=== PATIENT | female | born 1935 | race Caucasian/White ===

== ENCOUNTER → 2017-09-15 16:01 | Outpatient (CLI) | payer MEDICARE, OTHER, SELFPAY | PROVIDERS: Family Provider Family Medicine; PCP Family Medicine; Visit Provider Family Medicine | DX: J02.9 Acute pharyngitis, unspecified (principal) | CPT/HCPCS: 87070; 87077; 87186 ==

== ENCOUNTER 2018-01-16 21:08 | Inpatient (IN) | payer MEDICARE, OTHER, SELFPAY ==
[2018-01-16 21:09] VITALS: BP 222/70; PULSE 69; RESP 18; TEMP 36.8; O2SAT 96; BMI 33.0
--- NOTE | 2018-01-16 21:14 | EKG12_ITS ---
Test Reason : CP Blood Pressure : / mmHG Vent. Rate : 070 BPM Atrial Rate : 070 BPM P-R Int : 150 ms QRS Dur : 082 ms QT Int : 394 ms P-R-T Axes : 073 016 049 degrees QTc Int : 425 ms Normal sinus rhythm Consider Left ventricular hypertrophy Abnormal ECG Confirmed by LEO WYNN, PORTIA ([id number]), acquisitions editor RIVERA EASTON ([id number]) on 01/19/2018 1:26:39 PM Referred By: DR DENNISON Confirmed By:PORTIA BAILEY MD
--- NOTE | 2018-01-16 21:18 | RAD_ITS ---
STUDY: X-RAY CHEST REASON FOR EXAM: Female, 82 years old. Chest pain TECHNIQUE: Single frontal view COMPARISON: None. FINDINGS: The lungs are clear and expanded. There is no demonstrated pleural abnormality. Normal size heart. Normal mediastinum and to. Normal visualized pulmonary arteries. Calcified aortic arch and descending thoracic aorta. Degenerative changes of the thoracic spine. Mild degenerative changes of the shoulders. There is no demonstrated abnormality of the visualized soft tissue structures of the upper abdomen. RAD/Chest 1 View (Portable) IMPRESSION: Normal x-ray examination of the chest. Electronically Signed: Alex Parks DO at 21:54 EDT Tel [phone], Service support ,
[2018-01-16 21:36] LABS: Absolute Lymphocyte Count 2.24 X10^3/ul (0.83-4.51); Absolute Neutrophil Count 5.2 X10^3/uL (2.0-7.7); Basophil# 0.05 X10^3/uL; Basophil% 0.6 % (0-1); Eosinophils% 2.3 % (0-5); Hematocrit 39.6 % (37-47); Hemoglobin 13.2 g/dl (12.0-15.0); Lymphocyte # 2.24 X10^3/ul (4.0); Lymphocyte % 25.7 % (19-41); Mean Corp Hgb Conc 33.3 g/gl (32-36); Mean Corpuscular Hgb 31.3 pg (27.0-32.0); Mean Corpuscular Volume 93.8 fL (81-99); Mean Platelet Vol. 9.8 fl (6.2-12.0); Monocyte# 1.05 X10^3/uL; Monocyte% 12.1 % (0-10); Neutrophil # 5.16 X10^3/uL (2.7-7.7); Neutrophil % 59.2 % (47-70); POSITIVE COUNT NO; POSITIVE DIFFERENTIAL NO; POSITIVE MORPHOLOGY NO; Platelet Count 225 K/mm3 (150-450); RBC Distribution Width CV 14.1 % (11.6-14.6); RBC Distribution Width SD 48.1 fl (35.1-43.9); Red Blood Count 4.22 M/mm3 (4.2-5.4); White Blood Count 8.7 K/mm3 (4.4-11.0)
[2018-01-16 21:50] LABS: Anion Gap 7 (5-15); BUN 23 mg/dL (7-18); Calcium,Total 9.1 mg/dL (8.5-10.1); Chloride 101 mmol/L (98-107); Creatinine, Serum 1.28 mg/dL (0.55-1.02); EST Glomerular Filtration Rate 43 mL/min (>60); Est Glom Filt Rate - Afr Amer 52 mL/min (>60); Estimated Creatinine Clearance 25.18 ml/min; Glucose 132 mg/dL (74-106); Potassium 3.8 mmol/L (3.5-5.1); Sodium Level 137 mmol/L (136-145)
--- NOTE | 2018-01-16 22:14 | ED.VISSUMM ---
- ER Visit Summary Date of Service: 01/16/18 Chief Complaint: Chest pain History of Present Illness: The patient is a [address] Cassy Casiano. She reports that she has had intermittent chest pain for the past 2 weeks. She reports that this evening she was walking around the store and had a severe left-sided chest discomfort that she describes as indigestion. States pain is 6 out of 10 at worst and she is pain-free currently. States that was much worse when she walked around. It resolved with rest. There is no associated nausea, vomiting, diaphoresis, shortness of breath. Physical Examination: Vitals: Stable. Afebrile. General: Well-nourished and well-developed. Head: Normocephalic atraumatic. Neck: Supple, no lymphadenopathy. No JVD. Nontender. Cardiovascular: Regular rate and rhythm. No murmurs. Respiratory: No respiratory distress. Clear to auscultation bilaterally. Abdominal: Soft, nontender, nondistended, normal bowel sounds. No guarding, rebound, or peritoneal signs. Back: Nontender. Extremities: Nontender, no edema. Skin: Normal color, no rash. Neurologic: Alert and oriented ?3. Cranial nerves II through XII are intact. Normal strength and sensation. Psych: Normal affect. Test Results: EKG is sinus at [address] changes. There is no significant change from 2005. Troponin is negative. INR is 1.0. Chem-7 is more for BUN of 23, creatinine 1.28, glucose 132. CBC is more for monocytes 12. Chest x-ray is normal. Emergency Department Course and Treatment: Patient was treated the dose of aspirin. She is resting comfortably. Treatment Plan: Patient's pain is certainly concerning for a cardiac etiology. She will be admitted to the hospital for further relation and treatment. Disposition: Admitted in stable condition. Impression: 1. Chest pain. 2. LUIS score 4. This note was generated with [employer] dictation software. It may contain incorrect words, spelling, and punctuation that were not noted in review of the chart prior to signing ED Disposition - Plan for ED Patient: Chief Complaint: Chest Pain Referrals: Remy Turner DO [Primary Care Provider] -
--- NOTE | 2018-01-16 22:21 | EKG12_ITS ---
Test Reason : CP Blood Pressure : / mmHG Vent. Rate : 060 BPM Atrial Rate : 060 BPM P-R Int : 160 ms QRS Dur : 086 ms QT Int : 440 ms P-R-T Axes : 069 011 033 degrees QTc Int : 440 ms Normal sinus rhythm Nonspecific ST abnormality Abnormal ECG Confirmed by LEO WYNN, PORTIA ([id number]), publications editor RIVERA EASTON ([id number]) on 01/21/2018 11:34:46 AM Referred By: Confirmed By:PORTIA BAILEY MD
--- NOTE | 2018-01-16 22:36 | PCM.HP.STD ---
Problem List (1) Hypothyroidism Status: Chronic (2) Hyperlipidemia Status: Chronic Qualifiers: (3) HTN (hypertension), benign Status: Chronic (4) S/P coronary artery stent placement Status: Chronic Comment: RCA/LAD (5) CAD (coronary artery disease) Status: Chronic Qualifiers: History of Present Illness Date of Admission: 01/16/18 Chief Complaint: Chest pain. The patient is a 82 year old F with past medical history as mentioned above presented to the medicine because of chest pain. Her symptoms has been intermittent 2 weeks, intermittent chest pain, starts in the epigastric region, then goes to the chest, brought on when she eats or with walking, mild dull aching pain, 3-4 out of 10 in severity, radiates to her neck as well as left upper arm, sometimes improved with rest and without she denied associated nausea vomiting. She denied lightheadedness, diaphoresis, syncope or presyncope. She mentioned that she has been using Prilosec because she thinks is because of reflux disease but it is not helping. In the emergency department, initial blood pressure was high 222/70 and when I saw the patient, it was 187/61. She was afebrile, heart rate stable, pulse ox is normal on room air. Her routine blood work was remarkable for creatinine 1.28, otherwise normal. Her EKG revealed normal sinus rhythm without evidence of acute ischemic changes or cardiac arrhythmias. Troponin is negative. Chest x-ray showed no acute findings. She is being admitted for chest pain for evaluation. Past Medical History Past Medical History (Chronic Problems): Chronic Problems (Last Updated 01/16/18 @ 22:23 by Abebe Sullivan MD) Hypothyroidism (Chronic) Aortic insufficiency (Chronic) Hyperlipidemia (Chronic) HTN (hypertension), benign (Chronic) S/P coronary artery stent placement (Chronic ~2004) RCA/LAD CAD (coronary artery disease) (Chronic) Medical History: Medical History (Last Updated 01/16/18 @ 22:23 by Abebe Sullivan MD) Aortic insufficiency (Chronic) I35.1 Hyperlipidemia (Chronic) E78.5 HTN (hypertension), benign (Chronic) I10 CAD (coronary artery disease) (Chronic) I25.10 Allergies Iodinated Contrast- Oral and IV Dye Allergy (Intermediate, Verified 06/10/17 09:41) Rash ramipril [From Altace] Adverse Reaction (Severe, Verified 06/10/17 09:41) cough Home Medications: Ambulatory Orders Medication Instructions Recorded aspirin 325 mg tablet,delayed 325 mg PO QDAY 06/10/17 release atorvastatin 10 mg tablet PO 90 Days 06/10/17 levothyroxine 88 mcg tablet PO 90 Days 06/10/17 nitroglycerin 0.4 mg sublingual 0.4 mg SUBLINGUAL Q5-15M PRN 10 06/10/17 tablet Days #2880 tab metoprolol succinate ER 50 mg 50 mg PO QDAY 90 Days #90 tab 06/11/17 tablet,extended release 24 hr triamterene 37.5 1 cap PO QDAY 90 Days #90 cap 06/11/17 mg-hydrochlorothiazide 25 mg capsule potassium chloride ER 10 mEq 10 meq PO QDAY 06/17/17 tablet,extended release losartan 25 mg tablet 25 mg PO BID #180 tab 08/14/17 Surgical History: Surgical History (Last Updated 06/10/17 @ 09:45 by ERYN White) S/P coronary artery stent placement (Chronic) Onset Date: ~2003 Z95.5 RCA/LAD Surgical History: cholecystectomy, - - Cardiac stents. 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 Denies: Chest Tightness, Edema, Heaviness, Light Headedness, Palpitations, Paroxysmal Noc. Dyspnea, Syncope Respiratory: Denies: Cough, Hemoptysis, Pleuritic Pain, Shortness of Breath, Sputum production Gastrointestinal: Denies: Abdominal Pain, Constipation, Diarrhea, Nausea, Vomiting Genitourinary: Denies: Dysuria, Frequency, Hematuria Musculoskeletal: Denies: Arm Pain, Back Pain, Foot Pain Skin: Denies: Dryness, Rash Neurological: Denies: Balance problems, Change in Speech, Slurred speech, Confusion, Headaches, Incoordination, Numbness, Tingling Psychiatric: Denies: Anxiety, Depression Endocrine: Denies: Change in Body Habitus, Polydipsia VTE Information - Inpt Only VTE Present on Admission: No VTE Mechan Device Prophylaxis: None VTE Pharm Prophylaxis ordered?: Yes - Physical Exam General: Alert, Oriented x3, Cooperative, No apparent distress HEENT: Atraumatic, PERRLA, EOMI, Normocephalic Oral: Moist Mucosa, No Gingival or Mucosal Lesions/ Ulcerations Neck: Supple, No JVD, Negative Carotid Bruits, Trachea Midline, Thyroid Normal Size and Texture Lungs: Clear to auscultation, No rhonchi, No wheeze, No rales, Diminished Cardiovascular: Regular rate, Regular Rhythm, Normal S1, Normal S2, PMI Normal Abdomen: Bowel Sounds Present, Soft, Non Tender, Non-Distended, No Hepato-splenomegaly Extremities: No clubbing, No cyanosis, No edema Skin: No rashes, No breakdown Lymphatic: No Cervical, Supraclavicular, or Inguinal Adenopathy Neurological: Cranial nerves II-XII grossly intact, Motor Exam 5/5 strength throughout Psych/Mental Status: Normal Affect, Appropriate, Alert and oriented to time, place, person, mood and affect Vital Signs Temp Pulse Resp BP Pulse Ox 98.2 F 69 18 222/70 H 96 01/16/18 21:09 01/16/18 21:09 01/16/18 21:09 01/16/18 21:09 01/16/18 21:09 Oxygen Flow Rate (L/min) 2 Oxygen Delivery Method Nasal Cannula Weight: 169 lb Body Mass Index (BMI) 33.0 Laboratory Tests Past 24 Hrs 01/16/18 01/16/18 01/16/18 21:15 21:15 21:15 WBC 8.7 RBC 4.22 Hgb 13.2 Hct 39.6 MCV 93.8 MCH 31.3 MCHC 33.3 RDW 14.1 RDW Differential 48.1 H Plt Count 225 MPV 9.8 Immature Gran % (Auto) 0.100 Neut % (Auto) 59.2 Lymph % (Auto) 25.7 [place] % (Auto) 12.1 H Eos % (Auto) 2.3 Baso % (Auto) 0.6 Absolute Neuts (auto) 5.2 Absolute Lymphs (auto) 2.24 Total Counted Not Reportable PT 13.0 INR 1.0 Sodium 137 Potassium 3.8 Chloride 101 Carbon Dioxide 29.0 Anion Gap 7 BUN 23 H Creatinine 1.28 H Estim Creat Clear Calc 25.18 Est GFR (MDRD) Af Amer 52 L Est GFR (MDRD) Non-Af 43 L BUN/Creatinine Ratio 18.0 Glucose 132 H Calcium 9.1 Troponin I < 0.015 Clinical Impression(s) from Imaging Studies Chest X-Ray 01/16/18 21:18 IMPRESSION: Normal x-ray examination of the chest. Electronically Signed: Alex Parks DO at 21:54 EDT Tel [phone], Service support , Assessment/Plan This is an 82 years old female patient presented to the emergency room because of chest pain and she is being admitted for evaluation #1 chest pain: Risk factors of history of CAD hypertension and hyperlipidemia. Her LUIS score is 4. EKG revealed no acute ischemic changes. Troponin is negative. Chest x-ray showed no acute findings. Plan: Admit to PCU for observation, cardiac monitoring, serial cardiac enzymes, repeat EKG tomorrow morning, nitroglycerin as needed, IV Zofran as needed, nuclear stress test tomorrow morning if cardiac enzymes are negative. #2 CAD status post stents: Plan as above, continue aspirin, statins, beta blockers and losartan. #3 hypertension: Blood pressure is elevated at this time. Plan to continue home medications when home medication list updated, start IV hydralazine as needed. #4 hypothyroidism: Continue levothyroxine. #5 hyperlipidemia: Continue statins. #6 DVT prophylaxis: Subcu heparin. This note was generated with [employer] dictation software. It may contain incorrect words, spelling, and punctuation that were not noted in checking the note before signing. Code Visit OBSV E&M: 65361 Initial observation care L3
--- NOTE | 2018-01-16 22:40 | HP.PCM_ITS ---
Problem List (1) Hypothyroidism Status: Chronic (2) Hyperlipidemia Status: Chronic Qualifiers: (3) HTN (hypertension), benign Status: Chronic (4) S/P coronary artery stent placement Status: Chronic Comment: RCA/LAD (5) CAD (coronary artery disease) Status: Chronic Qualifiers: History of Present Illness Date of Admission: 01/16/18 Chief Complaint: Chest pain. The patient is a 82 year old F with past medical history as mentioned above presented to the medicine because of chest pain. Her symptoms has been intermittent 2 weeks, intermittent chest pain, starts in the epigastric region, then goes to the chest, brought on when she eats or with walking, mild dull aching pain, 3-4 out of 10 in severity, radiates to her neck as well as left upper arm, sometimes improved with rest and without she denied associated nausea vomiting. She denied lightheadedness, diaphoresis, syncope or presyncope. She mentioned that she has been using Prilosec because she thinks is because of reflux disease but it is not helping. In the emergency department , initial blood pressure was high 222/70 and when I saw the patient, it was 187/ 61. She was afebrile, heart rate stable, pulse ox is normal on room air. Her routine blood work was remarkable for creatinine 1.28, otherwise normal. Her EKG revealed normal sinus rhythm without evidence of acute ischemic changes or cardiac arrhythmias. Troponin is negative. Chest x-ray showed no acute findings. She is being admitted for chest pain for evaluation. Past Medical History Past Medical History (Chronic Problems): Chronic Problems (Last Updated 01/16/18 @ 22:23 by Abebe Sullivan MD) Hypothyroidism (Chronic) Aortic insufficiency (Chronic) Hyperlipidemia (Chronic) HTN (hypertension), benign (Chronic) S/P coronary artery stent placement (Chronic ~2004) RCA/LAD CAD (coronary artery disease) (Chronic) Medical History: Medical History (Last Updated 01/16/18 @ 22:23 by Abebe Sullivan MD) Aortic insufficiency (Chronic) I35.1 Hyperlipidemia (Chronic) E78.5 HTN (hypertension), benign (Chronic) I10 CAD (coronary artery disease) (Chronic) I25.10 Allergies Iodinated Contrast- Oral and IV Dye Allergy (Intermediate, Verified 06/10/17 09: 41) Rash ramipril [From Altace] Adverse Reaction (Severe, Verified 06/10/17 09:41) cough Home Medications: Ambulatory Orders Medication Instructions Recorded aspirin 325 mg tablet,delayed 325 mg PO QDAY 06/10/17 release atorvastatin 10 mg tablet PO 90 Days 06/10/17 levothyroxine 88 mcg tablet PO 90 Days 06/10/17 nitroglycerin 0.4 mg sublingual 0.4 mg SUBLINGUAL Q5-15M PRN 10 06/10/17 tablet Days #2880 tab metoprolol succinate ER 50 mg 50 mg PO QDAY 90 Days #90 tab 06/11/17 tablet,extended release 24 hr triamterene 37.5 1 cap PO QDAY 90 Days #90 cap 06/11/17 mg-hydrochlorothiazide 25 mg capsule potassium chloride ER 10 mEq 10 meq PO QDAY 06/17/17 tablet,extended release losartan 25 mg tablet 25 mg PO BID #180 tab 08/14/17 Surgical History: Surgical History (Last Updated 06/10/17 @ 09:45 by ERYN White) S/P coronary artery stent placement (Chronic) Onset Date: ~2003 Z95.5 RCA/LAD Surgical History: cholecystectomy, - - Cardiac stents. 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 Denies: Chest Tightness, Edema, Heaviness , Light Headedness, Palpitations, Paroxysmal Noc. Dyspnea, Syncope Respiratory: Denies: Cough, Hemoptysis, Pleuritic Pain, Shortness of Breath, Sputum production Gastrointestinal: Denies: Abdominal Pain, Constipation, Diarrhea, Nausea, Vomiting Genitourinary: Denies: Dysuria, Frequency, Hematuria Musculoskeletal: Denies: Arm Pain, Back Pain, Foot Pain Skin: Denies: Dryness, Rash Neurological: Denies: Balance problems, Change in Speech, Slurred speech, Confusion, Headaches, Incoordination, Numbness, Tingling Psychiatric: Denies: Anxiety, Depression Endocrine: Denies: Change in Body Habitus, Polydipsia VTE Information - Inpt Only VTE Present on Admission: No VTE Mechan Device Prophylaxis: None VTE Pharm Prophylaxis ordered?: Yes - Physical Exam General: Alert, Oriented x3, Cooperative, No apparent distress HEENT: Atraumatic, PERRLA, EOMI, Normocephalic Oral: Moist Mucosa, No Gingival or Mucosal Lesions/ Ulcerations Neck: Supple, No JVD, Negative Carotid Bruits, Trachea Midline, Thyroid Normal Size and Texture Lungs: Clear to auscultation, No rhonchi, No wheeze, No rales, Diminished Cardiovascular: Regular rate, Regular Rhythm, Normal S1, Normal S2, PMI Normal Abdomen: Bowel Sounds Present, Soft, Non Tender, Non-Distended, No Hepato- splenomegaly Extremities: No clubbing, No cyanosis, No edema Skin: No rashes, No breakdown Lymphatic: No Cervical, Supraclavicular, or Inguinal Adenopathy Neurological: Cranial nerves II-XII grossly intact, Motor Exam 5/5 strength throughout Psych/Mental Status: Normal Affect, Appropriate, Alert and oriented to time, place, person, mood and affect Vital Signs Temp Pulse Resp BP Pulse Ox 98.2 F 69 18 222/70 H 96 01/16/18 21:09 01/16/18 21:09 01/16/18 21:09 01/16/18 21:09 01/16/18 21:09 Oxygen Flow Rate (L/min) 2 Oxygen Delivery Method Nasal Cannula Weight: 169 lb Body Mass Index (BMI) 33.0 Laboratory Tests Past 24 Hrs 01/16/18 01/16/18 01/16/18 21:15 21:15 21:15 WBC 8.7 RBC 4.22 Hgb 13.2 Hct 39.6 MCV 93.8 MCH 31.3 MCHC 33.3 RDW 14.1 RDW Differential 48.1 H Plt Count 225 MPV 9.8 Immature Gran % (Auto) 0.100 Neut % (Auto) 59.2 Lymph % (Auto) 25.7 [place] % (Auto) 12.1 H Eos % (Auto) 2.3 Baso % (Auto) 0.6 Absolute Neuts (auto) 5.2 Absolute Lymphs (auto) 2.24 Total Counted Not Reportable PT 13.0 INR 1.0 Sodium 137 Potassium 3.8 Chloride 101 Carbon Dioxide 29.0 Anion Gap 7 BUN 23 H Creatinine 1.28 H Estim Creat Clear Calc 25.18 Est GFR (MDRD) Af Amer 52 L Est GFR (MDRD) Non-Af 43 L BUN/Creatinine Ratio 18.0 Glucose 132 H Calcium 9.1 Troponin I < 0.015 Clinical Impression(s) from Imaging Studies Chest X-Ray 01/16/18 21:18 IMPRESSION: Normal x-ray examination of the chest. Electronically Signed: Alex Parks DO at 21:54 EDT Tel [phone], Service support , Assessment/Plan This is an 82 years old female patient presented to the emergency room because of chest pain and she is being admitted for evaluation #1 chest pain: Risk factors of history of CAD hypertension and hyperlipidemia. Her LUIS score is 4. EKG revealed no acute ischemic changes. Troponin is negative. Chest x-ray showed no acute findings. Plan: Admit to PCU for observation, cardiac monitoring, serial cardiac enzymes, repeat EKG tomorrow morning, nitroglycerin as needed, IV Zofran as needed, nuclear stress test tomorrow morning if cardiac enzymes are negative. #2 CAD status post stents: Plan as above, continue aspirin, statins, beta blockers and losartan. #3 hypertension: Blood pressure is elevated at this time. Plan to continue home medications when home medication list updated, start IV hydralazine as needed. #4 hypothyroidism: Continue levothyroxine. #5 hyperlipidemia: Continue statins. #6 DVT prophylaxis: Subcu heparin. This note was generated with [employer] dictation software. It may contain incorrect words, spelling, and punctuation that were not noted in checking the note before signing. Code Visit OBSV E&M: 24129 Initial observation care L3
--- NOTE | 2018-01-16 22:50 | NURSING ---
Called [facility] ED charge, okay to bring patient to floor.
[2018-01-16 22:56] VITALS: BP 163/73; BP 193/72; PULSE 74; RESP 16; TEMP 36.8; O2SAT 94
[2018-01-16 23:02] VITALS: BMI 33.4
[2018-01-16 23:17] VITALS: BMI 33.5
[2018-01-16] MEDS: 0.9% Normal Saline 1,000 ML 75 ML IV (23:21)
[2018-01-16 23:37] VITALS: BP 166/67
[2018-01-16 23:46] VITALS: PULSE 59
[2018-01-17] VITALS (14 sets, daily range): BP systolic 139–186; BP diastolic 38–80; PULSE 52–65; RESP 14–16; TEMP 36.4–37.1; O2SAT 93–97
[2018-01-17 03:49] LABS: Absolute Lymphocyte Count 2.38 X10^3/ul (0.83-4.51); Absolute Neutrophil Count 3.7 X10^3/uL (2.0-7.7); Basophil# 0.04 X10^3/uL; Basophil% 0.6 % (0-1); Eosinophil# 0.18 X10^3/uL; Eosinophils% 2.6 % (0-5); Hematocrit 36.2 % (37-47); Hemoglobin 12.2 g/dl (12.0-15.0); Lymphocyte # 2.38 X10^3/ul (4.0); Lymphocyte % 34.2 % (19-41); Mean Corp Hgb Conc 33.7 g/gl (32-36); Mean Corpuscular Hgb 31.7 pg (27.0-32.0); Mean Platelet Vol. 9.8 fl (6.2-12.0); Monocyte# 0.59 X10^3/uL; Monocyte% 8.5 % (0-10); Neutrophil # 3.74 X10^3/uL (2.7-7.7); Neutrophil % 53.8 % (47-70); POSITIVE COUNT NO; POSITIVE DIFFERENTIAL NO; POSITIVE MORPHOLOGY NO; Platelet Count 205 K/mm3 (150-450); RBC Distribution Width CV 13.8 % (11.6-14.6); RBC Distribution Width SD 46.1 fl (35.1-43.9); Red Blood Count 3.85 M/mm3 (4.2-5.4)
[2018-01-17 03:50] LABS: International Normalized Ratio 1.1
[2018-01-17 03:51] LABS: Partial Thromboplast Time 25.9 Seconds (24.1-36.2)
[2018-01-17 04:09] LABS: Anion Gap 9 (5-15); BUN 21 mg/dL (7-18); BUN/Creat Ratio 18.6 RATIO (10-20); Calcium,Total 8.6 mg/dL (8.5-10.1); Chloride 104 mmol/L (98-107); Creatinine, Serum 1.13 mg/dL (0.55-1.02); EST Glomerular Filtration Rate 49 mL/min (>60); Est Glom Filt Rate - Afr Amer 60 mL/min (>60); Estimated Creatinine Clearance 28.52 ml/min; Glucose 127 mg/dL (74-106); Potassium 3.8 mmol/L (3.5-5.1); Sodium Level 142 mmol/L (136-145)
[2018-01-17] MEDS: Losartan Potassium 25 MG Tablet PO ×2 (05:06→21:15)
[2018-01-17] MEDS: Levothyroxine 88 MCG Tablet PO (05:06)
[2018-01-17] MEDS: Aspirin E.C. 325 MG Tablet PO (05:06)
--- NOTE | 2018-01-17 05:55 | EKG12_ITS ---
Test Reason : AM EKG Blood Pressure : / mmHG Vent. Rate : 061 BPM Atrial Rate : 061 BPM P-R Int : 158 ms QRS Dur : 086 ms QT Int : 438 ms P-R-T Axes : 070 010 039 degrees QTc Int : 440 ms Normal sinus rhythm Left ventricular hypertrophy Abnormal ECG Confirmed by LEO WYNN, PORTIA ([id number]), editor managing director RIVERA EASTON ([id number]) on 01/21/2018 11:37:00 AM Referred By: DR RUBY Confirmed By:PORTIA BAILEY MD
--- NOTE | 2018-01-17 07:40 | PCM.PN.HOSP ---
Subjective: No significant issues overnight Objective: No acute distress Vitals/I&O's: Vital Signs Temp Pulse Resp BP Pulse Ox 98.4 F 59 L 14 154/80 H 94 01/17/18 04:56 01/17/18 04:56 01/17/18 04:56 01/17/18 04:56 01/17/18 04:56 Oxygen Delivery Method Room Air Weight: 171 lb 4.787 oz Body Mass Index (BMI) 33.4 Intake and Output for Last 24 Hours 01/15/18 01/16/18 01/17/18 23:59 23:59 23:59 Intake Total 223 / 223 439 / 439 Balance 223 / 223 439 / 439 General: Alert, Oriented x3, Cooperative Neck: No JVD Lungs: Clear to auscultation Cardiovascular: Regular rate, Regular Rhythm, Normal S1, Normal S2, Murmur - Soft over outflow tract Abdomen: Bowel Sounds Present, Soft, - - Mild epigastric tenderness no rebound or guarding Extremities: No edema, No Calf Tenderness, Peripheral Pulses Normal Skin: No rashes Musculoskeletal: No Muscle Wasting Neurological: - - Nonfocal Psych/Mental Status: Normal Affect, Appropriate Laboratory Results 01/17/18 00:30: Troponin I < 0.015 01/17/18 03:23: Sodium 142, Potassium 3.8, Chloride 104, Carbon Dioxide 29.0, Anion Gap 9, BUN 21 H, Creatinine 1.13 H, Estim Creat Clear Calc 28.52, Est GFR (MDRD) Af Amer 60, Est GFR (MDRD) Non-Af 49 L, BUN/Creatinine Ratio 18.6, Glucose 127 H, Calcium 8.6 01/17/18 03:23: Troponin I < 0.015 01/17/18 03:23: WBC 7.0, RBC 3.85 L, Hgb 12.2, Hct 36.2 L, MCV 94.0, MCH 31.7, MCHC 33.7, RDW 13.8, RDW Differential 46.1 H, Plt Count 205, MPV 9.8, Immature Gran % (Auto) 0.300, Neut % (Auto) 53.8, Lymph % (Auto) 34.2, [place] % (Auto) 8.5, Eos % (Auto) 2.6, Baso % (Auto) 0.6, Absolute Neuts (auto) 3.7, Absolute Lymphs (auto) 2.38, Total Counted Not Reportable 01/17/18 03:23: PT 14.0, INR 1.1, APTT 25.9 Current Medications Acetaminophen (Tylenol) 650 mg PO Q6H PRN PRN PRN Reason: Fever, headache, pain Al Hydroxide/Mg Hydroxide (Mylanta Ii) 15 ml PO Q6H PRN PRN PRN Reason: HEARTBURN OR INDIGESTION [facility] Last Admin: 01/17/18 05:06 Dose: 325 mg Atorvastatin Calcium (Lipitor) 10 mg PO QHS [facility] Heparin Sodium (Porcine) (Heparin Na) 5,000 unit SC Q8 [facility] Last Admin: 01/16/18 23:54 Dose: Not Given Hydralazine HCl (Apresoline) 25 mg PO Q6H PRN PRN PRN Reason: SBP > 160 Sodium Chloride () 1,000 mls @ 75 mls/hr IV .[id number] [facility] Stop: 01/17/18 12:01 Last Admin: 01/16/18 23:21 Dose: 75 mls/hr Sodium Chloride () 250 mls @ 15 mls/hr IV .[id number] PRN PRN Reason: SALINE FLUSH Levothyroxine Sodium (Synthroid) 88 mcg PO DAILY@0600 [facility] Last Admin: 01/17/18 05:06 Dose: 88 mcg Losartan Potassium (Cozaar) 25 mg PO BID [facility] Last Admin: 01/17/18 05:06 Dose: 25 mg Magnesium Hydroxide (Milk Of Magnesia) 30 ml PO DAILY PRN PRN Reason: Constipation Metoprolol Succinate (Toprol Xl (Beta Tg)) 50 mg PO DAILY [facility] Nitroglycerin (Nitrostat) 0.4 mg SUBLINGUAL Q5M PRN PRN Reason: CHEST PAIN Ondansetron HCl (Zofran) 4 mg IV Q8H PRN PRN PRN Reason: NAUSEA/VOMITING Pantoprazole Sodium (Protonix) 40 mg PO DAILY [facility] Potassium Chloride (K-Dur) 10 meq PO DAILY [facility] Sodium Chloride () 5 - 30 ml IV UD PRN PRN Reason: SALINE FLUSH Triamterene/HCTZ (Dyazide (G)) 1 cap PO DAILY [facility] Medical Necessity - Tobacco Use Smoking Status: Never smoker Assessment/Plan This is an 82-year-old patient who presented to the emergency department with substernal chest pain radiating to her left arm. She also noted epigastric pain. This has been occurring after eating meals. Yesterday she was at a festival and had chicken, vegetables, and dessert, pain started afterwards. She denies diaphoresis, nausea vomiting, change in bowel or bladder habits, syncope presyncope. She has ruled out for acute coronary syndrome. She will undergo stress testing today. The patient reports an EGD in the past which was unrevealing. She had trialed an omeprazole at home which seemed to provide some benefit. 1. Chest pain --apical and atypical features Heart score = 4 Risk factors to include CAD, hypertension, hyperlipidemia, EKG no acute ischemic changes, no evidence of ACS, chest x-ray negative, nothing clinically to suggest thromboembolic. Plan: Nuclear stress test today, continue PPI 2. CAD status post PCI/stent --aspirin, statin, beta-tg, losartan 3. Hypertension Improved control Continue losartan, metoprolol, as needed hydralazine 4. Hypothyroidism Continue levothyroxine 5. Hyperlipidemia On statin 6. DVT prophylaxis Subcu heparin If stress test is favorable, suggest home with scheduled PPI Code Visit OBSV E&M: [id number] Subsequent observation care L2
--- NOTE | 2018-01-17 07:47 | PN_ITS ---
Subjective: No significant issues overnight Objective: No acute distress Vitals/I&O's: Vital Signs Temp Pulse Resp BP Pulse Ox 98.4 F 59 L 14 154/80 H 94 01/17/18 04:56 01/17/18 04:56 01/17/18 04:56 01/17/18 04:56 01/17/18 04:56 Oxygen Delivery Method Room Air Weight: 171 lb 4.787 oz Body Mass Index (BMI) 33.4 Intake and Output for Last 24 Hours 01/15/18 01/16/18 01/17/18 23:59 23:59 23:59 Intake Total 223 / 223 439 / 439 Balance 223 / 223 439 / 439 General: Alert, Oriented x3, Cooperative Neck: No JVD Lungs: Clear to auscultation Cardiovascular: Regular rate, Regular Rhythm, Normal S1, Normal S2, Murmur - Soft over outflow tract Abdomen: Bowel Sounds Present, Soft, - - Mild epigastric tenderness no rebound or guarding Extremities: No edema, No Calf Tenderness, Peripheral Pulses Normal Skin: No rashes Musculoskeletal: No Muscle Wasting Neurological: - - Nonfocal Psych/Mental Status: Normal Affect, Appropriate Laboratory Results 01/17/18 00:30: Troponin I < 0.015 01/17/18 03:23: Sodium 142, Potassium 3.8, Chloride 104, Carbon Dioxide 29.0, Anion Gap 9, BUN 21 H, Creatinine 1.13 H, Estim Creat Clear Calc 28.52, Est GFR (MDRD) Af Amer 60, Est GFR (MDRD) Non-Af 49 L, BUN/Creatinine Ratio 18.6, Glucose 127 H, Calcium 8.6 01/17/18 03:23: Troponin I < 0.015 01/17/18 03:23: WBC 7.0, RBC 3.85 L, Hgb 12.2, Hct 36.2 L, MCV 94.0, MCH 31.7, MCHC 33.7, RDW 13.8, RDW Differential 46.1 H, Plt Count 205, MPV 9.8, Immature Gran % (Auto) 0.300, Neut % (Auto) 53.8, Lymph % (Auto) 34.2, [place] % (Auto) 8.5 , Eos % (Auto) 2.6, Baso % (Auto) 0.6, Absolute Neuts (auto) 3.7, Absolute Lymphs (auto) 2.38, Total Counted Not Reportable 01/17/18 03:23: PT 14.0, INR 1.1, APTT 25.9 Current Medications Acetaminophen (Tylenol) 650 mg PO Q6H PRN PRN PRN Reason: Fever, headache, pain Al Hydroxide/Mg Hydroxide (Mylanta Ii) 15 ml PO Q6H PRN PRN PRN Reason: HEARTBURN OR INDIGESTION [facility] Last Admin: 01/17/18 05:06 Dose: 325 mg Atorvastatin Calcium (Lipitor) 10 mg PO QHS [facility] Heparin Sodium (Porcine) (Heparin Na) 5,000 unit SC Q8 [facility] Last Admin: 01/16/18 23:54 Dose: Not Given Hydralazine HCl (Apresoline) 25 mg PO Q6H PRN PRN PRN Reason: SBP > 160 Sodium Chloride () 1,000 mls @ 75 mls/hr IV .[id number] [facility] Stop: 01/17/18 12:01 Last Admin: 01/16/18 23:21 Dose: 75 mls/hr Sodium Chloride () 250 mls @ 15 mls/hr IV .[id number] PRN PRN Reason: SALINE FLUSH Levothyroxine Sodium (Synthroid) 88 mcg PO DAILY@0600 [facility] Last Admin: 01/17/18 05:06 Dose: 88 mcg Losartan Potassium (Cozaar) 25 mg PO BID [facility] Last Admin: 01/17/18 05:06 Dose: 25 mg Magnesium Hydroxide (Milk Of Magnesia) 30 ml PO DAILY PRN PRN Reason: Constipation Metoprolol Succinate (Toprol Xl (Beta Tg)) 50 mg PO DAILY [facility] Nitroglycerin (Nitrostat) 0.4 mg SUBLINGUAL Q5M PRN PRN Reason: CHEST PAIN Ondansetron HCl (Zofran) 4 mg IV Q8H PRN PRN PRN Reason: NAUSEA/VOMITING Pantoprazole Sodium (Protonix) 40 mg PO DAILY [facility] Potassium Chloride (K-Dur) 10 meq PO DAILY [facility] Sodium Chloride () 5 - 30 ml IV UD PRN PRN Reason: SALINE FLUSH Triamterene/HCTZ (Dyazide (G)) 1 cap PO DAILY [facility] Medical Necessity - Tobacco Use Smoking Status: Never smoker Assessment/Plan This is an 82-year-old patient who presented to the emergency department with substernal chest pain radiating to her left arm. She also noted epigastric pain. This has been occurring after eating meals. Yesterday she was at a festival and had chicken, vegetables, and dessert, pain started afterwards. She denies diaphoresis, nausea vomiting, change in bowel or bladder habits, syncope presyncope. She has ruled out for acute coronary syndrome. She will undergo stress testing today. The patient reports an EGD in the past which was unrevealing. She had trialed an omeprazole at home which seemed to provide some benefit. 1. Chest pain --apical and atypical features Heart score = 4 Risk factors to include CAD, hypertension, hyperlipidemia, EKG no acute ischemic changes, no evidence of ACS, chest x-ray negative, nothing clinically to suggest thromboembolic. Plan: Nuclear stress test today, continue PPI 2. CAD status post PCI/stent --aspirin, statin, beta-tg, losartan 3. Hypertension Improved control Continue losartan, metoprolol, as needed hydralazine 4. Hypothyroidism Continue levothyroxine 5. Hyperlipidemia On statin 6. DVT prophylaxis Subcu heparin If stress test is favorable, suggest home with scheduled PPI Code Visit OBSV E&M: [id number] Subsequent observation care L2
[2018-01-17] MEDS: hydrALAZINE 25 MG Tablet PO (08:19)
[2018-01-17] MEDS: Triamterene 37.5MG/Hctz 25MG Capsule 1 CAP PO (10:29)
[2018-01-17] MEDS: Pantoprazole Sodium 40 MG Tablet PO (10:30)
[2018-01-17] MEDS: Metoprolol(XL)Succ 50 MG Tablet PO (10:30)
[2018-01-17] MEDS: 0.9% NaCl Peripheral Flush Adult/Peds IV (10:31)
--- NOTE | 2018-01-17 11:54 | STRESSREP ---
Stress Test Report Date: 01/17/2018 Procedure: Pharmacologic stress nuclear imaging study Indications: Chest pain; CAD; status post PCI Consent: Per the patient Procedure: The patient underwent pharmacologic (Regadenoson) evaluation with a peak heart rate of 84 beats per minute (60 predicted maximal heart rate) and a peak blood pressure of 190/66 mmHg. The baseline ECG demonstrated normal sinus rhythm. The peak pharmacologic ECG demonstrated no obvious ECG changes. The postinfusion ECG demonstrated the appearance of 0.5-1 mm of horizontal/upsloping ST segment depression in leads II, III, aVF, with gradual improvement towards baseline in recovery. There were no cardiac dysrhythmias pretest, during pharmacologic infusion, or recovery. The patient noted chest/jaw discomfort during pharmacologic infusion with gradual resolution towards baseline in recovery. The examination was discontinued secondary to completion of protocol. Impression: 1. Pharmacologic (Regadenoson) evaluation 2. Peak pharmacologic ECG with with no obvious ECG changes. The postinfusion ECG demonstrated the appearance of 0.5-1 mm horizontal/upsloping ST segment depression in leads II, III, and aVF with gradual improvement towards baseline in recovery. 3. There were no cardiac dysrhythmias during pharmacologic infusion or recovery 4. Nuclear images pending Myocardial perfusion imaging study: Technique: The patient was injected with 12.0 millicuries of technetium 99m Cardiolite and subsequently rest SPECT Cardiolite nuclear imaging was obtained in the horizontal long, vertical long, and short axis views. The patient underwent pharmacologic (Regadenoson) evaluation with a peak heart rate of 84 beats per minute (60 % percent predicted maximal heart rate) and a peak blood pressure of 190/66 mmHg. The patient was injected with 35.8 millicuries of technetium 99m Cardiolite and subsequently stress SPECT Cardiolite nuclear imaging was obtained in the horizontal long, vertical long, and short axis views. A gated Cardiolite study at peak stress was obtained. Interpretation: Rest and stress SPECT Cardiolite nuclear imaging status post realignment, normalization, pre-attenuation correction, and post attenuation correction demonstrate on the pre-attenuation correction images an area of diminished tracer uptake in the mid inferior segments status post stress. These findings are less noticeable on the post attenuation correction images and otherwise there appears to be relative uniform tracer uptake. There is end systolic thickening and brightening. The gated Cardiolite study demonstrates myocardial thickening and inward wall motion. The reported LVEF is 79 %. Impression: 1. Rest and stress SPECT Cardiolite nuclear imaging pre-attenuation correction demonstrates an area of diminished tracer uptake in the mid inferior segments status post stress which appears to be less prominent on the post attenuation correction images and otherwise appears to demonstrate relative uniform tracer uptake. The aforementioned findings appear concerning for an area of stress-induced myocardial ischemia although a component of soft tissue attenuation/artifact cannot necessarily be excluded. 2. The gated Cardiolite study reports an LVEF of 79 %. This note was generated with [employer] software. It may contain incorrect words, spelling, and punctuation that were not noted in checking the note before signing.
--- NOTE | 2018-01-17 12:08 | STRESSREP_ITS ---
Stress Test Report Date: 01/17/2018 Procedure: Pharmacologic stress nuclear imaging study Indications: Chest pain; CAD; status post PCI Consent: Per the patient Procedure: The patient underwent pharmacologic (Regadenoson) evaluation with a peak heart rate of 84 beats per minute (60 predicted maximal heart rate) and a peak blood pressure of 190/66 mmHg. The baseline ECG demonstrated normal sinus rhythm. The peak pharmacologic ECG demonstrated no obvious ECG changes. The postinfusion ECG demonstrated the appearance of 0.5-1 mm of horizontal/upsloping ST segment depression in leads II , III, aVF, with gradual improvement towards baseline in recovery. There were no cardiac dysrhythmias pretest, during pharmacologic infusion, or recovery. The patient noted chest/jaw discomfort during pharmacologic infusion with gradual resolution towards baseline in recovery. The examination was discontinued secondary to completion of protocol. Impression: 1. Pharmacologic (Regadenoson) evaluation 2. Peak pharmacologic ECG with with no obvious ECG changes. The postinfusion ECG demonstrated the appearance of 0.5-1 mm horizontal/upsloping ST segment depression in leads II, III, and aVF with gradual improvement towards baseline in recovery. 3. There were no cardiac dysrhythmias during pharmacologic infusion or recovery 4. Nuclear images pending Myocardial perfusion imaging study: Technique: The patient was injected with 12.0 millicuries of technetium 99m Cardiolite and subsequently rest SPECT Cardiolite nuclear imaging was obtained in the horizontal long, vertical long, and short axis views. The patient underwent pharmacologic (Regadenoson) evaluation with a peak heart rate of 84 beats per minute (60 % percent predicted maximal heart rate) and a peak blood pressure of 190/66 mmHg. The patient was injected with 35.8 millicuries of technetium 99m Cardiolite and subsequently stress SPECT Cardiolite nuclear imaging was obtained in the horizontal long, vertical long, and short axis views. A gated Cardiolite study at peak stress was obtained. Interpretation: Rest and stress SPECT Cardiolite nuclear imaging status post realignment, normalization, pre-attenuation correction, and post attenuation correction demonstrate on the pre-attenuation correction images an area of diminished tracer uptake in the mid inferior segments status post stress. These findings are less noticeable on the post attenuation correction images and otherwise there appears to be relative uniform tracer uptake. There is end systolic thickening and brightening. The gated Cardiolite study demonstrates myocardial thickening and inward wall motion. The reported LVEF is 79 %. Impression: 1. Rest and stress SPECT Cardiolite nuclear imaging pre-attenuation correction demonstrates an area of diminished tracer uptake in the mid inferior segments status post stress which appears to be less prominent on the post attenuation correction images and otherwise appears to demonstrate relative uniform tracer uptake. The aforementioned findings appear concerning for an area of stress- induced myocardial ischemia although a component of soft tissue attenuation/ artifact cannot necessarily be excluded. 2. The gated Cardiolite study reports an LVEF of 79 %. This note was generated with [employer] software. It may contain incorrect words, spelling, and punctuation that were not noted in checking the note before signing.
[2018-01-17] MEDS: Heparin Injection (Vial) 5,000 UNIT/ML VIAL 5000 UNIT SC ×2 (14:20→21:15)
--- NOTE | 2018-01-17 14:30 | CASEMGMT ---
RN NAVEEN Face to Face with patient for initial transition planning/care coordination assessment. RN CM introduced self and role at [facility]. Patient lying in bed, alert and oriented. Patient willing to participate in assessment and is able to answer all questions appropriately. Care providers, pharmacy, and demographics verified. See link attached. Patient wishes to discharge home, denies need for home health at this time. Patient states she has no further needs or concerns at this time. CM to follow for discharge planning needs that may arise. Disposition Plan: Patient to discharge home with family support and follow-up plans in place.
--- NOTE | 2018-01-17 15:11 | PCM.CONS.C ---
Problem List (1) Angina pectoris Status: Acute (2) CAD (coronary artery disease) Status: Chronic Qualifiers: Coronary Disease-Associated Artery/Lesion type: craig artery [place] vs. transplanted heart: craig heart (3) S/P coronary artery stent placement Status: Chronic Comment: RCA/LAD (4) Valvular heart disease Status: Chronic (5) Hyperlipidemia Status: Chronic Qualifiers: (6) HTN (hypertension), benign Status: Chronic (7) Hypothyroidism Status: Chronic Reason for Consult Date of Consultation: 01/17/18 History of Present Illness: The patient is a 82 year old white female with a past cardiovascular history which is included underlying hyperlipidemia, hypertension, CAD, status post PCI, valvular heart disease, superimposed upon hypothyroidism, who is referred for evaluation of concerns of angina pectoris and a subsequent abnormal pharmacologic stress nuclear imaging study. Patient did contact the [facility] on 01/17/2028 13 based upon having symptoms, over the last week, which were progressing, of epigastric discomfort, chest discomfort, left upper extremity discomfort, and jaw discomfort associated with some shortness of breath and dyspnea not relieved with gastrointestinal related therapy. She notes her symptoms were worsening. She presented to the [facility] emergency department on 01/16/2018 for further evaluation. At that time she appear to be without acute symptoms. Her cardiac enzymes were negative and her ECG demonstrated no acute ECG changes. She was placed in the hospital for further evaluation and care. She subsequently underwent a pharmacologic stress nuclear imaging study. During the study she had recurrent symptoms including jaw discomfort, postinfusion ECG changes, and post infusion myocardial perfusion changes (please see official report)-all of which raise concerns of angina pectoris and concerns of her underlying CAD process. She has denied orthopnea, PND, or peripheral pitting edema. There has been no near syncope or syncope. She states she did not use her nitroglycerin sublingual tablets for her symptoms. [] Past Medical History Allergies/Adverse Reactions: Allergies Iodinated Contrast- Oral and IV Dye Allergy (Intermediate, Verified 06/10/17 09:41) Rash ramipril [From Altace] Adverse Reaction (Severe, Verified 06/10/17 09:41) cough Home Medications: Ambulatory Orders Medication Instructions Recorded aspirin 325 mg tablet,delayed 325 mg PO QDAY 06/10/17 release atorvastatin 10 mg tablet 10 mg PO DAILY 90 Days 06/10/17 levothyroxine 88 mcg tablet 88 mcg PO DAILY 90 Days 06/10/17 nitroglycerin 0.4 mg sublingual 0.4 mg SUBLINGUAL Q5-15M PRN 10 06/10/17 tablet Days #2880 tab potassium chloride ER 10 mEq 10 meq PO QDAY 06/17/17 tablet,extended release Ascorbic Acid [Vitamin C] 500 mg PO DAILY 01/16/18 Calcium Citrate 600 mg PO DAILY 01/16/18 Co Q-10 100 mg PO DAILY 01/16/18 Fish Oil 01/16/18 Folic Acid 400 mcg PO DAILY@0800 01/16/18 Losartan Potassium [Cozaar] 25 mg PO BID 01/16/18 Metoprolol Succinate [Toprol Xl] 50 mg PO QDAY 01/16/18 Multivitamin [Daily Multiple 1 each PO DAILY 01/16/18 Vitamin] Niacin [Endur-Acin] 500 mg PO DAILY 01/16/18 Triamterene/Hydrochlorothiazid 1 cap PO QDAY 01/16/18 [Dyazide 37.5-25 Capsule] Past Medical History (Chronic Problems): Chronic Problems (Last Updated 01/16/18 @ 22:23 by Abebe Sullivan MD) Valvular heart disease (Chronic) Hypothyroidism (Chronic) Aortic insufficiency (Chronic) Hyperlipidemia (Chronic) HTN (hypertension), benign (Chronic) S/P coronary artery stent placement (Chronic ~2003) RCA/LAD CAD (coronary artery disease) (Chronic) Surgical History: angioplasty, cholecystectomy, - - Cardiac stents. 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 Denies: Orthopnea, PND, Peripheral Edema, Palpitations, Lightheadedness, Dizziness, Near Syncope, Syncope Respiratory: Reports: Shortness of Breath. Denies: Cough, Sputum Production, Hemoptysis Gastrointestinal: Denies: Hematemesis, Hematochezia, Melena Genitourinary: Denies: Dysuria, Hematuria Skin: Denies: Rash Subjectve: This is an 82-year-old white female who appears to be resting comfortably at the moment in no acute distress. Objective: Vital Signs Temp Pulse Resp BP Pulse Ox 98.6 F 64 16 144/43 H 95 01/17/18 14:10 01/17/18 14:10 01/17/18 14:10 01/17/18 14:10 01/17/18 14:10 Oxygen Delivery Method Room Air General: Awake, Alert, Oriented x 3, Cooperative, No Acute Distress HEENT: Atraumatic, Normocephalic, PERRL, EOMI, Sclera Non Icteric Oral: Moist Mucosa Neck: Supple, Good ROM, No JVD Lungs: Clear to auscultation Cardiovascular: Regular Rhythm, Normal S1, Normal S2 Murmur Murmur: Grade 3/6, Mid Systolic, LLSB, LVOT, Sternal Notch - 2/6 diastolic murmur at lower left sternal border Vascular: L Carotid Artery Bruits Abdomen: Bowel Sounds Present, Soft, Non Tender Extremities: No Cyanosis, No Clubbing, No edema Neurological: No Focal Motor or Sensory Deficit Psych/Mental Status: Appropriate, Normal Affect Rhythm: Sinus rhythm EKG: Sinus rhythm ECHO: 11/18/2014: Left ventricle normal with an LVEF of 65%; moderate left atrial enlargement; mild mitral annular calcification; mild to moderate MR; mild TR; mild aortic valve stenosis; mild AI; calcified aortic root; estimated RV systolic pressure of 32 mmHg Stress Test: 02/13/2016: Stress nuclear imaging study: Myocardial perfusion findings compatible with the effects of physiologic apical thinning with no myocardial perfusion changes consider diagnostic for associated stress-induced myocardial ischemia or previous myocardial injury/infarction 01/17/2018: Pharmacologic stress nuclear imaging study: The patient underwent pharmacologic (Regadenoson) evaluation with a peak heart rate of 84 beats per minute (60 predicted maximal heart rate) and a peak blood pressure of 190/66 mmHg. The baseline ECG demonstrated normal sinus rhythm. The peak pharmacologic ECG demonstrated no obvious ECG changes. The postinfusion ECG demonstrated the appearance of 0.5-1 mm of horizontal/upsloping ST segment depression in leads II, III, aVF, with gradual improvement towards baseline in recovery. There were no cardiac dysrhythmias pretest, during pharmacologic infusion, or recovery. The patient noted chest/jaw discomfort during pharmacologic infusion with gradual resolution towards baseline in recovery. The examination was discontinued secondary to completion of protocol. Impression: 1. Pharmacologic (Regadenoson) evaluation 2. Peak pharmacologic ECG with with no obvious ECG changes. The postinfusion ECG demonstrated the appearance of 0.5-1 mm horizontal/upsloping ST segment depression in leads II, III, and aVF with gradual improvement towards baseline in recovery. 3. There were no cardiac dysrhythmias during pharmacologic infusion or recovery 4. Nuclear images pending Myocardial perfusion imaging study: Technique: The patient was injected with 12.0 millicuries of technetium 99m Cardiolite and subsequently rest SPECT Cardiolite nuclear imaging was obtained in the horizontal long, vertical long, and short axis views. The patient underwent pharmacologic (Regadenoson) evaluation with a peak heart rate of 84 beats per minute (60 % percent predicted maximal heart rate) and a peak blood pressure of 190/66 mmHg. The patient was injected with 35.8 millicuries of technetium 99m Cardiolite and subsequently stress SPECT Cardiolite nuclear imaging was obtained in the horizontal long, vertical long, and short axis views. A gated Cardiolite study at peak stress was obtained. Interpretation: Rest and stress SPECT Cardiolite nuclear imaging status post realignment, normalization, pre-attenuation correction, and post attenuation correction demonstrate on the pre-attenuation correction images an area of diminished tracer uptake in the mid inferior segments status post stress. These findings are less noticeable on the post attenuation correction images and otherwise there appears to be relative uniform tracer uptake. There is end systolic thickening and brightening. The gated Cardiolite study demonstrates myocardial thickening and inward wall motion. The reported LVEF is 79 %. Impression: 1. Rest and stress SPECT Cardiolite nuclear imaging pre-attenuation correction demonstrates an area of diminished tracer uptake in the mid inferior segments status post stress which appears to be less prominent on the post attenuation correction images and otherwise appears to demonstrate relative uniform tracer uptake. The aforementioned findings appear concerning for an area of stress-induced myocardial ischemia although a component of soft tissue attenuation/artifact cannot necessarily be excluded. 2. The gated Cardiolite study reports an LVEF of 79 %. Cardiac Cath: 08/06/2005: [facility]: Left ventricle normal with an LVEF of 68%; LAD with 10-20% proximal in-stent stenosis, 10-20% mid stenosis; small first diagonal branch with stent fdc with 50% ostial stenosis; LCx with 10-20% proximal stenosis, 40-50% mid stenosis, and 20-30% distal stenosis; second OM branch with 10-20% ostial stenosis; RCA with 10-20% proximal to mid in-stent stenosis in 10-20% mid stenosis PCI: 02/23/2004: [facility]: LAD PTCA/stent CXR: Preliminary evaluation: No acute cardiopulmonary disease process appreciated: Please see official report Carotid artery duplex study: [facility]: 08/19/2014: Right internal carotid: 20-39% stenosis; left internal carotid: 40-59% stenosis Assessment/Plan 1. Angina pectoris The patient presents with symptoms which she has complained of epigastric discomfort, chest discomfort, left upper extremity discomfort, and jaw discomfort concerning for angina pectoris. She underwent evaluation with cardiac enzymes which was negative. Her ECG demonstrated no acute ECG changes. She subsequently underwent further evaluation with a pharmacologic stress nuclear imaging study. She had recurrent symptoms including jaw discomfort during the study. She did have postinfusion electrocardiographic changes. Her nuclear images demonstrated on pre-attenuation correction concerns of an area of diminished myocardial perfusion/tracer uptake in the mid inferior segment which appeared less prominent on the post attenuation images. The overall scenario does raise concerns about the patient's underlying CAD status and progression of CAD bringing out her symptoms, more so over the last week, and an accelerated mode. Thus at the present time she should continue medical management. She should be considered for further evaluation with diagnostic cardiac catheterization. The procedure and risks were discussed with her. 2. CAD status post PCI The patient does have a history of previous CAD and PCI. This is to the LAD and RCA distributions. Again her symptoms are concerning. Her pharmacologic stress nuclear imaging study is not unremarkable. It does raise concerns. Thus she should continue medical management and further evaluation as described above. 3. Valvular heart disease The patient does have an element of underlying valvular heart disease. In the past is not felt to be hemodynamically significant to proceed with either percutaneous or surgical based intervention. She will need to be followed and reassessed as deemed appropriate. 4. Hyperlipidemia She will need to continue risk factor evaluation and care as deemed appropriate. 5. Hypertension Blood pressures have been noted to be markedly elevated. It is unclear whether this is secondary to her other related symptoms, etc. or whether this may be a change in her blood pressure and potentially bringing out her other symptoms and findings. He should continue antihypertensive therapy to bring her blood pressures under better control. 6. Hypothyroidism The patient will need to continue thyroid therapy as deemed appropriate by her primary care physicians. Comment: The patient's case has been discussed and reviewed with the patient. This note was generated with [employer] dictation software. It may contain incorrect words, spelling, and punctuation that were not noted in checking the note before signing.
--- NOTE | 2018-01-17 15:18 | CON.PCM_ITS ---
Problem List (1) Angina pectoris Status: Acute (2) CAD (coronary artery disease) Status: Chronic Qualifiers: Coronary Disease-Associated Artery/Lesion type: [place] artery [place] vs. transplanted heart: [place] heart (3) S/P coronary artery stent placement Status: Chronic Comment: RCA/LAD (4) Valvular heart disease Status: Chronic (5) Hyperlipidemia Status: Chronic Qualifiers: (6) HTN (hypertension), benign Status: Chronic (7) Hypothyroidism Status: Chronic Reason for Consult Date of Consultation: 01/17/18 History of Present Illness: The patient is a 82 year old white female with a past cardiovascular history which is included underlying hyperlipidemia, hypertension, CAD, status post PCI , valvular heart disease, superimposed upon hypothyroidism, who is referred for evaluation of concerns of angina pectoris and a subsequent abnormal pharmacologic stress nuclear imaging study. Patient did contact the [facility] on 01/17/2028 13 based upon having symptoms, over the last week, which were progressing, of epigastric discomfort, chest discomfort, left upper extremity discomfort, and jaw discomfort associated with some shortness of breath and dyspnea not relieved with gastrointestinal related therapy. She notes her symptoms were worsening. She presented to the [facility] emergency department on 01/16/2018 for further evaluation. At that time she appear to be without acute symptoms. Her cardiac enzymes were negative and her ECG demonstrated no acute ECG changes. She was placed in the hospital for further evaluation and care. She subsequently underwent a pharmacologic stress nuclear imaging study. During the study she had recurrent symptoms including jaw discomfort, postinfusion ECG changes, and post infusion myocardial perfusion changes (please see official report)-all of which raise concerns of angina pectoris and concerns of her underlying CAD process. She has denied orthopnea, PND, or peripheral pitting edema. There has been no near syncope or syncope. She states she did not use her nitroglycerin sublingual tablets for her symptoms. [] Past Medical History Allergies/Adverse Reactions: Allergies Iodinated Contrast- Oral and IV Dye Allergy (Intermediate, Verified 06/10/17 09: 41) Rash ramipril [From Altace] Adverse Reaction (Severe, Verified 06/10/17 09:41) cough Home Medications: Ambulatory Orders Medication Instructions Recorded aspirin 325 mg tablet,delayed 325 mg PO QDAY 06/10/17 release atorvastatin 10 mg tablet 10 mg PO DAILY 90 Days 06/10/17 levothyroxine 88 mcg tablet 88 mcg PO DAILY 90 Days 06/10/17 nitroglycerin 0.4 mg sublingual 0.4 mg SUBLINGUAL Q5-15M PRN 10 06/10/17 tablet Days #2880 tab potassium chloride ER 10 mEq 10 meq PO QDAY 06/17/17 tablet,extended release Ascorbic Acid [Vitamin C] 500 mg PO DAILY 01/16/18 Calcium Citrate 600 mg PO DAILY 01/16/18 Co Q-10 100 mg PO DAILY 01/16/18 Fish Oil 01/16/18 Folic Acid 400 mcg PO DAILY@0800 01/16/18 Losartan Potassium [Cozaar] 25 mg PO BID 01/16/18 Metoprolol Succinate [Toprol Xl] 50 mg PO QDAY 01/16/18 Multivitamin [Daily Multiple 1 each PO DAILY 01/16/18 Vitamin] Niacin [Endur-Acin] 500 mg PO DAILY 01/16/18 Triamterene/Hydrochlorothiazid 1 cap PO QDAY 01/16/18 [Dyazide 37.5-25 Capsule] Past Medical History (Chronic Problems): Chronic Problems (Last Updated 01/16/18 @ 22:23 by Abebe Sullivan MD) Valvular heart disease (Chronic) Hypothyroidism (Chronic) Aortic insufficiency (Chronic) Hyperlipidemia (Chronic) HTN (hypertension), benign (Chronic) S/P coronary artery stent placement (Chronic ~2003) RCA/LAD CAD (coronary artery disease) (Chronic) Surgical History: angioplasty, cholecystectomy, - - Cardiac stents. 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 Denies: Orthopnea, PND, Peripheral Edema, Palpitations, Lightheadedness, Dizziness, Near Syncope, Syncope Respiratory: Reports: Shortness of Breath. Denies: Cough, Sputum Production, Hemoptysis Gastrointestinal: Denies: Hematemesis, Hematochezia, Melena Genitourinary: Denies: Dysuria, Hematuria Skin: Denies: Rash Subjectve: This is an 82-year-old white female who appears to be resting comfortably at the moment in no acute distress. Objective: Vital Signs Temp Pulse Resp BP Pulse Ox 98.6 F 64 16 144/43 H 95 01/17/18 14:10 01/17/18 14:10 01/17/18 14:10 01/17/18 14:10 01/17/18 14:10 Oxygen Delivery Method Room Air General: Awake, Alert, Oriented x 3, Cooperative, No Acute Distress HEENT: Atraumatic, Normocephalic, PERRL, EOMI, Sclera Non Icteric Oral: Moist Mucosa Neck: Supple, Good ROM, No JVD Lungs: Clear to auscultation Cardiovascular: Regular Rhythm, Normal S1, Normal S2 Murmur Murmur: Grade 3/6, Mid Systolic, LLSB, LVOT, Sternal Notch - 2/6 diastolic murmur at lower left sternal border Vascular: L Carotid Artery Bruits Abdomen: Bowel Sounds Present, Soft, Non Tender Extremities: No Cyanosis, No Clubbing, No edema Neurological: No Focal Motor or Sensory Deficit Psych/Mental Status: Appropriate, Normal Affect Rhythm: Sinus rhythm EKG: Sinus rhythm ECHO: 11/18/2014: Left ventricle normal with an LVEF of 65%; moderate left atrial enlargement; mild mitral annular calcification; mild to moderate MR; mild TR; mild aortic valve stenosis; mild AI; calcified aortic root; estimated RV systolic pressure of 32 mmHg Stress Test: 02/13/2016: Stress nuclear imaging study: Myocardial perfusion findings compatible with the effects of physiologic apical thinning with no myocardial perfusion changes consider diagnostic for associated stress-induced myocardial ischemia or previous myocardial injury/infarction 01/17/2018: Pharmacologic stress nuclear imaging study: The patient underwent pharmacologic (Regadenoson) evaluation with a peak heart rate of 84 beats per minute (60 predicted maximal heart rate) and a peak blood pressure of 190/66 mmHg. The baseline ECG demonstrated normal sinus rhythm. The peak pharmacologic ECG demonstrated no obvious ECG changes. The postinfusion ECG demonstrated the appearance of 0.5-1 mm of horizontal/upsloping ST segment depression in leads II , III, aVF, with gradual improvement towards baseline in recovery. There were no cardiac dysrhythmias pretest, during pharmacologic infusion, or recovery. The patient noted chest/jaw discomfort during pharmacologic infusion with gradual resolution towards baseline in recovery. The examination was discontinued secondary to completion of protocol. Impression: 1. Pharmacologic (Regadenoson) evaluation 2. Peak pharmacologic ECG with with no obvious ECG changes. The postinfusion ECG demonstrated the appearance of 0.5-1 mm horizontal/upsloping ST segment depression in leads II, III, and aVF with gradual improvement towards baseline in recovery. 3. There were no cardiac dysrhythmias during pharmacologic infusion or recovery 4. Nuclear images pending Myocardial perfusion imaging study: Technique: The patient was injected with 12.0 millicuries of technetium 99m Cardiolite and subsequently rest SPECT Cardiolite nuclear imaging was obtained in the horizontal long, vertical long, and short axis views. The patient underwent pharmacologic (Regadenoson) evaluation with a peak heart rate of 84 beats per minute (60 % percent predicted maximal heart rate) and a peak blood pressure of 190/66 mmHg. The patient was injected with 35.8 millicuries of technetium 99m Cardiolite and subsequently stress SPECT Cardiolite nuclear imaging was obtained in the horizontal long, vertical long, and short axis views. A gated Cardiolite study at peak stress was obtained. Interpretation: Rest and stress SPECT Cardiolite nuclear imaging status post realignment, normalization, pre-attenuation correction, and post attenuation correction demonstrate on the pre-attenuation correction images an area of diminished tracer uptake in the mid inferior segments status post stress. These findings are less noticeable on the post attenuation correction images and otherwise there appears to be relative uniform tracer uptake. There is end systolic thickening and brightening. The gated Cardiolite study demonstrates myocardial thickening and inward wall motion. The reported LVEF is 79 %. Impression: 1. Rest and stress SPECT Cardiolite nuclear imaging pre-attenuation correction demonstrates an area of diminished tracer uptake in the mid inferior segments status post stress which appears to be less prominent on the post attenuation correction images and otherwise appears to demonstrate relative uniform tracer uptake. The aforementioned findings appear concerning for an area of stress- induced myocardial ischemia although a component of soft tissue attenuation/ artifact cannot necessarily be excluded. 2. The gated Cardiolite study reports an LVEF of 79 %. Cardiac Cath: 08/06/2005: [facility]: Left ventricle normal with an LVEF of 68%; LAD with 10-20% proximal in-stent stenosis, 10-20% mid stenosis; small first diagonal branch with stent halfway with 50% ostial stenosis; LCx with 10-20% proximal stenosis, 40-50% mid stenosis, and 20-30% distal stenosis; second OM branch with 10-20% ostial stenosis; RCA with 10-20% proximal to mid in-stent stenosis in 10-20% mid stenosis PCI: 02/23/2004: [facility]: LAD PTCA/stent CXR: Preliminary evaluation: No acute cardiopulmonary disease process appreciated: Please see official report Carotid artery duplex study: [facility]: 08/19/2014: Right internal carotid: 20-39% stenosis; left internal carotid: 40-59% stenosis Assessment/Plan 1. Angina pectoris The patient presents with symptoms which she has complained of epigastric discomfort, chest discomfort, left upper extremity discomfort, and jaw discomfort concerning for angina pectoris. She underwent evaluation with cardiac enzymes which was negative. Her ECG demonstrated no acute ECG changes. She subsequently underwent further evaluation with a pharmacologic stress nuclear imaging study. She had recurrent symptoms including jaw discomfort during the study. She did have postinfusion electrocardiographic changes. Her nuclear images demonstrated on pre-attenuation correction concerns of an area of diminished myocardial perfusion/tracer uptake in the mid inferior segment which appeared less prominent on the post attenuation images. The overall scenario does raise concerns about the patient's underlying CAD status and progression of CAD bringing out her symptoms, more so over the last week, and an accelerated mode. Thus at the present time she should continue medical management. She should be considered for further evaluation with diagnostic cardiac catheterization. The procedure and risks were discussed with her. 2. CAD status post PCI The patient does have a history of previous CAD and PCI. This is to the LAD and RCA distributions. Again her symptoms are concerning. Her pharmacologic stress nuclear imaging study is not unremarkable. It does raise concerns. Thus she should continue medical management and further evaluation as described above. 3. Valvular heart disease The patient does have an element of underlying valvular heart disease. In the past is not felt to be hemodynamically significant to proceed with either percutaneous or surgical based intervention. She will need to be followed and reassessed as deemed appropriate. 4. Hyperlipidemia She will need to continue risk factor evaluation and care as deemed appropriate. 5. Hypertension Blood pressures have been noted to be markedly elevated. It is unclear whether this is secondary to her other related symptoms, etc. or whether this may be a change in her blood pressure and potentially bringing out her other symptoms and findings. He should continue antihypertensive therapy to bring her blood pressures under better control. 6. Hypothyroidism The patient will need to continue thyroid therapy as deemed appropriate by her primary care physicians. Comment: The patient's case has been discussed and reviewed with the patient. This note was generated with [employer]ulu dictation software. It may contain incorrect words, spelling, and punctuation that were not noted in checking the note before signing.
--- NOTE | 2018-01-17 15:24 | PCM.HOSP.N ---
Hospitalist Note The patient's nuclear stress study was consistent with stress-induced ischemic changes in the inferior distribution, versus artifactual. She had recurrent symptoms during stress test. Patient has been kindly seen in cardiology consultation with cardiac catheterization recommended on Friday. Will continue medical supportive care. I updated patient on plan of care
[2018-01-17] MEDS: Atorvastatin Calcium 10 MG Tablet PO (21:15)
[2018-01-18] VITALS (14 sets, daily range): BP systolic 134–194; BP diastolic 41–118; PULSE 54–70; RESP 15–16; TEMP 36.6–37.1; O2SAT 94–96
[2018-01-18] MEDS: Heparin Injection (Vial) 5,000 UNIT/ML VIAL 5000 UNIT SC ×3 (05:25→21:29)
[2018-01-18] MEDS: Levothyroxine 88 MCG Tablet PO (05:25)
--- NOTE | 2018-01-18 08:35 | PCM.PN.HOSP ---
Patient Problems: Active and Suspected Problems (Last Updated 01/16/18 @ 22:23 by Abebe Sullivan MD) Angina pectoris (Acute) Subjective: Feels well No chest pain Objective: well appearing Vitals/I&O's: Vital Signs Temp Pulse Resp BP Pulse Ox 97.9 F 55 L 16 135/41 H 95 01/18/18 05:22 01/18/18 07:06 01/18/18 05:22 01/18/18 05:22 01/18/18 07:26 Oxygen Delivery Method Room Air Intake and Output for Last 24 Hours 01/16/18 01/17/18 01/18/18 23:59 23:59 23:59 Intake Total 778 / 1825 120 / 120 Balance 778 / 1825 120 / 120 General: Alert, Oriented x3, Cooperative, No apparent distress Oral: Moist Mucosa Neck: No JVD Lungs: Clear to auscultation Cardiovascular: Regular rate, Regular Rhythm, Normal S1, Normal S2, - - monitor sinus 63 Abdomen: Bowel Sounds Present, Soft, Non Tender Extremities: No edema Musculoskeletal: No Muscle Wasting Psych/Mental Status: Normal Affect, Appropriate Current Medications Acetaminophen (Tylenol) 650 mg PO Q6H PRN PRN PRN Reason: Fever, headache, pain Al Hydroxide/Mg Hydroxide (Mylanta Ii) 15 ml PO Q6H PRN PRN PRN Reason: HEARTBURN OR INDIGESTION Aspirin (Ecotrin) 325 mg PO DAILYCM [facility] Last Admin: 01/17/18 05:06 Dose: 325 mg Atorvastatin Calcium (Lipitor) 10 mg PO QHS [facility] Last Admin: 01/17/18 21:15 Dose: 10 mg Heparin Sodium (Porcine) (Heparin Na) 5,000 unit SC Q8 [facility] Last Admin: 01/18/18 05:25 Dose: 5,000 units Hydralazine HCl (Apresoline) 25 mg PO Q6H PRN PRN PRN Reason: SBP > 160 Last Admin: 01/17/18 08:19 Dose: 25 mg Sodium Chloride () 250 mls @ 15 mls/hr IV .[id number] PRN PRN Reason: SALINE FLUSH Levothyroxine Sodium (Synthroid) 88 mcg PO DAILY@0600 [facility] Last Admin: 01/18/18 05:25 Dose: 88 mcg Losartan Potassium (Cozaar) 25 mg PO BID [facility] Last Admin: 01/17/18 21:15 Dose: 25 mg Magnesium Hydroxide (Milk Of Magnesia) 30 ml PO DAILY PRN PRN Reason: Constipation Metoprolol Succinate (Toprol Xl (Beta Tg)) 50 mg PO DAILY [facility] Last Admin: 01/17/18 10:30 Dose: 50 mg Nitroglycerin (Nitrostat) 0.4 mg SUBLINGUAL Q5M PRN PRN Reason: CHEST PAIN Ondansetron HCl (Zofran) 4 mg IV Q8H PRN PRN PRN Reason: NAUSEA/VOMITING Pantoprazole Sodium (Protonix) 40 mg PO DAILY [facility] Last Admin: 01/17/18 10:30 Dose: 40 mg Potassium Chloride (K-Dur) 10 meq PO DAILY [facility] Last Admin: 01/17/18 10:29 Dose: 10 meq Sodium Chloride () 5 - 30 ml IV UD PRN PRN Reason: SALINE FLUSH Last Admin: 01/17/18 10:31 Dose: 10 ml Triamterene/HCTZ (Dyazide (G)) 1 cap PO DAILY [facility] Last Admin: 01/17/18 10:29 Dose: 1 cap Medical Necessity - Tobacco Use Smoking Status: Never smoker Assessment/Plan All Active Problems (Last Updated 01/16/18 @ 22:23 by Abebe Sullivan MD) Angina pectoris (Acute) This is an 82-year-old patient who presented to the emergency department with substernal chest pain radiating to her left arm. She also noted epigastric pain. This had been occurring after eating meals which she thought may be reflux type. She ruled out for acute coronary syndrome. Stress testing 01/17/18 revealed concern for ischemia in inferior distribution. The patient reported an EGD in the past which was unrevealing. She had trialed an omeprazole at home which seemed to provide some benefit. 1. Chest pain --apical and atypical features Heart score = 4 Risk factors to include CAD, hypertension, hyperlipidemia, EKG no acute ischemic changes, no evidence of ACS, chest x-ray negative, nothing clinically to suggest thromboembolic. Nuclear stress test concerning for ischemia in inferior distribution Cardiac cath on Friday01/19/18 Benadryl 25 mg IV method consultant to cath (had hives after cath in past; Benadryl premed with cath #2 good effect; did not require steroids) 2. CAD status post PCI/stent --aspirin, statin, beta-tg, losartan 3. Hypertension stable Continue losartan, metoprolol, as needed hydralazine 4. Hypothyroidism Continue levothyroxine 5. Hyperlipidemia On statin 6. GERD -- started PPI 7. DVT prophylaxis Subcu heparin Code Visit Inpatient E&M: [id number] [facility] Hosp L2
--- NOTE | 2018-01-18 08:39 | PN_ITS ---
Patient Problems: Active and Suspected Problems (Last Updated 01/16/18 @ 22:23 by Abebe Sullivan MD) Angina pectoris (Acute) Subjective: Feels well No chest pain Objective: well appearing Vitals/I&O's: Vital Signs Temp Pulse Resp BP Pulse Ox 97.9 F 55 L 16 135/41 H 95 01/18/18 05:22 01/18/18 07:06 01/18/18 05:22 01/18/18 05:22 01/18/18 07:26 Oxygen Delivery Method Room Air Intake and Output for Last 24 Hours 01/16/18 01/17/18 01/18/18 23:59 23:59 23:59 Intake Total 778 / 1825 120 / 120 Balance 778 / 1825 120 / 120 General: Alert, Oriented x3, Cooperative, No apparent distress Oral: Moist Mucosa Neck: No JVD Lungs: Clear to auscultation Cardiovascular: Regular rate, Regular Rhythm, Normal S1, Normal S2, - - monitor sinus 63 Abdomen: Bowel Sounds Present, Soft, Non Tender Extremities: No edema Musculoskeletal: No Muscle Wasting Psych/Mental Status: Normal Affect, Appropriate Current Medications Acetaminophen (Tylenol) 650 mg PO Q6H PRN PRN PRN Reason: Fever, headache, pain Al Hydroxide/Mg Hydroxide (Mylanta Ii) 15 ml PO Q6H PRN PRN PRN Reason: HEARTBURN OR INDIGESTION Aspirin (Ecotrin) 325 mg PO DAILYCM [facility] Last Admin: 01/17/18 05:06 Dose: 325 mg Atorvastatin Calcium (Lipitor) 10 mg PO QHS [facility] Last Admin: 01/17/18 21:15 Dose: 10 mg Heparin Sodium (Porcine) (Heparin Na) 5,000 unit SC Q8 [facility] Last Admin: 01/18/18 05:25 Dose: 5,000 units Hydralazine HCl (Apresoline) 25 mg PO Q6H PRN PRN PRN Reason: SBP > 160 Last Admin: 01/17/18 08:19 Dose: 25 mg Sodium Chloride () 250 mls @ 15 mls/hr IV .[id number] PRN PRN Reason: SALINE FLUSH Levothyroxine Sodium (Synthroid) 88 mcg PO DAILY@0600 [facility] Last Admin: 01/18/18 05:25 Dose: 88 mcg Losartan Potassium (Cozaar) 25 mg PO BID [facility] Last Admin: 01/17/18 21:15 Dose: 25 mg Magnesium Hydroxide (Milk Of Magnesia) 30 ml PO DAILY PRN PRN Reason: Constipation Metoprolol Succinate (Toprol Xl (Beta Tg)) 50 mg PO DAILY [facility] Last Admin: 01/17/18 10:30 Dose: 50 mg Nitroglycerin (Nitrostat) 0.4 mg SUBLINGUAL Q5M PRN PRN Reason: CHEST PAIN Ondansetron HCl (Zofran) 4 mg IV Q8H PRN PRN PRN Reason: NAUSEA/VOMITING Pantoprazole Sodium (Protonix) 40 mg PO DAILY [facility] Last Admin: 01/17/18 10:30 Dose: 40 mg Potassium Chloride (K-Dur) 10 meq PO DAILY [facility] Last Admin: 01/17/18 10:29 Dose: 10 meq Sodium Chloride () 5 - 30 ml IV UD PRN PRN Reason: SALINE FLUSH Last Admin: 01/17/18 10:31 Dose: 10 ml Triamterene/HCTZ (Dyazide (G)) 1 cap PO DAILY [facility] Last Admin: 01/17/18 10:29 Dose: 1 cap Medical Necessity - Tobacco Use Smoking Status: Never smoker Assessment/Plan All Active Problems (Last Updated 01/16/18 @ 22:23 by Abebe Sullivan MD) Angina pectoris (Acute) This is an 82-year-old patient who presented to the emergency department with substernal chest pain radiating to her left arm. She also noted epigastric pain. This had been occurring after eating meals which she thought may be reflux type. She ruled out for acute coronary syndrome. Stress testing 01/17 revealed concern for ischemia in inferior distribution. The patient reported an EGD in the past which was unrevealing. She had trialed an omeprazole at home which seemed to provide some benefit. 1. Chest pain --apical and atypical features Heart score = 4 Risk factors to include CAD, hypertension, hyperlipidemia, EKG no acute ischemic changes, no evidence of ACS, chest x-ray negative, nothing clinically to suggest thromboembolic. 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 CAD status post PCI/stent --aspirin, statin, beta-tg, losartan 3. Hypertension stable Continue losartan, metoprolol, as needed hydralazine 4. Hypothyroidism Continue levothyroxine 5. Hyperlipidemia On statin 6. GERD -- started PPI 7. DVT prophylaxis Subcu heparin Code Visit Inpatient E&M: [id number] [facility] Hosp L2
[2018-01-18] MEDS: Triamterene 37.5MG/Hctz 25MG Capsule 1 CAP PO (09:30)
[2018-01-18] MEDS: Losartan Potassium 25 MG Tablet PO ×2 (09:30→21:28)
[2018-01-18] MEDS: Pantoprazole Sodium 40 MG Tablet PO (09:30)
[2018-01-18] MEDS: Aspirin E.C. 325 MG Tablet PO (09:30)
--- NOTE | 2018-01-18 12:08 | PCM.PN.CARD ---
Subjectve: The patient is awake and alert. She denies any ongoing chest, shoulder, or jaw discomfort. Objective: Vital Signs Temp Pulse Resp BP Pulse Ox 98.3 F 56 L 16 134/61 H 94 01/18/18 09:20 01/18/18 11:39 01/18/18 09:20 01/18/18 09:32 01/18/18 09:20 Oxygen Delivery Method Room Air Intake and Output for Last 24 Hours 01/16/18 01/17/18 01/18/18 23:59 23:59 23:59 Intake Total 778 / 1825 120 / 120 Balance 778 / 1825 120 / 120 General: Awake, Alert, Oriented x 3, Cooperative, No Acute Distress HEENT: Atraumatic, Normocephalic, PERRL, EOMI, Sclera Non Icteric Oral: Moist Mucosa Neck: Supple, Good ROM, No JVD Lungs: Clear to auscultation Cardiovascular: Regular Rhythm, Normal S1, Normal S2 Vascular: No Carotid Bruits Abdomen: Bowel Sounds Present, Soft, Non Tender Extremities: No Cyanosis, No Clubbing, No edema Rhythm: EKG: ECHO: Stress Test: Cardiac Cath: PCI: CT Surgery: Holter monitor: EPS: PPM: CXR: Chest CT Scan: Medical Necessity - Tobacco Use Smoking Status: Never smoker Assessment/Plan 1. Angina pectoris The patient presents with symptoms which she has complained of epigastric discomfort, chest discomfort, left upper extremity discomfort, and jaw discomfort concerning for angina pectoris. She underwent evaluation with cardiac enzymes which was negative. Her ECG demonstrated no acute ECG changes. She subsequently underwent further evaluation with a pharmacologic stress nuclear imaging study. She had recurrent symptoms including jaw discomfort during the study. She did have postinfusion electrocardiographic changes. Her nuclear images demonstrated on pre-attenuation correction concerns of an area of diminished myocardial perfusion/tracer uptake in the mid inferior segment which appeared less prominent on the post attenuation images. The overall scenario does raise concerns about the patient's underlying CAD status and progression of CAD bringing out her symptoms, more so over the last week, and an accelerated mode. Thus at the present time she should continue medical management. She should be considered for further evaluation with diagnostic cardiac catheterization. The procedure and risks were discussed with her. She was agreeable to this approach. Based upon concerns of a possible IV contrast related allergy she will receive premedications with a combination of corticosteroid, H2 antagonist, and antihistamine. 2. CAD status post PCI The patient does have a history of previous CAD and PCI. This is to the LAD and RCA distributions. Again her symptoms are concerning. Her pharmacologic stress nuclear imaging study is not unremarkable. It does raise concerns. Thus she should continue medical management and further evaluation as described above. 3. Valvular heart disease The patient does have an element of underlying valvular heart disease. In the past is not felt to be hemodynamically significant to proceed with either percutaneous or surgical based intervention. She will need to be followed and reassessed as deemed appropriate. 4. Hyperlipidemia She will need to continue risk factor evaluation and care as deemed appropriate. 5. Hypertension Blood pressures have been noted to be markedly elevated. It is unclear whether this is secondary to her other related symptoms, etc. or whether this may be a change in her blood pressure and potentially bringing out her other symptoms and findings. He should continue antihypertensive therapy to bring her blood pressures under better control. 6. Hypothyroidism The patient will need to continue thyroid therapy as deemed appropriate by her primary care physicians. Comment: The patient's case has been discussed and reviewed with the patient. This note was generated with [employer] dictation software. It may contain incorrect words, spelling, and punctuation that were not noted in checking the note before signing.
[2018-01-18] MEDS: TICAGRELOR 90 MG TABLET 180 MG PO (13:43)
[2018-01-18] MEDS: 0.9% NaCl Peripheral Flush Adult/Peds IV (18:56)
--- NOTE | 2018-01-18 19:20 | EKG12_ITS ---
Test Reason : CP Blood Pressure : / mmHG Vent. Rate : 065 BPM Atrial Rate : 065 BPM P-R Int : 150 ms QRS Dur : 078 ms QT Int : 414 ms P-R-T Axes : 067 -18 011 degrees QTc Int : 430 ms Normal sinus rhythm Voltage criteria for left ventricular hypertrophy Nonspecific ST abnormality Abnormal ECG Confirmed by LEO WYNN, PORTIA ([id number]), content editor RIVERA EASTON ([id number]) on 01/21/2018 11:30:43 AM Referred By: DR ALONZO Confirmed By:PORTIA BAILEY MD
[2018-01-18] MEDS: DiphenhydrAMINE 25 MG Capsule 50 MG PO (21:28)
[2018-01-18] MEDS: Atorvastatin Calcium 10 MG Tablet PO (21:28)
[2018-01-18] MEDS: predniSONE 20 MG Tablet 60 MG PO (21:29)
[2018-01-18] MEDS: Famotidine 20 MG Tablet PO (21:29)
[2018-01-18] MEDS: TICAGRELOR 90 MG TABLET PO (21:30)
[2018-01-19] VITALS (26 sets, daily range): BP systolic 122–182; BP diastolic 40–96; PULSE 53–75; RESP 11–20; TEMP 36.2–36.7; O2SAT 94–98
[2018-01-19 01:55] LABS: Bacteria 0 SEEN /hpf (None Seen); Mucous, Urine 0 SEEN /hpf (<or=2+); Red Blood Cells-Urine 0 SEEN /hpf (0-5); White Blood Cells 0 SEEN /hpf (0-5)
[2018-01-19 01:56] LABS: Color, Urine Yellow (Yellow); Glucose, Dipstick Normal (Normal); Ketone-Dipstick Negative (Negative); Leukocyte Esterase-Dipstick 25 /ul (Negative); Nitrite-Dipstick Negative (Negative); Occult Blood-Urine Negative /ul (Negative); Protein-Dipstick Negative (Negative); Specific Gravity, Urine 1.005 (1.002-1.030); Urine Bilirubin Dipstick Negative (Negative); Urine Clarity Clear (Clear); Urine Urobilinogen Normal (Normal)
[2018-01-19 02:08] LABS: Squamous Epithelial Cells - UA 0-5 SEEN /hpf (5-10)
--- NOTE | 2018-01-19 04:00 | EKG12_ITS ---
Test Reason : CP ADMIT Blood Pressure : / mmHG Vent. Rate : 055 BPM Atrial Rate : 055 BPM P-R Int : 160 ms QRS Dur : 084 ms QT Int : 446 ms P-R-T Axes : 023 -08 019 degrees QTc Int : 426 ms Sinus bradycardia Nonspecific ST abnormality Abnormal ECG Confirmed by LEO WYNN, PORTIA ([id number]), script editor RIVERA EASTON ([id number]) on 01/21/2018 11:37:50 AM Referred By: DR ALONZO Confirmed By:PORTIA BAILEY MD
[2018-01-19 04:44] LABS: Prothrombin Time (Protime)PT. 13.2 SECONDS (11.7-14.9)
[2018-01-19 04:45] LABS: Partial Thromboplast Time 27.7 Seconds (24.1-36.2)
[2018-01-19 04:48] LABS: Anion Gap 13 (5-15); BUN 24 mg/dL (7-18); BUN/Creat Ratio 18.6 RATIO (10-20); Calcium,Total 9.3 mg/dL (8.5-10.1); Chloride 101 mmol/L (98-107); Creatinine, Serum 1.29 mg/dL (0.55-1.02); EST Glomerular Filtration Rate 42 mL/min (>60); Est Glom Filt Rate - Afr Amer 51 mL/min (>60); Estimated Creatinine Clearance 24.98 ml/min; Glucose 154 mg/dL (74-106); Potassium 4.9 mmol/L (3.5-5.1); Sodium Level 139 mmol/L (136-145)
[2018-01-19 04:54] LABS: Absolute Lymphocyte Count 0.99 X10^3/ul (0.83-4.51); Basophil# 0.04 X10^3/uL; Basophil% 0.4 % (0-1); Eosinophil# 0.05 X10^3/uL; Eosinophils% 0.5 % (0-5); Hematocrit 40.6 % (37-47); Hemoglobin 13.3 g/dl (12.0-15.0); Lymphocyte # 0.99 X10^3/ul (4.0); Lymphocyte % 10.7 % (19-41); Mean Corp Hgb Conc 32.8 g/gl (32-36); Mean Corpuscular Hgb 30.6 pg (27.0-32.0); Mean Corpuscular Volume 93.3 fL (81-99); Mean Platelet Vol. 10.1 fl (6.2-12.0); Monocyte# 0.12 X10^3/uL; Monocyte% 1.3 % (0-10); Neutrophil # 8.03 X10^3/uL (2.7-7.7); Platelet Count 226 K/mm3 (150-450); RBC Distribution Width CV 13.9 % (11.6-14.6); RBC Distribution Width SD 47.4 fl (35.1-43.9); Red Blood Count 4.35 M/mm3 (4.2-5.4); White Blood Count 9.2 K/mm3 (4.4-11.0)
[2018-01-19] MEDS: Levothyroxine 88 MCG Tablet PO (05:30)
[2018-01-19] MEDS: 0.9% Normal Saline 1,000 ML 15 ML IV (05:30)
[2018-01-19] MEDS: Losartan Potassium 25 MG Tablet PO ×2 (05:31→21:11)
[2018-01-19] MEDS: Aspirin E.C. 81 MG Tablet PO (05:31)
[2018-01-19] MEDS: Metoprolol(XL)Succ 50 MG Tablet PO (05:31)
[2018-01-19] MEDS: Famotidine 20 MG Tablet PO (05:32)
[2018-01-19] MEDS: DiphenhydrAMINE 25 MG Capsule 50 MG PO (05:32)
[2018-01-19] MEDS: predniSONE 20 MG Tablet 60 MG PO (05:32)
[2018-01-19] MEDS: TICAGRELOR 90 MG TABLET PO ×2 (05:32→21:17)
[2018-01-19 05:37] LABS: POSITIVE COUNT NO; POSITIVE DIFFERENTIAL NO; POSITIVE MORPHOLOGY NO
--- NOTE | 2018-01-19 08:41 | CL.I_ITS ---
Patient Name: PRECIOUS LEIGH Study Date: 01/19/2018 Performing: Olvin Patel MD Ht: 59.84 inches 152 cm : 1935 Wt: 171.96 lbs 78 kg Age: 82 Gender: female BSA: 1.75 PROCEDURE(S) PERFORMED [id number] W OR WO PTCA, SINGLE CORONARY ARTERY CLINICAL PROFILE AND CO-MORBIDITIES Indications: ACS <= 24 hrs, Worsening Angina, Stable Known CAD, Suspected CAD Heart Failure: None Stress/Imaging Stress Test w/SPECT MPI: Yes Result: Positive Intermediate Risk Stress Test with S PECT MPI: Positive Intermediate Risk Angina Classification Anginal Classification w/in 2 Weeks: CCS III CAD Presentations: Unstable angina. Comorbidities/Risk Factors: Hypertension Dyslipidemia Prior PCI CONCLUSIONS Successful PTCA/LEANDER of the of mid RCA with a 2.5 x 24 Promus Synergy stent, post dilated distally wit h a 3.0 x 8 NC Balloon at 14 radha, and post dilated throughout with same NC balloon to 10 radha. 85%--> 0%, no dissection. RECOMMENDATIONS Highly recommend quitting all tobacco products Follow up with primary model engine mechanic Risk factor modification ASA Indefinitley Plavix for at least 12 months Routine post interventional care Refer for Outpatient Cardiac Rehab Manual sheath removal per protocol Successful Mynx closure device in RFA using double sterile technique. DESCRIPTION OF PROCEDURE The patient arrived to the procedure lab. The risks and benefits of the procedure as well as a full d escription of our services here and current unavailability of surgical backup were fully explained to the patient and/or their significant other prior to the catheterization. The Timeout was completed, verifying the correct patient and procedure. The patient's procedural site was prepped and draped in the usual fashion. Local anesthetic was given subcutaneously to right groin region with Lidocaine 2% Using a modified Seldinger technique,arterial access was obtained via the right femoral artery, a 4Fr sheath was inserted Left Coronary Artery selective angiography was performed in multiple views using a 4 Fr. JL5 catheter. Right Coronary Artery selective angiography was then performed in multiple vie ws using a 4 Fr. 3DRC catheter. Left Ventriculography was performed in BECERRA projection using a 4 Fr. P igtail catheter. LV to AO pullback pressures were then recorded.The images were reviewed and options discussed. A decision was then made to proceed with an Intervention, IVUS or other adjunct procedure. Arterial sheath was exchanged for a 6fr 55cm sheath sheath HSII Guide catheter was inserted and engag ed into the RCA. BMW Guide wire was advanced to the Right PDA. emerge 2.00x12 Balloon catheter was in serted. PTCA balloon inflated at 6 atms for 10 secs. PTCA balloon inflated at 8 atms for 12 secs. PTC A balloon inflated at 9 atms for 19 secs. PTCA balloon inflated at 8 atms for 14 secs. Angiogram perf ormed post balloon dilatation. synergy 2.50x24 Drug Eluting stent was inserted. Angiogram performed p ost stent deployment. nc emerge 3.00x8 Balloon catheter was inserted. PTCA balloon inflated at 12 radha s for 10 secs. PTCA balloon inflated at 11 atms for 11 secs. PTCA balloon inflated at 8 atms for 10 s ecs. PTCA balloon inflated at 8 atms for 7 secs. PTCA balloon inflated at 10 atms for 10 secs. PTCA b alloon inflated at 10 atms for 9 secs. Contrast was injected through the sheath and the Right Iliac a nd Femoral artery were assessed for possible closure device. The arterial sheath was pulled and a My nx closure device was deployed for hemostasis INTERVENTION INFORMATION LESION SITE: RCA (Mid) Lesion Complexity: High/C, lesion at bifurcation: No, thrombus present: No, lesion length: 24 mm, cul prit lesion: Yes Pre Stenosis: 85 % Pre intervention LUIS flow: 3 PROCEDURE: Drug Eluting Stent with pre and post dilatation Post Stenosis: 0 % Post intervention LUIS flow: 3 Lesion Devices: [place] .014 BMW [place] Straight 190cm Willie Sci EMERGE MR 2.00x12 BALLOON Medtronic 6 Fr HSII 100cm Guide Catheter Willie Sci Synergy MR LEANDER 2.50x24 Willie Sci NC EMERGE MR 3.00x08 BALLOON COMPLICATIONS No Complications PROCEDURE MEDICATIONS Versed 1 mg IV Oxygen: 2 L/min via nasal cannula Heparin 6000 unit(s) IV 01/19/2018 08:02:02 Nitro 200 mcg IC 01/19/2018 08:03:21 Nitro glycerin 25mg / 250ml D5W @ 5 mcg/min IV started 01/19/2018 08:15:24 Nitro 200 mcg IC 01/19/2018 08:15:24 Nitro 200 mcg IC 01/19/2018 08:19:12 Solu-medrol 125 mg IV 01/19/2018 07:22:00 SUMMARY OF HEMODYNAMIC DATA Time AIR REST ECG 07:22:08 AO 151/55 (91) SA 07:38:48 LV 169/7, 20 07:46:15 LV 170/6, 19 07:46:21 LV 178/12, 25 07:47:47 LVp 181/27, 60 07:47:54 AOp 171/59 (102) 07:47:59 Signed By Olvin Patel MD On 01/19/2018 08:40:39 Olvin Patel MD
[2018-01-19 09:46] LABS: ACT Activated Clotting Time 186 sec (74-137)
--- NOTE | 2018-01-19 12:02 | NURSING ---
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 PCI done & pt to be transferred to ICU, pt has been in dairy and food laboratory assistant in the mean time.
--- NOTE | 2018-01-19 14:46 | CRPHASE1_ITS ---
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 Risk Factors/Lifestyle Smoking Status: Never smoker Hx Hypertension: Yes Hx Diabetes Mellitus Type 1: No Hx Diabetes Mellitus Type 2: No Hx Metabolic Disorders: Yes Hx Dyslipidemia: Yes Hx Obesity: Yes Height: 5 ft - BMI 33.5 Stress: Home/Family Risk Factor for Sedentary Lifestyle: Highest Risk Past Cardiac Illness: Coronary Artery Disease, Previous PCI w/Stent, Other - AORTIC INSUFFICIENCY Phase I Education Given On:: [place], Nutrition, Antiplatelet medication Issues Affecting Care:: None Hospital Course Presenting Symptoms:: C/P Medical/Surgical History TN:: No Angina:: Yes CAD:: Yes Diabetes:: No Hypertension:: Yes Dyslipidemia:: Yes PTCA:: Yes Discharge/Home/Social Eval Discharge Disposition: Home
--- NOTE | 2018-01-19 14:48 | CRPH1.INST_ITS ---
General Education CAD and cardiac anatomy and function:: Patient communicates acknowledgment Explanation of diagnoses and procedures:: Patient communicates acknowledgment Sign/Symptoms of NM:: Patient communicates acknowledgment Antiplatelet therapy: Patient communicates acknowledgment Proper use of NTG-SL: Patient communicates acknowledgment Emergency procedures and activation of EMS: Patient communicates acknowledgment Compliance of all prescribed medications: Patient communicates acknowledgment Smoking Patient Nicotine/Smoking Risk Factors Are:: Never smoked Dyslipidemia Patient Dyslipidemia Risk Factors Are:: Total Cholesterol, Triglycerides, HDL, LDL Recommendations Include:: Lipid profile not available, Reviewed NCEP/ATP guidelines, Therapeutic Lifestyle Change dietary guidelines Dyslipidemia Response Code:: Patient communicates acknowledgment Overweight/Obesity Patient Overweight/Obesity Risk Factors Are:: Obesity - > or = 30 Recommendations Include:: Weight loss of 5-10%, Reduced calorie diet, Exercise 5 -7 times/week Overweight/Obesity:: Patient communicates acknowledgment Hypertension Recommendations Include:: Maintain BP <130/85, DASH dietary guidelines, Decrease /maintain normal body weight, Moderation of ETOH Hypertension:: Patient communicates acknowledgment Heart Disease Patient Heart Disease Risk Factors Are:: Previous cardiac event Diabetes Patient Diabetes Risk Factors Are:: No documented hx of diabetes Metabolic Syndrome Patient Metabolic Syndrome Risk Factors Are [3 of 5]:: Waist circumference > 35 [female] or 40 [male], High triglyceride >150, Hypertension, Low HDL <40 [ male] or < 50 [female] Recommendations Include:: Reinforce compliance to risk factor modifications, Encouraged follow-up with Primary Care Physician Metabolic Syndrome Response Code:: Patient communicates acknowledgment Sedentary Patient Sedentary Risk Factors Are:: Lack of regular exercise Recommendations Include:: Aerobic exercise 5-7 times/week for 20-30 minutes continuously, Benefits of regular exercise, Discussed home walking program, Monitored Outpatient Cardiac Rehab Sedentary Response Code:: Patient communicates acknowledgment Stress Recommendations Include:: Identification of stressors, and assessment of coping skills, Stress management techniques Stress Response Code:: Patient communicates acknowledgment
--- NOTE | 2018-01-19 14:49 | EKG12_ITS ---
Test Reason : AM EKG Blood Pressure : / mmHG Vent. Rate : 058 BPM Atrial Rate : 058 BPM P-R Int : 152 ms QRS Dur : 078 ms QT Int : 432 ms P-R-T Axes : 071 -03 020 degrees QTc Int : 424 ms Sinus bradycardia Confirmed by LEO WYNN, PORTIA ([id number]), fan mail editor RIVERA EASTON ([id number]) on 01/21/2018 11:27:11 AM Referred By: DR MILLER Confirmed By:PORTIA BAILEY MD
[2018-01-19] MEDS: 0.9% Normal Saline 1,000 ML 150 ML IV (16:14)
[2018-01-19] MEDS: Heparin Injection (Vial) 5,000 UNIT/ML VIAL 5000 UNIT SC ×2 (16:14→21:11)
--- NOTE | 2018-01-19 17:46 | PN.CARD_ITS ---
Subjectve: The patient is status post further cardiovascular evaluation. This included diagnostic cardiac catheterization. There was notation of progression of RCA disease. Thus she has undergone evaluation with RCA PTCA/stent. At the present time she appears to be resting comfortably. She has had no new acute symptoms. Objective: Vital Signs Temp Pulse Resp BP Pulse Ox 98.1 F 59 L 16 122/52 H 97 01/19/18 05:26 01/19/18 06:50 01/19/18 05:26 01/19/18 16:30 01/19/18 14:45 Oxygen Flow Rate (L/min) 2 Oxygen Delivery Method Room Air Intake and Output for Last 24 Hours 01/17/18 01/18/18 01/19/18 23:59 23:59 23:59 Intake Total 778 / 1825 1150 / 1150 Balance 778 / 1825 1150 / 1150 General: Awake, Alert, Oriented x 3, Cooperative, No Acute Distress Neck: No JVD Lungs: Clear to auscultation Cardiovascular: Regular Rhythm, Normal S1, Normal S2 Murmur Murmur: Grade 3/6, Mid Systolic, LLSB, LVOT, Sternal Notch - 2/6 diastolic murmur at lower left sternal border Vascular: Normal Femoral Pulses Abdomen: Bowel Sounds Present, Soft, Non Tender Extremities: No edema 01/19/18 01:16: Urine Color Yellow, Urine Clarity Clear, Urine pH 7.0, Ur Specific [place] 1.005, Urine Protein Negative, Urine Glucose (UA) Normal, Urine Ketones Negative, Urine Occult Blood Negative, Urine Nitrite Negative, Urine Bilirubin Negative, Urine Urobilinogen Normal, Ur Leukocyte Esterase 25 H , Urine RBC 0 SEEN, Urine WBC 0 SEEN 01/19/18 04:02: WBC 9.2, RBC 4.35, Hgb 13.3, Hct 40.6, MCV 93.3, MCH 30.6, MCHC 32.8, RDW 13.9, RDW Differential 47.4 H, Plt Count 226, MPV 10.1, Immature Gran % (Auto) 0.100, Neut % (Auto) 87.0 H, Lymph % (Auto) 10.7 L, [place] % (Auto) 1.3, Eos % (Auto) 0.5, Baso % (Auto) 0.4, Absolute Neuts (auto) 8.0 H, Total Counted Not Reportable 01/19/18 04:02: PT 13.2, INR 1.0, APTT 27.7 01/19/18 04:02: Sodium 139, Potassium 4.9, Chloride 101, Carbon Dioxide 25.0, Anion Gap 13, BUN 24 H, Creatinine 1.29 H, Est GFR (MDRD) Af Amer 51 L, Est GFR (MDRD) Non-Af 42 L, BUN/Creatinine Ratio 18.6, Glucose 154 H, Calcium 9.3 Rhythm: Sinus rhythm Medical Necessity - Tobacco Use Smoking Status: Never smoker Assessment/Plan 1. CAD status post PCI The patient does have a history of previous CAD and PCI. This is to the LAD and RCA distributions. She has undergone reevaluation. She was found to have progression of her RCA disease. She has subsequently undergone RCA PTCA/stent. She does have an element of progression of disease in her LCx distribution. If despite her current medical management she continues with symptoms and she may need to be considered for a staged procedure to the LCx distribution. 2. Valvular heart disease The patient does have an element of underlying valvular heart disease. In the past is not felt to be hemodynamically significant to proceed with either percutaneous or surgical based intervention. She will need to be followed and reassessed as deemed appropriate. 3. Hyperlipidemia She will need to continue risk factor evaluation and care as deemed appropriate. 4. Hypertension Her blood pressures have waxed and waned. She will need to continue her medical management with adjustment to try and keep her blood pressures under good control. 5. Hypothyroidism The patient will need to continue thyroid therapy as deemed appropriate by her primary care physicians. Comment: The patient's case has been discussed and reviewed with the patient. This note was generated with [employer] software. It may contain incorrect words, spelling, and punctuation that were not noted in checking the note before signing.
--- NOTE | 2018-01-19 19:58 | CL.D_ITS ---
Patient Name: PRECIOUS LEIGH Study Date: 01/19/2018 Performing: Luis Alberto Madera MD Ht: 60 inches 152 cm : 1935 Wt: 172.2 lbs 78 kg Age: 82 Gender: female BSA: 1.75 PROCEDURE(S) PERFORMED DM34-FTF/COR/LV [id number] W OR WO PTCA, SINGLE CORONARY ARTERY CLINICAL PROFILE AND INDICATIONS Indications: ACS <= 24 hrs, Worsening Angina, Stable Known CAD, Suspected CAD, Worsening Angina, Suspected CAD Heart Failure: None Stress/Imaging Stress Test w/SPECT MPI: Yes Result: Positive Intermediate RiskStress Test with SP ECT MPI: Positive Intermediate Risk Angina Classification Anginal Classification w/in 2 Weeks: CCS III CAD Presentations: Unstable angina. Unstable angina. Comorbidities/Risk Factors: Hypertension Dyslipidemia Prior PCI CONCLUSIONS Elevated Left Ventricular End Diastolic Pressure Normal LV size, wall motion,and systolic function LVEF: by LV gram 60 % [place] Multivessel CAD RECOMMENDATIONS Risk factor modification Medical therapy Referred for immediate PCI DESCRIPTION OF PROCEDURE The patient arrived to the procedure lab. The risks and benefits of the procedure as well as a full d escription of our services here and current unavailability of surgical backup were fully explained to the patient and/or their significant other prior to the catheterization. The Timeout was completed, verifying the correct patient and procedure. The patient's procedural site was prepped and draped in the usual fashion. Local anesthetic was given subcutaneously to right groin region with Lidocaine 2%. Using a modified Seldinger technique, arterial access was obtained via the right femoral artery, a 4 Fr sheath was inserted Left Coronary Artery selective angiography was performed in multiple views us ing a 4 Fr. JL5 catheter. Right Coronary Artery selective angiography was then performed in multiple views using a 4 Fr. 3DRC catheter. Left Ventriculography was performed in BECERRA projection using a 4 Fr . Pigtail catheter. LV to AO pullback pressures were then recorded.Contrast was injected through the sheath and the Right Iliac and Femoral artery were assessed for possible closure device.The arterial sheath was pulled and a Mynx closure device was deployed for hemostasis CORONARY ANGIOGRAPHY DOMINANCE: Co- Dominant LEFT HEART ASSESSMENT Left Ventricular Ejection Fraction: by LV Gram 60 % Normal LV wall motion Elevated Left Ventricular End Diastolic Pressure LVEDP: 19 mmHg LEFT MAIN: Angiographically normal LEFT ANTERIOR DECENDING ARTERY: PROX LAD: Previously placed stent is patent CIRCUMFLEX ARTERY: PROX CIRC: Mild calcification, Eccentric: Hazy: 25 % Stenosis MID CIRC: Mild calcification, Eccentric: 50 % Stenosis RIGHT CORONARY ARTERY: PROX RCA: Previously placed stent is patent MID RCA: Eccentric: 90 % Stenosis DISTAL RCA: Diffuse: Eccentric: 25 % Stenosis COMPLICATIONS No Complications PROCEDURE MEDICATIONS Versed 1 mg IV Oxygen: 2 L/min via nasal cannula Heparin 6000 unit(s) IV 01/19/2018 08:02:02 Nitro 200 mcg IC 01/19/2018 08:03:21 Nitro glycerin 25mg / 250ml D5W @ 5 mcg/min IV started 01/19/2018 08:15:24 Nitro 200 mcg IC 01/19/2018 08:15:24 Nitro 200 mcg IC 01/19/2018 08:19:12 Nitro glycerin 25mg / 250ml D5W @ 15 mcg/min (increased rate) 01/19/2018 10:22:43 Solu-medrol 125 mg IV 01/19/2018 07:22:00 SUMMARY OF HEMODYNAMIC DATA Time AIR REST ECG 07:22:08 AO 151/55 (91) SA 07:38:48 LV 169/7, 20 07:46:15 LV 170/6, 19 07:46:21 LV 178/12, 25 07:47:47 LVp 181/27, 60 07:47:54 AOp 171/59 (102) 07:47:59 RM AIR REST 08:41:27 Signed By Luis Alberto Madera MD On 01/19/2018 19:58:21 Luis Alberto Madera MD
--- NOTE | 2018-01-19 20:16 | PN_ITS ---
Subjective: She was seen and examined tonight, her and friends were in the room at the time of my examination, patient denies any chest pain or shortness of breath. Patient had a drug-eluting stent placed today. According to the patient and her , patient may be discharged tomorrow at the discretion of the cardiology service. - Physical Exam General: Alert, Oriented x3, Cooperative, No apparent distress, Well developed, Well nourished HEENT: Atraumatic, PERRLA, EOMI, Normocephalic Oral: Moist Mucosa Neck: Supple, No JVD, No Nuchal Rigidity, Trachea Midline, Thyroid Normal Size and Texture Lungs: Clear to auscultation, Normal air movement, No rhonchi, No wheeze, No rales Cardiovascular: Regular rate, Regular Rhythm, Normal S1, Normal S2, No murmurs, No Ectopic Activity, PMI Normal, No rub noted, No Gallop Abdomen: Bowel Sounds Present, Soft, Non Tender, Non-Distended, No hernias noted Extremities: No clubbing, No cyanosis, No edema, Capillary Refill Less than 3 Seconds Skin: No rashes, No breakdown Musculoskeletal: No Tenderness to Palpation of Joints or Extremities Neurological: Cranial nerves II-XII grossly intact, Neuro grossly intact, Sensory exam intact to light touch and pain, Coordination normal Psych/Mental Status: Normal Affect, Appropriate, Alert and oriented to time, place, person, mood and affect Vital Signs Temp Pulse Resp BP Pulse Ox 97.4 F L 68 15 162/56 H 94 01/19/18 18:00 01/19/18 19:00 01/19/18 19:00 01/19/18 19:00 01/19/18 19:00 Oxygen Flow Rate (L/min) 2 Oxygen Delivery Method Room Air Intake and Output for Last 24 Hours 01/17/18 01/18/18 01/19/18 23:59 23:59 23:59 Intake Total 778 / 1825 1150 / 1150 709 / 709 Output Total 300 / 300 Balance 778 / 1825 1150 / 1150 409 / 409 Laboratory Tests Past 24 Hrs 01/19/18 01/19/18 01/19/18 01:16 04:02 04:02 WBC 9.2 RBC 4.35 Hgb 13.3 Hct 40.6 MCV 93.3 MCH 30.6 MCHC 32.8 RDW 13.9 RDW Differential 47.4 H Plt Count 226 MPV 10.1 Immature Gran % (Auto) 0.100 Neut % (Auto) 87.0 H Lymph % (Auto) 10.7 L [place] % (Auto) 1.3 Eos % (Auto) 0.5 Baso % (Auto) 0.4 Absolute Neuts (auto) 8.0 H Absolute Lymphs (auto) 0.99 Total Counted Not Reportable PT 13.2 INR 1.0 APTT 27.7 Activated Clotting Time Sodium Potassium Chloride Carbon Dioxide Anion Gap BUN Creatinine Estim Creat Clear Calc Est GFR (MDRD) Af Amer Est GFR (MDRD) Non-Af BUN/Creatinine Ratio Glucose Calcium Urine Color Yellow Urine Clarity Clear Urine pH 7.0 Ur Specific [place] 1.005 Urine Protein Negative Urine Glucose (UA) Normal Urine Ketones Negative Urine Occult Blood Negative Urine Nitrite Negative Urine Bilirubin Negative Urine Urobilinogen Normal Ur Leukocyte Esterase 25 H Urine RBC 0 SEEN Urine WBC 0 SEEN Ur Squamous Epith Cells 0-5 SEEN Urine Bacteria 0 SEEN Urine Mucus 0 SEEN 01/19/18 01/19/18 04:02 08:23 WBC RBC Hgb Hct MCV MCH MCHC RDW RDW Differential Plt Count MPV Immature Gran % (Auto) Neut % (Auto) Lymph % (Auto) [place] % (Auto) Eos % (Auto) Baso % (Auto) Absolute Neuts (auto) Absolute Lymphs (auto) Total Counted PT INR APTT Activated Clotting Time 186 H Sodium 139 Potassium 4.9 Chloride 101 Carbon Dioxide 25.0 Anion Gap 13 BUN 24 H Creatinine 1.29 H Estim Creat Clear Calc 24.98 Est GFR (MDRD) Af Amer 51 L Est GFR (MDRD) Non-Af 42 L BUN/Creatinine Ratio 18.6 Glucose 154 H Calcium 9.3 Urine Color Urine Clarity Urine pH Ur Specific [place] Urine Protein Urine Glucose (UA) Urine Ketones Urine Occult Blood Urine Nitrite Urine Bilirubin Urine Urobilinogen Ur Leukocyte Esterase Urine RBC Urine WBC Ur Squamous Epith Cells Urine Bacteria Urine Mucus Medical Necessity - Tobacco Use Smoking Status: Never smoker Assessment/Plan All Active Problems (Last Updated 01/19/18 @ 10:07 by Julia Hagan) Angina pectoris (Acute) #1 Unstable angina secondary to occlusive coronary artery disease-patient had a drug-eluting stent placed today, cardiology is following #2 Occlusive coronary artery disease-status post drug-eluting stent placement #3 hypertension #4 hyperlipidemia Code Visit Inpatient E&M: 84549 Subs Hosp L2
[2018-01-19] MEDS: Atorvastatin Calcium 10 MG Tablet PO (21:13)
[2018-01-20] VITALS (17 sets, daily range): BP systolic 119–181; BP diastolic 37–64; PULSE 13–78; RESP 12–64; TEMP 36.6; O2SAT 95–99
[2018-01-20] MEDS: Heparin Injection (Vial) 5,000 UNIT/ML VIAL 5000 UNIT SC (05:12)
[2018-01-20] MEDS: Levothyroxine 88 MCG Tablet PO (05:12)
[2018-01-20 05:31] LABS: Hematocrit 34.6 % (37-47); Mean Corp Hgb Conc 34.7 g/gl (32-36); Mean Corpuscular Hgb 31.9 pg (27.0-32.0); Mean Platelet Vol. 9.8 fl (6.2-12.0); Platelet Count 230 K/mm3 (150-450); RBC Distribution Width CV 13.7 % (11.6-14.6); RBC Distribution Width SD 45.1 fl (35.1-43.9); Red Blood Count 3.76 M/mm3 (4.2-5.4); White Blood Count 19.3 K/mm3 (4.4-11.0)
[2018-01-20 05:32] LABS: Scan Indicated on CBC? Y/N NO
[2018-01-20 05:44] LABS: Anion Gap 12 (5-15); BUN 25 mg/dL (7-18); BUN/Creat Ratio 21.6 RATIO (10-20); Calcium,Total 8.9 mg/dL (8.5-10.1); Chloride 106 mmol/L (98-107); Creatinine, Serum 1.16 mg/dL (0.55-1.02); EST Glomerular Filtration Rate 48 mL/min (>60); Est Glom Filt Rate - Afr Amer 58 mL/min (>60); Estimated Creatinine Clearance 27.78 ml/min; Glucose 130 mg/dL (74-106); Potassium 4.1 mmol/L (3.5-5.1); Sodium Level 142 mmol/L (136-145)
[2018-01-20] MEDS: hydrALAZINE 25 MG Tablet PO (07:18)
[2018-01-20] MEDS: Aspirin E.C. 81 MG Tablet PO (09:12)
[2018-01-20] MEDS: Pantoprazole Sodium 40 MG Tablet PO (09:13)
[2018-01-20] MEDS: Triamterene 37.5MG/Hctz 25MG Capsule 1 CAP PO (09:13)
[2018-01-20] MEDS: TICAGRELOR 90 MG TABLET PO (09:13)
[2018-01-20] MEDS: Losartan Potassium 50 MG Tablet PO (09:15)
[2018-01-20] MEDS: Metoprolol(XL)Succ 50 MG Tablet PO (09:15)
--- NOTE | 2018-01-20 09:53 | PN.CARD_ITS ---
Subjectve: Patient doing very well this morning from a cardiac standpoint. Denies any chest pain or angina. Telemetry is negative overnight. EKG shows normal sinus rhythm, no acute changes. Right groin is clean/dry/intact with mild ecchymosis. It is nontender. There is no hematoma or bruit noted. 2+ DP and PT pulses bilaterally. Hemoglobin and creatinine are within nominal limits. Objective: Vital Signs Temp Pulse Resp BP Pulse Ox 97.8 F 67 16 147/55 H 98 01/20/18 04:00 01/20/18 09:15 01/20/18 09:00 01/20/18 09:00 01/20/18 09:00 Oxygen Flow Rate (L/min) 2 Oxygen Delivery Method Nasal Cannula Weight: 171 lb 8.314 oz Intake and Output for Last 24 Hours 01/18/18 01/19/18 01/20/18 23:59 23:59 23:59 Intake Total 1150 / 1150 709 / 709 1411 / 1411 Output Total 300 / 300 525 / 525 Balance 1150 / 1150 409 / 409 886 / 886 General: Awake, Alert, Oriented x 3 HEENT: PERRL, EOMI, Sclera Non Icteric Neck: Supple, Good ROM, No Lymph Node Enlargement Lungs: Clear to auscultation Cardiovascular: Regular Rhythm, Normal S1, Normal S2, No Murmurs, No Rubs, No Gallops Vascular: No Carotid Bruits, Normal Femoral Pulses, Normal Radial Pulses, Normal Dorsalis Pedal Pulse, Normal Posterior Tibial Pulses Abdomen: Bowel Sounds Present, Soft, Non Tender, No HSM, No Organomegaly Extremities: No Cyanosis, No Clubbing, No edema Neurological: No Focal Motor or Sensory Deficit 01/20/18 05:22: Sodium 142, Potassium 4.1, Chloride 106, Carbon Dioxide 24.0, Anion Gap 12, BUN 25 H, Creatinine 1.16 H, Est GFR (MDRD) Af Amer 58 L, Est GFR (MDRD) Non-Af 48 L, BUN/Creatinine Ratio 21.6 H, Glucose 130 H, Calcium 8.9 01/20/18 05:22: WBC 19.3 H, RBC 3.76 L, Hgb 12.0, Hct 34.6 L, MCV 92.0, MCH 31.9 , MCHC 34.7, RDW 13.7, RDW Differential 45.1 H, Plt Count 230, MPV 9.8 Rhythm: EKG: ECHO: Stress Test: Cardiac Cath: PCI: CT Surgery: Holter monitor: EPS: PPM: CXR: Chest CT Scan: Medical Necessity - Tobacco Use Smoking Status: Never smoker Assessment/Plan 1. Coronary artery disease: Patient is status post angioplasty and stenting of her mid distal RCA, and no additional lesions require intervention at this time. Her right groin is clean/dry/intact without evidence of thrills, bruits or hematoma. Her hemoglobin and creatinine are within nominal limits. She has had no chest pain. Telemetry is been negative. Her EKG is unchanged. At this point I recommend the patient be discharged home from a cardiac standpoint and follow-up with Dr. Madera going forward. She does not require any additional elective angioplasty or stenting at this time. Recommend to continue her aspirin, Brilinta, metoprolol, losartan and statin based medicines. She will be enrolled for cardiac rehab and participated once her groin is healed. 2. Hyperlipidemia: Continue statin based medicines. Repeat lipid profile in 6 weeks time. Her LDL should be less than 70. 3. Patient may be discharged home from a cardiac standpoint. Thank you very much for the opportunity to participate in the cardiac care of your patient. Code Visit Inpatient E&M: 32263 Subs Hosp L2
--- NOTE | 2018-01-20 10:00 | EKG12_ITS ---
Test Reason : AM EKG Blood Pressure : / mmHG Vent. Rate : 061 BPM Atrial Rate : 061 BPM P-R Int : 164 ms QRS Dur : 094 ms QT Int : 434 ms P-R-T Axes : 064 005 035 degrees QTc Int : 436 ms Normal sinus rhythm Voltage criteria for left ventricular hypertrophy Abnormal ECG Confirmed by LEO WYNN, PORTIA ([id number]), purchasing expeditor RIVERA EASTON ([id number]) on 01/23/2018 2:25:45 PM Referred By: DR STEINER Confirmed By:PORTIA BAILEY MD
--- NOTE | 2018-01-20 10:15 | DCINST_ITS ---
- Discharge Diagnoses Current Active Problems: Current Active and Chronic Problems (Last Updated 01/19/18 @ 10:07 by Julia Hagan ) Angina pectoris (Acute) Valvular heart disease (Chronic) You will use the following diet at home:: No restrictions Your food should be the consistency of: Regular Your liquids should be the consistency of: Regular/Thin Discharge Activity: Return to Normal Activity Weight Bearing Status: Full weight bearing Allergies/Adverse Reactions: Allergies Iodinated Contrast- Oral and IV Dye Allergy (Intermediate, Verified 06/10/17 09: 41) Rash ramipril [From Altace] Adverse Reaction (Severe, Verified 06/10/17 09:41) cough Medications to take at Discharge atorvastatin 10 mg tablet 10 mg PO DAILY 90 Days 06/10/17 levothyroxine 88 mcg tablet 88 mcg PO DAILY 90 Days 06/10/17 nitroglycerin 0.4 mg sublingual tablet 0.4 mg SUBLINGUAL Q5-15M PRN 10 Days # 2880 tab 06/10/17 potassium chloride ER 10 mEq tablet,extended release 10 meq PO QDAY 06/17/17 Ascorbic Acid [Vitamin C] 500 mg PO DAILY 01/16/18 Calcium Citrate 600 mg PO DAILY 01/16/18 Co Q-10 100 mg PO DAILY 01/16/18 Fish Oil 01/16/18 Folic Acid 400 mcg PO DAILY@0800 01/16/18 Metoprolol Succinate [Toprol Xl] 50 mg PO QDAY 01/16/18 Multivitamin [Daily Multiple Vitamin] 1 each PO DAILY 01/16/18 Triamterene/Hydrochlorothiazid [Dyazide 37.5-25 Capsule] 1 cap PO QDAY 01/16/18 Aspirin E.C. [Ecotrin] 81 mg PO DAILY@0800 tablet 01/20/18 Losartan Potassium [Cozaar] 50 mg PO BID #60 tab 01/20/18 Nitroglycerin [Nitrostat] 0.4 mg SUBLINGUAL Q5M PRN tablet 01/20/18 Ticagrelor [Brilinta] 90 mg PO BID #60 tab 01/20/18 The following prescriptions were given: Losartan Potassium [Cozaar] 50 mg PO BID #60 tab Ticagrelor [Brilinta] 90 mg PO BID #60 tab Primary Care Physician: Remy Turner DO [Primary Care Provider] - Please follow up with your Primary Care Physician in: in 2 weeks Test Results: Test results from this visit will be discussed in further detail at your follow- up appointment, if applicable. Please Follow Up With: Luis Alberto Madera MD When: as directed
--- NOTE | 2018-01-20 10:46 | CASEMGMT ---
RN CM Note: intro role of CM to patient and her who had questions re: f/u and Brillinta. Brillinta coupon given and explained. Discussed recommendation to ask pharmacist what cost would be after 30 day coupon. If difficulties arise with this, to contact cardiology office and let them know. Pt does have prescription coverage through her MCR supplement. Ria HUSTON RN ACM
--- NOTE | 2018-01-20 12:49 | PN.CARD_ITS ---
Subjectve: The patient is without any obvious recurrent symptoms. She has been up and about without any obvious difficulty. Objective: Vital Signs Temp Pulse Resp BP Pulse Ox 97.8 F 63 16 155/51 H 98 01/20/18 04:00 01/20/18 10:00 01/20/18 10:00 01/20/18 10:00 01/20/18 10:00 Oxygen Flow Rate (L/min) 2 Oxygen Delivery Method Room Air Weight: 171 lb 8.314 oz Intake and Output for Last 24 Hours 01/18/18 01/19/18 01/20/18 23:59 23:59 23:59 Intake Total 1150 / 1150 709 / 709 1411 / 1411 Output Total 300 / 300 525 / 525 Balance 1150 / 1150 409 / 409 886 / 886 General: Awake, Alert, Oriented x 3, No Acute Distress Neck: No JVD Lungs: Clear to auscultation Cardiovascular: Regular Rhythm, Normal S1, Normal S2 Vascular: Normal Femoral Pulses Abdomen: Bowel Sounds Present, Soft, Non Tender Extremities: No edema 01/20/18 05:22: Sodium 142, Potassium 4.1, Chloride 106, Carbon Dioxide 24.0, Anion Gap 12, BUN 25 H, Creatinine 1.16 H, Est GFR (MDRD) Af Amer 58 L, Est GFR (MDRD) Non-Af 48 L, BUN/Creatinine Ratio 21.6 H, Glucose 130 H, Calcium 8.9 01/20/18 05:22: WBC 19.3 H, RBC 3.76 L, Hgb 12.0, Hct 34.6 L, MCV 92.0, MCH 31.9 , MCHC 34.7, RDW 13.7, RDW Differential 45.1 H, Plt Count 230, MPV 9.8 Rhythm: Sinus rhythm EKG: Sinus rhythm; no acute ECG changes Medical Necessity - Tobacco Use Smoking Status: Never smoker Assessment/Plan 1. CAD status post PCI The patient does have a history of previous CAD and PCI. This is to the LAD and RCA distributions. She has undergone reevaluation. She was found to have progression of her RCA disease. She has subsequently undergone RCA PTCA/stent. She does have an element of progression of disease in her LCx distribution. If despite her current medical management she continues with symptoms and she may need to be considered for a staged procedure to the LCx distribution. In the interim she will continue medical therapy, outpatient follow-up, and cardiac rehabilitation therapy. 2. Valvular heart disease The patient does have an element of underlying valvular heart disease. In the past is not felt to be hemodynamically significant to proceed with either percutaneous or surgical based intervention. She will need to be followed and reassessed as deemed appropriate. 3. Hyperlipidemia She will need to continue risk factor evaluation and care as deemed appropriate. 4. Hypertension Her blood pressures have waxed and waned. She will need to continue her medical management with adjustment to try and keep her blood pressures under good control. 5. Hypothyroidism The patient will need to continue thyroid therapy as deemed appropriate by her primary care physicians. Comment: The patient's case has been discussed and reviewed with the patient and her spouse. This note was generated with [employer] dictation software. It may contain incorrect words, spelling, and punctuation that were not noted in checking the note before signing.
--- NOTE | 2018-01-21 20:32 | PCM.DC.SUM ---
Discharge Date and Diagnosis Date of Admission: 01/16/18 Date of Discharge: 01/20/18 - Primary Discharge Diagnosis #1 Unstable angina secondary to occlusive coronary artery disease right coronary artery #2 Occlusive coronary artery disease right coronary artery #3 hypertension #4 hyperlipidemia #5 chronic kidney disease stage III - Secondary Discharge Diagnosis Chronic Problems (Last Updated 01/19/18 @ 10:07 by Julia Hagan) Atherosclerotic heart disease of [place] coronary artery without angina pectoris (Chronic) Previous LEANDER to proxiimal to mid LAD 3.0 X 32 mm Taxus 02/23/[address] Daquan Meyer, [facility]: LEANDER to mid RCA 2.5 X 24 mm Synergy 01/19/[address] Patel,[facility] Valvular heart disease (Chronic) Hypothyroidism (Chronic) Aortic insufficiency (Chronic) Hyperlipidemia (Chronic) HTN (hypertension), benign (Chronic) S/P coronary artery stent placement (Chronic ~2003) Previous LEANDER to proxiimal to mid LAD 3.0 X 32 mm Taxus 02/23/[address] Daquan Meyer, [facility]: LEANDER to mid RCA 2.5 X 24 mm Synergy 01/19/[address] Patel,[facility] Hospital Course and Treatment Procedures: Cardiac catheterization - With drug-eluting stent placement, Nuclear stress test Summary of Care Provided: The patient is a 82 year old F who was seen in the emergency room at [facility] with a chief complaint of intermittent chest pain for 2 weeks. Workup in the emergency room included an EKG which showed a normal sinus rhythm at [address] changes, this was not significantly changed from an EKG in 2005. Troponin was negative, chest x-ray was normal. Patient was given aspirin in the emergency room, she was admitted to PCU and serial enzymes were obtained and they were negative. Patient underwent a nuclear stress test which could not exclude reversible myocardial ischemia. Patient then underwent a coronary angiogram which showed occlusive coronary disease in the mid right coronary artery. Patient then underwent insertion of the LEANDER stent in this artery without complications. Patient was admitted to the ICU and observed overnight, the following day on 01/20/18, patient was seen and examined felt to be in stable condition for discharge home. Discharge Activity: Return to Normal Activity Weight Bearing Status: Full weight bearing Home Medications: Medications to take at Discharge atorvastatin 10 mg tablet 10 mg PO DAILY 90 Days 06/10/17 levothyroxine 88 mcg tablet 88 mcg PO DAILY 90 Days 06/10/17 nitroglycerin 0.4 mg sublingual tablet 0.4 mg SUBLINGUAL Q5-15M PRN 10 Days #2880 tab 06/10/17 potassium chloride ER 10 mEq tablet,extended release 10 meq PO QDAY 06/17/17 Ascorbic Acid [Vitamin C] 500 mg PO DAILY 01/16/18 Calcium Citrate 600 mg PO DAILY 01/16/18 Co Q-10 100 mg PO DAILY 01/16/18 Fish Oil 01/16/18 Folic Acid 400 mcg PO DAILY@0800 01/16/18 Metoprolol Succinate [Toprol Xl] 50 mg PO QDAY 01/16/18 Multivitamin [Daily Multiple Vitamin] 1 each PO DAILY 01/16/18 Triamterene/Hydrochlorothiazid [Dyazide 37.5-25 Capsule] 1 cap PO QDAY 01/16/18 Aspirin E.C. [Ecotrin] 81 mg PO DAILY@0800 tablet 01/20/18 Losartan Potassium [Cozaar] 50 mg PO BID #60 tab 01/20/18 Nitroglycerin [Nitrostat] 0.4 mg SUBLINGUAL Q5M PRN tablet 01/20/18 Ticagrelor [Brilinta] 90 mg PO BID #60 tab 01/20/18 Following Prescrptions Were Given to Patient: Losartan Potassium [Cozaar] 50 mg PO BID #60 tab Ticagrelor [Brilinta] 90 mg PO BID #60 tab Primary Care Physician: Remy Turner DO [Primary Care Provider] - Please follow up with your Primary Care Physician in: in 2 weeks Please Follow Up With: Luis Alberto Madera MD When: as directed Disposition: Home Minutes spent on discharge:: 32 Patient Condition:: Stable Medical Necessity - Tobacco Use Smoking Status: Never smoker Meaningful Use Info Meaningful Use Diagnoses (Choose all that apply): None applicable Code Visit Inpatient E&M: 18773 Disch Hosp
--- NOTE | 2018-01-21 20:37 | DS.PCM_ITS ---
Discharge Date and Diagnosis Date of Admission: 01/16/18 Date of Discharge: 01/20/18 - Primary Discharge Diagnosis #1 Unstable angina secondary to occlusive coronary artery disease right coronary artery #2 Occlusive coronary artery disease right coronary artery #3 hypertension #4 hyperlipidemia #5 chronic kidney disease stage III - Secondary Discharge Diagnosis Chronic Problems (Last Updated 01/19/18 @ 10:07 by Julia Hagan) Atherosclerotic heart disease of [place] coronary artery without angina pectoris (Chronic) Previous LEANDER to proxiimal to mid LAD 3.0 X 32 mm Taxus 02/23/[address] Daquan Meyer, [facility]: LEANDER to mid RCA 2.5 X 24 mm Synergy 01/19/[address] Patel,[facility] Valvular heart disease (Chronic) Hypothyroidism (Chronic) Aortic insufficiency (Chronic) Hyperlipidemia (Chronic) HTN (hypertension), benign (Chronic) S/P coronary artery stent placement (Chronic ~2003) Previous LEANDER to proxiimal to mid LAD 3.0 X 32 mm Taxus 02/23/[address] Daquan Meyer, [facility]: LEANDER to mid RCA 2.5 X 24 mm Synergy 01/19/[address] Patel,[facility] Hospital Course and Treatment Procedures: Cardiac catheterization - With drug-eluting stent placement, Nuclear stress test Summary of Care Provided: The patient is a 82 year old F who was seen in the emergency room at [facility] with a chief complaint of intermittent chest pain for 2 weeks. Workup in the emergency room included an EKG which showed a normal sinus rhythm at [address] changes, this was not significantly changed from an EKG in 2005. Troponin was negative, chest x-ray was normal. Patient was given aspirin in the emergency room, she was admitted to PCU and serial enzymes were obtained and they were negative. Patient underwent a nuclear stress test which could not exclude reversible myocardial ischemia. Patient then underwent a coronary angiogram which showed occlusive coronary disease in the mid right coronary artery. Patient then underwent insertion of the LEANDER stent in this artery without complications. Patient was admitted to the ICU and observed overnight, the following day on 01/20/18, patient was seen and examined felt to be in stable condition for discharge home. Discharge Activity: Return to Normal Activity Weight Bearing Status: Full weight bearing Home Medications: Medications to take at Discharge atorvastatin 10 mg tablet 10 mg PO DAILY 90 Days 06/10/17 levothyroxine 88 mcg tablet 88 mcg PO DAILY 90 Days 06/10/17 nitroglycerin 0.4 mg sublingual tablet 0.4 mg SUBLINGUAL Q5-15M PRN 10 Days # 2880 tab 06/10/17 potassium chloride ER 10 mEq tablet,extended release 10 meq PO QDAY 06/17/17 Ascorbic Acid [Vitamin C] 500 mg PO DAILY 01/16/18 Calcium Citrate 600 mg PO DAILY 01/16/18 Co Q-10 100 mg PO DAILY 01/16/18 Fish Oil 01/16/18 Folic Acid 400 mcg PO DAILY@0800 01/16/18 Metoprolol Succinate [Toprol Xl] 50 mg PO QDAY 01/16/18 Multivitamin [Daily Multiple Vitamin] 1 each PO DAILY 01/16/18 Triamterene/Hydrochlorothiazid [Dyazide 37.5-25 Capsule] 1 cap PO QDAY 01/16/18 Aspirin E.C. [Ecotrin] 81 mg PO DAILY@0800 tablet 01/20/18 Losartan Potassium [Cozaar] 50 mg PO BID #60 tab 01/20/18 Nitroglycerin [Nitrostat] 0.4 mg SUBLINGUAL Q5M PRN tablet 01/20/18 Ticagrelor [Brilinta] 90 mg PO BID #60 tab 01/20/18 Following Prescrptions Were Given to Patient: Losartan Potassium [Cozaar] 50 mg PO BID #60 tab Ticagrelor [Brilinta] 90 mg PO BID #60 tab Primary Care Physician: Remy Turner DO [Primary Care Provider] - Please follow up with your Primary Care Physician in: in 2 weeks Please Follow Up With: Luis Alberto Madera MD When: as directed Disposition: Home Minutes spent on discharge:: 32 Patient Condition:: Stable Medical Necessity - Tobacco Use Smoking Status: Never smoker Meaningful Use Info Meaningful Use Diagnoses (Choose all that apply): None applicable Code Visit Inpatient E&M: 20546 Disch Hosp
== END 2018-01-20 11:12 | disposition home or self-care (01) | DRG 247 ==
LOC: ED 21:27 → PCU 22:39 → ICU 01-19 11:45
PROVIDERS: Family Medicine; Internal Medicine Cardiovascular Disease; Admitting Provider Hospitalist; Emergency Provider Emergency Medicine; Family Provider Family Medicine; PCP Family Medicine; Visit Provider Internal Medicine
DX: I25.110 Atherosclerotic heart disease of native coronary artery with unstable angina pectoris (principal); I38 Endocarditis, valve unspecified; I12.9 Hypertensive chronic kidney disease with stage 1 through stage 4 chronic kidney disease, or unspecified chronic kidney disease; N18.3 Chronic kidney disease, stage 3 (moderate); E78.5 Hyperlipidemia, unspecified; E03.9 Hypothyroidism, unspecified; K21.9 Gastro-esophageal reflux disease without esophagitis; Z95.5 Presence of coronary angioplasty implant and graft; Z79.82 Long term (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 aspirin; Z79.899 Other long term (current) drug therapy
CPT/HCPCS: 36415; 71045; 78452; 80048; 81001; 84484; 85025; 85027; 85347; 85610; 85730; 87086; 92928; 93005; 93017; 93458; 99152; 99153; 99283; A9500; C1760; J7030; Q9967; A4216; C1725; C1769; C1874; C1887; C1894; C9600; J2785

== ENCOUNTER → 2018-02-06 11:17 | Outpatient (CLI) | payer MEDICARE, OTHER, SELFPAY ==
[2018-02-06 12:26] LABS: Absolute Lymphocyte Count 1.54 X10^3/ul (0.83-4.51); Absolute Neutrophil Count 4.4 X10^3/uL (2.0-7.7); Basophil# 0.04 X10^3/uL; Basophil% 0.6 % (0-1); Eosinophil# 0.18 X10^3/uL; Eosinophils% 2.6 % (0-5); Hematocrit 36.9 % (37-47); Hemoglobin 12.2 g/dl (12.0-15.0); Lymphocyte # 1.54 X10^3/ul (4.0); Lymphocyte % 22.6 % (19-41); Mean Corp Hgb Conc 33.1 g/gl (32-36); Mean Corpuscular Volume 93.9 fL (81-99); Mean Platelet Vol. 10.1 fl (6.2-12.0); Monocyte# 0.67 X10^3/uL; Monocyte% 9.8 % (0-10); Neutrophil # 4.38 X10^3/uL (2.7-7.7); Neutrophil % 64.3 % (47-70); POSITIVE COUNT NO; POSITIVE DIFFERENTIAL NO; POSITIVE MORPHOLOGY NO; Platelet Count 271 K/mm3 (150-450); RBC Distribution Width CV 13.7 % (11.6-14.6); RBC Distribution Width SD 45.7 fl (35.1-43.9); Red Blood Count 3.93 M/mm3 (4.2-5.4); White Blood Count 6.8 K/mm3 (4.4-11.0)
[2018-02-06 12:42] LABS: Hemoglobin A1c 6.3 % (4.2-6.3)
[2018-02-06 12:50] LABS: Anion Gap 10 (5-15); BUN 19 mg/dL (7-18); BUN/Creat Ratio 16.7 RATIO (10-20); Calcium,Total 9.7 mg/dL (8.5-10.1); Chloride 101 mmol/L (98-107); Creatinine, Serum 1.14 mg/dL (0.55-1.02); EST Glomerular Filtration Rate 49 mL/min (>60); Est Glom Filt Rate - Afr Amer 59 mL/min (>60); Glucose 110 mg/dL (74-106); Potassium 4.1 mmol/L (3.5-5.1); Sodium Level 140 mmol/L (136-145); Thyroid Stim Hormone (TSH) 0.73 uIU/mL (0.358-3.74)
[2018-02-07 08:57] LABS: T4 Free Direct 1.05 ng/dL (0.76-1.46)
== END ==
PROVIDERS: Family Provider Family Medicine; PCP Family Medicine; Visit Provider Family Medicine
DX: I10 Essential (primary) hypertension (principal); E03.9 Hypothyroidism, unspecified; R73.01 Impaired fasting glucose
CPT/HCPCS: 36415; 80048; 83036; 84439; 84443; 85025

== ENCOUNTER → 2018-02-10 07:50 | Outpatient (CLI) | payer MEDICARE, OTHER, SELFPAY ==
--- NOTE | 2018-02-10 07:54 | PCM.CR.ITP ---
General Information - General Information Admitting Diagnosis: PTCA w/ coronary stent placement - Education/Goals Barriers to Learning: None Individual Counseling: Initial Assessment: Abnormal Cholesterol Levels, Overweight/Obesity, Hypertension, Sedentary Lifestyle Cardiac Rehabilitation Goals: 1. Maintain the individual as the primary focus of care. 2. To improve the patient's quality of life. 3. Identification of cardiac risk factors and provide cardiac risk factor management. 4. Enhance the psychosocial status of the patient. 5. Reconditioning enough to allow the patient to resume customary activities. 6. Control symptoms of cardiac disease Scale for measuring improvement of personal goals: Enter appropriate number in Comments. 2 = Unchanged. 3 = Slightly Better. 4 = Moderate Improvement. 5 = Met my Goal Personal Goals: Initial Assessment: Improve energy level, Participate in home exercise program, Improve knowledge of cardiac disease, Improve muscle strength and endurance, Control risk factors (learn risk factor modification) Exercise - Initial Assessment - Visit Date of Eval: 02/10/18 - established ITP; start CR on - Stages of Change Stages of Change:: Action - Exercise Prescription Mode:: Treadmill, Biodyne, Airdyne, NuStep Angina with exercise?: No Target Heart Rate:: 105-114 - Hypertension Do any of the following apply?: Yes, Medication Resting Blood Pressure:: 122/68 - Intervention Home Exercise/Activity Goal:: Moderate Exercise 30 min/day x 5 days/wk - Education Goals:: Warm-up, RPE CARINE Scale, S/S, Safe Exercise, Self-Monitoring - Exercise Program Goals Exercise Program Goals: Aerobic Activity >30 min Nutrition - Initial Assessment - Program Goals Nutrition Program Goals: LDL <70. Total Cholesterol <200. HDL >45. Triglycerides <150. HgbA1C <7%. BMI <25 - Visit Date of Assessment:: 02/10/18 - Stages of Change Stages of Change:: Action - Diabetes Diabetes:: No Do you monitor your blood sugar at home?: No - Weight Management Height: 4 ft 11.8 in Weight:: 171 lb Body Fat %:: 31.6 - Intervention Referral to dietitian:: Yes Referral to Diabetic Clinic:: No Will attend diet classes:: Yes - Education Gave educational materials for:: Healthy eating Tobacco - Initial Assessment - Program Goals Tobacco Program Goals: Complete smoking cessation. Attend education classes. Improve Knowledge Test score - Stage of Change Stages of Change:: Action - Learning Barriers Learning Barriers: Ready to Learn - Family Support Do you have family support?: Yes - Tobacco Use Tobacco Use: Non-smoker - Intervention Smoking Cessation Referral:: No Education Schedule Given:: Yes - Education Gave educational material for:: Coronary artery disease, Risk factors, Sexuality, Medical compliance, Cardiac A&P, Angina signs & symptoms Psychosocial - Initial Assess - Target Goals Target Goals: Assess presence or absence of depression. Using a valid screening tool, maximizes coping skills. Positive support system - Stages of Change Stages of Change:: Action - Psychosocial Test Tool Used:: HANDS Depression Questionnaire - Intervention PS - Interventions: Yes Attend Stress Management Classes, No Referral to Mental Health, No Referral to [facility] Case Management, No Referral to Physician, No Uses Stress Management Skills - Education Gave educational materials for:: Coping techniques, Signs & symptoms of depression, Stress management, Relaxation techniques - Patient/Program Goal Preventative Medication(s):: Aspirin, Clopidogrel, Statin/lipid - Assistive Devices Assistive Devices:: None Fall Risk Assessed:: Yes Patient Health Questionnaire Initial Assessment 1. Little interest or pleasure in doing things: Not at all 2. Feeling down, depressed, or hopeless: Not at all 3. Trouble falling or staying asleep, or sleeping too much: Not at all 4. Feeling tired or having little energy: More than half the days 5. Poor appetite or overeating: Not at all 6. Feeling bad about yourself -- or that you are a failure or have let yourself or your family down: Not at all 7. Trouble concentrating on things, such as reading the newspaper or watching television: Not at all 8. Moving or speaking so slowly that other people could have noticed. Or the opposite - being so fidgety or restless that you have been moving around a lot more than usual: Not at all 9. Thoughts that you would be better off , or of hurting yourself in some way: Not at all How difficult have these problems made it for you to do your work, take care of things at home, or get along with other people?: Not difficult at all Total Score: 2 SARAH-Q SV Test - Statements CAD is a disease of the arteries in the heart: False Examples of risk factors for heart disease: True Angina is chest pain or discomfort: True The benefits of resistance training include: True Eating more meat and dairy products: False Anti-platelet medications such as aspirin are important: True The only effective way to manage stress: False An exercise warm-up slowly increases heart rate: I Don't Know Prepared, processed foods usually have high sodium: True Depression is common after a heart attack: I Don't Know The statin medications lower cholesterol: True To control blood pressure, lower the amount of sodium: True If someone gets chest discomfort during walking: False Transfats are partially hydrogenated vegetable oils: True Sleep apnea that is not treated increases the risk: I Don't Know To control cholesterol, one should become a vegetarian: False Someone knows if he/she is exercising at the right level: True Diabetes cannot be prevented with exercise & health eating: False Stress is a large risk for heart attack: True A diet that can help lower blood pressure is rich in: True - Total Score Total Correct Responses: 17 Self-Efficacy Initial Assessment We would like to know how confident you are in doing certain activities. Please select your confidence level for:: Select your confidence level for the following using the scale 1-10 where 1 is not at all confident and 10 is totally confident. Your score is the average of all 6 responses. Fatigue: How confident are you that you can keep the fatigue caused by your disease from interfering with the things you want to do? Select Number: 6 Physical Discomfort or Pain: How confident are you that you can keep the physical discomfort or pain of your disease from interfering with the things you want to do? Select Number: 10 Emotional Distress: How confident are you that you can keep the emotional distress caused by your disease from interfering with the things you want to do? Select Number: 10 Other Symptoms or Health Problems: How confident are you that you can keep other symptoms or health problems from interfering with the things you want to do? Select Number: 10 Different Tasks and Activities: How confident are you that you can do the different tasks and activities needed to manage your health condition so as to reduce your need to see a doctor? Select Number: 8 Medication: How confident are you that you can do things other than just taking medication to reduce how much your illness affects your everyday life? Select Number: 8 Total Score:: 8 Nutrition Survey - Nutrition Survey Instructions Scoring Instructions: Scoring is as follows: Yes = 1 points. No = 0 point. Patient score that is >/=12 is considered to be at potential nutritional risk and could benefit from a referral to a registered dietitian. - Nutrition Survey Initial Have you lost >10 lbs over the past 2 months without trying?: No Are you following a special diet at home for diabetes, low fat, or low salt?: No Are you interested in meeting with a dietitian for help understanding your diet?: No Do you eat less than 3 meals a day?: No Do you eat fatty meats (cadet, sausage, ribs, etc), fried foods, desserts, large amounts of salad dressings, margarine, butter, or cheese most days?: No Do you have food allergies? [Enter types in comment field]: No Do you eat in restaurants more than 3 times a week?: No Do you season food with salt, seasoning salt, or garlic salt?: Yes Do you used canned, boxed, frozen meals, or soups, seasoning packets?: No Total Score:: 1
--- NOTE | 2018-02-10 07:54 | PCM.CR.HP2 ---
CR - History & Physical - General Arrival date:: 02/10/18 Arrival time:: 07:55 Date of Referral:: 01/19/18 Date of CR Evaluation:: 02/10/18 Referring Physician: Cassy Primary Diagnosis: PTCA - History of Present Cardiac Event Onset Date: Enter Onset Date of cardiac illnesses in Comment field below PTCA or coronary stenting:: Yes - 01/19/2018; previous stents in 2003. Type of Symptoms:: upper gastric discomfort routinely, then later started having intermittent jaw pain. While shopping at local [employer] felt at times was going to pass out. Interventions with present event:: Called Dr. stanley had stress test, then cath/ptca Were there any complications?: shortness of breath; going to finish brilinta change to plavix - Medications Home Medications: Ambulatory Orders Medication Instructions Recorded atorvastatin 10 mg tablet 10 mg PO DAILY 90 Days 06/10/17 levothyroxine 88 mcg tablet 88 mcg PO DAILY 90 Days 06/10/17 nitroglycerin 0.4 mg sublingual 0.4 mg SUBLINGUAL Q5-15M PRN 10 06/10/17 tablet Days #2880 tab potassium chloride ER 10 mEq 10 meq PO QDAY 06/17/17 tablet,extended release Ascorbic Acid [Vitamin C] 500 mg PO DAILY 01/16/18 Calcium Citrate 600 mg PO DAILY 01/16/18 Co Q-10 100 mg PO DAILY 01/16/18 Fish Oil 01/16/18 Folic Acid 400 mcg PO DAILY@0800 01/16/18 Metoprolol Succinate [Toprol Xl] 50 mg PO QDAY 01/16/18 Multivitamin [Daily Multiple 1 each PO DAILY 01/16/18 Vitamin] Triamterene/Hydrochlorothiazid 1 cap PO QDAY 01/16/18 [Dyazide 37.5-25 Capsule] Aspirin E.C. [Ecotrin] 81 mg PO DAILY@0800 tablet 01/20/18 Nitroglycerin [Nitrostat] 0.4 mg SUBLINGUAL Q5M PRN tablet 01/20/18 clopidogrel 75 mg tablet 75 mg PO QDAY #90 tab 02/03/18 losartan 25 mg tablet 25 mg PO BID tab 02/03/18 - Allergies Allergies/Adverse Reactions: Allergies Iodinated Contrast- Oral and IV Dye Allergy (Intermediate, Verified 02/03/18 10:36) Rash ramipril [From Altace] Adverse Reaction (Severe, Verified 02/03/18 10:36) cough - Sleep Disorder Evaluation Hx of Sleep Apnea: No Do you snore loudly (louder than talking or can be heard through closed doors)?: Yes - claims she does/ sleeps in recliner occasionally. Do you often feel tired/ fatigued/ sleepy during daytime?: Yes - routinely takes afternoon naps. Has anyone observed you stop breathing during sleep?: No History of Hypertension (for STOP score): Yes STOP Results: Positive Advanced Directives - Advanced Directives Power of Seed Buyer: Yes - Oldest son is legal POA Healthcare Living Will: Yes Advance Directives Information Provided: No Advance Directives on File: No - Recommended getting them filed. DNR Order?:: No - MOLST See MOLST form: No Past Medical History - Past Medical Illness Medical History: Past Medical History (Last Updated 01/19/18 @ 10:07 by Julia Hagan) Atherosclerotic heart disease of [place] coronary artery without angina pectoris (Chronic) I25.10 Previous LEANDER to proxiimal to mid LAD 3.0 X 32 mm Taxus 02/23/[address] Daquan Meyer, [facility]: LEANDER to mid RCA 2.5 X 24 mm Synergy 01/19/[address] Patel,[facility] Aortic insufficiency (Chronic) I35.1 Hyperlipidemia (Chronic) E78.5 HTN (hypertension), benign (Chronic) I10 - Past Surgical History Surgical History: Past Surgical History (Last Updated 02/03/18 @ 10:37 by Johanna Winter) S/P coronary artery stent placement (Chronic) Onset Date: ~2003 Z95.5 Previous LEANDER to proxiimal to mid LAD 3.0 X 32 mm Taxus 02/23/[address] Daquan Meyer, [facility]: LEANDER to mid RCA 2.5 X 24 mm Synergy 01/19/[address] Patel,[facility] History of cholecystectomy Z90.49 Surgical History: angioplasty, cholecystectomy, - - Cardiac stents in 2003. - Family History Summary Family History: Family History (Last Updated 02/03/18 @ 10:38 by Johanna Winter) Mother , Age 63 Myocardial infarction Father , Age 28 Colon cancer Social History - Smoking History Smoking Status: Never smoker Hx Tobacco Use: No Hx Smoking Exposure: No - Alcohol Use Alcohol Usage: No - Substance Abuse Hx Substance Use: No - Occupation Occupation (List type of work in comments):: Retired - Hobbies, Recreation, Social Activities Hobbies: Other - cards, bridge club, travel, auctions. Recreational Activities: I am able to engage in all my recreational activities, I am able to engage in most, but not all activities Social Environment - Status Marital Status: - Current Living Arrangements Living Environment:: Spouse - Children How many children do you have?: 4 - 4 grown children Do any of your children live nearby?: Yes - local, [place], [facility]. - Safety Do you feel safe in your surroundings?: Yes - Assistance Do you need any assistance at home?: none Review of Systems - Review of Systems Hints: Right click = Denies ([place]ash). Left click = Reports ([place]) Review of Present Symptoms: Reports: Shortness of Breath with Exertion - more since started Brilinta; Dr. Madera is changing her to plavix after she finishes her 30 day supply of Brilinta., Fatigue, Appetite - Normal, Appetite - Special Diet - 1800 caloris low fat, no added salt, watch red meats, Sleep - Normal - 6-8 hours sleep nightly. 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 She previously had similar symptoms in 2004 and had 3 stents placed then. - Vital Signs Temperature: 98.7 F Respiratory Rate: 16 Pulse Ox: 95 - room air Blood Pressure: 122/68 Nailbeds:: pink - Pulse Pulse Rate: 60 Pulse Rhythm: Regular - Hypertension How long have you been treated?: 2004 On medication(s)?: yes Blood Pressure Sitting - Left Arm: 122/68 - Obesity Height: 4 ft 11.8 in Weight:: 171 lb Weight in Pounds: 171.0 lbs Weight Source: Standing Scale Body Mass Index (BMI): 33.6 Nutritional Referral for Obesity: Yes - Patient could benefit from structured weight loss and cardiac diet assistan - Physical Inactivity Physical Inactivity: None - used to walk routinely, has home treadmill she can utilize. - Risk Stratification Risk Guidelines: Lowest Risk: Risk Factor for Smoking, Risk Factor for Dyslipidemia, Risk Factor for Diabetes, Risk Factor for Hypertension, Risk Factor for Depression, Moderate Risk: Risk Factor for Sedentary Lifestyle - is active but no regular exercise., Highest Risk: Risk Factor for Obesity - For Smoking Smoking Risk Guidelines: Smoking Low Risk: None or quit greater than 6 months ago. Smoking Moderate Risk: Smoker or quit 6 months or less ago. Smoking High Risk: Smoker - For Dyslipidemia Dyslipidemia Risk Guidelines: Low Risk: Moderate Risk: High Risk: 15-25% fat 25.1-29% fat >/= 30% fat. <7% sat fat 7-9% sat fat >9% sat fat. <150 mg chol 150-299 mg chol >/= 300 mg chol. LDL <100 LDL 100-129 LDL >/= 130. Chol/HDL ratio <5.0 Chol/HDL ratio 5.0-6.0 Chol/HDL ratio >6.0. Triglycerides <100 Triglycerides 100-149 Triglycerides >/= 150 - For Diabetes Mellitus Diabetes Risk Guidelines: Diabetes Low Risk: HgA1c <6.5% and/or FBG <120. Diabetes Moderate Risk: HgA1c 6.6-7.9% and/or FBG 120-180. Diabetes High Risk: HgA1c >/= 8% and/or FBG >180 - For Obesity/Overweight Obesity/Overweight Risk Guidelines: Obesity Low Risk: BMI <25.0. Obesity Moderate Risk: BMI 25-29.9. Obesity High Risk: BMI >/= 30.0 - For Hypertension Hypertension Risk Guidelines: Hypertension Low Risk: Systolic <120 and Diastolic <80. Hypertension Moderate Risk: Systolic 120-139 and Diastolic 80-89. Hypertension High Risk: Systolic >/= 140 and Diastolic >/= 90 - For Sedentary Lifestyle Sedentary Lifestyle Risk Guidelines: Sedentary Lifestyle Low Risk: >/= 1,500 kcal/week. Sedentary Lifestyle Moderate Risk: 700-1,499 kcal/week. Sedentary Lifestyle High Risk: < 700 kcal/week - For Depression Depression Risk Guidelines: Depression Low Risk: Not clinically depressed. Depression Moderate Risk: Mildly depressed. Depression High Risk: Clinically depressed - Family History Family History: Family History (Last Updated 02/03/18 @ 10:38 by Johanna Winter) Mother Myocardial infarction Father Colon cancer Motivation - Motivation to Participate On a scale of 1 to 10, how prepared are you to commit to attending program?: 10 What do you see as barriers to successfully being able to complete the program?: none What do you see as the benefits of succesfully completing the program? In other words, what do you hope to get out of participating in the program?: better stamina, be able to be more active. Are there issues you are dealing with that will interfere with completing the program?: none Do you have a spouse or signficant other, family or friends who will help support you to complete the program?: yes.
--- NOTE | 2018-02-10 07:59 | CR.HP_ITS ---
CR - History & Physical - General Arrival date:: 02/10/18 Arrival time:: 07:55 Date of Referral:: 01/19/18 Date of CR Evaluation:: 02/10/18 Referring Physician: Cassy Primary Diagnosis: PTCA - History of Present Cardiac Event Onset Date: Enter Onset Date of cardiac illnesses in Comment field below PTCA or coronary stenting:: Yes - 01/19/2018; previous stents in 2003. Type of Symptoms:: upper gastric discomfort routinely, then later started having intermittent jaw pain. While shopping at local [place] felt at times was going to pass out. Interventions with present event:: Called Dr. stanley had stress test, then cath/ptca Were there any complications?: shortness of breath; going to finish brilinta change to plavix - Medications Home Medications: Ambulatory Orders Medication Instructions Recorded atorvastatin 10 mg tablet 10 mg PO DAILY 90 Days 06/10/17 levothyroxine 88 mcg tablet 88 mcg PO DAILY 90 Days 06/10/17 nitroglycerin 0.4 mg sublingual 0.4 mg SUBLINGUAL Q5-15M PRN 10 06/10/17 tablet Days #2880 tab potassium chloride ER 10 mEq 10 meq PO QDAY 06/17/17 tablet,extended release Ascorbic Acid [Vitamin C] 500 mg PO DAILY 01/16/18 Calcium Citrate 600 mg PO DAILY 01/16/18 Co Q-10 100 mg PO DAILY 01/16/18 Fish Oil 01/16/18 Folic Acid 400 mcg PO DAILY@0800 01/16/18 Metoprolol Succinate [Toprol Xl] 50 mg PO QDAY 01/16/18 Multivitamin [Daily Multiple 1 each PO DAILY 01/16/18 Vitamin] Triamterene/Hydrochlorothiazid 1 cap PO QDAY 01/16/18 [Dyazide 37.5-25 Capsule] Aspirin E.C. [Ecotrin] 81 mg PO DAILY@0800 tablet 01/20/18 Nitroglycerin [Nitrostat] 0.4 mg SUBLINGUAL Q5M PRN tablet 01/20/18 clopidogrel 75 mg tablet 75 mg PO QDAY #90 tab 02/03/18 losartan 25 mg tablet 25 mg PO BID tab 02/03/18 - Allergies Allergies/Adverse Reactions: Allergies Iodinated Contrast- Oral and IV Dye Allergy (Intermediate, Verified 02/03/18 10: 36) Rash ramipril [From Altace] Adverse Reaction (Severe, Verified 02/03/18 10:36) cough - Sleep Disorder Evaluation Hx of Sleep Apnea: No Do you snore loudly (louder than talking or can be heard through closed doors)? : Yes - claims she does/ sleeps in recliner occasionally. Do you often feel tired/ fatigued/ sleepy during daytime?: Yes - routinely takes afternoon naps. Has anyone observed you stop breathing during sleep?: No History of Hypertension (for STOP score): Yes STOP Results: Positive Advanced Directives - Advanced Directives Power of Marble Worker: Yes - Oldest son is legal POA Healthcare Living Will: Yes Advance Directives Information Provided: No Advance Directives on File: No - Recommended getting them filed. DNR Order?:: No - MOLST See MOLST form: No Past Medical History - Past Medical Illness Medical History: Past Medical History (Last Updated 01/19/18 @ 10:07 by Julia Hagan) Atherosclerotic heart disease of [place] coronary artery without angina pectoris (Chronic) I25.10 Previous LEANDER to proxiimal to mid LAD 3.0 X 32 mm Taxus 02/23/[address] Daquan Meyer, [facility]: LEANDER to mid RCA 2.5 X 24 mm Synergy 01/19/[address] Patel,[facility] Aortic insufficiency (Chronic) I35.1 Hyperlipidemia (Chronic) E78.5 HTN (hypertension), benign (Chronic) I10 - Past Surgical History Surgical History: Past Surgical History (Last Updated 02/03/18 @ 10:37 by Johanna Winter) S/P coronary artery stent placement (Chronic) Onset Date: ~2003 Z95.5 Previous LEANDER to proxiimal to mid LAD 3.0 X 32 mm Taxus 02/23/[address] Daquan Meyer, [facility]: LEANDER to mid RCA 2.5 X 24 mm Synergy 01/19/[address] Patel,[facility] History of cholecystectomy Z90.49 Surgical History: angioplasty, cholecystectomy, - - Cardiac stents in 2003. - Family History Summary Family History: Family History (Last Updated 02/03/18 @ 10:38 by Johanna Winter) Mother , Age 63 Myocardial infarction Father , Age 28 Colon cancer Social History - Smoking History Smoking Status: Never smoker Hx Tobacco Use: No Hx Smoking Exposure: No - Alcohol Use Alcohol Usage: No - Substance Abuse Hx Substance Use: No - Occupation Occupation (List type of work in comments):: Retired - Hobbies, Recreation, Social Activities Hobbies: Other - cards, bridge club, travel, auctions. Recreational Activities: I am able to engage in all my recreational activities, I am able to engage in most, but not all activities Social Environment - Status Marital Status: - Current Living Arrangements Living Environment:: Spouse - Children How many children do you have?: 4 - 4 grown children Do any of your children live nearby?: Yes - [place], [place], [facility]. - Safety Do you feel safe in your surroundings?: Yes - Assistance Do you need any assistance at home?: none Review of Systems - Review of Systems Hints: Right click = Denies (Slash). Left click = Reports ([place]) Review of Present Symptoms: Reports: Shortness of Breath with Exertion - more since started Brilinta; Dr. Madera is changing her to plavix after she finishes her 30 day supply of Brilinta., Fatigue, Appetite - Normal, Appetite - Special Diet - 1800 caloris low fat, no added salt, watch red meats, Sleep - Normal - 6-8 hours sleep nightly. 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 She previously had similar symptoms in 2004 and had 3 stents placed then. - Vital Signs Temperature: 98.7 F Respiratory Rate: 16 Pulse Ox: 95 - room air Blood Pressure: 122/68 Nailbeds:: pink - Pulse Pulse Rate: 60 Pulse Rhythm: Regular - Hypertension How long have you been treated?: 2004 On medication(s)?: yes Blood Pressure Sitting - Left Arm: 122/68 - Obesity Height: 4 ft 11.8 in Weight:: 171 lb Weight in Pounds: 171.0 lbs Weight Source: Standing Scale Body Mass Index (BMI): 33.6 Nutritional Referral for Obesity: Yes - Patient could benefit from structured weight loss and cardiac diet assistan - Physical Inactivity Physical Inactivity: None - used to walk routinely, has home treadmill she can utilize. - Risk Stratification Risk Guidelines: Lowest Risk: Risk Factor for Smoking, Risk Factor for Dyslipidemia, Risk Factor for Diabetes, Risk Factor for Hypertension, Risk Factor for Depression, Moderate Risk: Risk Factor for Sedentary Lifestyle - is active but no regular exercise., Highest Risk: Risk Factor for Obesity - For Smoking Smoking Risk Guidelines: Smoking Low Risk: None or quit greater than 6 months ago. Smoking Moderate Risk: Smoker or quit 6 months or less ago. Smoking High Risk: Smoker - For Dyslipidemia Dyslipidemia Risk Guidelines: Low Risk: Moderate Risk: High Risk: 15-25% fat 25.1-29% fat >/= 30% fat. <7% sat fat 7-9% sat fat >9% sat fat. <150 mg chol 150-299 mg chol >/= 300 mg chol. LDL <100 LDL 100-129 LDL >/= 130. Chol/HDL ratio <5.0 Chol/HDL ratio 5.0-6.0 Chol/HDL ratio >6.0. Triglycerides <100 Triglycerides 100-149 Triglycerides >/= 150 - For Diabetes Mellitus Diabetes Risk Guidelines: Diabetes Low Risk: HgA1c <6.5% and/or FBG <120. Diabetes Moderate Risk: HgA1c 6.6-7.9% and/or FBG 120-180. Diabetes High Risk: HgA1c >/= 8% and/or FBG >180 - For Obesity/Overweight Obesity/Overweight Risk Guidelines: Obesity Low Risk: BMI <25.0. Obesity Moderate Risk: BMI 25-29.9. Obesity High Risk: BMI >/= 30.0 - For Hypertension Hypertension Risk Guidelines: Hypertension Low Risk: Systolic <120 and Diastolic <80. Hypertension Moderate Risk: Systolic 120-139 and Diastolic 80-89. Hypertension High Risk: Systolic >/= 140 and Diastolic >/= 90 - For Sedentary Lifestyle Sedentary Lifestyle Risk Guidelines: Sedentary Lifestyle Low Risk: >/= 1 ,500 kcal/week. Sedentary Lifestyle Moderate Risk: 700-1,499 kcal/week. Sedentary Lifestyle High Risk: < 700 kcal/week - For Depression Depression Risk Guidelines: Depression Low Risk: Not clinically depressed. Depression Moderate Risk: Mildly depressed. Depression High Risk: Clinically depressed - Family History Family History: Family History (Last Updated 02/03/18 @ 10:38 by Johanna Winter) Mother Myocardial infarction Father Colon cancer Motivation - Motivation to Participate On a scale of 1 to 10, how prepared are you to commit to attending program?: 10 What do you see as barriers to successfully being able to complete the program? : none What do you see as the benefits of succesfully completing the program? In other words, what do you hope to get out of participating in the program?: better stamina, be able to be more active. Are there issues you are dealing with that will interfere with completing the program?: none Do you have a spouse or signficant other, family or friends who will help support you to complete the program?: yes.
[2018-02-10 08:13] VITALS: BP 122/68; PULSE 60; RESP 16; TEMP 37.1; O2SAT 95; BMI 33.6
[2018-02-10 09:10] VITALS: BP 122/68
== END ==
PROVIDERS: Family Provider Family Medicine; PCP Family Medicine; Visit Provider Internal Medicine Cardiovascular Disease
DX: Z95.5 Presence of coronary angioplasty implant and graft (principal)

== ENCOUNTER 2018-02-13 14:15 | Outpatient (RCR) | payer MEDICARE, OTHER, SELFPAY | END 2018-02-13 23:59 | LOC: CR 14:15 | PROVIDERS: Family Provider Family Medicine; PCP Family Medicine; Visit Provider Internal Medicine Cardiovascular Disease | DX: I25.10 Atherosclerotic heart disease of native coronary artery without angina pectoris (principal); Z95.5 Presence of coronary angioplasty implant and graft | CPT/HCPCS: 93798 ==

== ENCOUNTER 2018-03-06 14:15 | Outpatient (RCR) | payer MEDICARE, OTHER, SELFPAY ==
--- NOTE | 2018-03-11 09:26 | PCM.CR.ITP ---
General Information - General Information Admitting Diagnosis: PTCA with coronary artery stenting - Education/Goals Cardiac Rehabilitation Goals: 1. Maintain the individual as the primary focus of care. 2. To improve the patient's quality of life. 3. Identification of cardiac risk factors and provide cardiac risk factor management. 4. Enhance the psychosocial status of the patient. 5. Reconditioning enough to allow the patient to resume customary activities. 6. Control symptoms of cardiac disease Scale for measuring improvement of personal goals: Enter appropriate number in Comments. 2 = Unchanged. 3 = Slightly Better. 4 = Moderate Improvement. 5 = Met my Goal Exercise - 30-day Assessment - Visit Date of Eval: 03/11/18 Session #:: 9 - Stages of Change Stages of Change:: Action - Exercise Prescription Mode:: Treadmill, Biodyne, NuStep Frequency (x/week): 3 Duration:: 30 METs - Progression: 0.5-1 MET as tolerated: 4 Target Heart Rate:: 105-114 max HR 94 - Hypertension Resting Blood Pressure:: 122/54 Peak Exercise Blood Pressure:: 170/50 - Intervention Home Exercise/Activity Goal:: Sitting Time <3 hrs/day - Education Goals:: Warm-up, RPE CARINE Scale, S/S, Safe Exercise, Self-Monitoring - Exercise Program Goals Exercise Program Goals: Aerobic Activity >30 min, B/P <130/80 Nutrition - Initial Assessment - Program Goals Nutrition Program Goals: LDL <70. Total Cholesterol <200. HDL >45. Triglycerides <150. HgbA1C <7%. BMI <25 - Diabetes Do you monitor your blood sugar at home?: No Nutrition - 30-Day Assessment - Program Goals Nutrition Program Goals: LDL <70. Total Cholesterol <200. HDL >45. Triglycerides <150. HgbA1C <7%. BMI <25 - Visit Date of Eval: 03/11/18 - Stages of Change Stages of Change:: Action - Weight Management Weight:: 77.337 kg - Intervention Referral to dietitian:: No Referral to Diabetic Clinic:: No Will attend diet classes:: Yes - Education Attended class for:: Signs & symptoms of hypoglycemia, Signs & symptoms of hyperglycemia, Relate diabetes to coronary artery disease, Healthy eating Tobacco - Initial Assessment - Program Goals Tobacco Program Goals: Complete smoking cessation. Attend education classes. Improve Knowledge Test score - Learning Barriers Learning Barriers: Ready to Learn Tobacco - 30-Day Assessment - Program Goals Tobacco Program Goals: Complete smoking cessation. Attend education classes. Improve Knowledge Test score - Stage of Change Stages of Change:: Action - Learning Barriers Learning Barriers: Participates in education - Family Support Do you have family support?: Yes - Tobacco Use Tobacco Use: Non-smoker Do you use smokeless tobacco?: No - Intervention Smoking Cessation Referral:: No Individual Education/Counseling:: No Education Schedule Given:: Yes - Education Attended class for:: Tobacco triggers, Coronary artery disease, Risk factors, Sexuality, Medical compliance, Cardiac A&P, Angina signs & symptoms Psychosocial - Initial Assess - Target Goals Target Goals: Assess presence or absence of depression. Using a valid screening tool, maximizes coping skills. Positive support system - Psychosocial Test Tool Used:: HANDS Depression Questionnaire - Assistive Devices Fall Risk Assessed:: Yes Psychosocial - 30-Day Assess - Target Goals Target Goals: Assess presence or absence of depression. Using a valid screening tool, maximizes coping skills. Positive support system - Stages of Change Stages of Change:: Action - Psychosocial Test Tool Used:: HANDS Depression Questionnaire - Intervention PS - Interventions: Yes Attend Stress Management Classes, Yes Uses Stress Management Skills, No Referral to Mental Health, No Referral to [facility] Case Management, No Referral to Physician - Education Attended classes for:: Coping techniques, Signs & symptoms of depression, Stress management, Relaxation techniques - Assistive Devices Fall Risk Assessed:: Yes Patient Health Questionnaire 30-Day Re-eval Assessment 1. Little interest or pleasure in doing things: Not at all 2. Feeling down, depressed, or hopeless: Not at all 3. Trouble falling or staying asleep, or sleeping too much: Not at all 4. Feeling tired or having little energy: More than half the days 5. Poor appetite or overeating: Not at all 6. Feeling bad about yourself -- or that you are a failure or have let yourself or your family down: Not at all 7. Trouble concentrating on things, such as reading the newspaper or watching television: Not at all 8. Moving or speaking so slowly that other people could have noticed. Or the opposite - being so fidgety or restless that you have been moving around a lot more than usual: Not at all 9. Thoughts that you would be better off , or of hurting yourself in some way: Not at all How difficult have these problems made it for you to do your work, take care of things at home, or get along with other people?: Not difficult at all Total Score: 2 Self-Efficacy 30-Day Re-eval Assessment We would like to know how confident you are in doing certain activities. Please select your confidence level for:: Select your confidence level for the following using the scale 1-10 where 1 is not at all confident and 10 is totally confident. Your score is the average of all 6 responses. Fatigue: How confident are you that you can keep the fatigue caused by your disease from interfering with the things you want to do? Select Number: 6 Physical Discomfort or Pain: How confident are you that you can keep the physical discomfort or pain of your disease from interfering with the things you want to do? Select Number: 10 Emotional Distress: How confident are you that you can keep the emotional distress caused by your disease from interfering with the things you want to do? Select Number: 10 Other Symptoms or Health Problems: How confident are you that you can keep other symptoms or health problems from interfering with the things you want to do? Select Number: 10 Different Tasks and Activities: How confident are you that you can do the different tasks and activities needed to manage your health condition so as to reduce your need to see a doctor? Select Number: 8 Medication: How confident are you that you can do things other than just taking medication to reduce how much your illness affects your everyday life? Select Number: 8 Total Score:: 8
[2018-03-11 09:32] VITALS: BP 122/54; BP 170/50
== END 2018-03-15 23:59 ==
LOC: CR 14:15
PROVIDERS: Family Provider Family Medicine; PCP Family Medicine; Visit Provider Internal Medicine Cardiovascular Disease
DX: I25.10 Atherosclerotic heart disease of native coronary artery without angina pectoris (principal); Z95.5 Presence of coronary angioplasty implant and graft
CPT/HCPCS: 93798

== ENCOUNTER 2018-03-09 10:57 | Outpatient (RCR) | payer MEDICARE, OTHER, SELFPAY | END 2018-03-15 23:59 | LOC: NS 10:57 | PROVIDERS: Family Provider Family Medicine; PCP Family Medicine; Visit Provider Internal Medicine Cardiovascular Disease | DX: E66.9 Obesity, unspecified (principal); E78.5 Hyperlipidemia, unspecified; I25.10 Atherosclerotic heart disease of native coronary artery without angina pectoris; I38 Endocarditis, valve unspecified; I12.9 Hypertensive chronic kidney disease with stage 1 through stage 4 chronic kidney disease, or unspecified chronic kidney disease; N18.3 Chronic kidney disease, stage 3 (moderate); Z71.3 Dietary counseling and surveillance ==

== ENCOUNTER 2018-03-09 13:33 | Inpatient (IN) | payer MEDICARE, OTHER, SELFPAY ==
[2018-03-09] VITALS (9 sets, daily range): BP systolic 152–191; BP diastolic 41–73; PULSE 53–60; RESP 14–18; TEMP 36.7–36.8; O2SAT 94–99; BMI 33.2; BMI 31.3
--- NOTE | 2018-03-09 13:44 | RAD_ITS ---
STUDY: X-RAY CHEST REASON FOR EXAM: Female, 82 years old. Chest pain. Recent cardiac stent placement. TECHNIQUE: Single AP portable view of the chest. COMPARISON: Comparison is made with prior examination January 16, 2018. FINDINGS: EKG electrodes are seen. The lungs are clear and expanded. Scattered calcified granulomas. There is no demonstrated pleural abnormality. Normal size heart. Normal mediastinum and to. Normal visualized pulmonary arteries. There is atherosclerotic calcification of the aortic arch with tortuosity. There are diffuse degenerative changes of the visualized thoracic spine. Normal visualized ribs, clavicles, and shoulders. There is no demonstrated abnormality of the visualized soft tissue structures of the upper abdomen. RAD/Chest 1 View (Portable) IMPRESSION: No acute abnormality is seen. Electronically Signed: Cristiano Stout MD at 14:26 EDT Tel [phone], Service support ,
--- NOTE | 2018-03-09 13:44 | EKG12_ITS ---
Test Reason : CP Blood Pressure : / mmHG Vent. Rate : 061 BPM Atrial Rate : 061 BPM P-R Int : 156 ms QRS Dur : 084 ms QT Int : 414 ms P-R-T Axes : 055 013 049 degrees QTc Int : 416 ms Normal sinus rhythm Minimal voltage criteria for LVH, may be normal variant Borderline ECG Confirmed by IVA WYNN, DANA ([id number]), editorial director RIVERA EASTON ([id number]) on 03/11/2018 9:24:56 AM Referred By: Confirmed By:DANA ENRIQUE MD
[2018-03-09] MEDS: Aspirin 81 MG TAB.CHEW 243 MG PO (13:52)
[2018-03-09] MEDS: 0.9% Normal Saline 1,000 ML 15 ML IV (13:52)
[2018-03-09 14:00] LABS: Absolute Lymphocyte Count 1.43 X10^3/ul (0.83-4.51); Absolute Neutrophil Count 5.7 X10^3/uL (2.0-7.7); Basophil# 0.03 X10^3/uL; Basophil% 0.4 % (0-1); Eosinophil# 0.15 X10^3/uL; Eosinophils% 1.9 % (0-5); Hematocrit 36.9 % (37-47); Hemoglobin 12.2 g/dl (12.0-15.0); Lymphocyte # 1.43 X10^3/ul (4.0); Lymphocyte % 17.9 % (19-41); Mean Corp Hgb Conc 33.1 g/gl (32-36); Mean Corpuscular Hgb 30.8 pg (27.0-32.0); Mean Corpuscular Volume 93.2 fL (81-99); Mean Platelet Vol. 9.6 fl (6.2-12.0); Monocyte# 0.73 X10^3/uL; Monocyte% 9.1 % (0-10); Neutrophil # 5.66 X10^3/uL (2.7-7.7); Neutrophil % 70.7 % (47-70); Platelet Count 237 K/mm3 (150-450); RBC Distribution Width CV 13.8 % (11.6-14.6); RBC Distribution Width SD 47.2 fl (35.1-43.9); Red Blood Count 3.96 M/mm3 (4.2-5.4)
[2018-03-09 14:01] LABS: POSITIVE COUNT NO; POSITIVE DIFFERENTIAL NO; POSITIVE MORPHOLOGY NO
[2018-03-09 14:26] LABS: Anion Gap 6 (5-15); BUN 19 mg/dL (7-18); BUN/Creat Ratio 16.8 RATIO (10-20); Calcium,Total 9.3 mg/dL (8.5-10.1); Chloride 102 mmol/L (98-107); Creatinine, Serum 1.13 mg/dL (0.55-1.02); EST Glomerular Filtration Rate 49 mL/min (>60); Est Glom Filt Rate - Afr Amer 60 mL/min (>60); Estimated Creatinine Clearance 28.52 ml/min; Glucose 130 mg/dL (74-106); Potassium 4.4 mmol/L (3.5-5.1); Sodium Level 138 mmol/L (136-145)
--- NOTE | 2018-03-09 15:31 | ED.VISSUMM ---
- ER Visit Summary Date of Service: 03/09/18 Chief Complaint: Chest pain History of Present Illness: The patient is a 82 F with history of coronary disease and prior cardiac stenting. Patient is currently on aspirin and Plavix. Patient reports some jaw tightness yesterday followed by pressure in her jaw and chest started around 1030 this morning. She denies shortness of breath or diaphoresis. She had a stent placed 4-6 weeks ago and states she had similar symptoms at that time. She believes that there was another lesion found on the heart cath that they were going to watch and this obviously concerns her. Physical Examination: Blood pressure arrival is 189/52, temperature 98.2, heart rate 60, respiratory rate 14, pulse ox 99% on room air. Patient sitting upright in bed no acute distress. She complains of mild pain to the jaw and left upper chest. Head neck examination is otherwise unremarkable. Heart is regular rate and rhythm. Lung sounds are clear. Chest wall is nontender. Abdomen is soft nontender. Lower external examination was no significant calf tenderness or edema. Test Results: Portable chest x-ray shows no acute abnormality. EKG is sinus at 61 with no sign of acute ischemia. CBC and chemistry studies reveal BUN of 19 and creatinine 1.13. Glucose is 130. Troponin is less than 0.015. Emergency Department Course and Treatment: Patient had taken 1 baby aspirin this morning to 3 additional baby aspirin were given. On repeat evaluation she reports very minimal pressure in her jaw. The pressure in her chest is resolved. I did review her heart cath from January 19. She had a 90% stenosis in the mid RCA that was stented. She also had a 50% stenosis noted in the mid circumflex. Patient was discussed with her owner, Dr. Madera. He asked that the patient be admitted and ruled out with serial cardiac enzymes tonight. We will plan to keep her n.p.o. after midnight and go back to the Blood Bank Credit Clerk tomorrow to ensure the new stent to the RCA is open and consider intervening on the lesion in the circumflex. This was discussed with the patient and she is in agreement. Treatment Plan: [] Disposition: Admit Impression: Chest pain This note was generated with [employer] dictation software. It may contain incorrect words, spelling, and punctuation that were not noted in review of the chart prior to signing ED Disposition - Plan for ED Patient: Chief Complaint: Chest Pain Referrals: Boyd Casiano MD [Primary Care Provider] -
--- NOTE | 2018-03-09 15:34 | ED.DCSUM_ITS ---
- ER Visit Summary Date of Service: 03/09/18 Chief Complaint: Chest pain History of Present Illness: The patient is a 82 F with history of coronary disease and prior cardiac stenting. Patient is currently on aspirin and Plavix. Patient reports some jaw tightness yesterday followed by pressure in her jaw and chest started around 1030 this morning. She denies shortness of breath or diaphoresis. She had a stent placed 4-6 weeks ago and states she had similar symptoms at that time. She believes that there was another lesion found on the heart cath that they were going to watch and this obviously concerns her. Physical Examination: Blood pressure arrival is 189/52, temperature 98.2, heart rate 60, respiratory rate 14, pulse ox 99% on room air. Patient sitting upright in bed no acute distress. She complains of mild pain to the jaw and left upper chest. Head neck examination is otherwise unremarkable. Heart is regular rate and rhythm. Lung sounds are clear. Chest wall is nontender. Abdomen is soft nontender. Lower external examination was no significant calf tenderness or edema. Test Results: Portable chest x-ray shows no acute abnormality. EKG is sinus at 61 with no sign of acute ischemia. CBC and chemistry studies reveal BUN of 19 and creatinine 1.13. Glucose is 130. Troponin is less than 0.015. Emergency Department Course and Treatment: Patient had taken 1 baby aspirin this morning to 3 additional baby aspirin were given. On repeat evaluation she reports very minimal pressure in her jaw. The pressure in her chest is resolved. I did review her heart cath from January 19. She had a 90% stenosis in the mid RCA that was stented. She also had a 50% stenosis noted in the mid circumflex. Patient was discussed with her student liaison officer, Dr. Madera. He asked that the patient be admitted and ruled out with serial cardiac enzymes tonight. We will plan to keep her n.p.o. after midnight and go back to the Incident Response Consultant tomorrow to ensure the new stent to the RCA is open and consider intervening on the lesion in the circumflex. This was discussed with the patient and she is in agreement. Treatment Plan: [] Disposition: Admit Impression: Chest pain This note was generated with [employer] dictation software. It may contain incorrect words, spelling, and punctuation that were not noted in review of the chart prior to signing ED Disposition - Plan for ED Patient: Chief Complaint: Chest Pain Referrals: Boyd Casiano MD [Primary Care Provider] -
--- NOTE | 2018-03-09 15:40 | PCM.HP.STD ---
Problem List (1) Chest pain Status: Acute Qualifiers: Chest pain type: unspecified Qualified Code(s): R07.9 - Chest pain, unspecified History of Present Illness Date of Admission: 03/09/18 Chief Complaint: Chest pain - 1 day The patient is a 82 year old F with PMHx of CAD s/p stent to LAD, cardiac cath in January 2018, status post stent to RCA, mid left circumflex stenosis of 50%, hypertension, upper lipidemia, hypothyroidism who comes in with a 2-day history of chest pain. Patient was in her usual state of health, has had some shortness of breath with use of Brilinta that went away with switch to Plavix. She has been in cardiac rehab. She had followed up post stent with cardiology team. She was in her usual state of health until yesterday in the afternoon when she had left-sided chest pressure which radiated to her jaw, persisted for 3-4 hours, no associated dizziness or diaphoresis or radiation to the left upper extremity. Chest pain was worse with ambulation, relieved with rest. She went to bed without complaints and woke up this morning and started doing her usual house chores, when she started complaining of left-sided chest discomfort that radiated to her jaw. She denied again dizziness or palpitations but feels slightly nauseous on the way to the hospital. Vitals in the ED showed temperature of 98.2F, heart rate 60, blood pressure 118/52, respiratory rate was 14, SPO2 is 99% on room air WBC of 8.0, Hb 12.2, platelet count of 237, sodium 138, 4.4, chloride 102, bicarbonate 30, BUN 19, creatinine 1.13, is at baseline, initial troponin 0.015. EKG has been unremarkable. Chest x-ray shows no acute abnormality. Past Medical History Past Medical History (Chronic Problems): Chronic Problems (Last Updated 02/03/18 @ 10:37 by Johanna Winter) Atherosclerotic heart disease of [place] coronary artery without angina pectoris (Chronic) Previous LEANDER to proxiimal to mid LAD 3.0 X 32 mm Taxus 02/23/[address] Daquan Meyer, [facility]: LEANDER to mid RCA 2.5 X 24 mm Synergy 01/19/[address] Patel,[facility] Valvular heart disease (Chronic) Hypothyroidism (Chronic) Aortic insufficiency (Chronic) Hyperlipidemia (Chronic) HTN (hypertension), benign (Chronic) S/P coronary artery stent placement (Chronic ~2003) Previous LEANDER to proxiimal to mid LAD 3.0 X 32 mm Taxus 02/23/[address] Daquan Meyer, [facility]: LEANDER to mid RCA 2.5 X 24 mm Synergy 01/19/[address] Patel,[facility] Medical History: Medical History (Last Updated 01/19/18 @ 10:07 by Julia Hagan) Atherosclerotic heart disease of [place] coronary artery without angina pectoris (Chronic) I25.10 Previous LEANDER to proxiimal to mid LAD 3.0 X 32 mm Taxus 02/23/[address] Daquan Meyer, [facility]: LEANDER to mid RCA 2.5 X 24 mm Synergy 01/19/[address] Patel,[facility] Aortic insufficiency (Chronic) I35.1 Hyperlipidemia (Chronic) E78.5 HTN (hypertension), benign (Chronic) I10 Allergies Iodinated Contrast- Oral and IV Dye Allergy (Intermediate, Verified 02/03/18 10:36) Rash ramipril [From Altace] Adverse Reaction (Severe, Verified 02/03/18 10:36) cough Home Medications: Ambulatory Orders Medication Instructions Recorded atorvastatin 10 mg tablet 10 mg PO DAILY 90 Days 06/10/17 levothyroxine 88 mcg tablet 88 mcg PO DAILY 90 Days 06/10/17 nitroglycerin 0.4 mg sublingual 0.4 mg SUBLINGUAL Q5-15M PRN 10 06/10/17 tablet Days #2880 tab potassium chloride ER 10 mEq 10 meq PO QDAY 06/17/17 tablet,extended release Ascorbic Acid [Vitamin C] 500 mg PO DAILY 01/16/18 Calcium Citrate 600 mg PO DAILY 01/16/18 Fish Oil 1 capsule PO DAILY 01/16/18 Folic Acid 400 mcg PO DAILY@0800 01/16/18 Metoprolol Succinate [Toprol Xl] 50 mg PO QDAY 01/16/18 Multivitamin [Daily Multiple 1 each PO DAILY 01/16/18 Vitamin] Triamterene/Hydrochlorothiazid 1 cap PO QDAY 01/16/18 [Dyazide 37.5-25 Capsule] Aspirin E.C. [Ecotrin] 81 mg PO DAILY@0800 tablet 01/20/18 clopidogrel 75 mg tablet 75 mg PO QDAY #90 tab 02/03/18 losartan 25 mg tablet 25 mg PO BID tab 02/03/18 Ubidecarenone [Co Q-10] 100 mg PO DAILY 03/09/18 Surgical History: Surgical History (Last Updated 02/03/18 @ 10:37 by Johanna Winter) S/P coronary artery stent placement (Chronic) Onset Date: ~2003 Z95.5 Previous LEANDER to proxiimal to mid LAD 3.0 X 32 mm Taxus 02/23/[address] Daquan Meyer, [facility]: LEANDER to mid RCA 2.5 X 24 mm Synergy 01/19/[address] Patel,[facility] History of cholecystectomy Z90.49 Surgical History: angioplasty, cholecystectomy, - - Cardiac stents in 2003. 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 Lives: Spouse/ Significant Other Smoking Status: Never smoker Tobacco Use: Non-smoker Alcohol: None Drugs: None - *Family History Maternal Family History: Family History (Last Updated 02/03/18 @ 10:38 by Johanna Winter) Mother Myocardial infarction Father Colon cancer History Items: Heart Disease - [place] Paternal Family History: Family History (Last Updated 02/03/18 @ 10:38 by Johanna Winter) Mother Myocardial infarction Father Colon cancer History Items: Cancer - colon Review of Systems Constitutional: Denies: Anorexia, Chills, Fever, Malaise, Weakness, Weight Change Eyes: Denies: Blurred vision, Cataracts, Conjunctivae Inflammation, Pain, Redness, Vision Change HEENT: Denies: Difficulty Hearing, Difficulty Swallowing, Head Aches, Hearing Changes, Sinus Congestion, Sinus Drainage, Sore Throat Cardiovascular: Reports: Chest Pain, Chest Pressure. Denies: Light Headedness, Orthopnea, Palpitations, Paroxysmal Noc. Dyspnea Respiratory: Reports: Shortness of breath upon exertion. Denies: Cough, Hemoptysis, Shortness of breath at rest, Sputum production Gastrointestinal: Reports: Nausea. Denies: Abdominal Pain, Constipation, Diarrhea, Hematemesis, Hematochezia, Melena, Vomiting Genitourinary: Denies: Dysuria, Frequency, Incontinence Musculoskeletal: Denies: Joint Pain, Joint stiffness, Joint swelling, Joint Tenderness Skin: Denies: Rash, Wounds Neurological: Denies: Numbness, Tingling, Focal weakness Psychiatric: Denies: Anxiety, Depression, Homicidal Ideations, Suicidal Ideations Hematologic/ Lymphatic: Denies: Easy Bruising, Easy Bleeding VTE Information - Inpt Only VTE Present on Admission: No VTE Pharm Prophylaxis ordered?: Yes Patient Problems: Active and Suspected Problems (Last Updated 01/19/18 @ 10:07 by Julia Hagan) Chest pain (Acute) - Physical Exam General: Alert, Oriented x3, Cooperative, No apparent distress HEENT: Atraumatic, PERRLA, EOMI, Normocephalic Neck: Supple, No JVD, Negative Carotid Bruits Lungs: Clear to auscultation, Normal air movement Cardiovascular: Regular rate, Regular Rhythm, Normal S1, Normal S2, No murmurs Abdomen: Bowel Sounds Present, Soft, Non Tender, Non-Distended, No Hepato-splenomegaly Extremities: No edema Skin: No rashes, No breakdown Musculoskeletal: No Tenderness to Palpation of Joints or Extremities Lymphatic: No Cervical, Supraclavicular, or Inguinal Adenopathy Neurological: Cranial nerves II-XII grossly intact, Neuro grossly intact Psych/Mental Status: Normal Affect, Appropriate Vital Signs Temp Pulse Resp BP Pulse Ox 98.2 F 53 L 18 174/53 H 94 03/09/18 13:33 03/09/18 14:38 03/09/18 14:38 03/09/18 14:38 03/09/18 14:38 Oxygen Delivery Method Room Air Weight: 77.111 kg Body Mass Index (BMI) 33.2 Laboratory Tests Past 24 Hrs 03/09/18 03/09/18 13:50 13:50 WBC 8.0 RBC 3.96 L Hgb 12.2 Hct 36.9 L MCV 93.2 MCH 30.8 MCHC 33.1 RDW 13.8 RDW Differential 47.2 H Plt Count 237 MPV 9.6 Immature Gran % (Auto) 0.000 Neut % (Auto) 70.7 H Lymph % (Auto) 17.9 L [place] % (Auto) 9.1 Eos % (Auto) 1.9 Baso % (Auto) 0.4 Absolute Neuts (auto) 5.7 Absolute Lymphs (auto) 1.43 Total Counted Not Reportable Sodium 138 Potassium 4.4 Chloride 102 Carbon Dioxide 30.0 Anion Gap 6 BUN 19 H Creatinine 1.13 H Estim Creat Clear Calc 28.52 Est GFR (MDRD) Af Amer 60 Est GFR (MDRD) Non-Af 49 L BUN/Creatinine Ratio 16.8 Glucose 130 H Calcium 9.3 Troponin I < 0.015 Assessment/Plan All Active Problems (Last Updated 01/19/18 @ 10:07 by Julia Hagan) Chest pain (Acute) Angina pectoris (Acute) 82 year old F with PMHx of CAD s/p stent to LAD(2003), s/p cardiac cath in January 2018, status post stent to RCA, residual mid left circumflex stenosis of 50%, hypertension, Hyperlipidemia, hypothyroidism who comes in with a 2-day history of chest pain. 1. Chest pain, concerning for unstable angina, in a patient with recent stent to RCA, residual left circumflex artery stenosis Plan: Will admit to PCU, monitor on telemetry, trend cardiac enzymes, continue on aspirin, Plavix, skylar, ARB, Cardiology consulted-Dr. Mad[place], Will start on Lovenox 1 mg/g/kg x1, repeat cardiac cath planned for the morning. 2. Hypertension, uncontrolled, likely related to anxiety, will continue on home medications, will add as needed labetalol 3. Hypothyroidism, continue on synthroid 4. Hyperlipidemia, on statin, repeat lipid profile in am 5. DVT PPx- Lovenox therapeutic dose 6. Code status: Patient in consultation with her wants full code. They have a living will but that was done years ago. They are each their own power of deputy prosecuting attorney for health care. I spent time explaining the differences between full code, DNR CCA, DNR CC to them. She initially preferred no intubation but later patient stated that in the event that her heart should stop, she want CPR and intubation done and for the to decide on if she should still be kept on machines for longer or not. Time spent discussing CODE STATUS was 18 minutes. Code Visit Inpatient E&M: 09084 Init Hosp L3 OBSV E&M: 88655 Initial observation care L3
--- NOTE | 2018-03-09 17:32 | PCM.CONS.C ---
Problem List (1) Angina pectoris Status: Acute (2) CAD (coronary artery disease) Status: Acute (3) S/P coronary artery stent placement Status: Chronic Comment: Previous LEANDER to proxiimal to mid LAD 3.0 X 32 mm Taxus 02/23/[address] Daquan Meyer, [facility]: LEANDER to mid RCA 2.5 X 24 mm Synergy 01/19/[address] Patel,[facility] (4) Valvular heart disease Status: Chronic (5) Hyperlipidemia Status: Chronic Qualifiers: Hyperlipidemia type: pure hypercholesterolemia Qualified Code(s): E78.00 - Pure hypercholesterolemia, unspecified; E78.0 - Pure hypercholesterolemia (6) HTN (hypertension), benign Status: Chronic Reason for Consult Date of Consultation: 03/09/18 History of Present Illness: The patient is a 82 year old white female with a past cardiovascular history which is included CAD, PCI, valvular heart disease with MR/TR and aortic valve stenosis, hyperlipidemia, hypertension who was referred for symptoms concerning for recurrent angina pectoris. She notes that recently she has noted at rest episodes of jaw discomfort. She also noted today resting chest discomfort/pressure. She has also had recurrent gastrointestinal discomfort which in the past has raised questions as being cardiovascular related. She denies any progressive shortness of breath or dyspnea, orthopnea, PND, or worsening peripheral pitting edema. There has been no near syncope or syncope. Based upon her ongoing issues she presented to the emergency department for further evaluation. Her troponin I level was negative. Her ECG demonstrated sinus rhythm with consideration for voltage criteria for LVH with no acute ECG changes. She was subsequently placed in the PCU for further evaluation care. She notes overall she feels better at this time. She does note at home her blood pressure has been under good control. However during her emergency department evaluation and admission to the PCU she is noted to be hypertensive. [] Past Medical History Allergies/Adverse Reactions: Allergies Iodinated Contrast- Oral and IV Dye Allergy (Intermediate, Verified 02/03/18 10:36) Rash ramipril [From Altace] Adverse Reaction (Severe, Verified 02/03/18 10:36) cough Home Medications: Ambulatory Orders Medication Instructions Recorded atorvastatin 10 mg tablet 10 mg PO DAILY 90 Days 06/10/17 levothyroxine 88 mcg tablet 88 mcg PO DAILY 90 Days 06/10/17 nitroglycerin 0.4 mg sublingual 0.4 mg SUBLINGUAL Q5-15M PRN 10 06/10/17 tablet Days #2880 tab potassium chloride ER 10 mEq 10 meq PO QDAY 06/17/17 tablet,extended release Ascorbic Acid [Vitamin C] 500 mg PO DAILY 01/16/18 Calcium Citrate 600 mg PO DAILY 01/16/18 Fish Oil 1 capsule PO DAILY 01/16/18 Folic Acid 400 mcg PO DAILY@0800 01/16/18 Metoprolol Succinate [Toprol Xl] 50 mg PO QDAY 01/16/18 Multivitamin [Daily Multiple 1 each PO DAILY 01/16/18 Vitamin] Triamterene/Hydrochlorothiazid 1 cap PO QDAY 01/16/18 [Dyazide 37.5-25 Capsule] Aspirin E.C. [Ecotrin] 81 mg PO DAILY@0800 tablet 01/20/18 clopidogrel 75 mg tablet 75 mg PO QDAY #90 tab 02/03/18 losartan 25 mg tablet 25 mg PO BID tab 02/03/18 Ubidecarenone [Co Q-10] 100 mg PO DAILY 03/09/18 Past Medical History (Chronic Problems): Chronic Problems (Last Updated 02/03/18 @ 10:37 by Johanna Winter) Valvular heart disease (Chronic) Hypothyroidism (Chronic) Aortic insufficiency (Chronic) Hyperlipidemia (Chronic) HTN (hypertension), benign (Chronic) S/P coronary artery stent placement (Chronic ~2003) Previous LEANDER to proxiimal to mid LAD 3.0 X 32 mm Taxus 02/23/[address] Daquan Meyer, [facility]: LEANDER to mid RCA 2.5 X 24 mm Synergy 01/19/[address] Patel,[facility] Surgical History: angioplasty, cholecystectomy, - - Cardiac stents in 2003. 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 - *Family History Maternal Family History: Family History (Last Updated 02/03/18 @ 10:38 by Johanna Winter) Mother Myocardial infarction Father Colon cancer History Items: Heart Disease - [place] Paternal Family History: Family History (Last Updated 02/03/18 @ 10:38 by Johanna Winter) Mother Myocardial infarction Father Colon cancer History Items: Cancer - colon Lives: Spouse/ Significant Other Smoking Status: Never smoker Tobacco Use: Non-smoker Alcohol: None Drugs: None Review of Systems - Review of Systems General: Denies: Fever, Night Sweats, Fatigue Cardiovascular: Reports: Chest Discomfort, Chest Discomfort at Rest. Denies: Shortness of Breath, Orthopnea, PND, Peripheral Edema, Palpitations, Lightheadedness, Dizziness, Near Syncope, Syncope Respiratory: Denies: Cough, Sputum Production, Hemoptysis Gastrointestinal: Reports: Abdominal Discomfort. Denies: Hematemesis, Hematochezia, Melena Genitourinary: Denies: Dysuria, Hematuria Skin: Denies: Rash Subjectve: This is an 82-year-old white female who appears to be resting comfortably at the moment in no acute distress. Objective: Vital Signs Temp Pulse Resp BP Pulse Ox 98.3 F 56 L 16 189/64 H 98 03/09/18 16:27 03/09/18 16:27 03/09/18 16:27 03/09/18 16:27 03/09/18 16:27 Oxygen Delivery Method Room Air Weight: 171 lb 3.2 oz Body Mass Index (BMI) 31.3 General: Awake, Alert, Oriented x 3, Cooperative, No Acute Distress, Ill Appearing HEENT: Atraumatic, Normocephalic, PERRL, EOMI, Sclera Non Icteric Oral: Moist Mucosa Neck: Supple, Good ROM, No JVD Lungs: Clear to auscultation Cardiovascular: Regular Rhythm, Normal S1, Normal S2 Vascular: No Carotid Bruits Abdomen: Bowel Sounds Present, Soft, Non Tender Extremities: No Cyanosis, No Clubbing, No edema Neurological: No Focal Motor or Sensory Deficit Psych/Mental Status: Appropriate, Normal Affect Rhythm: Sinus rhythm EKG: As noted above ECHO: 11/18/2014: Left ventricular systolic function normal; LVEF 65%; mild to moderate MR; mild TR; mild aortic valve stenosis with mild aortic valve insufficiency Stress Test: 01/17/2018: Pharmacologic stress nuclear imaging study: Compatible with findings concerning for an area of stress-induced myocardial ischemia-mid inferior segments-with a gated LVEF of 79% Cardiac Cath: 01/19/2018: Left ventricle normal with an LVEF of 60%; left main normal; LAD stented and patent; LCx with proximal to mid mild calcification with eccentric hazy 75% stenosis and eccentric 50% stenosis respectively; RCA with a proximal previous stent patent and a mid 90% stenosis in a distal diffuse eccentric 25% stenosis: Of note no hemodynamically significant gradient on LV pullback procedure appearing compatible with hemodynamically significant aortic valve stenosis PCI: 01/19/2018: PTCA/LEANDER of the mid RCA with a 2.5 x 24 Promus Synergy stent CXR: Cardiopulmonary disease process Assessment/Plan 1. Angina pectoris Patient presents with findings concerning for unstable angina pectoris. At the present time her cardiac enzymes are negative. Her ECG demonstrates no new acute changes. He was thought based upon her previous diagnosis, recent noninvasive and invasive evaluation and therapeutic intervention with RCA PCI, that she undergo repeat evaluation in the cardiac catheterization laboratory to evaluate for obvious in-stent restenosis or progression of her [place] vessel disease, including her LCx disease, requiring additional catheter based revascularization therapy. The procedure and risks were discussed with her and she was agreeable to this approach. In the interim she will continue medical management. 2. Valvular heart disease She does have a history of underlying valvular heart disease. In the past based upon her noninvasive and invasive studies it is not thought to be hemodynamically significant requiring further diagnostic studies or therapeutic intervention. This can be reassessed as deemed appropriate. 3. Hyperlipidemia She will continue risk factor evaluation and care. 4. Hypertension Her blood pressures appear to be elevated at this time. Her medications will be adjusted in attempt to bring her systolic blood pressure under better control. This note was generated with evocatal dictation software. It may contain incorrect words, spelling, and punctuation that were not noted in checking the note before signing.
--- NOTE | 2018-03-09 17:36 | CON.PCM_ITS ---
Problem List (1) Angina pectoris Status: Acute (2) CAD (coronary artery disease) Status: Acute (3) S/P coronary artery stent placement Status: Chronic Comment: Previous LEANDER to proxiimal to mid LAD 3.0 X 32 mm Taxus 02/23/[address] Daquan Meyer, [facility]: LEANDER to mid RCA 2.5 X 24 mm Synergy 12/[address] Patel,[facility] (4) Valvular heart disease Status: Chronic (5) Hyperlipidemia Status: Chronic Qualifiers: Hyperlipidemia type: pure hypercholesterolemia Qualified Code(s): E78.00 - Pure hypercholesterolemia, unspecified; E78.0 - Pure hypercholesterolemia (6) HTN (hypertension), benign Status: Chronic Reason for Consult Date of Consultation: 03/09/18 History of Present Illness: The patient is a 82 year old white female with a past cardiovascular history which is included CAD, PCI, valvular heart disease with MR/TR and aortic valve stenosis, hyperlipidemia, hypertension who was referred for symptoms concerning for recurrent angina pectoris. She notes that recently she has noted at rest episodes of jaw discomfort. She also noted today resting chest discomfort/ pressure. She has also had recurrent gastrointestinal discomfort which in the past has raised questions as being cardiovascular related. She denies any progressive shortness of breath or dyspnea, orthopnea, PND, or worsening peripheral pitting edema. There has been no near syncope or syncope. Based upon her ongoing issues she presented to the emergency department for further evaluation. Her troponin I level was negative. Her ECG demonstrated sinus rhythm with consideration for voltage criteria for LVH with no acute ECG changes. She was subsequently placed in the PCU for further evaluation care. She notes overall she feels better at this time. She does note at home her blood pressure has been under good control. However during her emergency department evaluation and admission to the PCU she is noted to be hypertensive. [] Past Medical History Allergies/Adverse Reactions: Allergies Iodinated Contrast- Oral and IV Dye Allergy (Intermediate, Verified 02/03/18 10: 36) Rash ramipril [From Altace] Adverse Reaction (Severe, Verified 02/03/18 10:36) cough Home Medications: Ambulatory Orders Medication Instructions Recorded atorvastatin 10 mg tablet 10 mg PO DAILY 90 Days 06/10/17 levothyroxine 88 mcg tablet 88 mcg PO DAILY 90 Days 06/10/17 nitroglycerin 0.4 mg sublingual 0.4 mg SUBLINGUAL Q5-15M PRN 10 06/10/17 tablet Days #2880 tab potassium chloride ER 10 mEq 10 meq PO QDAY 06/17/17 tablet,extended release Ascorbic Acid [Vitamin C] 500 mg PO DAILY 01/16/18 Calcium Citrate 600 mg PO DAILY 01/16/18 Fish Oil 1 capsule PO DAILY 01/16/18 Folic Acid 400 mcg PO DAILY@0800 01/16/18 Metoprolol Succinate [Toprol Xl] 50 mg PO QDAY 01/16/18 Multivitamin [Daily Multiple 1 each PO DAILY 01/16/18 Vitamin] Triamterene/Hydrochlorothiazid 1 cap PO QDAY 01/16/18 [Dyazide 37.5-25 Capsule] Aspirin E.C. [Ecotrin] 81 mg PO DAILY@0800 tablet 01/20/18 clopidogrel 75 mg tablet 75 mg PO QDAY #90 tab 02/03/18 losartan 25 mg tablet 25 mg PO BID tab 02/03/18 Ubidecarenone [Co Q-10] 100 mg PO DAILY 03/09/18 Past Medical History (Chronic Problems): Chronic Problems (Last Updated 02/03/18 @ 10:37 by Johanna Winter) Valvular heart disease (Chronic) Hypothyroidism (Chronic) Aortic insufficiency (Chronic) Hyperlipidemia (Chronic) HTN (hypertension), benign (Chronic) S/P coronary artery stent placement (Chronic ~2003) Previous LEANDER to proxiimal to mid LAD 3.0 X 32 mm Taxus 02/23/[address] Daquan Meyer, [facility]: LEANDER to mid RCA 2.5 X 24 mm Synergy 01/19/[address] Patel,[facility] Surgical History: angioplasty, cholecystectomy, - - Cardiac stents in 2003. Psychiatric History: No pertinent psych hx SENIOR BIOSTATISTICIAN History: No pertinent SENIOR BIOSTATISTICIAN history - *Family History Maternal Family History: Family History (Last Updated 02/03/18 @ 10:38 by Johanna Winter) Mother Myocardial infarction Father Colon cancer History Items: Heart Disease - [place] Paternal Family History: Family History (Last Updated 02/03/18 @ 10:38 by Johanna Winter) Mother Myocardial infarction Father Colon cancer History Items: Cancer - colon Lives: Spouse/ Significant Other Smoking Status: Never smoker Tobacco Use: Non-smoker Alcohol: None Drugs: None Review of Systems - Review of Systems General: Denies: Fever, Night Sweats, Fatigue Cardiovascular: Reports: Chest Discomfort, Chest Discomfort at Rest. Denies: Shortness of Breath, Orthopnea, PND, Peripheral Edema, Palpitations, Lightheadedness, Dizziness, Near Syncope, Syncope Respiratory: Denies: Cough, Sputum Production, Hemoptysis Gastrointestinal: Reports: Abdominal Discomfort. Denies: Hematemesis, Hematochezia, Melena Genitourinary: Denies: Dysuria, Hematuria Skin: Denies: Rash Subjectve: This is an 82-year-old white female who appears to be resting comfortably at the moment in no acute distress. Objective: Vital Signs Temp Pulse Resp BP Pulse Ox 98.3 F 56 L 16 189/64 H 98 03/09/18 16:27 03/09/18 16:27 03/09/18 16:27 03/09/18 16:27 03/09/18 16:27 Oxygen Delivery Method Room Air Weight: 171 lb 3.2 oz Body Mass Index (BMI) 31.3 General: Awake, Alert, Oriented x 3, Cooperative, No Acute Distress, Ill Appearing HEENT: Atraumatic, Normocephalic, PERRL, EOMI, Sclera Non Icteric Oral: Moist Mucosa Neck: Supple, Good ROM, No JVD Lungs: Clear to auscultation Cardiovascular: Regular Rhythm, Normal S1, Normal S2 Vascular: No Carotid Bruits Abdomen: Bowel Sounds Present, Soft, Non Tender Extremities: No Cyanosis, No Clubbing, No edema Neurological: No Focal Motor or Sensory Deficit Psych/Mental Status: Appropriate, Normal Affect Rhythm: Sinus rhythm EKG: As noted above ECHO: 11/18/2014: Left ventricular systolic function normal; LVEF 65%; mild to moderate MR; mild TR; mild aortic valve stenosis with mild aortic valve insufficiency Stress Test: 01/17/2018: Pharmacologic stress nuclear imaging study: Compatible with findings concerning for an area of stress-induced myocardial ischemia-mid inferior segments-with a gated LVEF of 79% Cardiac Cath: 01/19/2018: Left ventricle normal with an LVEF of 60%; left main normal; LAD stented and patent; LCx with proximal to mid mild calcification with eccentric hazy 75% stenosis and eccentric 50% stenosis respectively; RCA with a proximal previous stent patent and a mid 90% stenosis in a distal diffuse eccentric 25% stenosis: Of note no hemodynamically significant gradient on LV pullback procedure appearing compatible with hemodynamically significant aortic valve stenosis PCI: 01/19/2018: PTCA/LEANDER of the mid RCA with a 2.5 x 24 Promus Synergy stent CXR: Cardiopulmonary disease process Assessment/Plan 1. Angina pectoris Patient presents with findings concerning for unstable angina pectoris. At the present time her cardiac enzymes are negative. Her ECG demonstrates no new acute changes. He was thought based upon her previous diagnosis, recent noninvasive and invasive evaluation and therapeutic intervention with RCA PCI, that she undergo repeat evaluation in the cardiac catheterization laboratory to evaluate for obvious in-stent restenosis or progression of her [place] vessel disease, including her LCx disease, requiring additional catheter based revascularization therapy. The procedure and risks were discussed with her and she was agreeable to this approach. In the interim she will continue medical management. 2. Valvular heart disease She does have a history of underlying valvular heart disease. In the past based upon her noninvasive and invasive studies it is not thought to be hemodynamically significant requiring further diagnostic studies or therapeutic intervention. This can be reassessed as deemed appropriate. 3. Hyperlipidemia She will continue risk factor evaluation and care. 4. Hypertension Her blood pressures appear to be elevated at this time. Her medications will be adjusted in attempt to bring her systolic blood pressure under better control. This note was generated with Qio dictation software. It may contain incorrect words, spelling, and punctuation that were not noted in checking the note before signing.
[2018-03-09] MEDS: Enoxaparin 80 MG/0.8 ML Syringe 70 MG SC (18:06)
[2018-03-09] MEDS: DiphenhydrAMINE 25 MG Capsule 50 MG PO (21:01)
[2018-03-09] MEDS: Losartan Potassium 25 MG Tablet 50 MG PO (21:01)
[2018-03-09] MEDS: Famotidine 20 MG Tablet PO (21:02)
[2018-03-09] MEDS: Atorvastatin Calcium 10 MG Tablet PO (21:02)
[2018-03-09] MEDS: predniSONE 20 MG Tablet 60 MG PO (21:03)
[2018-03-10] VITALS (25 sets, daily range): BP systolic 116–169; BP diastolic 29–59; PULSE 55–65; RESP 11–18; TEMP 36.4–37.3; O2SAT 93–98
--- NOTE | 2018-03-10 04:00 | EKG12_ITS ---
Test Reason : AM EKG Blood Pressure : / mmHG Vent. Rate : 057 BPM Atrial Rate : 057 BPM P-R Int : 160 ms QRS Dur : 078 ms QT Int : 458 ms P-R-T Axes : 072 010 027 degrees QTc Int : 445 ms Sinus bradycardia Otherwise normal ECG When compared with ECG of 09-MAR-2018 13:34, MANUAL COMPARISON REQUIRED, DATA IS UNCONFIRMED Confirmed by LEO WYNN, PORTIA ([id number]), assistant editor RIVERA EASTON ([id number]) on 03/13/2018 2:33:03 PM Referred By: ADAM Confirmed By:PORTIA BAILEY MD
[2018-03-10 04:31] LABS: Absolute Lymphocyte Count 0.88 X10^3/ul (0.83-4.51); Absolute Neutrophil Count 6.6 X10^3/uL (2.0-7.7); Basophil# 0.02 X10^3/uL; Basophil% 0.3 % (0-1); Eosinophil# 0.02 X10^3/uL; Eosinophils% 0.3 % (0-5); Hematocrit 36.4 % (37-47); Hemoglobin 12.1 g/dl (12.0-15.0); Lymphocyte # 0.88 X10^3/ul (4.0); Lymphocyte % 11.6 % (19-41); Mean Corp Hgb Conc 33.2 g/gl (32-36); Mean Corpuscular Hgb 30.9 pg (27.0-32.0); Mean Corpuscular Volume 93.1 fL (81-99); Mean Platelet Vol. 9.9 fl (6.2-12.0); Monocyte# 0.08 X10^3/uL; Monocyte% 1.1 % (0-10); Neutrophil # 6.57 X10^3/uL (2.7-7.7); Neutrophil % 86.4 % (47-70); Platelet Count 242 K/mm3 (150-450); RBC Distribution Width CV 13.6 % (11.6-14.6); RBC Distribution Width SD 45.3 fl (35.1-43.9); Red Blood Count 3.91 M/mm3 (4.2-5.4); White Blood Count 7.6 K/mm3 (4.4-11.0)
[2018-03-10 04:38] LABS: POSITIVE COUNT NO; POSITIVE DIFFERENTIAL NO; POSITIVE MORPHOLOGY NO
[2018-03-10 04:45] LABS: Anion Gap 10 (5-15); BUN 23 mg/dL (7-18); BUN/Creat Ratio 18.3 RATIO (10-20); Chloride 104 mmol/L (98-107); Cholesterol 116 mg/dL (200); Creatinine, Serum 1.26 mg/dL (0.55-1.02); EST Glomerular Filtration Rate 43 mL/min (>60); Est Glom Filt Rate - Afr Amer 53 mL/min (>60); Estimated Creatinine Clearance 28.16 ml/min; Glucose 159 mg/dL (74-106); High Density Lipoprotein 36 mg/dL; Potassium 4.8 mmol/L (3.5-5.1); Sodium Level 140 mmol/L (136-145); Triglycerides 171 mg/dL
[2018-03-10 04:46] LABS: Very Low Density Lipoprotein 34 mg/dL (5-40)
[2018-03-10 05:10] LABS: International Normalized Ratio 1.1; Prothrombin Time (Protime)PT. 13.8 SECONDS (11.7-14.9)
[2018-03-10 05:11] LABS: Partial Thromboplast Time 31.2 Seconds (24.1-36.2)
[2018-03-10] MEDS: Clopidogrel Bisulfate 75 MG Tablet PO (06:15)
[2018-03-10] MEDS: predniSONE 20 MG Tablet 60 MG PO (06:15)
[2018-03-10] MEDS: Metoprolol(XL)Succ 50 MG Tablet PO (06:15)
[2018-03-10] MEDS: Famotidine 20 MG Tablet PO (06:16)
[2018-03-10] MEDS: Aspirin E.C. 81 MG Tablet PO (06:16)
[2018-03-10] MEDS: Levothyroxine 88 MCG Tablet PO (06:16)
[2018-03-10] MEDS: DiphenhydrAMINE 25 MG Capsule 50 MG PO (06:16)
[2018-03-10] MEDS: Losartan Potassium 25 MG Tablet 50 MG PO ×2 (06:16→21:29)
[2018-03-10] MEDS: 0.9% NaCl Peripheral Flush Adult/Peds IV ×2 (06:19→14:07)
[2018-03-10] MEDS: 0.9% Normal Saline 1,000 ML 15 ML IV (06:19)
--- NOTE | 2018-03-10 08:52 | CL.D_ITS ---
Patient Name: PRECIOUS LEIGH Study Date: 03/10/2018 Performing: Luis Alberto Madera MD Ht: 61.81 inches 157 cm : 1935 Wt: 171.96 lbs 78 kg Age: 82 Gender: female BSA: 1.79 PROCEDURE(S) PERFORMED [id number]/LV CLINICAL PROFILE AND INDICATIONS Indications: Worsening Angina, Suspected CAD Heart Failure: None Stress/Imaging Stress/Image Study Performed: No Angina Classification Anginal Classification w/in 2 Weeks: CCS IV CAD Presentations: Unstable angina. CONCLUSIONS Elevated Left Ventricular End Diastolic Pressure Normal LV size, wall motion,and systolic function LVEF: by LV gram 70 % [place] Multivessel CAD Aortic Valve - LV pull back procedure: hemodynamic data not consistent with hemodynamically significa nt aortic valve stenosis Mitral Valve Annular Calcification- Moderate RECOMMENDATIONS Risk factor modification Medical therapy Referred for immediate PCI DESCRIPTION OF PROCEDURE The patient arrived to the procedure lab. The risks and benefits of the procedure as well as a full d escription of our services here and current unavailability of surgical backup were fully explained to the patient and/or their significant other prior to the catheterization. The Timeout was completed, verifying the correct patient and procedure. The patient's procedural site was prepped and draped in the usual fashion. Local anesthetic was given subcutaneously to right radial region with Lidocaine 2% . Using a modified Seldinger technique, arterial access was obtained via the right radial artery, a 6 Fr sheath was inserted. Left Coronary Artery selective angiography was performed in multiple views u sing a 5 Fr. JL3.5 catheter. Right Coronary Artery selective angiography was then performed in multip le views using a 5 Fr. 3DRC (Ilan) catheter. Left Ventriculography was performed in BECERRA projectio n using a 5 Fr. Pigtail catheter. LV to AO pullback pressures were then recorded. CORONARY ANGIOGRAPHY DOMINANCE: Right Dominant LEFT HEART ASSESSMENT Left Ventricular Ejection Fraction: by LV Gram 70 % Normal LV wall motion Elevated Left Ventricular End Diastolic Pressure LVEDP: 14 mmHg LEFT MAIN: Angiographically normal LEFT ANTERIOR DECENDING ARTERY: PROX LAD: Previously placed stent is patent CIRCUMFLEX ARTERY: PROX CIRC: Mild calcification, Eccentric: Hazy: 25 % Stenosis MID CIRC: Mild calcification, Eccentric: Hazy: 75 % Stenosis RIGHT CORONARY ARTERY: OSTIAL RCA: Previously placed stent is patent MID RCA: Previously placed stent is patent DISTAL RCA: Diffuse: Eccentric: 25 % Stenosis VALVE FINDINGS: LV pull back procedure: hemodynamic data not consistent with hemodynamically significant aortic valve stenosis Mitral Valve Annular Calcification: Moderate AORTIC ROOT: Angiographically normal COMPLICATIONS PROCEDURE MEDICATIONS Versed 1 mg IV Fentanyl 50 mcg IV Oxygen: 2 L/min via nasal cannula Solu-medrol 125 mg IV 03/10/2018 07:50:50 SUMMARY OF HEMODYNAMIC DATA Time AIR REST ECG 07:49:35 AO 117/41 (67) SA 08:17:23 LV 149/2, 14 08:28:02 LV 141/0, 13 08:28:09 LV 146/-1, 18 08:29:05 LV 149/0, 17 08:29:12 LVp 154/0, 14 08:29:19 AOp 147/48 (86) 08:29:25 Signed By Luis Alberto Madera MD On 03/10/2018 08:51:40 Luis Alberto Madera MD
--- NOTE | 2018-03-10 09:01 | NURSING ---
Report called to Uzma in ICU
--- NOTE | 2018-03-10 09:22 | CL.I_ITS ---
Patient Name: PRECIOUS LEIGH Study Date: 03/10/2018 Performing: Adele Torrez MD Ht: 61.81 inches 157 cm : 1935 Wt: 171.96 lbs 78 kg Age: 82 Gender: female BSA: 1.79 PROCEDURE(S) PERFORMED [id number] W OR WO PTCA, SINGLE CORONARY ARTERY CLINICAL PROFILE AND CO-MORBIDITIES Indications: Worsening Angina, Suspected CAD Heart Failure: None Stress/Imaging Stress/Image Study Performed: No Angina Classification Anginal Classification w/in 2 Weeks: CCS IV CAD Presentations: Unstable angina. CONCLUSIONS Successful PTCA/LEANDER Mid LCX using Elunir 2.5x12 mm RECOMMENDATIONS ASA Indefinitley Plavix for at least 12 months Follow up with Dr. Madera INTERVENTION INFORMATION LESION SITE: Circumflex (Mid) Lesion Complexity: Non-High/Non-C, culprit lesion: Yes Pre Stenosis: 80 % Pre intervention LUIS flow: 3 PROCEDURE: Drug Eluting Stent with pre and post dilatation Post Stenosis: 0 % Post intervention LUIS flow: 3 Lesion Devices: Willie Sci NC EMERGE MR 2.50x08 BALLOON Cardinal Elunir LEANDER RX 2.5x12 COMPLICATIONS No Complications PROCEDURE MEDICATIONS Versed 1 mg IV Fentanyl 50 mcg IV Oxygen: 2 L/min via nasal cannula Heparin given IA 03/10/2018 08:17:15 Heparin 2000 unit(s) IV 03/10/2018 09:00:40 Nitro 200 mcg IC 03/10/2018 09:08:40 Plavix 300 mg PO 03/10/2018 09:20:00 Solu-medrol 125 mg IV 03/10/2018 07:50:50 Verapamil 2.5mg, Ntg 100mcgs, 2000 units of Heparin given IA 03/10/2018 08:17:15 SUMMARY OF HEMODYNAMIC DATA Time AIR REST ECG 07:49:35 AO 117/41 (67) SA 08:17:23 LV 149/2, 14 08:28:02 LV 141/0, 13 08:28:09 LV 146/-1, 18 08:29:05 LV 149/0, 17 08:29:12 LVp 154/0, 14 08:29:19 AOp 147/48 (86) 08:29:25 RM AIR REST 08:51:47 Signed By Adele Torerz MD On 03/10/2018 09:22:24 Adele Torrez MD
--- NOTE | 2018-03-10 09:30 | EKG12_ITS ---
Test Reason : PCI Blood Pressure : / mmHG Vent. Rate : 057 BPM Atrial Rate : 057 BPM P-R Int : 158 ms QRS Dur : 084 ms QT Int : 454 ms P-R-T Axes : 068 -02 016 degrees QTc Int : 441 ms Sinus bradycardia Otherwise normal ECG No previous ECGs available Confirmed by IVA WYNN, DANA ([id number]), film or videotape editor RIVERA EASTON ([id number]) on 03/13/2018 3:00:22 PM Referred By: YVONNE Confirmed By:DANA ENRIQUE MD
--- NOTE | 2018-03-10 09:42 | PCM.PN.CARD ---
Subjectve: The patient is now status post diagnostic cardiac catheterization and subsequent LCx PCI. He appears to be without acute complaint. Objective: Vital Signs Temp Pulse Resp BP Pulse Ox 97.7 F L 61 16 149/53 H 94 03/10/18 05:54 03/10/18 07:23 03/10/18 05:54 03/10/18 05:54 03/10/18 05:54 Oxygen Delivery Method Room Air Weight: 171 lb 3.2 oz Body Mass Index (BMI) 31.3 Intake and Output for Last 24 Hours 03/08/18 03/09/18 03/10/18 23:59 23:59 23:59 Intake Total 600 / 600 Balance 600 / 600 General: Awake, Alert, Oriented x 3, Cooperative, No Acute Distress HEENT: Atraumatic, Normocephalic, PERRL, EOMI, Sclera Non Icteric Oral: Moist Mucosa Neck: Supple, Good ROM, No JVD Lungs: Clear to auscultation Cardiovascular: Regular Rhythm, Normal S1, Normal S2 Murmur Murmur: Grade 3/6, Mid Systolic, LLSB, LVOT Vascular: No Carotid Bruits Abdomen: Bowel Sounds Present, Soft, Non Tender Extremities: No Cyanosis, No Clubbing, No edema Neurological: No Focal Motor or Sensory Deficit Psych/Mental Status: Appropriate, Normal Affect 03/09/18 13:50: WBC 8.0, RBC 3.96 L, Hgb 12.2, Hct 36.9 L, MCV 93.2, MCH 30.8, MCHC 33.1, RDW 13.8, RDW Differential 47.2 H, Plt Count 237, MPV 9.6, Immature Gran % (Auto) 0.000, Neut % (Auto) 70.7 H, Lymph % (Auto) 17.9 L, [place] % (Auto) 9.1, Eos % (Auto) 1.9, Baso % (Auto) 0.4, Absolute Neuts (auto) 5.7, Total Counted Not Reportable 03/09/18 13:50: Sodium 138, Potassium 4.4, Chloride 102, Carbon Dioxide 30.0, Anion Gap 6, BUN 19 H, Creatinine 1.13 H, Est GFR (MDRD) Af Amer 60, Est GFR (MDRD) Non-Af 49 L, BUN/Creatinine Ratio 16.8, Glucose 130 H, Calcium 9.3, Troponin I < 0.015 03/09/18 17:37: Troponin I < 0.015 03/09/18 19:56: Troponin I < 0.015 03/10/18 04:15: Sodium 140, Potassium 4.8, Chloride 104, Carbon Dioxide 26.0, Anion Gap 10, BUN 23 H, Creatinine 1.26 H, Est GFR (MDRD) Af Amer 53 L, Est GFR (MDRD) Non-Af 43 L, BUN/Creatinine Ratio 18.3, Glucose 159 H, Calcium 9.0, Triglycerides 171, Cholesterol 116, LDL Cholesterol 46, VLDL Cholesterol 34, HDL Cholesterol 36 L 03/10/18 04:15: WBC 7.6, RBC 3.91 L, Hgb 12.1, Hct 36.4 L, MCV 93.1, MCH 30.9, MCHC 33.2, RDW 13.6, RDW Differential 45.3 H, Plt Count 242, MPV 9.9, Immature Gran % (Auto) 0.300, Neut % (Auto) 86.4 H, Lymph % (Auto) 11.6 L, [place] % (Auto) 1.1, Eos % (Auto) 0.3, Baso % (Auto) 0.3, Absolute Neuts (auto) 6.6, Total Counted Not Reportable 03/10/18 04:15: PT 13.8, INR 1.1, APTT 31.2 Rhythm: Sinus rhythm EKG: Sinus rhythm; no acute ECG changes Cardiac Cath: Please see official report PCI: Please see official report Medical Necessity - Tobacco Use Smoking Status: Never smoker Tobacco Use: Non-smoker Assessment/Plan 1. Angina pectoris At the present time the patient presents with findings concerning for unstable angina pectoris. At the present time her cardiac enzymes are negative. Her ECG demonstrates no new acute changes. She has now undergone evaluation with diagnostic cardiac catheterization. Her previous LAD and RCA stents are patent. Her LCx system appears to demonstrate angiographically significant appearing stenosis. Thus she has undergone further evaluation and care with LCx PCI. 2. CAD The patient will need to continue risk factor modification and medical management. She will need to continue with outpatient cardiac rehabilitation once she recuperates from her current hospitalization and invasive procedure. 3. Valvular heart disease Based upon her cardiac catheterization she did not appear to have a hemodynamically significant gradient across the aortic valve to suggest hemodynamically significant aortic valve stenosis. He will be followed noninvasively with echocardiographic studies, etc. 4. Hyperlipidemia She will continue risk factor evaluation and care. 5. Hypertension Her blood pressures appear to be elevated at this time. Her medications will be adjusted in attempt to bring her systolic blood pressure under better control. Comment: The above was discussed and reviewed with the patient and her family members present. This note was generated with OpenTableation software. It may contain incorrect words, spelling, and punctuation that were not noted in checking the note before signing.
--- NOTE | 2018-03-10 10:40 | CRPHASE1 ---
Patient Data/Charges Phase II Referral:: [facility] - NOT SEEN SHE'S A CURRENT CR PATIENT Risk Factors/Lifestyle Family History: Family History (Last Updated 02/03/18 @ 10:38 by Johanna Winter) Mother Myocardial infarction Father Colon cancer Laboratory Values: Cardiac Rehab Phase I Labs Triglycerides 171 mg/dL (-199) 03/10/18 04:15 Cholesterol 116 mg/dL (200) 03/10/18 04:15 LDL Cholesterol 46 mg/dL (0-130) 03/10/18 04:15 HDL Cholesterol 36 mg/dL (40-) L 03/10/18 04:15
[2018-03-10] MEDS: Triamterene 37.5MG/Hctz 25MG Capsule 1 CAP PO (11:16)
[2018-03-10] MEDS: Isosorbide Mononitrate 60 MG Tablet PO (11:16)
--- NOTE | 2018-03-10 11:56 | CASEMGMT ---
RN CM Assessment completed. DC Plan: Home -no needs identified. Ria QUACHN RN ACM
[2018-03-10 13:20] LABS: ACT Activated Clotting Time 246 sec (74-137)
[2018-03-10 13:20] LABS: ACT Activated Clotting Time 246 sec (74-137)
--- NOTE | 2018-03-10 13:53 | PN_ITS ---
<Fernando John - Last Filed: 03/10/18 13:49> Patient Problems: Active and Suspected Problems (Last Updated 01/19/18 @ 10:07 by Julia Hagan) Chest pain (Acute) CAD (coronary artery disease) (Acute) Subjective: Pt underwent heart cath with PTCA/LEANDER mid lcx this am after presentation for chest pain/pressure which is now resolved. No nausea, vomiting, SOB, palpitations. Resting comfortably. No bleeding from right wrist. - Physical Exam General: Alert, Oriented x3, Cooperative HEENT: Atraumatic, PERRLA, EOMI, Normocephalic Neck: Supple, No JVD, Negative Carotid Bruits Lungs: Clear to auscultation, Normal air movement Cardiovascular: Regular rate, No murmurs Abdomen: Bowel Sounds Present, Soft, Non Tender Extremities: No edema, Capillary Refill Less than 3 Seconds Skin: No rashes, No breakdown Musculoskeletal: No Tenderness to Palpation of Joints or Extremities Neurological: Cranial nerves II-XII grossly intact Psych/Mental Status: Normal Affect, Appropriate, Alert and oriented to time, place, person, mood and affect Vital Signs Temp Pulse Resp BP Pulse Ox 97.5 F L 57 L 15 153/51 H 95 03/10/18 13:37 03/10/18 13:37 03/10/18 13:37 03/10/18 13:37 03/10/18 13:37 Oxygen Delivery Method Room Air Weight: 171 lb 3.2 oz Body Mass Index (BMI) 31.3 Intake and Output for Last 24 Hours 03/08/18 03/09/18 03/10/18 23:59 23:59 23:59 Intake Total 600 / 600 Balance 600 / 600 Laboratory Tests Past 24 Hrs 03/09/18 03/09/18 03/09/18 13:50 13:50 17:37 WBC 8.0 RBC 3.96 L Hgb 12.2 Hct 36.9 L MCV 93.2 MCH 30.8 MCHC 33.1 RDW 13.8 RDW Differential 47.2 H Plt Count 237 MPV 9.6 Immature Gran % (Auto) 0.000 Neut % (Auto) 70.7 H Lymph % (Auto) 17.9 L [place] % (Auto) 9.1 Eos % (Auto) 1.9 Baso % (Auto) 0.4 Absolute Neuts (auto) 5.7 Absolute Lymphs (auto) 1.43 Total Counted Not Reportable PT INR APTT Activated Clotting Time Sodium 138 Potassium 4.4 Chloride 102 Carbon Dioxide 30.0 Anion Gap 6 BUN 19 H Creatinine 1.13 H Estim Creat Clear Calc 28.52 Est GFR (MDRD) Af Amer 60 Est GFR (MDRD) Non-Af 49 L BUN/Creatinine Ratio 16.8 Glucose 130 H Calcium 9.3 Troponin I < 0.015 < 0.015 Triglycerides Cholesterol LDL Cholesterol VLDL Cholesterol HDL Cholesterol 03/09/18 03/10/18 03/10/18 19:56 04:15 04:15 WBC 7.6 RBC 3.91 L Hgb 12.1 Hct 36.4 L MCV 93.1 MCH 30.9 MCHC 33.2 RDW 13.6 RDW Differential 45.3 H Plt Count 242 MPV 9.9 Immature Gran % (Auto) 0.300 Neut % (Auto) 86.4 H Lymph % (Auto) 11.6 L [place] % (Auto) 1.1 Eos % (Auto) 0.3 Baso % (Auto) 0.3 Absolute Neuts (auto) 6.6 Absolute Lymphs (auto) 0.88 Total Counted Not Reportable PT INR APTT Activated Clotting Time Sodium 140 Potassium 4.8 Chloride 104 Carbon Dioxide 26.0 Anion Gap 10 BUN 23 H Creatinine 1.26 H Estim Creat Clear Calc 28.16 Est GFR (MDRD) Af Amer 53 L Est GFR (MDRD) Non-Af 43 L BUN/Creatinine Ratio 18.3 Glucose 159 H Calcium 9.0 Troponin I < 0.015 Triglycerides 171 Cholesterol 116 LDL Cholesterol 46 VLDL Cholesterol 34 HDL Cholesterol 36 L 03/10/18 03/10/18 03/10/18 04:15 08:56 09:18 WBC RBC Hgb Hct MCV MCH MCHC RDW RDW Differential Plt Count MPV Immature Gran % (Auto) Neut % (Auto) Lymph % (Auto) [place] % (Auto) Eos % (Auto) Baso % (Auto) Absolute Neuts (auto) Absolute Lymphs (auto) Total Counted PT 13.8 INR 1.1 APTT 31.2 Activated Clotting Time 246 H 246 H Sodium Potassium Chloride Carbon Dioxide Anion Gap BUN Creatinine Estim Creat Clear Calc Est GFR (MDRD) Af Amer Est GFR (MDRD) Non-Af BUN/Creatinine Ratio Glucose Calcium Troponin I Triglycerides Cholesterol LDL Cholesterol VLDL Cholesterol HDL Cholesterol Medical Necessity - Tobacco Use Smoking Status: Never smoker Tobacco Use: Non-smoker Assessment/Plan All Active Problems (Last Updated 01/19/18 @ 10:07 by Julia Hagan) Chest pain (Acute) CAD (coronary artery disease) (Acute) Angina pectoris (Acute) 1. Angina/ CAD - s/p 1 stent to mid lcx, per Dr. Madera / Shan - now asymptomatic. has 5 total stents. -on asa/plavix/statin/losartan/toprol/dyazide 2. HTN - elevated. monitor and adjust as needed 3. HLD - statin 4. Hypothyroid - synthroid DVT ppx: SCDs DC planning:maintain on monitor overnight This patient was seen by Fernando John PA-C under the supervision of Doctor Paulino. <Jcarlos Bob - Last Filed: 03/10/18 14:48> Subjective: Patient was admitted with unstable angina and underwent heart cath. Cardiac cath shows mid left circumflex stenosis for which LEANDER was inserted. - Physical Exam General: Alert, Oriented x3, Cooperative HEENT: Atraumatic, PERRLA, EOMI, Normocephalic Neck: Supple, No JVD, Negative Carotid Bruits Lungs: Clear to auscultation, Normal air movement Cardiovascular: Regular rate, Regular Rhythm, Normal S1, Normal S2, No murmurs Abdomen: Bowel Sounds Present, Soft, Non Tender, Non-Distended Extremities: No edema, Capillary Refill Less than 3 Seconds Skin: No rashes, No breakdown Musculoskeletal: No Tenderness to Palpation of Joints or Extremities, Arthritic Changes Neurological: Cranial nerves II-XII grossly intact, Neuro grossly intact Psych/Mental Status: Normal Affect, Appropriate Vital Signs Temp Pulse Resp BP Pulse Ox 97.5 F L 64 12 128/29 H 97 03/10/18 13:37 03/10/18 14:00 03/10/18 14:00 03/10/18 14:00 03/10/18 14:00 Oxygen Delivery Method Room Air Weight: 171 lb 3.2 oz Body Mass Index (BMI) 31.3 Intake and Output for Last 24 Hours 03/08/18 03/09/18 03/10/18 23:59 23:59 23:59 Intake Total 600 / 600 Balance 600 / 600 Laboratory Tests Past 24 Hrs 03/09/18 03/09/18 03/10/18 17:37 19:56 04:15 WBC RBC Hgb Hct MCV MCH MCHC RDW RDW Differential Plt Count MPV Immature Gran % (Auto) Neut % (Auto) Lymph % (Auto) [place] % (Auto) Eos % (Auto) Baso % (Auto) Absolute Neuts (auto) Absolute Lymphs (auto) Total Counted PT INR APTT Activated Clotting Time Sodium 140 Potassium 4.8 Chloride 104 Carbon Dioxide 26.0 Anion Gap 10 BUN 23 H Creatinine 1.26 H Estim Creat Clear Calc 28.16 Est GFR (MDRD) Af Amer 53 L Est GFR (MDRD) Non-Af 43 L BUN/Creatinine Ratio 18.3 Glucose 159 H Calcium 9.0 Troponin I < 0.015 < 0.015 Triglycerides 171 Cholesterol 116 LDL Cholesterol 46 VLDL Cholesterol 34 HDL Cholesterol 36 L 03/10/18 03/10/18 03/10/18 04:15 04:15 08:56 WBC 7.6 RBC 3.91 L Hgb 12.1 Hct 36.4 L MCV 93.1 MCH 30.9 MCHC 33.2 RDW 13.6 RDW Differential 45.3 H Plt Count 242 MPV 9.9 Immature Gran % (Auto) 0.300 Neut % (Auto) 86.4 H Lymph % (Auto) 11.6 L [place] % (Auto) 1.1 Eos % (Auto) 0.3 Baso % (Auto) 0.3 Absolute Neuts (auto) 6.6 Absolute Lymphs (auto) 0.88 Total Counted Not Reportable PT 13.8 INR 1.1 APTT 31.2 Activated Clotting Time 246 H Sodium Potassium Chloride Carbon Dioxide Anion Gap BUN Creatinine Estim Creat Clear Calc Est GFR (MDRD) Af Amer Est GFR (MDRD) Non-Af BUN/Creatinine Ratio Glucose Calcium Troponin I Triglycerides Cholesterol LDL Cholesterol VLDL Cholesterol HDL Cholesterol 03/10/18 09:18 WBC RBC Hgb Hct MCV MCH MCHC RDW RDW Differential Plt Count MPV Immature Gran % (Auto) Neut % (Auto) Lymph % (Auto) [place] % (Auto) Eos % (Auto) Baso % (Auto) Absolute Neuts (auto) Absolute Lymphs (auto) Total Counted PT INR APTT Activated Clotting Time 246 H Sodium Potassium Chloride Carbon Dioxide Anion Gap BUN Creatinine Estim Creat Clear Calc Est GFR (MDRD) Af Amer Est GFR (MDRD) Non-Af BUN/Creatinine Ratio Glucose Calcium Troponin I Triglycerides Cholesterol LDL Cholesterol VLDL Cholesterol HDL Cholesterol Assessment/Plan This patient was seen in conjunction with Fernando CERNA. I have independently interviewed and examined the patient and reviewed pertinent history, examination findings, laboratory and plan of management. I have reviewed the note and agree with the documented findings with the few additional points. In brief, patient is admitted for unstable angina with history of coronary artery disease status post. Patient had cardiac cath today and stent was put in in mid left circumflex. Currently she is admitted in ICU for heart monitoring. I have discussed my assessment with Fernando CERNA and orders have been reviewed. Code Visit Inpatient E&M: 56483 Subs Hosp L3
[2018-03-10] MEDS: Multivitamins,Therapeutic Tablet 1 TABLET PO (14:06)
[2018-03-10] MEDS: Calcium (Elemental) 500 MG Tablet PO (14:06)
[2018-03-10] MEDS: Folic Acid 1 MG Tablet 0.5 MG PO (14:06)
[2018-03-10] MEDS: Ascorbic Acid 500 MG Tablet PO (14:07)
[2018-03-10] MEDS: Omega-3 Acid Ethyl Esters 1 GM Capsule PO (14:07)
[2018-03-10] MEDS: Atorvastatin Calcium 10 MG Tablet PO (21:29)
[2018-03-11] VITALS (15 sets, daily range): BP systolic 108–150; BP diastolic 25–42; PULSE 52–92; RESP 11–19; TEMP 36.6–36.9; O2SAT 92–98
[2018-03-11 04:49] LABS: Hematocrit 33.4 % (37-47); Hemoglobin 11.2 g/dl (12.0-15.0); Mean Corp Hgb Conc 33.5 g/gl (32-36); Mean Corpuscular Hgb 30.9 pg (27.0-32.0); Platelet Count 247 K/mm3 (150-450); RBC Distribution Width CV 13.9 % (11.6-14.6); RBC Distribution Width SD 46.4 fl (35.1-43.9); Red Blood Count 3.63 M/mm3 (4.2-5.4); White Blood Count 15.2 K/mm3 (4.4-11.0)
[2018-03-11 04:59] LABS: Anion Gap 11 (5-15); BUN 31 mg/dL (7-18); Calcium,Total 8.8 mg/dL (8.5-10.1); Chloride 104 mmol/L (98-107); Creatinine, Serum 1.24 mg/dL (0.55-1.02); EST Glomerular Filtration Rate 44 mL/min (>60); Est Glom Filt Rate - Afr Amer 54 mL/min (>60); Estimated Creatinine Clearance 28.62 ml/min; Glucose 145 mg/dL (74-106); Potassium 4.4 mmol/L (3.5-5.1); Sodium Level 140 mmol/L (136-145)
[2018-03-11 05:05] LABS: Scan Indicated on CBC? Y/N NO
[2018-03-11] MEDS: Levothyroxine 88 MCG Tablet PO (05:11)
[2018-03-11] MEDS: Folic Acid 1 MG Tablet 0.5 MG PO (07:51)
[2018-03-11] MEDS: Aspirin E.C. 81 MG Tablet PO (07:52)
[2018-03-11] MEDS: Calcium (Elemental) 500 MG Tablet PO (07:53)
[2018-03-11] MEDS: Losartan Potassium 25 MG Tablet 50 MG PO (07:53)
[2018-03-11] MEDS: Multivitamins,Therapeutic Tablet 1 TABLET PO (07:53)
[2018-03-11] MEDS: Ascorbic Acid 500 MG Tablet PO (07:54)
[2018-03-11] MEDS: Triamterene 37.5MG/Hctz 25MG Capsule 1 CAP PO (07:54)
[2018-03-11] MEDS: Clopidogrel Bisulfate 75 MG Tablet PO (07:55)
[2018-03-11] MEDS: Omega-3 Acid Ethyl Esters 1 GM Capsule PO (07:55)
[2018-03-11] MEDS: Isosorbide Mononitrate 60 MG Tablet PO (08:21)
[2018-03-11] MEDS: Metoprolol(XL)Succ 50 MG Tablet PO (08:21)
--- NOTE | 2018-03-11 09:15 | DCINST_ITS ---
- Discharge Diagnoses Current Active Problems: Current Active and Chronic Problems (Last Updated 01/19/18 @ 10:07 by Julia Hagan) Chest pain (Acute) CAD (coronary artery disease) (Acute) You will use the following diet at home:: Cardiac Your food should be the consistency of: Regular Your liquids should be the consistency of: Regular/Thin Discharge Activity: Return to Normal Activity Allergies/Adverse Reactions: Allergies Iodinated Contrast- Oral and IV Dye Allergy (Intermediate, Verified 02/03/18 10:36) Rash ramipril [From Altace] Adverse Reaction (Severe, Verified 02/03/18 10:36) cough Medications to take at Discharge atorvastatin 10 mg tablet 10 mg PO DAILY 90 Days 06/10/17 levothyroxine 88 mcg tablet 88 mcg PO DAILY 90 Days 06/10/17 nitroglycerin 0.4 mg sublingual tablet 0.4 mg SUBLINGUAL Q5-15M PRN 10 Days #2880 tab 06/10/17 potassium chloride ER 10 mEq tablet,extended release 10 meq PO QDAY 06/17/17 Ascorbic Acid [Vitamin C] 500 mg PO DAILY 01/16/18 Calcium Citrate 600 mg PO DAILY 01/16/18 Fish Oil 1 capsule PO DAILY 01/16/18 Folic Acid 400 mcg PO DAILY@0800 01/16/18 Metoprolol Succinate [Toprol Xl] 50 mg PO QDAY 01/16/18 Multivitamin [Daily Multiple Vitamin] 1 each PO DAILY 01/16/18 Triamterene/Hydrochlorothiazid [Dyazide 37.5-25 Capsule] 1 cap PO QDAY 01/16/18 Aspirin E.C. [Ecotrin] 81 mg PO DAILY@0800 tablet 01/20/18 clopidogrel 75 mg tablet 75 mg PO QDAY #90 tab 02/03/18 Ubidecarenone [Co Q-10] 100 mg PO DAILY 03/09/18 Calcium (Elemental) [Os-Stevie 500] 500 mg PO DAILY@0800 tablet 03/11/18 Isosorbide Mononitrate [Imdur] 60 mg PO DAILY #30 tablet 03/11/18 Losartan Potassium 50 mg PO BID #60 tablet 03/11/18 The following prescriptions were given: Isosorbide Mononitrate [Imdur] 60 mg PO DAILY #30 tablet Losartan Potassium 50 mg PO BID #60 tablet Primary Care Physician: Boyd Casiano MD [Primary Care Provider] - Please follow up with your Primary Care Physician in: 2 weeks Test Results: Test results from this visit will be discussed in further detail at your follow- up appointment, if applicable. Please Follow Up With: Luis Alberto Madera MD When: 1-2 weeks Please Follow Up With: Cardiac Rehab When: As directed Proposed Discharge Date: 03/11/18
--- NOTE | 2018-03-11 09:15 | PCM.DC.SUM ---
<Fernando John - Last Filed: 03/11/18 09:15> Discharge Date and Diagnosis - Problem List Patient Problems: Active and Suspected Problems (Last Updated 01/19/18 @ 10:07 by Julia Hagan) Chest pain (Acute) CAD (coronary artery disease) (Acute) Date of Admission: 03/09/18 Date of Discharge: 03/11/18 - Primary Discharge Diagnosis Active and Suspected Problems (Last Updated 01/19/18 @ 10:07 by Julia Hagan) Chest pain 2/2 CAD - stent placed to mid lcx HTN HLD Hypothyroidism - Secondary Discharge Diagnosis Chronic Problems (Last Updated 03/10/18 @ 17:03 by Joi Ballard) Presence of stent in coronary artery (Chronic) Previous LEANDER to proxiimal to mid LAD 3.0 X 32 mm Taxus 02/23/[address] Daquan Meyer, [facility];LEANDER to mid RCA 2.5 X 24 [facility] [facility] [facility]LEANDER of the mid LCX 03/10/[address] Torrez [facility] Valvular heart disease (Chronic) Hypothyroidism (Chronic) Aortic insufficiency (Chronic) Hyperlipidemia (Chronic) HTN (hypertension), benign (Chronic) S/P coronary artery stent placement (Chronic ~2018) LEANDER to mid RCA 2.5 X 24 mm [facility] [facility]/LEANDER of the mid LCX 03/10/[address] Torrez [facility] Hospital Course and Treatment Imaging Results: Cath report: CONCLUSIONS Successful PTCA/LEANDER Mid LCX using Elunir 2.5x12 mm RECOMMENDATIONS ASA Indefinitley Plavix for at least 12 months Follow up with Dr. Madera RAD/Chest 1 View (Portable) IMPRESSION: No acute abnormality is seen. Consults: Cardiology - Shan/Cassy Operations: None Procedures: Cardiac catheterization Summary of Care Provided: Physical exam on day of discharge: General: Resting comfortably NAD Psych: A/Ox3 normal affect HEENT: PEARRLA AT NC Neck: Supple NT CV: RRR no m/t/r/g/h Resp: CTA Abd: [id number] Soft NT no guarding or rigidity Ext: DP2+= no edema right wrist heart cath site without bleeding, erythema, tenderness, tracking. Skin: W/D normal turgor Lymph/Heme: No active bleeding or adenopathy Neuro: CN2-12 intact Hospital course: The patient is a 82 year old F with CAD with 4 previous stents (one only two months prior), htn, hld, hypothyroidism, and obesity, who presented to the ER with c/o chest pain x2 days described as left sided radiating into her jaw worse with activity better with rest. EKG showed no acute process, troponin and CXR were negative. Cardiology was consulted and felt that the patient should undergo diagnostic cardiac cath. This was performed and found significant stenosis of the mid lcx and was successfully stented. Post stent she had no further chest pain. She was already on asa, plavix, losartan, and toprol. BP remained significantly elevated so losartan was increased and imdur was started. She remained stable and was discharged home. She will follow up with cardiac rehab, Dr. Madera, and her PCP. This patient was seen by Fernando John PA-C under the supervision of Doctor Paulino. [] Discharge Diet: Low fat/ Low Cholesterol, 2000 mg Sodium Diet Discharge Activity: Return to Normal Activity Home Medications: Medications to take at Discharge atorvastatin 10 mg tablet 10 mg PO DAILY 90 Days 06/10/17 levothyroxine 88 mcg tablet 88 mcg PO DAILY 90 Days 06/10/17 nitroglycerin 0.4 mg sublingual tablet 0.4 mg SUBLINGUAL Q5-15M PRN 10 Days #2880 tab 06/10/17 potassium chloride ER 10 mEq tablet,extended release 10 meq PO QDAY 06/17/17 Ascorbic Acid [Vitamin C] 500 mg PO DAILY 01/16/18 Calcium Citrate 600 mg PO DAILY 01/16/18 Fish Oil 1 capsule PO DAILY 01/16/18 Folic Acid 400 mcg PO DAILY@0800 01/16/18 Metoprolol Succinate [Toprol Xl] 50 mg PO QDAY 01/16/18 Multivitamin [Daily Multiple Vitamin] 1 each PO DAILY 01/16/18 Triamterene/Hydrochlorothiazid [Dyazide 37.5-25 Capsule] 1 cap PO QDAY 01/16/18 Aspirin E.C. [Ecotrin] 81 mg PO DAILY@0800 tablet 01/20/18 clopidogrel 75 mg tablet 75 mg PO QDAY #90 tab 02/03/18 Ubidecarenone [Co Q-10] 100 mg PO DAILY 03/09/18 Calcium (Elemental) [Os-Stevie 500] 500 mg PO DAILY@0800 tablet 03/11/18 Isosorbide Mononitrate [Imdur] 60 mg PO DAILY #30 tablet 03/11/18 Losartan Potassium 50 mg PO BID #60 tablet 03/11/18 Following Prescrptions Were Given to Patient: Isosorbide Mononitrate [Imdur] 60 mg PO DAILY #30 tablet Losartan Potassium 50 mg PO BID #60 tablet Primary Care Physician: Boyd Casiano MD [Primary Care Provider] - Please follow up with your Primary Care Physician in: 2 weeks Please Follow Up With: Luis Alberto Madera MD When: 1-2 weeks Please Follow Up With: Cardiac Rehab When: As directed Disposition: Home Minutes spent on discharge:: 35 Patient Condition:: Stable Medical Necessity - Tobacco Use Smoking Status: Never smoker Tobacco Use: Non-smoker Meaningful Use Info Meaningful Use Diagnoses (Choose all that apply): None applicable <Jcarlos Bob - Last Filed: 03/11/18 09:49> Discharge Date and Diagnosis - Primary Discharge Diagnosis Active and Suspected Problems (Last Updated 01/19/18 @ 10:07 by Julia Hagan) Chest pain (Acute) CAD (coronary artery disease) (Acute) - Secondary Discharge Diagnosis Chronic Problems (Last Updated 03/10/18 @ 17:03 by Joi Ballard) Presence of stent in coronary artery (Chronic) Previous LEANDER to proxiimal to mid LAD 3.0 X 32 mm Taxus 02/23/[address] Daquan Meyer, [facility];LEANDER to mid RCA 2.5 X 24 mm [facility] [facility]/LEANDER of the mid LCX 03/10/[address] Torrez [facility] Valvular heart disease (Chronic) Hypothyroidism (Chronic) Aortic insufficiency (Chronic) Hyperlipidemia (Chronic) HTN (hypertension), benign (Chronic) S/P coronary artery stent placement (Chronic ~2018) LEANDER to mid RCA 2.5 X 24 mm [facility] [facility]/LEANDER of the mid LCX 03/10/[address] Torrez [facility] Hospital Course and Treatment Summary of Care Provided: The patient was seen and examined today. Discussed with regarding the optimal control of blood pressure and compliance with medications. Discussed with Dr. Madera General: Alert, Oriented x3, Cooperative HEENT: Atraumatic, PERRLA, EOMI, Normocephalic Neck: Supple, No JVD, Negative Carotid Bruits Lungs: Clear to auscultation, Normal air movement Cardiovascular: Regular rate, Regular Rhythm, Normal S1, Normal S2, No murmurs Abdomen: Bowel Sounds Present, Soft, Non Tender, Non-Distended Extremities: No edema, Capillary Refill Less than 3 Seconds Skin: No rashes, No breakdown. Right radial artery access shows no hematoma or bruise. Musculoskeletal: No Tenderness to Palpation of Joints or Extremities, Arthritic Changes Neurological: Cranial nerves II-XII grossly intact, Neuro grossly intact Psych/Mental Status: Normal Affect, Appropriate This patient was seen in conjunction with Fernando CERNA. I have independently interviewed and examined the patient and reviewed pertinent history, examination findings, laboratory and plan of management. I have reviewed the note and agree with the documented findings with the few additional points. In brief, patient is admitted for unstable angina with history of coronary artery disease status post. Patient had cardiac cath 03/10/2018 and stent was put in in mid left circumflex. She was monitored in the ICU and did not had major untoward event Discharge meds reconciliation done. Discharge follow-up instructions given. Patient will follow up with Dr. Madera. Patient can attend cardiac rehab from next week. Total time spent, exact 35 minutes on discharge meds reconciliation, examination, review of imaging and blood test and discussion with the patient on follow-up instructions. I have discussed my assessment with Fernando CERNA and orders have been reviewed. Code Visit Inpatient E&M: 45497 Disch Hosp
--- NOTE | 2018-03-11 09:21 | DS.PCM_ITS ---
<Fernando John - Last Filed: 03/11/18 09:15> Discharge Date and Diagnosis - Problem List Patient Problems: Active and Suspected Problems (Last Updated 01/19/18 @ 10:07 by Julia Hagan) Chest pain (Acute) CAD (coronary artery disease) (Acute) Date of Admission: 03/09/18 Date of Discharge: 03/11/18 - Primary Discharge Diagnosis Active and Suspected Problems (Last Updated 01/19/18 @ 10:07 by Julia Hagan) Chest pain 2/2 CAD - stent placed to mid lcx HTN HLD Hypothyroidism - Secondary Discharge Diagnosis Chronic Problems (Last Updated 03/10/18 @ 17:03 by Joi Ballard) Presence of stent in coronary artery (Chronic) Previous LEANDER to proxiimal to mid LAD 3.0 X 32 mm Taxus 02/23/[address] Daquan Meyer, [facility];LEANDER to mid RCA 2.5 X 24 mm [facility] [facility]/LEANDER of the mid LCX 03/10/[address] Torrez [facility] Valvular heart disease (Chronic) Hypothyroidism (Chronic) Aortic insufficiency (Chronic) Hyperlipidemia (Chronic) HTN (hypertension), benign (Chronic) S/P coronary artery stent placement (Chronic ~2018) LEANDER to mid RCA 2.5 X 24 mm Synergy [facility] [facility]; PTCA/LEANDER of the mid LCX 03/10/[address] Torrez [facility] Hospital Course and Treatment Imaging Results: Cath report: CONCLUSIONS Successful PTCA/LEANDER Mid LCX using Elunir 2.5x12 mm RECOMMENDATIONS ASA Indefinitley Plavix for at least 12 months Follow up with Dr. Madera RAD/Chest 1 View (Portable) IMPRESSION: No acute abnormality is seen. Consults: Cardiology - Shan/Cassy Operations: None Procedures: Cardiac catheterization Summary of Care Provided: Physical exam on day of discharge: General: Resting comfortably NAD Psych: A/Ox3 normal affect HEENT: PEARRLA AT NC Neck: Supple NT CV: RRR no m/t/r/g/h Resp: CTA Abd: [id number] Soft NT no guarding or rigidity Ext: DP2+= no edema right wrist heart cath site without bleeding, erythema, tenderness, tracking. Skin: W/D normal turgor Lymph/Heme: No active bleeding or adenopathy Neuro: CN2-12 intact Hospital course: The patient is a 82 year old F with CAD with 4 previous stents (one only two months prior), htn, hld, hypothyroidism, and obesity, who presented to the ER with c/o chest pain x2 days described as left sided radiating into her jaw worse with activity better with rest. EKG showed no acute process, troponin and CXR were negative. Cardiology was consulted and felt that the patient should undergo diagnostic cardiac cath. This was performed and found significant stenosis of the mid lcx and was successfully stented. Post stent she had no further chest pain. She was already on asa, plavix, losartan, and toprol. BP remained significantly elevated so losartan was increased and imdur was started. She remained stable and was discharged home. She will follow up with cardiac rehab, Dr. Madera, and her PCP. This patient was seen by Fernando John PA-C under the supervision of Doctor Paulino. [] Discharge Diet: Low fat/ Low Cholesterol, 2000 mg Sodium Diet Discharge Activity: Return to Normal Activity Home Medications: Medications to take at Discharge atorvastatin 10 mg tablet 10 mg PO DAILY 90 Days 06/10/17 levothyroxine 88 mcg tablet 88 mcg PO DAILY 90 Days 06/10/17 nitroglycerin 0.4 mg sublingual tablet 0.4 mg SUBLINGUAL Q5-15M PRN 10 Days #2880 tab 06/10/17 potassium chloride ER 10 mEq tablet,extended release 10 meq PO QDAY 06/17/17 Ascorbic Acid [Vitamin C] 500 mg PO DAILY 01/16/18 Calcium Citrate 600 mg PO DAILY 01/16/18 Fish Oil 1 capsule PO DAILY 01/16/18 Folic Acid 400 mcg PO DAILY@0800 01/16/18 Metoprolol Succinate [Toprol Xl] 50 mg PO QDAY 01/16/18 Multivitamin [Daily Multiple Vitamin] 1 each PO DAILY 01/16/18 Triamterene/Hydrochlorothiazid [Dyazide 37.5-25 Capsule] 1 cap PO QDAY 01/16/18 Aspirin E.C. [Ecotrin] 81 mg PO DAILY@0800 tablet 01/20/18 clopidogrel 75 mg tablet 75 mg PO QDAY #90 tab 02/03/18 Ubidecarenone [Co Q-10] 100 mg PO DAILY 03/09/18 Calcium (Elemental) [Os-Stevie 500] 500 mg PO DAILY@0800 tablet 03/11/18 Isosorbide Mononitrate [Imdur] 60 mg PO DAILY #30 tablet 03/11/18 Losartan Potassium 50 mg PO BID #60 tablet 03/11/18 Following Prescrptions Were Given to Patient: Isosorbide Mononitrate [Imdur] 60 mg PO DAILY #30 tablet Losartan Potassium 50 mg PO BID #60 tablet Primary Care Physician: Boyd Casiano MD [Primary Care Provider] - Please follow up with your Primary Care Physician in: 2 weeks Please Follow Up With: Luis Alberto Madera MD When: 1-2 weeks Please Follow Up With: Cardiac Rehab When: As directed Disposition: Home Minutes spent on discharge:: 35 Patient Condition:: Stable Medical Necessity - Tobacco Use Smoking Status: Never smoker Tobacco Use: Non-smoker Meaningful Use Info Meaningful Use Diagnoses (Choose all that apply): None applicable <Jcarlos Bob - Last Filed: 03/11/18 09:49> Discharge Date and Diagnosis - Primary Discharge Diagnosis Active and Suspected Problems (Last Updated 01/19/18 @ 10:07 by Julia Hagan) Chest pain (Acute) CAD (coronary artery disease) (Acute) - Secondary Discharge Diagnosis Chronic Problems (Last Updated 03/10/18 @ 17:03 by Joi Ballard) Presence of stent in coronary artery (Chronic) Previous LEANDER to proxiimal to mid LAD 3.0 X 32 mm Taxus 02/23/[address] Daquan Meyer, [facility];LEANDER to mid RCA 2.5 X 24 mm Synergy [facility] [facility]; PTCA/LEANDER of the mid LCX 03/10/[address] Torrez [facility] Valvular heart disease (Chronic) Hypothyroidism (Chronic) Aortic insufficiency (Chronic) Hyperlipidemia (Chronic) HTN (hypertension), benign (Chronic) S/P coronary artery stent placement (Chronic ~2018) LEANDER to mid RCA 2.5 X 24 mm Synergy [facility] [facility]; PTCA/LEANDER of the mid LCX 03/10/[address] Torrez [facility] Hospital Course and Treatment Summary of Care Provided: The patient was seen and examined today. Discussed with regarding the optimal control of blood pressure and compliance with medications. Discussed with Dr. Madera General: Alert, Oriented x3, Cooperative HEENT: Atraumatic, PERRLA, EOMI, Normocephalic Neck: Supple, No JVD, Negative Carotid Bruits Lungs: Clear to auscultation, Normal air movement Cardiovascular: Regular rate, Regular Rhythm, Normal S1, Normal S2, No murmurs Abdomen: Bowel Sounds Present, Soft, Non Tender, Non-Distended Extremities: No edema, Capillary Refill Less than 3 Seconds Skin: No rashes, No breakdown. Right radial artery access shows no hematoma or bruise. Musculoskeletal: No Tenderness to Palpation of Joints or Extremities, Arthritic Changes Neurological: Cranial nerves II-XII grossly intact, Neuro grossly intact Psych/Mental Status: Normal Affect, Appropriate This patient was seen in conjunction with Fernando CERNA. I have independently interviewed and examined the patient and reviewed pertinent history, examination findings, laboratory and plan of management. I have reviewed the note and agree with the documented findings with the few additional points. In brief, patient is admitted for unstable angina with history of coronary artery disease status post. Patient had cardiac cath 03/10/2018 and stent was put in in mid left circumflex. She was monitored in the ICU and did not had major untoward event Discharge meds reconciliation done. Discharge follow-up instructions given. Patient will follow up with Dr. Madera. Patient can attend cardiac rehab f rom next week. Total time spent, exact 35 minutes on discharge meds reconciliation, examination, review of imaging and blood test and discussion with the patient on follow-up instructions. I have discussed my assessment with Fernando CERNA and orders have been reviewed. Code Visit Inpatient E&M: [id number] Disch Hosp
--- NOTE | 2018-03-11 09:30 | EKG12_ITS ---
Test Reason : AM EKG Blood Pressure : / mmHG Vent. Rate : 058 BPM Atrial Rate : 058 BPM P-R Int : 156 ms QRS Dur : 084 ms QT Int : 436 ms P-R-T Axes : 065 009 035 degrees QTc Int : 428 ms Sinus bradycardia Otherwise normal ECG When compared with ECG of 10-MAR-2018 05:03, MANUAL COMPARISON REQUIRED, DATA IS UNCONFIRMED Confirmed by LEO WYNN, PORTIA ([id number]), multimedia editor RIVERA EASTON ([id number]) on 03/13/2018 2:28:23 PM Referred By: EDDIE HOUSE Confirmed By:PORTIA BAILEY MD
--- NOTE | 2018-03-11 14:17 | PCM.PN.CARD ---
Subjectve: The patient was evaluated earlier this day. She had no complaints of ongoing chest or jaw discomfort. Her cardiac catheterization site appeared to be without obvious adverse findings. Objective: Vital Signs Temp Pulse Resp BP Pulse Ox 97.9 F 58 L 16 140/33 H 97 03/11/18 10:00 03/11/18 10:00 03/11/18 10:00 03/11/18 10:00 03/11/18 10:00 Oxygen Delivery Method Room Air Weight: 171 lb 3.199 oz Body Mass Index (BMI) 31.3 Intake and Output for Last 24 Hours 03/09/18 03/10/18 03/11/18 23:59 23:59 23:59 Intake Total 600 / 600 360 / 360 Balance 600 / 600 360 / 360 General: Awake, Alert, Oriented x 3, Cooperative, No Acute Distress HEENT: Atraumatic, Normocephalic, EOMI, Sclera Non Icteric Oral: Moist Mucosa Neck: Supple, Good ROM, No JVD Lungs: Clear to auscultation Cardiovascular: Regular Rhythm, Normal S1, Normal S2 Vascular: No Carotid Bruits, Normal Radial Pulses Abdomen: Bowel Sounds Present, Soft, Non Tender Extremities: No Cyanosis, No Clubbing, No edema Neurological: No Focal Motor or Sensory Deficit Psych/Mental Status: Appropriate, Normal Affect 03/11/18 04:35: WBC 15.2 H, RBC 3.63 L, Hgb 11.2 L, Hct 33.4 L, MCV 92.0, MCH 30.9, MCHC 33.5, RDW 13.9, RDW Differential 46.4 H, Plt Count 247, MPV 10.0 03/11/18 04:35: Sodium 140, Potassium 4.4, Chloride 104, Carbon Dioxide 25.0, Anion Gap 11, BUN 31 H, Creatinine 1.24 H, Est GFR (MDRD) Af Amer 54 L, Est GFR (MDRD) Non-Af 44 L, BUN/Creatinine Ratio 25.0 H, Glucose 145 H, Calcium 8.8 Rhythm: Sinus rhythm EKG: Sinus rhythm; no obvious acute ECG changes Medical Necessity - Tobacco Use Smoking Status: Never smoker Tobacco Use: Non-smoker Assessment/Plan 1. Angina pectoris At the present time the patient presents with findings concerning for unstable angina pectoris. She has now undergone evaluation with diagnostic cardiac catheterization. Her previous LAD and RCA stents are patent. Her LCx system appears to demonstrate angiographically significant appearing stenosis. Thus she has undergone further evaluation and care with LCx PCI. At the present time she appears to be doing well. She has no ongoing symptoms. She will continue medical management and outpatient follow-up as well as outpatient cardiac rehabilitation. 2. CAD The patient will need to continue risk factor modification and medical management. She will need to continue with outpatient cardiac rehabilitation once she recuperates from her current hospitalization and invasive procedure. 3. Valvular heart disease Based upon her cardiac catheterization she did not appear to have a hemodynamically significant gradient across the aortic valve to suggest hemodynamically significant aortic valve stenosis. He will be followed noninvasively with echocardiographic studies, etc. 4. Hyperlipidemia She will continue risk factor evaluation and care. 5. Hypertension Her blood pressures appear to be elevated at this time. Her medications will be adjusted in attempt to bring her systolic blood pressure under better control. Comment: The above was discussed and reviewed with the patient, her spouse, and Dr Bob. This note was generated with [employer] dictation software. It may contain incorrect words, spelling, and punctuation that were not noted in checking the note before signing.
== END 2018-03-11 10:25 | disposition home or self-care (01) | DRG 247 ==
LOC: ED 15:54 → PCU 15:57 → ICU 03-10 09:03
PROVIDERS: Internal Medicine; Internal Medicine Cardiovascular Disease; Admitting Provider Internal Medicine; Emergency Provider Emergency Medicine; Family Provider Family Medicine; PCP Family Medicine; Visit Provider Internal Medicine
DX: I25.110 Atherosclerotic heart disease of native coronary artery with unstable angina pectoris (principal); E03.9 Hypothyroidism, unspecified; E78.5 Hyperlipidemia, unspecified; I10 Essential (primary) hypertension; I35.2 Nonrheumatic aortic (valve) stenosis with insufficiency; Z95.5 Presence of coronary angioplasty implant and graft
CPT/HCPCS: 36415; 71045; 80048; 80061; 84484; 85025; 85027; 85347; 85610; 85730; 87077; 87086; 87088; 92928; 93005; 93458; 93798; 99152; 99153; 99285; J7030; Q9967; A4216; C1725; C1769; C1874; C1887; C1894; C9600

== ENCOUNTER → 2018-03-13 10:35 | Outpatient (CLI) | payer MEDICARE, OTHER, SELFPAY ==
[2018-03-13 10:46] LABS: Bacteria 0 SEEN /hpf (None Seen); Mucous, Urine 0 SEEN /hpf (<or=2+); Red Blood Cells-Urine 0 SEEN /hpf (0-5); White Blood Cells 0 SEEN /hpf (0-5)
[2018-03-13 11:03] LABS: Color, Urine Yellow (Yellow); Glucose, Dipstick Normal (Normal); Ketone-Dipstick Negative (Negative); Leukocyte Esterase-Dipstick Negative /ul (Negative); Nitrite-Dipstick Negative (Negative); Occult Blood-Urine Negative /ul (Negative); Protein-Dipstick Negative (Negative); Urine Bilirubin Dipstick Negative (Negative); Urine Clarity Sl. Cloudy (Clear); Urine Urobilinogen Normal (Normal)
[2018-03-13 11:09] LABS: Squamous Epithelial Cells - UA 0-5 SEEN /hpf (5-10)
== END ==
PROVIDERS: Family Provider Family Medicine; PCP Family Medicine; Referring Provider Internal Medicine Cardiovascular Disease; Visit Provider Internal Medicine Cardiovascular Disease
DX: I10 Essential (primary) hypertension (principal); I25.10 Atherosclerotic heart disease of native coronary artery without angina pectoris; E78.5 Hyperlipidemia, unspecified; Z95.5 Presence of coronary angioplasty implant and graft
CPT/HCPCS: 81001; 87086; 87088

== ENCOUNTER → 2018-03-24 13:28 | Outpatient (CLI) | payer MEDICARE, OTHER, SELFPAY ==
--- NOTE | 2018-03-24 13:30 | ECHOD_ITS ---
Reason For Study: MURMUR Procedure This was a 2D Doppler, Color Flow transthoracic echocardiogram. The exam was of adequate technical quality. Exam performed in department. Left Ventricle Normal LV size. Left ventricular systolic function is normal. The estimated ejection fraction is 65 %. There is evidence of diastolic dysfunction. No regional wall motion abnormalities noted. Right Ventricle Normal RV size. Normal systolic function. Atria The left atrium is mildly enlarged. Normal right atrium. No doppler evidence for ASD. Mitral Valve There is mild to moderate mitral annular calcification. Extension of the mitral annular calcification onto the posterior mitral valve leaflet. Mild diffuse mitral valve thickening. Mild focal mitral valve calcification of the anterior leaflet. Mitral valve doming/Hockey Sticking. Mild (1+) eccentric mitral valve insufficiency. Tricuspid Valve Normal tricuspid valve. Mild to moderate (1-2+) tricuspid valve insufficiency. Right ventricular systolic pressure estimated to be 28 mmHg. Aortic Valve Trisinus/trileaflet aortic valve. Mild diffuse aortic valve thickening. Mild focal aortic valve calcification. Aortic valve sclerosis / mild aortic valve stenosis. Mild (1+) aortic valve insufficiency. Pulmonic Valve The pulmonic valve is not well visualized. Great Vessels Normal sized aortic root. MMode/2D Measurements & Calculations LVIDd: 4.5 cm IVSd: 1.2 cm LVOT diam: 2.0 cm LVIDs: 2.9 cm LVPWd: 1.1 cm LVOT area: 3.1 cm2 RVDd: 3.2 cm FS: 35.9 % Ao root diam: 3.0 cm LAV(MOD-bp): 64.8 ml EDV(MOD-sp4): 96.5 ml LA dimension: 4.3 cm LAV(MOD-bp) Indexed: 37.1 ml/m2 ESV(MOD-sp4): 40.3 ml LAV(MOD-sp2): 53.9 ml EF(MOD-sp4): 58.3 % LAV(MOD-sp4): 67.5 ml EDV(MOD-sp2): 89.7 ml SV(MOD-sp4): 56.2 ml SV(MOD-sp2): 52.4 ml EF(MOD-sp2): 58.5 % LA A4 area: 22.3 cm2 RA A4 area: 16.3 cm2 Time Measurements MV dec time: 0.26 sec Doppler Measurements & Calculations MV E max phuc: 103.1 cm/sec Lat Peak E' Phuc: 6.6 cm/sec Med Peak E' Phuc: 4.9 cm/sec MV A max phuc: 110.6 cm/sec E/E' lat: 15.7 E/E' med: 21.0 MV E/A: 0.93 MV V2 max: 118.5 cm/sec Ao V2 max: 214.3 cm/sec AI max phuc: 414.5 cm/sec MV max P.6 mmHg Ao max P.4 mmHg AI max P.1 mmHg MV V2 mean: 62.3 cm/sec Ao V2 mean: 155.8 cm/sec AI dec slope: 247.7 cm/sec2 MV mean P.8 mmHg Ao mean P.5 mmHg AI P1/2t: 490.1 msec MV V2 VTI: 43.1 cm Ao V2 VTI: 52.6 cm MVA(VTI): 2.5 cm2 SHELTON(I,D): 2.0 cm2 SHELTON(V,D): 2.1 cm2 LV V1 max: 145.0 cm/sec SV(LVOT): 106.8 ml PA V2 max: 116.3 cm/sec LV V1 max P.4 mmHg LV V1 mean P.5 mmHg LV V1 mean: 100.3 cm/sec LV V1 VTI: 34.8 cm TR max phuc: 248.5 cm/sec TR max P.8 mmHg Interpretation Summary Left ventricular systolic function is normal. The estimated ejection fraction is 65 %. The left atrium is mildly enlarged. There is mild to moderate mitral annular calcification. Extension of the mitral annular calcification onto the posterior mitral valve leaflet. Mild diffuse mitral valve thickening. Mild focal mitral valve calcification of the anterior leaflet. Mitral valve doming/Hockey Sticking Mild (1+) eccentric mitral valve insufficiency. Mild to moderate (1-2+) tricuspid valve insufficiency. Aortic valve sclerosis / mild aortic valve stenosis. Mild (1+) aortic valve insufficiency. Right ventricular systolic pressure estimated to be 28 mmHg. There is evidence of diastolic dysfunction. Ordering Physician: Luis Alberto Madera Referring Physician: MARGA GAGE Performed By: Rosenda Ramos, CAMERON, RVT
== END ==
PROVIDERS: Family Provider Family Medicine; PCP Internal Medicine; Referring Provider Internal Medicine Cardiovascular Disease; Visit Provider Internal Medicine Cardiovascular Disease
DX: I25.10 Atherosclerotic heart disease of native coronary artery without angina pectoris (principal); I35.0 Nonrheumatic aortic (valve) stenosis
CPT/HCPCS: 93306

== ENCOUNTER 2018-03-26 08:53 | Outpatient (RCR) | payer MEDICARE, OTHER, SELFPAY | END 2018-04-15 23:59 | LOC: NS 08:53 | PROVIDERS: Family Provider Family Medicine; PCP Internal Medicine; Visit Provider Internal Medicine Cardiovascular Disease | DX: I12.9 Hypertensive chronic kidney disease with stage 1 through stage 4 chronic kidney disease, or unspecified chronic kidney disease (principal); N18.3 Chronic kidney disease, stage 3 (moderate); E78.5 Hyperlipidemia, unspecified; I25.10 Atherosclerotic heart disease of native coronary artery without angina pectoris; I38 Endocarditis, valve unspecified | CPT/HCPCS: 97802 ==

== ENCOUNTER 2018-04-15 14:15 | Outpatient (RCR) | payer MEDICARE, OTHER, SELFPAY ==
[2018-03-16 01:29] VITALS: BP 122/54; BP 170/50
[2018-04-10 10:59] VITALS: BP 130/50; BP 164/50
--- NOTE | 2018-04-10 11:01 | CR.ITP_ITS ---
Exercise - 60-Day Assessment - Visit Date of Eval: 04/10/18 Session #:: 24 - Stages of Change Stages of Change:: Action - Exercise Prescription Mode:: Treadmill, Airdyne, NuStep Frequency (x/week): 3 Duration:: 35 METs: 5 Target Heart Rate:: 105-114 - Hypertension Resting Blood Pressure:: 130/50 Peak Exercise Blood Pressure:: 164/50 Medication Changes:: No - Intervention Home Exercise/Activity Goal:: Moderate Exercise 30 min/day x 5 days/wk - Education Goals:: Warm-up, RPE CARINE Scale, S/S, Safe Exercise, Self-Monitoring - Exercise Program Goals Exercise Program Goals: Aerobic Activity >30 min Nutrition - Initial Assessment - Program Goals Nutrition Program Goals: LDL <70. Total Cholesterol <200. HDL >45. Triglycerides <150. HgbA1C <7%. BMI <25 - Diabetes Do you monitor your blood sugar at home?: No Nutrition - 60-Day Assessment - Program Goals Nutrition Program Goals: LDL <70. Total Cholesterol <200. HDL >45. Triglyceri yovana <150. HgbA1C <7%. BMI <25 - Visit Date of Eval: 04/10/18 - Stages of Change Stages of Change:: Action - Lipids Has the patient seen the dietitian?: No - Diabetes Diabetes:: No - Weight Management Weight:: 169 lb - Intervention Referral to dietitian:: No Referral to Diabetic Clinic:: No Will attend diet classes:: Yes - Education Attended class for:: Healthy eating Tobacco - Initial Assessment - Program Goals Tobacco Program Goals: Complete smoking cessation. Attend education classes. Improve Knowledge Test score - Learning Barriers Learning Barriers: Ready to Learn Tobacco - 60-Day Assessment - Program Goals Tobacco Program Goals: Complete smoking cessation. Attend education classes. Improve Knowledge Test score - Stage of Change Stages of Change:: Action - Learning Barriers Learning Barriers: Participates in education - Family Support Do you have family support?: Yes - Tobacco Use Tobacco Use: Non-smoker - Intervention Education Schedule Given:: Yes - Education Attended class for:: Coronary artery disease, Risk factors, Sexuality, Medical compliance, Cardiac A&P, Angina signs & symptoms Psychosocial - Initial Assess - Target Goals Target Goals: Assess presence or absence of depression. Using a valid screening tool, maximizes coping skills. Positive support system - Psychosocial Test Tool Used:: HANDS Depression Questionnaire - Assistive Devices Fall Risk Assessed:: Yes Psychosocial - 60-Day Assess - Target Goals Target Goals: Assess presence or absence of depression. Using a valid screening tool, maximizes coping skills. Positive support system - Stages of Change Stages of Change:: Action - Psychosocial Test Tool Used:: HANDS Depression Questionnaire - Intervention PS - Interventions: Yes Attend Stress Management Classes, Yes Uses Stress Management Skills, No Referral to Mental Health, No Referral to [facility] Case Management, No Referral to Physician - Education Attended classes for:: Coping techniques, Signs & symptoms of depression, Stress management, Relaxation techniques - Patient/Program Goal Preventative Medication(s):: Aspirin, Clopidogrel, Beta skylar, Statin/lipid - Assistive Devices Assistive Devices:: None Patient Health Questionnaire 60-Day Re-eval Assessment 1. Little interest or pleasure in doing things: Not at all 2. Feeling down, depressed, or hopeless: Not at all 3. Trouble falling or staying asleep, or sleeping too much: Not at all 4. Feeling tired or having little energy: Not at all 5. Poor appetite or overeating: Not at all 6. Feeling bad about yourself -- or that you are a failure or have let yourself or your family down: Not at all 7. Trouble concentrating on things, such as reading the newspaper or watching television: Not at all 8. Moving or speaking so slowly that other people could have noticed. Or the opposite - being so fidgety or restless that you have been moving around a lot more than usual: Not at all 9. Thoughts that you would be better off , or of hurting yourself in some way: Not at all Total Score: 0 Self-Efficacy 60-Day Re-eval Assessment We would like to know how confident you are in doing certain activities. Please select your confidence level for:: Select your confidence level for the following using the scale 1-10 where 1 is not at all confident and 10 is totally confident. Your score is the average of all 6 responses. Fatigue: How confident are you that you can keep the fatigue caused by your disease from interfering with the things you want to do? Select Number: 9 Physical Discomfort or Pain: How confident are you that you can keep the physical discomfort or pain of your disease from interfering with the things you want to do? Select Number: 10 Emotional Distress: How confident are you that you can keep the emotional distress caused by your disease from interfering with the things you want to do? Select Number: 10 Other Symptoms or Health Problems: How confident are you that you can keep other symptoms or health problems from interfering with the things you want to do? Select Number: 10 Different Tasks and Activities: How confident are you that you can do the different tasks and activities needed to manage your health condition so as to reduce your need to see a doctor? Select Number: 10 Medication: How confident are you that you can do things other than just taking medication to reduce how much your illness affects your everyday life? Select Number: 10 Total Score:: 9
== END 2018-04-15 23:59 ==
LOC: CR 14:15
PROVIDERS: Family Provider Family Medicine; PCP Family Medicine; Referring Provider Internal Medicine Cardiovascular Disease; Visit Provider Internal Medicine Cardiovascular Disease
DX: I25.10 Atherosclerotic heart disease of native coronary artery without angina pectoris (principal); Z95.5 Presence of coronary angioplasty implant and graft
CPT/HCPCS: 93798

== ENCOUNTER → 2018-04-18 08:29 | Outpatient (CLI) | payer MEDICARE, OTHER, SELFPAY ==
[2018-04-18 10:08] LABS: Anion Gap 7 (5-15); BUN 21 mg/dL (7-18); BUN/Creat Ratio 19.8 RATIO (10-20); Calcium,Total 9.1 mg/dL (8.5-10.1); Chloride 101 mmol/L (98-107); Creatinine, Serum 1.06 mg/dL (0.55-1.02); EST Glomerular Filtration Rate 53 mL/min (>60); Est Glom Filt Rate - Afr Amer 64 mL/min (>60); Glucose 98 mg/dL (74-106); Potassium 4.1 mmol/L (3.5-5.1); Sodium Level 137 mmol/L (136-145)
== END ==
PROVIDERS: Family Provider Family Medicine; PCP Family Medicine; Referring Provider Internal Medicine Cardiovascular Disease; Visit Provider Internal Medicine Cardiovascular Disease
DX: I25.10 Atherosclerotic heart disease of native coronary artery without angina pectoris (principal); I34.0 Nonrheumatic mitral (valve) insufficiency; I35.0 Nonrheumatic aortic (valve) stenosis; I35.1 Nonrheumatic aortic (valve) insufficiency
CPT/HCPCS: 36415; 80048

== ENCOUNTER 2018-04-20 16:58 | Outpatient (RCR) | payer MEDICARE, OTHER, SELFPAY | END 2018-04-20 23:59 | disposition home or self-care (01) | LOC: NS 16:58 | PROVIDERS: Family Provider Family Medicine; PCP Family Medicine; Visit Provider Internal Medicine Cardiovascular Disease | DX: I12.9 Hypertensive chronic kidney disease with stage 1 through stage 4 chronic kidney disease, or unspecified chronic kidney disease (principal); N18.3 Chronic kidney disease, stage 3 (moderate); E78.5 Hyperlipidemia, unspecified; I25.10 Atherosclerotic heart disease of native coronary artery without angina pectoris; I38 Endocarditis, valve unspecified; Z95.5 Presence of coronary angioplasty implant and graft; Z71.3 Dietary counseling and surveillance | CPT/HCPCS: 93798; 97803 ==

== ENCOUNTER 2018-05-06 14:15 | Outpatient (RCR) | payer MEDICARE, OTHER, SELFPAY ==
[2018-04-16 01:25] VITALS: BP 130/50; BP 164/50
--- NOTE | 2018-05-06 14:13 | CR.ITP_ITS ---
Exercise - Final/Discharge - Visit Date of Eval: 05/06/18 Session #:: 36 - Stages of Change Stages of Change:: Action - Exercise Prescription Mode:: Treadmill, Airdyne, NuStep Frequency (x/week): 3 Duration:: 35 METs: 5.5 Target Heart Rate:: 105-114 - Hypertension Do any of the following apply?: Yes Resting Blood Pressure:: 128/50 Peak Exercise Blood Pressure:: 150/66 - Intervention Home Exercise/Activity Goal:: Moderate Exercise 30 min/day x 5 days/wk - Education Goal Progress: Goal Met - Exercise Program Goals Exercise Program Goals: Aerobic Activity >30 min Nutrition - Initial Assessment - Program Goals Nutrition Program Goals: LDL <70. Total Cholesterol <200. HDL >45. Triglycerides <150. HgbA1C <7%. BMI <25 - Diabetes Do you monitor your blood sugar at home?: No Nutrition - Final Assessment - Program Goals Nutrition Program Goals: LDL <70. Total Cholesterol <200. HDL >45. Triglycerides <150. HgbA1C <7%. BMI <25 - Visit Date of Eval: 05/06/18 - Stages of Change Stages of Change:: Action - Diabetes Diabetes:: No - Weight Management Height: 4 ft 11.8 in Weight:: 167 lb Body Fat %:: 34 - Intervention Referral to dietitian:: No Referral to Diabetic Clinic:: No Will attend diet classes:: Yes - Education Education Goal Reached?: Yes Tobacco - Initial Assessment - Program Goals Tobacco Program Goals: Complete smoking cessation. Attend education classes. Improve Knowledge Test score - Learning Barriers Learning Barriers: Ready to Learn Tobacco - Final Assessment - Program Goals Tobacco Program Goals: Complete smoking cessation. Attend education classes. Improve Knowledge Test score - Stage of Change Stages of Change:: Action - Family Support Do you have family support?: Yes - Tobacco Use Tobacco Use: Non-smoker Do you use smokeless tobacco?: No - Intervention Smoking Cessation Referral:: No Education Schedule Given:: Yes - Education Education Goal Reached?: Yes Psychosocial - Initial Assess - Target Goals Target Goals: Assess presence or absence of depression. Using a valid screening tool, maximizes coping skills. Positive support system - Psychosocial Test Tool Used:: HANDS Depression Questionnaire - Assistive Devices Fall Risk Assessed:: Yes Psychosocial - Final Assessmen - Target Goals Target Goals: Assess presence or absence of depression. Using a valid screening tool, maximizes coping skills. Positive support system - Stages of Change Stages of Change:: Action - Psychosocial Test Tool Used:: HANDS Depression Questionnaire - Intervention PS - Interventions: Yes Attend Stress Management Classes, Yes Uses Stress Management Skills, No Referral to Mental Health, No Referral to [facility] Case Management, No Referral to Physician - Education Education Goal Reached?: Yes - Patient/Program Goal Preventative Medication(s):: Aspirin, Clopidogrel, Beta skylar, Statin/lipid - Assistive Devices Assistive Devices:: None Fall Risk Assessed:: Yes Patient Health Questionnaire Discharge Assessment 1. Little interest or pleasure in doing things: Not at all 2. Feeling down, depressed, or hopeless: Not at all 3. Trouble falling or staying asleep, or sleeping too much: Several days 4. Feeling tired or having little energy: Not at all 5. Poor appetite or overeating: Not at all 6. Feeling bad about yourself -- or that you are a failure or have let yourself or your family down: Not at all 7. Trouble concentrating on things, such as reading the newspaper or watching television: Not at all 8. Moving or speaking so slowly that other people could have noticed. Or the opposite - being so fidgety or restless that you have been moving around a lot more than usual: Not at all 9. Thoughts that you would be better off , or of hurting yourself in some way: Not at all How difficult have these problems made it for you to do your work, take care of things at home, or get along with other people?: Not difficult at all Total Score: 1 SARAH-Q SV Test - Statements CAD is a disease of the arteries in the heart: False Examples of risk factors for heart disease: True Angina is chest pain or discomfort: True The benefits of resistance training include: True Eating more meat and dairy products: False Anti-platelet medications such as aspirin are important: True The only effective way to manage stress: False An exercise warm-up slowly increases heart rate: True Prepared, processed foods usually have high sodium: False Depression is common after a heart attack: True The statin medications lower cholesterol: True To control blood pressure, lower the amount of sodium: True If someone gets chest discomfort during walking: False Transfats are partially hydrogenated vegetable oils: True Sleep apnea that is not treated increases the risk: False To control cholesterol, one should become a vegetarian: False Someone knows if he/she is exercising at the right level: True Diabetes cannot be prevented with exercise & health eating: False Stress is a large risk for heart attack: True A diet that can help lower blood pressure is rich in: True - Total Score Total Correct Responses: 19 Self-Efficacy Discharge Assessment We would like to know how confident you are in doing certain activities. Please select your confidence level for:: Select your confidence level for the following using the scale 1-10 where 1 is not at all confident and 10 is totally confident. Your score is the average of all 6 responses. Fatigue: How confident are you that you can keep the fatigue caused by your disease from interfering with the things you want to do? Select Number: 10 Physical Discomfort or Pain: How confident are you that you can keep the physical discomfort or pain of your disease from interfering with the things you want to do? Select Number: 10 Emotional Distress: How confident are you that you can keep the emotional distress caused by your disease from interfering with the things you want to do? Select Number: 10 Other Symptoms or Health Problems: How confident are you that you can keep other symptoms or health problems from interfering with the things you want to do? Select Number: 10 Different Tasks and Activities: How confident are you that you can do the different tasks and activities needed to manage your health condition so as to reduce your need to see a doctor? Select Number: 10 Medication: How confident are you that you can do things other than just taking medication to reduce how much your illness affects your everyday life? Select Number: 10 Total Score:: 10 Nutrition Survey - Nutrition Survey Instructions Scoring Instructions: Scoring is as follows: Yes = 1 points. No = 0 point. Patient score that is >/=12 is considered to be at potential nutritional risk and could benefit from a referral to a registered dietitian. - Nutrition Survey Discharge Have you lost >10 lbs over the past 2 months without trying?: No Are you following a special diet at home for diabetes, low fat, or low salt?: Yes Are you interested in meeting with a dietitian for help understanding your diet?: No Do you eat less than 3 meals a day?: No Do you eat fatty meats (cadet, sausage, ribs, etc), fried foods, desserts, large amounts of salad dressings, margarine, butter, or cheese most days?: Yes - decreased amount Do you have food allergies? [Enter types in comment field]: No Do you eat in restaurants more than 3 times a week?: No Do you season food with salt, seasoning salt, or garlic salt?: No Do you used canned, boxed, frozen meals, or soups, seasoning packets?: Yes Total Score:: 3
[2018-05-06 14:16] VITALS: BP 128/50; BP 150/66
== END 2018-05-15 23:59 ==
LOC: CR 14:15
PROVIDERS: Family Provider Family Medicine; PCP Internal Medicine; Referring Provider Internal Medicine Cardiovascular Disease; Visit Provider Internal Medicine Cardiovascular Disease
DX: I25.10 Atherosclerotic heart disease of native coronary artery without angina pectoris (principal); Z95.5 Presence of coronary angioplasty implant and graft
CPT/HCPCS: 93798

== ENCOUNTER → 2018-07-06 10:20 | Outpatient (CLI) | payer MEDICARE, OTHER, SELFPAY ==
[2018-07-06 12:29] LABS: Anion Gap 8 (5-15); BUN 26 mg/dL (7-18); BUN/Creat Ratio 21.8 RATIO (10-20); Calcium,Total 9.1 mg/dL (8.5-10.1); Chloride 102 mmol/L (98-107); Creatinine, Serum 1.19 mg/dL (0.55-1.02); EST Glomerular Filtration Rate 46 mL/min (>60); Est Glom Filt Rate - Afr Amer 56 mL/min (>60); Glucose 91 mg/dL (74-106); Potassium 4.2 mmol/L (3.5-5.1); Sodium Level 139 mmol/L (136-145); T4 Free Direct 1.08 ng/dL (0.76-1.46); Thyroid Stim Hormone (TSH) 0.95 uIU/mL (0.358-3.74)
--- OUTSIDE RECORDS SUMMARY | 2018-09-07 20:46 | XMS RPT_ITS ---
:1935 Author Organization [place] Support Name Relationship Address Phone PATRICK LEIGH Unavailable [address] + [place] [address] JORDY SINGH Unavailable Unavailable + [place] [address] R Unavailable Unavailable Unavailable PATRICK LEIGH Unavailable [address] + [place] [address] DALTON SINGHIE Unavailable Unavailable + [place] [address] R Unavailable Unavailable Unavailable PATRICK LEIGH Unavailable [address] + [place] [address] SAMANTHADALTON LEYIE Unavailable Unavailable + [place] [address] R Unavailable Unavailable Unavailable PATRICK LEIGH Unavailable [address] + [place] [address] DALTON SINGHIE Unavailable Unavailable + [place] [address] R Unavailable Unavailable Unavailable PATRICK LEIGH Unavailable [address] + [place] [address] JORDY SINGH Unavailable Unavailable + [place] [address] R Unavailable Unavailable Unavailable PATRICK LEIGH Unavailable [address] + [place] [address] DALTON SINGHIE Unavailable Unavailable + [place] [address] R Unavailable Unavailable Unavailable PATRICK LEIGH Unavailable [address] + [place] [address] DALTON SINGHIE Unavailable Unavailable + [place] [address] R Unavailable Unavailable Unavailable PATRICK LEIGH Unavailable [address] + [place] [address] SAMANTHA JORDY Unavailable Unavailable + [place] [address] R Unavailable Unavailable Unavailable ETTCAS GREENER Unavailable [address] + [place] [address] SAMANTHA JORDY Unavailable Unavailable + [place] [address] R Unavailable Unavailable Unavailable CAS LEIGHER Unavailable [address] + [place] [address] SAMANTHA, JORDY Unavailable 1 + [place] [address] R Unavailable Unavailable Unavailable PATRICK LEIGH Unavailable [address] + [place] [address] SAMANTHA, JORDY Unavailable Unavailable + [place] [address] R Unavailable Unavailable Unavailable PATRICK LEIGH Unavailable [address] + [place] [address] SAMANTHA, JORDY Unavailable Unavailable + [place] [address] R Unavailable Unavailable Unavailable PATRICK LEIGH Unavailable [address] + [place] [address] SAMANTHA, JORDY Unavailable Unavailable + [place] [address] R Unavailable Unavailable Unavailable PATRICK LEIGH Unavailable [address] + [place] [address] SAMANTHA, JORDY Unavailable 1 + [place] [address] R Unavailable Unavailable Unavailable ETTCAS GREENER Unavailable [address] + [place] [address] SAMANTHA, JORDY Unavailable 1 + [place] [address] R Unavailable Unavailable Unavailable PATRICK LEIGH Unavailable [address] + [place] [address] SAMANTHA, JORDY Unavailable Unavailable + [place] [address] R Unavailable Unavailable Unavailable PATRICK LEIGH Unavailable [address] + [place] [address] SAMANTHA, JORDY Unavailable Unavailable + [place] [address] R Unavailable Unavailable Unavailable PATRICK LEIGH Unavailable [address] + [place] [address] SAMANTHA, JORDY Unavailable Unavailable + [place] [address] R Unavailable Unavailable Unavailable PATRICK LEIGH Unavailable [address] + [place] [address] SAMANTHA, JORDY Unavailable Unavailable + [place] [address] R Unavailable Unavailable Unavailable PATRICK LEIGH Unavailable [address] + [place] [address] SAMANTHA, JORDY Unavailable Unavailable + [place] [address] R Unavailable Unavailable Unavailable PATRICK LEIGH Unavailable [address] + [place] [address] SAMANTHA, JORDY Unavailable Unavailable + [place] [address] R Unavailable Unavailable Unavailable PATRICK LEIGH Unavailable [address] + [place] [address] SAMANTHA, JORDY Unavailable Unavailable + [place] [address] R Unavailable Unavailable Unavailable PATRICK LEIGH Unavailable [address] + [place] [address] SAMANTHA, JORDY Unavailable 1 + [place] [address] R Unavailable Unavailable Unavailable PATRICK LEIGH Unavailable [address] + [place] [address] SAMANTHA, JORDY Unavailable 1 + [place] [address] R Unavailable Unavailable Unavailable PATRICK LEIGH Unavailable [address] + [place] [address] SAMANTHA, JORDY Unavailable Unavailable + [place] [address] R Unavailable Unavailable Unavailable HOSTETTPATRICK GREEN Unavailable [address] + [place] [address] SAMANTHAJORDY ALBRECHT Unavailable Unavailable + R Unavailable Unavailable Unavailable ETTPATRICK GREEN Unavailable [address] + [place] [address] JORDY SINGH Unavailable Unavailable + R Unavailable Unavailable Unavailable ETTCAS GREENER Unavailable [address] + [place] [address] JORDY SINGH Unavailable Unavailable + R Unavailable Unavailable Unavailable ETTCAS GREENER Unavailable [address] + [place] [address] SAMANTHAJORDY ALBRECHT Unavailable NA + [place], [place] R Unavailable Unavailable Unavailable ETTCAS GREENER Unavailable [address] + [place] [address] SAMANTHADALTONIE Unavailable NA + [place], [place] R Unavailable Unavailable Unavailable ETTPATRICK GREEN Unavailable [address] + [place] [address] SAMANTHADALTONIE Unavailable Unavailable + R Unavailable Unavailable Unavailable PATRICK LEIGH Unavailable [address] + [place] [address] SAMANTHADALTONIE Unavailable Unavailable + R Unavailable Unavailable Unavailable PATRICK LEIGH Unavailable [address] + [place] [address] SAMANTHADALTON ALBRECHTIE Unavailable Unavailable + R Unavailable Unavailable Unavailable ETTCAS GREENER Unavailable [address] + [place] [address] SAMANTHADALTONIE Unavailable Unavailable + R Unavailable Unavailable Unavailable ETTCAS GREENER Unavailable [address] + [place] [address] JORDY SINGH Unavailable NA + [place], [place] R Unavailable Unavailable Unavailable PATRICK LEIGH Unavailable [address] + [place] [address] JORDY SINGH Unavailable Unavailable + [place] [address] R Unavailable Unavailable Unavailable PATRICK LEIGH Unavailable [address] + [place] [address] JORDY SINGH Unavailable NA + [place], [place] R Unavailable Unavailable Unavailable Care Team Providers Name Role Phone Boyd Casiano Attending Unavailable Stephenie, Boyd Primary Care Unavailable Remy Turner Attending Unavailable Remy Turner Primary Care Unavailable Luis Alberto Bailey Attending Unavailable Luis Alberto Bailey Referring Unavailable Stephenie, Boyd Primary Care Unavailable Luis Alberto Bailey Attending Unavailable Luis Alberto Bailey Referring Unavailable Stephenie, Boyd Primary Care Unavailable Luis Alberto Bailey Attending Unavailable Luis Alberto Bailey Referring Unavailable Stephenie, Boyd Primary Care Unavailable Luis Alberto Bailey Attending Unavailable Alondra Kelley Referring Unavailable Joi [place] Attending Unavailable MoodisLuis Alberto monet Attending Unavailable Luis Alberto Bailey Referring Unavailable Stephenie, Boyd Primary Care Unavailable Paintsil, [place] Admitting Unavailable Luis Alberto Bailey Attending Unavailable Stephenie, Boyd Primary Care Unavailable Keya, [place] Consulting Unavailable Paulino, Jcarlos Consulting Unavailable Paint[place], [place] Ad[facility] [place], [place] Consulting Unavailable Paulino Jcarlos Attending Unavailable Paulino, Jcarlos Consulting Unavailable Paintsil, [place] Admitting Unavailable Stephenie, Boyd Primary Care Unavailable Keya, Ang Consulting Unavailable Paulino, Jcarlos Attending Unavailable Paulino, Jcarlos Consulting Unavailable Paintsil, [place] Admitting Unavailable MoodisLuis Alberto monet Attending Unavailable Stephenie, Boyd Primary Care Unavailable Keya, Ang Consulting Unavailable Paintsil, [place] Consulting Unavailable Paintsil, [place] Admitting Unavailable Paintsil, [place] Attending Unavailable Stephenie, Boyd Primary Care Unavailable Keya, Ang Consulting Unavailable Paintsil, [place] Consulting Unavailable Stephenie, Boyd Primary Care Unavailable Paintsil, [place] Admitting Unavailable Jcarlos Bob Attending Unavailable Luis Alberto Bailey Consulting Unavailable MoodLuis Alberto cali Attending Unavailable Stephenie, Boyd Primary Care Unavailable Luis Alberto Bailey Attending Unavailable Giorgi, Teodora Referring Unavailable Moodispamisael, Luis Alberto Attending Unavailable Ashelfah, Ghasem Referring Unavailable Moodkarely, Luis Alberto Attending Unavailable Luis Alberto Bailey Referring Unavailable Stephenie, Boyd Primary Care Unavailable Cassy, Luis Alberto Attending Unavailable Luis Alberto Bailey Referring Unavailable Stephenie, Boyd Primary Care Unavailable Cassy, Luis Alberto Attending Unavailable Luis Alberto Bailey Referring Unavailable [facility], Boyd Primary Care Unavailable [facility], Boyd Attending [facility] Unavailable Bryant Villalobos Attending Unavailable Remy Turner Referring Unavailable [facility] Unavailable Ashelfah, Ghasem Admitting Unavailable Remy Momin Attending Unavailable Remy Turner Primary Care Unavailable Remy Momin Consulting Unavailable Ashelfah, Ghasem Admitting Unavailable Remy Momin Attending Unavailable Remy Turner Primary Care Unavailable Remy Momin Consulting Unavailable Ashelfah, Ghasem Admitting Unavailable Olvin Steiner Attending Unavailable Johnny Remy Primary Care Unavailable Remy Momin Consulting Unavailable Ashelfah, Ghasem Admitting Unavailable Moodkarely, Luis Alberto Attending Unavailable Johnny Remy Primary Care Unavailable Mitch, Kristel Consulting Unavailable Ashelfah, Ghasem Admitting Unavailable Moodkarely, Luis Alberto Attending Unavailable Johnny Remy Primary Care Unavailable Kristel Miller Consulting Unavailable Ashelfah, Ghasem Admitting Unavailable JohnnyRemy au Primary Care Unavailable Darell Milleriet Consulting Unavailable Mellisa Levine Attending Unavailable Ashelfah, Ghasem Admitting Unavailable Johnny, Remy Primary Care Unavailable Darell Milleriet Consulting Unavailable Mellisa Levine Attending Unavailable Ashelfah, Ghasem Admitting Unavailable Ashelfah, Ghasem Attending Unavailable Johnny Remy Primary Care Unavailable Ashelfah, Ghasem Consulting Unavailable Johnny Remy Primary Care Unavailable Ashelfah, Ghasem Admitting Unavailable Remy Momin Attending Unavailable Luis Alberto Bailey Attending Unavailable Luis Alberto Bailey Referring Unavailable [facility], Boyd Primary Care Unavailable Luis Alberto Bailey Attending Unavailable Stephenie, Boyd Primary Care Unavailable Luis Alberto Bailey Attending Unavailable Luis Alberto Bailey Referring Unavailable Stephenie, Boyd Primary Care Unavailable Luis Alberto Bailey Consulting Unavailable Luis Alberto Bailey Attending Unavailable Stephenie, Boyd Primary Care Unavailable Luis Alberto Bailey Attending Unavailable Luis Alberto Bailey Referring Unavailable Boyd Casiano Primary Care Unavailable Abebe Sullivan Admitting Unavailable Luis Alberto Bailey Attending Unavailable Remy Turner Primary Care Unavailable Remy Momin Consulting Unavailable PROBLEMS PROBLEMS DATE TYPE CONDITION / CODE ATTENDING STATUS SOURCE 07/06/2018 Unknown E03.9 - Boyd Casiano Active [place] Hypothyroidism, Community unspecified / Hospital E03.9(ICD-10) Repository 07/06/2018 Unknown I10 - Essential Boyd Casiano Active [place] (primary) hypertension Community / I10(ICD-10) Hospital Repository 05/16/2018 Unknown I25.10 - [place], Active [place] 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 / I25.10(ICD-10) 05/06/2018 Unknown I12.9 - Hypertensive [place], Active [place] chronic kidney disease [facility] with stage 1 through Hospital stage 4 chronic kidney Repository disease, or unspecified chronic kidney disease / I12.9(ICD-10) 03/24/2018 Unknown I35.0 - Nonrheumatic [place], Active [place] aortic (valve) [facility] stenosis / Hospital I35.0(ICD-10) Repository 03/16/2018 Unknown Z95.5 - Presence of [place], Active [place] coronary angioplasty [facility] implant and graft / Hospital Z95.5(ICD-10) Repository 03/16/2018 Unknown E78.00 - Pure [place], Active [place] hypercholesterolemia, [facility] unspecified / Hospital E78.00(ICD-10) Repository 04/10/2018 Unknown I25.110 - Paulino, Jcarlos Active [place] 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 with Repository unstable angina pectoris / I25.110(ICD-10) 04/10/2018 Unknown E78.5 - Paulino, Jcarlos Active [place] Hyperlipidemia, [facility] unspecified / Hospital E78.5(ICD-10) Repository 02/06/2018 Unknown R73.01 - Impaired Boyd Casiano Active [place] fasting glucose / Community R73.01(ICD-10) Hospital Repository 02/25/2018 Unknown R07.9 - Chest pain, [place], Active [place] unspecified / [facility] R07.9(ICD-10) Hospital Repository 02/25/2018 Unknown R94.31 - Abnormal [place], Active [place] electrocardiogram [facility] [ECG] [EKG] / Hospital R94.31(ICD-10) Repository 02/25/2018 Unknown R00.1 - Bradycardia, [place], Active [place] unspecified / [facility] R00.1(ICD-10) Hospital Repository 09/15/2017 Unknown J02.9 - Acute Remy Turner Active [place] pharyngitis, [facility] unspecified / Hospital J02.9(ICD-10) Repository PROCEDURES PROCEDURES No Procedure Records FoundRESULTS RESULTS BASIC METABOLIC Collected: 07/06/2018 Status: F Source: [place] PROFILE (BMP) 10:26 AM [facility] REPOSITORY TYPE CODE TESTS RESULT OUT OF RANGE REFERENCE UNITS LAB L501.0100 74-106 mg/dL Normal GLU 91 Result Comment: Please note revised GLUCOSE reference range effective 2017. LAB L501.1000 7-18 mg/dL High BUN 26 LAB L501.1100 0.55-1.02 mg/dL High CREAT,SERUM 1.19 Result Comment: The validity of the calculated GFR AND GFRAA in patients over 70 years has not been determined. Clinical correlation is essential. LAB L501.1110 >60 mL/min Low EST GFR 46 Result Comment: Non- GFR Calc LAB L501.1115 >60 mL/min Low EST GFR - AA 56 Result Comment: GFR Calc LAB L501.1300 10-20 RATIO High BUN/CRE 21.8 LAB L501.2200 8.5-10.1 mg/dL CA Normal 9.1 LAB L501.5300 136-145 mmol/L NA Normal 139 LAB L501.5600 3.5-5.1 mmol/L K Normal 4.2 LAB L501.5900 98-107 mmol/L CL Normal 102 LAB L501.6100 21.0-32.0 mmol/L Normal CO2 29.0 LAB L501.6200 5-15 Normal GAP 8 Performed By: #### L500.2500, L501.9520, L506.0400 #### [facility] [address] [place], [address] THYROID STIM HORMONE Collected: 07/06/2018 Status: F Source: [place] (TSH) 10:26 AM [facility] REPOSITORY TYPE CODE TESTS RESULT OUT OF RANGE REFERENCE UNITS LAB L501.9520 0.358-3.74 uIU/mL Normal TSH 0.95 Performed By: #### L500.2500, L501.9520, L506.0400 #### [facility] [address] [place], [address] T4 FREE DIRECT Collected: 07/06/2018 Status: F Source: [place] 10:26 AM [facility] REPOSITORY TYPE CODE TESTS RESULT OUT OF RANGE REFERENCE UNITS LAB L506.0400 0.76-1.46 ng/dL Normal T4 FREE 1.08 DIRECT Performed By: #### L500.2500, L501.9520, L506.0400 #### [place] [facility] [address] [place], [address] BASIC METABOLIC Collected: 04/18/2018 Status: F Source: [place] PROFILE (BMP) 8:54 AM [facility] REPOSITORY TYPE CODE TESTS RESULT OUT OF RANGE REFERENCE UNITS LAB L501.0100 74-106 mg/dL Normal GLU 98 Result Comment: Please note revised GLUCOSE reference range effective 2017. LAB L501.1000 7-18 mg/dL High BUN 21 LAB L501.1100 0.55-1.02 mg/dL High CREAT,SERUM 1.06 Result Comment: The validity of the calculated GFR AND GFRAA in patients over 70 years has not been determined. Clinical correlation is essential. LAB L501.1110 >60 mL/min Low EST GFR 53 Result Comment: Non- GFR Calc LAB L501.1115 >60 mL/min Normal EST GFR - AA 64 Result Comment: GFR Calc LAB L501.1300 10-20 RATIO Normal BUN/CRE 19.8 LAB L501.2200 8.5-10.1 mg/dL CA Normal 9.1 LAB L501.5300 136-145 mmol/L NA Normal 137 LAB L501.5600 3.5-5.1 mmol/L K Normal 4.1 LAB L501.5900 98-107 mmol/L CL Normal 101 LAB L501.6100 21.0-32.0 mmol/L Normal CO2 29.0 LAB L501.6200 5-15 Normal GAP 7 Performed By: #### L500.2500 #### [facility] [address] [place], [address] ECHOCARDIOGRAM COMPLETE Observed: 03/24/2018 Status: F Source: [place] 4:59 PM [facility] REPOSITORY [facility] [address] [place] [address] Echo Complete 03/24/18 1358 MR#: [id number] Acct: [id number] Name: PRECIOUS LEIGH Rep #: [id number] : 1935 82 From: Luis Alberto Bailey MD Attending Dr: Luis Alberto Bailey MD Status: REG CLI Ordering Dr: Luis Alberto Bailey MD Date: 03/24/18 Location: [facility] Sex: F C Admitted: Reason For Study: MURMUR Procedure This was a 2D Doppler, Color Flow transthoracic echocardiogram. The exam was of adequate technical quality. Exam performed in department. Left Ventricle Normal LV size. Left ventricular systolic function is normal. The estimated ejection fraction is 65 %. There is evidence of diastolic dysfunction. No regional wall motion abnormalities noted. Right Ventricle Normal RV size. Normal systolic function. Atria The left atrium is mildly enlarged. Normal right atrium. No doppler evidence for ASD. Mitral Valve There is mild to moderate mitral annular calcification. Extension of the mitral annular calcification onto the posterior mitral valve leaflet. Mild diffuse mitral valve thickening. Mild focal mitral valve calcification of the anterior leaflet. Mitral valve doming/Hockey Sticking. Mild (1+) eccentric mitral valve insufficiency. Tricuspid Valve Normal tricuspid valve. Mild to moderate (1-2+) tricuspid valve insufficiency. Right ventricular systolic pressure estimated to be 28 mmHg. Aortic Valve Trisinus/trileaflet aortic valve. Mild diffuse aortic valve thickening. Mild focal aortic valve calcification. Aortic valve sclerosis / mild aortic valve stenosis. Mild (1+) aortic valve insufficiency. Pulmonic Valve The pulmonic valve is not well visualized. Great Vessels Normal sized aortic root. MMode/2D Measurements AND Calculations LVIDd: 4.5 cm IVSd: 1.2 cm LVOT diam: 2.0 cm LVIDs: 2.9 cm LVPWd: 1.1 cm LVOT area: 3.1 cm2 RVDd: 3.2 cm FS: 35.9 % Ao root diam: 3.0 cm LAV(MOD-bp): 64.8 ml EDV(MOD-sp4): 96.5 ml LA dimension: 4.3 cm LAV(MOD-bp) Indexed: 37.1 ml/m2 ESV(MOD-sp4): 40.3 ml LAV(MOD-sp2): 53.9 ml EF(MOD-sp4): 58.3 % LAV(MOD-sp4): 67.5 ml EDV(MOD-sp2): 89.7 ml SV(MOD-sp4): 56.2 ml SV(MOD-sp2): 52.4 ml EF(MOD-sp2): 58.5 % LA A4 area: 22.3 cm2 RA A4 area: 16.3 cm2 Time Measurements MV dec time: 0.26 sec Doppler Measurements AND Calculations MV E max ronit: 103.1 cm/sec Lat Peak E' Ronit: 6.6 cm/sec Med Peak E' Ronit: 4.9 cm/sec MV A max ronit: 110.6 cm/sec E/E' lat: 15.7 E/E' med: 21.0 MV E/A: 0.93 MV V2 max: 118.5 cm/sec Ao V2 max: 214.3 cm/sec AI max ronit: 414.5 cm/sec MV max P.6 mmHg Ao max P.4 mmHg AI max P.1 mmHg MV V2 mean: 62.3 cm/sec Ao V2 mean: 155.8 cm/sec AI dec slope: 247.7 cm/sec2 MV mean P.8 mmHg Ao mean P.5 mmHg AI P1/2t: 490.1 msec MV V2 VTI: 43.1 cm Ao V2 VTI: 52.6 cm MVA(VTI): 2.5 cm2 SHELTON(I,D): 2.0 cm2 SHELTON(V,D): 2.1 cm2 LV V1 max: 145.0 cm/sec SV(LVOT): 106.8 ml PA V2 max: 116.3 cm/sec LV V1 max P.4 mmHg LV V1 mean P.5 mmHg LV V1 mean: 100.3 cm/sec LV V1 VTI: 34.8 cm TR max ronit: 248.5 cm/sec TR max P.8 mmHg Interpretation Summary Left ventricular systolic function is normal. The estimated ejection fraction is 65 %. The left atrium is mildly enlarged. There is mild to moderate mitral annular calcification. Extension of the mitral annular calcification onto the posterior mitral valve leaflet. Mild diffuse mitral valve thickening. Mild focal mitral valve calcification of the anterior leaflet. Mitral valve doming/Hockey Sticking Mild (1+) eccentric mitral valve insufficiency. Mild to moderate (1-2+) tricuspid valve insufficiency. Aortic valve sclerosis / mild aortic valve stenosis. Mild (1+) aortic valve insufficiency. Right ventricular systolic pressure estimated to be 28 mmHg. There is evidence of diastolic dysfunction. Ordering Physician: Luis Alberto Bailey Referring Physician: BOYD CASIANO Performed By: Rosedna Ramos, RDCS, RVT 03/24/181657 Date Luis Alberto Bailey MD CC: Alondra Kelley MD; Luis Alberto Bailey MD; Boyd Casiano MD Date Dictated: 03/24/18 1358 Date Transcribed: 03/24/181657 Tawer: Signed CARDIOLOGY VISIT Observed: 03/16/2018 Status: F Source: [place] REPORT 2:47 PM [facility] REPOSITORY [place] [address] [place] [address] OFFICE VISIT Date of Service: 03/16/18 MR#: [id number] Acct: [id number] Name: PRECIOUS LEIGH Rep #: [id number] : 1935 Provider: Luis Alberto Bailey MD Age/Sex: 82/F Location: [facility] Status: Signed HPI HPI Details: PRECIOUS LEIGH, is a 82 F who presents to the office today for outpatient cardiovascular follow-up. As you know she has undergone a repeat [facility] cardiovascular evaluation leading to repeat cardiac catheterization and additional PCI of the LCx system. This is superimposed upon her more recent PCI procedure of her RCA system. This is superimposed upon her remote PCI of her LAD system. At the present time she is no longer having the same symptoms she had before with respect to her jaw discomfort. She states that there is been no other new acute symptoms, difficulty breathing, orthopnea, PND, or ongoing peripheral pitting edema. She is due to start cardiac rehabilitation this week. She states with the nitrate therapy she has noticed headaches. Intake Vital Signs03/16/18 Height 5 ft 2 in 03/16/18 Weight: 169 lb 03/16/18 Body Mass Index (BMI) 30.9 03/16/18 Blood Pressure 118/60 Intake Visit Reasons: 6 M FU Allergies Iodinated Contrast- Oral and IV Dye Allergy (Intermediate, Verified 03/16/18 14:04) Rash ramipril [From Altace] Adverse Reaction (Severe, Verified 03/16/18 14:04) cough Medications atorvastatin 10 mg tablet 10 mg PO DAILY 90 Days 06/10/17 [History Confirmed 03/16/18] levothyroxine 88 mcg tablet 88 mcg PO DAILY 90 Days 06/10/17 [History Confirmed 03/16/18] nitroglycerin 0.4 mg sublingual tablet 0.4 mg SUBLINGUAL Q5- 15M PRN 10 Days #2880 tab 06/10/17 [History Confirmed 03/16/18] potassium chloride ER 10 mEq tablet,extended release 10 meq PO QDAY 06/17/17 [History Confirmed 03/16/18] Ascorbic Acid [Vitamin C] 500 mg PO DAILY 01/16/18 [History Confirmed 03/16/18] Calcium Citrate 600 mg PO DAILY 01/16/18 [History Confirmed 03/16/18] Fish Oil 1 cap PO DAILY 01/16/18 [History Confirmed 03/16/18] Folic Acid 400 mcg PO DAILY@0800 01/16/18 [History Confirmed 03/16/18] Metoprolol Succinate [Toprol Xl] 50 mg PO QDAY 01/16/18 [History Confirmed 03/16/18] Multivitamin [Daily Multiple Vitamin] 1 ea PO DAILY 01/16/18 [History Confirmed 03/16/18] Triamterene/Hydrochlorothiazid [Dyazide 37.5-25 Capsule] 1 cap PO QDAY 01/16/18 [History Confirmed 03/16/18] Aspirin E.C. [Ecotrin] 81 mg PO DAILY@0800 tab 01/20/18 [Rx Confirmed 03/16/18] clopidogrel 75 mg tablet 75 mg PO QDAY #90 tab 02/03/18 [Rx Confirmed 03/16/18] Ubidecarenone [Co Q-10] 100 mg PO DAILY 03/09/18 [History Confirmed 03/16/18] Losartan Potassium 50 mg PO BID #60 tab 03/11/18 [Rx Confirmed 03/16/18] PFSH Medical History Nonrheumatic mitral (valve) insufficiency (Acute) Nonrheumatic aortic (valve) insufficiency (Acute) Nonrheumatic aortic (valve) stenosis (Chronic) Carotid artery disease (Chronic) Atherosclerotic heart disease of [place] coronary artery without angina pectoris (Chronic) Presence of stent in coronary artery (Chronic) Chest pain (Acute) CAD (coronary artery disease) (Acute) Angina pectoris (Acute) Valvular heart disease (Chronic) Hypothyroidism (Chronic) Hyperlipidemia (Chronic) HTN (hypertension), benign (Chronic) Aortic insufficiency (Inactive) Surgical History S/P coronary artery stent placement (Chronic 2018) History of cholecystectomy (Resolved) Family History Mother , Age 63 Myocardial infarction Father , Age 28 Colon cancer Social History Smoking Status: Never smoker alcohol intake: never caffeine: Yes Type: coffee Number of servings: 1 ROS Const Const: Positive for fatigue (dont have a whole lot of energy; fatigues easily) and weakness; negative for weight gain, weight loss, frequent falls or excessive sweating Eyes Eyes: Negative for change in vision, blurry vision or transient loss of vision ENT ENT: Negative for dizziness or balance problems Cardio Chest Pain: No Palpitations: No Edema: None Muscle aches with walking: None Additional Details: Patient denies pain but states that it feels like her chest is bruised inside; tender Resp Respiratory: Negative for SOB with activity or SOB at rest GI GI: Negative vomiting or vomiting blood/hematemesis : Negative for hematuria Musc Musc: Negative for balance problems, muscle aches/ myalgia, muscle weakness or joint pain Skin Skin: Negative non-healing lesions or rash Neuro Neuro: Positive for weakness; negative for blurry vision, dizziness, lightheadedness, frequent falls or orthostatic symptoms Kadeem Hematologic/Lymphatic: Negative for easy bleeding Endo Endo: Positive for fatigue (dont have a whole lot of energy; fatigues easily); negative for excessive sweating Psych Psych: Negative for anxiety or depression Allergy Allergy/Immunology: Negative for hives, Negative for rash Cardiology Exam Const Appearance: cooperative, no acute distress, well developed, healthy appearing and well groomed Nutritional Appearance: average body habitus Orientation: alert, awake and oriented x3 Head Head: normocephalic, atraumatic and normal to inspection Ears: hearing grossly normal bilaterally Nose: external nose normal Face and Sinus: face symmetric Mouth: moist mucous membranes Teeth and gingiva: fair dentition Eyes General: appearance normal, both eyes and all related structures Conjunctivae: conjunctivae normal Pupils: PERRL EOM: EOM intact bilaterally Neck Neck: normal visual inspection, no JVD and full ROM Carotids: bruit (faint left ) Neck Mass: Negative Neck mass Chest Chest inspection: normal inspection of the chest and symmetric chest movement Auscultation: Bilateral: Clear to Auscultation Cardio Palpation: normal PMI Rate: regular rate Rhythm: regular rhythm Heart sounds: S1 normal, S2 normal and murmur; negative rub or gallop Murmur: Grade 3/6, harsh, mid systolic, LLSB, LVOT and sternal notch GI GI: normal to inspection, soft and bowel sounds present; negative tender Neuro General: alert, awake, oriented x3 and moves all extremities Skin Skin: ecchymosis Extremities Pulses: Normal: Right Posterior Tibial Pulse, Left Posterior Tibial Pulse, Right Radial Pulse, Left Radial Pulse Lower Extremity Edema: None: Bilateral Psych Psychological: normal affect Supplemental Info A transthoracic echocardiogram was performed on 11/18/2014 Interpretation Summary Left ventricular systolic function is normal. The estimated ejection fraction is 65 %. The left atrium is moderately enlarged. There is mil.d mitral annular calcification. Extension of the mitral annular calcification onto the posterio mitral valve leaflet. Mild-Moderate (1-2+) mitral valve insufficiency. Mild tricuspid valve insufficiency. Mild. aortic stenosis. Mild (1+) aortic valve insufficiency. A stress test was performed on 02/13/2016 EXERCISE TOLERANCE TEST: The patient exercised on a Jenaro protocol for 6 minutes completing stage 2, achieving a peak heart rate of 133 beats per minute (93% predicted maximum heart rate) with a peak blood pressure 182/70 mmHg and a peak MET capacity of 7 METs. The baseline ECG demonstrated sinus bradycardia. The peak exercise ECG demonstrated approximately [address]-segment depression in leads II, III, aVF and V5 through V6 with resolution towards baseline beginning less than 1 minute in recovery. There was a rare PAC during recovery. There was occasional PVC during exercise and recovery. The functional capacity was considered average. The patient had no complaint of chest discomfort during exercise or recovery. The examination was discontinued secondary to dyspnea. IMPRESSION: 1. Technically adequate (percent predicted maximum heart rate greater than 85%), exercise tolerance test. 2. Peak exercise ECG with approximately [address]-segment depression in leads II, III, aVF, V5 through V6 with resolution towards baseline beginning less than 1 minute in recovery. 3. Rare PAC during recovery. 4. Occasional PVC during exercise or recovery. 5. Nuclear images pending. MYOCARDIAL PERFUSION IMAGING STUDY: TECHNIQUE: The patient was injected with 11.0 mCi of Tc99m Cardiolite and subsequently rest SPECT Cardiolite nuclear imaging was obtained in the horizontal long, vertical long and short axes views. The patient exercised on a Jenaro protocol for 6 minutes completing stage 2, achieving a peak heart rate of 133 beats per minute (93% predicted maximum heart rate) and a peak blood pressure of 182/70 mmHg and a peak MET capacity of approximately 7 METs. The patient was injected with 33.0 mCi of Tc99m Cardiolite and subsequently stress SPECT Cardiolite nuclear imaging was obtained in the horizontal long, vertical long and short axes views. A gated Cardiolite study at peak stress was obtained. INTERPRETATION: Rest and stress SPECT Cardiolite nuclear imaging, status post realignment, normalization, and attenuation correction appear to demonstrate an area of extracardiac/hepatic and gastrointestinal tracer uptake near the inferior segments. Otherwise, there appears to be relative uniform tracer uptake with the exception of a small area of subtle diminished tracer uptake near the apical segments without significant change between rest and stress. There is end systolic thickening and brightening. The gated Cardiolite study demonstrates myocardial thickening and inward wall motion. The reported LVEF was 76%. The aforementioned changes appear compatible with the effects of physiologic apical thinning with no myocardial perfusion changes considered diagnostic for associated stress-induced myocardial ischemia or previous myocardial injury/infarction. IMPRESSION: 1. Rest and stress SPECT Cardiolite nuclear imaging demonstrate myocardial perfusion changes appearing compatible with the effects of physiologic apical thinning with no myocardial perfusion changes considered diagnostic for associated stress-induced myocardial ischemia or previous myocardial injury/infarction. 2. The gated Cardiolite study reports an LVEF of 76%. A stress test was performed on 01/17/2018 Procedure: Pharmacologic stress nuclear imaging study Indications: Chest pain; CAD; status post PCI Consent: Per the patient Procedure: The patient underwent pharmacologic (Regadenoson) evaluation with a peak heart rate of 84 beats per minute (60 predicted maximal heart rate) and a peak blood pressure of 190/66 mmHg. The baseline ECG demonstrated normal sinus rhythm. The peak pharmacologic ECG demonstrated no obvious ECG changes. The postinfusion ECG demonstrated the appearance of 0.5-1 mm of horizontal/upsloping ST segment depression in leads II, III, aVF, with gradual improvement towards baseline in recovery. There were no cardiac dysrhythmias pretest, during pharmacologic infusion, or recovery. The patient noted chest/jaw discomfort during pharmacologic infusion with gradual resolution towards baseline in recovery. The examination was discontinued secondary to completion of protocol. Impression: 1. Pharmacologic (Regadenoson) evaluation 2. Peak pharmacologic ECG with with no obvious ECG changes. The postinfusion ECG demonstrated the appearance of 0.5-1 mm horizontal/upsloping ST segment depression in leads II, III, and aVF with gradual improvement towards baseline in recovery. 3. There were no cardiac dysrhythmias during pharmacologic infusion or recovery 4. Nuclear images pending Myocardial perfusion imaging study: Technique: The patient was injected with 12.0 millicuries of technetium 99m Cardiolite and subsequently rest SPECT Cardiolite nuclear imaging was obtained in the horizontal long, vertical long, and short axis views. The patient underwent pharmacologic (Regadenoson) evaluation with a peak heart rate of 84 beats per minute (60 % percent predicted maximal heart rate) and a peak blood pressure of 190/66 mmHg. The patient was injected with 35.8 millicuries of technetium 99m Cardiolite and subsequently stress SPECT Cardiolite nuclear imaging was obtained in the horizontal long, vertical long, and short axis views. A gated Cardiolite study at peak stress was obtained. Interpretation: Rest and stress SPECT Cardiolite nuclear imaging status post realignment, normalization, pre-attenuation correction, and post attenuation correction demonstrate on the pre-attenuation correction images an area of diminished tracer uptake in the mid inferior segments status post stress. These findings are less noticeable on the post attenuation correction images and otherwise there appears to be relative uniform tracer uptake. There is end systolic thickening and brightening. The gated Cardiolite study demonstrates myocardial thickening and inward wall motion. The reported LVEF is 79 %. Impression: 1. Rest and stress SPECT Cardiolite nuclear imaging pre-attenuation correction demonstrates an area of diminished tracer uptake in the mid inferior segments status post stress which appears to be less prominent on the post attenuation correction images and otherwise appears to demonstrate relative uniform tracer uptake. The aforementioned findings appear concerning for an area of stress-induced myocardial ischemia although a component of soft tissue attenuation/artifact cannot necessarily be excluded. 2. The gated Cardiolite study reports an LVEF of 79 %. Her most recent cardiac catheterization was performed on 03/10/2018 CORONARY ANGIOGRAPHY DOMINANCE: Right Dominant LEFT HEART ASSESSMENT Left Ventricular Ejection Fraction: by LV Gram 70 % Normal LV wall motion Elevated Left Ventricular End Diastolic Pressure LVEDP: 14 mmHg LEFT MAIN: Angiographically normal LEFT ANTERIOR DECENDING ARTERY: PROX LAD: Previously placed stent is patent CIRCUMFLEX ARTERY: PROX CIRC: Mild calcification, Eccentric: Hazy: 25 % Stenosis MID CIRC: Mild calcification, Eccentric: Hazy: 75 % Stenosis RIGHT CORONARY ARTERY: OSTIAL RCA: Previously placed stent is patent MID RCA: Previously placed stent is patent DISTAL RCA: Diffuse: Eccentric: 25 % Stenosis VALVE FINDINGS: LV pull back procedure: hemodynamic data not consistent with hemodynamically significant aortic valve stenosis Mitral Valve Annular Calcification: Moderate AORTIC ROOT: Angiographically normal Her most recent PCI was performed on 03/10/2018 CONCLUSIONS Successful PTCA/LEANDER Mid LCX using Elunir 2.5x12 mm Previous PCI was performed on 01/19/2018 CONCLUSIONS Successful PTCA/LEANDER of the of mid RCA with a 2.5 x 24 Promus Synergy stent, post dilated distally with a 3.0 x 8 NC Balloon at 14 radha, and post dilated throughout with same NC balloon to 10 radha. 85%-->0%, no dissection. A remote PCI was performed on 02/23/2004 at [facility] at which time she received PTCA/stent to the LAD using a LEANDER. She also had a Holter monitor on 11/16/2014 THIS IS A48 HOUR HOLTER MONITOR IN NORMAL SINUS RHYTHM WITH PERIODS OF SINUS ARRHYTHMIA. MINIMUM HEART RATE WAS 47 BPM AT 5:29:13AM Dl NO ACTIVITY OR SYMPTOM RECORDED. MAXIMUM HEART RATE WAS 90 BPM AT 10:34:17 AM D2, NO ACTIVITY OR SYMPTOM RECORDED. AVERAGE HEART RATE NOTED TO BE 59 BPM. RARE PREMATURE ATRIAL COMPLEXES. 4ATRIAL COUPLETS. 3 RUNS TOTALING 16 BEATS. THE LONGEST AND FASTEST RUN WAS 9 BEATS OF PROBABLE ECTOPIC ATRIAL RHYTHM RATE 145 BPM AT 2:01:52 PM Dl. RARE PREMATURE VENTRICULAR COMPLEXES. NO RUNS NOTED. THE PATIENT KEPT A 48 HOUR DIARY AND REPORTED DIZZINESS, WEAKNESS AND SOB WHICH DID NOT CORRELATE WITH THE SCAN. Assessment AND Plan 1. Atherosclerosis of [place] coronary artery of [place] heart without angina pectoris I25.10 Plan At the present time she appears to be doing reasonably well. She is going to continue her current medical therapy with the exception of being allowed, now that she is status post a recent 2 PCI procedures, to discontinue her nitrate therapy. She will need to monitor for any obvious recurrent concerning symptoms or adverse events. She will proceed with cardiac rehabilitation. Orders Orders: 2. S/P coronary artery stent placement Z95.5 LEANDER to mid RCA 2.5 X 24 mm Synergy 01/19/[address] Steiner,[facility]; PTCA/LEANDER of the mid LCX 03/10/[address] Torrez [facility] Plan Again she has now had all 3 major coronary artery systems undergo PCI at some point in time either remotely or recently. She will need to continue risk factor evaluation care as deemed appropriate. She will continue with cardiac rehabilitation. 3. 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 It has been 3 years since this was assessed noninvasively. She is going to have a follow-up transthoracic echocardiogram. In the cardiac catheterization laboratory, based on her LV pullback procedures, it not did not appear that she had hemodynamic evidence suggestive of hemodynamically significant aortic valve stenosis. Orders Orders: 4. Pure hypercholesterolemia E78.00 Plan She will continue risk factor modification, medical therapy, and laboratory follow-up as deemed appropriate. 5. HTN (hypertension), benign I10 Plan Her blood pressure appears to be reasonably well-controlled. She will continue her medication. Plan Detail Other Medications Discontinued: isosorbide mononitrate ER Discontinued Reason: Order Chang60 mg PO DAILY 30 tabs 0RF ed Additional Comments Thank you for allowing me to participate in the care of your patient. Please don't hesitate to call if any issues arise. This note was generated using a voice recognition system and there may be incorrect words, spelling or punctuation that were not noted when reviewing the office note prior to saving. Follow Up 6 Months (PFM) Coding Level of Care Code Off vis,est,level 4 Diagnoses Atherosclerosis of [place] coronary artery of [place] heart without angina pectoris I25.10 [place] vs. transplanted heart: [place] heart S/P coronary artery stent placement Z95.5 Nonrheumatic aortic (valve) stenosis I35.0 Pure hypercholesterolemia E78.00 Hyperlipidemia type: pure hypercholesterolemia HTN (hypertension), benign I10 Coding Level of Care Code Off vis,est,level 4 Diagnoses Atherosclerosis of [place] coronary artery of [place] heart without angina pectoris I25.10 [place] vs. transplanted heart: [place] heart S/P coronary artery stent placement Z95.5 Nonrheumatic aortic (valve) stenosis I35.0 Pure hypercholesterolemia E78.00 Hyperlipidemia type: pure hypercholesterolemia HTN (hypertension), benign I10 03/16/18 1447 <Electronically signed by Luis Alberto Bailey MD> Date Luis Alberto Bailey MD Cosigner Signature: Date (if applicable) CC: Boyd Casiano MD 12 LEAD ELECTROCARDIOGRAM Observed: 03/13/2018 Status: F Source: [place] 3:00 PM [facility] REPOSITORY [facility] Cardiovascular Services [address] [place] [address] 12 Lead EKG 03/10/18 0955 MR#: [id number] Acct: [id number] Name: PRECIOUS LEIGH Rep #: [id number] : 1935 82 From: Ang Laura MD Attending Dr: Jcarlos Bob MD Status: DIS IN Ordering Dr: Adele Torrez MD Date: 03/10/18 Location: ICU Sex: F C Admitted: 03/09/18 Test Reason : PCI Blood Pressure : / mmHG Vent. Rate : 057 BPM Atrial Rate : 057 BPM P-R Int : 158 ms QRS Dur : 084 ms QT Int : 454 ms P-R-T Axes : 068 -02 016 degrees QTc Int : 441 ms Sinus bradycardia Otherwise normal ECG No previous ECGs available Confirmed by ANG LAURA MD ([id number]), deputy editor in chief RIVERA EASTON ([id number]) on 03/13/2018 3:00:22 PM Referred By: YVONNE Confirmed By:ANG LAURA MD 03/13/18 1500 Date Ang Laura MD CC: Adele Torrez MD; Jcarlos Bob MD; Boyd Casiano MD Signed 12 LEAD ELECTROCARDIOGRAM Observed: 03/13/2018 Status: F Source: [place] 2:33 PM [facility] REPOSITORY [facility] Cardiovascular Services [address] [place] [address] 12 Lead EKG 03/10/18 0503 MR#: [id number] Acct: [id number] Name: PRECIOUS LEIGH Rep #: [id number] : 1935 82 From: Luis Alberto Bailey MD Attending Dr: Jcarlos Bob MD Status: DIS IN Ordering Dr: Luis Alberto Bailey MD Date: 03/10/18 Location: ICU Sex: F C Admitted: 03/09/18 Test Reason : AM EKG Blood Pressure : / mmHG Vent. Rate : 057 BPM Atrial Rate : 057 BPM P-R Int : 160 ms QRS Dur : 078 ms QT Int : 458 ms P-R-T Axes : 072 010 027 degrees QTc Int : 445 ms Sinus bradycardia Otherwise normal ECG When compared with ECG of 09-MAR-2018 13:34, MANUAL COMPARISON REQUIRED, DATA IS UNCONFIRMED Confirmed by LUIS ALBERTO BAILEY MD ([id number]), deputy editor in chief RIVERA EASTON ([id number]) on 03/13/2018 2:33:03 PM Referred By: ADAM Confirmed By:LUIS ALBERTO BAILEY MD 03/13/18 1433 Date Luis Alberto Bailey MD CC: Luis Alberto Bailey MD; Jcarlos Bob MD; Boyd Casiano MD Signed 12 LEAD ELECTROCARDIOGRAM Observed: 03/13/2018 Status: F Source: [place] 2:28 PM [facility] REPOSITORY [facility] [place] [address] 12 Lead EKG 03/11/18 0511 MR#: [id number] Acct: [id number] Name: PRECIOUS LEIGH Rep #: [id number] : 1935 82 From: Luis Alberto Bailey MD Attending Dr: Jcarlos Bob MD Status: DIS IN Ordering Dr: Adele Torrez MD Date: 03/11/18 Location: ICU Sex: F C Admitted: 03/09/18 Test Reason : AM EKG Blood Pressure : / mmHG Vent. Rate : 058 BPM Atrial Rate : 058 BPM P-R Int : 156 ms QRS Dur : 084 ms QT Int : 436 ms P-R-T Axes : 065 009 035 degrees QTc Int : 428 ms Sinus bradycardia Otherwise normal ECG When compared with ECG of 10-MAR-2018 05:03, MANUAL COMPARISON REQUIRED, DATA IS UNCONFIRMED Confirmed by LUIS ALBERTO BAILEY MD ([id number]), deputy editor in chief RIVERA EASTON ([id number]) on 03/13/2018 2:28:23 PM Referred By: PAULINO HOUSE Confirmed By:LUIS ALBERTO BAILEY MD 03/13/18 1428 Date Luis Alberto Bailey MD CC: Adele Torrez MD; Jcarlos Bob MD; Boyd Casiano MD Signed URINALYSIS, COMPLETE Collected: 03/13/2018 Status: F Source: [place] 10:45 AM [facility] REPOSITORY Order Comment: How was Urine Obtained? CLEAN CATCH TYPE CODE TESTS RESULT OUT OF RANGE REFERENCE UNITS LAB L400.3000 Yellow COLOR Normal Yellow LAB L400.3050 Clear Normal CLARITY Sl. Cloudy LAB L400.3200 Normal mg/dl Normal GLUCOSE, UR Normal LAB L400.3300 Negative mg/dL Normal BILIRUBIN URINE Negative LAB L400.3400 Negative mg/dl Normal KETONE UR Negative LAB L400.3465 1.002-1.030 Normal SP.GR. DIPSTX 1.010 LAB L400.3550 5.0 - 8.0 pH UR Normal 8.0 LAB L400.3600 Negative mg/dl PROT Normal DIPSTX Negative LAB L400.3700 Normal mg/dl Normal UROBILI Normal LAB L400.3750 Negative Normal NITRITE UR Negative LAB L400.3780 Negative /ul Normal OCCULT BLOOD-UR Negative LAB L400.3800 Negative /ul LEUK Normal ESTERASE Negative LAB L400.4050 0-5 /hpf WBC 0 Normal SEEN LAB L400.4100 0-5 /hpf 0 Normal RBC-UA SEEN LAB L400.4150 5-10 /hpf SQUAM Normal EPI 0-5 SEEN LAB L400.4300 None Seen /hpf 0 Normal BACTERIA SEEN LAB L400.4350 <or=2+ /hpf 0 Normal MUCUS, URINE SEEN Performed By: #### L400.0001, M100.0650 #### [facility] [place], [address] Observed: 03/13/2018 Status: F Source: [place] CULTURE, URINE 10:45 AM [facility] REPOSITORY Urine Culture Below infection level. ORGANISM 1: Beta hemolytic streptococcus Assaria Count <1000 Performed By: #### L400.0001, M100.0650 #### [facility] [address] [place] [address], [address] DISCHARGE SUMMARY Observed: 03/11/2018 Status: F Source: [place] 9:49 AM [facility] REPOSITORY [facility] Medical Records Department [address] [place] [address] Discharge Summary 03/11/18914 MR#: [id number] Acct: [id number] Name: PRECIOUS LEIGH Rep #: [id number] : 1935 82 From: Fernando CERNA PCP: Boyd Casiano MD Status: ADM IN Y Location: ICU [id number] <Fernando John - Last Filed: 03/11/18 09:15> Discharge Date and Diagnosis - Problem List Patient Problems: Active and Suspected Problems (Last Updated 01/19/18 @ 10:07 by Julia Hagan) Chest pain (Acute) CAD (coronary artery disease) (Acute) Date of Admission: 03/09/18 Date of Discharge: 03/11/18 - Primary Discharge Diagnosis Active and Suspected Problems (Last Updated 01/19/18 @ 10:07 by Julia Hagan) Chest pain 2/2 CAD - stent placed to mid lcx HTN HLD Hypothyroidism - Secondary Discharge Diagnosis Chronic Problems (Last Updated 03/10/18 @ 17:03 by Joi Ballard) Presence of stent in coronary artery (Chronic) Previous LEANDER to proxiimal to mid LAD 3.0 X 32 mm Taxus 02/23/[address] Daquan Meyer, [facility];LEANDER to mid RCA 2.5 X 24 mm Synergy 01/19/[address] Steiner,[facility]; PTCA/LEANDER of the mid LCX 03/10/[address] Torrez [facility] Valvular heart disease (Chronic) Hypothyroidism (Chronic) Aortic insufficiency (Chronic) Hyperlipidemia (Chronic) HTN (hypertension), benign (Chronic) S/P coronary artery stent placement (Chronic 2018) LEANDER to mid RCA 2.5 X 24 mm [facility] [facility] PTCA/LEANDER of the mid LCX 03/10/[address] Torrez [facility] Hospital Course and Treatment Imaging Results: Cath report: CONCLUSIONS Successful PTCA/LEANDER Mid LCX using Elunir 2.5x12 mm RECOMMENDATIONS ASA Indefinitley Plavix for at least 12 months Follow up with Dr. Bailey RAD/Chest 1 View (Portable) IMPRESSION: No acute abnormality is seen. Consults: Cardiology - Yvonne/Cassy Operations: None Procedures: Cardiac catheterization Summary of Care Provided: Physical exam on day of discharge: General: Resting comfortably NAD Psych: A/Ox3 normal affect HEENT: LAURARLA AT NC Neck: Supple NT CV: RRR no m/t/r/g/h Resp: CTA Abd: [id number] Soft NT no guarding or rigidity Ext: DP2+= no edema right wrist heart cath site without bleeding, erythema, tenderness, tracking. Skin: W/D normal turgor Lymph/Heme: No active bleeding or adenopathy Neuro: CN2-12 intact Hospital course: The patient is a 82 year old F with CAD with 4 previous stents (one only two months prior), htn, hld, hypothyroidism, and obesity, who presented to the ER with c/o chest pain x2 days described as left sided radiating into her jaw worse with activity better with rest. EKG showed no acute process, troponin and CXR were negative. Cardiology was consulted and felt that the patient should undergo diagnostic cardiac cath. This was performed and found significant stenosis of the mid lcx and was successfully stented. Post stent she had no further chest pain. She was already on asa, plavix, losartan, and toprol. BP remained significantly elevated so losartan was increased and imdur was started. She remained stable and was discharged home. She will follow up with cardiac rehab, Dr. Bailey, and her PCP. This patient was seen by Fernando John PA-C under the supervision of Doctor Bob. [] Discharge Diet: Low fat/ Low Cholesterol, 2000 mg Sodium Diet Discharge Activity: Return to Normal Activity Home Medications: Medications to take at Discharge atorvastatin 10 mg tablet 10 mg PO DAILY 90 Days 06/10/17 levothyroxine 88 mcg tablet 88 mcg PO DAILY 90 Days 06/10/17 nitroglycerin 0.4 mg sublingual tablet 0.4 mg SUBLINGUAL Q5- 15M PRN 10 Days #2880 tab 06/10/17 potassium chloride ER 10 mEq tablet,extended release 10 meq PO QDAY 06/17/17 Ascorbic Acid [Vitamin C] 500 mg PO DAILY 01/16/18 Calcium Citrate 600 mg PO DAILY 01/16/18 Fish Oil 1 capsule PO DAILY 01/16/18 Folic Acid 400 mcg PO DAILY@0800 01/16/18 Metoprolol Succinate [Toprol Xl] 50 mg PO QDAY 01/16/18 Multivitamin [Daily Multiple Vitamin] 1 each PO DAILY 01/16/18 Triamterene/Hydrochlorothiazid [Dyazide 37.5-25 Capsule] 1 cap PO QDAY 01/16/18 Aspirin E.C. [Ecotrin] 81 mg PO DAILY@0800 tablet 01/20/18 clopidogrel 75 mg tablet 75 mg PO QDAY #90 tab 02/03/18 Ubidecarenone [Co Q-10] 100 mg PO DAILY 03/09/18 Calcium (Elemental) [Os-Stevie 500] 500 mg PO DAILY@0800 tablet 03/11/18 Isosorbide Mononitrate [Imdur] 60 mg PO DAILY #30 tablet 03/11/18 Losartan Potassium 50 mg PO BID #60 tablet 03/11/18 Following Prescrptions Were Given to Patient: Isosorbide Mononitrate [Imdur] 60 mg PO DAILY #30 tablet Losartan Potassium 50 mg PO BID #60 tablet Primary Care Physician: Boyd Casiano MD [Primary Care Provider] - Please follow up with your Primary Care Physician in: 2 weeks Please Follow Up With: Luis Alberto Bailey MD When: 1-2 weeks Please Follow Up With: Cardiac Rehab When: As directed Disposition: Home Minutes spent on discharge:: 35 Patient Condition:: Stable Medical Necessity - Tobacco Use Smoking Status: Never smoker Tobacco Use: Non-smoker Meaningful Use Info Meaningful Use Diagnoses (Choose all that apply): None applicable <Jcarlos Bob - Last Filed: 03/11/18 09:49> Discharge Date and Diagnosis - Primary Discharge Diagnosis Active and Suspected Problems (Last Updated 01/19/18 @ 10:07 by Julia Hagan) Chest pain (Acute) CAD (coronary artery disease) (Acute) - Secondary Discharge Diagnosis Chronic Problems (Last Updated 03/10/18 @ 17:03 by Joi Ballard) Presence of stent in coronary artery (Chronic) Previous LEANDER to proxiimal to mid LAD 3.0 X 32 mm Taxus 02/23/[address] Daquan Meyer, [facility];LEANDER to mid RCA 2.5 X 24 mm Synergy 01/19/[address] Steiner,[facility]; PTCA/LEANDER of the mid LCX 03/10/[address] Torrez [facility] Valvular heart disease (Chronic) Hypothyroidism (Chronic) Aortic insufficiency (Chronic) Hyperlipidemia (Chronic) HTN (hypertension), benign (Chronic) S/P coronary artery stent placement (Chronic 2018) LEANDER to mid RCA 2.5 X 24 mm [facility] [facility]/LEANDER of the mid LCX 03/10/[address] Torrez [facility] Hospital Course and Treatment Summary of Care Provided: The patient was seen and examined today. Discussed with regarding the optimal control of blood pressure and compliance with medications. Discussed with Dr. Bailey General: Alert, Oriented x3, Cooperative HEENT: Atraumatic, PERRLA, EOMI, Normocephalic Neck: Supple, No JVD, Negative Carotid Bruits Lungs: Clear to auscultation, Normal air movement Cardiovascular: Regular rate, Regular Rhythm, Normal S1, Normal S2, No murmurs Abdomen: Bowel Sounds Present, Soft, Non Tender, Non-Distended Extremities: No edema, Capillary Refill Less than 3 Seconds Skin: No rashes, No breakdown. Right radial artery access shows no hematoma or bruise. Musculoskeletal: No Tenderness to Palpation of Joints or Extremities, Arthritic Changes Neurological: Cranial nerves II-XII grossly intact, Neuro grossly intact Psych/Mental Status: Normal Affect, Appropriate This patient was seen in conjunction with Fernando CERNA. I have independently interviewed and examined the patient and reviewed pertinent history, examination findings, laboratory and plan of management. I have reviewed the note and agree with the documented findings with the few additional points. In brief, patient is admitted for unstable angina with history of coronary artery disease status post. Patient had cardiac cath 03/10/2018 and stent was put in in mid left circumflex. She was monitored in the ICU and did not had major untoward event Discharge meds reconciliation done. Discharge follow-up instructions given. Patient will follow up with Dr. Bailey. Patient can attend cardiac rehab from next week. Total time spent, exact 35 minutes on discharge meds reconciliation, examination, review of imaging and blood test and discussion with the patient on follow-up instructions. I have discussed my assessment with Fernando CERNA and orders have been reviewed. Code Visit Inpatient E AND M: [id number] Disch Hosp 03/11/18 0922 <Electronically signed by Fernando CERNA> Date Fernando CERNA 03/11/18 0949<Electronically signed by Jcarlos Bob MD> Cosigner Signature (if applicable): Date Jcarlos Bob MD CC: ERYN John; Jcarlos Bob MD; Boyd Casiano MD Signed 12 LEAD ELECTROCARDIOGRAM Observed: 03/11/2018 Status: F Source: [place] 9:25 AM [facility] REPOSITORY [facility] Cardiovascular Services [address] [place], [place] [address] [address] 12 Lead EKG 03/09/18 1334 MR#: [id number] Acct: [id number] Name: PRECIOUS LEIGH Rep #: [id number] : 1935 82 From: Ang Laura MD Attending Dr: Jcarlos Bob MD Status: ADM IN Ordering Dr: Marian Deutsch MD Date: 03/09/18 Location: ICU Sex: F C Admitted: 03/09/18 Test Reason : CP Blood Pressure : / mmHG Vent. Rate : 061 BPM Atrial Rate : 061 BPM P-R Int : 156 ms QRS Dur : 084 ms QT Int : 414 ms P-R-T Axes : 055 013 049 degrees QTc Int : 416 ms Normal sinus rhythm Minimal voltage criteria for LVH, may be normal variant Borderline ECG Confirmed by KEYA WYNN, ANG ([id number]), deputy editor in chief RIVERA EASTON ([id number]) on 03/11/2018 9:24:56 AM Referred By: Confirmed By:ANG LAURA MD 03/11/18 0925 Date Ang Laura MD CC: Marian Deutsch MD; Jcarlos Bob MD; Boyd Casiano MD Signed DISCHARGE INSTRUCTION Observed: 03/11/2018 Status: F Source: [place] 9:15 AM [facility] REPOSITORY [facility] Medical Records Department [address] [place] [address] Instructions for Home/Discharge Instructions 03/11/18912 MR#: [id number] Acct: [id number] Name: PRECIOUS LEIGH Rep #: [id number] : 1935 82 From: Fernando CERNA PCP: Boyd Casiano MD Status: ADM IN - Discharge Diagnoses Current Active Problems: Current Active and Chronic Problems (Last Updated 01/19/18 @ 10:07 by Julia Hagan) Chest pain (Acute) CAD (coronary artery disease) (Acute) You will use the following diet at home:: Cardiac Your food should be the consistency of: Regular Your liquids should be the consistency of: Regular/Thin Discharge Activity: Return to Normal Activity Allergies/Adverse Reactions: Allergies Iodinated Contrast- Oral and IV Dye Allergy (Intermediate, Verified 02/03/18 10:36) Rash ramipril [From Altace] Adverse Reaction (Severe, Verified 02/03/18 10:36) cough Medications to take at Discharge atorvastatin 10 mg tablet 10 mg PO DAILY 90 Days 06/10/17 levothyroxine 88 mcg tablet 88 mcg PO DAILY 90 Days 06/10/17 nitroglycerin 0.4 mg sublingual tablet 0.4 mg SUBLINGUAL Q5- 15M PRN 10 Days #2880 tab 06/10/17 potassium chloride ER 10 mEq tablet,extended release 10 meq PO QDAY 06/17/17 Ascorbic Acid [Vitamin C] 500 mg PO DAILY 01/16/18 Calcium Citrate 600 mg PO DAILY 01/16/18 Fish Oil 1 capsule PO DAILY 01/16/18 Folic Acid 400 mcg PO DAILY@0800 01/16/18 Metoprolol Succinate [Toprol Xl] 50 mg PO QDAY 01/16/18 Multivitamin [Daily Multiple Vitamin] 1 each PO DAILY 01/16/18 Triamterene/Hydrochlorothiazid [Dyazide 37.5-25 Capsule] 1 cap PO QDAY 01/16/18 Aspirin E.C. [Ecotrin] 81 mg PO DAILY@0800 tablet 01/20/18 clopidogrel 75 mg tablet 75 mg PO QDAY #90 tab 02/03/18 Ubidecarenone [Co Q-10] 100 mg PO DAILY 03/09/18 Calcium (Elemental) [Os-Stevie 500] 500 mg PO DAILY@0800 tablet 03/11/18 Isosorbide Mononitrate [Imdur] 60 mg PO DAILY #30 tablet 03/11/18 Losartan Potassium 50 mg PO BID #60 tablet 03/11/18 The following prescriptions were given: Isosorbide Mononitrate [Imdur] 60 mg PO DAILY #30 tablet Losartan Potassium 50 mg PO BID #60 tablet Primary Care Physician: Boyd Casiano MD [Primary Care Provider] - Please follow up with your Primary Care Physician in: 2 weeks Test Results: Test results from this visit will be discussed in further detail at your follow-up appointment, if applicable. Please Follow Up With: Luis Alberto Bailey MD When: 1-2 weeks Please Follow Up With: Cardiac Rehab When: As directed Proposed Discharge Date: 03/11/18 03/11/18914 <Electronically signed by Fernando CERNA> Date Fernando CERNA CC: Ang Laura MD; Boyd Casiano MD BASIC METABOLIC Collected: 03/11/2018 Status: F Source: [place] PROFILE ([facility]) 4:35 AM [facility] REPOSITORY TYPE CODE TESTS RESULT OUT OF RANGE REFERENCE UNITS LAB L501.0100 74-106 mg/dL High GLU 145 Result Comment: Fasting Glucose result greater than or equal to 126 mg/dL suggests DIABETES MELLITUS per A.D.A. criteria. Please note revised GLUCOSE reference range effective 2017. LAB L501.1000 7-18 mg/dL High BUN 31 LAB L501.1100 0.55-1.02 mg/dL High CREAT,SERUM 1.24 Result Comment: The validity of the calculated GFR AND GFRAA in patients over 70 years has not been determined. Clinical correlation is essential. LAB L501.1110 >60 mL/min Low EST GFR 44 Result Comment: Non- GFR Calc LAB L501.1115 >60 mL/min Low EST GFR - AA 54 Result Comment: GFR Calc LAB L501.1255 ml/min Normal Estimated CRCL 28.62 LAB L501.1300 10-20 RATIO High BUN/CRE 25.0 LAB L501.2200 8.5-10 mg/dL Normal .1 CA 8.8 LAB L501.5300 136-14 mmol/L Normal 5 NA 140 LAB L501.5600 3.5-5. mmol/L Normal 1 K 4.4 LAB L501.5900 98-107 mmol/L Normal CL 104 LAB L501.6100 21.0-3 mmol/L Normal 2.0 CO2 25.0 LAB L501.6200 5-15 Normal GAP 11 Performed By: #### L500.2500 #### [facility] [address] [place], [place], [id number] CBC-COMPLETE BLOOD CNT Collected: 03/11/2018 Status: F Source: [place] NO DIFF 4:35 AM [facility] REPOSITORY TYPE CODE TESTS RESULT OUT OF RANGE REFERENCE UNITS LAB L100.1000 4.4-11.0 K/mm3 High WBC 15.2 LAB L100.1200 4.2-5.4 M/mm3 Low RBC 3.63 LAB L100.1300 12.0-15.0 g/dl Low HGB 11.2 LAB L100.1400 37-47 % Low HCT 33.4 LAB L100.1500 81-99 fL Normal MCV 92.0 LAB L100.1600 27.0-32.0 pg Normal MCH 30.9 LAB L100.1700 32-36 g/gl Normal MCHC 33.5 LAB L100.1810 11.6-14.6 % Normal RDW CV 13.9 LAB L100.1820 35.1-43.9 fl High RDW SD 46.4 LAB L100.1900 150-450 K/mm3 Normal PLT 247 LAB L100.2000 6.2-12.0 fl Normal MPV 10.0 Performed By: #### L100.0500 #### [facility] [address] [facility]. [place], [place], [id number] ACT ACTIVATED CLOTTING Collected: 03/10/2018 Status: F Source: [place] TIME 9:18 AM [facility] REPOSITORY TYPE CODE TESTS RESULT OUT OF RANGE REFERENCE UNITS LAB L9100.0100 74-137 sec High ACTk CLOT 246 TIME Performed By: #### L9100.0100 #### [facility] Point of Care [address] [place] [address] ACT ACTIVATED CLOTTING Collected: 03/10/2018 Status: F Source: [place] TIME 8:56 AM [facility] REPOSITORY TYPE CODE TESTS RESULT OUT OF RANGE REFERENCE UNITS LAB L9100.0100 74-137 sec High ACTk CLOT 246 TIME Performed By: #### L9100.0100 #### [facility] Point of Care [address] [place] [address] CBC W/DIFF, AUTOMATED Collected: 03/10/2018 Status: F Source: [place] 4:15 AM [facility] REPOSITORY TYPE CODE TESTS RESULT OUT OF RANGE REFERENCE UNITS LAB L100.1000 4.4-11.0 K/mm3 Normal WBC 7.6 LAB L100.1200 4.2-5.4 M/mm3 Low RBC 3.91 LAB L100.1300 12.0-15.0 g/dl Normal HGB 12.1 LAB L100.1400 37-47 % Low HCT 36.4 LAB L100.1500 81-99 fL Normal MCV 93.1 LAB L100.1600 27.0-32.0 pg Normal MCH 30.9 LAB L100.1700 32-36 g/gl Normal MCHC 33.2 LAB L100.1810 11.6-14.6 % Normal RDW CV 13.6 LAB L100.1820 35.1-43.9 fl High RDW SD 45.3 LAB L100.1900 150-450 K/mm3 Normal PLT 242 LAB L100.2000 6.2-12.0 fl Normal MPV 9.9 LAB L100.2100 47-70 % High NEUT% 86.4 LAB L100.2200 19-41 % Low LY% 11.6 LAB L100.2300 0-10 % Normal MONO% 1.1 LAB L100.2400 0-5 % Normal EO% 0.3 LAB L100.2500 0-1 % Normal BASO% 0.3 LAB L100.2550 0.0-0.9 % Normal IM GRAN % 0.300 Result Comment: IG% - Immature Granulocytes (promyelocytes, myelocytes and metamyelocytes) > 1% indicates that a LEFT SHIFT is Present. LAB L100.2620 2.0-7.7 X10 3/uL Normal Absolute Neut 6.6 LAB L100.2720 0.83-4.51 X10 3/ul Normal Absolute Lymph 0.88 Performed By: #### L100.0100 #### [facility] [address] [facility] [place], [address] BASIC METABOLIC Collected: 03/10/2018 Status: F Source: [place] PROFILE ([facility]) 4:15 AM [facility] REPOSITORY TYPE CODE TESTS RESULT OUT OF RANGE REFERENCE UNITS LAB L501.0100 74-106 mg/dL High GLU 159 Result Comment: Fasting Glucose result greater than or equal to 126 mg/dL suggests DIABETES MELLITUS per A.D.A. criteria. Please note revised GLUCOSE reference range effective 2017. LAB L501.1000 7-18 mg/dL High BUN 23 LAB L501.1100 0.55-1.02 mg/dL High CREAT,SERUM 1.26 Result Comment: The validity of the calculated GFR AND GFRAA in patients over 70 years has not been determined. Clinical correlation is essential. LAB L501.1110 >60 mL/min Low EST GFR 43 Result Comment: Non- GFR Calc LAB L501.1115 >60 mL/min Low EST GFR - AA 53 Result Comment: GFR Calc LAB L501.1255 ml/min Normal Estimated CRCL 28.16 LAB L501.1300 10-20 RATIO Normal BUN/CRE 18.3 LAB L501.2200 8.5-10 mg/dL Normal .1 CA 9.0 LAB L501.5300 136-14 mmol/L Normal 5 NA 140 LAB L501.5600 3.5-5. mmol/L Normal 1 K 4.8 LAB L501.5900 98-107 mmol/L Normal CL 104 LAB L501.6100 21.0-3 mmol/L Normal 2.0 CO2 26.0 LAB L501.6200 5-15 Normal GAP 10 Performed By: #### L500.2500, L500.4100 #### [facility] [address] [facility]. [place], [place], [address] LIPID PROFILE Collected: 03/10/2018 Status: F Source: [place] 4:15 AM [facility] REPOSITORY TYPE CODE TESTS RESULT OUT OF RANGE REFERENCE UNITS LAB L501.4900 200 mg/dL Normal CHOL 116 Result Comment: <200 mg/dL Desirable 200-240 mg/dL Borderline >240 mg/dL High Risk LAB L501.5000 mg/dL Normal TRIG 171 Result Comment: The drugs N-Acetylcysteine and Metamizole may falsely depress this assay. Serum Triglycerides Reference Interval Normal <150 mg/dL Borderline high 150 - 199 mg/dL High 200 - 499 mg/dL Very High > or = 500 mg/dL LAB L501.6400 mg/dL Low HDL 36 Result Comment: The drugs N-Acetylcysteine and Metamizole may falsely depress this assay. Reference Range HDL <40 mg/dL Low HDL Cholesterol HDL >or= 60 mg/dL High HDL Cholesterol LAB L501.6500 0-130 mg/dL Normal LDL 46 LAB L501.6600 5-40 mg/dL Normal VLDL 34 Performed By: #### L500.2500, L500.4100 #### [facility] [address] [place], [address] PROTHROMBIN TIME W/INR Collected: 03/10/2018 Status: F Source: [place] 4:15 AM [facility] REPOSITORY TYPE CODE TESTS RESULT OUT OF RANGE REFERENCE UNITS LAB L300.4150 11.7-14.9 SECONDS Normal PROTIME 13.8 LAB L300.4200 Normal INR 1.1 Performed By: #### L300.3900, L300.4310 #### [facility] [address] [place], [address] PARTIAL THROMBOPLAST Collected: 03/10/2018 Status: F Source: [place] TIME 4:15 AM [facility] REPOSITORY TYPE CODE TESTS RESULT OUT OF RANGE REFERENCE UNITS LAB L300.4310 24.1-36.2 Seconds Normal PTT 31.2 Performed By: #### L300.3900, L300.4310 #### [facility] [address] [place], [address] Observed: 03/09/2018 Status: F Source: [place] CULTURE, URINE 11:15 PM [facility] REPOSITORY Urine Culture ORGANISM 1: Streptococcus agalactiae (B) Assaria Count >100,000 ORGANISM 2: Presumptive E. coli Assaria Count 1000-10,000 ORGANISM 3: Staphylococcus aureus Assaria Count <1000 ORGANISM 4: Mixed Gram Pos AND Gram Neg Org Assaria Count >100,000 MIX CULTURE Mixed contaminants. Submit a new specimen if indicated. Performed By: #### M100.0650 #### [facility] [address] [place], [address] TROPONIN-I Collected: 03/09/2018 Status: F Source: [place] 7:56 PM [facility] REPOSITORY Order Comment: 'TROP' Serial specimen #1, #2 or #3: 3 TYPE CODE TESTS RESULT OUT OF RANGE REFERENCE UNITS LAB L501.4010 <0.045 ng/mL Normal < 0.015 TROPONIN-I Result Comment: TROPONIN-I EXPECTED VALUES <0.045 Negative 0.045 - 0.590 Consistent with Cardiac Damage > OR = 0.600 Critical Value Not every elevated troponin is indicative of IA. These values should be used with clinical judgement in examining the patient's clinical picture for diagnosis. To establish a diagnosis of IA versus myocardial injury, there must be a demonstrated rise and/or fall in the troponin values, in addition to ischemic symptoms, EKG changes, new regional wall motion abnormality, and/or angiographical evidence. PLEASE NOTE: REFERENCE RANGES EDITED 17 Performed By: #### L501.4010 #### [facility] [address] [place] [address], [address] CONSULTATION Observed: 03/09/2018 Status: F Source: [place] 5:43 PM [facility] REPOSITORY [facility] Medical Records Department [address] [place] [address] Consultation 03/09/18 1732 MR#: [id number] Acct: [id number] Name: PRECIOUS LEIGH Rep #: [id number] : 1935 82 From: Luis Alberto Bailey MD PCP: Boyd Casiano MD Status: ADM IN Y Location: [place] [address] Problem List (1) Angina pectoris Status: Acute (2) CAD (coronary artery disease) Status: Acute (3) S/P coronary artery stent placement Status: Chronic Comment: Previous LEANDER to proxiimal to mid LAD 3.0 X 32 mm Taxus 02/23/[address] Daquan Meyer [facility]: LEANDER to mid RCA 2.5 X 24 [facility] [facility] Valvular heart disease Status: Chronic (5) Hyperlipidemia Status: Chronic Qualifiers: Hyperlipidemia type: pure hypercholesterolemia Qualified Code(s): E78.00 - Pure hypercholesterolemia, unspecified; E78.0 - Pure hypercholesterolemia (6) HTN (hypertension), benign Status: Chronic Reason for Consult Date of Consultation: 03/09/18 History of Present Illness: The patient is a 82 year old white female with a past cardiovascular history which is included CAD, PCI, valvular heart disease with MR/TR and aortic valve stenosis, hyperlipidemia, hypertension who was referred for symptoms concerning for recurrent angina pectoris. She notes that recently she has noted at rest episodes of jaw discomfort. She also noted today resting chest discomfort/pressure. She has also had recurrent gastrointestinal discomfort which in the past has raised questions as being cardiovascular related. She denies any progressive shortness of breath or dyspnea, orthopnea, PND, or worsening peripheral pitting edema. There has been no near syncope or syncope. Based upon her ongoing issues she presented to the emergency department for further evaluation. Her troponin I level was negative. Her ECG demonstrated sinus rhythm with consideration for voltage criteria for LVH with no acute ECG changes. She was subsequently placed in the PCU for further evaluation care. She notes overall she feels better at this time. She does note at home her blood pressure has been under good control. However during her emergency department evaluation and admission to the PCU she is noted to be hypertensive. [] Past Medical History Allergies/Adverse Reactions: Allergies Iodinated Contrast- Oral and IV Dye Allergy (Intermediate, Verified 02/03/18 10:36) Rash ramipril [From Altace] Adverse Reaction (Severe, Verified 02/03/18 10:36) cough Home Medications: Ambulatory Orders Medication Instructions Recorded atorvastatin 10 mg tablet 10 mg PO DAILY 90 Days 06/10/17 levothyroxine 88 mcg tablet 88 mcg PO DAILY 90 Days 06/10/17 Past Medical History (Chronic Problems): Chronic Problems (Last Updated 02/03/18 @ 10:37 by Johanna Winter) Valvular heart disease (Chronic) Hypothyroidism (Chronic) Aortic insufficiency (Chronic) Hyperlipidemia (Chronic) HTN (hypertension), benign (Chronic) S/P coronary artery stent placement (Chronic 2003) Previous LEANDER to proxiimal to mid LAD 3.0 X 32 mm Taxus 02/23/[address] Daquan Meyer, [facility]: LEANDER to mid RCA 2.5 X 24 mm Synergy 01/19/[address] Steiner,[facility] Surgical History: angioplasty, cholecystectomy, - - Cardiac stents in 2003. 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 - *Family History Maternal Family History: Family History (Last Updated 02/03/18 @ 10:38 by Johanna Winter) Mother Myocardial infarction Father Colon cancer History Items: Heart Disease - [place] Paternal Family History: Family History (Last Updated 02/03/18 @ 10:38 by Johanna Winter) Mother Myocardial infarction Father Colon cancer History Items: Cancer - colon Lives: Spouse/ Significant Other Smoking Status: Never smoker Tobacco Use: Non-smoker Alcohol: None Drugs: None Review of Systems - Review of Systems General: Denies: Fever, Night Sweats, Fatigue Cardiovascular: Reports: Chest Discomfort, Chest Discomfort at Rest. Denies: Shortness of Breath, Orthopnea, PND, Peripheral Edema, Palpitations, Lightheadedness, Dizziness, Near Syncope, Syncope Respiratory: Denies: Cough, Sputum Production, Hemoptysis Gastrointestinal: Reports: Abdominal Discomfort. Denies: Hematemesis, Hematochezia, Melena Genitourinary: Denies: Dysuria, Hematuria Skin: Denies: Rash Subjectve: This is an 82-year-old white female who appears to be resting comfortably at the moment in no acute distress. Objective: Vital Signs Temp Pulse Resp BP Pulse Ox 98.3 F 56 L 16 189/64 H 98 03/09/18 16:27 03/09/18 16:27 03/09/18 16:27 03/09/18 16:27 03/09/18 16:27 Oxygen Delivery Method Room Air Weight: 171 lb 3.2 oz Body Mass Index (BMI) 31.3 General: Awake, Alert, Oriented x 3, Cooperative, No Acute Distress, Ill Appearing HEENT: Atraumatic, Normocephalic, PERRL, EOMI, Sclera Non Icteric Oral: Moist Mucosa Neck: Supple, Good ROM, No JVD Lungs: Clear to auscultation Cardiovascular: Regular Rhythm, Normal S1, Normal S2 Vascular: No Carotid Bruits Abdomen: Bowel Sounds Present, Soft, Non Tender Extremities: No Cyanosis, No Clubbing, No edema Neurological: No Focal Motor or Sensory Deficit Psych/Mental Status: Appropriate, Normal Affect Rhythm: Sinus rhythm EKG: As noted above ECHO: 11/18/2014: Left ventricular systolic function normal; LVEF 65%; mild to moderate MR; mild TR; mild aortic valve stenosis with mild aortic valve insufficiency Stress Test: 01/17/2018: Pharmacologic stress nuclear imaging study: Compatible with findings concerning for an area of stress-induced myocardial ischemia- mid inferior segments-with a gated LVEF of 79% Cardiac Cath: 01/19/2018: Left ventricle normal with an LVEF of 60%; left main normal; LAD stented and patent; LCx with proximal to mid mild calcification with eccentric hazy 75% stenosis and eccentric 50% stenosis respectively; RCA with a proximal previous stent patent and a mid 90% stenosis in a distal diffuse eccentric 25% stenosis: Of note no hemodynamically significant gradient on LV pullback procedure appearing compatible with hemodynamically significant aortic valve stenosis PCI: 01/19/2018: PTCA/LEANDER of the mid RCA with a 2.5 x 24 Promus Synergy stent CXR: Cardiopulmonary disease process Assessment/Plan 1. Angina pectoris Patient presents with findings concerning for unstable angina pectoris. At the present time her cardiac enzymes are negative. Her ECG demonstrates no new acute changes. He was thought based upon her previous diagnosis, recent noninvasive and invasive evaluation and therapeutic intervention with RCA PCI, that she undergo repeat evaluation in the cardiac catheterization laboratory to evaluate for obvious in-stent restenosis or progression of her [place] vessel disease, including her LCx disease, requiring additional catheter based revascularization therapy. The procedure and risks were discussed with her and she was agreeable to this approach. In the interim she will continue medical management. 2. Valvular heart disease She does have a history of underlying valvular heart disease. In the past based upon her noninvasive and invasive studies it is not thought to be hemodynamically significant requiring further diagnostic studies or therapeutic intervention. This can be reassessed as deemed appropriate. 3. Hyperlipidemia She will continue risk factor evaluation and care. 4. Hypertension Her blood pressures appear to be elevated at this time. Her medications will be adjusted in attempt to bring her systolic blood pressure under better control. This note was generated with Sensegonation software. It may contain incorrect words, spelling, and punctuation that were not noted in checking the note before signing. 03/09/18 1743 <Electronically signed by Luis Alberto Bailey MD> Date Luis Alberto Bailey MD Cosigner Signature (if applicable): Date CC: Ang Lauar MD; Remy Turner DO; Boyd Casiano MD Signed HISTORY AND PHYSICAL Observed: 03/09/2018 Status: F Source: [place] EXAM 5:04 PM [facility] REPOSITORY [facility] Medical Records Department [address] [place] [address] History and Physical 03/09/18 1540 MR#: [id number] Acct: [id number] Name: PRECIOUS LEIGH Rep #: [id number] : 1935 82 From: Shreya Mckoy MD PCP: Boyd Casiano MD Status: ADM IN Location: [place] [address] ADDENDUM by Shreya Mckoy MD on 03/09/18 at 1704 Code Visit Procedures: 09842 Advncd Care Plan 30 Min 03/09/18 1704 <Electronically signed by Shreya Mckoy MD> Date Shreya Mckoy MD cc: Shreya Mckoy MD; Boyd Casiano MD * Signed Problem List (1) Chest pain Status: Acute Qualifiers: Chest pain type: unspecified Qualified Code(s): R07.9 - Chest pain, unspecified History of Present Illness Date of Admission: 03/09/18 Chief Complaint: Chest pain - 1 day The patient is a 82 year old F with PMHx of CAD s/p stent to LAD, cardiac cath in January 2018, status post stent to RCA, mid left circumflex stenosis of 50%, hypertension, upper lipidemia, hypothyroidism who comes in with a 2-day history of chest pain. Patient was in her usual state of health, has had some shortness of breath with use of Brilinta that went away with switch to Plavix. She has been in cardiac rehab. She had followed up post stent with cardiology team. She was in her usual state of health until yesterday in the afternoon when she had left-sided chest pressure which radiated to her jaw, persisted for 3- 4 hours, no associated dizziness or diaphoresis or radiation to the left upper extremity. Chest pain was worse with ambulation, relieved with rest. She went to bed without complaints and woke up this morning and started doing her usual house chores, when she started complaining of left-sided chest discomfort that radiated to her jaw. She denied again dizziness or palpitations but feels slightly nauseous on the way to the hospital. Vitals in the ED showed temperature of 98.2F, heart rate 60, blood pressure 118/52, respiratory rate was 14, SPO2 is 99% on room air WBC of 8.0, Hb 12.2, platelet count of 237, sodium 138, 4.4, chloride 102, bicarbonate 30, BUN 19, creatinine 1.13, is at baseline, initial troponin 0.015. EKG has been unremarkable. Chest x-ray shows no acute abnormality. Past Medical History Past Medical History (Chronic Problems): Chronic Problems (Last Updated 02/03/18 @ 10:37 by Johanna Winter) Atherosclerotic heart disease of [place] coronary artery without angina pectoris (Chronic) Previous LEANDER to proxiimal to mid LAD 3.0 X 32 mm Taxus 02/23/[address] Daquan Meyer, [facility]: LEANDER to mid RCA 2.5 X 24 mm Synergy 01/19/[address] Steiner,[facility] Valvular heart disease (Chronic) Hypothyroidism (Chronic) Aortic insufficiency (Chronic) Hyperlipidemia (Chronic) HTN (hypertension), benign (Chronic) S/P coronary artery stent placement (Chronic 2003) Previous LEANDER to proxiimal to mid LAD 3.0 X 32 mm Taxus 02/23/[address] Daquan Meyer, [facility]: LEANDER to mid RCA 2.5 X 24 mm Synergy 01/19/[address] Steiner,[facility] Medical History: Medical History (Last Updated 01/19/18 @ 10:07 by Julia Hagan) Atherosclerotic heart disease of [place] coronary artery without angina pectoris (Chronic) I25.10 Previous LEANDER to proxiimal to mid LAD 3.0 X 32 mm Taxus 02/23/[address] Daquan Meyer, [facility]: LEANDER to mid RCA 2.5 X 24 mm Synergy 01/19/[address] Steiner,[facility] Aortic insufficiency (Chronic) I35.1 Hyperlipidemia (Chronic) E78.5 HTN (hypertension), benign (Chronic) I10 Allergies Iodinated Contrast- Oral and IV Dye Allergy (Intermediate, Verified 02/03/18 10:36) Rash ramipril [From Altace] Adverse Reaction (Severe, Verified 02/03/18 10:36) cough Home Medications: Ambulatory Orders Medication Instructions Recorded atorvastatin 10 mg tablet 10 mg PO DAILY 90 Days 06/10/17 levothyroxine 88 mcg tablet 88 mcg PO DAILY 90 Days 06/10/17 Surgical History: Surgical History (Last Updated 02/03/18 @ 10:37 by Johanna Winter) S/P coronary artery stent placement (Chronic) Onset Date: 2003 Z95.5 Previous LEANDER to proxiimal to mid LAD 3.0 X 32 mm Taxus 02/23/[address] Daquan Meyer, [facility]: LEANDER to mid RCA 2.5 X 24 mm Synergy 01/19/[address] Steiner,[facility] History of cholecystectomy Z90.49 Surgical History: angioplasty, cholecystectomy, - - Cardiac stents in 2003. 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 Lives: Spouse/ Significant Other Smoking Status: Never smoker Tobacco Use: Non-smoker Alcohol: None Drugs: None - *Family History Maternal Family History: Family History (Last Updated 02/03/18 @ 10:38 by Johanna Winter) Mother Myocardial infarction Father Colon cancer History Items: Heart Disease - IA Paternal Family History: Family History (Last Updated 02/03/18 @ 10:38 by Johanna Winter) Mother Myocardial infarction Father Colon cancer History Items: Cancer - colon Review of Systems Constitutional: Denies: Anorexia, Chills, Fever, Malaise, Weakness, Weight Change Eyes: Denies: Blurred vision, Cataracts, Conjunctivae Inflammation, Pain, Redness, Vision Change HEENT: Denies: Difficulty Hearing, Difficulty Swallowing, Head Aches, Hearing Changes, Sinus Congestion, Sinus Drainage, Sore Throat Cardiovascular: Reports: Chest Pain, Chest Pressure. Denies: Light Headedness, Orthopnea, Palpitations, Paroxysmal Noc. Dyspnea Respiratory: Reports: Shortness of breath upon exertion. Denies: Cough, Hemoptysis, Shortness of breath at rest, Sputum production Gastrointestinal: Reports: Nausea. Denies: Abdominal Pain, Constipation, Diarrhea, Hematemesis, Hematochezia, Melena, Vomiting Genitourinary: Denies: Dysuria, Frequency, Incontinence Musculoskeletal: Denies: Joint Pain, Joint stiffness, Joint swelling, Joint Tenderness Skin: Denies: Rash, Wounds Neurological: Denies: Numbness, Tingling, Focal weakness Psychiatric: Denies: Anxiety, Depression, Homicidal Ideations, Suicidal Ideations Hematologic/ Lymphatic: Denies: Easy Bruising, Easy Bleeding VTE Information - Inpt Only VTE Present on Admission: No VTE Pharm Prophylaxis ordered?: Yes Patient Problems: Active and Suspected Problems (Last Updated 01/19/18 @ 10:07 by Julia Hagan) Chest pain (Acute) - Physical Exam General: Alert, Oriented x3, Cooperative, No apparent distress HEENT: Atraumatic, PERRLA, EOMI, Normocephalic Neck: Supple, No JVD, Negative Carotid Bruits Lungs: Clear to auscultation, Normal air movement Cardiovascular: Regular rate, Regular Rhythm, Normal S1, Normal S2, No murmurs Abdomen: Bowel Sounds Present, Soft, Non Tender, Non-Distended, No Hepato-splenomegaly Extremities: No edema Skin: No rashes, No breakdown Musculoskeletal: No Tenderness to Palpation of Joints or Extremities Lymphatic: No Cervical, Supraclavicular, or Inguinal Adenopathy Neurological: Cranial nerves II-XII grossly intact, Neuro grossly intact Psych/Mental Status: Normal Affect, Appropriate Vital Signs Temp Pulse Resp BP Pulse Ox 98.2 F 53 L 18 174/53 H 94 03/09/18 13:33 03/09/18 14:38 03/09/18 14:38 03/09/18 14:38 03/09/18 14:38 Oxygen Delivery Method Room Air Weight: 77.111 kg Body Mass Index (BMI) 33.2 Laboratory Tests Past 24 Hrs WBC 8.0 RBC 3.96 L Hgb 12.2 Hct 36.9 L MCV 93.2 MCH 30.8 MCHC 33.1 RDW 13.8 RDW Differential 47.2 H Assessment/Plan All Active Problems (Last Updated 01/19/18 @ 10:07 by Julia Hagan) Chest pain (Acute) Angina pectoris (Acute) 82 year old F with PMHx of CAD s/p stent to LAD(2003), s/p cardiac cath in January 2018, status post stent to RCA, residual mid left circumflex stenosis of 50%, hypertension, Hyperlipidemia, hypothyroidism who comes in with a 2-day history of chest pain. 1. Chest pain, concerning for unstable angina, in a patient with recent stent to RCA, residual left circumflex artery stenosis Plan: Will admit to PCU, monitor on telemetry, trend cardiac enzymes, continue on aspirin, Plavix, skylar, ARB, Cardiology consulted-Dr. Bailey, Will start on Lovenox 1 mg/g/kg x1, repeat cardiac cath planned for the morning. 2. Hypertension, uncontrolled, likely related to anxiety, will continue on home medications, will add as needed labetalol 3. Hypothyroidism, continue on synthroid 4. Hyperlipidemia, on statin, repeat lipid profile in am 5. DVT PPx- Lovenox therapeutic dose 6. Code status: Patient in consultation with her wants full code. They have a living will but that was done years ago. They are each their own power of clay caster for health care. I spent time explaining the differences between full code, DNR CCA, DNR CC to them. She initially preferred no intubation but later patient stated that in the event that her heart should stop, she want CPR and intubation done and for the to decide on if she should still be kept on machines for longer or not. Time spent discussing CODE STATUS was 18 minutes. Code Visit Inpatient E AND M: 57436 Init Hosp L3 OBSV E AND M: 88528 Initial observation care L3 03/09/18 1645 <Electronically signed by Shreya Mckoy MD> Date Shreya Mckoy MD Cosigner Signature: Date (if applicable) CC: Shreya Mckoy MD; Boyd Casiano MD Signed EMERGENCY DEPARTMENT Observed: 03/09/2018 Status: F Source: [place] SUMMARY 4:20 PM [facility] REPOSITORY [facility] Medical Records Department [address] [place] [address] Emergency Department Summary 03/09/18 1531 MR#: [id number] Acct: [id number] Name: PRECIOUS LEIGH Rep #: [id number] : 1935 82 From: Marian Deutsch MD PCP: Boyd Casiano MD Status: ADM IN - ER Visit Summary Date of Service: 03/09/18 Chief Complaint: Chest pain History of Present Illness: The patient is a 82 F with history of coronary disease and prior cardiac stenting. Patient is currently on aspirin and Plavix. Patient reports some jaw tightness yesterday followed by pressure in her jaw and chest started around 1030 this morning. She denies shortness of breath or diaphoresis. She had a stent placed 4-6 weeks ago and states she had similar symptoms at that time. She believes that there was another lesion found on the heart cath that they were going to watch and this obviously concerns her. Physical Examination: Blood pressure arrival is 189/52, temperature 98.2, heart rate 60, respiratory rate 14, pulse ox 99% on room air. Patient sitting upright in bed no acute distress. She complains of mild pain to the jaw and left upper chest. Head neck examination is otherwise unremarkable. Heart is regular rate and rhythm. Lung sounds are clear. Chest wall is nontender. Abdomen is soft nontender. Lower external examination was no significant calf tenderness or edema. Test Results: Portable chest x-ray shows no acute abnormality. EKG is sinus at 61 with no sign of acute ischemia. CBC and chemistry studies reveal BUN of 19 and creatinine 1.13. Glucose is 130. Troponin is less than 0.015. Emergency Department Course and Treatment: Patient had taken 1 baby aspirin this morning to 3 additional baby aspirin were given. On repeat evaluation she reports very minimal pressure in her jaw. The pressure in her chest is resolved. I did review her heart cath from January 19. She had a 90% stenosis in the mid RCA that was stented. She also had a 50% stenosis noted in the mid circumflex. Patient was discussed with her sack sewer, Dr. Bailey. He asked that the patient be admitted and ruled out with serial cardiac enzymes tonight. We will plan to keep her n.p.o. after midnight and go back to the Electrical Foreman tomorrow to ensure the new stent to the RCA is open and consider intervening on the lesion in the circumflex. This was discussed with the patient and she is in agreement. Treatment Plan: [] Disposition: Admit Impression: Chest pain This note was generated with Fieldwire dictation software. It may contain incorrect words, spelling, and punctuation that were not noted in review of the chart prior to signing ED Disposition - Plan for ED Patient: Chief Complaint: Chest Pain Referrals: Boyd Casiano MD [Primary Care Provider] - What to do if you have Problems For any increased pain, shortness of breath, bleeding, nausea or vomiting, chest pain, or any unexpected problems, contact your Primary Care Provider. Call [facility] ([phone]) or report to the closest Emergency Room. Call 911 if necessary. 03/09/18 1620 <Electronically signed by Marian Deutsch MD> Date Marian Deutsch MD Cosigner Signature (If Indicated): Date CC: Boyd Casiano MD CBC W/DIFF, AUTOMATED Collected: 03/09/2018 Status: F Source: [place] 1:50 PM [facility] REPOSITORY TYPE CODE TESTS RESULT OUT OF RANGE REFERENCE UNITS LAB L100.1000 4.4-11.0 K/mm3 Normal WBC 8.0 LAB L100.1200 4.2-5.4 M/mm3 Low RBC 3.96 LAB L100.1300 12.0-15.0 g/dl Normal HGB 12.2 LAB L100.1400 37-47 % Low HCT 36.9 LAB L100.1500 81-99 fL Normal MCV 93.2 LAB L100.1600 27.0-32.0 pg Normal MCH 30.8 LAB L100.1700 32-36 g/gl Normal MCHC 33.1 LAB L100.1810 11.6-14.6 % Normal RDW CV 13.8 LAB L100.1820 35.1-43.9 fl High RDW SD 47.2 LAB L100.1900 150-450 K/mm3 Normal PLT 237 LAB L100.2000 6.2-12.0 fl Normal MPV 9.6 LAB L100.2100 47-70 % High NEUT% 70.7 LAB L100.2200 19-41 % Low LY% 17.9 LAB L100.2300 0-10 % Normal MONO% 9.1 LAB L100.2400 0-5 % Normal EO% 1.9 LAB L100.2500 0-1 % Normal BASO% 0.4 LAB L100.2550 0.0-0.9 % Normal IM GRAN % 0.000 Result Comment: IG% - Immature Granulocytes (promyelocytes, myelocytes and metamyelocytes) > 1% indicates that a LEFT SHIFT is Present. LAB L100.2620 2.0-7.7 X10 3/uL Normal Absolute Neut 5.7 LAB L100.2720 0.83-4.51 X10 3/ul Normal Absolute Lymph 1.43 Performed By: #### L100.0100 #### [facility] [address] [place] [address]. [place], [address] BASIC METABOLIC Collected: 03/09/2018 Status: F Source: [place] PROFILE (BMP) 1:50 PM [facility] REPOSITORY TYPE CODE TESTS RESULT OUT OF RANGE REFERENCE UNITS LAB L501.0100 74-106 mg/dL High GLU 130 Result Comment: Fasting Glucose result greater than or equal to 126 mg/dL suggests DIABETES MELLITUS per A.D.A. criteria. Please note revised GLUCOSE reference range effective 2017. LAB L501.1000 7-18 mg/dL High BUN 19 LAB L501.1100 0.55-1.02 mg/dL High CREAT,SERUM 1.13 Result Comment: The validity of the calculated GFR AND GFRAA in patients over 70 years has not been determined. Clinical correlation is essential. LAB L501.1110 >60 mL/min Low EST GFR 49 Result Comment: Non- GFR Calc LAB L501.1115 >60 mL/min Normal EST GFR - AA 60 Result Comment: GFR Calc LAB L501.1255 ml/min Normal Estimated CRCL 28.52 LAB L501.1300 10-20 RATIO Normal BUN/CRE 16.8 LAB L501.2200 8.5-10 mg/dL Normal .1 CA 9.3 LAB L501.5300 136-14 mmol/L Normal 5 NA 138 LAB L501.5600 3.5-5. mmol/L Normal 1 K 4.4 LAB L501.5900 98-107 mmol/L Normal CL 102 LAB L501.6100 21.0-3 mmol/L Normal 2.0 CO2 30.0 LAB L501.6200 5-15 Normal GAP 6 Performed By: #### L500.2500, L501.4010 #### [facility] [address] [facility]. [place], [place], [address] TROPONIN-I Collected: 03/09/2018 Status: F Source: [place] 1:50 PM [facility] REPOSITORY TYPE CODE TESTS RESULT OUT OF RANGE REFERENCE UNITS LAB L501.4010 <0.045 ng/mL Normal < 0.015 TROPONIN-I Result Comment: TROPONIN-I EXPECTED VALUES <0.045 Negative 0.045 - 0.590 Consistent with Cardiac Damage > OR = 0.600 Critical Value Not every elevated troponin is indicative of IA. These values should be used with clinical judgement in examining the patient's clinical picture for diagnosis. To establish a diagnosis of IA versus myocardial injury, there must be a demonstrated rise and/or fall in the troponin values, in addition to ischemic symptoms, EKG changes, new regional wall motion abnormality, and/or angiographical evidence. PLEASE NOTE: REFERENCE RANGES EDITED 17 Performed By: #### L500.2500, L501.4010 #### [facility] [address] [place], [place], [address] CHEST 1 VIEW Observed: 03/09/2018 Status: F Source: [place] (PORTABLE) 1:45 PM [facility] REPOSITORY [facility] Imaging Services [address] [place] [address] Chest 1 View (Portable) MR#: [id number] Acct: [id number] Name: PRECIOUS LEIGH Rep #: [id number] : 1935 F 82 From: Cristiano Stout MD PCP: Boyd Casiano MD Status: REG ER Study: Chest 1 View (Portable) Date of Exam: 03/09/18 Exam# [id number] Ordering Dr: Marian Deutsch MD STUDY: X-RAY CHEST REASON FOR EXAM: Female, 82 years old. Chest pain. Recent cardiac stent placement. TECHNIQUE: Single AP portable view of the chest. COMPARISON: Comparison is made with prior examination January 16, 2018. FINDINGS: EKG electrodes are seen. The lungs are clear and expanded. Scattered calcified granulomas. There is no demonstrated pleural abnormality. Normal size heart. Normal mediastinum and to. Normal visualized pulmonary arteries. There is atherosclerotic calcification of the aortic arch with tortuosity. There are diffuse degenerative changes of the visualized thoracic spine. Normal visualized ribs, clavicles, and shoulders. There is no demonstrated abnormality of the visualized soft tissue structures of the upper abdomen. RAD/Chest 1 View (Portable) IMPRESSION: No acute abnormality is seen. Electronically Signed: Cristiano Stout MD at 14:26 EDT Tel [phone], Service support , CC: Marian Deutsch MD; Boyd Casiano MD Tawer: Signed CR - HISTORY AND Observed: 02/10/2018 Status: F Source: [place] PHYSICAL 8:25 AM [facility] REPOSITORY [facility] Cardiac Rehab [address] [place] [address] CR - History AND Physical MR#: [id number] Acct: [id number] Name: PRECIOUS LEIGH Rep #: [id number] : 1935 82 From: Von Moore PLASTIC BLOCK BOILER RELINER, DENTAL SURGERY DOCTOR, BS PCP: Boyd Casiano MD DOS: 02/10/18 CR - History AND Physical - General Arrival date:: 02/10/18 Arrival time:: 07:55 Date of Referral:: 01/19/18 Date of CR Evaluation:: 02/10/18 Referring Physician: Cassy Primary Diagnosis: PTCA - History of Present Cardiac Event Onset Date: Enter Onset Date of cardiac illnesses in Comment field below PTCA or coronary stenting:: Yes - 01/19/2018; previous stents in 2003. Type of Symptoms:: upper gastric discomfort routinely, then later started having intermittent jaw pain. While shopping at local [employer] felt at times was going to pass out. Interventions with present event:: Called Dr. stanley had stress test, then cath/ptca Were there any complications?: shortness of breath; going to finish brilinta change to plavix - Medications Home Medications: Ambulatory Orders Medication Instructions Recorded atorvastatin 10 mg tablet 10 mg PO DAILY 90 Days 06/10/17 levothyroxine 88 mcg tablet 88 mcg PO DAILY 90 Days 06/10/17 nitroglycerin 0.4 mg sublingual 0.4 mg SUBLINGUAL Q5-15M PRN 10 06/10/17 - Allergies Allergies/Adverse Reactions: Allergies Iodinated Contrast- Oral and IV Dye Allergy (Intermediate, Verified 02/03/18 10:36) Rash ramipril [From Altace] Adverse Reaction (Severe, Verified 02/03/18 10:36) cough - Sleep Disorder Evaluation Hx of Sleep Apnea: No Do you snore loudly (louder than talking or can be heard through closed doors)?: Yes - claims she does/ sleeps in recliner occasionally. Do you often feel tired/ fatigued/ sleepy during daytime?: Yes - routinely takes afternoon naps. Has anyone observed you stop breathing during sleep?: No History of Hypertension (for STOP score): Yes STOP Results: Positive Advanced Directives - Advanced Directives Power of Sales Agent Food Vending Service: Yes - Oldest son is legal POA Healthcare Living Will: Yes Advance Directives Information Provided: No Advance Directives on File: No - Recommended getting them filed. DNR Order?:: No - MOLST See MOLST form: No Past Medical History - Past Medical Illness Medical History: Past Medical History (Last Updated 01/19/18 @ 10:07 by Julia Hagan) Atherosclerotic heart disease of [place] coronary artery without angina pectoris (Chronic) I25.10 Previous LEANDER to proxiimal to mid LAD 3.0 X 32 mm Taxus 02/23/[address] Daquan Meyer, [facility]: LEANDER to mid RCA 2.5 X 24 mm Synergy 01/19/[address] Steiner,[facility] Aortic insufficiency (Chronic) I35.1 Hyperlipidemia (Chronic) E78.5 HTN (hypertension), benign (Chronic) I10 - Past Surgical History Surgical History: Past Surgical History (Last Updated 02/03/18 @ 10:37 by Johanna Winter) S/P coronary artery stent placement (Chronic) Onset Date: 2003 Z95.5 Previous LEANDER to proxiimal to mid LAD 3.0 X 32 mm Taxus 02/23/[address] Daquan Meyer, [facility]: LEANDER to mid RCA 2.5 X 24 mm Synergy 01/19/[address] Steiner,[facility] History of cholecystectomy Z90.49 Surgical History: angioplasty, cholecystectomy, - - Cardiac stents in 2003. - Family History Summary Family History: Family History (Last Updated 02/03/18 @ 10:38 by Johanna Winter) Mother , Age 63 Myocardial infarction Father , Age 28 Colon cancer Social History - Smoking History Smoking Status: Never smoker Hx Tobacco Use: No Hx Smoking Exposure: No - Alcohol Use Alcohol Usage: No - Substance Abuse Hx Substance Use: No - Occupation Occupation (List type of work in comments):: Retired - Hobbies, Recreation, Social Activities Hobbies: Other - cards, bridge club, travel, auctions. Recreational Activities: I am able to engage in all my recreational activities, I am able to engage in most, but not all activities Social Environment - Status Marital Status: - Current Living Arrangements Living Environment:: Spouse - Children How many children do you have?: 4 - 4 grown children Do any of your children live nearby?: Yes - local, next door, [facility]. - Safety Do you feel safe in your surroundings?: Yes - Assistance Do you need any assistance at home?: none Review of Systems - Review of Systems Hints: Right click = Denies (Slash). Left click = Reports ([place]) Review of Present Symptoms: Reports: Shortness of Breath with Exertion - more since started Brilinta; Dr. Bailey is changing her to plavix after she finishes her 30 day supply of Brilinta., Fatigue, Appetite - Normal, Appetite - Special Diet - 1800 caloris low fat, no added salt, watch red meats, Sleep - Normal - 6-8 hours sleep nightly. 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 She previously had similar symptoms in 2004 and had 3 stents placed then. - Vital Signs Temperature: 98.7 F Respiratory Rate: 16 Pulse Ox: 95 - room air Blood Pressure: 122/68 Nailbeds:: pink - Pulse Pulse Rate: 60 Pulse Rhythm: Regular - Hypertension How long have you been treated?: 2004 On medication(s)?: yes Blood Pressure Sitting - Left Arm: 122/68 - Obesity Height: 4 ft 11.8 in Weight:: 171 lb Weight in Pounds: 171.0 lbs Weight Source: Standing Scale Body Mass Index (BMI): 33.6 Nutritional Referral for Obesity: Yes - Patient could benefit from structured weight loss and cardiac diet assistan - Physical Inactivity Physical Inactivity: None - used to walk routinely, has home treadmill she can utilize. - Risk Stratification Risk Guidelines: Lowest Risk: Risk Factor for Smoking, Risk Factor for Dyslipidemia, Risk Factor for Diabetes, Risk Factor for Hypertension, Risk Factor for Depression, Moderate Risk: Risk Factor for Sedentary Lifestyle - is active but no regular exercise., Highest Risk: Risk Factor for Obesity - For Smoking Smoking Risk Guidelines: Smoking Low Risk: None or quit greater than 6 months ago. Smoking Moderate Risk: Smoker or quit 6 months or less ago. Smoking High Risk: Smoker - For Dyslipidemia Dyslipidemia Risk Guidelines: Low Risk: Moderate Risk: High Risk: 15-25% fat 25.1-29% fat >/= 30% fat. <7% sat fat 7-9% sat fat >9% sat fat. <150 mg chol 150-299 mg chol >/= 300 mg chol. LDL <100 LDL 100-129 LDL >/= 130. Chol/HDL ratio <5.0 Chol/HDL ratio 5.0-6.0 Chol/HDL ratio >6.0. Triglycerides <100 Triglycerides 100-149 Triglycerides >/= 150 - For Diabetes Mellitus Diabetes Risk Guidelines: Diabetes Low Risk: HgA1c <6.5% and/or FBG <120. Diabetes Moderate Risk: HgA1c 6.6-7.9% and/or FBG 120- 180. Diabetes High Risk: HgA1c >/= 8% and/or FBG >180 - For Obesity/Overweight Obesity/Overweight Risk Guidelines: Obesity Low Risk: BMI <25.0. Obesity Moderate Risk: BMI 25-29.9. Obesity High Risk: BMI >/= 30.0 - For Hypertension Hypertension Risk Guidelines: Hypertension Low Risk: Systolic <120 and Diastolic <80. Hypertension Moderate Risk: Systolic 120-139 and Diastolic 80-89. Hypertension High Risk: Systolic >/= 140 and Diastolic >/= 90 - For Sedentary Lifestyle Sedentary Lifestyle Risk Guidelines: Sedentary Lifestyle Low Risk: >/= 1,500 kcal/week. Sedentary Lifestyle Moderate Risk: 700-1,499 kcal/week. Sedentary Lifestyle High Risk: < 700 kcal/week - For Depression Depression Risk Guidelines: Depression Low Risk: Not clinically depressed. Depression Moderate Risk: Mildly depressed. Depression High Risk: Clinically depressed - Family History Family History: Family History (Last Updated 02/03/18 @ 10:38 by Johanna Winter) Mother Myocardial infarction Father Colon cancer Motivation - Motivation to Participate On a scale of 1 to 10, how prepared are you to commit to attending program?: 10 What do you see as barriers to successfully being able to complete the program?: none What do you see as the benefits of succesfully completing the program? In other words, what do you hope to get out of participating in the program?: better stamina, be able to be more active. Are there issues you are dealing with that will interfere with completing the program?: none Do you have a spouse or signficant other, family or friends who will help support you to complete the program?: yes. 02/10/18 0813 <Electronically signed by Von Moore PLASTIC BLOCK BOILER RELINER, DENTAL SURGERY DOCTOR, BS> Date Von Moore PLASTIC BLOCK BOILER RELINER, DENTAL SURGERY DOCTOR, BS Outcome assessment reviewed. Exercise plan approved as documented. Treatment plan and goals support patient needs/abilities. Continue with current plan. I certify the patient demonstrates improvement and remains willing and capable of participation. the patient continues to benefit from cardiac rehab services/training. The patient may continue at current intensity, endurance and modality and progress per protocol. 02/10/18824 <Electronically signed by Luis Alberto Bailey MD> Cosigner Signature: Date Luis Alberto Bailey MD CC: Signed CBC W/DIFF, AUTOMATED Collected: 02/06/2018 Status: F Source: [place] 11:20 AM [facility] [place] REPOSITORY TYPE CODE TESTS RESULT OUT OF RANGE REFERENCE UNITS LAB L100.1000 4.4-11.0 K/mm3 Normal WBC 6.8 LAB L100.1200 4.2-5.4 M/mm3 Low RBC 3.93 LAB L100.1300 12.0-15.0 g/dl Normal HGB 12.2 LAB L100.1400 37-47 % Low HCT 36.9 LAB L100.1500 81-99 fL Normal MCV 93.9 LAB L100.1600 27.0-32.0 pg Normal MCH 31.0 LAB L100.1700 32-36 g/gl Normal MCHC 33.1 LAB L100.1810 11.6-14.6 % Normal RDW CV 13.7 LAB L100.1820 35.1-43.9 fl High RDW SD 45.7 LAB L100.1900 150-450 K/mm3 Normal PLT 271 LAB L100.2000 6.2-12.0 fl Normal MPV 10.1 LAB L100.2100 47-70 % Normal NEUT% 64.3 LAB L100.2200 19-41 % Normal LY% 22.6 LAB L100.2300 0-10 % Normal MONO% 9.8 LAB L100.2400 0-5 % Normal EO% 2.6 LAB L100.2500 0-1 % Normal BASO% 0.6 LAB L100.2550 0.0-0.9 % Normal IM GRAN % 0.100 Result Comment: IG% - Immature Granulocytes (promyelocytes, myelocytes and metamyelocytes) > 1% indicates that a LEFT SHIFT is Present. LAB L100.2620 2.0-7.7 X10 3/uL Normal Absolute Neut 4.4 LAB L100.2720 0.83-4.51 X10 3/ul Normal Absolute Lymph 1.54 Performed By: #### L100.0100 #### [facility] [address] [place], [address] HEMOGLOBIN A1C Collected: 02/06/2018 Status: F Source: [place] 11:20 AM [facility] [place] REPOSITORY TYPE CODE TESTS RESULT OUT OF RANGE REFERENCE UNITS LAB L501.9985 4.2-6.3 % Normal HGB A1C 6.3 Performed By: #### L501.9985 #### [facility] [address] [place], [address] BASIC METABOLIC Collected: 02/06/2018 Status: F Source: [place] PROFILE (BMP) 11:20 AM [facility] [place] REPOSITORY Order Comment: ADDED FREE T4 THAT WAS OVERLOOKED. Has Patient had X-rays with Contrast this admission? N Is Patient on Heparin? N TYPE CODE TESTS RESULT OUT OF RANGE REFERENCE UNITS LAB L501.0100 74-106 mg/dL High GLU 110 Result Comment: Fasting Glucose result from 100 to 125 mg/dL suggests IMPAIRED HOMEOSTASIS per A.D.A. criteria. Please note revised GLUCOSE reference range effective 2017. LAB L501.1000 7-18 mg/dL High BUN 19 LAB L501.1100 0.55-1.02 mg/dL High CREAT,SERUM 1.14 Result Comment: The validity of the calculated GFR AND GFRAA in patients over 70 years has not been determined. Clinical correlation is essential. LAB L501.1110 >60 mL/min Low EST GFR 49 Result Comment: Non- GFR Calc LAB L501.1115 >60 mL/min Low EST GFR - AA 59 Result Comment: GFR Calc LAB L501.1300 10-20 RATIO Normal BUN/CRE 16.7 LAB L501.2200 8.5-10.1 mg/dL CA Normal 9.7 LAB L501.5300 136-145 mmol/L NA Normal 140 LAB L501.5600 3.5-5.1 mmol/L K Normal 4.1 LAB L501.5900 98-107 mmol/L CL Normal 101 LAB L501.6100 21.0-32.0 mmol/L Normal CO2 29.0 LAB L501.6200 5-15 Normal GAP 10 Performed By: #### L500.2500, L501.9520, L506.0400 #### [facility] [address] [place], [address] THYROID STIM HORMONE Collected: 02/06/2018 Status: F Source: RENARD (TSH) 11:20 AM [facility] [place] REPOSITORY Order Comment: ADDED FREE T4 THAT WAS OVERLOOKED. Has Patient had X-rays with Contrast this admission? N Is Patient on Heparin? N TYPE CODE TESTS RESULT OUT OF RANGE REFERENCE UNITS LAB L501.9520 0.358-3.74 uIU/mL Normal TSH 0.73 Performed By: #### L500.2500, L501.9520, L506.0400 #### [facility] [address] [place], [address] T4 FREE DIRECT Collected: 02/06/2018 Status: F Source: RENARD 11:20 AM [facility] [place] REPOSITORY Order Comment: ADDED FREE T4 THAT WAS OVERLOOKED. Has Patient had X-rays with Contrast this admission? N Is Patient on Heparin? N TYPE CODE TESTS RESULT OUT OF RANGE REFERENCE UNITS LAB L506.0400 0.76-1.46 ng/dL Normal T4 FREE 1.05 DIRECT Performed By: #### L500.2500, L501.9520, L506.0400 #### [facility] [address] [place], [address] CARDIOLOGY VISIT Observed: 02/03/2018 Status: F Source: RENARD REPORT 4:23 PM [facility] [place] REPOSITORY [facility] [address] [place] [address] OFFICE VISIT Date of Service: 02/03/18 MR#: [id number] Acct: [id number] Name: PRECIOUS LEIGH Rep #: [id number] : 1935 Provider: GABRIELLA Villalobos Age/Sex: 82/F Location[place] [facility] [place] Status: Signed HPI HPI Details: PRECIOUS LEIGH, is a 82 F who presents to the office today for a cardiovascular follow-up. She has a history of coronary artery disease with stenting to her LAD and RCA and RCA in January 2018. She also has a history of aortic valve insufficiency, hypertension and hyperlipidemia. Pt denies chest, arm, jaw, or neck discomfort. Her exercise tolerance is stable. Pt denies symptoms of palpitations, lightheadedness, dizziness, near syncopal or syncopal episodes. Pt denies edema or claudication issues. Pt. denies orthopnea, PND, fever, chills, blood in urine, blood in stool, or myalgia. She states more SOB since intervention. Because of this, she walks slowly. She states her blood pressures have been low at home, mainly her diastolic values. She states a decrease in energy as well since intervention. Intake Vital Signs02/03/18 Height 5 ft 2 in 02/03/18 Weight: 170 lb 02/03/18 Body Mass Index (BMI) 31.1 02/03/18 Blood Pressure 148/50 02/03/18 Blood Pressure Location Lt brachial Intake Visit Reasons: S/P [facility] Department Head Required: No Accompanied by: None Is patient in pain?: No Allergies Iodinated Contrast- Oral and IV Dye Allergy (Intermediate, Verified 02/03/18 10:36) Rash ramipril [From Altace] Adverse Reaction (Severe, Verified 02/03/18 10:36) cough Medications atorvastatin 10 mg tablet 10 mg PO DAILY 90 Days 06/10/17 [History Confirmed 01/17/18] levothyroxine 88 mcg tablet 88 mcg PO DAILY 90 Days 06/10/17 [History Confirmed 01/17/18] nitroglycerin 0.4 mg sublingual tablet 0.4 mg SUBLINGUAL Q5- 15M PRN 10 Days #9750 tab 06/10/17 [History Confirmed 06/10/17] potassium chloride ER 10 mEq tablet,extended release 10 meq PO QDAY 06/17/17 [History Confirmed 01/17/18] Ascorbic Acid [Vitamin C] 500 mg PO DAILY 01/16/18 [History Confirmed 01/16/18] Calcium Citrate 600 mg PO DAILY 01/16/18 [History Confirmed 01/16/18] Co Q-10 100 mg PO DAILY 01/16/18 [History Confirmed 01/16/18] Fish Oil 01/16/18 [History] Folic Acid 400 mcg PO DAILY@0800 01/16/18 [History Confirmed 01/16/18] Metoprolol Succinate [Toprol Xl] 50 mg PO QDAY 01/16/18 [History Confirmed 01/16/18] Multivitamin [Daily Multiple Vitamin] 1 ea PO DAILY 01/16/18 [History Confirmed 01/16/18] Triamterene/Hydrochlorothiazid [Dyazide 37.5-25 Capsule] 1 cap PO QDAY 01/16/18 [History Confirmed 01/16/18] Aspirin E.C. [Ecotrin] 81 mg PO DAILY@0800 tab 01/20/18 [Rx] Nitroglycerin [Nitrostat] 0.4 mg SUBLINGUAL Q5M PRN tab 01/20/18 [Rx] clopidogrel 75 mg tablet 75 mg PO QDAY #90 tab 02/03/18 [Rx Confirmed 02/03/18] losartan 25 mg tablet 25 mg PO BID tab 02/03/18 [History Confirmed 02/03/18] Ejection fraction %: 65 to 70 PFSH Medical History Atherosclerotic heart disease of [place] coronary artery without angina pectoris (Chronic) Aortic insufficiency (Chronic) Hyperlipidemia (Chronic) HTN (hypertension), benign (Chronic) Surgical History S/P coronary artery stent placement (Chronic 2003) History of cholecystectomy (Resolved) Family History Mother , Age 63 Myocardial infarction Father , Age 28 Colon cancer Social History Smoking Status: Never smoker alcohol intake: never caffeine: Yes Type: coffee Number of servings: 1 ROS Const Const: Positive for fatigue; negative for weakness, body ache, fever(s) or chills ENT ENT: Negative for dizziness Cardio Chest Pain: No Palpitations: No Edema: None Muscle aches with walking: None Resp Respiratory: Positive for SOB with activity; negative for SOB at rest, SOB orthopnea\SOB lying down or paroxysmal nocturnal dyspnea GI GI: Negative nausea, black,tarry stools, bright, red blood in stools or vomiting blood/hematemesis : Negative for hematuria or frequent nighttime urination/ nocturia Musc Musc: Negative for muscle aches/ myalgia Skin Skin: Negative non-healing lesions or rash Neuro Neuro: Negative for weakness, dizziness, lightheadedness, near syncope, syncope or orthostatic symptoms Endo Endo: Positive for fatigue Allergy Allergy/Immunology: Negative for rash Cardiology Exam Const Appearance: cooperative, no acute distress and well developed Orientation: alert, awake and oriented x3 Head Head: normocephalic and atraumatic Mouth: moist mucous membranes Eyes General: appearance normal, both eyes and all related structures Conjunctivae: conjunctivae normal Pupils: PERRL EOM: EOM intact bilaterally Neck Neck: normal visual inspection, no lymphadenopathy and no JVD Carotids: bruit (faint left ) Neck Mass: Negative Neck mass Chest Chest inspection: normal inspection of the chest and symmetric chest movement Auscultation: Bilateral: Clear to Auscultation Cardio Palpation: normal PMI Rate: regular rate Rhythm: regular rhythm Heart sounds: S1 normal, S2 normal and murmur; negative rub or gallop Murmur: Grade 3/6 and harsh GI GI: normal to inspection, soft, no hepatosplenomegaly and bowel sounds present; negative tender Neuro General: alert, awake, oriented x3, CN's II-XI intact bilaterally and moves all extremities Extremities Pulses: Normal: Right Posterior Tibial Pulse, Left Posterior Tibial Pulse, Right Radial Pulse, Left Radial Pulse Lower Extremity Edema: None: Bilateral Psych Psychological: normal affect Supplemental Info Heart catheterization January 2018 showed ejection fraction of 60%, elevated LV E DP, normal LV wall motion, left main as angiographically normal, proximal LAD with previously placed stent as patent, proximal LCx with 25% stenosis, mid LCx with 50% stenosis, proximal RCA with previously placed stent as patent, mid RCA with 90% stenosis, and distal RCA with 25% stenosis. She underwent PTCA/LEANDER to mid RCA. Echocardiogram from November 2014 showed an ejection fraction 65%, moderate enlarged left atrium, mild mitral annular calcification, extension of mitral and a consultation onto the posterior mitral valve leaflet, mild to moderate mitral valve insufficiency, mild tricuspid valve insufficiency, mild aortic stenosis, and mild aortic valve insufficiency. Stress test from January 2018 showed peak E CG with no obvious ECG changes with post ECG demonstrating appearance of a 0.5 1 mm horizontal/upsloping ST segment depression in leads II, III, and aVF with gradual improvement towards baseline in recovery and nuclear images showed concerns for an area of stress-induced myocardial ischemia though a component of soft tissue attenuation/artifact could not nicely be excluded with an ejection fraction 79%. Assessment AND Plan 1. Dyspnea on exertion R06.09 Plan Patient will remain on Brilinta for a total of 1 month. After that time she will be switched to Plavix with loading dose on day 1 and maintenance dose on day 2 and going forward. Hopefully this and in conjunction with cardiac rehab will help her dyspnea on exertion. Her recent heart catheterization in January 2018 showed ejection fraction of 60%. We will continue to follow this patient was instructed to contact office if she notes any new or worsening shortness of breath. 2. Atherosclerosis of [place] coronary artery of [place] heart without angina pectoris I25.10 Previous LEANDER to proxiimal to mid LAD 3.0 X 32 mm Taxus 02/23/[address] Daquan Meyer, [facility]: LEANDER to mid RCA 2.5 X 24 mm [facility] [facility] Plan Patient denies any chest pain, arm pain, jaw pain, neck pain, or fatigue suggestive of angina at this time. We will continue to monitor this. We will not make any medication regimen changes and will continue risk factor modification. She will proceed with cardiac rehab. Hopefully this also improves her fatigue. 3. S/P coronary artery stent placement Z95.5 Previous LEANDER to proxiimal to mid LAD 3.0 X 32 mm Taxus 02/23/[address] Daquan Meyer, [facility]: LEANDER to mid RCA 2.5 X 24 mm Synergy 01/19/[address] Steiner,[facility] Plan She will continue current treatment plan as outlined above. 4. Nonrheumatic aortic valve insufficiency I35.1 Plan Echocardiogram from November 2014 showed mild aortic valve stenosis and mild aortic valve insufficiency. She will continue current medications and we will continue to monitor through history, exam, and repeat echocardiogram as needed. 5. HTN (hypertension), benign I10 Plan Patient's blood pressure is well-controlled today in the office. We will continue to monitor this. We will not make any medication regimen changes. 6. Pure hypercholesterolemia E78.00; E78.0 Plan She will discuss this further to see if primary care physician has monitored oe we will monitor this in the future. She is instructed to contact office if she desires routine laboratory work from our office. She will continue current statin medication in the interim. Plan Detail Other Medications New: clopidogrel (Plavix) Take 300mg on day one and 75 on day two and so fort75 mg PO QDAY h. Discontinued: Additional Comments She will keep March 2018 appointment for further evaluation. This would be a good time to evaluate overall cardiac rehab and shortness of breath. She does mention in the past she had to have stenting 2 months after her first stent was placed. Thank you for allowing us to participate in the patient's plan of care, if you have any questions please do not hesitate to call. This note was generated using a voice recognition system and there may be incorrect words, spelling, or punctuation that were not noted upon reviewing the office note prior to saving. Coding Level of Care Code Off vis,est,level 3 Diagnoses Dyspnea on exertion R06.09 Atherosclerosis of [place] coronary artery of [place] heart without angina pectoris I25.10 [place] vs. transplanted heart: [place] heart S/P coronary artery stent placement Z95.5 Nonrheumatic aortic valve insufficiency I35.1 Cardiac valve disease etiology: nonrheumatic HTN (hypertension), benign I10 Pure hypercholesterolemia E78.00; E78.0 Hyperlipidemia type: pure hypercholesterolemia Coding Level of Care Code Off vis,est,level 3 Diagnoses Dyspnea on exertion R06.09 Atherosclerosis of [place] coronary artery of [place] heart without angina pectoris I25.10 [place] vs. transplanted heart: [place] heart S/P coronary artery stent placement Z95.5 Nonrheumatic aortic valve insufficiency I35.1 Cardiac valve disease etiology: nonrheumatic HTN (hypertension), benign I10 Pure hypercholesterolemia E78.00; E78.0 Hyperlipidemia type: pure hypercholesterolemia 02/03/18 1623 <Electronically signed by Bryant GARCIA> Date Bryant GARCIA Cosigner Signature: Date (if applicable) CC: Boyd Casiano MD 12 LEAD ELECTROCARDIOGRAM Observed: 01/23/2018 Status: F Source: RENARD 2:26 PM [facility] [place] REPOSITORY [facility] Cardiovascular Services [address] [place] [address] 12 Lead EKG 01/20/18525 MR#: [id number] Acct: [id number] Name: PRECIOUS LEIGH Rep #: [id number] : 1935 82 From: Luis Alberto Bailey MD Attending Dr: Remy Momin DO Status: DIS IN Ordering Dr: Olvin Steiner MD Date: 01/20/18 Location: ICU Sex: F C Admitted: 01/17/18 Test Reason : AM EKG Blood Pressure : / mmHG Vent. Rate : 061 BPM Atrial Rate : 061 BPM P-R Int : 164 ms QRS Dur : 094 ms QT Int : 434 ms P-R-T Axes : 064 005 035 degrees QTc Int : 436 ms Normal sinus rhythm Voltage criteria for left ventricular hypertrophy Abnormal ECG Confirmed by CASSY WYNN, LUIS ALBERTO ([id number]), deputy editor in chief RIVERA EASTON ([id number]) on 01/23/2018 2:25:45 PM Referred By: DR STEINER Confirmed By:LUIS ALBERTO BAILEY MD 01/23/18 1425 Date Luis Alberto Bailey MD CC: Olvin Steiner MD; Remy Turner DO; Remy Momin DO Signed DISCHARGE SUMMARY Observed: 01/21/2018 Status: F Source: [place] 8:39 PM [facility] [place] REPOSITORY [facility] Medical Records Department [address] [place] [address] Discharge Summary 01/21/182031 MR#: [id number] Acct: [id number] Name: PRECIOUS LEIGH Rep #: [id number] : 1935 82 From: Remy Momin DO PCP: Remy Turner DO Status: DIS IN Y Location: ICU ICU07-1 Discharge Date and Diagnosis Date of Admission: 01/16/18 Date of Discharge: 01/20/18 - Primary Discharge Diagnosis #1 Unstable angina secondary to occlusive coronary artery disease right coronary artery #2 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 Daquan Meyer, [facility]: LEANDER to mid RCA 2.5 X 24 mm Synergy 01/19/[address] Steiner,[facility] Valvular heart disease (Chronic) Hypothyroidism (Chronic) Aortic insufficiency (Chronic) Hyperlipidemia (Chronic) HTN (hypertension), benign (Chronic) S/P coronary artery stent placement (Chronic 2003) Previous LEANDER to proxiimal to mid LAD 3.0 X 32 mm Taxus 02/23/[address] Daquan Meyer, [facility]: LEANDER to mid RCA 2.5 X 24 mm Synergy 01/19/[address] Steiner,[facility] Hospital Course and Treatment Procedures: Cardiac catheterization - With drug-eluting stent placement, Nuclear stress test Summary of Care Provided: The patient is a 82 year old F who was seen in the emergency room at [facility] with a chief complaint of intermittent chest pain for 2 weeks. Workup in the emergency room included an EKG which showed a normal sinus rhythm at [address] changes, this was not significantly changed from an EKG in 2005. Troponin was negative, chest x-ray was normal. Patient was given aspirin in the emergency room, she was admitted to PCU and serial enzymes were obtained and they were negative. Patient underwent a nuclear stress test which could not exclude reversible myocardial ischemia. Patient then underwent a coronary angiogram which showed occlusive coronary disease in the mid right coronary artery. Patient then underwent insertion of the LEANDER stent in this artery without complications. Patient was admitted to the ICU and observed overnight, the following day on 01/20/18, patient was seen and examined felt to be in stable condition for discharge home. Discharge Activity: Return to Normal Activity Weight Bearing Status: Full weight bearing Home Medications: Medications to take at Discharge atorvastatin 10 mg tablet 10 mg PO DAILY 90 Days 06/10/17 levothyroxine 88 mcg tablet 88 mcg PO DAILY 90 Days 06/10/17 nitroglycerin 0.4 mg sublingual tablet 0.4 mg SUBLINGUAL Q5- 15M PRN 10 Days #3390 tab 06/10/17 potassium chloride ER 10 mEq tablet,extended release 10 meq PO QDAY 06/17/17 Ascorbic Acid [Vitamin C] 500 mg PO DAILY 01/16/18 Calcium Citrate 600 mg PO DAILY 01/16/18 Co Q-10 100 mg PO DAILY 01/16/18 Fish Oil 01/16/18 Folic Acid 400 mcg PO DAILY@0800 01/16/18 Metoprolol Succinate [Toprol Xl] 50 mg PO QDAY 01/16/18 Multivitamin [Daily Multiple Vitamin] 1 each PO DAILY 01/16/18 Triamterene/Hydrochlorothiazid [Dyazide 37.5-25 Capsule] 1 cap PO QDAY 01/16/18 Aspirin E.C. [Ecotrin] 81 mg PO DAILY@0800 tablet 01/20/18 Losartan Potassium [Cozaar] 50 mg PO BID #60 tab 01/20/18 Nitroglycerin [Nitrostat] 0.4 mg SUBLINGUAL Q5M PRN tablet 01/20/18 Ticagrelor [Brilinta] 90 mg PO BID #60 tab 01/20/18 Following Prescrptions Were Given to Patient: Losartan Potassium [Cozaar] 50 mg PO BID #60 tab Ticagrelor [Brilinta] 90 mg PO BID #60 tab Primary Care Physician: Remy Turner DO [Primary Care Provider] - Please follow up with your Primary Care Physician in: in 2 weeks Please Follow Up With: Luis Alberto Bailey MD When: as directed Disposition: Home Minutes spent on discharge:: 32 Patient Condition:: Stable Medical Necessity - Tobacco Use Smoking Status: Never smoker Meaningful Use Info Meaningful Use Diagnoses (Choose all that apply): None applicable Code Visit Inpatient E AND M: 65454 Disch Hosp 01/21/182038 <Electronically signed by Remy Momin DO> Date Remy Momin DO Cosigner Signature (if applicable): Date CC: Remy Turner DO; Remy Momin DO Signed 12 LEAD ELECTROCARDIOGRAM Observed: 01/21/2018 Status: F Source: RENARD 11:38 AM [facility] [place] REPOSITORY [facility] Cardiovascular Services [address] [place] [address] 12 Lead EKG 01/16/18 2310 MR#: [id number] Acct: [id number] Name: CHANELPETERAPPLECAN Duong Rep #: [id number] : 1935 82 From: Luis Alberto Bailey MD Attending Dr: Remy Momin DO Status: DIS IN Ordering Dr: Abebe Sullivan MD Date: 01/19/18 Location: ICU Sex: F C Admitted: 01/17/18 Test Reason : CP ADMIT Blood Pressure : / mmHG Vent. Rate : 055 BPM Atrial Rate : 055 BPM P-R Int : 160 ms QRS Dur : 084 ms QT Int : 446 ms P-R-T Axes : 023 -08 019 degrees QTc Int : 426 ms Sinus bradycardia Nonspecific ST abnormality Abnormal ECG Confirmed by CASSY WYNN, LUIS ALBERTO ([id number]), deputy editor in chief RIVERA EASTON ([id number]) on 01/21/2018 11:37:50 AM Referred By: DR SULLIVAN Confirmed By:LUIS ALBERTO BAILEY MD 01/21/18 1137 Date Luis Alberto Bailey MD CC: Abebe Sullivan; Remy Turner DO; Remy Momin DO Signed 12 LEAD ELECTROCARDIOGRAM Observed: 01/21/2018 Status: F Source: [place] 11:37 AM [facility] REPOSITORY [facility] Cardiovascular Services [address] [place] [address] 12 Lead EKG 01/17/18 0605 MR#: [id number] Acct: [id number] Name: PRECIOUS LEIGH Rep #: [id number] : 1935 82 From: Luis Alberto Bailey MD Attending Dr: Remy Momin DO Status: DIS IN Ordering Dr: Abebe Sullivan MD Date: 01/17/18 Location: ICU Sex: F C Admitted: 01/17/18 Test Reason : AM EKG Blood Pressure : / mmHG Vent. Rate : 061 BPM Atrial Rate : 061 BPM P-R Int : 158 ms QRS Dur : 086 ms QT Int : 438 ms P-R-T Axes : 070 010 039 degrees QTc Int : 440 ms Normal sinus rhythm Left ventricular hypertrophy Abnormal ECG Confirmed by LUIS ALBERTO BAILEY MD ([id number]), deputy editor in chief RIVERA EASTON ([id number]) on 01/21/2018 11:37:00 AM Referred By: DR RAND Confirmed By:LUIS ALBERTO BAILEY MD 01/21/18 113 Date Luis Alberto Bailey MD CC: Abebe Sullivan; Remy Turner DO; Remy Momin DO Signed 12 LEAD ELECTROCARDIOGRAM Observed: 01/21/2018 Status: F Source: [place] 11:35 AM [facility] REPOSITORY [facility] Cardiovascular Services [address] [place] [address] 12 Lead EKG 01/17/18 0735 MR#: [id number] Acct: [id number] Name: PRECIOUS LEIGH Rep #: [id number] : 1935 82 From: Luis Alberto Bailey MD Attending Dr: Remy Momin DO Status: DIS IN Ordering Dr: Abebe Sullivan MD Date: 01/16/18 Location: ICU Sex: F C Admitted: 01/17/18 Test Reason : CP Blood Pressure : / mmHG Vent. Rate : 060 BPM Atrial Rate : 060 BPM P-R Int : 160 ms QRS Dur : 086 ms QT Int : 440 ms P-R-T Axes : 069 011 033 degrees QTc Int : 440 ms Normal sinus rhythm Nonspecific ST abnormality Abnormal ECG Confirmed by LUIS ALBERTO BAILEY MD ([id number]), deputy editor in chief RIVERA EASTON ([id number]) on 01/21/2018 11:34:46 AM Referred By: Confirmed By:LUIS ALBERTO BAILEY MD 01/21/18 1134 Date Luis Alberto Bailey MD CC: Abebe Sullivan; Remy Turner DO; Remy Momin DO Signed 12 LEAD ELECTROCARDIOGRAM Observed: 01/21/2018 Status: F Source: [place] 11:30 AM [facility] REPOSITORY [facility] Cardiovascular Services [address] [place] [address] 12 Lead EKG 01/18/181929 MR#: [id number] Acct: [id number] Name: PRECIOUS LEIGH Rep #: [id number] : 1935 82 From: Luis Alberto Bailey MD Attending Dr: Remy Momin DO Status: DIS IN Ordering Dr: Teodora Rand Date: 01/18/18 Location: ICU Sex: F C Admitted: 01/17/18 Test Reason : CP Blood Pressure : / mmHG Vent. Rate : 065 BPM Atrial Rate : 065 BPM P-R Int : 150 ms QRS Dur : 078 ms QT Int : 414 ms P-R-T Axes : 067 -18 011 degrees QTc Int : 430 ms Normal sinus rhythm Voltage criteria for left ventricular hypertrophy Nonspecific ST abnormality Abnormal ECG Confirmed by CASSY WNYN, LUIS ALBERTO ([id number]), deputy editor in chief RIVERA EASTON ([id number]) on 01/21/2018 11:30:43 AM Referred By: DR SULLIVAN Confirmed By:LUIS ALBERTO BAILEY MD 01/21/18 113 Date Luis Alberto Bailey MD CC: Teodora Turner DO; Remy Momin DO Signed 12 LEAD ELECTROCARDIOGRAM Observed: 01/21/2018 Status: F Source: [place] 11:27 AM [facility] REPOSITORY [facility] Cardiovascular Services [address] [place] [address] 12 Lead EKG 01/19/18 0557 MR#: [id number] Acct: [id number] Name: PRECIOUS LEIGH Rep #: [id number] : 1935 82 From: Luis Alberto Bailey MD Attending Dr: Remy Momin DO Status: DIS IN Ordering Dr: Olvin Steiner MD Date: 01/19/18 Location: ICU Sex: F C Admitted: 01/17/18 Test Reason : AM EKG Blood Pressure : / mmHG Vent. Rate : 058 BPM Atrial Rate : 058 BPM P-R Int : 152 ms QRS Dur : 078 ms QT Int : 432 ms P-R-T Axes : 071 -03 020 degrees QTc Int : 424 ms Sinus bradycardia Confirmed by CASSY WYNN, LUIS ALBERTO ([id number]), deputy editor in chief RIVERA EASTON ([id number]) on 01/21/2018 11:27:11 AM Referred By: DR MILLER Confirmed By:LUIS ALBERTO BAILEY MD 01/21/18 1127 Date Luis Alberto Bailey MD CC: Olvin Steiner MD; Remy Turner DO; Remy Momin DO Signed DISCHARGE INSTRUCTION Observed: 01/20/2018 Status: F Source: [place] 10:15 AM [facility] REPOSITORY [facility] Medical Records Department [address] [place] [address] Instructions for Home/Discharge Instructions 01/20/18 1013 MR#: [id number] Acct: [id number] Name: PRECIOUS LEIGH Rep #: [id number] : 1935 82 From: Remy Momin DO PCP: Remy Turner DO Status: ADM IN - Discharge Diagnoses Current Active Problems: Current Active and Chronic Problems (Last Updated 01/19/18 @ 10:07 by Julia Hagan) Angina pectoris (Acute) Valvular heart disease (Chronic) You will use the following diet at home:: No restrictions Your food should be the consistency of: Regular Your liquids should be the consistency of: Regular/Thin Discharge Activity: Return to Normal Activity Weight Bearing Status: Full weight bearing Allergies/Adverse Reactions: Allergies Iodinated Contrast- Oral and IV Dye Allergy (Intermediate, Verified 12/26/17 09:41) Rash ramipril [From Altace] Adverse Reaction (Severe, Verified 06/10/17 09:41) cough Medications to take at Discharge atorvastatin 10 mg tablet 10 mg PO DAILY 90 Days 06/10/17 levothyroxine 88 mcg tablet 88 mcg PO DAILY 90 Days 06/10/17 nitroglycerin 0.4 mg sublingual tablet 0.4 mg SUBLINGUAL Q5- 15M PRN 10 Days #2880 tab 06/10/17 potassium chloride ER 10 mEq tablet,extended release 10 meq PO QDAY 06/17/17 Ascorbic Acid [Vitamin C] 500 mg PO DAILY 01/16/18 Calcium Citrate 600 mg PO DAILY 01/16/18 Co Q-10 100 mg PO DAILY 01/16/18 Fish Oil 01/16/18 Folic Acid 400 mcg PO DAILY@0800 01/16/18 Metoprolol Succinate [Toprol Xl] 50 mg PO QDAY 01/16/18 Multivitamin [Daily Multiple Vitamin] 1 each PO DAILY 01/16/18 Triamterene/Hydrochlorothiazid [Dyazide 37.5-25 Capsule] 1 cap PO QDAY 01/16/18 Aspirin E.C. [Ecotrin] 81 mg PO DAILY@0800 tablet 01/20/18 Losartan Potassium [Cozaar] 50 mg PO BID #60 tab 01/20/18 Nitroglycerin [Nitrostat] 0.4 mg SUBLINGUAL Q5M PRN tablet 01/20/18 Ticagrelor [Brilinta] 90 mg PO BID #60 tab 01/20/18 The following prescriptions were given: Losartan Potassium [Cozaar] 50 mg PO BID #60 tab Ticagrelor [Brilinta] 90 mg PO BID #60 tab Primary Care Physician: Remy Turner DO [Primary Care Provider] - Please follow up with your Primary Care Physician in: in 2 weeks Test Results: Test results from this visit will be discussed in further detail at your follow-up appointment, if applicable. Please Follow Up With: Luis Alberto Bailey MD When: as directed 01/20/18 1015 <Electronically signed by Remy Momin DO> Date Remy Momin DO CC: Remy Turner DO CBC-COMPLETE BLOOD CNT Collected: 01/20/2018 Status: F Source: [place] NO DIFF 5:22 AM [facility] REPOSITORY TYPE CODE TESTS RESULT OUT OF RANGE REFERENCE UNITS LAB L100.1000 4.4-11.0 K/mm3 High WBC 19.3 LAB L100.1200 4.2-5.4 M/mm3 Low RBC 3.76 LAB L100.1300 12.0-15.0 g/dl Normal HGB 12.0 LAB L100.1400 37-47 % Low HCT 34.6 LAB L100.1500 81-99 fL Normal MCV 92.0 LAB L100.1600 27.0-32.0 pg Normal MCH 31.9 LAB L100.1700 32-36 g/gl Normal MCHC 34.7 LAB L100.1810 11.6-14.6 % Normal RDW CV 13.7 LAB L100.1820 35.1-43.9 fl High RDW SD 45.1 LAB L100.1900 150-450 K/mm3 Normal PLT 230 LAB L100.2000 6.2-12.0 fl Normal MPV 9.8 Performed By: #### L100.0500 #### [facility] [place], [address] BASIC METABOLIC Collected: 01/20/2018 Status: F Source: [place] PROFILE (BMP) 5:22 AM [facility] REPOSITORY TYPE CODE TESTS RESULT OUT OF RANGE REFERENCE UNITS LAB L501.0100 74-106 mg/dL High GLU 130 Result Comment: Fasting Glucose result greater than or equal to 126 mg/dL suggests DIABETES MELLITUS per A.D.A. criteria. Please note revised GLUCOSE reference range effective 2017. LAB L501.1000 7-18 mg/dL High BUN 25 LAB L501.1100 0.55-1.02 mg/dL High CREAT,SERUM 1.16 Result Comment: The validity of the calculated GFR AND GFRAA in patients over 70 years has not been determined. Clinical correlation is essential. LAB L501.1110 >60 mL/min Low EST GFR 48 Result Comment: Non- GFR Calc LAB L501.1115 >60 mL/min Low EST GFR - AA 58 Result Comment: GFR Calc LAB L501.1255 ml/min Normal Estimated CRCL 27.78 LAB L501.1300 10-20 RATIO High BUN/CRE 21.6 LAB L501.2200 8.5-10 mg/dL Normal .1 CA 8.9 LAB L501.5300 136-14 mmol/L Normal 5 NA 142 LAB L501.5600 3.5-5. mmol/L Normal 1 K 4.1 LAB L501.5900 98-107 mmol/L Normal CL 106 LAB L501.6100 21.0-3 mmol/L Normal 2.0 CO2 24.0 LAB L501.6200 5-15 Normal GAP 12 Performed By: #### L500.2500 #### [facility] [address] [facility] [place], [address] 12 LEAD ELECTROCARDIOGRAM Observed: 01/19/2018 Status: F Source: [place] 1:26 PM [facility] REPOSITORY [facility] Cardiovascular Services [address] [place] [address] 12 Lead EKG 01/16/181 MR#: [id number] Acct: [id number] Name: PRECIOUS LEIGH Rep #: [id number] : 1935 82 From: Luis Alberot Bailey MD Attending Dr: Remy Momin DO Status: ADM IN Ordering Dr: Artis Chapa Date: 01/16/18 Location: ICU Sex: F C Admitted: 01/17/18 Test Reason : CP Blood Pressure : / mmHG Vent. Rate : 070 BPM Atrial Rate : 070 BPM P-R Int : 150 ms QRS Dur : 082 ms QT Int : 394 ms P-R-T Axes : 073 016 049 degrees QTc Int : 425 ms Normal sinus rhythm Consider Left ventricular hypertrophy Abnormal ECG Confirmed by CASSY WYNN, LUIS ALBERTO ([id number]), deputy editor in chief RIVERA EASTON ([id number]) on 01/19/2018 1:26:39 PM Referred By: DR DENNISON Confirmed By:LUIS ALBERTO BAILEY MD 01/19/18 1326 Date Luis Alberto Bailey MD CC: ED PHYSICIAN PROVIDER; Remy Turner DO; Remy Momin DO Signed ACT ACTIVATED CLOTTING Collected: 01/19/2018 Status: F Source: [place] TIME 8:23 AM [facility] REPOSITORY TYPE CODE TESTS RESULT OUT OF RANGE REFERENCE UNITS LAB L9100.0100 74-137 sec High ACTk CLOT 186 TIME Performed By: #### L9100.0100 #### [facility] Point of Care [address] [place], [place] [address] BASIC METABOLIC Collected: 01/19/2018 Status: F Source: [place] PROFILE (BMP) 4:02 AM [facility] REPOSITORY TYPE CODE TESTS RESULT OUT OF RANGE REFERENCE UNITS LAB L501.0100 74-106 mg/dL High GLU 154 Result Comment: Fasting Glucose result greater than or equal to 126 mg/dL suggests DIABETES MELLITUS per A.D.A. criteria. Please note revised GLUCOSE reference range effective 2017. LAB L501.1000 7-18 mg/dL High BUN 24 LAB L501.1100 0.55-1.02 mg/dL High CREAT,SERUM 1.29 Result Comment: The validity of the calculated GFR AND GFRAA in patients over 70 years has not been determined. Clinical correlation is essential. LAB L501.1110 >60 mL/min Low EST GFR 42 Result Comment: Non- GFR Calc LAB L501.1115 >60 mL/min Low EST GFR - AA 51 Result Comment: GFR Calc LAB L501.1255 ml/min Normal Estimated CRCL 24.98 LAB L501.1300 10-20 RATIO Normal BUN/CRE 18.6 LAB L501.2200 8.5-10 mg/dL Normal .1 CA 9.3 LAB L501.5300 136-14 mmol/L Normal 5 NA 139 LAB L501.5600 3.5-5. mmol/L Normal 1 K 4.9 LAB L501.5900 98-107 mmol/L Normal CL 101 LAB L501.6100 21.0-3 mmol/L Normal 2.0 CO2 25.0 LAB L501.6200 5-15 Normal GAP 13 Performed By: #### L500.2500 #### [facility] [address] [place], [address] PROTHROMBIN TIME W/INR Collected: 01/19/2018 Status: F Source: [place] 4:02 AM [facility] REPOSITORY TYPE CODE TESTS RESULT OUT OF RANGE REFERENCE UNITS LAB L300.4150 11.7-14.9 SECONDS Normal PROTIME 13.2 LAB L300.4200 Normal INR 1.0 Performed By: #### L300.3900, L300.4310 #### [facility] [address] [place], [address] PARTIAL THROMBOPLAST Collected: 01/19/2018 Status: F Source: [place] TIME 4:02 AM [facility] REPOSITORY TYPE CODE TESTS RESULT OUT OF RANGE REFERENCE UNITS LAB L300.4310 24.1-36.2 Seconds Normal PTT 27.7 Performed By: #### L300.3900, L300.4310 #### [facility] [address] [place], [address] CBC W/DIFF, AUTOMATED Collected: 01/19/2018 Status: F Source: [place] 4:02 AM [facility] REPOSITORY TYPE CODE TESTS RESULT OUT OF RANGE REFERENCE UNITS LAB L100.1000 4.4-11.0 K/mm3 Normal WBC 9.2 LAB L100.1200 4.2-5.4 M/mm3 Normal RBC 4.35 LAB L100.1300 12.0-15.0 g/dl Normal HGB 13.3 LAB L100.1400 37-47 % Normal HCT 40.6 LAB L100.1500 81-99 fL Normal MCV 93.3 LAB L100.1600 27.0-32.0 pg Normal MCH 30.6 LAB L100.1700 32-36 g/gl Normal MCHC 32.8 LAB L100.1810 11.6-14.6 % Normal RDW CV 13.9 LAB L100.1820 35.1-43.9 fl High RDW SD 47.4 LAB L100.1900 150-450 K/mm3 Normal PLT 226 LAB L100.2000 6.2-12.0 fl Normal MPV 10.1 LAB L100.2100 47-70 % High NEUT% 87.0 LAB L100.2200 19-41 % Low LY% 10.7 LAB L100.2300 0-10 % Normal MONO% 1.3 LAB L100.2400 0-5 % Normal EO% 0.5 LAB L100.2500 0-1 % Normal BASO% 0.4 LAB L100.2550 0.0-0.9 % Normal IM GRAN % 0.100 Result Comment: IG% - Immature Granulocytes (promyelocytes, myelocytes and metamyelocytes) > 1% indicates that a LEFT SHIFT is Present. LAB L100.2620 2.0-7.7 X10 3/uL High Absolute Neut 8.0 LAB L100.2720 0.83-4.51 X10 3/ul Normal Absolute Lymph 0.99 Performed By: #### L100.0100 #### [facility] [address] [place], [address] URINALYSIS, COMPLETE Collected: 01/19/2018 Status: F Source: [place] 1:16 AM [facility] REPOSITORY Order Comment: How was Urine Obtained? CLEAN CATCH TYPE CODE TESTS RESULT OUT OF RANGE REFERENCE UNITS LAB L400.3000 Yellow COLOR Normal Yellow LAB L400.3050 Clear Normal CLARITY Clear LAB L400.3200 Normal mg/dl Normal GLUCOSE, UR Normal LAB L400.3300 Negative mg/dL Normal BILIRUBIN URINE Negative LAB L400.3400 Negative mg/dl Normal KETONE UR Negative LAB L400.3465 1.002-1.030 Normal SP.GR. DIPSTX 1.005 LAB L400.3550 5.0 - 8.0 pH UR Normal 7.0 LAB L400.3600 Negative mg/dl PROT Normal DIPSTX Negative LAB L400.3700 Normal mg/dl Normal UROBILI Normal LAB L400.3750 Negative Normal NITRITE UR Negative LAB L400.3780 Negative /ul Normal OCCULT BLOOD-UR Negative LAB L400.3800 Negative /ul High LEUK 25 ESTERASE LAB L400.4050 0-5 /hpf WBC 0 Normal SEEN LAB L400.4100 0-5 /hpf 0 Normal RBC-UA SEEN LAB L400.4150 5-10 /hpf SQUAM Normal EPI 0-5 SEEN LAB L400.4300 None Seen /hpf 0 Normal BACTERIA SEEN LAB L400.4350 <or=2+ /hpf 0 Normal MUCUS, URINE SEEN Performed By: #### L400.0001 #### [facility] [address] [place], [address] Observed: 01/19/2018 Status: F Source: [place] CULTURE, URINE 1:16 AM [facility] REPOSITORY Urine Culture Culture exhibits no growth. Performed By: #### M100.0650 #### [facility] [address] [place], [address] CONSULTATION Observed: 01/18/2018 Status: F Source: [place] 9:02 AM [facility] REPOSITORY [facility] Medical Records Department [address] [place] [address] Consultation 01/17/18 1511 MR#: [id number] Acct: [id number] Name: PRECIOUS LEIGH Rep #: [id number] : 1935 82 From: Luis Alberto Bailey MD PCP: Remy Turner DO Status: ADM IN Location: [place] [address] Problem List (1) Angina pectoris Status: Acute (2) CAD (coronary artery disease) Status: Chronic Qualifiers: Coronary Disease-Associated Artery/Lesion type: [place] artery [place] vs. transplanted heart: [place] heart (3) S/P coronary artery stent placement Status: Chronic Comment: RCA/LAD (4) Valvular heart disease Status: Chronic (5) Hyperlipidemia Status: Chronic Qualifiers: (6) HTN (hypertension), benign Status: Chronic (7) Hypothyroidism Status: Chronic Reason for Consult Date of Consultation: 01/17/18 History of Present Illness: The patient is a 82 year old white female with a past cardiovascular history which is included underlying hyperlipidemia, hypertension, CAD, status post PCI, valvular heart disease, superimposed upon hypothyroidism, who is referred for evaluation of concerns of angina pectoris and a subsequent abnormal pharmacologic stress nuclear imaging study. Patient did contact the [facility] on 01/17/2028 13 based upon having symptoms, over the last week, which were progressing, of epigastric discomfort, chest discomfort, left upper extremity discomfort, and jaw discomfort associated with some shortness of breath and dyspnea not relieved with gastrointestinal related therapy. She notes her symptoms were worsening. She presented to the [facility] emergency department on 01/16/2018 for further evaluation. At that time she appear to be without acute symptoms. Her cardiac enzymes were negative and her ECG demonstrated no acute ECG changes. She was placed in the hospital for further evaluation and care. She subsequently underwent a pharmacologic stress nuclear imaging study. During the study she had recurrent symptoms including jaw discomfort, postinfusion ECG changes, and post infusion myocardial perfusion changes (please see official report)-all of which raise concerns of angina pectoris and concerns of her underlying CAD process. She has denied orthopnea, PND, or peripheral pitting edema. There has been no near syncope or syncope. She states she did not use her nitroglycerin sublingual tablets for her symptoms. [] Past Medical History Allergies/Adverse Reactions: Allergies Iodinated Contrast- Oral and IV Dye Allergy (Intermediate, Verified 06/10/17 09:41) Rash ramipril [From Altace] Adverse Reaction (Severe, Verified 06/10/17 09:41) cough Home Medications: Ambulatory Orders Medication Instructions Recorded aspirin 325 mg tablet,delayed 325 mg PO QDAY 06/10/17 release atorvastatin 10 mg tablet 10 mg PO DAILY 90 Days 06/10/17 Past Medical History (Chronic Problems): Chronic Problems (Last Updated 01/16/18 @ 22:23 by Abebe Sullivan MD) Valvular heart disease (Chronic) Hypothyroidism (Chronic) Aortic insufficiency (Chronic) Hyperlipidemia (Chronic) HTN (hypertension), benign (Chronic) S/P coronary artery stent placement (Chronic 2003) RCA/LAD CAD (coronary artery disease) (Chronic) Surgical History: angioplasty, cholecystectomy, - - Cardiac stents. 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 Denies: Orthopnea, PND, Peripheral Edema, Palpitations, Lightheadedness, Dizziness, Near Syncope, Syncope Respiratory: Reports: Shortness of Breath. Denies: Cough, Sputum Production, Hemoptysis Gastrointestinal: Denies: Hematemesis, Hematochezia, Melena Genitourinary: Denies: Dysuria, Hematuria Skin: Denies: Rash Subjectve: This is an 82-year-old white female who appears to be resting comfortably at the moment in no acute distress. Objective: Vital Signs Temp Pulse Resp BP Pulse Ox 98.6 F 64 16 144/43 H 95 01/17/18 14:10 01/17/18 14:10 01/17/18 14:10 01/17/18 14:10 01/17/18 14:10 Oxygen Delivery Method Room Air General: Awake, Alert, Oriented x 3, Cooperative, No Acute Distress HEENT: Atraumatic, Normocephalic, PERRL, EOMI, Sclera Non Icteric Oral: Moist Mucosa Neck: Supple, Good ROM, No JVD Lungs: Clear to auscultation Cardiovascular: Regular Rhythm, Normal S1, Normal S2 Murmur Murmur: Grade 3/6, Mid Systolic, LLSB, LVOT, Sternal Notch - 2/6 diastolic murmur at lower left sternal border Vascular: L Carotid Artery Bruits Abdomen: Bowel Sounds Present, Soft, Non Tender Extremities: No Cyanosis, No Clubbing, No edema Neurological: No Focal Motor or Sensory Deficit Psych/Mental Status: Appropriate, Normal Affect Rhythm: Sinus rhythm EKG: Sinus rhythm ECHO: 11/18/2014: Left ventricle normal with an LVEF of 65%; moderate left atrial enlargement; mild mitral annular calcification; mild to moderate MR; mild TR; mild aortic valve stenosis; mild AI; calcified aortic root; estimated RV systolic pressure of 32 mmHg Stress Test: 02/13/2016: Stress nuclear imaging study: Myocardial perfusion findings compatible with the effects of physiologic apical thinning with no myocardial perfusion changes consider diagnostic for associated stress-induced myocardial ischemia or previous myocardial injury/infarction 01/17/2018: Pharmacologic stress nuclear imaging study: The patient underwent pharmacologic (Regadenoson) evaluation with a peak heart rate of 84 beats per minute (60 predicted maximal heart rate) and a peak blood pressure of 190/66 mmHg. The baseline ECG demonstrated normal sinus rhythm. The peak pharmacologic ECG demonstrated no obvious ECG changes. The postinfusion ECG demonstrated the appearance of 0.5-1 mm of horizontal/upsloping ST segment depression in leads II, III, aVF, with gradual improvement towards baseline in recovery. There were no cardiac dysrhythmias pretest, during pharmacologic infusion, or recovery. The patient noted chest/jaw discomfort during pharmacologic infusion with gradual resolution towards baseline in recovery. The examination was discontinued secondary to completion of protocol. Impression: 1. Pharmacologic (Regadenoson) evaluation 2. Peak pharmacologic ECG with with no obvious ECG changes. The postinfusion ECG demonstrated the appearance of 0.5-1 mm horizontal/upsloping ST segment depression in leads II, III, and aVF with gradual improvement towards baseline in recovery. 3. There were no cardiac dysrhythmias during pharmacologic infusion or recovery 4. Nuclear images pending Myocardial perfusion imaging study: Technique: The patient was injected with 12.0 millicuries of technetium 99m Cardiolite and subsequently rest SPECT Cardiolite nuclear imaging was obtained in the horizontal long, vertical long, and short axis views. The patient underwent pharmacologic (Regadenoson) evaluation with a peak heart rate of 84 beats per minute (60 % percent predicted maximal heart rate) and a peak blood pressure of 190/66 mmHg. The patient was injected with 35.8 millicuries of technetium 99m Cardiolite and subsequently stress SPECT Cardiolite nuclear imaging was obtained in the horizontal long, vertical long, and short axis views. A gated Cardiolite study at peak stress was obtained. Interpretation: Rest and stress SPECT Cardiolite nuclear imaging status post realignment, normalization, pre-attenuation correction, and post attenuation correction demonstrate on the pre-attenuation correction images an area of diminished tracer uptake in the mid inferior segments status post stress. These findings are less noticeable on the post attenuation correction images and otherwise there appears to be relative uniform tracer uptake. There is end systolic thickening and brightening. The gated Cardiolite study demonstrates myocardial thickening and inward wall motion. The reported LVEF is 79 %. Impression: 1. Rest and stress SPECT Cardiolite nuclear imaging pre-attenuation correction demonstrates an area of diminished tracer uptake in the mid inferior segments status post stress which appears to be less prominent on the post attenuation correction images and otherwise appears to demonstrate relative uniform tracer uptake. The aforementioned findings appear concerning for an area of stress-induced myocardial ischemia although a component of soft tissue attenuation/artifact cannot necessarily be excluded. 2. The gated Cardiolite study reports an LVEF of 79 %. Cardiac Cath: 08/06/2005: [facility]: Left ventricle normal with an LVEF of 68%; LAD with 10-20% proximal in-stent stenosis, 10-20% mid stenosis; small first diagonal branch with stent usp with 50% ostial stenosis; LCx with 10-20% proximal stenosis, 40-50% mid stenosis, and 20-30% distal stenosis; second OM branch with 10-20% ostial stenosis; RCA with 10-20% proximal to mid in-stent stenosis in 10-20% mid stenosis PCI: 02/23/2004: [facility]: LAD PTCA/stent CXR: Preliminary evaluation: No acute cardiopulmonary disease process appreciated: Please see official report Carotid artery duplex study: [facility]: 08/19/2014: Right internal carotid: 20-39% stenosis; left internal carotid: 40-59% stenosis Assessment/Plan 1. Angina pectoris The patient presents with symptoms which she has complained of epigastric discomfort, chest discomfort, left upper extremity discomfort, and jaw discomfort concerning for angina pectoris. She underwent evaluation with cardiac enzymes which was negative. Her ECG demonstrated no acute ECG changes. She subsequently underwent further evaluation with a pharmacologic stress nuclear imaging study. She had recurrent symptoms including jaw discomfort during the study. She did have postinfusion electrocardiographic changes. Her nuclear images demonstrated on pre-attenuation correction concerns of an area of diminished myocardial perfusion/tracer uptake in the mid inferior segment which appeared less prominent on the post attenuation images. The overall scenario does raise concerns about the patient's underlying CAD status and progression of CAD bringing out her symptoms, more so over the last week, and an accelerated mode. Thus at the present time she should continue medical management. She should be considered for further evaluation with diagnostic cardiac catheterization. The procedure and risks were discussed with her. 2. CAD status post PCI The patient does have a history of previous CAD and PCI. This is to the LAD and RCA distributions. Again her symptoms are concerning. Her pharmacologic stress nuclear imaging study is not unremarkable. It does raise concerns. Thus she should continue medical management and further evaluation as described above. 3. Valvular heart disease The patient does have an element of underlying valvular heart disease. In the past is not felt to be hemodynamically significant to proceed with either percutaneous or surgical based intervention. She will need to be followed and reassessed as deemed appropriate. 4. Hyperlipidemia She will need to continue risk factor evaluation and care as deemed appropriate. 5. Hypertension Blood pressures have been noted to be markedly elevated. It is unclear whether this is secondary to her other related symptoms, etc. or whether this may be a change in her blood pressure and potentially bringing out her other symptoms and findings. He should continue antihypertensive therapy to bring her blood pressures under better control. 6. Hypothyroidism The patient will need to continue thyroid therapy as deemed appropriate by her primary care physicians. Comment: The patient's case has been discussed and reviewed with the patient. This note was generated with Fieldwire dictation software. It may contain incorrect words, spelling, and punctuation that were not noted in checking the note before signing. 01/18/18 0902 <Electronically signed by Luis Alberto Bailey MD> Date Luis Alberto Bailey MD Cosigner Signature (if applicable): Date CC: Remy Turner DO Signed STRESS REPORT Observed: 01/17/2018 Status: F Source: [place] 12:09 PM [facility] REPOSITORY [facility] Cardiovascular Services [address] [place] [address] MR#: [id number] Acct: [id number] Name: PRECIOUS LEIGH Rep #: [id number] : 1935 82 From: Luis Alberto Bailey MD Primary Care: Remy Turner DO Status: ADM SERGIO Ordering Dr: Sex: F C Stress Test Report Date: 01/17/2018 Procedure: Pharmacologic stress nuclear imaging study Indications: Chest pain; CAD; status post PCI Consent: Per the patient Procedure: The patient underwent pharmacologic (Regadenoson) evaluation with a peak heart rate of 84 beats per minute (60 predicted maximal heart rate) and a peak blood pressure of 190/66 mmHg. The baseline ECG demonstrated normal sinus rhythm. The peak pharmacologic ECG demonstrated no obvious ECG changes. The postinfusion ECG demonstrated the appearance of 0.5-1 mm of horizontal/upsloping ST segment depression in leads II, III, aVF, with gradual improvement towards baseline in recovery. There were no cardiac dysrhythmias pretest, during pharmacologic infusion, or recovery. The patient noted chest/jaw discomfort during pharmacologic infusion with gradual resolution towards baseline in recovery. The examination was discontinued secondary to completion of protocol. Impression: 1. Pharmacologic (Regadenoson) evaluation 2. Peak pharmacologic ECG with with no obvious ECG changes. The postinfusion ECG demonstrated the appearance of 0.5-1 mm horizontal/upsloping ST segment depression in leads II, III, and aVF with gradual improvement towards baseline in recovery. 3. There were no cardiac dysrhythmias during pharmacologic infusion or recovery 4. Nuclear images pending Myocardial perfusion imaging study: Technique: The patient was injected with 12.0 millicuries of technetium 99m Cardiolite and subsequently rest SPECT Cardiolite nuclear imaging was obtained in the horizontal long, vertical long, and short axis views. The patient underwent pharmacologic (Regadenoson) evaluation with a peak heart rate of 84 beats per minute (60 % percent predicted maximal heart rate) and a peak blood pressure of 190/66 mmHg. The patient was injected with 35.8 millicuries of technetium 99m Cardiolite and subsequently stress SPECT Cardiolite nuclear imaging was obtained in the horizontal long, vertical long, and short axis views. A gated Cardiolite study at peak stress was obtained. Interpretation: Rest and stress SPECT Cardiolite nuclear imaging status post realignment, normalization, pre-attenuation correction, and post attenuation correction demonstrate on the pre-attenuation correction images an area of diminished tracer uptake in the mid inferior segments status post stress. These findings are less noticeable on the post attenuation correction images and otherwise there appears to be relative uniform tracer uptake. There is end systolic thickening and brightening. The gated Cardiolite study demonstrates myocardial thickening and inward wall motion. The reported LVEF is 79 %. Impression: 1. Rest and stress SPECT Cardiolite nuclear imaging pre-attenuation correction demonstrates an area of diminished tracer uptake in the mid inferior segments status post stress which appears to be less prominent on the post attenuation correction images and otherwise appears to demonstrate relative uniform tracer uptake. The aforementioned findings appear concerning for an area of stress-induced myocardial ischemia although a component of soft tissue attenuation/artifact cannot necessarily be excluded. 2. The gated Cardiolite study reports an LVEF of 79 %. This note was generated with Sensegonation software. It may contain incorrect words, spelling, and punctuation that were not noted in checking the note before signing. 01/17/18 1209 <Electronically signed by Luis Alberto Bailey MD> Date Luis Alberto Bailey MD CC: Kristel Miller MD; Remy Turner Date Dictated: 01/17/181153 Date Transcribed: 01/17/181153 Tawer: PM Signed CBC W/DIFF, AUTOMATED Collected: 01/17/2018 Status: F Source: [place] 3:23 AM [facility] REPOSITORY TYPE CODE TESTS RESULT OUT OF RANGE REFERENCE UNITS LAB L100.1000 4.4-11.0 K/mm3 Normal WBC 7.0 LAB L100.1200 4.2-5.4 M/mm3 Low RBC 3.85 LAB L100.1300 12.0-15.0 g/dl Normal HGB 12.2 LAB L100.1400 37-47 % Low HCT 36.2 LAB L100.1500 81-99 fL Normal MCV 94.0 LAB L100.1600 27.0-32.0 pg Normal MCH 31.7 LAB L100.1700 32-36 g/gl Normal MCHC 33.7 LAB L100.1810 11.6-14.6 % Normal RDW CV 13.8 LAB L100.1820 35.1-43.9 fl High RDW SD 46.1 LAB L100.1900 150-450 K/mm3 Normal PLT 205 LAB L100.2000 6.2-12.0 fl Normal MPV 9.8 LAB L100.2100 47-70 % Normal NEUT% 53.8 LAB L100.2200 19-41 % Normal LY% 34.2 LAB L100.2300 0-10 % Normal MONO% 8.5 LAB L100.2400 0-5 % Normal EO% 2.6 LAB L100.2500 0-1 % Normal BASO% 0.6 LAB L100.2550 0.0-0.9 % Normal IM GRAN % 0.300 Result Comment: IG% - Immature Granulocytes (promyelocytes, myelocytes and metamyelocytes) > 1% indicates that a LEFT SHIFT is Present. LAB L100.2620 2.0-7.7 X10 3/uL Normal Absolute Neut 3.7 LAB L100.2720 0.83-4.51 X10 3/ul Normal Absolute Lymph 2.38 Performed By: #### L100.0100 #### [facility] [address] [place], [address] PROTHROMBIN TIME W/INR Collected: 01/17/2018 Status: F Source: [place] 3:23 AM [facility] REPOSITORY TYPE CODE TESTS RESULT OUT OF RANGE REFERENCE UNITS LAB L300.4150 11.7-14.9 SECONDS Normal PROTIME 14.0 LAB L300.4200 Normal INR 1.1 Performed By: #### L300.3900, L300.4310 #### [facility] [address] [place], [address] PARTIAL THROMBOPLAST Collected: 01/17/2018 Status: F Source: [place] TIME 3:23 AM [facility] REPOSITORY TYPE CODE TESTS RESULT OUT OF RANGE REFERENCE UNITS LAB L300.4310 24.1-36.2 Seconds Normal PTT 25.9 Performed By: #### L300.3900, L300.4310 #### [facility] [address] [place], [address] TROPONIN-I Collected: 01/17/2018 Status: F Source: [place] 3:23 AM [facility] REPOSITORY Order Comment: 'TROP' Serial specimen #1, #2 or #3: 3 TYPE CODE TESTS RESULT OUT OF RANGE REFERENCE UNITS LAB L501.4010 <0.045 ng/mL Normal < 0.015 TROPONIN-I Result Comment: TROPONIN-I EXPECTED VALUES <0.045 Negative 0.045 - 0.590 Consistent with Cardiac Damage > OR = 0.600 Critical Value Not every elevated troponin is indicative of IA. These values should be used with clinical judgement in examining the patient's clinical picture for diagnosis. To establish a diagnosis of IA versus myocardial injury, there must be a demonstrated rise and/or fall in the troponin values, in addition to ischemic symptoms, EKG changes, new regional wall motion abnormality, and/or angiographical evidence. PLEASE NOTE: REFERENCE RANGES EDITED 17 Performed By: #### L501.4010 #### [facility] [address] [place], [address] BASIC METABOLIC Collected: 01/17/2018 Status: F Source: [place] PROFILE ([facility]) 3:23 AM [facility] REPOSITORY TYPE CODE TESTS RESULT OUT OF RANGE REFERENCE UNITS LAB L501.0100 74-106 mg/dL High GLU 127 Result Comment: Fasting Glucose result greater than or equal to 126 mg/dL suggests DIABETES MELLITUS per A.D.A. criteria. Please note revised GLUCOSE reference range effective 2017. LAB L501.1000 7-18 mg/dL High BUN 21 LAB L501.1100 0.55-1.02 mg/dL High CREAT,SERUM 1.13 Result Comment: The validity of the calculated GFR AND GFRAA in patients over 70 years has not been determined. Clinical correlation is essential. LAB L501.1110 >60 mL/min Low EST GFR 49 Result Comment: Non- GFR Calc LAB L501.1115 >60 mL/min Normal EST GFR - AA 60 Result Comment: GFR Calc LAB L501.1255 ml/min Normal Estimated CRCL 28.52 LAB L501.1300 10-20 RATIO Normal BUN/CRE 18.6 LAB L501.2200 8.5-10 mg/dL Normal .1 CA 8.6 LAB L501.5300 136-14 mmol/L Normal 5 NA 142 LAB L501.5600 3.5-5. mmol/L Normal 1 K 3.8 LAB L501.5900 98-107 mmol/L Normal CL 104 LAB L501.6100 21.0-3 mmol/L Normal 2.0 CO2 29.0 LAB L501.6200 5-15 Normal GAP 9 Performed By: #### L500.2500 #### [facility] [address] [place], [address] EMERGENCY DEPARTMENT Observed: 01/17/2018 Status: F Source: [place] SUMMARY 12:36 AM [facility] REPOSITORY [facility] Medical Records Department [address] [place] [address] Emergency Department Summary 01/16/18 2214 MR#: [id number] Acct: [id number] Name: PRECIOUS LEIGH Rep #: [id number] : 1935 82 From: Kofi Barclay MD PCP: Remy Turner DO Status: ADM SERGIO - ER Visit Summary Date of Service: 01/16/18 Chief Complaint: Chest pain History of Present Illness: The patient is a [address] Cassy Casiano. She reports that she has had intermittent chest pain for the past 2 weeks. She reports that this evening she was walking around the store and had a severe left-sided chest discomfort that she describes as indigestion. States pain is 6 out of 10 at worst and she is pain-free currently. States that was much worse when she walked around. It resolved with rest. There is no associated nausea, vomiting, diaphoresis, shortness of breath. Physical Examination: Vitals: Stable. Afebrile. General: Well-nourished and well-developed. Head: Normocephalic atraumatic. Neck: Supple, no lymphadenopathy. No JVD. Nontender. Cardiovascular: Regular rate and rhythm. No murmurs. Respiratory: No respiratory distress. Clear to auscultation bilaterally. Abdominal: Soft, nontender, nondistended, normal bowel sounds. No guarding, rebound, or peritoneal signs. Back: Nontender. Extremities: Nontender, no edema. Skin: Normal color, no rash. Neurologic: Alert and oriented 3. Cranial nerves II through XII are intact. Normal strength and sensation. Psych: Normal affect. Test Results: EKG is sinus at [address] changes. There is no significant change from 2006. Troponin is negative. INR is 1.0. Chem-7 is more for BUN of 23, creatinine 1.28, glucose 132. CBC is more for monocytes 12. Chest x-ray is normal. Emergency Department Course and Treatment: Patient was treated the dose of aspirin. She is resting comfortably. Treatment Plan: Patient's pain is certainly concerning for a cardiac etiology. She will be admitted to the hospital for further relation and treatment. Disposition: Admitted in stable condition. Impression: 1. Chest pain. 2. LUIS score 4. This note was generated with Sensegonation software. It may contain incorrect words, spelling, and punctuation that were not noted in review of the chart prior to signing ED Disposition - Plan for ED Patient: Chief Complaint: Chest Pain Referrals: Johnny,Remy, DO [Primary Care Provider] - What to do if you have Problems For any increased pain, shortness of breath, bleeding, nausea or vomiting, chest pain, or any unexpected problems, contact your Primary Care Provider. Call [facility] ([phone]) or report to the closest Emergency Room. Call 911 if necessary. 01/17/18 0036 <Electronically signed by Kofi Barclay MD> Date Kofi Barclay MD Cosigner Signature (If Indicated): Date CC: Remy Turner DO TROPONIN-I Collected: 01/17/2018 Status: F Source: [place] 12:30 AM [facility] REPOSITORY Order Comment: 'TROP' Serial specimen #1, #2 or #3: 2 TYPE CODE TESTS RESULT OUT OF RANGE REFERENCE UNITS LAB L501.4010 <0.045 ng/mL Normal < 0.015 TROPONIN-I Result Comment: TROPONIN-I EXPECTED VALUES <0.045 Negative 0.045 - 0.590 Consistent with Cardiac Damage > OR = 0.600 Critical Value Not every elevated troponin is indicative of IA. These values should be used with clinical judgement in examining the patient's clinical picture for diagnosis. To establish a diagnosis of IA versus myocardial injury, there must be a demonstrated rise and/or fall in the troponin values, in addition to ischemic symptoms, EKG changes, new regional wall motion abnormality, and/or angiographical evidence. PLEASE NOTE: REFERENCE RANGES EDITED 17 Performed By: #### L501.4010 #### [facility] [address] [place] [address]. [place], [place], [id number] HISTORY AND PHYSICAL Observed: 01/16/2018 Status: F Source: [place] EXAM 11:04 PM [facility] REPOSITORY [facility] Medical Records Department [address] [place] [address] History and Physical 01/16/18 2236 MR#: [id number] Acct: [id number] Name: PRECIOUS LEIGH Rep #: [id number] : 1935 82 From: Abebe Sullivan MD PCP: Remy Turner DO Status: ADM SERGIO Y Location: [place] [address] Problem List (1) Hypothyroidism Status: Chronic (2) Hyperlipidemia Status: Chronic Qualifiers: (3) HTN (hypertension), benign Status: Chronic (4) S/P coronary artery stent placement Status: Chronic Comment: RCA/LAD (5) CAD (coronary artery disease) Status: Chronic Qualifiers: History of Present Illness Date of Admission: 01/16/18 Chief Complaint: Chest pain. The patient is a 82 year old F with past medical history as mentioned above presented to the medicine because of chest pain. Her symptoms has been intermittent 2 weeks, intermittent chest pain, starts in the epigastric region, then goes to the chest, brought on when she eats or with walking, mild dull aching pain, 3-4 out of 10 in severity, radiates to her neck as well as left upper arm, sometimes improved with rest and without she denied associated nausea vomiting. She denied lightheadedness, diaphoresis, syncope or presyncope. She mentioned that she has been using Prilosec because she thinks is because of reflux disease but it is not helping. In the emergency department, initial blood pressure was high 222/70 and when I saw the patient, it was 187/61. She was afebrile, heart rate stable, pulse ox is normal on room air. Her routine blood work was remarkable for creatinine 1.28, otherwise normal. Her EKG revealed normal sinus rhythm without evidence of acute ischemic changes or cardiac arrhythmias. Troponin is negative. Chest x-ray showed no acute findings. She is being admitted for chest pain for evaluation. Past Medical History Past Medical History (Chronic Problems): Chronic Problems (Last Updated 01/16/18 @ 22:23 by Abebe Sullivan MD) Hypothyroidism (Chronic) Aortic insufficiency (Chronic) Hyperlipidemia (Chronic) HTN (hypertension), benign (Chronic) S/P coronary artery stent placement (Chronic 2003) RCA/LAD CAD (coronary artery disease) (Chronic) Medical History: Medical History (Last Updated 01/16/18 @ 22:23 by Abebe Sullivan MD) Aortic insufficiency (Chronic) I35.1 Hyperlipidemia (Chronic) E78.5 HTN (hypertension), benign (Chronic) I10 CAD (coronary artery disease) (Chronic) I25.10 Allergies Iodinated Contrast- Oral and IV Dye Allergy (Intermediate, Verified 06/10/17 09:41) Rash ramipril [From Altace] Adverse Reaction (Severe, Verified 06/10/17 09:41) cough Home Medications: Ambulatory Orders Medication Instructions Recorded aspirin 325 mg tablet,delayed 325 mg PO QDAY 06/10/17 Surgical History: Surgical History (Last Updated 06/10/17 @ 09:45 by ERYN White) S/P coronary artery stent placement (Chronic) Onset Date: 2003 Z95.5 RCA/LAD Surgical History: cholecystectomy, - - Cardiac stents. 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 Denies: Chest Tightness, Edema, Heaviness, Light Headedness, Palpitations, Paroxysmal Noc. Dyspnea, Syncope Respiratory: Denies: Cough, Hemoptysis, Pleuritic Pain, Shortness of Breath, Sputum production Gastrointestinal: Denies: Abdominal Pain, Constipation, Diarrhea, Nausea, Vomiting Genitourinary: Denies: Dysuria, Frequency, Hematuria Musculoskeletal: Denies: Arm Pain, Back Pain, Foot Pain Skin: Denies: Dryness, Rash Neurological: Denies: Balance problems, Change in Speech, Slurred speech, Confusion, Headaches, Incoordination, Numbness, Tingling Psychiatric: Denies: Anxiety, Depression Endocrine: Denies: Change in Body Habitus, Polydipsia VTE Information - Inpt Only VTE Present on Admission: No VTE Mechan Device Prophylaxis: None VTE Pharm Prophylaxis ordered?: Yes - Physical Exam General: Alert, Oriented x3, Cooperative, No apparent distress HEENT: Atraumatic, PERRLA, EOMI, Normocephalic Oral: Moist Mucosa, No Gingival or Mucosal Lesions/ Ulcerations Neck: Supple, No JVD, Negative Carotid Bruits, Trachea Midline, Thyroid Normal Size and Texture Lungs: Clear to auscultation, No rhonchi, No wheeze, No rales, Diminished Cardiovascular: Regular rate, Regular Rhythm, Normal S1, Normal S2, PMI Normal Abdomen: Bowel Sounds Present, Soft, Non Tender, Non-Distended, No Hepato-splenomegaly Extremities: No clubbing, No cyanosis, No edema Skin: No rashes, No breakdown Lymphatic: No Cervical, Supraclavicular, or Inguinal Adenopathy Neurological: Cranial nerves II-XII grossly intact, Motor Exam 5/5 strength throughout Psych/Mental Status: Normal Affect, Appropriate, Alert and oriented to time, place, person, mood and affect Vital Signs Temp Pulse Resp BP Pulse Ox 98.2 F 69 18 222/70 H 96 01/16/18 21:09 01/16/18 21:09 01/16/18 21:09 01/16/18 21:09 01/16/18 21:09 Oxygen Flow Rate (L/min) 2 Oxygen Delivery Method Nasal Cannula Weight: 169 lb Body Mass Index (BMI) 33.0 Laboratory Tests Past 24 Hrs Clinical Impression(s) from Imaging Studies Chest X-Ray 01/16/18 21:18 IMPRESSION: Normal x-ray examination of the chest. Electronically Signed: Alex Parks DO at 21:54 EDT Tel [phone], Service support , Assessment/Plan This is an 82 years old female patient presented to the emergency room because of chest pain and she is being admitted for evaluation #1 chest pain: Risk factors of history of CAD hypertension and hyperlipidemia. Her LUIS score is 4. EKG revealed no acute ischemic changes. Troponin is negative. Chest x-ray showed no acute findings. Plan: Admit to PCU for observation, cardiac monitoring, serial cardiac enzymes, repeat EKG tomorrow morning, nitroglycerin as needed, IV Zofran as needed, nuclear stress test tomorrow morning if cardiac enzymes are negative. #2 CAD status post stents: Plan as above, continue aspirin, statins, beta blockers and losartan. #3 hypertension: Blood pressure is elevated at this time. Plan to continue home medications when home medication list updated, start IV hydralazine as needed. #4 hypothyroidism: Continue levothyroxine. #5 hyperlipidemia: Continue statins. #6 DVT prophylaxis: Subcu heparin. This note was generated with Fieldwire dictation software. It may contain incorrect words, spelling, and punctuation that were not noted in checking the note before signing. Code Visit OBSV E AND M: [id number] Initial observation care L3 01/16/18 3774 <Electronically signed by Abebe Sullivan MD> Date Abebe Sullivan MD Cosigner Signature: Date (if applicable) CC: Abebe Sullivan; Remy Turner DO Signed CBC W/DIFF, AUTOMATED Collected: 01/16/2018 Status: F Source: [place] 9:15 PM [facility] REPOSITORY TYPE CODE TESTS RESULT OUT OF RANGE REFERENCE UNITS LAB L100.1000 4.4-11.0 K/mm3 Normal WBC 8.7 LAB L100.1200 4.2-5.4 M/mm3 Normal RBC 4.22 LAB L100.1300 12.0-15.0 g/dl Normal HGB 13.2 LAB L100.1400 37-47 % Normal HCT 39.6 LAB L100.1500 81-99 fL Normal MCV 93.8 LAB L100.1600 27.0-32.0 pg Normal MCH 31.3 LAB L100.1700 32-36 g/gl Normal MCHC 33.3 LAB L100.1810 11.6-14.6 % Normal RDW CV 14.1 LAB L100.1820 35.1-43.9 fl High RDW SD 48.1 LAB L100.1900 150-450 K/mm3 Normal PLT 225 LAB L100.2000 6.2-12.0 fl Normal MPV 9.8 LAB L100.2100 47-70 % Normal NEUT% 59.2 LAB L100.2200 19-41 % Normal LY% 25.7 LAB L100.2300 0-10 % High MONO% 12.1 LAB L100.2400 0-5 % Normal EO% 2.3 LAB L100.2500 0-1 % Normal BASO% 0.6 LAB L100.2550 0.0-0.9 % Normal IM GRAN % 0.100 Result Comment: IG% - Immature Granulocytes (promyelocytes, myelocytes and metamyelocytes) > 1% indicates that a LEFT SHIFT is Present. LAB L100.2620 2.0-7.7 X10 3/uL Normal Absolute Neut 5.2 LAB L100.2720 0.83-4.51 X10 3/ul Normal Absolute Lymph 2.24 Performed By: #### L100.0100 #### [facility] [address] [place], [address] PROTHROMBIN TIME W/INR Collected: 01/16/2018 Status: F Source: [place] 9:15 PM [facility] [place] REPOSITORY TYPE CODE TESTS RESULT OUT OF RANGE REFERENCE UNITS LAB L300.4150 11.7-14.9 SECONDS Normal PROTIME 13.0 LAB L300.4200 Normal INR 1.0 Performed By: #### L300.3900 #### [facility] [address] [place], [address] BASIC METABOLIC Collected: 01/16/2018 Status: F Source: [place] PROFILE (BMP) 9:15 PM [facility] REPOSITORY TYPE CODE TESTS RESULT OUT OF RANGE REFERENCE UNITS LAB L501.0100 74-106 mg/dL High GLU 132 Result Comment: Fasting Glucose result greater than or equal to 126 mg/dL suggests DIABETES MELLITUS per A.D.A. criteria. Please note revised GLUCOSE reference range effective 2017. LAB L501.1000 7-18 mg/dL High BUN 23 LAB L501.1100 0.55-1.02 mg/dL High CREAT,SERUM 1.28 Result Comment: The validity of the calculated GFR AND GFRAA in patients over 70 years has not been determined. Clinical correlation is essential. LAB L501.1110 >60 mL/min Low EST GFR 43 Result Comment: Non- GFR Calc LAB L501.1115 >60 mL/min Low EST GFR - AA 52 Result Comment: GFR Calc LAB L501.1255 ml/min Normal Estimated CRCL 25.18 LAB L501.1300 10-20 RATIO Normal BUN/CRE 18.0 LAB L501.2200 8.5-10 mg/dL Normal .1 CA 9.1 LAB L501.5300 136-14 mmol/L Normal 5 NA 137 LAB L501.5600 3.5-5. mmol/L Normal 1 K 3.8 LAB L501.5900 98-107 mmol/L Normal CL 101 LAB L501.6100 21.0-3 mmol/L Normal 2.0 CO2 29.0 LAB L501.6200 5-15 Normal GAP 7 Performed By: #### L500.2500, L501.4010 #### [facility] [address] [place], [place], [address] TROPONIN-I Collected: 01/16/2018 Status: F Source: [place] 9:15 PM [facility] REPOSITORY TYPE CODE TESTS RESULT OUT OF RANGE REFERENCE UNITS LAB L501.4010 <0.045 ng/mL Normal < 0.015 TROPONIN-I Result Comment: TROPONIN-I EXPECTED VALUES <0.045 Negative 0.045 - 0.590 Consistent with Cardiac Damage > OR = 0.600 Critical Value Not every elevated troponin is indicative of IA. These values should be used with clinical judgement in examining the patient's clinical picture for diagnosis. To establish a diagnosis of IA versus myocardial injury, there must be a demonstrated rise and/or fall in the troponin values, in addition to ischemic symptoms, EKG changes, new regional wall motion abnormality, and/or angiographical evidence. PLEASE NOTE: REFERENCE RANGES EDITED 17 Performed By: #### L500.2500, L501.4010 #### [facility] [address] [place], [place], [address] CHEST 1 VIEW Observed: 01/16/2018 Status: F Source: [place] (PORTABLE) 9:15 PM [facility] REPOSITORY [facility] Imaging Services [address] [place] [address] Chest 1 View (Portable) MR#: [id number] Acct: [id number] Name: PRECIOUS LEIGH Rep #: [id number] : 1935 F 82 From: Alex Parks DO PCP: Remy Turner DO Status: REG ER Study: Chest 1 View (Portable) Date of Exam: 01/16/18 Exam# [id number] Ordering Dr: Kofi Barclay MD STUDY: X-RAY CHEST REASON FOR EXAM: Female, 82 years old. Chest pain TECHNIQUE: Single frontal view COMPARISON: None. FINDINGS: The lungs are clear and expanded. There is no demonstrated pleural abnormality. Normal size heart. Normal mediastinum and to. Normal visualized pulmonary arteries. Calcified aortic arch and descending thoracic aorta. Degenerative changes of the thoracic spine. Mild degenerative changes of the shoulders. There is no demonstrated abnormality of the visualized soft tissue structures of the upper abdomen. RAD/Chest 1 View (Portable) IMPRESSION: Normal x-ray examination of the chest. Electronically Signed: Alex Parks DO at 21:54 EDT Tel [phone], Service support , CC: Remy Turner DO; Kofi Barclay MD Tawer: Signed Observed: 09/15/2017 Status: F Source: [place] CULTURE, THROAT 4:09 PM [facility] REPOSITORY Culture, Throat #1 Penicillin is the drug of choice for Beta Streptococcal infections. For Penicillin allergic patients, Erythromycin may be used. ORGANISM 1: Streptococcus group G Amount Growth 2+ ORGANISM 2: Stenotrophomonas maltophilia Amount Growth 1+ Stenotrophomonas maltophilia: REACTION Levofloxacin $ 0.5 S Trimethoprim/Sulfametho $ <=20 S (NF) indicates non-formulary drug at [facility]. Approval by Infectious Disease Specialist required before non-formulary drugs may be ordered and/or dispensed. Performed By: #### M100.1000 #### [facility] [address] [place], [place], [address] ALLERGIES ALLERGIES DATE TYPE / CODE NAME / CODE REACTION SEVERITY SOURCE 03/16/2018 Drug Iodinated Rash [place] [facility] Allergy/416 Contrast- [facility] 391058(SNOM and IV Repository ED CT) Dye/[id number](R XNORM) 03/16/2018 Drug ramipril/[id number] cough [place] [facility] Allergy/416 585(RXNORM) Hospital 925486(SNOM Repository ED CT) ENCOUNTERS ENCOUNTERS ADMIT/DISCHARGE ACCOUNT ADMITTING ENCOUNTER LOCATION SOURCE NUMBER CLASS 07/06/2018 [id number] Ambulatory [place] 9 [facility] ing:BFHLAB Repository 05/26/2018 [id number] Ambulatory [place] 9 [facility] ing:CR Repository 05/06/2018/ [id number] Ambulatory [place] [address] [facility] ing:CR Repository 04/20/2018/ [id number] Ambulatory [place] [address] [facility] ing:NS Repository 04/18/2018 [id number] Ambulatory [place] [address] [facility] ing:LAB Repository 04/15/2018/ [id number] Ambulatory [place] [address] [facility] ing:CR Repository 03/26/2018/ [id number] Ambulatory [place] [address] [facility] ing:NS Repository 03/24/2018 [id number] Ambulatory BMSBuilding:B [place] 1 [facility] Repository 03/24/2018 [id number] Ambulatory [place] [address] [facility] ing:CVS Repository 03/16/2018/ [id number] Ambulatory BMSBuilding:B [place] 8 1 [facility] Repository 03/16/2018 [id number] Ambulatory BMSBuilding:B [place] 6 [facility] Repository 03/13/2018 [id number] Ambulatory [place] [address] [facility] ing:LAB Repository 03/09/2018 [id number] [place] Ambulatory BMSBuilding:B [place] 0 [facility] Repository 03/09/2018 [id number] [place] Ambulatory BMSBuilding:B [place] 1 [facility] Repository 03/09/2018 [id number] [place] Ambulatory BMSBuilding:B [place] 5 [facility] Repository 03/09/2018 [id number] [place] Ambulatory BMSBuilding:B [place] 9 [facility] Repository 03/09/2018 [id number] [place] Ambulatory BMSBuilding:B [place] 7 [facility] Repository 03/09/2018/ [id number] [place] Inpatient [place] 8 4 [facility] ing:ICURoom: Repository [id number]: 1 03/09/2018/ [id number] [place] [address] [facility] ing:NS Repository 03/06/2018/ [id number] Ambulatory [place] [address] [facility] ing:CR Repository 02/13/2018/ [id number] Ambulatory [place] [address] [facility] ing:CR Repository 02/10/2018 [id number] Ambulatory [place] [facility] ing:CR Repository 02/06/2018 [id number] Ambulatory [place] [address] [facility] ing:BFHLAB Repository 02/03/2018/ [id number] Ambulatory BMSBuilding:B [place] 8 8 [facility] Repository 01/17/2018/ [id number] Ambulatory BMSBuilding:W [place] 8 4 [facility] Repository 01/17/2018 [id number] [place], Ambulatory BMSBuilding:B [place] 9 [place] MS.[facility] Repository 01/17/2018 [id number] [place], Ambulatory BMSBuilding:B [place] 2 [place] MS.[facility] Repository 01/17/2018 [id number] [place], Ambulatory BMSBuilding:B [place] 4 [place] MS.[facility] Repository 01/17/2018 [id number] [place], Ambulatory BMSBuilding:B [place] 6 [place] MS.[facility] Repository 01/17/2018 [id number] [place], Ambulatory BMSBuilding:B [place] 5 [place] MS.[facility] Repository 01/17/2018 [id number] [place], Ambulatory BMSBuilding:B [place] 8 [place] MS.[facility] Repository 01/17/2018/ [id number] [place], Inpatient [place] [address] [facility] ing:ICURoom: Repository QKQ63Ygy: 1 01/17/2018 [id number] [place], Ambulatory BMSBuilding:B [place] 5 [place] MS.[facility] Repository 01/16/2018 [id number] [place], Ambulatory BMSBuilding:B [place] 7 [place] MS.[facility] Repository 01/16/2018 [id number] [place], Ambulatory BMSBuilding:B [place] 1 [place] MS.[facility] Repository 01/16/2018/ [id number] Ambulatory BMSBuilding:W [place] 8 3 [facility] Repository 09/15/2017 [id number] Ambulatory [place] [address] [facility] ing:BFHLAB Repository PAYERS PAYERS ENCOUNTER GUARANTOR PAYER SUBSCRIBER SOURCE 07/06/2018 CHARO[place] E Primary CHAROLET E [place] [id number] N Insurance:MEDICARE HOSTETTLERDOB: [facility] PART [facility] [id number] Number: Repository [address]Kqx: (224) [id number] [phone] () Date:2018-07-06 07/06/2018 Secondary [place] Insurance:CIGNA BRANDEN HOSTETTLERDOB: Community SUPPLEMENT [id number] Rep[facility] Number: [id number] Date:8211-72-63LNDVIM [facility] [address]CL, [place] [address]SD: 07/06/2018 Tertiary NOT GIVENUNK [place] Insurance:SELF PAY [facility] Effective Repository Date:2018-07-06 05/26/2018 CHAROLET E Primary CHAROLET E [place] [id number] N Insurance:MEDICARE HOSTETTLERDOB: Community [place] [facility] [id number], [place] Number: Repository [address]Uuf: 330 [id number] [phone] () Date:2018-02-10 05/26/2018 Secondary [place] E [place] Insurance:CIGNA [facility] HOSTETTLERDOB: Community SUPPLEMENT [id number] [facility] Repository Number: [id number] Date:3274-02-12FZQKXQ [facility] [address]KE, [place] [address]RV: 05/26/2018 Tertiary NOT GIVENUNK [place] Insurance:SELF PAY [facility] Number: Effective Repository Date:2018-05-16 05/06/2018 CHAROLET E Primary CHAROLET E [place] [id number] N Insurance:MEDICARE HOSTETTLERDOB: Community [place] PART [facility] [id number], [place] Number: Repository [address]Vbg: 330 [id number] [phone] () Date:2018-02-10 05/06/2018 Secondary CHAROLET E [place] Insurance:[facility]NA [facility] HOSTETTLERDOB: Community SUPPLEMENT [id number] [facility] Repository Number: [id number] Date:8462-89-09TYNGRL [facility] [address] [address]SSXYJA, [place] [address]IH: 05/06/2018 Tertiary NOT GIVENUNK [place] Insurance:SELF PAY [facility] Number: Effective Repository Date:2018-04-16 04/20/2018 CHAROLET E Primary CHAROLET E [place] [id number] N Insurance:MEDICARE HOSTETTLERDOB: Community [place] [facility] [id number] [facility] [place] Number: Repository [address]Dbd: 330 [id number] [phone] () Date:2018-03-06 04/20/2018 Secondary [place]OLET E [place] Insurance:TONEY CURIELETTLERDOB: Community SUPPLEMENT [id number] [facility] Repository Number: [id number] Date:0541-30-83QUXMUI [facility] [address] [address]H, [place] [address]PR: 04/20/2018 Tertiary NOT GIVENUNK [place] Insurance:SELF PAY [facility] Number: Effective Repository Date:2018-04-16 04/18/2018 CHAROLET E Primary CHAROLET E [place] [id number] N Insurance:MEDICARE HOSTETTLERDOB: Community [place] [facility] [id number], [place] Number: Repository [address]Dkj: 330 [id number] [phone] () Date:2018-04-18 04/18/2018 Secondary [place] E [place] Insurance:TONEY CURIELETTLERDOB: Community SUPPLEMENT [id number] Durand Repository Number: [id number] Date:2879-03-24AYNTDT [facility] [address] [address]XZFXZM, [place] [address]ZI: 04/18/2018 Tertiary NOT GIVENUNK [place] Insurance:SELF PAY [facility] Number: Effective Repository Date:2018-04-18 04/15/2018 CHAROLET E Primary CHAROLET E [place] [id number] N Insurance:MEDICARE HOSTETTLERDOB: Community [place] [facility] [id number], [place] Number: Repository [address]Vug: 330 [id number] [phone] () Date:2018-02-10 04/15/2018 Secondary [place]LET E [place] Insurance:TONEY CRUIELETTLERDOB: Community SUPPLEMENT [id number] [facility] Repository Number: [id number] Date:5752-78-32JIYXLU [facility] [address] [address]UPYXH, [place] [address]CT: 04/15/2018 Tertiary NOT GIVENUNK [place] Insurance:SELF PAY [facility] Number: Effective Repository Date:2018-03-16 03/26/2018 CHAROLET E Primary CHAROLET E [place] [id number] N Insurance:MEDICARE HOSTETTLERDOB: Community [place] [facility] [id number], [place] Number: Repository [address]Bxi: 330 [id number] [phone] () Date:2018-03-06 03/26/2018 Secondary [place] E [place] Insurance:TONEY [facility] HOSTETTLERDOB: Community SUPPLEMENT [id number] [facility] Repository Number: [id number] Date:3671-60-60UGWGUB [facility] [address] [address]AMSUOB, [place] [address]ZK: 03/26/2018 Tertiary NOT GIVENUNK [place] Insurance:SELF PAY [facility] Number: Effective Repository Date:2018-03-16 03/24/2018 CHAROLET E Primary [place]LET E [place] [id number] N Insurance:MEDICARE HOSTETTLERDOB: [facility] [place] [facility] [id number], [place] Number: Repository [address]Dfb: 330 [id number] [phone] () Date:2018-03-16 03/24/2018 Secondary CHAROLET E [place] Insurance:TONEY [facility] HOSTETTLERDOB: Community SUPPLEMENT [id number] [facility] Repository Number: [id number] Date:9302-10-48OFXJJA [facility] [address] [address]QPBCRX, [place] [address]CM: 03/24/2018 Tertiary NOT GIVENUNK [place] Insurance:SELF PAY [facility] Number: Effective Repository Date:2018-03-24 03/24/2018 CHAROLET E Primary CHAROLET E [place] [id number] N Insurance:MEDICARE HOSTETTLERDOB: Community [place] [facility] [id number], [place] Number: Repository [address]Mmw: 330 [id number] [phone] () Date:2018-03-16 03/24/2018 Secondary CHAROLET E [place] Insurance:TONEY OTERO HOSTETTLERDOB: Community SUPPLEMENT [id number] Durand Repository Number: [id number] Date:4961-74-37BRFHHW [facility] [address] [address]WHKMJE, [place] [address]GV: 03/24/2018 Tertiary NOT GIVENUNK [place] Insurance:SELF PAY [facility] Number: Effective Repository Date:2018-03-16 03/16/2018 CHAROLET E Primary CHAROLET E [place] [id number] N Insurance:MEDICARE HOSTETTLERDOB: Community [place] [facility] BPolicy [id number], [place] Number: Repository [address]Kbw: 330 [id number] [phone] () Date:2017-06-11 03/16/2018 Secondary CHAROLET E [place] Insurance:TONEY CURIELETTLERDOB: Community SUPPLEMENT [id number] Durand Repository Number: [id number] Date:6760-22-63VXQZHC [facility] [address] [address]ED[place], [place] [address]ZH: 03/16/2018 Tertiary NOT GIVENUNK [place] Insurance:SELF PAY [facility] Number: Effective Repository Date:2018-03-11 03/16/2018 CHAROLET E Primary CHAROLET E [place] [id number] N Insurance:CIGNA BRANDEN HOSTETTLERDOB: Community [place] SUPPLEMENT [id number] [facility] Center Repository [address]Buo: 330) Number: [phone] () [id number] Date:1236-08-43EHKZFG [facility] [address] [address]MVWRUM, [place] [address]YT: 03/16/2018 Secondary CHAR[place]LET E [place] Insurance:MEDICARE HOSTETTLERDOB: Community PART A BPolicy [id number] Hospital Number: Repository [id number] Date:2018-03-16 03/16/2018 Tertiary NOT GIVENUNK [place] Insurance:SELF PAY [facility] Number: Effective Repository Date:2018-03-16 03/13/2018 CHAROLET E Primary CHAROLET E [place] [id number] N Insurance:MEDICARE HOSTETTLERDOB: Community [place] [facility] [id number], [place] Number: Repository [address]Cfu: 330 [id number] [phone] () Date:2018-03-13 03/13/2018 Secondary [place] E [place] Insurance:[facility]ONEY [facility]: Community SUPPLEMENT [id number] [facility] Repository Number: [id number] Date:9687-89-85MHJTJI [facility] [address] [address]BCNMCX, [place] [address]EA: 03/13/2018 Tertiary NOT GIVENUNK [place] Insurance:SELF PAY [facility] Number: Effective Repository Date:2018-03-13 03/09/2018 CHAROLET E Primary CHAROLET E [place] [id number] N Insurance:MEDICARE HOSTETTLERDOB: Community [place] [facility] [id number], [place] Number: Repository [address]Wgx: 330 [id number] [phone] () Date:2018-03-09 03/09/2018 Secondary CHAROLET E [place] Insurance:[facility]Y [facility]: Community SUPPLEMENT [id number] [facility] Repository Number: [id number] Date:1951-53-78YFRFEJ [facility] [address] [address]UQVLVU, [place] [address]EM: 03/09/2018 Tertiary NOT GIVENUNK [place] Insurance:SELF PAY [facility] Number: Effective Repository Date:2018-03-09 03/09/2018 CHAROLET E Primary CHAROLET E [place] [id number] N Insurance:MEDICARE HOSTETTLERDOB: Community [place] [facility] [id number] [facility] [place] Number: Repository [address]Nqp: 330 [id number] [phone] () Date:2018-03-09 03/09/2018 Secondary CHAROLET E [place] Insurance:[facility] HOSTETTLERDOB: Community SUPPLEMENT [id number] [facility] Repository Number: [id number] Date:4249-65-62EHJAZB [facility] [address] [address]CPSXBC, [place] [address]PC: 03/09/2018 Tertiary NOT GIVENUNK [place] Insurance:SELF PAY [facility] Number: Effective Repository Date:2018-03-09 03/09/2018 CHAROLET E Primary CHAROLET E [place] [id number] N Insurance:MEDICARE HOSTETTLERDOB: [facility] PART [facility] [id number] [facility]lands Ranch [facility] [place] Number: Repository [address]Fqt: 330 [id number] [phone] () Date:2018-03-09 03/09/2018 Secondary CHAROLET E [place] Insurance:[facility]ONEY [facility] ETTLERDOB: [facility] [id number] [facility] Repository Number: [id number] Date:7749-22-49HHDWQN [facility] [address] [address]TKAQNJ, [place] [address]BD: 03/09/2018 Tertiary NOT GIVENUNK [place] Insurance:SELF PAY [facility] Number: Effective Repository Date:2018-03-09 03/09/2018 CHAROLET E Primary CHAROLET E [place] [id number] N Insurance:MEDICARE HOSTETTLERDOB: [facility] PART [facility] [id number], [place] Number: Repository [address]Rhw: 330 [id number] [phone] () Date:2018-03-09 03/09/2018 Secondary CHAROLET E [place] Insurance:[facility] HOSTETTLERDOB: [facility] [id number] [facility] Repository Number: [id number] Date:4284-33-17CAZOLR [facility] [address] [address]SLEDPM, [place] [address]TE: 03/09/2018 Tertiary NOT GIVENUNK [place] Insurance:SELF PAY [facility] Number: Effective Repository Date:2018-03-09 03/09/2018 CHAROLET E Primary CHAROLET E [place] [id number] N Insurance:MEDICARE HOSTETTLERDOB: [facility] PART [facility] [id number] Number: Repository [address]Ldr: [phone]) [id number] [phone] () Date:2018-03-09 03/09/2018 Secondary CHAROLET E [place] Insurance:CIGNA [facility] HOSTETTLERDOB: Community SUPPLEMENT [id number] [facility] Repository Number: [id number] Date:2047-57-59HJHMLL [facility] [address] [address]YOGKBQ, [place] [address]CQ: 03/09/2018 Tertiary NOT GIVENUNK [place] Insurance:SELF PAY [facility] Number: Effective Repository Date:2018-03-09 03/09/2018 CHAROLET E Primary CHAROLET E [place] [id number] N Insurance:MEDICARE HOSTETTLERDOB: [facility] [id number], [place] Number: Repository [address]Als: 330 [id number] [phone] () Date:2018-03-09 03/09/2018 Secondary CHAROLET E [place] Insurance:[facility] HOSTETTLERDOB: Community SUPPLEMENT [id number] [facility] Repository Number: [id number] Date:7507-64-22YMRNNL [facility] [address] [address]UOQZRC, [place] [address]YX: 03/09/2018 Tertiary NOT GIVENUNK [place] Insurance:SELF PAY [facility] Number: Effective Repository Date:2018-03-09 03/09/2018 CHAROLET E Primary CHAROLET E [place] [id number] N Insurance:MEDICARE HOSTETTLERDOB: Community [place] [facility] [id number] [facility] [place] Number: Repository [address]Pnq: [phone]) [id number] [phone] () Date:2018-03-06 03/09/2018 Secondary CHAR[place]LET E [place] Insurance:TONEY OTERO HOSTETTLERDOB: Community SUPPLEMENT [id number] [facility] Repository Number: [id number] Date:6606-53-71QJQSWN [facility] [address] [address]GAJSZD, [place] [address]IB: 03/09/2018 Tertiary NOT GIVENUNK [place] Insurance:SELF PAY [facility] Number: Effective Repository Date:2018-03-06 03/06/2018 CHAROLET E Primary CHAROLET E [place] [id number] N Insurance:MEDICARE HOSTETTLERDOB: [facility] PART [facility] [id number] [facility] Med[facility] Number: Repository [address]Bqw: 330 [id number] [phone] () Date:2018-02-10 03/06/2018 Secondary CHAR[place] E [place] Insurance:[facility]ONEY [facility] ETTLERDOB: [facility] [id number] [facility]and Repository Number: [id number] Date:2838-54-18WWVUCXATRIUM [facility] LIFE [address] [address]LXWWCC, [place] [address]OG: 03/06/2018 Tertiary NOT GIVENUNK [place] Insurance:SELF PAY [facility] Number: Effective Repository Date:2018-02-14 02/13/2018 CHAROLET E Primary CHAROLET E [place] [id number] N Insurance:MEDICARE HOSTETTLERDOB: Community [place] [facility] [id number], [place] Number: Repository [address]Irv: (182) [id number] [phone] () Date:2018-02-10 02/13/2018 Secondary CHAR[place] E [place] Insurance:[facility]Y [facility] ETTLERDOB: Community SUPPLEMENT [id number] [facility] Repository Number: [id number] Date:1355-10-89VFKNUL [facility] [address], [place] [address]VD: 02/13/2018 Tertiary NOT GIVENUNK [place] Insurance:SELF PAY [facility] Number: Effective Repository Date:2018-02-10 02/10/2018 CHAROLET E Primary CHAROLET E [place] [id number] N Insurance:MEDICARE HOSTETTLERDOB: Community [place] PART [facility] [id number] [place] Number: Repository [id number]: (103) [id number] [phone] () Date:2018-01-23 02/10/2018 Secondary CHAROLET E [place] Insurance:[employer] [facility] HOSTETTLERDOB: Community SUPPLEMENT [id number] [facility]and Repository Number: [id number] Date:8987-98-67LXEKMH [facility] [address] [address], [place] [address]IZ: 02/10/2018 Tertiary NOT GIVENUNK [place] Insurance:SELF PAY [facility] Number: Effective Repository Date:2018-01-23 02/06/2018 CHAROLET E Primary CHAROLET E [place] [id number] N Insurance:MEDICARE HOSTETTLERDOB: Formerly [facility] PART A [facility] [id number] Number: Repository [id number]: 330 [id number] [phone] () Date:2018-02-06 02/06/2018 Secondary CHAROLET E [place] Insurance:[facility] HOSTETTLERDOB: Community SUPPLEMENT [id number] Durand Repository Number: [id number] Date:4879-59-91AMEEHN [facility] [address] [address], [place] [address]MC: 02/06/2018 Tertiary NOT GIVENUNK [place] Insurance:SELF PAY [facility] Number: Effective Repository Date:2018-02-06 02/03/2018 CHAROLET E Primary CHAROLET E [place] [id number] N Insurance:MEDICARE HOSTETTLERDOB: Community [place] PART [facility] [id number] Number: Repository [address]Usq: 330 [id number] [phone] () Date:2018-01-19 02/03/2018 Secondary CHAROLET E [place] Insurance:CIGNA [place]EN HOSTETTLERDOB: Community SUPPLEMENT [id number] Durand Repository Number: [id number] Date:7255-82-96DOUFTL [facility] [address] [place] [address]OX: 02/03/2018 Tertiary NOT GIVENUNK [place] Insurance:SELF PAY [facility] Effective Repository Date:2018-02-03 01/17/2018 CHAROLET E Primary CHAROLET E [place] [id number] [address] Insurance:MEDICARE HOSTETTLERDOB: Community [place] PART [facility] [id number] [facility] [place] Number: Repository [address]Bbh: 330 [id number] [phone] () Date:2018-01-16 01/17/2018 Secondary CHAROLET E [place] Insurance:CIGNA BRANDEN HOSTETTLERDOB: [facility] SUPPLEMENT [id number] [facility]and Repository Number: [id number] Date:8681-16-96TWYLLY [facility] [address] [place] [address]QH: 01/17/2018 Tertiary NOT GIVENUNK [place] Insurance:SELF PAY [facility]: Effective Repository Date:2018-01-17 01/17/2018 CHAROLET E Primary CHAROLET E [place] [id number] N Insurance:MEDICARE HOSTETTLERDOB: Community [place] PART [facility] [id number], [place] Number: Repository [address]Plp: [phone] [id number] [phone] () Date:2018-01-16 01/17/2018 Secondary CHAROLET E [place] Insurance:CIGNA MCR HOSTETTLERDOB: Community SUPPLEMENT [id number] [facility]and Repository Number: [id number] Date:0539-21-94PDCTTG [facility] [address] [address], [place] [address]YY: 01/17/2018 Tertiary NOT GIVENUNK [place] Insurance:SELF PAY [facility]: Effective Repository Date:2018-01-17 01/17/2018 CHAROLET E Primary CHAROLET E [place] [id number] N Insurance:MEDICARE HOSTETTLERDOB: Community [place] PART [facility] [id number] Highlands Ranch Hospital [place] Number: Repository [id number]: 330 [id number] [phone] () Date:2018-01-16 01/17/2018 Secondary CHAROLET E [place] Insurance:TONEY [facility] LUDOB: Community SUPPLEMENT [id number] Durand Repository Number: [id number] Date:5760-31-22XDUKXR [facility] [address] [address], [place] [address]YL: 01/17/2018 Tertiary NOT GIVENUNK [place] Insurance:SELF PAY [facility] Effective Repository Date:2018-01-17 01/17/2018 CHAROLET E Primary CHAROLET E [place] [id number] N Insurance:MEDICARE HOSTETTLERDOB: Community [place] PART A [facility] [id number] Highlands Ranch Hospital [place] Number: Repository [address]Rtn: 330 [id number] [phone] () Date:2018-01-16 01/17/2018 Secondary CHAROLET E [place] Insurance:TONEY [facility] LELELERDOB: Community SUPPLEMENT [id number] Durand Repository Number: [id number] Date:0145-54-56XFQRKT [facility] [address] [address], [place] [address]BD: 01/17/2018 Tertiary NOT GIVENUNK [place] Insurance:SELF PAY [facility]: Effective Repository Date:2018-01-17 01/17/2018 CHAROLET E Primary CHAROLET E [place] [id number] N Insurance:MEDICARE HOSTETTLERDOB: Community [place] PART [facility] [id number] [facility] MedCenter, [place] Number: Repository [address]Lod: 330 [id number] [phone] (HP) Date:2018-01-16 01/17/2018 Secondary CHAROLET E [place] Insurance:[facility] HOSTETTLERDOB: Community SUPPLEMENT [id number] [facility] Repository Number: [id number] Date:1228-64-53XSNHMK [facility] [address] [address], [place] [address]SD: 01/17/2018 Tertiary NOT GIVENUNK [place] Insurance:SELF PAY [facility] Number: Effective Repository Date:2018-01-17 01/17/2018 CHAROLET E Primary CHAROLET E [place] [id number] N Insurance:MEDICARE HOSTETTLERDOB: Community [place] PART [facility] [id number] Regional MedCenter, [place] Number: Repository [address]Xhb: 330 [id number] [phone] () Date:2018-01-16 01/17/2018 Secondary CHAROLET E [place] Insurance:TONEY OTERO HOSTETTLERDOB: Community SUPPLEMENT [id number] [facility] Repository Number: [id number] Date:1277-67-47LHVZCP [facility] [address] [address], [place] [address]FP: 01/17/2018 Tertiary NOT GIVENUNK [place] Insurance:SELF PAY [facility] Number: Effective Repository Date:2018-01-17 01/17/2018 CHAROLET E Primary CHAROLET E [place] [id number] N Insurance:MEDICARE HOSTETTLERDOB: Community [place] PART A [facility] [id number] Regional MedCenter, [place] Number: Repository [address]Mfw: 330 [id number] [phone] (HP) Date:2018-01-16 01/17/2018 Secondary CHAROLET E [place] Insurance:TONEY MICHAELSB: Community SUPPLEMENT [id number] Durand Repository Number: [id number] Date:7909-06-75JDVCLN [facility] [address] [address], [place] [address]XN: 01/17/2018 Tertiary NOT GIVENUNK [place] Insurance:SELF PAY [facility] Number: Effective Repository Date:2018-01-17 01/17/2018 CHAROLET E Primary CHAROLET E [place] [id number] N Insurance:MEDICARE HOSTETTLERDOB: Community [place] PART [facility] [id number], [place] Number: Repository [address]Bfq: 330 [id number] [phone] (HP) Date:2018-01-16 01/17/2018 Secondary CHAROLET E [place] Insurance:TONEY MICHAELSB: Community SUPPLEMENT [id number] Durand Repository Number: [id number] Date:9571-49-75EBJCNX [facility] [address] [address], [place] [address]XO: 01/17/2018 Tertiary NOT GIVENUNK [place] Insurance:SELF PAY [facility] Number: Effective Repository Date:2018-01-16 01/17/2018 CHAROLET E Primary CHAROLET E [place] [id number] N Insurance:MEDICARE HOSTETTLERDOB: Community [place] PART [facility] [id number], [place] Number: Repository [address]Ooy: 330 [id number] [phone] (HP) Date:2018-01-16 01/17/2018 Secondary CHAROLET E [place] Insurance:TONEY MICHAELSB: Community SUPPLEMENT [id number] [facility]and Repository Number: [id number] Date:9294-67-32VQRUQQ [facility] [address] [address], [place] [address]CO: 01/17/2018 Tertiary NOT GIVENUNK [place] Insurance:SELF PAY [facility] Number: Effective Repository Date:2018-01-17 01/16/2018 CHAROLET E Primary CHAROLET E [place] [id number] N Insurance:MEDICARE HOSTETTLERDOB: Community [place] PART [facility] [id number], [place] Number: Repository [address]Mqp: 330 [id number] [phone] () Date:2018-01-16 01/16/2018 Secondary CHAROLET E [place] Insurance:[facility] HOSTETTLERDOB: Community SUPPLEMENT [id number] [facility]and Repository Number: [id number] Date:9819-13-46JGVOMD [facility] [address] [address], [place] [address]HZ: 01/16/2018 Tertiary NOT GIVENUNK [place] Insurance:SELF PAY [facility] Number: Effective Repository Date:2018-01-16 01/16/2018 CHAROLET E Primary CHAROLET E [place] [id number] N Insurance:MEDICARE HOSTETTLERDOB: Community [place] PART A [facility] [id number] Highlands Ranch Hospital [place] Number: Repository [address]Txs: 330 [id number] [phone] () Date:2018-01-16 01/16/2018 Secondary CHAROLET E [place] Insurance:[facility] HOSTETTLERDOB: Community SUPPLEMENT [id number] [facility] Repository Number: [id number] Date:5615-79-15FUVQOA [facility] [address] [address], [place] [address]BL: 01/16/2018 Tertiary NOT GIVENUNK [place] Insurance:SELF PAY [facility] Number: Effective Repository Date:2018-01-16 01/16/2018 CHAROLET E Primary CHAROLET E [place] [id number] N Insurance:MEDICARE HOSTETTLERDOB: Community [place] PART [facility] [id number] Regional MedCenter, [place] Number: Repository [address]Uab: 330 [id number] [phone] () Date:2018-01-16 01/16/2018 Secondary CHAROLET E [place] Insurance:TONEY CURIELETTLERDOB: Community SUPPLEMENT [id number] [facility]and Repository Number: [id number] Date:0455-10-78KCLGZI [facility] [address] [address], [place] [address]OM: 01/16/2018 Tertiary NOT GIVENUNK [place] Insurance:SELF PAY [facility] Number: Effective Repository Date:2018-01-16 09/15/2017 CHAROLET E Primary CHAROLET E [place] [id number] N Insurance:MEDICARE HOSTETTLERDOB: Community [place] PART A [place]olic [id number], [place] Number: Repository [address]Hbx: 330 [id number] [phone] () Date:2017-09-15 09/15/2017 Secondary CHAROLET E [place] Insurance:TONEY CURIELADRIÁNB: Community SUPPLEMENT [id number] [facility] Repository Number: [id number] Date:2495-27-61VUZPND [facility] [address] [address], [place] [address]LW: 09/15/2017 Tertiary NOT GIVENUNK [place] Insurance:SELF PAY [facility] Number: Effective Repository Date:2017-09-15
== END ==
PROVIDERS: Family Provider Family Medicine; PCP Family Medicine; Visit Provider Family Medicine
DX: I10 Essential (primary) hypertension (principal); E03.9 Hypothyroidism, unspecified
CPT/HCPCS: 36415; 80048; 84439; 84443

== ENCOUNTER 2018-07-22 04:07 | Observation (INO) | payer MEDICARE, OTHER, SELFPAY ==
[2018-07-22] VITALS (50 sets, daily range): BP systolic 127–192; BP diastolic 30–66; PULSE 47–66; RESP 11–18; TEMP 36.4–36.8; O2SAT 92–100; BMI 31.1; BMI 30.4; BMI 30.5
--- NOTE | 2018-07-22 04:28 | EKG12_ITS ---
Test Reason : Blood Pressure : / mmHG Vent. Rate : 050 BPM Atrial Rate : 050 BPM P-R Int : 162 ms QRS Dur : 086 ms QT Int : 474 ms P-R-T Axes : 067 009 037 degrees QTc Int : 432 ms Sinus bradycardia Otherwise normal ECG Confirmed by IVA WYNN, DANA ([id number]), editor continuity and script RIVERA EASTON ([id number]) on 07/27/2018 11:24:13 AM Referred By: DEEDEE Confirmed By:DANA ENRIQUE MD
--- NOTE | 2018-07-22 04:28 | RAD_ITS ---
HISTORY: C/O LT SIDED JAW PAIN AND PAIN IN LT SHOULDER EXAM:XR Chest 1 View: Portable COMPARISON: 03/09/2018 FINDINGS: EKG leads in place. No significant change. Normal heart size. Upper lobe emphysema and bibasilar chronic interstitial thickening. No definite acute infiltrate. No vascular congestion or pleural effusion. No pneumothorax. Atherosclerotic thoracic aorta. RAD/Chest 1 View (Portable) IMPRESSION: 1. No definite acute disease or significant change. 2. Chronic lung disease with emphysema. at 0505 Reported and signed by: Margarito Quinn MD Electronically Signed: Margarito Quinn, at 5:04 EST Tel , Service support ,
[2018-07-22 04:42] LABS: Absolute Lymphocyte Count 1.76 X10^3/ul (0.83-4.51); Absolute Neutrophil Count 4.7 X10^3/uL (2.0-7.7); Basophil# 0.03 X10^3/uL; Basophil% 0.4 % (0-1); Eosinophil# 0.18 X10^3/uL; Eosinophils% 2.5 % (0-5); Hemoglobin 12.8 g/dl (12.0-15.0); Lymphocyte # 1.76 X10^3/ul (4.0); Lymphocyte % 24.6 % (19-41); Mean Corp Hgb Conc 32.8 g/gl (32-36); Mean Corpuscular Hgb 29.8 pg (27.0-32.0); Mean Corpuscular Volume 90.7 fL (81-99); Mean Platelet Vol. 10.1 fl (6.2-12.0); Monocyte# 0.43 X10^3/uL; Neutrophil # 4.73 X10^3/uL (2.7-7.7); Neutrophil % 66.4 % (47-70); Platelet Count 205 K/mm3 (150-450); RBC Distribution Width CV 14.4 % (11.6-14.6); RBC Distribution Width SD 47.1 fl (35.1-43.9); White Blood Count 7.1 K/mm3 (4.4-11.0)
[2018-07-22 04:43] LABS: POSITIVE COUNT NO; POSITIVE DIFFERENTIAL NO; POSITIVE MORPHOLOGY NO
[2018-07-22 05:02] LABS: Anion Gap 10 (5-15); BUN 21 mg/dL (7-18); BUN/Creat Ratio 18.6 RATIO (10-20); Calcium,Total 9.2 mg/dL (8.5-10.1); Chloride 104 mmol/L (98-107); Creatinine, Serum 1.13 mg/dL (0.55-1.02); EST Glomerular Filtration Rate 49 mL/min (>60); Est Glom Filt Rate - Afr Amer 60 mL/min (>60); Glucose 106 mg/dL (74-106); Potassium 4.6 mmol/L (3.5-5.1); Sodium Level 142 mmol/L (136-145)
--- NOTE | 2018-07-22 05:35 | ED.VISSUMM ---
- ER Visit Summary Date of Service: 07/22/18 Chief Complaint: Left jaw shoulder and upper arm pain History of Present Illness: The patient is a 82 F who presents with left jaw neck upper shoulder and arm pain. This is been occurring intermittently since last week. Last week she also had some lower chest and upper abdominal pain. However if her symptoms acutely worsened about 2 hours before presentation. Currently she complains of pain is 6 out of 10. She reports nausea but no vomiting diaphoresis or shortness of breath. She states this is similar to symptoms she was having last summer before she had 2 new stents. She does have a history of coronary disease with prior stents. Physical Examination: Afebrile blood pressure 192/49 heart rate 52 No distress Heart regular rhythm bradycardia Lungs are clear Abdomen soft nontender Extremities nontender Test Results: EKG shows sinus bradycardia at a rate of 50 with no acute ischemic changes. Labs unremarkable with a negative troponin. Chest x-ray shows no definite acute disease. Emergency Department Course and Treatment: Patient had taken a full dose aspirin about 1 hour before presentation. She was given sublingual nitroglycerin series here. She had improvement with the first 2 tablets and resolution of pain on the third. Given her known coronary disease similar symptoms to what she had before getting the stents and relief with nitroglycerin. Patient will need admitted for further evaluation. Treatment Plan: [] Disposition: Admit Impression: Chest pain This note was generated with [employer] dictation software. It may contain incorrect words, spelling, and punctuation that were not noted in review of the chart prior to signing ED Disposition - Plan for ED Patient: Referrals: Boyd Casiano MD [Primary Care Provider] -
--- NOTE | 2018-07-22 06:48 | HP.PCM_ITS ---
Problem List (1) Chest pain Status: Acute Qualifiers: History of Present Illness Date of Admission: 07/22/18 Chief Complaint: Jaw Pain The patient is a 82 year old F with a significant history of CAD status post 3 coronary stents in 2003, coronary stents in January 2018; and another coronary stent in February 2018 who presented with a 2-day history of episodic jaw pain that radiates to her left shoulder and her left arm. Patient reported that the last 2 days she has been taking aspirin that seem to be helping her pain. On the day of admission her pain woke her from her sleep and her drove her to the emergency department. Before presentation she took 4 doses of baby aspirin. At the emergency department patient was given 3 doses of nitroglycerin sublingual which took her pain away. She denies any aggravating factor to her pain. She rates her pain as 5-6 on a scale of 1-10. She describes her pain as dull and aching. She reports nausea on the way to the emergency department. She denies any diaphoresis or vomiting. She states that her pain is reminiscent of her previous coronary event She reported that her mother from a massive heart attack when she was 66 years old. Past Medical History Past Medical History (Chronic Problems): Chronic Problems (Last Reviewed 07/22/18 @ 07:02 by Jono Alex MD) Nonrheumatic aortic (valve) stenosis (Chronic) Carotid artery disease (Chronic) Atherosclerotic heart disease of [place] coronary artery without angina pectoris (Chronic) Presence of stent in coronary artery (Chronic) Previous LEANDER to proxiimal to mid LAD 3.0 X 32 mm Taxus 02/23/[address] Daquan Meyer, [facility];LEANDER to mid RCA 2.5 X 24 mm [facility] [facility] PTCA/LEANDER of the mid LCX 03/10/[address] Torrez [facility] Valvular heart disease (Chronic) Hypothyroidism (Chronic) Hyperlipidemia (Chronic) HTN (hypertension), benign (Chronic) S/P coronary artery stent placement (Chronic ~2017) LEANDER to mid RCA 2.5 X 24 mm Synergy [facility] [facility]; PTCA/LEANDER of the mid LCX 03/10/[address] Torrez [facility] Medical History: Medical History (Last Reviewed 07/22/18 @ 07:02 by Jono Alex MD) Nonrheumatic mitral (valve) insufficiency (Acute) I34.0 Nonrheumatic aortic (valve) insufficiency (Acute) I35.1 Nonrheumatic aortic (valve) stenosis (Chronic) I35.0 Carotid artery disease (Chronic) I77.9 Atherosclerotic heart disease of [place] coronary artery without angina pectoris (Chronic) I25.10 Chest pain (Acute) R07.9 CAD (coronary artery disease) (Acute) I25.10 Angina pectoris (Acute) I20.9 Valvular heart disease (Chronic) I38 Hypothyroidism (Chronic) E03.9 Hyperlipidemia (Chronic) E78.5 HTN (hypertension), benign (Chronic) I10 Aortic insufficiency (Inactive) I35.1 Allergies Iodinated Contrast- Oral and IV Dye Allergy (Intermediate, Verified 03/16/18 14:04) Rash ramipril [From Altace] Adverse Reaction (Severe, Verified 03/16/18 14:04) cough Home Medications: Ambulatory Orders Medication Instructions Recorded levothyroxine 88 mcg tablet 88 mcg PO DAILY 90 Days 06/10/17 nitroglycerin 0.4 mg sublingual 0.4 mg SUBLINGUAL Q5-15M PRN 10 06/10/17 tablet Days #2880 tab Ascorbic Acid [Vitamin C] 500 mg PO DAILY 01/16/18 Calcium Citrate 600 mg PO DAILY 01/16/18 Fish Oil 1 cap PO DAILY 01/16/18 Folic Acid 400 mcg PO DAILY@0800 01/16/18 Multivitamin [Daily Multiple 1 ea PO DAILY 01/16/18 Vitamin] Aspirin E.C. [Ecotrin] 81 mg PO DAILY@0800 tab 01/20/18 clopidogrel 75 mg tablet 75 mg PO QDAY #90 tab 02/03/18 Ubidecarenone [Co Q-10] 100 mg PO DAILY 03/09/18 Losartan Potassium 50 mg PO BID #60 tab 03/11/18 atorvastatin 10 mg tablet 10 mg PO DAILY 90 Days #90 tab 05/16/18 metoprolol succinate ER 100 mg 100 mg PO DAILY #90 tab 06/15/18 tablet,extended release 24 hr potassium chloride ER 10 mEq 10 meq PO QDAY #90 tab 06/15/18 tablet,extended release triamterene 37.5 1 cap PO QDAY #90 cap 06/15/18 mg-hydrochlorothiazide 25 mg capsule Surgical History: Surgical History (Last Reviewed 07/22/18 @ 07:02 by Jono Alex MD) Presence of stent in coronary artery (Chronic) Z95.5 Previous LEANDER to proxiimal to mid LAD 3.0 X 32 mm Taxus 02/23/[address] Daquan Meyer, [facility];LEANDER to mid RCA 2.5 X 24 mm Synergy [facility] [facility]; PTCA/LEANDER of the mid LCX 03/10/[address] Torrez [facility] S/P coronary artery stent placement (Chronic) Onset Date: ~2018 Z95.5 LEANDER to mid RCA 2.5 X 24 mm Synergy 01/[facility] [facility]; PTCA/LEANDER of the mid LCX 03/10/[address] Torrez [facility] History of cholecystectomy Z90.49 Surgical History: angioplasty, cholecystectomy, - - Cardiac stents in 2003. Psychiatric History: No pertinent psych hx HEEL CASER History: No pertinent HEEL CASER history Lives: Spouse/ Significant Other Smoking Status: Never smoker - *Family History Maternal Family History: Family History (Last Reviewed 07/22/18 @ 07:02 by Jono Alex MD) Mother Myocardial infarction Father Colon cancer History Items: Heart Disease - [place] Paternal Family History: Family History (Last Reviewed 07/22/18 @ 07:02 by Jono Alex MD) Mother Myocardial infarction Father Colon cancer History Items: Cancer - colon Review of Systems Constitutional: Denies: Chills, Fever, Weight Change HEENT: Denies: Head Aches, Sinus Congestion, Sinus Drainage Cardiovascular: Denies: Chest Pain, Palpitations Respiratory: Denies: Cough, Shortness of breath at rest, Sputum production Gastrointestinal: Reports: Nausea. Denies: Abdominal Pain, Vomiting Genitourinary: Denies: Dysuria Musculoskeletal: Reports: Shoulder Pain - Left. Denies: Joint Pain, Joint Tenderness Skin: Denies: Rash, Wounds Neurological: Denies: Numbness, Tingling, Focal weakness Psychiatric: Denies: Anxiety, Depression, Homicidal Ideations, Suicidal Ideations Hematologic/ Lymphatic: Denies: Easy Bruising, Easy Bleeding VTE Information - Inpt Only VTE Present on Admission: No VTE Mechan Device Prophylaxis: SCD's VTE Pharm Prophylaxis ordered?: No - Physical Exam General: Alert, Oriented x3, Cooperative HEENT: Atraumatic, EOMI, Normocephalic Neck: Supple, No JVD, Negative Carotid Bruits Lungs: Clear to auscultation, Normal air movement Cardiovascular: No murmurs, Bradycardic Abdomen: Bowel Sounds Present, Soft, Non Tender Extremities: No edema, Capillary Refill Less than 3 Seconds Skin: No rashes, No breakdown Musculoskeletal: No Tenderness to Palpation of Joints or Extremities Neurological: Neuro grossly intact Psych/Mental Status: Normal Affect, Appropriate Vital Signs Temp Pulse Resp BP Pulse Ox 98.1 F 50 L 11 L 138/52 H 96 07/22/18 04:08 07/22/18 05:44 07/22/18 05:44 07/22/18 05:44 07/22/18 05:44 Oxygen Delivery Method Room Air Weight: 77.111 kg Body Mass Index (BMI) 31.1 Laboratory Tests Past 24 Hrs 07/22/18 07/22/18 04:30 04:30 WBC 7.1 RBC 4.30 Hgb 12.8 Hct 39.0 MCV 90.7 MCH 29.8 MCHC 32.8 RDW 14.4 RDW Differential 47.1 H Plt Count 205 MPV 10.1 Immature Gran % (Auto) 0.100 Neut % (Auto) 66.4 Lymph % (Auto) 24.6 Hanson % (Auto) 6.0 Eos % (Auto) 2.5 Baso % (Auto) 0.4 Absolute Neuts (auto) 4.7 Absolute Lymphs (auto) 1.76 Total Counted Not Reportable Sodium 142 Potassium 4.6 Chloride 104 Carbon Dioxide 28.0 Anion Gap 10 BUN 21 H Creatinine 1.13 H Estim Creat Clear Calc 31.40 Est GFR (MDRD) Af Amer 60 Est GFR (MDRD) Non-Af 49 L BUN/Creatinine Ratio 18.6 Glucose 106 Calcium 9.2 Troponin I < 0.015 Assessment/Plan All Active Problems (Last Reviewed 07/22/18 @ 07:02 by Jono Alex MD) Nonrheumatic mitral (valve) insufficiency (Acute) Nonrheumatic aortic (valve) insufficiency (Acute) Chest pain (Acute) CAD (coronary artery disease) (Acute) Angina pectoris (Acute) The patient is a 82 year old F with a significant history of CAD status post 3 coronary stents in 2003, coronary stents in January 2018; and another coronary stent in February 2018 who presented with a 2-day history of episodic jaw pain that radiates to her left shoulder and her left arm. Chest pain Heart score of 5 points; moderate score (moderate suspicious, age more than 65, more than 3 risk factors or history of atherosclerotic disease) Admit to a monitored bed on PCU CXR independently reviewed confirms no acute cardiopulmonary process. EKG independently reviewed confirms sinus bradycardia with heart rate of 50. Old records reviewed depicted EKG with sinus bradycardia with heart rate of 58. ASA 81 mg p.o. daily Plavix continued We will check lipid panel. Patient is on Lipitor 10 mg daily and with co-Q10. Continue same dose of Lipitor at this time. Serial cardiac enzymes Stat EKG as needed for chest pain Discussed the case with [employer] to help stratify risk and diagnostic evaluation. We will hold off on nitroglycerin at this time pending cardiology evaluation.Morphine as needed for pain. Losartan continued. Metoprolol succinate continued. Hold if stress test ordered. Hypertension Blood pressure is fairly stable on admission Losartan ordered. Metoprolol succinate continued. Hold if stress test ordered. Triamterene/HCTZ continued Trend blood pressure and adjust blood pressure medications. Hypothyroidism Synthroid continued DVT prophylaxis SCD ordered at this time. Chemical prophylaxis was not started; consider after cardiology evaluation. Code Visit OBSV E&M: 72211 Initial observation care L3
--- NOTE | 2018-07-22 06:49 | EKG12_ITS ---
Test Reason : CP Blood Pressure : / mmHG Vent. Rate : 050 BPM Atrial Rate : 050 BPM P-R Int : 164 ms QRS Dur : 082 ms QT Int : 440 ms P-R-T Axes : 069 004 026 degrees QTc Int : 401 ms Sinus bradycardia Otherwise normal ECG Confirmed by IVA WYNN, DANA ([id number]), editor [place] ([id number]) on 07/27/2018 9:50:10 AM Referred By: ISSA Confirmed By:DANA ENRIQUE MD
--- NOTE | 2018-07-22 07:28 | PCM.CONS.C ---
Reason for Consult Date of Consultation: 07/22/18 Reason for Consultation: Jaw and shoulder pain History of Present Illness: The patient is a 82 year old F with a history of significant coronary artery disease status post multiple stenting procedures in the LAD, left circumflex artery, and right coronary artery. Her last intervention was in January 2018. She said that she had been doing well until this morning when she started experiencing jaw discomfort as well as arm discomfort. She says that this was reminiscent of her previous anginal spells. She presented to the emergency room was given sublingual nitroglycerin and aspirin with improvement in the discomfort. An EKG was done which demonstrated sinus bradycardia with no acute changes. [] She has had no neck arm or dizziness no diaphoresis no near syncope or syncope. She has been compliant with all her medications. Past Medical History Allergies/Adverse Reactions: Allergies Iodinated Contrast- Oral and IV Dye Allergy (Intermediate, Verified 03/16/18 14:04) Rash ramipril [From Altace] Adverse Reaction (Severe, Verified 03/16/18 14:04) cough Home Medications: Ambulatory Orders Medication Instructions Recorded levothyroxine 88 mcg tablet 88 mcg PO DAILY 90 Days 06/10/17 nitroglycerin 0.4 mg sublingual 0.4 mg SUBLINGUAL Q5-15M PRN 10 06/10/17 tablet Days #2880 tab Ascorbic Acid [Vitamin C] 500 mg PO DAILY 01/16/18 Calcium Citrate 600 mg PO DAILY 01/16/18 Fish Oil 1 cap PO 1200,1800 01/16/18 Folic Acid 400 mcg PO DAILY@0800 01/16/18 Multivitamin [Daily Multiple 1 ea PO DAILY 01/16/18 Vitamin] Aspirin E.C. [Ecotrin] 81 mg PO DAILY@0800 tab 01/20/18 clopidogrel 75 mg tablet 75 mg PO QDAY #90 tab 02/03/18 Ubidecarenone [Co Q-10] 100 mg PO DAILY 03/09/18 Losartan Potassium 50 mg PO BID #60 tab 03/11/18 atorvastatin 10 mg tablet 10 mg PO DAILY 90 Days #90 tab 05/16/18 metoprolol succinate ER 100 mg 100 mg PO DAILY #90 tab 06/15/18 tablet,extended release 24 hr potassium chloride ER 10 mEq 10 meq PO QDAY #90 tab 06/15/18 tablet,extended release triamterene 37.5 1 cap PO QDAY #90 cap 06/15/18 mg-hydrochlorothiazide 25 mg capsule Past Medical History (Chronic Problems): Chronic Problems (Last Reviewed 07/22/18 @ 07:02 by Jono Alex MD) Nonrheumatic aortic (valve) stenosis (Chronic) Carotid artery disease (Chronic) Atherosclerotic heart disease of [place] coronary artery without angina pectoris (Chronic) Presence of stent in coronary artery (Chronic) Previous LEANDER to proxiimal to mid LAD 3.0 X 32 mm Taxus 02/23/[address] Daquan Meyer, [facility];LEANDER to mid RCA 2.5 X 24 [facility] [facility] [facility]LE[facility] of the mid LCX 03/10/[address] Torrez [facility] Valvular heart disease (Chronic) Hypothyroidism (Chronic) Hyperlipidemia (Chronic) HTN (hypertension), benign (Chronic) S/P coronary artery stent placement (Chronic ~2018) LEANDER to mid RCA 2.5 X 24 mm [facility] [facility]/LEANDER of the mid LCX 03/10/[address] Torrez [facility] Surgical History: angioplasty, cholecystectomy, - - Cardiac stents in 2003. 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 LABORATORY TECHNICAL OFFICER history - *Family History Maternal Family History: Family History (Last Reviewed 07/22/18 @ 07:02 by Jono Alex MD) Mother Myocardial infarction Father Colon cancer History Items: Heart Disease - [place] Paternal Family History: Family History (Last Reviewed 07/22/18 @ 07:02 by Jono Alex MD) Mother Myocardial infarction Father Colon cancer History Items: Cancer - colon Lives: Spouse/ Significant Other Smoking Status: Never smoker Alcohol: None Drugs: None Review of Systems - Review of Systems General: Denies: Fever, Night Sweats, Fatigue HEENT: Denies: Vision Change Cardiovascular: Reports: Chest Tightness, - - Jaw discomfort. Denies: Chest Discomfort, Shortness of Breath, Orthopnea, PND, Peripheral Edema, Palpitations, Lightheadedness, Dizziness, Near Syncope, Syncope Respiratory: Denies: Cough, Sputum Production, Hemoptysis Gastrointestinal: Denies: Hematemesis, Hematochezia, Melena Genitourinary: Denies: Dysuria, Hematuria Muscoloskeletal: Denies: Myalgias Skin: Denies: Rash Neurological: Denies: Dizziness Psychiatric: Denies: Anxiety Endocrine: Denies: Heat Intolerance Hematologic/ Lymphatic: Denies: Anemia Subjectve: Pleasant lady in no apparent distress Objective: Vital Signs Temp Pulse Resp BP Pulse Ox 98.1 F 47 L 16 152/39 H 99 07/22/18 06:50 07/22/18 06:50 07/22/18 06:50 07/22/18 06:54 07/22/18 06:50 Oxygen Delivery Method Room Air Weight: 166 lb 10.711 oz Body Mass Index (BMI) 30.4 General: Awake, Alert, Oriented x 3 HEENT: PERRL, EOMI, Sclera Non Icteric Neck: Supple, Good ROM, No Lymph Node Enlargement Lungs: Clear to auscultation Cardiovascular: Regular Rhythm, Normal S1, Normal S2, No Murmurs, No Rubs, No Gallops Vascular: No Carotid Bruits, Normal Femoral Pulses, Normal Radial Pulses, Normal Dorsalis Pedal Pulse, Normal Posterior Tibial Pulses Abdomen: Bowel Sounds Present, Soft, Non Tender, No HSM, No Organomegaly Extremities: No Cyanosis, No Clubbing, No edema Neurological: No Focal Motor or Sensory Deficit 07/22/18 04:30: WBC 7.1, RBC 4.30, Hgb 12.8, Hct 39.0, MCV 90.7, MCH 29.8, MCHC 32.8, RDW 14.4, RDW Differential 47.1 H, Plt Count 205, MPV 10.1, Immature Gran % (Auto) 0.100, Neut % (Auto) 66.4, Lymph % (Auto) 24.6, [place] % (Auto) 6.0, Eos % (Auto) 2.5, Baso % (Auto) 0.4, Absolute Neuts (auto) 4.7, Total Counted Not Reportable 07/22/18 04:30: Sodium 142, Potassium 4.6, Chloride 104, Carbon Dioxide 28.0, Anion Gap 10, BUN 21 H, Creatinine 1.13 H, Est GFR (MDRD) Af Amer 60, Est GFR (MDRD) Non-Af 49 L, BUN/Creatinine Ratio 18.6, Glucose 106, Calcium 9.2, Troponin I < 0.015 Rhythm: EKG: Sinus rhythm with no acute changes A transthoracic echocardiogram was performed on 11/18/2014 Interpretation Summary Left ventricular systolic function is normal. The estimated ejection fraction is 65 %. The left atrium is moderately enlarged. There is mil.d mitral annular calcification. Extension of the mitral annular calcification onto the posterio mitral valve leaflet. Mild-Moderate (1-2+) mitral valve insufficiency. Mild tricuspid valve insufficiency. Mild. aortic stenosis. Mild (1+) aortic valve insufficiency. A stress test was performed on 02/13/2016 EXERCISE TOLERANCE TEST: The patient exercised on a Jenaro protocol for 6 minutes completing stage 2, achieving a peak heart rate of 133 beats per minute (93% predicted maximum heart rate) with a peak blood pressure 182/70 mmHg and a peak MET capacity of 7 METs. The baseline ECG demonstrated sinus bradycardia. The peak exercise ECG demonstrated approximately [address]-segment depression in leads II, III, aVF and V5 through V6 with resolution towards baseline beginning less than 1 minute in recovery. There was a rare PAC during recovery. There was occasional PVC during exercise and recovery. The functional capacity was considered average. The patient had no complaint of chest discomfort during exercise or recovery. The examination was discontinued secondary to dyspnea. IMPRESSION: 1. Technically adequate (percent predicted maximum heart rate greater than 85%), exercise tolerance test. 2. Peak exercise ECG with approximately [address]-segment depression in leads II, III, aVF, V5 through V6 with resolution towards baseline beginning less than 1 minute in recovery. 3. Rare PAC during recovery. 4. Occasional PVC during exercise or recovery. 5. Nuclear images pending. MYOCARDIAL PERFUSION IMAGING STUDY: TECHNIQUE: The patient was injected with 11.0 mCi of Tc99m Cardiolite and subsequently rest SPECT Cardiolite nuclear imaging was obtained in the horizontal long, vertical long and short axes views. The patient exercised on a Jenaro protocol for 6 minutes completing stage 2, achieving a peak heart rate of 133 beats per minute (93% predicted maximum heart rate) and a peak blood pressure of 182/70 mmHg and a peak MET capacity of approximately 7 METs. The patient was injected with 33.0 mCi of Tc99m Cardiolite and subsequently stress SPECT Cardiolite nuclear imaging was obtained in the horizontal long, vertical long and short axes views. A gated Cardiolite study at peak stress was obtained. INTERPRETATION: Rest and stress SPECT Cardiolite nuclear imaging, status post realignment, normalization, and attenuation correction appear to demonstrate an area of extracardiac/hepatic and gastrointestinal tracer uptake near the inferior segments. Otherwise, there appears to be relative uniform tracer uptake with the exception of a small area of subtle diminished tracer uptake near the apical segments without significant change between rest and stress. There is end systolic thickening and brightening. The gated Cardiolite study demonstrates myocardial thickening and inward wall motion. The reported LVEF was 76%. The aforementioned changes appear compatible with the effects of physiologic apical thinning with no myocardial perfusion changes considered diagnostic for associated stress-induced myocardial ischemia or previous myocardial injury/infarction. IMPRESSION: 1. Rest and stress SPECT Cardiolite nuclear imaging demonstrate myocardial perfusion changes appearing compatible with the effects of physiologic apical thinning with no myocardial perfusion changes considered diagnostic for associated stress-induced myocardial ischemia or previous myocardial injury/infarction. 2. The gated Cardiolite study reports an LVEF of 76%. A stress test was performed on 01/17/2018 Procedure: Pharmacologic stress nuclear imaging study Indications: Chest pain; CAD; status post PCI Consent: Per the patient Procedure: The patient underwent pharmacologic (Regadenoson) evaluation with a peak heart rate of 84 beats per minute (60 predicted maximal heart rate) and a peak blood pressure of 190/66 mmHg. The baseline ECG demonstrated normal sinus rhythm. The peak pharmacologic ECG demonstrated no obvious ECG changes. The postinfusion ECG demonstrated the appearance of 0.5-1 mm of horizontal/upsloping ST segment depression in leads II, III, aVF, with gradual improvement towards baseline in recovery. There were no cardiac dysrhythmias pretest, during pharmacologic infusion, or recovery. The patient noted chest/jaw discomfort during pharmacologic infusion with gradual resolution towards baseline in recovery. The examination was discontinued secondary to completion of protocol. Impression: 1. Pharmacologic (Regadenoson) evaluation 2. Peak pharmacologic ECG with with no obvious ECG changes. The postinfusion ECG demonstrated the appearance of 0.5-1 mm horizontal/upsloping ST segment depression in leads II, III, and aVF with gradual improvement towards baseline in recovery. 3. There were no cardiac dysrhythmias during pharmacologic infusion or recovery 4. Nuclear images pending Myocardial perfusion imaging study: Technique: The patient was injected with 12.0 millicuries of technetium 99m Cardiolite and subsequently rest SPECT Cardiolite nuclear imaging was obtained in the horizontal long, vertical long, and short axis views. The patient underwent pharmacologic (Regadenoson) evaluation with a peak heart rate of 84 beats per minute (60 % percent predicted maximal heart rate) and a peak blood pressure of 190/66 mmHg. The patient was injected with 35.8 millicuries of technetium 99m Cardiolite and subsequently stress SPECT Cardiolite nuclear imaging was obtained in the horizontal long, vertical long, and short axis views. A gated Cardiolite study at peak stress was obtained. Interpretation: Rest and stress SPECT Cardiolite nuclear imaging status post realignment, normalization, pre-attenuation correction, and post attenuation correction demonstrate on the pre-attenuation correction images an area of diminished tracer uptake in the mid inferior segments status post stress. These findings are less noticeable on the post attenuation correction images and otherwise there appears to be relative uniform tracer uptake. There is end systolic thickening and brightening. The gated Cardiolite study demonstrates myocardial thickening and inward wall motion. The reported LVEF is 79 %. Impression: 1. Rest and stress SPECT Cardiolite nuclear imaging pre-attenuation correction demonstrates an area of diminished tracer uptake in the mid inferior segments status post stress which appears to be less prominent on the post attenuation correction images and otherwise appears to demonstrate relative uniform tracer uptake. The aforementioned findings appear concerning for an area of stress-induced myocardial ischemia although a component of soft tissue attenuation/artifact cannot necessarily be excluded. 2. The gated Cardiolite study reports an LVEF of 79 %. Her most recent cardiac catheterization was performed on 03/10/2018 CORONARY ANGIOGRAPHY DOMINANCE: Right Dominant LEFT HEART ASSESSMENT Left Ventricular Ejection Fraction: by LV Gram 70 % Normal LV wall motion Elevated Left Ventricular End Diastolic Pressure LVEDP: 14 mmHg LEFT MAIN: Angiographically normal LEFT ANTERIOR DECENDING ARTERY: PROX LAD: Previously placed stent is patent CIRCUMFLEX ARTERY: PROX CIRC: Mild calcification, Eccentric: Hazy: 25 % Stenosis MID CIRC: Mild calcification, Eccentric: Hazy: 75 % Stenosis RIGHT CORONARY ARTERY: OSTIAL RCA: Previously placed stent is patent MID RCA: Previously placed stent is patent DISTAL RCA: Diffuse: Eccentric: 25 % Stenosis VALVE FINDINGS: LV pull back procedure: hemodynamic data not consistent with hemodynamically significant aortic valve stenosis Mitral Valve Annular Calcification: Moderate AORTIC ROOT: Angiographically normal Her most recent PCI was performed on 03/10/2018 CONCLUSIONS Successful PTCA/LEANDER Mid LCX using Elunir 2.5x12 mm Previous PCI was performed on 01/19/2018 CONCLUSIONS Successful PTCA/LEANDER of the of mid RCA with a 2.5 x 24 Promus Synergy stent, post dilated distally with a 3.0 x 8 NC Balloon at 14 radha, and post dilated throughout with same NC balloon to 10 radha. 85%-->0%, no dissection. A remote PCI was performed on 02/23/2004 at [facility] at which time she received PTCA/stent to the LAD using a LEANDER. She also had a Holter monitor on 11/16/2014 THIS IS A48 HOUR HOLTER MONITOR IN NORMAL SINUS RHYTHM WITH PERIODS OF SINUS ARRHYTHMIA. MINIMUM HEART RATE WAS 47 BPM AT 5:29:13AM Dl NO ACTIVITY OR SYMPTOM RECORDED. MAXIMUM HEART RATE WAS 90 BPM AT 10:34:17 AM D2, NO ACTIVITY OR SYMPTOM RECORDED. AVERAGE HEART RATE NOTED TO BE 59 BPM. RARE PREMATURE ATRIAL COMPLEXES. 4ATRIAL COUPLETS. 3 RUNS TOTALING 16 BEATS. THE LONGEST AND FASTEST RUN WAS 9 BEATS OF PROBABLE ECTOPIC ATRIAL RHYTHM RATE 145 BPM AT 2:01:52 PM Dl. RARE PREMATURE VENTRICULAR COMPLEXES. NO RUNS NOTED. THE PATIENT KEPT A 48 HOUR DIARY AND REPORTED DIZZINESS, WEAKNESS AND SOB WHICH DID NOT CORRELATE WITH THE SCAN. Assessment/Plan 1. Jaw discomfort The above appears to be reminiscent of her anginal equivalent. Given the fact that she has had multiple revascularization procedures after discussion with her it was felt that the best approach would be for a relook cardiac catheterization. The risks benefits alternatives have been explained to her she understands and agrees to proceed. She will be given prophylaxis against her allergies. 2. Hypertension Her blood pressure is under good control on the current medical therapy and we will continue her current medications. 3. Hyperlipidemia She does have a history of hyperlipidemia and will continue on high intensity statin. 4. Coronary artery disease As noted above she has had multiple stenting procedures. She will undergo the cardiac catheterization to reevaluate the above. Thank you for allowing me to participate in the care of your patient. Please don't hesitate to call if any issues arise Addendum: Cardiac catheterization demonstrated the following: Dominant right coronary artery with a high-grade 90% mid right coronary artery stenosis Normal left main coronary artery Left anterior descending artery with previously placed stents patent Left circumflex artery with previously placed stent with mild in-stent stenosis Preserved left ventricular systolic function Based on the above angiographic findings would recommend angioplasty and stenting of the mid right coronary artery.
--- NOTE | 2018-07-22 07:32 | CON.PCM_ITS ---
Reason for Consult Date of Consultation: 07/22/18 Reason for Consultation: Jaw and shoulder pain History of Present Illness: The patient is a 82 year old F with a history of significant coronary artery disease status post multiple stenting procedures in the LAD, left circumflex artery, and right coronary artery. Her last intervention was in January 2018. She said that she had been doing well until this morning when she started experiencing jaw discomfort as well as arm discomfort. She says that this was reminiscent of her previous anginal spells. She presented to the emergency room was given sublingual nitroglycerin and aspirin with improvement in the discomfort. An EKG was done which demonstrated sinus bradycardia with no acute changes. [] She has had no neck arm or dizziness no diaphoresis no near syncope or syncope. She has been compliant with all her medications. Past Medical History Allergies/Adverse Reactions: Allergies Iodinated Contrast- Oral and IV Dye Allergy (Intermediate, Verified 03/16/18 14:04) Rash ramipril [From Altace] Adverse Reaction (Severe, Verified 03/16/18 14:04) cough Home Medications: Ambulatory Orders Medication Instructions Recorded levothyroxine 88 mcg tablet 88 mcg PO DAILY 90 Days 06/10/17 nitroglycerin 0.4 mg sublingual 0.4 mg SUBLINGUAL Q5-15M PRN 10 06/10/17 tablet Days #2880 tab Ascorbic Acid [Vitamin C] 500 mg PO DAILY 01/16/18 Calcium Citrate 600 mg PO DAILY 01/16/18 Fish Oil 1 cap PO 1200,1800 01/16/18 Folic Acid 400 mcg PO DAILY@0800 01/16/18 Multivitamin [Daily Multiple 1 ea PO DAILY 01/16/18 Vitamin] Aspirin E.C. [Ecotrin] 81 mg PO DAILY@0800 tab 01/20/18 clopidogrel 75 mg tablet 75 mg PO QDAY #90 tab 02/03/18 Ubidecarenone [Co Q-10] 100 mg PO DAILY 03/09/18 Losartan Potassium 50 mg PO BID #60 tab 03/11/18 atorvastatin 10 mg tablet 10 mg PO DAILY 90 Days #90 tab 05/16/18 metoprolol succinate ER 100 mg 100 mg PO DAILY #90 tab 06/15/18 tablet,extended release 24 hr potassium chloride ER 10 mEq 10 meq PO QDAY #90 tab 06/15/18 tablet,extended release triamterene 37.5 1 cap PO QDAY #90 cap 06/15/18 mg-hydrochlorothiazide 25 mg capsule Past Medical History (Chronic Problems): Chronic Problems (Last Reviewed 07/22/18 @ 07:02 by Jono Alex MD) Nonrheumatic aortic (valve) stenosis (Chronic) Carotid artery disease (Chronic) Atherosclerotic heart disease of [place] coronary artery without angina pectoris (Chronic) Presence of stent in coronary artery (Chronic) Previous LEANDER to proxiimal to mid LAD 3.0 X 32 mm Taxus 02/23/[address] Daquan Meyer, [facility];LEANDER to mid RCA 2.5 X 24 [facility] [facility] of the mid LCX 03/10/[address] Torrez [facility] Valvular heart disease (Chronic) Hypothyroidism (Chronic) Hyperlipidemia (Chronic) HTN (hypertension), benign (Chronic) S/P coronary artery stent placement (Chronic ~2018) LEANDER to mid RCA 2.5 X 24 [facility] [facility]LEANDER of the mid LCX 03/10/[address] Torrez [facility] Surgical History: angioplasty, cholecystectomy, - - Cardiac stents in 2003. 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 - *Family History Maternal Family History: Family History (Last Reviewed 07/22/18 @ 07:02 by Jono Alex MD) Mother Myocardial infarction Father Colon cancer History Items: Heart Disease - [place] Paternal Family History: Family History (Last Reviewed 07/22/18 @ 07:02 by Jono Alex MD) Mother Myocardial infarction Father Colon cancer History Items: Cancer - colon Lives: Spouse/ Significant Other Smoking Status: Never smoker Alcohol: None Drugs: None Review of Systems - Review of Systems General: Denies: Fever, Night Sweats, Fatigue HEENT: Denies: Vision Change Cardiovascular: Reports: Chest Tightness, - - Jaw discomfort. Denies: Chest Discomfort, Shortness of Breath, Orthopnea, PND, Peripheral Edema, Palpitations, Lightheadedness, Dizziness, Near Syncope, Syncope Respiratory: Denies: Cough, Sputum Production, Hemoptysis Gastrointestinal: Denies: Hematemesis, Hematochezia, Melena Genitourinary: Denies: Dysuria, Hematuria Muscoloskeletal: Denies: Myalgias Skin: Denies: Rash Neurological: Denies: Dizziness Psychiatric: Denies: Anxiety Endocrine: Denies: Heat Intolerance Hematologic/ Lymphatic: Denies: Anemia Subjectve: Pleasant lady in no apparent distress Objective: Vital Signs Temp Pulse Resp BP Pulse Ox 98.1 F 47 L 16 152/39 H 99 07/22/18 06:50 07/22/18 06:50 07/22/18 06:50 07/22/18 06:54 07/22/18 06:50 Oxygen Delivery Method Room Air Weight: 166 lb 10.711 oz Body Mass Index (BMI) 30.4 General: Awake, Alert, Oriented x 3 HEENT: PERRL, EOMI, Sclera Non Icteric Neck: Supple, Good ROM, No Lymph Node Enlargement Lungs: Clear to auscultation Cardiovascular: Regular Rhythm, Normal S1, Normal S2, No Murmurs, No Rubs, No Gallops Vascular: No Carotid Bruits, Normal Femoral Pulses, Normal Radial Pulses, Normal Dorsalis Pedal Pulse, Normal Posterior Tibial Pulses Abdomen: Bowel Sounds Present, Soft, Non Tender, No HSM, No Organomegaly Extremities: No Cyanosis, No Clubbing, No edema Neurological: No Focal Motor or Sensory Deficit 07/22/18 04:30: WBC 7.1, RBC 4.30, Hgb 12.8, Hct 39.0, MCV 90.7, MCH 29.8, MCHC 32.8, RDW 14.4, RDW Differential 47.1 H, Plt Count 205, MPV 10.1, Immature Gran % (Auto) 0.100, Neut % (Auto) 66.4, Lymph % (Auto) 24.6, [place] % (Auto) 6.0, Eos % (Auto) 2.5, Baso % (Auto) 0.4, Absolute Neuts (auto) 4.7, Total Counted Not R eportable 07/22/18 04:30: Sodium 142, Potassium 4.6, Chloride 104, Carbon Dioxide 28.0, Anion Gap 10, BUN 21 H, Creatinine 1.13 H, Est GFR (MDRD) Af Amer 60, Est GFR (MDRD) Non-Af 49 L, BUN/Creatinine Ratio 18.6, Glucose 106, Calcium 9.2, Troponin I < 0.015 Rhythm: EKG: Sinus rhythm with no acute changes A transthoracic echocardiogram was performed on 11/18/2014 Interpretation Summary Left ventricular systolic function is normal. The estimated ejection fraction is 65 %. The left atrium is moderately enlarged. There is mil.d mitral annular calcification. Extension of the mitral annular calcification onto the posterio mitral valve leaflet. Mild-Moderate (1-2+) mitral valve insufficiency. Mild tricuspid valve insufficiency. Mild. aortic stenosis. Mild (1+) aortic valve insufficiency. A stress test was performed on 02/13/2016 EXERCISE TOLERANCE TEST: The patient exercised on a Jenaro protocol for 6 minutes completing stage 2, achieving a peak heart rate of 133 beats per minute (93% predicted maximum heart rate) with a peak blood pressure 182/70 mmHg and a peak MET capacity of 7 METs. The baseline ECG demonstrated sinus bradycardia. The peak exercise ECG demonstrated approximately [address]-segment depression in leads II, III, aVF and V5 through V6 with resolution towards baseline beginning less than 1 minute in recovery. There was a rare PAC during recovery. There was occasional PVC during exercise and recovery. The functional capacity was considered average. The patient had no complaint of chest discomfort during exercise or recovery. The examination was discontinued secondary to dyspnea. IMPRESSION: 1. Technically adequate (percent predicted maximum heart rate greater than 85%), exercise tolerance test. 2. Peak exercise ECG with approximately [address]-segment depression in leads II, III, aVF, V5 through V6 with resolution towards baseline beginning less than 1 minute in recovery. 3. Rare PAC during recovery. 4. Occasional PVC during exercise or recovery. 5. Nuclear images pending. MYOCARDIAL PERFUSION IMAGING STUDY: TECHNIQUE: The patient was injected with 11.0 mCi of Tc99m Cardiolite and subsequently rest SPECT Cardiolite nuclear imaging was obtained in the horizontal long, vertical long and short axes views. The patient exercised on a Jenaro protocol for 6 minutes completing stage 2, achieving a peak heart rate of 133 beats per minute (93% predicted maximum heart rate) and a peak blood pressure of 182/70 mmHg and a peak MET capacity of approximately 7 METs. The patient was injected with 33.0 mCi of Tc99m Cardiolite and subsequently stress SPECT Cardiolite nuclear imaging was obtained in the horizontal long, vertical long and short axes views. A gated Cardiolite study at peak stress was obtained. INTERPRETATION: Rest and stress SPECT Cardiolite nuclear imaging, status post realignment, normalization, and attenuation correction appear to demonstrate an area of extracardiac/hepatic and gastrointestinal tracer uptake near the inferior segments. Otherwise, there appears to be relative uniform tracer uptake with the exception of a small area of subtle diminished tracer uptake near the apical segments without significant change between rest and stress. There is end systolic thickening and brightening. The gated Cardiolite study demonstrates myocardial thickening and inward wall motion. The reported LVEF was 76%. The aforementioned changes appear compatible with the effects of physiologic apical thinning with no myocardial perfusion changes considered diagnostic for associated stress-induced myocardial ischemia or previous myocardial injury/infarction. IMPRESSION: 1. Rest and stress SPECT Cardiolite nuclear imaging demonstrate myocardial perfusion changes appearing compatible with the effects of physiologic apical thinning with no myocardial perfusion changes considered diagnostic for associated stress-induced myocardial ischemia or previous myocardial injury/infarction. 2. The gated Cardiolite study reports an LVEF of 76%. A stress test was performed on 01/17/2018 Procedure: Pharmacologic stress nuclear imaging study Indications: Chest pain; CAD; status post PCI Consent: Per the patient Procedure: The patient underwent pharmacologic (Regadenoson) evaluation with a peak heart rate of 84 beats per minute (60 predicted maximal heart rate) and a peak blood pressure of 190/66 mmHg. The baseline ECG demonstrated normal sinus rhythm. The peak pharmacologic ECG demonstrated no obvious ECG changes. The postinfusion ECG demonstrated the appearance of 0.5-1 mm of horizontal/upsloping ST segment depression in leads II, III, aVF, with gradual improvement towards baseline in recovery. There were no cardiac dysrhythmias pretest, during pharmacologic infusion, or recovery. The patient noted chest/jaw discomfort during pharmacologic infusion with gradu al resolution towards baseline in recovery. The examination was discontinued secondary to completion of protocol. Impression: 1. Pharmacologic (Regadenoson) evaluation 2. Peak pharmacologic ECG with with no obvious ECG changes. The postinfusion ECG demonstrated the appearance of 0.5-1 mm horizontal/upsloping ST segment depression in leads II, III, and aVF with gradual improvement towards baseline in recovery. 3. There were no cardiac dysrhythmias during pharmacologic infusion or recovery 4. Nuclear images pending Myocardial perfusion imaging study: Technique: The patient was injected with 12.0 millicuries of technetium 99m Cardiolite and subsequently rest SPECT Cardiolite nuclear imaging was obtained in the horizontal long, vertical long, and short axis views. The patient underwent pharmacologic (Regadenoson) evaluation with a peak heart rate of 84 beats per minute (60 % percent predicted maximal heart rate) and a peak blood pressure of 190/66 mmHg. The patient was injected with 35.8 millicuries of technetium 99m Cardiolite and subsequently stress SPECT Cardiolite nuclear imaging was obtained in the horizontal long, vertical long, and short axis views. A gated Cardiolite study at peak stress was obtained. Interpretation: Rest and stress SPECT Cardiolite nuclear imaging status post realignment, normalization, pre-attenuation correction, and post attenuation correction demonstrate on the pre-attenuation correction images an area of diminished tracer uptake in the mid inferior segments status post stress. These findings are less noticeable on the post attenuation correction images and otherwise there appears to be relative uniform tracer uptake. There is end systolic thickening and brightening. The gated Cardiolite study demonstrates myocardial thickening and inward wall motion. The reported LVEF is 79 %. Impression: 1. Rest and stress SPECT Cardiolite nuclear imaging pre-attenuation correction demonstrates an area of diminished tracer uptake in the mid inferior segments status post stress which appears to be less prominent on the post attenuation correction images and otherwise appears to demonstrate relative uniform tracer uptake. The aforementioned findings appear concerning for an area of stress- induced myocardial ischemia although a component of soft tissue attenuation/artifact cannot necessarily be excluded. 2. The gated Cardiolite study reports an LVEF of 79 %. Her most recent cardiac catheterization was performed on 03/10/2018 CORONARY ANGIOGRAPHY DOMINANCE: Right Dominant LEFT HEART ASSESSMENT Left Ventricular Ejection Fraction: by LV Gram 70 % Normal LV wall motion Elevated Left Ventricular End Diastolic Pressure LVEDP: 14 mmHg LEFT MAIN: Angiographically normal LEFT ANTERIOR DECENDING ARTERY: PROX LAD: Previously placed stent is patent CIRCUMFLEX ARTERY: PROX CIRC: Mild calcification, Eccentric: Hazy: 25 % Stenosis MID CIRC: Mild calcification, Eccentric: Hazy: 75 % Stenosis RIGHT CORONARY ARTERY: OSTIAL RCA: Previously placed stent is patent MID RCA: Previously placed stent is patent DISTAL RCA: Diffuse: Eccentric: 25 % Stenosis VALVE FINDINGS: LV pull back procedure: hemodynamic data not consistent with hemodynamically significant aortic valve stenosis Mitral Valve Annular Calcification: Moderate AORTIC ROOT: Angiographically normal Her most recent PCI was performed on 03/10/2018 CONCLUSIONS Successful PTCA/LEANDER Mid LCX using Elunir 2.5x12 mm Previous PCI was performed on 01/19/2018 CONCLUSIONS Successful PTCA/LEANDER of the of mid RCA with a 2.5 x 24 Promus Synergy stent, post dilated distally with a 3.0 x 8 NC Balloon at 14 radha, and post dilated throughout with same NC balloon to 10 radha. 85%-->0%, no dissection. A remote PCI was performed on 02/23/2004 at [facility] at which time she received PTCA/stent to the LAD using a LEANDER. She also had a Holter monitor on 11/16/2014 THIS IS A48 HOUR HOLTER MONITOR IN NORMAL SINUS RHYTHM WITH PERIODS OF SINUS ARRHYTHMIA. MINIMUM HEART RATE WAS 47 BPM AT 5:29:13AM Dl NO ACTIVITY OR SYMPTOM RECORDED. MAXIMUM HEART RATE WAS 90 BPM AT 10:34:17 AM D2, NO ACTIVITY OR SYMPTOM RECORDED. AVERAGE HEART RATE NOTED TO BE 59 BPM. RARE PREMATURE ATRIAL COMPLEXES. 4ATRIAL COUPLETS. 3 RUNS TOTALING 16 BEATS. THE LONGEST AND FASTEST RUN WAS 9 BEATS OF PROBABLE ECTOPIC ATRIAL RHYTHM RATE 145 BPM AT 2:01:52 PM Dl. RARE PREMATURE VENTRICULAR COMPLEXES. NO RUNS NOTED. THE PATIENT KEPT A 48 HOUR DIARY AND REPORTED DIZZINESS, WEAKNESS AND SOB WHICH DID NOT CORRELATE WITH THE SCAN. Assessment/Plan 1. Jaw discomfort * The above appears to be reminiscent of her anginal equivalent. Given the fact that she has had multiple revascularization procedures after discussion with her it was felt that the best approach would be for a relook cardiac catheterization. The risks benefits alternatives have been explained to her she understands and agrees to proceed. She will be given prophylaxis against her allergies. * 2. Hypertension * Her blood pressure is under good control on the current medical therapy and we will continue her current medications. * 3. Hyperlipidemia * She does have a history of hyperlipidemia and will continue on high intensity statin. * 4. Coronary artery disease * As noted above she has had multiple stenting procedures. She will undergo the cardiac catheterization to reevaluate the above. * * Thank you for allowing me to participate in the care of your patient. Please don't hesitate to call if any issues arise * Addendum: Cardiac catheterization demonstrated the following: Dominant right coronary artery with a high-grade 90% mid right coronary artery stenosis Normal left main coronary artery Left anterior descending artery with previously placed stents patent Left circumflex artery with previously placed stent with mild in-stent stenosis Preserved left ventricular systolic function Based on the above angiographic findings would recommend angioplasty and stenting of the mid right coronary artery.
[2018-07-22 08:39] LABS: Prothrombin Time (Protime)PT. 13.2 SECONDS (11.7-14.9)
[2018-07-22 08:44] LABS: Partial Thromboplast Time 26.9 Seconds (24.1-36.2)
--- NOTE | 2018-07-22 09:07 | CL.D_ITS ---
Patient Name: PRECIOUS LEIGH Study Date: 07/22/2018 Performing: Ang Laura MD Ht: 61.81 inches 157 cm : 1935 Wt: 167.55 lbs 76 kg Age: 82 Gender: female BSA: 1.77 PROCEDURE(S) PERFORMED [id number]/COR/LV CLINICAL PROFILE AND INDICATIONS Indications: Worsening Angina Heart Failure: None Stress/Imaging Stress/Image Study Performed: No CAD Presentations: Unstable angina. CONCLUSIONS Severe right coronary artery stenosis of approximately 90% appears to be in-stent., Mild LAD in-sten t stenosis, mild resighini circumflex artery stenosis, preserved left ventricular systolic function. Es sential hypertension. RECOMMENDATIONS Referred for immediate PCI DESCRIPTION OF PROCEDURE The patient arrived to the procedure lab. The risks and benefits of the procedure as well as a full d escription of our services here and current unavailability of surgical backup were fully explained to the patient and/or their significant other prior to the catheterization. The Timeout was completed, verifying the correct patient and procedure. The patient's procedural site was prepped and draped in the usual fashion. Local anesthetic was given subcutaneously to right groin region with Lidocaine 2%. Using a modified Seldinger technique, arterial access was obtained via the right femoral artery, a 5 Fr sheath was inserted. Left Coronary Artery selective angiography was performed in multiple views u sing a 5 Fr. JL4 catheter. Right Coronary Artery selective angiography was then performed in multiple views using a 5 Fr. 3DRC (Ilan) catheter. Left Ventriculography was performed in BECERRA projection using a 5 Fr. Pigtail catheter. LV to AO pullback pressures were then recorded. CORONARY ANGIOGRAPHY DOMINANCE: Right Dominant LEFT HEART ASSESSMENT Left Ventricular Ejection Fraction: by LV Gram 60 % Normal Left Ventricular systolic function LEFT MAIN: Mild calcification, Angiographically normal LEFT ANTERIOR DECENDING ARTERY: Mild luminal irregularities MID LAD: Previously placed stent is patent CIRCUMFLEX ARTERY: PROX CIRC: Moderate luminal irregularities up to 50% RIGHT CORONARY ARTERY: Instent restenosis 90 % COMPLICATIONS PROCEDURE MEDICATIONS Versed 1 mg IV Versed 1 mg IV Oxygen: 2 L/min via nasal cannula Benadryl 25 mg IV 07/22/2018 08:32:53 Baby Aspirin (81mg) 1 Tabs PO @ 07/22/2018 08:33:17 Plavix 75 mg PO 07/22/2018 08:33:25 Solu-medrol 125 mg IV 07/22/2018 08:33:02 SUMMARY OF HEMODYNAMIC DATA Time AIR REST ECG 08:31:24 AO 169/47 (90) SA 08:41:29 LV 171/0, 6 08:48:41 LV 172/1, 5 08:48:48 LV 159/22, 23 08:49:54 LV 179/-18, 5 08:50:12 LVp 196/-19, 18 08:50:17 AOp 190/52 (104) 08:50:22 Signed By Ang Laura MD On 07/22/2018 9:05:45 AM Ang Laura MD
--- NOTE | 2018-07-22 10:07 | EKG12_ITS ---
Test Reason : Blood Pressure : / mmHG Vent. Rate : 053 BPM Atrial Rate : 053 BPM P-R Int : 154 ms QRS Dur : 082 ms QT Int : 452 ms P-R-T Axes : 066 004 048 degrees QTc Int : 424 ms Sinus bradycardia Nonspecific ST abnormality Abnormal ECG When compared with ECG of 22-JUL-2018 07:04, MANUAL COMPARISON REQUIRED, DATA IS UNCONFIRMED Confirmed by IVA WYNN, DANA ([id number]), production editor RIVERA EASTON ([id number]) on 07/27/2018 11:27:30 AM Referred By: POST STENT STEINER Confirmed By:DANA ENRIQUE MD
--- NOTE | 2018-07-22 10:12 | CL.I_ITS ---
Patient Name: PRECIOUS LEIGH Study Date: 07/22/2018 Performing: Olvin Patel MD Ht: 61.81 inches 157 cm : 1935 Wt: 167.55 lbs 76 kg Age: 82 Gender: female BSA: 1.77 PROCEDURE(S) PERFORMED [id number] W OR WO PTCA, SINGLE CORONARY ARTERY CLINICAL PROFILE AND CO-MORBIDITIES Indications: Worsening Angina, New Onset Angina <= 2 months, Stable Known CAD Heart Failure: None Stress/Imaging Stress/Image Study Performed: No Stress/Image Study Performed: No Angina Classification Anginal Classification w/in 2 Weeks: CCS III CAD Presentations: Unstable angina. Unstable angina. Comorbidities/Risk Factors: Hypertension Dyslipidemia Prior PCI CONCLUSIONS Successful PTCA/LEANDER mid RCA with a 2.0 x 12balloon, followed by a 2.0 x 10 Angiosculpt, followed by a 2.5 x 16 Promus Synergy, post dilated with a 2.5 x 8 NC Balloon; 85%-->0%, no dissection. RECOMMENDATIONS Highly recommend quitting all tobacco products Follow up with primary aspnet developer Risk factor modification ASA Indefinitley Plavix for at least 12 months Routine post interventional care Refer for Outpatient Cardiac Rehab Manual sheath removal per protocol Follow up with Dr. Laura Manual sheath removal. DESCRIPTION OF PROCEDURE The patient arrived to the procedure lab. The risks and benefits of the procedure as well as a full d escription of our services here and current unavailability of surgical backup were fully explained to the patient and/or their significant other prior to the catheterization. The Timeout was completed, verifying the correct patient and procedure. The patient's procedural site was prepped and draped in the usual fashion. Local anesthetic was given subcutaneously to right groin region with Lidocaine 2% Using a modified Seldinger technique,arterial access was obtained via the right femoral artery, a 5Fr sheath was inserted. Left Coronary Artery selective angiography was performed in multiple views usin g a 5 Fr. JL4 catheter. Right Coronary Artery selective angiography was then performed in multiple vi ews using a 5 Fr. 3DRC (Ilan) catheter. Left Ventriculography was performed in BECERRA projection usi ng a 5 Fr. Pigtail catheter. LV to AO pullback pressures were then recorded.The images were reviewed and options discussed. A decision was then made to proceed with an Intervention, IVUS o r other adjunct procedure. Arterial sheath was exchanged for a 6 Fr Sheath. Angiogram performed pre balloon dilatation. hs 2 Guide catheter was inserted and engaged into the RCA. bmw Guide wire was advanced to the RCA. emerge 2.00 x 12 Balloon catheter was advanced across lesion in the right coronary, mid. PTCA balloon infla ivonne at 6 atms for 7 secs. PTCA balloon inflated at 8 atms for 11 secs. Angiogram performed post ballo on dilatation. angioscult 2 x 10 Balloon catheter was advanced across lesion in the right coronary, m id. synergy 2.5 x 16 Drug Eluting stent was advanced across the lesion in the right coronary, mid. An giogram performed pre stent deployment. nc emerge 2.5 x 12 Balloon catheter was advanced across lesio n in the right coronary, mid. Angiogram performed post balloon dilatation. The arterial sheath was sutured in place and capped INTERVENTION INFORMATION LESION SITE: RCA (Mid) Lesion Complexity: Non-High/Non-C, lesion at bifurcation: No, thrombus present: No, lesion length: 16 mm, culprit lesion: Yes Pre Stenosis: 85 % Pre intervention LUIS flow: 3 PROCEDURE: Drug Eluting Stent with pre and post dilatation Post Stenosis: 0 % Post intervention LUIS flow: 3 Lesion Devices: Willie Sci EMERGE MR 2.00x12 BALLOON Mckoy .014 BMW Luke Straight 190cm Medtronic 6 Fr HSII 100cm Guide Catheter Mango DSP Angiosculpt RX 2.0x10 Scoring Balloon Willie Sci Synergy MR LEANDER 2.50x16 Willie Sci NC EMERGE MR 2.50x12 BALLOON COMPLICATIONS No Complications PROCEDURE MEDICATIONS Versed 1 mg IV Versed 1 mg IV Oxygen: 2 L/min via nasal cannula Benadryl 25 mg IV 07/22/2018 08:32:53 Baby Aspirin (81mg) 1 Tabs PO @ 07/22/2018 08:33:17 Heparin 6000 unit(s) IV 07/22/2018 09:29:16 Nitro Tab 0.4 mg PO 07/22/2018 09:46:42 Nitro glycerin 25mg / 250ml D5W @ 5 mcg/min IV started 07/22/2018 09:49:10 Plavix 75 mg PO 07/22/2018 08:33:25 Solu-medrol 125 mg IV 07/22/2018 08:33:02 SUMMARY OF HEMODYNAMIC DATA Time AIR REST ECG 08:31:24 AO 169/47 (90) SA 08:41:29 LV 171/0, 6 08:48:41 LV 172/1, 5 08:48:48 LV 159/22, 23 08:49:54 LV 179/-18, 5 08:50:12 LVp 196/-19, 18 08:50:17 AOp 190/52 (104) 08:50:22 Signed By Olvin Patel MD On 07/22/2018 10:11:15 AM Olvin Patel MD
[2018-07-22] MEDS: 0.9% Normal Saline 1,000 ML 150 ML IV (10:30)
--- NOTE | 2018-07-22 10:57 | CRPHASE1 ---
Patient Data/Charges Reason Not Completed:: PREVIOUS CR PATIENT FROM APR 2018 Risk Factors/Lifestyle Family History: Family History (Last Reviewed 07/22/18 @ 07:02 by Jono Alex MD) Mother Myocardial infarction Father Colon cancer
--- NOTE | 2018-07-22 10:58 | CRPH1.INSTRU ---
General Education CAD and cardiac anatomy and function:: Not instructed Explanation of diagnoses and procedures:: Not instructed Sign/Symptoms of [place]:: Not instructed Antiplatelet therapy: Not instructed Proper use of NTG-SL: Not instructed Emergency procedures and activation of EMS: Not instructed Compliance of all prescribed medications: Not instructed - NOT INSTRUCTED D/T PREVIOUS STENT WITH CR IN APR 2018
[2018-07-22 11:21] LABS: ACT Activated Clotting Time 241 sec (74-137)
[2018-07-22] MEDS: Folic Acid 1 MG Tablet 0.5 MG PO (12:23)
[2018-07-22] MEDS: Triamterene 37.5MG/Hctz 25MG Capsule 1 CAP PO (12:23)
[2018-07-22] MEDS: Losartan Potassium 50 MG Tablet PO ×2 (12:23→21:15)
[2018-07-22] MEDS: Multivitamins,Therapeutic Tablet 1 TABLET PO (12:23)
[2018-07-22] MEDS: Calcium Carbonate 500 MG Tablet PO (12:24)
[2018-07-22] MEDS: Levothyroxine 88 MCG Tablet PO (12:24)
[2018-07-22 12:51] LABS: ACT Activated Clotting Time 153 sec (74-137)
--- NOTE | 2018-07-22 15:25 | PCM.PN.BLA ---
Progress Note Patient is scheduled with the [facility] to see Bryant Mcdaniels Nurse Practitioner, on 08/07/18 at 10:30 AM.
[2018-07-22] MEDS: Metoprolol(XL)Succ 50 MG Tablet PO (15:43)
[2018-07-22] MEDS: Atorvastatin Calcium 10 MG Tablet PO (21:15)
[2018-07-23] VITALS (16 sets, daily range): BP systolic 121–153; BP diastolic 30–69; PULSE 50–63; RESP 10–21; TEMP 36.9–37.1; O2SAT 92–96
[2018-07-23 04:23] LABS: Hematocrit 38.7 % (37-47); Hemoglobin 12.8 g/dl (12.0-15.0); Mean Corp Hgb Conc 33.1 g/gl (32-36); Mean Corpuscular Hgb 29.9 pg (27.0-32.0); Mean Corpuscular Volume 90.4 fL (81-99); Mean Platelet Vol. 10.3 fl (6.2-12.0); Platelet Count 264 K/mm3 (150-450); RBC Distribution Width CV 14.3 % (11.6-14.6); RBC Distribution Width SD 46.2 fl (35.1-43.9); Red Blood Count 4.28 M/mm3 (4.2-5.4); Scan Indicated on CBC? Y/N NO; White Blood Count 16.8 K/mm3 (4.4-11.0)
[2018-07-23 04:45] LABS: Anion Gap 8 (5-15); BUN 28 mg/dL (7-18); Calcium,Total 8.9 mg/dL (8.5-10.1); Chloride 105 mmol/L (98-107); Cholesterol 133 mg/dL (200); Creatinine, Serum 1.27 mg/dL (0.55-1.02); EST Glomerular Filtration Rate 43 mL/min (>60); Est Glom Filt Rate - Afr Amer 52 mL/min (>60); Estimated Creatinine Clearance 27.94 ml/min; Glucose 138 mg/dL (74-106); High Density Lipoprotein 44 mg/dL; Potassium 4.3 mmol/L (3.5-5.1); Sodium Level 141 mmol/L (136-145); Triglycerides 120 mg/dL; Very Low Density Lipoprotein 24 mg/dL (5-40)
[2018-07-23] MEDS: 0.9% NaCl Peripheral Flush Adult/Peds IV (05:54)
[2018-07-23] MEDS: Levothyroxine 88 MCG Tablet PO (05:54)
[2018-07-23] MEDS: amLODIPine 10 MG Tablet PO (06:43)
--- NOTE | 2018-07-23 06:47 | PN.CARD_ITS ---
Subjectve: Patient seen and evaluated. Appears to be doing better this morning. No jaw pain or neck pain. Objective: Vital Signs Temp Pulse Resp BP Pulse Ox 98.4 F 54 L 13 146/33 H 96 07/23/18 04:00 07/23/18 06:00 07/23/18 06:00 07/23/18 06:00 07/23/18 06:00 Oxygen Flow Rate (L/min) 2 Oxygen Delivery Method Room Air Weight: 170 lb 3.15 oz Body Mass Index (BMI) 30.4 Intake and Output for Last 24 Hours 07/21/18 07/22/18 07/23/18 23:59 23:59 23:59 Intake Total 1025 / 1025 531.7 / 531.7 Balance 1025 / 1025 531.7 / 531.7 General: Awake, Alert, Oriented x 3 HEENT: PERRL, EOMI, Sclera Non Icteric Neck: Supple, Good ROM, No Lymph Node Enlargement Lungs: Clear to auscultation Cardiovascular: Regular Rhythm, Normal S1, Normal S2, No Murmurs, No Rubs, No Gallops Vascular: No Carotid Bruits, Normal Femoral Pulses, Normal Radial Pulses, Normal Dorsalis Pedal Pulse, Normal Posterior Tibial Pulses Abdomen: Bowel Sounds Present, Soft, Non Tender, No HSM, No Organomegaly Extremities: No Cyanosis, No Clubbing, No edema Neurological: No Focal Motor or Sensory Deficit 07/22/18 04:31: PT 13.2, INR 1.0, APTT 26.9 07/22/18 07:30: Troponin I < 0.015 07/22/18 12:30: Troponin I < 0.015 07/23/18 04:05: Sodium 141, Potassium 4.3, Chloride 105, Carbon Dioxide 28.0, Anion Gap 8, BUN 28 H, Creatinine 1.27 H, Est GFR (MDRD) Af Amer 52 L, Est GFR (MDRD) Non-Af 43 L, BUN/Creatinine Ratio 22.0 H, Glucose 138 H, Calcium 8.9, Triglycerides 120, Cholesterol 133, LDL Cholesterol 65, VLDL Cholesterol 24, HDL Cholesterol 44 07/23/18 04:05: WBC 16.8 H, RBC 4.28, Hgb 12.8, Hct 38.7, MCV 90.4, MCH 29.9, MCHC 33.1, RDW 14.3, RDW Differential 46.2 H, Plt Count 264, MPV 10.3 Rhythm: EKG: ECHO: Stress Test: Cardiac Cath: PCI: CT Surgery: Holter monitor: EPS: PPM: CXR: Chest CT Scan: Medical Necessity - Tobacco Use Smoking Status: Never smoker Assessment/Plan 1. Jaw discomfort * The above appears to be reminiscent of her anginal equivalent. Cardiac catheterization demonstrated the following: Dominant right coronary artery with a high-grade 90% mid right coronary artery stenosis Normal left main coronary artery Left anterior descending artery with previously placed stents patent Left circumflex artery with previously placed stent with mild in-stent stenosis Preserved left ventricular systolic function Based on the above angiographic findings she underwent stenting of the mid right coronary artery. This morning she is doing well. Groin demonstrates no evidence of hematoma. EKG is normal. And blood work is normal. White count is elevated due to the steroids for dye prophylaxis. 2. Hypertension * Her blood pressure is under fair control on the current medical therapy and we will continue her current medications. Will suggest the addition of amlodipine 10 mg daily * 3. Hyperlipidemia * She does have a history of hyperlipidemia and will continue on high intensity statin. * 4. Coronary artery disease * As noted above she has had multiple stenting procedures. She will undergo the cardiac catheterization to reevaluate the above. * * Thank you for allowing me to participate in the care of your patient. Please don't hesitate to call if any issues arise * Patient can be discharged later today for outpatient follow-up with her primary beef splitter Dr. Madera.
[2018-07-23] MEDS: Aspirin E.C. 81 MG Tablet PO (07:50)
[2018-07-23] MEDS: Metoprolol(XL)Succ 50 MG Tablet PO (07:51)
[2018-07-23] MEDS: Clopidogrel Bisulfate 75 MG Tablet PO (07:51)
[2018-07-23] MEDS: Folic Acid 1 MG Tablet 0.5 MG PO (07:51)
[2018-07-23] MEDS: Losartan Potassium 50 MG Tablet PO (07:51)
[2018-07-23] MEDS: Multivitamins,Therapeutic Tablet 1 TABLET PO (07:51)
--- NOTE | 2018-07-23 08:50 | DCINST_ITS ---
You will use the following diet at home:: Calorie/Carbohydrate Controlled (specify 1200, 1400, etc), Cardiac Your food should be the consistency of: Regular Your liquids should be the consistency of: Regular/Thin Discharge Activity: Return to Normal Activity Call your doctor if your incision/area has: Sudden Increased Bleeding, Increased Pain/ Swelling, Increased Redness Call your doctor if you observe: Fever of 101 or Higher, Shortness of breath, Dizziness, Fainting spells, Chest pain, Increased palpitations (irregular heartbeat) Allergies/Adverse Reactions: Allergies Iodinated Contrast- Oral and IV Dye Allergy (Intermediate, Verified 03/16/18 14:04) Rash ramipril [From Altace] Adverse Reaction (Severe, Verified 03/16/18 14:04) cough Medications to take at Discharge levothyroxine 88 mcg tablet 88 mcg PO DAILY 90 Days 06/10/17 nitroglycerin 0.4 mg sublingual tablet 0.4 mg SUBLINGUAL Q5-15M PRN 10 Days #2880 tab 06/10/17 Ascorbic Acid [Vitamin C] 500 mg PO DAILY 01/16/18 Calcium Citrate 600 mg PO DAILY 01/16/18 Fish Oil 1 cap PO 1200,1800 01/16/18 Folic Acid 400 mcg PO DAILY@0800 01/16/18 Multivitamin [Daily Multiple Vitamin] 1 ea PO DAILY 01/16/18 Aspirin E.C. [Ecotrin] 81 mg PO DAILY@0800 tab 01/20/18 clopidogrel 75 mg tablet 75 mg PO QDAY #90 tab 02/03/18 Ubidecarenone [Co Q-10] 100 mg PO DAILY 03/09/18 Losartan Potassium 50 mg PO BID #60 tab 03/11/18 potassium chloride ER 10 mEq tablet,extended release 10 meq PO QDAY #90 tab 06/15/18 triamterene 37.5 mg-hydrochlorothiazide 25 mg capsule 1 cap PO QDAY #90 cap 06/15/18 Amlodipine [Norvasc] 10 mg PO DAILY #30 tablet 07/23/18 Atorvastatin Calcium [Lipitor] 40 mg PO DAILY 90 Days #90 tab 07/23/18 Metoprolol(XL)Succ [Toprol Xl (Beta Tg)] 50 mg PO DAILY #30 tablet 07/23/18 The following prescriptions were given: Amlodipine [Norvasc] 10 mg PO DAILY #30 tablet Atorvastatin Calcium [Lipitor] 40 mg PO DAILY 90 Days #90 tab Metoprolol(XL)Succ [Toprol Xl (Beta Tg)] 50 mg PO DAILY #30 tablet Primary Care Physician: Boyd Casiano MD [Primary Care Provider] - Please follow up with your Primary Care Physician in: 3-5 days Test Results: Test results from this visit will be discussed in further detail at your follow- up appointment, if applicable. Please Follow Up With: Luis Alberto Madera MD When: 2-4 weeks
--- NOTE | 2018-07-23 09:06 | DS.PCM_ITS ---
Discharge Date and Diagnosis Date of Admission: 07/22/18 Date of Discharge: 07/23/18 - Secondary Discharge Diagnosis Chronic Problems (Last Updated 07/23/18 @ 08:38 by Joi Ballard) Nonrheumatic aortic (valve) stenosis (Chronic) Carotid artery disease (Chronic) Atherosclerotic heart disease of [place] coronary artery without angina pectoris (Chronic) Presence of stent in coronary artery (Chronic ~07/22/18) Previous LEANDER to proxiimal to mid LAD 3.0 X 32 mm Taxus 02/23/[address] Daquan Meyer, [facility];LEANDER to mid RCA 2.5 X 24 mm Synergy 01/19/[address] Patel,[facility]; PTCA/LEANDER of the mid LCX 03/10/[address] Torrez [facility] Successful PTCA/LEANDER mid RCA with a 2.0 x 12balloon, followed by a 2.0 x 10 Angiosculpt, followed by a 2.5 x 16 Promus Synergy, post dilated with a 2.5 x 8 NC Balloon; 85%-->0%, no dissection 07/22/2018 Valvular heart disease (Chronic) Hypothyroidism (Chronic) Hyperlipidemia (Chronic) HTN (hypertension), benign (Chronic) S/P coronary artery stent placement (Chronic ~2017) LEANDER to mid RCA 2.5 X 24 mm [facility] [facility]; PTCA/LEANDER of the mid LCX 03/10/[address] Torrez [facility] Successful PTCA/LEANDER mid RCA with a 2.0 x 12balloon, followed by a 2.0 x 10 Angiosculpt, followed by a 2.5 x 16 Promus Synergy, post dilated with a 2.5 x 8 NC Balloon; 85%-->0%, no dissection on 07/22/2018. Hospital Course and Treatment Imaging Results: CXR: IMPRESSION: 1. No definite acute disease or significant change. 2. Chronic lung disease with emphysema. Consults: Cardiology Operations: None Procedures: Cardiac catheterization - CONCLUSIONS Successful PTCA/LEANDER mid RCA with a 2.0 x 12balloon, followed by a 2.0 x 10 Angiosculpt, followed by a 2.5 x 16 Promus Synergy, post dilated with a 2.5 x 8 NC Balloon; 85%-->0%, no dissection. RECOMMENDATIONS Highly recommend quitting all tobacco products Follow up with primary maintenance team leader Risk factor modification ASA Indefinitley Plavix for at least 12 months Routine post interventional care Refer for Outpatient Cardiac Rehab Manual sheath removal per protocol Follow up with Dr. Laura Manual sheath removal. Summary of Care Provided: Per HPI: The patient is a 82 year old F with a significant history of CAD status post 3 coronary stents in 2003, coronary stents in January 2018; and another coronary stent in February 2018 who presented with a 2-day history of episodic jaw pain that radiates to her left shoulder and her left arm. Patient reported that the last 2 days she has been taking aspirin that seem to be helping her pain. On the day of admission her pain woke her from her sleep and her drove her to the emergency department. Before presentation she took 4 doses of baby aspirin. At the emergency department patient was given 3 doses of nitroglycerin sublingual which took her pain away. She denies any aggravating factor to her pain. She rates her pain as 5-6 on a scale of 1-10. She describes her pain as dull and aching. She reports nausea on the way to the emergency department. She denies any diaphoresis or vomiting. She states that her pain is reminiscent of her previous coronary event She reported that her mother from a massive heart attack when she was 66 years old. Hospital Course: 1. Left jaw pain and arm pain 4/hypertension/CAD status post stents-she is a 82-year-old female with significant coronary artery disease history status post 3 stents in 2003 as well as stents in January and February 2018 who presented with a 2-day history of jaw pain and left arm pain. She had normal troponins but given her cardiac history was taken to the cardiac Automotive Specialty Technician where she was found to have severe right coronary artery stenosis of approximately 90% it appears to be in-stent, and she had a stent placed. On the day of discharge she denies any jaw or arm pain. In conjunction with cardiology medication changes were made to include decreasing her Toprol-XL from 100 mg daily to 50 mg daily, and the addition of Norvasc 10 mg daily for improved blood pressure control. Also her Lipitor was increased from 10 mg nightly to 40 mg nightly given her its of cardiac history. She has follow-up with cardiology on 08/07/2018. 2. Her other medical diagnoses were evaluated in her home occasions were continued where appropriate - Physical Exam General: Alert, Oriented x3, Cooperative, No apparent distress HEENT: Atraumatic, PERRLA, EOMI, Normocephalic Oral: Moist Mucosa Neck: Supple, No JVD, Trachea Midline Lungs: Clear to auscultation, Normal air movement, No rhonchi, No wheeze, No rales, Diminished Cardiovascular: Regular rate, Regular Rhythm, Normal S1, Normal S2, Murmur Abdomen: Soft, Non Tender, Non-Distended, No Hepato-splenomegaly Extremities: No edema, Capillary Refill Less than 3 Seconds Skin: No rashes, No breakdown Neurological: Neuro grossly intact, Sensory exam intact to light touch and pain Psych/Mental Status: Normal Affect, Appropriate Vital Signs Temp Pulse Resp BP Pulse Ox 98.6 F 55 L 18 153/30 H 95 07/23/18 07:53 07/23/18 08:31 07/23/18 08:31 07/23/18 08:31 07/23/18 08:31 Oxygen Flow Rate (L/min) 2 Oxygen Delivery Method Room Air Weight: 170 lb 3.15 oz Body Mass Index (BMI) 30.4 Intake and Output for Last 24 Hours 07/21/18 07/22/18 07/23/18 23:59 23:59 23:59 Intake Total 1025 / 1025 531.7 / 531.7 Balance 1025 / 1025 531.7 / 531.7 Laboratory Tests Past 24 Hrs 07/22/18 07/22/18 07/22/18 09:47 12:30 12:37 WBC RBC Hgb Hct MCV MCH MCHC RDW RDW Differential Plt Count MPV Activated Clotting Time 241 H 153 H Sodium Potassium Chloride Carbon Dioxide Anion Gap BUN Creatinine Estim Creat Clear Calc Est GFR (MDRD) Af Amer Est GFR (MDRD) Non-Af BUN/Creatinine Ratio Glucose Calcium Troponin I < 0.015 Triglycerides Cholesterol LDL Cholesterol VLDL Cholesterol HDL Cholesterol 07/23/18 07/23/18 04:05 04:05 WBC 16.8 H RBC 4.28 Hgb 12.8 Hct 38.7 MCV 90.4 MCH 29.9 MCHC 33.1 RDW 14.3 RDW Differential 46.2 H Plt Count 264 MPV 10.3 Activated Clotting Time Sodium 141 Potassium 4.3 Chloride 105 Carbon Dioxide 28.0 Anion Gap 8 BUN 28 H Creatinine 1.27 H Estim Creat Clear Calc 27.94 Est GFR (MDRD) Af Amer 52 L Est GFR (MDRD) Non-Af 43 L BUN/Creatinine Ratio 22.0 H Glucose 138 H Calcium 8.9 Troponin I Triglycerides 120 Cholesterol 133 LDL Cholesterol 65 VLDL Cholesterol 24 HDL Cholesterol 44 Discharge Activity: Return to Normal Activity Call your doctor if your incision/area has: Sudden Increased Bleeding, Increased Pain/ Swelling, Increased Redness Call your doctor if you observe: Fever of 101 or Higher, Shortness of breath, Dizziness, Fainting spells, Chest pain, Increased palpitations (irregular heartbeat) Home Medications: Medications to take at Discharge levothyroxine 88 mcg tablet 88 mcg PO DAILY 90 Days 06/10/17 nitroglycerin 0.4 mg sublingual tablet 0.4 mg SUBLINGUAL Q5-15M PRN 10 Days #2880 tab 06/10/17 Ascorbic Acid [Vitamin C] 500 mg PO DAILY 01/16/18 Calcium Citrate 600 mg PO DAILY 01/16/18 Fish Oil 1 cap PO 1200,1800 01/16/18 Folic Acid 400 mcg PO DAILY@0800 01/16/18 Multivitamin [Daily Multiple Vitamin] 1 ea PO DAILY 01/16/18 Aspirin E.C. [Ecotrin] 81 mg PO DAILY@0800 tab 01/20/18 clopidogrel 75 mg tablet 75 mg PO QDAY #90 tab 02/03/18 Ubidecarenone [Co Q-10] 100 mg PO DAILY 03/09/18 Losartan Potassium 50 mg PO BID #60 tab 03/11/18 potassium chloride ER 10 mEq tablet,extended release 10 meq PO QDAY #90 tab 06/15/18 triamterene 37.5 mg-hydrochlorothiazide 25 mg capsule 1 cap PO QDAY #90 cap 06/15/18 Amlodipine [Norvasc] 10 mg PO DAILY #30 tablet 07/23/18 Atorvastatin Calcium [Lipitor] 40 mg PO DAILY 90 Days #90 tab 07/23/18 Metoprolol(XL)Succ [Toprol Xl (Beta Tg)] 50 mg PO DAILY #30 tablet 07/23/18 Following Prescrptions Were Given to Patient: Amlodipine [Norvasc] 10 mg PO DAILY #30 tablet Atorvastatin Calcium [Lipitor] 40 mg PO DAILY 90 Days #90 tab Metoprolol(XL)Succ [Toprol Xl (Beta Tg)] 50 mg PO DAILY #30 tablet Primary Care Physician: Boyd Casiano MD [Primary Care Provider] - Please follow up with your Primary Care Physician in: 3-5 days Please Follow Up With: Bryant Villalobos DYED RAW STOCK BLOWER FEEDER-C When: 08/07/2018 Disposition: Home Minutes spent on discharge:: 35 Patient Condition:: Good Medical Necessity - Tobacco Use Smoking Status: Never smoker Meaningful Use Info Meaningful Use Diagnoses (Choose all that apply): None applicable Code Visit OBSV E&M: 08777 Observation care discharge
--- NOTE | 2018-07-23 09:15 | CASEMGMT ---
Addendum entered by Sharon Block 07/23/18 10:38: Per Xenia MEAD, pt has been up in room without difficulty and is ready for discharge at this time. Abbe MEAD CM Original Note: This RN CM to room to discuss discharge planning with pt at this time and pt is up in the bathroom at this time. This RN CM will discuss with pt's bedside RN in regards to mobility. Abbe MEAD CM
--- NOTE | 2018-07-23 09:50 | CASEMGMT ---
SW spoke w/pt in regard to LW/POA forms, as admitting RN's assessment states pt would like information. Pt states already has these documents, she believes her daughter is POA. SW asked to bring in the papers should she be here again, and we can put a copy on the chart. Pt states understanding. THANH Cote, FORKLIFT TRUCK OPERATOR
--- NOTE | 2018-07-23 10:00 | EKG12_ITS ---
Test Reason : AM Blood Pressure : / mmHG Vent. Rate : 052 BPM Atrial Rate : 052 BPM P-R Int : 164 ms QRS Dur : 084 ms QT Int : 458 ms P-R-T Axes : 055 004 018 degrees QTc Int : 425 ms Sinus bradycardia Otherwise normal ECG When compared with ECG of 22-JUL-2018 10:22, MANUAL COMPARISON REQUIRED, DATA IS UNCONFIRMED Confirmed by IVA WYNN, DANA ([id number]), photo editor RIVERA EASTON ([id number]) on 07/30/2018 1:08:07 PM Referred By: Confirmed By:DANA ENRIQUE MD
== END 2018-07-23 10:40 | disposition home or self-care (01) ==
LOC: ED 04:46 → PCU 06:35 → ICU 09:19
PROVIDERS: Internal Medicine Cardiovascular Disease; Admitting Provider Hospitalist; Emergency Provider Emergency Medicine; Family Provider Family Medicine; PCP Family Medicine; Visit Provider Family Medicine
DX: I25.110 Atherosclerotic heart disease of native coronary artery with unstable angina pectoris (principal); I10 Essential (primary) hypertension; E78.5 Hyperlipidemia, unspecified; R00.1 Bradycardia, unspecified; R94.31 Abnormal electrocardiogram [ECG] [EKG]; E03.9 Hypothyroidism, unspecified; Z79.899 Other long term (current) drug therapy; Z79.82 Long term (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 aspirin; Z79.02 Long term (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 antithrombotics/antiplatelets; Z95.5 Presence of coronary angioplasty implant and graft; Z82.49 Family history of ischemic heart disease and other diseases of the circulatory system; T82.858A Stenosis of other vascular prosthetic devices, implants and grafts, initial encounter
CPT/HCPCS: 36415; 71045; 80048; 80061; 84484; 85025; 85027; 85347; 85610; 85730; 92928; 93005; 93458; 96360; 96361; 99152; 99153; 99218; 99283; J7030; J7040; Q9967; A4216; C1725; C1769; C1874; C1887; C1894; C9600; G0378

== ENCOUNTER → 2018-08-13 08:31 | Outpatient (CLI) | payer MEDICARE, OTHER, SELFPAY ==
[2018-07-22 06:50] VITALS: BMI 30.4
[2018-08-07 10:34] VITALS: BMI 31.6
--- NOTE | 2018-08-13 08:48 | PCM.CR.ITP ---
General Information - General Information Admitting Diagnosis: pci w/stent - Education/Goals Barriers to Learning: None Individual Counseling: Initial Assessment: Abnormal Cholesterol Levels, High Blood Pressure, Overweight/Obesity Cardiac Rehabilitation Goals: 1. Maintain the individual as the primary focus of care. 2. To improve the patient's quality of life. 3. Identification of cardiac risk factors and provide cardiac risk factor management. 4. Enhance the psychosocial status of the patient. 5. Reconditioning enough to allow the patient to resume customary activities. 6. Control symptoms of cardiac disease Scale for measuring improvement of personal goals: Enter appropriate number in Comments. 2 = Unchanged. 3 = Slightly Better. 4 = Moderate Improvement. 5 = Met my Goal Personal Goals: Initial Assessment: Improve energy level, Improve muscle strength and endurance, Improve diet and eating habits (eat healthier), Control risk factors (learn risk factor modification) Exercise - Initial Assessment - Visit Date of Eval: 08/13/18 - Stages of Change Stages of Change:: Action - Physician Prescribed Exercise Modalities: Treadmill, Airdyne, NuStep, SciFit Frequency (days/week): 3x/week for 12 weeks [36 sessions] Duration (Minutes):: 30-45 Intensity: 60-80% age predicted maximum heart rate reserve METs - Progression: 0.5-1.0 MET, RPE 11-14 WEEK: 2.5 Target Heart Rate:: 112-119 - Hypertension Do any of the following apply?: Yes - Intervention Home Exercise/Activity Goal:: Moderate Exercise 30 min/day x 5 days/wk - Education Goals:: Warm-up, RPE CARINE Scale, S/S, Safe Exercise, Self-Monitoring - Exercise Program Goals Exercise Program Goals: Aerobic Activity >30 min Nutrition - Initial Assessment - Program Goals Nutrition Program Goals: LDL <70. Total Cholesterol <200. HDL >45. Triglycerides <150. HgbA1C <7%. BMI <25 - Visit Date of Assessment:: 08/13/18 - Stages of Change Stages of Change:: Action - Lipids Total Cholesterol (mg/dL) Goal = less than 200 mg/dL: 133 HDL Cholesterol (mg/dL) Goal = less than 45 mg/dL: 44 LDL Cholesterol (mg/dL) Goal = less than 70 mg/dL: 65 Triglycerides (mg/dL) Goal = less than 150 mg/dL: 120 - . - Diabetes Diabetes:: No Do you monitor your blood sugar at home?: No - Weight Management Height: 5 ft 1.81 in Weight:: 170 lb 4.8 oz Body Fat %:: 30.4 - Intervention Referral to dietitian:: Yes Referral to Diabetic Clinic:: No Will attend diet classes:: Yes - Education Gave educational materials for:: Healthy eating Tobacco - Initial Assessment - Program Goals Tobacco Program Goals: Complete smoking cessation. Attend education classes. Improve Knowledge Test score - Stage of Change Stages of Change:: Action - Learning Barriers Learning Barriers: Ready to Learn - Tobacco Use Tobacco Use: Non-smoker Do you use smokeless tobacco?: No - Intervention Education Schedule Given:: Yes - Education Gave educational material for:: Coronary artery disease, Risk factors, Sexuality, Medical compliance, Cardiac A&P, Angina signs & symptoms Psychosocial - Initial Assess - Target Goals Target Goals: Assess presence or absence of depression. Using a valid screening tool, maximizes coping skills. Positive support system - Stages of Change Stages of Change:: Action - Psychosocial Test Tool Used:: HANDS Depression Questionnaire - Intervention PS - Interventions: Yes Attend Stress Management Classes, Yes Uses Stress Management Skills, No Referral to Mental Health, No Referral to [facility] Case Management, No Referral to Physician - Education Gave educational materials for:: Coping techniques, Signs & symptoms of depression, Stress management, Relaxation techniques - Patient/Program Goal Preventative Medication(s):: Aspirin, Clopidogrel, Beta skylar, Statin/lipid - Assistive Devices Assistive Devices:: None Fall Risk Assessed:: Yes Patient Health Questionnaire Initial Assessment 1. Little interest or pleasure in doing things: Several days 2. Feeling down, depressed, or hopeless: Not at all 3. Trouble falling or staying asleep, or sleeping too much: Nearly every day 4. Feeling tired or having little energy: Several days 5. Poor appetite or overeating: Not at all 6. Feeling bad about yourself -- or that you are a failure or have let yourself or your family down: Not at all 7. Trouble concentrating on things, such as reading the newspaper or watching television: Not at all 8. Moving or speaking so slowly that other people could have noticed. Or the opposite - being so fidgety or restless that you have been moving around a lot more than usual: Not at all 9. Thoughts that you would be better off , or of hurting yourself in some way: Not at all How difficult have these problems made it for you to do your work, take care of things at home, or get along with other people?: Not difficult at all Total Score: 5 SARAH-Q SV Test - Statements CAD is a disease of the arteries in the heart: False Examples of risk factors for heart disease: True Angina is chest pain or discomfort: True The benefits of resistance training include: True Eating more meat and dairy products: False Anti-platelet medications such as aspirin are important: True The only effective way to manage stress: False An exercise warm-up slowly increases heart rate: True Prepared, processed foods usually have high sodium: True Depression is common after a heart attack: True The statin medications lower cholesterol: True To control blood pressure, lower the amount of sodium: True If someone gets chest discomfort during walking: False Transfats are partially hydrogenated vegetable oils: True Sleep apnea that is not treated increases the risk: False To control cholesterol, one should become a vegetarian: False Someone knows if he/she is exercising at the right level: True Diabetes cannot be prevented with exercise & health eating: False Stress is a large risk for heart attack: True A diet that can help lower blood pressure is rich in: True - Total Score Total Correct Responses: 20 Self-Efficacy Initial Assessment We would like to know how confident you are in doing certain activities. Please select your confidence level for:: Select your confidence level for the following using the scale 1-10 where 1 is not at all confident and 10 is totally confident. Your score is the average of all 6 responses. Fatigue: How confident are you that you can keep the fatigue caused by your disease from interfering with the things you want to do? Select Number: 7 Physical Discomfort or Pain: How confident are you that you can keep the physical discomfort or pain of your disease from interfering with the things you want to do? Select Number: 7 Emotional Distress: How confident are you that you can keep the emotional distress caused by your disease from interfering with the things you want to do? Select Number: 9 Other Symptoms or Health Problems: How confident are you that you can keep other symptoms or health problems from interfering with the things you want to do? Select Number: 9 Different Tasks and Activities: How confident are you that you can do the different tasks and activities needed to manage your health condition so as to reduce your need to see a doctor? Select Number: 9 Medication: How confident are you that you can do things other than just taking medication to reduce how much your illness affects your everyday life? Select Number: 9 Total Score:: 8 Nutrition Survey - Nutrition Survey Instructions Scoring Instructions: Scoring is as follows: Yes = 1 points. No = 0 point. Patient score that is >/=12 is considered to be at potential nutritional risk and could benefit from a referral to a registered dietitian. - Nutrition Survey Initial Have you lost >10 lbs over the past 2 months without trying?: No Are you following a special diet at home for diabetes, low fat, or low salt?: Yes Are you interested in meeting with a dietitian for help understanding your diet?: No Do you eat less than 3 meals a day?: No Do you eat fatty meats (cadet, sausage, ribs, etc), fried foods, desserts, large amounts of salad dressings, margarine, butter, or cheese most days?: No Do you have food allergies? [Enter types in comment field]: No Do you eat in restaurants more than 3 times a week?: No Do you season food with salt, seasoning salt, or garlic salt?: Yes Do you used canned, boxed, frozen meals, or soups, seasoning packets?: No Total Score:: 2
--- NOTE | 2018-08-13 08:49 | PCM.CR.HP2 ---
CR - History & Physical - General Arrival date:: 08/13/18 Arrival time:: 08:35 Date of Referral:: 07/23/18 Date of CR Evaluation:: 08/13/18 Referring Physician: Dr. Luis Alberto Madera Primary Diagnosis: PCI w/coronary stent - History of Present Cardiac Event Onset Date: Enter Onset Date of cardiac illnesses in Comment field below PTCA or coronary stenting:: Yes - 07/22/2018 Type of Symptoms:: left shoulder, chest and jaw pain. Interventions with present event:: heart cath w/stent placement - Medications Home Medications: Ambulatory Orders Medication Instructions Recorded levothyroxine 88 mcg tablet 88 mcg PO DAILY 90 Days 06/10/17 nitroglycerin 0.4 mg sublingual 0.4 mg SUBLINGUAL Q5-15M PRN 10 06/10/17 tablet Days #2880 tab Ascorbic Acid [Vitamin C] 500 mg PO DAILY 01/16/18 Calcium Citrate 600 mg PO DAILY 01/16/18 Fish Oil 1 cap PO 1200,1800 01/16/18 Folic Acid 400 mcg PO DAILY@0800 01/16/18 Multivitamin [Daily Multiple 1 ea PO DAILY 01/16/18 Vitamin] Aspirin E.C. [Ecotrin] 81 mg PO DAILY@0800 tab 01/20/18 clopidogrel 75 mg tablet 75 mg PO QDAY #90 tab 02/03/18 Ubidecarenone [Co Q-10] 100 mg PO DAILY 03/09/18 Losartan Potassium 50 mg PO BID #60 tab 03/11/18 potassium chloride ER 10 mEq 10 meq PO QDAY #90 tab 06/15/18 tablet,extended release triamterene 37.5 1 cap PO QDAY #90 cap 06/15/18 mg-hydrochlorothiazide 25 mg capsule Metoprolol(XL)Succ [Toprol Xl 50 mg PO DAILY #30 tab 07/23/18 (Beta Tg)] amlodipine 10 mg tablet 10 mg PO DAILY #90 tab 08/07/18 atorvastatin 40 mg tablet 40 mg PO DAILY 90 Days #90 tab 08/07/18 - Allergies Allergies/Adverse Reactions: Allergies Iodinated Contrast- Oral and IV Dye Allergy (Intermediate, Verified 08/07/18 10:35) Rash ramipril [From Altace] Adverse Reaction (Severe, Verified 08/07/18 10:35) cough - Sleep Disorder Evaluation Hx of Sleep Apnea: No Do you snore loudly (louder than talking or can be heard through closed doors)?: Yes Do you often feel tired/ fatigued/ sleepy during daytime?: Yes - takes daily naps Has anyone observed you stop breathing during sleep?: No History of Hypertension (for STOP score): Yes STOP Results: Positive Advanced Directives - Advanced Directives Power of Cafe Assistant: Yes Living Will: Yes Advance Directives Information Provided: No Advance Directives on File: No DNR Order?:: No - MOLST See MOLST form: No Past Medical History - Past Medical Illness Medical History: Past Medical History (Last Reviewed 07/22/18 @ 07:02 by Jono Alex MD) Nonrheumatic mitral (valve) insufficiency (Acute) I34.0 Nonrheumatic aortic (valve) insufficiency (Acute) I35.1 Nonrheumatic aortic (valve) stenosis (Chronic) I35.0 Carotid artery disease (Chronic) I77.9 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 Daquan Meyer, [facility];LEANDER to mid RCA 2.5 X 24 mm Synergy 01/19/[address] Patel,[facility]; PTCA/LEANDER of the mid LCX 03/10/[address] Torrez [facility]; Successful PTCA/LEANDER mid RCA with a 2.0 x 12balloon, followed by a 2.0 x 10 Angiosculpt, followed by a 2.5 x 16 Promus Synergy, post dilated with a 2.5 x 8 NC Balloon; 85%-->0%, no dissection 07/22/2018 Chest pain (Acute) R07.9 CAD (coronary artery disease) (Acute) I25.10 Angina pectoris (Acute) I20.9 Valvular heart disease (Chronic) I38 Hypothyroidism (Chronic) E03.9 Hyperlipidemia (Chronic) E78.5 HTN (hypertension), benign (Chronic) I10 Aortic insufficiency (Inactive) I35.1 - Past Surgical History Surgical History: Past Surgical History (Last Updated 07/23/18 @ 08:38 by Joi Ballard) Presence of stent in coronary artery (Chronic) Onset Date: ~07/22/18 Z95.5 Previous LEANDER to proximal to mid LAD 3.0 X 32 mm Taxus 02/23/[address] Daquan Meyer, [facility];LEANDER to mid RCA 2.5 X 24 mm [facility] [facility]/LEANDER of the mid LCX 03/10/[address] Torrez [facility]; Successful PTCA/LEANDER mid RCA with a 2.0 x 12balloon, followed by a 2.0 x 10 Angiosculpt, followed by a 2.5 x 16 Promus Synergy, post dilated with a 2.5 x 8 NC Balloon; 85%-->0%, no dissection 07/22/2018 S/P coronary artery stent placement (Chronic) Onset Date: ~2017 Z95.5 LEANDER to mid RCA 2.5 X 24 mm [facility] [facility] PTCA/LEANDER of the mid LCX 03/10/[address] Torrez [facility] Successful PTCA/LEANDER mid RCA with a 2.0 x 12balloon, followed by a 2.0 x 10 Angiosculpt, followed by a 2.5 x 16 Promus Synergy, post dilated with a 2.5 x 8 NC Balloon; 85%-->0%, no dissection on 07/22/2018. History of cholecystectomy Z90.49 Surgical History: angioplasty, cholecystectomy, - - Cardiac stents in 2003. - Family History Summary Family History: Family History (Last Reviewed 07/22/18 @ 07:02 by Jono Alex MD) Mother , Age 63 Myocardial infarction Father , Age 28 Colon cancer Social History - Smoking History Smoking Status: Never smoker Hx Tobacco Use: No Hx Smoking Exposure: No - Alcohol Use Alcohol Usage: No - Substance Abuse Hx Substance Use: No - Occupation Occupation (List type of work in comments):: Retired - Hobbies, Recreation, Social Activities Hobbies: Other - traveling, card club, auctions Recreational Activities: I am able to engage in all my recreational activities Social Environment - Status Marital Status: - Current Living Arrangements Living Environment:: Spouse - Children How many children do you have?: 4 Do any of your children live nearby?: Yes - next door, few miles, [place] and [place] - Safety Do you feel safe in your surroundings?: Yes - Assistance Do you need any assistance at home?: none Review of Systems - Review of Systems Hints: Right click = Denies (Slash). Left click = Reports ([place]) Review of Present Symptoms: Reports: Shortness of Breath with Exertion - steps and walking, Angina - jaw, left shoulder, chest currently at level 4. Dr. Madera called and patient to be taken to ER for evaluation., Fatigue, Appetite - Normal, Appetite - Special Diet - watch salt intake., Sleep - Normal. Denies: Dizziness/Lightheadedness - Pain Is Patient Pain Free?: No Pain Location: chest Pain Level: 09/23 Risk Factor Assessment - Vital Signs Temperature: 98.7 F Respiratory Rate: 18 Pulse Ox: 95 Blood Pressure: 142/78 Nailbeds:: pink - Pulse Pulse Rate: 68 Pulse Rhythm: Regular - Hypertension How long have you been treated?: several years On medication(s)?: yes Blood Pressure Sitting - Left Arm: 142/78 - Blood Cholesterol/Lipids Total Cholesterol (mg/dL) Goal = less than 200 mg/dL: 133 HDL Cholesterol (mg/dL) Goal = less than 40 mg/dL: 44 LDL Cholesterol (mg/dL) Goal = less than 70 mg/dL: 65 Triglycerides (mg/dL) Goal = less than 150 mg/dL: 120 - Diabetes Nutrition Referral for Diabetes: No - Obesity Height: 5 ft 2 in Weight:: 173 lb Weight in Pounds: 173.0 lbs Weight Source: Stated by Patient Body Mass Index (BMI): 31.6 Nutritional Referral for Obesity: Yes - Physical Inactivity Physical Inactivity: Recreational activity - Risk Stratification Risk Guidelines: Lowest Risk: Risk Factor for Smoking, Risk Factor for Dyslipidemia, Risk Factor for Diabetes, Risk Factor for Sedentary Lifestyle, Risk Factor for Depression, Moderate Risk: Risk Factor for Dyslipidemia, Highest Risk: Risk Factor for Obesity, Risk Factor for Hypertension - For Smoking Smoking Risk Guidelines: Smoking Low Risk: None or quit greater than 6 months ago. Smoking Moderate Risk: Smoker or quit 6 months or less ago. Smoking High Risk: Smoker - For Dyslipidemia Dyslipidemia Risk Guidelines: Low Risk: Moderate Risk: High Risk: 15-25% fat 25.1-29% fat >/= 30% fat. <7% sat fat 7-9% sat fat >9% sat fat. <150 mg chol 150-299 mg chol >/= 300 mg chol. LDL <100 LDL 100-129 LDL >/= 130. Chol/HDL ratio <5.0 Chol/HDL ratio 5.0-6.0 Chol/HDL ratio >6.0. Triglycerides <100 Triglycerides 100-149 Triglycerides >/= 150 - For Diabetes Mellitus Diabetes Risk Guidelines: Diabetes Low Risk: HgA1c <6.5% and/or FBG <120. Diabetes Moderate Risk: HgA1c 6.6-7.9% and/or FBG 120-180. Diabetes High Risk: HgA1c >/= 8% and/or FBG >180 - For Obesity/Overweight Obesity/Overweight Risk Guidelines: Obesity Low Risk: BMI <25.0. Obesity Moderate Risk: BMI 25-29.9. Obesity High Risk: BMI >/= 30.0 - For Hypertension Hypertension Risk Guidelines: Hypertension Low Risk: Systolic <120 and Diastolic <80. Hypertension Moderate Risk: Systolic 120-139 and Diastolic 80-89. Hypertension High Risk: Systolic >/= 140 and Diastolic >/= 90 - For Sedentary Lifestyle Sedentary Lifestyle Risk Guidelines: Sedentary Lifestyle Low Risk: >/= 1,500 kcal/week. Sedentary Lifestyle Moderate Risk: 700-1,499 kcal/week. Sedentary Lifestyle High Risk: < 700 kcal/week - For Depression Depression Risk Guidelines: Depression Low Risk: Not clinically depressed. Depression Moderate Risk: Mildly depressed. Depression High Risk: Clinically depressed - Family History Family History: Family History (Last Reviewed 07/22/18 @ 07:02 by Jono Alex MD) Mother Myocardial infarction Father Colon cancer Motivation - Motivation to Participate On a scale of 1 to 10, how prepared are you to commit to attending program?: 10 What do you see as barriers to successfully being able to complete the program?: none What do you see as the benefits of succesfully completing the program? In other words, what do you hope to get out of participating in the program?: get more energy and get more stamina back. Are there issues you are dealing with that will interfere with completing the program?: none Do you have a spouse or signficant other, family or friends who will help support you to complete the program?: yes
--- NOTE | 2018-08-13 08:56 | CR.HP_ITS ---
CR - History & Physical - General Arrival date:: 08/13/18 Arrival time:: 08:35 Date of Referral:: 07/23/18 Date of CR Evaluation:: 08/13/18 Referring Physician: Dr. Luis Alberto Madera Primary Diagnosis: PCI w/coronary stent - History of Present Cardiac Event Onset Date: Enter Onset Date of cardiac illnesses in Comment field below PTCA or coronary stenting:: Yes - 07/22/2018 Type of Symptoms:: left shoulder, chest and jaw pain. Interventions with present event:: heart cath w/stent placement - Medications Home Medications: Ambulatory Orders Medication Instructions Recorded levothyroxine 88 mcg tablet 88 mcg PO DAILY 90 Days 06/10/17 nitroglycerin 0.4 mg sublingual 0.4 mg SUBLINGUAL Q5-15M PRN 10 06/10/17 tablet Days #2880 tab Ascorbic Acid [Vitamin C] 500 mg PO DAILY 01/16/18 Calcium Citrate 600 mg PO DAILY 01/16/18 Fish Oil 1 cap PO 1200,1800 01/16/18 Folic Acid 400 mcg PO DAILY@0800 01/16/18 Multivitamin [Daily Multiple 1 ea PO DAILY 01/16/18 Vitamin] Aspirin E.C. [Ecotrin] 81 mg PO DAILY@0800 tab 01/20/18 clopidogrel 75 mg tablet 75 mg PO QDAY #90 tab 02/03/18 Ubidecarenone [Co Q-10] 100 mg PO DAILY 03/09/18 Losartan Potassium 50 mg PO BID #60 tab 03/11/18 potassium chloride ER 10 mEq 10 meq PO QDAY #90 tab 06/15/18 tablet,extended release triamterene 37.5 1 cap PO QDAY #90 cap 06/15/18 mg-hydrochlorothiazide 25 mg capsule Metoprolol(XL)Succ [Toprol Xl 50 mg PO DAILY #30 tab 07/23/18 (Beta Tg)] amlodipine 10 mg tablet 10 mg PO DAILY #90 tab 08/07/18 atorvastatin 40 mg tablet 40 mg PO DAILY 90 Days #90 tab 08/07/18 - Allergies Allergies/Adverse Reactions: Allergies Iodinated Contrast- Oral and IV Dye Allergy (Intermediate, Verified 08/07/18 10:35) Rash ramipril [From Altace] Adverse Reaction (Severe, Verified 08/07/18 10:35) cough - Sleep Disorder Evaluation Hx of Sleep Apnea: No Do you snore loudly (louder than talking or can be heard through closed doors)?: Yes Do you often feel tired/ fatigued/ sleepy during daytime?: Yes - takes daily naps Has anyone observed you stop breathing during sleep?: No History of Hypertension (for STOP score): Yes STOP Results: Positive Advanced Directives - Advanced Directives Power of Sewing Machine 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: Yes Living Will: Yes Advance Directives Information Provided: No Advance Directives on File: No DNR Order?:: No - MOLST See MOLST form: No Past Medical History - Past Medical Illness Medical History: Past Medical History (Last Reviewed 07/22/18 @ 07:02 by Jono Alex MD) Nonrheumatic mitral (valve) insufficiency (Acute) I34.0 Nonrheumatic aortic (valve) insufficiency (Acute) I35.1 Nonrheumatic aortic (valve) stenosis (Chronic) I35.0 Carotid artery disease (Chronic) I77.9 Atherosclerotic heart disease of [place] coronary artery without angina pectoris (Chronic) I25.10 Previous LEANDER to proximal to mid LAD 3.0 X 32 mm Taxus 02/23/[address] Daquan Meyer, [facility];LEANDER to mid RCA 2.5 X 24 mm Synergy 01/19/[address] Patel,[facility]; PTCA/LEANDER of the mid LCX 03/10/[address] Torrez [facility]; Successful PTCA/LEANDER mid RCA with a 2.0 x 12balloon, followed by a 2.0 x 10 Angiosculpt, followed by a 2.5 x 16 Promus Synergy, post dilated with a 2.5 x 8 NC Balloon; 85%-->0%, no dissection 07/22/2018 Chest pain (Acute) R07.9 CAD (coronary artery disease) (Acute) I25.10 Angina pectoris (Acute) I20.9 Valvular heart disease (Chronic) I38 Hypothyroidism (Chronic) E03.9 Hyperlipidemia (Chronic) E78.5 HTN (hypertension), benign (Chronic) I10 Aortic insufficiency (Inactive) I35.1 - Past Surgical History Surgical History: Past Surgical History (Last Updated 07/23/18 @ 08:38 by Joi Ballard) Presence of stent in coronary artery (Chronic) Onset Date: ~07/22/18 Z95.5 Previous LEANDER to proximal to mid LAD 3.0 X 32 mm Taxus 02/23/[address] Daquan Meyer, [facility];LEANDER to mid RCA 2.5 X 24 mm [facility] [facility] PTCA/LEANDER of the mid LCX 03/10/[address] Torrez [facility]; Successful PTCA/LEANDER mid RCA with a 2.0 x 12balloon, followed by a 2.0 x 10 Angiosculpt, followed by a 2.5 x 16 Promus Synergy, post dilated with a 2.5 x 8 NC Balloon; 85%-->0%, no dissection 07/22/2018 S/P coronary artery stent placement (Chronic) Onset Date: ~2017 Z95.5 LEANDER to mid RCA 2.5 X 24 mm [facility] [facility]; PTCA/LEANDER of the mid LCX 03/10/[address] Torrez [facility] Successful PTCA/LEANDER mid RCA with a 2.0 x 12balloon, followed by a 2.0 x 10 Angiosculpt, followed by a 2.5 x 16 Promus Synergy, post dilated with a 2.5 x 8 NC Balloon; 85%-->0%, no dissection on 07/22/2018. History of cholecystectomy Z90.49 Surgical History: angioplasty, cholecystectomy, - - Cardiac stents in 2003. - Family History Summary Family History: Family History (Last Reviewed 07/22/18 @ 07:02 by Jono Alex MD) Mother , Age 63 Myocardial infarction Father , Age 28 Colon cancer Social History - Smoking History Smoking Status: Never smoker Hx Tobacco Use: No Hx Smoking Exposure: No - Alcohol Use Alcohol Usage: No - Substance Abuse Hx Substance Use: No - Occupation Occupation (List type of work in comments):: Retired - Hobbies, Recreation, Social Activities Hobbies: Other - traveling, card club, auctions Recreational Activities: I am able to engage in all my recreational activities Social Environment - Status Marital Status: - Current Living Arrangements Living Environment:: Spouse - Children How many children do you have?: 4 Do any of your children live nearby?: Yes - next door, few miles, [place] and [place] - Safety Do you feel safe in your surroundings?: Yes - Assistance Do you need any assistance at home?: none Review of Systems - Review of Systems Hints: Right click = Denies (Slash). Left click = Reports ([place]) Review of Present Symptoms: Reports: Shortness of Breath with Exertion - steps and walking, Angina - jaw, left shoulder, chest currently at level 4. Dr. Madera called and patient to be taken to ER for evaluation., Fatigue, Appetite - Normal, Appetite - Special Diet - watch salt intake., Sleep - Normal. Denies: Dizziness/Lightheadedness - Pain Is Patient Pain Free?: No Pain Location: chest Pain Level: 09/23 Risk Factor Assessment - Vital Signs Temperature: 98.7 F Respiratory Rate: 18 Pulse Ox: 95 Blood Pressure: 142/78 Nailbeds:: pink - Pulse Pulse Rate: 68 Pulse Rhythm: Regular - Hypertension How long have you been treated?: several years On medication(s)?: yes Blood Pressure Sitting - Left Arm: 142/78 - Blood Cholesterol/Lipids Total Cholesterol (mg/dL) Goal = less than 200 mg/dL: 133 HDL Cholesterol (mg/dL) Goal = less than 40 mg/dL: 44 LDL Cholesterol (mg/dL) Goal = less than 70 mg/dL: 65 Triglycerides (mg/dL) Goal = less than 150 mg/dL: 120 - Diabetes Nutrition Referral for Diabetes: No - Obesity Height: 5 ft 2 in Weight:: 173 lb Weight in Pounds: 173.0 lbs Weight Source: Stated by Patient Body Mass Index (BMI): 31.6 Nutritional Referral for Obesity: Yes - Physical Inactivity Physical Inactivity: Recreational activity - Risk Stratification Risk Guidelines: Lowest Risk: Risk Factor for Smoking, Risk Factor for Dyslipidemia, Risk Factor for Diabetes, Risk Factor for Sedentary Lifestyle, Risk Factor for Depression, Moderate Risk: Risk Factor for Dyslipidemia, Highest Risk: Risk Factor for Obesity, Risk Factor for Hypertension - For Smoking Smoking Risk Guidelines: Smoking Low Risk: None or quit greater than 6 months ago. Smoking Moderate Risk: Smoker or quit 6 months or less ago. Smoking High Risk: Smoker - For Dyslipidemia Dyslipidemia Risk Guidelines: Low Risk: Moderate Risk: High Risk: 15-25% fat 25.1-29% fat >/= 30% fat. <7% sat fat 7-9% sat fat >9% sat fat. <150 mg chol 150-299 mg chol >/= 300 mg chol. LDL <100 LDL 100-129 LDL >/= 130. Chol/HDL ratio <5.0 Chol/HDL ratio 5.0-6.0 Chol/HDL ratio >6.0. Triglycerides <100 Triglycerides 100-149 Triglycerides >/= 150 - For Diabetes Mellitus Diabetes Risk Guidelines: Diabetes Low Risk: HgA1c <6.5% and/or FBG <120. Diabetes Moderate Risk: HgA1c 6.6-7.9% and/or FBG 120-180. Diabetes High Risk: HgA1c >/= 8% and/or FBG >180 - For Obesity/Overweight Obesity/Overweight Risk Guidelines: Obesity Low Risk: BMI <25.0. Obesity Moderate Risk: BMI 25-29.9. Obesity High Risk: BMI >/= 30.0 - For Hypertension Hypertension Risk Guidelines: Hypertension Low Risk: Systolic <120 and Diastolic <80. Hypertension Moderate Risk: Systolic 120-139 and Diastolic 80-89. Hypertension High Risk: Systolic >/= 140 and Diastolic >/= 90 - For Sedentary Lifestyle Sedentary Lifestyle Risk Guidelines: Sedentary Lifestyle Low Risk: >/= 1,500 kcal/week. Sedentary Lifestyle Moderate Risk: 700-1,499 kcal/week. Sedentary Lifestyle High Risk: < 700 kcal/week - For Depression Depression Risk Guidelines: Depression Low Risk: Not clinically depressed. Depression Moderate Risk: Mildly depressed. Depression High Risk: Clinically depressed - Family History Family History: Family History (Last Reviewed 07/22/18 @ 07:02 by Jono Alex MD) Mother Myocardial infarction Father Colon cancer Motivation - Motivation to Participate On a scale of 1 to 10, how prepared are you to commit to attending program?: 10 What do you see as barriers to successfully being able to complete the program?: none What do you see as the benefits of succesfully completing the program? In other words, what do you hope to get out of participating in the program?: get more energy and get more stamina back. Are there issues you are dealing with that will interfere with completing the program?: none Do you have a spouse or signficant other, family or friends who will help support you to complete the program?: yes
[2018-08-13 09:28] VITALS: BP 142/78; PULSE 68; RESP 18; TEMP 37.1; O2SAT 95; BMI 31.6
== END ==
PROVIDERS: Family Provider Family Medicine; PCP Family Medicine; Referring Provider Internal Medicine Cardiovascular Disease; Visit Provider Internal Medicine Cardiovascular Disease
DX: Z95.5 Presence of coronary angioplasty implant and graft (principal)

== ENCOUNTER 2018-08-13 09:20 | Emergency (ER) | payer MEDICARE, OTHER, SELFPAY ==
[2018-08-07 10:34] VITALS: BMI 31.6
[2018-08-13 09:21] VITALS: TEMP 36.7; BMI 31.9
--- NOTE | 2018-08-13 09:25 | EKG12_ITS ---
Test Reason : CP Blood Pressure : / mmHG Vent. Rate : 066 BPM Atrial Rate : 066 BPM P-R Int : 148 ms QRS Dur : 090 ms QT Int : 390 ms P-R-T Axes : 072 -06 031 degrees QTc Int : 408 ms Normal sinus rhythm Nonspecific ST abnormality Abnormal ECG Confirmed by IVA WYNN, DANA ([id number]), social media editor RIVERA EASTON ([id number]) on 08/17/2018 2:01:49 PM Referred By: Luis Alberto Madera Confirmed By:DNAA ENRIQUE MD
--- NOTE | 2018-08-13 09:33 | RAD_ITS ---
STUDY: X-RAY CHEST REASON FOR EXAM: Female, 82 years old. Chest pain. TECHNIQUE: Single AP portable view of the chest. COMPARISON: Comparison is made with prior study dated July 22, 2018. FINDINGS: EKG electrodes are seen. Stable mild increased markings at the lung bases suggestive of mild bibasilar scarring and/or atelectasis. No infiltration is seen. There is no demonstrated pleural abnormality. Normal size heart. Normal mediastinum and to. Normal visualized pulmonary arteries. There is atherosclerotic calcification of the aortic arch with tortuosity. There are diffuse degenerative changes of the visualized thoracic spine. Normal visualized ribs, clavicles, and shoulders. There is no demonstrated abnormality of the visualized soft tissue structures of the upper abdomen. RAD/Chest 1 View (Portable) IMPRESSION: Mild degree of increased markings at the lung bases suggestive of mild bibasilar scarring and/or atelectasis. There has been essentially no change. Electronically Signed: Cristiano Stout, at 10:28 EST , Service support ,
[2018-08-13] MEDS: Aspirin 81 MG TAB.CHEW 324 MG PO (09:35)
[2018-08-13 09:39] LABS: Absolute Lymphocyte Count 1.61 X10^3/ul (0.83-4.51); Absolute Neutrophil Count 4.8 X10^3/uL (2.0-7.7); Basophil# 0.04 X10^3/uL; Basophil% 0.6 % (0-1); Eosinophils% 1.4 % (0-5); Hematocrit 39.2 % (37-47); Hemoglobin 12.9 g/dl (12.0-15.0); Lymphocyte # 1.61 X10^3/ul (4.0); Mean Corp Hgb Conc 32.9 g/gl (32-36); Mean Corpuscular Hgb 29.6 pg (27.0-32.0); Mean Corpuscular Volume 89.9 fL (81-99); Mean Platelet Vol. 9.6 fl (6.2-12.0); Monocyte# 0.42 X10^3/uL; Neutrophil # 4.82 X10^3/uL (2.7-7.7); Neutrophil % 68.7 % (47-70); POSITIVE COUNT NO; POSITIVE DIFFERENTIAL NO; POSITIVE MORPHOLOGY NO; Platelet Count 224 K/mm3 (150-450); RBC Distribution Width CV 14.8 % (11.6-14.6); RBC Distribution Width SD 48.3 fl (35.1-43.9); Red Blood Count 4.36 M/mm3 (4.2-5.4)
[2018-08-13 09:53] LABS: Anion Gap 10 (5-15); BUN 24 mg/dL (7-18); BUN/Creat Ratio 22.4 RATIO (10-20); Calcium,Total 9.4 mg/dL (8.5-10.1); Chloride 102 mmol/L (98-107); Creatinine, Serum 1.07 mg/dL (0.55-1.02); EST Glomerular Filtration Rate 52 mL/min (>60); Est Glom Filt Rate - Afr Amer 63 mL/min (>60); Estimated Creatinine Clearance 31.64 ml/min; Glucose 132 mg/dL (74-106); Potassium 3.8 mmol/L (3.5-5.1); Sodium Level 140 mmol/L (136-145)
--- NOTE | 2018-08-13 09:53 | ED.DCSUM_ITS ---
- ER Visit Summary Date of Service: 08/13/18 Chief Complaint: Angina History of Present Illness: The patient is a 82 F with pain in her left jaw, left shoulder, and left upper back. Patient had similar symptoms in the past with angina and required coronary stents. Her most recent catheterization and stenting was July 22 of this month. She had a drug-eluting stent to her mid RCA. Patient also has mild stenosis of her circumflex artery and mild stent stenosis of her LAD stent. Patient has been taking aspirin and Plavix as instructed. Nothing seems to make her symptoms worse. She said they have been constant over the last 3 days. She has had some shortness of breath but no other associated symptoms. Physical Examination: Afebrile and vital signs unremarkable except for a blood pressure of 181/54. Alert and oriented. No acute distress. Sitting comfortably. Heart regular rate and rhythm. Lungs clear. Abdomen soft and nontender. Extremities nontender with no edema. Skin normal in color without diaphoresis or pallor. Test Results: She showed sinus rhythm at a rate of [address] changes. No sign of acute ischemia or infarction pattern. Laboratory studies and chest x-ray pending. Emergency Department Course and Treatment: Patient was placed on a monitor and treated with aspirin while awaiting results. CBC normal. BMP unremarkable. Troponin normal. Chest x-ray showed mild bibasilar atelectasis versus scarring. Patient was comfortable on reevaluation. She was discussed with Dr. Patel. We reviewed her medications. We will add Imdur 30 mg daily, first dose now. We will check a delta troponin in 3 hours and have her follow-up as an outpatient. Her troponin was negative. Patient is stable. Will be discharged to follow-up as an outpatient. Treatment Plan: As above Disposition: Discharge Impression: 1. Chest pain This note was generated with [employer] software. It may contain incorrect words, spelling, and punctuation that were not noted in review of the chart prior to signing ED Disposition - Plan for ED Patient: Referrals: Boyd Casiano MD [Primary Care Provider] -
[2018-08-13 10:48] VITALS: BP 140/53; PULSE 68; RESP 16; O2SAT 97
[2018-08-13] MEDS: Isosorbide Mononitrate 30 MG Tablet PO (10:50)
--- NOTE | 2018-08-13 13:19 | ED.DEP ---
ED Disposition - Plan for ED Patient: Instructions: ED Chest Pain Atypical Unkn Cause Prescriptions: Isosorbide Mononitrate [Imdur] 30 mg PO DAILY #30 tab Referrals: Luis Alberto Madera MD [STAFF PHYSICIAN] -
[2018-08-13 13:31] VITALS: BP 133/68; BP 133/8; PULSE 57; PULSE 8; RESP 17; O2SAT 92; O2SAT 94
== END 2018-08-13 13:34 | disposition home or self-care (01) ==
LOC: ED 09:59
PROVIDERS: Emergency Provider Emergency Medicine; Family Provider Family Medicine; PCP Family Medicine
DX: R07.9 Chest pain, unspecified (principal); I25.10 Atherosclerotic heart disease of native coronary artery without angina pectoris; I10 Essential (primary) hypertension; Z79.02 Long term (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 antithrombotics/antiplatelets; Z79.82 Long term (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 aspirin; Z79.899 Other long term (current) drug therapy
CPT/HCPCS: 71045; 80048; 84484; 85025; 93005; 99285; A4216

== ENCOUNTER → 2018-09-10 07:40 | Outpatient (CLI) | payer MEDICARE, OTHER, SELFPAY ==
[2018-08-19 14:57] VITALS: BMI 32.3
[2018-09-10 10:11] LABS: AST(SGOT) 26 U/L (15-37); Alanine Aminotransfer ALT/SGPT 26 U/L (13-56); Albumin, Serum 3.9 g/dL (3.2-5.0); Alkaline Phosphatase 56 U/L (45-117); Bilirubin, Direct 0.17 mg/dL (0.00-0.30); Cholesterol 97 mg/dL (200); Globulin 3.9 g/dL (2.2-4.2); High Density Lipoprotein 41 mg/dL; Protein, Total 7.8 g/dL (6.4-8.2); Triglycerides 115 mg/dL; Very Low Density Lipoprotein 23 mg/dL (5-40)
== END ==
PROVIDERS: Family Provider Family Medicine; PCP Family Medicine; Referring Provider Nurse Practitioner Family; Visit Provider Nurse Practitioner Family
DX: E78.5 Hyperlipidemia, unspecified (principal); I25.10 Atherosclerotic heart disease of native coronary artery without angina pectoris
CPT/HCPCS: 36415; 80061; 80076

== ENCOUNTER 2018-09-11 14:15 | Outpatient (RCR) | payer MEDICARE, OTHER, SELFPAY ==
[2018-08-13 09:41] VITALS: BMI 31.9
--- NOTE | 2018-09-09 08:43 | CR.ITP_ITS ---
Exercise - 30-day Assessment - Visit Date of Eval: 09/09/18 Session #:: 11 - Stages of Change Stages of Change:: Action - Physician Prescribed Exercise Modalities: Treadmill, Biodyne, NuStep, SciFit Frequency (days/week): 3 Duration (Minutes):: 30-45 Intensity: 60-80% age predicted maximum heart rate reserve METs - Progression: 0.5-1.0 MET, RPE 11-14 WEEK: 3.5 Target Heart Rate:: 112-119 - Hypertension Resting Blood Pressure:: 118/40 Peak Exercise Blood Pressure:: 142/50 Medication Changes:: No - Intervention Home Exercise/Activity Goal:: Moderate Exercise 30 min/day x 5 days/wk - Education Goals:: Warm-up, RPE CARINE Scale, S/S, Safe Exercise, Self-Monitoring - Exercise Program Goals Exercise Program Goals: Aerobic Activity >30 min Nutrition - Initial Assessment - Program Goals Nutrition Program Goals: LDL <70. Total Cholesterol <200. HDL >45. Triglycerides <150. HgbA1C <7%. BMI <25 - Diabetes Do you monitor your blood sugar at home?: No Nutrition - 30-Day Assessment - Program Goals Nutrition Program Goals: LDL <70. Total Cholesterol <200. HDL >45. Triglycerides <150. HgbA1C <7%. BMI <25 - Visit Date of Eval: 09/09/18 - Stages of Change Stages of Change:: Action - Lipids Has the patient seen the dietitian?: No - Diabetes Diabetes:: No - Weight Management Weight:: 172 lb - Intervention Referral to dietitian:: No Will attend diet classes:: Yes - Education Attended class for:: Healthy eating Tobacco - Initial Assessment - Program Goals Tobacco Program Goals: Complete smoking cessation. Attend education classes. Improve Knowledge Test score - Learning Barriers Learning Barriers: Ready to Learn Tobacco - 30-Day Assessment - Program Goals Tobacco Program Goals: Complete smoking cessation. Attend education classes. Improve Knowledge Test score - Stage of Change Stages of Change:: Action - Learning Barriers Learning Barriers: Participates in education - Family Support Do you have family support?: Yes - Tobacco Use Tobacco Use: Non-smoker Do you use smokeless tobacco?: No - Intervention Smoking Cessation Referral:: No Education Schedule Given:: Yes - Education Attended class for:: Coronary artery disease, Risk factors, Sexuality, Medical compliance, Cardiac A&P, Angina signs & symptoms Psychosocial - Initial Assess - Target Goals Target Goals: Assess presence or absence of depression. Using a valid screening tool, maximizes coping skills. Positive support system - Psychosocial Test Tool Used:: HANDS Depression Questionnaire - Assistive Devices Fall Risk Assessed:: Yes Psychosocial - 30-Day Assess - Target Goals Target Goals: Assess presence or absence of depression. Using a valid screening tool, maximizes coping skills. Positive support system - Stages of Change Stages of Change:: Action - Psychosocial Test Tool Used:: HANDS Depression Questionnaire - Intervention PS - Interventions: Yes Attend Stress Management Classes, Yes Uses Stress Management Skills, No Referral to Mental Health, No Referral to [facility] Case Management, No Referral to Physician - Education Attended classes for:: Coping techniques, Signs & symptoms of depression, Stress management, Relaxation techniques - Patient/Program Goal Preventative Medication(s):: Aspirin, Clopidogrel, Beta skylar, Statin/lipid - Assistive Devices Assistive Devices:: None Fall Risk Assessed:: Yes Patient Health Questionnaire 30-Day Re-eval Assessment 1. Little interest or pleasure in doing things: Not at all 2. Feeling down, depressed, or hopeless: Not at all 3. Trouble falling or staying asleep, or sleeping too much: More than half the days 4. Feeling tired or having little energy: Not at all 5. Poor appetite or overeating: Not at all 6. Feeling bad about yourself -- or that you are a failure or have let yourself or your family down: Not at all 7. Trouble concentrating on things, such as reading the newspaper or watching television: Not at all 8. Moving or speaking so slowly that other people could have noticed. Or the opposite - being so fidgety or restless that you have been moving around a lot more than usual: Not at all 9. Thoughts that you would be better off , or of hurting yourself in some way: Not at all How difficult have these problems made it for you to do your work, take care of things at home, or get along with other people?: Not difficult at all Total Score: 2 Self-Efficacy 30-Day Re-eval Assessment We would like to know how confident you are in doing certain activities. Please select your confidence level for:: Select your confidence level for the following using the scale 1-10 where 1 is not at all confident and 10 is totally confident. Your score is the average of all 6 responses. Fatigue: How confident are you that you can keep the fatigue caused by your disease from interfering with the things you want to do? Select Number: 8 Physical Discomfort or Pain: How confident are you that you can keep the physical discomfort or pain of your disease from interfering with the things you want to do? Select Number: 8 Emotional Distress: How confident are you that you can keep the emotional distress caused by your disease from interfering with the things you want to do? Select Number: 10 Other Symptoms or Health Problems: How confident are you that you can keep other symptoms or health problems from interfering with the things you want to do? Select Number: 10 Different Tasks and Activities: How confident are you that you can do the different tasks and activities needed to manage your health condition so as to reduce your need to see a doctor? Select Number: 10 Medication: How confident are you that you can do things other than just taking medication to reduce how much your illness affects your everyday life? Select Number: 10 Total Score:: 9
[2018-09-09 08:51] VITALS: BP 118/40; BP 142/50
== END 2018-09-13 23:59 ==
LOC: CR 14:15
PROVIDERS: Family Provider Family Medicine; PCP Family Medicine; Referring Provider Internal Medicine Cardiovascular Disease; Visit Provider Internal Medicine Cardiovascular Disease
DX: I25.10 Atherosclerotic heart disease of native coronary artery without angina pectoris (principal); Z95.5 Presence of coronary angioplasty implant and graft
CPT/HCPCS: 93798

== ENCOUNTER 2018-10-12 14:15 | Outpatient (RCR) | payer MEDICARE, OTHER, SELFPAY ==
[2018-09-14 00:19] VITALS: BP 118/40; BP 142/50; BMI 31.9
--- NOTE | 2018-10-09 08:10 | CR.ITP_ITS ---
General Information - General Information Admitting Diagnosis: PCI with stent - Education/Goals Cardiac Rehabilitation Goals: 1. Maintain the individual as the primary focus of care. 2. To improve the patient's quality of life. 3. Identification of cardiac risk factors and provide cardiac risk factor management. 4. Enhance the psychosocial status of the patient. 5. Reconditioning enough to allow the patient to resume customary activities. 6. Control symptoms of cardiac disease Scale for measuring improvement of personal goals: Enter appropriate number in Comments. 2 = Unchanged. 3 = Slightly Better. 4 = Moderate Improvement. 5 = Met my Goal Exercise - 60-Day Assessment - Visit Date of Eval: 10/09/18 Session #:: 23 - Stages of Change Stages of Change:: Action - Physician Prescribed Exercise Modalities: Treadmill, Biodyne, NuStep Frequency (days/week): 3 Duration (Minutes):: 30-45 Intensity: 60-80% age predicted maximum heart rate reserve METs - Progression: 0.5-1.0 MET, RPE 11-14 WEEK: 5 Target Heart Rate:: 112-119 Max HR 84 - Hypertension Resting Blood Pressure:: 134/56 Peak Exercise Blood Pressure:: 166/44 - Intervention Home Exercise/Activity Goal:: Moderate Exercise 30 min/day x 5 days/wk - Education Goals:: Warm-up, RPE ACRINE Scale, S/S, Safe Exercise, Self-Monitoring - Exercise Program Goals Exercise Program Goals: Aerobic Activity >30 min, B/P <130/80 Nutrition - Initial Assessment - Program Goals Nutrition Program Goals: LDL <70. Total Cholesterol <200. HDL >45. Triglycerides <150. HgbA1C <7%. BMI <25 - Diabetes Do you monitor your blood sugar at home?: No Nutrition - 60-Day Assessment - Program Goals Nutrition Program Goals: LDL <70. Total Cholesterol <200. HDL >45. Triglycerides <150. HgbA1C <7%. BMI <25 - Visit Date of Eval: 10/09/18 - Stages of Change Stages of Change:: Action - Lipids Has the patient seen the dietitian?: No - Weight Management Weight:: 78.245 kg - Intervention Referral to dietitian:: No Referral to Diabetic Clinic:: No Will attend diet classes:: Yes - Education Attended class for:: Signs & symptoms of hypoglycemia, Signs & symptoms of hyperglycemia, Relate diabetes to coronary artery disease, Healthy eating Tobacco - Initial Assessment - Program Goals Tobacco Program Goals: Complete smoking cessation. Attend education classes. Improve Knowledge Test score - Learning Barriers Learning Barriers: Ready to Learn Tobacco - 60-Day Assessment - Program Goals Tobacco Program Goals: Complete smoking cessation. Attend education classes. Improve Knowledge Test score - Stage of Change Stages of Change:: Action - Learning Barriers Learning Barriers: Participates in education - Family Support Do you have family support?: Yes - Tobacco Use Tobacco Use: Non-smoker Do you use smokeless tobacco?: No - Intervention Smoking Cessation Referral:: No Individual Education/Counseling:: No Education Schedule Given:: Yes - Education Attended class for:: Tobacco triggers, Coronary artery disease, Risk factors, Sexuality, Medical compliance, Cardiac A&P, Angina signs & symptoms Psychosocial - Initial Assess - Target Goals Target Goals: Assess presence or absence of depression. Using a valid screening tool, maximizes coping skills. Positive support system - Psychosocial Test Tool Used:: HANDS Depression Questionnaire - Assistive Devices Fall Risk Assessed:: Yes Psychosocial - 60-Day Assess - Target Goals Target Goals: Assess presence or absence of depression. Using a valid screening tool, maximizes coping skills. Positive support system - Stages of Change Stages of Change:: Action - Psychosocial Test Tool Used:: HANDS Depression Questionnaire - Intervention PS - Interventions: Yes Attend Stress Management Classes, Yes Uses Stress Management Skills, No Referral to Mental Health, No Referral to [facility] Case Management, No Referral to Physician - Education Attended classes for:: Coping techniques, Signs & symptoms of depression, Stress management, Relaxation techniques - Assistive Devices Assistive Devices:: None Fall Risk Assessed:: Yes Patient Health Questionnaire 60-Day Re-eval Assessment 1. Little interest or pleasure in doing things: Not at all 2. Feeling down, depressed, or hopeless: Not at all 3. Trouble falling or staying asleep, or sleeping too much: Not at all 4. Feeling tired or having little energy: Not at all 5. Poor appetite or overeating: Not at all 6. Feeling bad about yourself -- or that you are a failure or have let yourself or your family down: Not at all 7. Trouble concentrating on things, such as reading the newspaper or watching television: Not at all 8. Moving or speaking so slowly that other people could have noticed. Or the opposite - being so fidgety or restless that you have been moving around a lot more than usual: Not at all 9. Thoughts that you would be better off , or of hurting yourself in some way: Not at all How difficult have these problems made it for you to do your work, take care of things at home, or get along with other people?: Not difficult at all Total Score: 0 Self-Efficacy 60-Day Re-eval Assessment We would like to know how confident you are in doing certain activities. Please select your confidence level for:: Select your confidence level for the following using the scale 1-10 where 1 is not at all confident and 10 is totally confident. Your score is the average of all 6 responses. Fatigue: How confident are you that you can keep the fatigue caused by your di sease from interfering with the things you want to do? Select Number: 8 Physical Discomfort or Pain: How confident are you that you can keep the physi aniket discomfort or pain of your disease from interfering with the things you want to do? Select Number: 8 Emotional Distress: How confident are you that you can keep the emotional distress caused by your disease from interfering with the things you want to do? Select Number: 10 Other Symptoms or Health Problems: How confident are you that you can keep other symptoms or health problems from interfering with the things you want to do? Select Number: 10 Different Tasks and Activities: How confident are you that you can do the different tasks and activities needed to manage your health condition so as to reduce your need to see a doctor? Select Number: 10 Medication: How confident are you that you can do things other than just taking medication to reduce how much your illness affects your everyday life? Select Number: 10 Total Score:: 9
[2018-10-09 08:12] VITALS: BP 134/56; BP 166/44
== END 2018-10-13 23:59 ==
LOC: CR 14:15
PROVIDERS: Family Provider Family Medicine; PCP Family Medicine; Referring Provider Internal Medicine Cardiovascular Disease; Visit Provider Internal Medicine Cardiovascular Disease
DX: I25.10 Atherosclerotic heart disease of native coronary artery without angina pectoris (principal); Z95.5 Presence of coronary angioplasty implant and graft
CPT/HCPCS: 93798

== ENCOUNTER 2018-11-06 14:15 | Outpatient (RCR) | payer MEDICARE, OTHER, SELFPAY ==
[2018-10-14 00:36] VITALS: BP 134/56; BP 166/44; BMI 32.3
== END 2018-11-13 23:59 ==
LOC: CR 14:15
PROVIDERS: Family Provider Family Medicine; PCP Family Medicine; Referring Provider Internal Medicine Cardiovascular Disease; Visit Provider Internal Medicine Cardiovascular Disease
DX: I25.10 Atherosclerotic heart disease of native coronary artery without angina pectoris (principal); Z95.5 Presence of coronary angioplasty implant and graft
CPT/HCPCS: 93798

== ENCOUNTER 2018-11-12 18:41 | Observation (INO) | payer MEDICARE, OTHER, SELFPAY ==
[2018-10-14 00:36] VITALS: BMI 32.3
[2018-11-12] VITALS (8 sets, daily range): BP systolic 127–174; BP diastolic 46–66; PULSE 46–532; RESP 14–20; TEMP 36.7–36.8; O2SAT 93–96; BMI 31.2; BMI 30.8
--- NOTE | 2018-11-12 20:09 | EKG12_ITS ---
Test Reason : CP Blood Pressure : / mmHG Vent. Rate : 056 BPM Atrial Rate : 056 BPM P-R Int : 160 ms QRS Dur : 094 ms QT Int : 440 ms P-R-T Axes : 071 009 037 degrees QTc Int : 424 ms Sinus bradycardia Otherwise normal ECG Confirmed by LEO WYNN, PORTIA ([id number]), manuscript editor RIVERA EASTON ([id number]) on 11/16/2018 1:27:09 PM Referred By: TSERING Confirmed By:PORTIA BAILEY MD
--- NOTE | 2018-11-12 20:09 | RAD_ITS ---
STUDY: X-RAY CHEST REASON FOR EXAM: Female, 83 years old. Bryant shoulder pain. TECHNIQUE: Single AP portable view of the chest. COMPARISON: 05 August 2017. FINDINGS: Chronic appearing interstitial markings with no evidence of new distinct focal airspace disease. There is no demonstrated pleural abnormality. Normal size heart. Normal mediastinum and to. Normal visualized pulmonary arteries. There is atherosclerotic tortuosity of the aortic arch and descending thoracic aorta. Normal visualized thoracic spine. Normal visualized ribs, clavicles, and shoulders. There is no demonstrated abnormality of the visualized soft tissue structures of the upper abdomen. RAD/Chest 1 View (Portable) IMPRESSION: Chronic interstitial markings similar to previous exam with no evidence of new focal airspace disease. Electronically Signed: Felipe Cesar DO at 20:24 EDT , Service support ,
--- NOTE | 2018-11-12 20:19 | ED.VIS.GEN ---
History of Present Illness Chief Complaint: Chest Pain Informant: Patient, Significant Other Onset: Today Context: Sudden Onset Timing: Continuous Quality: Pain jaw and left shoulder, onset 1300 Location: Left jaw and shoulder Current Severity: Mild Maximum Severity: Moderate Worsened by: Nothing Relieved by: Nothing Associated Symptoms: no associated symptoms Narrative: Patient is an 83-year-old woman known history of coronary disease. She states she has had similar presentation 7 times. 6 of the 7 times she is required a stent. She denies associated symptoms. She has no other complaints. Her most recent cardiac cath and stent was July 2018. Prior similar symptoms: Yes Recent Illness/Hospitalization: No - Past Medical History (1) CAD (coronary artery disease) Status: Acute (2) Nonrheumatic aortic (valve) insufficiency Status: Acute (3) Nonrheumatic mitral (valve) insufficiency Status: Acute (4) Carotid artery disease Status: Chronic (5) HTN (hypertension), benign Status: Chronic (6) Hyperlipidemia Status: Chronic (7) Hypothyroidism Status: Chronic Past Medical History - Allergies and Home Meds Allergies/Adverse Reactions: Allergies Iodinated Contrast- Oral and IV Dye Allergy (Intermediate, Verified 11/12/18 18:43) Rash ramipril [From Altace] Adverse Reaction (Severe, Verified 11/12/18 18:43) cough Primary Care Physician: Boyd Casiano MD [Primary Care Provider] - Prior records reviewed: Yes Surgical History: angioplasty, cholecystectomy, - - Cardiac stents in 2003. Lives: Spouse/ Significant Other Smoking Status: Never smoker - Family History Maternal Family History: Family History (Last Reviewed 07/22/18 @ 07:02 by Jono Alex MD) Mother Myocardial infarction Father Colon cancer Family History: Reports: Heart Disease - [place] Paternal Family History: Family History (Last Reviewed 07/22/18 @ 07:02 by Jono Alex MD) Mother Myocardial infarction Father Colon cancer Family History: Reports: Cancer - colon Review of Systems General: Denies: Chills, Fever, Sweats Eyes: Denies: Visual changes - bilaterally, Diplopia ENT: Denies: Rhinorrhea, Sore throat Cardiovascular: Reports: Chest pain Respiratory: Denies: Dyspnea, Cough, Dyspnea on exertion Gastrointestinal: Denies: Abdominal pain, Nausea, Vomiting, Diarrhea, Melena, Hematochezia Genitourinary: Denies: Dysuria, Hematuria, Frequency Musculoskeletal: Denies: Back pain, Extremity Pain Skin: Denies: Rash, Wounds Neurological: Denies: Headache, Weakness, Parasthesia, Numbness Hematologic: Denies: Easy bruising, Easy bleeding Allergy: Denies: Uticaria, Swelling of the mouth Physical Exam Vital Signs/Narrative: Vital Signs Temp Pulse Resp BP Pulse Ox 11/12/18 19:30 50 L 15 157/48 H 96 11/12/18 18:41 98.2 F 59 L 16 153/61 H 96 Inital Vital Signs reviewed: Yes General: Well nourished, Well developed, No Acute Distress Head: Normocephalic, Atraumatic Eyes: Perrl, EOMI ENT: Moist mucous membranes, No rhinorrhea Neck: Supple, Nontender Cardiovascular: Regular rhythm, No murmurs, Normal S1, Normal S2, Bradycardia Respiratory: No distress, CTA bilaterally, Chest nontender Abdomen: Soft, Nontender, Nondistended, Normal bowel sounds Back: Nontender, Normal Inspection Extremities: Nontender, No edema. Negative for: Calf Tenderness Skin: Normal color, No rash, No Trauma. Negative for: Cyanosis, Diaphoresis, Jaundice Neurological: Alert, Oriented x3, Cranial nerves II-XII grossly intact, Normal Strength, Normal Sensation Psychological: Normal affect, Normal Mood Diagnostic/Tx/Re-eval Chest X-Ray - ED: 1 View, Read by ED Physician, Normal, Heart, Lungs, Mediastinum, Bony Structures, No Acute Disease, - - Read at the 19 - Rhythm Strip Rhythm Strip: Sinus Rhythm Rate: 54 Ectopy: None - EKG Initial EKG Interpretation: Sinus Bradycardia - Circular rate 54. EKG is normal other than bradycardia. - Medical Decision Making Nurse protocol initiated. Patient states she had jaw and shoulder pain 7 times. 6 of the 7 time she is gotten a stent. Concerned this is cardiac chest pain. Will work-up for non-ST elevation since there is no acute ST elevation. She require admission and consultation with her ripening room attendant Dr. Madera. Patient was treated with aspirin, nitroglycerin and Dr. Maza was notified. He contacted Dr. Madera. ED Disposition - Plan for ED Patient: Disposition: Acute Care Hospital [facility] Diagnosis: Anginal equivalent Referrals: Boyd Casiano MD [Primary Care Provider] -
[2018-11-12] MEDS: Nitroglycerin SL (ED/IMG/CATH) 0.4 MG TABLET SUBLINGUAL ×3 (20:24→20:37)
[2018-11-12 20:48] LABS: Absolute Lymphocyte Count 1.77 X10^3/ul (0.83-4.51); Absolute Neutrophil Count 4.9 X10^3/uL (2.0-7.7); Basophil# 0.04 X10^3/uL; Basophil% 0.5 % (0-1); Eosinophil# 0.18 X10^3/uL; Eosinophils% 2.4 % (0-5); Hematocrit 38.6 % (37-47); Hemoglobin 13.2 g/dl (12.0-15.0); Lymphocyte # 1.77 X10^3/ul (4.0); Lymphocyte % 23.5 % (19-41); Mean Corp Hgb Conc 34.2 g/gl (32-36); Mean Corpuscular Hgb 30.5 pg (27.0-32.0); Mean Corpuscular Volume 89.1 fL (81-99); Mean Platelet Vol. 9.9 fl (6.2-12.0); Monocyte# 0.61 X10^3/uL; Monocyte% 8.1 % (0-10); Neutrophil % 65.2 % (47-70); Platelet Count 244 K/mm3 (150-450); RBC Distribution Width CV 13.7 % (11.6-14.6); RBC Distribution Width SD 44.9 fl (35.1-43.9); Red Blood Count 4.33 M/mm3 (4.2-5.4); White Blood Count 7.5 K/mm3 (4.4-11.0)
[2018-11-12 20:49] LABS: POSITIVE COUNT NO; POSITIVE DIFFERENTIAL NO; POSITIVE MORPHOLOGY NO
[2018-11-12 20:56] LABS: International Normalized Ratio 1.1; Prothrombin Time (Protime)PT. 13.7 SECONDS (11.7-14.9)
[2018-11-12 21:07] LABS: Anion Gap 8 (5-15); BUN 21 mg/dL (7-18); BUN/Creat Ratio 18.1 RATIO (10-20); Calcium,Total 9.8 mg/dL (8.5-10.1); Chloride 104 mmol/L (98-107); Creatinine, Serum 1.16 mg/dL (0.55-1.02); EST Glomerular Filtration Rate 48 mL/min (>60); Est Glom Filt Rate - Afr Amer 58 mL/min (>60); Estimated Creatinine Clearance 30.08 ml/min; Glucose 103 mg/dL (74-106); Sodium Level 139 mmol/L (136-145)
--- NOTE | 2018-11-12 21:35 | PCM.HP.STD ---
Problem List (1) Jaw pain Status: Acute (2) Left shoulder pain Status: Acute Qualifiers: Chronicity: acute Qualified Code(s): M25.512 - Pain in left shoulder History of Present Illness Date of Admission: 11/12/18 Chief Complaint: left shoulder pain, jaw pain The patient is a 83 year old F the emergency room at [facility] with complaints of left-sided jaw pain and left shoulder pain which started approximately 1 PM on 11/12/2018. This discomfort lasted several hours and the patient came to the emergency room-since being given morphine she states the discomfort is better. Patient has a history of coronary artery disease with multiple stent placements. Patient denied any nausea vomiting or diaphoresis, she also denied any chest pain or pain in her mid back area. Work-up in the emergency room included labs which were remarkable for a creatinine of 1.16 and a BUN of 21, troponin was unremarkable, chest x-ray showed no acute disease, EKG showed normal sinus rhythm without evidence of ischemic changes. 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 Echocardiogram was also ordered for the patient. Past Medical History Past Medical History (Chronic Problems): Chronic Problems (Last Updated 07/23/18 @ 08:38 by Joi Ballard) Nonrheumatic mitral (valve) insufficiency (Chronic) Nonrheumatic aortic (valve) insufficiency (Chronic) Nonrheumatic aortic (valve) stenosis (Chronic) Carotid artery disease (Chronic) Atherosclerotic heart disease of [place] coronary artery without angina pectoris (Chronic) Previous LEANDER to proximal to mid LAD 3.0 X 32 mm Taxus 02/23/[address] Daquan Meyer, [facility];LEANDER to mid RCA 2.5 X 24 mm Synergy 01/19/[address] Patel,[facility]; PTCA/LEANDER of the mid LCX 03/10/[address] [facility]; Successful PTCA/LEANDER mid RCA with a 2.0 x 12balloon, followed by a 2.0 x 10 Angiosculpt, followed by a 2.5 x 16 Promus Synergy, post dilated with a 2.5 x 8 NC Balloon; 85%-->0%, no dissection 07/22/2018 Presence of stent in coronary artery (Chronic ~07/22/18) Previous LEANDER to proximal to mid LAD 3.0 X 32 mm Taxus 02/23/[address] Daquan Meyer, [facility];LEANDER to mid RCA 2.5 X 24 mm Synergy [facility] [facility]; PTCA/LEANDER of the mid LCX 03/10/[address] Shan [place]; Successful PTCA/LEANDER mid RCA with a 2.0 x 12balloon, followed by a 2.0 x 10 Angiosculpt, followed by a 2.5 x 16 Promus Synergy, post dilated with a 2.5 x 8 NC Balloon; 85%-->0%, no dissection 07/22/2018 CAD (coronary artery disease) (Chronic) Valvular heart disease (Chronic) Hypothyroidism (Chronic) Hyperlipidemia (Chronic) HTN (hypertension), benign (Chronic) S/P coronary artery stent placement (Chronic ~2017) LEANDER to mid RCA 2.5 X 24 mm Synergy [facility] [facility]; PTCA/LEANDER of the mid LCX 03/10/[address] Shan [place] Successful PTCA/LEANDER mid RCA with a 2.0 x 12balloon, followed by a 2.0 x 10 Angiosculpt, followed by a 2.5 x 16 Promus Synergy, post dilated with a 2.5 x 8 NC Balloon; 85%-->0%, no dissection on 07/22/2018. Medical History: Medical History (Last Updated 11/13/18 @ 02:05 by Remy Momin DO) Nonrheumatic mitral (valve) insufficiency (Chronic) I34.0 Nonrheumatic aortic (valve) insufficiency (Chronic) I35.1 Nonrheumatic aortic (valve) stenosis (Chronic) I35.0 Carotid artery disease (Chronic) I77.9 Atherosclerotic heart disease of [place] coronary artery without angina pectoris (Chronic) I25.10 Previous LEANDER to proximal to mid LAD 3.0 X 32 mm Taxus 02/23/[address] Daquan Meyer, [facility];LEANDER to mid RCA 2.5 X 24 mm Synergy [facility] [facility]; PTCA/LEANDER of the mid LCX 03/10/[address] Shan [place]IA; Successful PTCA/LEANDER mid RCA with a 2.0 x 12balloon, followed by a 2.0 x 10 Angiosculpt, followed by a 2.5 x 16 Promus Synergy, post dilated with a 2.5 x 8 NC Balloon; 85%-->0%, no dissection 07/22/2018 Chest pain (Resolved) R07.9 CAD (coronary artery disease) (Chronic) I25.10 Angina pectoris (Acute) I20.9 Valvular heart disease (Chronic) I38 Hypothyroidism (Chronic) E03.9 Hyperlipidemia (Chronic) E78.5 HTN (hypertension), benign (Chronic) I10 Aortic insufficiency (Inactive) I35.1 Allergies Iodinated Contrast- Oral and IV Dye Allergy (Intermediate, Verified 11/12/18 18:43) Rash ramipril [From Altace] Adverse Reaction (Severe, Verified 11/12/18 18:43) cough Home Medications: Ambulatory Orders Medication Instructions Recorded levothyroxine 88 mcg tablet 88 mcg PO DAILY 90 Days 06/10/17 nitroglycerin 0.4 mg sublingual 0.4 mg SUBLINGUAL Q5-15M PRN 10 06/10/17 tablet Days #2880 tab Ascorbic Acid [Vitamin C] 500 mg PO DAILY 01/16/18 Folic Acid 0.4 mg PO DAILY@0800 01/16/18 Ubidecarenone [Co Q-10] 100 mg PO DAILY 03/09/18 atorvastatin 40 mg tablet 40 mg PO DAILY 90 Days #90 tab 08/07/18 Amlodipine [Norvasc] 10 mg PO DAILY 11/12/18 Aspirin E.C. [Ecotrin] 81 mg PO DAILY@0800 11/12/18 Calcium Citrate 200 mg PO DAILY 11/12/18 Calcium Citrate 400 mg PO DAILY@1200 11/12/18 Clopidogrel Bisulfate [Clopidogrel] 75 mg PO DAILY 11/12/18 Losartan Potassium [Cozaar] 50 mg PO BID 11/12/18 Metoprolol(XL)Succ [Toprol Xl 50 mg PO DAILY 11/12/18 (Beta Tg)] Multivitamins,Therapeutic 1 tablet PO DAILY 11/12/18 [Multivitamin] [place]-3 Fatty Acids/Fish Oil [Fish 1 cap PO BID 11/12/18 Oil 1,000 mg Capsule] Potassium Chloride [K-Tab ER] 10 meq PO DAILY 11/12/18 Triamterene 37.5MG/Hctz 25MG 1 cap PO DAILY 11/12/18 [Dyazide (G)] Surgical History: Surgical History (Last Updated 07/23/18 @ 08:38 by Joi Ballard) Presence of stent in coronary artery (Chronic) Onset Date: ~07/22/18 Z95.5 Previous LEANDER to proximal to mid LAD 3.0 X 32 mm Taxus 02/23/[address] Daquan Meyer, [facility];LEANDER to mid RCA 2.5 X 24 mm Synergy 01/19/[address] Patel,[facility]; PTCA/LEANDER of the mid LCX 03/10/[address] [facility]; Successful PTCA/LEANDER mid RCA with a 2.0 x 12balloon, followed by a 2.0 x 10 Angiosculpt, followed by a 2.5 x 16 Promus Synergy, post dilated with a 2.5 x 8 NC Balloon; 85%-->0%, no dissection 07/22/2018 S/P coronary artery stent placement (Chronic) Onset Date: ~2017 Z95.5 LEANDER to mid RCA 2.5 X 24 mm Synergy 01/19/[address] Patel,[facility]; PTCA/LEANDER of the mid LCX 03/10/[address] [facility] Successful PTCA/LEANDER mid RCA with a 2.0 x 12balloon, followed by a 2.0 x 10 Angiosculpt, followed by a 2.5 x 16 Promus Synergy, post dilated with a 2.5 x 8 NC Balloon; 85%-->0%, no dissection on 07/22/2018. 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 Lives: Spouse/ Significant Other Smoking Status: Never smoker Tobacco Use: Non-smoker Alcohol: None Drugs: None - *Family History Maternal Family History: Family History (Last Reviewed 07/22/18 @ 07:02 by Jono Alex MD) Mother Myocardial infarction Father Colon cancer History Items: Heart Disease - [place] Paternal Family History: Family History (Last Reviewed 07/22/18 @ 07:02 by Jono Alex MD) Mother Myocardial infarction Father Colon cancer History Items: Cancer - colon Review of Systems Constitutional: Denies: Anorexia, Chills, Fever, Night Sweats, Malaise, Weakness, Weight Change, Fatigue Eyes: Denies: Cataracts, Conjunctivae Inflammation, Double vision, Drainage, Redness, Vision Change HEENT: Denies: Difficulty Swallowing, Dysphasia, Ear Pain, Eye Pain, Hearing Changes, Nasal bleeding, Nasal Congestion, Post Nasal Drip Cardiovascular: Reports: - - Patient complains of left jaw pain and left shoulder pain. Denies: Chest Pain, Claudication, Chest Pressure, Chest Tightness, Edema, Heaviness, Orthopnea, Palpitations Respiratory: Denies: Cough, Hemoptysis, Pleuritic Pain, Shortness of Breath, Shortness of breath at rest, Shortness of breath upon exertion Gastrointestinal: Denies: Abdominal Pain, Constipation, Diarrhea, Hematemesis, Hematochezia, Nausea, Melena, Vomiting Genitourinary: Denies: Dysuria, Frequency, Hematuria, Hesitancy, Urgency Gynecological: Denies: Breast symptoms Musculoskeletal: Reports: Joint Pain - Left shoulder pain. Denies: Joint stiffness, Joint swelling Skin: Denies: Dryness, Pruritis, Rash Neurological: Denies: Blurred vision, Double vision, Change in Speech, Slurred speech, Difficulty swallowing, Focal weakness, Headaches, Incoordination, Numbness, Tingling Psychiatric: Denies: Anxiety, Depression, Homicidal Ideations, Suicidal Ideations Endocrine: Denies: Change in Body Habitus, Heat/ Cold Intolerance, Polydipsia, Polyuria Hematologic/ Lymphatic: Denies: Adenopathy, Anemia, Easy Bruising, Easy Bleeding, Petechiae, Purpura VTE Information - Inpt Only VTE Present on Admission: No VTE Mechan Device Prophylaxis: None VTE Pharm Prophylaxis ordered?: Yes Patient Problems: Active and Suspected Problems (Last Updated 11/13/18 @ 02:05 by Remy Momin DO) Anginal equivalent (Acute) Jaw pain (Acute) Left shoulder pain (Acute) - Physical Exam General: Alert, Oriented x3, Cooperative, No apparent distress, Well developed, Well nourished HEENT: Atraumatic, PERRLA, EOMI, Normocephalic Oral: Moist Mucosa Neck: Supple, No JVD, Negative Carotid Bruits, No Nuchal Rigidity, Trachea Midline, Thyroid Normal Size and Texture Lungs: Clear to auscultation, Normal air movement, No rhonchi, No wheeze, No rales Cardiovascular: Regular rate, Regular Rhythm, Normal S1, Normal S2, No murmurs, No Ectopic Activity, PMI Normal, No rub noted, No Gallop Abdomen: Bowel Sounds Present, Soft, Non Tender, Non-Distended, No hernias noted Extremities: No clubbing, No cyanosis, No edema, Capillary Refill Less than 3 Seconds Skin: No rashes, No breakdown Musculoskeletal: No Tenderness to Palpation of Joints or Extremities Neurological: Cranial nerves II-XII grossly intact, Neuro grossly intact, Sensory exam intact to light touch and pain, Coordination normal Psych/Mental Status: Normal Affect, Appropriate, Alert and oriented to time, place, person, mood and affect Vital Signs Temp Pulse Resp BP Pulse Ox 98.2 F 46 L 20 H 139/46 H 96 11/12/18 18:41 11/12/18 21:18 11/12/18 21:18 11/12/18 21:18 11/12/18 21:18 Oxygen Flow Rate (L/min) 2 Oxygen Delivery Method Room Air Weight: 77.564 kg Body Mass Index (BMI) 31.2 Laboratory Tests Past 24 Hrs 11/12/18 11/12/18 11/12/18 20:35 20:35 20:35 WBC 7.5 RBC 4.33 Hgb 13.2 Hct 38.6 MCV 89.1 MCH 30.5 MCHC 34.2 RDW 13.7 RDW Differential 44.9 H Plt Count 244 MPV 9.9 Immature Gran % (Auto) 0.300 Neut % (Auto) 65.2 Lymph % (Auto) 23.5 [place] % (Auto) 8.1 Eos % (Auto) 2.4 Baso % (Auto) 0.5 Absolute Neuts (auto) 4.9 Absolute Lymphs (auto) 1.77 Total Counted Not Reportable PT 13.7 INR 1.1 Sodium 139 Potassium 4.0 Chloride 104 Carbon Dioxide 27.0 Anion Gap 8 BUN 21 H Creatinine 1.16 H Estim Creat Clear Calc 30.08 Est GFR (MDRD) Af Amer 58 L Est GFR (MDRD) Non-Af 48 L BUN/Creatinine Ratio 18.1 Glucose 103 Calcium 9.8 Troponin I < 0.015 Assessment/Plan All Active Problems (Last Updated 11/13/18 @ 02:05 by Remy Momin DO) Anginal equivalent (Acute) Jaw pain (Acute) Left shoulder pain (Acute) Chest pain (Resolved) Angina pectoris (Acute) #1 angina-equivalent angina due to left jaw and left shoulder pain-patient will be placed in observation status on PCU, cardiac enzymes will be cycled, she will have an echocardiogram, cardiac enzymes are unremarkable she will undergo a pharmacological resting nuclear stress test on 11/13/2018. 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
[2018-11-12] MEDS: Losartan Potassium 50 MG Tablet PO (23:01)
[2018-11-12] MEDS: Heparin Injection (Vial) 5,000 UNIT/ML VIAL 5000 UNIT SC (23:01)
[2018-11-12] MEDS: Atorvastatin Calcium 40 MG Tablet PO (23:04)
--- NOTE | 2018-11-12 23:09 | EKG12_ITS ---
Test Reason : CP ADMIT Blood Pressure : / mmHG Vent. Rate : 047 BPM Atrial Rate : 047 BPM P-R Int : 168 ms QRS Dur : 090 ms QT Int : 484 ms P-R-T Axes : 070 -07 034 degrees QTc Int : 428 ms Sinus bradycardia Otherwise normal ECG Confirmed by LEO WYNN, LUIS ALBRETO ([id number]), movie editor RIVERA EASTON ([id number]) on 11/16/2018 3:04:33 PM Referred By: Luis Alberto Bailey Confirmed By:LUIS ALBERTO BAILEY MD
[2018-11-13] VITALS (21 sets, daily range): BP systolic 100–155; BP diastolic 13–87; PULSE 49–60; RESP 9–18; TEMP 36.5–36.7; O2SAT 91–96
[2018-11-13 03:03] LABS: Absolute Lymphocyte Count 2.29 X10^3/ul (0.83-4.51); Absolute Neutrophil Count 4.5 X10^3/uL (2.0-7.7); Basophil# 0.03 X10^3/uL; Basophil% 0.4 % (0-1); Eosinophil# 0.19 X10^3/uL; Eosinophils% 2.5 % (0-5); Hematocrit 35.1 % (37-47); Hemoglobin 11.9 g/dl (12.0-15.0); Lymphocyte # 2.29 X10^3/ul (4.0); Lymphocyte % 29.9 % (19-41); Mean Corp Hgb Conc 33.9 g/gl (32-36); Mean Corpuscular Hgb 30.4 pg (27.0-32.0); Mean Corpuscular Volume 89.8 fL (81-99); Monocyte# 0.65 X10^3/uL; Monocyte% 8.5 % (0-10); Neutrophil % 58.6 % (47-70); Platelet Count 240 K/mm3 (150-450); RBC Distribution Width CV 13.6 % (11.6-14.6); RBC Distribution Width SD 43.7 fl (35.1-43.9); Red Blood Count 3.91 M/mm3 (4.2-5.4); White Blood Count 7.7 K/mm3 (4.4-11.0)
[2018-11-13 03:04] LABS: POSITIVE COUNT NO; POSITIVE DIFFERENTIAL NO; POSITIVE MORPHOLOGY NO
[2018-11-13 03:09] LABS: International Normalized Ratio 1.2; Prothrombin Time (Protime)PT. 14.6 SECONDS (11.7-14.9)
[2018-11-13 03:10] LABS: Partial Thromboplast Time 29.5 Seconds (24.1-36.2)
[2018-11-13 03:16] LABS: Anion Gap 8 (5-15); BUN 24 mg/dL (7-18); BUN/Creat Ratio 21.8 RATIO (10-20); Calcium,Total 8.9 mg/dL (8.5-10.1); Chloride 106 mmol/L (98-107); EST Glomerular Filtration Rate 51 mL/min (>60); Est Glom Filt Rate - Afr Amer 61 mL/min (>60); Estimated Creatinine Clearance 31.72 ml/min; Glucose 107 mg/dL (74-106); Potassium 3.8 mmol/L (3.5-5.1); Sodium Level 143 mmol/L (136-145)
--- NOTE | 2018-11-13 05:55 | EKG12_ITS ---
Test Reason : AM EKG Blood Pressure : / mmHG Vent. Rate : 051 BPM Atrial Rate : 051 BPM P-R Int : 180 ms QRS Dur : 094 ms QT Int : 472 ms P-R-T Axes : 027 008 027 degrees QTc Int : 435 ms Sinus bradycardia Otherwise normal ECG Confirmed by LEO WYNN, PORTIA ([id number]), editorial project manager RIVERA EASTON ([id number]) on 11/16/2018 3:03:35 PM Referred By: DR SWARTZ Confirmed By:PORTIA BAILEY MD
[2018-11-13] MEDS: Levothyroxine 88 MCG Tablet PO (06:04)
[2018-11-13] MEDS: Losartan Potassium 50 MG Tablet PO ×2 (06:04→22:13)
[2018-11-13] MEDS: Clopidogrel Bisulfate 75 MG Tablet PO (06:04)
[2018-11-13] MEDS: Aspirin E.C. 81 MG Tablet PO (06:04)
[2018-11-13] MEDS: Metoprolol(XL)Succ 50 MG Tablet PO (08:57)
[2018-11-13] MEDS: amLODIPine 10 MG Tablet PO (08:57)
[2018-11-13] MEDS: Triamterene 37.5MG/Hctz 25MG Capsule 1 CAP PO (08:57)
--- NOTE | 2018-11-13 11:29 | STRESSREP_ITS ---
Stress Test Report Date: 11-13-18 Procedure: Pharmacologic stress nuclear imaging study Indications: Chest pain; angina pectoris; CAD; PCI Consent: Per the patient Procedure: The patient underwent pharmacologic (Regadenoson) evaluation with a peak heart rate of 75 beats per minute (53 %predicted maximal heart rate) and a peak blood pressure of 168/72 mmHg. The baseline ECG demonstrated sinus bradycardia. The peak pharmacologic ECG demonstrated no obvious ECG changes. There was a rare PVC during recovery. The patient noted shoulder discomfort/jaw discomfort pretest, during infusion, and recovery. The examination was discontinued secondary to completion of protocol. Impression: 1. Pharmacologic (Regadenoson) evaluation 2. Peak pharmacologic ECG with no obvious ECG changes. 3. There was a rare PVC during recovery. 4. Nuclear images pending Myocardial perfusion imaging study: Technique: The patient was injected with 11.8 millicuries of technetium 99m Cardiolite and subsequently rest SPECT Cardiolite nuclear imaging was obtained in the horizontal long, vertical long, and short axis views. The patient underwent pharmacologic (Regadenoson) evaluation with a peak heart rate of 75 beats per minute (53 % percent predicted maximal heart rate) and a peak blood pressure of 168/72 mmHg. The patient was injected with 33.5 millicuries of technetium 99m Cardiolite and subsequently stress SPECT Cardiolite nuclear imaging was obtained in the horizontal long, vertical long, and short axis views. A gated Cardiolite study at peak stress was obtained. Interpretation: Rest and stress SPECT Cardiolite nuclear imaging status post realignment, normalization, and attenuation correction demonstrate relative uniform tracer uptake and myocardial perfusion appearing within normal limits. There is end systolic thickening and brightening. The gated Cardiolite study demonstrates myocardial thickening and inward wall motion. The reported LVEF is 84 %. Impression: 1. Rest and stress SPECT Cardiolite nuclear imaging demonstrate relative uniform tracer uptake and myocardial perfusion appearing within normal limits. 2. The gated Cardiolite study reports an LVEF of 84 %. This note was generated with [employer] software. It may contain incorrect words, spelling, and punctuation that were not noted in checking the note before signing.
--- NOTE | 2018-11-13 13:10 | DCINST_ITS ---
- Discharge Diagnoses Current Active Problems: Current Active and Chronic Problems (Last Updated 11/13/18 @ 02:05 by Remy Momin DO) Anginal equivalent (Acute) Jaw pain (Acute) Left shoulder pain (Acute) You will use the following diet at home:: Cardiac Your food should be the consistency of: Regular Your liquids should be the consistency of: Regular/Thin Discharge Activity: Return to Normal Activity Allergies/Adverse Reactions: Allergies Iodinated Contrast- Oral and IV Dye Allergy (Intermediate, Verified 11/12/18 18:43) Rash ramipril [From Altace] Adverse Reaction (Severe, Verified 11/12/18 18:43) cough Medications to take at Discharge levothyroxine 88 mcg tablet 88 mcg PO DAILY 90 Days 06/10/17 nitroglycerin 0.4 mg sublingual tablet 0.4 mg SUBLINGUAL Q5-15M PRN 10 Days #2880 tab 06/10/17 Ascorbic Acid [Vitamin C] 500 mg PO DAILY 01/16/18 Folic Acid 0.4 mg PO DAILY@0800 01/16/18 Ubidecarenone [Co Q-10] 100 mg PO DAILY 03/09/18 atorvastatin 40 mg tablet 40 mg PO DAILY 90 Days #90 tab 08/07/18 Amlodipine [Norvasc] 10 mg PO DAILY 11/12/18 Aspirin E.C. [Ecotrin] 81 mg PO DAILY@0800 11/12/18 Calcium Citrate 200 mg PO DAILY 11/12/18 Calcium Citrate 400 mg PO DAILY@1200 11/12/18 Clopidogrel Bisulfate [Clopidogrel] 75 mg PO DAILY 11/12/18 Losartan Potassium [Cozaar] 50 mg PO BID 11/12/18 Metoprolol(XL)Succ [Toprol Xl (Beta Tg)] 50 mg PO DAILY 11/12/18 Multivitamins,Therapeutic [Multivitamin] 1 tablet PO DAILY 11/12/18 [place]-3 Fatty Acids/Fish Oil [Fish Oil 1,000 mg Capsule] 1 cap PO BID 11/12/18 Potassium Chloride [K-Tab ER] 10 meq PO DAILY 11/12/18 Triamterene 37.5MG/Hctz 25MG [Dyazide (G)] 1 cap PO DAILY 11/12/18 Primary Care Physician: Boyd Casiano MD [Primary Care Provider] - Please follow up with your Primary Care Physician in: 1-2 weeks Test Results: Test results from this visit will be discussed in further detail at your follow- up appointment, if applicable. Please Follow Up With: Luis Alberto Madera MD When: 3-4 weeks Proposed Discharge Date: 11/13/18
--- NOTE | 2018-11-13 13:11 | PCM.DC.SUM ---
Discharge Date and Diagnosis - Problem List Patient Problems: Active and Suspected Problems (Last Updated 11/13/18 @ 02:05 by Remy Momin DO) Anginal equivalent (Acute) Jaw pain (Acute) Left shoulder pain (Acute) Date of Admission: 11/12/18 - Primary Discharge Diagnosis Active and Suspected Problems (Last Updated 11/13/18 @ 02:05 by Remy Momin DO) Chest pain-musculoskeletal history of CAD Hypertension, hyperlipidemia Hypothyroidism Anxiety - Secondary Discharge Diagnosis Chronic Problems (Last Updated 07/23/18 @ 08:38 by Joi Ballard) Nonrheumatic mitral (valve) insufficiency (Chronic) Nonrheumatic aortic (valve) insufficiency (Chronic) Nonrheumatic aortic (valve) stenosis (Chronic) Carotid artery disease (Chronic) Atherosclerotic heart disease of the [place] coronary artery without angina pectoris (Chronic) Previous LEANDER to proximal to mid LAD 3.0 X 32 mm Taxus 02/23/[address] Daquan Meyer, [facility];LEANDER to mid RCA 2.5 X 24 [facility] [facility] [facility]/LEANDER of the mid LCX 03/10/[address] Torrez [facility]; Successful PTCA/LEANDER mid RCA with a 2.0 x 12balloon, followed by a 2.0 x 10 Angiosculpt, followed by a 2.5 x 16 Promus Synergy, post dilated with a 2.5 x 8 [place] Balloon; 85%-->0%, no dissection 07/22/2018 Presence of stent in coronary artery (Chronic ~07/22/18) Previous LEANDER to proximal to mid LAD 3.0 X 32 mm Taxus 02/23/[address] Daquan Meyer, [facility];LEANDER to mid RCA 2.5 X 24 mm [facility] [facility] PTCA/LEANDER of the mid LCX 03/10/[address] Torrez [facility]; Successful PTCA/LEANDER mid RCA with a 2.0 x 12balloon, followed by a 2.0 x 10 Angiosculpt, followed by a 2.5 x 16 Promus Synergy, post dilated with a 2.5 x 8 NC Balloon; 85%-->0%, no dissection 07/22/2018 CAD (coronary artery disease) (Chronic) Valvular heart disease (Chronic) Hypothyroidism (Chronic) Hyperlipidemia (Chronic) HTN (hypertension), benign (Chronic) S/P coronary artery stent placement (Chronic ~2018) LEANDER to mid RCA 2.5 X 24 mm [facility] [facility] PTCA/LEANDER of the mid LCX 03/10/[address] Torrez [facility] Successful PTCA/LEANDER mid RCA with a 2.0 x 12balloon, followed by a 2.0 x 10 Angiosculpt, followed by a 2.5 x 16 Promus Synergy, post dilated with a 2.5 x 8 NC Balloon; 85%-->0%, no dissection on 07/22/2018. Hospital Course and Treatment Imaging Results: Diagnostics: 11/13/18 05:55 Nuclear Stress Test - Chemical [NM] AM (NON MEDS) Impression: 1. Rest and stress SPECT Cardiolite nuclear imaging demonstrate relative uniform tracer uptake and myocardial perfusion appearing within normal limits. 2. The gated Cardiolite study reports an LVEF of 84 %. RAD/Chest 1 View (Portable) IMPRESSION: Chronic interstitial markings similar to previous exam with no evidence of new focal airspace disease. Operations: None Procedures: Stress test Summary of Care Provided: Hospital Course: The patient is a 83 year old F notable for CAD with multiple stents this past year, last Jul 2018, who just completed cardiac rehab, who presented to the ER with left-sided shoulder pain and left jaw pain, with concerns that this was similar to how she felt when she had previous heart issues. In the ER she had negative chest x-ray, troponin, EKG. She was admitted to the PCU for concern for angina. Troponin was cycled remain negative, she had no events on telemetry overnight, repeat EKG was negative. She had a stress test that was negative. Is felt that her pain is more likely musculoskeletal. She was discharged home in stable condition. I advised her to follow-up with her PCP in 1 to 2 weeks, to follow-up with cardiology in 3 to 4 weeks. This patient was seen by Fernando John PA-C under the supervision of Doctor Bob. [] Patient Problems: Active and Suspected Problems (Last Updated 11/13/18 @ 02:05 by Remy Momin DO) Anginal equivalent (Acute) Jaw pain (Acute) Left shoulder pain (Acute) - Physical Exam General: Alert, Oriented x3, Cooperative HEENT: Atraumatic, PERRLA, EOMI, Normocephalic Neck: Supple, No JVD, Negative Carotid Bruits Lungs: Clear to auscultation, Normal air movement Cardiovascular: Regular rate, No murmurs Abdomen: Bowel Sounds Present, Soft, Non Tender Extremities: No edema, Capillary Refill Less than 3 Seconds Skin: No rashes, No breakdown Musculoskeletal: No Tenderness to Palpation of Joints or Extremities Neurological: Cranial nerves II-XII grossly intact Psych/Mental Status: Normal Affect, Appropriate Vital Signs Temp Pulse Resp BP Pulse Ox 97.8 F 54 L 15 155/69 H 94 11/13/18 08:56 11/13/18 11:04 11/13/18 08:56 11/13/18 08:56 11/13/18 08:56 Oxygen Flow Rate (L/min) 2 Oxygen Delivery Method Room Air Weight: 168 lb 6.931 oz Body Mass Index (BMI) 30.8 Intake and Output for Last 24 Hours 11/11/18 11/12/18 11/13/18 23:59 23:59 23:59 Intake Total 340 / 340 Output Total 550 / 550 Balance -210 / -210 Laboratory Tests Past 24 Hrs 11/12/18 11/12/18 11/12/18 20:35 20:35 20:35 WBC 7.5 RBC 4.33 Hgb 13.2 Hct 38.6 MCV 89.1 MCH 30.5 MCHC 34.2 RDW 13.7 RDW Differential 44.9 H Plt Count 244 MPV 9.9 Immature Gran % (Auto) 0.300 Neut % (Auto) 65.2 Lymph % (Auto) 23.5 [place] % (Auto) 8.1 Eos % (Auto) 2.4 Baso % (Auto) 0.5 Absolute Neuts (auto) 4.9 Absolute Lymphs (auto) 1.77 Total Counted Not Reportable PT 13.7 INR 1.1 APTT Sodium 139 Potassium 4.0 Chloride 104 Carbon Dioxide 27.0 Anion Gap 8 BUN 21 H Creatinine 1.16 H Estim Creat Clear Calc 30.08 Est GFR (MDRD) Af Amer 58 L Est GFR (MDRD) Non-Af 48 L BUN/Creatinine Ratio 18.1 Glucose 103 Calcium 9.8 Troponin I < 0.015 0511/13/18 11/13/18 23:15 02:45 02:45 WBC 7.7 RBC 3.91 L Hgb 11.9 L Hct 35.1 L MCV 89.8 MCH 30.4 MCHC 33.9 RDW 13.6 RDW Differential 43.7 Plt Count 240 MPV 10.0 Immature Gran % (Auto) 0.100 Neut % (Auto) 58.6 Lymph % (Auto) 29.9 [place] % (Auto) 8.5 Eos % (Auto) 2.5 Baso % (Auto) 0.4 Absolute Neuts (auto) 4.5 Absolute Lymphs (auto) 2.29 Total Counted Not Reportable PT INR APTT Sodium 143 Potassium 3.8 Chloride 106 Carbon Dioxide 29.0 Anion Gap 8 BUN 24 H Creatinine 1.10 H Estim Creat Clear Calc 31.72 Est GFR (MDRD) Af Amer 61 Est GFR (MDRD) Non-Af 51 L BUN/Creatinine Ratio 21.8 H Glucose 107 H Calcium 8.9 Troponin I < 0.015 < 0.015 11/13/18 02:45 WBC RBC Hgb Hct MCV MCH MCHC RDW RDW Differential Plt Count MPV Immature Gran % (Auto) Neut % (Auto) Lymph % (Auto) [place] % (Auto) Eos % (Auto) Baso % (Auto) Absolute Neuts (auto) Absolute Lymphs (auto) Total Counted PT 14.6 INR 1.2 APTT 29.5 Sodium Potassium Chloride Carbon Dioxide Anion Gap BUN Creatinine Estim Creat Clear Calc Est GFR (MDRD) Af Amer Est GFR (MDRD) Non-Af BUN/Creatinine Ratio Glucose Calcium Troponin I Discharge Diet: Low fat/ Low Cholesterol, 2000 mg Sodium Diet Discharge Activity: Return to Normal Activity Home Medications: Medications to take at Discharge levothyroxine 88 mcg tablet 88 mcg PO DAILY 90 Days 06/10/17 nitroglycerin 0.4 mg sublingual tablet 0.4 mg SUBLINGUAL Q5-15M PRN 10 Days #2880 tab 06/10/17 Ascorbic Acid [Vitamin C] 500 mg PO DAILY 01/16/18 Folic Acid 0.4 mg PO DAILY@0800 01/16/18 Ubidecarenone [Co Q-10] 100 mg PO DAILY 03/09/18 atorvastatin 40 mg tablet 40 mg PO DAILY 90 Days #90 tab 08/07/18 Amlodipine [Norvasc] 10 mg PO DAILY 11/12/18 Aspirin E.C. [Ecotrin] 81 mg PO DAILY@0800 11/12/18 Calcium Citrate 200 mg PO DAILY 11/12/18 Calcium Citrate 400 mg PO DAILY@1200 11/12/18 Clopidogrel Bisulfate [Clopidogrel] 75 mg PO DAILY 11/12/18 Losartan Potassium [Cozaar] 50 mg PO BID 11/12/18 Metoprolol(XL)Succ [Toprol Xl (Beta Tg)] 50 mg PO DAILY 11/12/18 Multivitamins,Therapeutic [Multivitamin] 1 tablet PO DAILY 11/12/18 [place]-3 Fatty Acids/Fish Oil [Fish Oil 1,000 mg Capsule] 1 cap PO BID 11/12/18 Potassium Chloride [K-Tab ER] 10 meq PO DAILY 11/12/18 Triamterene 37.5MG/Hctz 25MG [Dyazide (G)] 1 cap PO DAILY 11/12/18 Primary Care Physician: Boyd Casiano MD [Primary Care Provider] - Please follow up with your Primary Care Physician in: 1-2 weeks Please Follow Up With: Luis Alberto Madera MD When: 3-4 weeks Disposition: Home Minutes spent on discharge:: 35 Patient Condition:: Stable Medical Necessity - Tobacco Use Smoking Status: Never smoker Tobacco Use: Non-smoker Meaningful Use Info Meaningful Use Diagnoses (Choose all that apply): None applicable
--- NOTE | 2018-11-13 13:20 | DS.PCM_ITS ---
Discharge Date and Diagnosis - Problem List Patient Problems: Active and Suspected Problems (Last Updated 11/13/18 @ 02:05 by Remy Momin DO) Anginal equivalent (Acute) Jaw pain (Acute) Left shoulder pain (Acute) Date of Admission: 11/12/18 - Primary Discharge Diagnosis Active and Suspected Problems (Last Updated 11/13/18 @ 02:05 by Remy Momin DO) Chest pain-musculoskeletal history of CAD Hypertension, hyperlipidemia Hypothyroidism Anxiety - Secondary Discharge Diagnosis Chronic Problems (Last Updated 07/23/18 @ 08:38 by Joi Ballard) Nonrheumatic mitral (valve) insufficiency (Chronic) Nonrheumatic aortic (valve) insufficiency (Chronic) Nonrheumatic aortic (valve) stenosis (Chronic) Carotid artery disease (Chronic) Atherosclerotic heart disease of [place] coronary artery without angina pectoris (Chronic) Previous LEANDER to proximal to mid LAD 3.0 X 32 mm Taxus 02/23/[address] Daquan Meyer, [facility];LEANDER to mid RCA 2.5 X 24 mm [facility] [facility]/LEANDER of the mid LCX 03/10/[address] Torrez [facility]; Successful PTCA/LEANDER mid RCA with a 2.0 x 12balloon, followed by a 2.0 x 10 Angiosculpt, followed by a 2.5 x 16 Promus Synergy, post dilated with a 2.5 x 8 NC Balloon; 85%-->0%, no dissection 07/22/2018 Presence of stent in coronary artery (Chronic ~07/22/18) Previous LEANDER to proximal to mid LAD 3.0 X 32 mm Taxus 02/23/[address] Daquan Meyer, [facility];LEANDER to mid RCA 2.5 X 24 mm [facility] [facility]; PTCA/LEANDER of the mid LCX 03/10/[address] Torrez [facility]; Successful PTCA/LEANDER mid RCA with a 2.0 x 12balloon, followed by a 2.0 x 10 Angiosculpt, followed by a 2.5 x 16 Promus Synergy, post dilated with a 2.5 x 8 NC Balloon; 85%-->0%, no dissection 07/22/2018 CAD (coronary artery disease) (Chronic) Valvular heart disease (Chronic) Hypothyroidism (Chronic) Hyperlipidemia (Chronic) HTN (hypertension), benign (Chronic) S/P coronary artery stent placement (Chronic ~2018) LEANDER to mid RCA 2.5 X 24 mm [facility] [facility]; PTCA/LEANDER of the mid LCX 03/10/[address] Torrez [facility] Successful PTCA/LEANDER mid RCA with a 2.0 x 12balloon, followed by a 2.0 x 10 Angiosculpt, followed by a 2.5 x 16 Promus Synergy, post dilated with a 2.5 x 8 NC Balloon; 85%-->0%, no dissection on 07/22/2018. Hospital Course and Treatment Imaging Results: Diagnostics: 11/13/18 05:55 Nuclear Stress Test - Chemical [NM] AM (NON MEDS) Impression: 1. Rest and stress SPECT Cardiolite nuclear imaging demonstrate relative uniform tracer uptake and myocardial perfusion appearing within normal limits. 2. The gated Cardiolite study reports an LVEF of 84 %. RAD/Chest 1 View (Portable) IMPRESSION: Chronic interstitial markings similar to previous exam with no evidence of new focal airspace disease. Operations: None Procedures: Stress test Summary of Care Provided: Hospital Course: The patient is a 83 year old F notable for CAD with multiple stents this past year, last Jul 2018, who just completed cardiac rehab, who presented to the ER with left-sided shoulder pain and left jaw pain, with concerns that this was si milar to how she felt when she had previous heart issues. In the ER she had negative chest x-ray, troponin, EKG. She was admitted to the PCU for concern for angina. Troponin was cycled remain negative, she had no events on telemetry overnight, repeat EKG was negative. She had a stress test that was negative. Is felt that her pain is more likely musculoskeletal. She was discharged home in stable condition. I advised her to follow-up with her PCP in 1 to 2 weeks, to follow-up with cardiology in 3 to 4 weeks. This patient was seen by Fernando John PA-C under the supervision of Doctor Bob. [] Patient Problems: Active and Suspected Problems (Last Updated 11/13/18 @ 02:05 by Remy Momin DO) Anginal equivalent (Acute) Jaw pain (Acute) Left shoulder pain (Acute) - Physical Exam General: Alert, Oriented x3, Cooperative HEENT: Atraumatic, PERRLA, EOMI, Normocephalic Neck: Supple, No JVD, Negative Carotid Bruits Lungs: Clear to auscultation, Normal air movement Cardiovascular: Regular rate, No murmurs Abdomen: Bowel Sounds Present, Soft, Non Tender Extremities: No edema, Capillary Refill Less than 3 Seconds Skin: No rashes, No breakdown Musculoskeletal: No Tenderness to Palpation of Joints or Extremities Neurological: Cranial nerves II-XII grossly intact Psych/Mental Status: Normal Affect, Appropriate Vital Signs Temp Pulse Resp BP Pulse Ox 97.8 F 54 L 15 155/69 H 94 11/13/18 08:56 11/13/18 11:04 11/13/18 08:56 11/13/18 08:56 11/13/18 08:56 Oxygen Flow Rate (L/min) 2 Oxygen Delivery Method Room Air Weight: 168 lb 6.931 oz Body Mass Index (BMI) 30.8 Intake and Output for Last 24 Hours 11/11/18 11/12/18 11/13/18 23:59 23:59 23:59 Intake Total 340 / 340 Output Total 550 / 550 Balance -210 / -210 Laboratory Tests Past 24 Hrs 11/12/18 11/12/18 11/12/18 20:35 20:35 20:35 WBC 7.5 RBC 4.33 Hgb 13.2 Hct 38.6 MCV 89.1 MCH 30.5 MCHC 34.2 RDW 13.7 RDW Differential 44.9 H Plt Count 244 MPV 9.9 Immature Gran % (Auto) 0.300 Neut % (Auto) 65.2 Lymph % (Auto) 23.5 [place] % (Auto) 8.1 Eos % (Auto) 2.4 Baso % (Auto) 0.5 Absolute Neuts (auto) 4.9 Absolute Lymphs (auto) 1.77 Total Counted Not Reportable PT 13.7 INR 1.1 APTT Sodium 139 Potassium 4.0 Chloride 104 Carbon Dioxide 27.0 Anion Gap 8 BUN 21 H Creatinine 1.16 H Estim Creat Clear Calc 30.08 Est GFR (MDRD) Af Amer 58 L Est GFR (MDRD) Non-Af 48 L BUN/Creatinine Ratio 18.1 Glucose 103 Calcium 9.8 Troponin I < 0.015 11/12/18 11/13/18 11/13/18 23:15 02:45 02:45 WBC 7.7 RBC 3.91 L Hgb 11.9 L Hct 35.1 L MCV 89.8 MCH 30.4 MCHC 33.9 RDW 13.6 RDW Differential 43.7 Plt Count 240 MPV 10.0 Immature Gran % (Auto) 0.100 Neut % (Auto) 58.6 Lymph % (Auto) 29.9 [place] % (Auto) 8.5 Eos % (Auto) 2.5 Baso % (Auto) 0.4 Absolute Neuts (auto) 4.5 Absolute Lymphs (auto) 2.29 Total Counted Not Reportable PT INR APTT Sodium 143 Potassium 3.8 Chloride 106 Carbon Dioxide 29.0 Anion Gap 8 BUN 24 H Creatinine 1.10 H Estim Creat Clear Calc 31.72 Est GFR (MDRD) Af Amer 61 Est GFR (MDRD) Non-Af 51 L BUN/Creatinine Ratio 21.8 H Glucose 107 H Calcium 8.9 Troponin I < 0.015 < 0.015 11/13/18 02:45 WBC RBC Hgb Hct MCV MCH MCHC RDW RDW Differential Plt Count MPV Immature Gran % (Auto) Neut % (Auto) Lymph % (Auto) [place] % (Auto) Eos % (Auto) Baso % (Auto) Absolute Neuts (auto) Absolute Lymphs (auto) Total Counted PT 14.6 INR 1.2 APTT 29.5 Sodium Potassium Chloride Carbon Dioxide Anion Gap BUN Creatinine Estim Creat Clear Calc Est GFR (MDRD) Af Amer Est GFR (MDRD) Non-Af BUN/Creatinine Ratio Glucose Calcium Troponin I Discharge Diet: Low fat/ Low Cholesterol, 2000 mg Sodium Diet Discharge Activity: Return to Normal Activity Home Medications: Medications to take at Discharge levothyroxine 88 mcg tablet 88 mcg PO DAILY 90 Days 06/10/17 nitroglycerin 0.4 mg sublingual tablet 0.4 mg SUBLINGUAL Q5-15M PRN 10 Days #3600 tab 06/10/17 Ascorbic Acid [Vitamin C] 500 mg PO DAILY 01/16/18 Folic Acid 0.4 mg PO DAILY@0800 01/16/18 Ubidecarenone [Co Q-10] 100 mg PO DAILY 03/09/18 atorvastatin 40 mg tablet 40 mg PO DAILY 90 Days #90 tab 08/07/18 Amlodipine [Norvasc] 10 mg PO DAILY 11/12/18 Aspirin E.C. [Ecotrin] 81 mg PO DAILY@0800 11/12/18 Calcium Citrate 200 mg PO DAILY 11/12/18 Calcium Citrate 400 mg PO DAILY@1200 11/12/18 Clopidogrel Bisulfate [Clopidogrel] 75 mg PO DAILY 11/12/18 Losartan Potassium [Cozaar] 50 mg PO BID 11/12/18 Metoprolol(XL)Succ [Toprol Xl (Beta Tg)] 50 mg PO DAILY 11/12/18 Multivitamins,Therapeutic [Multivitamin] 1 tablet PO DAILY 11/12/18 [place]-3 Fatty Acids/Fish Oil [Fish Oil 1,000 mg Capsule] 1 cap PO BID 11/12/18 Potassium Chloride [K-Tab ER] 10 meq PO DAILY 11/12/18 Triamterene 37.5MG/Hctz 25MG [Dyazide (G)] 1 cap PO DAILY 11/12/18 Primary Care Physician: Boyd Casiano MD [Primary Care Provider] - Please follow up with your Primary Care Physician in: 1-2 weeks Please Follow Up With: Luis Alberto Madera MD When: 3-4 weeks Disposition: Home Minutes spent on discharge:: 35 Patient Condition:: Stable Medical Necessity - Tobacco Use Smoking Status: Never smoker Tobacco Use: Non-smoker Meaningful Use Info Meaningful Use Diagnoses (Choose all that apply): None applicable
--- NOTE | 2018-11-13 13:24 | PCM.CONS.C ---
Problem List (1) Unstable angina Status: Acute (2) CAD (coronary artery disease) Status: Chronic (3) Presence of stent in coronary artery Status: Chronic Comment: Previous LEANDER to proximal to mid LAD 3.0 X 32 mm Taxus 02/23/[address] Daquan Meyer, [facility];LEANDER to mid RCA 2.5 X 24 mm Synergy 01/19/[address] Patel,[facility]; PTCA/LEANDER of the mid LCX 03/10/[address] Torrez [facility]; Successful PTCA/LEANDER mid RCA with a 2.0 x 12balloon, followed by a 2.0 x 10 Angiosculpt, followed by a 2.5 x 16 Promus Synergy, post dilated with a 2.5 x 8 NC Balloon; 85%-->0%, no dissection 07/22/2018 (4) Valvular heart disease Status: Chronic (5) Hyperlipidemia Status: Chronic Qualifiers: Hyperlipidemia type: pure hypercholesterolemia Qualified Code(s): E78.00 - Pure hypercholesterolemia, unspecified; E78.0 - Pure hypercholesterolemia (6) HTN (hypertension), benign Status: Chronic Reason for Consult Date of Consultation: 11/13/18 History of Present Illness: The patient is a 83 year old white female with a past medical history of hyperlipidemia, hypertension, CAD, status post multivessel PCI, valvular heart disease with MR/TR and aortic valve stenosis/insufficiency who presents with concerns of unstable angina pectoris. The patient states she recently completed outpatient cardiac rehabilitation. She had been feeling well until yesterday evening. Yesterday evening she developed symptoms which she states was the same symptoms she had prior to her previous PCI procedures. This included jaw neck shoulder and chest discomfort on the left side. She did not sense any significant change in her respiratory pattern nor did she have nausea, emesis, or diaphoresis. There was no near syncope or syncope. She separately presented to the emergency department for evaluation. There she was treated with nitroglycerin sublingual and states that she had temporary relief of her symptoms. She was placed in the PCU for further evaluation and care. She underwent cardiac enzyme profile which was negative. Her ECG demonstrated sinus rhythm with no acute ECG changes. She subsequently underwent a pharmacologic stress nuclear imaging study which appeared to demonstrate no obvious evidence of ongoing myocardial ischemia. However she has continued with her aforementioned symptoms. She states that she has not requested any other medical therapy as she thought if this was not her heart then she would just have to live with it until she found another explanation. [] Past Medical History Allergies/Adverse Reactions: Allergies Iodinated Contrast- Oral and IV Dye Allergy (Intermediate, Verified 11/12/18 18:43) Rash ramipril [From Altace] Adverse Reaction (Severe, Verified 11/12/18 18:43) cough Home Medications: Ambulatory Orders Medication Instructions Recorded levothyroxine 88 mcg tablet 88 mcg PO DAILY 90 Days 06/10/17 nitroglycerin 0.4 mg sublingual 0.4 mg SUBLINGUAL Q5-15M PRN 10 06/10/17 tablet Days #2880 tab Ascorbic Acid [Vitamin C] 500 mg PO DAILY 01/16/18 Folic Acid 0.4 mg PO DAILY@0800 01/16/18 Ubidecarenone [Co Q-10] 100 mg PO DAILY 03/09/18 atorvastatin 40 mg tablet 40 mg PO DAILY 90 Days #90 tab 08/07/18 Amlodipine [Norvasc] 10 mg PO DAILY 11/12/18 Aspirin E.C. [Ecotrin] 81 mg PO DAILY@0800 11/12/18 Calcium Citrate 200 mg PO DAILY 11/12/18 Calcium Citrate 400 mg PO DAILY@1200 11/12/18 Clopidogrel Bisulfate [Clopidogrel] 75 mg PO DAILY 11/12/18 Losartan Potassium [Cozaar] 50 mg PO BID 11/12/18 Metoprolol(XL)Succ [Toprol Xl 50 mg PO DAILY 11/12/18 (Beta Tg)] Multivitamins,Therapeutic 1 tablet PO DAILY 11/12/18 [Multivitamin] [place]-3 Fatty Acids/Fish Oil [Fish 1 cap PO BID 11/12/18 Oil 1,000 mg Capsule] Potassium Chloride [K-Tab ER] 10 meq PO DAILY 11/12/18 Triamterene 37.5MG/Hctz 25MG 1 cap PO DAILY 11/12/18 [Dyazide (G)] Past Medical History (Chronic Problems): Chronic Problems (Last Updated 07/23/18 @ 08:38 by Joi Ballard) Nonrheumatic mitral (valve) insufficiency (Chronic) Nonrheumatic aortic (valve) insufficiency (Chronic) Nonrheumatic aortic (valve) stenosis (Chronic) Carotid artery disease (Chronic) Atherosclerotic heart disease of [place] coronary artery without angina pectoris (Chronic) Previous LEANDER to proximal to mid LAD 3.0 X 32 mm Taxus 02/23/[address] Daquan Meyer, [facility];LEANDER to mid RCA 2.5 X 24 [facility] [facility]; PTCA/LEANDER of the mid LCX 03/10/[address] Torrez [facility]; Successful PTCA/LEANDER mid RCA with a 2.0 x 12balloon, followed by a 2.0 x 10 Angiosculpt, followed by a 2.5 x 16 Promus Synergy, post dilated with a 2.5 x 8 NC Balloon; 85%-->0%, no dissection 07/22/2018 Presence of stent in coronary artery (Chronic ~07/22/18) Previous LEANDER to proximal to mid LAD 3.0 X 32 mm Taxus 02/23/[address] Daquan Meyer, [facility];LEANDER to mid RCA 2.5 X 24 mm [facility] [facility]; PTCA/LEANDER of the mid LCX 03/10/[address] Torrez [facility]; Successful PTCA/LEANDER mid RCA with a 2.0 x 12balloon, followed by a 2.0 x 10 Angiosculpt, followed by a 2.5 x 16 Promus Synergy, post dilated with a 2.5 x 8 NC Balloon; 85%-->0%, no dissection 07/22/2018 CAD (coronary artery disease) (Chronic) Valvular heart disease (Chronic) Hypothyroidism (Chronic) Hyperlipidemia (Chronic) HTN (hypertension), benign (Chronic) S/P coronary artery stent placement (Chronic ~2017) LEANDER to mid RCA 2.5 X 24 mm [facility] [facility]; PTCA/LEANDER of the mid LCX 03/10/[address] Shan [place] Successful PTCA/LEANDER mid RCA with a 2.0 x 12balloon, followed by a 2.0 x 10 Angiosculpt, followed by a 2.5 x 16 Promus Synergy, post dilated with a 2.5 x 8 NC Balloon; 85%-->0%, no dissection on 07/22/2018. Surgical History: angioplasty, cholecystectomy, - - Cardiac stents in 2003, one stent in January 2018, one stent in March 2018, one stent in July 2018 Psychiatric History: No pertinent psych hx [employer]ER History: No pertinent [employer] history - *Family History Maternal Family History: Family History (Last Reviewed 07/22/18 @ 07:02 by Jono Alex MD) Mother Myocardial infarction Father Colon cancer History Items: Heart Disease - [place] Paternal Family History: Family History (Last Reviewed 07/22/18 @ 07:02 by Jono Alex MD) Mother Myocardial infarction Father Colon cancer History Items: Cancer - colon Lives: Spouse/ Significant Other Smoking Status: Never smoker Tobacco Use: Non-smoker Alcohol: None Drugs: None Review of Systems - Review of Systems General: Denies: Fever, Night Sweats, Fatigue Cardiovascular: Reports: Chest Discomfort, Chest Discomfort at Rest. Denies: Shortness of Breath, Orthopnea, PND, Peripheral Edema, Palpitations, Lightheadedness, Dizziness, Near Syncope, Syncope Respiratory: Denies: Cough, Sputum Production, Hemoptysis Gastrointestinal: Denies: Hematemesis, Hematochezia, Melena Genitourinary: Denies: Dysuria, Hematuria Skin: Denies: Rash Subjectve: This is an 83-year-old white female who appears to be resting comfortably at the moment in no acute distress. Objective: Vital Signs Temp Pulse Resp BP Pulse Ox 97.8 F 54 L 15 155/69 H 94 11/13/18 08:56 11/13/18 11:04 11/13/18 08:56 11/13/18 08:56 11/13/18 08:56 Oxygen Flow Rate (L/min) 2 Oxygen Delivery Method Room Air Weight: 168 lb 6.931 oz Body Mass Index (BMI) 30.8 Intake and Output for Last 24 Hours 11/11/18 11/12/18 11/13/18 23:59 23:59 23:59 Intake Total 340 / 340 Output Total 550 / 550 Balance -210 / -210 General: Awake, Alert, Oriented x 3, Cooperative, No Acute Distress HEENT: Atraumatic, Normocephalic, PERRL, EOMI, Sclera Non Icteric Oral: Moist Mucosa Neck: Supple, Good ROM, No JVD Lungs: Clear to auscultation Cardiovascular: Regular Rhythm, Normal S1, Normal S2 Murmur Murmur: Grade 3/6, Harsh, Mid Systolic, LLSB, LVOT, Sternal Notch Abdomen: Bowel Sounds Present, Soft, Non Tender Extremities: Trace RLE Edema, Trace LLE Edema Neurological: No Focal Motor or Sensory Deficit Psych/Mental Status: Appropriate 11/12/18 20:35: WBC 7.5, RBC 4.33, Hgb 13.2, Hct 38.6, MCV 89.1, MCH 30.5, MCHC 34.2, RDW 13.7, RDW Differential 44.9 H, Plt Count 244, MPV 9.9, Immature Gran % (Auto) 0.300, Neut % (Auto) 65.2, Lymph % (Auto) 23.5, Bradley % (Auto) 8.1, Eos % (Auto) 2.4, Baso % (Auto) 0.5, Absolute Neuts (auto) 4.9, Total Counted Not Reportable 11/12/18 20:35: PT 13.7, INR 1.1 11/12/18 20:35: Sodium 139, Potassium 4.0, Chloride 104, Carbon Dioxide 27.0, Anion Gap 8, BUN 21 H, Creatinine 1.16 H, Est GFR (MDRD) Af Amer 58 L, Est GFR (MDRD) Non-Af 48 L, BUN/Creatinine Ratio 18.1, Glucose 103, Calcium 9.8, Troponin I < 0.015 11/12/18 23:15: Troponin I < 0.015 11/13/18 02:45: Sodium 143, Potassium 3.8, Chloride 106, Carbon Dioxide 29.0, Anion Gap 8, BUN 24 H, Creatinine 1.10 H, Est GFR (MDRD) Af Amer 61, Est GFR (MDRD) Non-Af 51 L, BUN/Creatinine Ratio 21.8 H, Glucose 107 H, Calcium 8.9, Troponin I < 0.015 11/13/18 02:45: WBC 7.7, RBC 3.91 L, Hgb 11.9 L, Hct 35.1 L, MCV 89.8, MCH 30.4, MCHC 33.9, RDW 13.6, RDW Differential 43.7, Plt Count 240, MPV 10.0, Immature Gran % (Auto) 0.100, Neut % (Auto) 58.6, Lymph % (Auto) 29.9, Bradley % (Auto) 8.5, Eos % (Auto) 2.5, Baso % (Auto) 0.4, Absolute Neuts (auto) 4.5, Total Counted Not Reportable 11/13/18 02:45: PT 14.6, INR 1.2, APTT 29.5 Rhythm: Sinus rhythm EKG: Sinus rhythm ECHO: 03-24-18 Left ventricle normal with an LVEF 65%; mild left atrial enlargement; mild to moderate mitral annular calcification; mild diffuse mitral valve thickening with mild focal mitral valve calcification of the anterior leaflet with mitral valve doming; mild MR; mild to moderate TR; mild aortic valve stenosis; mild AI; estimated RV systolic pressure 28 mmHg; decreased diastolic compliance Stress Test: Stress Test Report Date: 11-13-18 Procedure: Pharmacologic stress nuclear imaging study Indications: Chest pain; angina pectoris; CAD; PCI Consent: Per the patient Procedure: The patient underwent pharmacologic (Regadenoson) evaluation with a peak heart rate of 75 beats per minute (53 %predicted maximal heart rate) and a peak blood pressure of 168/72 mmHg. The baseline ECG demonstrated sinus bradycardia. The peak pharmacologic ECG demonstrated no obvious ECG changes. There was a rare PVC during recovery. The patient noted shoulder discomfort/jaw discomfort pretest, during infusion, and recovery. The examination was discontinued secondary to completion of protocol. Impression: 1. Pharmacologic (Regadenoson) evaluation 2. Peak pharmacologic ECG with no obvious ECG changes. 3. There was a rare PVC during recovery. 4. Nuclear images pending Myocardial perfusion imaging study: Technique: The patient was injected with 11.8 millicuries of technetium 99m Cardiolite and subsequently rest SPECT Cardiolite nuclear imaging was obtained in the horizontal long, vertical long, and short axis views. The patient underwent pharmacologic (Regadenoson) evaluation with a peak heart rate of 75 beats per minute (53 % percent predicted maximal heart rate) and a peak blood pressure of 168/72 mmHg. The patient was injected with 33.5 millicuries of technetium 99m Cardiolite and subsequently stress SPECT Cardiolite nuclear imaging was obtained in the horizontal long, vertical long, and short axis views. A gated Cardiolite study at peak stress was obtained. Interpretation: Rest and stress SPECT Cardiolite nuclear imaging status post realignment, normalization, and attenuation correction demonstrate relative uniform tracer uptake and myocardial perfusion appearing within normal limits. There is end systolic thickening and brightening. The gated Cardiolite study demonstrates myocardial thickening and inward wall motion. The reported LVEF is 84 %. Impression: 1. Rest and stress SPECT Cardiolite nuclear imaging demonstrate relative uniform tracer uptake and myocardial perfusion appearing within normal limits. 2. The gated Cardiolite study reports an LVEF of 84 %. Cardiac Cath: 07-22-18 CORONARY ANGIOGRAPHY DOMINANCE: Right Dominant LEFT HEART ASSESSMENT Left Ventricular Ejection Fraction: by LV Gram 60 % Normal Left Ventricular systolic function LEFT MAIN: Mild calcification, Angiographically normal LEFT ANTERIOR DECENDING ARTERY: Mild luminal irregularities MID LAD: Previously placed stent is patent CIRCUMFLEX ARTERY: PROX CIRC: Moderate luminal irregularities up to 50% RIGHT CORONARY ARTERY: Instent restenosis 90 % PCI: CONCLUSIONS Successful PTCA/LEANDER mid RCA with a 2.0 x 12balloon, followed by a 2.0 x 10 Angiosculpt, followed by a 2.5 x 16 Promus Synergy, post dilated with a 2.5 x 8 NC Balloon; 85%-->0%, no dissection. CXR: 11-12-18 IMPRESSION: Chronic interstitial markings similar to previous exam with no evidence of new focal airspace disease. Assessment/Plan 1. Unstable angina pectoris The patient presents with symptoms which she states are the same symptoms she has had prior to her previous diagnosis of CAD and subsequent PCI/repeat PCI. She states she did gain relief with nitrates. However her symptoms have returned. She is undergone noninvasive evaluation as noted above. Based upon her noninvasive evaluation there was no evidence of ongoing myocardial ischemia. However with her history, her ongoing symptoms, there would be concern as to whether or not her noninvasive study was a falsely negative pharmacologic stress nuclear imaging study. Thus based upon her clinical scenario it was not reasonable the patient be reevaluated in the cardiac catheterization laboratory. The procedure and risks were discussed with her. She was agreeable to this approach. In the interim she will continue medical management. 2. CAD status post multivessel PCI The patient will continue risk factor evaluation and medical therapy as deemed appropriate. Based upon the aforementioned concerns and findings she will proceed with repeat diagnostic cardiac catheterization as noted above. 3. Valvular heart disease The patient does have underlying valvular heart disease. She has been followed by history, exam, and noninvasive studies. Thus far she has not required further valvular intervention. 4. Hyperlipidemia She will continue risk factor evaluation and care. 5. Hypertension She will continue antihypertensive therapy as deemed appropriate. Comment: The above was discussed reviewed with the patient and her . This note was generated with [employer] dictation software. It may contain incorrect words, spelling, and punctuation that were not noted in checking the note before signing.
--- NOTE | 2018-11-13 13:28 | CON.PCM_ITS ---
Problem List (1) Unstable angina Status: Acute (2) CAD (coronary artery disease) Status: Chronic (3) Presence of stent in coronary artery Status: Chronic Comment: Previous LEANDER to proximal to mid LAD 3.0 X 32 mm Taxus 02/23/[address] Daquan Meyer, [facility];LEANDER to mid RCA 2.5 X 24 mm Synergy 01/19/[address] Patel,[facility]; PTCA/LEANDER of the mid LCX 03/10/[address] Torrez [facility]; Successful PTCA/LEANDER mid RCA with a 2.0 x 12balloon, followed by a 2.0 x 10 Angiosculpt, followed by a 2.5 x 16 Promus Synergy, post dilated with a 2.5 x 8 NC Balloon; 85%-->0%, no dissection 07/22/2018 (4) Valvular heart disease Status: Chronic (5) Hyperlipidemia Status: Chronic Qualifiers: Hyperlipidemia type: pure hypercholesterolemia Qualified Code(s): E78.00 - Pure hypercholesterolemia, unspecified; E78.0 - Pure hypercholesterolemia (6) HTN (hypertension), benign Status: Chronic Reason for Consult Date of Consultation: 11/13/18 History of Present Illness: The patient is a 83 year old white female with a past medical history of hyperlipidemia, hypertension, CAD, status post multivessel PCI, valvular heart disease with MR/TR and aortic valve stenosis/insufficiency who presents with concerns of unstable angina pectoris. The patient states she recently completed outpatient cardiac rehabilitation. She had been feeling well until yesterday evening. Yesterday evening she developed symptoms which she states was the same symptoms she had prior to her previous PCI procedures. This included jaw neck shoulder and chest discomfort on the left side. She did not sense any signifi cant change in her respiratory pattern nor did she have nausea, emesis, or diaphoresis. There was no near syncope or syncope. She separately presented to the emergency department for evaluation. There she was treated with nitroglycerin sublingual and states that she had temporary relief of her symptoms. She was placed in the PCU for further evaluation and care. She underwent cardiac enzyme profile which was negative. Her ECG demonstrated sinus rhythm with no acute ECG changes. She subsequently underwent a pharmacologic stress nuclear imaging study which appeared to demonstrate no obvious evidence of ongoing myocardial ischemia. However she has continued with her aforementioned symptoms. She states that she has not requested any other medical therapy as she thought if this was not her heart then she would just have to live with it until she found another explanation. [] Past Medical History Allergies/Adverse Reactions: Allergies Iodinated Contrast- Oral and IV Dye Allergy (Intermediate, Verified 11/12/18 18:43) Rash ramipril [From Altace] Adverse Reaction (Severe, Verified 11/12/18 18:43) cough Home Medications: Ambulatory Orders Medication Instructions Recorded levothyroxine 88 mcg tablet 88 mcg PO DAILY 90 Days 06/10/17 nitroglycerin 0.4 mg sublingual 0.4 mg SUBLINGUAL Q5-15M PRN 10 06/10/17 tablet Days #2880 tab Ascorbic Acid [Vitamin C] 500 mg PO DAILY 01/16/18 Folic Acid 0.4 mg PO DAILY@0800 01/16/18 Ubidecarenone [Co Q-10] 100 mg PO DAILY 03/09/18 atorvastatin 40 mg tablet 40 mg PO DAILY 90 Days #90 tab 08/07/18 Amlodipine [Norvasc] 10 mg PO DAILY 11/12/18 Aspirin E.C. [Ecotrin] 81 mg PO DAILY@0800 11/12/18 Calcium Citrate 200 mg PO DAILY 11/12/18 Calcium Citrate 400 mg PO DAILY@1200 11/12/18 Clopidogrel Bisulfate [Clopidogrel] 75 mg PO DAILY 11/12/18 Losartan Potassium [Cozaar] 50 mg PO BID 11/12/18 Metoprolol(XL)Succ [Toprol Xl 50 mg PO DAILY 11/12/18 (Beta Tg)] Multivitamins,Therapeutic 1 tablet PO DAILY 11/12/18 [Multivitamin] [place]-3 Fatty Acids/Fish Oil [Fish 1 cap PO BID 11/12/18 Oil 1,000 mg Capsule] Potassium Chloride [K-Tab ER] 10 meq PO DAILY 11/12/18 Triamterene 37.5MG/Hctz 25MG 1 cap PO DAILY 11/12/18 [Dyazide (G)] Past Medical History (Chronic Problems): Chronic Problems (Last Updated 07/23/18 @ 08:38 by Joi Ballard) Nonrheumatic mitral (valve) insufficiency (Chronic) Nonrheumatic aortic (valve) insufficiency (Chronic) Nonrheumatic aortic (valve) stenosis (Chronic) Carotid artery disease (Chronic) Atherosclerotic heart disease of [place] coronary artery without angina pectoris (Chronic) Previous LEANDER to proximal to mid LAD 3.0 X 32 mm Taxus 02/23/[address] Daquan Meyer, [facility];LEANDER to mid RCA 2.5 X 24 [facility] [facility]/LEANDER of the mid LCX 03/10/[address] Torrez [facility]; Successful PTCA/LEANDER mid RCA with a 2.0 x 12balloon, followed by a 2.0 x 10 Angiosculpt, followed by a 2.5 x 16 Promus Synergy, post dilated with a 2.5 x 8 NC Balloon; 85%-->0%, no dissection 07/22/2018 Presence of stent in coronary artery (Chronic ~07/22/18) Previous LEANDER to proximal to mid LAD 3.0 X 32 mm Taxus 02/23/[address] Daquan Meyer, [facility];LEANDER to mid RCA 2.5 X 24 mm [facility] [facility] [facility] PTCA/LEANDER of the mid LCX 03/10/[address] Torrez [facility]; Successful PTCA/LEANDER mid RCA with a 2.0 x 12balloon, followed by a 2.0 x 10 Angiosculpt, followed by a 2.5 x 16 Promus Synergy, post dilated with a 2.5 x 8 NC Balloon; 85%-->0%, no dissection 07/22/2018 CAD (coronary artery disease) (Chronic) Valvular heart disease (Chronic) Hypothyroidism (Chronic) Hyperlipidemia (Chronic) HTN (hypertension), benign (Chronic) S/P coronary artery stent placement (Chronic ~2017) LEANDER to mid RCA 2.5 X 24 [facility] [facility] PTCA/LEANDER of the mid LCX 03/10/[address] Torrez [facility] Successful PTCA/LEANDER mid RCA with a 2.0 x 12balloon, followed by a 2.0 x 10 Angiosculpt, followed by a 2.5 x 16 Promus Synergy, post dilated with a 2.5 x 8 NC Balloon; 85%-->0%, no dissection on 07/22/2018. 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 - *Family History Maternal Family History: Family History (Last Reviewed 07/22/18 @ 07:02 by Jono Alex MD) Mother Myocardial infarction Father Colon cancer History Items: Heart Disease - DC Paternal Family History: Family History (Last Reviewed 07/22/18 @ 07:02 by Jono Alex MD) Mother Myocardial infarction Father Colon cancer History Items: Cancer - colon Lives: Spouse/ Significant Other Smoking Status: Never smoker Tobacco Use: Non-smoker Alcohol: None Drugs: None Review of Systems - Review of Systems General: Denies: Fever, Night Sweats, Fatigue Cardiovascular: Reports: Chest Discomfort, Chest Discomfort at Rest. Denies: Shortness of Breath, Orthopnea, PND, Peripheral Edema, Palpitations, Lightheadedness, Dizziness, Near Syncope, Syncope Respiratory: Denies: Cough, Sputum Production, Hemoptysis Gastrointestinal: Denies: Hematemesis, Hematochezia, Melena Genitourinary: Denies: Dysuria, Hematuria Skin: Denies: Rash Subjectve: This is an 83-year-old white female who appears to be resting comfortably at the moment in no acute distress. Objective: Vital Signs Temp Pulse Resp BP Pulse Ox 97.8 F 54 L 15 155/69 H 94 11/13/18 08:56 11/13/18 11:04 11/13/18 08:56 11/13/18 08:56 11/13/18 08:56 Oxygen Flow Rate (L/min) 2 Oxygen Delivery Method Room Air Weight: 168 lb 6.931 oz Body Mass Index (BMI) 30.8 Intake and Output for Last 24 Hours 11/11/18 11/12/18 11/13/18 23:59 23:59 23:59 Intake Total 340 / 340 Output Total 550 / 550 Balance -210 / -210 General: Awake, Alert, Oriented x 3, Cooperative, No Acute Distress HEENT: Atraumatic, Normocephalic, PERRL, EOMI, Sclera Non Icteric Oral: Moist Mucosa Neck: Supple, Good ROM, No JVD Lungs: Clear to auscultation Cardiovascular: Regular Rhythm, Normal S1, Normal S2 Murmur Murmur: Grade 3/6, Harsh, Mid Systolic, LLSB, LVOT, Sternal Notch Abdomen: Bowel Sounds Present, Soft, Non Tender Extremities: Trace RLE Edema, Trace LLE Edema Neurological: No Focal Motor or Sensory Deficit Psych/Mental Status: Appropriate 11/12/18 20:35: WBC 7.5, RBC 4.33, Hgb 13.2, Hct 38.6, MCV 89.1, MCH 30.5, MCHC 34.2, RDW 13.7, RDW Differential 44.9 H, Plt Count 244, MPV 9.9, Immature Gran % (Auto) 0.300, Neut % (Auto) 65.2, Lymph % (Auto) 23.5, [place] % (Auto) 8.1, Eos % (Auto) 2.4, Baso % (Auto) 0.5, Absolute Neuts (auto) 4.9, Total Counted Not Reportable 11/12/18 20:35: PT 13.7, INR 1.1 11/12/18 20:35: Sodium 139, Potassium 4.0, Chloride 104, Carbon Dioxide 27.0, Anion Gap 8, BUN 21 H, Creatinine 1.16 H, Est GFR (MDRD) Af Amer 58 L, Est GFR (MDRD) Non-Af 48 L, BUN/Creatinine Ratio 18.1, Glucose 103, Calcium 9.8, Troponin I < 0.015 11/12/18 23:15: Troponin I < 0.015 11/13/18 02:45: Sodium 143, Potassium 3.8, Chloride 106, Carbon Dioxide 29.0, Anion Gap 8, BUN 24 H, Creatinine 1.10 H, Est GFR (MDRD) Af Amer 61, Est GFR (MDRD) Non-Af 51 L, BUN/Creatinine Ratio 21.8 H, Glucose 107 H, Calcium 8.9, Troponin I < 0.015 11/13/18 02:45: WBC 7.7, RBC 3.91 L, Hgb 11.9 L, Hct 35.1 L, MCV 89.8, MCH 30.4, MCHC 33.9, RDW 13.6, RDW Differential 43.7, Plt Count 240, MPV 10.0, Immature Gran % (Auto) 0.100, Neut % (Auto) 58.6, Lymph % (Auto) 29.9, [place] % (Auto) 8.5, Eos % (Auto) 2.5, Baso % (Auto) 0.4, Absolute Neuts (auto) 4.5, Total Counted Not Reportable 11/13/18 02:45: PT 14.6, INR 1.2, APTT 29.5 Rhythm: Sinus rhythm EKG: Sinus rhythm ECHO: 03-24-18 Left ventricle normal with an LVEF 65%; mild left atrial enlargement; mild to moderate mitral annular calcification; mild diffuse mitral valve thickening with mild focal mitral valve calcification of the anterior leaflet with mitral valve doming; mild MR; mild to moderate TR; mild aortic valve stenosis; mild AI; estimated RV systolic pressure 28 mmHg; decreased diastolic compliance Stress Test: Stress Test Report Date: 11-13-18 Procedure: Pharmacologic stress nuclear imaging study Indications: Chest pain; angina pectoris; CAD; PCI Consent: Per the patient Procedure: The patient underwent pharmacologic (Regadenoson) evaluation with a peak heart rate of 75 beats per minute (53 %predicted maximal heart rate) and a peak blood pressure of 168/72 mmHg. The baseline ECG demonstrated sinus bradycardia. The peak pharmacologic ECG demonstrated no obvious ECG changes. There was a rare PVC during recovery. The patient noted shoulder discomfort/jaw discomfort pretest, during infusion, and recovery. The examination was discontinued secondary to completion of protocol. Impression: 1. Pharmacologic (Regadenoson) evaluation 2. Peak pharmacologic ECG with no obvious ECG changes. 3. There was a rare PVC during recovery. 4. Nuclear images pending Myocardial perfusion imaging study: Technique: The patient was injected with 11.8 millicuries of technetium 99m Cardiolite and subsequently rest SPECT Cardiolite nuclear imaging was obtained in the horizontal long, vertical long, and short axis views. The patient underwent pharmacologic (Regadenoson) evaluation with a peak heart rate of 75 beats per minute (53 % percent predicted maximal heart rate) and a peak blood pressure of 168/72 mmHg. The patient was injected with 33.5 millicuries of technetium 99m Cardiolite and subsequently stress SPECT Cardiolite nuclear imaging was obtained in the horizontal long, vertical long, and short axis views. A gated Cardiolite study at peak stress was obtained. Interpretation: Rest and stress SPECT Cardiolite nuclear imaging status post realignment, normalization, and attenuation correction demonstrate relative uniform tracer uptake and myocardial perfusion appearing within normal limits. There is end systolic thickening and brightening. The gated Cardiolite study demonstrates myocardial thickening and inward wall motion. The reported LVEF is 84 %. Impression: 1. Rest and stress SPECT Cardiolite nuclear imaging demonstrate relative uniform tracer uptake and myocardial perfusion appearing within normal limits. 2. The gated Cardiolite study reports an LVEF of 84 %. Cardiac Cath: 07-22-18 CORONARY ANGIOGRAPHY DOMINANCE: Right Dominant LEFT HEART ASSESSMENT Left Ventricular Ejection Fraction: by LV Gram 60 % Normal Left Ventricular systolic function LEFT MAIN: Mild calcification, Angiographically normal LEFT ANTERIOR DECENDING ARTERY: Mild luminal irregularities MID LAD: Previously placed stent is patent CIRCUMFLEX ARTERY: PROX CIRC: Moderate luminal irregularities up to 50% RIGHT CORONARY ARTERY: Instent restenosis 90 % PCI: CONCLUSIONS Successful PTCA/LEANDER mid RCA with a 2.0 x 12balloon, followed by a 2.0 x 10 Angiosculpt, followed by a 2.5 x 16 Promus Synergy, post dilated with a 2.5 x 8 NC Balloon; 85%-->0%, no dissection. CXR: 11-12-18 IMPRESSION: Chronic interstitial markings similar to previous exam with no evidence of new focal airspace disease. Assessment/Plan 1. Unstable angina pectoris The patient presents with symptoms which she states are the same symptoms she has had prior to her previous diagnosis of CAD and subsequent PCI/repeat PCI. She states she did gain relief with nitrates. However her symptoms have returned. She is undergone noninvasive evaluation as noted above. Based upon her noninvasive evaluation there was no evidence of ongoing myocardial ischemia. However with her history, her ongoing symptoms, there would be concern as to whether or not her noninvasive study was a falsely negative pharmacologic stress nuclear imaging study. Thus based upon her clinical scenario it was not reasonable the patient be reevaluated in the cardiac catheterization laboratory. The procedure and risks were discussed with her. She was agreeable to this approach. In the interim she will continue medical management. 2. CAD status post multivessel PCI The patient will continue risk factor evaluation and medical therapy as deemed appropriate. Based upon the aforementioned concerns and findings she will proceed with repeat diagnostic cardiac catheterization as noted above. 3. Valvular heart disease The patient does have underlying valvular heart disease. She has been followed by history, exam, and noninvasive studies. Thus far she has not required further valvular intervention. 4. Hyperlipidemia She will continue risk factor evaluation and care. 5. Hypertension She will continue antihypertensive therapy as deemed appropriate. Comment: The above was discussed reviewed with the patient and her . This note was generated with Vaughn Burton dictation software. It may contain incorrect words, spelling, and punctuation that were not noted in checking the note before signing.
--- NOTE | 2018-11-13 13:43 | PCM.PROGNOTE ---
<Fernando John - Last Filed: 11/13/18 14:35> Patient Problems: Active and Suspected Problems (Last Updated 11/13/18 @ 02:05 by Remy Momin DO) Unstable angina (Acute) Anginal equivalent (Acute) Jaw pain (Acute) Left shoulder pain (Acute) Subjective: Pt underwent negative stress test. Taken to cathode maker per cardiology for further workup of ongoing left shoulder / jaw pain. - Physical Exam General: Alert, Oriented x3, Cooperative HEENT: Atraumatic, PERRLA, EOMI, Normocephalic Neck: Supple, No JVD, Negative Carotid Bruits Lungs: Clear to auscultation, Normal air movement Cardiovascular: Regular rate, Murmur Abdomen: Bowel Sounds Present, Soft, Non Tender Extremities: No edema, Capillary Refill Less than 3 Seconds Skin: No rashes, No breakdown Musculoskeletal: No Tenderness to Palpation of Joints or Extremities Neurological: Cranial nerves II-XII grossly intact Psych/Mental Status: Normal Affect, Appropriate Vital Signs Temp Pulse Resp BP Pulse Ox 97.8 F 54 L 15 155/69 H 94 11/13/18 08:56 11/13/18 11:04 11/13/18 08:56 11/13/18 08:56 11/13/18 08:56 Oxygen Flow Rate (L/min) 2 Oxygen Delivery Method Room Air Weight: 168 lb 6.931 oz Body Mass Index (BMI) 30.8 Intake and Output for Last 24 Hours 11/11/18 11/12/18 11/13/18 23:59 23:59 23:59 Intake Total 340 / 340 Output Total 550 / 550 Balance -210 / -210 Laboratory Tests Past 24 Hrs 11/12/18 11/12/18 11/12/18 20:35 20:35 20:35 WBC 7.5 RBC 4.33 Hgb 13.2 Hct 38.6 MCV 89.1 MCH 30.5 MCHC 34.2 RDW 13.7 RDW Differential 44.9 H Plt Count 244 MPV 9.9 Immature Gran % (Auto) 0.300 Neut % (Auto) 65.2 Lymph % (Auto) 23.5 [place] % (Auto) 8.1 Eos % (Auto) 2.4 Baso % (Auto) 0.5 Absolute Neuts (auto) 4.9 Absolute Lymphs (auto) 1.77 Total Counted Not Reportable PT 13.7 INR 1.1 APTT Sodium 139 Potassium 4.0 Chloride 104 Carbon Dioxide 27.0 Anion Gap 8 BUN 21 H Creatinine 1.16 H Estim Creat Clear Calc 30.08 Est GFR (MDRD) Af Amer 58 L Est GFR (MDRD) Non-Af 48 L BUN/Creatinine Ratio 18.1 Glucose 103 Calcium 9.8 Troponin I < 0.015 11/12/18 11/13/18 11/13/18 23:15 02:45 02:45 WBC 7.7 RBC 3.91 L Hgb 11.9 L Hct 35.1 L MCV 89.8 MCH 30.4 MCHC 33.9 RDW 13.6 RDW Differential 43.7 Plt Count 240 MPV 10.0 Immature Gran % (Auto) 0.100 Neut % (Auto) 58.6 Lymph % (Auto) 29.9 [place] % (Auto) 8.5 Eos % (Auto) 2.5 Baso % (Auto) 0.4 Absolute Neuts (auto) 4.5 Absolute Lymphs (auto) 2.29 Total Counted Not Reportable PT INR APTT Sodium 143 Potassium 3.8 Chloride 106 Carbon Dioxide 29.0 Anion Gap 8 BUN 24 H Creatinine 1.10 H Estim Creat Clear Calc 31.72 Est GFR (MDRD) Af Amer 61 Est GFR (MDRD) Non-Af 51 L BUN/Creatinine Ratio 21.8 H Glucose 107 H Calcium 8.9 Troponin I < 0.015 < 0.015 11/13/18 02:45 WBC RBC Hgb Hct MCV MCH MCHC RDW RDW Differential Plt Count MPV Immature Gran % (Auto) Neut % (Auto) Lymph % (Auto) [place] % (Auto) Eos % (Auto) Baso % (Auto) Absolute Neuts (auto) Absolute Lymphs (auto) Total Counted PT 14.6 INR 1.2 APTT 29.5 Sodium Potassium Chloride Carbon Dioxide Anion Gap BUN Creatinine Estim Creat Clear Calc Est GFR (MDRD) Af Amer Est GFR (MDRD) Non-Af BUN/Creatinine Ratio Glucose Calcium Troponin I Medical Necessity - Tobacco Use Smoking Status: Never smoker Tobacco Use: Non-smoker Assessment/Plan All Active Problems (Last Updated 11/13/18 @ 02:05 by Remy Momin DO) Unstable angina (Acute) Anginal equivalent (Acute) Jaw pain (Acute) Left shoulder pain (Acute) Chest pain (Resolved) Angina pectoris (Acute) 1. Angina - negative stress, ekg, troponin. Taken to cathode maker by cardiology 2. CAD hx multiple stents 3. HTN/HLD - home meds 4. Anxiety - temazepam DVT ppx: SCDs DC planning: pending findings of cath This patient was seen by Fernando John PA-C under the supervision of Dr. Bob <Jcarlos Bob - Last Filed: 11/13/18 17:40> Subjective: Patient was admitted with jaw pain and shortness of breath. Patient had a stress test done. She had mild shortness of breath and jaw pain during a stress test and with high suspicion of coronary artery disease and past history of stents, patient was taken for cardiac cath. - Physical Exam General: Alert, Oriented x3, Cooperative HEENT: Atraumatic, PERRLA, EOMI, Normocephalic Neck: Supple, No JVD, Negative Carotid Bruits Lungs: Clear to auscultation, Normal air movement, No rhonchi, No wheeze, No rales Cardiovascular: Regular rate, Regular Rhythm, Normal S1, Normal S2, Murmur - Systolic murmur present over aortic valve Abdomen: Bowel Sounds Present, Soft, Non Tender Extremities: No edema, Capillary Refill Less than 3 Seconds Skin: No rashes, No breakdown Musculoskeletal: No Tenderness to Palpation of Joints or Extremities Neurological: Cranial nerves II-XII grossly intact, Deep Tendon Reflexes 2+/4 and Symmetrical, Neuro grossly intact, Motor Exam 5/5 strength throughout Psych/Mental Status: Normal Affect, Appropriate Vital Signs Temp Pulse Resp BP Pulse Ox 97.7 F L 58 L 14 136/13 H 95 11/13/18 17:30 11/13/18 17:30 11/13/18 17:30 11/13/18 17:30 11/13/18 17:30 Oxygen Flow Rate (L/min) 2 Oxygen Delivery Method Room Air Weight: 168 lb 6.931 oz Body Mass Index (BMI) 30.8 Intake and Output for Last 24 Hours 11/11/18 11/12/18 11/13/18 23:59 23:59 23:59 Intake Total 340 / 340 Output Total 550 / 550 Balance -210 / -210 Laboratory Tests Past 24 Hrs 11/12/18 11/12/18 11/12/18 20:35 20:35 20:35 WBC 7.5 RBC 4.33 Hgb 13.2 Hct 38.6 MCV 89.1 MCH 30.5 MCHC 34.2 RDW 13.7 RDW Differential 44.9 H Plt Count 244 MPV 9.9 Immature Gran % (Auto) 0.300 Neut % (Auto) 65.2 Lymph % (Auto) 23.5 [place] % (Auto) 8.1 Eos % (Auto) 2.4 Baso % (Auto) 0.5 Absolute Neuts (auto) 4.9 Absolute Lymphs (auto) 1.77 Total Counted Not Reportable PT 13.7 INR 1.1 APTT Activated Clotting Time Sodium 139 Potassium 4.0 Chloride 104 Carbon Dioxide 27.0 Anion Gap 8 BUN 21 H Creatinine 1.16 H Estim Creat Clear Calc 30.08 Est GFR (MDRD) Af Amer 58 L Est GFR (MDRD) Non-Af 48 L BUN/Creatinine Ratio 18.1 Glucose 103 Calcium 9.8 Troponin I < 0.015 11/12/18 11/13/18 11/13/18 23:15 02:45 02:45 WBC 7.7 RBC 3.91 L Hgb 11.9 L Hct 35.1 L MCV 89.8 MCH 30.4 MCHC 33.9 RDW 13.6 RDW Differential 43.7 Plt Count 240 MPV 10.0 Immature Gran % (Auto) 0.100 Neut % (Auto) 58.6 Lymph % (Auto) 29.9 [place] % (Auto) 8.5 Eos % (Auto) 2.5 Baso % (Auto) 0.4 Absolute Neuts (auto) 4.5 Absolute Lymphs (auto) 2.29 Total Counted Not Reportable PT INR APTT Activated Clotting Time Sodium 143 Potassium 3.8 Chloride 106 Carbon Dioxide 29.0 Anion Gap 8 BUN 24 H Creatinine 1.10 H Estim Creat Clear Calc 31.72 Est GFR (MDRD) Af Amer 61 Est GFR (MDRD) Non-Af 51 L BUN/Creatinine Ratio 21.8 H Glucose 107 H Calcium 8.9 Troponin I < 0.015 < 0.015 11/13/18 11/13/18 02:45 14:43 WBC RBC Hgb Hct MCV MCH MCHC RDW RDW Differential Plt Count MPV Immature Gran % (Auto) Neut % (Auto) Lymph % (Auto) [place] % (Auto) Eos % (Auto) Baso % (Auto) Absolute Neuts (auto) Absolute Lymphs (auto) Total Counted PT 14.6 INR 1.2 APTT 29.5 Activated Clotting Time 274 H Sodium Potassium Chloride Carbon Dioxide Anion Gap BUN Creatinine Estim Creat Clear Calc Est GFR (MDRD) Af Amer Est GFR (MDRD) Non-Af BUN/Creatinine Ratio Glucose Calcium Troponin I Assessment/Plan This patient was seen in conjunction with Fernando CERNA. I have independently interviewed and examined the patient and reviewed pertinent history, examination findings, laboratory and plan of management. I have reviewed the note and agree with the documented findings with the few additional points. In brief, patient is admitted for jaw pain, left shoulder and shortness of breath and even though stress test was negative was taken for cardiac cath high clinical suspicion. Patient also had mild jaw pain or shortness of breath during stress test. Patient had 80% stenosis of mid RCA which was stented. Patient transferred to ICU for further follow-up and monitoring I have discussed my assessment with Fernando CERNA and orders have been reviewed. Code Visit Inpatient E&M: 13322 Subs Hosp L3
--- NOTE | 2018-11-13 13:47 | PN_ITS ---
Addendum entered and electronically signed by ERYN Manning 11/13/18 14:35: Code Visit ADDENDUM: pt discharged cancelled, taken to [facility], restenosis found. will need intervention Original Note: <Fernando John - Last Filed: 11/13/18 14:35> Patient Problems: Active and Suspected Problems (Last Updated 11/13/18 @ 02:05 by Remy Momin DO) Unstable angina (Acute) Anginal equivalent (Acute) Jaw pain (Acute) Left shoulder pain (Acute) Subjective: Pt underwent negative stress test. Taken to [facility] per cardiology for further workup of ongoing left shoulder / jaw pain. - Physical Exam General: Alert, Oriented x3, Cooperative HEENT: Atraumatic, PERRLA, EOMI, Normocephalic Neck: Supple, No JVD, Negative Carotid Bruits Lungs: Clear to auscultation, Normal air movement Cardiovascular: Regular rate, Murmur Abdomen: Bowel Sounds Present, Soft, Non Tender Extremities: No edema, Capillary Refill Less than 3 Seconds Skin: No rashes, No breakdown Musculoskeletal: No Tenderness to Palpation of Joints or Extremities Neurological: Cranial nerves II-XII grossly intact Psych/Mental Status: Normal Affect, Appropriate Vital Signs Temp Pulse Resp BP Pulse Ox 97.8 F 54 L 15 155/69 H 94 11/13/18 08:56 11/13/18 11:04 11/13/18 08:56 11/13/18 08:56 11/13/18 08:56 Oxygen Flow Rate (L/min) 2 Oxygen Delivery Method Room Air Weight: 168 lb 6.931 oz Body Mass Index (BMI) 30.8 Intake and Output for Last 24 Hours 11/11/18 11/12/18 11/13/18 23:59 23:59 23:59 Intake Total 340 / 340 Output Total 550 / 550 Balance -210 / -210 Laboratory Tests Past 24 Hrs 11/12/18 11/12/18 11/12/18 20:35 20:35 20:35 WBC 7.5 RBC 4.33 Hgb 13.2 Hct 38.6 MCV 89.1 MCH 30.5 MCHC 34.2 RDW 13.7 RDW Differential 44.9 H Plt Count 244 MPV 9.9 Immature Gran % (Auto) 0.300 Neut % (Auto) 65.2 Lymph % (Auto) 23.5 Newberry % (Auto) 8.1 Eos % (Auto) 2.4 Baso % (Auto) 0.5 Absolute Neuts (auto) 4.9 Absolute Lymphs (auto) 1.77 Total Counted Not Reportable PT 13.7 INR 1.1 APTT Sodium 139 Potassium 4.0 Chloride 104 Carbon Dioxide 27.0 Anion Gap 8 BUN 21 H Creatinine 1.16 H Estim Creat Clear Calc 30.08 Est GFR (MDRD) Af Amer 58 L Est GFR (MDRD) Non-Af 48 L BUN/Creatinine Ratio 18.1 Glucose 103 Calcium 9.8 Troponin I < 0.015 11/12/18 11/13/18 11/13/18 23:15 02:45 02:45 WBC 7.7 RBC 3.91 L Hgb 11.9 L Hct 35.1 L MCV 89.8 MCH 30.4 MCHC 33.9 RDW 13.6 RDW Differential 43.7 Plt Count 240 MPV 10.0 Immature Gran % (Auto) 0.100 Neut % (Auto) 58.6 Lymph % (Auto) 29.9 Newberry % (Auto) 8.5 Eos % (Auto) 2.5 Baso % (Auto) 0.4 Absolute Neuts (auto) 4.5 Absolute Lymphs (auto) 2.29 Total Counted Not Reportable PT INR APTT Sodium 143 Potassium 3.8 Chloride 106 Carbon Dioxide 29.0 Anion Gap 8 BUN 24 H Creatinine 1.10 H Estim Creat Clear Calc 31.72 Est GFR (MDRD) Af Amer 61 Est GFR (MDRD) Non-Af 51 L BUN/Creatinine Ratio 21.8 H Glucose 107 H Calcium 8.9 Troponin I < 0.015 < 0.015 11/13/18 02:45 WBC RBC Hgb Hct MCV MCH MCHC RDW RDW Differential Plt Count MPV Immature Gran % (Auto) Neut % (Auto) Lymph % (Auto) Newberry % (Auto) Eos % (Auto) Baso % (Auto) Absolute Neuts (auto) Absolute Lymphs (auto) Total Counted PT 14.6 INR 1.2 APTT 29.5 Sodium Potassium Chloride Carbon Dioxide Anion Gap BUN Creatinine Estim Creat Clear Calc Est GFR (MDRD) Af Amer Est GFR (MDRD) Non-Af BUN/Creatinine Ratio Glucose Calcium Troponin I Medical Necessity - Tobacco Use Smoking Status: Never smoker Tobacco Use: Non-smoker Assessment/Plan All Active Problems (Last Updated 11/13/18 @ 02:05 by Remy Momin DO) Unstable angina (Acute) Anginal equivalent (Acute) Jaw pain (Acute) Left shoulder pain (Acute) Chest pain (Resolved) Angina pectoris (Acute) 1. Angina - negative stress, ekg, troponin. Taken to [facility] by cardiology 2. CAD hx multiple stents 3. HTN/HLD - home meds 4. Anxiety - temazepam DVT ppx: SCDs DC planning: pending findings of cath This patient was seen by Fernando John PA-C under the supervision of Dr. Bob <Jcarlos Bob - Last Filed: 11/13/18 17:40> Subjective: Patient was admitted with jaw pain and shortness of breath. Patient had a stress test done. She had mild shortness of breath and jaw pain during a stress test and with high suspicion of coronary artery disease and past history of s tents, patient was taken for cardiac cath. - Physical Exam General: Alert, Oriented x3, Cooperative HEENT: Atraumatic, PERRLA, EOMI, Normocephalic Neck: Supple, No JVD, Negative Carotid Bruits Lungs: Clear to auscultation, Normal air movement, No rhonchi, No wheeze, No rales Cardiovascular: Regular rate, Regular Rhythm, Normal S1, Normal S2, Murmur - Systolic murmur present over aortic valve Abdomen: Bowel Sounds Present, Soft, Non Tender Extremities: No edema, Capillary Refill Less than 3 Seconds Skin: No rashes, No breakdown Musculoskeletal: No Tenderness to Palpation of Joints or Extremities Neurological: Cranial nerves II-XII grossly intact, Deep Tendon Reflexes 2+/4 and Symmetrical, Neuro grossly intact, Motor Exam 5/5 strength throughout Psych/Mental Status: Normal Affect, Appropriate Vital Signs Temp Pulse Resp BP Pulse Ox 97.7 F L 58 L 14 136/13 H 95 11/13/18 17:30 11/13/18 17:30 11/13/18 17:30 11/13/18 17:30 11/13/18 17:30 Oxygen Flow Rate (L/min) 2 Oxygen Delivery Method Room Air Weight: 168 lb 6.931 oz Body Mass Index (BMI) 30.8 Intake and Output for Last 24 Hours 05/11/12/18 11/13/18 23:59 23:59 23:59 Intake Total 340 / 340 Output Total 550 / 550 Balance -210 / -210 Laboratory Tests Past 24 Hrs 11/12/18 11/12/18 11/12/18 20:35 20:35 20:35 WBC 7.5 RBC 4.33 Hgb 13.2 Hct 38.6 MCV 89.1 MCH 30.5 MCHC 34.2 RDW 13.7 RDW Differential 44.9 H Plt Count 244 MPV 9.9 Immature Gran % (Auto) 0.300 Neut % (Auto) 65.2 Lymph % (Auto) 23.5 Newberry % (Auto) 8.1 Eos % (Auto) 2.4 Baso % (Auto) 0.5 Absolute Neuts (auto) 4.9 Absolute Lymphs (auto) 1.77 Total Counted Not Reportable PT 13.7 INR 1.1 APTT Activated Clotting Time Sodium 139 Potassium 4.0 Chloride 104 Carbon Dioxide 27.0 Anion Gap 8 BUN 21 H Creatinine 1.16 H Estim Creat Clear Calc 30.08 Est GFR (MDRD) Af Amer 58 L Est GFR (MDRD) Non-Af 48 L BUN/Creatinine Ratio 18.1 Glucose 103 Calcium 9.8 Troponin I < 0.015 11/12/18 11/13/18 11/13/18 23:15 02:45 02:45 WBC 7.7 RBC 3.91 L Hgb 11.9 L Hct 35.1 L MCV 89.8 MCH 30.4 MCHC 33.9 RDW 13.6 RDW Differential 43.7 Plt Count 240 MPV 10.0 Immature Gran % (Auto) 0.100 Neut % (Auto) 58.6 Lymph % (Auto) 29.9 Newberry % (Auto) 8.5 Eos % (Auto) 2.5 Baso % (Auto) 0.4 Absolute Neuts (auto) 4.5 Absolute Lymphs (auto) 2.29 Total Counted Not Reportable PT INR APTT Activated Clotting Time Sodium 143 Potassium 3.8 Chloride 106 Carbon Dioxide 29.0 Anion Gap 8 BUN 24 H Creatinine 1.10 H Estim Creat Clear Calc 31.72 Est GFR (MDRD) Af Amer 61 Est GFR (MDRD) Non-Af 51 L BUN/Creatinine Ratio 21.8 H Glucose 107 H Calcium 8.9 Troponin I < 0.015 < 0.015 11/13/18 11/13/18 02:45 14:43 WBC RBC Hgb Hct MCV MCH MCHC RDW RDW Differential Plt Count MPV Immature Gran % (Auto) Neut % (Auto) Lymph % (Auto) Newberry % (Auto) Eos % (Auto) Baso % (Auto) Absolute Neuts (auto) Absolute Lymphs (auto) Total Counted PT 14.6 INR 1.2 APTT 29.5 Activated Clotting Time 274 H Sodium Potassium Chloride Carbon Dioxide Anion Gap BUN Creatinine Estim Creat Clear Calc Est GFR (MDRD) Af Amer Est GFR (MDRD) Non-Af BUN/Creatinine Ratio Glucose Calcium Troponin I Assessment/Plan This patient was seen in conjunction with Fernando CERNA. I have independently interviewed and examined the patient and reviewed pertinent history, examination findings, laboratory and plan of management. I have reviewed the note and agree with the documented findings with the few additional points. In brief, patient is admitted for jaw pain, left shoulder and shortness of breath and even though stress test was negative was taken for cardiac cath high clinical suspicion. Patient also had mild jaw pain or shortness of breath during stress test. Patient had 80% stenosis of mid RCA which was stented. Patient transferred to ICU for further follow-up and monitoring I have discussed my assessment with Fernando CERNA and orders have been reviewed. Code Visit Inpatient E&M: 53906 Subs Hosp L3
--- NOTE | 2018-11-13 15:04 | EKG12_ITS ---
Test Reason : POST PCI Blood Pressure : / mmHG Vent. Rate : 055 BPM Atrial Rate : 055 BPM P-R Int : 168 ms QRS Dur : 084 ms QT Int : 456 ms P-R-T Axes : 069 004 028 degrees QTc Int : 436 ms Sinus bradycardia Otherwise normal ECG Confirmed by LEO WYNN, PORTIA ([id number]), legal editor RIVERA EASTON ([id number] on 11/20/2018 6:53:34 AM Referred By: YVONNE Confirmed By:PORTIA BAILEY MD
--- NOTE | 2018-11-13 15:12 | CL.I_ITS ---
Patient Name: PRECIOUS LEIGH Study Date: 11/13/2018 Performing: Adele Torrez MD Ht: 61.81 inches 157 cm : 1935 Wt: 167.55 lbs 76 kg Age: 83 Gender: female BSA: 1.77 PROCEDURE(S) PERFORMED [id number] W OR WO PTCA, SINGLE CORONARY ARTERY CLINICAL PROFILE AND CO-MORBIDITIES Indications: Worsening Angina, Suspected CAD Heart Failure: None Stress/Imaging Date: 11/13/2018 Stress Test with SPECT MPI: Negative Angina Classification Anginal Classification w/in 2 Weeks: CCS IV CAD Presentations: Unstable angina. CONCLUSIONS Successful LEANDER Mid RCA ISR using Resolute Integrity 2.5x12 mm RECOMMENDATIONS ASA Indefinitley Plavix for at least 12 months Follow up with Dr. Madera DESCRIPTION OF PROCEDURE JR4 Guide catheter was inserted and engaged into the RCA. Runthru Guide wire was advanced to the RCA. Angiogram performed pre stent deployment. 2.5x12 Resolute Drug Eluting stent was advanced across the lesion in the right coronary, mid. Angiogram performed post stent deployment. 2.5x12 NC Emerge B alloon catheter was inserted post stent. Angiogram performed. Angiogram performed. The arterial she ath was pulled and a TR Band was applied for hemostasis. 15cc air INTERVENTION INFORMATION LESION SITE: RCA (Mid) Lesion Complexity: Non-High/Non-C, culprit lesion: Yes, In-stent restenosis: Yes Pre Stenosis: 80 % Pre intervention LUIS flow: 3 PROCEDURE: Drug Eluting Stent with post dilatation Post Stenosis: 5 % Post intervention LUIS flow: 3 Lesion Devices: Terumo .014 Runthrough Extra Floppy 180cm straight Cordis 6 Fr JR4 100cm Guide Catheter Medtronic Resolute RX LEANDER 2.5x12 Willie Sci NC EMERGE MR 2.50x12 BALLOON COMPLICATIONS No Complications PROCEDURE MEDICATIONS Versed 1 mg IV Fentanyl 50 mcg IV Oxygen: 2 L/min via nasal cannula Benadryl 50 mg IV @ 11/13/2018 13:48:25 Heparin diluted in 23cc Heparinized saline. Patient given 10cc IA of this solution. 11/13/2018 13:59: 06 Heparin 6000 unit(s) IV 11/13/2018 14:37:29 Pepcid 20 mg IV 11/13/2018 13:53:43 Solu-medrol 125 mg IV 11/13/2018 13:48:33 Verapamil 2.5mg, Ntg 100mcgs, 2000 units of Heparin diluted in 23cc Heparinized saline. Patient give n 10cc IA of this solution. 11/13/2018 13:59:06 SUMMARY OF HEMODYNAMIC DATA Time AIR REST ECG 13:40:53 ECG 13:52:02 AO 110/40 (64) SA 14:01:38 AO 125/50 (77) 14:02:11 Signed By Adele Torrez MD On 11/13/2018 15:12:00 Adele Torrez MD
[2018-11-13 15:30] LABS: ACT Activated Clotting Time 274 sec (74-137)
[2018-11-13] MEDS: 0.9% Normal Saline 1,000 ML 150 ML IV (15:35)
[2018-11-13] MEDS: Heparin Injection (Vial) 5,000 UNIT/ML VIAL 5000 UNIT SC (22:13)
[2018-11-13] MEDS: Atorvastatin Calcium 40 MG Tablet PO (22:14)
[2018-11-14] VITALS (18 sets, daily range): BP systolic 100–165; BP diastolic 22–88; PULSE 53–98; RESP 12–21; TEMP 36.4–36.8; O2SAT 93–99
[2018-11-14 04:35] LABS: Hematocrit 37.1 % (37-47); Hemoglobin 12.7 g/dl (12.0-15.0); Mean Corp Hgb Conc 34.2 g/gl (32-36); Mean Corpuscular Hgb 30.3 pg (27.0-32.0); Mean Corpuscular Volume 88.5 fL (81-99); Platelet Count 247 K/mm3 (150-450); RBC Distribution Width CV 13.5 % (11.6-14.6); RBC Distribution Width SD 43.1 fl (35.1-43.9); Red Blood Count 4.19 M/mm3 (4.2-5.4); White Blood Count 11.8 K/mm3 (4.4-11.0)
[2018-11-14 04:41] LABS: Scan Indicated on CBC? Y/N NO
[2018-11-14 04:52] LABS: Anion Gap 10 (5-15); BUN 31 mg/dL (7-18); BUN/Creat Ratio 22.1 RATIO (10-20); Calcium,Total 8.7 mg/dL (8.5-10.1); Chloride 106 mmol/L (98-107); EST Glomerular Filtration Rate 38 mL/min (>60); Est Glom Filt Rate - Afr Amer 46 mL/min (>60); Estimated Creatinine Clearance 24.93 ml/min; Glucose 159 mg/dL (74-106); Potassium 4.4 mmol/L (3.5-5.1); Sodium Level 139 mmol/L (136-145)
--- NOTE | 2018-11-14 08:07 | DCINST_ITS ---
Addendum entered and electronically signed by ERYN Manning 11/14/18 09:57: Addendum: You will need to follow up with Dr. Membreno or Dr. Hamilton, pulmonology, regarding sleep apnea in 1 to 2 weeks. Original Note: - Discharge Diagnoses Current Active Problems: Current Active and Chronic Problems (Last Updated 11/13/18 @ 02:05 by Remy Momin DO) Unstable angina (Acute) Anginal equivalent (Acute) Jaw pain (Acute) Left shoulder pain (Acute) You will use the following diet at home:: Cardiac Your food should be the consistency of: Regular Discharge Activity: Return to Normal Activity, May Not Drive - for 3 days Call your doctor if you observe: Fever of 101 or Higher, Inability to urinate, Inability to have a bowel movement, Shortness of breath, Fainting spells, Swelling in the ankles, Chest pain, Increased palpitations (irregular heartbeat) Allergies/Adverse Reactions: Allergies Iodinated Contrast- Oral and IV Dye Allergy (Intermediate, Verified 11/12/18 18:43) Rash ramipril [From Altace] Adverse Reaction (Severe, Verified 11/12/18 18:43) cough Medications to take at Discharge levothyroxine 88 mcg tablet 88 mcg PO DAILY 90 Days 06/10/17 nitroglycerin 0.4 mg sublingual tablet 0.4 mg SUBLINGUAL Q5-15M PRN 10 Days #2880 tab 06/10/17 Ascorbic Acid [Vitamin C] 500 mg PO DAILY 01/16/18 Folic Acid 0.4 mg PO DAILY@0800 01/16/18 Ubidecarenone [Co Q-10] 100 mg PO DAILY 03/09/18 atorvastatin 40 mg tablet 40 mg PO DAILY 90 Days #90 tab 08/07/18 Amlodipine [Norvasc] 10 mg PO DAILY 11/12/18 Aspirin E.C. [Ecotrin] 81 mg PO DAILY@0800 11/12/18 Calcium Citrate 200 mg PO DAILY 11/12/18 Calcium Citrate 400 mg PO DAILY@1200 11/12/18 Clopidogrel Bisulfate [Clopidogrel] 75 mg PO DAILY 11/12/18 Losartan Potassium [Cozaar] 50 mg PO BID 11/12/18 Metoprolol(XL)Succ [Toprol Xl (Beta Tg)] 50 mg PO DAILY 11/12/18 Multivitamins,Therapeutic [Multivitamin] 1 tablet PO DAILY 11/12/18 Solon-3 Fatty Acids/Fish Oil [Fish Oil 1,000 mg Capsule] 1 cap PO BID 11/12/18 Potassium Chloride [K-Tab ER] 10 meq PO DAILY 11/12/18 Triamterene 37.5MG/Hctz 25MG [Dyazide (G)] 1 cap PO DAILY 11/12/18 Primary Care Physician: Boyd Casiano MD [Primary Care Provider] - Please follow up with your Primary Care Physician in: 1-2 weeks Test Results: Test results from this visit will be discussed in further detail at your follow- up appointment, if applicable. Please Follow Up With: Luis Alberto Madera MD When: 2-3 weeks Proposed Discharge Date: 11/14/18
[2018-11-14] MEDS: Aspirin E.C. 81 MG Tablet PO (09:42)
[2018-11-14] MEDS: Triamterene 37.5MG/Hctz 25MG Capsule 1 CAP PO (09:43)
[2018-11-14] MEDS: Metoprolol(XL)Succ 50 MG Tablet PO (09:43)
[2018-11-14] MEDS: amLODIPine 10 MG Tablet PO (09:43)
[2018-11-14] MEDS: Clopidogrel Bisulfate 75 MG Tablet PO (09:43)
[2018-11-14] MEDS: Losartan Potassium 50 MG Tablet PO (09:43)
[2018-11-14] MEDS: Heparin Injection (Vial) 5,000 UNIT/ML VIAL 5000 UNIT SC (09:44)
--- NOTE | 2018-11-14 12:54 | PN.CARD_ITS ---
Subjectve: The patient is awake and alert. She is smiling this morning. She states her previous symptoms have resolved. She has no new acute complaints. Objective: Vital Signs Temp Pulse Resp BP Pulse Ox 98.0 F 98 15 165/42 H 98 11/14/18 12:00 11/14/18 12:00 11/14/18 12:00 11/14/18 12:00 11/14/18 12:00 Oxygen Flow Rate (L/min) 2 Oxygen Delivery Method Room Air Weight: 168 lb 6.931 oz Body Mass Index (BMI) 30.8 Intake and Output for Last 24 Hours 11/12/18 11/13/18 11/14/18 23:59 23:59 23:59 Intake Total 770 / 770 910 / 910 Output Total 550 / 550 Balance 220 / 220 910 / 910 General: Awake, Alert, Oriented x 3, Cooperative, No Acute Distress HEENT: Atraumatic, Normocephalic, PERRL, EOMI, Sclera Non Icteric Oral: Moist Mucosa Neck: Supple, Good ROM, No JVD Lungs: Clear to auscultation Cardiovascular: Regular Rhythm, Normal S1, Normal S2 Murmur Murmur: Grade 3/6, Harsh, Mid Systolic, LLSB, LVOT, Sternal Notch Vascular: Normal Radial Pulses Abdomen: Bowel Sounds Present, Soft, Non Tender Extremities: No edema Neurological: No Focal Motor or Sensory Deficit Psych/Mental Status: Appropriate 11/14/18 04:30: WBC 11.8 H, RBC 4.19 L, Hgb 12.7, Hct 37.1, MCV 88.5, MCH 30.3, MCHC 34.2, RDW 13.5, RDW Differential 43.1, Plt Count 247, MPV 10.0 11/14/18 04:30: Sodium 139, Potassium 4.4, Chloride 106, Carbon Dioxide 23.0, Anion Gap 10, BUN 31 H, Creatinine 1.40 H, Est GFR (MDRD) Af Amer 46 L, Est GFR (MDRD) Non-Af 38 L, BUN/Creatinine Ratio 22.1 H, Glucose 159 H, Calcium 8.7 Rhythm: Sinus rhythm EKG: Sinus rhythm; no acute ECG changes Medical Necessity - Tobacco Use Smoking Status: Never smoker Tobacco Use: Non-smoker Assessment/Plan 1. CAD status post multivessel PCI The patient is now status post repeat diagnostic cardiac catheterization demonstrating repeat RCA in-stent restenosis requiring repeat RCA PTCA/LEANDER. She appears to be symptomatically improved. The patient will continue risk factor evaluation and medical therapy as deemed appropriate. As the patient has just completed outpatient cardiac rehabilitation, approximately 1 week ago, it was not felt at this time, especially without evidence of a recurrent acute coronary syndrome/myocardial injury event, that the patient required repeat outpatient cardiac rehabilitation. 3. Valvular heart disease The patient does have underlying valvular heart disease. She has been followed by history, exam, and noninvasive studies. Thus far she has not required further valvular intervention. 4. Hyperlipidemia She will continue risk factor evaluation and care. 5. Hypertension She will continue antihypertensive therapy as deemed appropriate. Comment: The above was discussed reviewed with the patient, her , and Dr. Bob. This note was generated with [employer] dictation software. It may contain incorrect words, spelling, and punctuation that were not noted in checking the note before signing.
--- NOTE | 2018-11-14 14:31 | PCM.DC.SUM ---
<Fernando John - Last Filed: 11/14/18 14:31> Discharge Date and Diagnosis Date of Admission: 11/12/18 Date of Discharge: 11/14/18 - Primary Discharge Diagnosis Angina, CAD, stent placed to mid RCA HTN HLD Anxiety - Secondary Discharge Diagnosis Chronic Problems (Last Updated 11/13/18 @ 16:45 by Joi Ballard) Nonrheumatic mitral (valve) insufficiency (Chronic) Nonrheumatic aortic (valve) insufficiency (Chronic) Nonrheumatic aortic (valve) stenosis (Chronic) Carotid artery disease (Chronic) Atherosclerotic heart disease of [place] coronary artery without angina pectoris (Chronic) Previous LEANDER to proximal to mid LAD 3.0 X 32 mm Taxus 02/23/[address] Daquan Meyer, [facility];LEANDER to mid RCA 2.5 X 24 mm Synergy 01/19/[address] Patel,[facility]; PTCA/LEANDER of the mid LCX 03/10/[address] Torrez [facility]; Successful PTCA/LEANDER mid RCA with a 2.0 x 12balloon, followed by a 2.0 x 10 Angiosculpt, followed by a 2.5 x 16 Promus Synergy, post dilated with a 2.5 x 8 NC Balloon; 85%-->0%, no dissection 07/22/2018 Presence of stent in coronary artery (Chronic ~11/13/18) Previous LEANDER to proximal to mid LAD 3.0 X 32 mm Taxus 02/23/[address] Daquan Meyer, [facility];LEANDER to mid RCA 2.5 X 24 mm [facility] [facility] PTCA/LEANDER of the mid LCX 03/10/[address] Torrez [facility]; Successful PTCA/LEANDER mid RCA with a 2.0 x 12balloon, followed by a 2.0 x 10 Angiosculpt, followed by a 2.5 x 16 Promus Synergy, post dilated with a 2.5 x 8 NC Balloon; 85%-->0%, no dissection 07/22/2018; PTCA/LEANDER to mid RCA instent restenosis 11/13/18 CAD (coronary artery disease) (Chronic) Valvular heart disease (Chronic) Hypothyroidism (Chronic) Hyperlipidemia (Chronic) HTN (hypertension), benign (Chronic) S/P coronary artery stent placement (Chronic ~2017) LEANDER to mid RCA 2.5 X 24 mm [facility] [facility]; PTCA/LEANDER of the mid LCX 03/10/[address] Torrez [facility] Successful PTCA/LEANDER mid RCA with a 2.0 x 12balloon, followed by a 2.0 x 10 Angiosculpt, followed by a 2.5 x 16 Promus Synergy, post dilated with a 2.5 x 8 NC Balloon; 85%-->0%, no dissection on 07/22/2018. Hospital Course and Treatment Imaging Results: RAD/Chest 1 View (Portable) IMPRESSION: Chronic interstitial markings similar to previous exam with no evidence of new focal airspace disease. Stress test: Impression: 1. Rest and stress SPECT Cardiolite nuclear imaging demonstrate relative uniform tracer uptake and myocardial perfusion appearing within normal limits. 2. The gated Cardiolite study reports an LVEF of 84 %. Left Heart Cath: CONCLUSIONS Successful LEANDER Mid RCA ISR using Resolute Integrity 2.5x12 mm RECOMMENDATIONS ASA Indefinitley Plavix for at least 12 months Follow up with Dr. Madera Consults: Cardiology - Cassy Operations: None Procedures: Cardiac catheterization, Stress test Summary of Care Provided: Hospital course: The patient is a 83 year old F with past medical history of CAD with multiple prior stents, hypertension, hyperlipidemia, anxiety, who presented to the emergency room with left-sided shoulder and jaw pain that she described as feeling similar to her prior times that she needed stents placed. She had a negative EKG, negative troponin, negative chest x-ray. She was admitted to the PCU for angina work-up. She had negative troponin x3, no events on telemetry, and underwent a stress test that was negative for ischemia. Unfortunately she continued to have ongoing pain with no relief, and it was slightly relieved by nitroglycerin. Given this and her history, her symptomology consistent with her prior history was decided that should be taken for heart cath despite the negative stress test. Heart catheterization revealed that her RCA had reoccluded. A stent was placed successfully to the mid RCA, and she was transferred to the ICU. She remained stable overnight. She had no further angina symptoms after the stent was placed. She was discharged on aspirin, statin, Plavix, losartan, metoprolol, Norvasc, HCTZ/triamterene. She was advised to follow-up with cardiology as directed, and follow-up with her PCP in 1 to 2 weeks. Additionally during her ICU stay she was found to have apneic events overnight, with a pause up to 11 seconds. Her admitted that she also snores heavily at night. She also has hypertension and obesity. With witnessed apneic episodes, and there are other additional risk factors is explained to her that she likely has sleep apnea and she would really benefit from an outpatient sleep study. She voiced her acknowledgment has her son has sleep apnea severely and is compliant with CPAP and has benefited from it greatly. She is advised to follow-up with pulmonology in 1 to 2 weeks in addition to the above care. This patient was seen by Fernando John PA-C under the supervision of Doctor Bob. [] - Physical Exam General: Alert, Oriented x3, Cooperative HEENT: Atraumatic, PERRLA, EOMI, Normocephalic Neck: Supple, No JVD, Negative Carotid Bruits Lungs: Clear to auscultation, Normal air movement Cardiovascular: Regular rate, No murmurs Abdomen: Bowel Sounds Present, Soft, Non Tender Extremities: No edema, Capillary Refill Less than 3 Seconds Skin: No rashes, No breakdown Musculoskeletal: No Tenderness to Palpation of Joints or Extremities Neurological: Cranial nerves II-XII grossly intact Psych/Mental Status: Normal Affect, Appropriate, Alert and oriented to time, place, person, mood and affect Vital Signs Temp Pulse Resp BP Pulse Ox 98.0 F 98 15 165/42 H 98 11/14/18 12:00 11/14/18 12:00 11/14/18 12:00 11/14/18 12:00 11/14/18 12:00 Oxygen Flow Rate (L/min) 2 Oxygen Delivery Method Room Air Weight: 168 lb 6.931 oz Body Mass Index (BMI) 30.8 Intake and Output for Last 24 Hours 11/12/18 11/13/18 11/14/18 23:59 23:59 23:59 Intake Total 770 / 770 910 / 910 Output Total 550 / 550 Balance 220 / 220 910 / 910 Laboratory Tests Past 24 Hrs 11/13/18 11/14/18 11/14/18 14:43 04:30 04:30 WBC 11.8 H RBC 4.19 L Hgb 12.7 Hct 37.1 MCV 88.5 MCH 30.3 MCHC 34.2 RDW 13.5 RDW Differential 43.1 Plt Count 247 MPV 10.0 Activated Clotting Time 274 H Sodium 139 Potassium 4.4 Chloride 106 Carbon Dioxide 23.0 Anion Gap 10 BUN 31 H Creatinine 1.40 H Estim Creat Clear Calc 24.93 Est GFR (MDRD) Af Amer 46 L Est GFR (MDRD) Non-Af 38 L BUN/Creatinine Ratio 22.1 H Glucose 159 H Calcium 8.7 Discharge Diet: Low fat/ Low Cholesterol, 2000 mg Sodium Diet Discharge Activity: Return to Normal Activity, May Not Drive - for 3 days Call your doctor if you observe: Fever of 101 or Higher, Inability to urinate, Inability to have a bowel movement, Shortness of breath, Fainting spells, Swelling in the ankles, Chest pain, Increased palpitations (irregular heartbeat) Home Medications: Medications to take at Discharge levothyroxine 88 mcg tablet 88 mcg PO DAILY 90 Days 06/10/17 nitroglycerin 0.4 mg sublingual tablet 0.4 mg SUBLINGUAL Q5-15M PRN 10 Days #2880 tab 06/10/17 Ascorbic Acid [Vitamin C] 500 mg PO DAILY 01/16/18 Folic Acid 0.4 mg PO DAILY@0800 01/16/18 Ubidecarenone [Co Q-10] 100 mg PO DAILY 03/09/18 atorvastatin 40 mg tablet 40 mg PO DAILY 90 Days #90 tab 08/07/18 Amlodipine [Norvasc] 10 mg PO DAILY 11/12/18 Aspirin E.C. [Ecotrin] 81 mg PO DAILY@0800 11/12/18 Calcium Citrate 200 mg PO DAILY 11/12/18 Calcium Citrate 400 mg PO DAILY@1200 11/12/18 Clopidogrel Bisulfate [Clopidogrel] 75 mg PO DAILY 11/12/18 Losartan Potassium [Cozaar] 50 mg PO BID 11/12/18 Metoprolol(XL)Succ [Toprol Xl (Beta Tg)] 50 mg PO DAILY 11/12/18 Multivitamins,Therapeutic [Multivitamin] 1 tablet PO DAILY 11/12/18 [place]-3 Fatty Acids/Fish Oil [Fish Oil 1,000 mg Capsule] 1 cap PO BID 11/12/18 Potassium Chloride [K-Tab ER] 10 meq PO DAILY 11/12/18 Triamterene 37.5MG/Hctz 25MG [Dyazide (G)] 1 cap PO DAILY 11/12/18 Primary Care Physician: Boyd Casiano MD [Primary Care Provider] - Please follow up with your Primary Care Physician in: 1-2 weeks Please Follow Up With: Luis Alberto Madera MD When: 2-3 weeks Please Follow Up With: Williams Membreno DO - ABDIAS When: 1-2 weeks Disposition: Home Minutes spent on discharge:: 35 Patient Condition:: Stable Medical Necessity - Tobacco Use Smoking Status: Never smoker Tobacco Use: Non-smoker Meaningful Use Info Meaningful Use Diagnoses (Choose all that apply): None applicable <Jcarlos Bob - Last Filed: 11/14/18 15:07> Discharge Date and Diagnosis - Secondary Discharge Diagnosis Chronic Problems (Last Updated 11/13/18 @ 16:45 by Joi Ballard) Nonrheumatic mitral (valve) insufficiency (Chronic) Nonrheumatic aortic (valve) insufficiency (Chronic) Nonrheumatic aortic (valve) stenosis (Chronic) Carotid artery disease (Chronic) Atherosclerotic heart disease of [place] coronary artery without angina pectoris (Chronic) Previous LEANDER to proximal to mid LAD 3.0 X 32 mm Taxus 02/23/[address] Daquan Meyer, [facility];LEANDER to mid RCA 2.5 X 24 mm [facility] [facility] PTCA/LEANDER of the mid LCX 03/10/[address] Torrez [facility]; Successful PTCA/LEANDER mid RCA with a 2.0 x 12balloon, followed by a 2.0 x 10 Angiosculpt, followed by a 2.5 x 16 Promus Synergy, post dilated with a 2.5 x 8 NC Balloon; 85%-->0%, no dissection 07/22/2018 Presence of stent in coronary artery (Chronic ~11/13/18) Previous LEANDER to proximal to mid LAD 3.0 X 32 mm Taxus 02/23/[address] Daquan Meyer, [facility];LEANDER to mid RCA 2.5 X 24 mm Synergy [facility] [facility]; PTCA/LEANDER of the mid LCX 03/10/[address] Torrez [facility]; Successful PTCA/LEANDER mid RCA with a 2.0 x 12balloon, followed by a 2.0 x 10 Angiosculpt, followed by a 2.5 x 16 Promus Synergy, post dilated with a 2.5 x 8 NC Balloon; 85%-->0%, no dissection 07/22/2018; PTCA/LEANDER to mid RCA instent restenosis 11/13/18 CAD (coronary artery disease) (Chronic) Valvular heart disease (Chronic) Hypothyroidism (Chronic) Hyperlipidemia (Chronic) HTN (hypertension), benign (Chronic) S/P coronary artery stent placement (Chronic ~2017) LEANDER to mid RCA 2.5 X 24 mm Sy[facility] [facility]; PTCA/LEANDER of the mid LCX 03/10/[address] Torrez [facility] Successful PTCA/LEANDER mid RCA with a 2.0 x 12balloon, followed by a 2.0 x 10 Angiosculpt, followed by a 2.5 x 16 Promus Synergy, post dilated with a 2.5 x 8 NC Balloon; 85%-->0%, no dissection on 07/22/2018. Hospital Course and Treatment Summary of Care Provided: This patient was seen in conjunction with Fernando CERNA. I have independently interviewed and examined the patient and reviewed pertinent history, examination findings, laboratory and plan of management. I have reviewed the note and agree with the documented findings with the few additional points. In brief, patient is admitted for jaw pain, left shoulder and shortness of breath and even though stress test was negative was taken for cardiac cath high clinical suspicion. Patient also had mild jaw pain or shortness of breath during stress test. Patient had 80% stenosis of mid RCA which was stented. Patient was transferred to ICU after PCI. Was monitored overnight and no arrhythmia noted. Patient is being discharged home. Discharge medication reconciliation done. Discharge follow-up instructions completed. Discharge process discussed with the patient and all questions were answered to patient's satisfaction. Follow-up Dr. Madera as scheduled. Total time spent, exact 35 minutes on discharge meds reconciliation, examination, review of imaging and blood test and discussion with the patient on follow-up instructions. Patient has aspirin, Plavix, losartan, triamterene/HCTZ atorvastatin. On Toprol-XL 50 mg daily. I have discussed my assessment with Fernando CERNA and orders have been reviewed. [] Subjective: Seen and examined. Telemetry reviewed. Normal sinus rhythm. No acute events overnight. - Physical Exam General: Alert, Oriented x3, Cooperative HEENT: Atraumatic, PERRLA, EOMI, Normocephalic Neck: Supple, No JVD, Negative Carotid Bruits Lungs: Clear to auscultation, Normal air movement, No rhonchi, No wheeze, No rales Cardiovascular: Regular rate, Regular Rhythm, Normal S1, Normal S2, No murmurs Abdomen: Bowel Sounds Present, Soft, Non Tender, Non-Distended Extremities: No edema, Capillary Refill Less than 3 Seconds Skin: No rashes, No breakdown Musculoskeletal: No Tenderness to Palpation of Joints or Extremities, Arthritic Changes Lymphatic: No Cervical, Supraclavicular, or Inguinal Adenopathy Neurological: Cranial nerves II-XII grossly intact, Deep Tendon Reflexes 2+/4 and Symmetrical, Neuro grossly intact, Motor Exam 5/5 strength throughout Psych/Mental Status: Normal Affect, Appropriate Vital Signs Temp Pulse Resp BP Pulse Ox 98.0 F 98 15 165/42 H 98 11/14/18 12:00 11/14/18 12:00 11/14/18 12:00 11/14/18 12:00 11/14/18 12:00 Oxygen Flow Rate (L/min) 2 Oxygen Delivery Method Room Air Weight: 168 lb 6.931 oz Body Mass Index (BMI) 30.8 Intake and Output for Last 24 Hours 11/12/18 11/13/18 11/14/18 23:59 23:59 23:59 Intake Total 770 / 770 910 / 910 Output Total 550 / 550 Balance 220 / 220 910 / 910 Laboratory Tests Past 24 Hrs 11/13/18 11/14/18 11/14/18 14:43 04:30 04:30 WBC 11.8 H RBC 4.19 L Hgb 12.7 Hct 37.1 MCV 88.5 MCH 30.3 MCHC 34.2 RDW 13.5 RDW Differential 43.1 Plt Count 247 MPV 10.0 Activated Clotting Time 274 H Sodium 139 Potassium 4.4 Chloride 106 Carbon Dioxide 23.0 Anion Gap 10 BUN 31 H Creatinine 1.40 H Estim Creat Clear Calc 24.93 Est GFR (MDRD) Af Amer 46 L Est GFR (MDRD) Non-Af 38 L BUN/Creatinine Ratio 22.1 H Glucose 159 H Calcium 8.7 Code Visit Inpatient E&M: 55669 Disch Hosp
--- NOTE | 2018-11-14 14:37 | DS.PCM_ITS ---
<Fernando John - Last Filed: 11/14/18 14:31> Discharge Date and Diagnosis Date of Admission: 11/12/18 Date of Discharge: 11/14/18 - Primary Discharge Diagnosis Angina, CAD, stent placed to mid RCA HTN HLD Anxiety - Secondary Discharge Diagnosis Chronic Problems (Last Updated 11/13/18 @ 16:45 by Joi Ballard) Nonrheumatic mitral (valve) insufficiency (Chronic) Nonrheumatic aortic (valve) insufficiency (Chronic) Nonrheumatic aortic (valve) stenosis (Chronic) Carotid artery disease (Chronic) Atherosclerotic heart disease of [place] coronary artery without angina pectoris (Chronic) Previous LENADER to proximal to mid LAD 3.0 X 32 mm Taxus 02/23/[address] Daquan Meyer, [facility];LEANDER to mid RCA 2.5 X 24 mm Synergy 01/19/[address] Patel,[facility]; PTCA/LEANDER of the mid LCX 03/10/[address] Torrez [facility]; Successful PTCA/LEANDER mid RCA with a 2.0 x 12balloon, followed by a 2.0 x 10 Angiosculpt, followed by a 2.5 x 16 Promus Synergy, post dilated with a 2.5 x 8 NC Balloon; 85%-->0%, no dissection 07/22/2018 Presence of stent in coronary artery (Chronic ~11/13/18) Previous LEANDER to proximal to mid LAD 3.0 X 32 mm Taxus 02/23/[address] Daquan Meyer, [facility];LEANDER to mid RCA 2.5 X 24 mm [facility] [facility]/LEANDER of the mid LCX 03/10/[address] Torrez [facility]; Successful PTCA/LEANDER mid RCA with a 2.0 x 12balloon, followed by a 2.0 x 10 Angiosculpt, followed by a 2.5 x 16 Promus Synergy, post dilated with a 2.5 x 8 NC Balloon; 85%-->0%, no dissection 07/22/2018; PTCA/LEANDER to mid RCA instent restenosis 11/13/18 CAD (coronary artery disease) (Chronic) Valvular heart disease (Chronic) Hypothyroidism (Chronic) Hyperlipidemia (Chronic) HTN (hypertension), benign (Chronic) S/P coronary artery stent placement (Chronic ~2017) LEANDER to mid RCA 2.5 X 24 mm [facility] [facility]CA/LEANDER of the mid LCX 03/10/[address] Torrez [facility] Successful PTCA/LEANDER mid RCA with a 2.0 x 12balloon, followed by a 2.0 x 10 Angiosculpt, followed by a 2.5 x 16 Promus Synergy, post dilated with a 2.5 x 8 NC Balloon; 85%-->0%, no dissection on 07/22/2018. Hospital Course and Treatment Imaging Results: RAD/Chest 1 View (Portable) IMPRESSION: Chronic interstitial markings similar to previous exam with no evidence of new focal airspace disease. Stress test: Impression: 1. Rest and stress SPECT Cardiolite nuclear imaging demonstrate relative uniform tracer uptake and myocardial perfusion appearing within normal limits. 2. The gated Cardiolite study reports an LVEF of 84 %. Left Heart Cath: CONCLUSIONS Successful LEANDER Mid RCA ISR using Resolute Integrity 2.5x12 mm RECOMMENDATIONS ASA Indefinitley Plavix for at least 12 months Follow up with Dr. Madera Consults: Cardiology - Cassy Operations: None Procedures: Cardiac catheterization, Stress test Summary of Care Provided: Hospital course: The patient is a 83 year old F with past medical history of CAD with multiple prior stents, hypertension, hyperlipidemia, anxiety, who presented to the emergency room with left-sided shoulder and jaw pain that she described as feeling similar to her prior times that she needed stents placed. She had a negative EKG, negative troponin, negative chest x-ray. She was admitted to the PCU for angina work-up. She had negative troponin x3, no events on telemetry, and underwent a stress test that was negative for ischemia. Unfortunately she continued to have ongoing pain with no relief, and it was slightly relieved by nitroglycerin. Given this and her history, her symptomology consistent with her prior history was decided that should be taken for heart cath despite the negative stress test. Heart catheterization revealed that her RCA had reoccluded. A stent was placed successfully to the mid RCA, and she was transferred to the ICU. She remained stable overnight. She had no further angina symptoms after the stent was placed. She was discharged on aspirin, statin, Plavix, losartan, metoprolol, Norvasc, HCTZ/triamterene. She was advised to follow-up with cardiology as directed, and follow-up with her PCP in 1 to 2 weeks. Additionally during her ICU stay she was found to have apneic events overnight, with a pause up to 11 seconds. Her admitted that she also snores heavily at night. She also has hypertension and obesity. With witnessed apneic episodes, and there are other additional risk factors is explained to her that she likely has sleep apnea and she would really benefit from an outpatient sleep study. She voiced her acknowledgment has her son has sleep apnea severely and is compliant with CPAP and has benefited from it greatly. She is advised to follow-up with pulmonology in 1 to 2 weeks in a ddition to the above care. This patient was seen by Fernando John PA-C under the supervision of Doctor Bob. [] - Physical Exam General: Alert, Oriented x3, Cooperative HEENT: Atraumatic, PERRLA, EOMI, Normocephalic Neck: Supple, No JVD, Negative Carotid Bruits Lungs: Clear to auscultation, Normal air movement Cardiovascular: Regular rate, No murmurs Abdomen: Bowel Sounds Present, Soft, Non Tender Extremities: No edema, Capillary Refill Less than 3 Seconds Skin: No rashes, No breakdown Musculoskeletal: No Tenderness to Palpation of Joints or Extremities Neurological: Cranial nerves II-XII grossly intact Psych/Mental Status: Normal Affect, Appropriate, Alert and oriented to time, place, person, mood and affect Vital Signs Temp Pulse Resp BP Pulse Ox 98.0 F 98 15 165/42 H 98 11/14/18 12:00 11/14/18 12:00 11/14/18 12:00 11/14/18 12:00 11/14/18 12:00 Oxygen Flow Rate (L/min) 2 Oxygen Delivery Method Room Air Weight: 168 lb 6.931 oz Body Mass Index (BMI) 30.8 Intake and Output for Last 24 Hours 11/12/18 11/13/18 11/14/18 23:59 23:59 23:59 Intake Total 770 / 770 910 / 910 Output Total 550 / 550 Balance 220 / 220 910 / 910 Laboratory Tests Past 24 Hrs 11/13/18 11/14/18 11/14/18 14:43 04:30 04:30 WBC 11.8 H RBC 4.19 L Hgb 12.7 Hct 37.1 MCV 88.5 MCH 30.3 MCHC 34.2 RDW 13.5 RDW Differential 43.1 Plt Count 247 MPV 10.0 Activated Clotting Time 274 H Sodium 139 Potassium 4.4 Chloride 106 Carbon Dioxide 23.0 Anion Gap 10 BUN 31 H Creatinine 1.40 H Estim Creat Clear Calc 24.93 Est GFR (MDRD) Af Amer 46 L Est GFR (MDRD) Non-Af 38 L BUN/Creatinine Ratio 22.1 H Glucose 159 H Calcium 8.7 Discharge Diet: Low fat/ Low Cholesterol, 2000 mg Sodium Diet Discharge Activity: Return to Normal Activity, May Not Drive - for 3 days Call your doctor if you observe: Fever of 101 or Higher, Inability to urinate, Inability to have a bowel movement, Shortness of breath, Fainting spells, Swelling in the ankles, Chest pain, Increased palpitations (irregular heartbeat) Home Medications: Medications to take at Discharge levothyroxine 88 mcg tablet 88 mcg PO DAILY 90 Days 06/10/17 nitroglycerin 0.4 mg sublingual tablet 0.4 mg SUBLINGUAL Q5-15M PRN 10 Days #2880 tab 06/10/17 Ascorbic Acid [Vitamin C] 500 mg PO DAILY 01/16/18 Folic Acid 0.4 mg PO DAILY@0801/16/18 Ubidecarenone [Co Q-10] 100 mg PO DAILY 03/09/18 atorvastatin 40 mg tablet 40 mg PO DAILY 90 Days #90 tab 08/07/18 Amlodipine [Norvasc] 10 mg PO DAILY 11/12/18 Aspirin E.C. [Ecotrin] 81 mg PO DAILY@0800 11/12/18 Calcium Citrate 200 mg PO DAILY 11/12/18 Calcium Citrate 400 mg PO DAILY@1200 11/12/18 Clopidogrel Bisulfate [Clopidogrel] 75 mg PO DAILY 11/12/18 Losartan Potassium [Cozaar] 50 mg PO BID 11/12/18 Metoprolol(XL)Succ [Toprol Xl (Beta Tg)] 50 mg PO DAILY 11/12/18 Multivitamins,Therapeutic [Multivitamin] 1 tablet PO DAILY 11/12/18 [place]-3 Fatty Acids/Fish Oil [Fish Oil 1,000 mg Capsule] 1 cap PO BID 11/12/18 Potassium Chloride [K-Tab ER] 10 meq PO DAILY 11/12/18 Triamterene 37.5MG/Hctz 25MG [Dyazide (G)] 1 cap PO DAILY 11/12/18 Primary Care Physician: Boyd Casiano MD [Primary Care Provider] - Please follow up with your Primary Care Physician in: 1-2 weeks Please Follow Up With: Luis Alberto Madera MD When: 2-3 weeks Please Follow Up With: Williams Membreno, - ABDIAS When: 1-2 weeks Disposition: Home Minutes spent on discharge:: 35 Patient Condition:: Stable Medical Necessity - Tobacco Use Smoking Status: Never smoker Tobacco Use: Non-smoker Meaningful Use Info Meaningful Use Diagnoses (Choose all that apply): None applicable <Jcarlos Bob - Last Filed: 11/14/18 15:07> Discharge Date and Diagnosis - Secondary Discharge Diagnosis Chronic Problems (Last Updated 11/13/18 @ 16:45 by Joi Ballard) Nonrheumatic mitral (valve) insufficiency (Chronic) Nonrheumatic aortic (valve) insufficiency (Chronic) Nonrheumatic aortic (valve) stenosis (Chronic) Carotid artery disease (Chronic) Atherosclerotic heart disease of rampart coronary artery without angina pectoris (Chronic) Previous LEANDER to proximal to mid LAD 3.0 X 32 mm Taxus 02/23/[address] Daquan Meyer, [facility];LEANDER to mid RCA 2.5 X 24 [facility] [facility]/LEANDER of the mid LCX 03/10/[address] Torrez [facility]; Successful PTCA/LEANDER mid RCA with a 2.0 x 12balloon, followed by a 2.0 x 10 Angiosculpt, followed by a 2.5 x 16 Promus Synergy, post dilated with a 2.5 x 8 NC Balloon; 85%-->0%, no dissection 07/22/2018 Presence of stent in coronary artery (Chronic ~11/13/18) Previous LEANDER to proximal to mid LAD 3.0 X 32 mm Taxus 02/23/[address] Dauqan Meyer, [facility];LEANDER to mid RCA 2.5 X 24 mm [facility] [facility]; PTCA/LEANDER of the mid LCX 03/10/[address] Torrez [facility]; Successful PTCA/LEANDER mid RCA with a 2.0 x 12balloon, followed by a 2.0 x 10 Angiosculpt, followed by a 2.5 x 16 Promus Synergy, post dilated with a 2.5 x 8 NC Balloon; 85%-->0%, no dissection 07/22/2018; PTCA/LEANDER to mid RCA instent restenosis 11/13/18 CAD (coronary artery disease) (Chronic) Valvular heart disease (Chronic) Hypothyroidism (Chronic) Hyperlipidemia (Chronic) HTN (hypertension), benign (Chronic) S/P coronary artery stent placement (Chronic ~2017) LEANDER to mid RCA 2.5 X 24 mm [facility] [facility] PTCA/LEANDER of the mid LCX 03/10/[address] Torrez [facility] Successful PTCA/LEANDER mid RCA with a 2.0 x 12balloon, followed by a 2.0 x 10 Angiosculpt, followed by a 2.5 x 16 Promus Synergy, post dilated with a 2.5 x 8 NC Balloon; 85%-->0%, no dissection on 07/22/2018. Hospital Course and Treatment Summary of Care Provided: This patient was seen in conjunction with Fernando CERNA. I have independently interviewed and examined the patient and reviewed pertinent history, examination findings, laboratory and plan of management. I have reviewed the note and agree with the documented findings with the few additional points. In brief, patient is admitted for jaw pain, left shoulder and shortness of breath and even though stress test was negative was taken for cardiac cath high clinical suspicion. Patient also had mild jaw pain or shortness of breath during stress test. Patient had 80% stenosis of mid RCA which was stented. Patient was transferred to ICU after PCI. Was monitored overnight and no arrhythmia noted. Patient is being discharged home. Discharge medication reconciliation done. Discharge follow-up instructions completed. Discharge process discussed with the patient and all questions were answered to patient's satisfaction. Follow-up Dr. Madera as scheduled. Total time spent, exact 35 minutes on discharge meds reconciliation, examination, review of imaging and blood test and discussion with the patient on follow-up instructions. Patient has aspirin, Plavix, losartan, triamterene/HCTZ atorvastatin. On Toprol-XL 50 mg daily. I have discussed my assessment with Fernando CERNA and orders have been reviewed. [] Subjective: Seen and examined. Telemetry reviewed. Normal sinus rhythm. No acute events overnight. - Physical Exam General: Alert, Oriented x3, Cooperative HEENT: Atraumatic, PERRLA, EOMI, Normocephalic Neck: Supple, No JVD, Negative Carotid Bruits Lungs: Clear to auscultation, Normal air movement, No rhonchi, No wheeze, No rales Cardiovascular: Regular rate, Regular Rhythm, Normal S1, Normal S2, No murmurs Abdomen: Bowel Sounds Present, Soft, Non Tender, Non-Distended Extremities: No edema, Capillary Refill Less than 3 Seconds Skin: No rashes, No breakdown Musculoskeletal: No Tenderness to Palpation of Joints or Extremities, Arthritic Changes Lymphatic: No Cervical, Supraclavicular, or Inguinal Adenopathy Neurological: Cranial nerves II-XII grossly intact, Deep Tendon Reflexes 2+/4 and Symmetrical, Neuro grossly intact, Motor Exam 5/5 strength throughout Psych/Mental Status: Normal Affect, Appropriate Vital Signs Temp Pulse Resp BP Pulse Ox 98.0 F 98 15 165/42 H 98 11/14/18 12:00 11/14/18 12:00 11/14/18 12:00 11/14/18 12:00 11/14/18 12:00 Oxygen Flow Rate (L/min) 2 Oxygen Delivery Method Room Air Weight: 168 lb 6.931 oz Body Mass Index (BMI) 30.8 Intake and Output for Last 24 Hours 11/12/18 11/13/18 11/14/18 23:59 23:59 23:59 Intake Total 770 / 770 910 / 910 Output Total 550 / 550 Balance 220 / 220 910 / 910 Laboratory Tests Past 24 Hrs 11/13/18 11/14/18 11/14/18 14:43 04:30 04:30 WBC 11.8 H RBC 4.19 L Hgb 12.7 Hct 37.1 MCV 88.5 MCH 30.3 MCHC 34.2 RDW 13.5 RDW Differential 43.1 Plt Count 247 MPV 10.0 Activated Clotting Time 274 H Sodium 139 Potassium 4.4 Chloride 106 Carbon Dioxide 23.0 Anion Gap 10 BUN 31 H Creatinine 1.40 H Estim Creat Clear Calc 24.93 Est GFR (MDRD) Af Amer 46 L Est GFR (MDRD) Non-Af 38 L BUN/Creatinine Ratio 22.1 H Glucose 159 H Calcium 8.7 Code Visit Inpatient E&M: 54998 Disch Hosp
--- NOTE | 2018-11-14 15:15 | EKG12_ITS ---
Test Reason : AM EKG Blood Pressure : / mmHG Vent. Rate : 058 BPM Atrial Rate : 058 BPM P-R Int : 164 ms QRS Dur : 080 ms QT Int : 444 ms P-R-T Axes : 065 001 017 degrees QTc Int : 435 ms Sinus bradycardia Otherwise normal ECG Confirmed by LEO WYNN, PORTIA ([id number]), web editor RIVERA EASTON ([id number]) on 11/20/2018 6:53:21 AM Referred By: EDDIE Confirmed By:PORTIA BAILEY MD
--- NOTE | 2018-11-18 09:52 | CL.D_ITS ---
Patient Name: PRECIOUS LEIGH Study Date: 11/13/2018 Performing: Luis Alberto Madera MD Ht: 61.81 inches 157 cm : 1935 Wt: 167.55 lbs 76 kg Age: 83 Gender: female BSA: 1.77 PROCEDURE(S) PERFORMED [id number] W OR WO PTCA, SINGLE CORONARY ARTERY CLINICAL PROFILE AND INDICATIONS Indications: Worsening Angina, Suspected CAD Heart Failure: None Stress/Imaging Date: 11/13/2018Stress Test with SPECT MPI: Negative Angina Classification Anginal Classification w/in 2 Weeks: CCS IV CAD Presentations: Unstable angina. CONCLUSIONS [place] Multivessel CAD RECOMMENDATIONS Risk factor modification Medical therapy Referred for immediate PCI DESCRIPTION OF PROCEDURE The patient arrived to the procedure lab. The risks and benefits of the procedure as well as a full d escription of our services here and current unavailability of surgical backup were fully explained to the patient and/or their significant other prior to the catheterization. The Timeout was completed, verifying the correct patient and procedure. The patient's procedural site was prepped and draped in the usual fashion. Local anesthetic was given subcutaneously to right radial region with Lidocaine 2% . Using a modified Seldinger technique, arterial access was obtained via the right radial artery, a 6 Fr sheath was inserted. Left Coronary Artery selective angiography was performed in multiple views u sing a 5 Fr. 4.0 Sterling catheter. Right Coronary Artery selective angiography was then performed in mu ltiple views using a 5 Fr. 4.0 Sterling catheter.The arterial sheath was pulled and a TR Band was applie d for hemostasis. 15cc air CORONARY ANGIOGRAPHY DOMINANCE: Co- Dominant LEFT HEART ASSESSMENT Left Ventricular Ejection Fraction: Not assessed LEFT MAIN: Angiographically normal LEFT ANTERIOR DESCENDING ARTERY: Mild luminal irregularities PROX LAD: Previously placed stent is patent MID LAD: Previously placed stent is patent CIRCUMFLEX ARTERY: Mild luminal irregularities PROX CIRC: 25 % Stenosis MID CIRC: Previously placed stent is patent RIGHT CORONARY ARTERY: Mild luminal irregularities PROX RCA: Previously placed stent is patent MID RCA: Previously placed stent has an instent 85 % restenosis COMPLICATIONS No Complications PROCEDURE MEDICATIONS Versed 1 mg IV Fentanyl 50 mcg IV Oxygen: 2 L/min via nasal cannula Benadryl 50 mg IV @ 11/13/2018 13:48:25 Heparin diluted in 23cc Heparinized saline. Patient given 10cc IA of this solution. 11/13/2018 13:59: 06 Heparin 6000 unit(s) IV 11/13/2018 14:37:29 Pepcid 20 mg IV 11/13/2018 13:53:43 Solu-medrol 125 mg IV 11/13/2018 13:48:33 Verapamil 2.5mg, Ntg 100mcgs, 2000 units of Heparin diluted in 23cc Heparinized saline. Patient give n 10cc IA of this solution. 11/13/2018 13:59:06 SUMMARY OF HEMODYNAMIC DATA Time AIR REST ECG 13:40:53 ECG 13:52:02 AO 110/40 (64) SA 14:01:38 AO 125/50 (77) 14:02:11 Signed By Luis Alberto Madera MD On 11/18/2018 09:52:15 Luis Alberto Madera MD
== END 2018-11-14 12:35 | disposition home or self-care (01) ==
LOC: ED 21:27 → PCU 22:02 → ICU 11-13 14:50
PROVIDERS: Internal Medicine Cardiovascular Disease; Admitting Provider Internal Medicine; Emergency Provider Emergency Medicine; Family Provider Family Medicine; PCP Family Medicine; Visit Provider Internal Medicine
DX: I25.110 Atherosclerotic heart disease of native coronary artery with unstable angina pectoris (principal); E78.5 Hyperlipidemia, unspecified; E03.9 Hypothyroidism, unspecified; I12.9 Hypertensive chronic kidney disease with stage 1 through stage 4 chronic kidney disease, or unspecified chronic kidney disease; N18.3 Chronic kidney disease, stage 3 (moderate); F41.9 Anxiety disorder, unspecified; R00.1 Bradycardia, unspecified; Z95.5 Presence of coronary angioplasty implant and graft; Z79.899 Other long term (current) drug therapy; Z79.02 Long term (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 antithrombotics/antiplatelets; Z79.82 Long term (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 aspirin
CPT/HCPCS: 36415; 71045; 78452; 80048; 84484; 85025; 85027; 85347; 85610; 85730; 92928; 93005; 93017; 93454; 96360; 96361; 96372; 99152; 99153; 99218; 99285; A9500; J7030; Q9967; A4216; C1725; C1769; C1874; C1887; C1894; C9600; G0378; J2785; J3490

== ENCOUNTER → 2018-12-01 | Outpatient (CLI) | payer MEDICARE, OTHER, SELFPAY ==
[2018-12-01 14:47] VITALS: BMI 31.6
[2018-12-01 16:24] LABS: Anion Gap 7 (5-15); BUN 21 mg/dL (7-18); BUN/Creat Ratio 17.5 RATIO (10-20); Calcium,Total 9.1 mg/dL (8.5-10.1); Chloride 104 mmol/L (98-107); EST Glomerular Filtration Rate 46 mL/min (>60); Est Glom Filt Rate - Afr Amer 55 mL/min (>60); Glucose 119 mg/dL (74-106); Potassium 4.1 mmol/L (3.5-5.1); Sodium Level 142 mmol/L (136-145)
== END | disposition home or self-care (01) ==
LOC: LAB 15:47
PROVIDERS: Family Provider Family Medicine; PCP Family Medicine; Referring Provider Physician Assistant Medical; Visit Provider Physician Assistant Medical
DX: I25.10 Atherosclerotic heart disease of native coronary artery without angina pectoris (principal)
CPT/HCPCS: 36415; 80048

== ENCOUNTER → 2018-12-09 | Outpatient (CLI) | payer MEDICARE, OTHER, SELFPAY ==
[2018-12-01 14:47] VITALS: BMI 31.6
--- NOTE | 2018-12-09 09:46 | CDU_ITS ---
Reason For Study: Left bruit Rt. Velocities/BP Lt. Velocities/BP Prox CCA 124.7/9.7 cm/sec. Prox CCA 101.1/12.6 cm/sec. Mid CCA 117.4/11.5 cm/sec. Mid CCA 76.5/9 cm/sec. Dist CCA 78.3/6.9 cm/sec. Dist CCA 72.8/9 cm/sec. Prox ICA 83.9/16.3 cm/sec. Prox ICA 167.4/35.8 cm/sec. Mid ICA 104.8/16.3 cm/sec. Mid ICA 185.8/24 cm/sec. Dist ICA 115.6/15.2 cm/sec. Dist ICA 136.7/20.4 cm/sec. Rt. ICA/CCA = 1.0. Lt. ICA/CCA = 2.4. Prox ECA 115.6 cm/sec. Prox ECA 240.1 cm/sec. Rt. Vert. 47.5/9.7 cm/sec. Lt. Vert. 71.8/10.2 cm/sec. Right Extracranial There is homogeneous, smooth atherosclerotic plaque noted in the right common carotid artery. There is heterogeneous, irregular atherosclerotic plaque noted in the right internal carotid artery. There is no significant atherosclerotic plaque noted in the right external carotid artery. Antegrade flow is noted in the right vertebral artery. Left Extracranial There is homogeneous, smooth atherosclerotic plaque noted in the left common carotid artery. There is heterogeneous, irregular atherosclerotic plaque noted in the left internal carotid artery. The atherosclerotic plaque causes acoustic shadowing. There is heterogeneous, irregular atherosclerotic plaque noted in the left external carotid artery. Procedure Carotid Duplex [id number]. Exam performed in department. Interpretation Summary Minimal plague at the proximal right internal carotid with <50% stenosis <50% stenosis right external carotid Calcific irregular plague at the proximal left internal carotid with 50-69% stenosis Plague and >50% stenosis left external carotid Patent and antegrade vertebrals bilaterally Findings show slight progression on the left from 08/05/05. Ordering Physician: Joi Rivera Referring Physician: Boyd Casiano Performed By: Sharon Bridges RVT
== END | disposition home or self-care (01) ==
PROVIDERS: Family Provider Family Medicine; PCP Family Medicine; Referring Provider Physician Assistant Medical; Visit Provider Physician Assistant Medical
DX: R09.89 Other specified symptoms and signs involving the circulatory and respiratory systems (principal)
CPT/HCPCS: 93880

== ENCOUNTER → 2018-12-25 | Outpatient (CLI) | payer MEDICARE, OTHER, SELFPAY ==
[2018-12-10 07:30] VITALS: BMI 28.6
== END | disposition home or self-care (01) ==
LOC: SL 22:50
PROVIDERS: Family Provider Family Medicine; PCP Family Medicine; Referring Provider Internal Medicine Critical Care Medicine; Visit Provider Internal Medicine Critical Care Medicine
DX: G47.33 Obstructive sleep apnea (adult) (pediatric) (principal)
CPT/HCPCS: 95810

== ENCOUNTER → 2019-01-12 | Outpatient (CLI) | payer MEDICARE, OTHER, SELFPAY ==
[2018-12-10 07:30] VITALS: BMI 28.6
== END | disposition home or self-care (01) ==
LOC: SL 19:58
PROVIDERS: Family Provider Family Medicine; PCP Family Medicine; Referring Provider Nurse Practitioner Acute Care; Visit Provider Nurse Practitioner Acute Care
DX: G47.33 Obstructive sleep apnea (adult) (pediatric) (principal)
CPT/HCPCS: 95811

== ENCOUNTER → 2019-03-04 | Outpatient (CLI) | payer MEDICARE, OTHER, SELFPAY ==
[2019-03-02 08:06] VITALS: BMI 29.5
[2019-03-04 08:18] LABS: Absolute Lymphocyte Count 1.61 X10^3/uL (0.83-4.51); Absolute Neutrophil Count 5.1 X10^3/uL (2.0-7.7); Basophil# 0.05 X10^3/uL; Basophil% 0.6 % (0-1); Eosinophil# 0.23 X10^3/uL; Hematocrit 38.7 % (37-47); Hemoglobin 12.7 g/dL (12.0-15.0); Lymphocyte # 1.61 X10^3/ul (4.0); Lymphocyte % 20.9 % (19-41); Mean Corp Hgb Conc 32.8 g/dL (32-36); Mean Corpuscular Hgb 30.2 pg (27.0-32.0); Mean Corpuscular Volume 91.9 fL (81-99); Monocyte# 0.73 X10^3/uL; Monocyte% 9.5 % (0-10); NRBC Flagged by Analyzer 0 % (0-5); Neutrophil # 5.06 X10^3/uL (2.7-7.7); Neutrophil % 65.6 % (47-70); Platelet Count 245 K/mm3 (150-450); RBC Distribution Width CV 13.9 % (11.6-14.6); RBC Distribution Width SD 47.4 fl (35.1-43.9); Red Blood Count 4.21 M/mm3 (4.2-5.4); White Blood Count 7.7 K/mm3 (4.4-11.0)
[2019-03-04 08:46] LABS: BUN 26 mg/dL (7-18); Creatinine, Serum 1.22 mg/dL (0.55-1.02); Glucose 110 mg/dL (74-106)
[2019-03-04 08:47] LABS: AST(SGOT) 23 U/L (15-37); Alanine Aminotransfer ALT/SGPT 29 U/L (13-56); Albumin, Serum 3.9 g/dL (3.2-5.0); Alkaline Phosphatase 59 U/L (45-117); Anion Gap 5 (5-15); BUN/Creat Ratio 21.3 RATIO (10-20); Calcium,Total 9.2 mg/dL (8.5-10.1); Chloride 105 mmol/L (98-107); Cholesterol 97 mg/dL (200); EST Glomerular Filtration Rate 45 mL/min (>60); Est Glom Filt Rate - Afr Amer 54 mL/min (>60); Globulin 4.2 g/dL (2.2-4.2); High Density Lipoprotein 38 mg/dL; Potassium 3.9 mmol/L (3.5-5.1); Protein, Total 8.1 g/dL (6.4-8.2); Sodium Level 139 mmol/L (136-145); T4 Free Direct 1.09 ng/dL (0.76-1.46); Triglycerides 147 mg/dL; Very Low Density Lipoprotein 29 mg/dL (5-40)
== END | disposition home or self-care (01) ==
LOC: LAB 07:45
PROVIDERS: Family Provider Family Medicine; PCP Family Medicine; Referring Provider Physician Assistant Medical; Visit Provider Physician Assistant Medical
DX: E78.5 Hyperlipidemia, unspecified (principal); E03.9 Hypothyroidism, unspecified; I10 Essential (primary) hypertension
CPT/HCPCS: 36415; 80048; 80061; 80076; 84439; 84443; 85025

== ENCOUNTER → 2019-04-06 | Outpatient (CLI) | payer MEDICARE, OTHER, SELFPAY ==
[2019-03-02 08:06] VITALS: BMI 29.5
== END | disposition home or self-care (01) ==
LOC: SL 14:08
PROVIDERS: Family Provider Family Medicine; PCP Family Medicine; Referring Provider Nurse Practitioner Acute Care; Visit Provider Nurse Practitioner Acute Care
DX: G47.33 Obstructive sleep apnea (adult) (pediatric) (principal)
CPT/HCPCS: 98960; G0463

== ENCOUNTER 2019-04-15 02:20 | Observation (INO) | payer MEDICARE, OTHER, SELFPAY ==
[2019-04-07 14:51] VITALS: BMI 29.8
[2019-04-15] VITALS (15 sets, daily range): BP systolic 101–208; BP diastolic 42–63; PULSE 50–61; RESP 11–18; TEMP 36.5–37.2; O2SAT 94–99; BMI 33.0; BMI 32.5
--- NOTE | 2019-04-15 02:33 | ED.DCSUM_ITS ---
History of Present Illness Chief Complaint: Chest Pain Informant: Patient Onset: Hours - 0.5-1 Activity at onset: Sleep Timing: Continuous Quality: Heaviness Location: Left Chest - w/ radiation into left jaw and shoulder, and down LUE Current Severity: Gone Maximum Severity: 6/10 Worsened By: Nothing. Not Worsened By: Breathing Relieved By: NTG - x2 Associated Symptoms: Nausea. Negative for: Vomiting, Diaphoresis, Dyspnea, Cough, Fever, Lightheadedness, Acid Reflux, Palpitations Narrative: [place] tired all day this past day. Woke up just before 2 AM with this discomfort. Has a history of 7 stents. Took a nitroglycerin at home which im proved her discomfort and another one in route here by private car, now her discomfort is completely resolved, as is the arm and jaw pain. Her nausea is also resolved. Prior Similar Symptoms: Yes, With Prior MO Recent Illness/Hospitalization: No - Past Medical History (1) ABDIAS (obstructive sleep apnea) Status: Chronic Comment: Initial AHI 35.5 (2) CAD (coronary artery disease) Status: Chronic (3) HTN (hypertension), benign Status: Chronic (4) Hyperlipidemia Status: Chronic (5) Hypothyroidism Status: Chronic (6) Nonrheumatic aortic (valve) insufficiency Status: Chronic (7) Nonrheumatic aortic (valve) stenosis Status: Chronic (8) Nonrheumatic mitral (valve) insufficiency Status: Chronic (9) Presence of stent in coronary artery Status: Chronic Comment: Previous LEANDER to proximal to mid LAD 3.0 X 32 mm Taxus 02/23/[address] Daquan Meyer, [facility];LEANDER to mid RCA 2.5 X 24 mm Synergy 01/19/[address] Patel,[facility]; PTCA/LEANDER of the mid LCX 03/10/[address] Torrez [facility]; Successful PTCA/LEANDER mid RCA with a 2.0 x 12balloon, followed by a 2.0 x 10 Angiosculpt, followed by a 2.5 x 16 Promus Synergy, post dilated with a 2.5 x 8 NC Balloon; 85%-->0%, no dissection 07/22/2018; PTCA/LEANDER to mid RCA instent restenosis 11/13/18 Past Medical History - Allergies and Home Meds Allergies/Adverse Reactions: Allergies Iodinated Contrast Media [Iodinated Contrast- Oral and IV Dye] Allergy (Intermediate, Verified 04/07/19 14:51) Rash ramipril [From Altace] Adverse Reaction (Severe, Verified 04/07/19 14:51) cough Primary Care Physician: Boyd Casiano MD [Primary Care Provider] - Surgical History: angioplasty, cholecystectomy, - - Cardiac stents in 2004, one stent in January 2018, one stent in March 2018, one stent in July 2018 Lives: Spouse/ Significant Other Smoking Status: Never smoker - Family History Maternal Family History: Family History (Last Reviewed 04/07/19 @ 15:23 by ERYN White) Mother Myocardial infarction Father Colon cancer Family History: Reports: Heart Disease - [place] Paternal Family History: Family History (Last Reviewed 04/07/19 @ 15:23 by ERYN White) Mother Myocardial infarction Father Colon cancer Family History: Reports: Cancer - colon Review of Systems General: Reports: Malaise. Denies: Chills, Fever, Sweats Eyes: Denies: Visual changes - bilaterally, Diplopia ENT: Denies: Rhinorrhea, Sore throat Cardiovascular: Reports: Chest pain. Denies: Palpitations Respiratory: Denies: Dyspnea, Cough, Dyspnea on exertion Gastrointestinal: Reports: Nausea. Denies: Abdominal pain, Vomiting, Diarrhea, Melena, Hematochezia Genitourinary: Denies: Dysuria, Hematuria, Frequency Musculoskeletal: Reports: Extremity Pain. Denies: Back pain, Swelling Skin: Denies: Rash, Wounds Neurological: Denies: Headache, Weakness, Numbness Physical Exam Vital Signs/Narrative: Vital Signs Temp Pulse Resp BP Pulse Ox 04/15/19 02:21 98.5 F 61 12 208/60 H 95 Inital Vital Signs reviewed: Yes General: Well nourished, Well developed, No Acute Distress Head: Normocephalic, Atraumatic Eyes: Perrl, EOMI ENT: Moist mucous membranes, No rhinorrhea Neck: Supple, Nontender Cardiovascular: Regular rate, Regular rhythm, No murmurs Respiratory: No distress, CTA bilaterally, Chest nontender Abdomen: Soft, Nontender, Nondistended, Normal bowel sounds Back: Nontender, Normal Inspection Extremities: Nontender, No edema. Negative for: Calf Tenderness Skin: Normal color, No rash, No Trauma Neurological: Alert, Oriented x3, Cranial nerves II-XII grossly intact, Normal Strength, Normal Sensation Psychological: Normal affect, Normal Mood Diagnostic/Tx/Re-eval Chest X-Ray - ED: 1 View, Read by ED Physician, No Acute Disease, Chronic Changes Laboratory Tests 04/15/19 04/15/19 04/15/19 Range/Units 02:35 02:35 02:35 WBC 8.0 (4.4-11.0) K/mm3 RBC 4.24 (4.2-5.4) M/mm3 Hgb 12.7 (12.0-15.0) g/dL Hct 38.5 (37-47) % MCV 90.8 (81-99) fL MCH 30.0 (27.0-32.0) pg MCHC 33.0 (32-36) g/dL RDW Std Deviation 45.9 H (35.1-43.9) fl RDW Coeff of Martha 13.8 (11.6-14.6) % Plt Count 233 (150-450) K/mm3 MPV 10.0 (6.2-12.0) fl Immature Gran % (Auto) 0.200 (0.0-0.9) % Neut % (Auto) 62.4 (47-70) % Lymph % (Auto) 23.4 (19-41) % [place] % (Auto) 10.6 H (0-10) % Eos % (Auto) 2.5 (0-5) % Baso % (Auto) 0.9 (0-1) % Absolute Neuts (auto) 5.0 (2.0-7.7) X10^3/uL Absolute Lymphs (auto) 1.88 (0.83-4.51) X10^3/uL Nucleated RBC % 0 (0-5) % APTT 26.9 (24.1-36.2) Seconds Sodium 140 (136-145) mmol/L Potassium 3.9 (3.5-5.1) mmol/L Chloride 102 (98-107) mmol/L Carbon Dioxide 30.0 (21.0-32.0) mmol/L Anion Gap 8 (5-15) BUN 27 H (7-18) mg/dL Creatinine 1.14 H (0.55-1.02) mg/dL Estim Creat Clear Calc 29.21 ml/min Est GFR (MDRD) Af Amer 59 L (>60) mL/min Est GFR (MDRD) Non-Af 49 L (>60) mL/min BUN/Creatinine Ratio 23.7 H (10-20) RATIO Glucose 117 H (74-106) mg/dL Calcium 9.6 (8.5-10.1) mg/dL Troponin I < 0.015 (<0.045) ng/mL - Rhythm Strip Rhythm Strip: Sinus Rhythm Rate: 52 Ectopy: None - EKG Initial EKG Interpretation: No Acute Injury Pattern, Sinus Bradycardia Prior: Unchanged Treatment: Aspirin, NTG Topical Repeat Eval: Pain Free LUIS Risk: Age >/= 65, >/= 3RF, H/O CAD, ASA within 7 days Score: 4 - Medical Decision Making At this time EKG and enzymes are normal/unremarkable/negative, however she has had this happen before and needed a stent. She is not having an acute MO, however she will be admitted to PCU to rule out acute coronary syndrome. ED Disposition - Plan for ED Patient: Disposition: Acute Care Hospital [facility] Diagnosis: Chest pain, CAD (coronary artery disease) Referrals: Boyd Casiano MD [Primary Care Provider] -
--- NOTE | 2019-04-15 02:33 | EKG12_ITS ---
Test Reason : CP Blood Pressure : / mmHG Vent. Rate : 052 BPM Atrial Rate : 052 BPM P-R Int : 170 ms QRS Dur : 088 ms QT Int : 440 ms P-R-T Axes : 070 011 039 degrees QTc Int : 409 ms Sinus bradycardia Otherwise normal ECG Confirmed by FREDDIE WYNN, DAMIR ([id number]), senior technical editor JANETT MURPHY ([id number]) on 04/19/2019 8:35:00 AM Referred By: Teodora Rand Confirmed By:ALEXIS FRAZIER MD
--- NOTE | 2019-04-15 02:33 | RAD_ITS ---
STUDY: X-RAY CHEST REASON FOR EXAM: Female, 83 years old. Jaw pain. Chest pain and nausea. TECHNIQUE: Single AP portable view of the chest. COMPARISON: None. FINDINGS: The lungs are clear and expanded. There is no demonstrated pleural abnormality. Normal size heart. Normal mediastinum and to. Normal visualized pulmonary arteries. Normal visualized aortic arch and descending thoracic aorta. There are diffuse degenerative changes of the visualized thoracic spine. There is degenerative osteoarthritis of the bilateral shoulders. There is no demonstrated abnormality of the visualized soft tissue structures of the upper abdomen. RAD/Chest 1 View (Portable) IMPRESSION: Degenerative changes, as described above. No demonstrated acute cardiopulmonary process. Electronically Signed: Nico Jeffery, at 3:10 EDT Tel , Service support ,
[2019-04-15] MEDS: Aspirin 81 MG TAB.CHEW 324 MG PO (02:40)
[2019-04-15] MEDS: Nitroglycerin Oint 1 INCH PACKET TRANSDERM. (02:40)
[2019-04-15 02:42] LABS: Absolute Lymphocyte Count 1.88 X10^3/uL (0.83-4.51); Basophil# 0.07 X10^3/uL; Basophil% 0.9 % (0-1); Eosinophils% 2.5 % (0-5); Hematocrit 38.5 % (37-47); Hemoglobin 12.7 g/dL (12.0-15.0); Lymphocyte # 1.88 X10^3/ul (4.0); Lymphocyte % 23.4 % (19-41); Mean Corpuscular Volume 90.8 fL (81-99); Monocyte# 0.85 X10^3/uL; Monocyte% 10.6 % (0-10); NRBC Flagged by Analyzer 0 % (0-5); Neutrophil % 62.4 % (47-70); Platelet Count 233 K/mm3 (150-450); RBC Distribution Width CV 13.8 % (11.6-14.6); RBC Distribution Width SD 45.9 fl (35.1-43.9); Red Blood Count 4.24 M/mm3 (4.2-5.4)
[2019-04-15 02:51] LABS: Partial Thromboplast Time 26.9 Seconds (24.1-36.2)
[2019-04-15 02:59] LABS: Anion Gap 8 (5-15); BUN 27 mg/dL (7-18); BUN/Creat Ratio 23.7 RATIO (10-20); Calcium,Total 9.6 mg/dL (8.5-10.1); Chloride 102 mmol/L (98-107); Creatinine, Serum 1.14 mg/dL (0.55-1.02); EST Glomerular Filtration Rate 49 mL/min (>60); Est Glom Filt Rate - Afr Amer 59 mL/min (>60); Estimated Creatinine Clearance 29.21 ml/min; Glucose 117 mg/dL (74-106); Potassium 3.9 mmol/L (3.5-5.1); Sodium Level 140 mmol/L (136-145)
--- NOTE | 2019-04-15 03:26 | PCM.HP.STD ---
Problem List (1) Chest pain Status: Acute (2) ABDIAS (obstructive sleep apnea) Status: Chronic Comment: Initial AHI 35.5 (3) CAD (coronary artery disease) Status: Chronic Qualifiers: Coronary Disease-Associated Artery/Lesion type: unspecified vessel or lesion type [place] vs. transplanted heart: unspecified whether [place] or transplanted heart Associated angina: angina presence unspecified Qualified Code(s): I25.10 - Atherosclerotic heart disease of [place] coronary artery without angina pectoris (4) Valvular heart disease Status: Chronic (5) Hypothyroidism Status: Chronic Qualifiers: Hypothyroidism type: unspecified Qualified Code(s): E03.9 - Hypothyroidism, unspecified (6) Hyperlipidemia Status: Chronic Qualifiers: Hyperlipidemia type: pure hypercholesterolemia Qualified Code(s): E78.00 - Pure hypercholesterolemia, unspecified; E78.0 - Pure hypercholesterolemia (7) HTN (hypertension), benign Status: Chronic (8) S/P coronary artery stent placement Status: Chronic Comment: LEANDER to mid RCA 2.5 X 24 mm [facility] [facility]/LEANDER of the mid LCX 03/10/[address] Torrez [facility] Successful PTCA/LEANDER mid RCA with a 2.0 x 12balloon, followed by a 2.0 x 10 Angiosculpt, followed by a 2.5 x 16 Promus Synergy, post dilated with a 2.5 x 8 NC Balloon; 85%-->0%, no dissection on 07/22/2018. History of Present Illness Date of Admission: 04/15/19 Chief Complaint: Chest pain The patient is a 83 y/o F w/ PMHx: Obesity, Valvular Heart Disease, HTN, HLD, CAD s/p PCI x 7, Hypothyroidism who presents to the [facility] ED on 04/15/19 with history of onset of chest discomfort approximately 30 minutes to 1 hour prior to arrival, waking up from sleep noted to be left-sided described as a heaviness with radiation to the left jaw, left shoulder and left upper extremity initially 6 out of 10 in severity with associated nausea without emesis with no associated dyspnea or diaphoresis with improvement following self administration of nitroglycerin x2. Work-up in the ED included T 90.5, heart rate 61, BP initially 208/60 with improvement to 126/47 following intervention, respiratory rate 12, 95% on room air, CBC with WBC 8, hemoglobin 12.7, platelet 233 without left shift, PTT 26.9, BMP with BUN/creatinine 27/1.14, glucose 117, troponin less than 0.015, chest x-ray with no acute cardiopulmonary findings, EKG with sinus bradycardia with no acute evidence of ischemia. In the ED patient administered normal saline, Nitro-Bid, aspirin therapy. Past Medical History Past Medical History (Chronic Problems): Chronic Problems (Last Reviewed 04/07/19 @ 15:23 by ERYN White) ABDIAS (obstructive sleep apnea) (Chronic) Initial AHI 35.5 Nonrheumatic mitral (valve) insufficiency (Chronic) Nonrheumatic aortic (valve) insufficiency (Chronic) Nonrheumatic aortic (valve) stenosis (Chronic) Carotid artery disease (Chronic) Atherosclerotic heart disease of [place] coronary artery without angina pectoris (Chronic) Previous LEANDER to proximal to mid LAD 3.0 X 32 mm Taxus 02/23/[address] Daquan Meyer, [facility];LEANDER to mid RCA 2.5 X 24 mm Sy[facility] [facility] PTCA/LEANDER of the mid LCX 03/10/[address] Torrez [facility]; Successful PTCA/LEANDER mid RCA with a 2.0 x 12balloon, followed by a 2.0 x 10 Angiosculpt, followed by a 2.5 x 16 Promus Synergy, post dilated with a 2.5 x 8 NC Balloon; 85%-->0%, no dissection 07/22/2018; Successful LEANDER Mid RCA ISR using Resolute Integrity 2.5x12 mm 11/12/2018 Presence of stent in coronary artery (Chronic ~11/13/18) Previous LEANDER to proximal to mid LAD 3.0 X 32 mm Taxus 02/23/[address] Daquan Meyer, [facility];LEANDER to mid RCA 2.5 X 24 mm Synergy [facility] [facility] PTCA/LEANDER of the mid LCX 03/10/[address] Torrez [facility]; Successful PTCA/LEANDER mid RCA with a 2.0 x 12balloon, followed by a 2.0 x 10 Angiosculpt, followed by a 2.5 x 16 Promus Synergy, post dilated with a 2.5 x 8 NC Balloon; 85%-->0%, no dissection 07/22/2018; PTCA/LEANDER to mid RCA instent restenosis 11/13/18 CAD (coronary artery disease) (Chronic) Valvular heart disease (Chronic) Hypothyroidism (Chronic) Hyperlipidemia (Chronic) HTN (hypertension), benign (Chronic) S/P coronary artery stent placement (Chronic ~2017) LEANDER to mid RCA 2.5 X 24 mm Synergy [facility] [facility]; PTCA/LEANDER of the mid LCX 03/10/[address] Torrez [facility] Successful PTCA/LEANDER mid RCA with a 2.0 x 12balloon, followed by a 2.0 x 10 Angiosculpt, followed by a 2.5 x 16 Promus Synergy, post dilated with a 2.5 x 8 NC Balloon; 85%-->0%, no dissection on 07/22/2018. Medical History: Medical History (Last Reviewed 04/07/19 @ 15:23 by ERYN White) Nonrheumatic mitral (valve) insufficiency (Chronic) I34.0 Nonrheumatic aortic (valve) insufficiency (Chronic) I35.1 Nonrheumatic aortic (valve) stenosis (Chronic) I35.0 Carotid artery disease (Chronic) I77.9 Atherosclerotic heart disease of [place] coronary artery without angina pectoris (Chronic) I25.10 Previous LEANDER to proximal to mid LAD 3.0 X 32 mm Taxus 02/23/[address] Daquan Meyer, [facility];LEANDER to mid RCA 2.5 X 24 mm Synergy [facility] [facility]; PTCA/LEANDER of the mid LCX 03/10/[address] Torrez [facility]; Successful PTCA/LEANDER mid RCA with a 2.0 x 12balloon, followed by a 2.0 x 10 Angiosculpt, followed by a 2.5 x 16 Promus Synergy, post dilated with a 2.5 x 8 NC Balloon; 85%-->0%, no dissection 07/22/2018; Successful LEANDER Mid RCA ISR using Resolute Integrity 2.5x12 mm 11/12/2018 Chest pain (Resolved) R07.9 CAD (coronary artery disease) (Chronic) I25.10 Angina pectoris (Acute) I20.9 Valvular heart disease (Chronic) I38 Hypothyroidism (Chronic) E03.9 Hyperlipidemia (Chronic) E78.5 HTN (hypertension), benign (Chronic) I10 Aortic insufficiency (Inactive) I35.1 Allergies Iodinated Contrast Media [Iodinated Contrast- Oral and IV Dye] Allergy (Intermediate, Verified 04/07/19 14:51) Rash ramipril [From Altace] Adverse Reaction (Severe, Verified 04/07/19 14:51) cough Home Medications: Ambulatory Orders Medication Instructions Recorded levothyroxine 88 mcg tablet 88 mcg PO DAILY 90 Days 06/10/17 Ascorbic Acid [Vitamin C] 500 mg PO DAILY 01/16/18 Folic Acid 0.4 mg PO DAILY@0800 01/16/18 Ubidecarenone [Co Q-10] 100 mg PO DAILY 03/09/18 atorvastatin 40 mg tablet 40 mg PO DAILY 90 Days #90 tab 08/07/18 Aspirin E.C. [Ecotrin] 81 mg PO DAILY@0800 11/12/18 Calcium Citrate 200 mg PO DAILY 11/12/18 Calcium Citrate 400 mg PO DAILY@1200 11/12/18 Losartan Potassium [Cozaar] 50 mg PO BID 11/12/18 Metoprolol(XL)Succ [Toprol Xl 50 mg PO DAILY 11/12/18 (Beta Tg)] Multivitamins,Therapeutic 1 tab PO DAILY 11/12/18 [Multivitamin] [place]-3 Fatty Acids/Fish Oil [Fish 1 cap PO BID 11/12/18 Oil 1,000 mg Capsule] Potassium Chloride [K-Tab ER] 10 meq PO DAILY 11/12/18 Triamterene 37.5MG/Hctz 25MG 1 cap PO DAILY 11/12/18 [Dyazide (G)] nitroglycerin 0.4 mg sublingual 0.4 mg SUBLINGUAL Q5-15M PRN 10 12/01/18 tablet Days #25 tab clopidogrel 75 mg tablet 75 mg PO DAILY #90 tab 02/12/19 Surgical History: Surgical History (Last Reviewed 04/07/19 @ 15:23 by ERYN White) Presence of stent in coronary artery (Chronic) Onset Date: ~11/13/18 Z95.5 Previous LEANDER to proximal to mid LAD 3.0 X 32 mm Taxus 02/23/[address] Daquan Meyer, [facility];LEANDER to mid RCA 2.5 X 24 mm [facility] [facility]; PTCA/LEANDER of the mid LCX 03/10/[address] Torrez [facility]; Successful PTCA/LEANDER mid RCA with a 2.0 x 12balloon, followed by a 2.0 x 10 Angiosculpt, followed by a 2.5 x 16 Promus Synergy, post dilated with a 2.5 x 8 NC Balloon; 85%-->0%, no dissection 07/22/2018; PTCA/LEANDER to mid RCA instent restenosis 11/13/18 S/P coronary artery stent placement (Chronic) Onset Date: ~2017 Z95.5 LEANDER to mid RCA 2.5 X 24 mm Synergy [facility] [facility] PTCA/LEANDER of the mid LCX 03/10/[address] Torrez [facility] Successful PTCA/LEANDER mid RCA with a 2.0 x 12balloon, followed by a 2.0 x 10 Angiosculpt, followed by a 2.5 x 16 Promus Synergy, post dilated with a 2.5 x 8 NC Balloon; 85%-->0%, no dissection on 07/22/2018. 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 Denies: Anorexia, Chills, Fever, Malaise, Weakness, Weight Change HEENT: Denies: Head Aches, Sinus Congestion, Sinus Drainage Cardiovascular: Reports: Chest Pain, Chest Pressure. Denies: Chest Tightness, Light Headedness, Orthopnea, Palpitations, Syncope Respiratory: Denies: Cough, Shortness of breath at rest, Sputum production Gastrointestinal: Reports: Nausea. Denies: Abdominal Pain, Vomiting Genitourinary: Denies: Dysuria Musculoskeletal: Reports: Joint Pain. Denies: Joint Tenderness Skin: Denies: Rash, Wounds Neurological: Denies: Numbness, Tingling, Focal weakness Psychiatric: Denies: Anxiety, Depression, Homicidal Ideations, Suicidal Ideations Hematologic/ Lymphatic: Reports: Easy Bruising, Easy Bleeding VTE Information - Inpt Only VTE Present on Admission: No VTE Mechan Device Prophylaxis: SCD's VTE Pharm Prophylaxis ordered?: Yes Patient Problems: Active and Suspected Problems (Last Reviewed 04/07/19 @ 15:23 by ERYN White) Chest pain (Acute) Subjective: Seated upright in the ED bed, mildly fatigued appearance, notes chest discomfort resolves with nitroglycerin paste in place. Objective: Physical Examination: General: awake, alert, oriented x 3 and cooperative, seated upright in the ED bed in no apparent distress. Skin: normal color, turgor, no icterus, cyanosis. HEENT: AT/NC, EOMI, PERRLA, MMM, no carotid bruits or JVD noted. Lungs: CTA bilaterally, moderate effort, mild decrease BL bases, no rales, ronchi or wheezing. Heart: Bradycardic with regular rhythm; no gallop, rub audible. Abdomen: soft, obese, NTTP, ND, normal BS, no HSM. Extremities: no cyanosis, clubbing, or edema. Neurological: patient awake, alert, oriented x 3; cognitive function intact; pupils equally reactive to light and accomodation; cranial nerves II-XII grossly normal, moving all 4 extremities, no focal deficits, strength mildly to moderately global decrease secondary to acute presentation. Psychiatric: affect appears normal, no acute evidence of depressive or anxiety feelings. - Physical Exam Vitals/I&O's: Vital Signs Temp Pulse Resp BP Pulse Ox 98.5 F 50 L 11 L 126/47 H 99 04/15/19 02:21 04/15/19 03:17 04/15/19 03:17 04/15/19 03:17 04/15/19 03:17 Oxygen Delivery Method Room Air Weight: 174 lb 13.225 oz Body Mass Index (BMI) 33.0 Laboratory Results 04/15/19 02:35: WBC 8.0, RBC 4.24, Hgb 12.7, Hct 38.5, MCV 90.8, MCH 30.0, MCHC 33.0, RDW Std Deviation 45.9 H, RDW Coeff of Martha 13.8, Plt Count 233, MPV 10.0, Immature Gran % (Auto) 0.200, Neut % (Auto) 62.4, Lymph % (Auto) 23.4, Door % (Auto) 10.6 H, Eos % (Auto) 2.5, Baso % (Auto) 0.9, Absolute Neuts (auto) 5.0, Absolute Lymphs (auto) 1.88, Nucleated RBC % 0 04/15/19 02:35: APTT 26.9 04/15/19 02:35: Sodium 140, Potassium 3.9, Chloride 102, Carbon Dioxide 30.0, Anion Gap 8, BUN 27 H, Creatinine 1.14 H, Estim Creat Clear Calc 29.21, Est GFR (MDRD) Af Amer 59 L, Est GFR (MDRD) Non-Af 49 L, BUN/Creatinine Ratio 23.7 H, Glucose 117 H, Calcium 9.6, Troponin I < 0.015 Current Medications Sodium Chloride () 1,000 mls @ 150 mls/hr IV .[id number] LUDIN Assessment/Plan All Active Problems (Last Reviewed 04/07/19 @ 15:23 by ERYN White) Chest pain (Acute) Unstable angina (Acute) Anginal equivalent (Acute) Jaw pain (Acute) Left shoulder pain (Acute) Chest pain (Resolved) Angina pectoris (Acute) The patient is a 83 y/o F w/ PMHx: CKD stage III, Obesity, Valvular Heart Disease, HTN, HLD, CAD s/p PCI x 7, Hypothyroidism who presents to the [facility] ED on 04/15/19 with history of onset of chest discomfort approximately 30 minutes to 1 hour prior to arrival, waking up from sleep noted to be left-sided described as a heaviness with radiation to the left jaw, left shoulder and left upper extremity initially 6 out of 10 in severity. (1) Chest Pain: EKG in ED with no acute evidence of ischemia, CXR w/ no acute cardiopulmonary findings, initial trop normal x1. Will admit to PCU, place on a monitored bed to assure no acute myocardial infarction with serial cardiac enzymes and EKGs. Patient with recent PCI 11/13/2018 with at that time noted agree in-stent stenosis of prior RCA stent requiring repeat intervention. Given that this prior intervention occurred approximately 5 months prior we will continue as noted with serial cardiac enzymes and EKGs and if remains unchanged we will pursue cardiac stress testing in a.m. If enzymes, EKG or stress testing is abnormal we will pursue cardiology consultation. Given patient history and similar presentation 5 months prior with at that time re-in-stent stenosis will also request cardiology consultation and if preference to transition to catheterization would plan to defer stress testing. ASA, NG, morphine. FLP in AM. Magnesium pending. (2) CAD: Status post PCI x7, maintained on aspirin, Plavix, metoprolol, losartan. Most recent intervention 11/13/18 with cardiac catheterization demonstrating a repeat RCA in-stent restenosis requiring repeat RCA PTCA/LEANDER. (3) Hypertension: Continue home regimen including losartan, metoprolol, triamterene, hydrochlorothiazide, PRN hydralazine. (4) Hypothyroidism: Continue home synthroid regimen. (5) Valvular heart disease: 03/24/2018 echocardiogram with normal LV systolic function, EF 65%, mildly enlarged LA, mild MVI, mild to moderate TBI, AVS, mild AARON, RVSP 28 mmHg, evidence of diastolic dysfunction. (6) Obesity: Weight loss and lifestyle changes encouraged, nutrition consulted. (7) CKD stage III: Admission BUN/Cr 27/1.14, baseline similar, trend. (8) DVT prophylaxis: SCDs, renally dosed Lovenox. Code Visit OBSV E&M: [id number] Initial observation care L3
--- NOTE | 2019-04-15 04:00 | EKG12_ITS ---
Test Reason : CP ADMIT Blood Pressure : / mmHG Vent. Rate : 048 BPM Atrial Rate : 048 BPM P-R Int : 174 ms QRS Dur : 088 ms QT Int : 468 ms P-R-T Axes : 069 011 047 degrees QTc Int : 418 ms Sinus bradycardia Otherwise normal ECG Confirmed by LEO WYNN, PORTIA ([id number]), managing editor RIVERA EASTON ([id number] on 04/20/2019 8:56:44 AM Referred By: Teodora Rand Confirmed By:PORTIA BAILEY MD
[2019-04-15 04:31] LABS: Cholesterol 107 mg/dL (200); High Density Lipoprotein 37 mg/dL; Magnesium 2.1 mg/dL (1.6-2.6); Triglycerides 219 mg/dL; Very Low Density Lipoprotein 44 mg/dL (5-40)
[2019-04-15] MEDS: 0.9% Normal Saline 1,000 ML 100 ML IV (04:59)
[2019-04-15] MEDS: Aspirin E.C. 81 MG Tablet PO (05:06)
[2019-04-15] MEDS: Levothyroxine 88 MCG Tablet PO (05:06)
[2019-04-15] MEDS: Clopidogrel Bisulfate 75 MG Tablet PO (05:07)
[2019-04-15] MEDS: Losartan Potassium 50 MG Tablet PO ×2 (05:07→21:50)
[2019-04-15] MEDS: Metoprolol(XL)Succ 50 MG Tablet PO (11:44)
[2019-04-15] MEDS: Triamterene 37.5MG/Hctz 25MG Capsule 1 CAP PO (11:44)
--- NOTE | 2019-04-15 12:07 | STRESSREP_ITS ---
Stress Test Report Date: 04-15-19 Procedure: Pharmacologic stress nuclear imaging study Indications: Chest pain; CAD; PCI Consent: Per the patient Procedure: The patient underwent pharmacologic (Regadenoson) evaluation with a peak heart rate of 86 beats per minute (61 %predicted maximal heart rate) and a peak blood pressure of 194/68 mmHg. The baseline ECG demonstrated normal sinus rhythm. The peak pharmacologic ECG demonstrated no obvious ECG changes, however, in recovery there was notation of approximately 0.5 to 1.[address] segment depression in leads II, III, aVF and approximately 0.[address] segment depression in leads V4 through V6 with gradual resolution towards baseline in recovery.. There were no cardiac dysrhythmias pretest, during pharmacologic infusion, or recovery. The patient noted chest discomfort during pharmacologic infusion and recovery with subsequent spontaneous resolution in recovery. The examination was discontinued secondary to completion of protocol. Impression: 1. Pharmacologic (Regadenoson) evaluation 2. Peak pharmacologic ECG with approximately 0.5 to 1.[address] segment depression in leads II, III, aVF, and approximately 0.[address] segment depression in leads V4 through V6 in recovery with subsequent gradual resolution towards baseline in recovery. 3. There were no cardiac dysrhythmias pretest, during pharmacologic infusion, or recovery. 4. Nuclear images pending Myocardial perfusion imaging study: Technique: The patient was injected with 12.0 millicuries of technetium 99m Cardiolite and subsequently rest SPECT Cardiolite nuclear imaging was obtained in the horizontal long, vertical long, and short axis views. The patient underwent pharmacologic (Regadenoson) evaluation with a peak heart rate of 86 beats per minute (61 % percent predicted maximal heart rate) and a peak blood pressure of 194/68 mmHg. The patient was injected with 36.0 millicuries of technetium 99m Cardiolite and subsequently stress SPECT Cardiolite nuclear imaging was obtained in the horizontal long, vertical long, and short axis views. A gated Cardiolite study at peak stress was obtained. Interpretation: Rest and stress SPECT Cardiolite nuclear imaging status post realignment, normalization, and attenuation correction demonstrate at rest the appearance of relative uniform tracer uptake. Status post stress there is a small area of diminished tracer uptake in the basal/mid inferior septal/inferior segments. There are similar type findings on the resting/stress polar map images. There is end systolic thickening and brightening. The gated Cardiolite study demonstrates myocardial thickening and inward wall motion. The reported LVEF is 75 %. Impression: 1. Rest and stress SPECT Cardiolite nuclear imaging demonstrate post stress a small area of diminished tracer/perfusion uptake in the basal/mid inferior septal/inferior segments concerning for an area of stress-induced myocardial ischemia. 2. The gated Cardiolite study reports an LVEF of 75 %. This note was generated with [employer] software. It may contain incorrect words, spelling, and punctuation that were not noted in checking the note before signing.
[2019-04-15] MEDS: 0.9% Normal Saline 1,000 ML 75 ML IV (13:26)
--- NOTE | 2019-04-15 13:48 | PN_ITS ---
<Fernando John - Last Filed: 04/15/19 13:48> Patient Problems: Active and Suspected Problems (Last Reviewed 04/07/19 @ 15:23 by ERYN White) Chest pain (Acute) Subjective: During the stress test today the patient had a recurrence of her symptoms. She describes left sided chest pain radiating into the left jaw and left shoulder. No SOB/LH/Dizziness/Palp. Stress was abnormal, pt agreeable to heart cath. - Physical Exam Vitals/I&O's: Vital Signs Temp Pulse Resp BP Pulse Ox 98.1 F 53 L 12 145/63 H 94 04/15/19 09:15 04/15/19 11:44 04/15/19 09:15 04/15/19 09:15 04/15/19 09:15 Oxygen Delivery Method Room Air Weight: 171 lb 15.369 oz Body Mass Index (BMI) 32.5 Intake and Output for Last 24 Hours 04/13/19 04/14/19 04/15/19 23:59 23:59 23:59 Intake Total 726.67 / 726.67 Balance 726.67 / 726.67 General: Alert, Oriented x3, Cooperative HEENT: Atraumatic, PERRLA, EOMI, Normocephalic Neck: Supple, No JVD, Negative Carotid Bruits Lungs: Clear to auscultation, Normal air movement Cardiovascular: Regular rate, No murmurs, Murmur - 3/6 systolic murmur best at LSB 2nd ICS Abdomen: Bowel Sounds Present, Soft, Non Tender Extremities: No edema, Capillary Refill Less than 3 Seconds Skin: No rashes, No breakdown Musculoskeletal: No Tenderness to Palpation of Joints or Extremities Neurological: Cranial nerves II-XII grossly intact Psych/Mental Status: Normal Affect, Appropriate, Alert and oriented to time, place, person, mood and affect Laboratory Results 04/15/19 02:35: WBC 8.0, RBC 4.24, Hgb 12.7, Hct 38.5, MCV 90.8, MCH 30.0, MCHC 33.0, RDW Std Deviation 45.9 H, RDW Coeff of Martha 13.8, Plt Count 233, MPV 10.0, Immature Gran % (Auto) 0.200, Neut % (Auto) 62.4, Lymph % (Auto) 23.4, [place] % (Auto) 10.6 H, Eos % (Auto) 2.5, Baso % (Auto) 0.9, Absolute Neuts (auto) 5.0, Absolute Lymphs (auto) 1.88, Nucleated RBC % 0 04/15/19 02:35: APTT 26.9 04/15/19 02:35: Sodium 140, Potassium 3.9, Chloride 102, Carbon Dioxide 30.0, Anion Gap 8, BUN 27 H, Creatinine 1.14 H, Estim Creat Clear Calc 29.21, Est GFR (MDRD) Af Amer 59 L, Est GFR (MDRD) Non-Af 49 L, BUN/Creatinine Ratio 23.7 H, Glucose 117 H, Calcium 9.6, Troponin I < 0.015 04/15/19 02:35: Magnesium 2.1, Triglycerides 219 H, Cholesterol 107, LDL Cholesterol 26, VLDL Cholesterol 44 H, HDL Cholesterol 37 L 04/15/19 05:25: Troponin I < 0.015 04/15/19 08:05: Troponin I < 0.015 Current Medications Acetaminophen (Tylenol) 650 mg PO Q6H PRN PRN PRN Reason: Non-cardiac pain (-03/25) Al Hydroxide/Mg Hydroxide (Mylanta Ii) 15 - 30 ml PO Q4H PRN PRN PRN Reason: INDIGESTION Albuterol Sulfate (Ventolin Aerosols) 2.5 mg INHALATION Q2H PRN PRN PRN Reason: dyspnea, wheezing Aspirin (Ecotrin) 81 mg PO DAILY@0800 [facility] Last Admin: 04/15/19 05:06 Dose: 81 mg Documented by: Atorvastatin Calcium (Lipitor) 40 mg PO DAILY@2200 [facility] Clopidogrel Bisulfate (Plavix) 75 mg PO DAILY [facility] Last Admin: 04/15/19 05:07 Dose: 75 mg Documented by: Dextrose (D50w Syringe) 0 gm IV X1 PRN; Protocol PRN Reason: Hypoglycemia Diphenhydramine HCl (Benadryl) 50 mg PO 0500,2200 [facility] Stop: 04/16/19 05:01 Enoxaparin Sodium (Lovenox) 30 mg SC DAILY@1000 [facility] Last Admin: 04/15/19 07:31 Dose: Not Given Documented by: Famotidine (Pepcid) 20 mg PO 0500,2200 [facility] Stop: 04/16/19 05:01 Glucagon () 1 mg IM .X1 PRN PRN Reason: Hypoglycemia Hydralazine HCl (Apresoline Iv) 10 mg IV Q4H PRN PRN PRN Reason: SBP > 160 Sodium Chloride () 1,000 mls @ 75 mls/hr IV .[id number] [facility] Last Admin: 04/15/19 13:26 Dose: 75 mls/hr Documented by: Levothyroxine Sodium (Synthroid) 88 mcg PO DAILY@0600 [facility] Last Admin: 04/15/19 05:06 Dose: 88 mcg Documented by: Losartan Potassium (Cozaar) 50 mg PO BID [facility] Last Admin: 04/15/19 05:07 Dose: 50 mg Documented by: Magnesium Hydroxide (Milk Of Magnesia) 30 ml PO DAILY PRN PRN Reason: Constipation Metoprolol Succinate (Toprol Xl (Beta Tg)) 50 mg PO DAILY [facility] Last Admin: 04/15/19 11:44 Dose: 50 mg Documented by: Morphine Sulfate () 1 - 2 mg IV Q4H PRN PRN PRN Reason: Pain Score 1-10/10 Nitroglycerin (Nitrostat) 0.4 mg SUBLINGUAL Q5M PRN PRN Reason: CARDIAC/CHEST PAIN Ondansetron HCl (Zofran) 4 mg IV Q8H PRN PRN PRN Reason: NAUSEA/VOMITING Potassium Chloride (K-Dur) 10 meq PO DAILYCM [facility] Last Admin: 04/15/19 11:44 Dose: 10 meq Documented by: Prednisone () 60 mg PO 0500,2200 [facility] Stop: 04/16/19 05:01 Triamterene/HCTZ (Dyazide (G)) 1 cap PO DAILY [facility] Last Admin: 04/15/19 11:44 Dose: 1 cap Documented by: Medical Necessity - Tobacco Use Smoking Status: Never smoker Tobacco Use: Non-smoker Assessment/Plan All Active Problems (Last Reviewed 04/07/19 @ 15:23 by ERYN White) Chest pain (Acute) Anginal equivalent (Acute) 1. Chest pain - abnormal. c/w prior episodes of cp requiring stenting. Hx CAD with 7 stents. Cardiology aware. Cath in AM. Troponin negative x 3. FLP. done. Pt was already on asa/statin/plavix/losartan/dyazide/toprol. CXR negative. 2. HTN - mildly elevated 3. Hypothyroidism - continue synthroid 4. 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 Loud murmur on exam 5. Obesity - disc jockey consult. 6. CKDIII - will need to monitor closely with heart cath DC planning: pending results of AM cath This patient was seen by Fernando John PA-C under the supervision of Dr. Sullivan. <Abebe Sullivan E - Last Filed: 04/15/19 14:12> - Physical Exam Vitals/I&O's: Vital Signs Temp Pulse Resp BP Pulse Ox 98.1 F 53 L 12 145/63 H 94 04/15/19 09:15 04/15/19 11:44 04/15/19 09:15 04/15/19 09:15 04/15/19 09:15 Oxygen Delivery Method Room Air Weight: 171 lb 15.369 oz Body Mass Index (BMI) 32.5 Intake and Output for Last 24 Hours 04/13/19 04/14/19 04/15/19 23:59 23:59 23:59 Intake Total 726.67 / 726.67 Balance 726.67 / 726.67 Laboratory Results 04/15/19 02:35: WBC 8.0, RBC 4.24, Hgb 12.7, Hct 38.5, MCV 90.8, MCH 30.0, MCHC 33.0, RDW Std Deviation 45.9 H, RDW Coeff of Martha 13.8, Plt Count 233, MPV 10.0, Immature Gran % (Auto) 0.200, Neut % (Auto) 62.4, Lymph % (Auto) 23.4, [place] % (Auto) 10.6 H, Eos % (Auto) 2.5, Baso % (Auto) 0.9, Absolute Neuts (auto) 5.0, Absolute Lymphs (auto) 1.88, Nucleated RBC % 0 04/15/19 02:35: APTT 26.9 04/15/19 02:35: Sodium 140, Potassium 3.9, Chloride 102, Carbon Dioxide 30.0, Anion Gap 8, BUN 27 H, Creatinine 1.14 H, Estim Creat Clear Calc 29.21, Est GFR (MDRD) Af Amer 59 L, Est GFR (MDRD) Non-Af 49 L, BUN/Creatinine Ratio 23.7 H, Glucose 117 H, Calcium 9.6, Troponin I < 0.015 04/15/19 02:35: Magnesium 2.1, Triglycerides 219 H, Cholesterol 107, LDL Cholesterol 26, VLDL Cholesterol 44 H, HDL Cholesterol 37 L 04/15/19 05:25: Troponin I < 0.015 04/15/19 08:05: Troponin I < 0.015 Current Medications Acetaminophen (Tylenol) 650 mg PO Q6H PRN PRN PRN Reason: Non-cardiac pain () Al Hydroxide/Mg Hydroxide (Mylanta Ii) 15 - 30 ml PO Q4H PRN PRN PRN Reason: INDIGESTION Albuterol Sulfate (Ventolin Aerosols) 2.5 mg INHALATION Q2H PRN PRN PRN Reason: dyspnea, wheezing Aspirin (Ecotrin) 81 mg PO DAILY@0800 [facility] Last Admin: 04/15/19 05:06 Dose: 81 mg Documented by: Atorvastatin Calcium (Lipitor) 40 mg PO DAILY@2200 [facility] Clopidogrel Bisulfate (Plavix) 75 mg PO DAILY [facility] Last Admin: 04/15/19 05:07 Dose: 75 mg Documented by: Dextrose (D50w Syringe) 0 gm IV X1 PRN; Protocol PRN Reason: Hypoglycemia Diphenhydramine HCl (Benadryl) 50 mg PO 0500,2200 [facility] Stop: 04/16/19 05:01 Enoxaparin Sodium (Lovenox) 30 mg SC DAILY@1000 [facility] Last Admin: 04/15/19 07:31 Dose: Not Given Documented by: Famotidine (Pepcid) 20 mg PO 0500,2200 [facility] Stop: 04/16/19 05:01 Glucagon () 1 mg IM .X1 PRN PRN Reason: Hypoglycemia Hydralazine HCl (Apresoline Iv) 10 mg IV Q4H PRN PRN PRN Reason: SBP > 160 Sodium Chloride () 1,000 mls @ 75 mls/hr IV .[id number] [facility] Last Admin: 04/15/19 13:26 Dose: 75 mls/hr Documented by: Levothyroxine Sodium (Synthroid) 88 mcg PO DAILY@0600 [facility] Last Admin: 04/15/19 05:06 Dose: 88 mcg Documented by: Losartan Potassium (Cozaar) 50 mg PO BID [facility] Last Admin: 04/15/19 05:07 Dose: 50 mg Documented by: Magnesium Hydroxide (Milk Of Magnesia) 30 ml PO DAILY PRN PRN Reason: Constipation Metoprolol Succinate (Toprol Xl (Beta Tg)) 50 mg PO DAILY [facility] Last Admin: 04/15/19 11:44 Dose: 50 mg Documented by: Morphine Sulfate () 1 - 2 mg IV Q4H PRN PRN PRN Reason: Pain Score 1-10/10 Nitroglycerin (Nitrostat) 0.4 mg SUBLINGUAL Q5M PRN PRN Reason: CARDIAC/CHEST PAIN Ondansetron HCl (Zofran) 4 mg IV Q8H PRN PRN PRN Reason: NAUSEA/VOMITING Potassium Chloride (K-Dur) 10 meq PO DAILYCM [facility] Last Admin: 04/15/19 11:44 Dose: 10 meq Documented by: Prednisone () 60 mg PO 0500,2200 [facility] Stop: 04/16/19 05:01 Triamterene/HCTZ (Dyazide (G)) 1 cap PO DAILY [facility] Last Admin: 04/15/19 11:44 Dose: 1 cap Documented by: Assessment/Plan Hospitalist note: I am seeing this patient in conjunction with Fernando John. I independently seen and examined the patient. Progress note above, laboratory data and imaging studies reviewed and I agree with the above work-up and treatment plan. Patient went for stress this morning and she mentioned that she had chest pain, jaw pain and left shoulder pain when she was asked her to raise her upper extremities above her head. At this time, she has no more pain. Her vital signs are stable. Her EKG showed no acute ischemic changes. Troponin was negative x3. Her nuclear stress test was unremarkable and plan for cardiac catheterization tomorrow morning. - Physical Exam General: Alert, Oriented x3, Cooperative, No apparent distress. HEENT: Atraumatic, PERRLA, EOMI. Neck: Supple, No JVD, Negative Carotid Bruits, Trachea Midline, Thyroid Normal. Lungs: Diminished breath sounds bilateral, otherwise clear, No rhonchi, No wheeze, No rales. Cardiovascular: Regular rate, Regular Rhythm, Normal S1, Normal S2, PMI Normal. Abdomen: Bowel Sounds Present, Soft, Non Tender, Non-Distended, No Hepato- splenomegaly. Extremities: No clubbing, No cyanosis, No edema Skin: No rashes, No breakdown Neurological: Cranial nerves are intact. Neuro grossly intact Vital Signs are stable.
--- NOTE | 2019-04-15 18:32 | CON.PCM_ITS ---
Problem List (1) Angina pectoris Status: Acute (2) CAD (coronary artery disease) Status: Chronic Qualifiers: Coronary Disease-Associated Artery/Lesion type: unspecified vessel or lesion type [place] vs. transplanted heart: unspecified whether [place] or transplanted heart Associated angina: angina presence unspecified Qualified Code(s): I25.10 - Atherosclerotic heart disease of [place] coronary artery without angina pectoris (3) Presence of stent in coronary artery Status: Chronic Comment: Previous LEANDER to proximal to mid LAD 3.0 X 32 mm Taxus 02/23/[address] Daquan Meyer, [facility];LEANDER to mid RCA 2.5 X 24 mm Synergy 01/19/[address] Patel,[facility]; PTCA/LEANDER of the mid LCX 03/10/[address] Torrez [facility]; Successful PTCA/LEANDER mid RCA with a 2.0 x 12balloon, followed by a 2.0 x 10 Angiosculpt, followed by a 2.5 x 16 Promus Synergy, post dilated with a 2.5 x 8 NC Balloon; 85%-->0%, no dissection 07/22/2018; PTCA/LEANDER to mid RCA instent restenosis 11/13/18 (4) Valvular heart disease Status: Chronic (5) Hyperlipidemia Status: Chronic Qualifiers: Hyperlipidemia type: pure hypercholesterolemia Qualified Code(s): E78.00 - Pure hypercholesterolemia, unspecified; E78.0 - Pure hypercholesterolemia (6) HTN (hypertension), benign Status: Chronic Reason for Consult Date of Consultation: 04/15/19 History of Present Illness: The patient is a 83 year old white female with a past medical history of underlying CAD, status post PCI, valvular heart disease, hyperlipidemia, and hypertension who presents for concerns of angina pectoris and a follow-up pharmacologic stress nuclear imaging study considered abnormal for an area of stress-induced myocardial ischemia. She states that yesterday and earlier this day she had symptoms similar to what she has had in the past with respect to discomfort in her left upper chest, left neck, left jaw, and left upper extr emity. When she has had the symptoms in the past she has been evaluated and found to have progression of her CAD requiring recurrent PCI. She did take nitroglycerin sublingual at home. She presented to the emergency department for further evaluation where she was treated with additional aspirin therapy and nitrate therapy. She subsequently gained relief of her symptoms. She was placed in the PCU for further evaluation. Her troponin I levels have remained negative. Her ECG demonstrated sinus bradycardia with no acute changes. She denied any acute orthopnea or PND or worsening peripheral pitting edema. There was no near syncope or syncope. Does note that some of her changes/symptoms appear to improve somewhat when she has been sitting upright. Her systolic blood pressure was noted to be markedly elevated upon arrival at the hospital at 208 mmHg. Her blood pressures have been followed and have improved. She states at home she discontinued her amlodipine therapy because she felt tired and weak and noted lower extremity peripheral pitting edema while on her amlodipine therapy. She has undergone further evaluation with a pharmacologic stress nuclear imaging study. She had chest discomfort during her study, recovery ECG with ST segment changes, and a myocardial perfusion study suggesting an area compatible stress- induced myocardial ischemia in portions of the basal/mid inferior septal and inferior segments. She has been referred for further cardiovascular evaluation with diagnostic cardiac catheterization. She does have an IVP allergy. [] Past Medical History Allergies/Adverse Reactions: Allergies Iodinated Contrast Media [Iodinated Contrast- Oral and IV Dye] Allergy (Intermediate, Verified 04/07/19 14:51) Rash ramipril [From Altace] Adverse Reaction (Severe, Verified 04/07/19 14:51) cough Home Medications: Ambulatory Orders Medication Instructions Recorded levothyroxine 88 mcg tablet 88 mcg PO DAILY 90 Days 06/10/17 Ascorbic Acid [Vitamin C] 500 mg PO DAILY 01/16/18 Folic Acid 0.4 mg PO DAILY@0800 01/16/18 Ubidecarenone [Co Q-10] 100 mg PO DAILY 03/09/18 atorvastatin 40 mg tablet 40 mg PO DAILY 90 Days #90 tab 08/07/18 Aspirin E.C. [Ecotrin] 81 mg PO DAILY@0800 11/12/18 Calcium Citrate 200 mg PO DAILY 11/12/18 Calcium Citrate 400 mg PO DAILY@1200 11/12/18 Losartan Potassium [Cozaar] 50 mg PO BID 11/12/18 Metoprolol(XL)Succ [Toprol Xl 50 mg PO DAILY 11/12/18 (Beta Tg)] Multivitamins,Therapeutic 1 tab PO DAILY 11/12/18 [Multivitamin] [place]-3 Fatty Acids/Fish Oil [Fish 1 cap PO BID 11/12/18 Oil 1,000 mg Capsule] Potassium Chloride [K-Tab ER] 10 meq PO DAILY 11/12/18 Triamterene 37.5MG/Hctz 25MG 1 cap PO DAILY 11/12/18 [Dyazide (G)] nitroglycerin 0.4 mg sublingual 0.4 mg SUBLINGUAL Q5-15M PRN 10 12/01/18 tablet Days #25 tab clopidogrel 75 mg tablet 75 mg PO DAILY #90 tab 02/12/19 Past Medical History (Chronic Problems): Chronic Problems (Last Reviewed 04/07/19 @ 15:23 by ERYN White) ABDIAS (obstructive sleep apnea) (Chronic) Initial AHI 35.5 Nonrheumatic mitral (valve) insufficiency (Chronic) Nonrheumatic aortic (valve) insufficiency (Chronic) Nonrheumatic aortic (valve) stenosis (Chronic) Carotid artery disease (Chronic) Atherosclerotic heart disease of [place] coronary artery without angina pectoris (Chronic) Previous LEANDER to proximal to mid LAD 3.0 X 32 mm Taxus 02/23/[address] Daquan Meyer, [facility];LEANDER to mid RCA 2.5 X 24 mm [facility] [facility]; PTCA/LEANDER of the mid LCX 03/10/[address] Torrez [facility]; Successful PTCA/LEANDER mid RCA with a 2.0 x 12balloon, followed by a 2.0 x 10 Angiosculpt, followed by a 2.5 x 16 Promus Synergy, post dilated with a 2.5 x 8 NC Balloon; 85%-->0%, no dissection 07/22/2018; Successful LEANDER Mid RCA ISR using Resolute Integrity 2.5x12 mm 11/12/2018 Presence of stent in coronary artery (Chronic ~11/13/18) Previous LEANDER to proximal to mid LAD 3.0 X 32 mm Taxus 02/23/[address] Daquan Meyer, [facility];LEANDER to mid RCA 2.5 X 24 mm [facility] [facility]; PTCA/LEANDER of the mid LCX 03/10/[address] Torerz [facility]; Successful PTCA/LEANDER mid RCA with a 2.0 x 12balloon, followed by a 2.0 x 10 Angiosculpt, followed by a 2.5 x 16 Promus Synergy, post dilated with a 2.5 x 8 NC Balloon; 85%-->0%, no dissection 07/22/2018; PTCA/LEANDER to mid RCA instent restenosis 11/13/18 CAD (coronary artery disease) (Chronic) Valvular heart disease (Chronic) Hypothyroidism (Chronic) Hyperlipidemia (Chronic) HTN (hypertension), benign (Chronic) S/P coronary artery stent placement (Chronic ~2017) LEANDER to mid RCA 2.5 X 24 mm [facility] [facility]; PTCA/LEANDER of the mid LCX 03/10/[address] Torrez [facility] Successful PTCA/LEANDER mid RCA with a 2.0 x 12balloon, followed by a 2.0 x 10 Angiosculpt, followed by a 2.5 x 16 Promus Synergy, post dilated with a 2.5 x 8 NC Balloon; 85%-->0%, no dissection on 07/22/2018. Surgical History: angioplasty, cholecystectomy, - - Cardiac stents in 2003, one stent in January 2018, one stent in March 2018, one stent in July 2018 Psychiatric History: No pertinent psych hx OUTSIDE COLLECTOR History: No pertinent OUTSIDE COLLECTOR history - *Family History Maternal Family History: Family History (Last Reviewed 04/07/19 @ 15:23 by ERYN White) Mother Myocardial infarction Father Colon cancer History Items: Heart Disease - [facility] Paternal Family History: Family History (Last Reviewed 04/07/19 @ 15:23 by ERYN White) Mother Myocardial infarction Father Colon cancer History Items: Cancer - colon Lives: Spouse/ Significant Other Smoking Status: Never smoker Tobacco Use: Non-smoker Alcohol: None Drugs: None Review of Systems - Review of Systems General: Denies: Fever, Night Sweats, Fatigue Cardiovascular: Reports: Chest Discomfort, Chest Discomfort at Rest. Denies: Shortness of Breath, Orthopnea, PND, Peripheral Edema, Palpitations, Lightheadedness, Dizziness, Near Syncope, Syncope Respiratory: Denies: Cough, Sputum Production, Hemoptysis Gastrointestinal: Denies: Hematemesis, Hematochezia, Melena Genitourinary: Denies: Dysuria, Hematuria Skin: Denies: Rash Subjectve: This is a awake and alert 83-year-old white female who appears to be resting comfortably at the moment in no acute distress. Objective: Vital Signs Temp Pulse Resp BP Pulse Ox 98.3 F 60 14 101/47 L 97 04/15/19 15:20 04/15/19 15:20 04/15/19 15:20 04/15/19 15:20 04/15/19 15:20 Oxygen Delivery Method Room Air Weight: 171 lb 15.369 oz Body Mass Index (BMI) 32.5 Intake and Output for Last 24 Hours 04/13/19 04/14/19 04/15/19 23:59 23:59 23:59 Intake Total 1407.92 / 1407.92 Balance 1407.92 / 1407.92 General: Awake, Alert, Oriented x 3, Cooperative, No Acute Distress HEENT: Atraumatic, Normocephalic, PERRL, EOMI, Sclera Non Icteric Oral: Moist Mucosa Neck: Supple, Good ROM, No JVD Lungs: Clear to auscultation Cardiovascular: Regular Rhythm, Normal S1, Normal S2 Murmur Murmur: Grade 3/6, Harsh, Mid Systolic, LLSB, LVOT, Sternal Notch Vascular: No Carotid Bruits Abdomen: Bowel Sounds Present, Soft, Non Tender Extremities: No Cyanosis, No Clubbing, No edema Neurological: No Focal Motor or Sensory Deficit Psych/Mental Status: Appropriate 04/15/19 02:35: WBC 8.0, RBC 4.24, Hgb 12.7, Hct 38.5, MCV 90.8, MCH 30.0, MCHC 33.0, Plt Count 233, MPV 10.0, Immature Gran % (Auto) 0.200, Neut % (Auto) 62.4, Lymph % (Auto) 23.4, [place] % (Auto) 10.6 H, Eos % (Auto) 2.5, Baso % (Auto) 0.9, Absolute Neuts (auto) 5.0, Nucleated RBC % 0 04/15/19 02:35: APTT 26.9 04/15/19 02:35: Sodium 140, Potassium 3.9, Chloride 102, Carbon Dioxide 30.0, Anion Gap 8, BUN 27 H, Creatinine 1.14 H, Est GFR (MDRD) Af Amer 59 L, Est GFR (MDRD) Non-Af 49 L, BUN/Creatinine Ratio 23.7 H, Glucose 117 H, Calcium 9.6, Troponin I < 0.015 04/15/19 02:35: Magnesium 2.1, Triglycerides 219 H, Cholesterol 107, LDL Cholesterol 26, VLDL Cholesterol 44 H, HDL Cholesterol 37 L 04/15/19 05:25: Troponin I < 0.015 04/15/19 08:05: Troponin I < 0.015 Rhythm: Sinus rhythm EKG: Sinus bradycardia ECHO: 03-23-18 Left ventricle normal with an estimated LV of 65% Mild left atrial enlargement Mild to moderate mitral calcification Mild MR Mild to moderate TR Aortic valve sclerosis/mild aortic valve stenosis Mild AI Estimated RV systolic pressure 20 mmHg Decreased diastolic compliance Stress Test: Stress Test Report Date: 04-15-19 Procedure: Pharmacologic stress nuclear imaging study Indications: Chest pain; CAD; PCI Consent: Per the patient Procedure: The patient underwent pharmacologic (Regadenoson) evaluation with a peak heart rate of 86 beats per minute (61 %predicted maximal heart rate) and a peak blood pressure of 194/68 mmHg. The baseline ECG demonstrated normal sinus rhythm. The peak pharmacologic ECG demonstrated no obvious ECG changes, however, in recovery there was notation of approximately 0.5 to 1.[address] segment depression in leads II, III, aVF and approximately 0.[address] segment depression in leads V4 through V6 with gradual resolution towards baseline in recovery.. There were no cardiac dysrhythmias pretest, during pharmacologic infusion, or recovery. The patient noted chest discomfort during pharmacologic infusion and recovery with subsequent spontaneous resolution in recovery. The examination was discontinued secondary to completion of protocol. Impression: 1. Pharmacologic (Regadenoson) evaluation 2. Peak pharmacologic ECG with approximately 0.5 to 1.[address] segment depression in leads II, III, aVF, and approximately 0.[address] segment depression in leads V4 through V6 in recovery with subsequent gradual resolution towards baseline in recovery. 3. There were no cardiac dysrhythmias pretest, during pharmacologic infusion, or recovery. 4. Nuclear images pending Myocardial perfusion imaging study: Technique: The patient was injected with 12.0 millicuries of technetium 99m Cardiolite and subsequently rest SPECT Cardiolite nuclear imaging was obtained in the horizontal long, vertical long, and short axis views. The patient underwent pharmacologic (Regadenoson) evaluation with a peak heart rate of 86 beats per minute (61 % percent predicted maximal heart rate) and a peak blood pressure of 194/68 mmHg. The patient was injected with 36.0 millicuries of technetium 99m Cardiolite and subsequently stress SPECT Cardiolite nuclear imaging was obtained in the horizontal long, vertical long, and short axis views. A gated Cardiolite study at peak stress was obtained. Interpretation: Rest and stress SPECT Cardiolite nuclear imaging status post realignment, normalization, and attenuation correction demonstrate at rest the appearance of relative uniform tracer uptake. Status post stress there is a small area of diminished tracer uptake in the basal/mid inferior septal/inferior segments. There are similar type findings on the resting/stress polar map images. There is end systolic thickening and brightening. The gated Cardiolite study demonstrates myocardial thickening and inward wall motion. The reported LVEF is 75 %. Impression: 1. Rest and stress SPECT Cardiolite nuclear imaging demonstrate post stress a small area of diminished tracer/perfusion uptake in the basal/mid inferior septal/inferior segments concerning for an area of stress-induced myocardial ischemia. 2. The gated Cardiolite study reports an LVEF of 75 %. Cardiac Cath: 11-13-18 CORONARY ANGIOGRAPHY DOMINANCE: Co- Dominant LEFT HEART ASSESSMENT Left Ventricular Ejection Fraction: Not assessed LEFT MAIN: Angiographically normal LEFT ANTERIOR DESCENDING ARTERY: Mild luminal irregularities PROX LAD: Previously placed stent is patent MID LAD: Previously placed stent is patent CIRCUMFLEX ARTERY: Mild luminal irregularities PROX CIRC: 25 % Stenosis MID CIRC: Previously placed stent is patent RIGHT CORONARY ARTERY: Mild luminal irregularities PROX RCA: Previously placed stent is patent MID RCA: Previously placed stent has an instent 85 % restenosis PCI: 11-13-18 CONCLUSIONS Successful LEANDER Mid RCA ISR using Resolute Integrity 2.5x12 mm RECOMMENDATIONS ASA Indefinitley Plavix for at least 12 months CXR: Preliminary evaluation: No acute cardiopulmonary disease process appreciated: Please see official report Assessment/Plan 1. Angina pectoris The patient presents with chest discomfort concerning for angina pectoris. At the present time for rule out [facility] protocol is negative by cardiac enzyme and ECG. However her follow-up pharmacologic stress nuclear imaging study is abnormal. Based upon the patient's symptoms, her past history, and her current objective findings, she has been recommended for further evaluation with diagnostic cardiac catheterization and possible additional coronary revascularization therapy. The procedure risks were discussed with her. She was agreeable to this approach. If her evaluation is unremarkable for progression of CAD requiring additional revascularization therapy then consideration may have to be given as to her symptoms, especially with her concerning symptoms of some improvement when sitting upright, as potentially being gastrointestinal related and not cardiovascular related as she does not appear to have additional classic symptoms and/or objective findings suggesting of underlying acute pericarditis at this time. 2. CAD status post PCI The patient has had a history of CAD and has required multiple vessel PCI. She has presented with the aforementioned concerns. She has had the aforementioned findings. She will continue evaluation care as described above. 3. Valvular heart disease The patient has been evaluated in the past. She has not been found to have hemodynamically significant valvular heart disease thus far. She will continue her evaluation as described above. 4. Hyperlipidemia She will continue medical management. 5. Hypertension It is unclear whether her blood pressure being elevated was a triggering mechanism for her symptoms or was secondary to her symptoms. However, she will need continued follow-up of her blood pressure and further adjustment of her medication as tolerated. The above was discussed and reviewed with the patient, her spouse, and the [facility] staff. This note was generated using a voice recognition system and there may be incorrect words, spelling or punctuation that were not noted when reviewing the office note prior to saving.
[2019-04-15] MEDS: Famotidine 20 MG Tablet PO (21:50)
[2019-04-15] MEDS: DiphenhydrAMINE 25 MG Capsule 50 MG PO (21:50)
[2019-04-15] MEDS: Atorvastatin Calcium 40 MG Tablet PO (21:50)
[2019-04-15] MEDS: predniSONE 20 MG Tablet 60 MG PO (21:50)
[2019-04-16] VITALS (38 sets, daily range): BP systolic 129–173; BP diastolic 28–91; PULSE 55–73; RESP 12–22; TEMP 36.1–37.2; O2SAT 92–97
--- NOTE | 2019-04-16 00:03 | CPS ---
Pt. refused CPAP
[2019-04-16] MEDS: 0.9% Normal Saline 1,000 ML 75 ML IV (01:41)
[2019-04-16] MEDS: 0.9% Saline Lock 10 ML Syringe IV (01:42)
[2019-04-16] MEDS: Levothyroxine 88 MCG Tablet PO (05:09)
[2019-04-16] MEDS: DiphenhydrAMINE 25 MG Capsule 50 MG PO (05:09)
[2019-04-16] MEDS: predniSONE 20 MG Tablet 60 MG PO (05:10)
[2019-04-16] MEDS: Famotidine 20 MG Tablet PO (05:10)
[2019-04-16] MEDS: Losartan Potassium 50 MG Tablet PO ×2 (05:10→21:18)
[2019-04-16] MEDS: Metoprolol(XL)Succ 50 MG Tablet PO (05:10)
[2019-04-16] MEDS: Clopidogrel Bisulfate 75 MG Tablet PO (05:14)
[2019-04-16] MEDS: Aspirin E.C. 81 MG Tablet PO (05:15)
[2019-04-16 06:53] LABS: Anion Gap 9 (5-15); BUN 21 mg/dL (7-18); BUN/Creat Ratio 18.3 RATIO (10-20); Calcium,Total 9.1 mg/dL (8.5-10.1); Chloride 105 mmol/L (98-107); Creatinine, Serum 1.15 mg/dL (0.55-1.02); EST Glomerular Filtration Rate 48 mL/min (>60); Est Glom Filt Rate - Afr Amer 58 mL/min (>60); Estimated Creatinine Clearance 28.95 ml/min; Glucose 169 mg/dL (74-106); Potassium 3.8 mmol/L (3.5-5.1); Sodium Level 139 mmol/L (136-145)
--- NOTE | 2019-04-16 07:38 | NURSING ---
0715- pt being taken down to heart cath by Mariya JACOBS
[2019-04-16] MEDS: Nitroglycerin Infusion 250 ML 3 MG CONT INF (08:06)
--- NOTE | 2019-04-16 09:03 | NURSING ---
report called to ICU
--- NOTE | 2019-04-16 09:49 | CRPHASE1_ITS ---
Patient Communication Former Patient:: Phase II PHII Cardiac Rehab Discussed with Patient:: Yes Guide to Cardiac Rehab Given to Patient:: Yes Cardiac Rehab Facility Choice List Given to Patient:: Yes Choice Program [facility] CR PHII:: Communication Given to CR, Refer to [facility] Choice Program Other:: Communication Given to CR, With permission faxed order and referral information Business Analytics Specialist:: Reza Del Valle Refer Phase II Cardiac Rehab:: Yes Sessions:: 36 sessions - 3 days/wk, 12 weeks - NOT SEEN - PREVIOUS PT IN CR (SEVERAL TIMES) Risk Factors/Lifestyle Family History: Family History (Last Reviewed 04/07/19 @ 15:23 by ERYN White) Mother Myocardial infarction Father Colon cancer Laboratory Values: Cardiac Rehab Phase I Labs Triglycerides 219 mg/dL (-199) H 04/15/19 02:35 Cholesterol 107 mg/dL (200) 04/15/19 02:35 LDL Cholesterol 26 mg/dL (0-130) 04/15/19 02:35 HDL Cholesterol 37 mg/dL (40-) L 04/15/19 02:35 Cardiac Rehabilitation Info Cardiac Rehabilitation Program Information: Cardiac Rehabilitation is important for patients like you who are recovering from a heart problem. Cardiac rehabilitation programs are recognized as integral to the continued care of the patient with coronary heart disease. The cardiac rehabilitation program is designed to optimize a patient's physical, psychological, and social functioning. Health pediatric care coordinator work in cardiac rehabilitation programs and assist you with getting the treatments you need to get stronger and healthier - like exercise, healthy eating habits, and medications. Cardiac rehabilitation has been show to help people with heart problems live longer and have better life enjoyment than people who do not go to cardiac rehabilitation. Please contact the Cardiac Rehabilitation Program at [facility] at in two weeks if you have not heard from them.
--- NOTE | 2019-04-16 09:53 | CRPH1.INSTRU ---
General Education CAD and cardiac anatomy and function:: Not instructed Explanation of diagnoses and procedures:: Not instructed Sign/Symptoms of NM:: Not instructed Antiplatelet therapy: Not instructed Proper use of NTG-SL: Not instructed Emergency procedures and activation of EMS: Not instructed Compliance of all prescribed medications: Not instructed - NOT SEEN. PREVIOUS CR PATIENT (SEVERAL TIMES)
--- NOTE | 2019-04-16 09:55 | CL.I_ITS ---
Patient Name: PRECIOUS LEIGH Study Date: 04/16/2019 Performing: Felicity Del Valle MD Ht: 61 inches 155 cm : 1935 Wt: 172.2 lbs 78 kg Age: 83 Gender: female BSA: 1.77 PROCEDURE(S) PERFORMED [id number], SINGLE CORONARY ARTERY CLINICAL PROFILE AND CO-MORBIDITIES Indications: Worsening Angina Heart Failure: None Stress/Imaging Stress Test w/SPECT MPI: Yes Result: Positive Intermediate Risk Stress Test with S PECT MPI: Positive Intermediate Risk CAD Presentations: Unstable angina. CONCLUSIONS Successful PCI with PTCA to the ISR of RCA RECOMMENDATIONS ASA Indefinitley Plavix for at least 12 months Follow up with Dr. Madera DESCRIPTION OF PROCEDURE The patient arrived to the procedure lab. The risks and benefits of the procedure as well as a full d escription of our services here and current unavailability of surgical backup were fully explained to the patient and/or their significant other prior to the catheterization. The Timeout was completed, verifying the correct patient and procedure. The patient's procedural site was prepped and draped in the usual fashion. Local anesthetic was given subcutaneously to right radial region with Lidocaine 2% Using a modified Seldinger technique,arterial access was obtained via the right radial artery, a 6Fr sheath was inserted. Right Coronary Artery selective angiography was then performed in multiple view s using a 5 Fr. 4.0 Whitmore catheter. Left Coronary Artery selective angiography was performed in multi ple views using a 5 Fr. 4.0 Whitmore catheter. Left Ventriculography was performed in BECERRA projection usi ng a 5 Fr. Pigtail catheter. LV to AO pullback pressures were then recorded.The images were reviewed and options discussed. A decision was then made to proceed with an Intervention, IVUS o r other adjunct procedure. jr 4 Guide catheter was inserted and engaged into the RCA. bmw Guide wire was advanced to the RCA . emerge 2.5 x 12 Balloon catheter was advanced across lesion in the right coronary, mid. PTCA balloo n inflated at 14 atms for 18 secs. PTCA balloon inflated at 16 atms for 31 secs. PTCA balloon inflate d at 16 atms for 32 secs. Angiogram performed post balloon dilatation. nc emerge 2.75 x 12 Balloon ca theter was advanced across lesion in the right coronary, mid. nc PTCA balloon inflated at 20 atms for 30 secs. Angiogram performed post balloon dilatation. The arterial sheath was pulled and a TR Band was applied for hemostasis. 15 cc's of air INTERVENTION INFORMATION LESION SITE: RCA (Mid) Lesion Complexity: High/C, chronic total occlusion: No, lesion at bifurcation: Yes, thrombus present: No, lesion length: 10 mm, culprit lesion: Yes, Previously treated lesion: Yes, Timeframe of previous treatment: 1-5 months, Previously treated with a stent: Yes Stent Type: with LEANDER, In-stent Thrombosi s: No Pre Stenosis: 95 % Pre intervention LUIS flow: 3 PROCEDURE: Balloon Angioplasty Post Stenosis: 0 % Post intervention LUIS flow: 3 Lesion Devices: [place] .014 BMW [place] Straight 190cm Cardinal 6 Fr JR4 100cm Guide Catheter Willie Sci EMERGE MR 2.50x12 BALLOON Willie Sci NC EMERGE MR 2.75x12 BALLOON COMPLICATIONS No Complications PROCEDURE MEDICATIONS Versed 1 mg IV Fentanyl 50 mcg IV Oxygen: 2 L/min via nasal cannula Heparin 5000 unit(s) IV 04/16/2019 08:41:15 Nitro glycerin 25mg / 250ml D5W @ 10 mcg/min IV started 04/16/2019 08:06:00 Nitro glycerin 25mg / 250ml D5W @ 15 mcg/min (increased rate) 04/16/2019 08:21:52 Nitro glycerin 25mg / 250ml D5W @ 20 mcg/min (increased rate) 04/16/2019 08:30:19 Solu-medrol 125 mg IV 04/16/2019 07:30:47 SUMMARY OF HEMODYNAMIC DATA Time AIR REST ECG 07:23:15 AO 155/51 (93) SA 07:49:45 LV 223/-1, 20 07:57:19 LV 204/0, 19 07:57:25 LV 218/-3, 22 07:58:16 LV 195/0, 24 07:58:23 LVp 227/-1, 20 07:58:34 AOp 209/70 (129) 07:58:39 Signed By Felicity Del Valle MD On 04/16/2019 09:54:55 Felicity Del Valle MD
--- NOTE | 2019-04-16 10:00 | EKG12_ITS ---
Test Reason : AM EKG Blood Pressure : / mmHG Vent. Rate : 056 BPM Atrial Rate : 056 BPM P-R Int : 160 ms QRS Dur : 092 ms QT Int : 450 ms P-R-T Axes : 065 010 013 degrees QTc Int : 434 ms Sinus bradycardia Nonspecific ST-Segment Abnormality Abnormal ECG Confirmed by LEO WYNN, PORTIA ([id number]), visual effects editor JANETT MURPHY ([id number]) on 04/21/2019 11:25:51 AM Referred By: Teodora Rand Confirmed By:PORTIA BAILEY MD
--- NOTE | 2019-04-16 10:36 | CASEMGMT ---
RN CM Assessment Presentation: Chest pain, heart cath, stent Intro role of CM and purpose of RN CM assessment to patient and her . Demographics, PCP and Pharmacy verified. PCP: Dr. Boyd Casiano Specialists: Dr. Madera, cardiology; Dr. Membreno, pulmonology Preferred Pharmacy: [facility] Insurance: [facility] Prescription Benefit: yes. Pt is on Plavix. Pt states she has been on Brilinta in past, however it made her short of breath. LNOK: , Kedar Jean Living Arrangements: Lives independently with her . Denies any care needs, states she is independent with ADL's. Difficulty getting up from sitting positions, but no hx of falls. Transportation: drives, drives. DME: Cpap; has walker, wheelchair- states does not use ambulatory devices. HHC: none Patient DC goals: Home DC PLAN: anticipate home on discharge.
[2019-04-16] MEDS: 0.9% Normal Saline 1,000 ML 60 ML IV (10:41)
--- NOTE | 2019-04-16 12:50 | PN_ITS ---
<Fernando John - Last Filed: 04/16/19 12:50> Patient Problems: Active and Suspected Problems (Last Updated 04/15/19 @ 14:10 by Abebe Sullivan MD) Angina pectoris (Acute) Chest pain (Acute) Subjective: Patient seen and examined after heart catheterization. Patient underwent balloon angioplasty to the right coronary artery. Currently she is resting in bed no chest pain, no palpitations, lightheaded or dizziness, no nauseousness, no shortness of breath, no extremity edema. - Physical Exam Vitals/I&O's: Vital Signs Temp Pulse Resp BP Pulse Ox 98.7 F 61 18 156/45 H 97 04/16/19 05:05 04/16/19 05:10 04/16/19 05:05 04/16/19 10:30 04/16/19 05:05 Oxygen Delivery Method Room Air Weight: 171 lb 15.369 oz Body Mass Index (BMI) 32.5 Intake and Output for Last 24 Hours 04/14/19 04/15/19 04/16/19 23:59 23:59 23:59 Intake Total 1647.92 / 1647.92 1342.7 / 1342.7 Balance 1647.92 / 1647.92 1342.7 / 1342.7 General: Alert, Oriented x3, Cooperative HEENT: Atraumatic, PERRLA, EOMI, Normocephalic Neck: Supple, No JVD, Negative Carotid Bruits Lungs: Clear to auscultation, Normal air movement Cardiovascular: Regular rate, Murmur Abdomen: Bowel Sounds Present, Soft, Non Tender Extremities: No edema, Capillary Refill Less than 3 Seconds Skin: No rashes, No breakdown Musculoskeletal: No Tenderness to Palpation of Joints or Extremities Neurological: Cranial nerves II-XII grossly intact Psych/Mental Status: Normal Affect, Appropriate, Alert and oriented to time, place, person, mood and affect Laboratory Results 04/16/19 05:40: Sodium 139, Potassium 3.8, Chloride 105, Carbon Dioxide 25.0, Anion Gap 9, BUN 21 H, Creatinine 1.15 H, Estim Creat Clear Calc 28.95, Est GFR (MDRD) Af Amer 58 L, Est GFR (MDRD) Non-Af 48 L, BUN/Creatinine Ratio 18.3, Glucose 169 H, Calcium 9.1 Current Medications Acetaminophen (Tylenol) 650 mg PO Q6H PRN PRN PRN Reason: Non-cardiac pain () Al Hydroxide/Mg Hydroxide (Mylanta Ii) 15 - 30 ml PO Q4H PRN PRN PRN Reason: INDIGESTION Albuterol Sulfate (Ventolin Aerosols) 2.5 mg INHALATION Q2H PRN PRN PRN Reason: dyspnea, wheezing Aspirin (Ecotrin) 81 mg PO DAILY@0800 [facility] Last Admin: 04/16/19 05:15 Dose: 81 mg Documented by: Atorvastatin Calcium (Lipitor) 40 mg PO DAILY@2200 [facility] Last Admin: 04/15/19 21:50 Dose: 40 mg Documented by: Atropine Sulfate () 0.5 mg IV UD PRN PRN Reason: HR <50 bpm Clopidogrel Bisulfate (Plavix) 75 mg PO DAILY [facility] Last Admin: 04/16/19 05:14 Dose: 75 mg Documented by: Dextrose (D50w Syringe) 0 gm IV X1 PRN; Protocol PRN Reason: Hypoglycemia Enoxaparin Sodium (Lovenox) 30 mg SC DAILY@1000 [facility] Last Admin: 04/16/19 08:37 Dose: Not Given Documented by: Glucagon () 1 mg IM .X1 PRN PRN Reason: Hypoglycemia Heparin Sodium (Beef Lung) (Heparin 500 Unit/5 Ml (100/Ml)) 500 unit IV UD PRN PRN Reason: HEPARIN FLUSH Hydralazine HCl (Apresoline Iv) 10 mg IV Q4H PRN PRN PRN Reason: SBP > 160 Nitroglycerin/Dextrose () 250 mls @ 3 mls/hr CONT INF .[id number] [facility]; Protocol Last Titration: 04/16/19 10:30 Dose: 10 mcg/min, 6 mls/hr Documented by: Sodium Chloride () 1,000 mls @ 60 mls/hr IV .[id number] [facility] Stop: 04/16/19 15:29 Last Admin: 04/16/19 10:41 Dose: 60 mls/hr Documented by: Labetalol HCl (Trandate) 5 mg IV X1 PRN PRN Reason: SBP > 160 when pulling sheath Stop: 04/18/19 09:29 Levothyroxine Sodium (Synthroid) 88 mcg PO DAILY@0600 [facility] Last Admin: 04/16/19 05:09 Dose: 88 mcg Documented by: Losartan Potassium (Cozaar) 50 mg PO BID [facility] Last Admin: 04/16/19 05:10 Dose: 50 mg Documented by: Magnesium Hydroxide (Milk Of Magnesia) 30 ml PO DAILY PRN PRN Reason: Constipation Metoprolol Succinate (Toprol Xl (Beta Tg)) 50 mg PO DAILY [facility] Last Admin: 04/16/19 05:10 Dose: 50 mg Documented by: Morphine Sulfate () 1 - 2 mg IV Q4H PRN PRN PRN Reason: Pain Score 1-10/10 Nitroglycerin (Nitrostat) 0.4 mg SUBLINGUAL Q5M PRN PRN Reason: CARDIAC/CHEST PAIN Ondansetron HCl (Zofran) 4 mg IV Q8H PRN PRN PRN Reason: NAUSEA/VOMITING Potassium Chloride (K-Dur) 10 meq PO DAILYCM [facility] Last Admin: 04/15/19 11:44 Dose: 10 meq Documented by: Sodium Chloride () 10 - 40 ml IV UD PRN PRN Reason: SALINE FLUSH Last Admin: 04/16/19 01:42 Dose: 10 ml Documented by: Sodium Chloride () 500 ml IV BOLUS PRN PRN Reason: VASO-VAGAL PROTOCOL Triamterene/HCTZ (Dyazide (G)) 1 cap PO DAILY [facility] Last Admin: 04/15/19 11:44 Dose: 1 cap Documented by: Medical Necessity - Tobacco Use Smoking Status: Never smoker Tobacco Use: Non-smoker Assessment/Plan All Active Problems (Last Updated 04/15/19 @ 14:10 by Abebe Sullivan MD) Angina pectoris (Acute) Chest pain (Acute) Anginal equivalent (Acute) 1. Chest pain - abnormal. c/w prior episodes of cp requiring stenting. Hx CAD with 7 stents. Cardiology aware. Cath in AM. Troponin negative x 3. FLP. done. Pt was already on asa/statin/plavix/losartan/dyazide/toprol. CXR negative. 2. HTN - mildly elevated 3. Hypothyroidism - continue synthroid 4. 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 5. Obesity - dairy chemist consult. 6. CKDIII - will need to monitor closely with heart cath DC planning: s/p cardiac intervention, monitor overnight This patient was seen by Fernando John PA-C under the supervision of Dr. Sullivan. <Abebe Sullivan E - Last Filed: 04/16/19 13:20> - Physical Exam Vitals/I&O's: Vital Signs Temp Pulse Resp BP Pulse Ox 98.7 F 61 18 156/45 H 97 04/16/19 05:05 04/16/19 05:10 04/16/19 05:05 04/16/19 10:30 04/16/19 05:05 Oxygen Delivery Method Room Air Weight: 171 lb 15.369 oz Body Mass Index (BMI) 32.5 Intake and Output for Last 24 Hours 04/14/19 04/15/19 04/16/19 23:59 23:59 23:59 Intake Total 1647.92 / 1647.92 1342.7 / 1342.7 Balance 1647.92 / 1647.92 1342.7 / 1342.7 Laboratory Results 04/16/19 05:40: Sodium 139, Potassium 3.8, Chloride 105, Carbon Dioxide 25.0, Anion Gap 9, BUN 21 H, Creatinine 1.15 H, Estim Creat Clear Calc 28.95, Est GFR (MDRD) Af Amer 58 L, Est GFR (MDRD) Non-Af 48 L, BUN/Creatinine Ratio 18.3, Glucose 169 H, Calcium 9.1 Current Medications Acetaminophen (Tylenol) 650 mg PO Q6H PRN PRN PRN Reason: Non-cardiac pain (-03/25) Al Hydroxide/Mg Hydroxide (Mylanta Ii) 15 - 30 ml PO Q4H PRN PRN PRN Reason: INDIGESTION Albuterol Sulfate (Ventolin Aerosols) 2.5 mg INHALATION Q2H PRN PRN PRN Reason: dyspnea, wheezing Aspirin (Ecotrin) 81 mg PO DAILY@0800 [facility] Last Admin: 04/16/19 05:15 Dose: 81 mg Documented by: Atorvastatin Calcium (Lipitor) 40 mg PO DAILY@2200 [facility] Last Admin: 04/15/19 21:50 Dose: 40 mg Documented by: Atropine Sulfate () 0.5 mg IV UD PRN PRN Reason: HR <50 bpm Clopidogrel Bisulfate (Plavix) 75 mg PO DAILY [facility] Last Admin: 04/16/19 05:14 Dose: 75 mg Documented by: Dextrose (D50w Syringe) 0 gm IV X1 PRN; Protocol PRN Reason: Hypoglycemia Enoxaparin Sodium (Lovenox) 30 mg SC DAILY@1000 [facility] Last Admin: 04/16/19 08:37 Dose: Not Given Documented by: Glucagon () 1 mg IM .X1 PRN PRN Reason: Hypoglycemia Heparin Sodium (Beef Lung) (Heparin 500 Unit/5 Ml (100/Ml)) 500 unit IV UD PRN PRN Reason: HEPARIN FLUSH Hydralazine HCl (Apresoline Iv) 10 mg IV Q4H PRN PRN PRN Reason: SBP > 160 Nitroglycerin/Dextrose () 250 mls @ 3 mls/hr CONT INF .[id number] [facility]; Protocol Last Titration: 04/16/19 10:30 Dose: 10 mcg/min, 6 mls/hr Documented by: Sodium Chloride () 1,000 mls @ 60 mls/hr IV .[id number] [facility] Stop: 04/16/19 15:29 Last Admin: 04/16/19 10:41 Dose: 60 mls/hr Documented by: Labetalol HCl (Trandate) 5 mg IV X1 PRN PRN Reason: SBP > 160 when pulling sheath Stop: 04/18/19 09:29 Levothyroxine Sodium (Synthroid) 88 mcg PO DAILY@0600 [facility] Last Admin: 04/16/19 05:09 Dose: 88 mcg Documented by: Losartan Potassium (Cozaar) 50 mg PO BID [facility] Last Admin: 04/16/19 05:10 Dose: 50 mg Documented by: Magnesium Hydroxide (Milk Of Magnesia) 30 ml PO DAILY PRN PRN Reason: Constipation Metoprolol Succinate (Toprol Xl (Beta Tg)) 50 mg PO DAILY [facility] Last Admin: 04/16/19 05:10 Dose: 50 mg Documented by: Morphine Sulfate () 1 - 2 mg IV Q4H PRN PRN PRN Reason: Pain Score 1-10/10 Nitroglycerin (Nitrostat) 0.4 mg SUBLINGUAL Q5M PRN PRN Reason: CARDIAC/CHEST PAIN Ondansetron HCl (Zofran) 4 mg IV Q8H PRN PRN PRN Reason: NAUSEA/VOMITING Potassium Chloride (K-Dur) [facility] Last Admin: 04/15/19 11:44 Dose: 10 meq Documented by: Sodium Chloride () 10 - 40 ml IV UD PRN PRN Reason: SALINE FLUSH Last Admin: 04/16/19 01:42 Dose: 10 ml Documented by: Sodium Chloride () 500 ml IV BOLUS PRN PRN Reason: VASO-VAGAL PROTOCOL Triamterene/HCTZ (Dyazide (G)) 1 cap PO DAILY [facility] Last Admin: 04/15/19 11:44 Dose: 1 cap Documented by: Assessment/Plan Hospitalist note: I am seeing this patient in conjunction with Fernando John. I independently seen and examined the patient. Progress note above and laboratory data reviewed and I agree with the treatment plan. Today, patient went for cardiac catheterization with balloon angioplasty of the RCA. Afterwards, she denies any more chest pain, denies shortness of breath. She was started on IV nitroglycerin drip because of elevated blood pressure. Other vital signs are stable. - Physical Exam General: Alert, Oriented x3, Cooperative, No apparent distress. HEENT: Atraumatic, PERRLA, EOMI. Neck: Supple, No JVD, Negative Carotid Bruits, Trachea Midline, Thyroid Normal. Lungs: Diminished breath sounds bilateral, otherwise clear, No rhonchi, No wheeze, No rales. Cardiovascular: Regular rate, Regular Rhythm, Normal S1, Normal S2, PMI Normal. Abdomen: Bowel Sounds Present, Soft, Non Tender, Non-Distended, No Hepato- splenomegaly. Extremities: No clubbing, No cyanosis, No edema Skin: No rashes, No breakdown Neurological: Cranial nerves are intact. Neuro grossly intact Vital Signs are stable. Assessment and plan: #1 chest pain: With abnormal stress test. EKG revealed no acute ischemic changes. Troponin was negative x3. Today, patient underwent cardiac catheterization with balloon angioplasty of the RCA. After heart cath, she has no more chest pain. She is on aspirin, Plavix, statins, losartan and metoprolol. Cardiology on the case. #2 uncontrolled hypertension: On admission, blood pressure was high up to 200s systolic. During the heart cath, blood pressure was also elevated and she was started on IV medication drip. Currently, pressure is down to 150 systolic, remained on IV nitroglycerin drip. Also, she is on losartan and metoprolol and Dyazide. #3 other chronic medical problems: Stable, continue current medications as above. This note was generated with Dragon dictation software. It may contain incorrect words, spelling, and punctuation that were not noted in checking the note before signing. Code Visit OBSV E&M: 73982 Subsequent observation care L2
--- NOTE | 2019-04-16 13:48 | CL.D_ITS ---
Patient Name: PRECIOUS LEIGH Study Date: 04/16/2019 Performing: Luis Alberto Madera MD Ht: 61.02 inches 155 cm : 1935 Wt: 171.96 lbs 78 kg Age: 83 Gender: female BSA: 1.77 PROCEDURE(S) PERFORMED [id number]/[id number]/LV [id number], SINGLE CORONARY ARTERY CLINICAL PROFILE AND INDICATIONS Indications: Worsening Angina, Worsening Angina, Suspected CAD Heart Failure: None Stress/Imaging Stress Test w/SPECT MPI: Yes Result: Positive Intermediate RiskStress Test with SP ECT MPI: Positive Intermediate Risk Angina Classification Anginal Classification w/in 2 Weeks: CCS IV CAD Presentations: Unstable angina. Unstable angina. 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 The risks and benefits of the procedure as well as a full d escription of our services here and current unavailability of surgical backup were fully explained to the patient and/or their significant other prior to the catheterization. The Timeout was completed, verifying the correct patient and procedure. The patient's procedural site was prepped and draped in the usual fashion. Local anesthetic was given subcutaneously to right radial region with Lidocaine 2% . Using a modified Seldinger technique, arterial access was obtained via the right radial artery, a 6 Fr sheath was inserted. Right Coronary Artery selective angiography was then performed in multiple v iews using a 5 Fr. 4.0 [place] catheter. Left Coronary Artery selective angiography was performed in mu ltiple views using a 5 Fr. 4.0 [place] catheter. Left Ventriculography was performed in BECERRA projection using a 5 Fr. Pigtail catheter. LV to AO pullback pressures were then recorded.The arterial sheath was pulled and a TR Band was applied for hemostasis. 15 cc's of air CORONARY ANGIOGRAPHY DOMINANCE: Right Dominant LEFT HEART ASSESSMENT Left Ventricular Ejection Fraction: by LV Gram 65 % Normal LV wall motion Elevated Left Ventricular End Diastolic Pressure LVEDP: 19 mmHg LEFT MAIN: Mild luminal irregularities LEFT ANTERIOR DESCENDING ARTERY: PROX LAD: Previously placed stent is patent MID LAD: Previously placed stent is patent, Mild luminal irregularities CIRCUMFLEX ARTERY: PROX CIRC: Mild calcification, eccentric: hazy: 25 % Stenosis MID CIRC: Previously placed stent is patent RIGHT CORONARY ARTERY: PROX RCA: Previously placed stent is patent with mild luminal irregularities MID RCA: Previously placed stent has an instent 95 % restenosis DISTAL RCA: Mild luminal irregularities VALVE FINDINGS: Mitral Valve Insufficiency - Grade 1 (catheter / PVC induced) AORTIC ROOT: Angiographically normal COMPLICATIONS No Complications PROCEDURE MEDICATIONS Versed 1 mg IV Fentanyl 50 mcg IV Oxygen: 2 L/min via nasal cannula Heparin 5000 unit(s) IV 04/16/2019 08:41:15 Nitro glycerin 25mg / 250ml D5W @ 10 mcg/min IV started 04/16/2019 08:06:00 Nitro glycerin 25mg / 250ml D5W @ 15 mcg/min (increased rate) 04/16/2019 08:21:52 Nitro glycerin 25mg / 250ml D5W @ 20 mcg/min (increased rate) 04/16/2019 08:30:19 Solu-medrol 125 mg IV 04/16/2019 07:30:47 SUMMARY OF HEMODYNAMIC DATA Time AIR REST ECG 07:23:15 AO 155/51 (93) SA 07:49:45 LV 223/-1, 20 07:57:19 LV 204/0, 19 07:57:25 LV 218/-3, 22 07:58:16 LV 195/0, 24 07:58:23 LVp 227/-1, 20 07:58:34 AOp 209/70 (129) 07:58:39 Signed By Luis Alberto Madera MD On 04/16/2019 13:47:52 Luis Alberto Madera MD
[2019-04-16] MEDS: Triamterene 37.5MG/Hctz 25MG Capsule 1 CAP PO (14:14)
[2019-04-16] MEDS: Carvedilol 12.5 MG Tablet PO ×2 (15:03→21:18)
--- NOTE | 2019-04-16 17:36 | CPS ---
Patient states she does have a home PAP unit but only wears it approximately 4 hours per night. Patients refusing hospital bipap and does not want to have someone bring her own unit in while in hospital.
--- NOTE | 2019-04-16 19:18 | PN.CARD_ITS ---
Subjectve: The patient underwent diagnostic cardiac catheterization earlier this day. She was found to have RCA in-stent restenosis. She underwent repeat RCA PTCA-no stent. Upon follow-up evaluation she stated she felt better. She no longer had any of her ongoing chest discomfort. Objective: Vital Signs Temp Pulse Resp BP Pulse Ox 97.0 F L 64 18 151/35 H 97 04/16/19 12:30 04/16/19 18:00 04/16/19 18:00 04/16/19 18:00 04/16/19 18:00 Oxygen Delivery Method Room Air Weight: 171 lb 15.369 oz Body Mass Index (BMI) 32.5 Intake and Output for Last 24 Hours 04/14/19 04/15/19 04/16/19 23:59 23:59 23:59 Intake Total 1647.92 / 1647.92 2698.75 / 2698.75 Output Total 600 / 600 Balance 1647.92 / 1647.92 2098.75 / 2098.75 General: Awake, Alert, Oriented x 3, Cooperative, No Acute Distress HEENT: Atraumatic, Normocephalic, PERRL, EOMI, Sclera Non Icteric Oral: Moist Mucosa Neck: Supple, Good ROM, No JVD Lungs: Clear to auscultation Cardiovascular: Regular Rhythm, Normal S1, Normal S2 Murmur Murmur: Grade 3/6, Harsh, Mid Systolic, LLSB, LVOT, Sternal Notch Vascular: Normal Radial Pulses Abdomen: Bowel Sounds Present, Soft, Non Tender Extremities: No edema Neurological: No Focal Motor or Sensory Deficit Psych/Mental Status: Appropriate 04/16/19 05:40: Sodium 139, Potassium 3.8, Chloride 105, Carbon Dioxide 25.0, Anion Gap 9, BUN 21 H, Creatinine 1.15 H, Est GFR (MDRD) Af Amer 58 L, Est GFR (MDRD) Non-Af 48 L, BUN/Creatinine Ratio 18.3, Glucose 169 H, Calcium 9.1 Rhythm: Sinus rhythm Medical Necessity - Tobacco Use Smoking Status: Never smoker Tobacco Use: Non-smoker Assessment/Plan 1. Angina pectoris The patient feels better now that she is undergone repeat RCA PTCA. At the present time she will need to continue medical management. This will include agents such as her aspirin, Plavix, nitrates, beta-blockers, afterload reducing agents, and lipid-lowering agents. Also, it may not be unreasonable to consider her for additional medical therapy with anticoagulant therapy such as rivaroxaban/Xarelto at 2.5 mg p.o. twice daily when she has recovered from her cardiac catheterization/PCI procedure. 2. CAD status post PCI The patient has had a history of CAD and has required multiple vessel PCI. She will continue evaluation and care as noted above. 3. Valvular heart disease The patient has been evaluated in the past. She has not been found to have hemodynamically significant valvular heart disease thus far. She will continue her evaluation as described above. 4. Hyperlipidemia She will continue medical management. 5. Hypertension Her blood pressure remains somewhat challenging to control. She will continue medical therapy with adjustment as needed. The above was discussed and reviewed with the patient, her spouse, and the [facility] staff. This note was generated using a voice recognition system and there may be incorrect words, spelling or punctuation that were not noted when reviewing the office note prior to saving.
[2019-04-16] MEDS: Atorvastatin Calcium 40 MG Tablet PO (21:18)
[2019-04-17] VITALS (16 sets, daily range): BP systolic 126–160; BP diastolic 28–59; PULSE 51–95; RESP 12–22; TEMP 37.2; O2SAT 92–97
[2019-04-17 05:01] LABS: Hematocrit 36.7 % (37-47); Mean Corp Hgb Conc 32.7 g/dL (32-36); Mean Corpuscular Hgb 29.9 pg (27.0-32.0); Mean Corpuscular Volume 91.3 fL (81-99); Mean Platelet Vol. 10.6 fl (6.2-12.0); Platelet Count 228 K/mm3 (150-450); RBC Distribution Width CV 13.9 % (11.6-14.6); RBC Distribution Width SD 46.5 fl (35.1-43.9); Red Blood Count 4.02 M/mm3 (4.2-5.4); White Blood Count 17.5 K/mm3 (4.4-11.0)
[2019-04-17 05:23] LABS: ALB/GLOB Ratio 0.9 RATIO (0.9-2.4); AST(SGOT) 22 U/L (15-37); Alanine Aminotransfer ALT/SGPT 24 U/L (13-56); Albumin, Serum 3.2 g/dL (3.2-5.0); Alkaline Phosphatase 48 U/L (45-117); Anion Gap 9 (5-15); BUN 32 mg/dL (7-18); Calcium,Total 8.4 mg/dL (8.5-10.1); Chloride 106 mmol/L (98-107); Creatinine, Serum 1.28 mg/dL (0.55-1.02); EST Glomerular Filtration Rate 43 mL/min (>60); Est Glom Filt Rate - Afr Amer 51 mL/min (>60); Estimated Creatinine Clearance 26.01 ml/min; Globulin 3.7 g/dL (2.2-4.2); Glucose 130 mg/dL (74-106); Protein, Total 6.9 g/dL (6.4-8.2); Sodium Level 140 mmol/L (136-145)
[2019-04-17] MEDS: Levothyroxine 88 MCG Tablet PO (05:48)
[2019-04-17] MEDS: Carvedilol 12.5 MG Tablet PO (08:33)
[2019-04-17] MEDS: Triamterene 37.5MG/Hctz 25MG Capsule 1 CAP PO (08:34)
[2019-04-17] MEDS: Losartan Potassium 50 MG Tablet PO (08:35)
[2019-04-17] MEDS: Aspirin E.C. 81 MG Tablet PO (08:35)
[2019-04-17] MEDS: Clopidogrel Bisulfate 75 MG Tablet PO (08:35)
[2019-04-17] MEDS: Enoxaparin 30 MG/0.3 ML Syringe SC (08:38)
[2019-04-17] MEDS: Isosorbide Mononitrate 30 MG Tablet PO (08:42)
--- NOTE | 2019-04-17 10:52 | PCM.PN.CARD ---
Subjectve: The patient is awake and alert. She denies any ongoing chest discomfort or difficulty breathing. Objective: Vital Signs Temp Pulse Resp BP Pulse Ox 98.9 F 61 22 H 126/32 H 92 04/17/19 00:00 04/17/19 10:00 04/17/19 10:00 04/17/19 10:00 04/17/19 10:00 Oxygen Delivery Method Room Air Weight: 171 lb 15.369 oz Body Mass Index (BMI) 32.5 Intake and Output for Last 24 Hours 04/15/19 04/16/19 04/17/19 23:59 23:59 23:59 Intake Total 1647.92 / 1647.92 3178.75 / 3178.75 Output Total 600 / 600 0 / 0 Balance 1647.92 / 1647.92 2578.75 / 2578.75 General: Awake, Alert, Oriented x 3, Cooperative, No Acute Distress HEENT: Atraumatic, Normocephalic, EOMI, Sclera Non Icteric Oral: Moist Mucosa Neck: Supple, Good ROM, No JVD Lungs: Clear to auscultation Cardiovascular: Regular Rhythm, Normal S1, Normal S2 Murmur Murmur: Grade 3/6, Harsh, Mid Systolic, LLSB, LVOT, Sternal Notch Vascular: Normal Radial Pulses Abdomen: Bowel Sounds Present, Soft, Non Tender Extremities: No edema Neurological: No Focal Motor or Sensory Deficit Psych/Mental Status: Appropriate 04/17/19 04:30: WBC 17.5 H, RBC 4.02 L, Hgb 12.0, Hct 36.7 L, MCV 91.3, MCH 29.9, MCHC 32.7, Plt Count 228, MPV 10.6 04/17/19 04:30: Sodium 140, Potassium 4.0, Chloride 106, Carbon Dioxide 25.0, Anion Gap 9, BUN 32 H, Creatinine 1.28 H, Est GFR (MDRD) Af Amer 51 L, Est GFR (MDRD) Non-Af 43 L, BUN/Creatinine Ratio 25.0 H, Glucose 130 H, Calcium 8.4 L, Total Bilirubin 0.40 Rhythm: Sinus rhythm EKG: Sinus bradycardia; nonspecific ST segment abnormality Medical Necessity - Tobacco Use Smoking Status: Never smoker Tobacco Use: Non-smoker Assessment/Plan 1. Angina pectoris The patient feels better now that she is undergone repeat RCA PTCA. At the present time she will need to continue medical management. This will include agents such as her aspirin, Plavix, nitrates, beta-blockers, afterload reducing agents, and lipid-lowering agents. As her cardiac catheterization site appears stable she will be placed on additional medical therapy with rivaroxaban/Xarelto at 2.5 mg p.o. twice daily. 2. CAD status post PCI The patient has had a history of CAD and has required multiple vessel PCI. She will continue evaluation and care as noted above. 3. Valvular heart disease The patient has been evaluated in the past. She has not been found to have hemodynamically significant valvular heart disease thus far. She will continue her evaluation as described above. 4. Hyperlipidemia She will continue medical management. 5. Hypertension Her blood pressure remains somewhat challenging to control. She will continue medical therapy with adjustment as needed. The above was discussed and reviewed with the patient, her spouse, and Dr. Sullivan. This note was generated using a voice recognition system and there may be incorrect words, spelling or punctuation that were not noted when reviewing the office note prior to saving.
--- NOTE | 2019-04-17 11:42 | PCM.DC ---
- Discharge Diagnoses Current Active Problems: Current Active and Chronic Problems (Last Updated 04/16/19 @ 14:15 by Joi Ballard) Angina pectoris (Acute) Chest pain (Acute) CAD (coronary artery disease) (Chronic) You will use the following diet at home:: Cardiac Your food should be the consistency of: Regular Your liquids should be the consistency of: Regular/Thin Discharge Activity: Return to Normal Activity Allergies/Adverse Reactions: Allergies Iodinated Contrast Media [Iodinated Contrast- Oral and IV Dye] Allergy (Intermediate, Verified 04/07/19 14:51) Rash ramipril [From Altace] Adverse Reaction (Severe, Verified 04/07/19 14:51) cough Medications to take at Discharge levothyroxine 88 mcg tablet 88 mcg PO DAILY 90 Days 06/10/17 Ascorbic Acid [Vitamin C] 500 mg PO DAILY 01/16/18 Folic Acid 0.4 mg PO DAILY@0800 01/16/18 Ubidecarenone [Co Q-10] 100 mg PO DAILY 03/09/18 atorvastatin 40 mg tablet 40 mg PO DAILY 90 Days #90 tab 08/07/18 Aspirin E.C. [Ecotrin] 81 mg PO DAILY@0800 11/12/18 Calcium Citrate 200 mg PO DAILY 11/12/18 Calcium Citrate 400 mg PO DAILY@1200 11/12/18 Losartan Potassium [Cozaar] 50 mg PO BID 11/12/18 Multivitamins,Therapeutic [Multivitamin] 1 tab PO DAILY 11/12/18 [place]-3 Fatty Acids/Fish Oil [Fish Oil 1,000 mg Capsule] 1 cap PO BID 11/12/18 Potassium Chloride [K-Tab ER] 10 meq PO DAILY 11/12/18 Triamterene 37.5MG/Hctz 25MG [Dyazide (G)] 1 cap PO DAILY 11/12/18 nitroglycerin 0.4 mg sublingual tablet 0.4 mg SUBLINGUAL Q5-15M PRN 10 Days #25 tab 12/01/18 clopidogrel 75 mg tablet 75 mg PO DAILY #90 tab 02/12/19 Acetaminophen [Tylenol Tablet] 650 mg PO Q6H PRN PRN tablet 04/17/19 Carvedilol [Coreg (Beta Tg)] 12.5 mg PO BID #60 tab 04/17/19 Isosorbide Mononitrate [Imdur] 30 mg PO DAILY #30 tab 04/17/19 Rivaroxaban [Xarelto] 2.5 mg PO BIDCM #60 tab 04/17/19 The following prescriptions were given: Carvedilol [Coreg (Beta Tg)] 12.5 mg PO BID #60 tab Transmission Status: Pending to [facility] Isosorbide Mononitrate [Imdur] 30 mg PO DAILY #30 tab Transmission Status: Pending to [facility] Rivaroxaban [Xarelto] 2.5 mg PO BIDCM #60 tab Transmission Status: Pending to [facility] Orders to be completed after discharge: Phase II, Outpatient Cardiac Rehab Location: None Selected Primary Care Physician: Boyd Casiano MD [Primary Care Provider] - Please follow up with your Primary Care Physician in: 1-2 weeks Test Results: Test results from this visit will be discussed in further detail at your follow-up appointment, if applicable. Please Follow Up With: Luis Alberto Madera MD When: as directed Proposed Discharge Date: 04/17/19
--- NOTE | 2019-04-17 13:57 | DS.PCM_ITS ---
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 Daquan Meyer, [facility];LEANDER to mid RCA 2.5 X 24 mm Synergy 01/19/[address] Patel,[facility]; PTCA/LEANDER of the mid LCX 03/10/[address] Torrez [facility]; Successful PTCA/LEANDER mid RCA with a 2.0 x 12balloon, followed by a 2.0 x 10 Angiosculpt, followed by a 2.5 x 16 Promus Synergy, post dilated with a 2.5 x 8 NC Balloon; 85%-->0%, no dissection 07/22/2018; Successful LEANDER Mid RCA ISR using Resolute Integrity 2.5x12 mm 11/12/2018; PTCA/NO stent to mid RCA 04/16/19 Presence of stent in coronary artery (Chronic ~11/13/18) Previous LEANDER to proximal to mid LAD 3.0 X 32 mm Taxus 02/23/[address] Daquan Meyer, [facility];LEANDER to mid RCA 2.5 X 24 mm Synergy 01/19/[address] Patel,[facility]; PTCA/LEANDER of the mid LCX 03/10/[address] Torrez [facility]; Successful PTCA/LEANDER mid RCA with a 2.0 x 12balloon, followed by a 2.0 x 10 Angiosculpt, followed by a 2.5 x 16 Promus Synergy, post dilated with a 2.5 x 8 NC Balloon; 85%-->0%, no dissection 07/22/2018; PTCA/LEANDER to mid RCA instent restenosis 11/13/18; PTCA/NO stent to mid RCA 04/16/19 CAD (coronary artery disease) (Chronic) Valvular heart disease (Chronic) Hypothyroidism (Chronic) Hyperlipidemia (Chronic) HTN (hypertension), benign (Chronic) Hospital Course and Treatment Imaging Results: Diagnostics: RAD/Chest 1 View (Portable) IMPRESSION: Degenerative changes, as described above. No demonstrated acute cardiopulmonary process. Left heart cath: CONCLUSIONS Elevated Left Ventricular End Diastolic Pressure Normal LV size, wall motion,and systolic function LVEF: by LV gram 65 % [place] Multivessel CAD Mitral Valve Insufficiency Mild (catheter / PVC induced) RECOMMENDATIONS Risk factor modification Medical therapy Referred for immediate PCI Stress test: Interpretation: Rest and stress SPECT Cardiolite nuclear imaging status post realignment, normalization, and attenuation correction demonstrate at rest the appearance of relative uniform tracer uptake. Status post stress there is a small area of diminished tracer uptake in the basal/mid inferior septal/inferior segments. There are similar type findings on the resting/stress polar map images. There is end systolic thickening and brightening. The gated Cardiolite study demonstrates myocardial thickening and inward wall motion. The reported LVEF is 75 %. Impression: 1. Rest and stress SPECT Cardiolite nuclear imaging demonstrate post stress a small area of diminished tracer/perfusion uptake in the basal/mid inferior septal/inferior segments concerning for an area of stress-induced myocardial ischemia. 2. The gated Cardiolite study reports an LVEF of 75 %. Consultation: Cardiology - Ivon Madera Operations: None Procedures: Cardiac catheterization, Stress test Summary of Care Provided: Hospital Course: The patient is a 83 year old F with past medical history of severe CAD with 7 prior stents, otherwise as above who presented to the emergency room with complaints of chest pain. This was described as left-sided heaviness with radiation to the jaw and left shoulder that woke her up from sleep, 6 out of 10 in severity with some associated nausea. It improved with nitro at home. She came to the emergency room and had a negative troponin, negative chest x-ray, negative EKG. With her history cardiology was consulted, she underwent a stress test the following morning. This was abnormal and cardiac catheterization was recommended. This was performed the following day and she did have PTCA of the right coronary artery. She had hypertension following the catheterization and was placed on a nitro drip. This was able to be discontinued overnight. Her blood pressure remained stable. She was discharged on baby aspirin, statin, Coreg, Plavix, indoor, losartan, and Xarelto. She had no further chest pain the following morning. She was discharged home in stable condition. She will need to follow-up with her PCP in 1 to 2 weeks, and follow-up with cardiology as directed. This patient was seen by Fernando John PA-C under the supervision of Doctor Nate. [] - Physical Exam Vitals/I&O's: Vital Signs Temp Pulse Resp BP Pulse Ox 98.9 F 95 12 127/31 H 96 04/17/19 00:00 04/17/19 11:00 04/17/19 11:00 04/17/19 11:00 04/17/19 11:00 Oxygen Delivery Method Room Air Weight: 171 lb 15.369 oz Body Mass Index (BMI) 32.5 Intake and Output for Last 24 Hours 04/15/19 04/16/19 04/17/19 23:59 23:59 23:59 Intake Total 1647.92 / 1647.92 3178.75 / 3178.75 90 / 90 Output Total 600 / 600 0 / 0 Balance 1647.92 / 1647.92 2578.75 / 2578.75 90 / 90 General: Alert, Oriented x3, Cooperative HEENT: Atraumatic, PERRLA, EOMI, Normocephalic Neck: Supple, No JVD, Negative Carotid Bruits Lungs: Clear to auscultation, Normal air movement Cardiovascular: Regular rate, Murmur - 3/6 systolic murmur LSB Abdomen: Bowel Sounds Present, Soft, Non Tender Extremities: No edema, Capillary Refill Less than 3 Seconds Skin: No rashes, No breakdown Musculoskeletal: No Tenderness to Palpation of Joints or Extremities Neurological: Cranial nerves II-XII grossly intact Psych/Mental Status: Normal Affect, Appropriate, Alert and oriented to time, place, person, mood and affect Laboratory Results 04/17/19 04:30: WBC 17.5 H, RBC 4.02 L, Hgb 12.0, Hct 36.7 L, MCV 91.3, MCH 29.9, MCHC 32.7, RDW Std Deviation 46.5 H, RDW Coeff of Martha 13.9, Plt Count 228, MPV 10.6 04/17/19 04:30: Sodium 140, Potassium 4.0, Chloride 106, Carbon Dioxide 25.0, Anion Gap 9, BUN 32 H, Creatinine 1.28 H, Estim Creat Clear Calc 26.01, Est GFR (MDRD) Af Amer 51 L, Est GFR (MDRD) Non-Af 43 L, BUN/Creatinine Ratio 25.0 H, Glucose 130 H, Calcium 8.4 L, Total Bilirubin 0.40, AST 22, ALT 24, Alkaline Phosphatase 48, Total Protein 6.9, Albumin 3.2, Globulin 3.7, Albumin/Globulin Ratio 0.9 Discharge Diet: Low fat/ Low Cholesterol, 2000 mg Sodium Diet Discharge Activity: Return to Normal Activity Home Medications: Medications to take at Discharge levothyroxine 88 mcg tablet 88 mcg PO DAILY 90 Days 06/10/17 Ascorbic Acid [Vitamin C] 500 mg PO DAILY 01/16/18 Folic Acid 0.4 mg PO DAILY@0800 01/16/18 Ubidecarenone [Co Q-10] 100 mg PO DAILY 03/09/18 atorvastatin 40 mg tablet 40 mg PO DAILY 90 Days #90 tab 08/07/18 Aspirin E.C. [Ecotrin] 81 mg PO DAILY@0800 11/12/18 Calcium Citrate 200 mg PO DAILY 11/12/18 Calcium Citrate 400 mg PO DAILY@1200 11/12/18 Losartan Potassium [Cozaar] 50 mg PO BID 11/12/18 Multivitamins,Therapeutic [Multivitamin] 1 tab PO DAILY 11/12/18 [place]-3 Fatty Acids/Fish Oil [Fish Oil 1,000 mg Capsule] 1 cap PO BID 11/12/18 Potassium Chloride [K-Tab ER] 10 meq PO DAILY 11/12/18 Triamterene 37.5MG/Hctz 25MG [Dyazide (G)] 1 cap PO DAILY 11/12/18 nitroglycerin 0.4 mg sublingual tablet 0.4 mg SUBLINGUAL Q5-15M PRN 10 Days #25 tab 12/01/18 clopidogrel 75 mg tablet 75 mg PO DAILY #90 tab 02/12/19 Acetaminophen [Tylenol Tablet] 650 mg PO Q6H PRN PRN tab 04/17/19 Carvedilol [Coreg (Beta Tg)] 12.5 mg PO BID #60 tab 04/17/19 Isosorbide Mononitrate [Imdur] 30 mg PO DAILY #30 tab 04/17/19 Rivaroxaban [Xarelto] 2.5 mg PO BIDCM #60 tab 04/17/19 Following Prescrptions Were Given to Patient: Carvedilol [Coreg (Beta Tg)] 12.5 mg PO BID #60 tab Transmission Status: Received by MARISSA GUERRERO-[address] [facility] Isosorbide Mononitrate [Imdur] 30 mg PO DAILY #30 tab Transmission Status: Received by MARISSA AID-[address] [facility] Rivaroxaban [Xarelto] 2.5 mg PO BIDCM #60 tab Transmission Status: Received by MARISSA GUERRERO-[address] [facility] Other Amb Orders: Phase II, Outpatient Cardiac Rehab Location: None Selected Primary Care Physician: Boyd Casiano MD [Primary Care Provider] - Please follow up with your Primary Care Physician in: 1-2 weeks Please Follow Up With: Luis Alberto Madera MD When: as directed Disposition: Home Minutes spent on discharge:: 35 Patient Condition:: Stable Medical Necessity - Tobacco Use Smoking Status: Never smoker Tobacco Use: Non-smoker Meaningful Use Info Meaningful Use Diagnoses (Choose all that apply): None applicable <Abebe Sullivan E - Last Filed: 04/17/19 14:27> Discharge Date and Diagnosis - Secondary Discharge Diagnosis Chronic Problems (Last Updated 04/16/19 @ 14:15 by Joi Ballard) ABDIAS (obstructive sleep apnea) (Chronic) Initial AHI 35.5 Nonrheumatic mitral (valve) insufficiency (Chronic) Nonrheumatic aortic (valve) insufficiency (Chronic) Nonrheumatic aortic (valve) stenosis (Chronic) Carotid artery disease (Chronic) Atherosclerotic heart disease of [place] coronary artery without angina pectoris (Chronic) Previous LEANDER to proximal to mid LAD 3.0 X 32 mm Taxus 02/23/[address] Daquan Meyer, [facility];LEANDER to mid RCA 2.5 X 24 mm Synergy 01/19/[address] Patel,[facility]; PTCA/LEANDER of the mid LCX 03/10/[address] Torrez [facility]; Successful PTCA/LEANDER mid RCA with a 2.0 x 12balloon, followed by a 2.0 x 10 Angiosculpt, followed by a 2.5 x 16 Promus Synergy, post dilated with a 2.5 x 8 NC Balloon; 85%-->0%, no dissection 07/22/2018; Successful LEANDER Mid RCA ISR using Resolute Integrity 2.5x12 mm 11/12/2018; PTCA/NO stent to mid RCA 04/16/19 Presence of stent in coronary artery (Chronic ~11/13/18) Previous LEANDER to proximal to mid LAD 3.0 X 32 mm Taxus 02/23/[address] Daquan Meyer, [facility];LEANDER to mid RCA 2.5 X 24 mm Synergy 01/19/[address] Patel,[facility]; PTCA/LEANDER of the mid LCX 03/10/[address] Torrez [facility]; Successful PTCA/LEANDER mid RCA with a 2.0 x 12balloon, followed by a 2.0 x 10 Angiosculpt, followed by a 2.5 x 16 Promus Synergy, post dilated with a 2.5 x 8 NC Balloon; 85%-->0%, no dissection 07/22/2018; PTCA/LEANDER to mid RCA instent restenosis 11/13/18; PTCA/NO stent to mid RCA 04/16/19 CAD (coronary artery disease) (Chronic) Valvular heart disease (Chronic) Hypothyroidism (Chronic) Hyperlipidemia (Chronic) HTN (hypertension), benign (Chronic) Hospital Course and Treatment Summary of Care Provided: Hospitalist note: Discharge summary above and physical examination reviewed and I concur with the above discharge treatment plan. Patient was admitted for chest pain for evaluation. Her pain was vague but was concerning for unstable angina. Her EKG revealed no evidence of acute ischemic changes. Her troponin was negative x3. Patient underwent nuclear stress test that was abnormal with small area of diminished perfusion uptake in the basal/mid inferior septal/inferior segments concerning for stress-induced myocardial ischemia. Cardiology consulted and patient underwent cardiac catheterization which revealed mid RCA in-stent 95% restenosis which was treated by balloon angioplasty only. Patient's blood pressure was elevated after cardiac catheterization for which she was started on IV nitroglycerin drip. Her blood blood pressure medication adjusted by cardiology and she was started on Xarelto 2.5 mg p.o. twice daily for CAD. After cardiac catheterization and balloon Valentine plasty, patient had no more chest pain and her blood pressure stabilized after adjusting her antihypertensive medications. Patient discharged home in a stable medical c ondition, discharged on aspirin, statins, Plavix, started on Xarelto 2.5 g p.o. twice daily, discharged on losartan 50 mg p.o. twice daily, isosorbide mononitrate 30 mg p.o. daily, Coreg 12.5 mg p.o. twice daily, Dyazide daily, recommended follow-up with PCP in 1 to 2 weeks and follow-up with cardiology according to Dr. Madera. This note was generated with [employer] dictation software. It may contain incorrect words, spelling, and punctuation that were not noted in checking the note before signing. - Physical Exam Vitals/I&O's: Vital Signs Temp Pulse Resp BP Pulse Ox 98.9 F 95 12 127/31 H 96 04/17/19 00:00 04/17/19 11:00 04/17/19 11:00 04/17/19 11:00 04/17/19 11:00 Oxygen Delivery Method Room Air Weight: 171 lb 15.369 oz Body Mass Index (BMI) 32.5 Intake and Output for Last 24 Hours 04/15/19 04/16/19 04/17/19 23:59 23:59 23:59 Intake Total 1647.92 / 1647.92 3178.75 / 3178.75 / 90 Output Total 600 / 600 0 / 0 Balance 1647.92 / 1647.92 2578.75 / 2578.75 / 90 Laboratory Results 04/17/19 04:30: WBC 17.5 H, RBC 4.02 L, Hgb 12.0, Hct 36.7 L, MCV 91.3, MCH 29.9, MCHC 32.7, RDW Std Deviation 46.5 H, RDW Coeff of [place] 13.9, Plt Count 228, MPV 10.6 04/17/19 04:30: Sodium 140, Potassium 4.0, Chloride 106, Carbon Dioxide 25.0, Anion Gap 9, BUN 32 H, Creatinine 1.28 H, Estim Creat Clear Calc 26.01, Est GFR (MDRD) Af Amer 51 L, Est GFR (MDRD) Non-Af 43 L, BUN/Creatinine Ratio 25.0 H, Glucose 130 H, Calcium 8.4 L, Total Bilirubin 0.40, AST 22, ALT 24, Alkaline Phosphatase 48, Total Protein 6.9, Albumin 3.2, Globulin 3.7, Albumin/Globulin Ratio 0.9 Disposition: Home Minutes spent on discharge:: 26 Patient Condition:: Stable Meaningful Use Info Meaningful Use Diagnoses (Choose all that apply): None applicable Code Visit OBSV E&M: 98361 Observation care discharge
== END 2019-04-17 12:05 | disposition home or self-care (01) ==
LOC: ED 03:03 → PCU 03:49 → ICU 04-16 08:44
PROVIDERS: Internal Medicine Cardiovascular Disease; Specialist; Admitting Provider Family Medicine; Emergency Provider Emergency Medicine; Family Provider Family Medicine; PCP Family Medicine; Referring Provider Family Medicine; Visit Provider Hospitalist
DX: I25.110 Atherosclerotic heart disease of native coronary artery with unstable angina pectoris (principal); I12.9 Hypertensive chronic kidney disease with stage 1 through stage 4 chronic kidney disease, or unspecified chronic kidney disease; N18.3 Chronic kidney disease, stage 3 (moderate); E03.9 Hypothyroidism, unspecified; G47.33 Obstructive sleep apnea (adult) (pediatric); E78.5 Hyperlipidemia, unspecified; E66.9 Obesity, unspecified; I34.0 Nonrheumatic mitral (valve) insufficiency; Z68.32 Body mass index [BMI] 32.0-32.9, adult; Z71.3 Dietary counseling and surveillance; Z79.899 Other long term (current) drug therapy; Z79.82 Long term (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 aspirin; Z79.02 Long term (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 antithrombotics/antiplatelets; Z95.5 Presence of coronary angioplasty implant and graft
CPT/HCPCS: 36415; 71045; 78452; 80048; 80053; 80061; 83735; 84484; 85025; 85027; 85730; 92920; 93005; 93017; 93458; 96360; 96361; 96372; 97802; 99152; 99153; 99218; 99285; A9500; J7030; J7040; A4216; C1725; C1769; C1887; C1894; G0378; J2785; Q9967

== ENCOUNTER → 2019-05-06 08:56 | Outpatient (CLI) | payer MEDICARE, OTHER, SELFPAY ==
[2019-04-15 04:04] VITALS: BMI 32.5
[2019-04-26 13:02] VITALS: BMI 33.0
--- NOTE | 2019-05-06 09:02 | PCM.CR.ITP ---
General Information - General Information Admitting Diagnosis: PTCA - Education/Goals Barriers to Learning: None Individual Counseling: Initial Assessment: Abnormal Cholesterol Levels, High Blood Pressure, Overweight/Obesity Cardiac Rehabilitation Goals: 1. Maintain the individual as the primary focus of care. 2. To improve the patient's quality of life. 3. Identification of cardiac risk factors and provide cardiac risk factor management. 4. Enhance the psychosocial status of the patient. 5. Reconditioning enough to allow the patient to resume customary activities. 6. Control symptoms of cardiac disease Scale for measuring improvement of personal goals: Enter appropriate number in Comments. 2 = Unchanged. 3 = Slightly Better. 4 = Moderate Improvement. 5 = Met my Goal Personal Goals: Initial Assessment: Improve energy level, Participate in home exercise program, Improve muscle strength and endurance, Control risk factors (learn risk factor modification) Exercise - Initial Assessment - Visit Date of Eval: 05/06/19 - Stages of Change Stages of Change:: Action - Physician Prescribed Exercise Modalities: Treadmill, Airdyne, NuStep Frequency (days/week): 3x/week for 12 weeks [36 sessions] Duration (Minutes):: 30-45 Intensity: 60-80% age predicted maximum heart rate reserve METs - Progression: 0.5-1.0 MET, RPE 11-14 WEEK: 3.0 Target Heart Rate:: 90-118 - Hypertension Do any of the following apply?: Yes, Medication Resting Blood Pressure:: 136/62 - Intervention Home Exercise/Activity Goal:: Moderate Exercise 30 min/day x 5 days/wk - Education Goals:: Warm-up, RPE CARINE Scale, S/S, Safe Exercise, Self-Monitoring - Exercise Program Goals Exercise Program Goals: Aerobic Activity >30 min Nutrition - Initial Assessment - Program Goals Nutrition Program Goals: LDL <70. Total Cholesterol <200. HDL >45. Triglycerides <150. HgbA1C <7%. BMI <25 - Visit Date of Assessment:: 05/06/19 - Stages of Change Stages of Change:: Action - Lipids Total Cholesterol (mg/dL) Goal = less than 200 mg/dL: 107 - 04/15/2019 HDL Cholesterol (mg/dL) Goal = less than 45 mg/dL: 37 LDL Cholesterol (mg/dL) Goal = less than 70 mg/dL: 26 Triglycerides (mg/dL) Goal = less than 150 mg/dL: 219 - Diabetes Diabetes:: No Do you monitor your blood sugar at home?: No - Weight Management Height: 5 ft 1 in Weight:: 175 lb Body Fat %:: 33 - Intervention Referral to dietitian:: Yes - PATIENT COULD BENEFIT FROM STRUCTURED WEIGHT LOSS AND CARDIAC DIET Referral to Diabetic Clinic:: No Will attend diet classes:: Yes - Education Gave educational materials for:: Healthy eating Tobacco - Initial Assessment - Program Goals Tobacco Program Goals: Complete smoking cessation. Attend education classes. Improve Knowledge Test score - Stage of Change Stages of Change:: Action - Learning Barriers Learning Barriers: Ready to Learn - Family Support Do you have family support?: Yes - Tobacco Use Tobacco Use: Non-smoker Do you use smokeless tobacco?: No - Intervention Smoking Cessation Referral:: No Individual Education/Counseling:: No Education Schedule Given:: Yes - Education Attended class for:: Treating Heart Disease, How The Heart Works, What it means to have Heart Disease, How Coronary Artery Disease is Diagnosed, Heart Procedures, What Heart Medications Do, Risk Factors & Modifications, Living an Active Life, Nutrition, Emotions & Heart Disease, Stress Management & Relaxation, Sleep Disorders & Heart Disease Psychosocial - Initial Assess - Target Goals Target Goals: Assess presence or absence of depression. Using a valid screening tool, maximizes coping skills. Positive support system - Stages of Change Stages of Change:: Action - Psychosocial Test Tool Used:: HANDS Depression Questionnaire - Intervention PS - Interventions: Yes Attend Stress Management Classes, Yes Uses Stress Management Skills, No Referral to Mental Health, No Referral to [facility] Case Management, No Referral to Physician - Education Gave educational materials for:: Coping techniques, Signs & symptoms of depression, Stress management, Relaxation techniques - Patient/Program Goal Preventative Medication(s):: Aspirin - PATIENT REPORTS TAKING MEDICATIONS PRESCRIBED, NOY inhibitor, Clopidogrel, Beta skylar, Statin/lipid - Assistive Devices Fall Risk Assessed:: Yes Patient Health Questionnaire Initial Assessment 1. Little interest or pleasure in doing things: Not at all 2. Feeling down, depressed, or hopeless: Several days 3. Trouble falling or staying asleep, or sleeping too much: Not at all 4. Feeling tired or having little energy: Several days 5. Poor appetite or overeating: Not at all 6. Feeling bad about yourself -- or that you are a failure or have let yourself or your family down: Not at all 7. Trouble concentrating on things, such as reading the newspaper or watching television: Not at all 8. Moving or speaking so slowly that other people could have noticed. Or the opposite - being so fidgety or restless that you have been moving around a lot more than usual: Not at all 9. Thoughts that you would be better off , or of hurting yourself in some way: Not at all How difficult have these problems made it for you to do your work, take care of things at home, or get along with other people?: Somewhat difficult Total Score: 2 SARAH-Q SV Test - Statements CAD is a disease of the arteries in the heart: False Examples of risk factors for heart disease: True Angina is chest pain or discomfort: True The benefits of resistance training include: True Eating more meat and dairy products: False Anti-platelet medications such as aspirin are important: True The only effective way to manage stress: False An exercise warm-up slowly increases heart rate: True Prepared, processed foods usually have high sodium: True Depression is common after a heart attack: True The statin medications lower cholesterol: True To control blood pressure, lower the amount of sodium: True If someone gets chest discomfort during walking: False Transfats are partially hydrogenated vegetable oils: True Sleep apnea that is not treated increases the risk: False To control cholesterol, one should become a vegetarian: False Someone knows if he/she is exercising at the right level: True Diabetes cannot be prevented with exercise & health eating: False Stress is a large risk for heart attack: True A diet that can help lower blood pressure is rich in: True - Total Score Total Correct Responses: 20 Self-Efficacy Initial Assessment We would like to know how confident you are in doing certain activities. Please select your confidence level for:: Select your confidence level for the following using the scale 1-10 where 1 is not at all confident and 10 is totally confident. Your score is the average of all 6 responses. Fatigue: How confident are you that you can keep the fatigue caused by your disease from interfering with the things you want to do? Select Number: 5 Physical Discomfort or Pain: How confident are you that you can keep the physical discomfort or pain of your disease from interfering with the things you want to do? Select Number: 9 Emotional Distress: How confident are you that you can keep the emotional distress caused by your disease from interfering with the things you want to do? Select Number: 9 Other Symptoms or Health Problems: How confident are you that you can keep other symptoms or health problems from interfering with the things you want to do? Select Number: 9 Different Tasks and Activities: How confident are you that you can do the different tasks and activities needed to manage your health condition so as to reduce your need to see a doctor? Select Number: 7 Medication: How confident are you that you can do things other than just taking medication to reduce how much your illness affects your everyday life? Select Number: 7 Total Score:: 7 Nutrition Survey - Nutrition Survey Instructions Scoring Instructions: Scoring is as follows: Yes = 1 points. No = 0 point. Patient score that is >/=12 is considered to be at potential nutritional risk and could benefit from a referral to a registered dietitian. - Nutrition Survey Initial Have you lost >10 lbs over the past 2 months without trying?: No Are you following a special diet at home for diabetes, low fat, or low salt?: Yes Are you interested in meeting with a dietitian for help understanding your diet?: No Do you eat less than 3 meals a day?: No Do you eat fatty meats (cadet, sausage, ribs, etc), fried foods, desserts, large amounts of salad dressings, margarine, butter, or cheese most days?: No Do you have food allergies? [Enter types in comment field]: No Do you eat in restaurants more than 3 times a week?: No Do you season food with salt, seasoning salt, or garlic salt?: Yes Do you used canned, boxed, frozen meals, or soups, seasoning packets?: No Total Score:: 2
--- NOTE | 2019-05-06 09:03 | CR.HP_ITS ---
CR - History & Physical - General Arrival date:: 05/06/19 Arrival time:: 09:00 Date of Referral:: 04/16/19 Date of CR Evaluation:: 05/06/19 Referring Physician: LEO Primary Diagnosis: PTCA - History of Present Cardiac Event Onset Date: Enter Onset Date of cardiac illnesses in Comment field below PTCA or coronary stenting:: Yes - PTCA 07/22/2018, 11/13/2018 + 04/16/2019; PCI 02/2004, 01/2018, 03/10/2018. Type of Symptoms:: CHEST PAIN; woke up around 2:00 am with chest discomfort, nausea, arm and jaw pain. Patient has a previous h/o coroanry artery disease and previous coronary interventions (7-stents). She took a nitro which relieved the pain and one in route to the hospital ER. Interventions with present event:: heart cath with angioplasty. Were there any complications?: NONE - Medications Home Medications: Ambulatory Orders Medication Instructions Recorded levothyroxine 88 mcg tablet 88 mcg PO DAILY 90 Days 06/10/17 Ascorbic Acid [Vitamin C] 500 mg PO DAILY 01/16/18 Folic Acid 0.4 mg PO DAILY@0800 01/16/18 Ubidecarenone [Co Q-10] 100 mg PO DAILY 03/09/18 atorvastatin 40 mg tablet 40 mg PO DAILY 90 Days #90 tab 08/07/18 Aspirin E.C. [Ecotrin] 81 mg PO DAILY@0800 11/12/18 Calcium Citrate 200 mg PO DAILY 11/12/18 Calcium Citrate 400 mg PO DAILY@1200 11/12/18 Losartan Potassium [Cozaar] 50 mg PO BID 11/12/18 Multivitamins,Therapeutic 1 tab PO DAILY 11/12/18 [Multivitamin] [place]-3 Fatty Acids/Fish Oil [Fish 1 cap PO BID 11/12/18 Oil 1,000 mg Capsule] Potassium Chloride [K-Tab ER] 10 meq PO DAILY 11/12/18 Triamterene 37.5MG/Hctz 25MG 1 cap PO DAILY 11/12/18 [Dyazide (G)] nitroglycerin 0.4 mg sublingual 0.4 mg SUBLINGUAL Q5-15M PRN 10 12/01/18 tablet Days #25 tab clopidogrel 75 mg tablet 75 mg PO DAILY #90 tab 08/30/19 Acetaminophen [Tylenol Tablet] 650 mg PO Q6H PRN PRN tab 04/17/19 Carvedilol [Coreg (Beta Tg)] 12.5 mg PO BID #60 tab 04/17/19 Isosorbide Mononitrate [Imdur] 30 mg PO DAILY #30 tab 04/17/19 rivaroxaban 2.5 mg tablet 2.5 mg PO ONCE #60 tab 04/26/19 - Allergies Allergies/Adverse Reactions: Allergies Iodinated Contrast Media [Iodinated Contrast- Oral and IV Dye] Allergy (Intermediate, Verified 04/26/19 13:56) Rash ramipril [From Altace] Adverse Reaction (Severe, Verified 04/26/19 13:56) cough - Sleep Disorder Evaluation Hx of Sleep Apnea: Yes Do you snore loudly (louder than talking or can be heard through closed doors)?: Yes Do you often feel tired/ fatigued/ sleepy during daytime?: No Has anyone observed you stop breathing during sleep?: Yes History of Hypertension (for STOP score): Yes - patient has home CPAP unit for treatment of her ABDIAS. STOP Results: Positive Advanced Directives - Advanced Directives Power of Substation Maintenance Technician: Yes - DAUGHTER IS POA OF HEALTHCARE Living Will: Yes Advance Directives Information Provided: No Advance Directives on File: No DNR Order?:: No - MOLST See MOLST form: No Past Medical History - Past Medical Illness Medical History: Past Medical History (Last Updated 04/16/19 @ 14:15 by Joi Ballard) Nonrheumatic mitral (valve) insufficiency (Chronic) I34.0 Nonrheumatic aortic (valve) insufficiency (Chronic) I35.1 Nonrheumatic aortic (valve) stenosis (Chronic) I35.0 Carotid artery disease (Chronic) I77.9 Atherosclerotic heart disease of [place] coronary artery without angina pectoris (Chronic) I25.10 Previous LEANDER to proximal to mid LAD 3.0 X 32 mm Taxus 02/23/[address] Daquan Meyer, [facility];LEANDER to mid RCA 2.5 X 24 mm Synergy 01/19/[address] Patel,[facility]; PTCA/LEANDER of the mid LCX 03/10/[address] Torrez [facility]; Successful PTCA/LEANDER mid RCA with a 2.0 x 12balloon, followed by a 2.0 x 10 Angiosculpt, followed by a 2.5 x 16 Promus Synergy, post dilated with a 2.5 x 8 NC Balloon; 85%-->0%, no dissection 07/22/2018; PTCA/LEANDER to mid RCA instent restenosis 11/13/18; PTCA/NO stent to mid RCA 04/16/19 CAD (coronary artery disease) (Chronic) I25.10 Valvular heart disease (Chronic) I38 Hypothyroidism (Chronic) E03.9 Hyperlipidemia (Chronic) E78.5 HTN (hypertension), benign (Chronic) I10 Aortic insufficiency (Inactive) I35.1 - Past Surgical History Surgical History: Past Surgical History (Last Updated 04/16/19 @ 14:15 by Joi Ballard) Presence of stent in coronary artery (Chronic) Onset Date: ~11/13/18 Z95.5 Previous LEANDER to proximal to mid LAD 3.0 X 32 mm Taxus 02/23/[address] Daquan Meyer, [facility];LEANDER to mid RCA 2.5 X 24 mm Synergy 01/19/[address] Patel,[facility]; PTCA/LEANDER of the mid LCX 03/10/[address] Torrez [facility]; Successful PTCA/LEANDER mid RCA with a 2.0 x 12balloon, followed by a 2.0 x 10 Angiosculpt, followed by a 2.5 x 16 Promus Synergy, post dilated with a 2.5 x 8 NC Balloon; 85%-->0%, no dissection 07/22/2018; PTCA/LEANDER to mid RCA instent restenosis 11/13/18; PTCA/NO stent to mid RCA 04/16/19 History of cholecystectomy Z90.49 Surgical History: angioplasty, cholecystectomy, - - Cardiac stents in 2003, one stent in January 2018, one stent in March 2018, one stent in July 2018 - Family History Summary Family History: Family History (Last Reviewed 04/07/19 @ 15:23 by ERYN White) Mother , Age 63 Myocardial infarction Father , Age 28 Colon cancer Social History - Smoking History Smoking Status: Never smoker Hx Tobacco Use: No Hx Smoking Exposure: No - Alcohol Use Alcohol Usage: No - Substance Abuse Hx Substance Use: No - Occupation Occupation (List type of work in comments):: Retired - Hobbies, Recreation, Social Activities Hobbies: Other Recreational Activities: I am able to engage in most, but not all activities Social Environment - Status Marital Status: - Current Living Arrangements Living Environment:: Spouse - Children How many children do you have?: 4 Do any of your children live nearby?: Yes - Safety Do you feel safe in your surroundings?: Yes - Assistance Do you need any assistance at home?: NONE Review of Systems - Review of Systems Hints: Right click = Denies (Slash). Left click = Reports ([place]) Review of Present Symptoms: Reports: Fatigue - BY AFTERNOON AFTER ACTIVITIES GET A LITTLE TIRED AND OCCASIONALLY WILL TAKE A NAP, Appetite - Normal, Appetite - Special Diet - NOT SPECIAL, BUT TRY TO EAT HEALTHY., Sleep - Normal. Denies: Shortness of Breath at Rest, Shortness of Breath with Exertion, Angina, Dizziness/Lightheadedness, Sexual Changes - Pain Is Patient Pain Free?: Yes Pain Location: none Pain Level: 0/10 Risk Factor Assessment - Chief Complaint Chief Complaint: PATIENT IS A FORMER CR PATIENT FROM THE PAST. SHE RECENTLY WAS SEEN BY DR. BAILEY FOR CHEST PAIN AND DURING HER HEART CATH FOUND A 95% OCCULSION WHICH THEN HAD ANGIOPLASTY. - Vital Signs Temperature: 98.5 F Respiratory Rate: 16 Pulse Ox: 95 Blood Pressure: 136/62 Nailbeds:: PINK - Pulse Pulse Rate: 60 Pulse Rhythm: Regular - Hypertension On medication(s)?: YES Blood Pressure Sitting - Left Arm: 136/62 - Blood Cholesterol/Lipids Total Cholesterol (mg/dL) Goal = less than 200 mg/dL: 107 - HDL Cholesterol (mg/dL) Goal = less than 40 mg/dL: 37 LDL Cholesterol (mg/dL) Goal = less than 70 mg/dL: 26 Triglycerides (mg/dL) Goal = less than 150 mg/dL: 219 - Diabetes Nutrition Referral for Diabetes: No - Obesity Height: 5 ft 1 in Weight:: 175 lb Weight in Pounds: 175.0 lbs Weight Source: Standing Scale Body Mass Index (BMI): 33.0 Nutritional Referral for Obesity: Yes - 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 Smoking Moderate Risk: Smoker or quit 6 months or less ago. Smoking High Risk: Smoker - For Dyslipidemia Dyslipidemia Risk Guidelines: Low Risk: Moderate Risk: High Risk: 15-25% fat 25.1-29% fat >/= 30% fat. <7% sat fat 7-9% sat fat >9% sat fat. <150 mg chol 150-299 mg chol >/= 300 mg chol. LDL <100 LDL 100-129 LDL >/= 130. Chol/HDL ratio <5.0 Chol/HDL ratio 5.0-6.0 Chol/HDL ratio >6.0. Triglycerides <100 Triglycerides 100-149 Triglycerides >/= 150 - For Diabetes Mellitus Diabetes Risk Guidelines: Diabetes Low Risk: HgA1c <6.5% and/or FBG <120. Diabetes Moderate Risk: HgA1c 6.6-7.9% and/or FBG 120-180. Diabetes High Risk: HgA1c >/= 8% and/or FBG >180 - For Obesity/Overweight Obesity/Overweight Risk Guidelines: Obesity Low Risk: BMI <25.0. Obesity Moderate Risk: BMI 25-29.9. Obesity High Risk: BMI >/= 30.0 - For Hypertension Hypertension Risk Guidelines: Hypertension Low Risk: Systolic <120 and Diastolic <80. Hypertension Moderate Risk: Systolic 120-139 and Diastolic 80-89. Hypertension High Risk: Systolic >/= 140 and Diastolic >/= 90 - For Sedentary Lifestyle Sedentary Lifestyle Risk Guidelines: Sedentary Lifestyle Low Risk: >/= 1,500 kcal/week. Sedentary Lifestyle Moderate Risk: 700-1,499 kcal/week. Sedentary Lifestyle High Risk: < 700 kcal/week - For Depression Depression Risk Guidelines: Depression Low Risk: Not clinically depressed. Depression Moderate Risk: Mildly depressed. Depression High Risk: Clinically depressed - Family History Family History: Family History (Last Reviewed 04/07/19 @ 15:23 by ERYN White) Mother Myocardial infarction Father Colon cancer Motivation - Motivation to Participate On a scale of 1 to 10, how prepared are you to commit to attending program?: 7 - BEEN THROUGH THIS BEFORE. THOUGHT WAS DOING THE RIGHT THINGS, JUST DISCOURAGING. What do you see as barriers to successfully being able to complete the program?: FEEL LIKE IT IS TOO MUCH FOR ME What do you see as the benefits of succesfully completing the program? In other words, what do you hope to get out of participating in the program?: MONITORING, MORE STAMINA MORE ENERGY Are there issues you are dealing with that will interfere with completing the program?: NONE Do you have a spouse or signficant other, family or friends who will help support you to complete the program?: YES.
[2019-05-06 09:26] VITALS: BP 136/62; PULSE 60; RESP 16; TEMP 36.9; O2SAT 95; BMI 33.0
[2019-05-06 09:41] VITALS: BP 136/62
== END ==
PROVIDERS: Family Provider Family Medicine; PCP Family Medicine; Referring Provider Internal Medicine Cardiovascular Disease; Visit Provider Internal Medicine Cardiovascular Disease
DX: I25.10 Atherosclerotic heart disease of native coronary artery without angina pectoris (principal); I77.9 Disorder of arteries and arterioles, unspecified; G47.33 Obstructive sleep apnea (adult) (pediatric); E78.5 Hyperlipidemia, unspecified; I10 Essential (primary) hypertension; E03.9 Hypothyroidism, unspecified

== ENCOUNTER 2019-05-12 14:15 | Outpatient (RCR) | payer MEDICARE, OTHER, SELFPAY ==
[2019-05-06 09:26] VITALS: BMI 33.0
== END 2019-05-15 23:59 ==
LOC: CR 14:15
PROVIDERS: Family Provider Family Medicine; PCP Family Medicine; Referring Provider Internal Medicine Cardiovascular Disease; Visit Provider Internal Medicine Cardiovascular Disease
DX: I25.10 Atherosclerotic heart disease of native coronary artery without angina pectoris (principal); Z98.61 Coronary angioplasty status
CPT/HCPCS: 93798

== ENCOUNTER 2019-05-26 20:32 | Inpatient (IN) | payer MEDICARE, OTHER, SELFPAY ==
[2019-05-25 12:40] VITALS: BMI 32.3
[2019-05-26 20:33] VITALS: BP 183/114; PULSE 67; RESP 13; TEMP 36.6; O2SAT 96; BMI 31.4
--- NOTE | 2019-05-26 20:36 | EKG12_ITS ---
Test Reason : REPEAT Blood Pressure : / mmHG Vent. Rate : 053 BPM Atrial Rate : 053 BPM P-R Int : 160 ms QRS Dur : 086 ms QT Int : 460 ms P-R-T Axes : 070 -13 014 degrees QTc Int : 431 ms Sinus bradycardia Voltage criteria for left ventricular hypertrophy Abnormal ECG Confirmed by FREDDIE WYNN, DAMIR ([id number]), editor trade journal JANETT MURPHY ([id number]) on 06/02/2019 11:35:59 AM Referred By: Jono Alex Confirmed By:ALEXIS FRAZIER MD
--- NOTE | 2019-05-26 20:37 | RAD_ITS ---
STUDY: X-RAY CHEST REASON FOR EXAM: Female, 83 years old. Chest pain TECHNIQUE: Single AP portable view of the chest. COMPARISON: April 15, 2019 FINDINGS: Chronic prominence of the pulmonary vascular structures in the perihilar regions. Mild interstitial scarring reidentified in the left lower lobe. No focal consolidation is seen. Normal heart size. Stable mediastinal and osseous structures RAD/Chest 1 View (Portable) IMPRESSION: Chronic abnormalities. No acute process seen Electronically Signed: Sammy Rain MD at 21:00 EST , Service support ,
--- NOTE | 2019-05-26 20:47 | ED.VIS.GEN ---
History of Present Illness Chief Complaint: Chest Pain Informant: Patient Onset: Today Context: Gradual Onset Timing: Intermittent Current Severity: Moderate Maximum Severity: Moderate Narrative: The patient is an 83-year-old female with history of significant coronary vascular disease who presents to the emergency department chest pain. The patient was hospitalized last month. She underwent heart catheterization which showed in-stent stenosis of her LAD. She had balloon angioplasty. She has been compliant with her Plavix. She states that she is been doing well. Today, she was at cardiac rehab and while riding a bike, she had chest pain. She states she did not tell anyone because she they were monitoring her. She states that it happened again tonight. She took 1 nitro which improved the pain, but it is still been persistent. She describes as tightness in the substernal area that radiates to her shoulder and neck. This is same symptoms when she had her stents prior. Prior similar symptoms: No Recent Illness/Hospitalization: No Past Medical History - Allergies and Home Meds Allergies/Adverse Reactions: Allergies Iodinated Contrast Media [Iodinated Contrast- Oral and IV Dye] Allergy (Intermediate, Verified 05/26/19 20:33) Rash ramipril [From Altace] Adverse Reaction (Severe, Verified 05/26/19 20:33) cough Primary Care Physician: Boyd Casiano MD [Primary Care Provider] - Prior records reviewed: Yes Past Medical History: - - Coronary vascular disease, hypertension, hyperlipidemia Surgical History: angioplasty, cholecystectomy, - - Cardiac stents in 2003, one stent in January 2018, one stent in March 2018, one stent in July 2018 Smoking Status: Never smoker - Family History Maternal Family History: Family History (Last Reviewed 05/26/19 @ 08:36 by Debbie Chavez) Mother Myocardial infarction Father Colon cancer Family History: Reports: Heart Disease - [place] Paternal Family History: Family History (Last Reviewed 05/26/19 @ 08:36 by Debbie Chavez) Mother Myocardial infarction Father Colon cancer Family History: Reports: Cancer - colon Review of Systems General: Denies: Chills, Fever, Sweats Eyes: Denies: Visual changes - bilaterally, Diplopia ENT: Denies: Rhinorrhea, Sore throat Cardiovascular: Reports: Chest pain. Denies: Palpitations Respiratory: Denies: Dyspnea, Cough, Dyspnea on exertion Gastrointestinal: Denies: Abdominal pain, Nausea, Vomiting, Diarrhea, Melena, Hematochezia Genitourinary: Denies: Dysuria, Hematuria, Frequency Musculoskeletal: Denies: Back pain, Extremity Pain Skin: Denies: Rash, Wounds Neurological: Denies: Headache, Weakness, Numbness Physical Exam Vital Signs/Narrative: Vital Signs Temp Pulse Resp BP Pulse Ox 05/26/19 20:33 98 F 67 13 183/114 H 96 Inital Vital Signs reviewed: Yes General: Well nourished, Well developed, No Acute Distress Head: Normocephalic, Atraumatic Eyes: Perrl, EOMI ENT: Moist mucous membranes, No rhinorrhea Neck: Supple, Nontender Cardiovascular: Regular rate, Regular rhythm, No murmurs Respiratory: No distress, CTA bilaterally, Chest nontender Abdomen: Soft, Nontender, Nondistended, Normal bowel sounds Back: Nontender, Normal Inspection Extremities: Nontender, No edema Skin: Normal color, No rash Neurological: Alert, Oriented x3, Cranial nerves II-XII grossly intact, Normal Strength, Normal Sensation Psychological: Normal affect, Normal Mood Diagnostic/Tx/Re-eval Chest X-Ray - ED: 1 View, Normal, Lungs, Mediastinum, Chronic Changes, Cardiomegaly - Rhythm Strip Rhythm Strip: Sinus Rhythm Rate: 60 Ectopy: None - EKG Initial EKG Interpretation: Sinus Rhythm, No Acute Injury Pattern Prior: Unchanged - Medical Decision Making The patient presents to the emergency department with substernal chest pain. She actually had in-stent stenosis of her RCA stent. She underwent balloon angioplasty. She states she has been doing well with her cardiac rehab. She did have recurrence of her pain today. The patient was given 2 sublingual nitro in the emergency department with total resolution of her pain. EKG was obtained. There is no evidence of acute ischemia. It was unchanged from prior. Cardiac enzymes were negative. Patient has remained pain-free. I did discuss her care with Dr. Laura, cardiology on-call. He recommended a 3-hour troponin and as long as this is negative, and the patient stays pain-free he was comfortable with her following up in the office. Obviously, if the patient's pain returns or her troponin is elevated, she will need to be admitted. The patient is comfortable with this plan. Impression 1. Chest pain ED Disposition - Plan for ED Patient: Instructions: CHEST PAIN, Uncertain Cause Referrals: Luis Alberto Madera MD [STAFF PHYSICIAN] -
[2019-05-26 20:52] LABS: Absolute Lymphocyte Count 2.08 X10^3/uL (0.83-4.51); Absolute Neutrophil Count 6.4 X10^3/uL (2.0-7.7); Basophil# 0.06 X10^3/uL; Basophil% 0.6 % (0-1); Eosinophil# 0.19 X10^3/uL; Hematocrit 38.3 % (37-47); Hemoglobin 12.7 g/dL (12.0-15.0); Lymphocyte # 2.08 X10^3/ul (4.0); Lymphocyte % 21.4 % (19-41); Mean Corp Hgb Conc 33.2 g/dL (32-36); Mean Corpuscular Hgb 29.7 pg (27.0-32.0); Mean Corpuscular Volume 89.7 fL (81-99); Mean Platelet Vol. 10.2 fl (6.2-12.0); Monocyte# 0.97 X10^3/uL; NRBC Flagged by Analyzer 0 % (0-5); Neutrophil # 6.39 X10^3/uL (2.7-7.7); Neutrophil % 65.6 % (47-70); Platelet Count 224 K/mm3 (150-450); RBC Distribution Width CV 13.8 % (11.6-14.6); RBC Distribution Width SD 44.9 fl (35.1-43.9); Red Blood Count 4.27 M/mm3 (4.2-5.4); White Blood Count 9.7 K/mm3 (4.4-11.0)
[2019-05-26] MEDS: Aspirin 81 MG TAB.CHEW 324 MG PO (21:00)
[2019-05-26 21:01] VITALS: BP 156/51; PULSE 57
[2019-05-26] MEDS: Nitroglycerin SL (ED/IMG/CATH) 0.4 MG TABLET SUBLINGUAL (21:01)
[2019-05-26 21:04] LABS: International Normalized Ratio 1.2; Prothrombin Time (Protime)PT. 14.6 SECONDS (11.7-14.9)
[2019-05-26 21:11] VITALS: BP 144/53; PULSE 57; RESP 14; O2SAT 95
--- NOTE | 2019-05-26 21:16 | EKG12_ITS ---
Test Reason : CP Blood Pressure : / mmHG Vent. Rate : 065 BPM Atrial Rate : 065 BPM P-R Int : 164 ms QRS Dur : 078 ms QT Int : 408 ms P-R-T Axes : 074 -18 003 degrees QTc Int : 424 ms Normal sinus rhythm Moderate voltage criteria for LVH, may be normal variant Nonspecific ST-T Changes Abnormal ECG Confirmed by FREDDIE WYNN, DAMIR ([id number]), supervising film or videotape editor JANETT MURPHY ([id number]) on 06/02/2019 11:35:42 AM Referred By: Jono Alex Confirmed By:ALEXIS FRAZIER MD
[2019-05-26 21:34] LABS: Anion Gap 6 (5-15); BUN 27 mg/dL (7-18); BUN/Creat Ratio 23.5 RATIO (10-20); Calcium,Total 9.4 mg/dL (8.5-10.1); Chloride 106 mmol/L (98-107); Creatinine, Serum 1.15 mg/dL (0.55-1.02); EST Glomerular Filtration Rate 48 mL/min (>60); Est Glom Filt Rate - Afr Amer 58 mL/min (>60); Estimated Creatinine Clearance 30.34 ml/min; Glucose 171 mg/dL (74-106); Sodium Level 138 mmol/L (136-145)
[2019-05-26 21:43] VITALS: BP 142/48; PULSE 57; RESP 18; O2SAT 96
[2019-05-26 23:03] VITALS: BP 174/57; PULSE 53; RESP 13; O2SAT 95
[2019-05-27] VITALS (15 sets, daily range): BP systolic 126–174; BP diastolic 42–76; PULSE 52–60; RESP 13–18; TEMP 36.6–37; O2SAT 92–95; BMI 30.7
--- NOTE | 2019-05-27 00:15 | PCM.HP.STD ---
Problem List (1) Anginal equivalent Status: Acute (2) History of percutaneous transluminal coronary angioplasty Status: Chronic Comment: PTCA/NO stent to mid RCA 04/16/19 (3) Angina pectoris Status: Chronic (4) Chest pain Status: Acute (5) ABDIAS (obstructive sleep apnea) Status: Chronic Comment: Initial AHI 35.5 (6) Nonrheumatic mitral (valve) insufficiency Status: Chronic (7) Nonrheumatic aortic (valve) insufficiency Status: Chronic (8) Nonrheumatic aortic (valve) stenosis Status: Chronic (9) Carotid artery disease Status: Chronic Qualifiers: Carotid artery disease type: stenosis Laterality: bilateral Qualified Code(s): I65.23 - Occlusion and stenosis of bilateral carotid arteries (10) Atherosclerotic heart disease of [place] coronary artery without angina pectoris Status: Chronic Qualifiers: [place] vs. transplanted heart: [place] heart Qualified Code(s): I25.10 - Atherosclerotic heart disease of [place] coronary artery without angina pectoris Comment: Previous LEANDER to proximal to mid LAD 3.0 X 32 mm Taxus 02/23/[address] Daquan Meyer, [facility];LEANDER to mid RCA 2.5 X [facility] [facility]/LEANDER of the mid LCX 03/10/[address] Torrez [facility]; Successful PTCA/LEANDER mid RCA with a 2.0 x 12balloon, followed by a 2.0 x 10 Angiosculpt, followed by a 2.5 x 16 Promus Synergy, post dilated with a 2.5 x 8 NC Balloon; 85%-->0%, no dissection 07/22/2018; PTCA/LEANDER to mid RCA instent restenosis 11/13/18; PTCA/NO stent to mid RCA 04/16/19 (11) Presence of stent in coronary artery Status: Chronic Comment: Previous LEANDER to proximal to mid LAD 3.0 X 32 mm Taxus 02/23/[address] Daquan Meyer, [facility];LEANDER to mid RCA 2.5 X [facility] [facility]/LEANDER of the mid LCX 03/10/[address] Torrez [facility]; Successful PTCA/LEANDER mid RCA with a 2.0 x 12balloon, followed by a 2.0 x 10 Angiosculpt, followed by a 2.5 x 16 Promus Synergy, post dilated with a 2.5 x 8 NC Balloon; 85%-->0%, no dissection 07/22/2018; PTCA/LEANDER to mid RCA instent restenosis 11/13/18; PTCA/NO stent to mid RCA 04/16/19 (12) CAD (coronary artery disease) Status: Chronic Qualifiers: Coronary Disease-Associated Artery/Lesion type: unspecified vessel or lesion type [place] vs. transplanted heart: unspecified whether [place] or transplanted heart Associated angina: angina presence unspecified Qualified Code(s): I25.10 - Atherosclerotic heart disease of [place] coronary artery without angina pectoris (13) Valvular heart disease Status: Chronic (14) Hypothyroidism Status: Chronic Qualifiers: Hypothyroidism type: unspecified Qualified Code(s): E03.9 - Hypothyroidism, unspecified (15) Hyperlipidemia Status: Chronic Qualifiers: Hyperlipidemia type: pure hypercholesterolemia Qualified Code(s): E78.00 - Pure hypercholesterolemia, unspecified (16) HTN (hypertension), benign Status: Chronic History of Present Illness Date of Admission: 05/27/19 Chief Complaint: chest pain The patient is a 83 year old F with a significant history of hypertension; CAD status post 7 stents with last angioplasty in March 2019 who presented to the emergency department with left shoulder blade pain; left arm pain and left jaw pain. She reported that typically the above are her symptoms when she has CAD. Her current symptoms actually started at the cardiac rehab. While riding the bicycle at the cardiac rehab, patient had mild chest pain that went away after she stopped using the bicycle and used other training equipment. When she went home she did not have chest pain but rather she had left shoulder blade pain; left arm pain and left jaw pain as described above. She denies any nausea; any vomiting or sweating. At home she took nitroglycerin that relieved her pain. However, because the pain in the left shoulder blade; left arm and left jaw was coming back pain and because her systolic blood pressure was 172 she came to emergency department. At the emergency department she received nitroglycerin on 2 separate occasions and all those occasions her pain went away. While at the emergency department cardiology was consulted. 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 But although her troponin remained negative, her eft shoulder blade pain; left arm pain and left jaw pain came back for which a decision was made to admit patient. Of note in March 2019 she was found to have an in-stent stenosis for which she had angioplasty. She reported she has been started on Xarelto because of her history of CAD. Her mother from [place] few days before she (patient's mother) turned 64 Past Medical History Past Medical History (Chronic Problems): Chronic Problems (Last Reviewed 05/26/19 @ 08:36 by Debbie Chavez) History of percutaneous transluminal coronary angioplasty (Chronic ~04/16/19) PTCA/NO stent to mid RCA 04/16/19 Angina pectoris (Chronic) ABDIAS (obstructive sleep apnea) (Chronic) Initial AHI 35.5 Nonrheumatic mitral (valve) insufficiency (Chronic) Nonrheumatic aortic (valve) insufficiency (Chronic) Nonrheumatic aortic (valve) stenosis (Chronic) Carotid artery disease (Chronic) Atherosclerotic heart disease of [place] coronary artery without angina pectoris (Chronic) Previous LEANDER to proximal to mid LAD 3.0 X 32 mm Taxus 02/23/[address] Daquan Meyer, [facility];LEANDER to mid RCA 2.5 X 24 mm Synergy 01/19/[address] [facility]; PTCA/LEANDER of the mid LCX 03/10/[address] Torrez [facility]; Successful PTCA/LEANDER mid RCA with a 2.0 x 12balloon, followed by a 2.0 x 10 Angiosculpt, followed by a 2.5 x 16 Promus Synergy, post dilated with a 2.5 x 8 NC Balloon; 85%-->0%, no dissection 07/22/2018; PTCA/LEANDER to mid RCA instent restenosis 11/13/18; PTCA/NO stent to mid RCA 04/16/19 Presence of stent in coronary artery (Chronic ~11/13/18) Previous LEANDER to proximal to mid LAD 3.0 X 32 mm Taxus 02/23/[address] Daquan Meyer, [facility];LEANDER to mid RCA 2.5 X 24 mm [facility] [facility]; PTCA/LEANDER of the mid LCX 03/10/[address] Torrez [facility]; Successful PTCA/LEANDER mid RCA with a 2.0 x 12balloon, followed by a 2.0 x 10 Angiosculpt, followed by a 2.5 x 16 Promus Synergy, post dilated with a 2.5 x 8 NC Balloon; 85%-->0%, no dissection 07/22/2018; PTCA/LEANDER to mid RCA instent restenosis 11/13/18; PTCA/NO stent to mid RCA 04/16/19 CAD (coronary artery disease) (Chronic) Valvular heart disease (Chronic) Hypothyroidism (Chronic) Hyperlipidemia (Chronic) HTN (hypertension), benign (Chronic) Medical History: Medical History (Last Reviewed 05/27/19 @ 04:07 by Jono Alex MD) Nonrheumatic mitral (valve) insufficiency (Chronic) I34.0 Nonrheumatic aortic (valve) insufficiency (Chronic) I35.1 Nonrheumatic aortic (valve) stenosis (Chronic) I35.0 Carotid artery disease (Chronic) I77.9 Atherosclerotic heart disease of [place] coronary artery without angina pectoris (Chronic) I25.10 Previous LEANDER to proximal to mid LAD 3.0 X 32 mm Taxus 02/23/[address] Daquan Meyer, [facility];LEANDER to mid RCA 2.5 X 24 mm Synergy 01/19/[address] Patel,[facility]; PTCA/LEANDER of the mid LCX 03/10/[address] Torrez [facility]; Successful PTCA/LEANDER mid RCA with a 2.0 x 12balloon, followed by a 2.0 x 10 Angiosculpt, followed by a 2.5 x 16 Promus Synergy, post dilated with a 2.5 x 8 NC Balloon; 85%-->0%, no dissection 07/22/2018; PTCA/LEANDER to mid RCA instent restenosis 11/13/18; PTCA/NO stent to mid RCA 04/16/19 CAD (coronary artery disease) (Chronic) I25.10 Valvular heart disease (Chronic) I38 Hypothyroidism (Chronic) E03.9 Hyperlipidemia (Chronic) E78.5 HTN (hypertension), benign (Chronic) I10 Aortic insufficiency (Inactive) I35.1 Allergies Iodinated Contrast Media [Iodinated Contrast- Oral and IV Dye] Allergy (Intermediate, Verified 05/26/19 20:33) Rash ramipril [From Altace] Adverse Reaction (Severe, Verified 05/26/19 20:33) cough Home Medications: Ambulatory Orders Medication Instructions Recorded levothyroxine 88 mcg tablet 88 mcg PO DAILY 90 Days 06/10/17 Ascorbic Acid [Vitamin C] 500 mg PO DAILY 01/16/18 Folic Acid 0.4 mg PO DAILY@0800 01/16/18 Ubidecarenone [Co Q-10] 100 mg PO DAILY 03/09/18 atorvastatin 40 mg tablet 40 mg PO DAILY 90 Days #90 tab 08/07/18 Aspirin E.C. [Ecotrin] 81 mg PO DAILY@0800 11/12/18 Calcium Citrate 200 mg PO DAILY 11/12/18 Calcium Citrate 400 mg PO DAILY@1200 11/12/18 Losartan Potassium [Cozaar] 50 mg PO BID 11/12/18 Multivitamins,Therapeutic 1 tab PO DAILY 11/12/18 [Multivitamin] [place]-3 Fatty Acids/Fish Oil [Fish 1 cap PO BID 11/12/18 Oil 1,000 mg Capsule] Potassium Chloride [K-Tab ER] 10 meq PO DAILY 11/12/18 Triamterene 37.5MG/Hctz 25MG 1 cap PO DAILY 11/12/18 [Dyazide (G)] nitroglycerin 0.4 mg sublingual 0.4 mg SUBLINGUAL Q5-15M PRN 10 12/01/18 tablet Days #25 tab clopidogrel 75 mg tablet 75 mg PO DAILY #90 tab 02/12/19 carvedilol 12.5 mg tablet 12.5 mg PO BID #60 tab 05/17/19 isosorbide mononitrate ER 30 mg 30 mg PO DAILY #30 tab 05/17/19 tablet,extended release 24 hr rivaroxaban 2.5 mg tablet 2.5 mg PO ONCE #60 tab 05/19/19 Surgical History: Surgical History (Last Reviewed 05/27/19 @ 04:07 by Jono Alex MD) Presence of stent in coronary artery (Chronic) Onset Date: ~11/13/18 Z95.5 Previous LEANDER to proximal to mid LAD 3.0 X 32 mm Taxus 02/23/[address] Daquan Meyer, [facility];LEANDER to mid RCA 2.5 X 24 mm Synergy 01/19/[address] Patel,[facility]; PTCA/LEANDER of the mid LCX 03/10/[address] 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 AVIONICS SYSTEMS ENGINEER history Lives: Spouse/ Significant Other Smoking Status: Never smoker - *Family History Maternal Family History: Family History (Last Reviewed 05/27/19 @ 04:07 by Jono Alex MD) Mother Myocardial infarction Father Colon cancer History Items: Heart Disease - [place] Paternal Family History: Family History (Last Reviewed 05/27/19 @ 04:07 by Jono Alex MD) Mother Myocardial infarction Father Colon cancer History Items: Cancer - colon Review of Systems Constitutional: Denies: Chills, Fever, Weight Change HEENT: Denies: Head Aches, Sinus Congestion, Sinus Drainage Cardiovascular: Reports: Chest Pain. Denies: Palpitations Respiratory: Denies: Cough, Shortness of breath at rest, Sputum production Gastrointestinal: Denies: Abdominal Pain, Nausea, Vomiting Genitourinary: Denies: Dysuria Musculoskeletal: Reports: Arm Pain, Shoulder Pain. Denies: Joint Pain, Joint Tenderness Skin: Denies: Rash, Wounds Neurological: Denies: Numbness, Tingling, Focal weakness Psychiatric: Denies: Anxiety, Depression, Homicidal Ideations, Suicidal Ideations Hematologic/ Lymphatic: Denies: Easy Bruising, Easy Bleeding VTE Information - Inpt Only VTE Present on Admission: No VTE Mechan Device Prophylaxis: SCD's VTE Pharm Prophylaxis ordered?: No - Physical Exam Vitals/I&O's: Vital Signs Temp Pulse Resp BP Pulse Ox 98 F 53 L 13 174/57 H 95 05/26/19 20:33 05/26/19 23:03 05/26/19 23:03 05/26/19 23:03 05/26/19 23:03 Oxygen Delivery Method Room Air Weight: 78.1 kg Body Mass Index (BMI) 31.4 General: Alert, Oriented x3, Cooperative HEENT: Atraumatic, PERRLA, EOMI, Normocephalic Neck: Supple, Trachea Midline Lungs: Clear to auscultation, Normal air movement Cardiovascular: Regular rate, Normal S1, Normal S2, Murmur Abdomen: Bowel Sounds Present, Soft, Non Tender Extremities: No edema, Capillary Refill Less than 3 Seconds Skin: No rashes, No breakdown Musculoskeletal: No Tenderness to Palpation of Joints or Extremities Neurological: Cranial nerves II-XII grossly intact Psych/Mental Status: Normal Affect, Appropriate Laboratory Results 05/26/19 20:40: WBC 9.7, RBC 4.27, Hgb 12.7, Hct 38.3, MCV 89.7, MCH 29.7, MCHC 33.2, RDW Std Deviation 44.9 H, RDW Coeff of Martha 13.8, Plt Count 224, MPV 10.2, Immature Gran % (Auto) 0.400, Neut % (Auto) 65.6, Lymph % (Auto) 21.4, [place] % (Auto) 10.0, Eos % (Auto) 2.0, Baso % (Auto) 0.6, Absolute Neuts (auto) 6.4, Absolute Lymphs (auto) 2.08, Nucleated RBC % 0 05/26/19 20:40: PT 14.6, INR 1.2 05/26/19 20:40: Sodium 138, Potassium 4.0, Chloride 106, Carbon Dioxide 26.0, Anion Gap 6, BUN 27 H, Creatinine 1.15 H, Estim Creat Clear Calc 30.34, Est GFR (MDRD) Af Amer 58 L, Est GFR (MDRD) Non-Af 48 L, BUN/Creatinine Ratio 23.5 H, Glucose 171 H, Calcium 9.4, Troponin I < 0.015 05/26/19 23:35: Troponin I < 0.015 Current Medications Nitroglycerin (Nitrostat) 0.4 mg SUBLINGUAL Q5M PRN PRN Reason: Chest pain Last Admin: 05/26/19 21:01 Dose: 0.4 mg Documented by: Assessment/Plan All Active Problems (Last Reviewed 05/26/19 @ 08:36 by Debbie Chavez) Chest pain (Acute) Anginal equivalent (Acute) The patient is a 83 year old F with a significant history of hypertension; CAD status post 7 stents with last angioplasty in March 2019 who presented to the emergency department with left shoulder blade pain; left arm pain and left jaw pain; after an earlier episode of chest pain consistent with angina equivalent. Angina equivalent Place on a monitored bed at PCU CXR independently reviewed confirms no acute cardiopulmonary process. EKG independently reviewed confirms no ST or T wave abnormalities. It showed left ventricular hypertrophy and sinus bradycardia. ASA 81 mg p.o. daily continued. Plavix continued. Xarelto continued. Coreg; Imdur and losartan continued. SL NTG 0.4 mg prn as needed for chest pain. Consider nitroglycerin paste if her symptoms recur. Serial cardiac enzymes Stat EKG as needed for chest pain We will consult cardiology DVT prophylaxis ordered. Hypertension On presentation her blood pressure was not within goal. Coreg; Imdur and losartan continued. Trend blood pressure and adjust blood pressure medications as necessary. Sinus bradycardia Patient noted to have heart rates going into the lower 50s. We will continue Coreg since she is asymptomatic from it. DVT prophylaxis: Continue home Xarelto of 2.5 mg daily. Add SCDs. Code Visit OBSV E&M: [id number] Initial observation care L2
[2019-05-27] MEDS: Nitroglycerin SL (ED/IMG/CATH) 0.4 MG TABLET SUBLINGUAL (00:16)
--- NOTE | 2019-05-27 00:17 | ED.RN ---
Updated Dr. Lemos about pts pain, of 08/23. He cancelled discharge papers and will admit pt. New medications ordered. PT notified of admission. She feels better with admission than going home. Pending admission
--- NOTE | 2019-05-27 01:34 | EKG12_ITS ---
Test Reason : POST PCI Blood Pressure : / mmHG Vent. Rate : 059 BPM Atrial Rate : 059 BPM P-R Int : 148 ms QRS Dur : 086 ms QT Int : 422 ms P-R-T Axes : 074 012 022 degrees QTc Int : 417 ms Sinus bradycardia Nonspecific ST abnormality Abnormal ECG No previous ECGs available Confirmed by IVA WYNN, DANA ([id number]), graphics editor JANETT MURPHY ([id number]) on 06/02/2019 11:47:37 AM Referred By: Jono Alex Confirmed By:DANA ENRIQUE MD
[2019-05-27] MEDS: Levothyroxine 88 MCG Tablet PO (05:07)
[2019-05-27 06:46] LABS: Bedside Glucose 109 mg/dL (70-110)
--- NOTE | 2019-05-27 08:52 | PCM.CONS.C ---
Problem List (1) Angina pectoris Status: Chronic (2) CAD (coronary artery disease) Status: Chronic Qualifiers: Coronary Disease-Associated Artery/Lesion type: unspecified vessel or lesion type [place] vs. transplanted heart: unspecified whether [place] or transplanted heart Associated angina: angina presence unspecified Qualified Code(s): I25.10 - Atherosclerotic heart disease of wiyot coronary artery without angina pectoris (3) Presence of stent in coronary artery Status: Chronic Comment: Previous LEANDER to proximal to mid LAD 3.0 X 32 mm Taxus 02/23/[address] Daquan Meyer, [facility];LEANDER to mid RCA 2.5 X 24 mm Synergy 01/19/[address] Patel,[facility]; PTCA/LEANDER of the mid LCX 03/10/[address] Torrez [facility]; Successful PTCA/LEANDER mid RCA with a 2.0 x 12balloon, followed by a 2.0 x 10 Angiosculpt, followed by a 2.5 x 16 Promus Synergy, post dilated with a 2.5 x 8 NC Balloon; 85%-->0%, no dissection 07/22/2018; PTCA/LEANDER to mid RCA instent restenosis 11/13/18; PTCA/NO stent to mid RCA 04/16/19 (4) Valvular heart disease Status: Chronic (5) Hyperlipidemia Status: Chronic Qualifiers: Hyperlipidemia type: pure hypercholesterolemia Qualified Code(s): E78.00 - Pure hypercholesterolemia, unspecified (6) HTN (hypertension), benign Status: Chronic Reason for Consult Date of Consultation: 05/27/19 History of Present Illness: The patient is a 83 year old white female with a history of CAD, PCI (LAD, LCx, and RCA), valvular heart disease, hyperlipidemia, and hypertension who presents for recurrent chest discomfort compatible with angina pectoris-unstable. The patient most recently was evaluated on 04-15-19 in cardiovascular consultation for similar type findings. She subsequently underwent repeat cardiac catheterization that demonstrated RCA in-stent restenosis for which she underwent repeat catheter-based PCI. She has been participating in cardiac rehabilitation. She states yesterday in cardiac rehabilitation, for period of time on the bicycle, she noted chest discomfort in the central part of her chest. She states that as no alarms or alerts when off with respect to her vital signs are her monitor she did not complain of her discomfort. She noted later it seemed to be absent once she transitioned to other types of exercise devices. However yesterday evening she noted the onset of symptoms that she has had in the past which correlated with her underlying CAD process. This included left scapular pain, left upper extremity pain, and left neck/jaw pain. She did use nitroglycerin sublingual x2 at home and gained relief of symptoms. She subsequently presented to the emergency department for further evaluation. Based upon her ongoing concerns she was brought into the hospital for continued evaluation and monitoring. She states overall she has felt better. As in the past she states sometimes she senses that there is a low-lying discomfort in the background that remains. She has had no associated acute nausea, emesis, or diaphoresis. There has been no ongoing orthopnea or PND or peripheral pitting edema. There has been no near syncope or syncope. Her cardiac enzymes have remained negative. Her ECG is demonstrated sinus rhythm with no acute ECG changes. She has been on medical management at home which has included aspirin therapy, antiplatelet therapy, low-dose anticoagulant therapy with Xarelto 2.5 mg daily, along with her nitrates, beta-blockers, ARB's, and lipid-lowering agents. She states she has been checking her blood pressure at home. She notes at home her blood pressures with respect to systolic blood pressures have been normal or occasionally low. She notes in cardiac rehab her blood pressures were somewhat higher. Her blood pressures were elevated upon arrival at the hospital which has been similar to previous hospitalizations. She notes that she had been on additional antihypertensive therapy with amlodipine in the past. She states although it may have worked for her blood pressure she felt as if she could not navigate while taking it. Without it she felt much better. [] Past Medical History Allergies/Adverse Reactions: Allergies Iodinated Contrast Media [Iodinated Contrast- Oral and IV Dye] Allergy (Intermediate, Verified 05/26/19 20:33) Rash ramipril [From Altace] Adverse Reaction (Severe, Verified 05/26/19 20:33) cough Home Medications: Ambulatory Orders Medication Instructions Recorded levothyroxine 88 mcg tablet 88 mcg PO DAILY 90 Days 06/10/17 Ascorbic Acid [Vitamin C] 500 mg PO DAILY 01/16/18 Folic Acid 0.4 mg PO DAILY@0800 01/16/18 Ubidecarenone [Co Q-10] 100 mg PO DAILY 03/09/18 atorvastatin 40 mg tablet 40 mg PO DAILY 90 Days #90 tab 08/07/18 Aspirin E.C. [Ecotrin] 81 mg PO DAILY@0800 11/12/18 Calcium Citrate 200 mg PO DAILY 11/12/18 Calcium Citrate 400 mg PO DAILY@1200 11/12/18 Losartan Potassium [Cozaar] 50 mg PO BID 11/12/18 Multivitamins,Therapeutic 1 tab PO DAILY 11/12/18 [Multivitamin] [place]-3 Fatty Acids/Fish Oil [Fish 1 cap PO BID 11/12/18 Oil 1,000 mg Capsule] Potassium Chloride [K-Tab ER] 10 meq PO DAILY 11/12/18 Triamterene 37.5MG/Hctz 25MG 1 cap PO DAILY 11/12/18 [Dyazide (G)] nitroglycerin 0.4 mg sublingual 0.4 mg SUBLINGUAL Q5-15M PRN 10 12/01/18 tablet Days #25 tab clopidogrel 75 mg tablet 75 mg PO DAILY #90 tab 02/12/19 carvedilol 12.5 mg tablet 12.5 mg PO BID #60 tab 05/17/19 isosorbide mononitrate ER 30 mg 30 mg PO DAILY #30 tab 05/17/19 tablet,extended release 24 hr rivaroxaban 2.5 mg tablet 2.5 mg PO ONCE #60 tab 05/19/19 Past Medical History (Chronic Problems): Chronic Problems (Last Reviewed 05/27/19 @ 04:07 by Jono Alex MD) History of percutaneous transluminal coronary angioplasty (Chronic ~04/16/19) PTCA/NO stent to mid RCA 04/16/19 Angina pectoris (Chronic) ABDIAS (obstructive sleep apnea) (Chronic) Initial AHI 35.5 Nonrheumatic mitral (valve) insufficiency (Chronic) Nonrheumatic aortic (valve) insufficiency (Chronic) Nonrheumatic aortic (valve) stenosis (Chronic) Carotid artery disease (Chronic) Atherosclerotic heart disease of wiyot coronary artery without angina pectoris (Chronic) Previous LEANDER to proximal to mid LAD 3.0 X 32 mm Taxus 02/23/[address] Daquan Meyer, [facility];LEANDER to mid RCA 2.5 X 24 mm Synergy 01/19/[address] Patel,[facility]; PTCA/LEANDER of the mid LCX 03/10/[address] Torrez [facility]; Successful PTCA/LEANDER mid RCA with a 2.0 x 12balloon, followed by a 2.0 x 10 Angiosculpt, followed by a 2.5 x 16 Promus Synergy, post dilated with a 2.5 x 8 NC Balloon; 85%-->0%, no dissection 07/22/2018; PTCA/LEANDER to mid RCA instent restenosis 11/13/18; PTCA/NO stent to mid RCA 04/16/19 Presence of stent in coronary artery (Chronic ~11/13/18) Previous LEANDER to proximal to mid LAD 3.0 X 32 mm Taxus 02/23/[address] Daquan Meyer, [facility];LEANDER to mid RCA 2.5 X 24 mm Synergy 01/19/[address] Patel,[facility]; PTCA/LEANDER of the mid LCX 03/10/[address] Torrez [facility]; Successful PTCA/LEANDER mid RCA with a 2.0 x 12balloon, followed by a 2.0 x 10 Angiosculpt, followed by a 2.5 x 16 Promus Synergy, post dilated with a 2.5 x 8 NC Balloon; 85%-->0%, no dissection 07/22/2018; PTCA/LEANDER to mid RCA instent restenosis 11/13/18; PTCA/NO stent to mid RCA 04/16/19 CAD (coronary artery disease) (Chronic) Valvular heart disease (Chronic) Hypothyroidism (Chronic) Hyperlipidemia (Chronic) HTN (hypertension), benign (Chronic) Surgical History: angioplasty, cholecystectomy, - - Cardiac stents in 2003, one stent in January 2018, one stent in March 2018, one stent in July 2018 Psychiatric History: No pertinent psych hx 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 [employer] 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[employer] 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 history - *Family History Maternal Family History: Family History (Last Reviewed 05/27/19 @ 04:07 by Jono Alex MD) Mother Myocardial infarction Father Colon cancer History Items: Heart Disease - [place] Paternal Family History: Family History (Last Reviewed 05/27/19 @ 04:07 by Jono Alex MD) Mother Myocardial infarction Father Colon cancer History Items: Cancer - colon Lives: Spouse/ Significant Other Smoking Status: Never smoker Review of Systems - Review of Systems General: Denies: Fever, Night Sweats, Fatigue Cardiovascular: Reports: Chest Discomfort, Chest Discomfort at Rest, Chest Discomfort with Exertion Respiratory: Denies: Cough, Sputum Production, Hemoptysis Gastrointestinal: Denies: Hematemesis, Hematochezia, Melena Genitourinary: Denies: Dysuria, Hematuria Skin: Denies: Rash Subjectve: This is an 83-year-old white female who appears to be resting comfortably at the moment in no acute distress. Objective: Vital Signs Temp Pulse Resp BP Pulse Ox 98.1 F 53 L 16 156/76 H 92 05/27/19 05:05 05/27/19 06:48 05/27/19 05:05 05/27/19 05:05 05/27/19 05:05 Oxygen Delivery Method Room Air Weight: 167 lb 15.876 oz Body Mass Index (BMI) 30.7 Intake and Output for Last 24 Hours 05/25/19 05/26/19 05/27/19 23:59 23:59 23:59 Intake Total 120 / 120 Balance 120 / 120 General: Awake, Alert, Oriented x 3, Cooperative, No Acute Distress HEENT: Atraumatic, Normocephalic, PERRL, EOMI, Sclera Non Icteric Oral: Moist Mucosa Neck: Supple, Good ROM Lungs: Clear to auscultation Cardiovascular: Regular Rhythm, Normal S1, Normal S2 Murmur Murmur: Grade 3/6, Harsh, Mid Systolic, LLSB, LVOT, Sternal Notch Vascular: No Carotid Bruits Abdomen: Bowel Sounds Present, Soft, Non Tender Extremities: No Cyanosis, No Clubbing, No edema Neurological: No Focal Motor or Sensory Deficit Psych/Mental Status: Appropriate 05/26/19 20:40: WBC 9.7, RBC 4.27, Hgb 12.7, Hct 38.3, MCV 89.7, MCH 29.7, MCHC 33.2, Plt Count 224, MPV 10.2, Immature Gran % (Auto) 0.400, Neut % (Auto) 65.6, Lymph % (Auto) 21.4, [place] % (Auto) 10.0, Eos % (Auto) 2.0, Baso % (Auto) 0.6, Absolute Neuts (auto) 6.4, Nucleated RBC % 0 05/26/19 20:40: PT 14.6, INR 1.2 05/26/19 20:40: Sodium 138, Potassium 4.0, Chloride 106, Carbon Dioxide 26.0, Anion Gap 6, BUN 27 H, Creatinine 1.15 H, Est GFR (MDRD) Af Amer 58 L, Est GFR (MDRD) Non-Af 48 L, BUN/Creatinine Ratio 23.5 H, Glucose 171 H, Calcium 9.4, Troponin I < 0.015 05/26/19 23:35: Troponin I < 0.015 05/27/19 02:38: Troponin I < 0.015 Rhythm: Sinus rhythm EKG: Sinus rhythm; no acute ECG changes ECHO: 03-23-18 Left ventricle normal with an estimated LV of 65% Mild left atrial enlargement Mild to moderate mitral calcification Mild MR Mild to moderate TR Aortic valve sclerosis/mild aortic valve stenosis Mild AI Estimated RV systolic pressure 20 mmHg Decreased diastolic compliance Stress Test: Stress Test Report Date: 04-15-19 Procedure: Pharmacologic stress nuclear imaging study Indications: Chest pain; CAD; PCI Consent: Per the patient Procedure: The patient underwent pharmacologic (Regadenoson) evaluation with a peak heart rate of 86 beats per minute (61 %predicted maximal heart rate) and a peak blood pressure of 194/68 mmHg. The baseline ECG demonstrated normal sinus rhythm. The peak pharmacologic ECG demonstrated no obvious ECG changes, however, in recovery there was notation of approximately 0.5 to 1.[address] segment depression in leads II, III, aVF and approximately 0.[address] segment depression in leads V4 through V6 with gradual resolution towards baseline in recovery.. There were no cardiac dysrhythmias pretest, during pharmacologic infusion, or recovery. The patient noted chest discomfort during pharmacologic infusion and recovery with subsequent spontaneous resolution in recovery. The examination was discontinued secondary to completion of protocol. Impression: 1. Pharmacologic (Regadenoson) evaluation 2. Peak pharmacologic ECG with approximately 0.5 to 1.[address] segment depression in leads II, III, aVF, and approximately 0.[address] segment depression in leads V4 through V6 in recovery with subsequent gradual resolution towards baseline in recovery. 3. There were no cardiac dysrhythmias pretest, during pharmacologic infusion, or recovery. 4. Nuclear images pending Myocardial perfusion imaging study: Technique: The patient was injected with 12.0 millicuries of technetium 99m Cardiolite and subsequently rest SPECT Cardiolite nuclear imaging was obtained in the horizontal long, vertical long, and short axis views. The patient underwent pharmacologic (Regadenoson) evaluation with a peak heart rate of 86 beats per minute (61 % percent predicted maximal heart rate) and a peak blood pressure of 194/68 mmHg. The patient was injected with 36.0 millicuries of technetium 99m Cardiolite and subsequently stress SPECT Cardiolite nuclear imaging was obtained in the horizontal long, vertical long, and short axis views. A gated Cardiolite study at peak stress was obtained. Interpretation: Rest and stress SPECT Cardiolite nuclear imaging status post realignment, normalization, and attenuation correction demonstrate at rest the appearance of relative uniform tracer uptake. Status post stress there is a small area of diminished tracer uptake in the basal/mid inferior septal/inferior segments. There are similar type findings on the resting/stress polar map images. There is end systolic thickening and brightening. The gated Cardiolite study demonstrates myocardial thickening and inward wall motion. The reported LVEF is 75 %. Impression: 1. Rest and stress SPECT Cardiolite nuclear imaging demonstrate post stress a small area of diminished tracer/perfusion uptake in the basal/mid inferior septal/inferior segments concerning for an area of stress-induced myocardial ischemia. 2. The gated Cardiolite study reports an LVEF of 75 %. Cardiac Cath: 04-16-2019 CORONARY ANGIOGRAPHY DOMINANCE: Right Dominant LEFT HEART ASSESSMENT Left Ventricular Ejection Fraction: by LV Gram 65 % Normal LV wall motion Elevated Left Ventricular End Diastolic Pressure LVEDP: 19 mmHg LEFT MAIN: Mild luminal irregularities LEFT ANTERIOR DESCENDING ARTERY: PROX LAD: Previously placed stent is patent MID LAD: Previously placed stent is patent, Mild luminal irregularities CIRCUMFLEX ARTERY: PROX CIRC: Mild calcification, eccentric: hazy: 25 % Stenosis MID CIRC: Previously placed stent is patent RIGHT CORONARY ARTERY: PROX RCA: Previously placed stent is patent with mild luminal irregularities MID RCA: Previously placed stent has an instent 95 % restenosis DISTAL RCA: Mild luminal irregularities VALVE FINDINGS: Mitral Valve Insufficiency - Grade 1 (catheter / PVC induced) AORTIC ROOT: Angiographically normal PCI: 04-16-19 CONCLUSIONS Successful PCI with PTCA to the ISR of RCA Chest x-ray: No acute cardiopulmonary disease process appreciated: Please see official report Assessment/Plan 1. Angina pectoris-unstable At the present time the patient presents with recurrent symptoms of her angina pectoris initially occurring with exercise during cardiac rehab but then occurring at rest at home. Her noninvasive evaluation has been unremarkable thus far. Her case has been reviewed. She has been recommended consider repeat evaluation in the cardiac catheterization laboratory. Procedure and risks have been discussed with her. She was agreeable to this approach. In preparation for this she will undergo IV contrast dye allergy premedications and be without her anticoagulant therapy Xarelto. Thus her procedure will be tentatively scheduled for 05-28-19 barring a change in her clinical course. In the meantime she will continue to be monitored and continue medical management. 2. CAD status post multivessel PCI At the present time the patient will continue medical management. Her nitrates will be advanced. She will be scheduled for upcoming diagnostic cardiac catheterization as described above. 3. Valvular heart disease The patient has undergone evaluation in the past with transthoracic echocardiogram. She will continue to be followed by history, exam, and echocardiogram as deemed appropriate. 4. Hyperlipidemia The patient will continue lipid-lowering management. 5. Hypertension The patient states that her blood pressures have been under good control at home. However when she presents to the hospital her blood pressures have been elevated. Thus, this may be secondary to her event/symptoms. At the present time her blood pressures will be followed and her medications will be adjusted as tolerated. This note was generated using a voice recognition system and there may be incorrect words, spelling or punctuation that were not noted when reviewing the office note prior to saving.
[2019-05-27] MEDS: Calcium Carbonate 500 MG Tablet PO (09:05)
[2019-05-27] MEDS: Clopidogrel Bisulfate 75 MG Tablet PO (09:05)
[2019-05-27] MEDS: Ascorbic Acid 500 MG Tablet PO (09:05)
[2019-05-27] MEDS: Triamterene 37.5MG/Hctz 25MG Capsule 1 CAP PO (09:05)
[2019-05-27] MEDS: Omega-3 Acid Ethyl Esters 1 GM Capsule PO ×2 (09:05→16:56)
[2019-05-27] MEDS: Carvedilol 12.5 MG Tablet PO ×2 (09:05→21:28)
[2019-05-27] MEDS: Aspirin E.C. 81 MG Tablet PO (09:05)
[2019-05-27] MEDS: Losartan Potassium 50 MG Tablet PO ×2 (09:06→21:30)
[2019-05-27] MEDS: Folic Acid 1 MG Tablet 0.5 MG PO (09:06)
[2019-05-27] MEDS: Multivitamins,Therapeutic Tablet 1 TABLET PO (09:07)
[2019-05-27] MEDS: Isosorbide Mononitrate 60 MG Tablet PO (09:53)
[2019-05-27 10:56] LABS: Bedside Glucose 171 mg/dL (70-110)
[2019-05-27] MEDS: Calcium Carbonate 500 MG Tablet 1000 MG PO (12:10)
--- NOTE | 2019-05-27 15:51 | NURSING ---
This RN taking over patient care at this time. Handoff received from Vineet Lemons RN
--- NOTE | 2019-05-27 16:54 | PCM.HOSP.N ---
Hospitalist Note Patient was seen and examined today briefly, she is having no chest discomfort or shortness of breath. It appears the plan is for the patient to have a cardiac catheterization tomorrow. Patient has no questions for this examiner at this point.
[2019-05-27 17:05] LABS: Bedside Glucose 122 mg/dL (70-110)
[2019-05-27] MEDS: Atorvastatin Calcium 40 MG Tablet PO (21:28)
[2019-05-27] MEDS: Famotidine 20 MG Tablet PO (21:28)
[2019-05-27] MEDS: DiphenhydrAMINE 25 MG Capsule 50 MG PO (21:28)
[2019-05-27] MEDS: predniSONE 20 MG Tablet 60 MG PO (21:29)
[2019-05-27 21:56] LABS: Bedside Glucose 133 mg/dL (70-110)
[2019-05-28] VITALS (27 sets, daily range): BP systolic 128–183; BP diastolic 34–91; PULSE 60–77; RESP 14–71; TEMP 36.6–36.7; O2SAT 16–97
--- NOTE | 2019-05-28 05:55 | EKG12_ITS ---
Test Reason : PCI Blood Pressure : / mmHG Vent. Rate : 070 BPM Atrial Rate : 070 BPM P-R Int : 154 ms QRS Dur : 084 ms QT Int : 424 ms P-R-T Axes : 072 000 034 degrees QTc Int : 457 ms Normal sinus rhythm Normal ECG Confirmed by LEO WYNN, PORTIA ([id number]), research editor JANETT MURPHY ([id number]) on 06/02/2019 1:12:29 PM Referred By: Jono Alex Confirmed By:PORTIA BAILEY MD
[2019-05-28] MEDS: Levothyroxine 88 MCG Tablet PO (06:43)
[2019-05-28] MEDS: predniSONE 20 MG Tablet 60 MG PO ×2 (06:43→21:09)
[2019-05-28] MEDS: Carvedilol 12.5 MG Tablet PO ×2 (06:44→21:09)
[2019-05-28] MEDS: Aspirin E.C. 81 MG Tablet PO (06:44)
[2019-05-28] MEDS: Isosorbide Mononitrate 60 MG Tablet PO ×2 (06:45→10:22)
[2019-05-28] MEDS: Clopidogrel Bisulfate 75 MG Tablet PO (06:45)
[2019-05-28] MEDS: Losartan Potassium 50 MG Tablet PO ×2 (06:45→21:11)
[2019-05-28] MEDS: Famotidine 20 MG Tablet PO ×2 (06:47→21:11)
[2019-05-28] MEDS: 0.9% Saline Lock 10 ML Syringe IV (06:56)
[2019-05-28] MEDS: 0.9% Normal Saline 1,000 ML 15 ML IV (07:26)
[2019-05-28] MEDS: DiphenhydrAMINE 25 MG Capsule 50 MG PO (07:26)
[2019-05-28 08:36] LABS: Bedside Glucose 164 mg/dL (70-110)
--- NOTE | 2019-05-28 09:26 | CL.I_ITS ---
Patient Name: PRECIOUS LEIGH Study Date: 05/28/2019 Performing: Olvin Patel MD Ht: 62 inches 157 cm : 1935 Wt: 167.8 lbs 76 kg Age: 83 Gender: female BSA: 1.77 PROCEDURE(S) PERFORMED [id number]-[id number] W OR WO PTCA, SINGLE CORONARY ARTERY CLINICAL PROFILE AND CO-MORBIDITIES Indications: ACS <= 24 hrs, New Onset Angina <= 2 months, Stable Known CAD Heart Failure: None Stress/Imaging Stress/Image Study Performed: No CAD Presentations: Unstable angina. Comorbidities/Risk Factors: Hypertension Dyslipidemia Prior PCI CONCLUSIONS Successful PTCA/LEANDER mid RCA with a 2.0 x 10 Angiosculpt, followed with a 2.5 x 14 Resolute LEANDER, post dilated with a 2.5 x 12 NC balloon; 85%-->0%, no dissection. RECOMMENDATIONS Highly recommend quitting all tobacco products Follow up with primary bread wrapper operator Risk factor modification ASA Indefinitley Plavix for at least 12 months Routine post interventional care Refer for Outpatient Cardiac Rehab Manual sheath removal per protocol Follow up with Dr. Madera Successful Mynx Closure of RFA. If pt has recurrent ISR of RCA after this stent, would recommend CABG to RCA +/- OM. D/w Dr Madera. DESCRIPTION OF PROCEDURE The patient arrived to the procedure lab. The risks and benefits of the procedure as well as a full d escription of our services here and current unavailability of surgical backup were fully explained to the patient and/or their significant other prior to the catheterization. The Timeout was completed, verifying the correct patient and procedure. The patient's procedural site was prepped and draped in the usual fashion. Local anesthetic was given subcutaneously to right groin region with Lidocaine 2% Using a modified Seldinger technique,arterial access was obtained via the right femoral artery, a 4Fr sheath was inserted Left Coronary Artery selective angiography was performed in multiple views using a 4 Fr. JL5 catheter. Right Coronary Artery selective angiography was then performed in multiple vie ws using a 4 Fr. 3DRC catheter. Left Ventriculography was performed in BECERRA projection using a 4 Fr.pi gtail. LV to AO pullback pressures were then recorded.The images were reviewed and options discussed. A decision was then made to proceed with an Intervention, IVUS or other adjunct procedure. Arterial sheath was exchanged for a 6 Fr Sheath. HS II Guide catheter was inserted and engaged in to the RCA. BMW Guide wire was advanced to the RCA. Emerge 2.00x12 Balloon catheter was inserted. PTC A balloon inflated at 10 atms for 13 secs. Angiogram performed post balloon dilatation. Angiosculpt 2 .0x10 scoring balloon catheter was inserted PTCA balloon inflated at 10 atms for 10 secs. PTCA balloo n inflated at 12 atms for 11 secs. PTCA balloon inflated at 12 atms for 15 secs. Angiogram performed post balloon dilatation. Resolute 2.5x14 Drug Eluting stent was inserted. Angiogram performed post st ent deployment. NC Emerge 2.50x12 Balloon catheter was inserted. Angiogram performed post balloon dil atation. Contrast was injected through the sheath and the Right Iliac and Femoral artery were assesse d for possible closure device. The arterial sheath was pulled and a Mynx closure device was deployed for hemostasis INTERVENTION INFORMATION LESION SITE: RCA (Mid) Lesion Complexity: Non-High/Non-C, lesion at bifurcation: No, thrombus present: No, lesion length: 14 mm, culprit lesion: Yes Pre Stenosis: 85 % Pre intervention LUIS flow: 3 PROCEDURE: Drug Eluting Stent with pre and post dilatation, Cutting Balloon Angioplasty Post Stenosis: 0 % Post intervention LUIS flow: 3 Lesion Devices: Medtronic 6 Fr HSII 100cm Guide Catheter [place] .014 BMW [place] Straight 190cm Willie Sci EMERGE MR 2.00x12 BALLOON [employer] Angiosculpt RX 2.0x10 Scoring Balloon Medtronic Resolute RX LEANDER 2.5x14 Willie Sci NC EMERGE MR 2.50x12 BALLOON COMPLICATIONS No Complications PROCEDURE MEDICATIONS Versed 1 mg IV Versed 1 mg IV Oxygen: 2 L/min via nasal cannula Heparin 6000 unit(s) IV 05/28/2019 08:40:28 Nitro glycerin 25mg / 250ml D5W @ 5 mcg/min IV started 05/28/2019 08:30:28 Nitro glycerin 25mg / 250ml D5W @ 10 mcg/min (increased rate) 05/28/2019 08:37:06 Nitro 200 mcg IC 05/28/2019 08:41:58 Nitro 300 mcg IC 05/28/2019 08:54:37 Nitro glycerin 25mg / 250ml D5W @ 15 mcg/min (increased rate) 05/28/2019 08:54:54 Solu-medrol 125 mg IV 05/28/2019 07:54:30 IV Bolus: .9 NaCl 300 ml total 05/28/2019 08:41:00 SUMMARY OF HEMODYNAMIC DATA Time AIR REST ECG 07:41:22 AO 140/45 (83) SA 08:18:34 LV 208/-12, 23 08:25:42 LV 207/-13, 15 08:25:48 LV 214/-11, 18 08:26:38 LVp 213/-15, 16 08:26:43 AOp 201/64 (123) 08:26:48 AO 202/66 (124) 08:27:04 AO 174/54 (102) 08:52:48 AO 145/48 (86) 08:55:33 Signed By Olvin Patel MD On 05/28/2019 09:24:48 Olvin Patel MD
[2019-05-28] MEDS: Nitroglycerin Infusion 250 ML 9 MG IV (09:30)
--- NOTE | 2019-05-28 09:52 | NURSING ---
Report called to [facility] Steve in ICU
[2019-05-28] MEDS: Calcium Carbonate 500 MG Tablet PO (10:19)
[2019-05-28] MEDS: Triamterene 37.5MG/Hctz 25MG Capsule 1 CAP PO (10:19)
[2019-05-28] MEDS: Ascorbic Acid 500 MG Tablet PO (10:19)
[2019-05-28] MEDS: Folic Acid 1 MG Tablet 0.5 MG PO (10:20)
[2019-05-28] MEDS: Multivitamins,Therapeutic Tablet 1 TABLET PO (10:20)
[2019-05-28] MEDS: Omega-3 Acid Ethyl Esters 1 GM Capsule PO ×2 (10:20→17:01)
[2019-05-28 10:21] LABS: ACT Activated Clotting Time 230 sec (74-137)
[2019-05-28] MEDS: 0.9% Normal Saline 1,000 ML 150 ML IV (10:28)
--- NOTE | 2019-05-28 10:42 | PCM.PN.HOSP ---
Reason for Visit: Follow-up on chest pain, abnormal stress test Subjective: Patient was seen and examined. No acute events overnight. She had a cardiac cath done today and received LEANDER to mid RCA. Patient denied any new complaints. Vitals/I&O's: Vital Signs Temp Pulse Resp BP Pulse Ox 97.9 F 64 18 183/50 H 94 05/28/19 06:50 05/28/19 10:13 05/28/19 10:00 05/28/19 10:00 05/28/19 10:00 Oxygen Delivery Method Room Air Weight: 76.2 kg Body Mass Index (BMI) 30.7 Intake and Output for Last 24 Hours 05/26/19 05/27/19 05/28/19 23:59 23:59 23:59 Intake Total 600 / 600 Balance 600 / 600 General: Alert, Oriented x3, Cooperative HEENT: Atraumatic, PERRLA, EOMI, Normocephalic Oral: Moist Mucosa Neck: Supple Lungs: Clear to auscultation, Normal air movement Cardiovascular: Regular rate, Regular Rhythm, Normal S1, Normal S2, No murmurs Abdomen: Bowel Sounds Present, Soft, Non Tender, Non-Distended, No Hepato-splenomegaly Extremities: No edema Skin: No rashes Musculoskeletal: No Tenderness to Palpation of Joints or Extremities Lymphatic: No Cervical, Supraclavicular, or Inguinal Adenopathy Neurological: Cranial nerves II-XII grossly intact, Neuro grossly intact Psych/Mental Status: Normal Affect, Appropriate Laboratory Results 05/27/19 10:49: POC Glucose 171 H 05/27/19 16:54: POC Glucose 122 H 05/27/19 21:27: POC Glucose 133 H 05/28/19 06:54: POC Glucose 164 H 05/28/19 09:00: Activated Clotting Time 230 H Current Medications Acetaminophen (Tylenol) 650 mg PO Q6H PRN PRN PRN Reason: Pain Score 1-10/Temp > 100.7 F Ascorbic Acid (Vitamin C) 500 mg PO DAILY [facility] Last Admin: 05/28/19 10:19 Dose: 500 mg Documented by: Aspirin (Ecotrin) 81 mg PO DAILY@0800 [facility] Last Admin: 05/28/19 06:44 Dose: 81 mg Documented by: Atorvastatin Calcium (Lipitor) 40 mg PO DAILY@2200 [facility] Last Admin: 05/27/19 21:28 Dose: 40 mg Documented by: Atropine Sulfate () 0.5 mg IV UD PRN PRN Reason: HR <50 bpm Calcium Carbonate (Tums) 500 mg PO DAILYCM [facility] Last Admin: 05/28/19 10:19 Dose: 500 mg Documented by: Calcium Carbonate (Tums) 1,000 mg PO DAILY@1200 [facility] Last Admin: 05/27/19 12:10 Dose: 1,000 mg Documented by: Carvedilol (Coreg) 12.5 mg PO BID [facility] Last Admin: 05/28/19 06:44 Dose: 12.5 mg Documented by: Clopidogrel Bisulfate (Plavix) 75 mg PO DAILY [facility] Last Admin: 05/28/19 06:45 Dose: 75 mg Documented by: Famotidine (Pepcid) 20 mg PO BID@0700,2200 [facility] Last Admin: 05/28/19 06:47 Dose: 20 mg Documented by: Folic Acid (Folic Acid) 0.5 mg PO DAILY@0800 [facility] Last Admin: 05/28/19 10:20 Dose: 0.5 mg Documented by: Glucagon () 1 mg IM .X1 PRN PRN Reason: Hypoglycemia Heparin Sodium (Beef Lung) (Heparin 500 Unit/5 Ml (100/Ml)) 500 unit IV UD PRN PRN Reason: HEPARIN FLUSH Dextrose (Dextrose 10%-Water) 250 mls @ 999 mls/hr IV X1 PRN; Protocol PRN Reason: HYPOGLYCEMIA Sodium Chloride () 1,000 mls @ 15 mls/hr IV .Q48H [facility] Last Admin: 05/28/19 07:26 Dose: 15 mls/hr Documented by: Sodium Chloride () 1,000 mls @ 150 mls/hr IV .[id number] [facility] Stop: 05/28/19 16:18 Last Admin: 05/28/19 10:28 Dose: 150 mls/hr Documented by: Nitroglycerin/Dextrose () 250 mls @ 3 mls/hr IV .[id number] [facility] Last Admin: 05/28/19 09:30 Dose: 15 mcg/min, 9 mls/hr Documented by: Isosorbide Mononitrate (Imdur) 60 mg PO BID [facility] Last Admin: 05/28/19 10:22 Dose: 60 mg Documented by: Labetalol HCl (Trandate) 5 mg IV X1 PRN PRN Reason: SBP > 160 when pulling sheath Levothyroxine Sodium (Synthroid) 88 mcg PO DAILY@0600 [facility] Last Admin: 05/28/19 06:43 Dose: 88 mcg Documented by: Lorazepam (Ativan) 1 mg PO Q6H PRN PRN PRN Reason: BACK SPASMS/ANXIETY Losartan Potassium (Cozaar) 50 mg PO BID [facility] Last Admin: 05/28/19 06:45 Dose: 50 mg Documented by: Metoclopramide HCl (Reglan) 5 mg IV Q6H PRN PRN PRN Reason: NAUSEA/VOMITING Morphine Sulfate () 2 mg IV Q4H PRN PRN PRN Reason: Mild back pain () [facility]) [facility] Last Admin: 05/28/19 10:20 Dose: 1 tablet Documented by: Nitroglycerin (Nitrostat) 0.4 mg SUBLINGUAL Q5M PRN PRN Reason: CARDIAC/CHEST PAIN Dwezu-4-Ebcn Ethyl Esters (Lovaza) [facility] Last Admin: 05/28/19 10:20 Dose: 1 gm Documented by: Ondansetron HCl (Zofran) 4 mg IV Q8H PRN PRN PRN Reason: NAUSEA/VOMITING Potassium Chloride (K-Dur) [facility] meq [facility] Last Admin: 05/28/19 06:44 Dose: 10 meq Documented by: Prednisone () 60 mg PO BID@0700,2200 [facility] Last Admin: 05/28/19 06:43 Dose: 60 mg Documented by: Sodium Chloride () 10 - 40 ml IV UD PRN PRN Reason: SALINE FLUSH Last Admin: 05/28/19 06:56 Dose: 10 ml Documented by: Sodium Chloride () 500 ml IV BOLUS PRN PRN Reason: VASO-VAGAL PROTOCOL Triamterene/HCTZ (Dyazide (G)) 1 cap PO DAILY [facility] Last Admin: 05/28/19 10:19 Dose: 1 cap Documented by: STROKE Vital Signs/Narrative: Vital Signs Temp Pulse Resp BP Pulse Ox 05/28/19 10:13 64 05/28/19 10:00 64 18 183/50 H 94 05/28/19 09:45 63 18 175/46 H 94 05/28/19 09:30 64 18 174/51 H 97 05/28/19 06:53 64 05/28/19 06:50 97.9 F 68 16 165/71 H 94 Medical Necessity - Tobacco Use Smoking Status: Never smoker Assessment/Plan All Active Problems (Last Reviewed 05/27/19 @ 04:07 by Jono Alex MD) Chest pain (Acute) Anginal equivalent (Acute) 1. Chest pain, abnormal stress test, s/p cardiac cath with successful LEANDER to mid RCA On aspirin, Plavix, statin, beta-skylar, Imdur, losartan Cardiology following 2. Hypertension, uncontrolled, on Losartan, Triamterene/HCTZ, Labetolol prn Will continue to monitor 3. Hypothyroidism, on levothyroxine 4. DVT PPx- Sc heparin from tomorrow as patient recently had cardiac cath Code Visit Inpatient E&M: 89889 Subs Hosp L2
--- NOTE | 2019-05-28 10:58 | CRPHASE1 ---
Patient Communication Former Patient:: Phase II PHII Cardiac Rehab Discussed with Patient:: Yes - SHE IS ALREADY IN CARDIAC REHAB Guide to Cardiac Rehab Given to Patient:: Yes Cardiac Rehab Facility Choice List Given to Patient:: Yes - [facility] Choice Program [facility] CR PHII:: Communication Given to CR, Refer to [facility] Mechanical Unit Repairer:: Olvin Paetl PCP:: Boyd Casiano Sessions:: 36 sessions - 3 days/wk, 12 weeks Risk Factors/Lifestyle Family History: Family History (Last Reviewed 05/27/19 @ 04:07 by Jono Alex MD) Mother Myocardial infarction Father Colon cancer Hospital Course Pain Description: Tightness Pain Intensity: 5 - WHILE ON BIKE IN CARDIAC REHAB ON 05/26 Discharge/Home/Social Eval Discharge Disposition: Home Marital Status: Cardiac Rehabilitation Info Cardiac Rehabilitation Program Information: Cardiac Rehabilitation is important for patients like you who are recovering from a heart problem. Cardiac rehabilitation programs are recognized as integral to the continued care of the patient with coronary heart disease. The cardiac rehabilitation program is designed to optimize a patient's physical, psychological, and social functioning. Health care transitions nurse work in cardiac rehabilitation programs and assist you with getting the treatments you need to get stronger and healthier - like exercise, healthy eating habits, and medications. Cardiac rehabilitation has been show to help people with heart problems live longer and have better life enjoyment than people who do not go to cardiac rehabilitation. Please contact the Cardiac Rehabilitation Program at [facility] at in two weeks if you have not heard from them.
--- NOTE | 2019-05-28 11:05 | CRPH1.INSTRU ---
General Education CAD and cardiac anatomy and function:: Patient communicates acknowledgment - already in program
--- NOTE | 2019-05-28 12:51 | CASEMGMT ---
RN CM Assessment Presentation: PCI. Intro role of CM and purpose of RN CM assessment to patient in room. Pt is sleepy, but able to participate in assessment. Demographics, PCP and Pharmacy verified. Pt states she and her are independent and do not require any assistance at home. PCP: Dr. Boyd Chahal Specialists: Dr. Madera, cardiology Preferred Pharmacy: [facility] Insurance: [facility] Prescription Benefit: yes. Plan is home on Plavix LNOK: , Kedar Jean Living Arrangements: Lives independently with her . Denies care needs. Transportation: assists with driving DME: none, pt states she is independent and does not use DME Patient DC goals: Home DC PLAN: Home Ria HUSTON RN ACM
--- NOTE | 2019-05-28 17:19 | PCM.PN.CARD ---
Subjectve: The patient was evaluated earlier this day prior to her cardiac catheterization and subsequent repeat PCI procedure. At that time she noted that she had recurrent symptoms of her left-sided chest discomfort, etc., prior to her cardiac catheterization which she did not tell the nursing staff about. She subsequently underwent diagnostic cardiac catheterization. During that time she noted recurrence of her symptoms. She was treated with IV nitroglycerin and subsequently required repeat RCA PCI. At the present time she appears to be resting comfortably. Objective: Vital Signs Temp Pulse Resp BP Pulse Ox 97.9 F 73 17 133/91 H 97 05/28/19 12:00 05/28/19 17:00 05/28/19 17:00 05/28/19 17:00 05/28/19 17:00 Oxygen Delivery Method Room Air Weight: 167 lb 15.876 oz Body Mass Index (BMI) 30.7 Intake and Output for Last 24 Hours 05/26/19 05/27/19 05/28/19 23:59 23:59 23:59 Intake Total 600 / 600 1215.50 / 1215.50 Output Total 400 / 400 Balance 600 / 600 815.50 / 815.50 General: Awake, Alert, Oriented x 3, Cooperative, No Acute Distress HEENT: Atraumatic, Normocephalic, PERRL, EOMI, Sclera Non Icteric Oral: Moist Mucosa Neck: Supple, Good ROM, No JVD Lungs: Clear to auscultation Cardiovascular: Regular Rhythm, Normal S1, Normal S2 Abdomen: Bowel Sounds Present, Soft, Non Tender Extremities: No edema Neurological: No Focal Motor or Sensory Deficit Psych/Mental Status: Appropriate Rhythm: Sinus rhythm Medical Necessity - Tobacco Use Smoking Status: Never smoker Assessment/Plan 1. CAD status post multivessel PCI At the present time she appears to be status post diagnostic cardiac catheterization demonstrating repeat RCA in-stent restenosis requiring repeat RCA PTCA/LEANDER. She will need to continue to be monitored. She will need continued medical management with adjustment as needed. 2. Valvular heart disease The patient has undergone evaluation in the past with transthoracic echocardiogram. She will continue to be followed by history, exam, and echocardiogram as deemed appropriate. 3. Hyperlipidemia The patient will continue lipid-lowering management. 4. Hypertension The patient states that her blood pressures have been under good control at home. However when she presents to the hospital her blood pressures have been elevated. Thus, this may be secondary to her event/symptoms. She will require continued adjustment of her antihypertensive therapy as tolerated. This note was generated using a voice recognition system and there may be incorrect words, spelling or punctuation that were not noted when reviewing the office note prior to saving.
--- NOTE | 2019-05-28 20:27 | CL.D_ITS ---
Patient Name: PRECIOUS LEIGH Study Date: 05/28/2019 Performing: Luis Alberto Madera MD Ht: 61.81 inches 157 cm : 1935 Wt: 167.55 lbs 76 kg Age: 83 Gender: female BSA: 1.77 PROCEDURE(S) PERFORMED [id number] W OR WO PTCA, SINGLE CORONARY ARTERY CLINICAL PROFILE AND INDICATIONS Indications: ACS <= 24 hrs, New Onset Angina <= 2 months, Stable Known CAD, Worsening Angina Heart Failure: None Stress/Imaging Stress/Image Study Performed: No Stress/Image Study Performed: No Angina Classification Anginal Classification w/in 2 Weeks: CCS IV CAD Presentations: Unstable angina. Unstable angina. Comorbidities/Risk Factors: Hypertension Dyslipidemia Prior PCI CONCLUSIONS Elevated Left Ventricular End Diastolic Pressure Normal LV size, wall motion,and systolic function LVEF: by LV gram 65 % [place] Multivessel CAD RECOMMENDATIONS Risk factor modification Medical therapy Referred for immediate PCI DESCRIPTION OF PROCEDURE The patient arrived to the procedure lab. The risks and benefits of the procedure as well as a full d escription of our services here and current unavailability of surgical backup were fully explained to the patient and/or their significant other prior to the catheterization. The Timeout was completed, verifying the correct patient and procedure. The patient's procedural site was prepped and draped in the usual fashion. Local anesthetic was given subcutaneously to right groin region with Lidocaine 2%. Using a modified Seldinger technique, arterial access was obtained via the right femoral artery, a 4 Fr sheath was inserted Left Coronary Artery selective angiography was performed in multiple views us ing a 4 Fr. JL5 catheter. Right Coronary Artery selective angiography was then performed in multiple views using a 4 Fr. 3DRC catheter. Left Ventriculography was performed in BECERRA projection using a 4 Fr .pigtail. LV to AO pullback pressures were then recorded.Contrast was injected through the sheath and the Right Iliac and Femoral artery were assessed for possible closure device.The arterial sheath was pulled and a Mynx closure device was deployed for hemostasis CORONARY ANGIOGRAPHY DOMINANCE: Right Dominant LEFT HEART ASSESSMENT Left Ventricular Ejection Fraction: by LV Gram 65 % Normal LV wall motion Elevated Left Ventricular End Diastolic Pressure LVEDP: 15 mmHg LEFT MAIN: Mild luminal irregularities LEFT ANTERIOR DESCENDING ARTERY: PROX LAD: Previously placed stent is patent MID LAD: Previously placed stent is patent, Mild luminal irregularities CIRCUMFLEX ARTERY: PROX CIRC: Mild calcification, eccentric: hazy: 25 % Stenosis MID CIRC: Previously placed stent is patent RIGHT CORONARY ARTERY: PROX RCA: Previously placed stent is patent with mild luminal irregularities MID RCA: Previously placed stent has an instent 95 % restenosis DISTAL RCA: Mild luminal irregularities COLLATERAL FLOW: Collateral flow from Left to Right AORTIC ROOT: Angiographically normal COMPLICATIONS No Complications PROCEDURE MEDICATIONS Versed 1 mg IV Versed 1 mg IV Oxygen: 2 L/min via nasal cannula Heparin 6000 unit(s) IV 05/28/2019 08:40:28 Nitro glycerin 25mg / 250ml D5W @ 5 mcg/min IV started 05/28/2019 08:30:28 Nitro glycerin 25mg / 250ml D5W @ 10 mcg/min (increased rate) 05/28/2019 08:37:06 Nitro 200 mcg IC 05/28/2019 08:41:58 Nitro 300 mcg IC 05/28/2019 08:54:37 Nitro glycerin 25mg / 250ml D5W @ 15 mcg/min (increased rate) 05/28/2019 08:54:54 Solu-medrol 125 mg IV 05/28/2019 07:54:30 IV Bolus: .9 NaCl 300 ml total 05/28/2019 08:41:00 SUMMARY OF HEMODYNAMIC DATA Time AIR REST ECG 07:41:22 AO 140/45 (83) SA 08:18:34 LV 208/-12, 23 08:25:42 LV 207/-13, 15 08:25:48 LV 214/-11, 18 08:26:38 LVp 213/-15, 16 08:26:43 AOp 201/64 (123) 08:26:48 AO 202/66 (124) 08:27:04 AO 174/54 (102) 08:52:48 AO 145/48 (86) 08:55:33 Signed By Luis Alberto Madera MD On 05/28/2019 20:26:59 Luis Alberto Madera MD
[2019-05-28] MEDS: Atorvastatin Calcium 40 MG Tablet PO (21:10)
[2019-05-29] VITALS (24 sets, daily range): BP systolic 133–177; BP diastolic 25–50; PULSE 62–74; RESP 13–21; TEMP 36.6–36.7; O2SAT 93–97
[2019-05-29] MEDS: Levothyroxine 88 MCG Tablet PO (05:33)
[2019-05-29 05:46] LABS: Hematocrit 35.4 % (37-47); Mean Corp Hgb Conc 33.9 g/dL (32-36); Mean Corpuscular Volume 88.5 fL (81-99); Mean Platelet Vol. 10.7 fl (6.2-12.0); Platelet Count 235 K/mm3 (150-450); RBC Distribution Width CV 14.1 % (11.6-14.6); RBC Distribution Width SD 45.4 fl (35.1-43.9); White Blood Count 19.4 K/mm3 (4.4-11.0)
[2019-05-29 06:07] LABS: ALB/GLOB Ratio 0.9 RATIO (0.9-2.4); AST(SGOT) 14 U/L (15-37); Alanine Aminotransfer ALT/SGPT 22 U/L (13-56); Albumin, Serum 3.5 g/dL (3.2-5.0); Alkaline Phosphatase 49 U/L (45-117); Anion Gap 6 (5-15); BUN 42 mg/dL (7-18); BUN/Creat Ratio 30.2 RATIO (10-20); Calcium,Total 8.7 mg/dL (8.5-10.1); Chloride 105 mmol/L (98-107); Creatinine, Serum 1.39 mg/dL (0.55-1.02); EST Glomerular Filtration Rate 39 mL/min (>60); Est Glom Filt Rate - Afr Amer 47 mL/min (>60); Estimated Creatinine Clearance 25.11 ml/min; Globulin 3.8 g/dL (2.2-4.2); Glucose 168 mg/dL (74-106); Potassium 4.2 mmol/L (3.5-5.1); Protein, Total 7.3 g/dL (6.4-8.2); Sodium Level 137 mmol/L (136-145)
[2019-05-29] MEDS: predniSONE 20 MG Tablet 60 MG PO (06:55)
[2019-05-29] MEDS: Famotidine 20 MG Tablet PO ×2 (06:55→21:35)
[2019-05-29] MEDS: Carvedilol 12.5 MG Tablet PO ×2 (06:55→09:46)
[2019-05-29 07:36] LABS: Bedside Glucose 163 mg/dL (70-110)
[2019-05-29] MEDS: Triamterene 37.5MG/Hctz 25MG Capsule 1 CAP PO (09:30)
[2019-05-29] MEDS: Losartan Potassium 50 MG Tablet PO ×2 (09:30→21:36)
[2019-05-29] MEDS: Isosorbide Mononitrate 60 MG Tablet PO ×2 (09:31→21:35)
[2019-05-29] MEDS: Multivitamins,Therapeutic Tablet 1 TABLET PO (09:35)
[2019-05-29] MEDS: Ascorbic Acid 500 MG Tablet PO (09:35)
[2019-05-29] MEDS: Clopidogrel Bisulfate 75 MG Tablet PO (09:35)
[2019-05-29] MEDS: Omega-3 Acid Ethyl Esters 1 GM Capsule PO ×2 (09:35→17:42)
[2019-05-29] MEDS: Calcium Carbonate 500 MG Tablet PO (09:35)
[2019-05-29] MEDS: Folic Acid 1 MG Tablet 0.5 MG PO (09:36)
[2019-05-29] MEDS: Aspirin E.C. 81 MG Tablet PO (09:36)
--- NOTE | 2019-05-29 09:45 | PN_ITS ---
Reason for Visit: Follow-up on chest pain, s/p cardiac cath Subjective: Patient was seen and examined. She complained of some left sided chest pressure, radiating up her neck, and down her left arm. Denies diaphoresis, nausea or vomiting. Her BP remains uncontrolled. Objective: Physical exam: General: Alert, Oriented x3, Cooperative HEENT: Atraumatic, PERRLA, EOMI, Normocephalic Oral: Moist Mucosa Neck: Supple Lungs: Clear to auscultation, Normal air movement Cardiovascular: Regular rate, Regular Rhythm, Normal S1, Normal S2, No murmurs Abdomen: Bowel Sounds Present, Soft, Non Tender, Non-Distended, No Hepato- splenomegaly Extremities: No edema Skin: No rashes Musculoskeletal: No Tenderness to Palpation of Joints or Extremities Lymphatic: No Cervical, Supraclavicular, or Inguinal Adenopathy Neurological: Cranial nerves II-XII grossly intact, Neuro grossly intact Psych/Mental Status: Normal Affect, Appropriate Vitals/I&O's: Vital Signs Temp Pulse Resp BP Pulse Ox 97.9 F 64 14 165/47 H 93 05/29/19 00:00 05/29/19 07:09 05/29/19 06:00 05/29/19 06:53 05/29/19 06:00 Oxygen Delivery Method Room Air Weight: 76.2 kg Body Mass Index (BMI) 30.7 Intake and Output for Last 24 Hours 05/27/19 05/28/19 05/29/19 23:59 23:59 23:59 Intake Total 600 / 600 1371.50 / 1611.50 360 / 360 Output Total 400 / 600 500 / 500 Balance 600 / 600 971.50 / 1011.50 -140 / -140 Laboratory Results 05/28/19 09:00: Activated Clotting Time 230 H 05/29/19 05:35: WBC 19.4 H, RBC 4.00 L, Hgb 12.0, Hct 35.4 L, MCV 88.5, MCH 30.0, MCHC 33.9, RDW Std Deviation 45.4 H, RDW Coeff of Martha 14.1, Plt Count 235, MPV 10.7 05/29/19 05:35: Sodium 137, Potassium 4.2, Chloride 105, Carbon Dioxide 26.0, Anion Gap 6, BUN 42 H, Creatinine 1.39 H, Estim Creat Clear Calc 25.11, Est GFR (MDRD) Af Amer 47 L, Est GFR (MDRD) Non-Af 39 L, BUN/Creatinine Ratio 30.2 H, Glucose 168 H, Calcium 8.7, Total Bilirubin 0.40, AST 14 L, ALT 22, Alkaline Phosphatase 49, Total Protein 7.3, Albumin 3.5, Globulin 3.8, Albumin/Globulin Ratio 0.9 05/29/19 06:52: POC Glucose 163 H Current Medications Acetaminophen (Tylenol) 650 mg PO Q6H PRN PRN PRN Reason: Pain Score 1-10/Temp > 100.7 F Ascorbic Acid (Vitamin C) 500 mg PO DAILY [facility] Last Admin: 05/29/19 09:35 Dose: 500 mg Documented by: Aspirin (Ecotrin) 81 mg PO DAILY@0800 [facility] Last Admin: 05/29/19 09:36 Dose: 81 mg Documented by: Atorvastatin Calcium (Lipitor) 40 mg PO DAILY@2200 [facility] Last Admin: 05/28/19 21:10 Dose: 40 mg Documented by: Atropine Sulfate () 0.5 mg IV UD PRN PRN Reason: HR <50 bpm [facility]) [facility] Last Admin: 05/29/19 09:35 Dose: 500 mg Documented by: Calcium Carbonate (Tums) 1,000 mg PO DAILY@1200 [facility] Last Admin: 05/28/19 14:28 Dose: Not Given Documented by: Carvedilol (Coreg) 25 mg PO BID [facility] Clopidogrel Bisulfate (Plavix) 75 mg PO DAILY [facility] Last Admin: 05/29/19 09:35 Dose: 75 mg Documented by: Famotidine (Pepcid) 20 mg PO BID@0700,2200 [facility] Last Admin: 05/29/19 06:55 Dose: 20 mg Documented by: Folic Acid (Folic Acid) 0.5 mg PO DAILY@0800 [facility] Last Admin: 05/29/19 09:36 Dose: 0.5 mg Documented by: Glucagon () 1 mg IM .X1 PRN PRN Reason: Hypoglycemia Heparin Sodium (Beef Lung) (Heparin 500 Unit/5 Ml (100/Ml)) 500 unit IV UD PRN PRN Reason: HEPARIN FLUSH Dextrose (Dextrose 10%-Water) 250 mls @ 999 mls/hr IV X1 PRN; Protocol PRN Reason: HYPOGLYCEMIA Sodium Chloride () 1,000 mls @ 15 mls/hr IV .Q48H [facility] Last Infusion: 05/28/19 17:50 Dose: Infused Documented by: Nitroglycerin/Dextrose () 250 mls @ 3 mls/hr IV .[id number] [facility] Last Infusion: 05/28/19 13:30 Dose: Infused Documented by: Isosorbide Mononitrate (Imdur) 60 mg PO BID [facility] Last Admin: 05/29/19 09:31 Dose: 60 mg Documented by: Labetalol HCl (Trandate) 5 mg IV X1 PRN PRN Reason: SBP > 160 when pulling sheath Levothyroxine Sodium (Synthroid) 88 mcg PO DAILY@0600 [facility] Last Admin: 05/29/19 05:33 Dose: 88 mcg Documented by: Lorazepam (Ativan) 1 mg PO Q6H PRN PRN PRN Reason: BACK SPASMS/ANXIETY Losartan Potassium (Cozaar) 50 mg PO BID [facility] Last Admin: 05/29/19 09:30 Dose: 50 mg Documented by: Metoclopramide HCl (Reglan) 5 mg IV Q6H PRN PRN PRN Reason: NAUSEA/VOMITING Morphine Sulfate () 2 mg IV Q4H PRN PRN PRN Reason: Mild back pain (-03/25) Multivitamins ([facility]amin) [facility] Last Admin: 05/29/19 09:35 Dose: 1 tablet Documented by: Nitroglycerin (Nitrostat) 0.4 mg SUBLINGUAL Q5M PRN PRN Reason: CARDIAC/CHEST PAIN Pvgyi-8-Ijzb Ethyl Esters (Lovaza) [facility] Last Admin: 05/29/19 09:35 Dose: 1 gm Documented by: Ondansetron HCl (Zofran) 4 mg IV Q8H PRN PRN PRN Reason: NAUSEA/VOMITING Potassium Chloride (K-Dur) [facility] Last Admin: 05/29/19 09:36 Dose: 10 meq Documented by: Prednisone () 60 mg PO BID@0700,2200 [facility] Last Admin: 05/29/19 06:55 Dose: 60 mg Documented by: Sodium Chloride () 10 - 40 ml IV UD PRN PRN Reason: SALINE FLUSH Last Admin: 05/28/19 06:56 Dose: 10 ml Documented by: Sodium Chloride () 500 ml IV BOLUS PRN PRN Reason: VASO-VAGAL PROTOCOL Triamterene/HCTZ (Dyazide (G)) 1 cap PO DAILY [facility] Last Admin: 05/29/19 09:30 Dose: 1 cap Documented by: STROKE Vital Signs/Narrative: Vital Signs Pulse Resp BP Pulse Ox 05/29/19 07:09 64 05/29/19 06:53 165/47 H 05/29/19 06:00 69 14 177/43 H 93 Medical Necessity - Tobacco Use Smoking Status: Never smoker Assessment/Plan All Active Problems (Last Reviewed 05/27/19 @ 04:07 by Jono Alex MD) Chest pain (Acute) Anginal equivalent (Acute) 1.CAD s/p cardiac cath with successful LEANDER to mid RCA On aspirin, plavix, statin, beta-skylar, Imdur, losartan Cardiology following 2. Hypertension, remains uncontrolled Carvedilol increased to 25mg BID On Losartan, Triamterene/HCTZ, Labetolol prn Will continue to monitor 3. Leucocytosis, likely reactive, no signs of sepsis, will continue to monitor 4. Hypothyroidism, on levothyroxine 5. DVT PPx-heparin SC Code Visit Inpatient E&M: 24559 Subs Hosp L2
--- NOTE | 2019-05-29 10:01 | PCM.PN.CARD ---
Subjectve: The patient is awake and alert. She states the patient is awake and alert.She states that earlier this morning she began to experience some discomfort in her left shoulder/left upper extremity. She stated this was similar to the discomfort she had prior to her procedure. She denied any acute respiratory symptoms, nausea, or emesis. She also noted that her blood pressure was elevated. Objective: Vital Signs Temp Pulse Resp BP Pulse Ox 97.9 F 64 14 165/47 H 93 05/29/19 00:00 05/29/19 07:09 05/29/19 06:00 05/29/19 06:53 05/29/19 06:00 Oxygen Delivery Method Room Air Weight: 167 lb 15.876 oz Body Mass Index (BMI) 30.7 Intake and Output for Last 24 Hours 05/27/19 05/28/19 05/29/19 23:59 23:59 23:59 Intake Total 600 / 600 1371.50 / 1611.50 360 / 360 Output Total 400 / 600 500 / 500 Balance 600 / 600 971.50 / 1011.50 -140 / -140 General: Awake, Alert, Oriented x 3, Cooperative, No Acute Distress HEENT: Atraumatic, Normocephalic, PERRL, EOMI, Sclera Non Icteric Oral: Moist Mucosa Neck: Supple, Good ROM, No JVD Lungs: Clear to auscultation Cardiovascular: Regular Rhythm, Normal S1, Normal S2 Vascular: Normal Femoral Pulses Abdomen: Bowel Sounds Present, Soft, Non Tender Extremities: No edema Neurological: No Focal Motor or Sensory Deficit Psych/Mental Status: Appropriate 05/29/19 05:35: WBC 19.4 H, RBC 4.00 L, Hgb 12.0, Hct 35.4 L, MCV 88.5, MCH 30.0, MCHC 33.9, Plt Count 235, MPV 10.7 05/29/19 05:35: Sodium 137, Potassium 4.2, Chloride 105, Carbon Dioxide 26.0, Anion Gap 6, BUN 42 H, Creatinine 1.39 H, Est GFR (MDRD) Af Amer 47 L, Est GFR (MDRD) Non-Af 39 L, BUN/Creatinine Ratio 30.2 H, Glucose 168 H, Calcium 8.7, Total Bilirubin 0.40 Rhythm: Sinus rhythm EKG: Sinus rhythm; no acute ECG changes Medical Necessity - Tobacco Use Smoking Status: Never smoker Assessment/Plan 1. CAD status post multivessel PCI At the present time she appears to be status post diagnostic cardiac catheterization demonstrating repeat RCA in-stent restenosis requiring repeat RCA PTCA/LEANDER. States she felt better yesterday evening. Again this morning she had recurrent symptoms. Her ECG is demonstrated no new acute changes. Her symptoms appear to be occurring with her higher blood pressure. At the moment her medications will be adjusted in an attempt to bring her blood pressure under better control. She will be followed with respect to her blood pressure response and her symptoms. However, if she persists with symptoms that she believes are similar to what she had that led to her repeat evaluation and her repeat PCI then she may need to be reevaluated in the cardiac catheterization laboratory for any obvious evidence of acute in-stent restenosis. 2. Valvular heart disease The patient has undergone evaluation in the past with transthoracic echocardiogram. She will continue to be followed by history, exam, and echocardiogram as deemed appropriate. 3. Hyperlipidemia The patient will continue lipid-lowering management. 4. Hypertension The patient states that her blood pressures have been under good control at home. However when she presents to the hospital her blood pressures have been elevated. She will require continued adjustment of her antihypertensive therapy as tolerated. The above was discussed with the patient and Dr. Sosa. This note was generated using a voice recognition system and there may be incorrect words, spelling or punctuation that were not noted when reviewing the office note prior to saving.
[2019-05-29] MEDS: Calcium Carbonate 500 MG Tablet 1000 MG PO (13:10)
[2019-05-29] MEDS: amLODIPine 2.5 MG Tablet PO (13:10)
[2019-05-29] MEDS: Heparin Injection (Vial) 5,000 UNIT/ML VIAL 5000 UNIT SC ×2 (15:53→21:35)
[2019-05-29] MEDS: Carvedilol 25 MG Tablet PO (21:35)
[2019-05-29] MEDS: Atorvastatin Calcium 40 MG Tablet PO (21:35)
[2019-05-29 21:55] LABS: Bedside Glucose 132 mg/dL (70-110)
[2019-05-30 02:41] VITALS: BP 144/50; PULSE 65; RESP 16; TEMP 36.7; O2SAT 96
[2019-05-30 02:59] VITALS: PULSE 56
[2019-05-30] MEDS: Heparin Injection (Vial) 5,000 UNIT/ML VIAL 5000 UNIT SC (05:36)
[2019-05-30] MEDS: Levothyroxine 88 MCG Tablet PO (05:36)
[2019-05-30] MEDS: Famotidine 20 MG Tablet PO (05:39)
[2019-05-30 06:30] LABS: Absolute Lymphocyte Count 2.05 X10^3/uL (0.83-4.51); Absolute Neutrophil Count 14.5 X10^3/uL (2.0-7.7); Basophil# 0.01 X10^3/uL; Basophil% 0.1 % (0-1); Eosinophil# 0.01 X10^3/uL; Eosinophils% 0.1 % (0-5); Hematocrit 35.3 % (37-47); Hemoglobin 11.7 g/dL (12.0-15.0); Lymphocyte # 2.05 X10^3/ul (4.0); Lymphocyte % 11.4 % (19-41); Mean Corp Hgb Conc 33.1 g/dL (32-36); Mean Corpuscular Hgb 29.7 pg (27.0-32.0); Mean Corpuscular Volume 89.6 fL (81-99); Mean Platelet Vol. 10.8 fl (6.2-12.0); Monocyte# 1.35 X10^3/uL; Monocyte% 7.5 % (0-10); NRBC Flagged by Analyzer 0 % (0-5); Neutrophil # 14.49 X10^3/uL (2.7-7.7); Neutrophil % 80.1 % (47-70); Platelet Count 225 K/mm3 (150-450); RBC Distribution Width CV 14.3 % (11.6-14.6); RBC Distribution Width SD 46.6 fl (35.1-43.9); Red Blood Count 3.94 M/mm3 (4.2-5.4); White Blood Count 18.1 K/mm3 (4.4-11.0)
[2019-05-30 06:55] LABS: Bedside Glucose 97 mg/dL (70-110)
[2019-05-30 07:06] VITALS: PULSE 60
[2019-05-30 07:39] LABS: ALB/GLOB Ratio 1.1 RATIO (0.9-2.4); AST(SGOT) 13 U/L (15-37); Alanine Aminotransfer ALT/SGPT 20 U/L (13-56); Albumin, Serum 3.5 g/dL (3.2-5.0); Alkaline Phosphatase 47 U/L (45-117); Anion Gap 8 (5-15); BUN 43 mg/dL (7-18); BUN/Creat Ratio 38.1 RATIO (10-20); Calcium,Total 8.7 mg/dL (8.5-10.1); Chloride 108 mmol/L (98-107); Creatinine, Serum 1.13 mg/dL (0.55-1.02); EST Glomerular Filtration Rate 49 mL/min (>60); Est Glom Filt Rate - Afr Amer 59 mL/min (>60); Estimated Creatinine Clearance 30.88 ml/min; Globulin 3.3 g/dL (2.2-4.2); Glucose 104 mg/dL (74-106); Potassium 4.1 mmol/L (3.5-5.1); Protein, Total 6.8 g/dL (6.4-8.2); Sodium Level 141 mmol/L (136-145)
[2019-05-30 07:45] VITALS: O2SAT 94
[2019-05-30] MEDS: Isosorbide Mononitrate 60 MG Tablet PO (08:07)
[2019-05-30] MEDS: Carvedilol 25 MG Tablet PO (08:07)
[2019-05-30] MEDS: Omega-3 Acid Ethyl Esters 1 GM Capsule PO (08:08)
[2019-05-30] MEDS: Multivitamins,Therapeutic Tablet 1 TABLET PO (08:08)
[2019-05-30] MEDS: Losartan Potassium 50 MG Tablet PO (08:08)
[2019-05-30] MEDS: Ascorbic Acid 500 MG Tablet PO (08:08)
[2019-05-30] MEDS: Clopidogrel Bisulfate 75 MG Tablet PO (08:08)
[2019-05-30] MEDS: Aspirin E.C. 81 MG Tablet PO (08:08)
[2019-05-30] MEDS: Folic Acid 1 MG Tablet 0.5 MG PO (08:08)
[2019-05-30] MEDS: Triamterene 37.5MG/Hctz 25MG Capsule 1 CAP PO (08:08)
[2019-05-30] MEDS: Calcium Carbonate 500 MG Tablet PO (08:10)
[2019-05-30 08:40] VITALS: BP 132/52; PULSE 62; RESP 16; TEMP 36.7; O2SAT 95
--- NOTE | 2019-05-30 10:00 | EKG12_ITS ---
Test Reason : AMEKG Blood Pressure : / mmHG Vent. Rate : 059 BPM Atrial Rate : 059 BPM P-R Int : 150 ms QRS Dur : 090 ms QT Int : 430 ms P-R-T Axes : 072 014 028 degrees QTc Int : 425 ms Sinus bradycardia Otherwise normal ECG When compared with ECG of 28-MAY-2019 09:29, MANUAL COMPARISON REQUIRED, DATA IS UNCONFIRMED Confirmed by FREDDIE WYNN, DAMIR ([id number]), sports editor RIVERA EASTON ([id number]) on 06/07/2019 12:59:26 PM Referred By: Jono Alex Confirmed By:ALEXIS FRAZIER MD
--- NOTE | 2019-05-30 10:12 | DCINST_ITS ---
- Discharge Diagnoses Reason(s) for Visit for Discharge Instructions: Chest pain You will use the following diet at home:: Cardiac Your food should be the consistency of: Regular Your liquids should be the consistency of: Regular/Thin Discharge Activity: Return to Normal Activity Instructions: CHEST PAIN, Uncertain Cause Additional Instructions: Continue on your medications as prescribed. Continue on a low salt, low fat. Follow-up with cardiac rehab as planned. Allergies/Adverse Reactions: Allergies Iodinated Contrast Media [Iodinated Contrast- Oral and IV Dye] Allergy (Intermediate, Verified 05/26/19 20:33) Rash ramipril [From Altace] Adverse Reaction (Severe, Verified 05/26/19 20:33) cough Medications to take at Discharge levothyroxine 88 mcg tablet 88 mcg PO DAILY 90 Days 06/10/17 Ascorbic Acid [Vitamin C] 500 mg PO DAILY 01/16/18 Folic Acid 0.4 mg PO DAILY@0800 01/16/18 Ubidecarenone [Co Q-10] 100 mg PO DAILY 03/09/18 atorvastatin 40 mg tablet 40 mg PO DAILY 90 Days #90 tab 08/07/18 Aspirin E.C. [Ecotrin] 81 mg PO DAILY@0800 11/12/18 Calcium Citrate 200 mg PO DAILY 11/12/18 Calcium Citrate 400 mg PO DAILY@1200 11/12/18 Losartan Potassium [Cozaar] 50 mg PO BID 11/12/18 Multivitamins,Therapeutic [Multivitamin] 1 tab PO DAILY 11/12/18 [place]-3 Fatty Acids/Fish Oil [Fish Oil 1,000 mg Capsule] 1 cap PO BID 11/12/18 Potassium Chloride [K-Tab ER] 10 meq PO DAILY 11/12/18 Triamterene 37.5MG/Hctz 25MG [Dyazide (G)] 1 cap PO DAILY 11/12/18 nitroglycerin 0.4 mg sublingual tablet 0.4 mg SUBLINGUAL Q5-15M PRN 10 Days #25 tab 12/01/18 clopidogrel 75 mg tablet 75 mg PO DAILY #90 tab 02/12/19 rivaroxaban 2.5 mg tablet 2.5 mg PO ONCE #60 tab 05/19/19 Acetaminophen [Tylenol Tablet] 650 mg PO Q6H PRN PRN tablet 05/30/19 Carvedilol [Coreg (Beta Tg)] 25 mg PO BID #60 tab 05/30/19 Isosorbide Mononitrate [Imdur] 60 mg PO BID #60 tab 05/30/19 The following prescriptions were given: Carvedilol [Coreg (Beta Tg)] 25 mg PO BID #60 tab Transmission Status: Pending to [facility] Isosorbide Mononitrate [Imdur] 60 mg PO BID #60 tab Transmission Status: Pending to [facility] Orders to be completed after discharge: Phase II, Outpatient Cardiac Rehab Location: None Selected Primary Care Physician: Luis Alberto Madera MD [STAFF PHYSICIAN] - Please follow up with your Primary Care Physician in: within 1-2 weeks Test Results: Test results from this visit will be discussed in further detail at your follow- up appointment, if applicable. Proposed Discharge Date: 05/30/19
--- NOTE | 2019-05-30 10:22 | PCM.PN.CARD ---
Subjectve: Patient feeling much better today after medicine adjustment. No further chest pain or shoulder pain which appears to be her anginal equivalent. Right groin is clean/dry/intact without evidence of thrills, bruits or hematoma. Objective: Vital Signs Temp Pulse Resp BP Pulse Ox 98.1 F 60 16 144/50 H 94 05/30/19 02:41 05/30/19 07:06 05/30/19 02:41 05/30/19 02:41 05/30/19 07:45 Oxygen Delivery Method Room Air Weight: 167 lb 15.876 oz Body Mass Index (BMI) 30.7 Intake and Output for Last 24 Hours 05/28/19 05/29/19 05/30/19 23:59 23:59 23:59 Intake Total 1371.50 / 1611.50 1220 / 1340 320 / 320 Output Total 400 / 600 500 / 500 Balance 971.50 / 1011.50 720 / 840 320 / 320 General: Awake, Alert, Oriented x 3 HEENT: PERRL, EOMI, Sclera Non Icteric Neck: Supple, Good ROM, No Lymph Node Enlargement Lungs: Clear to auscultation Cardiovascular: Regular Rhythm, Normal S1, Normal S2, No Murmurs, No Rubs, No Gallops Vascular: No Carotid Bruits, Normal Femoral Pulses, Normal Radial Pulses, Normal Dorsalis Pedal Pulse, Normal Posterior Tibial Pulses Abdomen: Bowel Sounds Present, Soft, Non Tender, No HSM, No Organomegaly Extremities: No Cyanosis, No Clubbing, No edema Neurological: No Focal Motor or Sensory Deficit 05/30/19 05:20: WBC 18.1 H, RBC 3.94 L, Hgb 11.7 L, Hct 35.3 L, MCV 89.6, MCH 29.7, MCHC 33.1, Plt Count 225, MPV 10.8, Immature Gran % (Auto) 0.800, Neut % (Auto) 80.1 H, Lymph % (Auto) 11.4 L, [place] % (Auto) 7.5, Eos % (Auto) 0.1, Baso % (Auto) 0.1, Absolute Neuts (auto) 14.5 H, Nucleated RBC % 0 05/30/19 05:20: Sodium 141, Potassium 4.1, Chloride 108 H, Carbon Dioxide 25.0, Anion Gap 8, BUN 43 H, Creatinine 1.13 H, Est GFR (MDRD) Af Amer 59 L, Est GFR (MDRD) Non-Af 49 L, BUN/Creatinine Ratio 38.1 H, Glucose 104, Calcium 8.7, Total Bilirubin 0.60 Rhythm: EKG: ECHO: Stress Test: Cardiac Cath: PCI: CT Surgery: Holter monitor: EPS: PPM: CXR: Chest CT Scan: Medical Necessity - Tobacco Use Smoking Status: Never smoker Assessment/Plan #1. Coronary artery disease: Patient has had no chest pain since yesterday, at which time her blood pressure was fairly elevated which may induce some angina and microvascular territory. She is status post angioplasty and drug-eluting stenting x1 to her mid right coronary artery for in-stent restenosis. She has a total of 4 stents located in that area. I recommend the patient continue on baby aspirin, Plavix, amlodipine, Coreg and triamterene. The patient is unable to take NOY inhibitor's or ARB's due to an allergic reaction. The patient will follow Dr. Madera going forward and be enrolled into cardiac rehab as an outpatient. 2. Hypercholesterolemia: Continue Lipitor therapy. Repeat lipid profile at the end of cardiac rehab. 3. The patient will be discharged home and follow-up with Dr. Patel going forward. Very much for the opportunity to participate in the cardiac care of your patient. Code Visit Inpatient E&M: 58874 Subs Hosp L2
--- NOTE | 2019-05-30 10:23 | PCM.DC.SUM ---
Discharge Date and Diagnosis Date of Admission: 05/27/19 Date of Discharge: 05/30/19 - Primary Discharge Diagnosis Chest pain CAD s/p stent - Secondary Discharge Diagnosis Chronic Problems (Last Reviewed 05/27/19 @ 04:07 by Jono Alex MD) History of percutaneous transluminal coronary angioplasty (Chronic ~04/16/19) PTCA/NO stent to mid RCA 04/16/19 Angina pectoris (Chronic) ABDIAS (obstructive sleep apnea) (Chronic) Initial AHI 35.5 Nonrheumatic mitral (valve) insufficiency (Chronic) Nonrheumatic aortic (valve) insufficiency (Chronic) Nonrheumatic aortic (valve) stenosis (Chronic) Carotid artery disease (Chronic) Atherosclerotic heart disease of [place] coronary artery without angina pectoris (Chronic) Previous LEANDER to proximal to mid LAD 3.0 X 32 mm Taxus 02/23/[address] Daquan Meyer, [facility];LEANDER to mid RCA 2.5 X 24 mm [facility] [facility] [facility]; [facility]/LEANDER of the mid LCX 03/10/[address] [facility]; Successful PTCA/LEANDER mid RCA with a 2.0 x 12balloon, followed by a 2.0 x 10 Angiosculpt, followed by a 2.5 x 16 Promus Synergy, post dilated with a 2.5 x 8 NC Balloon; 85%-->0%, no dissection 07/22/2018; PTCA/LEANDER to mid RCA instent restenosis 11/13/18; PTCA/NO stent to mid RCA 04/16/19 Presence of stent in coronary artery (Chronic ~05/28/19) Previous LEANDER to proximal to mid LAD 3.0 X 32 mm Taxus 02/23/[address] Daquan Meyer, [facility];LEANDER to mid RCA 2.5 X 24 mm [facility]; PTCA/LEANDER of the mid LCX 03/10/[address] [facility]; Successful PTCA/LEANDER mid RCA with a 2.0 x 12balloon, followed by a 2.0 x 10 Angiosculpt, followed by a 2.5 x 16 Promus Synergy, post dilated with a 2.5 x 8 NC Balloon; 85%-->0%, no dissection 07/22/2018; PTCA/LEANDER to mid RCA instent restenosis 11/13/18; PTCA/NO stent to mid RCA 04/16/19; PCI/LEANDER to RCA 05/28/19 CAD (coronary artery disease) (Chronic) Valvular heart disease (Chronic) Hypothyroidism (Chronic) Hyperlipidemia (Chronic) HTN (hypertension), benign (Chronic) Hospital Course and Treatment Imaging Results: Clinical Impression(s) from Imaging Studies Chest X-Ray 05/26/19 20:37 IMPRESSION: Chronic abnormalities. No acute process seen Electronically Signed: Sammy Rain MD at 21:00 EST , Service support , Cardiology Operations: None Procedures: Cardiac catheterization Summary of Care Provided: The patient is a 83 year old F with PMHx of Hypertension, CAD s/p stents admitted with left shoulder, jaw, arm pain. Her symptoms started whilst in cardiac rehab and riding an exercise bicycle. Her pain went away with nitroglycerin. Her vitals showed uncontrolled BP. Her EKG showed no ST-T segments changes. She underwent a cardiac cath which showed successful LEANDER to mid RCA. She was managed on aspirin, plavix, beta-tg, Imdur, Losartan. Her BP remained uncontrolled and adjustments were made to her medications. She continue to improve and was chest pain free at discharge. Subjective: On the day of discharge, patient was seen and examined. Denies any chest pain, dizziness, palpitations. Objective: Physical exam: General: Alert, Oriented x3, Cooperative HEENT: Atraumatic, PERRLA, EOMI, Normocephalic Oral: Moist Mucosa Neck: Supple Lungs: Clear to auscultation, Normal air movement Cardiovascular: Regular rate, Regular Rhythm, Normal S1, Normal S2, No murmurs Abdomen: Bowel Sounds Present, Soft, Non Tender, Non-Distended, No Hepato-splenomegaly Extremities: No edema Skin: No rashes Musculoskeletal: No Tenderness to Palpation of Joints or Extremities Lymphatic: No Cervical, Supraclavicular, or Inguinal Adenopathy Neurological: Cranial nerves II-XII grossly intact, Neuro grossly intact Psych/Mental Status: Normal Affect, Appropriate - Physical Exam Vitals/I&O's: Vital Signs Temp Pulse Resp BP Pulse Ox 98.1 F 60 16 144/50 H 94 12/15/19 02:41 05/30/19 07:06 05/30/19 02:41 05/30/19 02:41 05/30/19 07:45 Oxygen Delivery Method Room Air Weight: 76.2 kg Body Mass Index (BMI) 30.7 Intake and Output for Last 24 Hours 05/28/19 05/29/19 05/30/19 23:59 23:59 23:59 Intake Total 1371.50 / 1611.50 1220 / 1340 320 / 320 Output Total 400 / 600 500 / 500 Balance 971.50 / 1011.50 720 / 840 320 / 320 Laboratory Results 05/29/19 21:38: POC Glucose 132 H 05/30/19 05:20: WBC 18.1 H, RBC 3.94 L, Hgb 11.7 L, Hct 35.3 L, MCV 89.6, MCH 29.7, MCHC 33.1, RDW Std Deviation 46.6 H, RDW Coeff of [place] 14.3, Plt Count 225, MPV 10.8, Immature Gran % (Auto) 0.800, Neut % (Auto) 80.1 H, Lymph % (Auto) 11.4 L, [place] % (Auto) 7.5, Eos % (Auto) 0.1, Baso % (Auto) 0.1, Absolute Neuts (auto) 14.5 H, Absolute Lymphs (auto) 2.05, Nucleated RBC % 0 05/30/19 05:20: Sodium 141, Potassium 4.1, Chloride 108 H, Carbon Dioxide 25.0, Anion Gap 8, BUN 43 H, Creatinine 1.13 H, Estim Creat Clear Calc 30.88, Est GFR (MDRD) Af Amer 59 L, Est GFR (MDRD) Non-Af 49 L, BUN/Creatinine Ratio 38.1 H, Glucose 104, Calcium 8.7, Total Bilirubin 0.60, AST 13 L, ALT 20, Alkaline Phosphatase 47, Total Protein 6.8, Albumin 3.5, Globulin 3.3, Albumin/Globulin Ratio 1.1 05/30/19 06:44: POC Glucose 97 Current Medications Acetaminophen (Tylenol) 650 mg PO Q6H PRN PRN PRN Reason: Pain Score 1-10/Temp > 100.7 F Ascorbic Acid (Vitamin C) 500 mg PO DAILY [facility] Last Admin: 12/15/19 08:08 Dose: 500 mg Documented by: Aspirin (Ecotrin) 81 mg PO DAILY@0800 [facility] Last Admin: 05/30/19 08:08 Dose: 81 mg Documented by: Atorvastatin Calcium (Lipitor) 40 mg PO DAILY@2200 [facility] Last Admin: 05/29/19 21:35 Dose: 40 mg Documented by: Atropine Sulfate () 0.5 mg IV UD PRN PRN Reason: HR <50 bpm Calcium Carbonate (Tums) 500 mg PO DAILYCM [facility] Last Admin: 05/30/19 08:10 Dose: 500 mg Documented by: Calcium Carbonate (Tums) 1,000 mg PO DAILY@1200 [facility] Last Admin: 05/29/19 13:10 Dose: 1,000 mg Documented by: Carvedilol (Coreg) 25 mg PO BID [facility] Last Admin: 05/30/19 08:07 Dose: 25 mg Documented by: Clopidogrel Bisulfate (Plavix) 75 mg PO DAILY [facility] Last Admin: 05/30/19 08:08 Dose: 75 mg Documented by: Famotidine (Pepcid) 20 mg PO BID@0700,2200 [facility] Last Admin: 05/30/19 05:39 Dose: 20 mg Documented by: Folic Acid (Folic Acid) 0.5 mg PO DAILY@0800 [facility] Last Admin: 05/30/19 08:08 Dose: 0.5 mg Documented by: Glucagon () 1 mg IM .X1 PRN PRN Reason: Hypoglycemia Heparin Sodium (Beef Lung) (Heparin 500 Unit/5 Ml (100/Ml)) 500 unit IV UD PRN PRN Reason: HEPARIN FLUSH Heparin Sodium (Porcine) (Heparin Na) 5,000 unit SC Q8 [facility] Last Admin: 05/30/19 05:36 Dose: 5,000 unit Documented by: Dextrose (Dextrose 10%-Water) 250 mls @ 999 mls/hr IV X1 PRN; Protocol PRN Reason: HYPOGLYCEMIA Sodium Chloride () 1,000 mls @ 15 mls/hr IV .Q48H [facility] Last Admin: 05/29/19 10:45 Dose: Not Given Documented by: Nitroglycerin/Dextrose () 250 mls @ 3 mls/hr IV .[id number] [facility] Last Infusion: 05/28/19 13:30 Dose: Infused Documented by: Isosorbide Mononitrate (Imdur) 60 mg PO BID [facility] Last Admin: 05/30/19 08:07 Dose: 60 mg Documented by: Labetalol HCl (Trandate) 5 mg IV X1 PRN PRN Reason: SBP > 160 when pulling sheath Levothyroxine Sodium (Synthroid) 88 mcg PO DAILY@0600 [facility] Last Admin: 05/30/19 05:36 Dose: 88 mcg Documented by: Lorazepam (Ativan) 1 mg PO Q6H PRN PRN PRN Reason: BACK SPASMS/ANXIETY Losartan Potassium (Cozaar) 50 mg PO BID [facility] Last Admin: 05/30/19 08:08 Dose: 50 mg Documented by: Metoclopramide HCl (Reglan) 5 mg IV Q6H PRN PRN PRN Reason: NAUSEA/VOMITING Morphine Sulfate () 2 mg IV Q4H PRN PRN PRN Reason: Mild back pain (-03/25) [facility]it[facility]amin) [facility] Last Admin: 05/30/19 08:08 Dose: 1 tablet Documented by: Nitroglycerin (Nitrostat) 0.4 mg SUBLINGUAL Q5M PRN PRN Reason: CARDIAC/CHEST PAIN Pucgk-9-Tjih Ethyl Esters (Lovaza) [facility] gm [facility] Last Admin: 05/30/19 08:08 Dose: 1 gm Documented by: Ondansetron HCl (Zofran) 4 mg IV Q8H PRN PRN PRN Reason: NAUSEA/VOMITING Potassium Chloride (K-Dur) 10 meq [facility] Last Admin: 05/30/19 08:08 Dose: 10 meq Documented by: Sodium Chloride () 10 - 40 ml IV UD PRN PRN Reason: SALINE FLUSH Last Admin: 05/28/19 06:56 Dose: 10 ml Documented by: Sodium Chloride () 500 ml IV BOLUS PRN PRN Reason: VASO-VAGAL PROTOCOL Triamterene/HCTZ (Dyazide (G)) 1 cap PO DAILY [facility] Last Admin: 05/30/19 08:08 Dose: 1 cap Documented by: Discharge Diet: Low fat/ Low Cholesterol, 2000 mg Sodium Diet Discharge Activity: Return to Normal Activity Home Medications: Medications to take at Discharge levothyroxine 88 mcg tablet 88 mcg PO DAILY 90 Days 06/10/17 Ascorbic Acid [Vitamin C] 500 mg PO DAILY 01/16/18 Folic Acid 0.4 mg PO DAILY@0800 01/16/18 Ubidecarenone [Co Q-10] 100 mg PO DAILY 03/09/18 atorvastatin 40 mg tablet 40 mg PO DAILY 90 Days #90 tab 08/07/18 Aspirin E.C. [Ecotrin] 81 mg PO DAILY@0800 11/12/18 Calcium Citrate 200 mg PO DAILY 11/12/18 Calcium Citrate 400 mg PO DAILY@1200 11/12/18 Losartan Potassium [Cozaar] 50 mg PO BID 11/12/18 Multivitamins,Therapeutic [Multivitamin] 1 tab PO DAILY 11/12/18 [place]-3 Fatty Acids/Fish Oil [Fish Oil 1,000 mg Capsule] 1 cap PO BID 11/12/18 Potassium Chloride [K-Tab ER] 10 meq PO DAILY 11/12/18 Triamterene 37.5MG/Hctz 25MG [Dyazide (G)] 1 cap PO DAILY 11/12/18 nitroglycerin 0.4 mg sublingual tablet 0.4 mg SUBLINGUAL Q5-15M PRN 10 Days #25 tab 12/01/18 clopidogrel 75 mg tablet 75 mg PO DAILY #90 tab 02/12/19 rivaroxaban 2.5 mg tablet 2.5 mg PO ONCE #60 tab 05/19/19 Acetaminophen [Tylenol Tablet] 650 mg PO Q6H PRN PRN tab 05/30/19 Carvedilol [Coreg (Beta Tg)] 25 mg PO BID #60 tab 05/30/19 Isosorbide Mononitrate [Imdur] 60 mg PO BID #60 tab 05/30/19 Following Prescrptions Were Given to Patient: Carvedilol [Coreg (Beta Tg)] 25 mg PO BID #60 tab Transmission Status: [facility] Isosorbide Mononitrate [Imdur] 60 mg PO BID #60 tab Transmission Status: Received by [facility] Other Amb Orders: Phase II, Outpatient Cardiac Rehab Location: None Selected Primary Care Physician: Luis Alberto Madera MD [STAFF PHYSICIAN] - Please follow up with your Primary Care Physician in: within 1-2 weeks Patient Instructions: CHEST PAIN, Uncertain Cause Disposition: Home Minutes spent on discharge:: 40 Patient Condition:: Stable Medical Necessity - Tobacco Use Smoking Status: Never smoker Tobacco Use: Non-smoker Meaningful Use Info Meaningful Use Diagnoses (Choose all that apply): None applicable Code Visit Inpatient E&M: 65726 Disch Hosp
== END 2019-05-30 11:27 | disposition home or self-care (01) | DRG 247 ==
LOC: ED 21:02 → PCU 05-27 01:26 → ICU 05-28 08:52 → PCU 05-29 17:59
PROVIDERS: Internal Medicine; Internal Medicine Cardiovascular Disease; Admitting Provider Hospitalist; Emergency Provider Emergency Medicine; Family Provider Family Medicine; PCP Family Medicine; Referring Provider Hospitalist; Visit Provider Internal Medicine
DX: T82.855A Stenosis of coronary artery stent, initial encounter (principal); I34.0 Nonrheumatic mitral (valve) insufficiency; I35.1 Nonrheumatic aortic (valve) insufficiency; I35.0 Nonrheumatic aortic (valve) stenosis; I25.10 Atherosclerotic heart disease of native coronary artery without angina pectoris; G47.33 Obstructive sleep apnea (adult) (pediatric); Z95.5 Presence of coronary angioplasty implant and graft; E78.5 Hyperlipidemia, unspecified; E03.9 Hypothyroidism, unspecified; I10 Essential (primary) hypertension; Z79.82 Long term (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 aspirin; Z79.02 Long term (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 antithrombotics/antiplatelets
CPT/HCPCS: 36415; 71045; 80048; 80053; 82962; 84484; 85025; 85027; 85347; 85610; 92928; 93005; 93458; 93798; 99152; 99153; 99285; C1760; J7030; Q9967; A4216; C1725; C1769; C1874; C1887; C1894; C9600

== ENCOUNTER 2019-06-04 14:15 | Outpatient (RCR) | payer MEDICARE, OTHER, SELFPAY ==
[2019-05-06 09:26] VITALS: BMI 33.0
--- NOTE | 2019-06-04 11:18 | CR.ITP_ITS ---
Exercise - 30-day Assessment - Visit Date of Eval: 06/04/19 Session #:: 7 - 05/28/2019 PATIENT REQUIRED ADDITIONAL PCI INTERVENTION. - Stages of Change Stages of Change:: Relapse - Physician Prescribed Exercise Modalities: Treadmill, Airdyne, NuStep Frequency (days/week): 3 Duration (Minutes):: 30-45 Intensity: 60-80% age predicted maximum heart rate reserve METs - Progression: 0.5-1.0 MET, RPE 11-14 WEEK: 3.5 Target Heart Rate:: 90-118 MAX HR 88 - Hypertension Resting Blood Pressure:: 152/58 Peak Exercise Blood Pressure:: 168/84 Medication Changes:: No - Intervention Home Exercise/Activity Goal:: Sitting Time <3 hrs/day - Education Goals:: Warm-up, RPE CARINE Scale, S/S, Safe Exercise, Self-Monitoring - Exercise Program Goals Exercise Program Goals: Aerobic Activity >30 min, B/P <130/80 Nutrition - Initial Assessment - Program Goals Nutrition Program Goals: LDL <70. Total Cholesterol <200. HDL >45. Triglycerides <150. HgbA1C <7%. BMI <25 - Diabetes Do you monitor your blood sugar at home?: No Nutrition - 30-Day Assessment - Program Goals Nutrition Program Goals: LDL <70. Total Cholesterol <200. HDL >45. Triglycerides <150. HgbA1C <7%. BMI <25 - Visit Date of Eval: 06/04/19 - PATIENT SEEN IN ER CHEST PAIN, UNDERWENT ADDITIONAL PCI INTERVENTION ON 05/28/2019 - Stages of Change Stages of Change:: Relapse - Lipids Has the patient seen the dietitian?: No - Diabetes Diabetes:: No - Weight Management Weight:: 172 lb - Intervention Referral to dietitian:: No Referral to Diabetic Clinic:: No Will attend diet classes:: Yes - Education Attended class for:: Healthy eating Tobacco - Initial Assessment - Program Goals Tobacco Program Goals: Complete smoking cessation. Attend education classes. Improve Knowledge Test score - Learning Barriers Learning Barriers: Ready to Learn Tobacco - 30-Day Assessment - Program Goals Tobacco Program Goals: Complete smoking cessation. Attend education classes. Improve Knowledge Test score - Stage of Change Stages of Change:: Relapse - Learning Barriers Learning Barriers: Participates in education - Family Support Do you have family support?: Yes - Tobacco Use Tobacco Use: Non-smoker Do you use smokeless tobacco?: No - Intervention Smoking Cessation Referral:: No Education Schedule Given:: Yes - Education Attended class for:: What it means to have Heart Disease, How Coronary Artery Disease is Diagnosed, Heart Procedures, What Heart Medications Do, Risk Factors & Modifications Psychosocial - Initial Assess - Target Goals Target Goals: Assess presence or absence of depression. Using a valid screening tool, maximizes coping skills. Positive support system - Psychosocial Test Tool Used:: HANDS Depression Questionnaire - Assistive Devices Fall Risk Assessed:: Yes Psychosocial - 30-Day Assess - Target Goals Target Goals: Assess presence or absence of depression. Using a valid screening tool, maximizes coping skills. Positive support system - Stages of Change Stages of Change:: Relapse - Psychosocial Test Tool Used:: HANDS Depression Questionnaire - Intervention PS - Interventions: Yes Attend Stress Management Classes, Yes Uses Stress Management Skills, No Referral to Mental Health, No Referral to [facility] Case Management, No Referral to Physician - Education Attended classes for:: Coping techniques, Signs & symptoms of depression, Stress management, Relaxation techniques - Patient/Program Goal Preventative Medication(s):: Aspirin - PATIENT REPORTS TAKING MEDICATIONS PRESCRIBED., NOY inhibitor, Clopidogrel, Beta skylar, Statin/lipid - Assistive Devices Assistive Devices:: None Fall Risk Assessed:: Yes
[2019-06-04 11:23] VITALS: BP 152/58; BP 168/84
== END 2019-06-15 23:59 ==
LOC: CR 14:15
PROVIDERS: Family Provider Family Medicine; PCP Family Medicine; Referring Provider Internal Medicine Cardiovascular Disease; Visit Provider Internal Medicine Cardiovascular Disease
DX: I25.10 Atherosclerotic heart disease of native coronary artery without angina pectoris (principal); Z98.61 Coronary angioplasty status
CPT/HCPCS: 93798

== ENCOUNTER → 2019-07-06 10:39 | Outpatient (CLI) | payer MEDICARE, OTHER, SELFPAY ==
[2019-06-21 14:29] VITALS: BMI 30.7
--- NOTE | 2019-07-06 10:42 | ADUL_ITS ---
Reason For Study: Pain in right femoral cath site Right Velocities Left Velocities Right COMPUTER LAB ASSISTANT measures 0.93 x 0.95 cm with a velocity Left COMPUTER LAB ASSISTANT measures 0.78 x 0.79 cm with a velocity of 146.5 cm/sec. of 120.4 cm/sec. Right CFV is compressible with normal flow noted. Left CFV is compressible with normal flow noted. No pseudoaneurysn, hematoma or AVM noted. Procedure Exam performed in department. Prelim to [facility]. Interpretation Summary Right common femoral artery 0.93 x 0.95 cm diameter normal. No evidence for arteriovenous fistula or pseudoaneurysm Patent and compressible right common femoral vein Left common femoral artery 0.78 x 0.79 cm Patent and compressible left common femoral vein Ordering Physician: Luis Alberto Madera Referring Physician: Boyd Casiano Performed By: Sharon Bridges RVT
== END ==
PROVIDERS: PCP Family Medicine; Referring Provider Internal Medicine Cardiovascular Disease; Visit Provider Internal Medicine Cardiovascular Disease
DX: S85.9 Injury of unspecified blood vessel at lower leg level (principal)
CPT/HCPCS: 93926

== ENCOUNTER 2019-07-16 14:15 | Outpatient (RCR) | payer MEDICARE, OTHER, SELFPAY ==
[2019-05-27 01:43] VITALS: BMI 30.7
[2019-06-16 00:56] VITALS: BP 152/58; BP 168/84
--- NOTE | 2019-07-05 08:18 | CR.ITP_ITS ---
Exercise - 60-Day Assessment - Visit Date of Eval: 07/05/19 Session #:: 12 - Víctor resumed CR after additional PCI intervention on 06/23/2019. - Stages of Change Stages of Change:: Action - Physician Prescribed Exercise Modalities: Treadmill, Airdyne, NuStep, SciFit Frequency (days/week): 3 Duration (Minutes):: 30-45 Intensity: 60-80% age predicted maximum heart rate reserve METs - Progression: 0.5-1.0 MET, RPE 11-14 WEEK: 3.5 unchanged. Target Heart Rate:: 90-118 - Hypertension Resting Blood Pressure:: 158/42 - concern over continued increase of BPs with recent PCI. Peak Exercise Blood Pressure:: 182/50 - Report to Dr. Madera. Medication Changes:: No - Intervention Home Exercise/Activity Goal:: Moderate Exercise 30 min/day x 5 days/wk - Education Goals:: Warm-up, RPE CARINE Scale, S/S, Safe Exercise, Self-Monitoring - Exercise Program Goals Exercise Program Goals: Aerobic Activity >30 min Nutrition - Initial Assessment - Program Goals Nutrition Program Goals: LDL <70. Total Cholesterol <200. HDL >45. Triglycerides <150. HgbA1C <7%. BMI <25 - Diabetes Do you monitor your blood sugar at home?: No Nutrition - 60-Day Assessment - Program Goals Nutrition Program Goals: LDL <70. Total Cholesterol <200. HDL >45. Triglycerides <150. HgbA1C <7%. BMI <25 - Visit Date of Eval: 07/05/19 - Stages of Change Stages of Change:: Action - Lipids Has the patient seen the dietitian?: No - Diabetes Diabetes:: No Insulin: No Non-Insulin Dependent?: No - Weight Management Weight:: 171 lb 8 oz - down from 175 - Intervention Referral to dietitian:: No Referral to Diabetic Clinic:: No Will attend diet classes:: Yes - Education Attended class for:: Healthy eating Tobacco - Initial Assessment - Program Goals Tobacco Program Goals: Complete smoking cessation. Attend education classes. Improve Knowledge Test score - Learning Barriers Learning Barriers: Ready to Learn Tobacco - 60-Day Assessment - Program Goals Tobacco Program Goals: Complete smoking cessation. Attend education classes. Improve Knowledge Test score - Stage of Change Stages of Change:: Action - Learning Barriers Learning Barriers: Participates in education - Family Support Do you have family support?: Yes - Tobacco Use Tobacco Use: Non-smoker Do you use smokeless tobacco?: No - Intervention Smoking Cessation Referral:: No Individual Education/Counseling:: No Education Schedule Given:: Yes - Education Attended class for:: Risk Factors & Modifications, Living an Active Life, Nutrition, Emotions & Heart Disease, Stress Management & Relaxation Psychosocial - Initial Assess - Target Goals Target Goals: Assess presence or absence of depression. Using a valid screening tool, maximizes coping skills. Positive support system - Psychosocial Test Tool Used:: HANDS Depression Questionnaire - Assistive Devices Fall Risk Assessed:: Yes Psychosocial - 60-Day Assess - Target Goals Target Goals: Assess presence or absence of depression. Using a valid screening tool, maximizes coping skills. Positive support system - Stages of Change Stages of Change:: Action - Psychosocial Test Tool Used:: HANDS Depression Questionnaire Test Scores: SF - 36 survey completed - Intervention PS - Interventions: Yes Attend Stress Management Classes, Yes Uses Stress Management Skills, No Referral to Mental Health, No Referral to [facility] Case Management, No Referral to Physician - Education Attended classes for:: Coping techniques, Signs & symptoms of depression, Stress management, Relaxation techniques - Patient/Program Goal Preventative Medication(s):: Aspirin, NOY inhibitor, Clopidogrel, Beta skylar, Statin/lipid - Assistive Devices Assistive Devices:: None Fall Risk Assessed:: Yes Patient Health Questionnaire 60-Day Re-eval Assessment 1. Little interest or pleasure in doing things: Not at all 2. Feeling down, depressed, or hopeless: Several days 3. Trouble falling or staying asleep, or sleeping too much: Not at all 4. Feeling tired or having little energy: Several days 5. Poor appetite or overeating: Not at all 6. Feeling bad about yourself -- or that you are a failure or have let yourself or your family down: Not at all 7. Trouble concentrating on things, such as reading the newspaper or watching television: Not at all 8. Moving or speaking so slowly that other people could have noticed. Or the opposite - being so fidgety or restless that you have been moving around a lot more than usual: Not at all 9. Thoughts that you would be better off , or of hurting yourself in some way: Not at all How difficult have these problems made it for you to do your work, take care of things at home, or get along with other people?: Not difficult at all Total Score: 2 Self-Efficacy 60-Day Re-eval Assessment We would like to know how confident you are in doing certain activities. Please select your confidence level for:: Select your confidence level for the following using the scale 1-10 where 1 is not at all confident and 10 is totally confident. Your score is the average of all 6 responses. Fatigue: How confident are you that you can keep the fatigue caused by your disease from interfering with the things you want to do? Select Number: 6 Physical Discomfort or Pain: How confident are you that you can keep the physical discomfort or pain of your disease from interfering with the things you want to do? Select Number: 9 Emotional Distress: How confident are you that you can keep the emotional distress caused by your disease from interfering with the things you want to do? Select Number: 9 Other Symptoms or Health Problems: How confident are you that you can keep other symptoms or health problems from interfering with the things you want to do? Select Number: 9 Different Tasks and Activities: How confident are you that you can do the different tasks and activities needed to manage your health condition so as to reduce your need to see a doctor? Select Number: 7 Medication: How confident are you that you can do things other than just taking medication to reduce how much your illness affects your everyday life? Select Number: 8 Total Score:: 8
[2019-07-05 08:40] VITALS: BP 158/42; BP 182/50
== END 2019-07-16 23:59 ==
LOC: CR 14:15
PROVIDERS: Family Provider Family Medicine; PCP Family Medicine; Referring Provider Internal Medicine Cardiovascular Disease; Visit Provider Internal Medicine Cardiovascular Disease
DX: I25.10 Atherosclerotic heart disease of native coronary artery without angina pectoris (principal); Z98.61 Coronary angioplasty status
CPT/HCPCS: 93798

== ENCOUNTER 2019-08-02 14:15 | Outpatient (RCR) | payer MEDICARE, OTHER, SELFPAY ==
[2019-06-21 14:29] VITALS: BMI 30.7
[2019-07-17 00:51] VITALS: BP 158/42; BP 182/50
== END 2019-08-14 23:59 ==
LOC: CR 14:15
PROVIDERS: Family Provider Family Medicine; PCP Family Medicine; Referring Provider Internal Medicine Cardiovascular Disease; Visit Provider Internal Medicine Cardiovascular Disease
DX: I25.10 Atherosclerotic heart disease of native coronary artery without angina pectoris (principal); Z98.61 Coronary angioplasty status
CPT/HCPCS: 93798

== ENCOUNTER → 2019-11-11 07:46 | Outpatient (CLI) | payer MEDICARE, OTHER, SELFPAY ==
[2019-10-08 13:21] VITALS: BMI 30.7
[2019-11-11 08:39] LABS: Anion Gap 6 (5-15); BUN 34 mg/dL (7-18); BUN/Creat Ratio 25.8 RATIO (10-20); Calcium,Total 9.2 mg/dL (8.5-10.1); Chloride 104 mmol/L (98-107); Creatinine, Serum 1.32 mg/dL (0.55-1.02); EST Glomerular Filtration Rate 41 mL/min (>60); Est Glom Filt Rate - Afr Amer 50 mL/min (>60); Glucose 116 mg/dL (74-106); Sodium Level 140 mmol/L (136-145)
[2019-11-11 08:42] LABS: AST(SGOT) 26 U/L (15-37); Alanine Aminotransfer ALT/SGPT 30 U/L (13-56); Alkaline Phosphatase 46 U/L (45-117); Bilirubin, Direct 0.21 mg/dL (0.00-0.30); Cholesterol 120 mg/dL (200); Globulin 3.8 g/dL (2.2-4.2); High Density Lipoprotein 51 mg/dL; Protein, Total 6.8 g/dL (6.4-8.2); Triglycerides 155 mg/dL; Very Low Density Lipoprotein 31 mg/dL (5-40)
== END ==
PROVIDERS: Physician Assistant Medical; PCP Family Medicine; Referring Provider Internal Medicine Cardiovascular Disease; Visit Provider Internal Medicine Cardiovascular Disease
DX: I25.10 Atherosclerotic heart disease of native coronary artery without angina pectoris (principal); I35.0 Nonrheumatic aortic (valve) stenosis; I35.1 Nonrheumatic aortic (valve) insufficiency; I34.0 Nonrheumatic mitral (valve) insufficiency; I10 Essential (primary) hypertension; E78.5 Hyperlipidemia, unspecified
CPT/HCPCS: 36415; 80048; 80061; 80076

== ENCOUNTER → 2020-01-31 15:40 | Outpatient (CLI) | payer MEDICARE, OTHER, SELFPAY ==
[2019-10-08 13:21] VITALS: BMI 30.7
== END ==
PROVIDERS: PCP Family Medicine; Visit Provider Family Medicine
DX: N30.00 Acute cystitis without hematuria (principal)
CPT/HCPCS: 87077; 87086; 87088

== ENCOUNTER → 2020-03-20 14:50 | Outpatient (CLI) | payer MEDICARE, OTHER, SELFPAY ==
[2020-03-08 15:56] VITALS: BMI 30.5
== END ==
PROVIDERS: PCP Family Medicine; Visit Provider Family Medicine
DX: N39.0 Urinary tract infection, site not specified (principal)
CPT/HCPCS: 87086

== ENCOUNTER → 2020-03-31 07:51 | Outpatient (CLI) | payer MEDICARE, OTHER, SELFPAY ==
[2020-03-08 15:56] VITALS: BMI 30.5
[2020-03-31 08:57] LABS: AST(SGOT) 21 U/L (15-37); Alanine Aminotransfer ALT/SGPT 17 U/L (13-56); Albumin, Serum 2.8 g/dL (3.2-5.0); Alkaline Phosphatase 70 U/L (45-117); Bilirubin, Direct 0.15 mg/dL (0.00-0.30); Cholesterol 123 mg/dL (200); Globulin 5.4 g/dL (2.2-4.2); High Density Lipoprotein 42 mg/dL; Protein, Total 8.2 g/dL (6.4-8.2); T4 Free Direct 0.97 ng/dL (0.76-1.46); Thyroid Stim Hormone (TSH) 9.28 uIU/mL (0.358-3.74); Triglycerides 186 mg/dL; Very Low Density Lipoprotein 37 mg/dL (5-40)
== END ==
PROVIDERS: PCP Family Medicine; Referring Provider Physician Assistant Medical; Visit Provider Physician Assistant Medical
DX: E03.9 Hypothyroidism, unspecified (principal); E78.5 Hyperlipidemia, unspecified; I25.10 Atherosclerotic heart disease of native coronary artery without angina pectoris
CPT/HCPCS: 36415; 80061; 80076; 84439; 84443

== ENCOUNTER 2020-04-07 17:36 | Emergency (ER) | payer MEDICARE, OTHER, SELFPAY ==
[2020-03-08 15:56] VITALS: BMI 30.5
[2020-04-07 17:37] VITALS: BP 158/65; PULSE 67; RESP 15; TEMP 36.2; O2SAT 95; BMI 30.4
--- NOTE | 2020-04-07 19:05 | RAD_ITS ---
STUDY: X-RAY - RIGHT WRIST REASON FOR EXAM: Female, 84 years old. Wrist pain started today, no known injury. TECHNIQUE: 3 view(s) of the wrist were obtained. COMPARISON: None. FINDINGS: There is demineralization of the radius and ulna. Normal radiocarpal articulation. Normal distal radioulnar articulation. There is demineralization of the carpal bones. Normal carpal articulations. There is degenerative arthrosis of the carpometacarpal articulation of the thumb. Normal second through fifth carpometacarpal articulations. Normal visualized metacarpal bones. The soft tissue structures are unremarkable. There is no demonstrated acute fracture. RAD/Wrist min 3 Views IMPRESSION: No fractures or dislocations. Demineralization and degenerative changes. Electronically Signed: Sushil Tran MD at 19:38 EDT , Service support ,
--- NOTE | 2020-04-07 19:34 | ED.DCSUM_ITS ---
History of Present Illness Chief Complaint: Upper Extremity Injury Informant: Patient, Significant Other Narrative: Patient presents to the emergency department for the evaluation of right hand/wrist pain. She tells me that she was out for lunch today and she went to pharmacy picking tech a glass and noticed that she could not. She developed pain along the thumb and eventually progressed up to the elbow. She went home took a couple Advil and took a nap. When she woke the pain was gone but she had a muscle ache-like pain in the right side of her neck. She states that she cannot lift her arm above her head unless she does it slowly and then she can. 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 She denies any speech vision facial or leg symptoms. No headache. She is on Xarelto - Past Medical History (1) Atherosclerotic heart disease of [place] coronary artery without angina pectoris Status: Chronic Comment: Previous LEANDER to proximal to mid LAD 3.0 X 32 mm Taxus 02/23/[address] Daquan Meyer, [facility];LEANDER to mid RCA 2.5 X 24 mm Synergy 01/19/[address] Patel,[facility]; PTCA/LEANDER of the mid LCX 03/10/[address] Torrez [facility]; Successful PTCA/LEANDER mid RCA with a 2.0 x 12balloon, followed by a 2.0 x 10 Angiosculpt, followed by a 2.5 x 16 Promus Synergy, post dilated with a 2.5 x 8 NC Balloon; 85%-->0%, no dissection 07/22/2018; PTCA/LEANDER to mid RCA instent restenosis 11/13/18; PTCA/NO stent to mid RCA 04/16/19; Successful PTCA/LEANDER mid RCA with a 2.0 x 10 Angiosculpt, followed with a 2.5 x 14 Resolute LEANDER, post dilated with a 2.5 x 12 NC balloon; 85%-->0%, no dissection 05/28/2019. (2) Carotid artery disease Status: Chronic (3) Essential hypertension Status: Chronic (4) History of percutaneous transluminal coronary angioplasty Status: Chronic Comment: PTCA/NO stent to mid RCA 04/16/19 (5) Hyperlipidemia Status: Chronic (6) Hypothyroidism Status: Chronic (7) Nonrheumatic aortic (valve) insufficiency Status: Chronic (8) Nonrheumatic aortic (valve) stenosis Status: Chronic (9) ABDIAS (obstructive sleep apnea) Status: Chronic Comment: Initial AHI 35.5 Past Medical History - Allergies and Home Meds Allergies/Adverse Reactions: Allergies Iodinated Contrast Media [Iodinated Contrast- Oral and IV Dye] Allergy (Intermediate, Verified 04/07/20 17:39) Rash ramipril [From Altace] Adverse Reaction (Severe, Verified 04/07/20 17:39) cough Surgical History: angioplasty, cholecystectomy, - - Cardiac stents in 2003, one stent in January 2018, one stent in March 2018, one stent in July 2018 Smoking Status: Unknown if ever smoked - Family History Maternal Family History: Family History (Last Reviewed 03/08/20 @ 16:01 by Joi Ballard) Mother Myocardial infarction Father Colon cancer Family History: Reports: Heart Disease - [place] Paternal Family History: Family History (Last Reviewed 03/08/20 @ 16:01 by Joi Ballard) Mother Myocardial infarction Father Colon cancer Family History: Reports: Cancer - colon Review of Systems General: Denies: Chills, Fever, Sweats Eyes: Denies: Visual changes - bilaterally, Diplopia ENT: Denies: Rhinorrhea, Sore throat Cardiovascular: Denies: Chest pain, Palpitations Respiratory: Denies: Dyspnea, Cough, Dyspnea on exertion Gastrointestinal: Denies: Abdominal pain, Nausea, Vomiting, Diarrhea, Melena, Hematochezia Genitourinary: Denies: Dysuria, Hematuria, Frequency Musculoskeletal: Reports: Extremity Pain. Denies: Back pain Skin: Denies: Rash, Wounds Neurological: Reports: Weakness. Denies: Headache, Parasthesia, Numbness Physical Exam Vital Signs/Narrative: Vital Signs Temp Pulse Resp BP Pulse Ox 04/07/20 17:37 97.2 F L 67 15 158/65 H 95 Inital Vital Signs reviewed: Yes General: Well nourished, Well developed, No Acute Distress Head: Normocephalic, Atraumatic Eyes: Perrl, EOMI ENT: Moist mucous membranes, No rhinorrhea Neck: Supple, Nontender Cardiovascular: Regular rate, Regular rhythm, No murmurs Respiratory: No distress, CTA bilaterally, Chest nontender Abdomen: Soft, Nontender, Nondistended, Normal bowel sounds Back: Nontender, Normal Inspection Extremities: No edema, - - Patient has tenderness to palpation along the first MCP joint up along the lateral aspect of the forearm. Positive Joya test. No muscle wasting. Sensation is preserved. Skin: Normal color, No rash Neurological: Alert, Oriented x3, Cranial nerves II-XII grossly intact, Normal Strength, Normal Sensation Psychological: Normal affect, Normal Mood Diagnostic/Tx/Re-eval - Medical Decision Making X-rays reveal some first CMC arthritis. Question whether the patient could have a de Quervain's tenosynovitis. I will place her in a thumb spica splint and write from diclofenac. I do not think that this represents stroke. 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 She had no other neurologic symptoms. She is already on Xarelto. ED Disposition - Plan for ED Patient: Disposition: Home or Assisted Living Diagnosis: De Quervain's disease (tenosynovitis), CMC arthritis, thumb, degenerative Instructions: ED De Quervain Tenosynovitis Prescriptions: Diclofenac [Voltaren] 50 mg PO BIDCM #14 tab Prescription Printed Referrals: Boyd Casiano MD [Primary Care Provider] - 1 Week if not improving
== END 2020-04-07 20:02 | disposition home or self-care (01) ==
PROVIDERS: Emergency Provider Emergency Medicine; PCP Family Medicine
DX: M65.4 Radial styloid tenosynovitis [de Quervain] (principal); M19.041 Primary osteoarthritis, right hand; I25.10 Atherosclerotic heart disease of native coronary artery without angina pectoris; Z79.01 Long term (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 anticoagulants; Z95.5 Presence of coronary angioplasty implant and graft
CPT/HCPCS: 73110; 99282

== ENCOUNTER 2020-04-11 20:22 | Inpatient (IN) | payer MEDICARE, OTHER, SELFPAY ==
[2020-04-11 20:23] VITALS: BP 177/63; PULSE 83; RESP 20; TEMP 39.1; O2SAT 93; BMI 31.4
--- NOTE | 2020-04-11 20:34 | EKG12_ITS ---
Test Reason : CP Blood Pressure : / mmHG Vent. Rate : 099 BPM Atrial Rate : 099 BPM P-R Int : 144 ms QRS Dur : 086 ms QT Int : 336 ms P-R-T Axes : 064 003 054 degrees QTc Int : 431 ms Normal sinus rhythm with sinus arrhythmia Nonspecific ST abnormality Abnormal ECG Confirmed by LEO WYNN, PORTIA ([id number]), editor producer JANETT MURPHY ([id number]) on 04/13/2020 9:20:05 AM Referred By: LEROY Confirmed By:PORTIA BAILEY MD
--- NOTE | 2020-04-11 20:42 | ED.VIS.GEN ---
History of Present Illness Chief Complaint: Chest Pain Informant: Patient Onset: Yesterday Context: Gradual Onset Timing: Continuous Current Severity: Moderate Maximum Severity: Moderate Narrative: The patient is an 84-year-old female with medical history significant for hypertension, coronary vascular disease with stents, valvular heart disease on anticoagulants, who presents to the emergency department with cough, chest pain, fever, and shortness of breath. Patient symptoms began yesterday. He states that she was feeling just generalized malaise. She states that she had chills and myalgias. Today, she developed more of a cough and had persistent chest pain. She states that similar to prior anginal symptoms she is had in the past, just not as significant. She denies being around anybody has been sick. She does smoke but denies any history of lung disease. She states she is otherwise been in her normal state of health. Prior similar symptoms: Yes Recent Illness/Hospitalization: No Past Medical History - Allergies and Home Meds Allergies/Adverse Reactions: Allergies Iodinated Contrast Media [Iodinated Contrast- Oral and IV Dye] Allergy (Intermediate, Verified 04/07/20 17:39) Rash ramipril [From Altace] Adverse Reaction (Severe, Verified 04/07/20 17:39) cough Primary Care Physician: Boyd Casiano MD [Primary Care Provider] - Prior records reviewed: Yes Past Medical History: - - Coronary vascular disease, valvular heart disease, hypertension Surgical History: angioplasty, cholecystectomy, - - Cardiac stents in 2003, one stent in January 2018, one stent in March 2018, one stent in July 2018 Smoking Status: Unknown if ever smoked - Family History Maternal Family History: Family History (Last Reviewed 03/08/20 @ 16:01 by Joi Ballard) Mother Myocardial infarction Father Colon cancer Family History: Reports: Heart Disease - [place] Paternal Family History: Family History (Last Reviewed 03/08/20 @ 16:01 by Joi Ballard) Mother Myocardial infarction Father Colon cancer Family History: Reports: Cancer - colon Review of Systems General: Reports: Chills, Fever. Denies: Sweats Eyes: Denies: Visual changes - bilaterally, Diplopia ENT: Denies: Rhinorrhea, Sore throat Cardiovascular: Reports: Chest pain. Denies: Palpitations Respiratory: Reports: Dyspnea, Cough. Denies: Dyspnea on exertion Gastrointestinal: Denies: Abdominal pain, Nausea, Vomiting, Diarrhea, Melena, Hematochezia Genitourinary: Denies: Dysuria, Hematuria, Frequency Musculoskeletal: Denies: Back pain, Extremity Pain Skin: Denies: Rash, Wounds Neurological: Denies: Headache, Weakness, Numbness Physical Exam Vital Signs/Narrative: Vital Signs Temp Pulse Resp BP Pulse Ox 04/11/20 20:23 102.3 F H 83 20 H 177/63 H 93 Inital Vital Signs reviewed: Yes General: Well nourished, Well developed, No Acute Distress Head: Normocephalic, Atraumatic Eyes: Perrl, EOMI ENT: Moist mucous membranes, No rhinorrhea Neck: Supple, Nontender Cardiovascular: Regular rate, Regular rhythm, No murmurs Respiratory: No distress, CTA bilaterally, Chest nontender Abdomen: Soft, Nontender, Nondistended, Normal bowel sounds Back: Nontender, Normal Inspection Extremities: Nontender, No edema Skin: Normal color, No rash Neurological: Alert, Oriented x3, Cranial nerves II-XII grossly intact, Normal Strength, Normal Sensation Psychological: Normal affect, Normal Mood Diagnostic/Tx/Re-eval Clinical Impression(s) from Imaging Studies Chest X-Ray 04/11/20 21:16 IMPRESSION: Chronic interstitial changes in the lower lobes however cannot definitively exclude coexisting acute inflammatory disease. CT would be useful for further evaluation if clinically warranted Electronically Signed: Angel Dickson MD at 21:56 EDT , Service support , Abnormal Lab Results 04/11/20 04/11/20 04/11/20 21:30 21:30 21:40 WBC 5.9 RBC 3.91 L Hgb 11.6 L Hct 36.0 L MCV 92.1 MCH 29.7 MCHC 32.2 RDW Std Deviation 47.9 H RDW Coeff of Martha 14.2 Plt Count 222 MPV 10.2 Immature Gran % (Auto) 0.500 Neut % (Auto) 74.2 H Lymph % (Auto) 11.1 L Harnett % (Auto) 8.8 Eos % (Auto) 4.4 Baso % (Auto) 1.0 Absolute Neuts (auto) 4.4 Absolute Lymphs (auto) 0.66 L Nucleated RBC % 0 Sodium 135 L Potassium 4.5 Chloride 100 Carbon Dioxide 28.0 Anion Gap 7 BUN 28 H Creatinine 1.62 H Estim Creat Clear Calc 20.20 Est GFR (MDRD) Af Amer 39 L Est GFR (MDRD) Non-Af 32 L BUN/Creatinine Ratio 17.3 Glucose 132 H Lactic Acid 1.5 Calcium 9.5 Total Bilirubin 0.50 AST 46 H ALT 29 Alkaline Phosphatase 73 Troponin I < 0.015 Total Protein 8.6 H Albumin 2.6 L Globulin 6.0 H Albumin/Globulin Ratio 0.4 L Procalcitonin 04/11/20 21:40 WBC RBC Hgb Hct MCV MCH MCHC RDW Std Deviation RDW Coeff of Martha Plt Count MPV Immature Gran % (Auto) Neut % (Auto) Lymph % (Auto) Harnett % (Auto) Eos % (Auto) Baso % (Auto) Absolute Neuts (auto) Absolute Lymphs (auto) Nucleated RBC % Sodium Potassium Chloride Carbon Dioxide Anion Gap BUN Creatinine Estim Creat Clear Calc Est GFR (MDRD) Af Amer Est GFR (MDRD) Non-Af BUN/Creatinine Ratio Glucose Lactic Acid Calcium Total Bilirubin AST ALT Alkaline Phosphatase Troponin I Total Protein Albumin Globulin Albumin/Globulin Ratio Procalcitonin 0.21 H - Rhythm Strip Rhythm Strip: Sinus Rhythm Rate: 80 Ectopy: None - EKG Initial EKG Interpretation: Sinus Rhythm, No Acute Injury Pattern Prior: Unchanged - Medical Decision Making Patient presents with cough, shortness of breath, and fever. She is also had chest pain. She describes it as central that is worse with coughing. The patient has not hypoxic or tachycardic. However, she is febrile at 102. Septic work-up was pursued. Patient does not have significant leukocytosis. EKG was obtained which was sinus rhythm without acute ischemia. Cardiac enzymes were negative. Chest x-ray is concerning for early pneumonia. With the patient's cough and fever, she was covered with broad-spectrum antibiotics. Covid is currently pending. Given the patient's chest pain and fever, I do feel that observation would be the most appropriate. The patient was discussed with the hospitalist. Impression 1. Community-acquired pneumonia 2. Febrile illness ED Disposition - Plan for ED Patient: Referrals: Boyd Casiano MD [Primary Care Provider] -
--- NOTE | 2020-04-11 21:16 | RAD_ITS ---
STUDY: X-RAY CHEST REASON FOR EXAM: Female, 84 years old. CHEST PAIN TODAY. FEVER AND SHORTNESS OF BREATH. 102 AT HOME. TECHNIQUE: AP portable COMPARISON: 05/26/2019 FINDINGS: There is prominence of the interstitial markings in the lower lobes with diffusely increased density possibly inflammatory however, the findings are similar to that seen on previous study.. There is no demonstrated pleural abnormality. Normal size heart. Normal mediastinum and to. Normal visualized pulmonary arteries. Mildly calcified aortic arch and descending thoracic aorta. Dorsal spine and shoulders demonstrate degenerative change Normal visualized ribs, and clavicles.. There is no demonstrated abnormality of the visualized soft tissue structures of the upper abdomen. RAD/Chest 1 View (Portable) IMPRESSION: Chronic interstitial changes in the lower lobes however cannot definitively exclude coexisting acute inflammatory disease. CT would be useful for further evaluation if clinically warranted Electronically Signed: Angel Dickson MD at 21:56 EDT , Service support ,
[2020-04-11] MEDS: 0.9% Normal Saline 1,000 ML 125 ML IV (21:29)
[2020-04-11] MEDS: Acetaminophen 500 MG Tablet 1000 MG PO (21:30)
[2020-04-11 21:35] VITALS: BP 185/73; PULSE 75; RESP 18; TEMP 39.1; O2SAT 93
[2020-04-11 21:57] LABS: Absolute Lymphocyte Count 0.66 X10^3/uL (0.83-4.51); Absolute Neutrophil Count 4.4 X10^3/uL (2.0-7.7); Basophil# 0.06 X10^3/uL; Eosinophil# 0.26 X10^3/uL; Eosinophils% 4.4 % (0-5); Hemoglobin 11.6 g/dL (12.0-15.0); Lymphocyte # 0.66 X10^3/ul (4.0); Lymphocyte % 11.1 % (19-41); Mean Corp Hgb Conc 32.2 g/dL (32-36); Mean Corpuscular Hgb 29.7 pg (27.0-32.0); Mean Corpuscular Volume 92.1 fL (81-99); Mean Platelet Vol. 10.2 fl (6.2-12.0); Monocyte# 0.52 X10^3/uL; Monocyte% 8.8 % (0-10); NRBC Flagged by Analyzer 0 % (0-5); Neutrophil # 4.39 X10^3/uL (2.7-7.7); Neutrophil % 74.2 % (47-70); Platelet Count 222 K/mm3 (150-450); RBC Distribution Width CV 14.2 % (11.6-14.6); RBC Distribution Width SD 47.9 fl (35.1-43.9); Red Blood Count 3.91 M/mm3 (4.2-5.4); White Blood Count 5.9 K/mm3 (4.4-11.0)
[2020-04-11 22:16] LABS: ALB/GLOB Ratio 0.4 RATIO (0.9-2.4); AST(SGOT) 46 U/L (15-37); Alanine Aminotransfer ALT/SGPT 29 U/L (13-56); Albumin, Serum 2.6 g/dL (3.2-5.0); Alkaline Phosphatase 73 U/L (45-117); Anion Gap 7 (5-15); BUN 28 mg/dL (7-18); BUN/Creat Ratio 17.3 RATIO (10-20); Calcium,Total 9.5 mg/dL (8.5-10.1); Chloride 100 mmol/L (98-107); Creatinine, Serum 1.62 mg/dL (0.55-1.02); EST Glomerular Filtration Rate 32 mL/min (>60); Est Glom Filt Rate - Afr Amer 39 mL/min (>60); Glucose 132 mg/dL (74-106); Potassium 4.5 mmol/L (3.5-5.1); Protein, Total 8.6 g/dL (6.4-8.2); Sodium Level 135 mmol/L (136-145)
[2020-04-11 22:20] LABS: Procalcitonin 0.21 ng/mL (0.00-0.09)
[2020-04-11 22:25] LABS: Lactic Acid 1.5 mmol/L (0.4-1.9)
[2020-04-11 22:59] VITALS: BP 161/50; PULSE 70; RESP 12; TEMP 37.1; O2SAT 92
[2020-04-11] MEDS: Ceftriaxone 1 GM/50 ML BAG IV (23:48)
[2020-04-11 23:50] VITALS: BP 126/46; PULSE 69; RESP 18; TEMP 37.2; O2SAT 93
[2020-04-12] VITALS (14 sets, daily range): BP systolic 109–141; BP diastolic 45–79; PULSE 54–73; RESP 16–20; TEMP 35.9–36.7; O2SAT 92–97; BMI 31.2
--- NOTE | 2020-04-12 01:26 | PCM.HP.STD ---
Problem List (1) Acute febrile illness Status: Acute (2) Essential hypertension Status: Chronic (3) History of percutaneous transluminal coronary angioplasty Status: Chronic Comment: PTCA/NO stent to mid RCA 04/16/19 (4) Angina pectoris Status: Chronic (5) Chest pain Status: Acute (6) ABDIAS (obstructive sleep apnea) Status: Chronic Comment: Initial AHI 35.5 (7) Nonrheumatic mitral (valve) insufficiency Status: Chronic (8) Nonrheumatic aortic (valve) insufficiency Status: Chronic (9) Nonrheumatic aortic (valve) stenosis Status: Chronic (10) Carotid artery disease Status: Chronic Qualifiers: Carotid artery disease type: stenosis Laterality: bilateral Qualified Code(s): I65.23 - Occlusion and stenosis of bilateral carotid arteries (11) 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 transplanted heart: enterprise heart Qualified Code(s): I25.10 - Atherosclerotic heart disease of enterprise coronary artery without angina pectoris Comment: Previous LEANDER to proximal to mid LAD 3.0 X 32 mm Taxus 02/23/[address] Daquan Meyer, [facility];LEANDER to mid RCA 2.5 X 24 mm Synergy 01/19/[address] Patel,[facility]; PTCA/LEANDER of the mid LCX 03/10/[address] Torrez [facility]; Successful PTCA/LEANDER mid RCA with a 2.0 x 12balloon, followed by a 2.0 x 10 Angiosculpt, followed by a 2.5 x 16 Promus Synergy, post dilated with a 2.5 x 8 NC Balloon; 85%-->0%, no dissection 07/22/2018; PTCA/LEANDER to mid RCA instent restenosis 11/13/18; PTCA/NO stent to mid RCA 04/16/19; Successful PTCA/LEANDER mid RCA with a 2.0 x 10 Angiosculpt, followed with a 2.5 x 14 Resolute LEANDER, post dilated with a 2.5 x 12 NC balloon; 85%-->0%, no dissection 05/28/2019. (12) Presence of stent in coronary artery Status: Chronic Comment: Previous LEANDER to proximal to mid LAD 3.0 X 32 mm Taxus 02/23/[address] Daquan Meyer, [facility];LEANDER to mid RCA 2.5 X 24 mm Synergy [facility] [facility]; PTCA/LEANDER of the mid LCX 03/10/[address] Torrez [facility]; Successful PTCA/LEANDER mid RCA with a 2.0 x 12balloon, followed by a 2.0 x 10 Angiosculpt, followed by a 2.5 x 16 Promus Synergy, post dilated with a 2.5 x 8 NC Balloon; 85%-->0%, no dissection 07/22/2018; PTCA/LEANDER to mid RCA instent restenosis 11/13/18; PTCA/NO stent to mid RCA 04/16/19; PCI/LEANDER to RCA 05/28/19 (13) Valvular heart disease Status: Chronic (14) Hypothyroidism Status: Chronic Qualifiers: Hypothyroidism type: unspecified Qualified Code(s): E03.9 - Hypothyroidism, unspecified (15) Hyperlipidemia Status: Chronic Qualifiers: Hyperlipidemia type: unspecified Qualified Code(s): E78.5 - Hyperlipidemia, unspecified History of Present Illness Date of Admission: 04/12/20 Chief Complaint: Chest pain The patient is a 84 year old F with a significant history of hypertension; obstructive sleep apnea; CAD status post stents who presents emergency department with dull aching substernal chest pain that started a day before presentation. The severity of her chest pain was 5 out of 10. She denies any aggravating or ameliorating factors to the pain. Chest pain was nonradiating. She denies any nausea vomiting or diaphoresis. At the time of examination at the emergency department she did not have any chest pain. Associated for symptoms is malaise, anorexia, coughing, and chills. She had a marginal temperature of 103 at home. She denies any taste or smell sensation. She denies any known Covid contacts. She endorses some shortness of breath. Past Medical History Past Medical History (Chronic Problems): Chronic Problems (Last Reviewed 04/12/20 @ 01:[address] Jono Alex MD) Essential hypertension (Chronic) History of percutaneous transluminal coronary angioplasty (Chronic 04/16/19) PTCA/NO stent to mid RCA 04/16/19 Angina pectoris (Chronic) ABDIAS (obstructive sleep apnea) (Chronic) Initial AHI 35.5 Nonrheumatic mitral (valve) insufficiency (Chronic) Nonrheumatic aortic (valve) insufficiency (Chronic) Nonrheumatic aortic (valve) stenosis (Chronic) Carotid artery disease (Chronic) Atherosclerotic heart disease of enterprise coronary artery without angina pectoris (Chronic) Previous LEANDER to proximal to mid LAD 3.0 X 32 mm Taxus 02/23/[address] Daquan Meyer, [facility];LEANDER to mid RCA 2.5 X 24 mm Synergy [facility] [facility]; PTCA/LEANDER of the mid LCX 03/10/[address] Torrez [facility]; Successful PTCA/LEANDER mid RCA with a 2.0 x 12balloon, followed by a 2.0 x 10 Angiosculpt, followed by a 2.5 x 16 Promus Synergy, post dilated with a 2.5 x 8 NC Balloon; 85%-->0%, no dissection 07/22/2018; PTCA/LEANDER to mid RCA instent restenosis 11/13/18; PTCA/NO stent to mid RCA 04/16/19; Successful PTCA/LEANDER mid RCA with a 2.0 x 10 Angiosculpt, followed with a 2.5 x 14 Resolute LEANDER, post dilated with a 2.5 x 12 NC balloon; 85%-->0%, no dissection 05/28/2019. Presence of stent in coronary artery (Chronic 05/28/19) Previous LEANDER to proximal to mid LAD 3.0 X 32 mm Taxus 02/23/[address] Daquan Meyer, [facility];LEANDER to mid RCA 2.5 X 24 mm Synergy 01/[facility] [facility] PTCA/LEANDER of the mid LCX 03/10/[address] Torrez [facility]; Successful PTCA/LEANDER mid RCA with a 2.0 x 12balloon, followed by a 2.0 x 10 Angiosculpt, followed by a 2.5 x 16 Promus Synergy, post dilated with a 2.5 x 8 NC Balloon; 85%-->0%, no dissection 07/22/2018; PTCA/LEANDER to mid RCA instent restenosis 11/13/18; PTCA/NO stent to mid RCA 04/16/19; PCI/LEANDER to RCA 05/28/19 Valvular heart disease (Chronic) Hypothyroidism (Chronic) Hyperlipidemia (Chronic) Medical History: Medical History (Last Reviewed 04/12/20 @ 01:[address] Jono Alex MD) Essential hypertension (Chronic) I10 ABDIAS (obstructive sleep apnea) (Chronic) G47.33 Initial AHI 35.5 Nonrheumatic mitral (valve) insufficiency (Chronic) I34.0 Nonrheumatic aortic (valve) insufficiency (Chronic) I35.1 Nonrheumatic aortic (valve) stenosis (Chronic) I35.0 Carotid artery disease (Chronic) I77.9 Atherosclerotic heart disease of enterprise coronary artery without angina pectoris (Chronic) I25.10 Previous LEANDER to proximal to mid LAD 3.0 X 32 mm Taxus 02/23/[address] Daquan Meyer, [facility];LEANDER to mid RCA 2.5 X 24 mm Synergy 01/19/[address] Patel,[facility]; PTCA/LEANDER of the mid LCX 03/10/[address] Torrez [facility]; Successful PTCA/LEANDER mid RCA with a 2.0 x 12balloon, followed by a 2.0 x 10 Angiosculpt, followed by a 2.5 x 16 Promus Synergy, post dilated with a 2.5 x 8 NC Balloon; 85%-->0%, no dissection 07/22/2018; PTCA/LEANDER to mid RCA instent restenosis 11/13/18; PTCA/NO stent to mid RCA 04/16/19; Successful PTCA/LEANDER mid RCA with a 2.0 x 10 Angiosculpt, followed with a 2.5 x 14 Resolute LEANDER, post dilated with a 2.5 x 12 NC balloon; 85%-->0%, no dissection 05/28/2019. Valvular heart disease (Chronic) I38 Hypothyroidism (Chronic) E03.9 Hyperlipidemia (Chronic) E78.5 Aortic insufficiency (Inactive) I35.1 CAD (coronary artery disease) (Inactive) I25.10 Allergies Iodinated Contrast Media [Iodinated Contrast- Oral and IV Dye] Allergy (Intermediate, Verified 04/07/20 17:39) Rash ramipril [From Altace] Adverse Reaction (Severe, Verified 04/07/20 17:39) cough Home Medications: Ambulatory Orders Medication Instructions Recorded levothyroxine 88 mcg tablet 88 mcg PO DAILY 90 Days 06/10/17 Ascorbic Acid [Vitamin C] 500 mg PO DAILY 01/16/18 Folic Acid 0.4 mg PO DAILY@0800 01/16/18 Ubidecarenone [Co Q-10] 100 mg PO DAILY 03/09/18 Aspirin E.C. [Ecotrin] 81 mg PO DAILY@0800 11/12/18 Calcium Citrate 600 mg PO TID 11/12/18 Multivitamins,Therapeutic 1 tab PO DAILY 11/12/18 [Multivitamin] [place]-3 Fatty Acids/Fish Oil [Fish 1 cap PO DAILY 11/12/18 Oil 1,000 mg Capsule] nitroglycerin 0.4 mg sublingual 0.4 mg SUBLINGUAL Q5-15M PRN 10 12/01/18 tablet Days #25 tab Acetaminophen [Tylenol Tablet] 650 mg PO Q6H PRN PRN tab 05/30/19 rivaroxaban 2.5 mg tablet 2.5 mg PO BID #60 tab 06/21/19 losartan 50 mg tablet 50 mg PO BID #180 tab 07/19/19 potassium chloride 10 mEq 10 meq PO DAILY #90 tab 07/19/19 tablet,extended release atorvastatin 40 mg tablet 40 mg PO DAILY 90 Days #90 tab 07/22/19 amlodipine 5 mg tablet 5 mg PO DAILY #90 tab 08/06/19 metoprolol succinate 50 mg 50 mg PO DAILY #90 tab 10/25/19 tablet,extended release 24 hr clopidogrel 75 mg tablet 75 mg PO DAILY #90 tab 02/14/20 isosorbide mononitrate 60 mg 30 mg PO BID tab 03/09/20 tablet,extended release 24 hr Diclofenac [Voltaren] 50 mg PO BIDCM #14 tab 04/07/20 triamterene 37.5 1 cap PO DAILY 04/10/20 mg-hydrochlorothiazide 25 mg capsule Surgical History: Surgical History (Last Reviewed 04/12/20 @ 01:[address] Jono Alex MD) History of percutaneous transluminal coronary angioplasty (Chronic) Onset Date: 04/16/19 Z98.61 PTCA/NO stent to mid RCA 04/16/19 Presence of stent in coronary artery (Chronic) Onset Date: 05/28/19 Z95.5 Previous LEANDER to proximal to mid LAD 3.0 X 32 mm Taxus 02/23/[address] Daquan Meyer, [facility];LEANDER to mid RCA 2.5 X 24 mm Synergy 01/19/[address] Patel,[facility]; PTCA/LEANDER of the mid LCX 03/10/[address] Torrez [facility]; Successful PTCA/LEANDER mid RCA with a 2.0 x 12balloon, followed by a 2.0 x 10 Angiosculpt, followed by a 2.5 x 16 Promus Synergy, post dilated with a 2.5 x 8 NC Balloon; 85%-->0%, no dissection 07/22/2018; PTCA/LEANDER to mid RCA instent restenosis 11/13/18; PTCA/NO stent to mid RCA 04/16/19; PCI/LEANDER to RCA 05/28/19 History of cholecystectomy Z90.49 Surgical History: angioplasty, cholecystectomy, - - Cardiac stents in 2003, one stent in January 2018, one stent in March 2018, one stent in July 2018 Psychiatric History: No pertinent psych hx [employer] AP[employer]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 Jono Alex MD) Mother Myocardial infarction Father Colon cancer History Items: Heart Disease - [place] Paternal Family History: Family History (Last Reviewed 04/12/20 @ 01:[address] Jono Alex MD) Mother Myocardial infarction Father Colon cancer History Items: Cancer - colon Review of Systems Constitutional: Reports: Anorexia, Chills, Fever, Malaise. Denies: Weight Change HEENT: Denies: Head Aches, Sinus Congestion, Sinus Drainage Cardiovascular: Reports: Chest Pain. Denies: Palpitations Respiratory: Reports: Cough, Shortness of Breath Gastrointestinal: Denies: Abdominal Pain, Nausea, Vomiting Genitourinary: Denies: Dysuria Musculoskeletal: Denies: Joint Pain, Joint Tenderness Skin: Denies: Rash, Wounds Neurological: Denies: Numbness, Tingling, Focal weakness Psychiatric: Denies: Anxiety, Depression, Homicidal Ideations, Suicidal Ideations Hematologic/ Lymphatic: Denies: Easy Bruising, Easy Bleeding VTE Information - Inpt Only VTE Present on Admission: No VTE Mechan Device Prophylaxis: None VTE Pharm Prophylaxis ordered?: No Reason prophylaxis not ordered:: Treatment Not Indicated - Continue home Xarelto for CAD. Patient Problems: Active and Suspected Problems (Last Reviewed 04/12/20 @ 01:[address] Jono Alex MD) Acute febrile illness (Acute) Chest pain (Acute) - Physical Exam Vitals/I&O's: Vital Signs Temp Pulse Resp BP Pulse Ox 98.9 F 69 18 126/46 H 93 04/11/20 23:50 04/11/20 23:50 04/11/20 23:50 04/11/20 23:50 04/11/20 23:50 Oxygen Delivery Method Room Air Weight: 75.3 kg Body Mass Index (BMI) 31.4 Intake and Output for Last 24 Hours 04/10/20 04/11/20 04/12/20 23:59 23:59 23:59 Intake Total 50 / 50 Balance 50 / 50 General: Alert, Oriented x3, Cooperative HEENT: Atraumatic, PERRLA, EOMI, Normocephalic Neck: Supple, No JVD, Negative Carotid Bruits Lungs: Clear to auscultation, Normal air movement Cardiovascular: Regular rate, Regular Rhythm, Normal S1, Normal S2, No murmurs Abdomen: Bowel Sounds Present, Soft, Non Tender Extremities: No edema, Capillary Refill Less than 3 Seconds Skin: No rashes, No breakdown Musculoskeletal: No Tenderness to Palpation of Joints or Extremities Neurological: Cranial nerves II-XII grossly intact Psych/Mental Status: Normal Affect, Appropriate Microbiology Past 72 Hours 04/11/20 20:30 Mucosa - Nose Respiratory Panel (PCR) - Final Laboratory Results 04/11/20 20:30: COVID-19 (AMANDA) Pending 04/11/20 21:30: WBC 5.9, RBC 3.91 L, Hgb 11.6 L, Hct 36.0 L, MCV 92.1, MCH 29.7, MCHC 32.2, RDW Std Deviation 47.9 H, RDW Coeff of Martha 14.2, Plt Count 222, MPV 10.2, Immature Gran % (Auto) 0.500, Neut % (Auto) 74.2 H, Lymph % (Auto) 11.1 L, [place] % (Auto) 8.8, Eos % (Auto) 4.4, Baso % (Auto) 1.0, Absolute Neuts (auto) 4.4, Absolute Lymphs (auto) 0.66 L, Nucleated RBC % 0 04/11/20 21:30: Sodium 135 L, Potassium 4.5, Chloride 100, Carbon Dioxide 28.0, Anion Gap 7, BUN 28 H, Creatinine 1.62 H, Estim Creat Clear Calc 20.20, Est GFR (MDRD) Af Amer 39 L, Est GFR (MDRD) Non-Af 32 L, BUN/Creatinine Ratio 17.3, Glucose 132 H, Calcium 9.5, Total Bilirubin 0.50, AST 46 H, ALT 29, Alkaline Phosphatase 73, Troponin I < 0.015, Total Protein 8.6 H, Albumin 2.6 L, Globulin 6.0 H, Albumin/Globulin Ratio 0.4 L 04/11/20 21:40: Lactic Acid 1.5 04/11/20 21:40: Procalcitonin 0.21 H Current Medications Sodium Chloride () 1,000 mls @ 125 mls/hr IV .Q8H LUDIN Last Admin: 04/11/20 21:29 Dose: 125 mls/hr Documented by: Assessment/Plan All Active Problems (Last Reviewed 04/12/20 @ 01:[address] Jono Alex MD) Acute febrile illness (Acute) Chest pain (Acute) Acute Febrile illness. Chest x-ray was interpreted by radiologist as chronic interstitial changes in the lower lobes however could not definitely exclude coexisting acute inflammatory disease. CT chest was recommended. Will obtain CT chest. Covid test returned negative. Patient denies loss of taste or loss of smell. She denies any known Covid exposure. Respiratory pathogen panel was negative. Will maintain on Covid precautions. Will obtain a CT chest. If CT chest is unremarkable consider discontinuing antibiotics; and discontinuing Covid precautions as necessary. Procalcitonin is not remarkable. Triglycerides, ferritin, D-dimer, and fibrinogen ordered. Blood culture x2 was obtained in the emergency department; follow. Infectious disease consult and pulmonary consult. Chest pain Likely secondary to acute febrile illness. EKG showed sinus arrhythmia with no ST or T wave abnormalities. Initial troponin was negative. Trend. 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 Creatinine is 1.62. Review of record shows a creatinine baseline around 1.3. BUN is 28. BUN over creatinine is 17.3. Reportedly was on Lasix but it was switched back to triamterene?hydrochlorothiazide. Likely prerenal from diuretic use. Avoid nephrotoxins. Home potassium, triamterene?hydrochlorothiazide, losartan, and diclofenac held Gentle IV hydration Trend BMP Hypertension Blood Pressure is not within goal. Home blood pressure medication continued. PRN labetalol needed labetalol ordered. DVT Prophylaxis Not indicated since patient is on Xarelto for CAD. Inpatient E&M: 21419 Init Hosp L3
--- NOTE | 2020-04-12 01:31 | CT_ITS ---
STUDY: CT CHEST WITHOUT CONTRAST REASON FOR EXAM: Female, 84 years old. PNEUMONIA SEEN ON XRAY,COUGH,CHILLS,NEG COVID TEST RADIATION DOSAGE (If Supplied By Facility): CTDIvol = ( 8.63 ) mGy, DLP = ( 327.70 ) mGycm TECHNIQUE: Transaxial imaging was performed without the administration of intravenous contrast material. Multiplanar coronal and sagittal images were reformatted. Individualized dose optimization techniques were used for this CT. COMPARISON: Chest x-ray April 11, 2020 FINDINGS: There is left greater than right apical thickening. There are scattered patchy almost nodular appearing opacities areas of interstitial thickening. In particular there is a nodule within the right lower lobe that measures 6.6 mm. There is a peripheral based nodule in the left lower lobe measuring 5.9 mm. There are peripheral right lung base nodules measuring up to 9.3 mm. There is a focus of small consolidation or nodule right lower lobe image #67 and measures 1.1 cm. There is no demonstrated pleural abnormality. There is a left axillary lymph node with mild surrounding edema that measures 2.9 x 1.6 cm. There is a right axillary lymph node measuring 3.0 x 1.1 cm. There are partially visualized nonspecific right greater than left neck soft tissue lymph nodes. There is [id number] cardiac enlargement. There are coronary calcifications. There is a suggestion of a possible prior cardiac stent. There are atypical bulky lymph nodes demonstrated. In the precarinal space there is a 2 x 1.8 cm lymph node. There is an AP window lymph node measuring 1.8 cm. There is a precarinal tracheal focus of lymph nodes each measuring 6 mm. There are bilateral axillary lymph nodes right greater than left measuring up to 1.5 cm. There is right hilar lymphadenopathy along with a noncontrasted nature of this study. Normal unenhanced pulmonary arteries. There is atherosclerotic calcification of the aortic arch with tortuosity and elongation of the aortic arch and descending thoracic aorta. There are multi-level degenerative changes of the thoracic spine. There are partially visualized subcentimeter retroverted lymph nodes. CT/Chest without Contrast IMPRESSION: Bulky mediastinal lymphadenopathy with accompanying axillary lymph nodes and multifocal pulmonary nodules. Findings raise concern for the possibility of metastatic disease. Consider the possibility of lymphoma possible leukemia or metastatic disease. Recommend further evaluation with CT scan with IV contrast correlation with any abdominal symptoms and consideration for the possibility of PET scan. There are areas of interstitial thickening within the lungs which may represent atypical infiltrates. There is a focal consolidation in the left upper lobe suspicious for pneumonia. Electronically Signed: Velma Mccabe MD at 3:30 EDT Tel , Service support ,
[2020-04-12] MEDS: 0.9% Normal Saline 1,000 ML 75 ML IV ×2 (02:45→16:14)
[2020-04-12 03:37] LABS: Fibrinogen 575 mg/dl (203-444)
[2020-04-12 03:46] LABS: Ferritin 286 ng/mL (8-252); Triglycerides 173 mg/dL
[2020-04-12 04:00] LABS: D-Dimer Quantitative (DVT/PE) 1.31 FEU/ug/m (0.27-0.49)
[2020-04-12] MEDS: 0.9% Saline Lock 10 ML Syringe IV (04:04)
[2020-04-12 04:16] LABS: Bacteria 0 SEEN /hpf (None Seen); Mucous, Urine 0 SEEN /hpf (<or=2+)
[2020-04-12 04:19] LABS: Color, Urine Yellow (Yellow); Glucose, Dipstick Normal (Normal); Ketone-Dipstick 5 mg/dl (Negative); Leukocyte Esterase-Dipstick 25 /ul (Negative); Nitrite-Dipstick Negative (Negative); Occult Blood-Urine 10 /ul (Negative); Protein-Dipstick 500 mg/dl (Negative); Specific Gravity, Urine 1.015 (1.002-1.030); Urine Bilirubin Dipstick Negative (Negative); Urine Clarity Clear (Clear); Urine Urobilinogen Normal (Normal); Urine pH 6.5 (5.0 - 8.0)
[2020-04-12 04:24] LABS: Fine Granular Cast- Urine 0-5 SEEN /lpf (0-5); Red Blood Cells-Urine 0-5 SEEN /hpf (0-5); Squamous Epithelial Cells - UA 0-5 SEEN /hpf (5-10); White Blood Cells 0-5 SEEN /hpf (0-5)
[2020-04-12 04:49] LABS: International Normalized Ratio 1.2; Partial Thromboplast Time 31.7 Seconds (24.1-36.2); Prothrombin Time (Protime)PT. 14.9 SECONDS (11.7-14.9)
[2020-04-12] MEDS: Heparin Injection (Vial) 5,000 UNIT/ML VIAL 5000 UNIT IV (06:32)
[2020-04-12] MEDS: HEPARIN/D5w 25,000 UNITS 25,000 UNITS/250 ML IV.SOLN. 11 UNITS IV (06:33)
--- NOTE | 2020-04-12 06:39 | NURSING ---
Heparin rate verified with charger operatorBalbina MEAD
[2020-04-12 06:48] LABS: Absolute Lymphocyte Count 0.98 X10^3/uL (0.83-4.51); Absolute Neutrophil Count 3.1 X10^3/uL (2.0-7.7); Basophil# 0.05 X10^3/uL; Eosinophils% 7.8 % (0-5); Hematocrit 31.3 % (37-47); Hemoglobin 10.2 g/dL (12.0-15.0); Lymphocyte # 0.98 X10^3/ul (4.0); Mean Corp Hgb Conc 32.6 g/dL (32-36); Mean Corpuscular Hgb 30.1 pg (27.0-32.0); Mean Corpuscular Volume 92.3 fL (81-99); Mean Platelet Vol. 9.8 fl (6.2-12.0); Monocyte# 0.58 X10^3/uL; Monocyte% 11.2 % (0-10); NRBC Flagged by Analyzer 0 % (0-5); Neutrophil # 3.12 X10^3/uL (2.7-7.7); Neutrophil % 60.4 % (47-70); Platelet Count 189 K/mm3 (150-450); RBC Distribution Width CV 14.4 % (11.6-14.6); RBC Distribution Width SD 48.7 fl (35.1-43.9); Red Blood Count 3.39 M/mm3 (4.2-5.4); White Blood Count 5.2 K/mm3 (4.4-11.0)
[2020-04-12 07:19] LABS: ALB/GLOB Ratio 0.4 RATIO (0.9-2.4); AST(SGOT) 29 U/L (15-37); Alanine Aminotransfer ALT/SGPT 21 U/L (13-56); Albumin, Serum 2.1 g/dL (3.2-5.0); Alkaline Phosphatase 55 U/L (45-117); Anion Gap 6 (5-15); BUN 31 mg/dL (7-18); BUN/Creat Ratio 19.7 RATIO (10-20); Calcium,Total 8.6 mg/dL (8.5-10.1); Chloride 104 mmol/L (98-107); Creatinine, Serum 1.57 mg/dL (0.55-1.02); EST Glomerular Filtration Rate 34 mL/min (>60); Est Glom Filt Rate - Afr Amer 41 mL/min (>60); Estimated Creatinine Clearance 20.85 ml/min; Globulin 4.8 g/dL (2.2-4.2); Glucose 96 mg/dL (74-106); Protein, Total 6.9 g/dL (6.4-8.2); Sodium Level 135 mmol/L (136-145)
[2020-04-12] MEDS: Folic Acid 1 MG Tablet 0.5 MG PO (09:48)
[2020-04-12] MEDS: Ascorbic Acid 500 MG Tablet PO (09:48)
[2020-04-12] MEDS: Aspirin E.C. 81 MG Tablet PO (09:48)
[2020-04-12] MEDS: Metoprolol(XL)Succ 50 MG Tablet PO (09:48)
[2020-04-12] MEDS: amLODIPine 5 MG Tablet PO (09:49)
[2020-04-12] MEDS: Isosorbide Mononitrate 30 MG Tablet PO ×2 (09:49→21:07)
[2020-04-12] MEDS: Clopidogrel Bisulfate 75 MG Tablet PO (09:49)
[2020-04-12] MEDS: Multivitamins,Therapeutic Tablet 1 TABLET PO (09:49)
[2020-04-12] MEDS: Levothyroxine 88 MCG Tablet PO (09:49)
[2020-04-12] MEDS: Calcium Carbonate 500 MG Tablet 1000 MG PO (09:55)
--- NOTE | 2020-04-12 14:38 | CASEMGMT ---
[facility]ST[facility] HODGE assessment: Face to Face with patient for initial transition planning/care coordination assessment. [facility]OD[facility] introduced self and role at [facility], pt voices understanding and consents to assessment at this time. Pt is sitting up in bed in no distress at this time. Pt is A/Ox4 at this time and answers all questions appropriately at this time. Care providers, pharmacy, and demographics verified at this time. Presentation: Chest pain today. Fever(102 at home)/SOB Admitting dx: Acute febrile illness PCP: Stephenie Specialists: Cassy, cardio; jade Membreno Preferred Pharmacy: [facility] Insurance: [employer] A/B, [employer] Prescription Benefit: Yes Living Will/HPOA: Pt states has LW/HPOA and is aware that they are not on file at [facility] at this time. Pt states her , Kedar Jean, is HPOA. LNOK: Kedar Jean, ; Li Harper, daughter Living Arrangements: Pt states lives with in 1 story home with basement and states no concerns at home at this time. Pt states is independent with ADL's. Transportation: Pt states drives self and states no transportation concerns at this time. DME/HHC: Pt states has a cpap at home and states no need for any further DME at this time. Pt states no hx of HHC or SNF in the past. Pt states no concerns with going home at time of discharge. Pt states is retired. Pt states does not smoke cigarettes or drink ETOH. Pt voices no further concerns/needs at this time. CM to follow for any further discharge planning/needs. Advised pt to ask for CM if any further questions/concerns/needs arise, voices understanding. Pt Goal: Home Plan: [place] [facility]
--- NOTE | 2020-04-12 16:13 | CON.PCM_ITS ---
Problem List (1) Acute febrile illness Status: Acute Reason for Consult: fever Consulted by: Dr. Alex History of Present Illness: The patient is a 84 year old F who presented overnight with 2-3 weeks of loss of appetite, 10-12lb weight loss, not feeling well. Had a few days of cough and dyspnea, no sputum. Yesterday, developed new dull chest pain and chills, came to ED. Was in ED 04/07 with sudden onset R hand weakness, now resolved. In ED now, covid was neg. No aches, no change in taste or smell, no sick contacts. Lives with who has mild cough but otherwise feels fine. CT chest showed diffuse disease concerning for metastatic cancer and possible pneumonia. Started on azithro/ceftriaxone and hep gtt. Fever to 102.3 on admit. Full ROS performed and neg except as noted above. No fam h/o lymphoma. Father late 20s of colon cancer. She has had multiple negative colonoscopies. - Medical History Past Medical History (Chronic Problems): Chronic Problems (Last Reviewed 04/12/20 @ 01:[address] Jono Alex MD) Essential hypertension (Chronic) History of percutaneous transluminal coronary angioplasty (Chronic 04/16/19) PTCA/NO stent to mid RCA 04/16/19 Angina pectoris (Chronic) ABDIAS (obstructive sleep apnea) (Chronic) Initial AHI 35.5 Nonrheumatic mitral (valve) insufficiency (Chronic) Nonrheumatic aortic (valve) insufficiency (Chronic) Nonrheumatic aortic (valve) stenosis (Chronic) Carotid artery disease (Chronic) Atherosclerotic heart disease of [place] coronary artery without angina pectoris (Chronic) Previous LEANDER to proximal to mid LAD 3.0 X 32 mm Taxus 02/23/[address] Daquan Meyer, [facility];LEANDER to mid RCA 2.5 X 24 mm [facility] [facility]; [facility]/LEANDER of the mid LCX 03/10/[address] Torrez [facility]; Successful PTCA/LEANDER mid RCA with a 2.0 x 12balloon, followed by a 2.0 x 10 Angiosculpt, followed by a 2.5 x 16 Promus Synergy, post dilated with a 2.5 x 8 NC Balloon; 85%-->0%, no dissection 07/22/2018; PTCA/LEANDER to mid RCA instent restenosis 11/13/18; PTCA/NO stent to mid RCA 04/16/19; Successful PTCA/LEANDER mid RCA with a 2.0 x 10 Angiosculpt, followed with a 2.5 x 14 Resolute LEANDER, post dilated with a 2.5 x 12 NC balloon; 85%-->0%, no dissection 05/28/2019. Presence of stent in coronary artery (Chronic 05/28/19) Previous LEANDER to proximal to mid LAD 3.0 X 32 mm Taxus 02/23/[address] Daquan Meyer, [facility];LEANDER to mid RCA 2.5 X 24 mm Synergy 01/19/[address] Patel,[facility]; PTCA/LEANDER of the mid LCX 03/10/[address] Torrez [facility]; Successful PTCA/LEANDER mid RCA with a 2.0 x 12balloon, followed by a 2.0 x 10 Angiosculpt, followed by a 2.5 x 16 Promus Synergy, post dilated with a 2.5 x 8 NC Balloon; 85%-->0%, no dissection 07/22/2018; PTCA/LEANDER to mid RCA instent restenosis 11/13/18; PTCA/NO stent to mid RCA 04/16/19; PCI/LEANDER to RCA 05/28/19 Valvular heart disease (Chronic) Hypothyroidism (Chronic) Hyperlipidemia (Chronic) Allergies/Adverse Reactions: Allergies Iodinated Contrast Media [Iodinated Contrast- Oral and IV Dye] Allergy (Intermediate, Verified 04/07/20 17:39) Rash ramipril [From Altace] Adverse Reaction (Severe, Verified 04/07/20 17:39) cough Home Medications: Ambulatory Orders Medication Instructions Recorded levothyroxine 88 mcg tablet 88 mcg PO DAILY 90 Days 06/10/17 Ascorbic Acid [Vitamin C] 500 mg PO DAILY 01/16/18 Folic Acid 0.4 mg PO DAILY@0800 01/16/18 Ubidecarenone [Co Q-10] 100 mg PO DAILY 03/09/18 Aspirin E.C. [Ecotrin] 81 mg PO DAILY@0800 11/12/18 Calcium Citrate 600 mg PO TID 11/12/18 Multivitamins,Therapeutic 1 tab PO DAILY 11/12/18 [Multivitamin] [place]-3 Fatty Acids/Fish Oil [Fish 1 cap PO DAILY 11/12/18 Oil 1,000 mg Capsule] nitroglycerin 0.4 mg sublingual 0.4 mg SUBLINGUAL Q5-15M PRN 10 12/01/18 tablet Days #25 tab Acetaminophen [Tylenol Tablet] 650 mg PO Q6H PRN PRN tab 05/30/19 rivaroxaban 2.5 mg tablet 2.5 mg PO BID #60 tab 06/21/19 losartan 50 mg tablet 50 mg PO BID #180 tab 07/19/19 potassium chloride 10 mEq 10 meq PO DAILY #90 tab 07/19/19 tablet,extended release atorvastatin 40 mg tablet 40 mg PO DAILY 90 Days #90 tab 07/22/19 amlodipine 5 mg tablet 5 mg PO DAILY #90 tab 08/06/19 metoprolol succinate 50 mg 50 mg PO DAILY #90 tab 10/25/19 tablet,extended release 24 hr clopidogrel 75 mg tablet 75 mg PO DAILY #90 tab 02/14/20 isosorbide mononitrate 60 mg 30 mg PO BID tab 03/09/20 tablet,extended release 24 hr Diclofenac [Voltaren] 50 mg PO BIDCM #14 tab 04/07/20 triamterene 37.5 1 cap PO DAILY 04/10/20 mg-hydrochlorothiazide 25 mg capsule - Social History Tobacco Use: non-smoker Vital Signs Temp Pulse Resp BP Pulse Ox 98.0 F 73 16 141/79 H 95 04/12/20 12:54 04/12/20 13:39 04/12/20 12:54 04/12/20 12:54 04/12/20 12:54 Oxygen Delivery Method Room Air Weight: 75 kg Body Mass Index (BMI) 31.2 Microbiology Past 72 Hours 04/12/20 04:10 Streptococcus pneumoniae Antigen (M - Final Urine, Clean Catch 04/12/20 04:10 Legionella Antigen - Final Urine, Clean Catch 04/11/20 20:30 Respiratory Panel (PCR) - Final Mucosa - Nose Laboratory Tests Past 24 Hrs 04/11/20 04/11/20 04/11/20 20:30 21:30 21:30 WBC 5.9 RBC 3.91 L Hgb 11.6 L Hct 36.0 L MCV 92.1 MCH 29.7 MCHC 32.2 RDW Std Deviation 47.9 H RDW Coeff of Martha 14.2 Plt Count 222 MPV 10.2 Immature Gran % (Auto) 0.500 Neut % (Auto) 74.2 H Lymph % (Auto) 11.1 L [place] % (Auto) 8.8 Eos % (Auto) 4.4 Baso % (Auto) 1.0 Absolute Neuts (auto) 4.4 Absolute Lymphs (auto) 0.66 L Nucleated RBC % 0 PT INR APTT Fibrinogen D-Dimer Quant (PE/DVT) Sodium 135 L Potassium 4.5 Chloride 100 Carbon Dioxide 28.0 Anion Gap 7 BUN 28 H Creatinine 1.62 H Estim Creat Clear Calc 20.20 Est GFR (MDRD) Af Amer 39 L Est GFR (MDRD) Non-Af 32 L BUN/Creatinine Ratio 17.3 Glucose 132 H Lactic Acid Calcium 9.5 Ferritin Total Bilirubin 0.50 AST 46 H ALT 29 Alkaline Phosphatase 73 Troponin I < 0.015 Total Protein 8.6 H Albumin 2.6 L Globulin 6.0 H Albumin/Globulin Ratio 0.4 L Triglycerides Procalcitonin Urine Color Urine Clarity Urine pH Ur Specific [place] Urine Protein Urine Glucose (UA) Urine Ketones Urine Occult Blood Urine Nitrite Urine Bilirubin Urine Urobilinogen Ur Leukocyte Esterase Urine RBC Urine WBC Ur Squamous Epith Cells Urine Bacteria Fine Granular Casts Urine Mucus COVID-19 (AMANDA) Not Detected 04/11/20 04/11/20 04/12/20 21:40 21:40 03:20 WBC RBC Hgb Hct MCV MCH MCHC RDW Std Deviation RDW Coeff of [place] Plt Count MPV Immature Gran % (Auto) Neut % (Auto) Lymph % (Auto) [place] % (Auto) Eos % (Auto) Baso % (Auto) Absolute Neuts (auto) Absolute Lymphs (auto) Nucleated RBC % PT INR APTT Fibrinogen 575 H D-Dimer Quant (PE/DVT) 1.31 H* Sodium Potassium Chloride Carbon Dioxide Anion Gap BUN Creatinine Estim Creat Clear Calc Est GFR (MDRD) Af Amer Est GFR (MDRD) Non-Af BUN/Creatinine Ratio Glucose Lactic Acid 1.5 Calcium Ferritin Total Bilirubin AST ALT Alkaline Phosphatase Troponin I Total Protein Albumin Globulin Albumin/Globulin Ratio Triglycerides Procalcitonin 0.21 H Urine Color Urine Clarity Urine pH Ur Specific [place] Urine Protein Urine Glucose (UA) Urine Ketones Urine Occult Blood Urine Nitrite Urine Bilirubin Urine Urobilinogen Ur Leukocyte Esterase Urine RBC Urine WBC Ur Squamous Epith Cells Urine Bacteria Fine Granular Casts Urine Mucus COVID-19 (AMANDA) 04/12/20 04/12/20 04/12/20 03:20 03:20 04:10 WBC RBC Hgb Hct MCV MCH MCHC RDW Std Deviation RDW Coeff of [place] Plt Count MPV Immature Gran % (Auto) Neut % (Auto) Lymph % (Auto) [place] % (Auto) Eos % (Auto) Baso % (Auto) Absolute Neuts (auto) Absolute Lymphs (auto) Nucleated RBC % PT 14.9 INR 1.2 APTT 31.7 Fibrinogen D-Dimer Quant (PE/DVT) Sodium Potassium Chloride Carbon Dioxide Anion Gap BUN Creatinine Estim Creat Clear Calc Est GFR (MDRD) Af Amer Est GFR (MDRD) Non-Af BUN/Creatinine Ratio Glucose Lactic Acid Calcium Ferritin 286 H Total Bilirubin AST ALT Alkaline Phosphatase Troponin I < 0.015 Total Protein Albumin Globulin Albumin/Globulin Ratio Triglycerides 173 Procalcitonin Urine Color Yellow Urine Clarity Clear Urine pH 6.5 Ur Specific [place] 1.015 Urine Protein 500 H Urine Glucose (UA) Normal Urine Ketones 5 H Urine Occult Blood 10 H Urine Nitrite Negative Urine Bilirubin Negative Urine Urobilinogen Normal Ur Leukocyte Esterase 25 H Urine RBC 0-5 SEEN Urine WBC 0-5 SEEN Ur Squamous Epith Cells 0-5 SEEN Urine Bacteria 0 SEEN Fine Granular Casts 0-5 SEEN Urine Mucus 0 SEEN COVID-19 (AMANDA) 04/12/20 04/12/20 04/12/20 06:30 06:30 08:54 WBC 5.2 RBC 3.39 L Hgb 10.2 L Hct 31.3 L MCV 92.3 MCH 30.1 MCHC 32.6 RDW Std Deviation 48.7 H RDW Coeff of [place] 14.4 Plt Count 189 MPV 9.8 Immature Gran % (Auto) 0.600 Neut % (Auto) 60.4 Lymph % (Auto) 19.0 [place] % (Auto) 11.2 H Eos % (Auto) 7.8 H Baso % (Auto) 1.0 Absolute Neuts (auto) 3.1 Absolute Lymphs (auto) 0.98 Nucleated RBC % 0 PT INR APTT Fibrinogen D-Dimer Quant (PE/DVT) Sodium 135 L Potassium 4.0 Chloride 104 Carbon Dioxide 25.0 Anion Gap 6 BUN 31 H Creatinine 1.57 H Estim Creat Clear Calc 20.85 Est GFR (MDRD) Af Amer 41 L Est GFR (MDRD) Non-Af 34 L BUN/Creatinine Ratio 19.7 Glucose 96 Lactic Acid Calcium 8.6 Ferritin Total Bilirubin 0.30 AST 29 ALT 21 Alkaline Phosphatase 55 Troponin I < 0.015 < 0.015 Total Protein 6.9 Albumin 2.1 L Globulin 4.8 H Albumin/Globulin Ratio 0.4 L Triglycerides Procalcitonin Urine Color Urine Clarity Urine pH Ur Specific [place] Urine Protein Urine Glucose (UA) Urine Ketones Urine Occult Blood Urine Nitrite Urine Bilirubin Urine Urobilinogen Ur Leukocyte Esterase Urine RBC Urine WBC Ur Squamous Epith Cells Urine Bacteria Fine Granular Casts Urine Mucus COVID-19 (AMANDA) 04/12/20 12:30 WBC RBC Hgb Hct MCV MCH MCHC RDW Std Deviation RDW Coeff of [place] Plt Count MPV Immature Gran % (Auto) Neut % (Auto) Lymph % (Auto) [place] % (Auto) Eos % (Auto) Baso % (Auto) Absolute Neuts (auto) Absolute Lymphs (auto) Nucleated RBC % PT INR APTT 105.0 H* Fibrinogen D-Dimer Quant (PE/DVT) Sodium Potassium Chloride Carbon Dioxide Anion Gap BUN Creatinine Estim Creat Clear Calc Est GFR (MDRD) Af Amer Est GFR (MDRD) Non-Af BUN/Creatinine Ratio Glucose Lactic Acid Calcium Ferritin Total Bilirubin AST ALT Alkaline Phosphatase Troponin I Total Protein Albumin Globulin Albumin/Globulin Ratio Triglycerides Procalcitonin Urine Color Urine Clarity Urine pH Ur Specific [place] Urine Protein Urine Glucose (UA) Urine Ketones Urine Occult Blood Urine Nitrite Urine Bilirubin Urine Urobilinogen Ur Leukocyte Esterase Urine RBC Urine WBC Ur Squamous Epith Cells Urine Bacteria Fine Granular Casts Urine Mucus COVID-19 (AMANDA) - Other Studies Radiology: [] reviewed Other Studies: [] Route of nutrition/ use of supplements: [] Nutritional Intake: [] IV Site: [] [place] Catheter: [] - Physical Exam General: Alert, Oriented x3, Cooperative, No apparent distress HEENT: Atraumatic, PERRLA, EOMI Neck: Supple, No Nodes Lungs: Rhonchi - L base Cardiovascular: Regular rate, Regular Rhythm, Murmur Abdomen: Soft, Non Tender, Non-Distended Extremities: No edema Skin: No rashes IV Site: Peripheral, without redness Musculoskeletal: No Tenderness to Palpation of Joints or Extremities Neurological: Cranial nerves II-XII grossly intact - Assessment/Plan Antibiotics: [] Assessment/Plan: [] Active and Suspected Problems (Last Reviewed 04/12/20 @ 01:[address] Jono Alex MD) Acute febrile illness (Acute) Chest pain (Acute) Concern for metastatic cancer, possible associated pneumonia. Discussed CT results with her. Covid neg. Cont azithro/ceftriaxone for now. Pulm to see. Will need biopsy. Will follow, thank you.
[2020-04-12] MEDS: DiphenhydrAMINE 25 MG Capsule 50 MG PO (17:01)
[2020-04-12] MEDS: predniSONE 20 MG Tablet 50 MG PO ×2 (17:01→23:13)
[2020-04-12 17:56] LABS: LDH 261 U/L (84-246); Uric Acid 7.7 mg/dL (2.6-6.0)
[2020-04-12 18:01] LABS: Vitamin B12 492 pg/mL (211-911)
--- NOTE | 2020-04-12 18:12 | PCM.CONS.PUL ---
Problem List (1) Mediastinal lymphadenopathy Status: Acute (2) Acute febrile illness Status: Acute (3) History of percutaneous transluminal coronary angioplasty Status: Chronic Comment: PTCA/NO stent to mid RCA 04/16/19 (4) Angina pectoris Status: Chronic (5) ABDIAS (obstructive sleep apnea) Status: Chronic Comment: Initial AHI 35.5 (6) Nonrheumatic mitral (valve) insufficiency Status: Chronic (7) Nonrheumatic aortic (valve) insufficiency Status: Chronic (8) Nonrheumatic aortic (valve) stenosis Status: Chronic (9) Carotid artery disease Status: Chronic Qualifiers: Carotid artery disease type: stenosis Laterality: bilateral Qualified Code(s): I65.23 - Occlusion and stenosis of bilateral carotid arteries (10) Hypothyroidism Status: Chronic Qualifiers: Hypothyroidism type: unspecified Qualified Code(s): E03.9 - Hypothyroidism, unspecified (11) Hyperlipidemia Status: Chronic Qualifiers: Hyperlipidemia type: unspecified Qualified Code(s): E78.5 - Hyperlipidemia, unspecified Reason for Consult Date of Consultation: 04/12/20 Reason for Consultation: Mediastinal lymphadenopathy History of Present Illness: The patient is an 84 year old F, with past medical history listed below, who presented [facility] on 04/11/2020 secondary to cough, chest pain, fever and shortness of breath. Patient also reported some generalized malaise. Patient had reported symptoms began yesterday in the ER. Patient denied any sick contacts. In the ER, patient was noted to have a fever of 102.3 ?F. Patient was also hypertensive at 177/63. Laboratory work-up was relatively unremarkable. Patient did not have a leukocytosis or significant anemia. Patient's creatinine was 1.62 and lactate was normal at 1.5. Glucose was slightly elevated at 132, but LFTs were within normal limits. Procalcitonin was low at 0.21. Patient did have a CT scan of the chest that was consistent with significant mediastinal lymphadenopathy. Patient was admitted to the Covid floor pending a Covid test. Patient's Covid test eventually came back negative. Patient denied smoking history on my evaluation. Patient denies any alcohol or drugs. Patient does state that she had extensive travel around [place], but nothing internationally. Patient has an extensive cardiac history, but is never had a CT scan previously. Patient did have a stress test recently that she said was okay. In retrospect, patient states that she had an acute illness in August with her and has not felt the same since. Patient also reports that she may have had some mild wheezing, but nothing I would use an inhaler for. Review of systems otherwise negative from a constitutional, HEENT, respiratory, cardiovascular, GI, genitourinary, musculoskeletal, skin, neurologic, psychiatric and hematologic system unless stated above. Past Medical History Past Medical History (Chronic Problems): Chronic Problems (Last Reviewed 04/12/20 @ 01:[address] Jono Alex MD) Essential hypertension (Chronic) History of percutaneous transluminal coronary angioplasty (Chronic 04/16/19) PTCA/NO stent to mid RCA 04/16/19 Angina pectoris (Chronic) ABDIAS (obstructive sleep apnea) (Chronic) Initial AHI 35.5 Nonrheumatic mitral (valve) insufficiency (Chronic) Nonrheumatic aortic (valve) insufficiency (Chronic) Nonrheumatic aortic (valve) stenosis (Chronic) Carotid artery disease (Chronic) Atherosclerotic heart disease of [place] coronary artery without angina pectoris (Chronic) Previous LEANDER to proximal to mid LAD 3.0 X 32 mm Taxus 02/23/[address] Daquan Meyer, [facility];LEANDER to mid RCA 2.5 X 24 mm Synergy 01/19/[address] Patel,[facility]; PTCA/LEANDER of the mid LCX 03/10/[address] Torrez [facility]; Successful PTCA/LEANDER mid RCA with a 2.0 x 12balloon, followed by a 2.0 x 10 Angiosculpt, followed by a 2.5 x 16 Promus Synergy, post dilated with a 2.5 x 8 NC Balloon; 85%-->0%, no dissection 07/22/2018; PTCA/LEANDER to mid RCA instent restenosis 11/13/18; PTCA/NO stent to mid RCA 04/16/19; Successful PTCA/LEANDER mid RCA with a 2.0 x 10 Angiosculpt, followed with a 2.5 x 14 Resolute LEANDER, post dilated with a 2.5 x 12 NC balloon; 85%-->0%, no dissection 05/28/2019. Presence of stent in coronary artery (Chronic 05/28/19) Previous LEANDER to proximal to mid LAD 3.0 X 32 mm Taxus 02/23/[address] Daquan Meyer, [facility];LEANDER to mid RCA 2.5 X 24 mm [facility] [facility]; PTCA/LEANDER of the mid LCX 03/10/[address] Torrez [facility]; Successful PTCA/LEANDER mid RCA with a 2.0 x 12balloon, followed by a 2.0 x 10 Angiosculpt, followed by a 2.5 x 16 Promus Synergy, post dilated with a 2.5 x 8 NC Balloon; 85%-->0%, no dissection 07/22/2018; PTCA/LEANDER to mid RCA instent restenosis 11/13/18; PTCA/NO stent to mid RCA 04/16/19; PCI/LEANDER to RCA 05/28/19 Valvular heart disease (Chronic) Hypothyroidism (Chronic) Hyperlipidemia (Chronic) Medical History: Medical History (Last Reviewed 04/12/20 @ 01:[address] Jono Alex MD) Essential hypertension (Chronic) I10 ABDIAS (obstructive sleep apnea) (Chronic) G47.33 Initial AHI 35.5 Nonrheumatic mitral (valve) insufficiency (Chronic) I34.0 Nonrheumatic aortic (valve) insufficiency (Chronic) I35.1 Nonrheumatic aortic (valve) stenosis (Chronic) I35.0 Carotid artery disease (Chronic) I77.9 Atherosclerotic heart disease of [place] coronary artery without angina pectoris (Chronic) I25.10 Previous LEANDER to proximal to mid LAD 3.0 X 32 mm Taxus 02/23/[address] Daquan Meyer, [facility];LEANDER to mid RCA 2.5 X 24 mm Sy[facility] [facility]; PTCA/LEANDER of the mid LCX 03/10/[address] Torrez [facility]; Successful PTCA/LEANDER mid RCA with a 2.0 x 12balloon, followed by a 2.0 x 10 Angiosculpt, followed by a 2.5 x 16 Promus Synergy, post dilated with a 2.5 x 8 NC Balloon; 85%-->0%, no dissection 07/22/2018; PTCA/LEANDER to mid RCA instent restenosis 11/13/18; PTCA/NO stent to mid RCA 04/16/19; Successful PTCA/LEANDER mid RCA with a 2.0 x 10 Angiosculpt, followed with a 2.5 x 14 Resolute LEANDER, post dilated with a 2.5 x 12 NC balloon; 85%-->0%, no dissection 05/28/2019. Valvular heart disease (Chronic) I38 Hypothyroidism (Chronic) E03.9 Hyperlipidemia (Chronic) E78.5 Aortic insufficiency (Inactive) I35.1 CAD (coronary artery disease) (Inactive) I25.10 Allergies Iodinated Contrast Media [Iodinated Contrast- Oral and IV Dye] Allergy (Intermediate, Verified 04/07/20 17:39) Rash ramipril [From Altace] Adverse Reaction (Severe, Verified 04/07/20 17:39) cough Home Medications: Ambulatory Orders Medication Instructions Recorded levothyroxine 88 mcg tablet 88 mcg PO DAILY 90 Days 06/10/17 Ascorbic Acid [Vitamin C] 500 mg PO DAILY 01/16/18 Folic Acid 0.4 mg PO DAILY@0800 01/16/18 Ubidecarenone [Co Q-10] 100 mg PO DAILY 03/09/18 Aspirin E.C. [Ecotrin] 81 mg PO DAILY@0800 11/12/18 Calcium Citrate 600 mg PO TID 11/12/18 Multivitamins,Therapeutic 1 tab PO DAILY 11/12/18 [Multivitamin] [place]-3 Fatty Acids/Fish Oil [Fish 1 cap PO DAILY 11/12/18 Oil 1,000 mg Capsule] nitroglycerin 0.4 mg sublingual 0.4 mg SUBLINGUAL Q5-15M PRN 10 12/01/18 tablet Days #25 tab Acetaminophen [Tylenol Tablet] 650 mg PO Q6H PRN PRN tab 05/30/19 rivaroxaban 2.5 mg tablet 2.5 mg PO BID #60 tab 06/21/19 losartan 50 mg tablet 50 mg PO BID #180 tab 07/19/19 potassium chloride 10 mEq 10 meq PO DAILY #90 tab 07/19/19 tablet,extended release atorvastatin 40 mg tablet 40 mg PO DAILY 90 Days #90 tab 07/22/19 amlodipine 5 mg tablet 5 mg PO DAILY #90 tab 08/06/19 metoprolol succinate 50 mg 50 mg PO DAILY #90 tab 10/25/19 tablet,extended release 24 hr clopidogrel 75 mg tablet 75 mg PO DAILY #90 tab 02/14/20 isosorbide mononitrate 60 mg 30 mg PO BID tab 03/09/20 tablet,extended release 24 hr Diclofenac [Voltaren] 50 mg PO BIDCM #14 tab 04/07/20 triamterene 37.5 1 cap PO DAILY 04/10/20 mg-hydrochlorothiazide 25 mg capsule Surgical History: Surgical History (Last Reviewed 04/12/20 @ 01:[address] Jono Alex MD) History of percutaneous transluminal coronary angioplasty (Chronic) Onset Date: 04/16/19 Z98.61 PTCA/NO stent to mid RCA 04/16/19 Presence of stent in coronary artery (Chronic) Onset Date: 05/28/19 Z95.5 Previous LEANDER to proximal to mid LAD 3.0 X 32 mm Taxus 02/23/[address] Daquan Meyer, [facility];LEANDER to mid RCA 2.5 X 24 mm Synergy 01/19/[address] Patel,[facility]; PTCA/LEANDER of the mid LCX 03/10/[address] 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 Jono Alex MD) Mother Myocardial infarction Father Colon cancer History Items: Heart Disease - [place] Paternal Family History: Family History (Last Reviewed 04/12/20 @ 01:[address] Jono Alex MD) Mother Myocardial infarction Father Colon cancer History Items: Cancer - colon Review of Systems Comment: See HPI Patient Problems: Active and Suspected Problems (Last Reviewed 04/12/20 @ 01:[address] Jono Alex MD) Acute febrile illness (Acute) Chest pain (Acute) Objective: All imaging was personally reviewed. Patient does have extensive mediastinal lymphadenopathy with wrapping around the right and left mainstem bronchi. Exact quantification is difficult given lack of contrast. Patient has not had pulmonary function test previously. Patient has had multiple drug stents with the most recent being in May 2019 - Physical Exam Vitals/I&O's: Vital Signs Temp Pulse Resp BP Pulse Ox 36.7 C 73 16 141/79 H 95 04/12/20 12:54 04/12/20 13:39 04/12/20 12:54 04/12/20 12:54 04/12/20 12:54 Oxygen Delivery Method Room Air Weight: 75 kg Body Mass Index (BMI) 31.2 Intake and Output for Last 24 Hours 04/10/20 04/11/20 04/12/20 23:59 23:59 23:59 Intake Total 4164.87 / 4164.87 Balance 4164.87 / 4164.87 General: Alert, Oriented x3, Cooperative, No apparent distress, Well developed, Well nourished, - - Speaking in full sentences. HEENT: Atraumatic, PERRLA, EOMI, Normocephalic, - - No scleral icterus or injection noted Oral: Moist Mucosa, No Gingival or Mucosal Lesions/ Ulcerations Neck: Supple, No JVD, No Nodes, Trachea Midline Lungs: No rhonchi, No wheeze, No rales, Diminished, - - No stridor noted. Cardiovascular: Regular rate, Regular Rhythm, Normal S1, Normal S2, No murmurs, No rub noted, No Gallop Abdomen: Bowel Sounds Present, Soft, Non Tender, Non-Distended, Obese Extremities: No clubbing, No cyanosis, No edema, Capillary Refill Less than 3 Seconds Skin: No rashes, No breakdown Musculoskeletal: No Tenderness to Palpation of Joints or Extremities Lymphatic: No Cervical, Supraclavicular, or Inguinal Adenopathy Neurological: Cranial nerves II-XII grossly intact, Neuro grossly intact, Motor Exam 5/5 strength throughout Psych/Mental Status: Alert and oriented to time, place, person, mood and affect Microbiology Past 72 Hours 04/12/20 04:10 Urine, Clean Catch Streptococcus pneumoniae Antigen (M - Final 04/12/20 04:10 Urine, Clean Catch Legionella Antigen - Final 04/11/20 20:30 Mucosa - Nose Respiratory Panel (PCR) - Final Laboratory Results 04/11/20 20:30: COVID-19 (AMANDA) Not Detected 04/11/20 21:30: WBC 5.9, RBC 3.91 L, Hgb 11.6 L, Hct 36.0 L, MCV 92.1, MCH 29.7, MCHC 32.2, RDW Std Deviation 47.9 H, RDW Coeff of Martha 14.2, Plt Count 222, MPV 10.2, Immature Gran % (Auto) 0.500, Neut % (Auto) 74.2 H, Lymph % (Auto) 11.1 L, [place] % (Auto) 8.8, Eos % (Auto) 4.4, Baso % (Auto) 1.0, Absolute Neuts (auto) 4.4, Absolute Lymphs (auto) 0.66 L, Nucleated RBC % 0 04/11/20 21:30: Sodium 135 L, Potassium 4.5, Chloride 100, Carbon Dioxide 28.0, Anion Gap 7, BUN 28 H, Creatinine 1.62 H, Estim Creat Clear Calc 20.20, Est GFR (MDRD) Af Amer 39 L, Est GFR (MDRD) Non-Af 32 L, BUN/Creatinine Ratio 17.3, Glucose 132 H, Calcium 9.5, Total Bilirubin 0.50, AST 46 H, ALT 29, Alkaline Phosphatase 73, Troponin I < 0.015, Total Protein 8.6 H, Albumin 2.6 L, Globulin 6.0 H, Albumin/Globulin Ratio 0.4 L 04/11/20 21:40: Lactic Acid 1.5 04/11/20 21:40: Procalcitonin 0.21 H 04/11/20 21:40: Vitamin B12 492 04/12/20 03:20: Fibrinogen 575 H, D-Dimer Quant (PE/DVT) 1.31 H* 04/12/20 03:20: Ferritin 286 H, Troponin I < 0.015, Triglycerides 173 04/12/20 03:20: PT 14.9, INR 1.2, APTT 31.7 04/12/20 04:10: Urine Color Yellow, Urine Clarity Clear, Urine pH 6.5, Ur Specific Strong 1.015, Urine Protein 500 H, Urine Glucose (UA) Normal, Urine Ketones 5 H, Urine Occult Blood 10 H, Urine Nitrite Negative, Urine Bilirubin Negative, Urine Urobilinogen Normal, Ur Leukocyte Esterase 25 H, Urine RBC 0-5 SEEN, Urine WBC 0-5 SEEN, Ur Squamous Epith Cells 0-5 SEEN, Urine Bacteria 0 SEEN, Fine Granular Casts 0-5 SEEN, Urine Mucus 0 SEEN 04/12/20 06:30: WBC 5.2, RBC 3.39 L, Hgb 10.2 L, Hct 31.3 L, MCV 92.3, MCH 30.1, MCHC 32.6, RDW Std Deviation 48.7 H, RDW Coeff of Martha 14.4, Plt Count 189, MPV 9.8, Immature Gran % (Auto) 0.600, Neut % (Auto) 60.4, Lymph % (Auto) 19.0, Marshall % (Auto) 11.2 H, Eos % (Auto) 7.8 H, Baso % (Auto) 1.0, Absolute Neuts (auto) 3.1, Absolute Lymphs (auto) 0.98, Nucleated RBC % 0 04/12/20 06:30: Sodium 135 L, Potassium 4.0, Chloride 104, Carbon Dioxide 25.0, Anion Gap 6, BUN 31 H, Creatinine 1.57 H, Estim Creat Clear Calc 20.85, Est GFR (MDRD) Af Amer 41 L, Est GFR (MDRD) Non-Af 34 L, BUN/Creatinine Ratio 19.7, Glucose 96, Calcium 8.6, Total Bilirubin 0.30, AST 29, ALT 21, Alkaline Phosphatase 55, Troponin I < 0.015, Total Protein 6.9, Albumin 2.1 L, Globulin 4.8 H, Albumin/Globulin Ratio 0.4 L 04/12/20 08:54: Troponin I < 0.015 04/12/20 08:54: Uric Acid 7.7 H, Lactate Dehydrogenase 261 H 04/12/20 12:30: APTT 105.0 H* Current Medications Acetaminophen (Acetaminophen 325 Mg Tablet) 650 mg PO Q6H PRN PRN PRN Reason: Pain Score 1-10/Temp > 100.7 F Amlodipine Besylate (Amlodipine 5 Mg Tablet) 5 mg PO DAILY [facility] Last Admin: 10/28/20 09:49 Dose: 5 mg Documented by: Ascorbic Acid (Ascorbic Acid 500 Mg Tablet) 500 mg PO DAILY [facility] Last Admin: 04/12/20 09:48 Dose: 500 mg Documented by: Aspirin (Aspirin E.C. 81 Mg Tablet) 81 mg PO DAILY@0800 [facility] Last Admin: 04/12/20 09:48 Dose: 81 mg Documented by: Atorvastatin Calcium (Atorvastatin Calcium 40 Mg Tablet) 40 mg PO QHS [facility] Calcium Carbonate (Calcium Carbonate 500 Mg Tablet) 1,000 mg PO LUNCH [facility] Last Admin: 04/12/20 09:55 Dose: 1,000 mg Documented by: Calcium Carbonate (Calcium Carbonate 500 Mg Tablet) 500 mg PO DINNER [facility] Clopidogrel Bisulfate (Clopidogrel Bisulfate 75 Mg Tablet) 75 mg PO DAILY [facility] Last Admin: 04/12/20 09:49 Dose: 75 mg Documented by: Folic Acid (Folic Acid 1 Mg Tablet) 0.5 mg PO DAILY [facility] Last Admin: 04/12/20 09:48 Dose: 0.5 mg Documented by: Heparin Sodium (Porcine) (Heparin Injection (Vial) 5,000 Unit/Ml Vial) 0 unit IV UD PRN; Protocol PRN Reason: dose adjustment Sodium Chloride () 1,000 mls @ 75 mls/hr IV .[id number] [facility] Last Admin: 04/12/20 16:14 Dose: 75 mls/hr Documented by: Sodium Chloride () 250 mls @ 15 mls/hr IV .[id number] PRN PRN Reason: Saline Flush Azithromycin 500 mg/ Dextrose 255 mls @ 250 mls/hr IV Q24H [facility] Ceftriaxone Sodium (Rocephin) 1 gm in 50 mls @ 100 mls/hr IV Q24H [facility] Heparin Sodium/Dextrose () 25,000 units in 250 mls @ 11 mls/hr IV .[id number] [facility]; Protocol Last Titration: 04/12/20 14:54 Dose: 80,000 units/hr, 800 mls/hr Documented by: Isosorbide Mononitrate (Isosorbide Mononitrate 30 Mg Tablet) 30 mg PO BID [facility] Last Admin: 04/12/20 09:49 Dose: 30 mg Documented by: Labetalol HCl (Labetalol (Prefilled) 20 Mg/4 Ml) 10 mg IV Q4H PRN PRN PRN Reason: SBP > 160 OR DBP > 120 Levothyroxine Sodium (Levothyroxine 88 Mcg Tablet) 88 mcg PO DAILY [facility] Last Admin: 04/12/20 09:49 Dose: 88 mcg Documented by: Melatonin (Melatonin 3 Mg Tablet) 3 mg PO QHS PRN PRN PRN Reason: INSOMNIA Metoprolol Succinate (Metoprolol(Xl)Succ 50 Mg Tablet) 50 mg PO DAILY [facility] Last Admin: 04/12/20 09:48 Dose: 50 mg Documented by: Multivitamins (Multivitamins,Therapeutic Tablet) 1 tablet PO DAILY [facility] Last Admin: 04/12/20 09:49 Dose: 1 tablet Documented by: Ondansetron HCl (Ondansetron 4 Mg/2 Ml Vial) 4 mg IV Q8H PRN PRN PRN Reason: NAUSEA/VOMITING Potassium Chloride (Potassium Chloride 10 Meq Tablet) 10 meq PO DAILY [facility] Last Admin: 04/12/20 09:49 Dose: 10 meq Documented by: Prednisone (Prednisone 20 Mg Tablet) 50 mg PO Q6H [facility] Stop: 04/13/20 05:01 Last Admin: 04/12/20 17:01 Dose: 50 mg Documented by: Sodium Chloride (0.9% Saline Lock 10 Ml Syringe) 10 - 40 ml IV UD PRN PRN Reason: SALINE FLUSH Last Admin: 04/12/20 04:04 Dose: 10 ml Documented by: Clinical Impression(s) from Imaging Studies Chest X-Ray 04/11/20 21:16 IMPRESSION: Chronic interstitial changes in the lower lobes however cannot definitively exclude coexisting acute inflammatory disease. CT would be useful for further evaluation if clinically warranted Electronically Signed: Angel Dickson MD at 21:56 EDT , Service support , Chest CT 04/12/20 01:31 IMPRESSION: Bulky mediastinal lymphadenopathy with accompanying axillary lymph nodes and multifocal pulmonary nodules. Findings raise concern for the possibility of metastatic disease. Consider the possibility of lymphoma possible leukemia or metastatic disease. Recommend further evaluation with CT scan with IV contrast correlation with any abdominal symptoms and consideration for the possibility of PET scan. There are areas of interstitial thickening within the lungs which may represent atypical infiltrates. There is a focal consolidation in the left upper lobe suspicious for pneumonia. Electronically Signed: Velma Mccabe MD at 3:30 EDT Tel , Service support , Assessment/Plan All Active Problems (Last Reviewed 04/12/20 @ 01:[address] Jono Alex MD) Acute febrile illness (Acute) Mediastinal lymphadenopathy (Acute) Chest pain (Acute) RECOMMENDATIONS: 1. Confer with cardiology about possible holding of antiplatelet 2. Consider axillary lymph node biopsy 3. Candidate for EBUS as an outpatient if lymph node biopsy unsuccessful 4. Hemodynamically stable on room air. Will sign off from a pulmonary perspective. IMPRESSIONS: 1. Mediastinal lymphadenopathy Patient with extensive mediastinal lymphadenopathy. This was reviewed with the patient at the bedside with the actual CT images. High clinical suspicion for lymphoma versus sarcoidosis. Patient does not have a lot of parenchymal findings, so lymphoma versus stage I sarcoidosis would be a consideration. Patient does have an axillary lymph node on CT scan that may be amenable to biopsy. Patient also has pathology that would be conducive to a EBUS, but this would not allow for structure analysis making it less optimal option if lymph node biopsy was possible. Patient's current fever could be B type symptoms. Patient does have increased eosinophils on the differential, but no signs or symptoms of obstructive lung disease by history. 2. Acute on chronic kidney disease stage III/hypertension/advanced age/coronary artery disease Complicates care, management, recovery and prognosis. Defer to hospitalist. Most medications were held on admission. Inpatient E&M: 26254 Init Hosp L2
[2020-04-12] MEDS: Calcium Carbonate 500 MG Tablet PO (18:29)
[2020-04-12] MEDS: Ceftriaxone 1 GM/50 ML BAG IV (21:05)
[2020-04-12] MEDS: Atorvastatin Calcium 40 MG Tablet PO (21:07)
[2020-04-12] MEDS: Heparin Injection (Vial) 5,000 UNIT/ML VIAL IV (22:47)
[2020-04-13] VITALS (11 sets, daily range): BP systolic 140–185; BP diastolic 44–73; PULSE 60–94; RESP 16–18; TEMP 36.6–36.8; O2SAT 92–98
[2020-04-13] MEDS: predniSONE 20 MG Tablet 50 MG PO (05:10)
[2020-04-13 05:15] LABS: Partial Thromboplast Time 89.7 Seconds (24.1-36.2)
--- NOTE | 2020-04-13 06:00 | CT_ITS ---
HISTORY: MEDIASTINAL LYMPHADENOPATHY,ELEVATED DDIMER,SOB,FEVER,WEAKNESSHX:HTN,CAD,HLD,HEART STENTS,CHOLECYSTECTOMY TECHNIQUE: CT images of the chest were obtained with 100 mL Isovue-300 IV contrast. Number of images including paperwork: [phone]. A radiation dose optimization technique was used for this scan. COMPARISON: Noncontrast CT 04/12/2020 FINDINGS: VASCULATURE: Vascular tortuosity. Moderate atherosclerotic plaque. HEART/PERICARDIUM: Mildly enlarged heart. Coronary calcification. MEDIASTINUM: Unremarkable. ADENOPATHY: Mediastinal and bilateral hilar adenopathy appears similar. Subcarinal node measures 14 mm short axis dimension. THYROID: Unremarkable visualized portions. LUNG PARENCHYMA: Mild interstitial septal thickening. Peripheral groundglass opacities, most pronounced at the apices. Multiple subcentimeter bilateral lung nodules PLEURAL SPACES: Unremarkable. UPPER ABDOMEN: Unremarkable. OSSEOUS AND SOFT TISSUE STRUCTURES: No acute skeletal findings. DEVICES: None. CT/Chest WITH Contrast IMPRESSION: 1. Patchy bilateral infiltrates concerning for infection. 2. No gross change in bilateral pulmonary nodules. 3. Mediastinal and hilar adenopathy. 4. Additional findings above. Individualized dose optimization techniques were used for this CT. at 0648 Reported and signed by: Bernadette Mari MD Electronically Signed: Bernadette Mari MD at 6:48 EDT Tel , Service support ,
--- NOTE | 2020-04-13 06:00 | CT_ITS ---
HISTORY: MEDIASTINAL LYMPHADENOPATHY,SOB,FEVER,WEAKNESS,ELEVATED DDIMER,PT HAD NEG COVID TESTHX:HTN,CAD,HLD ADDITIONAL HISTORY: None provided. EXAMINATION/TECHNIQUE: CT Abdomen And Pelvis W/ Contrast Injection CONTRAST: IV 100mL Isovue-300 IV contrast. Enteric contrast was not given. A radiation dose optimization technique was used for this scan. Number of images including paperwork: [phone] COMPARISON: None FINDINGS: LOWER THORAX: Trace left pleural fluid. Cardiomegaly. Coronary calcification. Trace pericardial fluid. LIVER: Enlarged right lobe 22 cm. GALLBLADDER: Cholecystectomy. BILE DUCTS: No significant biliary dilatation. SPLEEN: Unremarkable. PANCREAS: Unremarkable. ADRENAL GLANDS: Unremarkable. KIDNEYS/URETERS: Mild wall thickening in the renal pelves. BOWEL: No bowel obstruction. No significant bowel wall thickening. No localized inflammation. APPENDIX: No evidence of appendicitis. FREE FLUID: Trace free fluid. FREE AIR: None. LYMPH NODES: No pathologic appearing adenopathy. PERITONEUM, RETROPERITONEUM AND MESENTERY: Otherwise unremarkable. VASCULATURE: Atherosclerotic calcification. PELVIS: Unremarkable bladder. No pelvic mass. ABDOMINAL WALL: Unremarkable. OSSEOUS AND SOFT TISSUE STRUCTURES: No acute skeletal findings. Degenerative changes. CT/Abdomen/Pelvis W IV Cont ONLY IMPRESSION: Mild wall thickening of the renal pelves. Correlate for evidence of urinary tract infection. Additional findings above. Individualized dose optimization techniques were used for this CT. at 0800 Reported and signed by: Bernadette Mari MD Electronically Signed: Bernadette Mari MD at 8:00 EDT Tel , Service support ,
[2020-04-13] MEDS: 0.9% Normal Saline 1,000 ML 75 ML IV (08:00)
[2020-04-13] MEDS: Folic Acid 1 MG Tablet 0.5 MG PO (10:41)
[2020-04-13] MEDS: Metoprolol(XL)Succ 50 MG Tablet PO (10:42)
[2020-04-13] MEDS: Ascorbic Acid 500 MG Tablet PO (10:48)
[2020-04-13] MEDS: Isosorbide Mononitrate 30 MG Tablet PO (10:49)
[2020-04-13] MEDS: amLODIPine 5 MG Tablet PO (10:49)
[2020-04-13] MEDS: Multivitamins,Therapeutic Tablet 1 TABLET PO (10:50)
[2020-04-13] MEDS: Clopidogrel Bisulfate 75 MG Tablet PO (10:51)
[2020-04-13] MEDS: Aspirin E.C. 81 MG Tablet PO (10:51)
[2020-04-13] MEDS: Levothyroxine 88 MCG Tablet PO (10:52)
[2020-04-13] MEDS: Calcium Carbonate 500 MG Tablet 1000 MG PO (11:43)
--- NOTE | 2020-04-13 11:44 | PCM.PN.ID ---
Patient Problems: Active and Suspected Problems (Last Reviewed 04/12/20 @ 01:[address] Jono Alex MD) Acute febrile illness (Acute) Mediastinal lymphadenopathy (Acute) Chest pain (Acute) Subjective: Feeling better, no fever, breathing without difficulty - Physical Exam Vitals/I&O's: Vital Signs Temp Pulse Resp BP Pulse Ox 98.0 F 70 18 185/73 H 98 04/13/20 08:41 04/13/20 10:42 04/13/20 08:41 04/13/20 10:42 04/13/20 08:41 Oxygen Delivery Method Room Air Weight: 75 kg Body Mass Index (BMI) 31.2 Intake and Output for Last 24 Hours 04/11/20 04/12/20 04/13/20 23:59 23:59 23:59 Intake Total 5619.50 / 5619.50 528.5 / 528.5 Balance 5619.50 / 5619.50 528.5 / 528.5 General: Alert, Cooperative, No apparent distress Lungs: Rhonchi Cardiovascular: Regular rate, Regular Rhythm, Murmur Abdomen: Soft, Non Tender, Non-Distended Skin: No rashes Microbiology Past 72 Hours 04/12/20 04:10 Urine, Clean Catch Streptococcus pneumoniae Antigen (M - Final 04/12/20 04:10 Urine, Clean Catch Legionella Antigen - Final 04/11/20 20:30 Mucosa - Nose Respiratory Panel (PCR) - Final Laboratory Results 04/11/20 21:40: Vitamin B12 492 04/12/20 08:54: Uric Acid 7.7 H, Lactate Dehydrogenase 261 H 04/12/20 12:30: APTT 105.0 H* 04/12/20 20:55: APTT 53.0 H 04/13/20 04:50: Hep Bs Antigen Pending, Hep Bs Antibody Pending, Hep B Core Total Ab Pending, Hep B Core IgM Ab Pending, Hepatitis Be Antibody Pending, Hepatitis Be Antigen Pending 04/13/20 04:50: APTT 89.7 H Current Medications Acetaminophen (Acetaminophen 325 Mg Tablet) 650 mg PO Q6H PRN PRN PRN Reason: Pain Score 1-10/Temp > 100.7 F Amlodipine Besylate (Amlodipine 5 Mg Tablet) 5 mg PO DAILY [facility] Last Admin: 04/13/20 10:49 Dose: 5 mg Documented by: Ascorbic Acid (Ascorbic Acid 500 Mg Tablet) 500 mg PO DAILY [facility] Last Admin: 04/13/20 10:48 Dose: 500 mg Documented by: Aspirin (Aspirin E.C. 81 Mg Tablet) 81 mg PO DAILY@0800 [facility] Last Admin: 04/13/20 10:51 Dose: 81 mg Documented by: Atorvastatin Calcium (Atorvastatin Calcium 40 Mg Tablet) 40 mg PO QHS [facility] Last Admin: 04/12/20 21:07 Dose: 40 mg Documented by: Calcium Carbonate (Calcium Carbonate 500 Mg Tablet) 1,000 mg PO LUNCH [facility] Last Admin: 04/12/20 09:55 Dose: 1,000 mg Documented by: Calcium Carbonate (Calcium Carbonate 500 Mg Tablet) 500 mg PO DINNER [facility] Last Admin: 04/12/20 18:29 Dose: 500 mg Documented by: Clopidogrel Bisulfate (Clopidogrel Bisulfate 75 Mg Tablet) 75 mg PO DAILY [facility] Last Admin: 04/13/20 10:51 Dose: 75 mg Documented by: Folic Acid (Folic Acid 1 Mg Tablet) 0.5 mg PO DAILY [facility] Last Admin: 04/13/20 10:41 Dose: 0.5 mg Documented by: Heparin Sodium (Porcine) (Heparin Injection (Vial) 5,000 Unit/Ml Vial) 0 unit IV UD PRN; Protocol PRN Reason: dose adjustment Last Admin: 04/12/20 22:47 Dose: 1,000 unit Documented by: Sodium Chloride () 1,000 mls @ 75 mls/hr IV .[id number] [facility] Last Admin: 04/13/20 08:00 Dose: 75 mls/hr Documented by: Sodium Chloride () 250 mls @ 15 mls/hr IV .[id number] PRN PRN Reason: Saline Flush Ceftriaxone Sodium (Rocephin) 1 gm in 50 mls @ 100 mls/hr IV Q24H [facility] Last Infusion: 04/12/20 22:51 Dose: Infused Documented by: Isosorbide Mononitrate (Isosorbide Mononitrate 30 Mg Tablet) 30 mg PO BID [facility] Last Admin: 04/13/20 10:49 Dose: 30 mg Documented by: Labetalol HCl (Labetalol (Prefilled) 20 Mg/4 Ml) 10 mg IV Q4H PRN PRN PRN Reason: SBP > 160 OR DBP > 120 Levothyroxine Sodium (Levothyroxine 88 Mcg Tablet) 88 mcg PO DAILY [facility] Last Admin: 04/13/20 10:52 Dose: 88 mcg Documented by: Melatonin (Melatonin 3 Mg Tablet) 3 mg PO QHS PRN PRN PRN Reason: INSOMNIA Metoprolol Succinate (Metoprolol(Xl)Succ 50 Mg Tablet) 50 mg PO DAILY [facility] Last Admin: 04/13/20 10:42 Dose: 50 mg Documented by: Multivitamins (Multivitamins,Therapeutic Tablet) 1 tablet PO DAILY [facility] Last Admin: 04/13/20 10:50 Dose: 1 tablet Documented by: Ondansetron HCl (Ondansetron 4 Mg/2 Ml Vial) 4 mg IV Q8H PRN PRN PRN Reason: NAUSEA/VOMITING Potassium Chloride (Potassium Chloride 10 Meq Tablet) 10 meq PO DAILY [facility] Last Admin: 04/13/20 10:49 Dose: 10 meq Documented by: Sodium Chloride (0.9% Saline Lock 10 Ml Syringe) 10 - 40 ml IV UD PRN PRN Reason: SALINE FLUSH Last Admin: 04/12/20 04:04 Dose: 10 ml Documented by: Medical Necessity - Tobacco Use Smoking Status: Never smoker Route of nutrition/ use of supplements: [] Nutritional Intake: [] IV Site: [] [place] Catheter: [] - Assessment/Plan Antibiotics: [] Assessment/Plan: [] Active and Suspected Problems (Last Reviewed 04/12/20 @ 01:[address] Jono Alex MD) Acute febrile illness (Acute) Chest pain (Acute) Concern for metastatic cancer, possible associated pneumonia. Covid neg. Ok for d/c home on 3 more days of omnicef. Will need outpt biopsy. Will follow as needed
[2020-04-13 12:36] LABS: Partial Thromboplast Time 27.4 Seconds (24.1-36.2)
--- NOTE | 2020-04-13 14:59 | PCM.DC ---
- Discharge Diagnoses Current Active Problems: Current Active and Chronic Problems (Last Reviewed 04/12/20 @ 01:[address] Jono Alex MD) Acute febrile illness (Acute) Mediastinal lymphadenopathy (Acute) Essential hypertension (Chronic) History of percutaneous transluminal coronary angioplasty (Chronic 04/16/19) PTCA/NO stent to mid RCA 04/16/19 Angina pectoris (Chronic) Chest pain (Acute) ABDIAS (obstructive sleep apnea) (Chronic) Initial AHI 35.5 Nonrheumatic mitral (valve) insufficiency (Chronic) Nonrheumatic aortic (valve) insufficiency (Chronic) Nonrheumatic aortic (valve) stenosis (Chronic) Carotid artery disease (Chronic) Atherosclerotic heart disease of [place] coronary artery without angina pectoris (Chronic) Previous LEANDER to proximal to mid LAD 3.0 X 32 mm Taxus 02/23/[address] Daquan Meyer, [facility];LEANDER to mid RCA 2.5 X 24 mm [facility] [facility]; [facility]/LEANDER of the mid LCX 03/10/[address] Torrez [facility]; Successful PTCA/LEANDER mid RCA with a 2.0 x 12balloon, followed by a 2.0 x 10 Angiosculpt, followed by a 2.5 x 16 Promus Synergy, post dilated with a 2.5 x 8 NC Balloon; 85%-->0%, no dissection 07/22/2018; PTCA/LEANDER to mid RCA instent restenosis 11/13/18; PTCA/NO stent to mid RCA 04/16/19; Successful PTCA/LEANDER mid RCA with a 2.0 x 10 Angiosculpt, followed with a 2.5 x 14 Resolute LEANDER, post dilated with a 2.5 x 12 NC balloon; 85%-->0%, no dissection 05/28/2019. Presence of stent in coronary artery (Chronic 05/28/19) Previous LEANDER to proximal to mid LAD 3.0 X 32 mm Taxus 02/23/[address] Daquan Meyer, [facility];LEANDER to mid RCA 2.5 X 24 mm Synergy [facility] [facility]; PTCA/LEANDER of the mid LCX 03/10/[address] Torrez [facility]; Successful PTCA/LEANDER mid RCA with a 2.0 x 12balloon, followed by a 2.0 x 10 Angiosculpt, followed by a 2.5 x 16 Promus Synergy, post dilated with a 2.5 x 8 NC Balloon; 85%-->0%, no dissection 07/22/2018; PTCA/LEANDER to mid RCA instent restenosis 11/13/18; PTCA/NO stent to mid RCA 04/16/19; PCI/LEANDER to RCA 05/28/19 Valvular heart disease (Chronic) Hypothyroidism (Chronic) Hyperlipidemia (Chronic) You will use the following diet at home:: Cardiac Your food should be the consistency of: Regular Your liquids should be the consistency of: Regular/Thin Discharge Activity: Return to Normal Activity Call your doctor if you observe: Fever of 101 or Higher, Shortness of breath, Dizziness, Fainting spells, Swelling in the ankles, Chest pain, Increased palpitations (irregular heartbeat) Allergies/Adverse Reactions: Allergies Iodinated Contrast Media [Iodinated Contrast- Oral and IV Dye] Allergy (Intermediate, Verified 04/07/20 17:39) Rash ramipril [From Altace] Adverse Reaction (Severe, Verified 04/07/20 17:39) cough Medications to take at Discharge levothyroxine 88 mcg tablet 88 mcg PO DAILY 90 Days 06/10/17 Ascorbic Acid [Vitamin C] 500 mg PO DAILY 01/16/18 Folic Acid 0.4 mg PO DAILY@0800 01/16/18 Ubidecarenone [Co Q-10] 100 mg PO DAILY 03/09/18 Calcium Citrate 600 mg PO TID 11/12/18 Multivitamins,Therapeutic [Multivitamin] 1 tab PO DAILY 11/12/18 [place]-3 Fatty Acids/Fish Oil [Fish Oil 1,000 mg Capsule] 1 cap PO DAILY 11/12/18 nitroglycerin 0.4 mg sublingual tablet 0.4 mg SUBLINGUAL Q5-15M PRN 10 Days #25 tab 12/01/18 Acetaminophen [Tylenol Tablet] 650 mg PO Q6H PRN PRN tab 05/30/19 losartan 50 mg tablet 50 mg PO BID #180 tab 07/19/19 potassium chloride 10 mEq tablet,extended release 10 meq PO DAILY #90 tab 07/19/19 atorvastatin 40 mg tablet 40 mg PO DAILY 90 Days #90 tab 07/22/19 amlodipine 5 mg tablet 5 mg PO DAILY #90 tab 08/06/19 metoprolol succinate 50 mg tablet,extended release 24 hr 50 mg PO DAILY #90 tab 10/25/19 isosorbide mononitrate 60 mg tablet,extended release 24 hr 30 mg PO BID tab 03/09/20 Diclofenac [Voltaren] 50 mg PO BIDCM #14 tab 04/07/20 triamterene 37.5 mg-hydrochlorothiazide 25 mg capsule 1 cap PO DAILY 04/10/20 Aspirin E.C. [Ecotrin] 81 mg PO DAILY@0800 #0 04/13/20 Cefdinir [Omnicef [equiv]] 300 mg PO Q12H #6 cap 04/13/20 Clopidogrel Bisulfate [Clopidogrel] 75 mg PO DAILY #90 tab 04/13/20 Rivaroxaban [Xarelto] 2.5 mg PO BID #60 tab 04/13/20 The following prescriptions were given: Cefdinir [Omnicef [equiv]] 300 mg PO Q12H #6 cap Transmission Status: Received by MARISSA GUERRERO-1952 [facility] Primary Care Physician: Boyd Casiano MD [Primary Care Provider] - Please follow up with your Primary Care Physician in: 3-5 days Test Results: Test results from this visit will be discussed in further detail at your follow-up appointment, if applicable. Please Follow Up With: Rafael Rojas MD When: 2-4 weeks Please Follow Up With: Bryant Olivas MD When: 3-5 days
--- NOTE | 2020-04-13 16:22 | PCM.DC.SUM ---
Discharge Date and Diagnosis - Problem List Patient Problems: Active and Suspected Problems (Last Reviewed 04/12/20 @ 01:[address] Jono Alex MD) Acute febrile illness (Acute) Mediastinal lymphadenopathy (Acute) Chest pain (Acute) Date of Admission: 04/12/20 Date of Discharge: 04/13/20 - Primary Discharge Diagnosis Acute Problems: Active Problems (Last Reviewed 04/12/20 @ 01:[address] Jono Alex MD) Acute febrile illness (Acute) Mediastinal lymphadenopathy (Acute) Chest pain (Acute) - Secondary Discharge Diagnosis Chronic Problems: Chronic Problems (Last Reviewed 04/12/20 @ 01:[address] Jono Alex MD) Essential hypertension (Chronic) History of percutaneous transluminal coronary angioplasty (Chronic 04/16/19) PTCA/NO stent to mid RCA 04/16/19 Angina pectoris (Chronic) ABDIAS (obstructive sleep apnea) (Chronic) Initial AHI 35.5 Nonrheumatic mitral (valve) insufficiency (Chronic) Nonrheumatic aortic (valve) insufficiency (Chronic) Nonrheumatic aortic (valve) stenosis (Chronic) Carotid artery disease (Chronic) Atherosclerotic heart disease of [place] coronary artery without angina pectoris (Chronic) Previous LEANDER to proximal to mid LAD 3.0 X 32 mm Taxus 02/23/[address] Daquan Meyer, [facility];LEANDER to mid RCA 2.5 X 24 mm Synergy 01/19/[address] Patel,[facility]; PTCA/LEANDER of the mid LCX 03/10/[address] Torrez [facility]; Successful PTCA/LEANDER mid RCA with a 2.0 x 12balloon, followed by a 2.0 x 10 Angiosculpt, followed by a 2.5 x 16 Promus Synergy, post dilated with a 2.5 x 8 NC Balloon; 85%-->0%, no dissection 07/22/2018; PTCA/LEANDER to mid RCA instent restenosis 11/13/18; PTCA/NO stent to mid RCA 04/16/19; Successful PTCA/LEANDER mid RCA with a 2.0 x 10 Angiosculpt, followed with a 2.5 x 14 Resolute LEANDER, post dilated with a 2.5 x 12 NC balloon; 85%-->0%, no dissection 05/28/2019. Presence of stent in coronary artery (Chronic 05/28/19) Previous LEANDER to proximal to mid LAD 3.0 X 32 mm Taxus 02/23/[address] Daquan Meyer, [facility];LEANDER to mid RCA 2.5 X 24 mm Synergy 01/19/[address] Patel,[facility]; PTCA/LEANDER of the mid LCX 03/10/[address] Torrez [facility]; Successful PTCA/LAENDER mid RCA with a 2.0 x 12balloon, followed by a 2.0 x 10 Angiosculpt, followed by a 2.5 x 16 Promus Synergy, post dilated with a 2.5 x 8 NC Balloon; 85%-->0%, no dissection 07/22/2018; PTCA/LEANDER to mid RCA instent restenosis 11/13/18; PTCA/NO stent to mid RCA 04/16/19; PCI/LEANDER to RCA 05/28/19 Valvular heart disease (Chronic) Hypothyroidism (Chronic) Hyperlipidemia (Chronic) Hospital Course and Treatment Imaging Results: Clinical Impression(s) from Imaging Studies Chest X-Ray 04/11/20 21:16 IMPRESSION: Chronic interstitial changes in the lower lobes however cannot definitively exclude coexisting acute inflammatory disease. CT would be useful for further evaluation if clinically warranted Electronically Signed: Angel Dickson MD at 21:56 EDT , Service support , Chest CT 04/12/20 01:31 IMPRESSION: Bulky mediastinal lymphadenopathy with accompanying axillary lymph nodes and multifocal pulmonary nodules. Findings raise concern for the possibility of metastatic disease. Consider the possibility of lymphoma possible leukemia or metastatic disease. Recommend further evaluation with CT scan with IV contrast correlation with any abdominal symptoms and consideration for the possibility of PET scan. There are areas of interstitial thickening within the lungs which may represent atypical infiltrates. There is a focal consolidation in the left upper lobe suspicious for pneumonia. Electronically Signed: Velma Mccabe MD at 3:30 EDT Tel , Service support , Abdomen/Pelvis CT 04/13/20 06:00 IMPRESSION: Mild wall thickening of the renal pelves. Correlate for evidence of urinary tract infection. Additional findings above. Individualized dose optimization techniques were used for this CT. at 0800 Reported and signed by: Bernadette Mari MD Electronically Signed: Bernadette Mari MD at 8:00 EDT Tel , Service support , Chest CT 04/13/20 06:00 IMPRESSION: 1. Patchy bilateral infiltrates concerning for infection. 2. No gross change in bilateral pulmonary nodules. 3. Mediastinal and hilar adenopathy. 4. Additional findings above. Individualized dose optimization techniques were used for this CT. at 0648 Reported and signed by: Bernadette Mari MD Electronically Signed: Bernadette Mari MD at 6:48 EDT Tel , Service support , Consults: ID Pulmonology Operations: None Procedures: None Summary of Care Provided: Per HPI: The patient is a 84 year old F with a significant history of hypertension; obstructive sleep apnea; CAD status post stents who presents emergency department with dull aching substernal chest pain that started a day before presentation. The severity of her chest pain was 5 out of 10. She denies any aggravating or ameliorating factors to the pain. Chest pain was nonradiating. She denies any nausea vomiting or diaphoresis. At the time of examination at the emergency department she did not have any chest pain. Associated for symptoms is malaise, anorexia, coughing, and chills. She had a marginal temperature of 103 at home. She denies any taste or smell sensation. She denies any known Covid contacts. She endorses some shortness of breath. Hospital Course: 1. Acute febrile illness possible pneumonia/possible metastatic cancer versus lymphoma or [id number]-old female presents from home with fevers and chills. She was tested for Covid which was negative and started on antibiotics. She was seen by infectious disease who recommended continuing the antibiotics for 3 more days. She had an elevated D-dimer and a CT scan of the chest was done without contrast initially so she was placed on a heparin drip. However because of the concern for the lymphadenopathy seen both mediastinal and axillary, we predosed her with steroids and Benadryl and ordered another CT scan this time of her chest and abdomen and pelvis with contrast. There is no PE seen on the CT of the chest and no cancer in the abdomen and pelvis that could be evaluated. She will hold her aspirin and Plavix as well as her Xarelto on Friday for lymph node biopsy of her axilla next week by general surgery. She is almost 12 months out from a drug-eluting stent so she will be able to hold her medications for a few days prior to the procedure. She will then have to resume it the next day. I discussed with her the plan for discharge today since she is feeling well and off of oxygen, that she is to continue antibiotics as well as follow-up with the general surgeon to obtain lymph node tissue and then she will need to follow-up with oncology once pathology reports are back. I did discuss the case with oncology and they requested a vitamin B12 as well as an LDH and a uric acid. The uric acid was 7.7, the LDH was elevated to 61 and the vitamin B12 was normal. If lymph node biopsy is negative or inconclusive, pulmonology is more than happy to complete an EBUS as an outpatient. She expressed understanding of the risks and benefits of going home today and would like to go home. 2. CAD status post stent, hyperlipidemia, hypertension, hypothyroidism all chronic medical conditions which complicate her care. Her home medications were continued where appropriate Patient Problems: Active and Suspected Problems (Last Reviewed 04/12/20 @ 01:[address] Jono Alex MD) Acute febrile illness (Acute) Mediastinal lymphadenopathy (Acute) Chest pain (Acute) - Physical Exam Vitals/I&O's: Vital Signs Temp Pulse Resp BP Pulse Ox 98.3 F 80 16 165/69 H 96 04/13/20 15:35 04/13/20 15:35 04/13/20 15:35 04/13/20 15:35 04/13/20 15:35 Oxygen Delivery Method Room Air Weight: 165 lb 5.547 oz Body Mass Index (BMI) 31.2 Intake and Output for Last 24 Hours 04/11/20 04/12/20 04/13/20 23:59 23:59 23:59 Intake Total 5619.50 / 5619.50 1096.0 / 1096.0 Balance 5619.50 / 5619.50 1096.0 / 1096.0 General: Alert, Oriented x3, Cooperative, No apparent distress HEENT: Atraumatic, PERRLA, EOMI, Normocephalic Oral: Moist Mucosa Neck: Supple, No JVD Lungs: Clear to auscultation, Normal air movement, No rhonchi, No wheeze, No rales Cardiovascular: Regular rate, Regular Rhythm, Normal S1, Normal S2, No murmurs Abdomen: Soft, Non Tender, Non-Distended, No Hepato-splenomegaly Extremities: No edema, Capillary Refill Less than 3 Seconds Skin: No rashes, No breakdown Neurological: Neuro grossly intact, Sensory exam intact to light touch and pain Psych/Mental Status: Normal Affect, Appropriate Microbiology Past 72 Hours 04/12/20 04:10 Urine, Clean Catch Streptococcus pneumoniae Antigen (M - Final 04/12/20 04:10 Urine, Clean Catch Legionella Antigen - Final 04/11/20 20:30 Mucosa - Nose Respiratory Panel (PCR) - Final Laboratory Results 04/11/20 21:40: Vitamin B12 492 04/12/20 08:54: Uric Acid 7.7 H, Lactate Dehydrogenase 261 H 04/12/20 20:55: APTT 53.0 H 04/13/20 04:50: Hep Bs Antigen Pending, Hep Bs Antibody Pending, Hep B Core Total Ab Pending, Hep B Core IgM Ab Pending, Hepatitis Be Antibody Pending, Hepatitis Be Antigen Pending 04/13/20 04:50: APTT 89.7 H 04/13/20 12:00: APTT 27.4 Discharge Activity: Return to Normal Activity Call your doctor if you observe: Fever of 101 or Higher, Shortness of breath, Dizziness, Fainting spells, Swelling in the ankles, Chest pain, Increased palpitations (irregular heartbeat) Home Medications: Medications to take at Discharge levothyroxine 88 mcg tablet 88 mcg PO DAILY 90 Days 06/10/17 Ascorbic Acid [Vitamin C] 500 mg PO DAILY 01/16/18 Folic Acid 0.4 mg PO DAILY@0800 01/16/18 Ubidecarenone [Co Q-10] 100 mg PO DAILY 03/09/18 Calcium Citrate 600 mg PO TID 11/12/18 Multivitamins,Therapeutic [Multivitamin] 1 tab PO DAILY 11/12/18 [place]-3 Fatty Acids/Fish Oil [Fish Oil 1,000 mg Capsule] 1 cap PO DAILY 11/12/18 nitroglycerin 0.4 mg sublingual tablet 0.4 mg SUBLINGUAL Q5-15M PRN 10 Days #25 tab 12/01/18 Acetaminophen [Tylenol Tablet] 650 mg PO Q6H PRN PRN tab 05/30/19 losartan 50 mg tablet 50 mg PO BID #180 tab 07/19/19 potassium chloride 10 mEq tablet,extended release 10 meq PO DAILY #90 tab 07/19/19 atorvastatin 40 mg tablet 40 mg PO DAILY 90 Days #90 tab 07/22/19 amlodipine 5 mg tablet 5 mg PO DAILY #90 tab 08/06/19 metoprolol succinate 50 mg tablet,extended release 24 hr 50 mg PO DAILY #90 tab 10/25/19 isosorbide mononitrate 60 mg tablet,extended release 24 hr 30 mg PO BID tab 03/09/20 Diclofenac [Voltaren] 50 mg PO BIDCM #14 tab 04/07/20 triamterene 37.5 mg-hydrochlorothiazide 25 mg capsule 1 cap PO DAILY 04/10/20 Aspirin E.C. [Ecotrin] 81 mg PO DAILY@0800 #0 04/13/20 Cefdinir [Omnicef [equiv]] 300 mg PO Q12H #6 cap 04/13/20 Clopidogrel Bisulfate [Clopidogrel] 75 mg PO DAILY #90 tab 04/13/20 Rivaroxaban [Xarelto] 2.5 mg PO BID #60 tab 04/13/20 Following Prescriptions Were Given to Patient: Cefdinir [Omnicef [equiv]] 300 mg PO Q12H #6 cap Transmission Status: Received by MARISSA GUERRERO-1952 [facility] Primary Care Physician: Boyd Casiano MD [Primary Care Provider] - Please follow up with your Primary Care Physician in: 3-5 days Please Follow Up With: Rafael Rojas MD When: 2-4 weeks Please Follow Up With: Bryant Olivas MD When: 3-5 days Please Follow Up With: Boyd Casiano MD When: 3-5 Days Disposition: Home Minutes spent on discharge:: 35 Patient Condition:: Stable Medical Necessity - Tobacco Use Smoking Status: Never smoker Meaningful Use Info Meaningful Use Diagnoses (Choose all that apply): None applicable Inpatient E&M: 45555 Disch Hosp
--- NOTE | 2020-04-14 15:10 | CASEMGMT ---
[facility] Discharge Follow-up Phone Call: CODY: Prasad Strata: 3 Call Date: 04/14/20 Discharge Date: 04/13/20 Time of Call: 1510 Duration: 3 min Admitting Diagnosis: Acute Febrile Illness [facility] completed follow-up phone call after recent hospitalization. Patient states she is doing well. No questions regarding discharge instructions. Patient has made her follow-up appts. Patient was able to fill prescriptions without any issues. No further questions or concerns at this time.
[2020-04-14 16:08] LABS: HEPATITIS B SURFACE AG Negative (Negative); Hepatitis B Core AB IgM Negative (Negative); Hepatitis B Core Ab Total Negative (Negative); Hepatitis Be Ab Negative (Negative); Hepatitis Be Ag Negative (Negative); Hepatitis C Ab <0.1 s/co ratio (0.0-0.9)
[2020-04-14 17:08] LABS: Hep B Surface Antibodies Non Reactive (.)
== END 2020-04-13 15:56 | disposition home or self-care (01) | DRG 195 ==
LOC: ED 21:13 → MS2 04-12 01:43 → PCU 04-12 12:44
PROVIDERS: Admitting Provider Hospitalist; Emergency Provider Emergency Medicine; PCP Family Medicine; Visit Provider Family Medicine
DX: J18.9 Pneumonia, unspecified organism (principal); G47.33 Obstructive sleep apnea (adult) (pediatric); I12.9 Hypertensive chronic kidney disease with stage 1 through stage 4 chronic kidney disease, or unspecified chronic kidney disease; N18.30 Chronic kidney disease, stage 3 unspecified; I25.10 Atherosclerotic heart disease of native coronary artery without angina pectoris; E03.9 Hypothyroidism, unspecified; E78.5 Hyperlipidemia, unspecified; R59.0 Localized enlarged lymph nodes
CPT/HCPCS: 36415; 71045; 71250; 71260; 74177; 80053; 81001; 82607; 82728; 83605; 83615; 84145; 84478; 84484; 84550; 85025; 85379; 85384; 85610; 85730; 86704; 86705; 86706; 86707; 86803; 87040; 87086; 87088; 87340; 87350; 87449; 87633; 87635; 93005; 99284; J7030; Q9967; A4216; U0002

== ENCOUNTER → 2020-04-19 07:26 | Outpatient (CLI) | payer MEDICARE, OTHER, SELFPAY ==
[2020-04-17 13:42] VITALS: BMI 29.8
[2020-04-19 09:15] LABS: Anion Gap 7 (5-15); BUN 27 mg/dL (7-18); BUN/Creat Ratio 19.3 RATIO (10-20); Calcium,Total 9.7 mg/dL (8.5-10.1); Chloride 104 mmol/L (98-107); EST Glomerular Filtration Rate 38 mL/min (>60); Est Glom Filt Rate - Afr Amer 46 mL/min (>60); Glucose 119 mg/dL (74-106); Potassium 4.4 mmol/L (3.5-5.1); Sodium Level 137 mmol/L (136-145)
== END ==
PROVIDERS: PCP Family Medicine; Referring Provider Internal Medicine Cardiovascular Disease; Visit Provider Internal Medicine Cardiovascular Disease
DX: I10 Essential (primary) hypertension (principal); I25.10 Atherosclerotic heart disease of native coronary artery without angina pectoris; Z95.5 Presence of coronary angioplasty implant and graft
CPT/HCPCS: 36415; 80048

== ENCOUNTER 2020-04-20 09:32 | Day surgery (SDC) | payer MEDICARE, OTHER, SELFPAY ==
[2020-04-17 13:42] VITALS: BMI 29.8
--- NOTE | 2020-04-20 | AXNB_PTH ---
PATIENT: PRECIOUS LEIGH LOC: [facility] [place] U#:[id number] AGE/SX: 84/F ROOM: RE04/20/[address]: Dr. Bryant Olivas MD : [id number] BED: DIS: 04/20/2020 SPEC #: [id number] RECD: 04/20/20 11:36 STATUS: ANTONIETA REAyan #: [id number] BLAYNE: 04/20/20 00:[address]: Bryant Olivas DEPT: SURGICAL PATHOLOGY RECD BY: Dennise Maguire ENTERED: 04/20/20 11:58 SP TYPE: AX NODE BX OTHR DR: Dr. Boyd Casiano MD Tissues: Axillary lymph node, NOS Procedures: Frozen Section (charge) Surgery Specimen Level V HEADER OPERATION: Excisional biopsy right axillary lymph node PRE-OP DIAGNOSIS: Mediastinal lymphadenopathy, axillary lymphadenopathy TISSUE SUBMITTED: Right axillary lymph node, frozen section FROZEN SECTION DIAGNOSIS Right axillary lymph node, biopsy: Lymph node tissue present. No evidence of carcinoma. AM:darline 04/20/20 Case has been reviewed in consultation with Dr. Ramos who concurs with the above diagnosis. IDC:SJ MICROSCOPIC DIAGNOSIS Right axillary lymph nodes, biopsy: Three out of three lymph nodes with reactive lymphoid hyperplasia. Negative for malignancy. Flow cytometry study from [facility] shows no evidence for an acute leukemia or a lymphoproliferative disorder. AMBER:darline 04/24/20 COMMENT Correlation with clinical, radiologic findings and appropriate follow up are necessary. MICROSCOPIC DESCRIPTION Slides are reviewed. GROSS DESCRIPTION Received fresh for frozen section diagnosis labeled with the patient's name is a specimen designated right axillary lymph node. The specimen consists of two pieces of adipose tissue containing nodules measuring 2.5 x 2 x 0.5 cm and 3 x 2 x 1 cm. Three lymph nodes are identified, the largest measuring 1?cm in greatest dimension. A section from the largest lymph node is submitted for frozen section diagnosis. A section is also submitted for flow cytometry study. Two touch imprints are prepared. The entire specimen is submitted in four cassettes as follows: 1 - portion of one lymph node for frozen section diagnosis, 2 - two lymph nodes, 3 - one lymph node, 4 - one possible bisected lymph node. Cassette 2 also contains the other half of the lymph node submitted for frozen section diagnosis. / SJ:rg 04/20/20 TC:5 CPT: 17118, 90726
--- NOTE | 2020-04-20 08:28 | HP_ITS ---
Intake Vital Signs 04/17/20 Height 5 ft 1 in 04/17/20 Weight: 158 lb 04/17/20 BMI 29.8 04/17/20 BP 151/77 H 04/17/20 Blood Pressure Location Rt brachial 04/17/20 Position Sitting 04/17/20 Respiration 16 04/17/20 Pulse 61 04/17/20 Pulse Source Monitor 04/17/20 Temp 98.0 F 04/17/20 Temp Source Temporal 04/17/20 Pulse Oximetry (%) 97 04/17/20 Oxygen Delivery Method room air Intake Visit Reasons: INPATIENT F/U DISCUSS LYMPH NODE BIOPSY Chief Complaint: Discuss Lymph Node Bx Cuff Folder Required: No Is patient in pain?: No Allergies Iodinated Contrast Media [Iodinated Contrast- Oral and IV Dye] Allergy (Intermediate, Verified 04/17/20 13:43) Rash ramipril [From Altace] Adverse Reaction (Severe, Verified 04/17/20 13:43) cough Medications levothyroxine 88 mcg tablet 88 mcg PO DAILY 90 Days 06/10/17 [History Confirmed 04/17/20] Ascorbic Acid [Vitamin C] 500 mg PO DAILY 01/16/18 [History Confirmed 04/17/20] Folic Acid 0.4 mg PO DAILY@0800 01/16/18 [History Confirmed 04/17/20] Ubidecarenone [Co Q-10] 100 mg PO DAILY 03/09/18 [History Confirmed 04/17/20] Calcium Citrate 600 mg PO TID 11/12/18 [History Confirmed 04/17/20] Multivitamins,Therapeutic [Multivitamin] 1 tab PO DAILY 11/12/18 [History Confirmed 04/17/20] [place]-3 Fatty Acids/Fish Oil [Fish Oil 1,000 mg Capsule] 1 cap PO DAILY 11/12/18 [History Confirmed 04/17/20] nitroglycerin 0.4 mg sublingual tablet 0.4 mg SUBLINGUAL Q5-15M PRN 10 Days #25 tab 12/01/18 [Rx Confirmed 04/17/20] Acetaminophen [Tylenol Tablet] 650 mg PO Q6H PRN PRN tab 05/30/19 [Rx Confirmed 04/17/20] losartan 50 mg tablet 50 mg PO BID #180 tab 07/19/19 [Rx Confirmed 04/17/20] potassium chloride 10 mEq tablet,extended release 10 meq PO DAILY #90 tab 07/19/19 [Rx Confirmed 04/17/20] atorvastatin 40 mg tablet 40 mg PO DAILY 90 Days #90 tab 07/22/19 [Rx Confirmed 04/17/20] amlodipine 5 mg tablet 5 mg PO DAILY #90 tab 08/06/19 [Rx Confirmed 04/17/20] metoprolol succinate 50 mg tablet,extended release 24 hr 50 mg PO DAILY #90 tab 10/25/19 [Rx Confirmed 04/17/20] isosorbide mononitrate 60 mg tablet,extended release 24 hr 30 mg PO BID tab 03/09/20 [History Confirmed 04/17/20] Diclofenac [Voltaren] 50 mg PO BIDCM #14 tab 04/07/20 [Rx Confirmed 04/17/20] triamterene 37.5 mg-hydrochlorothiazide 25 mg capsule 1 cap PO DAILY 04/10/20 [History Confirmed 04/17/20] Aspirin E.C. [Ecotrin] 81 mg PO DAILY@0800 #0 04/13/20 [Rx Confirmed 04/17/20] Cefdinir [Omnicef [equiv]] 300 mg PO Q12H #6 cap 04/13/20 [Rx Confirmed 04/17/20] Clopidogrel Bisulfate [Clopidogrel] 75 mg PO DAILY #90 tab 04/13/20 [Rx Confirmed 04/17/20] Rivaroxaban [Xarelto] 2.5 mg PO BID #60 tab 04/13/20 [Rx Confirmed 04/17/20] PFSH Medical History Acute febrile illness (Acute) Mediastinal lymphadenopathy (Acute) Essential hypertension (Chronic) Angina pectoris (Chronic) Chest pain (Acute) ABDIAS (obstructive sleep apnea) (Chronic) Anginal equivalent (Inactive) Nonrheumatic mitral (valve) insufficiency (Chronic) Nonrheumatic aortic (valve) insufficiency (Chronic) Nonrheumatic aortic (valve) stenosis (Chronic) Carotid artery disease (Chronic) 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 Bryant Olivas MD) Smoking Status: Never smoker second hand exposure: No alcohol intake: never substance use type: does not use caffeine: Yes Type: coffee Number of servings: 1 what type of physical activity do you participate in: none frequency: does not exercise HPI HPI HPI: PRECIOUS LEIGH, is a 84 F who presents to the office today for HPI HPI Surgical H&P: Yes HPI: PRECIOUS LEIGH, is a 84 F who presents to the office today for adenopathy. Patient was recently in the hospital with pneumonia and had a CT which showed lymphadenopathy of bilateral axilla. She also had lymphadenopathy in the chest and the mediastinum. She is referred to me for biopsy. ROS General General: Yes weight change; no appetite, fatigue, colon cancer, breast cancer or weakness HEENT HEENT: No difficulty swallowing, eye injury, eye surgery, swollen glands or hoarseness Endo Endocrine: Yes thyroid disease; no diabetes mellitus, thyroid cancer, Hair loss, heat intolerance or cold intolerance Skin Skin: No rash or changing moles Musc Musculoskeletal: No back problems, arthritis, rheumatoid arthritis, gout or joint pain Cardio Cardiovascular: Yes murmur, heart disease, high blood pressure and heart stent; no pacemaker, atrial fibrillation, heart attack, palpitations, shortness of breat with exertion or chest pain Psych Psychiatric: No depression, anxiety or hearing voices Resp Respiratory: No shortness of breath, Yes sleep apnea, No cough, No COPD, No asthma, No emphysema, No wheezing Gastro Gastrointestinal: No abdominal pain, No nausea or vomiting, No diarrhea, No constipation, No blood in stool, No acid reflux, No hemorrhoids, No ulcers, No gallbladder problem, No black,tarry stools Kadeem Hematologic: Yes blood thinners, No blood disorders, No bleeding, No anemia, No blood clots Neuro Neurologic: No weakness Exam Const General: cooperative Orientation: alert, oriented x3 Chest Breast Palpation: Yes axillary lymphadenopathy Resp Effort & Inspection: normal respiratory effort Auscultation: clear to auscultation bilaterally Cardio Rate: regular rate Rhythm: regular rhythm Heart Sounds: murmur GI Inspection: non-distended Palpation: soft, nontender Assessment & Plan Problems 1. Mediastinal lymphadenopathy R59.0 2. Axillary lymphadenopathy R59.0 Plan Patient has lymphadenopathy. She also reports that she has had fevers and chest pain. The patient had heart stents approximately 1 year ago and is on Xarelto and fish oil and aspirin and Plavix. I discussed axillary lymph node biopsy on the right with possible left if unable to excise the right. I discussed the risks of bleeding and infection. I will have her stop her Xarelto and Plavix and fish oil as of now but she may continue her aspirin. Plan for excisional biopsy later this week and she may resume blood thinners the following day. We discussed the current risks associated with COVID-19. While it is understood that there is a community spread of COVID-19, the risk of analilia COVID-19 while at [facility] ([facility]) is very low; however, the risk cannot be completely mitigated because of the community spread of the disease. We discussed in detail the risk of exposure to and/or potential harm posed by the COVID-19 virus with having a surgery/procedure at this time versus the risk of delaying the surgery/procedure. It is not possible to know either the risk of delaying the surgery or procedure or chance of getting an infection with perfect accuracy, but a joint decision was made to proceed at this time with the scheduled surgery/procedure as indicated on the consent form. Patient was notified that we will need to comply with any screening or testing [facility] wishes to perform or that surgery may be delayed for any positive results. Bryant Olivas MD Pager: [facility] [address] [place] [address], [address] [place] [address] Office: Coding Level of Care Code Off vis,new,level 3 Diagnoses Mediastinal lymphadenopathy R59.0 Axillary lymphadenopathy R59.0 I have re-examined the patient. There are no clinical changes since date of exam.
[2020-04-20 10:06] VITALS: BP 142/55; PULSE 56; RESP 16; TEMP 5392.2; TEMP 9738; O2SAT 96; BMI 30.4
[2020-04-20] MEDS: Lactated Ringers 1,000 ML 100 ML IV (10:11)
[2020-04-20] MEDS: Cefazolin 2 GM in 0.9% Normal Saline 100 ML IV (11:01)
[2020-04-20] MEDS: Bupiv/Epi 0.25% 30 ML Vial (11:37)
[2020-04-20 11:50] VITALS: BP 113/42; BP 142/55; PULSE 48; PULSE 50; RESP 14; RESP 18; TEMP 36.5; O2SAT 93; O2SAT 94
--- NOTE | 2020-04-20 11:50 | PCM.OPRPT ---
Problem List (1) Lymphadenopathy Status: Acute Report of Operation Date of Procedure: 04/20/20 Pre-Operative Diagnosis: Generalized lymphadenopathy Post-Operative Diagnosis: Same Surgery/Procedure Performed:: Right axillary lymph node excisional biopsy Specimen's removed: Right axillary contents Description of Procedure: Patient was brought to the operating room and MAC anesthesia was induced. The right axillary region was prepped and draped in usual sterile fashion and incision was marked and then injected with local anesthetic. An incision was then made and deepened to the axillary fascia using electrocautery. Lymph nodes were identified and excised and electrocautery was used to maintain hemostasis. The cavity was irrigated and suctioned dry and appeared dry. The axillary fascia was then closed with interrupted 3-0 Vicryl sutures as well as a running 4-0 Monocryl suture. Patient tolerated the procedure well. - Admit VTE Documentation VTE Mechan Device Prophylaxis: SCD's
[2020-04-20 11:55] VITALS: BP 123/45; BP 142/55; PULSE 48; RESP 18; O2SAT 95
--- NOTE | 2020-04-20 11:56 | PCM.DC ---
- Discharge Diagnoses Current Active Problems: Current Active and Chronic Problems (Last Reviewed 04/17/20 @ 13:47 by Loni Iraheta) Lymphadenopathy (Acute) You will use the following diet at home:: Regular Your food should be the consistency of: Regular Discharge Activity: May Shower Lifting Restrictions: 10 lbs for 1 weeks Call your doctor if your incision/area has: Continuous Slow Oozing, Sudden Increased Bleeding, Increased Pain/ Swelling, Increased Redness, Foul Smelling Discharge, Swelling at the incision site Call your doctor if you observe: Fever of 101 or Higher Cleanse incision/area with: Soap & Water Allergies/Adverse Reactions: Allergies Iodinated Contrast Media [Iodinated Contrast- Oral and IV Dye] Allergy (Intermediate, Verified 04/20/20 10:05) Rash ramipril [From Altace] Adverse Reaction (Severe, Verified 04/20/20 10:05) cough Medications to take at Discharge Ascorbic Acid [Vitamin C] 500 mg PO DAILY 01/16/18 Folic Acid 0.4 mg PO DAILY@0800 01/16/18 Ubidecarenone [Co Q-10] 100 mg PO DAILY 03/09/18 Calcium Citrate 600 mg PO TID 11/12/18 Multivitamins,Therapeutic [Multivitamin] 1 tab PO DAILY 11/12/18 [place]-3 Fatty Acids/Fish Oil [Fish Oil 1,000 mg Capsule] 1 cap PO DAILY 11/12/18 nitroglycerin 0.4 mg sublingual tablet 0.4 mg SUBLINGUAL Q5-15M PRN 10 Days #25 tab 12/01/18 Acetaminophen [Tylenol Tablet] 650 mg PO Q6H PRN PRN tab 05/30/19 losartan 50 mg tablet 50 mg PO BID #180 tab 07/19/19 potassium chloride 10 mEq tablet,extended release 10 meq PO DAILY #90 tab 07/19/19 atorvastatin 40 mg tablet 40 mg PO DAILY 90 Days #90 tab 07/22/19 amlodipine 5 mg tablet 5 mg PO DAILY #90 tab 08/06/19 metoprolol succinate 50 mg tablet,extended release 24 hr 50 mg PO DAILY #90 tab 10/25/19 isosorbide mononitrate 60 mg tablet,extended release 24 hr 30 mg PO BID tab 03/09/20 triamterene 37.5 mg-hydrochlorothiazide 25 mg capsule 1 cap PO DAILY 04/10/20 Aspirin E.C. [Ecotrin] 81 mg PO DAILY@0800 #0 04/13/20 Clopidogrel Bisulfate [Clopidogrel] 75 mg PO DAILY #90 tab 04/13/20 Rivaroxaban [Xarelto] 2.5 mg PO BID #60 tab 04/13/20 Levothyroxine [Synthroid] 100 mcg PO DAILY 04/18/20 Test Results: Test results from this visit will be discussed in further detail at your follow-up appointment, if applicable. Please Follow Up With: Bryant Olivas MD When: Please call to schedule 2 week follow up appointment. [phone]
[2020-04-20 11:59] VITALS: BP 128/49; BP 142/55; PULSE 49; RESP 18; O2SAT 94
[2020-04-20 12:00] VITALS: BP 122/56; BP 142/55; PULSE 50; RESP 16; TEMP 36.3; O2SAT 94
[2020-04-20 12:52] VITALS: BP 142/55
== END 2020-04-20 12:56 | disposition home or self-care (01) ==
LOC: SDC 09:33 → AC 09:34
PROVIDERS: PCP Family Medicine; Referring Provider Surgery; Visit Provider Surgery
PROC: (CPT 38500; principal; 2020-04-20 11:05)
DX: R59.0 Localized enlarged lymph nodes (principal); G47.33 Obstructive sleep apnea (adult) (pediatric); I10 Essential (primary) hypertension; I25.10 Atherosclerotic heart disease of native coronary artery without angina pectoris; E03.9 Hypothyroidism, unspecified; E78.5 Hyperlipidemia, unspecified; Z95.5 Presence of coronary angioplasty implant and graft; Z79.899 Other long term (current) drug therapy; Z79.82 Long term (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 aspirin; Z79.02 Long term (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 antithrombotics/antiplatelets; Z79.01 Long term (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 anticoagulants
CPT/HCPCS: 01610; 38525; 88305; 88307; 88331; J7120; J2405

== ENCOUNTER → 2020-05-04 12:53 | Outpatient (CLI) | payer MEDICARE, OTHER, SELFPAY ==
[2020-04-20 10:06] VITALS: BMI 30.4
--- NOTE | 2020-05-04 12:54 | CT_ITS ---
STUDY: CT CHEST WITHOUT CONTRAST REASON FOR EXAM: Female, 84 years old. ENLARGED LYMPH NODES. HX OF STENTS RADIATION DOSAGE (If Supplied By Facility): CTDIvol = ( 10.45 ) mGy, DLP = ( 332.24 ) mGycm TECHNIQUE: Transaxial imaging was performed without the administration of intravenous contrast material. Multiplanar coronal and sagittal images were reformatted. Individualized dose optimization techniques were used for this CT. COMPARISON: None. FINDINGS: Since prior study, there has been progression of interstitial scarring in the lower lobes worse on the left side. Stable appearance of the pleural-based nodules the largest is in the left lower lobe abutting the pleural surface. This measures 6 mm. There is no demonstrated pleural abnormality. There are calcifications of the coronary arteries. Calcification the mitral valve annulus. Stable bilateral hilar and mediastinal lymphadenopathy.. There is prominence of the pulmonary hilar arteries without peripheral pulmonary vascular congestion, suggesting pulmonary hypertension. There is atherosclerotic calcification of the aortic arch with tortuosity and elongation of the aortic arch and descending thoracic aorta. There are multi-level degenerative changes of the thoracic spine. There is no demonstrated abnormality of the visualized upper abdomen. CT/Chest without Contrast IMPRESSION: Since prior study, there has been a progression of the increased interstitial markings at the lung bases worse on the left side. Stable bilateral pulmonary nodules. Electronically Signed: Cristiano Stout, at 14:06 EST , Service support ,
--- NOTE | 2020-05-04 13:17 | CT_ITS ---
STUDY: CT ABDOMEN AND PELVIS WITHOUT CONTRAST REASON FOR EXAM: Female, 84 years old. ENLARGED LYMPH NODES. HX OF GALLBLADDER REMOVAL RADIATION DOSAGE (If Supplied By Facility): CTDIvol = ( 11.22 ) mGy, DLP = ( 512.15 ) mGycm TECHNIQUE: Transaxial images were obtained from the dome of the diaphragm to the symphysis pubis without oral contrast, and without intravenous contrast. Sagittal and coronal images were reconstructed. Individualized dose optimization techniques were used for this CT. COMPARISON: Comparison is made with prior study dated 04/13/2020. FINDINGS: Stable interstitial scarring at the lung bases. A dual-chamber pacemaker is seen. The visualized portions of the heart are within normal limits. There is hepatomegaly with diffuse hepatic enlargement. There are surgical clips in the gallbladder fossa consistent with a prior cholecystectomy. Normal spleen. Normal pancreas. Normal bilateral adrenal glands. Normal right kidney. Normal left kidney. Normal visualized stomach. Normal small intestine. Normal colon. The appendix is visualized and appears normal. There is diffuse atherosclerotic calcification of the abdominal aorta and major visceral branches, without a demonstrated aneurysm. Normal inferior vena cava. There is borderline retroperitoneal lymphadenopathy with enlarged nodes no greater than 10mm in the short axis diameter. Normal urinary bladder. Normal abdominal wall. There are degenerative changes of the visualized lumbar spine. CT/Abdomen/Pelvis without Cont IMPRESSION: Stable mild linear scarring at the lung bases. Hepatomegaly. Status post cholecystectomy. Electronically Signed: Cristiano Stout, at 13:41 EST , Service support ,
== END ==
PROVIDERS: PCP Family Medicine; Referring Provider Surgery; Visit Provider Surgery
DX: R59.1 Generalized enlarged lymph nodes (principal)
CPT/HCPCS: 71250; 74176

== ENCOUNTER → 2020-05-19 11:17 | Outpatient (CLI) | payer MEDICARE, OTHER, SELFPAY ==
[2020-03-08 15:56] VITALS: BMI 30.5
[2020-04-20 10:06] VITALS: BMI 30.4
[2020-05-19 15:11] LABS: Absolute Lymphocyte Count 1.93 X10^3/uL (0.83-4.51); Absolute Neutrophil Count 5.8 X10^3/uL (2.0-7.7); Eosinophil# 0.99 X10^3/uL; Eosinophils% 10.1 % (0-5); Hematocrit 36.8 % (37-47); Hemoglobin 11.7 g/dL (12.0-15.0); Lymphocyte # 1.93 X10^3/ul (4.0); Lymphocyte % 19.7 % (19-41); Mean Corp Hgb Conc 31.8 g/dL (32-36); Mean Corpuscular Volume 94.4 fL (81-99); Mean Platelet Vol. 10.1 fl (6.2-12.0); Monocyte# 0.92 X10^3/uL; Monocyte% 9.4 % (0-10); NRBC Flagged by Analyzer 0 % (0-5); Neutrophil # 5.82 X10^3/uL (2.7-7.7); Neutrophil % 59.5 % (47-70); Platelet Count 306 K/mm3 (150-450); RBC Distribution Width CV 14.7 % (11.6-14.6); RBC Distribution Width SD 51.3 fl (35.1-43.9); White Blood Count 9.8 K/mm3 (4.4-11.0)
[2020-05-19 15:44] LABS: Hemoglobin A1c 5.8 % (3.8-5.6)
[2020-05-19 15:58] LABS: Thyroid Stim Hormone (TSH) 1.49 uIU/mL (0.358-3.74)
== END ==
LOC: LAB.FUTURE 11:17 → BFHLAB 11:58
PROVIDERS: PCP Family Medicine; Visit Provider Family Medicine
DX: E03.9 Hypothyroidism, unspecified (principal); R73.01 Impaired fasting glucose
CPT/HCPCS: 36415; 83036; 84443; 85025

== ENCOUNTER 2020-07-13 09:36 | Outpatient (RCR) | payer MEDICARE, OTHER, SELFPAY ==
[2020-05-26 11:07] VITALS: BMI 30.8
== END 2020-07-13 23:59 ==
LOC: IMMUN 09:36
PROVIDERS: PCP Family Medicine; Visit Provider Family Medicine
DX: Z23 Encounter for immunization (principal)
CPT/HCPCS: 0011A; 0012A; 91301

== ENCOUNTER → 2020-08-30 10:34 | Outpatient (CLI) | payer MEDICARE, OTHER, SELFPAY ==
[2020-08-17 15:29] VITALS: BMI 30.6
--- NOTE | 2020-08-30 10:37 | CDU_ITS ---
Reason For Study: Left carotid bruit Rt. Velocities/BP Lt. Velocities/BP Prox CCA 102.1/9.5 cm/sec. Prox CCA 68.4/9.1 cm/sec. Mid CCA 104.7/6.9 cm/sec. Mid CCA 79.4/9.1 cm/sec. Dist CCA 79.9/6.9 cm/sec. Dist CCA 67.3/9.1 cm/sec. Prox ICA 66.2/10.2 cm/sec. Prox ICA 158.8/24.1. cm/sec. Mid ICA 93.7/16.8 cm/sec. Mid ICA 174.3/18.9 cm/sec. Dist ICA 97/12.4 cm/sec. Dist ICA 107/18.9 cm/sec. Rt. ICA/CCA = 0.95. Lt. ICA/CCA = 2.55. Prox ECA 141.2 cm/sec. Prox ECA 236.9 cm/sec. Rt. Vert. 52/10.2 cm/sec. Lt. Vert. 45.8/9 cm/sec. Right Extracranial There is homogeneous, smooth atherosclerotic plaque noted in the right common carotid artery. There is heterogeneous, irregular atherosclerotic plaque noted in the right internal carotid artery. There is intimal thickening but no significant atherosclerotic plaque noted in the right external carotid artery. Antegrade flow is noted in the right vertebral artery. Left Extracranial There is homogeneous, smooth atherosclerotic plaque noted in the left common carotid artery. There is heterogeneous, irregular atherosclerotic plaque noted in the left internal carotid artery. The atherosclerotic plaque causes acoustic shadowing. There is heterogeneous, irregular atherosclerotic plaque noted in the left external carotid artery. Antegrade flow is noted in the left vertebral artery. Procedure Carotid Duplex 23614. This is a Carotid Duplex examination using B-mode, color flow and specral Doppler. Exam performed in department. Interpretation Summary Calcific heterogenous plaque at the proximal right internal carotid artery with less than 50% stenosis. Less than 50% stenosis right external carotid artery Irregular calcific plaque at the proximal left internal carotid artery with 50 to 69% stenosis. Greater than 50% stenosis left external carotid artery Patent and antegrade vertebrals bilaterally Findings appear similar to the previous examination of December 09, 2018 Ordering Physician: Joi Rivera Referring Physician: Boyd Casiano Performed By: Sharon Bridges RVT
== END ==
PROVIDERS: PCP Family Medicine; Referring Provider Physician Assistant Medical; Visit Provider Physician Assistant Medical
DX: I65.23 Occlusion and stenosis of bilateral carotid arteries (principal); Z23 Encounter for immunization
CPT/HCPCS: 0012A; 93880

== ENCOUNTER → 2020-10-10 08:43 | Outpatient (CLI) | payer MEDICARE, OTHER, SELFPAY ==
[2020-08-17 15:29] VITALS: BMI 30.6
[2020-10-10 10:23] LABS: AST(SGOT) 26 U/L (15-37); Alanine Aminotransfer ALT/SGPT 22 U/L (13-56); Albumin, Serum 3.7 g/dL (3.2-5.0); Alkaline Phosphatase 102 U/L (45-117); Bilirubin, Direct 0.17 mg/dL (0.00-0.30); Cholesterol 90 mg/dL (200); Globulin 4.5 g/dL (2.2-4.2); High Density Lipoprotein 29 mg/dL; Protein, Total 8.2 g/dL (6.4-8.2); Triglycerides 211 mg/dL; Very Low Density Lipoprotein 42 mg/dL (5-40)
== END ==
PROVIDERS: PCP Family Medicine; Referring Provider Physician Assistant Medical; Visit Provider Physician Assistant Medical
DX: E78.00 Pure hypercholesterolemia, unspecified (principal); E78.5 Hyperlipidemia, unspecified
CPT/HCPCS: 36415; 80061; 80076

== ENCOUNTER → 2020-11-30 14:10 | Outpatient (CLI) | payer MEDICARE, OTHER, SELFPAY ==
[2020-08-17 15:29] VITALS: BMI 30.6
--- NOTE | 2020-11-30 14:14 | CT_ITS ---
STUDY: CT CHEST WITH CONTRAST REASON FOR EXAM: Female, 85 years old. Follow up on lymphadenopathy and nodule RADIATION DOSAGE (If Supplied By Facility): CTDIvol = ( 10.91 ) mGy, DLP = ( 309.49 ) mGycm TECHNIQUE: Transaxial imaging was performed following intravenous administration of IV 100mL [id number]-300. Multiplanar coronal and sagittal images were reformatted. Individualized dose optimization techniques were used for this CT. COMPARISON: Comparison is made with prior examination dated 05/04/2020. FINDINGS: There has been progression of the interstitial markings with areas of confluence in both lungs worse in the left lower lobe. There are areas of confluence. There is a preferential peripheral distribution in the upper lobes. An infectious process superimposed on scarring should be ruled out. Stable peripheral based small noncalcified nodules. There is no demonstrated pleural abnormality. There is mild cardiac enlargement. There are calcifications of the coronary arteries. Since prior study, there has been enlargement of the bilateral hilar and mediastinal lymphadenopathy. Normal enhanced pulmonary arteries. There is atherosclerotic calcification of the aortic arch with tortuosity and elongation of the aortic arch and descending thoracic aorta. There are multi-level degenerative changes of the thoracic spine. There is no demonstrated abnormality of the visualized upper abdomen. CT/Chest WITH Contrast IMPRESSION: Since prior study, there has been progression of the hilar and mediastinal lymphadenopathy with progressive increase markings in both lungs with areas of confluence in the preferential peripheral distribution. Inflammatory process superimposed on chronic scarring should be ruled out. Electronically Signed: Cristiano Stout MD at 15:10 EDT , Service support ,
[2020-11-30 14:41] LABS: CREATININE FINGERSTICK 1.3 mg/dL (0.55-1.02)
== END ==
PROVIDERS: PCP Family Medicine; Referring Provider Nurse Practitioner Acute Care; Visit Provider Nurse Practitioner Acute Care
DX: R59.0 Localized enlarged lymph nodes (principal)
CPT/HCPCS: 71260; Q9967

== ENCOUNTER → 2020-12-04 13:39 | Outpatient (CLI) | payer MEDICARE, OTHER, SELFPAY ==
[2020-12-04 07:59] VITALS: BMI 30.6
[2020-12-04 14:29] LABS: Rheumatoid Factor < 10.0 IU/mL (<15)
[2020-12-06 21:08] LABS: ANTINUCLEAR ANTIBODIES DIRECT Negative (Negative)
[2020-12-07 16:09] LABS: Angiotensin Convert Enzyme 45 U/L (14-82); Cytoplasmic Ab (C-ANCA) <1:20 titer (Neg:<1:20)
[2020-12-07 19:48] LABS: CCP IgG Antibodies 9 units (0-19)
== END ==
PROVIDERS: PCP Family Medicine; Referring Provider Nurse Practitioner Acute Care; Visit Provider Nurse Practitioner Acute Care
DX: R59.1 Generalized enlarged lymph nodes (principal)
CPT/HCPCS: 36415; 82164; 86038; 86200; 86225; 86235; 86256; 86431

== ENCOUNTER → 2020-12-07 12:28 | Outpatient (CLI) | payer MEDICARE, OTHER, SELFPAY ==
[2020-12-04 07:59] VITALS: BMI 30.6
== END ==
LOC: PSN 12:28 → LABSPEC 13:44
PROVIDERS: PCP Family Medicine; Referring Provider Nurse Practitioner Acute Care; Visit Provider Nurse Practitioner Acute Care
DX: R59.9 Enlarged lymph nodes, unspecified (principal); R05 Cough
CPT/HCPCS: 87015; 87116; 87206

== ENCOUNTER → 2020-12-28 12:48 | Outpatient (CLI) | payer MEDICARE, OTHER, SELFPAY ==
[2020-12-28 11:02] VITALS: BMI 28.7
[2020-12-28 13:21] LABS: Absolute Lymphocyte Count 1.16 X10^3/uL (0.83-4.51); Absolute Neutrophil Count 5.4 X10^3/uL (2.0-7.7); Basophil% 1.1 % (0-1); Eosinophil# 1.53 X10^3/uL; Eosinophils% 17.3 % (0-5); Hematocrit 28.1 % (37-47); Lymphocyte # 1.16 X10^3/ul (0.83-4.51); Lymphocyte % 13.1 % (19-41); Mean Corpuscular Hgb 29.1 pg (27.0-32.0); Mean Corpuscular Volume 90.9 fL (81-99); Mean Platelet Vol. 9.9 fl (6.2-12.0); Monocyte# 0.62 X10^3/uL; NRBC Flagged by Analyzer 0 % (0-5); Neutrophil # 5.39 X10^3/uL (2.7-7.7); Neutrophil % 61.2 % (47-70); Platelet Count 223 K/mm3 (150-450); RBC Distribution Width CV 16.2 % (11.6-14.6); Red Blood Count 3.09 M/mm3 (4.2-5.4); White Blood Count 8.8 K/mm3 (4.4-11.0)
[2020-12-28 13:33] LABS: International Normalized Ratio 1.3
== END ==
PROVIDERS: PCP Family Medicine; Referring Provider Internal Medicine Critical Care Medicine; Visit Provider Internal Medicine Critical Care Medicine
DX: E78.5 Hyperlipidemia, unspecified (principal); I38 Endocarditis, valve unspecified; R76.8 Other specified abnormal immunological findings in serum
CPT/HCPCS: 36415; 85025; 85610

== ENCOUNTER 2021-01-12 10:38 | Day surgery (SDC) | payer MEDICARE, OTHER, SELFPAY ==
[2020-12-28 11:02] VITALS: BMI 28.7
--- NOTE | 2021-01-08 06:51 | HP.PCM_ITS ---
[facility] - General General Date of Service: 01/12/21 [facility] Narrative The patient is an 85-year-old female who was last seen in the pulmonary medicine clinic on December 28, 2020 due to a history of obstructive sleep apnea and interstitial lung disease. I have followed this patient in the past due to a history of obstructive sleep apnea. Diagnostic polysomnogram that was completed in December 2018 revealed an overall AHI of 35 events per hour. A follow-up titration study was completed later that month, for which it was recommended the patient be placed on BiPAP with a pressure support of 20/16 centimeters of water. In March 2020, the patient was hospitalized with an acute febrile illness con cerning for pneumonia. A CT chest was obtained on April 13, 2020 and revealed patchy bilateral infiltrates along with mediastinal and hilar adenopathy. There is also evidence of axillary adenopathy. Post discharge, the patient was referred to surgery and underwent a right axillary lymph node excisional biopsy which was negative for malignancy or lymphoproliferative disorder. The patient then followed up with our nurse practitioner in May 2020, at which time, a repeat chest CT was ordered. The repeat contrasted chest CT was completed in November 2020 and revealed progressive interstitial lung disease with subpleural interstitial thickening and ground glass changes most pronounced in the lower lobes. There was associated mediastinal and hilar adenopathy. An autoimmune work-up was subsequently ordered and the patient was found to have a positive P ANCA antibody titer at 1:160. The patient is currently scheduled to follow-up with rheumatology. [facility] Medical History (Updated 01/08/21 @ 06:[address] Williams Membreno, ) Acute febrile illness Angina pectoris Anginal equivalent Aortic insufficiency Atherosclerotic heart disease of [place] coronary artery without angina pectoris CAD (coronary artery disease) Carotid artery disease Chest pain Essential hypertension Hyperlipidemia Hypothyroidism Mediastinal lymphadenopathy Nonrheumatic aortic (valve) insufficiency Nonrheumatic aortic (valve) stenosis Nonrheumatic mitral (valve) insufficiency ABDIAS (obstructive sleep apnea) Valvular heart disease Home Medications ascorbic acid (vitamin C) 500 mg PO DAILY 01/16/18 [History Last Taken 05/26/19 12:00] folic acid 0.4 mg PO DAILY@0800 01/16/18 [History Last Taken 05/26/19 08:00] coenzyme Q10 100 mg PO DAILY 03/09/18 [History Last Taken 04/14/19 12:00] calcium citrate 600 mg PO TID 11/12/18 [History Last Taken 05/26/19 12:00] multivitamin with folic acid 1 tab PO DAILY 11/12/18 [History Last Taken 04/14/19 09:00] omega-3 fatty acids-fish oil 1 cap PO DAILY 11/12/18 [History Last Taken 04/14/19 17:00] nitroglycerin 0.4 mg sublingual tablet 0.4 mg SUBLINGUAL Q5-15M PRN 10 Days #25 tab 12/01/18 [Rx Last Taken 04/15/19 02:00] acetaminophen 650 mg PO Q6H PRN PRN tab 05/30/19 [Rx Last Taken Unknown] aspirin 81 mg PO DAILY@0800 #0 04/13/20 [Rx Last Taken 05/26/19 08:00] clopidogrel 75 mg PO DAILY #90 tab 04/13/20 [Rx Last Taken Unknown] levothyroxine 100 mcg PO DAILY 04/18/20 [History Last Taken 04/20/20] rivaroxaban 2.5 mg tablet 2.5 mg PO BID #60 tab 06/27/20 [Rx Last Taken Unknown] atorvastatin 40 mg tablet 40 mg PO DAILY #90 tab 07/24/20 [Rx Last Taken Unknown] potassium chloride 10 mEq tablet,extended release 10 meq PO DAILY #90 tab 07/24/20 [Rx Last Taken Unknown] losartan 50 mg tablet 50 mg PO BID #180 tab 08/21/20 [Rx Last Taken Unknown] amlodipine 5 mg tablet 5 mg PO DAILY #90 tab 08/24/20 [Rx Last Taken Unknown] triamterene 37.5 mg-hydrochlorothiazide 25 mg capsule 1 cap PO DAILY #90 cap 09/04/20 [Rx Last Taken Unknown] metoprolol succinate 50 mg tablet,extended release 24 hr 50 mg PO DAILY #90 tab 10/20/20 [Rx Last Taken Unknown] isosorbide mononitrate 60 mg tablet,extended release 24 hr 30 mg PO BID #180 tab 11/21/20 [Rx Last Taken Unknown] Sodium Chloride 3% #3 ea 12/04/20 [Rx Last Taken Unknown] Allergy/AdvReac Type Severity Reaction Status Date / Time Iodinated Contrast Media Allergy Intermediate Rash Verified 12/28/20 11:03 [Iodinated Contrast- Oral and IV Dye] ramipril [From Altace] AdvReac Severe cough Verified 12/28/20 11:03 Family History Mother , Age 63 Myocardial infarction Father , Age 28 Colon cancer Other Heart disease Surgical History History of cholecystectomy History of percutaneous transluminal coronary angioplasty (04/16/19) Presence of stent in coronary artery (05/28/19) Social History Smoking Status: Never smoker second hand exposure: No alcohol intake: never substance use type: does not use caffeine: Yes Type: coffee Number of servings: 1 what type of physical activity do you participate in: none frequency: does not exercise ROS Constitutional Constitutional: Denies chills, fatigue or fever(s) Eyes Eyes: Denies blurry vision or change in vision ENT HEENT: Denies abnormal hearing, dysphagia or headache(s) Cardiovascular Cardiovascular: Denies chest pain Respiratory/Chest Respiratory/Chest: Reports shortness of breath with exertion; Denies cough Gastrointestinal Gastrointestinal: Denies abdominal pain Genitourinary Genitourinary: Denies dysuria or hematuria Musculoskeletal Musculoskeletal: Denies back pain Integumentary Integumentary: Denies dry skin, jaundice or lesions Neurologic Neurologic: Denies abnormal gait or abnormal speech Psychiatric Psychiatric: Denies anxiety or depression Endocrine Endocrinology: Denies change in body appearance Hematologic/Lymphatic Hematologic/Lymphatic: Denies anemia, easy bleeding or easy bruising Vital Signs Vital Signs Vital Signs: Weight Body Mass Index (BMI) 28.7 Physical Exam Const alert and no apparent distress General Appearance: cooperative HEENT normocephalic and head/scalp atraumatic Eyes PERRL and EOMs intact bilaterally Neck supple General: trachea midline Resp normal respiratory effort Auscultation: rales and diminished lung sounds Cardio regular rate and regular rhythm GI normal to inspection, nondistended, normoactive bowel sounds Extremity no clubbing, cyanosis or edema Skin no rashes or lesions noted Neuro CN's II-XII intact bilaterally and no focal motor deficits Psych affect normal Appearance: appropriate Assessment & Plan Assessment/Plan (1) Mediastinal lymphadenopathy: PLAN: ASSESSMENT/PLAN: 1. Interstitial lung disease/mediastinal and hilar lymphadenopathy The patient does have radiographic evidence of interstitial lung disease along with mediastinal and hilar adenopathy and a UIP type pattern. Prior work-up indicated that the patient had a positive P ANCA antibody titer at 1:160. My concern is that the patient's radiographic abnormalities including her adenopathy may be the consequence of an underlying vasculitis such as granulomatosis with polyangiitis or microscopic polyangiitis. Alternatively, her adenopathy could be related to an underlying granulomatous disorder such as sarcoidosis. Accordingly, the patient is agreeable to proceeding with EBUS facilitated mediastinal lymph node sampling, while awaiting rheumatology evaluation. Risks and benefits of the proposed procedure were reviewed with the patient. She is agreeable to proceed.
[2021-01-12] VITALS (7 sets, daily range): BP systolic 124–161; BP diastolic 46–54; PULSE 60–69; RESP 16; TEMP 36.4–36.6; O2SAT 94–100; BMI 29.1
--- NOTE | 2021-01-12 | IMM_PTH ---
PATIENT: PRECIOUS LEIGH LOC: EN U#:[id number] AGE/SX: 85/F ROOM: RE01/12/[address]: Dr. Williams Membreno DO : 1935 BED: DIS: 01/12/2021 SPEC #: [id number] RECD: 01/15/21 14:34 STATUS: ANTONIETA REQ #: [id number] BLAYNE: 01/12/21 00:[address]: Williams Membreno DEPT: IMMUNOHISTOCHEMISTRY RECD BY: Dennise Maguire ENTERED: 01/15/21 14:36 SP TYPE: IMMUNO OTHR DR: Dr. Boyd Casiano MD Tissues: J - Lung, NOS Procedures: BCL-2 (add) BCL-6 (add) CD10 (add) CD20 (add) CD23 (add) CD43 (add) CD45 (add) CD5 (add) CD79A (add) CYCLIN (add) KI-67 (add) CD3 (initial) PHYSICIAN & [address] [address] SPECIMEN INFORMATION: Tissue Source: Brijesh Demario GOODMAN, TBNA, site 7 Clinical Info: Rule out granuloma/lymphoma Specimen Number: [id number] CPT code: 26898, 47652 x11 METHODOLOGY: Deparaffinized sections of prefer/formalin-fixed tissue or PAP/DQ stained slides are incubated with monoclonal/polyclonal antibodies/oligonucleotide probes. Localization is made via biotin free immunoperoxidase method. Appropriate controls are performed and reacted as expected. Results on target cell population are indicated in the following table: RESULTS: ANTIBODY / CLONE RESULT Block J CD3 (PS1) positive CD5 (SP10) positive CD20 (L26) positive CD43 (L60) positive CD45 (RP2/18) positive CD79a (11E3) positive CD10 (56C6) negative CD23 (1B12) negative BCL-2 (bcl-2/100/D5) positive BCL-6 (DD885V/A8) negative Cyclin D1/BCL-1 (SP4) negative Ki-67 (30-9) positive, low These tests were developed and their performance characteristics determined by [facility]. They may not have been cleared or approved by the U.S. Food and Drug Administration. The FDA has determined that such clearance or approval is not necessary. The above immunohistochemical/dualISH markers are ordered and reviewed by the Pathologist. INTERPRETATION: Lucy GOODMAN TBNA, site 7: Negative for involvement by lymphoma. SJ:darline 01/16/2021 Case has been reviewed in consultation with Dr. Bray who concurs with the above diagnosis. IDC:AM
--- NOTE | 2021-01-12 | ASPIG_PTH ---
PATIENT: PRECIOUS LEIGH LOC: EN U#:[id number] AGE/SX: 85/F ROOM: RE01/12/[address]: Dr. Williams Membreno DO : 1935 BED: DIS: 01/12/2021 SPEC #: [id number] RECD: 01/12/21 13:36 STATUS: ANTONIETA TERRELL #: [id number] BLAYNE: 01/12/21 00:[address]: Williams Membreno DEPT: CYTOLOGY RECD BY: Phyllis Mendenhall ENTERED: 01/12/21 13:40 SP TYPE: ASP OUT OTHR DR: Dr. Boyd Casiano MD Tissues: A - Lung, NOS B - Lung, NOS C - Lung, NOS D - Lung, NOS E - Lung, NOS F - Lung, NOS G - Lung, NOS H - Lung, NOS I - Lung, NOS J - Lung, NOS K - Lung, NOS L - Lung, NOS M - Lung, NOS Procedures: FNA Specimen Adequacy Special Stain Group II Surgery Specimen Level IV Cytology Other HEADER OPERATION: EBUS PRE-OP DIAGNOSIS: Rule out granuloma/lymphoma TISSUE SUBMITTED: A - EBUS, TBNA, site 7 #1, B - EBUS, TBNA, site 7 #2, C - EBUS, TBNA, site 7 #3, D - EBUS, TBNA, site 10R #4, E - EBUS, TBNA, site 10R #5, F - EBUS, TBNA, site 10R #6, G - EBUS, TBNA, site 10L #7, H - EBUS, TBNA, site 10L #8, I - EBUS, TBNA, site 10L #9, J - EBUS, TBNA, site 7 (subcarina), K - EBUS, TBNA, site 10R (right hilar), L - EBUS, TBNA, site 10L (left hilar), M - BAL LLL DIAGNOSIS CYTOLOGY A. EBUS, TBNA, site 7 #1 (smears): Negative for malignant cells or granulomas. Respiratory epithelial cells, macrophages and a few lymphocytes noted. B. EBUS, TBNA, site 7 #2 (smears): Numerous lymphocytes noted. Negative for malignant cells. C. EBUS, TBNA, site 7 #3 (smears): Negative for malignant cells.. Respiratory epithelial cells, macrophages and a few lymphocytes noted. D. EBUS, TBNA, site 10R #4 (smears): Negative for malignant cells. A few respiratory epithelial cells and lymphocytes noted. E. EBUS, TBNA, site 10R #5 (smears): Negative for malignant cells. Lymphocytes and respiratory epithelial cells noted. F. EBUS, TBNA, site 10R #6 (smears): Negative for malignant cells. A few lymphocytes noted. G. EBUS, TBNA, site 10L #7 (smears): Negative for malignant cells. Rare lymphocytes and respiratory epithelial cells noted. H. EBUS, TBNA, site 10L #8 (smears): Negative for malignant cells. Numerous lymphocytes noted. I. EBUS, TBNA, site 10L #9 (smears): Negative for malignant cells. Rare lymphocytes. Bloody specimen. J. EBUS, TBNA, site 7 fluid (cell block): Negative for malignant cells. See comment. K. EBUS, TBNA, site 10R fluid (cell block): Negative for malignant cells. See comment. L. EBUS, TBNA, site 10L fluid (cell block): Negative for malignant cells. See comment. M. BAL LLL (cytospin and cell block): Negative for malignant cells. SJ:darline 01/15/2021 COMMENT The specimen is evaluated at the time of EBUS by Dr. Ramos. Rapid Onsite Evaluation: A. EBUS, TBNA, site 7 #1: Negative for malignant cells or granulomas. Respiratory epithelial cells, macrophages and a few lymphocytes noted. B. EBUS, TBNA, site 7 #2: Numerous lymphocytes noted. Negative for malignant cells. C. EBUS, TBNA, site 7 #3: Negative for malignant cells. Predominantly respiratory epithelial cells. D. EBUS, TBNA, site 10R #4: Negative for malignant cells. A few respiratory epithelial cells and lymphocytes noted. E. EBUS, TBNA, site 10R #5: Negative for malignant cells. Lymphocytes and respiratory epithelial cells noted. F. EBUS, TBNA, site 10R #6: Negative for malignant cells. A few lymphocytes noted. G. EBUS, TBNA, site 10L #7: Negative for malignant cells. Rare lymphocytes noted. H. EBUS, TBNA, site 10L #8: Negative for malignant cells. Numerous lymphocytes noted. I. EBUS, TBNA, site 10L #9: Negative for malignant cells. Rare lymphocytes. Bloody specimen. J. Numerous lymphocytes, respiratory epithelial cells and cartilage is noted. Granulomas are not seen. Immunohistochemistry ([id number]) is negative for involvement by lymphoma. K. Lymphocytes and respiratory epithelial cells are noted. Granulomas are not seen. L. Lymphocytes and respiratory epithelial cells are noted. Granulomas are not seen. J-L. Flow cytometry study from [facility] [employer] shows no evidence of B or T-cell lymphoma. Complete report is viewable in patient?s EMR. Correlation with clinical, radiologic findings and appropriate follow up are necessary. Case has been reviewed in consultation with Dr. Bray who concurs with the above diagnosis. IDC:AM CYTOLOGY STUDY Slides are reviewed. CYTOLOGY GROSS A - Received labeled with the patient's name and and designated EBUS, TBNA, site 7 #1. The specimen consists of two stained smears for MELODY (Rapid Onsite Evaluation). B - Received labeled with the patient's name and and designated EBUS, TBNA, site 7 #2. The specimen consists of two stained smears for MELODY. C - Received labeled with the patient's name and and designated EBUS, TBNA, site 7 #3. The specimen consists of two stained smears for MELODY. D - Received labeled with the patient's name and and designated EBUS, TBNA, site 10R #4. The specimen consists of two stained smears for MELODY. E - Received labeled with the patient's name and and designated EBUS, TBNA, site 10R #5. The specimen consists of two stained smears for MELODY. F - Received labeled with the patient's name and and designated EBUS, TBNA, site 10R #6. The specimen consists of two stained smears for MELODY. G - Received labeled with the patient's name and and designated EBUS, TBNA, site 10L #7. The specimen consists of two stained smears for MELODY. H - Received labeled with the patient's name and and designated EBUS, TBNA, site 10L #8. The specimen consists of two stained smears for MELODY. I - Received labeled with the patient's name and and designated EBUS, TBNA, site 10L #9. The specimen consists of two stained smears for MELODY. J - Received in RPMI is 20 ml of pink, needle rinsed fluid labeled with the patient's name and and designated EBUS, TBNA, site 7 (subcarina). The specimen is submitted for cell block preparation. K - Received in RPMI is 20 ml of pink, needle rinsed fluid labeled with the patient's name and and designated EBUS, TBNA, site 10R (right hilar). The specimen is submitted for cell block preparation. L - Received in RPMI is 20 ml of pink, needle rinsed fluid labeled with the patient's name and and designated EBUS, TBNA, site 10L (left hilar). The specimen is submitted for cell block preparation. M - Received is 15 ml of pink hazy fluid labeled with the patient's name and and designated per the requisition as BAL LLL. Submitted for cytology preparation including cell block. Note, half of the specimen from J, K & L is mixed and submitted for flow cytometry studies. / SJ:darline 01/12/2021 TC:5 CPT: 37507 x6, 78977 x3, 27730 x3, 12254 x4, 39747
[2021-01-12] MEDS: Lactated Ringers 1,000 ML 100 ML IV ×2 (10:50→13:00)
--- NOTE | 2021-01-12 13:23 | OP.BRONCH_ITS ---
Patient Name: Mariah Jean Procedure Date: 01/12/2021 11:53 AM Date of : 1935 Age: 85 Procedure: Bronchoscopy Indications: Mediastinal adenopathy, Abnormal CT scan of chest Providers: Williams Membreno MD Medicines: General Anesthesia, See the Anesthesia note for documentation of the administered medications Complications: No immediate complications Procedure: Pre-Anesthesia Assessment: - A History and Physical has been performed. Patient meds and allergies have been reviewed. The risks and benefits of the procedure and the sedation options and risks were discussed with the patient. All questions were answered and informed consent was obtained. Patient identification and proposed procedure were verified prior to the procedure by the physician and the nurse in the procedure room. Mental Status Examination: alert and oriented. Airway Examination: normal oropharyngeal airway. Respiratory Examination: clear to auscultation. CV Examination: normal. ASA Grade Assessment: II - A patient with mild systemic disease. After reviewing the risks and benefits, the patient was deemed in satisfactory condition to undergo the procedure. The anesthesia plan was to use general anesthesia. Immediately prior to administration of medications, the patient was re-assessed for adequacy to receive sedatives. The heart rate, respiratory rate, oxygen saturations, blood pressure, adequacy of pulmonary ventilation, and response to care were monitored throughout the procedure. The physical status of the patient was re-assessed after the procedure. After I obtained informed consent, the scope was passed under direct vision. Throughout the procedure, the patient's blood pressure, pulse, and oxygen saturations were monitored continuously. The ultrasound bronchoscope was introduced through the mouth, via laryngeal mask airway and advanced to the tracheobronchial tree. The bronchoscope was introduced through the mouth, via laryngeal mask airway and advanced to the tracheobronchial tree. The procedure was accomplished without difficulty. The patient tolerated the procedure well. Findings: The laryngeal mask airway is in good position. The vocal cords appear normal. The subglottic space is normal. The trachea is of normal caliber. The rosana is sharp. The tracheobronchial tree was examined to at least the first subsegmental level. Bronchial mucosa and anatomy are normal; there are no endobronchial lesions, and no secretions. Bronchoalveolar lavage was performed in the left lower lobe of the lung and sent for cell count, bacterial culture, viral smears & culture, and fungal & AFB analysis and cytology. 60 mL of fluid were instilled. 30 mL were returned. The return was cloudy. There were no mucoid plugs in the return fluid. The scope was withdrawn and replaced with the EBUS bronchoscope to accomplish the ultrasound examination. Lymph Nodes: An endobronchial ultrasound endoscope was utilized to systematically examine the subcarinal mediastinum (level 7), right hilar region (level 10R) and left hilar region (level 10L) in order to assist with fine needle aspiration. Lymph node sizing was performed via endobronchial ultrasound. Sampling by transbronchial needle aspiration was also performed using an Olympus EBUS-TBNA 19 gauge needle in the subcarinal mediastinum (level 7), right hilar region (level 10R) and left hilar region (level 10L) and sent for routine cytology and flow cytometry. - The 7 (subcarinal) node was evaluated. Three samples with the needle were obtained. - The 10R (hilar) node was evaluated. Three samples with the needle were obtained. - The 10L (hilar) node was evaluated. Three samples with the needle were obtained. Impression: - Mediastinal adenopathy - Abnormal CT scan of chest - The airway examination was normal. - Endobronchial ultrasound was performed. - Lymph node sampling was performed. - Bronchoalveolar lavage was performed. Recommendation: - Await BAL and cytology results. Procedure Code(s): --- Professional --- 69917, Bronchoscopy, rigid or flexible, including fluoroscopic guidance, when performed; with endobronchial ultrasound (EBUS) guided transtracheal and/or transbronchial sampling (eg, aspiration[s]/biopsy[ies]), 3 or more mediastinal and/or hilar lymph node stations or structures 11093, Bronchoscopy, rigid or flexible, including fluoroscopic guidance, when performed; with bronchial alveolar lavage Diagnosis Code(s): --- Professional --- R59.0, Localized enlarged lymph nodes R09.89, Other specified symptoms and signs involving the circulatory and respiratory systems R93.8, Abnormal findings on diagnostic imaging of other specified body structures CPT copyright 2017 [employer]. All rights reserved. The codes documented in this report are preliminary and upon coder operator review may be revised to meet current compliance requirements. DO Williams Donato MD 01/12/2021 1:22:58 PM This report has been signed electronically. Number of Addenda: 0 Note Initiated On: 01/12/2021 11:53 AM
[2021-01-12 14:15] LABS: Cytology, Body Fluid / CSF SEE PATHOLOGY REPORT
[2021-01-12 14:44] LABS: Appearance/Body Fluid SL CLDY; Color/Body Fluid COLORLESS; Source- Body Fluid BRONCHIAL LAVAGE
[2021-01-12 14:47] LABS: Red Cell Count/Body Fluid 1275 /mm3; White Blood Count/Body Fluid 80 /mm3
[2021-01-12 15:10] LABS: Lymphocytes 2 %; Macrophages 77 %; Neutrophil (Segs) 9 %; Other Cell Type/BF 12 %
[2021-01-12 15:23] LABS: Body Fluid QC Type(s) BF1Q,BF2Q
[2021-01-15 13:05] LABS: Pathologist Comment/Body Fluid Reviewed
== END 2021-01-12 15:36 ==
LOC: EN 10:39 → AC 10:40
PROVIDERS: PCP Family Medicine; Referring Provider Family Medicine; Visit Provider Internal Medicine Critical Care Medicine
PROC: BB4BZZZ Ultrasonography of Pleura (ICD-10-PCS; CPT 31624; principal; 2021-01-12 11:30)
DX: R59.0 Localized enlarged lymph nodes (principal); E03.9 Hypothyroidism, unspecified; E78.5 Hyperlipidemia, unspecified; G47.33 Obstructive sleep apnea (adult) (pediatric); I10 Essential (primary) hypertension; I25.119 Atherosclerotic heart disease of native coronary artery with unspecified angina pectoris; J84.9 Interstitial pulmonary disease, unspecified; Z79.82 Long term (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 aspirin; Z79.899 Other long term (current) drug therapy
CPT/HCPCS: 31624; 31653; 87015; 87070; 87116; 87205; 87206; 87252; 88161; 88172; 88305; 88313; 88341; 88342; 89050; J7120; J2405

== ENCOUNTER → 2021-01-19 17:42 | Outpatient (CLI) | payer MEDICARE, OTHER, SELFPAY ==
[2021-01-17 08:11] VITALS: BMI 28.9
== END ==
PROVIDERS: PCP Family Medicine; Referring Provider Family Medicine; Visit Provider Family Medicine
DX: N39.0 Urinary tract infection, site not specified (principal)
CPT/HCPCS: 87077; 87086; 87088; 87186

== ENCOUNTER → 2021-01-31 10:05 | Outpatient (CLI) | payer MEDICARE, OTHER, SELFPAY ==
[2021-01-17 08:11] VITALS: BMI 28.9
[2021-01-31 12:46] LABS: Color, Urine Yellow (Yellow); Glucose, Dipstick Normal (Normal); Ketone-Dipstick Negative (Negative); Leukocyte Esterase-Dipstick Negative /ul (Negative); Nitrite-Dipstick Negative (Negative); Occult Blood-Urine Negative /ul (Negative); Protein-Dipstick 100 mg/dl (Negative); Specific Gravity, Urine 1.015 (1.002-1.030); Urine Bilirubin Dipstick Negative (Negative); Urine Clarity Clear (Clear); Urine Urobilinogen Normal (Normal)
[2021-01-31 12:48] LABS: Erythrocyte Sedimentation Rate 17 mm/hr (0-30)
[2021-01-31 12:49] LABS: Protein:Creat Ratio 688 mg/g CRE (0-200)
[2021-01-31 12:51] LABS: Absolute Lymphocyte Count 1.25 X10^3/uL (0.83-4.51); Absolute Neutrophil Count 5.6 X10^3/uL (2.0-7.7); Basophil# 0.07 X10^3/uL; Basophil% 0.8 % (0-1); Eosinophil# 0.99 X10^3/uL; Eosinophils% 11.4 % (0-5); Hemoglobin 8.4 g/dL (12.0-15.0); Lymphocyte # 1.25 X10^3/ul (0.83-4.51); Lymphocyte % 14.4 % (19-41); Mean Corp Hgb Conc 31.1 g/dL (32-36); Mean Corpuscular Hgb 28.7 pg (27.0-32.0); Mean Corpuscular Volume 92.2 fL (81-99); Mean Platelet Vol. 9.2 fl (6.2-12.0); Monocyte# 0.72 X10^3/uL; Monocyte% 8.3 % (0-10); NRBC Flagged by Analyzer 0 % (0-5); Neutrophil % 64.5 % (47-70); Platelet Count 432 K/mm3 (150-450); RBC Distribution Width CV 18.8 % (11.6-14.6); RBC Distribution Width SD 62.4 fl (35.1-43.9); Red Blood Count 2.93 M/mm3 (4.2-5.4); White Blood Count 8.7 K/mm3 (4.4-11.0)
[2021-01-31 12:57] LABS: ALB/GLOB Ratio 0.6 RATIO (0.9-2.4); AST(SGOT) 33 U/L (15-37); Alanine Aminotransfer ALT/SGPT 23 U/L (13-56); Albumin, Serum 3.4 g/dL (3.2-5.0); Alkaline Phosphatase 108 U/L (45-117); Anion Gap 5 (5-15); BUN 24 mg/dL (7-18); BUN/Creat Ratio 19.2 RATIO (10-20); CRP 3.16 mg/L (0.0-3.0); Calcium,Total 9.1 mg/dL (8.5-10.1); Chloride 101 mmol/L (98-107); Creatinine, Serum 1.25 mg/dL (0.55-1.02); EST Glomerular Filtration Rate 44 mL/min (>60); Est Glom Filt Rate - Afr Amer 53 mL/min (>60); Globulin 5.3 g/dL (2.2-4.2); Glucose 98 mg/dL (74-106); Potassium 4.4 mmol/L (3.5-5.1); Protein, Total 8.7 g/dL (6.4-8.2); Sodium Level 134 mmol/L (136-145)
[2021-02-02 16:08] LABS: Cytoplasmic Ab (C-ANCA) <1:20 titer (Neg:<1:20)
== END ==
PROVIDERS: PCP Family Medicine; Referring Provider Internal Medicine Rheumatology; Visit Provider Internal Medicine Rheumatology
DX: R76.8 Other specified abnormal immunological findings in serum (principal); R59.0 Localized enlarged lymph nodes; M19.041 Primary osteoarthritis, right hand; M21.41 Flat foot [pes planus] (acquired), right foot; I25.10 Atherosclerotic heart disease of native coronary artery without angina pectoris; E03.9 Hypothyroidism, unspecified; E78.5 Hyperlipidemia, unspecified; I35.2 Nonrheumatic aortic (valve) stenosis with insufficiency; I34.0 Nonrheumatic mitral (valve) insufficiency
CPT/HCPCS: 36415; 80053; 81002; 82570; 84156; 85025; 85652; 86140; 86256

== ENCOUNTER 2021-02-21 21:57 | Inpatient (IN) | payer MEDICARE, OTHER, SELFPAY ==
[2021-02-21 21:58] VITALS: BP 200/66; PULSE 85; RESP 18; TEMP 36.3; O2SAT 98; BMI 30.2
--- NOTE | 2021-02-21 22:12 | EKG12_ITS ---
Test Reason : CP Blood Pressure : / mmHG Vent. Rate : 084 BPM Atrial Rate : 084 BPM P-R Int : 148 ms QRS Dur : 084 ms QT Int : 370 ms P-R-T Axes : 070 039 005 degrees QTc Int : 437 ms Normal sinus rhythm Marked ST abnormality, possible inferior-lateral ischemia Abnormal ECG Confirmed by LEO WYNN, PORTIA ([id number]), biochemical development engineer JANETT MURPHY ([id number]) on 02/26/2021 12:50:08 PM Referred By: KOBI Confirmed By:PORTIA BAILEY MD
--- NOTE | 2021-02-21 22:17 | RAD_ITS ---
STUDY: X-RAY CHEST REASON FOR EXAM: Female, 85 years old. chest pain TECHNIQUE: Single AP portable view of the chest. COMPARISON: 04/11/2020 FINDINGS: Lungs are adequately inflated with moderate left effusion with left lower lobe compressive consolidation. Right lung is essentially clear. There is mild cardiac enlargement. Normal mediastinum and to. Normal visualized pulmonary arteries. Normal visualized aortic arch and descending thoracic aorta. Normal visualized thoracic spine. Normal visualized ribs, clavicles, and shoulders. There is no demonstrated abnormality of the visualized soft tissue structures of the upper abdomen. RAD/Chest 1 View (Portable) IMPRESSION: Development of left basilar compressive consolidation with moderate effusion Electronically Signed: Zeyad Tapia DO at 22:39 EDT Tel , Service support ,
[2021-02-21 22:18] LABS: Absolute Lymphocyte Count 0.91 X10^3/uL (0.83-4.51); Absolute Neutrophil Count 9.9 X10^3/uL (2.0-7.7); Basophil# 0.11 X10^3/uL; Basophil% 0.9 % (0-1); Eosinophil# 0.46 X10^3/uL; Eosinophils% 3.9 % (0-5); Hematocrit 19.8 % (37-47); Hemoglobin 6.4 g/dL (12.0-15.0); Lymphocyte # 0.91 X10^3/ul (0.83-4.51); Lymphocyte % 7.7 % (19-41); Mean Corp Hgb Conc 32.3 g/dL (32-36); Mean Corpuscular Volume 102.1 fL (81-99); Mean Platelet Vol. 9.4 fl (6.2-12.0); Monocyte# 0.39 X10^3/uL; Monocyte% 3.3 % (0-10); NRBC Flagged by Analyzer 0.3 % (0-5); Neutrophil # 9.86 X10^3/uL (2.7-7.7); POSITIVE MORPHOLOGY YES; Platelet Count 404 K/mm3 (150-450); RBC Distribution Width SD 85.1 fl (35.1-43.9); Red Blood Count 1.94 M/mm3 (4.2-5.4); White Blood Count 11.9 K/mm3 (4.4-11.0)
[2021-02-21] MEDS: Aspirin 81 MG TAB.CHEW 324 MG PO (22:31)
[2021-02-21 22:32] LABS: Anion Gap 4 (5-15); BUN 26 mg/dL (7-18); Calcium,Total 9.3 mg/dL (8.5-10.1); Chloride 100 mmol/L (98-107); Creatinine, Serum 1.13 mg/dL (0.55-1.02); EST Glomerular Filtration Rate 49 mL/min (>60); Est Glom Filt Rate - Afr Amer 59 mL/min (>60); Estimated Creatinine Clearance 28.46 ml/min; Glucose 190 mg/dL (74-106); Potassium 4.3 mmol/L (3.5-5.1); Sodium Level 134 mmol/L (136-145); Troponin-I HS 73 pg/mL (3.0-54.0)
[2021-02-21 22:33] VITALS: BP 146/49
--- NOTE | 2021-02-21 22:33 | EDS_ITS ---
HPI History of Present Illness Chief Complaint: Chest Pain Narrative Narrative: 85-year-old female presenting with chest pain which started about 6:30 PM this evening. She states she does have some pain in her left arm. She took nitroglycerin and this seemed to help her. She states that she had taken prednisone for the first time right before this occurred at about 6 PM. Patient has history of CAD and cardiac stents. Patient states that she previously had mediastinal lymph nodes which were biopsied a couple of months ago and she states all these came back negative for cancerous lesions. She is told that she likely has vasculitis of some sort and is started on prednisone today. Patient has not had a fever or cough. She wears oxygen at baseline without changes. He states he does not feel short of breath. [facility] Medical History Acute febrile illness Angina pectoris Anginal equivalent Aortic insufficiency Atherosclerotic heart disease of [place] coronary artery without angina pectoris BiPAP (biphasic positive airway pressure) dependence CAD (coronary artery disease) Cardiology follow-up encounter Carotid artery disease Chest pain Chronic cough Essential hypertension High cholesterol History of echocardiogram History of stress test Hyperlipidemia Hypertension Hypothyroidism Loss of appetite Mediastinal lymphadenopathy Non-smoker Nonrheumatic aortic (valve) insufficiency Nonrheumatic aortic (valve) stenosis Nonrheumatic mitral (valve) insufficiency On home oxygen therapy ABDIAS (obstructive sleep apnea) Shortness of breath on exertion Thyroid disease Valvular heart disease Wears dentures Wears glasses Home Medications ascorbic acid (vitamin C) 500 mg PO DAILY 01/16/18 [History Last Taken 05/26/19 12:00] folic acid 0.4 mg PO DAILY@0800 01/16/18 [History Last Taken 05/26/19 08:00] coenzyme Q10 100 mg PO DAILY 03/09/18 [History Last Taken 04/14/19 12:00] calcium citrate 600 mg PO TID 11/12/18 [History Last Taken 05/26/19 12:00] multivitamin with folic acid 1 tab PO DAILY 11/12/18 [History Last Taken 04/14/19 09:00] omega-3 fatty acids-fish oil 1 cap PO DAILY 11/12/18 [History Last Taken 04/14/19 17:00] nitroglycerin 0.4 mg sublingual tablet 0.4 mg SUBLINGUAL Q5-15M PRN 10 Days #25 tab 06/18/19 [Rx Last Taken 04/15/19 02:00] acetaminophen 650 mg PO Q6H PRN PRN tab 05/30/19 [Rx Last Taken Unknown] aspirin 81 mg PO DAILY@0800 #0 04/13/20 [Rx Last Taken 01/08/21] clopidogrel 75 mg PO DAILY #90 tab 04/13/20 [Rx Last Taken 01/07/21] levothyroxine 100 mcg PO DAILY 04/18/20 [History Last Taken 04/20/20] rivaroxaban 2.5 mg tablet 2.5 mg PO BID #60 tab 06/27/20 [Rx Last Taken 01/09/21] atorvastatin 40 mg tablet 40 mg PO DAILY #90 tab 07/24/20 [Rx Last Taken Unknown] potassium chloride 10 mEq tablet,extended release 10 meq PO DAILY #90 tab 07/24/20 [Rx Last Taken Unknown] metoprolol succinate 50 mg tablet,extended release 24 hr 50 mg PO DAILY #90 tab 10/20/20 [Rx Last Taken Unknown] Sodium Chloride 3% #3 ea 12/04/20 [Rx Last Taken Unknown] isosorbide mononitrate 30 mg tablet,extended release 24 hr 30 mg PO BID #180 tab 01/15/21 [Rx Last Taken Unknown] prednisone 30 mg PO DAILY 02/21/21 [History Last Taken Unknown] Allergy/AdvReac Type Severity Reaction Status Date / Time Iodinated Contrast Media Allergy Intermediate Rash Verified 02/21/21 22:02 [Iodinated Contrast- Oral and IV Dye] ramipril [From Altace] AdvReac Severe cough Verified 02/21/21 22:02 Family History Mother , Age 63 Myocardial infarction Father , Age 28 Colon cancer Other Heart disease Surgical History History of axillary surgery History of cardiac catheterization History of cholecystectomy History of percutaneous transluminal coronary angioplasty (04/16/19) Hx of colonoscopy Presence of stent in coronary artery (05/28/19) Social History Smoking Status: Never smoker second hand exposure: No alcohol intake: never substance use type: does not use caffeine: Yes Type: coffee Number of servings: 1 what type of physical activity do you participate in: none frequency: does not exercise ROS ROS ED Constitutional Constitutional ED: Denies chills or fever(s) Eyes Eyes: Denies blurry vision or change in vision ENT ENT ED: Denies rhinorrhea or sore throat Cardiovascular Cardiovascular: Reports chest pain; Denies palpitations or racing heartbeat Respiratory/Chest Respiratory/Chest: Denies cough or dyspnea Gastrointestinal Gastrointestinal: Denies abdominal pain, nausea or vomiting Genitourinary Genitourinary ED: Denies dysuria or hematuria Musculoskeletal Musculoskeletal: Denies arthralgias or myalgias Integumentary Denies abscess or rash Neurologic Neurologic: Denies headache(s) or paresthesias EXAM Physical Exam Const Vital Signs: 02/21/21 21:58 02/21/21 22:31 02/21/21 22:33 Temperature 97.4 F L Temperature Source Temporal Pulse Rate 85 Respiratory Rate 18 Blood Pressure 200/66 H 146/49 H Blood Pressure Mean 110 81 Pulse Ox 98 Oxygen Delivery Method Room Air Room Air Oxygen Flow Rate (L/min) 02/21/21 23:35 Temperature 97.6 F L Temperature Source Temporal Pulse Rate 77 Respiratory Rate 18 Blood Pressure 157/64 H Blood Pressure Mean 95 Pulse Ox 100 Oxygen Delivery Method Room Air Oxygen Flow Rate (L/min) 2 Positive well nourished General Appearance ED: NAD HEENT normocephalic and atraumatic Eyes PERRL and EOMs intact bilaterally Resp normal respiratory effort Effort and Inspection: respiratory distress Cardio regular rate and regular rhythm Neuro oriented x3 Sensorium / Orientation: awake and alert Psych mental status grossly normal Skin no rashes or lesions noted and no wounds Heart Score History: Slightly/Non-Suspicious Age: >/= 65 years Risk Factors: >/= 3 Risk Factors or History of CAD Troponin: >1 - <3 Normal Limit Score: 5 MDM MDM MDM Narrative Medical decision making narrative: Patient presenting with chest pain which has been ongoing for about 3 hours prior to arrival. It is currently gone after taking nitroglycerin at home. She is given aspirin. EKG on my interpretation shows a sinus rhythm at [address] depressions in leads II, 3, V3 through V6 without reciprocal elevations. Review of her previous EKG showed similar findings although this might be a little more pronounced on the current EKG. Chest x-ray on my interpretation shows a possible left basilar consolidation with effusion. The radiologist read this as compressive consolidation with effusion. This was discussed with the hospitalist will hold antibiotics for now. Patient is not having a fever, cough, worsening shortness of breath. Her blood work does show a slight leukocytosis at 11.9 however. Patient's renal function and electrolytes are normal. Hemoglobin is noted to be 6.4, platelets 404. The last hemoglobin on record was just under a month ago at 8.8. Hemoccult will be obtained. Patient will be typed and crossed for 2 units. This was discussed with the hospitalist on admission. Impression: 1. Anemia 2. Chest pain 3. Elevated troponin Lab Data Attestation: I reviewed the patient's lab results. Labs: Laboratory Results - last 24 hr 02/21/21 02/21/21 22:03 22:03 WBC 11.9 H RBC 1.94 L Hgb 6.4 L Hct 19.8 L MCV 102.1 H MCH 33.0 H MCHC 32.3 RDW Std Deviation 85.1 H RDW Coeff of Martha 25.0 H Plt Count 404 MPV 9.4 Immature Gran % (Auto) 1.200 H Neut % (Auto) 83.0 H Lymph % (Auto) 7.7 L [place] % (Auto) 3.3 Eos % (Auto) 3.9 Baso % (Auto) 0.9 Absolute Neuts (auto) 9.9 H Absolute Lymphs (auto) 0.91 Nucleated RBC % 0.3 Differential Comment SCANNED Diff Path Review May foll Platelet Estimate ADEQUATE Polychromasia 1+ Anisocytosis 4+ Macrocytosis 1+ Sodium 134 L Potassium 4.3 Chloride 100 Carbon Dioxide 30.0 Anion Gap 4 L BUN 26 H Creatinine 1.13 H Estim Creat Clear Calc 28.46 Est GFR (MDRD) Af Amer 59 L Est GFR (MDRD) Non-Af 49 L BUN/Creatinine Ratio 23.0 H Glucose 190 H Calcium 9.3 Troponin I High Sens 73 H Radiography Diagnostic Testing: Radiology Impression Chest X-Ray 02/21/21 22:17 IMPRESSION: Development of left basilar compressive consolidation with moderate effusion Electronically Signed: Zeyad Tapia DO at 22:39 EDT Tel , Service support , Discharge Plan Disposition Disposition: Acute Care Hospital [facility] Discharge Date/Time: 02/22/21 00:27
[2021-02-21 22:35] LABS: Differential Indicated SCAN CRITERIA MET
[2021-02-21 23:08] LABS: Anisocytosis 4+; Differential Comment SCANNED; Macrocytosis 1+; Platelet Estimate ADEQUATE (ADEQ); Polychromasia 1+
[2021-02-21 23:35] VITALS: BP 157/64; PULSE 77; RESP 18; TEMP 36.4; O2SAT 100
--- NOTE | 2021-02-21 23:42 | PCM.HP.STD ---
Documented by User: JOSE Deleon 02/21/21 23:55 HPI - General General Date of Admission: 02/21/21 Date of Service: 02/21/21 Chief Complaint: Chest pain HPI Narrative PRECIOUS LEIGH, is a 85 F who presents with complaints of chest pain. Patient reports that chest pain started approximately 6:30 PM this evening and had concurrent left arm pain. Patient states that she took a dose of nitroglycerin at home which was effective in reducing her pain. 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 Patient also has a medical history of CAD and cardiac stent placement x8. Patient reports that she currently wears oxygen at home at 4 L per nasal cannula. Patient denies fever, chills, cough, nausea, vomiting, diarrhea, constipation. [facility] Medical History Acute febrile illness Angina pectoris Anginal equivalent Aortic insufficiency Atherosclerotic heart disease of [place] coronary artery without angina pectoris BiPAP (biphasic positive airway pressure) dependence CAD (coronary artery disease) Cardiology follow-up encounter Carotid artery disease Chest pain Chronic cough Essential hypertension High cholesterol History of echocardiogram History of stress test Hyperlipidemia Hypertension Hypothyroidism Loss of appetite Mediastinal lymphadenopathy Non-smoker Nonrheumatic aortic (valve) insufficiency Nonrheumatic aortic (valve) stenosis Nonrheumatic mitral (valve) insufficiency On home oxygen therapy ABDIAS (obstructive sleep apnea) Shortness of breath on exertion Thyroid disease Valvular heart disease Wears dentures Wears glasses Home Medications ascorbic acid (vitamin C) 500 mg PO DAILY 01/16/18 [History Last Taken 05/26/19 12:00] folic acid 0.4 mg PO DAILY@0800 01/16/18 [History Last Taken 05/26/19 08:00] coenzyme Q10 100 mg PO DAILY 03/09/18 [History Last Taken 04/14/19 12:00] calcium citrate 600 mg PO TID 11/12/18 [History Last Taken 05/26/19 12:00] multivitamin with folic acid 1 tab PO DAILY 11/12/18 [History Last Taken 04/14/19 09:00] omega-3 fatty acids-fish oil 1 cap PO DAILY 11/12/18 [History Last Taken 04/14/19 17:00] nitroglycerin 0.4 mg sublingual tablet 0.4 mg SUBLINGUAL Q5-15M PRN 10 Days #25 tab 12/01/18 [Rx Last Taken 04/15/19 02:00] acetaminophen 650 mg PO Q6H PRN PRN tab 05/30/19 [Rx Last Taken Unknown] aspirin 81 mg PO DAILY@0800 #0 04/13/20 [Rx Last Taken 01/08/21] clopidogrel 75 mg PO DAILY #90 tab 04/13/20 [Rx Last Taken 01/07/21] levothyroxine 100 mcg PO DAILY 04/18/20 [History Last Taken 04/20/20] rivaroxaban 2.5 mg tablet 2.5 mg PO BID #60 tab 06/27/20 [Rx Last Taken 01/09/21] atorvastatin 40 mg tablet 40 mg PO DAILY #90 tab 07/24/20 [Rx Last Taken Unknown] potassium chloride 10 mEq tablet,extended release 10 meq PO DAILY #90 tab 07/24/20 [Rx Last Taken Unknown] metoprolol succinate 50 mg tablet,extended release 24 hr 50 mg PO DAILY #90 tab 10/20/20 [Rx Last Taken Unknown] Sodium Chloride 3% #3 ea 12/04/20 [Rx Last Taken Unknown] isosorbide mononitrate 30 mg tablet,extended release 24 hr 30 mg PO BID #180 tab 01/15/21 [Rx Last Taken Unknown] prednisone 30 mg PO DAILY 02/21/21 [History Last Taken Unknown] Allergy/AdvReac Type Severity Reaction Status Date / Time Iodinated Contrast Media Allergy Intermediate Rash Verified 02/21/21 22:02 [Iodinated Contrast- Oral and IV Dye] ramipril [From Altace] AdvReac Severe cough Verified 02/21/21 22:02 Family History Mother , Age 63 Myocardial infarction Father , Age 28 Colon cancer Other Heart disease Surgical History History of axillary surgery History of cardiac catheterization History of cholecystectomy History of percutaneous transluminal coronary angioplasty (04/16/19) Hx of colonoscopy Presence of stent in coronary artery (05/28/19) Social History Smoking Status: Never smoker second hand exposure: No alcohol intake: never substance use type: does not use caffeine: Yes Type: coffee Number of servings: 1 what type of physical activity do you participate in: none frequency: does not exercise ROS Constitutional Constitutional: Denies anorexia, chills, fatigue, fever(s), malaise or weakness Cardiovascular Cardiovascular: Reports chest pain, fatigue and radiating jaw, neck or arm pain; Denies edema, palpitations or syncope Respiratory/Chest Respiratory/Chest: Denies cough, shortness of breath at rest, shortness of breath with exertion or wheezing Gastrointestinal Gastrointestinal: Denies abdominal pain, constipation, diarrhea, nausea or vomiting Genitourinary Genitourinary: Denies dysuria Musculoskeletal Musculoskeletal: Denies back pain, extremity pain, joint pain or joint stiffness Integumentary Integumentary: Denies dry skin Neurologic Neurologic: Denies abnormal gait, abnormal speech, confusion, dizziness or focal weakness Psychiatric Psychiatric: Denies anxiety or depression Endocrine Endocrinology: Denies change in body appearance Hematologic/Lymphatic Hematologic/Lymphatic: Denies anemia, easy bleeding or easy bruising Vital Signs Vital Signs Vital Signs: 02/21/21 21:58 02/21/21 22:31 02/21/21 22:33 Temperature 97.4 F L Temperature Source Temporal Pulse Rate 85 Respiratory Rate 18 Blood Pressure 200/66 H 146/49 H Blood Pressure Mean 110 81 Pulse Ox 98 Oxygen Delivery Method Room Air Room Air Weight Weight: 160 lb 0.889 oz Body Mass Index (BMI) 30.2 Physical Exam Const alert, oriented x3 and no apparent distress General Appearance: cooperative HEENT normocephalic and head/scalp atraumatic Eyes conjunctivae normal and no scleral icterus Neck supple and no JVD General: trachea midline Resp normal respiratory effort, normal air movement and clear to auscultation bilaterally Cardio regular rate, regular rhythm, S1 normal heart sound, S2 normal heart sound and peripheral pulses 2+ throughout GI normal to inspection, nondistended, normoactive bowel sounds, soft to palpation and non-tender Extremity normal capillary refill and no clubbing, cyanosis or edema General Extremity: no tenderness to palpation of joints or extremities Skin General Skin Exam: no breakdown and turgor normal Lesions: no lesions Rashes: no rashes Neuro no focal motor deficits and no sensory deficits noted Speech: speech normal Motor Exam: Negative for general weakness Psych thought process normal, cooperative and affect normal Appearance: appropriate Results Lab / Micro Data Result Diagrams: 02/21/21 22:03 02/21/21 22:03 Labs: Laboratory Results - last 24 hr 02/21/21 22:03: WBC 11.9 H, RBC 1.94 L, Hgb 6.4 L, Hct 19.8 L, MCV 102.1 H, MCH 33.0 H, MCHC 32.3, RDW Std Deviation 85.1 H, RDW Coeff of Martha 25.0 H, Plt Count 404, MPV 9.4, Immature Gran % (Auto) 1.200 H, Neut % (Auto) 83.0 H, Lymph % (Auto) 7.7 L, [place] % (Auto) 3.3, Eos % (Auto) 3.9, Baso % (Auto) 0.9, Absolute Neuts (auto) 9.9 H, Absolute Lymphs (auto) 0.91, Nucleated RBC % 0.3, Differential Comment SCANNED, Diff Path Review May foll, Platelet Estimate ADEQUATE, Polychromasia 1+, Anisocytosis 4+, Macrocytosis 1+ 02/21/21 22:03: Sodium 134 L, Potassium 4.3, Chloride 100, Carbon Dioxide 30.0, Anion Gap 4 L, BUN 26 H, Creatinine 1.13 H, Estim Creat Clear Calc 28.46, Est GFR (MDRD) Af Amer 59 L, Est GFR (MDRD) Non-Af 49 L, BUN/Creatinine Ratio 23.0 H, Glucose 190 H, Calcium 9.3, Troponin I High Sens 73 H Micro: Microbiology 02/21/21 22:52 Nasal Secretion SARS-CoV-2 Antigen (Rapid) - Final Radiology Impression Chest X-Ray 02/21/21 22:17 IMPRESSION: Development of left basilar compressive consolidation with moderate effusion Electronically Signed: Zeyad Tapia DO at 22:39 EDT Tel , Service support , Assessment & Plan Assessment/Plan (1) Chest pain: QUALIFIERS: Chest pain type: unspecified Qualified Code(s): R07.9 - Chest pain, unspecified (2) Elevated troponin: PLAN: 1. Chest pain -Admit to PCU for cardiac monitoring -Consult cardiology -Trend cardiac enzymes -Cardiac diet ordered -CBC and BMP ordered daily -As needed nitro sublingual ordered -Continue Plavix and aspirin per home regimen, hold Eliquis. 2. Elevated troponin -See #1 3. Vasculitis -Patient started on prednisone 30 mg p.o. 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 Hypertension -Continue pulmonary medication regimen including isosorbide, metoprolol. We will continue all other home medication for patient's chronic diseases including hypothyroidism, hyperlipidemia. DVT prophylaxis-not indicated patient chronically anticoagulated. This patient was seen by JOSE Deleon under the supervision of Dr. Verduzco Documented by User: Dr. Ritchie Verduzco MD 02/21/21 23:57 HPI - General General Date of Admission: 02/21/21 [facility] Medical History Acute febrile illness Angina pectoris Anginal equivalent Aortic insufficiency Atherosclerotic heart disease of [place] coronary artery without angina pectoris BiPAP (biphasic positive airway pressure) dependence CAD (coronary artery disease) Cardiology follow-up encounter Carotid artery disease Chest pain Chronic cough Essential hypertension High cholesterol History of echocardiogram History of stress test Hyperlipidemia Hypertension Hypothyroidism Loss of appetite Mediastinal lymphadenopathy Non-smoker Nonrheumatic aortic (valve) insufficiency Nonrheumatic aortic (valve) stenosis Nonrheumatic mitral (valve) insufficiency On home oxygen therapy ABDIAS (obstructive sleep apnea) Shortness of breath on exertion Thyroid disease Valvular heart disease Wears dentures Wears glasses Home Medications ascorbic acid (vitamin C) 500 mg PO DAILY 01/16/18 [History Last Taken 05/26/19 12:00] folic acid 0.4 mg PO DAILY@0800 01/16/18 [History Last Taken 05/26/19 08:00] coenzyme Q10 100 mg PO DAILY 03/09/18 [History Last Taken 04/14/19 12:00] calcium citrate 600 mg PO TID 11/12/18 [History Last Taken 05/26/19 12:00] multivitamin with folic acid 1 tab PO DAILY 11/12/18 [History Last Taken 04/14/19 09:00] omega-3 fatty acids-fish oil 1 cap PO DAILY 11/12/18 [History Last Taken 04/14/19 17:00] nitroglycerin 0.4 mg sublingual tablet 0.4 mg SUBLINGUAL Q5-15M PRN 10 Days #25 tab 12/01/18 [Rx Last Taken 04/15/19 02:00] acetaminophen 650 mg PO Q6H PRN PRN tab 05/30/19 [Rx Last Taken Unknown] aspirin 81 mg PO DAILY@0800 #0 04/13/20 [Rx Last Taken 01/08/21] clopidogrel 75 mg PO DAILY #90 tab 04/13/20 [Rx Last Taken 01/07/21] levothyroxine 100 mcg PO DAILY 04/18/20 [History Last Taken 04/20/20] rivaroxaban 2.5 mg tablet 2.5 mg PO BID #60 tab 06/27/20 [Rx Last Taken 01/09/21] atorvastatin 40 mg tablet 40 mg PO DAILY #90 tab 07/24/20 [Rx Last Taken Unknown] potassium chloride 10 mEq tablet,extended release 10 meq PO DAILY #90 tab 07/24/20 [Rx Last Taken Unknown] metoprolol succinate 50 mg tablet,extended release 24 hr 50 mg PO DAILY #90 tab 10/20/20 [Rx Last Taken Unknown] Sodium Chloride 3% #3 ea 12/04/20 [Rx Last Taken Unknown] isosorbide mononitrate 30 mg tablet,extended release 24 hr 30 mg PO BID #180 tab 01/15/21 [Rx Last Taken Unknown] prednisone 30 mg PO DAILY 02/21/21 [History Last Taken Unknown] Allergy/AdvReac Type Severity Reaction Status Date / Time Iodinated Contrast Media Allergy Intermediate Rash Verified 02/21/21 22:02 [Iodinated Contrast- Oral and IV Dye] ramipril [From Altace] AdvReac Severe cough Verified 02/21/21 22:02 Family History Mother , Age 63 Myocardial infarction Father , Age 28 Colon cancer Other Heart disease Surgical History History of axillary surgery History of cardiac catheterization History of cholecystectomy History of percutaneous transluminal coronary angioplasty (04/16/19) Hx of colonoscopy Presence of stent in coronary artery (05/28/19) Social History Smoking Status: Never smoker second hand exposure: No alcohol intake: never substance use type: does not use caffeine: Yes Type: coffee Number of servings: 1 what type of physical activity do you participate in: none frequency: does not exercise Results Lab / Micro Data Result Diagrams: 02/21/21 22:03 02/21/21 22:03 Charges/Coding Addendum Addendum: Dr. Verduzco: I personally reviewed the chart and examined the patient, and agree with the above findings. 85-year-old female with previous coronary artery disease and 8 stents presents to the hospital with chest pain. This started after she took her first dose of steroids which were prescribed for possible vasculitis. 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 In the meantime will obtain serial troponins as her initial was 75 and consult cardiology given her extensive previous cardiac history for possible intervention versus medical management. In the meantime we will plan to continue with all of her home medications including her new steroids. Will hold her Xarelto which is only dose to 2.5 twice daily secondary to the possibility of a heart cath. Visit Charges OBSV E&M: [id number] Initial observation care L3
[2021-02-21 23:43] VITALS: PULSE 97
[2021-02-22] VITALS (14 sets, daily range): BP systolic 132–193; BP diastolic 50–69; PULSE 61–84; RESP 14–18; TEMP 36.5–37; O2SAT 96–99; BMI 28.6
--- NOTE | 2021-02-22 00:32 | EKG12_ITS ---
Test Reason : CP ADMIT Blood Pressure : / mmHG Vent. Rate : 070 BPM Atrial Rate : 070 BPM P-R Int : 152 ms QRS Dur : 100 ms QT Int : 412 ms P-R-T Axes : 062 031 -02 degrees QTc Int : 444 ms Normal sinus rhythm Nonspecific ST abnormality Abnormal ECG Confirmed by LEO WYNN, PORTIA ([id number]), digital editor JANETT MURPHY ([id number]) on 02/26/2021 1:09:34 PM Referred By: FAIZA Confirmed By:PORTIA BAILEY MD
[2021-02-22 01:45] LABS: Troponin-I HS 193 pg/mL (3.0-54.0)
[2021-02-22 03:57] LABS: Absolute Lymphocyte Count 0.87 X10^3/uL (0.83-4.51); Absolute Neutrophil Count 8.6 X10^3/uL (2.0-7.7); Basophil# 0.05 X10^3/uL; Basophil% 0.5 % (0-1); Eosinophil# 0.05 X10^3/uL; Eosinophils% 0.5 % (0-5); Hematocrit 17.5 % (37-47); Lymphocyte # 0.87 X10^3/ul (0.83-4.51); Lymphocyte % 8.7 % (19-41); Mean Corpuscular Hgb 32.6 pg (27.0-32.0); Mean Corpuscular Volume 101.7 fL (81-99); Mean Platelet Vol. 9.2 fl (6.2-12.0); NRBC Flagged by Analyzer 0.2 % (0-5); Neutrophil # 8.64 X10^3/uL (2.7-7.7); POSITIVE COUNT YES; POSITIVE MORPHOLOGY YES; Platelet Count 360 K/mm3 (150-450); RBC Distribution Width CV 23.9 % (11.6-14.6); RBC Distribution Width SD 82.5 fl (35.1-43.9); Red Blood Count 1.72 M/mm3 (4.2-5.4)
[2021-02-22 04:04] LABS: Differential Indicated SCAN CRITERIA MET
[2021-02-22 04:06] LABS: Hemoglobin 5.6 g/dL (12.0-15.0)
[2021-02-22 04:18] LABS: Anion Gap 4 (5-15); BUN 26 mg/dL (7-18); BUN/Creat Ratio 25.5 RATIO (10-20); Calcium,Total 8.9 mg/dL (8.5-10.1); Chloride 102 mmol/L (98-107); Creatinine, Serum 1.02 mg/dL (0.55-1.02); EST Glomerular Filtration Rate 55 mL/min (>60); Est Glom Filt Rate - Afr Amer 67 mL/min (>60); Estimated Creatinine Clearance 31.53 ml/min; Glucose 157 mg/dL (74-106); Potassium 4.4 mmol/L (3.5-5.1); Sodium Level 135 mmol/L (136-145); Troponin-I HS 608 pg/mL (3.0-54.0)
[2021-02-22 04:27] LABS: Anisocytosis 1+; Differential Comment SCANNED; Macrocytosis 1+; Polychromasia RARE
--- NOTE | 2021-02-22 05:12 | NURSING ---
Pandemic documentation
[2021-02-22] MEDS: Levothyroxine 100 MCG Tablet PO (05:56)
--- NOTE | 2021-02-22 06:58 | PN_ITS ---
Progress Note Notified by blood bank that she is reacting with multiple antibodies and blood samples so we do not have any blood that we can actually transfuse her at the moment and the need to send a blood sample out to the [place] which can at minimum take 8 hours however they have had is also take 24 hours to get blood from them. Given the fact that she is continued to drop in her hemoglobin to 5.6 and her troponin has been rising, I have attempted to transfer the patient however there are no beds in [facility] at the moment I did give her informa tion to [facility] awaiting to hear back. She is hemodynamically stable at the moment, still waiting for Hemoccult to come back. Will obtain LFTs as well as an LDH and a Juliann for possible hemolysis secondary to her vasculitis. In the meantime we will start her on Protonix and hold her aspirin and her Plavix.
--- NOTE | 2021-02-22 07:39 | PCM.HOSP.N ---
Hospitalist Note I got signout from the my colleague, nika hospitalist that patient was admitted with chest pain in the ER. She has history of cardiac stents 8 times and also P ANCA associated vasculitis. Follow-up in [facility] vasculitis clinic. Patient admitted with severe anemia hemoglobin 5.6, high troponin, chest x-ray showing left moderate pleural effusion with underlying compressive atelectasis. Currently patient does not have chest pain. Blood pressure and heart rate in acceptable limit. He tried to transfer to different [facility] and patient is on the list of , [facility] [place]. [facility]oe [employer] is consulted. Discussed with the charge nurse in cullet crus[facility] and washer. 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 Please see progress note for further detail
[2021-02-22 08:30] LABS: AST(SGOT) 54 U/L (15-37); Alanine Aminotransfer ALT/SGPT 18 U/L (13-56); Albumin, Serum 2.9 g/dL (3.2-5.0); Alkaline Phosphatase 83 U/L (45-117); Bilirubin, Direct 0.32 mg/dL (0.00-0.30); Globulin 5.3 g/dL (2.2-4.2); LDH 305 U/L (84-246); Protein, Total 8.2 g/dL (6.4-8.2)
--- NOTE | 2021-02-22 09:38 | DS.PCM_ITS ---
Providers Date of Admission: 02/22/21 Primary Care Physician: Dr. Boyd Casiano MD Consultations 02/22/21 00:21 Consult: Cardiology Routine Consulting Provider: Luis Alberto Madera Reason for Consult: chest pain EMERGENT Consult: No Notified: Yes Date Notified: 02/22/21 Time Notified: 07:39 Method of Notification: Text 02/22/21 07:26 Consult: Cardiology Routine Consulting Provider: Luis Alberto Madera Reason for Consult: NSTEMI with severe anemia EMERGENT Consult: No Notified: Yes Date Notified: 02/22/21 Time Notified: 07:26 Method of Notification: Text Reason For Visit: ANGINA Diagnosis Discharge Diagnosis (1) Chest pain: Status: Acute Code(s): R07.9 - Chest pain, unspecified Qualifiers: Chest pain type: unspecified Qualified Code(s): R07.9 - Chest pain, unspecified (2) Elevated troponin: Status: Acute Code(s): R77.8 - Other specified abnormalities of plasma proteins Medications at Discharge Home Medications ascorbic acid (vitamin C) 500 mg PO DAILY 01/16/18 folic acid 0.4 mg PO DAILY@0800 01/16/18 coenzyme Q10 100 mg PO DAILY 03/09/18 calcium citrate See Rx Instructions .ROUTE .COMPLEX 11/12/18 omega-3 fatty acids-fish oil 1 cap PO DAILY 11/12/18 nitroglycerin 0.4 mg sublingual tablet 0.4 mg SUBLINGUAL Q5-15M PRN 10 Days #25 tab 12/01/18 aspirin 81 mg PO DAILY@0800 #0 04/13/20 clopidogrel 75 mg PO DAILY #90 tab 04/13/20 levothyroxine 100 mcg PO DAILY 04/18/20 rivaroxaban 2.5 mg tablet 2.5 mg PO BID #60 tab 06/27/20 atorvastatin 40 mg tablet 40 mg PO DAILY #90 tab 07/24/20 potassium chloride 10 mEq tablet,extended release 10 meq PO DAILY #90 tab 07/24/20 metoprolol succinate 50 mg tablet,extended release 24 hr 50 mg PO DAILY #90 tab 10/20/20 isosorbide mononitrate 30 mg tablet,extended release 24 hr 30 mg PO BID #180 tab 01/15/21 prednisone 10 mg PO DAILY 02/21/21 multivitamin 1 tab PO DAILY 02/22/21 Weight / BMI Weight Weight: 151 lb 7.321 oz Body Mass Index (BMI) 28.6 ABG / Lab / Microbiology Data Result Diagrams: 02/22/21 03:46 02/22/21 03:46 Laboratory: Laboratory Results - last 24 hr 02/21/21 22:03: WBC 11.9 H, RBC 1.94 L, Hgb 6.4 L, Hct 19.8 L, MCV 102.1 H, MCH 33.0 H, MCHC 32.3, RDW Std Deviation 85.1 H, RDW Coeff of Martha 25.0 H, Plt Count 404, MPV 9.4, Immature Gran % (Auto) 1.200 H, Neut % (Auto) 83.0 H, Lymph % (Auto) 7.7 L, [place]bers[place] % (Auto) 3.3, Eos % (Auto) 3.9, Baso % (Auto) 0.9, Absolute Neuts (auto) 9.9 H, Absolute Lymphs (auto) 0.91, Nucleated RBC % 0.3, Differential Comment SCANNED, Diff Path Review Elsa youngblood, Platelet Estimate SHANNAN QUATE, Polychromasia 1+, Anisocytosis 4+, Macrocytosis 1+ 02/21/21 22:03: Sodium 134 L, Potassium 4.3, Chloride 100, Carbon Dioxide 30.0, Anion Gap 4 L, BUN 26 H, Creatinine 1.13 H, Estim Creat Clear Calc 28.46, Est GFR (MDRD) Af Amer 59 L, Est GFR (MDRD) Non-Af 49 L, BUN/Creatinine Ratio 23.0 H , Glucose 190 H, Calcium 9.3, Troponin I High Sens 73 H 02/22/21 01:10: Troponin I High Sens 193 H* 02/22/21 01:10: Blood Type A POSITIVE, Antibody Screen POSITIVE H, Antibody Identification Cancelled, Crossmatch See Detail 02/22/21 01:10: Antibody Screen POSITIVE 02/22/21 01:10: Antibody ID (Elution) Cancelled, Direct Antiglob Test NEG w/COMPLEMENT 02/22/21 03:46: WBC 10.0, RBC 1.72 L, Hgb 5.6 L*, Hct 17.5 L, MCV 101.7 H, MCH 32.6 H, MCHC 32.0, RDW Std Deviation 82.5 H, RDW Coeff of Martha 23.9 H, Plt Count 360, MPV 9.2, Immature Gran % (Auto) 1.300 H, Neut % (Auto) 86.0 H, Lymph % (Auto) 8.7 L, [place] % (Auto) 3.0, Eos % (Auto) 0.5, Baso % (Auto) 0.5, Absolute Neuts (auto) 8.6 H, Absolute Lymphs (auto) 0.87, Nucleated RBC % 0.2, Differential Comment SCANNED, Diff Path Review May foll, Polychromasia RARE, Anisocytosis 1+, Macrocytosis 1+ 02/22/21 03:46: Sodium 135 L, Potassium 4.4, Chloride 102, Carbon Dioxide 29.0, Anion Gap 4 L, BUN 26 H, Creatinine 1.02, Estim Creat Clear Calc 31.53, Est GFR (MDRD) Af Amer 67, Est GFR (MDRD) Non-Af 55 L, BUN/Creatinine Ratio 25.5 H, Glucose 157 H, Calcium 8.9, Troponin I High Sens 608 H* 02/22/21 03:46: Total Bilirubin 1.80 H, Direct Bilirubin 0.32 H, AST 54 H, ALT 18, Alkaline Phosphatase 83, Lactate Dehydrogenase 305 H, Total Protein 8.2, Albumin 2.9 L, Globulin 5.3 H Microbiology: Microbiology 02/21/21 22:52 Nasal Secretion SARS-CoV-2 Antigen (Rapid) - Final Radiography Diagnostic Testing: Radiology Impression Chest X-Ray 02/21/21 22:17 IMPRESSION: Development of left basilar compressive consolidation with moderate effusion Electronically Signed: Zeyad Tapia DO at 22:39 EDT Tel , Service support , Discharge Plan Admission Admit Date/Time: 02/22/21 08:35 Attending Provider: Jcarlos Bob Primary Care Provider: Boyd Casiano Consulting Providers: Luis Alberto Madera ; Aime Jin ; Jono Robert ; Rafael Rojas ; Jerome Sousa ; Joe Ji ; Kedar Osorio ; Morris Adair ; Kianna Cuellar [employer] Discharge Orders/Prescriptions Prescriptions: No Action nitroglycerin 0.4 mg tablet, sublingual 0.4 mg SUBLINGUAL Q5-15M PRN (Reason: chest pain) 10 Days Qty: 25 RF: 3 folic acid 0.4 MG tablet 0.4 mg PO DAILY@0800 RF: 0 ascorbic acid (vitamin C) 500 MG capsule 500 mg PO DAILY RF: 0 coenzyme Q10 100 MG capsule 100 mg PO DAILY RF: 0 calcium citrate 200 MG tablet See Rx Instructions .ROUTE .COMPLEX RF: 0 omega-3 fatty acids-fish oil 1 EACH capsule 1 cap PO DAILY RF: 0 clopidogrel 75 mg tablet 75 mg PO DAILY Qty: 90 RF: 3 aspirin 81 MG tablet 81 mg PO DAILY@0800 Qty: 0 RF: 0 levothyroxine 100 MCG tablet 100 mcg PO DAILY RF: 0 prednisone 20 mg Tablet 10 mg PO DAILY RF: 0 multivitamin Tablet 1 tab PO DAILY RF: 0 rivaroxaban 2.5 mg tablet 2.5 mg PO BID Qty: 60 RF: 11 atorvastatin 40 mg tablet 40 mg PO DAILY Qty: 90 RF: 3 potassium chloride 10 mEq tablet extended release 10 meq PO DAILY Qty: 90 RF: 3 metoprolol succinate 50 mg tablet extended release 24 hr 50 mg PO DAILY Qty: 90 RF: 3 isosorbide mononitrate 30 mg tablet extended release 24 hr 30 mg PO BID Qty: 180 RF: 3 Disposition Discharge Orders: Discharge Patient (Routine); Ordered 02/22/21 Ordered By: Dr. Jcarlos Bob
--- NOTE | 2021-02-22 09:38 | PCM.CONS.C ---
Assessment & Plan Assessment/Plan (1) Non-ST elevation (NSTEMI) myocardial infarction: PLAN: The patient has findings compatible with a non-ST segment elevation SC. This might be a type II event brought out by supply demand mismatch brought out by the patient's noncardiovascular conditions including her marked anemia superimposed upon her underlying cardiovascular findings. At the present time she appears to be stable at rest. She will continue to be monitored. Her medications will be adjusted accordingly based upon her cardiovascular and noncardiovascular conditions. From a therapeutic standpoint an attempt is being made to crossmatch the patient for PRBC transfusion which may benefit her by increasing her oxygen carrying capacity. She does not appear to be an ideal candidate at this time for further local cardiovascular evaluation and care such as diagnostic cardiac catheterization based upon her known cardiovascular history and recommendations following her last cardiovascular intervention that if she would have recurrent/progressive disease she would need to be considered for tertiary care center evaluation for possible CABG. (2) Atherosclerotic heart disease of [place] coronary artery without angina pectoris: QUALIFIERS: [place] vs. transplanted heart: [place] heart Qualified Code(s): I25.10 - Atherosclerotic heart disease of [place] coronary artery without angina pectoris PLAN: She does have an extensive cardiovascular history as noted. Again at the moment she will continue medical management as she is able. Hopefully PRBC transfusion will be available to her which may benefit her cardiovascular status. Again if she does require further invasive cardiovascular evaluation it is prudent to consider having this done at a tertiary care center based upon her complex condition and noting from the past that she was not deemed a candidate for further PCI at this institution and will need to be considered for a tertiary care center evaluation for CABG. (3) History of percutaneous transluminal coronary angioplasty: PLAN: She does have an extensive history of PCI as noted above. Again it is unclear at this time whether her acute condition is brought out by a type II event secondary to her marked anemia, etc. versus a type I event. At the present time she will continue be monitored and treated medically. Hopefully she will receive PRBCs which would benefit her cardiovascular status. Again she needs to be considered for transfer to a tertiary care center for further advanced cardiovascular evaluation and care. (4) Valvular heart disease: PLAN: She will be followed by history, exam, and echocardiogram as deemed appropriate. (5) Hyperlipidemia: QUALIFIERS: Hyperlipidemia type: unspecified Qualified Code(s): E78.5 - Hyperlipidemia, unspecified PLAN: She will continue medical therapy as she is able. (6) Essential hypertension: PLAN: Her antihypertensive medicines have been decreased or discontinued secondary to her lower blood pressures which may be a result of her anemia. Her medications can be adjusted accordingly. (7) Anemia: PLAN: She is being evaluated for PRBC transfusion once appropriate crossmatch is made. Addt'l Comments The patient's case was discussed with the patient and Dr. Bob. This note was generated using a voice recognition system and there may be incorrect words, spelling or punctuation that were not noted when reviewing the office note prior to saving. HPI Consult Data Date of Consult: 02/22/21 HPI Narrative HPI Narrative: PRECIOUS LEIGH, is a 85 year old white female who presents for cardiovascular consultation based upon recurrent chest discomfort/dyspnea on exertion and abnormal cardiac enzymes superimposed upon a history of underlying CAD (PCI to the LAD-2003, PCI to the RCA-January 2018, PCI//LEANDER to the mid LCx-February 2018, PCI/LEANDER to the mid RCA-July 2018, PTCA to in-stent restenosis of the RCA-April 2019, PTCA/LEANDER to the mid RCA for in-stent restenosis-May 2019), aortic valve insufficiency, hyperlipidemia, hypertension, COPD/BiPAP therapy, who appears to been diagnosed with an underlying vasculitis and anemia. The patient states that recently she has been having progressive exertional centralized chest aching sensation as well as shortness of breath/dyspnea. She has noted her blood pressure has been lower. Her PCP has tapered down and/or stopped her medications that would bring her blood pressure even lower. She states that based upon concerns of an underlying vasculitis she was evaluated by rheumatology. She noted there was no initial medical therapy. However, she states her PCP elected to start medical therapy with corticosteroids with prednisone yesterday. However, yesterday evening, based upon how she felt and noting her heart rate seemed to be somewhat higher than usual she elected to present to the [facility] emergency department for further evaluation and care. From a cardiac standpoint she was found to have an initial negative troponin I level. However it has subsequently increased. Her ECG demonstrated sinus rhythm with ST segment changes potentially compatible with myocardial ischemia in the inferolateral distribution. She had a repeat ECG that demonstrated no new acute changes. She was also noted to be markedly anemic with a hemoglobin of 5.6 and a hematocrit of 17.5. She had a COVID-19 test performed. It was reported as negative. Her chest x-ray is as noted below. She was placed in the PCU for further evaluation care. At rest she states she feels okay with no ongoing chest discomfort or difficulty breathing. She has denied any orthopnea or PND. She states she has not been having lower extremity edema. There is been no near syncope or syncope. At the time of her evaluation emergency department, based on the complexity of her case, a request was made by the ED staff/hospital staff to have the patient transferred to a tertiary care center for further advanced evaluation and care. It appears she has been accepted at [facility] pending bed availability. [facility] Medical History (Updated 02/22/21 @ 10:[address] Luis Alberto Madera MD) Acute febrile illness Anemia Angina pectoris Anginal equivalent Aortic insufficiency Atherosclerotic heart disease of [place] coronary artery without angina pectoris BiPAP (biphasic positive airway pressure) dependence CAD (coronary artery disease) Cardiology follow-up encounter Carotid artery disease Chest pain Chronic cough Essential hypertension High cholesterol History of echocardiogram History of stress test Hyperlipidemia Hypertension Hypothyroidism Loss of appetite Mediastinal lymphadenopathy Non-smoker Non-ST elevation (NSTEMI) myocardial infarction Nonrheumatic aortic (valve) insufficiency Nonrheumatic aortic (valve) stenosis Nonrheumatic mitral (valve) insufficiency On home oxygen therapy ABDIAS (obstructive sleep apnea) Shortness of breath on exertion Thyroid disease Valvular heart disease Wears dentures Wears glasses Home Medications ascorbic acid (vitamin C) 500 mg PO DAILY 01/16/18 [History Last Taken 02/21/21] folic acid 0.4 mg PO DAILY@0800 01/16/18 [History Last Taken 02/21/21] coenzyme Q10 100 mg PO DAILY 03/09/18 [History Last Taken 02/21/21] calcium citrate See Rx Instructions .ROUTE .COMPLEX 11/12/18 [History Last Taken 02/21/21] omega-3 fatty acids-fish oil 1 cap PO DAILY 11/12/18 [History Last Taken 02/21/21] nitroglycerin 0.4 mg sublingual tablet 0.4 mg SUBLINGUAL Q5-15M PRN 10 Days #25 tab 12/01/18 [Rx Last Taken 02/21/21] aspirin 81 mg PO DAILY@0800 #0 04/13/20 [Rx Last Taken 02/21/21] clopidogrel 75 mg PO DAILY #90 tab 04/13/20 [Rx Last Taken 02/21/21] levothyroxine 100 mcg PO DAILY 04/18/20 [History Last Taken 02/21/21] rivaroxaban 2.5 mg tablet 2.5 mg PO BID #60 tab 06/27/20 [Rx Last Taken 02/21/21] atorvastatin 40 mg tablet 40 mg PO DAILY #90 tab 07/24/20 [Rx Last Taken 02/20/21] potassium chloride 10 mEq tablet,extended release 10 meq PO DAILY #90 tab 07/24/20 [Rx Last Taken 02/21/21] metoprolol succinate 50 mg tablet,extended release 24 hr 50 mg PO DAILY #90 tab 10/20/20 [Rx Last Taken 02/21/21] isosorbide mononitrate 30 mg tablet,extended release 24 hr 30 mg PO BID #180 tab 01/15/21 [Rx Last Taken 02/21/21] prednisone See Rx Instructions .ROUTE .COMPLEX 02/21/21 [History Last Taken 02/21/21] multivitamin 1 tab PO DAILY 02/22/21 [History Last Taken 02/21/21] Allergy/AdvReac Type Severity Reaction Status Date / Time Iodinated Contrast Media Allergy Intermediate Rash Verified 02/21/21 22:02 [Iodinated Contrast- Oral and IV Dye] ramipril [From Altace] AdvReac Severe cough Verified 02/21/21 22:02 Family History Mother , Age 63 Myocardial infarction Father , Age 28 Colon cancer Other Heart disease Surgical History History of axillary surgery History of cardiac catheterization History of cholecystectomy History of percutaneous transluminal coronary angioplasty (04/16/19) Hx of colonoscopy Presence of stent in coronary artery (05/28/19) Social History Smoking Status: Never smoker second hand exposure: No alcohol intake: never substance use type: does not use caffeine: Yes Type: coffee Number of servings: 1 what type of physical activity do you participate in: none frequency: does not exercise ROS Constitutional Constitutional: Reports as per HPI Eyes Eyes: Reports as per HPI ENT HEENT: Reports as per HPI Cardiovascular Cardiovascular: Reports chest pain with activity and dyspnea on exertion Respiratory/Chest Respiratory/Chest: Reports dyspnea on exertion Gastrointestinal Gastrointestinal: Reports as per HPI Genitourinary Genitourinary: Reports as per HPI Musculoskeletal Musculoskeletal: Reports as per HPI Integumentary Integumentary: Reports as per HPI Physical Exam Narrative This is an 85-year-old pale-appearing white female who appears to be resting comfortably at the moment in no acute distress. Const alert, oriented x3 and no apparent distress Orientation / Consciousness: awake HEENT normocephalic, head/scalp atraumatic and hearing grossly normal bilaterally Eyes PERRL, EOMs intact bilaterally and conjunctivae normal Neck supple and no JVD Resp clear to auscultation bilaterally Cardio regular rate, regular rhythm, S1 normal heart sound and S2 normal heart sound GI normal to inspection, nondistended, normoactive bowel sounds Extremity no pedal edema Skin General Skin Exam: pallor Neuro oriented x3, moves all extremities, no focal motor deficits and no sensory deficits noted Psych mental status grossly normal Procedure Criteria Type of Procedure Procedure Type: Elective Elective Risks - COVID COVID Risk Discussion: The surgeon/proceduralist and patient have discussed in detail the risk of exposure to and/or potential harm posed by the COVID-19 virus with having a surgery/procedure at this time versus the risk of delaying the surgery/procedure. It is not possible to know either the risk of delaying the surgery or procedure or chance of getting an infection with perfect accuracy, but a joint decision was made between the patient and the surgeon/proceduralist to proceed at this time with the scheduled surgery/procedure as indicated on the consent form. Objective Data Vital Signs: Vital Signs Temp Pulse Resp BP Pulse Ox 97.7 F L 68 18 132/50 H 99 02/22/21 05:50 02/22/21 07:40 02/22/21 05:50 02/22/21 05:50 02/22/21 07:30 Oxygen Flow Rate (L/min) 4 Oxygen Delivery Method Nasal Cannula Weight: 151 lb 7.321 oz Body Mass Index (BMI) 28.6 Lab / Micro Data Result Diagrams: 02/22/21 03:46 02/22/21 03:46 Labs: Laboratory Results - last 24 hr 02/21/21 22:03: WBC 11.9 H, RBC 1.94 L, Hgb 6.4 L, Hct 19.8 L, MCV 102.1 H, MCH 33.0 H, MCHC 32.3, RDW Std Deviation 85.1 H, RDW Coeff of [place] 25.0 H, Plt Count 404, MPV 9.4, Immature Gran % (Auto) 1.200 H, Neut % (Auto) 83.0 H, Lymph % (Auto) 7.7 L, [place] % (Auto) 3.3, Eos % (Auto) 3.9, Baso % (Auto) 0.9, Absolute Neuts (auto) 9.9 H, Absolute Lymphs (auto) 0.91, Nucleated RBC % 0.3, Differential Comment SCANNED, Diff Path Review October, Platelet Estimate ADEQUATE, Polychromasia 1+, Anisocytosis 4+, Macrocytosis 1+ 02/21/21 22:03: Sodium 134 L, Potassium 4.3, Chloride 100, Carbon Dioxide 30.0, Anion Gap 4 L, BUN 26 H, Creatinine 1.13 H, Estim Creat Clear Calc 28.46, Est GFR (MDRD) Af Amer 59 L, Est GFR (MDRD) Non-Af 49 L, BUN/Creatinine Ratio 23.0 H, Glucose 190 H, Calcium 9.3, Troponin I High Sens 73 H 02/22/21 01:10: Troponin I High Sens 193 H* 02/22/21 01:10: Blood Type A POSITIVE, Antibody Screen POSITIVE H, Antibody Identification Cancelled, Crossmatch See Detail 02/22/21 01:10: Antibody Screen POSITIVE 02/22/21 01:10: Antibody ID ([place]) Cancelled, Direct Antiglob Test NEG w/COMPLEMENT 02/22/21 03:46: WBC 10.0, RBC 1.72 L, Hgb 5.6 L*, Hct 17.5 L, MCV 101.7 H, MCH 32.6 H, MCHC 32.0, RDW Std Deviation 82.5 H, RDW Coeff of [place] 23.9 H, Plt Count 360, MPV 9.2, Immature Gran % (Auto) 1.300 H, Neut % (Auto) 86.0 H, Lymph % (Auto) 8.7 L, Norman % (Auto) 3.0, Eos % (Auto) 0.5, Baso % (Auto) 0.5, Absolute Neuts (auto) 8.6 H, Absolute Lymphs (auto) 0.87, Nucleated RBC % 0.2, Differential Comment SCANNED, Diff Path Review May , Polychromasia RARE, Anisocytosis 1+, Macrocytosis 1+ 02/22/21 03:46: Sodium 135 L, Potassium 4.4, Chloride 102, Carbon Dioxide 29.0, Anion Gap 4 L, BUN 26 H, Creatinine 1.02, Estim Creat Clear Calc 31.53, Est GFR (MDRD) Af Amer 67, Est GFR (MDRD) Non-Af 55 L, BUN/Creatinine Ratio 25.5 H, Glucose 157 H, Calcium 8.9, Troponin I High Sens 608 H* 02/22/21 03:46: Total Bilirubin 1.80 H, Direct Bilirubin 0.32 H, AST 54 H, ALT 18, Alkaline Phosphatase 83, Lactate Dehydrogenase 305 H, Total Protein 8.2, Albumin 2.9 L, Globulin 5.3 H Micro: Microbiology 02/21/21 22:52 Nasal Secretion SARS-CoV-2 Antigen (Rapid) - Final Cardiology Labs/Tests 02/21/21 22:03: WBC 11.9 H, RBC 1.94 L, Hgb 6.4 L, Hct 19.8 L, MCV 102.1 H, MCH 33.0 H, MCHC 32.3, Plt Count 404, MPV 9.4, Immature Gran % (Auto) 1.200 H, Neut % (Auto) 83.0 H, Lymph % (Auto) 7.7 L, [place] % (Auto) 3.3, Eos % (Auto) 3.9, Baso % (Auto) 0.9, Absolute Neuts (auto) 9.9 H, Nucleated RBC % 0.3 02/21/21 22:03: Sodium 134 L, Potassium 4.3, Chloride 100, Carbon Dioxide 30.0, Anion Gap 4 L, BUN 26 H, Creatinine 1.13 H, Est GFR (MDRD) Af Amer 59 L, Est GFR (MDRD) Non-Af 49 L, BUN/Creatinine Ratio 23.0 H, Glucose 190 H, Calcium 9.3 02/22/21 03:46: WBC 10.0, RBC 1.72 L, Hgb 5.6 L*, Hct 17.5 L, MCV 101.7 H, MCH 32.6 H, MCHC 32.0, Plt Count 360, MPV 9.2, Immature Gran % (Auto) 1.300 H, Neut % (Auto) 86.0 H, Lymph % (Auto) 8.7 L, [place] % (Auto) 3.0, Eos % (Auto) 0.5, Baso % (Auto) 0.5, Absolute Neuts (auto) 8.6 H, Nucleated RBC % 0.2 02/22/21 03:46: Sodium 135 L, Potassium 4.4, Chloride 102, Carbon Dioxide 29.0, Anion Gap 4 L, BUN 26 H, Creatinine 1.02, Est GFR (MDRD) Af Amer 67, Est GFR (MDRD) Non-Af 55 L, BUN/Creatinine Ratio 25.5 H, Glucose 157 H, Calcium 8.9 02/22/21 03:46: Total Bilirubin 1.80 H, Direct Bilirubin 0.32 H Rhythm: Sinus rhythm EKG: As noted above Echocardiogram from 03/24/2018: Interpretation Summary Left ventricular systolic function is normal. The estimated ejection fraction is 65 %. The left atrium is mildly enlarged. There is mild to moderate mitral annular calcification. Extension of the mitral annular calcification onto the posterior mitral valve leaflet. Mild diffuse mitral valve thickening. Mild focal mitral valve calcification of the anterior leaflet. Mitral valve doming/Hockey Sticking Mild (1+) eccentric mitral valve insufficiency. Mild to moderate (1-2+) tricuspid valve insufficiency. Aortic valve sclerosis / mild aortic valve stenosis. Mild (1+) aortic valve insufficiency. Right ventricular systolic pressure estimated to be 28 mmHg. There is evidence of diastolic dysfunction. Stress Test Report Date: 04-15-19 Procedure: Pharmacologic stress nuclear imaging study Indications: Chest pain; CAD; PCI Consent: Per the patient Procedure: The patient underwent pharmacologic (Regadenoson) evaluation with a peak heart rate of 86 beats per minute (61 %predicted maximal heart rate) and a peak blood pressure of 194/68 mmHg. The baseline ECG demonstrated normal sinus rhythm. The peak pharmacologic ECG demonstrated no obvious ECG changes, however, in recovery there was notation of approximately 0.5 to 1.[address] segment depression in leads II, III, aVF and approximately 0.[address] segment depression in leads V4 through V6 with gradual resolution towards baseline in recovery.. There were no cardiac dysrhythmias pretest, during pharmacologic infusion, or recovery. The patient noted chest discomfort during pharmacologic infusion and recovery with subsequent spontaneous resolution in recovery. The examination was discontinued secondary to completion of protocol. Impression: 1. Pharmacologic (Regadenoson) evaluation 2. Peak pharmacologic ECG with approximately 0.5 to 1.[address] segment depression in leads II, III, aVF, and approximately 0.[address] segment depression in leads V4 through V6 in recovery with subsequent gradual resolution towards baseline in recovery. 3. There were no cardiac dysrhythmias pretest, during pharmacologic infusion, or recovery. 4. Nuclear images pending Myocardial perfusion imaging study: Technique: The patient was injected with 12.0 millicuries of technetium 99m Cardiolite and subsequently rest SPECT Cardiolite nuclear imaging was obtained in the horizontal long, vertical long, and short axis views. The patient underwent pharmacologic (Regadenoson) evaluation with a peak heart rate of 86 beats per minute (61 % percent predicted maximal heart rate) and a peak blood pressure of 194/68 mmHg. The patient was injected with 36.0 millicuries of technetium 99m Cardiolite and subsequently stress SPECT Cardiolite nuclear imaging was obtained in the horizontal long, vertical long, and short axis views. A gated Cardiolite study at peak stress was obtained. Interpretation: Rest and stress SPECT Cardiolite nuclear imaging status post realignment, normalization, and attenuation correction demonstrate at rest the appearance of relative uniform tracer uptake. Status post stress there is a small area of diminished tracer uptake in the basal/mid inferior septal/inferior segments. There are similar type findings on the resting/stress polar map images. There is end systolic thickening and brightening. The gated Cardiolite study demonstrates myocardial thickening and inward wall motion. The reported LVEF is 75 %. Impression: 1. Rest and stress SPECT Cardiolite nuclear imaging demonstrate post stress a small area of diminished tracer/perfusion uptake in the basal/mid inferior septal/inferior segments concerning for an area of stress-induced myocardial ischemia. 2. The gated Cardiolite study reports an LVEF of 75 %. Heart catheterization from 05/28/2019: CONCLUSIONS Elevated Left Ventricular End Diastolic Pressure Normal LV size, wall motion,and systolic function LVEF: by LV gram 65 % [place] Multivessel CAD RECOMMENDATIONS Risk factor modification Medical therapy Referred for immediate PCI CORONARY ANGIOGRAPHY DOMINANCE: Right Dominant LEFT HEART ASSESSMENT Left Ventricular Ejection Fraction: by LV Gram 65 % Normal LV wall motion Elevated Left Ventricular End Diastolic Pressure LVEDP: 15 mmHg LEFT MAIN: Mild luminal irregularities LEFT ANTERIOR DESCENDING ARTERY: PROX LAD: Previously placed stent is patent MID LAD: Previously placed stent is patent, Mild luminal irregularities CIRCUMFLEX ARTERY: PROX CIRC: Mild calcification, eccentric: hazy: 25 % Stenosis MID CIRC: Previously placed stent is patent RIGHT CORONARY ARTERY: PROX RCA: Previously placed stent is patent with mild luminal irregularities MID RCA: Previously placed stent has an instent 95 % restenosis DISTAL RCA: Mild luminal irregularities COLLATERAL FLOW: Collateral flow from Left to Right AORTIC ROOT: Angiographically normal Cardiac intervention from 05/28/2019: CONCLUSIONS Successful PTCA/LEANDER mid RCA with a 2.0 x 10 Angiosculpt, followed with a 2.5 x 14 Resolute LEANDER, post dilated with a 2.5 x 12 NC balloon; 85%-->0%, no dissection. Carotid Duplex Ultrasound from 12/09/2018: Interpretation Summary Minimal plague at the proximal right internal carotid with <50% stenosis <50% stenosis right external carotid Calcific irregular plague at the proximal left internal carotid with 50-69% stenosis Plague and >50% stenosis left external carotid Patent and antegrade vertebrals bilaterally Findings show slight progression on the left from 08/05/05. Radiography Diagnostic Testing: Radiology Impression Chest X-Ray 02/21/21 22:17 IMPRESSION: Development of left basilar compressive consolidation with moderate effusion Electronically Signed: Zeyad Tapia DO at 22:39 EDT Tel , Service support ,
[2021-02-22] MEDS: Folic Acid 1 MG Tablet 0.5 MG PO (10:38)
[2021-02-22] MEDS: Isosorbide Mononitrate 30 MG Tablet PO ×2 (10:39→20:49)
[2021-02-22] MEDS: Ascorbic Acid 500 MG Tablet PO (10:39)
[2021-02-22] MEDS: Metoprolol(XL)Succ 50 MG Tablet PO (10:39)
--- NOTE | 2021-02-22 10:57 | EKG12_ITS ---
Test Reason : CP Blood Pressure : / mmHG Vent. Rate : 084 BPM Atrial Rate : 084 BPM P-R Int : 328 ms QRS Dur : 084 ms QT Int : 364 ms P-R-T Axes : 000 033 -20 degrees QTc Int : 430 ms Sinus rhythm with 1st degree A-V block Nonspecific ST changes Abnormal ECG When compared with ECG of 22-FEB-2021 00:36, MANUAL COMPARISON REQUIRED, DATA IS UNCONFIRMED Confirmed by IVA WYNN, DANA ([id number]), restaurant expeditor JANETT MURPHY ([id number]) on 02/27/2021 10:44:11 AM Referred By: FAIZA Confirmed By:DANA ENRIQUE MD
[2021-02-22] MEDS: Calcium Carbonate 500 MG Tablet 1000 MG PO (11:39)
[2021-02-22] MEDS: CLARIFY ORDER 1 EACH NOTE (11:42)
--- NOTE | 2021-02-22 15:18 | PCM.PN.HOSP ---
Subjective Subjective Patient was admitted last night with chest pain. She described chest pain as discomfort, mainly sternal mainly on exertion along with mild shortness of breath. She denies dizziness or near syncope or syncope. She has history of coronary artery status post 8 stents and being followed by Dr. Madera as an outpatient. She also has history of p-ANCA vasculitis and chronic lung disease. She had mediastinal adenopathy and CT chest for which she had bronchoscopy with BAL and lymph node sampling was done. This was found to have unclear etiology with metastasis ruled out. She was referred to bleach analyst and p-ANCA was found with further referral to [facility] bleach analyst, who further referred to [facility] rheumatology clinic for which she has appointment on 03/01. She is currently on prednisone 30 mg. Xarelto 2.5 mg twice daily initiated by dispensing optician apprentice. During hospital stay she did not any further chest pain but her troponin is elevated. Twelve-lead EKG shows normal sinus rhythm with slight ST depression in inferior and lateral leads which is more pronounced than previous EKG. Hemoglobin was found 5.3. It is hemolytic in nature with direct Juliann test positive and LDH elevated. Objective Data Objective Data Vital Signs: Vital Signs Temp Pulse Resp BP Pulse Ox 98.1 F 77 14 161/56 H 96 02/22/21 11:35 02/22/21 14:56 02/22/21 11:35 02/22/21 11:35 02/22/21 11:35 Oxygen Flow Rate (L/min) 4 Oxygen Delivery Method Nasal Cannula Weight: 151 lb 7.321 oz Body Mass Index (BMI) 28.6 Intake & Output: Intake and Output for Last 24 Hours 02/20/21 02/21/21 02/22/21 23:59 23:59 23:59 Intake Total 368.75 / 368.75 Balance 368.75 / 368.75 Lab / Micro Data Result Diagrams: 02/22/21 03:46 02/22/21 03:46 Labs: Laboratory Results - last 24 hr 02/21/21 22:03: WBC 11.9 H, RBC 1.94 L, Hgb 6.4 L, Hct 19.8 L, MCV 102.1 H, MCH 33.0 H, MCHC 32.3, RDW Std Deviation 85.1 H, RDW Coeff of Martha 25.0 H, Plt Count 404, MPV 9.4, Immature Gran % (Auto) 1.200 H, Neut % (Auto) 83.0 H, Lymph % (Auto) 7.7 L, Hawkins % (Auto) 3.3, Eos % (Auto) 3.9, Baso % (Auto) 0.9, Absolute Neuts (auto) 9.9 H, Absolute Lymphs (auto) 0.91, Nucleated RBC % 0.3, Differential Comment SCANNED, Diff Path Review October foll, Platelet Estimate ADEQUATE, Polychromasia 1+, Anisocytosis 4+, Macrocytosis 1+ 02/21/21 22:03: Sodium 134 L, Potassium 4.3, Chloride 100, Carbon Dioxide 30.0, Anion Gap 4 L, BUN 26 H, Creatinine 1.13 H, Estim Creat Clear Calc 28.46, Est GFR (MDRD) Af Amer 59 L, Est GFR (MDRD) Non-Af 49 L, BUN/Creatinine Ratio 23.0 H, Glucose 190 H, Calcium 9.3, Troponin I High Sens 73 H 02/22/21 01:10: Troponin I High Sens 193 H* 02/22/21 01:10: Blood Type A POSITIVE, Antibody Identification WARM AUTOANTIBODY, Crossmatch See Detail 02/22/21 01:10: Antibody Screen POSITIVE 02/22/21 01:10: Antibody ID (Elution) Cancelled, Direct Antiglob Test NEG w/COMPLEMENT 02/22/21 03:46: WBC 10.0, RBC 1.72 L, Hgb 5.6 L*, Hct 17.5 L, MCV 101.7 H, MCH 32.6 H, MCHC 32.0, RDW Std Deviation 82.5 H, RDW Coeff of Martha 23.9 H, Plt Count 360, MPV 9.2, Immature Gran % (Auto) 1.300 H, Neut % (Auto) 86.0 H, Lymph % (Auto) 8.7 L, Hawkins % (Auto) 3.0, Eos % (Auto) 0.5, Baso % (Auto) 0.5, Absolute Neuts (auto) 8.6 H, Absolute Lymphs (auto) 0.87, Nucleated RBC % 0.2, Differential Comment SCANNED, Diff Path Review May foll, Polychromasia RARE, Anisocytosis 1+, Macrocytosis 1+ 02/22/21 03:46: Sodium 135 L, Potassium 4.4, Chloride 102, Carbon Dioxide 29.0, Anion Gap 4 L, BUN 26 H, Creatinine 1.02, Estim Creat Clear Calc 31.53, Est GFR (MDRD) Af Amer 67, Est GFR (MDRD) Non-Af 55 L, BUN/Creatinine Ratio 25.5 H, Glucose 157 H, Calcium 8.9, Troponin I High Sens 608 H* 02/22/21 03:46: Total Bilirubin 1.80 H, Direct Bilirubin 0.32 H, AST 54 H, ALT 18, Alkaline Phosphatase 83, Lactate Dehydrogenase 305 H, Total Protein 8.2, Albumin 2.9 L, Globulin 5.3 H Micro: Microbiology 02/21/21 22:52 Nasal Secretion SARS-CoV-2 Antigen (Rapid) - Final Radiography Diagnostic Testing: Radiology Impression Chest X-Ray 02/21/21 22:17 IMPRESSION: Development of left basilar compressive consolidation with moderate effusion Electronically Signed: Zeyad Tapia DO at 22:39 EDT Tel , Service support , Physical Exam Narrative General: Alert, Oriented x3, Cooperative HEENT: Atraumatic, PERRLA, EOMI, Normocephalic Oral: No Gingival or Mucosal Lesions/ Ulcerations Neck: Supple, No JVD, Negative Carotid Bruits Lungs: Air entry diminished in posterior half left lung, left pleural effusion. No crepitation/rhonchi Cardiovascular: Regular rate, Regular Rhythm, Normal S1, Normal S2, systolic murmur over left second ICS. Abdomen: Bowel Sounds Present, Soft, Non Tender, Non-Distended : No renal angle tenderness. No suprapubic tenderness. Extremities: No edema, Capillary Refill Less than 3 Seconds Skin: No rashes, No breakdown. Varicose veins. Musculoskeletal: No Tenderness to Palpation of Joints or Extremities Neurological: Cranial nerves II-XII grossly intact, DTR 2+/4 and Symmetrical, Neuro grossly intact Psych/Mental Status: Normal Affect, Appropriate. Assessment & Plan Assessment/Plan (1) Non-ST elevation (NSTEMI) myocardial infarction: (2) Chronic hypoxemic respiratory failure: (3) Hemolytic anemia: QUALIFIERS: Hemolytic anemia type: acquired, unspecified Qualified Code(s): D59.9 - Acquired hemolytic anemia, unspecified PLAN: 1. NSTEMI with coronary artery disease status post multiple stents: Patient is being admitted in PCU. Heart rate and blood pressure are controlled. EKG shows slight ST depression in inferior lateral leads. Garment Parts Cutter Hand consulted and discussed with Dr. Madera. Troponin HIGH. As per dispensing optician apprentice seems type II non-STEMI event. She appears hemodynamically stable. Anticoagulation are contraindicated for symptomatic anemia. Continue isosorbide mononitrate. Blood pressure is variable between 132/58, 193/69 and currently 140/53. Patient is allergic to ramipril. She was on losartan before which I will start with holding parameter. 2. 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 She also has history of mediastinal adenopathy for which she had EBUS and biopsy which was nonspecific but malignancy was ruled out. Heme-onc consulted. Her son is a physician in [place] and recommended parvovirus. Parvovirus IgM and IgG ordered. Discussed with the blood bank [facility] and there is incompatible crossmatching is different blood. Might take 8 to 24 hours and there is risk for worsening of hemolytic anemia with blood transfusion. Risk and benefit explained to patient, her and daughter. 3. 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 Has follow-up appointment 03/01/2021 at [facility] vasculitis clinic for further treatment options regarding her chronic vasculitis. Patient had EBUS with biopsy of mediastinal lymph nodes by Dr. Membreno and was found nonspecific but malignancy was ruled out. Patient denies any hematuria but was found proteinuria per PCP. Possible pulmonary renal disease? 4. Hypertension: Blood pressure fluctuates. Blood pressure goes high when she moves. As mentioned above Other complaints: Hypothyroidism, dyslipidemia: Home medication reconciliation done. DVT prophylaxis-contraindicated with severe anemia with hemolytic anemia Total time of the visit including total time spent in counseling or coordination of care, (more than 50% of the total time, spent in obtaining medical information from nurses and other ancillary care providers,explaining to the patient, her and daughter near the bedside about labs, imaging, diagnosis and management), discussion with dispensing optician apprentice and roof cement and paint maker helper and [facility] transfer line, review of labs and imaging is 30 minutes. Charges/Coding Visit Charges Inpatient E&M: 13070 Subs Hosp L3
[2021-02-22 16:40] LABS: Pathologist Review Reviewed
[2021-02-22 16:59] LABS: Pathologist Review Reviewed
[2021-02-22] MEDS: Losartan Potassium 25 MG Tablet PO (19:26)
[2021-02-22] MEDS: predniSONE 20 MG Tablet 60 MG PO (19:27)
[2021-02-22] MEDS: Calcium Carbonate 500 MG Tablet PO (19:32)
[2021-02-22] MEDS: 0.9% Saline Lock 10 ML Syringe IV (20:49)
[2021-02-22] MEDS: Atorvastatin Calcium 40 MG Tablet PO (20:49)
[2021-02-23] VITALS (12 sets, daily range): BP systolic 135–180; BP diastolic 47–68; PULSE 60–83; RESP 16–18; TEMP 36.2–37; O2SAT 96–100
[2021-02-23] MEDS: Levothyroxine 100 MCG Tablet PO (05:54)
[2021-02-23] MEDS: predniSONE 20 MG Tablet 60 MG PO (08:14)
[2021-02-23] MEDS: Potassium Chloride Oral Tablet 10 MEQ PO (08:14)
[2021-02-23] MEDS: Folic Acid 1 MG Tablet 0.5 MG PO (08:14)
[2021-02-23] MEDS: Aspirin 81 MG TAB.CHEW PO (08:15)
[2021-02-23] MEDS: 0.9% Saline Lock 10 ML Syringe IV (08:19)
--- NOTE | 2021-02-23 09:43 | ONC.CONSULT ---
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 She is on 30mg Prednisone, has severe anemia with STEMI. Suggestions are to increase Prednisone to 60mg daily, transfuse PRBC to keep HGB around 10. Will not follow further on this admission. She can follow up on discharge at [facility]. HPI Consult Data Date of Service:: 02/23/21 PCP / Referring Provider: Dr. Boyd Casiano MD Attending: Dr. Jcarlos Bob MD Chief Complaint Chief Complaint: Asked to see Pt for hemolytic anemia. History of Present Illness History of Present Illness: 85-year-old woman was found to have mediastinal adenopathy, positive p-ANCA, CAD was recently started on prednisone for possible vasculitis/hemolytic anemia. She developed chest pain with low hemoglobin 6.4 on 02/21/2021, ELOY on positive, showed warm antibodies. She is now waiting to be transfused. Advanced Directives Power of Radio Communications Mechanician: Yes Living Will: Yes [facility] Medical History (Updated 02/23/21 @ 10:[address] Jono Robert MD) Acute febrile illness Anemia Angina pectoris Anginal equivalent Aortic insufficiency Atherosclerotic heart disease of [place] coronary artery without angina pectoris BiPAP (biphasic positive airway pressure) dependence CAD (coronary artery disease) Cardiology follow-up encounter Carotid artery disease Chest pain Chronic cough Essential hypertension High cholesterol History of echocardiogram History of stress test Hyperlipidemia Hypertension Hypothyroidism Loss of appetite Mediastinal lymphadenopathy Non-smoker Non-ST elevation (NSTEMI) myocardial infarction Nonrheumatic aortic (valve) insufficiency Nonrheumatic aortic (valve) stenosis Nonrheumatic mitral (valve) insufficiency On home oxygen therapy ABDIAS (obstructive sleep apnea) Shortness of breath on exertion Thyroid disease Valvular heart disease Wears dentures Wears glasses Home Medications ascorbic acid (vitamin C) 500 mg PO DAILY 01/16/18 [History Last Taken 02/21/21] folic acid 0.4 mg PO DAILY@0800 01/16/18 [History Last Taken 02/21/21] coenzyme Q10 100 mg PO DAILY 03/09/18 [History Last Taken 02/21/21] calcium citrate See Rx Instructions .ROUTE .COMPLEX 11/12/18 [History Last Taken 02/21/21] omega-3 fatty acids-fish oil 1 cap PO DAILY 11/12/18 [History Last Taken 02/21/21] nitroglycerin 0.4 mg sublingual tablet 0.4 mg SUBLINGUAL Q5-15M PRN 10 Days #25 tab 12/01/18 [Rx Last Taken 02/21/21] aspirin 81 mg PO DAILY@0800 #0 04/13/20 [Rx Last Taken 02/21/21] clopidogrel 75 mg PO DAILY #90 tab 04/13/20 [Rx Last Taken 02/21/21] levothyroxine 100 mcg PO DAILY 04/18/20 [History Last Taken 02/21/21] rivaroxaban 2.5 mg tablet 2.5 mg PO BID #60 tab 06/27/20 [Rx Last Taken 02/21/21] atorvastatin 40 mg tablet 40 mg PO DAILY #90 tab 07/24/20 [Rx Last Taken 02/20/21] potassium chloride 10 mEq tablet,extended release 10 meq PO DAILY #90 tab 07/24/20 [Rx Last Taken 02/21/21] metoprolol succinate 50 mg tablet,extended release 24 hr 50 mg PO DAILY #90 tab 10/20/20 [Rx Last Taken 02/21/21] isosorbide mononitrate 30 mg tablet,extended release 24 hr 30 mg PO BID #180 tab 01/15/21 [Rx Last Taken 02/21/21] prednisone 10 mg PO DAILY 02/21/21 [History Last Taken 02/21/21] multivitamin 1 tab PO DAILY 02/22/21 [History Last Taken 02/21/21] Allergy/AdvReac Type Severity Reaction Status Date / Time Iodinated Contrast Media Allergy Intermediate Rash Verified 02/21/21 22:02 [Iodinated Contrast- Oral and IV Dye] ramipril [From Altace] AdvReac Severe cough Verified 02/21/21 22:02 Family History Mother , Age 63 Myocardial infarction Father , Age 28 Colon cancer Other Heart disease Surgical History History of axillary surgery History of cardiac catheterization History of cholecystectomy History of percutaneous transluminal coronary angioplasty (04/16/19) Hx of colonoscopy Presence of stent in coronary artery (05/28/19) Social History Smoking Status: Never smoker second hand exposure: No alcohol intake: never substance use type: does not use caffeine: Yes Type: coffee Number of servings: 1 what type of physical activity do you participate in: none frequency: does not exercise ROS Constitutional Constitutional: Reports fatigue ENT HEENT: Denies dysphagia or hoarseness Cardiovascular Cardiovascular: Reports chest pain and dyspnea on exertion Respiratory/Chest Respiratory/Chest: Reports chest tightness and dyspnea on exertion Gastrointestinal Gastrointestinal: Denies abdominal pain Genitourinary Genitourinary: Denies change in urinary stream Musculoskeletal Musculoskeletal: Denies abnormal gait or back pain Integumentary Integumentary: Denies alopecia, erythema or jaundice Neurologic Neurologic: Denies abnormal speech, behavior changes, confusion or dizziness Psychiatric Psychiatric: Denies anxiety Endocrine Endocrinology: Denies cold intolerance Hematologic/Lymphatic Hematologic/Lymphatic: Denies easy bleeding Physical Exam Const alert and oriented x3 Orientation / Consciousness: oriented to person HEENT normocephalic Eyes Eyes Narrative: tinge of jaundice Neck supple Lymph Lymphatic: no lymphadenopathy noted Resp normal respiratory effort and clear to auscultation bilaterally Effort and Inspection: symmetric chest movement Cardio regular rate, regular rhythm, S1 normal heart sound, S2 normal heart sound and no murmurs GI normal to inspection, nondistended, normoactive bowel sounds Bladder / Kidney Exam: no CVA tenderness Extremity normal to inspection and no clubbing, cyanosis or edema Skin no rashes or lesions noted Neuro CN's II-XII intact bilaterally, moves all extremities, no focal motor deficits and no sensory deficits noted Psych mental status grossly normal Vital Signs Temperature 97.3 F L 02/23/21 08:37 Temperature Source Oral 02/23/21 08:37 Pulse Rate 71 02/23/21 08:37 Respiratory Rate 16 02/23/21 08:37 Respiratory Effort Non-Labored 02/23/21 08:09 Respiratory Depth Normal 02/23/21 08:09 Respiratory Pattern Normal 02/23/21 08:09 Blood Pressure 144/47 H 02/23/21 08:37 Blood Pressure Mean 79 02/23/21 08:37 Blood Pressure Source Monitor 02/23/21 08:37 Blood Pressure Position Semi-Fowlers 02/23/21 08:37 Blood Pressure Location Right Arm 02/23/21 08:37 Pulse Ox 96 02/23/21 08:37 Oxygen Delivery Method Nasal Cannula 02/23/21 08:37 Oxygen Flow Rate (L/min) 4 02/23/21 08:37 Laboratory Results - last 24 hr 02/21/21 22:03: Diff Path Review Reviewed 02/22/21 01:10: Antibody Identification WARM AUTOANTIBODY 02/22/21 03:46: Diff Path Review Reviewed Diagnostic Data Chest X-Ray 02/21/21 22:17 IMPRESSION: Development of left basilar compressive consolidation with moderate effusion Electronically Signed: Zeyad Tapia DO at 22:39 EDT Tel , Service support , Charges/Coding Visit Charges Office Visits / Consults: 98264 IP Consult L4
[2021-02-23] MEDS: Metoprolol(XL)Succ 50 MG Tablet PO (09:49)
[2021-02-23] MEDS: Ascorbic Acid 500 MG Tablet PO (09:49)
[2021-02-23] MEDS: Isosorbide Mononitrate 30 MG Tablet PO ×2 (09:49→21:16)
[2021-02-23] MEDS: Losartan Potassium 25 MG Tablet PO (09:50)
[2021-02-23 10:48] LABS: Absolute Neutrophil Count 11.1 X10^3/uL (2.0-7.7); Basophil# 0.02 X10^3/uL; Basophil% 0.2 % (0-1); Eosinophil# 0.02 X10^3/uL; Eosinophils% 0.2 % (0-5); Hematocrit 17.7 % (37-47); Lymphocyte % 9.8 % (19-41); Mean Corp Hgb Conc 31.6 g/dL (32-36); Mean Corpuscular Hgb 32.6 pg (27.0-32.0); Mean Corpuscular Volume 102.9 fL (81-99); Mean Platelet Vol. 9.3 fl (6.2-12.0); Monocyte# 0.54 X10^3/uL; Monocyte% 4.1 % (0-10); NRBC Flagged by Analyzer 0.6 % (0-5); Neutrophil # 11.12 X10^3/uL (2.7-7.7); Neutrophil % 83.4 % (47-70); POSITIVE COUNT YES; POSITIVE MORPHOLOGY YES; Platelet Count 387 K/mm3 (150-450); RBC Distribution Width CV 25.1 % (11.6-14.6); RBC Distribution Width SD 81.9 fl (35.1-43.9); Red Blood Count 1.72 M/mm3 (4.2-5.4); White Blood Count 13.3 K/mm3 (4.4-11.0)
[2021-02-23 10:54] LABS: Differential Indicated SCAN CRITERIA MET; Hemoglobin 5.6 g/dL (12.0-15.0)
[2021-02-23 11:14] LABS: Phosphorus 2.5 mg/dL (2.5-4.9)
[2021-02-23 11:18] LABS: ALB/GLOB Ratio 0.5 RATIO (0.9-2.4); AST(SGOT) 58 U/L (15-37); Alanine Aminotransfer ALT/SGPT 21 U/L (13-56); Albumin, Serum 2.8 g/dL (3.2-5.0); Alkaline Phosphatase 78 U/L (45-117); Anion Gap 7 (5-15); BUN 28 mg/dL (7-18); BUN/Creat Ratio 25.7 RATIO (10-20); CRP < 2.90 mg/L (0.0-3.0); Calcium,Total 8.5 mg/dL (8.5-10.1); Chloride 103 mmol/L (98-107); Creatinine, Serum 1.09 mg/dL (0.55-1.02); EST Glomerular Filtration Rate 51 mL/min (>60); Est Glom Filt Rate - Afr Amer 62 mL/min (>60); Estimated Creatinine Clearance 29.51 ml/min; Globulin 5.4 g/dL (2.2-4.2); Glucose 194 mg/dL (74-106); Potassium 4.1 mmol/L (3.5-5.1); Protein, Total 8.2 g/dL (6.4-8.2); Sodium Level 136 mmol/L (136-145)
[2021-02-23 11:20] LABS: CPK Total, Creatine Kinase 55 U/L (26-192); Troponin-I HS 869 pg/mL (3.0-54.0)
--- NOTE | 2021-02-23 11:20 | NURSING ---
[facility] called stated no bed yet.
[2021-02-23 11:32] LABS: Platelet Estimate ADEQUATE (ADEQ)
[2021-02-23 11:33] LABS: Anisocytosis 3+; Polychromasia 1+
[2021-02-23 11:47] LABS: LDH 323 U/L (84-246)
--- NOTE | 2021-02-23 11:49 | PCM.PN.CARD ---
Documented by User: ERYN Kong 02/23/21 12:13 Subjective Subjective Pt still notes that she has a difficult time standing without getting lightheaded or dizzy. She is SOB with minimal exertion. Objective Data Vital Signs: Vital Signs Temp Pulse Resp BP Pulse Ox 97.3 F L 70 16 142/54 H 96 02/23/21 08:37 02/23/21 09:49 02/23/21 08:37 02/23/21 09:49 02/23/21 08:37 Oxygen Flow Rate (L/min) 4 Oxygen Delivery Method Nasal Cannula Weight: 151 lb 7.321 oz Body Mass Index (BMI) 28.6 Intake & Output: Intake and Output for Last 24 Hours 02/21/21 02/22/21 02/23/21 23:59 23:59 23:59 Intake Total 478.75 / 718.75 470 / 470 Balance 478.75 / 718.75 470 / 470 Lab / Micro Data Result Diagrams: 02/23/21 10:40 02/23/21 10:40 Labs: Laboratory Results - last 24 hr 02/21/21 22:03: Diff Path Review Reviewed 02/22/21 01:10: Antibody Identification WARM AUTOANTIBODY 02/22/21 01:10: Antibody ID (Elution) Cancelled, Direct Antiglob Test NEG w/COMPLEMENT 02/22/21 03:46: Diff Path Review Reviewed 02/23/21 10:40: WBC 13.3 H, RBC 1.72 L, Hgb 5.6 L*, Hct 17.7 L, MCV 102.9 H, MCH 32.6 H, MCHC 31.6 L, RDW Std Deviation 81.9 H, RDW Coeff of Martha 25.1 H, Plt Count 387, MPV 9.3, Immature Gran % (Auto) 2.300 H, Neut % (Auto) 83.4 H, Lymph % (Auto) 9.8 L, [place] % (Auto) 4.1, Eos % (Auto) 0.2, Baso % (Auto) 0.2, Absolute Neuts (auto) 11.1 H, Absolute Lymphs (auto) 1.30, Nucleated RBC % 0.6, Diff Path Review May foll, Platelet Estimate ADEQUATE, Polychromasia 1+, Anisocytosis 3+ 02/23/21 10:40: Sodium 136, Potassium 4.1, Chloride 103, Carbon Dioxide 26.0, Anion Gap 7, BUN 28 H, Creatinine 1.09 H, Estim Creat Clear Calc 29.51, Est GFR (MDRD) Af Amer 62, Est GFR (MDRD) Non-Af 51 L, BUN/Creatinine Ratio 25.7 H, Glucose 194 H, Calcium 8.5, Total Bilirubin 1.70 H, AST 58 H, ALT 21, Alkaline Phosphatase 78, C-React Prot Ext Range < 2.90, Total Protein 8.2, Albumin 2.8 L, Globulin 5.4 H, Albumin/Globulin Ratio 0.5 L 02/23/21 10:40: Magnesium 2.0, Total Creatine Kinase 55, Troponin I High Sens 869 H* 02/23/21 10:40: Phosphorus 2.5 02/23/21 10:40: Lactate Dehydrogenase 323 H Cardiology Labs/Tests 02/23/21 10:40: WBC 13.3 H, RBC 1.72 L, Hgb 5.6 L*, Hct 17.7 L, MCV 102.9 H, MCH 32.6 H, MCHC 31.6 L, Plt Count 387, MPV 9.3, Immature Gran % (Auto) 2.300 H, Neut % (Auto) 83.4 H, Lymph % (Auto) 9.8 L, [place] % (Auto) 4.1, Eos % (Auto) 0.2, Baso % (Auto) 0.2, Absolute Neuts (auto) 11.1 H, Nucleated RBC % 0.6 02/23/21 10:40: Sodium 136, Potassium 4.1, Chloride 103, Carbon Dioxide 26.0, Anion Gap 7, BUN 28 H, Creatinine 1.09 H, Est GFR (MDRD) Af Amer 62, Est GFR (MDRD) Non-Af 51 L, BUN/Creatinine Ratio 25.7 H, Glucose 194 H, Calcium 8.5, Total Bilirubin 1.70 H 02/23/21 10:40: Magnesium 2.0 02/23/21 10:40: Phosphorus 2.5 Rhythm: EKG: ECHO: 2018: Left ventricular systolic function is normal. The estimated ejection fraction is 65 %. The left atrium is mildly enlarged. There is mild to moderate mitral annular calcification. Extension of the mitral annular calcification onto the posterior mitral valve leaflet. Mild diffuse mitral valve thickening. Mild focal mitral valve calcification of the anterior leaflet. Mitral valve doming/Hockey Sticking Mild (1+) eccentric mitral valve insufficiency. Mild to moderate (1-2+) tricuspid valve insufficiency. Aortic valve sclerosis / mild aortic valve stenosis. Mild (1+) aortic valve insufficiency. Right ventricular systolic pressure estimated to be 28 mmHg. There is evidence of diastolic dysfunction. Stress Test: Cardiac Cath: 2019: DOMINANCE: Right Dominant LEFT HEART ASSESSMENT Left Ventricular Ejection Fraction: by LV Gram 65 % Normal LV wall motion Elevated Left Ventricular End Diastolic Pressure LVEDP: 15 mmHg LEFT MAIN: Mild luminal irregularities LEFT ANTERIOR DESCENDING ARTERY: PROX LAD: Previously placed stent is patent MID LAD: Previously placed stent is patent, Mild luminal irregularities CIRCUMFLEX ARTERY: PROX CIRC: Mild calcification, eccentric: hazy: 25 % Stenosis MID CIRC: Previously placed stent is patent RIGHT CORONARY ARTERY: PROX RCA: Previously placed stent is patent with mild luminal irregularities MID RCA: Previously placed stent has an instent 95 % restenosis DISTAL RCA: Mild luminal irregularities COLLATERAL FLOW: Collateral flow from Left to Right AORTIC ROOT: Angiographically normal Radiography Diagnostic Testing: Radiology Impression Chest X-Ray 02/21/21 22:17 IMPRESSION: Development of left basilar compressive consolidation with moderate effusion Electronically Signed: Zeyad Tapia DO at 22:39 EDT Tel , Service support , Physical Exam Narrative This is an 85-year-old pale-appearing white female who appears to be resting comfortably at the moment in no acute distress. Const alert, oriented x3 and no apparent distress Orientation / Consciousness: awake HEENT normocephalic, head/scalp atraumatic and hearing grossly normal bilaterally Eyes PERRL, EOMs intact bilaterally and conjunctivae normal Neck supple and no JVD Resp clear to auscultation bilaterally Cardio regular rate, regular rhythm, S1 normal heart sound and S2 normal heart sound Heart Sounds: murmur systolic II/ soft GI normal to inspection, nondistended, normoactive bowel sounds Extremity no pedal edema Skin General Skin Exam: pallor Neuro oriented x3, moves all extremities, no focal motor deficits and no sensory deficits noted Psych mental status grossly normal Assessment & Plan Assessment/Plan (1) Non-ST elevation (NSTEMI) myocardial infarction: (2) Atherosclerotic heart disease of [place] coronary artery without angina pectoris: QUALIFIERS: [place] vs. 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 with her anemia do not feel that she is an ideal candidate for a diagnostic heart cath. Based upon her known cardiovascular hx and recommendations after her last cardiac intervention, if she would require additional work pt would need to be considered for tertiary care center for possible CABG. pt was evaluated by hematology, she is awaiting PRBC Prior to her being admitted her BP medications were decrease/stopped d/t low BP readings, this has since been restarted, will continue to adjust as needed. Pt is awaiting transfer to tertiary care center for her hemolytic anemia Charges/Coding Visit Charges Inpatient E&M: 82489 Subs Hosp L3 Documented by User: Dr. Marielle Langston MD 02/23/21 17:20 Lab / Micro Data Result Diagrams: 02/23/21 10:40 02/23/21 10:40 Assessment & Plan Assessment/Plan (1) Atherosclerotic heart disease of [place] coronary artery without angina pectoris: QUALIFIERS: [place] vs. transplanted heart: [place] heart Qualified Code(s): I25.10 - Atherosclerotic heart disease of [place] coronary artery without angina pectoris (2) Dyspnea: QUALIFIERS: Dyspnea type: dyspnea on exertion Qualified Code(s): R06.00 - Dyspnea, unspecified (3) Presence of stent in coronary artery: PLAN: This patient seen and evaluated today at bedside along with physician manufacturing assistant Joi Rivera I reviewed the current data, cardiac telemetry, current medication And agree with the documentation and cardiac care plan as documented by the midlevel We will continue to monitor and follow-up clinically. The mild elevation of cardiac biomarkers secondary to type II CA/demand ischemia as patient also had anemia in this admission Patient will be waiting to be referred to tertiary cardiac center
[2021-02-23] MEDS: Calcium Carbonate 500 MG Tablet 1000 MG PO (12:14)
--- NOTE | 2021-02-23 14:06 | PN.HOSP_ITS ---
Subjective Subjective Patient blood pressure and heart rate is good when she is resting on the but but as soon as she moves around her blood pressure and heart rate goes up when she gets short of breath and mild chest pain. Dyspnea on exertion. Objective Data Objective Data Vital Signs: Vital Signs Temp Pulse Resp BP Pulse Ox 97.3 F L 70 16 142/54 H 96 02/23/21 08:37 02/23/21 09:49 02/23/21 08:37 02/23/21 09:49 02/23/21 08:37 Oxygen Flow Rate (L/min) 4 Oxygen Delivery Method Nasal Cannula Weight: 151 lb 7.321 oz Body Mass Index (BMI) 28.6 Intake & Output: Intake and Output for Last 24 Hours 02/21/21 02/22/21 02/23/21 23:59 23:59 23:59 Intake Total 478.75 / 718.75 830 / 830 Balance 478.75 / 718.75 830 / 830 Lab / Micro Data Result Diagrams: 02/23/21 10:40 02/23/21 10:40 Labs: Laboratory Results - last 24 hr 02/21/21 22:03: Diff Path Review Reviewed 02/22/21 01:10: Antibody Identification WARM AUTOANTIBODY 02/22/21 01:10: Antibody ID (Elution) Cancelled, Direct Antiglob Test NEG w/COMPLEMENT 02/22/21 03:46: Diff Path Review Reviewed 02/23/21 10:40: WBC 13.3 H, RBC 1.72 L, Hgb 5.6 L*, Hct 17.7 L, MCV 102.9 H, MCH 32.6 H, MCHC 31.6 L, RDW Std Deviation 81.9 H, RDW Coeff of Martha 25.1 H, Plt Count 387, MPV 9.3, Immature Gran % (Auto) 2.300 H, Neut % (Auto) 83.4 H, Lymph % (Auto) 9.8 L, [place] % (Auto) 4.1, Eos % (Auto) 0.2, Baso % (Auto) 0.2, Absolute Neuts (auto) 11.1 H, Absolute Lymphs (auto) 1.30, Nucleated RBC % 0.6, Diff Path Review May foll, Platelet Estimate ADEQUATE, Polychromasia 1+, Anisocytosis 3+ 02/23/21 10:40: Sodium 136, Potassium 4.1, Chloride 103, Carbon Dioxide 26.0, Anion Gap 7, BUN 28 H, Creatinine 1.09 H, Estim Creat Clear Calc 29.51, Est GFR (MDRD) Af Amer 62, Est GFR (MDRD) Non-Af 51 L, BUN/Creatinine Ratio 25.7 H, Glucose 194 H, Calcium 8.5, Total Bilirubin 1.70 H, AST 58 H, ALT 21, Alkaline Phosphatase 78, C-React Prot Ext Range < 2.90, Total Protein 8.2, Albumin 2.8 L, Globulin 5.4 H, Albumin/Globulin Ratio 0.5 L 02/23/21 10:40: Magnesium 2.0, Total Creatine Kinase 55, Troponin I High Sens 869 H* 02/23/21 10:40: Phosphorus 2.5 02/23/21 10:40: Lactate Dehydrogenase 323 H Micro: Microbiology 02/21/21 22:52 Nasal Secretion SARS-CoV-2 Antigen (Rapid) - Final Physical Exam Narrative General: Alert, Oriented x3, Cooperative HEENT: Atraumatic, PERRLA, EOMI, Normocephalic Oral: No Gingival or Mucosal Lesions/ Ulcerations Neck: Supple, No JVD, Negative Carotid Bruits Lungs: Air entry diminished in posterior half left lung, left pleural effusion. No crepitation/rhonchi Cardiovascular: Regular sinus rhythm, Normal S1, Normal S2, systolic murmur over left second ICS. Abdomen: Bowel Sounds Present, Soft, Non Tender, Non-Distended : No renal angle tenderness. No suprapubic tenderness. Extremities: No edema, Capillary Refill Less than 3 Seconds Skin: No rashes, No breakdown. Varicose veins. Musculoskeletal: No Tenderness to Palpation of Joints or Extremities Neurological: Cranial nerves II-XII grossly intact, DTR 2+/4 and Symmetrical, Neuro grossly intact Psych/Mental Status: Normal Affect, Appropriate. 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 NSTEMI with coronary artery disease status post multiple stents: Patient is being admitted in PCU. Heart rate and blood pressure are controlled. EKG shows slight ST depression in inferior lateral leads. Wash Test Checker consulted and discussed with Dr. Madera. Troponin HIGH. As per digital imaging specialist seems type II non-STEMI event. She appears hemodynamically stable. Anticoagulation are contraindicated for symptomatic anemia. Continue isosorbide mononitrate. 02/23: Patient hemodynamically stable when she is at rest. Blood pressure is better controlled on losartan. Isolated troponin elevated than yesterday. transfer line called there is still bed not open. 2. 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 She also has history of mediastinal adenopathy for which she had EBUS and biopsy which was nonspecific but malignancy was ruled out. Heme-onc consulted. 02/23: Hemoglobin is stable at 5.6. Discussed with the blood bank, [facility] and blood has been sent to outside facility for specific test. Might take 8 to 24hours. She is on prednisone high-dose 60 mg daily started yesterday. Seen by groundman/lineman. Parvovirus IgM and IgG are pending. There is still risk of cross-reactivity of blood transfusion and patient's daughter and her knows it. I discussed with multiple physicians in [facility] including real estate office supervisor and hospitalist but they think it is the same level of care as here and advised they will not do anything different from here but if family wants super ior/tertiary level of care, it will be [facility] [place] [place]. I called her transfer line. 3. 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 Has follow-up appointment 03/01/2021 at [facility] vasculitis clinic for further treatment options regarding her chronic vasculitis. Patient had EBUS with biopsy of mediastinal lymph nodes by Dr. Membreno and was found nonspecific but malignancy was ruled out. Patient denies any hematuria but was found proteinuria per PCP. Possible pulmonary renal disease? 4. Hypertension: Blood pressure fluctuates. Blood pressure goes high when she moves. As mentioned above Other complaints: Hypothyroidism, dyslipidemia: Home medication reconciliation done. DVT prophylaxis-contraindicated with severe anemia with hemolytic anemia Total time of the visit including total time spent in counseling or coordination of care, (more than 50% of the total time, spent in obtaining medical information from nurses and other ancillary care providers,explaining to the patient, her and daughter near the bedside about labs, imaging, diagnosis and management), discussion with digital imaging specialist and groundman/lineman and [facility] transfer line, review of labs and imaging is 30 minutes. Charges/Coding Visit Charges Inpatient E&M: 47977 Subs Hosp L3
[2021-02-23] MEDS: Calcium Carbonate 500 MG Tablet PO (15:56)
--- NOTE | 2021-02-23 20:08 | PCS.PANDOC ---
PANDEMIC DOCUMENTATION INITIATED: Date: 01/29/2021 Time: 190
[2021-02-23] MEDS: Atorvastatin Calcium 40 MG Tablet PO (21:16)
[2021-02-24] VITALS (21 sets, daily range): BP systolic 111–169; BP diastolic 49–69; PULSE 54–81; RESP 16–18; TEMP 36.5–37.3; O2SAT 95–100
[2021-02-24] MEDS: Levothyroxine 100 MCG Tablet PO (05:53)
[2021-02-24] MEDS: 0.9% Saline Lock 10 ML Syringe IV ×2 (06:06→08:36)
[2021-02-24 07:36] LABS: Absolute Lymphocyte Count 2.72 X10^3/uL (0.83-4.51); Absolute Neutrophil Count 11.8 X10^3/uL (2.0-7.7); Basophil# 0.07 X10^3/uL; Basophil% 0.4 % (0-1); Eosinophil# 0.05 X10^3/uL; Eosinophils% 0.3 % (0-5); Hematocrit 17.2 % (37-47); Lymphocyte # 2.72 X10^3/ul (0.83-4.51); Lymphocyte % 16.6 % (19-41); Mean Corpuscular Hgb 33.7 pg (27.0-32.0); Mean Corpuscular Volume 105.5 fL (81-99); Mean Platelet Vol. 9.7 fl (6.2-12.0); Monocyte% 7.3 % (0-10); NRBC Flagged by Analyzer 1.8 % (0-5); Neutrophil # 11.78 X10^3/uL (2.7-7.7); POSITIVE COUNT YES; POSITIVE MORPHOLOGY YES; Platelet Count 390 K/mm3 (150-450); RBC Distribution Width CV 26.5 % (11.6-14.6); RBC Distribution Width SD 92.7 fl (35.1-43.9); Red Blood Count 1.63 M/mm3 (4.2-5.4); Reticulocyte Count 15.67 % (0.5-1.5); White Blood Count 16.4 K/mm3 (4.4-11.0)
[2021-02-24 07:59] LABS: Differential Indicated SCAN CRITERIA MET; Hemoglobin 5.5 g/dL (12.0-15.0)
[2021-02-24 08:21] LABS: ALB/GLOB Ratio 0.5 RATIO (0.9-2.4); AST(SGOT) 56 U/L (15-37); Alanine Aminotransfer ALT/SGPT 20 U/L (13-56); Albumin, Serum 2.8 g/dL (3.2-5.0); Alkaline Phosphatase 75 U/L (45-117); Anion Gap 6 (5-15); BUN 27 mg/dL (7-18); BUN/Creat Ratio 28.2 RATIO (10-20); Calcium,Total 8.3 mg/dL (8.5-10.1); Chloride 103 mmol/L (98-107); Creatinine, Serum 0.96 mg/dL (0.55-1.02); EST Glomerular Filtration Rate 59 mL/min (>60); Est Glom Filt Rate - Afr Amer 72 mL/min (>60); Estimated Creatinine Clearance 33.51 ml/min; Globulin 5.1 g/dL (2.2-4.2); Glucose 108 mg/dL (74-106); Potassium 3.8 mmol/L (3.5-5.1); Protein, Total 7.9 g/dL (6.4-8.2); Sodium Level 137 mmol/L (136-145)
[2021-02-24] MEDS: Aspirin 81 MG TAB.CHEW PO (08:27)
[2021-02-24] MEDS: Folic Acid 1 MG Tablet 0.5 MG PO (08:28)
[2021-02-24] MEDS: Potassium Chloride Oral Tablet 10 MEQ PO (08:28)
[2021-02-24] MEDS: Losartan Potassium 25 MG Tablet PO ×2 (08:29→15:59)
[2021-02-24] MEDS: predniSONE 20 MG Tablet 60 MG PO (08:29)
[2021-02-24] MEDS: Metoprolol(XL)Succ 50 MG Tablet PO (08:30)
[2021-02-24] MEDS: Isosorbide Mononitrate 30 MG Tablet PO ×2 (08:30→21:57)
[2021-02-24] MEDS: Calcium Carbonate 500 MG Tablet 1000 MG PO (08:31)
[2021-02-24] MEDS: Ascorbic Acid 500 MG Tablet PO (08:41)
--- NOTE | 2021-02-24 10:57 | PN.HOSP_ITS ---
Subjective Subjective Patient had shortness of breath last night on mild exertion but denies any chest discomfort or pain. Hemodynamically heart rate and blood pressure controlled with mild bradycardia heart rate in 50s in senior radiation protection technician around 3 AM. Objective Data Objective Data Vital Signs: Vital Signs Temp Pulse Resp BP Pulse Ox 99.1 F 61 16 152/49 H 99 02/24/21 08:23 02/24/21 08:30 02/24/21 08:23 02/24/21 08:30 02/24/21 08:23 Oxygen Flow Rate (L/min) 4 Oxygen Delivery Method Nasal Cannula Weight: 151 lb 7.321 oz Body Mass Index (BMI) 28.6 Intake & Output: Intake and Output for Last 24 Hours 02/22/21 02/23/21 02/24/21 23:59 23:59 23:59 Intake Total 478.75 / 718.75 1620 / 1620 160 / 160 Balance 478.75 / 718.75 1620 / 1620 160 / 160 Lab / Micro Data Result Diagrams: 02/24/21 06:30 02/24/21 06:30 Labs: Laboratory Results - last 24 hr 02/22/21 01:10: Blood Type A POSITIVE, Antibody Screen POSITIVE H, Antibody Identification WARM AUTOANTIBODY, Crossmatch See Detail 02/22/21 01:10: Antibody ID (Elution) Cancelled, Direct Antiglob Test NEG w/COMPLEMENT 02/23/21 10:40: Diff Path Review October, Platelet Estimate ADEQUATE, Polychromasia 1+, Anisocytosis 3+ 02/23/21 10:40: Sodium 136, Potassium 4.1, Chloride 103, Carbon Dioxide 26.0, Anion Gap 7, BUN 28 H, Creatinine 1.09 H, Estim Creat Clear Calc 29.51, Est GFR (MDRD) Af Amer 62, Est GFR (MDRD) Non-Af 51 L, BUN/Creatinine Ratio 25.7 H, Glucose 194 H, Calcium 8.5, Total Bilirubin 1.70 H, AST 58 H, ALT 21, Alkaline Phosphatase 78, C-React Prot Ext Range < 2.90, Total Protein 8.2, Albumin 2.8 L, Globulin 5.4 H, Albumin/Globulin Ratio 0.5 L 02/23/21 10:40: Magnesium 2.0, Total Creatine Kinase 55, Troponin I High Sens 869 H* 02/23/21 10:40: Phosphorus 2.5 02/23/21 10:40: Lactate Dehydrogenase 323 H 02/24/21 06:30: WBC 16.4 H, RBC 1.63 L, Hgb 5.5 L*, Hct 17.2 L, MCV 105.5 H, MCH 33.7 H, MCHC 32.0, RDW Std Deviation 92.7 H, RDW Coeff of Martha 26.5 H, Plt Count 390, MPV 9.7, Immature Gran % (Auto) 3.400 H, Neut % (Auto) 72.0 H, Lymph % (Auto) 16.6 L, [place] % (Auto) 7.3, Eos % (Auto) 0.3, Baso % (Auto) 0.4, Absolute Neuts (auto) 11.8 H, Absolute Lymphs (auto) 2.72, Nucleated RBC % 1.8, Retic Count 15.67 H, Immature Retic Fraction 40.10 H, Retic Hgb Equivalent 36.0 H 02/24/21 06:30: Sodium 137, Potassium 3.8, Chloride 103, Carbon Dioxide 28.0, Anion Gap 6, BUN 27 H, Creatinine 0.96, Estim Creat Clear Calc 33.51, Est GFR (MDRD) Af Amer 72, Est GFR (MDRD) Non-Af 59 L, BUN/Creatinine Ratio 28.2 H, Glucose 108 H, Calcium 8.3 L, Total Bilirubin 2.00 H, AST 56 H, ALT 20, Alkaline Phosphatase 75, Total Protein 7.9, Albumin 2.8 L, Globulin 5.1 H, Albumin/Globulin Ratio 0.5 L, Folate 46.70 Micro: Microbiology 02/21/21 22:52 Nasal Secretion SARS-CoV-2 Antigen (Rapid) - Final Physical Exam HEENT HEENT Narrative: 1. NSTEMI with coronary artery disease status post multiple stents: Patient is being admitted in PCU. Heart rate and blood pressure are controlled. EKG shows slight ST depression in inferior lateral leads. Delivery Truck Driver consulted and discussed with Dr. Madera. Troponin HIGH. As per rn neurosurgical seems type II non-STEMI event. She appears hemodynamically stable. Anticoagulation are contraindicated for symptomatic anemia. Continue isosorbide mononitrate. 02/23: Patient hemodynamically stable when she is at rest. Blood pressure is better controlled on losartan. Isolated troponin elevated than yesterday. transfer line called there is still bed not open. 02/24: I signed the paper for PRBC transfusion 2 units. Lasix 40 mg as needed if needed for fluid overload/shortness of breath during transfusion. Benadryl 25 mg oral given half an hour to 1 hour before transfusion. 2. 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 She also has history of mediastinal adenopathy for which she had EBUS and biopsy which was nonspecific but malignancy was ruled out. Heme-onc consulted. 02/24: Discussed with Dr. Robert, the senior laboratory technician in detail over the phone today. There is low risk of transfusion reaction or antibody cross-reactivity as patient is already on heavy dose of prednisone. Can monitor LDH, liver profile, reticulocyte count intermittently. Repeat direct Juliann is advised after 6 weeks after completion of prednisone 60 mg daily at least for 2 weeks. Patient on PPI. There is no bed available. On 02/23, I talked to the transfer line center and spoke with hospitalist Baldomero Bianchi and he accepted the patient but patient is on waiting list of the do not have a bed in telemetry. 3. 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 Has follow-up appointment 03/01/2021 at [facility] vasculitis clinic for further treatment options regarding her chronic vasculitis. Patient had EBUS with biopsy of mediastinal lymph nodes by Dr. Membreno and was found nonspecific but malignancy was ruled out. Patient denies any hematuria but was found proteinuria per PCP. Possible pulmonary renal disease? 4. Hypertension: Blood pressure fluctuates. Blood pressure goes high when she moves. As mentioned above Other complaints: Hypothyroidism, dyslipidemia: Home medication reconciliation done. DVT prophylaxis-contraindicated with severe anemia with hemolytic anemia There is risk of transfusion reaction, with high benefit of PRBC transfusion especially in with ongoing non-STEMI symptoms on exertion, transfusion is recommended and patient, her daughter and agrees. Total time of the visit including total time spent in counseling or coordination of care, (more than 50% of the total time, spent in obtaining medical information from nurses and other ancillary care providers,explaining to the patient, her and daughter near the bedside about labs, imaging, diagnosis and management), discussion with rn neurosurgical and senior laboratory technician and [facility] transfer line, review of labs and imaging is 30 minutes. 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 NSTEMI with coronary artery disease status post multiple stents: Patient is being admitted in PCU. Heart rate and blood pressure are controlled. EKG shows slight ST depression in inferior lateral leads. Delivery Truck Driver consulted and discussed with Dr. Madera. Troponin HIGH. As per rn neurosurgical seems type II non-STEMI event. She appears hemodynamically stable. Anticoagulation are contraindicated for symptomatic anemia. Continue isosorbide mononitrate. 02/23: Patient hemodynamically stable when she is at rest. Blood pressure is better controlled on losartan. Isolated troponin elevated than yesterday. transfer line called there is still bed not open. 2. 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 She also has history of mediastinal adenopathy for which she had EBUS and biopsy which was nonspecific but malignancy was ruled out. Heme-onc consulted. 02/23: Hemoglobin is stable at 5.6. Discussed with the blood bank, [facility] and blood has been sent to outside facility for specific test. Might take 8 to 24hours. She is on prednisone high-dose 60 mg daily started yesterday. Seen by senior laboratory technician. Parvovirus IgM and IgG are pending. There is still risk of cross-reactivity of blood transfusion and patient's daughter and her knows it. I discussed with multiple physicians in [facility] including correction worker and hospitalist but they think it is the same level of care as here and advised they will not do anything different from here but if family wants superior/tertiary level of care, it will be main campus, [place]. I called her transfer line. 3. 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 Has follow-up appointment 03/01/2021 at [facility] vasculitis clinic for further treatment options regarding her chronic vasculitis. Patient had EBUS with biopsy of mediastinal lymph nodes by Dr. Membreno and was found nonspecific but malignancy was ruled out. Patient denies any hematuria but was found proteinuria per PCP. Possible pulmonary renal disease? 4. Hypertension: Blood pressure fluctuates. Blood pressure goes high when she moves. As mentioned above Other complaints: Hypothyroidism, dyslipidemia: Home medication reconciliation done. DVT prophylaxis-contraindicated with severe anemia with hemolytic anemia Total time of the visit including total time spent in counseling or coordination of care, (more than 50% of the total time, spent in obtaining medical information from nurses and other ancillary care providers,explaining to the patient, her and daughter near the bedside about labs, imaging, diagnosis and management), discussion with rn neurosurgical and senior laboratory technician and [facility] transfer line, review of labs and imaging is 30 minutes. Charges/Coding Visit Charges Inpatient E&M: 16945 Subs Hosp L3
[2021-02-24 11:47] LABS: Anisocytosis 3+; Differential Comment SCANNED; Hypochromasia 1+; Macrocytosis 2+; Microcytosis 1+; Polychromasia 1+
[2021-02-24] MEDS: DiphenhydrAMINE 25 MG Capsule PO (12:41)
--- NOTE | 2021-02-24 15:09 | PCM.PN.CARD ---
Subjective Subjective Patient seen and evaluated at bedside today she had no symptoms of chest pain. She was comfortable sitting in bed. Objective Data Vital Signs: Vital Signs Temp Pulse Resp BP Pulse Ox 99 F 74 18 165/69 H 96 02/24/21 14:26 02/24/21 14:26 02/24/21 14:26 02/24/21 14:02/24/21 14:26 Oxygen Flow Rate (L/min) 4 Oxygen Delivery Method Nasal Cannula Weight: 151 lb 7.321 oz Body Mass Index (BMI) 28.6 Intake & Output: Intake and Output for Last 24 Hours 02/22/21 02/23/21 02/24/21 23:59 23:59 23:59 Intake Total 478.75 / 718.75 1620 / 1620 400 / 400 Balance 478.75 / 718.75 1620 / 1620 400 / 400 Lab / Micro Data Result Diagrams: 02/24/21 06:30 02/24/21 06:30 Labs: Laboratory Results - last 24 hr 02/22/21 01:10: Blood Type A POSITIVE, Antibody Screen POSITIVE H, Antibody Identification WARM AUTOANTIBODY, Crossmatch See Detail 02/24/21 06:30: WBC 16.4 H, RBC 1.63 L, Hgb 5.5 L*, Hct 17.2 L, MCV 105.5 H, MCH 33.7 H, MCHC 32.0, RDW Std Deviation 92.7 H, RDW Coeff of Martha 26.5 H, Plt Count 390, MPV 9.7, Immature Gran % (Auto) 3.400 H, Neut % (Auto) 72.0 H, Lymph % (Auto) 16.6 L, [place] % (Auto) 7.3, Eos % (Auto) 0.3, Baso % (Auto) 0.4, Absolute Neuts (auto) 11.8 H, Absolute Lymphs (auto) 2.72, Nucleated RBC % 1.8, Differential Comment SCANNED, Diff Path Review May foll, Polychromasia 1+, Hypochromasia 1+, Anisocytosis 3+, Microcytosis 1+, Macrocytosis 2+, Retic Count 15.67 H, Immature Retic Fraction 40.10 H, Retic Hgb Equivalent 36.0 H 02/24/21 06:30: Sodium 137, Potassium 3.8, Chloride 103, Carbon Dioxide 28.0, Anion Gap 6, BUN 27 H, Creatinine 0.96, Estim Creat Clear Calc 33.51, Est GFR (MDRD) Af Amer 72, Est GFR (MDRD) Non-Af 59 L, BUN/Creatinine Ratio 28.2 H, Glucose 108 H, Calcium 8.3 L, Total Bilirubin 2.00 H, AST 56 H, ALT 20, Alkaline Phosphatase 75, Total Protein 7.9, Albumin 2.8 L, Globulin 5.1 H, Albumin/Globulin Ratio 0.5 L, Folate 46.70 Micro: Microbiology 02/24/21 Unknown Stool Stool Occult Blood (LUL) - Final Cardiology Labs/Tests 02/24/21 06:30: WBC 16.4 H, RBC 1.63 L, Hgb 5.5 L*, Hct 17.2 L, MCV 105.5 H, MCH 33.7 H, MCHC 32.0, Plt Count 390, MPV 9.7, Immature Gran % (Auto) 3.400 H, Neut % (Auto) 72.0 H, Lymph % (Auto) 16.6 L, 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 This is type II NH, contributing factor is her underlying coronary atherosclerosis with the anemia. Patient await for transfer to [facility]/tertiary cardiac facility We will continue current medical treatment and once stable on following discharge to follow-up with her primary internist medical doctor md Dr. Madera
[2021-02-24] MEDS: Calcium Carbonate 500 MG Tablet PO (17:50)
[2021-02-24] MEDS: Atorvastatin Calcium 40 MG Tablet PO (21:57)
[2021-02-25] VITALS (11 sets, daily range): BP systolic 157–176; BP diastolic 55–80; PULSE 51–70; RESP 18; TEMP 36.4–37.4; O2SAT 94–98
[2021-02-25] MEDS: Levothyroxine 100 MCG Tablet PO (05:00)
[2021-02-25 05:39] LABS: Absolute Lymphocyte Count 2.72 X10^3/uL (0.83-4.51); Absolute Neutrophil Count 9.9 X10^3/uL (2.0-7.7); Basophil# 0.04 X10^3/uL; Basophil% 0.3 % (0-1); Eosinophil# 0.05 X10^3/uL; Eosinophils% 0.3 % (0-5); Hematocrit 25.8 % (37-47); Hemoglobin 8.1 g/dL (12.0-15.0); Lymphocyte # 2.72 X10^3/ul (0.83-4.51); Mean Corp Hgb Conc 31.4 g/dL (32-36); Mean Corpuscular Hgb 31.2 pg (27.0-32.0); Mean Corpuscular Volume 99.2 fL (81-99); Mean Platelet Vol. 9.4 fl (6.2-12.0); Monocyte# 1.17 X10^3/uL; Monocyte% 8.2 % (0-10); NRBC Flagged by Analyzer 3.3 % (0-5); Neutrophil # 9.89 X10^3/uL (2.7-7.7); Neutrophil % 68.9 % (47-70); POSITIVE MORPHOLOGY YES; Platelet Count 329 K/mm3 (150-450); RBC Distribution Width CV 22.9 % (11.6-14.6); RBC Distribution Width SD 69.7 fl (35.1-43.9); RET-HE 36.7 pg (30-35); Reticulocyte Count 11.91 % (0.5-1.5); White Blood Count 14.3 K/mm3 (4.4-11.0)
[2021-02-25 05:46] LABS: Differential Indicated SCAN CRITERIA MET
[2021-02-25 06:21] LABS: Anisocytosis 1+; Differential Comment SCANNED; Hypochromasia RARE; Macrocytosis 1+; Microcytosis RARE; Polychromasia RARE
[2021-02-25 06:25] LABS: ALB/GLOB Ratio 0.6 RATIO (0.9-2.4); AST(SGOT) 51 U/L (15-37); Alanine Aminotransfer ALT/SGPT 18 U/L (13-56); Albumin, Serum 2.7 g/dL (3.2-5.0); Alkaline Phosphatase 74 U/L (45-117); Anion Gap 3 (5-15); BUN 29 mg/dL (7-18); BUN/Creat Ratio 30.6 RATIO (10-20); Calcium,Total 8.2 mg/dL (8.5-10.1); Chloride 105 mmol/L (98-107); Creatinine, Serum 0.95 mg/dL (0.55-1.02); EST Glomerular Filtration Rate 60 mL/min (>60); Est Glom Filt Rate - Afr Amer 72 mL/min (>60); Estimated Creatinine Clearance 33.86 ml/min; Globulin 4.9 g/dL (2.2-4.2); Glucose 104 mg/dL (74-106); LDH 356 U/L (84-246); Potassium 3.9 mmol/L (3.5-5.1); Protein, Total 7.6 g/dL (6.4-8.2); Sodium Level 137 mmol/L (136-145)
[2021-02-25] MEDS: Folic Acid 1 MG Tablet 0.5 MG PO (07:52)
[2021-02-25] MEDS: predniSONE 20 MG Tablet 60 MG PO (07:52)
[2021-02-25] MEDS: Potassium Chloride Oral Tablet 10 MEQ PO (07:52)
[2021-02-25] MEDS: 0.9% Saline Lock 10 ML Syringe IV ×2 (07:53→11:05)
[2021-02-25] MEDS: Metoprolol(XL)Succ 50 MG Tablet PO (10:21)
[2021-02-25] MEDS: Isosorbide Mononitrate 30 MG Tablet PO ×2 (10:21→20:52)
[2021-02-25] MEDS: Losartan Potassium 50 MG Tablet PO ×2 (10:21→16:55)
[2021-02-25] MEDS: Ascorbic Acid 500 MG Tablet PO (10:21)
[2021-02-25] MEDS: Calcium Carbonate 500 MG Tablet 1000 MG PO (11:04)
[2021-02-25] MEDS: Furosemide 40 MG/4 ML Vial IV (11:05)
--- NOTE | 2021-02-25 13:29 | PN.HOSP_ITS ---
Subjective Subjective Patient had 2 units of PRBC transfusion without transfusion reaction, rash or shortness of breath. Temperature 99.3 ?F. Blood pressure elevated 172/58. Pulse ox 94% on 4 L of oxygen. Patient felt mild chest discomfort yesterday night without shortness of breath. Hemoglobin improved to 8.1 after 2 units of PRBC transfusion. Objective Data Objective Data Vital Signs: Vital Signs Temp Pulse Resp BP Pulse Ox 99.3 F H 70 18 172/58 H 94 02/25/21 10:17 02/25/21 10:21 02/25/21 10:17 02/25/21 10:02/25/21 10:17 Oxygen Flow Rate (L/min) 4 Oxygen Delivery Method Nasal Cannula Weight: 151 lb 7.321 oz Body Mass Index (BMI) 28.6 Intake & Output: Intake and Output for Last 24 Hours 02/23/21 02/24/21 02/25/21 23:59 23:59 23:59 Intake Total 1620 / 1620 910 / 1150 990 / 990 Output Total 2800 / 2800 Balance 1620 / 1620 910 / 1150 -1810 / -1810 Lab / Micro Data Result Diagrams: 02/25/21 04:45 02/25/21 04:45 Labs: Laboratory Results - last 24 hr 02/22/21 01:10: Blood Type A POSITIVE, Antibody Screen POSITIVE H, Antibody Identification WARM AUTOANTIBODY, Crossmatch See Detail 02/25/21 04:45: WBC 14.3 H, RBC 2.60 L, Hgb 8.1 L, Hct 25.8 L, MCV 99.2 H D, MCH 31.2, MCHC 31.4 L, RDW Std Deviation 69.7 H, RDW Coeff of Martha 22.9 H, Plt Count 329, MPV 9.4, Immature Gran % (Auto) 3.300 H, Neut % (Auto) 68.9, Lymph % (Auto) 19.0, [place] % (Auto) 8.2, Eos % (Auto) 0.3, Baso % (Auto) 0.3, Absolute Neuts (auto) 9.9 H, Absolute Lymphs (auto) 2.72, Nucleated RBC % 3.3, Differential Comment SCANNED, Polychromasia RARE, Hypochromasia RARE, Anisocytosis 1+, Microcytosis RARE, Macrocytosis 1+, Retic Count 11.91 H, Immature Retic Fraction 39.40 H, Retic Hgb Equivalent 36.7 H 02/25/21 04:45: Sodium 137, Potassium 3.9, Chloride 105, Carbon Dioxide 29.0, Anion Gap 3 L, BUN 29 H, Creatinine 0.95, Estim Creat Clear Calc 33.86, Est GFR (MDRD) Af Amer 72, Est GFR (MDRD) Non-Af 60, BUN/Creatinine Ratio 30.6 H, Glucose 104, Calcium 8.2 L, Total Bilirubin 2.20 H, AST 51 H, ALT 18, Alkaline Phosphatase 74, Lactate Dehydrogenase 356 H, Total Protein 7.6, Albumin 2.7 L, Globulin 4.9 H, Albumin/Globulin Ratio 0.6 L Micro: Microbiology 02/24/21 Unknown Stool Stool Occult Blood (LUL) - Final 02/21/21 22:52 Nasal Secretion SARS-CoV-2 Antigen (Rapid) - Final Physical Exam Narrative General: Alert, Oriented x3, Cooperative HEENT: Atraumatic, PERRLA, EOMI, Normocephalic Oral: No Gingival or Mucosal Lesions/ Ulcerations Neck: Supple, No JVD, Negative Carotid Bruits Lungs: Air entry diminished in posterior half left lung, left pleural effusion. Mild crepitation on the right lung base. No dyspnea at rest. Cardiovascular: Regular sinus rhythm, Normal S1, Normal S2, systolic murmur over left second ICS. Abdomen: Bowel Sounds Present, Soft, Non Tender, Non-Distended : No renal angle tenderness. No suprapubic tenderness. Extremities: No edema, Capillary Refill Less than 3 Seconds Skin: No rashes, No breakdown. Varicose veins. Musculoskeletal: No Tenderness to Palpation of Joints or Extremities Neurological: Cranial nerves II-XII grossly intact, DTR 2+/4 and Symmetrical, Neuro grossly intact Psych/Mental Status: Normal Affect, Appropriate. 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 NSTEMI with coronary artery disease status post multiple stents: Patient is being admitted in PCU. Heart rate and blood pressure are controlled. EKG shows slight ST depression in inferior lateral leads. Biscuit Machine Operator consulted and discussed with Dr. Madera. Troponin HIGH. As per wellness program coordinator seems type II non-STEMI event. She appears hemodynamically stable. Anticoagulation are contraindicated for symptomatic anemia. Continue isosorbide mononitrate. 02/25: Mild crepitation on right lung base probably due to 2 units of PRBC transfusion. Lasix 40 mg IV ordered. I talked to the patient's grandson who is orthopedic surgeon in [place]. I explained hospital course, hemolytic anemia, non-STEMI probably to type II demand ischemia and P ANCA vasculitis which is still unexplored. Still there is no bed available in main campus. I called [facility] clinical information patient was put on waiting list for evaluation of non-STEMI. 2. 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 She also has history of mediastinal adenopathy for which she had EBUS and biopsy which was nonspecific but malignancy was ruled out. Heme-onc consulted. 02/25: Posttransfusion hemoglobin 8.1 after 2 units of PRBC transfusion from 5.5. No adverse transfusion reaction. Improvement in reticulocyte count and immature reticulocyte fraction. Parvo B19 IgM and IgG are still pending. LDH 356 slight increase but overall stable. 3. 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 Has follow-up appointment 03/01/2021 at [facility] vasculitis clinic for further treatment options regarding her chronic vasculitis. Patient had EBUS with biopsy of mediastinal lymph nodes by Dr. Membreno and was found nonspecific but malignancy was ruled out. Patient denies any hematuria but was found proteinuria per PCP. Possible pulmonary renal disease? 4. Hypertension: Blood pressure fluctuates. Blood pressure goes high when she moves. As mentioned above 02/25: Blood pressure elevated. On losartan 50 mg daily. Patient had Lasix and will reevaluate if further need up titration of antihypertensive medication Other complaints: Hypothyroidism, dyslipidemia: Home medication reconciliation done. DVT prophylaxis-contraindicated with severe anemia with hemolytic anemia Total time of the visit including total time spent in counseling or coordination of care, (more than 50% of the total time, spent in obtaining medical information from nurses and other ancillary care providers,explaining to the patient, her and daughter near the bedside about labs, imaging, diagnosis and management), discussion with wellness program coordinator and community health outreach worker and, Stella Jehovah'S Witness transfer line discussion with patient's grandson is 30 minutes Charges/Coding Visit Charges Inpatient E&M: 70989 Subs Hosp L3
--- NOTE | 2021-02-25 13:47 | PCM.PN.CARD ---
Subjective Subjective Patient seen and evaluated bedside today, feeling better Mild symptoms of shortness of breath Objective Data Vital Signs: Vital Signs Temp Pulse Resp BP Pulse Ox 99.3 F H 70 18 172/58 H 94 02/25/21 10:17 02/25/21 10:21 02/25/21 10:17 02/25/21 10:17 02/25/21 10:17 Oxygen Flow Rate (L/min) 4 Oxygen Delivery Method Nasal Cannula Weight: 151 lb 7.321 oz Body Mass Index (BMI) 28.6 Intake & Output: Intake and Output for Last 24 Hours 02/23/21 02/24/21 02/25/21 23:59 23:59 23:59 Intake Total 1620 / 1620 910 / 1150 990 / 990 Output Total 2800 / 2800 Balance 1620 / 1620 910 / 1150 -1810 / -1810 Lab / Micro Data Result Diagrams: 02/25/21 04:45 02/25/21 04:45 Labs: Laboratory Results - last 24 hr 02/22/21 01:10: Blood Type A POSITIVE, Antibody Screen POSITIVE H, Antibody Identification WARM AUTOANTIBODY, Crossmatch See Detail 02/25/21 04:45: WBC 14.3 H, RBC 2.60 L, Hgb 8.1 L, Hct 25.8 L, MCV 99.2 H D, MCH 31.2, MCHC 31.4 L, RDW Std Deviation 69.7 H, RDW Coeff of Martha 22.9 H, Plt Count 329, MPV 9.4, Immature Gran % (Auto) 3.300 H, Neut % (Auto) 68.9, Lymph % (Auto) 19.0, [place] % (Auto) 8.2, Eos % (Auto) 0.3, Baso % (Auto) 0.3, Absolute Neuts (auto) 9.9 H, Absolute Lymphs (auto) 2.72, Nucleated RBC % 3.3, Differential Comment SCANNED, Polychromasia RARE, Hypochromasia RARE, Anisocytosis 1+, Microcytosis RARE, Macrocytosis 1+, Retic Count 11.91 H, Immature Retic Fraction 39.40 H, Retic Hgb Equivalent 36.7 H 02/25/21 04:45: Sodium 137, Potassium 3.9, Chloride 105, Carbon Dioxide 29.0, Anion Gap 3 L, BUN 29 H, Creatinine 0.95, Estim Creat Clear Calc 33.86, Est GFR (MDRD) Af Amer 72, Est GFR (MDRD) Non-Af 60, BUN/Creatinine Ratio 30.6 H, Glucose 104, Calcium 8.2 L, Total Bilirubin 2.20 H, AST 51 H, ALT 18, Alkaline Phosphatase 74, Lactate Dehydrogenase 356 H, Total Protein 7.6, Albumin 2.7 L, Globulin 4.9 H, Albumin/Globulin Ratio 0.6 L Micro: Microbiology 02/24/21 Unknown Stool Stool Occult Blood (LUL) - Final Cardiology Labs/Tests 02/25/21 04:45: WBC 14.3 H, RBC 2.60 L, Hgb 8.1 L, Hct 25.8 L, MCV 99.2 H D, MCH 31.2, MCHC 31.4 L, Plt Count 329, MPV 9.4, Immature Gran % (Auto) 3.300 H, Neut % (Auto) 68.9, Lymph % (Auto) 19.0, [place] % (Auto) 8.2, Eos % (Auto) 0.3, Baso % (Auto) 0.3, Absolute Neuts (auto) 9.9 H, Nucleated RBC % 3.3 02/25/21 04:45: Sodium 137, Potassium 3.9, Chloride 105, Carbon Dioxide 29.0, Anion Gap 3 L, BUN 29 H, Creatinine 0.95, Est GFR (MDRD) Af Amer 72, Est GFR (MDRD) Non-Af 60, BUN/Creatinine Ratio 30.6 H, Glucose 104, Calcium 8.2 L, Total Bilirubin 2.20 H Rhythm: Normal sinus rhythm Physical Exam Narrative Review of the cardiac telemetry revealed normal sinus Cardiac examination S1-S2 normal, no murmur, no systolic or diastolic murmur Chest examination mild bilateral basilar rales Examination abdomen soft Examination lower extremity no lower extremity edema Central nervous system exam no focal neurological deficit. 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 Cardiac recommendation and plan; 1. Continue current medication 2. She has type II IN due to demand ischemia secondary to anemia in addition to pre-existing severe coronary atherosclerosis with multiple coronary artery stents 3. Cardiac care plan has been discussed in detail with the plan of referral to a tertiary cardiac facility and she will be seen and followed by her primary patient scheduling manager Dr. Madera
[2021-02-25] MEDS: Calcium Carbonate 500 MG Tablet PO (15:52)
[2021-02-25] MEDS: Atorvastatin Calcium 40 MG Tablet PO (20:52)
[2021-02-25] MEDS: hydrALAZINE 25 MG Tablet PO (21:01)
[2021-02-26] VITALS (17 sets, daily range): BP systolic 144–171; BP diastolic 50–90; PULSE 49–66; RESP 14–18; TEMP 36.6–37.1; O2SAT 96–99
[2021-02-26 05:56] LABS: Absolute Lymphocyte Count 2.71 X10^3/uL (0.83-4.51); Absolute Neutrophil Count 11.3 X10^3/uL (2.0-7.7); Basophil# 0.05 X10^3/uL; Basophil% 0.3 % (0-1); Eosinophil# 0.07 X10^3/uL; Eosinophils% 0.4 % (0-5); Hematocrit 28.8 % (37-47); Hemoglobin 9.7 g/dL (12.0-15.0); Lymphocyte # 2.71 X10^3/ul (0.83-4.51); Lymphocyte % 17.4 % (19-41); Mean Corp Hgb Conc 33.7 g/dL (32-36); Mean Corpuscular Hgb 32.9 pg (27.0-32.0); Mean Corpuscular Volume 97.6 fL (81-99); Mean Platelet Vol. 9.2 fl (6.2-12.0); Monocyte# 1.17 X10^3/uL; Monocyte% 7.5 % (0-10); NRBC Flagged by Analyzer 1.6 % (0-5); Neutrophil # 11.25 X10^3/uL (2.7-7.7); Neutrophil % 72.1 % (47-70); POSITIVE MORPHOLOGY YES; Platelet Count 350 K/mm3 (150-450); RBC Distribution Width CV 23.6 % (11.6-14.6); RBC Distribution Width SD 70.5 fl (35.1-43.9); Red Blood Count 2.95 M/mm3 (4.2-5.4); White Blood Count 15.6 K/mm3 (4.4-11.0)
[2021-02-26] MEDS: Levothyroxine 100 MCG Tablet PO (06:03)
[2021-02-26] MEDS: hydrALAZINE 25 MG Tablet PO (06:15)
[2021-02-26 06:26] LABS: ALB/GLOB Ratio 0.6 RATIO (0.9-2.4); AST(SGOT) 52 U/L (15-37); Alanine Aminotransfer ALT/SGPT 21 U/L (13-56); Alkaline Phosphatase 81 U/L (45-117); Anion Gap 6 (5-15); BUN 30 mg/dL (7-18); BUN/Creat Ratio 31.1 RATIO (10-20); Calcium,Total 8.2 mg/dL (8.5-10.1); Chloride 102 mmol/L (98-107); Creatinine, Serum 0.96 mg/dL (0.55-1.02); EST Glomerular Filtration Rate 59 mL/min (>60); Est Glom Filt Rate - Afr Amer 71 mL/min (>60); Estimated Creatinine Clearance 33.51 ml/min; Globulin 5.4 g/dL (2.2-4.2); Glucose 98 mg/dL (74-106); Potassium 3.4 mmol/L (3.5-5.1); Protein, Total 8.4 g/dL (6.4-8.2); Sodium Level 137 mmol/L (136-145)
[2021-02-26 06:56] LABS: Differential Indicated SCAN CRITERIA MET
[2021-02-26 07:03] LABS: Anisocytosis 2+; Polychromasia 1+
[2021-02-26 08:22] LABS: Magnesium 2.1 mg/dL (1.6-2.6); Troponin-I HS 538 pg/mL (3.0-54.0)
[2021-02-26 08:32] LABS: Phosphorus 2.3 mg/dL (2.5-4.9)
[2021-02-26 08:53] LABS: Vitamin B12 440 pg/mL (211-911)
[2021-02-26] MEDS: Losartan Potassium 50 MG Tablet PO (09:09)
[2021-02-26] MEDS: Metoprolol(XL)Succ 50 MG Tablet PO (09:09)
[2021-02-26] MEDS: Folic Acid 1 MG Tablet 0.5 MG PO (09:10)
[2021-02-26] MEDS: predniSONE 20 MG Tablet 60 MG PO (09:12)
[2021-02-26] MEDS: Isosorbide Mononitrate 30 MG Tablet PO ×2 (09:12→22:12)
[2021-02-26] MEDS: Ascorbic Acid 500 MG Tablet PO (09:13)
[2021-02-26] MEDS: 0.9% Saline Lock 10 ML Syringe IV ×2 (09:19→22:26)
[2021-02-26] MEDS: Potassium Chloride Oral Tablet 20 MEQ 40 MEQ PO (09:20)
[2021-02-26] MEDS: hydroCHLOROthiazide 25 MG Tablet PO (09:20)
--- NOTE | 2021-02-26 09:58 | PN.CARD_ITS ---
Subjective Subjective The patient is awake and alert. She states since receiving PRBCs she does feel better overall. She states she has not been out of bed other than the bedside commode. Thus she does not know how she will feel when she is up and ambulating. Objective Data Vital Signs: Vital Signs Temp Pulse Resp BP Pulse Ox 98.2 F 59 L 14 160/90 H 99 02/26/21 09:01 02/26/21 09:09 02/26/21 09:01 02/26/21 09:01 02/26/21 09:01 Oxygen Flow Rate (L/min) 4 Oxygen Delivery Method Nasal Cannula Weight: 151 lb 7.321 oz Body Mass Index (BMI) 28.6 Intake & Output: Intake and Output for Last 24 Hours 02/24/21 02/25/21 02/26/21 23:59 23:59 23:59 Intake Total 910 / 1150 1640 / 1640 350 / 350 Output Total 6350 / 6350 400 / 400 Balance 910 / 1150 -4710 / -4710 -50 / -50 Lab / Micro Data Result Diagrams: 02/26/21 05:40 02/26/21 05:40 Labs: Laboratory Results - last 24 hr 02/22/21 01:10: Crossmatch See Detail 02/22/21 01:10: Antibody Identification Not Reportable 02/24/21 06:30: Vitamin B12 440 02/26/21 05:40: WBC 15.6 H, RBC 2.95 L, Hgb 9.7 L, Hct 28.8 L, MCV 97.6, MCH 32.9 H, MCHC 33.7 D, RDW Std Deviation 70.5 H, RDW Coeff of Martha 23.6 H, Plt Count 350, MPV 9.2, Immature Gran % (Auto) 2.300 H, Neut % (Auto) 72.1 H, Lymph % (Auto) 17.4 L, [place] % (Auto) 7.5, Eos % (Auto) 0.4, Baso % (Auto) 0.3, Absolute Neuts (auto) 11.3 H, Absolute Lymphs (auto) 2.71, Nucleated RBC % 1.6, Polychromasia 1+, Anisocytosis 2+ 02/26/21 05:40: Sodium 137, Potassium 3.4 L, Chloride 102, Carbon Dioxide 29.0, Anion Gap 6, BUN 30 H, Creatinine 0.96, Estim Creat Clear Calc 33.51, Est GFR (MDRD) Af Amer 71, Est GFR (MDRD) Non-Af 59 L, BUN/Creatinine Ratio 31.1 H, Glucose 98, Calcium 8.2 L, Total Bilirubin 3.10 H, AST 52 H, ALT 21, Alkaline Phosphatase 81, Total Protein 8.4 H, Albumin 3.0 L, Globulin 5.4 H, Albumin/Globulin Ratio 0.6 L 02/26/21 05:40: Magnesium 2.1, Troponin I High Sens 538 H* 02/26/21 05:40: Phosphorus 2.3 L Cardiology Labs/Tests 02/26/21 05:40: WBC 15.6 H, RBC 2.95 L, Hgb 9.7 L, Hct 28.8 L, MCV 97.6, MCH 32.9 H, MCHC 33.7 D, Plt Count 350, MPV 9.2, Immature Gran % (Auto) 2.300 H, Neut % (Auto) 72.1 H, Lymph % (Auto) 17.4 L, [place] % (Auto) 7.5, Eos % (Auto) 0.4, Baso % (Auto) 0.3, Absolute Neuts (auto) 11.3 H, Nucleated RBC % 1.6 02/26/21 05:40: Sodium 137, Potassium 3.4 L, Chloride 102, Carbon Dioxide 29.0, Anion Gap 6, BUN 30 H, Creatinine 0.96, Est GFR (MDRD) Af Amer 71, Est GFR (MDRD) Non-Af 59 L, BUN/Creatinine Ratio 31.1 H, Glucose 98, Calcium 8.2 L, T otal Bilirubin 3.10 H 02/26/21 05:40: Magnesium 2.1 02/26/21 05:40: Phosphorus 2.3 L Rhythm: Sinus rhythm Physical Exam Const alert, oriented x3 and no apparent distress Orientation / Consciousness: awake HEENT normocephalic, head/scalp atraumatic and hearing grossly normal bilaterally Eyes PERRL, EOMs intact bilaterally and conjunctivae normal Neck full ROM, supple and no JVD Resp normal respiratory effort and clear to auscultation bilaterally Cardio regular rate, regular rhythm, S1 normal heart sound and S2 normal heart sound GI normal to inspection, nondistended, normoactive bowel sounds Extremity no pedal edema Skin no rashes or lesions noted Psych mental status grossly normal Assessment & Plan Assessment/Plan (1) Non-ST elevation (NSTEMI) myocardial infarction: PLAN: The patient's non-STEMI appears compatible with a type II event brought out by her marked anemia superimposed upon underlying cardiovascular disease process. The patient feels better since receiving PRBCs. At the moment she will continue medical therapy with adjustment as deemed appropriate. There are no immediate plans for additional noninvasive/invasive cardiovascular testing at this time at this institution. (2) Atherosclerotic heart disease of [place] coronary artery without angina pectoris: QUALIFIERS: [place] vs. transplanted heart: [place] heart Qualified Code(s): I25.10 - Atherosclerotic heart disease of [place] coronary artery without angina pectoris PLAN: The patient has a history of underlying CAD. As noted previously he if the patient requires additional invasive cardiovascular evaluation or care it was felt, based upon her underlying anatomy and previous PCI procedures, that this would be performed at a tertiary care center for either additional high risk PCI or consideration for CABG. (3) History of percutaneous transluminal coronary angioplasty: PLAN: As per the patient's previous PCI report it was not felt she was a candidate for additional RCA PCI at this institution. Thus depending upon her clinical course if she would need repeat invasive valuation would be considered to be done at a tertiary care center as noted above. (4) Valvular heart disease: PLAN: The patient will continue noninvasive evaluation and care as deemed appropriate. (5) Hyperlipidemia: QUALIFIERS: Hyperlipidemia type: unspecified Qualified Code(s): E78.5 - Hyperlipidemia, unspecified PLAN: The patient will continue risk factor modification medical therapy as tolerated. (6) Essential hypertension: PLAN: The patient's blood pressure does wax and wane. Her medications are being adjusted to try and keep her blood pressure under better control. In the past once the patient has been home her blood pressures have decreased in her medications and had to be readjusted. (7) Anemia: PLAN: The patient did receive PRBCs. She is been recommended for further evaluation of an underlying vasculitis and concerns of a hemolytic anemia. She is pending transfer to a tertiary care center (she has been accepted by more than 1 pending bed status) for further evaluation and care. Addt'l Comments Overall, at the present time, from a cardiac standpoint, the patient will continue medical management. She will need to be up and ambulating to monitor her symptoms now that her H&H i s improved. She continues pending transfer to 1 of multiple tertiary care centers depending upon bed availability for further evaluation care of concerns of vasculitis and hemolytic anemia. The patient's case has been discussed and reviewed with the patient and Dr. Bob. This note was generated using a voice recognition system and there may be incorrect words, spelling or punctuation that were not noted when reviewing the office note prior to saving.
[2021-02-26] MEDS: hydrALAZINE 50 MG Tablet PO ×2 (13:09→22:12)
[2021-02-26 13:17] LABS: Pathologist Review Reviewed
[2021-02-26 13:23] LABS: Pathologist Review Reviewed
[2021-02-26] MEDS: Calcium Carbonate 500 MG Tablet 1000 MG PO (13:36)
--- NOTE | 2021-02-26 15:32 | CASEMGMT ---
RN CM Face to Face with patient for initial transition planning/care coordination assessment. RN CM introduced self and role at [facility]. Patient sitting in chair, alert and oriented. Patient willing to participate in assessment and is able to answer all questions appropriately. Care providers, pharmacy, and demographics verified. Patient wishes to discharge home, denies need for home health at this time. Patient states she has no further needs or concerns at this time. CM to follow for discharge planning needs that may arise. PCP: Stephenie Specialists: Haseeb, auto winder; Cassy, stone polisher machine Preferred [facility]acy: [facility] Insurance: [employer] Prescription Benefit: yes Living Will/HPOA: yes, , Kedar Jean LNOK: husbadn, daughter Living Arrangements: Patient lives with in a single story home with 1 step to enter. Patient states she is independent at home. Transportation: self/ DME/HHC: Patient states she has grab bars and home oxgyen 4 lpm with portability through [employer]. Patient denies previous HHC. Disposition Plan: Patient to discharge home with family support and follow-up plans in place. Sharon HUSTON, RN, CM
[2021-02-26] MEDS: Calcium Carbonate 500 MG Tablet PO (15:49)
--- NOTE | 2021-02-26 16:04 | NURSING ---
This RN reviewed SN charting and was with SN during all med passes.
--- NOTE | 2021-02-26 16:37 | PN.HOSP_ITS ---
Subjective Subjective Patient blood pressure high 171/52 even on increased dose of losartan. Subsequently HCTZ 25 mg started in the morning her blood pressure is better at 144/58. Discussed with linux kernel developer and advised supervised walking in presence of aide. Objective Data Objective Data Vital Signs: Vital Signs Temp Pulse Resp BP Pulse Ox 98.8 F 66 16 144/58 H 97 02/26/21 15:46 02/26/21 15:46 02/26/21 15:46 02/26/21 15:46 02/26/21 15:46 Oxygen Flow Rate (L/min) [ 4 AMBULATING with Oxygen #1] Oxygen Flow Rate (L/min) [At 4 REST with Oxygen] Oxygen Flow Rate (L/min) 4 Oxygen Delivery Method Nasal Cannula Weight: 151 lb 7.321 oz Body Mass Index (BMI) 28.6 Intake & Output: Intake and Output for Last 24 Hours 02/24/21 02/25/21 02/26/21 23:59 23:59 23:59 Intake Total 910 / 1150 1640 / 1640 750 / 750 Output Total 6350 / 6350 400 / 400 Balance 910 / 1150 -4710 / -4710 350 / 350 Medical Nutrition Assessment Dietitian: Malnutrition Criteria Met Start: 02/25/21 14:42 Freq: Status: Active Protocol: Document 02/25/21 14:42 AG (Rec: 02/25/21 14:42 [id number]) Nutrition Malnutrition Evidence of Malnutrition Exists Yes Malnutrition (severe): Chronic Evidenced By Suboptimal Energy Intake ( Severe),Weight Loss (Severe) Clinical Problem Chronic Disease or Condition Related Malnutrition Etiology severe malnutrition r/t inadequate energy intake d/t decreased appetite Signs/Symptoms as evidenced by unintentional wt loss of 18.5#/11% x 3 months, estimated energy intake meeting <75% of estimated nutritional needs >6 weeks Status Active Problem Recommendation Dietitian Recommendations/Changes Continue cardiac diet; will add 120mL Ensure Enlive BID w/ lunch and dinner d/t signs/ symptoms of malnutrition. Lab / Micro Data Result Diagrams: 02/26/21 05:40 02/26/21 05:40 Labs: Laboratory Results - last 24 hr 02/22/21 01:10: Blood Type A POSITIVE, Antibody Screen POSITIVE H, Antibody Identification WARM AUTOANTIBODY, Crossmatch See Detail 02/22/21 01:10: Antibody Identification Not Reportable 02/23/21 10:40: Diff Path Review Reviewed 02/24/21 06:30: Diff Path Review Reviewed 02/24/21 06:30: Vitamin B12 440 02/26/21 05:40: WBC 15.6 H, RBC 2.95 L, Hgb 9.7 L, Hct 28.8 L, MCV 97.6, MCH 32.9 H, MCHC 33.7 D, RDW Std Deviation 70.5 H, RDW Coeff of Martha 23.6 H, Plt Count 350, MPV 9.2, Immature Gran % (Auto) 2.300 H, Neut % (Auto) 72.1 H, Lymph % (Auto) 17.4 L, [place] % (Auto) 7.5, Eos % (Auto) 0.4, Baso % (Auto) 0.3, Absolute Neuts (auto) 11.3 H, Absolute Lymphs (auto) 2.71, Nucleated RBC % 1.6, Polychromasia 1+, Anisocytosis 2+ 02/26/21 05:40: Sodium 137, Potassium 3.4 L, Chloride 102, Carbon Dioxide 29.0, Anion Gap 6, BUN 30 H, Creatinine 0.96, Estim Creat Clear Calc 33.51, Est GFR (MDRD) Af Amer 71, Est GFR (MDRD) Non-Af 59 L, BUN/Creatinine Ratio 31.1 H, Glucose 98, Calcium 8.2 L, Total Bilirubin 3.10 H, AST 52 H, ALT 21, Alkaline Phosphatase 81, Total Protein 8.4 H, Albumin 3.0 L, Globulin 5.4 H, Albumin/Globulin Ratio 0.6 L 02/26/21 05:40: Magnesium 2.1, Troponin I High Sens 538 H* 02/26/21 05:40: Phosphorus 2.3 L Micro: Microbiology 02/24/21 Unknown Stool Stool Occult Blood (LUL) - Final 02/21/21 22:52 Nasal Secretion SARS-CoV-2 Antigen (Rapid) - Final Physical Exam Narrative General: Alert, Oriented x3, Cooperative HEENT: Atraumatic, PERRLA, EOMI, Normocephalic Oral: No Gingival or Mucosal Lesions/ Ulcerations Neck: Supple, No JVD, Negative Carotid Bruits Lungs: Air entry diminished in posterior half left lung, left pleural effusion. No crepitation. No dyspnea at rest. Cardiovascular: Regular sinus rhythm, Normal S1, Normal S2, systolic murmur over left second ICS. Abdomen: Bowel Sounds Present, Soft, Non Tender, Non-Distended : No renal angle tenderness. No suprapubic tenderness. Extremities: No edema, Capillary Refill Less than 3 Seconds Skin: No rashes, No breakdown. Varicose veins. Musculoskeletal: No Tenderness to Palpation of Joints or Extremities Neurological: Cranial nerves II-XII grossly intact, DTR 2+/4 and Symmetrical, Neuro grossly intact Psych/Mental Status: Normal Affect, Appropriate. Const General Appearance: cooperative Eyes no scleral icterus Neck General: trachea midline Resp normal respiratory effort and normal air movement Cardio peripheral pulses 2+ throughout Heart Sounds: murmur systolic II/ soft GI soft to palpation and non-tender Extremity normal capillary refill and no clubbing, cyanosis or edema General Extremity: no tenderness to palpation of joints or extremities Skin General Skin Exam: no breakdown and turgor normal Lesions: no lesions Rashes: no rashes Neuro Speech: speech normal Motor Exam: Negative for general weakness Psych thought process normal, cooperative and affect normal Appearance: appropriate Assessment & Plan Assessment/Plan (1) Non-ST elevation (NSTEMI) myocardial infarction: (2) Hemolytic anemia: 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 NSTEMI with coronary artery disease status post multiple stents: Patient is being admitted in PCU. Heart rate and blood pressure are controlled. EKG shows slight ST depression in inferior lateral leads. Graphic Illustrator co nsulted and discussed with Dr. Madera. Troponin HIGH. As per linux kernel developer seems type II non-STEMI event. She appears hemodynamically stable. Anticoagulation are contraindicated for symptomatic anemia. Continue isosorbide mononitrate. 02/23: Patient hemodynamically stable when she is at rest. Blood pressure is better controlled on losartan. Isolated troponin elevated than yesterday. transfer line called there is still bed not open. 02/26: Advised supervised walking. Troponin a.m. repeated and shows downward trend. Patient does not have chest pain or shortness of breath last night. 2. 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 She also has history of mediastinal adenopathy for which she had EBUS and biopsy which was nonspecific but malignancy was ruled out. Heme-onc consulted. 02/23: Hemoglobin is stable at 5.6. Discussed with the blood bank, [facility] and blood has been sent to outside facility for specific test. Might take 8 to 24hours. She is on prednisone high-dose 60 mg daily started yesterday. Seen by warehouse trainer. Parvovirus IgM and IgG are pending. There is still risk of cross-reactivity of blood transfusion and patient's daughter and her knows it. I discussed with multiple physicians in EM including cataract lens generator and hospitalist but they think it is the same level of care as here and advised they will not do anything different from here but if family wants superior/tertiary level of care, it will be [facility] [place] [place]. I called her transfer line. 02/26: Hemoglobin increased to 9.7 from 8.1. I called warehouse trainer for discharge plan regarding dose of prednisone. There is no bed opening in and [facility]. 3. 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 Has follow-up appointment at [facility] vascul[facility] clinic for further treatment options regarding her chronic vasculitis. Patient had EBUS with biopsy of mediastinal lymph nodes by Dr. Membreno and was found nonspecific but malignancy was ruled out. Patient denies any hematuria but was found proteinuria per PCP. Possible pulmonary renal disease? 4. Hypertension: Blood pressure fluctuates. Blood pressure goes high when she moves. As mentioned above 02/26: Blood pressure controlled with increased dose of losartan, hydralazine, nitrate and HCTZ. Other complaints: Hypothyroidism, dyslipidemia: Home medication reconciliation done. DVT prophylaxis-contraindicated with severe anemia with hemolytic anemia Total time of the visit including total time spent in counseling or coordination of care, (more than 50% of the total time, spent in obtaining medical information from nurses and other ancillary care providers,explaining to the patient, her and daughter near the bedside about labs, imaging, diagnosis and management), discussion with linux kernel developer and warehouse trainer and [facility] transfer line, review of labs and imaging is 30 minutes. Charges/Coding Visit Charges Inpatient E&M: 31317 Subs Hosp L2
[2021-02-26 22:01] LABS: PARVOVIRUS B19 IGG 0.3 index (0.0-0.8); PARVOVIRUS B19 IGM 0.1 index (0.0-0.8)
[2021-02-26] MEDS: Atorvastatin Calcium 40 MG Tablet PO (22:12)
[2021-02-27] VITALS (7 sets, daily range): BP systolic 157–171; BP diastolic 46–57; PULSE 46–58; RESP 16–18; TEMP 36.5–36.8; O2SAT 98–99
[2021-02-27 06:04] LABS: Basophil# 0.02 X10^3/uL; Basophil% 0.2 % (0-1); Eosinophil# 0.01 X10^3/uL; Eosinophils% 0.1 % (0-5); Hematocrit 27.1 % (37-47); Hemoglobin 8.9 g/dL (12.0-15.0); Lymphocyte % 13.1 % (19-41); Mean Corp Hgb Conc 32.8 g/dL (32-36); Mean Corpuscular Hgb 32.2 pg (27.0-32.0); Mean Corpuscular Volume 98.2 fL (81-99); Mean Platelet Vol. 9.3 fl (6.2-12.0); Monocyte% 7.7 % (0-10); NRBC Flagged by Analyzer 0.5 % (0-5); Neutrophil % 77.3 % (47-70); POSITIVE MORPHOLOGY YES; Platelet Count 321 K/mm3 (150-450); RBC Distribution Width CV 22.8 % (11.6-14.6); RBC Distribution Width SD 74.8 fl (35.1-43.9); RET-HE 38.1 pg (30-35); Red Blood Count 2.76 M/mm3 (4.2-5.4); Reticulocyte Count 13.21 % (0.5-1.5); White Blood Count 12.9 K/mm3 (4.4-11.0)
[2021-02-27 06:10] LABS: Differential Indicated SCAN CRITERIA MET
[2021-02-27] MEDS: hydrALAZINE 50 MG Tablet PO (06:11)
[2021-02-27] MEDS: Levothyroxine 100 MCG Tablet PO (06:11)
[2021-02-27 06:27] LABS: ALB/GLOB Ratio 0.6 RATIO (0.9-2.4); AST(SGOT) 44 U/L (15-37); Alanine Aminotransfer ALT/SGPT 21 U/L (13-56); Albumin, Serum 2.7 g/dL (3.2-5.0); Alkaline Phosphatase 74 U/L (45-117); Anion Gap 4 (5-15); BUN 31 mg/dL (7-18); BUN/Creat Ratio 34.8 RATIO (10-20); Calcium,Total 8.1 mg/dL (8.5-10.1); Chloride 102 mmol/L (98-107); Creatinine, Serum 0.89 mg/dL (0.55-1.02); EST Glomerular Filtration Rate 64 mL/min (>60); Est Glom Filt Rate - Afr Amer 78 mL/min (>60); Estimated Creatinine Clearance 36.14 ml/min; Globulin 4.9 g/dL (2.2-4.2); Glucose 110 mg/dL (74-106); Potassium 4.4 mmol/L (3.5-5.1); Protein, Total 7.6 g/dL (6.4-8.2); Sodium Level 136 mmol/L (136-145)
[2021-02-27 06:34] LABS: Anisocytosis 1+; Differential Comment SCANNED; Macrocytosis 1+; Microcytosis RARE; Polychromasia RARE
[2021-02-27] MEDS: Potassium Chloride Oral Tablet 20 MEQ 40 MEQ PO (08:49)
[2021-02-27] MEDS: predniSONE 20 MG Tablet 60 MG PO (08:49)
[2021-02-27] MEDS: hydroCHLOROthiazide 25 MG Tablet PO (08:50)
[2021-02-27] MEDS: Isosorbide Mononitrate 30 MG Tablet PO (08:50)
[2021-02-27] MEDS: Metoprolol(XL)Succ 50 MG Tablet PO (08:51)
[2021-02-27] MEDS: Folic Acid 1 MG Tablet 0.5 MG PO (08:51)
--- NOTE | 2021-02-27 08:51 | PCM.PN.CARD ---
Subjective Subjective The patient is awake and alert. She states she has been up and ambulating in her room. She does not describe any acute chest discomfort or difficulty breathing. Objective Data Vital Signs: Vital Signs Temp Pulse Resp BP Pulse Ox 98.2 F 57 L 16 157/50 H 99 02/27/21 08:25 02/27/21 08:25 02/27/21 08:25 02/27/21 08:25 02/27/21 08:25 Oxygen Flow Rate (L/min) [ 4 AMBULATING with Oxygen #1] Oxygen Flow Rate (L/min) [At 4 REST with Oxygen] Oxygen Flow Rate (L/min) 4 Oxygen Delivery Method Nasal Cannula Weight: 151 lb 7.321 oz Body Mass Index (BMI) 28.6 Intake & Output: Intake and Output for Last 24 Hours 02/25/21 02/26/21 02/27/21 23:59 23:59 23:59 Intake Total 1640 / 1640 1360 / 1360 Output Total 6350 / 6350 400 / 400 Balance -4710 / -4710 960 / 960 Lab / Micro Data Result Diagrams: 02/27/21 05:55 02/27/21 05:55 Labs: Laboratory Results - last 24 hr 02/22/21 01:10: Blood Type A POSITIVE, Antibody Screen POSITIVE H, Antibody Identification WARM AUTOANTIBODY, Crossmatch See Detail 02/22/21 16:24: Parvovirus B19 IgG Ab 0.3, Parvovirus B19 IgM Ab 0.1 02/23/21 10:40: Diff Path Review Reviewed 02/24/21 06:30: Diff Path Review Reviewed 02/24/21 06:30: Vitamin B12 440 02/27/21 05:55: WBC 12.9 H, RBC 2.76 L, Hgb 8.9 L, Hct 27.1 L, MCV 98.2, MCH 32.2 H, MCHC 32.8, RDW Std Deviation 74.8 H, RDW Coeff of Martha 22.8 H, Plt Count 321, MPV 9.3, Immature Gran % (Auto) 1.600 H, Neut % (Auto) 77.3 H, Lymph % (Auto) 13.1 L, [place] % (Auto) 7.7, Eos % (Auto) 0.1, Baso % (Auto) 0.2, Absolute Neuts (auto) 10.0 H, Absolute Lymphs (auto) 1.70, Nucleated RBC % 0.5, Differential Comment SCANNED, Polychromasia RARE, Anisocytosis 1+, Microcytosis RARE, Macrocytosis 1+, Retic Count 13.21 H, Immature Retic Fraction 29.90 H, Retic Hgb Equivalent 38.1 H 02/27/21 05:55: Sodium 136, Potassium 4.4, Chloride 102, Carbon Dioxide 30.0, Anion Gap 4 L, BUN 31 H, Creatinine 0.89, Estim Creat Clear Calc 36.14, Est GFR (MDRD) Af Amer 78, Est GFR (MDRD) Non-Af 64, BUN/Creatinine Ratio 34.8 H, Glucose 110 H, Calcium 8.1 L, Total Bilirubin 2.60 H, AST 44 H, ALT 21, Alkaline Phosphatase 74, Total Protein 7.6, Albumin 2.7 L, Globulin 4.9 H, Albumin/Globulin Ratio 0.6 L Cardiology Labs/Tests 02/27/21 05:55: WBC 12.9 H, RBC 2.76 L, Hgb 8.9 L, Hct 27.1 L, MCV 98.2, MCH 32.2 H, MCHC 32.8, Plt Count 321, MPV 9.3, Immature Gran % (Auto) 1.600 H, Neut % (Auto) 77.3 H, Lymph % (Auto) 13.1 L, [place] % (Auto) 7.7, Eos % (Auto) 0.1, Baso % (Auto) 0.2, Absolute Neuts (auto) 10.0 H, Nucleated RBC % 0.5 02/27/21 05:55: Sodium 136, Potassium 4.4, Chloride 102, Carbon Dioxide 30.0, Anion Gap 4 L, BUN 31 H, Creatinine 0.89, Est GFR (MDRD) Af Amer 78, Est GFR (MDRD) Non-Af 64, BUN/Creatinine Ratio 34.8 H, Glucose 110 H, Calcium 8.1 L, Total Bilirubin 2.60 H Rhythm: Sinus rhythm; 1 episode of near regular narrow complex rhythm appearing compatible with an ectopic atrial rhythm/tachycardia Physical Exam Narrative Review of the cardiac telemetry revealed normal sinus Cardiac examination S1-S2 normal, no murmur, no systolic or diastolic murmur Chest examination mild bilateral basilar rales Examination abdomen soft Examination lower extremity no lower extremity edema Central nervous system exam no focal neurological deficit. Const alert, oriented x3 and no apparent distress Orientation / Consciousness: awake HEENT normocephalic, head/scalp atraumatic and hearing grossly normal bilaterally Eyes PERRL, EOMs intact bilaterally and conjunctivae normal Neck full ROM, supple and no JVD Resp normal respiratory effort and clear to auscultation bilaterally Cardio regular rate, regular rhythm, S1 normal heart sound and S2 normal heart sound Heart Sounds: murmur systolic II/ soft left sternal border and LVOT GI normal to inspection, nondistended, normoactive bowel sounds Extremity no pedal edema Skin no rashes or lesions noted Psych mental status grossly normal Assessment & Plan Assessment/Plan (1) Non-ST elevation (NSTEMI) myocardial infarction: PLAN: The patient's non-STEMI appears compatible with a type II event brought out by her marked anemia superimposed upon underlying cardiovascular disease process. The patient feels better since receiving PRBCs. At the moment she will continue medical therapy with adjustment as deemed appropriate. There are no immediate plans for additional noninvasive/invasive cardiovascular testing at this time at this institution. (2) Atherosclerotic heart disease of [place] coronary artery without angina pectoris: QUALIFIERS: [place] vs. transplanted heart: [place] heart Qualified Code(s): I25.10 - Atherosclerotic heart disease of [place] coronary artery without angina pectoris PLAN: The patient has a history of underlying CAD. As noted previously he if the patient requires additional invasive cardiovascular evaluation or care it was felt, based upon her underlying anatomy and previous PCI procedures, that this would be performed at a tertiary care center for either additional high risk PCI or consideration for CABG. (3) History of percutaneous transluminal coronary angioplasty: PLAN: As per the patient's previous PCI report it was not felt she was a candidate for additional RCA PCI at this institution. Thus depending upon her clinical course if she would need repeat invasive valuation would be considered to be done at a tertiary care center as noted above. (4) Valvular heart disease: PLAN: The patient will continue noninvasive evaluation and care as deemed appropriate. (5) Hyperlipidemia: QUALIFIERS: Hyperlipidemia type: unspecified Qualified Code(s): E78.5 - Hyperlipidemia, unspecified PLAN: The patient will continue risk factor modification medical therapy as tolerated. (6) Essential hypertension: PLAN: The patient's blood pressure does wax and wane. Her ARB dose will be increased to hopefully assist with her blood pressure control. (7) Anemia: PLAN: The patient did receive PRBCs. Her hemoglobin increased. However it is now decreased somewhat. She is been recommended for further evaluation of an underlying vasculitis and concerns of a hemolytic anemia. She states she has an appointment tomorrow at the [facility] [place]. In the interim she is considering whether she is comfortable going home and proceeding as an outpatient versus remaining in the hospital pending transfer to a tertiary care center for further evaluation care. She is discussing these issues with her family members. Addt'l Comments This note was generated using a voice recognition system and there may be incorrect words, spelling or punctuation that were not noted when reviewing the office note prior to saving.
[2021-02-27] MEDS: Losartan Potassium 50 MG Tablet PO (08:52)
[2021-02-27] MEDS: Ascorbic Acid 500 MG Tablet PO (08:52)
[2021-02-27] MEDS: 0.9% Saline Lock 10 ML Syringe IV (08:53)
--- NOTE | 2021-02-27 09:39 | PCM.DC ---
Discharge Instructions Diet Discharge Diet: No restrictions, Low fat / Low cholesterol and 2000 mg Sodium Diet Activity Discharge Activity: Return to Normal Activity and May Not Drive Dressing / Incision Call your doctor if you observe: Fever of 101 or Higher, Coldness, Increased Pain, Numbness or Tingling, Change in Color, Inability to urinate, Inability to have a bowel movement, Shortness of breath, Dizziness, Fainting spells, Swelling in the ankles, Chest pain, Prolonged hiccupping, Increased palpitations (irregular heartbeat), Calf discomfort and Uncontrolled pain Follow Up Care Test Results: Test results from this visit will be discussed in further detail at your follow-up appointment, if applicable. Discharge Plan Admission Admit Date/Time: 02/22/21 08:35 Primary Reason for Your Visit: Non-STEMI due to severe hemolytic anemia Attending Provider: Jcarlos Bob Primary Care Provider: Boyd Casiano Consulting Providers: Luis Alberto Madera ; Aime Jin ; Jono Robert ; Rafael Rojas ; Jerome Sousa ; Joe Ji ; Kedar Osorio ; Morris Adair ; Kianna Cuellar COOKING TEACHER Instructions Patient Instructions: Direct Antiglobulin Additional Instructions / Restrictions: Follow-up with [facility] vascul[facility] clinic on 03/01/2021 Patient Problems: Altered Health Status related to Hospitalization Patient Goals: *Optimal Level of Health *Keep Appointments *Medication Compliance *Remain Safe Discharge Orders/Prescriptions Prescriptions: New losartan 50 mg Tablet 50 mg PO BID Qty: 60 RF: 0 prednisone 20 mg Tablet 50 mg PO BREAKFAST Qty: 40 RF: 0 hydralazine 50 mg Tablet 50 mg PO TID Qty: 90 RF: 0 hydrochlorothiazide 25 mg Tablet 25 mg PO DAILY Qty: 30 RF: 0 ferrous sulfate 325 mg (65 mg iron) tablet 325 mg PO DAILY Qty: 60 RF: 0 pantoprazole [Protonix] 40 mg tablet,delayed release (DR/EC) 40 mg PO DAILY Qty: 30 RF: 0 Continued nitroglycerin 0.4 mg tablet, sublingual 0.4 mg SUBLINGUAL Q5-15M PRN (Reason: chest pain) 10 Days Qty: 25 RF: 3 folic acid 0.4 MG tablet 0.4 mg PO DAILY@0800 RF: 0 ascorbic acid (vitamin C) 500 MG capsule 500 mg PO DAILY RF: 0 coenzyme Q10 100 MG capsule 100 mg PO DAILY RF: 0 calcium citrate 200 MG tablet See Rx Instructions .ROUTE .COMPLEX RF: 0 omega-3 fatty acids-fish oil 1 EACH capsule 1 cap PO DAILY RF: 0 levothyroxine 100 MCG tablet 100 mcg PO DAILY RF: 0 multivitamin Tablet 1 tab PO DAILY RF: 0 metoprolol succinate 50 mg tablet extended release 24 hr 50 mg PO DAILY Qty: 90 RF: 3 aspirin 81 MG tablet 81 mg PO DAILY@0800 Qty: 0 RF: 0 atorvastatin 40 mg tablet 40 mg PO DAILY Qty: 90 RF: 3 potassium chloride 10 mEq tablet extended release 10 meq PO DAILY Qty: 90 RF: 3 isosorbide mononitrate 30 mg tablet extended release 24 hr 30 mg PO BID Qty: 180 RF: 3 Discontinued clopidogrel 75 mg tablet 75 mg PO DAILY Qty: 90 RF: 3 prednisone 20 mg Tablet 10 mg PO DAILY RF: 0 rivaroxaban 2.5 mg tablet 2.5 mg PO BID Qty: 60 RF: 11 Referrals / Follow Up: Jono Robert MD [NON-STAFF] - Within 2 Weeks (For hemolytic anemia) Luis Alberto Madera MD [STAFF PHYSICIAN] - Within 1 Month Boyd Casiano MD [Primary Care Provider] - In 1 Week Disposition Disposition (needs filled in before D/C Order can be placed): Home, Self Care
--- NOTE | 2021-02-27 09:54 | PCM.DC.SUM ---
Providers Date of Admission: 02/22/21 Primary Care Physician: Dr. Boyd Casiano MD Consultations 02/22/21 00:21 Consult: Cardiology Routine Consulting Provider: Luis Alberto Madera Reason for Consult: chest pain EMERGENT Consult: No Notified: Yes Date Notified: 02/22/21 Time Notified: 07:39 Method of Notification: Text 02/22/21 07:26 Consult: Cardiology Routine Consulting Provider: Luis Alberto Madera Reason for Consult: NSTEMI with severe anemia EMERGENT Consult: No Notified: Yes Date Notified: 02/22/21 Time Notified: 07:26 Method of Notification: Text 02/22/21 15:12 Consult: Oncology/Hematology Routine Consulting Provider: [facility]) Reason for Consult: severe anemia with Direct Juliann test EMERGENT Consult: No Notified: Yes Date Notified: 02/22/21 Time Notified: 15:13 Method of Notification: Verbal Reason For Visit: ANGINA Diagnosis Discharge Diagnosis (1) Non-ST elevation (NSTEMI) myocardial infarction: Status: Acute Code(s): I21.4 - Non-ST elevation (NSTEMI) myocardial infarction (2) Atherosclerotic heart disease of [place] coronary artery without angina pectoris: Status: Chronic Code(s): I25.10 - Atherosclerotic heart disease of [place] coronary artery without angina pectoris Qualifiers: [place] vs. transplanted heart: [place] heart Qualified Code(s): I25.10 - Atherosclerotic heart disease of [place] coronary artery without angina pectoris (3) History of percutaneous transluminal coronary angioplasty: Status: Chronic Code(s): Z98.61 - Coronary angioplasty status (4) Valvular heart disease: Status: Chronic Code(s): I38 - Endocarditis, valve unspecified (5) Hyperlipidemia: Status: Chronic Code(s): E78.5 - Hyperlipidemia, unspecified Qualifiers: Hyperlipidemia type: unspecified Qualified Code(s): E78.5 - Hyperlipidemia, unspecified (6) Essential hypertension: Status: Chronic Code(s): I10 - Essential (primary) hypertension (7) Anemia: Status: Acute Code(s): D64.9 - Anemia, unspecified Medications at Discharge Home Medications ascorbic acid (vitamin C) 500 mg PO DAILY 01/16/18 folic acid 0.4 mg PO DAILY@0800 08/03/18 coenzyme Q10 100 mg PO DAILY 03/09/18 calcium citrate See Rx Instructions .ROUTE .COMPLEX 11/12/18 omega-3 fatty acids-fish oil 1 cap PO DAILY 11/12/18 nitroglycerin 0.4 mg sublingual tablet 0.4 mg SUBLINGUAL Q5-15M PRN 10 Days #25 tab 12/01/18 levothyroxine 100 mcg PO DAILY 04/18/20 atorvastatin 40 mg tablet 40 mg PO DAILY #90 tab 07/24/20 potassium chloride 10 mEq tablet,extended release 10 meq PO DAILY #90 tab 07/24/20 isosorbide mononitrate 30 mg tablet,extended release 24 hr 30 mg PO BID #180 tab 01/15/21 multivitamin 1 tab PO DAILY 02/22/21 aspirin 81 mg PO DAILY@0800 #0 tab 02/27/21 ferrous sulfate 325 mg PO DAILY #60 tab 02/27/21 hydralazine 50 mg PO TID #90 tab 02/27/21 hydrochlorothiazide 25 mg PO DAILY #30 tab 02/27/21 losartan 50 mg PO BID #60 tab 02/27/21 metoprolol succinate 50 mg PO DAILY #90 tab 02/27/21 pantoprazole [Protonix] 40 mg PO DAILY #30 tab 02/27/21 prednisone 50 mg PO BREAKFAST #40 tab 02/27/21 Hospital Course Summary of Care Provided Hospital Course: This 85-year-old female was admitted with chest pain on the evening prior to admission along with shortness of breath on exertion. She was found very severely anemic, 6.4 and was admitted in PCU. 1. NSTEMI with coronary artery disease status post multiple stents: Patient was being admitted in PCU. Heart rate and blood pressure are controlled. EKG shows slight ST depression in inferior lateral leads. Importer Or Exporter consulted and discussed with Dr. Madera. Troponin HIGH. As per printing machine operator tape rules seems type II non-STEMI event. She appears hemodynamically stable. Anticoagulation are contraindicated for symptomatic anemia. Continue isosorbide mononitrate. Initially [facility] transfer line, [facility] was called and patient was accepted but patient was not transferred because of bed was not available. Subsequently [facility] also called but patient could not get transferred there too because of an ambulatory bed. Last troponin improved and patient didn't had any chest pain or shortness of breath on exertion therefore discharged home. Plavix and Xarelto discontinued after discussion with Dr. Madera. Aspirin continued. 2. 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 She also has history of mediastinal adenopathy for which she had EBUS and biopsy which was nonspecific but malignancy was ruled out. Heme-onc consulted. Patient was found to have D-dimer positive. Reticulocyte count and immature fraction was high which on follow-up got better. Patient was immediately started on prednisone 60 mg daily on recommendation of beef grader along with PPI. With initial delay of crossmatching in view of hemolytic anemia patient was transfused 2 units. Hemoglobin went up to 9.7 and today 8.9. Patient denies any GI or other external body loss. Patient is discharged on 2 weeks of prednisone 50 mg daily with follow-up with Dr. Robert in 2 weeks. Patient is also discharged on ferrous sulfate and patient is on vitamin C and folic acid. 3. Possible small vessel p-ANCA vasculitis with moderate left pleural effusion: Patient has follow-up appointment 03/01/2021 at [facility] vasculitis clinic for further treatment options regarding her chronic vasculitis. Patient had EBUS with biopsy of mediastinal lymph nodes by Dr. Membreno and was found nonspecific but malignancy was ruled out. Patient denies any hematuria but was found proteinuria per PCP. Possible pulmonary renal disease? 4. Hypertension: Patient blood pressure went up after starting prednisone. Rate is controlled on losartan hydralazine nitrate and HCTZ. Scripts were given. Antihypertensive medication physician discussed with Dr. Madera. Blood pressure fluctuates. Blood pressure goes high when she moves. As mentioned above 02/26: Blood pressure controlled with increased dose of losartan, hydralazine, nitrate and HCTZ. Other complaints: Hypothyroidism, dyslipidemia: Home medication reconciliation done. DVT prophylaxis-contraindicated with severe anemia with hemolytic anemia Discharge medication reconciliation done. Discharge follow-up instructions completed. Discharge process discussed with the patient and all questions were answered to patient's satisfaction. Total time spent, exact 35 minutes on discharge meds reconciliation, examination, coordination of care with nurses and ancillary staff, discussion with rn lactation consultant beef grader and printing machine operator tape rules, review of imaging and blood test and discussion with the patient on follow-up instructions Physical Exam Narrative Seen and examined. Patient walked to the nursing station yesterday and no chest discomfort or shortness of breath on exertion. Blood pressure is reasonably controlled. General: Alert, Oriented x3, Cooperative HEENT: Atraumatic, PERRLA, EOMI, Normocephalic Oral: No Gingival or Mucosal Lesions/ Ulcerations Neck: Supple, No JVD, Negative Carotid Bruits Lungs: Air entry diminished in posterior half left lung, left pleural effusion. No crepitation. No dyspnea at rest. Cardiovascular: Regular sinus rhythm, Normal S1, Normal S2, systolic murmur over left second ICS. Abdomen: Bowel Sounds Present, Soft, Non Tender, Non-Distended : No renal angle tenderness. No suprapubic tenderness. Extremities: No edema, Capillary Refill Less than 3 Seconds Skin: No rashes, No breakdown. Varicose veins. Musculoskeletal: No Tenderness to Palpation of Joints or Extremities Neurological: Cranial nerves II-XII grossly intact, DTR 2+/4 and Symmetrical, Neuro grossly intact Psych/Mental Status: Normal Affect, Appropriate. Medical Records Data Medical Nutrition Assessment Dietitian: Malnutrition Criteria Met Start: 02/25/21 14:42 Freq: Status: Active Protocol: Document 02/25/21 14:42 (Rec: 02/25/21 14:42 [id number]) Nutrition Malnutrition Evidence of Malnutrition Exists Yes Malnutrition (severe): Chronic Evidenced By Suboptimal Energy Intake ( Severe),Weight Loss (Severe) Clinical Problem Chronic Disease or Condition Related Malnutrition Etiology severe malnutrition r/t inadequate energy intake d/t decreased appetite Signs/Symptoms as evidenced by unintentional wt loss of 18.5#/11% x 3 months, estimated energy intake meeting <75% of estimated nutritional needs >6 weeks Status Active Problem Recommendation Dietitian Recommendations/Changes Continue cardiac diet; will add 120mL Ensure Enlive BID w/ lunch and dinner d/t signs/ symptoms of malnutrition. Weight / BMI Weight Weight: 151 lb 7.321 oz Body Mass Index (BMI) 28.6 ABG / Lab / Microbiology Data Result Diagrams: 02/27/21 05:55 02/27/21 05:55 Laboratory: Laboratory Results - last 24 hr 02/22/21 01:10: Blood Type A POSITIVE, Antibody Screen POSITIVE H, Antibody Identification WARM AUTOANTIBODY, Crossmatch See Detail 02/22/21 16:24: Parvovirus B19 IgG Ab 0.3, Parvovirus B19 IgM Ab 0.1 02/23/21 10:40: Diff Path Review Reviewed 02/24/21 06:30: Diff Path Review Reviewed 02/27/21 05:55: WBC 12.9 H, RBC 2.76 L, Hgb 8.9 L, Hct 27.1 L, MCV 98.2, MCH 32.2 H, MCHC 32.8, RDW Std Deviation 74.8 H, RDW Coeff of Martha 22.8 H, Plt Count 321, MPV 9.3, Immature Gran % (Auto) 1.600 H, Neut % (Auto) 77.3 H, Lymph % (Auto) 13.1 L, [place] % (Auto) 7.7, Eos % (Auto) 0.1, Baso % (Auto) 0.2, Absolute Neuts (auto) 10.0 H, Absolute Lymphs (auto) 1.70, Nucleated RBC % 0.5, Differential Comment SCANNED, Polychromasia RARE, Anisocytosis 1+, Microcytosis RARE, Macrocytosis 1+, Retic Count 13.21 H, Immature Retic Fraction 29.90 H, Retic Hgb Equivalent 38.1 H 02/27/21 05:55: Sodium 136, Potassium 4.4, Chloride 102, Carbon Dioxide 30.0, Anion Gap 4 L, BUN 31 H, Creatinine 0.89, Estim Creat Clear Calc 36.14, Est GFR (MDRD) Af Amer 78, Est GFR (MDRD) Non-Af 64, BUN/Creatinine Ratio 34.8 H, Glucose 110 H, Calcium 8.1 L, Total Bilirubin 2.60 H, AST 44 H, ALT 21, Alkaline Phosphatase 74, Total Protein 7.6, Albumin 2.7 L, Globulin 4.9 H, Albumin/Globulin Ratio 0.6 L Microbiology: Microbiology 02/24/21 Unknown Stool Stool Occult Blood (LUL) - Final 02/21/21 22:52 Nasal Secretion SARS-CoV-2 Antigen (Rapid) - Final D/C Instructions Discharge Diet: No restrictions, Low fat / Low cholesterol and 2000 mg Sodium Diet Call your doctor if you observe: Fever of 101 or Higher, Coldness, Increased Pain, Numbness or Tingling, Change in Color, Inability to urinate, Inability to have a bowel movement, Shortness of breath, Dizziness, Fainting spells, Swelling in the ankles, Chest pain, Prolonged hiccupping, Increased palpitations (irregular heartbeat), Calf discomfort and Uncontrolled pain Meaningful Use Info Meaningful Use Diagnoses (Choose all that apply): None applicable Discharge Plan Admission Admit Date/Time: 02/22/21 08:35 Primary Reason for Your Visit: Non-STEMI due to severe hemolytic anemia Attending Provider: Jcarlos Bob Primary Care Provider: Boyd Casiano Consulting Providers: Luis Alberto Madera ; Aime Jin ; Jono Robert ; Rafael Rojas ; Jerome Sousa ; Joe Ji ; Kedar Osorio ; Morris Adair ; Kianna Cuellar RIVET HOLE MACHINE OPERATOR Instructions Patient Instructions: Direct Antiglobulin Additional Instructions / Restrictions: Follow-up with [facility] vasculitis clinic on 03/01/2021 Patient Problems: Altered Health Status related to Hospitalization Patient Goals: *Optimal Level of Health *Keep Appointments *Medication Compliance *Remain Safe Discharge Orders/Prescriptions Prescriptions: New losartan 50 mg Tablet 50 mg PO BID Qty: 60 RF: 0 prednisone 20 mg Tablet 50 mg PO BREAKFAST Qty: 40 RF: 0 hydralazine 50 mg Tablet 50 mg PO TID Qty: 90 RF: 0 hydrochlorothiazide 25 mg Tablet 25 mg PO DAILY Qty: 30 RF: 0 ferrous sulfate 325 mg (65 mg iron) tablet 325 mg PO DAILY Qty: 60 RF: 0 pantoprazole [Protonix] 40 mg tablet,delayed release (DR/EC) 40 mg PO DAILY Qty: 30 RF: 0 Continued nitroglycerin 0.4 mg tablet, sublingual 0.4 mg SUBLINGUAL Q5-15M PRN (Reason: chest pain) 10 Days Qty: 25 RF: 3 folic acid 0.4 MG tablet 0.4 mg PO DAILY@0800 RF: 0 ascorbic acid (vitamin C) 500 MG capsule 500 mg PO DAILY RF: 0 coenzyme Q10 100 MG capsule 100 mg PO DAILY RF: 0 calcium citrate 200 MG tablet See Rx Instructions .ROUTE .COMPLEX RF: 0 omega-3 fatty acids-fish oil 1 EACH capsule 1 cap PO DAILY RF: 0 levothyroxine 100 MCG tablet 100 mcg PO DAILY RF: 0 multivitamin Tablet 1 tab PO DAILY RF: 0 metoprolol succinate 50 mg tablet extended release 24 hr 50 mg PO DAILY Qty: 90 RF: 3 aspirin 81 MG tablet 81 mg PO DAILY@0800 Qty: 0 RF: 0 atorvastatin 40 mg tablet 40 mg PO DAILY Qty: 90 RF: 3 potassium chloride 10 mEq tablet extended release 10 meq PO DAILY Qty: 90 RF: 3 isosorbide mononitrate 30 mg tablet extended release 24 hr 30 mg PO BID Qty: 180 RF: 3 Discontinued clopidogrel 75 mg tablet 75 mg PO DAILY Qty: 90 RF: 3 prednisone 20 mg Tablet 10 mg PO DAILY RF: 0 rivaroxaban 2.5 mg tablet 2.5 mg PO BID Qty: 60 RF: 11 Referrals / Follow Up: Jono Robert MD [NON-STAFF] - 03/08/21 3:00 pm (For hemolytic anemia) Luis Alberto Madera MD [STAFF PHYSICIAN] - 04/02/21 11:00 am Boyd Casiano MD [Primary Care Provider] - In 1 Week (Please call to setup an appointment. ) Disposition Disposition (needs filled in before D/C Order can be placed): Home, Self Care Charges/Coding Visit Charges Inpatient E&M: 74262 Disch Hosp
--- NOTE | 2021-02-27 11:22 | CASEMGMT ---
Per Ej RN, pt does not qualify for more than her 4L nc continuous. Therapy states no need for any further therapy for pt. This RN CM to room and pt states no further concerns/needs with going home. SSttarun RN CM
--- NOTE | 2021-02-27 12:21 | PHA.DC.MR ---
Pharmacy Service has performed discharge medication reconciliation for this patient. The patient's discharge medication list was reviewed for discrepancies and discrepancies were resolved. Medication education papers prepared but patient was discharge when I attempted to travel counselor. Home Medications ascorbic acid (vitamin C) 500 mg PO DAILY 01/16/18 folic acid 0.4 mg PO DAILY@0800 01/16/18 coenzyme Q10 100 mg PO DAILY 03/09/18 calcium citrate See Rx Instructions .ROUTE .COMPLEX 11/12/18 omega-3 fatty acids-fish oil 1 cap PO DAILY 11/12/18 nitroglycerin 0.4 mg sublingual tablet 0.4 mg SUBLINGUAL Q5-15M PRN 10 Days #25 tab 12/01/18 levothyroxine 100 mcg PO DAILY 04/18/20 atorvastatin 40 mg tablet 40 mg PO DAILY #90 tab 07/24/20 potassium chloride 10 mEq tablet,extended release 10 meq PO DAILY #90 tab 07/24/20 isosorbide mononitrate 30 mg tablet,extended release 24 hr 30 mg PO BID #180 tab 01/15/21 multivitamin 1 tab PO DAILY 02/22/21 aspirin 81 mg PO DAILY@0800 #0 tab 02/27/21 ferrous sulfate 325 mg PO DAILY #60 tab 02/27/21 hydralazine 50 mg PO TID #90 tab 02/27/21 hydrochlorothiazide 25 mg PO DAILY #30 tab 02/27/21 losartan 50 mg PO BID #60 tab 02/27/21 metoprolol succinate 50 mg PO DAILY #90 tab 02/27/21 pantoprazole [Protonix] 40 mg PO DAILY #30 tab 02/27/21 prednisone 50 mg PO BREAKFAST #40 tab 02/27/21
--- NOTE | 2021-02-28 14:22 | CASEMGMT ---
[facility] CM Discharge Follow-Up Phone Call. Lace: 12 Strata: 3 Discharge Date: 02/27/21 Adm Dx: NSTEMI Attempted discharge f/u phone call. No answer. Recording w/pt's name identified came on. VM left for return call to RN NAVEEN if there are any questions or concerns. Phone number provided. Bev HUSTON RN CM
== END 2021-02-27 12:14 | disposition home or self-care (01) | DRG 280 ==
LOC: ED 23:38 → PCU 02-22 02:41
PROVIDERS: Admitting Provider Family Medicine; Emergency Provider Student in an Organized Health Care Education/Training Program; PCP Family Medicine; Visit Provider Internal Medicine
DX: I21.A1 Myocardial infarction type 2 (principal); E43 Unspecified severe protein-calorie malnutrition; D59.11 Warm autoimmune hemolytic anemia; I25.118 Atherosclerotic heart disease of native coronary artery with other forms of angina pectoris; I10 Essential (primary) hypertension; E78.5 Hyperlipidemia, unspecified; I77.6 Arteritis, unspecified; G47.33 Obstructive sleep apnea (adult) (pediatric); E03.9 Hypothyroidism, unspecified; I77.89 Other specified disorders of arteries and arterioles; Z99.81 Dependence on supplemental oxygen; Z79.899 Other long term (current) drug therapy; Z79.02 Long term (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 antithrombotics/antiplatelets; Z79.51 Long term (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 inhaled steroids; Z79.01 Long term (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 anticoagulants; Z79.82 Long term (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 aspirin; Z79.890 Hormone replacement therapy; Z95.5 Presence of coronary angioplasty implant and graft; Z68.30 Body mass index [BMI] 30.0-30.9, adult
CPT/HCPCS: 36415; 71045; 80048; 80053; 80076; 82274; 82550; 82607; 82746; 83615; 83735; 84100; 84484; 85025; 85045; 86140; 86747; 86850; 86870; 86880; 86900; 86901; 86902; 86920; 86922; 87426; 93005; 97162; 97166; 99284; J7040; J7050; P9016; A4216; J1940

== ENCOUNTER → 2021-03-06 12:03 | Outpatient (CLI) | payer MEDICARE, OTHER, SELFPAY ==
[2021-03-06 12:37] LABS: Absolute Lymphocyte Count 0.78 X10^3/uL (0.83-4.51); Absolute Neutrophil Count 15.3 X10^3/uL (2.0-7.7); Basophil# 0.02 X10^3/uL; Basophil% 0.1 % (0-1); Eosinophil# 0.05 X10^3/uL; Eosinophils% 0.3 % (0-5); Hematocrit 25.7 % (37-47); Hemoglobin 8.3 g/dL (12.0-15.0); Lymphocyte # 0.78 X10^3/ul (0.83-4.51); Lymphocyte % 4.6 % (19-41); Mean Corp Hgb Conc 32.3 g/dL (32-36); Mean Corpuscular Hgb 32.2 pg (27.0-32.0); Mean Corpuscular Volume 99.6 fL (81-99); Mean Platelet Vol. 9.8 fl (6.2-12.0); Monocyte# 0.65 X10^3/uL; Monocyte% 3.8 % (0-10); NRBC Flagged by Analyzer 0 % (0-5); Neutrophil # 15.26 X10^3/uL (2.7-7.7); Neutrophil % 89.4 % (47-70); POSITIVE MORPHOLOGY YES; Platelet Count 306 K/mm3 (150-450); RBC Distribution Width CV 20.9 % (11.6-14.6); RBC Distribution Width SD 75.5 fl (35.1-43.9); Red Blood Count 2.58 M/mm3 (4.2-5.4); White Blood Count 17.1 K/mm3 (4.4-11.0)
[2021-03-06 12:38] LABS: Differential Indicated SCAN CRITERIA MET
[2021-03-06 13:00] LABS: Anisocytosis 1+
[2021-03-06 13:09] LABS: Anion Gap 5 (5-15); BUN 29 mg/dL (7-18); BUN/Creat Ratio 28.7 RATIO (10-20); Calcium,Total 8.4 mg/dL (8.5-10.1); Chloride 101 mmol/L (98-107); Creatinine, Serum 1.01 mg/dL (0.55-1.02); EST Glomerular Filtration Rate 56 mL/min (>60); Est Glom Filt Rate - Afr Amer 67 mL/min (>60); Glucose 231 mg/dL (74-106); Potassium 4.1 mmol/L (3.5-5.1); Sodium Level 136 mmol/L (136-145)
== END ==
PROVIDERS: PCP Family Medicine; Referring Provider Physician Assistant Medical; Visit Provider Physician Assistant Medical
DX: R06.00 Dyspnea, unspecified (principal)
CPT/HCPCS: 36415; 80048; 85025

== ENCOUNTER 2021-04-06 20:48 | Emergency (ER) | payer MEDICARE, OTHER, SELFPAY ==
[2021-04-06 20:50] VITALS: BP 173/68; PULSE 79; RESP 21; TEMP 37.2; O2SAT 99; BMI 31.1
--- NOTE | 2021-04-06 21:09 | EKG12_ITS ---
Test Reason : CP Blood Pressure : / mmHG Vent. Rate : 078 BPM Atrial Rate : 078 BPM P-R Int : 132 ms QRS Dur : 080 ms QT Int : 360 ms P-R-T Axes : 063 016 006 degrees QTc Int : 410 ms Normal sinus rhythm Nonspecific ST abnormality Abnormal ECG Confirmed by IVA WYNN, DANA ([id number]), purchase request editor JANETT MURPHY ([id number]) on 04/10/2021 10:46:50 AM Referred By: PL Confirmed By:DANA ENRIQUE MD
--- NOTE | 2021-04-06 21:09 | RAD_ITS ---
STUDY: X-RAY CHEST REASON FOR EXAM: Female, 85 years old. chest pain TECHNIQUE: AP portable COMPARISON: 02/21/2021. FINDINGS: Mild diffuse interstitial thickening more severe in the lower lobes... There is no demonstrated pleural abnormality. Heart is enlarged.. Normal mediastinum and to. Normal visualized pulmonary arteries. Mildly calcified aortic arch and descending thoracic aorta. Normal visualized thoracic spine. Normal visualized ribs, clavicles, and shoulders. There is no demonstrated abnormality of the visualized soft tissue structures of the upper abdomen. Previously noted left pleural effusion and left lower lobe consolidation have cleared. RAD/Chest 1 View (Portable) IMPRESSION: Mild chronic interstitial changes more severe in the lower lobes. ASHD.. Electronically Signed: Angel Dickson MD at 21:48 EDT , Service support ,
--- NOTE | 2021-04-06 21:13 | EDS_ITS ---
HPI History of Present Illness Chief Complaint: Chest Pain Informant: patient Narrative Narrative: Patient presents with an episode of chest pain at home. It is now resolved. Patient states that she has been on oxygen for 3 or 4 months. This is either due to the second Covid vaccine or possibly having Covid. Since this time, she has had some more chest pressure that intermittently comes on. She states about every other day she will get up and walk around and developed heaviness in her chest. If she sits down and rests it usually goes away in a few minutes. She does not have to take nitro for it. Today she had this pressure that went to her left arm associated with an increase in shortness of breath. No nausea vomiting or diaphoresis. Today she was not walking but just sitting still on the couch. This is never happened. She took 1 nitro and then a second nitro. This made it better but was not completely gone. She states it resolved when she was coming in here with EMS. She feels back to baseline. She does have a history of 8 prior stents. Today nothing specifically made her pain worse but nitro did make it better. She states that her last heart catheterization was just about 2 years ago now. She was also recently in the hospital for anemia of uncertain etiology. She states it was not a GI bleed as far she knows. She also had an NSTEMI at that time. [facility] Medical History Acute febrile illness Anemia Angina pectoris Anginal equivalent Aortic insufficiency Atherosclerotic heart disease of [place] coronary artery without angina pectoris BiPAP (biphasic positive airway pressure) dependence CAD (coronary artery disease) Cardiology follow-up encounter Carotid artery disease Chest pain Chronic cough Chronic hypoxemic respiratory failure Elevated troponin Essential hypertension Hemolytic anemia High cholesterol History of echocardiogram History of stress test Hyperlipidemia Hypertension Hypothyroidism Loss of appetite Mediastinal lymphadenopathy Non-smoker Non-ST elevation (NSTEMI) myocardial infarction Nonrheumatic aortic (valve) insufficiency Nonrheumatic aortic (valve) stenosis Nonrheumatic mitral (valve) insufficiency On home oxygen therapy ABDIAS (obstructive sleep apnea) Shortness of breath on exertion Thyroid disease Valvular heart disease Wears dentures Wears glasses Home Medications ascorbic acid (vitamin C) 500 mg PO DAILY 01/16/18 [History Last Taken 02/21/21] folic acid 0.4 mg PO DAILY@0800 01/16/18 [History Last Taken 02/21/21] coenzyme Q10 100 mg PO DAILY 03/09/18 [History Last Taken 02/21/21] calcium citrate See Rx Instructions .ROUTE .COMPLEX 11/12/18 [History Last Taken 02/21/21] omega-3 fatty acids-fish oil 1 cap PO DAILY 11/12/18 [History Last Taken 02/21/21] levothyroxine 100 mcg PO DAILY 04/18/20 [History Last Taken 02/21/21] atorvastatin 40 mg tablet 40 mg PO DAILY #90 tab 07/24/20 [Rx Last Taken 02/20/21] potassium chloride 10 mEq tablet,extended release 10 meq PO DAILY #90 tab 07/24/20 [Rx Last Taken 02/21/21] isosorbide mononitrate 30 mg tablet,extended release 24 hr 30 mg PO BID #180 tab 01/15/21 [Rx Last Taken 02/21/21] multivitamin 1 tab PO DAILY 02/22/21 [History Last Taken 02/21/21] aspirin 81 mg PO DAILY@0800 #0 tab 02/27/21 [Rx Last Taken 02/21/21] ferrous sulfate 325 mg PO DAILY #60 tab 02/27/21 [Rx Last Taken Unknown] losartan 50 mg PO BID #60 tab 02/27/21 [Rx Last Taken Unknown] metoprolol succinate 50 mg PO DAILY #90 tab 02/27/21 [Rx Last Taken 02/21/21] pantoprazole [Protonix] 40 mg PO DAILY #30 tab 02/27/21 [Rx Last Taken Unknown] nitroglycerin 0.4 mg sublingual tablet 0.4 mg SUBLINGUAL Q5-15M PRN 10 Days #25 tab 03/01/21 [Rx Last Taken Unknown] prednisone 20 mg tablet 60 mg PO BREAKFAST tab 04/05/21 [History Last Taken Unknown] Allergy/AdvReac Type Severity Reaction Status Date / Time Iodinated Contrast Media Allergy Intermediate Rash Verified 04/06/21 20:50 [Iodinated Contrast- Oral and IV Dye] ramipril [From Altace] AdvReac Severe cough Verified 04/06/21 20:50 Family History Mother , Age 63 Myocardial infarction Father , Age 28 Colon cancer Other Heart disease Surgical History History of axillary surgery History of cardiac catheterization History of cholecystectomy History of percutaneous transluminal coronary angioplasty (04/16/19) Hx of colonoscopy Presence of stent in coronary artery (05/28/19) Social History (Reviewed 04/05/21 @ 15:16 by Julianna Rivas TECHNOLOGY EDUCATION INSTRUCTOR, TECHNOLOGY EDUCATION INSTRUCTOR-C) Smoking Status: Never smoker second hand exposure: No alcohol intake: never substance use type: does not use caffeine: Yes Type: coffee Number of servings: 1 what type of physical activity do you participate in: none frequency: does not exercise ROS ROS ED Constitutional Constitutional ED: Denies chills, fever(s) or sweats Eyes Eyes: Denies blurry vision ENT ENT ED: Denies rhinorrhea or sore throat Cardiovascular Cardiovascular: Reports chest pain and palpitations; Denies racing heartbeat Respiratory/Chest Respiratory/Chest: Reports dyspnea; Denies cough or sputum Gastrointestinal Gastrointestinal: Denies nausea or vomiting Musculoskeletal Musculoskeletal: Reports other Details: Pain did radiate toward her left arm but not her back or neck. ; Denies neck pain Integumentary Denies rash Neurologic Neurologic: Denies paresthesias or weakness Psychiatric Psychiatric: Denies anxiety Hematologic/Lymphatic Hematologic/Lymphatic: Denies easy bruising Allergic/Immunologic Allergic/Immunologic ED: Denies mouth swelling, tongue swelling or urticaria EXAM Physical Exam Const Vital Signs: 04/06/21 20:50 04/06/21 21:14 04/06/21 22:06 Temperature 99 F Temperature Source Oral Pulse Rate 79 70 Respiratory Rate 21 H 19 H Blood Pressure 173/68 H 150/54 H Blood Pressure Mean 103 86 Pulse Ox 99 99 99 Oxygen Delivery Method Nasal Cannula Nasal Cannula Room Air Oxygen Flow Rate (L/min) 2 2 Positive well nourished and well developed General Appearance ED: well developed and NAD HEENT atraumatic Eyes General Eye ED: Negative for pale conjunctiva Neck No no JVD Resp normal respiratory effort and clear to auscultation bilaterally Effort and Inspection: Negative for respiratory distress Auscultation: Negative for rales, rhonchi or wheezes Cardio regular rate and regular rhythm; Negative for no murmurs Rate: other Other Details: Patient has a 2 out of 6 systolic murmur heard better at the left upper sternal border. GI normal to inspection, nondistended, normoactive bowel sounds, soft to palpation, non-tender and non-distended Back/Spine no CVA tenderness Extremity normal to inspection Neuro oriented x3 Sensorium / Orientation: awake and alert Psych mental status grossly normal Skin no rashes or lesions noted and no wounds Heart Score History: Highly Suspicious ECG: Nonspecific Repolarization Age: >/= 65 years Risk Factors: >/= 3 Risk Factors or History of CAD Troponin: </= Normal Limit Score: 7 MDM MDM MDM Narrative Medical decision making narrative: Patient's white count shows minimal elevation. Although she is anemic at 10.8, this is higher than her several recent checks. I do not think anemia is the cause of her symptoms this time. Troponin is within normal at 32. I rechecked the patient. She is still asymptomatic. Her x-ray shows some minimal basilar changes but looks much better than February 21 chest x-ray. Patient has heart score of 7. I have hospitalist on page to discuss admission. We did discuss the case. However, there is notation from her cellular equipment installer on last admission that if this patient needs further invasive cardiac evaluation that should likely be done at a tertiary facility that has the ability to do high risk PCI and/or bypass surgery. I talked to the patient about this. She is still stable and comfortable. She was told something similar. 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 I did discuss the case by calling [facility]. They have no beds at [facility]. [facility] has essentially no beds. I did discuss case with Valerie lewis. I talk with her transfer line and took down the history events and reason for transfer. The transfer line is going to talk to cardiology and medicine and then call us back regarding disposition and appropriate bed. Lab Data Attestation: I reviewed the patient's lab results. Labs: Laboratory Results - last 24 hr 04/06/21 04/06/21 21:00 21:00 WBC 13.5 H RBC 3.29 L Hgb 10.8 L Hct 32.9 L MCV 100.0 H MCH 32.8 H MCHC 32.8 RDW Std Deviation 59.6 H RDW Coeff of Martha 16.1 H Plt Count 267 MPV 9.5 Immature Gran % (Auto) 4.400 H Neut % (Auto) 84.2 H Lymph % (Auto) 6.2 L [place] % (Auto) 4.9 Eos % (Auto) 0.0 Baso % (Auto) 0.3 Absolute Neuts (auto) 11.4 H Absolute Lymphs (auto) 0.84 Nucleated RBC % 0 Sodium 134 L Potassium 4.5 Chloride 97 L Carbon Dioxide 31.0 Anion Gap 6 BUN 22 H Creatinine 0.97 Estim Creat Clear Calc 33.16 Est GFR (MDRD) Af Amer 70 Est GFR (MDRD) Non-Af 58 L BUN/Creatinine Ratio 22.6 H Glucose 180 H Calcium 8.5 Troponin I High Sens 32 Radiography Diagnostic Testing: Clinical Impression(s) from Imaging Studies Chest X-Ray 04/06/21 21:09 IMPRESSION: Mild chronic interstitial changes more severe in the lower lobes. ASHD.. Electronically Signed: Angel Dickson MD at 21:48 EDT , Service support , EKG Initial EKG: Comments: EKG done for chest pain read by me shows a normal sinus rhythm with overall rate of 78. There are some diffuse ST changes. There is a little bit of lateral ST depression but this was seen before. There is a little more prominent T waves than was seen on her 22 February 2021 EKG. These are some subtle changes. WI interval, QRS duration and QTc is normal. Discharge Plan Triage Chief Complaint: Chest Pain ED Provider: Vishal Carson Dx/Rx/DC Orders Clinical Impression: Chest pain Prescriptions: No Action prednisone 20 mg tablet 60 mg PO BREAKFAST RF: 0 folic acid 0.4 MG tablet 0.4 mg PO DAILY@0800 RF: 0 ascorbic acid (vitamin C) 500 MG capsule 500 mg PO DAILY RF: 0 coenzyme Q10 100 MG capsule 100 mg PO DAILY RF: 0 calcium citrate 200 MG tablet See Rx Instructions .ROUTE .COMPLEX RF: 0 omega-3 fatty acids-fish oil 1 EACH capsule 1 cap PO DAILY RF: 0 levothyroxine 100 MCG tablet 100 mcg PO DAILY RF: 0 multivitamin Tablet 1 tab PO DAILY RF: 0 losartan 50 mg Tablet 50 mg PO BID Qty: 60 RF: 0 ferrous sulfate 325 mg (65 mg iron) tablet 325 mg PO DAILY Qty: 60 RF: 0 metoprolol succinate 50 mg tablet extended release 24 hr 50 mg PO DAILY Qty: 90 RF: 3 aspirin 81 MG tablet 81 mg PO DAILY@0800 Qty: 0 RF: 0 pantoprazole [Protonix] 40 mg tablet,delayed release (DR/EC) 40 mg PO DAILY Qty: 30 RF: 0 atorvastatin 40 mg tablet 40 mg PO DAILY Qty: 90 RF: 3 potassium chloride 10 mEq tablet extended release 10 meq PO DAILY Qty: 90 RF: 3 isosorbide mononitrate 30 mg tablet extended release 24 hr 30 mg PO BID Qty: 180 RF: 3 nitroglycerin 0.4 mg tablet, sublingual 0.4 mg SUBLINGUAL Q5-15M PRN (Reason: chest pain) 10 Days Qty: 25 RF: 3 Primary Care Provider: Boyd Casiano Referrals: Boyd Casiano MD [Primary Care Provider] - Disposition Disposition: Acute Care Hospital Discharge Location: [facility] Discharge Date/Time: 04/07/21 05:30
[2021-04-06 21:14] VITALS: O2SAT 99
[2021-04-06 21:24] LABS: Absolute Lymphocyte Count 0.84 X10^3/uL (0.83-4.51); Absolute Neutrophil Count 11.4 X10^3/uL (2.0-7.7); Basophil# 0.04 X10^3/uL; Basophil% 0.3 % (0-1); Hematocrit 32.9 % (37-47); Hemoglobin 10.8 g/dL (12.0-15.0); Lymphocyte # 0.84 X10^3/ul (0.83-4.51); Lymphocyte % 6.2 % (19-41); Mean Corp Hgb Conc 32.8 g/dL (32-36); Mean Corpuscular Hgb 32.8 pg (27.0-32.0); Mean Platelet Vol. 9.5 fl (6.2-12.0); Monocyte# 0.67 X10^3/uL; Monocyte% 4.9 % (0-10); NRBC Flagged by Analyzer 0 % (0-5); Neutrophil # 11.39 X10^3/uL (2.7-7.7); Neutrophil % 84.2 % (47-70); Platelet Count 267 K/mm3 (150-450); RBC Distribution Width CV 16.1 % (11.6-14.6); RBC Distribution Width SD 59.6 fl (35.1-43.9); Red Blood Count 3.29 M/mm3 (4.2-5.4); White Blood Count 13.5 K/mm3 (4.4-11.0)
[2021-04-06 21:37] LABS: Anion Gap 6 (5-15); BUN 22 mg/dL (7-18); BUN/Creat Ratio 22.6 RATIO (10-20); Calcium,Total 8.5 mg/dL (8.5-10.1); Chloride 97 mmol/L (98-107); Creatinine, Serum 0.97 mg/dL (0.55-1.02); EST Glomerular Filtration Rate 58 mL/min (>60); Est Glom Filt Rate - Afr Amer 70 mL/min (>60); Estimated Creatinine Clearance 33.16 ml/min; Glucose 180 mg/dL (74-106); Potassium 4.5 mmol/L (3.5-5.1); Sodium Level 134 mmol/L (136-145); Troponin-I HS 32 pg/mL (3.0-54.0)
--- NOTE | 2021-04-06 21:50 | HP.PCM.HOS_ITS ---
HPI - General General Date of Admission: 04/06/21 Date of Service: 04/06/21 Chief Complaint: Chest pain HPI Narrative The patient is an 85 y/o F w/ PMHx: Obesity, HTN, HLD, Hypothyroidism, CAD s/p VT, ABDIAS on BIPAP q HS, Carotid disease, Valvular Heart Disease who presents to the [facility] ED on 04/06/21 with history of Work-up in the ED included The patient is a [] y/o WM w/ PMHx: [] who presents to the ER on [] w/ constant/intermittent/waxing and waning, [] sided/central, radiating/non- radiating chest pain with/without associated nausea, emesis, dyspnea, diaphoresis starting at [] while []. Chest Pain: EKG in ED [], CXR w/ [], initial trop []. Will admit to [], place on a monitored bed to assure no acute myocardial infarction with serial cardiac enzymes and EKGs. If repeat serial cardiac enzymes and EKGs remain unremarkable will pursue a.m. cardiac stress testing. Magnesium level requested. FLP in AM. ASA, NG, morphine. 04/16/2019 cardiac catheterization with elevated LV end-diastolic pressures, normal LV size, wall motion, systolic function with LVEF 65%, [place] multivessel CAD, mitral valve insufficiency noted to be mild with recommended medical therapy at that time and refer for immediate PCI CAD: Status post PCI, will continue patient home aspirin, statin, metoprolol, losartan regimen. Valvular heart disease: Most recent noted echocardiogram 03/24/2018 with normal LV systolic function, EF 65%, mildly enlarged LA, mitral valve doming, mild MVI, mild to moderate TVI, aortic valve sclerosis with mild AV stenosis, mild AV insufficiency, RVSP 28 mmHg with evidence of diastolic dysfunction. Carotid disease: We will continue patient on aspirin, statin, hypertensive regimen as noted. Hypertension: Continue home regimen including losartan, isosorbide, metoprolol with hold parameters, PRN hydralazine. Hyperlipidemia: Continue home statin regimen. AM FLP. Hypothyroidism: Continue home synthroid regimen. Obesity: Weight loss and lifestyle changes encouraged. Chronic anemia/iron deficiency anemia: Admission hemoglobin 10.8, stable, trend, continue iron supplementation. GERD: We will continue patient on PPI. ABDIAS: BiPAP nightly. [facility] Medical History Acute febrile illness Anemia Angina pectoris Anginal equivalent Aortic insufficiency Atherosclerotic heart disease of [place] coronary artery without angina pectoris BiPAP (biphasic positive airway pressure) dependence CAD (coronary artery disease) Cardiology follow-up encounter Carotid artery disease Chest pain Chronic cough Chronic hypoxemic respiratory failure Elevated troponin Essential hypertension Hemolytic anemia High cholesterol History of echocardiogram History of stress test Hyperlipidemia Hypertension Hypothyroidism Loss of appetite Mediastinal lymphadenopathy Non-smoker Non-ST elevation (NSTEMI) myocardial infarction Nonrheumatic aortic (valve) insufficiency Nonrheumatic aortic (valve) stenosis Nonrheumatic mitral (valve) insufficiency On home oxygen therapy ABDIAS (obstructive sleep apnea) Shortness of breath on exertion Thyroid disease Valvular heart disease Wears dentures Wears glasses Home Medications ascorbic acid (vitamin C) 500 mg PO DAILY 01/16/18 [History Last Taken 02/21/21] folic acid 0.4 mg PO DAILY@0800 01/16/18 [History Last Taken 02/21/21] coenzyme Q10 100 mg PO DAILY 03/09/18 [History Last Taken 02/21/21] calcium citrate See Rx Instructions .ROUTE .COMPLEX 11/12/18 [History Last Taken 02/21/21] omega-3 fatty acids-fish oil 1 cap PO DAILY 11/12/18 [History Last Taken 02/21/21] levothyroxine 100 mcg PO DAILY 04/18/20 [History Last Taken 02/21/21] atorvastatin 40 mg tablet 40 mg PO DAILY #90 tab 07/24/20 [Rx Last Taken 02/20/21] potassium chloride 10 mEq tablet,extended release 10 meq PO DAILY #90 tab 07/24/20 [Rx Last Taken 02/21/21] isosorbide mononitrate 30 mg tablet,extended release 24 hr 30 mg PO BID #180 tab 01/15/21 [Rx Last Taken 02/21/21] multivitamin 1 tab PO DAILY 02/22/21 [History Last Taken 02/21/21] aspirin 81 mg PO DAILY@0800 #0 tab 02/27/21 [Rx Last Taken 02/21/21] ferrous sulfate 325 mg PO DAILY #60 tab 02/27/21 [Rx Last Taken Unknown] losartan 50 mg PO BID #60 tab 02/27/21 [Rx Last Taken Unknown] metoprolol succinate 50 mg PO DAILY #90 tab 02/27/21 [Rx Last Taken 02/21/21] pantoprazole [Protonix] 40 mg PO DAILY #30 tab 02/27/21 [Rx Last Taken Unknown] nitroglycerin 0.4 mg sublingual tablet 0.4 mg SUBLINGUAL Q5-15M PRN 10 Days #25 tab 03/01/21 [Rx Last Taken Unknown] prednisone 20 mg tablet 60 mg PO BREAKFAST tab 04/05/21 [History Last Taken Unknown] Allergy/AdvReac Type Severity Reaction Status Date / Time Iodinated Contrast Media Allergy Intermediate Rash Verified 04/06/21 20:50 [Iodinated Contrast- Oral and IV Dye] ramipril [From Altace] AdvReac Severe cough Verified 04/06/21 20:50 Family History Mother , Age 63 Myocardial infarction Father , Age 28 Colon cancer Other Heart disease Surgical History History of axillary surgery History of cardiac catheterization History of cholecystectomy History of percutaneous transluminal coronary angioplasty (04/16/19) Hx of colonoscopy Presence of stent in coronary artery (05/28/19) Social History Smoking Status: Never smoker second hand exposure: No alcohol intake: never substance use type: does not use caffeine: Yes Type: coffee Number of servings: 1 what type of physical activity do you participate in: none frequency: does not exercise Vital Signs Vital Signs Vital Signs: 04/06/21 20:50 04/06/21 21:14 Temperature 99 F Temperature Source Oral Pulse Rate 79 Respiratory Rate 21 H Blood Pressure 173/68 H Blood Pressure Mean 103 Pulse Ox 99 99 Oxygen Delivery Method Nasal Cannula Nasal Cannula Oxygen Flow Rate (L/min) 2 2 Weight Weight: 164 lb 14.492 oz Body Mass Index (BMI) 31.1 Results Lab / Micro Data Result Diagrams: 04/06/21 21:00 04/06/21 21:00 Labs: Laboratory Results - last 24 hr 04/06/21 21:00: WBC 13.5 H, RBC 3.29 L, Hgb 10.8 L, Hct 32.9 L, MCV 100.0 H, MCH 32.8 H, MCHC 32.8, RDW Std Deviation 59.6 H, RDW Coeff of [place] 16.1 H, Plt Count 267, MPV 9.5, Immature Gran % (Auto) 4.400 H, Neut % (Auto) 84.2 H, Lymph % (Auto) 6.2 L, [place] % (Auto) 4.9, Eos % (Auto) 0.0, Baso % (Auto) 0.3, Absolute Neuts (auto) 11.4 H, Absolute Lymphs (auto) 0.84, Nucleated RBC % 0 04/06/21 21:00: Sodium 134 L, Potassium 4.5, Chloride 97 L, Carbon Dioxide 31.0, Anion Gap 6, BUN 22 H, Creatinine 0.97, Estim Creat Clear Calc 33.16, Est GFR (MDRD) Af Amer 70, Est GFR (MDRD) Non-Af 58 L, BUN/Creatinine Ratio 22.6 H, Glucose 180 H, Calcium 8.5, Troponin I High Sens 32 Radiology Impression Chest X-Ray 04/06/21 21:09 IMPRESSION: Mild chronic interstitial changes more severe in the lower lobes. ASHD.. Electronically Signed: Angel Dickson MD at 21:48 EDT , Service support ,
[2021-04-06 22:06] VITALS: BP 150/54; PULSE 70; RESP 19; O2SAT 99
--- NOTE | 2021-04-06 22:33 | ED.RN ---
PATIENT IS BEING TRANSFERRED TO ANOTHER HOSPITAL, [facility] AND THEY HAVE NO BEDS AVALIABLE FOR THIS PATIENT.
--- NOTE | 2021-04-06 22:48 | EKG12_ITS ---
Test Reason : REPEAT Blood Pressure : / mmHG Vent. Rate : 060 BPM Atrial Rate : 060 BPM P-R Int : 140 ms QRS Dur : 086 ms QT Int : 404 ms P-R-T Axes : 024 021 -05 degrees QTc Int : 404 ms Normal sinus rhythm Nonspecific ST abnormality Abnormal ECG Confirmed by IVA WYNN, DANA ([id number]), multimedia editor JANETT MURPHY ([id number]) on 04/10/2021 10:47:35 AM Referred By: MR Confirmed By:DANA ENRIQUE MD
[2021-04-07 00:12] LABS: Troponin-I HS 134 pg/mL (3.0-54.0)
[2021-04-07 00:31] VITALS: BP 149/51; PULSE 60; RESP 13; O2SAT 100
--- NOTE | 2021-04-07 00:48 | ED.RN ---
[facility] CALLED AND SAID THEY HAVE A BED BUT THE BED IS NOT READY YET, SO THEY SAID TO CALL BACK EVERY COUPLE HOURS TO SEE IF IT IS READY YET AND NOT TO SET UP TRANSPORTATION
[2021-04-07 01:11] VITALS: BP 167/48; PULSE 76; RESP 16; O2SAT 98
[2021-04-07 03:32] VITALS: PULSE 61; RESP 15; O2SAT 98
[2021-04-07 04:00] VITALS: BP 146/49; PULSE 60; RESP 15; O2SAT 100
[2021-04-07 05:00] VITALS: BP 147/51; PULSE 74; RESP 18; TEMP 36.3; O2SAT 98
--- NOTE | 2021-04-07 05:26 | ED.RN ---
attempted to call [facility] for report no answer not able to leave message
--- NOTE | 2021-04-07 05:29 | ED.RN ---
called and updated on transfer
== END 2021-04-07 05:30 | disposition short-term general hospital (02) ==
PROVIDERS: Emergency Provider Emergency Medicine; PCP Family Medicine
DX: R07.9 Chest pain, unspecified (principal); I25.118 Atherosclerotic heart disease of native coronary artery with other forms of angina pectoris; I25.2 Old myocardial infarction; G47.33 Obstructive sleep apnea (adult) (pediatric); E03.9 Hypothyroidism, unspecified; E78.00 Pure hypercholesterolemia, unspecified; E78.5 Hyperlipidemia, unspecified; I10 Essential (primary) hypertension; Z79.82 Long term (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 aspirin; Z79.899 Other long term (current) drug therapy
CPT/HCPCS: 71045; 80048; 84484; 85025; 87426; 93005; 99285; A4216

== ENCOUNTER → 2021-04-23 13:27 | Outpatient (CLI) | payer MEDICARE, OTHER, SELFPAY ==
--- NOTE | 2021-04-23 13:46 | CR.HP_ITS ---
CR - History & Physical - General Arrival date:: 04/23/21 Arrival time:: 13:30 Date of Referral:: 04/13/21 Date of CR Evaluation:: 04/23/21 Referring Physician: Dr. Luis Alberto Madera Primary Diagnosis: PCI w/coronary stenting @ [facility] - History of Present Cardiac Event Onset Date: Enter Onset Date of cardiac illnesses in Comment field below PTCA or coronary stenting:: Yes - [facility] due to high risk; coronary angioplasty done w/stent - Sleep Disorder Evaluation Hx of Sleep Apnea: Yes Do you snore loudly (louder than talking or can be heard through closed doors)?: Yes Do you often feel tired/ fatigued/ sleepy during daytime?: Yes Has anyone observed you stop breathing during sleep?: Yes History of Hypertension (for STOP score): Yes - has history of ABDIAS and has home BiPAP, now using oxygen 06/01 but is unable to use both STOP Results: Positive - Medications Home Medications: Ambulatory Orders Medication Instructions Recorded ascorbic acid (vitamin C) 500 mg PO DAILY 01/16/18 folic acid 0.4 mg PO DAILY@0800 01/16/18 coenzyme Q10 100 mg PO DAILY 03/09/18 calcium citrate See Rx Instructions .ROUTE .COMPLEX 11/12/18 omega-3 fatty acids-fish oil 1 cap PO DAILY 11/12/18 levothyroxine 100 mcg PO DAILY 04/18/20 atorvastatin 40 mg tablet 40 mg PO DAILY #90 tab 07/24/20 isosorbide mononitrate 30 mg 30 mg PO BID #180 tab 01/15/21 tablet,extended release 24 hr multivitamin 1 tab PO DAILY 02/22/21 aspirin 81 mg PO DAILY@0800 #0 tab 02/27/21 ferrous sulfate 325 mg PO DAILY #60 tab 02/27/21 losartan 50 mg PO BID #60 tab 02/27/21 metoprolol succinate 50 mg PO DAILY #90 tab 02/27/21 pantoprazole [Protonix] 40 mg PO DAILY #30 tab 02/27/21 nitroglycerin 0.4 mg sublingual 0.4 mg SUBLINGUAL Q5-15M PRN 10 03/01/21 tablet Days #25 tab clopidogrel 75 mg tablet 75 mg PO DAILY #90 tab 04/20/21 prednisone 20 mg tablet 40 mg PO BREAKFAST tab 04/20/21 - Allergies Allergies/Adverse Reactions: Allergies Iodinated Contrast Media [Iodinated Contrast- Oral and IV Dye] Allergy (Intermediate, Verified 04/20/21 15:28) Rash ramipril [From Altace] Adverse Reaction (Severe, Verified 04/20/21 15:28) cough ticagrelor [From Brilinta] Adverse Reaction (Verified 04/20/21 15:28) Dyspnea Advanced Directives - Advanced Directives Power of Mental Health Coordinator: Yes Living Will: Yes Advance Directives Information Provided: No Advance Directives on File: No DNR Order?:: No - MOLST See MOLST form: No Past Medical History - Covid-19 Screening Fever: No Unexplained muscle aches: No Current respiratory symptoms: No Upper respiratory infections symptoms: No Gastro-intestinal symptoms: No Anx-Hhib-Muuonv symptoms: No Has tested positive for COVID-19 in last 30 days: No Date of testin08/31/20 - had second vaccine late due to other medical issue. Had contact w/person w/symptoms or Covid-19 (+) last 14 days: No Has High Risk Exposures ID'd by Health dept/Inf Control team: No 65 years or older:: Yes Lives in Assisted Living facility:: No Has a chronic lung disease or moderate to severe asthma:: No Has a serious heart condition:: Yes Immunocompromised:: Yes Severely obese (Body Mass Index of 40 or higher):: No Diabetic:: No Has chronic kidney disease undergoing dialysis:: No Has liver disease:: No - Past Medical Illness Medical History: Past Medical History (Last Reviewed 04/20/21 @ 14:34 by Julianna Rivas NP, PERSONALIZED LIVING MANAGER NURSE-C) Acute febrile illness R50.9 Anemia D64.9 Angina pectoris I20.9 Anginal equivalent I20.8 Aortic insufficiency I35.1 Atherosclerotic heart disease of [place] coronary artery without angina pectoris I25.10 Previous LEANDER to proximal to mid LAD 3.0 X 32 mm Taxus 02/23/[address] Daquna Meyer, [facility];LEANDER to mid RCA 2.5 X 24 mm Synergy 01/19/[address] Patel,[facility]; PTCA/LEANDER of the mid LCX 03/10/[address] Torrez [facility]; Successful PTCA/LEANDER mid RCA with a 2.0 x 12balloon, followed by a 2.0 x 10 Angiosculpt, followed by a 2.5 x 16 Promus Synergy, post dilated with a 2.5 x 8 NC Balloon; 85%-->0%, no dissection 07/22/2018; PTCA/LEANDER to mid RCA instent restenosis 11/13/18; PTCA/NO stent to mid RCA 04/16/19; Successful PTCA/LEANDER mid RCA with a 2.0 x 10 Angiosculpt, followed with a 2.5 x 14 Resolute LEANDER, post dilated with a 2.5 x 12 NC balloon; 85%-->0%, no dissection 05/28/2019. BiPAP (biphasic positive airway pressure) dependence Z99.89 noncompliant for last 2-3 months d/t chronic cough and sob CAD (coronary artery disease) I25.10 Cardiology follow-up encounter Z09 [facility] 08/17/2020 Carotid artery disease I77.9 Chest pain R07.9 Chronic cough R05 for 2-3 months Chronic hypoxemic respiratory failure J96.11 Elevated troponin R77.8 Essential hypertension I10 Hemolytic anemia D58.9 High cholesterol E78.00 on med History of echocardiogram Z92.89 2018 History of stress test Z92.89 2019 Hyperlipidemia E78.5 Hypertension I10 Hypothyroidism E03.9 Loss of appetite R63.0 for last 2=3 months/lost 19 lbs Mediastinal lymphadenopathy R59.0 Non-smoker Z78.9 Non-ST elevation (NSTEMI) myocardial infarction I21.4 Nonrheumatic aortic (valve) insufficiency I35.1 Nonrheumatic aortic (valve) stenosis I35.0 Nonrheumatic mitral (valve) insufficiency I34.0 On home oxygen therapy Z99.81 6l cont for 1 month ABDIAS (obstructive sleep apnea) G47.33 Initial AHI 35.5 Shortness of breath on exertion R06.02 Thyroid disease E07.9 on med Valvular heart disease I38 Wears dentures Z97.2 Wears glasses Z97.3 reading and for driving - Past Surgical History Surgical History: Past Surgical History (Last Reviewed 04/20/21 @ 14:34 by Julianna Rivas PERSONALIZED LIVING MANAGER NURSE, PERSONALIZED LIVING MANAGER NURSE-C) History of axillary surgery Z98.890 removed 1 lymph node from right axilla History of cardiac catheterization Z98.890 2019 History of cholecystectomy Z90.49 History of percutaneous transluminal coronary angioplasty Onset Date: 04/16/19 Z98.61 PTCA/NO stent to mid RCA 04/16/19 Hx of colonoscopy Z98.890 multiple times Presence of stent in coronary artery Onset Date: 04/09/21 Z95.5 Successful IVUS guided PCI/LEANDER of the proximal LCX 04/09/21; Previous LEANDER to proximal to mid LAD 3.0 X 32 mm Taxus 02/23/[address] Daquan Meyer, [facility];LEANDER to mid RCA 2.5 X 24 mm Synergy 01/19/[address] Patel,[facility]; PTCA/LEANDER of the mid LCX 03/10/[address] Torrez [facility]; Successful PTCA/LEANDER mid RCA with a 2.0 x 12balloon, followed by a 2.0 x 10 Angiosculpt, followed by a 2.5 x 16 Promus Synergy, post dilated with a 2.5 x 8 NC Balloon; 85%-->0%, no dissection 07/22/2018; PTCA/LEANDER to mid RCA instent restenosis 11/13/18; PTCA/NO stent to mid RCA 04/16/19; PCI/LEANDER to RCA 05/28/1903/[id number] ultrasound-guided PCI of the 70% proximal LCx stenosis after shockwave lithotripsy with a 3.0 x 16 mm Synergy drug-eluting stent. Surgical History: angioplasty, cholecystectomy, - - Cardiac stents in 2003, one stent in January 2018, one stent in March 2018, one stent in July 2018 - Family History Summary Family History: Family History (Last Reviewed 04/20/21 @ 14:34 by Julianna Rivas NP, PERSONALIZED LIVING MANAGER NURSE-C) Mother , Age 63 Myocardial infarction Father , Age 28 Colon cancer Other Heart disease Social History - Smoking History Smoking Status: Never smoker - Occupation Occupation (List type of work in comments):: Retired - Hobbies, Recreation, Social Activities Hobbies: Other Recreational Activities: I can hardly do any recreational activities Social Environment - Status Marital Status: - Current Living Arrangements Living Environment:: Spouse - Children How many children do you have?: 4 - 9 grandchildren, 14 great grandchildren Do any of your children live nearby?: Yes - Assistance Do you need any assistance at home?: no Review of Systems - Review of Systems Hints: Right click = Denies (Slash). Left click = Reports (Arverne) Review of Present Symptoms: Reports: Shortness of Breath with Exertion - very rare, but occasionally notices an issue when bending over., Angina - if heart rate increases to high gets a dull ache in the chest. If she rest and the heart rate comes down the discomfort subsides., Fatigue, Appetite - Normal, Sleep - Normal. Denies: Shortness of Breath at Rest, Dizziness/Lightheadedness, Appetite - Special Diet, Sexual Changes - Pain Is Patient Pain Free?: Yes Pain Location: none Pain Level: 0/10 Risk Factor Assessment - Vital Signs Temperature: 97.6 F Respiratory Rate: 18 Pulse Ox: 97 - 2 liters Blood Pressure: 126/48 - Pulse Pulse Rate: 64 Pulse Rhythm: Regular - Hypertension Blood Pressure Sitting - Left Arm: 126/48 - Blood Cholesterol/Lipids Total Cholesterol (mg/dL) Goal = less than 200 mg/dL: 90 HDL Cholesterol (mg/dL) Goal = less than 40 mg/dL: 29 LDL Cholesterol (mg/dL) Goal = less than 70 mg/dL: 19 Triglycerides (mg/dL) Goal = less than 150 mg/dL: 211 - Diabetes Nutrition Referral for Diabetes: No - Obesity Height: 5 ft 1 in Weight:: 153 lb 2.24 oz Weight in Pounds: 153.1 lbs Weight Source: Standing Scale Body Mass Index (BMI): 28.9 Nutritional Referral for Obesity: No - Physical Inactivity Physical Inactivity: None - Risk Stratification Risk Guidelines: Lowest Risk: Risk Factor for Hypertension, Risk Factor for Depression, Moderate Risk: Risk Factor for Dyslipidemia, Risk Factor for Obesity, Highest Risk: Risk Factor for Sedentary Lifestyle - Family History Family History: Family History (Last Reviewed 04/20/21 @ 14:34 by Julianna Rivas NP, PERSONALIZED LIVING MANAGER NURSE-C) Mother Myocardial infarction Father Colon cancer Other Heart disease Motivation - Motivation to Participate On a scale of 1 to 10, how prepared are you to commit to attending program?: 7 What do you see as barriers to successfully being able to complete the program?: no What do you see as the benefits of succesfully completing the program? In other words, what do you hope to get out of participating in the program?: more energy less weakness walkiing around, be able to go to the store Are there issues you are dealing with that will interfere with completing the program?: generalized weakness, and elevated heart rates wehn walking are concerning Do you have a spouse or signficant other, family or friends who will help supp ort you to complete the program?: yes
--- NOTE | 2021-04-23 13:46 | PCM.CR.ITP ---
Diagnosis - General Information Admitting Diagnosis: High risk PCI intervention done at [facility] for surgical back-up. Patinet significant heart disease with previous coronary interventions. Patient subsequently had angioplasty procedure then stetnt placement done successfully. Personal Learning Style:: Audio/Visual Barriers to Learning: Hearing Impairment, Vision Impairment Stage of change r/t lifestyle modifications:: Action Gave educational material for:: Treating Heart Disease, Emotions & Heart Disease, Stress Management & Relaxation, Sleep Disorders & Heart Disease, How The Heart Works, What it means to have Heart Disease, How Coronary Artery Disease is Diagnosed, Heart Procedures, What Heart Medications Do, Risk Factors & Modifications, Living an Active Life, Nutrition - Education/Goals Individual Counseling: Initial Assessment: Abnormal Cholesterol Levels, High Blood Pressure, Overweight/Obesity - BMI 28.8, Hypertension - 126/48 Cardiac Rehabilitation Goals: 1. Maintain the individual as the primary focus of care. 2. To improve the patient's quality of life. 3. Identification of cardiac risk factors and provide cardiac risk factor management. 4. Enhance the psychosocial status of the patient. 5. Reconditioning enough to allow the patient to resume customary activities. 6. Control symptoms of cardiac disease Personal Goals: Initial Assessment: Improve energy level, Participate in home exercise program, Improve muscle strength and endurance, Improve diet and eating habits (eat healthier), Control risk factors (learn risk factor modification) Scale for measuring improvement of personal goals: Enter appropriate number in Comments. 2 = Unchanged. 3 = Slightly Better. 4 = Moderate Improvement. 5 = Met my Goal - Diagnosis & Disease Process Outcomes/Goals: Pt IDs own risk factors & lifestyle modifications by Session 10, Verbalizes symptoms of angina & response by session 3., Pt independently manages Plan/Interventions: Assist Pt to ID & engage in lifestyle modification to reduce CVD risk, Instruct on individual risk factors, Review symptoms of angina & emergency actions, Review secondary diagnosis & identify educational needs. - Safety Referral to Physical Therapy: No Referral to [facility] Case Management: No Fall Risk Assessed:: Yes Assistive Devices:: Cane, Wheelchair - occasional cane if needed, wheelchair used for long distance walking only otherwise is able to get around home easily. Exercise - Initial Assessment - Visit Date of Eval: 04/23/21 Session #:: 0 - Pre-cardiac rehab Mets: Pre-: >5 METS for 30 minutes by discharge - Physician Prescribed Exercise Modalities: Biodyne - replaced with lateral lead trainer device, NuStep, SciFit Frequency: 3x/week for 12 weeks [36 sessions] Intensity: 60-80% of age predicted maximum heart rate reserve Current METSs:: 2 Target Heart Rate:: 89-102 Resting Blood Pressure: 126/48 EKG Type: Noramla sinsu rhythm, non-specific ST abnormality Current Physical Activity or Exercising minutes: 0 - Outcomes & Goals Goals:: Verbalizes understanding of THR, RPE & goal METS by session 6, Documents in home exercise log/reports 30 min aerobic 5 day/wk by DC, Demonstrates accurate pulse taking by DC - Intervention & Plan Exercise Program Goals: Instruct on personal THR & RPE, Instruct on MET level & personal MET goal, Show patient to take own pulse /validate performance until accurate, Instruct on home exercise - Physical Activity Home Exercise Physical Activity - Home Exercise: Safe Exercise, Warm-up, Self-monitoring, Cool-Down, Home Exercise > 30 min Daily, Sitting Time <3 hours/daily - Outcomes & Goals Outcomes/Goals: Demonstrates correct Warm-up/exercise Cool-Down (S3) if = 2.5 METs, Verbalizes symptoms of exercise intolerance by Session 3 (S3), Demonstrate safe equipment use (S3) & follows exercise prescrition (6) - Intervention & Plan Plan/Intervention: Instruct warm-up & cool-down if exercising at > 2 METs, Instruct on symptoms of exercise intolerance & actions to take, Instruct & monitor on saf, Assess intial functional capacity & safety risk Nutrition - Initial Assessment - Program Goals Nutrition Program Goals: LDL <100 optimal. 100 - 129 Near optimal. 130 - 159 Borderline High. 160 - 189 High. Total Cholesterol <200 desirable. 200 - 239 Borderline High. >/= 240 High. HDL < 40 Low >/=60 High. Triglycerides <150 desirable. <199 optimal. VlDL 5 - 40. HgbA1C <7%. BMI <25 Patient has diagnosis of Hyperlipidemia (ICD E78)?: Yes - Visit Date of Assessment:: 04/23/21 Session #:: 0 - pre-cardiac rehab evaluation - Cholesterol/Lipids Triglycerides (mg/dL): 211 - 10/10/2020 Total Cholesterol (mg/dL): 90 LDL Cholesterol (mg/dL): 19 HDL Cholesterol (mg/dL): 29 Determine presence & major risk factors that modify LDL goal: Hypertension or hypertensive medication, Low HDL cholesterol <40 mg/dL*, Family history of premature CHD in Male < 55 years: female <65 yearsFa, Age men > 45 years; women >/= 55 years Outcomes/Goals: Pt IDs own risk factors & lifestyle modifications by Session 10, Verbalizes symptoms of angina & response by session 3., Pt independently manages Intervention/Plan: Instruct on personal lipid levels & lipid goals/NCEP guidelines, Instruct on cholesterol Referral to dietitian:: Yes - Medical Nutrition Therapy - Diabetes (Other Core Measures) Diabetes Type: Not Applicable - Healthy Eating Habits Will attend diet classes:: Yes Outcomes/Goals:: Consume diet rich in vegs,fruits,whole grain/high fiber,fish,lean meat, Limit sat/trans fats,cholesterol & added salts & sugars - Education Gave educational materials for:: Healthy eating Nutrition - 30-Day Assessment Nutrition - 60-Day Assessment Nutrition - 90-Day Assessment Nutrition - Final Assessment Medical - Initial Assessment - Visit Date of Eval: 04/23/21 Session #:: 0 - Pre-cardiac rehab evaluation - Medication Compliance Preventative Medication(s):: Aspirin, Clopidogrel/P2Y12 inhibit, Statin/lipid, Beta skylar H/O mental health issues: depression, anxiety, or addiction?: No Doesn?t believe in the benefits of treatment?: No Believes medications are unnecessary or harmful?: No Has a concern about medication side effects?: No Expresses concern over the cost of medications?: No Outcomes/Goals: Verbalizes medications,desired effect & common side effects @ DC, Pt self-reports following medication regimen, Keeps card in wallet w/medications listed by DC Interventions/plans: Instruct on medication effects & side effects, Review medication list w/patient every two weeks, Instruct importance of taking meds as ordered & assist problem solving - Tobacco Use Tobacco Use: Non-smoker - Hypertension Resting Blood Pressure:: 126/48 [employer] Hypertension Guidelines: [employer] Hypertension Guidelines. Normal BP Less than 120/80. Elevated BP 120/80. Hypertension Stage 1: BP 130-139/80-89. Hypertesnion Stage 2: BP 140 or higher/90 or higher. Hypertension Crisis: BP higher than 180/120 Outcomes/Goals: Able to verbalize/achieve optimal blood pressure <130/80, Incorporates diet changes & exercise for blood pressure control by DC Interventions/plan: Instruct on optimal blood pressure, hypertension & medications, Instruct on effects of sodium, alcohol, stress, exercise &hypertension - Tobacco Cessation Referral Smoking Cessation Referral:: No Individual Education/Counseling:: No Education Schedule Given:: Yes Medical- 30-Day Assessment Medical- 60-Day Assessment Medical- 90-Day Assessment Medical - Final Assessment Psychosocial - Initial Assess - VIsit Date of Evmayra: 04/23/21 Session #:: 0 - Pre-cardiac rehab evaluation Not Applicable: Yes - Psychosocial Test Tool Used:: Ferr[employer] Power QOL Cardiac, PHQ-9 Questionnaire phq-9 Severity: Severity. 1-4 Minimal Depression. 5-9 Mild Depression. 10-14 Moderate Depression. 15-19 Moderately Sever Depression. 20-27 Severe Depression. Rule: - Referral to Behavioral Health PS - Interventions: Yes Attend Stress Management Classes, No Referral to Behavioral Health if PHQ-9 score >9:, No Referral to [facility], No Referral to Physician if PHQ-9 if score is 5-9: - Intervention/Plan: See List Interventions/Plan:: Assess stressors,coping strategies & signs of derpression on admission, Instruct/assist pt to develop coping & personal stress Mgt strategies, Instruct patient to recognize signs & symptoms of depression, Instruct patient to recog Psychosocial - 30-Day Assess Psychosocial - 60-Day Assess Psychosocial - 90-Day Assess Psychosocial - Final Assessmen Patient Health Questionnaire Initial Assessment 1. Little interest or pleasure in doing things: Not at all 2. Feeling down, depressed, or hopeless: Not at all 3. Trouble falling or staying asleep, or sleeping too much: Nearly every day 4. Feeling tired or having little energy: Nearly every day 5. Poor appetite or overeating: Not at all 6. Feeling bad about yourself -- or that you are a failure or have let yourself or your family down: Not at all 7. Trouble concentrating on things, such as reading the newspaper or watching television: Not at all 8. Moving or speaking so slowly that other people could have noticed. Or the opposite - being so fidgety or restless that you have been moving around a lot more than usual: Not at all 9. Thoughts that you would be better off , or of hurting yourself in some way: Not at all How difficult have these problems made it for you to do your work, take care of things at home, or get along with other people?: Not difficult at all Total Score: 6 SARAH-Q SV Test - Statements CAD is a disease of the arteries in the heart: False Examples of risk factors for heart disease: True Angina is chest pain or discomfort: True The benefits of resistance training include: True Eating more meat and dairy products: False Anti-platelet medications such as aspirin are important: True The only effective way to manage stress: False An exercise warm-up slowly increases heart rate: True Prepared, processed foods usually have high sodium: True Depression is common after a heart attack: True The statin medications lower cholesterol: True To control blood pressure, lower the amount of sodium: True If someone gets chest discomfort during walking: False Transfats are partially hydrogenated vegetable oils: True Sleep apnea that is not treated increases the risk: I Don't Know To control cholesterol, one should become a vegetarian: False Someone knows if he/she is exercising at the right level: True Diabetes cannot be prevented with exercise & health eating: True Stress is a large risk for heart attack: True A diet that can help lower blood pressure is rich in: True - Total Score Total Correct Responses: 18 Self-Efficacy Initial Assessment We would like to know how confident you are in doing certain activities. Please select your confidence level for:: Select your confidence level for the following using the scale 1-10 where 1 is not at all confident and 10 is totally confident. Your score is the average of all 6 responses. Fatigue: How confident are you that you can keep the fatigue caused by your disease from interfering with the things you want to do? Select Number: 8 Physical Discomfort or Pain: How confident are you that you can keep the physical discomfort or pain of your disease from interfering with the things you want to do? Select Number: 8 Emotional Distress: How confident are you that you can keep the emotional distress caused by your disease from interfering with the things you want to do? Select Number: 9 Other Symptoms or Health Problems: How confident are you that you can keep other symptoms or health problems from interfering with the things you want to do? Select Number: 8 Different Tasks and Activities: How confident are you that you can do the different tasks and activities needed to manage your health condition so as to reduce your need to see a doctor? Select Number: 6 Medication: How confident are you that you can do things other than just taking medication to reduce how much your illness affects your everyday life? Select Number: 8 Total Score:: 7 Nutrition Survey - Nutrition Survey Initial Have you lost >10 lbs over the past 2 months without trying?: Yes Are you following a special diet at home for diabetes, low fat, or low salt?: Yes Are you interested in meeting with a dietitian for help understanding your diet?: No Do you eat less than 3 meals a day?: No Do you eat fatty meats (cadet, sausage, ribs, etc), fried foods, desserts, large amounts of salad dressings, margarine, butter, or cheese most days?: No Do you have food allergies? [Enter types in comment field]: No Do you eat in restaurants more than 3 times a week?: No Do you season food with salt, seasoning salt, or garlic salt?: Yes Do you used canned, boxed, frozen meals, or soups, seasoning packets?: Yes Total Score:: 4
[2021-04-23 14:19] VITALS: BP 126/48; PULSE 64; RESP 18; TEMP 36.4; O2SAT 97; BMI 28.9
[2021-04-23 14:56] VITALS: BP 126/48
== END ==
PROVIDERS: PCP Family Medicine; Referring Provider Internal Medicine Cardiovascular Disease; Visit Provider Internal Medicine Cardiovascular Disease
DX: I25.10 Atherosclerotic heart disease of native coronary artery without angina pectoris (principal); Z98.61 Coronary angioplasty status

== ENCOUNTER 2021-05-14 13:00 | Outpatient (RCR) | payer MEDICARE, OTHER, SELFPAY | END 2021-05-15 23:59 | LOC: CR 13:00 | PROVIDERS: PCP Family Medicine; Visit Provider Internal Medicine Cardiovascular Disease | DX: I25.10 Atherosclerotic heart disease of native coronary artery without angina pectoris (principal); Z98.61 Coronary angioplasty status | CPT/HCPCS: 93798 ==

== ENCOUNTER → 2021-05-17 09:37 | Outpatient (CLI) | payer MEDICARE, OTHER, SELFPAY ==
[2021-05-17 10:03] LABS: Absolute Lymphocyte Count 2.65 X10^3/uL (0.83-4.51); Absolute Neutrophil Count 8.1 X10^3/uL (2.0-7.7); Basophil# 0.07 X10^3/uL; Basophil% 0.6 % (0-1); Eosinophils% 0.9 % (0-5); Hematocrit 34.4 % (37-47); Hemoglobin 11.1 g/dL (12.0-15.0); Lymphocyte # 2.65 X10^3/ul (0.83-4.51); Lymphocyte % 22.6 % (19-41); Mean Corp Hgb Conc 32.3 g/dL (32-36); Mean Corpuscular Hgb 31.7 pg (27.0-32.0); Mean Corpuscular Volume 98.3 fL (81-99); Mean Platelet Vol. 9.3 fl (6.2-12.0); Monocyte# 0.64 X10^3/uL; Monocyte% 5.5 % (0-10); NRBC Flagged by Analyzer 0 % (0-5); Neutrophil # 8.08 X10^3/uL (2.7-7.7); Neutrophil % 68.9 % (47-70); Platelet Count 245 K/mm3 (150-450); RBC Distribution Width CV 15.1 % (11.6-14.6); RBC Distribution Width SD 54.1 fl (35.1-43.9); White Blood Count 11.7 K/mm3 (4.4-11.0)
[2021-05-17 10:24] LABS: BNP,B-Type NATRIURETIC PEPTIDE 415.2 pg/mL (0-100)
[2021-05-17 10:38] LABS: AST(SGOT) 13 U/L (15-37); Alanine Aminotransfer ALT/SGPT 29 U/L (13-56); Albumin, Serum 3.3 g/dL (3.2-5.0); Alkaline Phosphatase 38 U/L (45-117); Anion Gap 5 (5-15); BUN 22 mg/dL (7-18); BUN/Creat Ratio 20.8 RATIO (10-20); Chloride 102 mmol/L (98-107); Creatinine, Serum 1.06 mg/dL (0.55-1.02); EST Glomerular Filtration Rate 53 mL/min (>60); Est Glom Filt Rate - Afr Amer 64 mL/min (>60); Globulin 3.3 g/dL (2.2-4.2); Glucose 95 mg/dL (74-106); LDH 305 U/L (84-246); Potassium 3.7 mmol/L (3.5-5.1); Protein, Total 6.6 g/dL (6.4-8.2); Sodium Level 140 mmol/L (136-145)
[2021-05-18 08:16] LABS: Haptoglobin 141 mg/dL (41-333)
== END ==
PROVIDERS: PCP Family Medicine; Referring Provider Internal Medicine Medical Oncology; Visit Provider Internal Medicine Medical Oncology
DX: D59.10 Autoimmune hemolytic anemia, unspecified (principal); R63.5 Abnormal weight gain; R60.9 Edema, unspecified; J96.11 Chronic respiratory failure with hypoxia; I25.110 Atherosclerotic heart disease of native coronary artery with unstable angina pectoris; D64.9 Anemia, unspecified
CPT/HCPCS: 36415; 80053; 83010; 83615; 83880; 85025

== ENCOUNTER → 2021-05-24 13:16 | Outpatient (CLI) | payer MEDICARE, OTHER, SELFPAY ==
[2021-05-24 16:07] LABS: Anion Gap 9 (5-15); BUN 30 mg/dL (7-18); BUN/Creat Ratio 25.4 RATIO (10-20); Calcium,Total 9.3 mg/dL (8.5-10.1); Chloride 97 mmol/L (98-107); Creatinine, Serum 1.18 mg/dL (0.55-1.02); EST Glomerular Filtration Rate 46 mL/min (>60); Est Glom Filt Rate - Afr Amer 56 mL/min (>60); Glucose 167 mg/dL (74-106); Potassium 4.2 mmol/L (3.5-5.1); Sodium Level 138 mmol/L (136-145)
== END ==
PROVIDERS: PCP Family Medicine; Referring Provider Internal Medicine Cardiovascular Disease; Visit Provider Internal Medicine Cardiovascular Disease
DX: R63.5 Abnormal weight gain (principal); R60.9 Edema, unspecified
CPT/HCPCS: 36415; 80048

== ENCOUNTER 2021-06-13 13:00 | Outpatient (RCR) | payer MEDICARE, OTHER, SELFPAY ==
--- NOTE | 2021-05-21 09:49 | CR.ITP_ITS ---
Diagnosis Exercise - 30-day Assessment - Visit Date of Eval: 05/21/21 Session #:: 10 - Physician Prescribed Exercise Modalities: NuStep Frequency: 3x/week for 12 weeks [36 sessions] Intensity: 60-80% of age predicted maximum heart rate reserve Current METSs:: 4 Target Heart Rate:: 89-114 Current RPE:: 13 Maximum Excercise HR:: 87 Resting Blood Pressure: 150/48 Maximum Exercise Blood Pressure: 168/64 EKG Type: NSR to sinus tachy with frequent pac and bursts of pat. - Outcomes & Goals Goals:: Verbalizes understanding of THR, RPE & goal METS by session 6, Documents in home exercise log/reports 30 min aerobic 5 day/wk by DC, Demonstrates accurate pulse taking by DC, Other additional outcome/goals: see below - Intervention & Plan Exercise Program Goals: Instruct on personal THR & RPE, Instruct on MET level & personal MET goal, Show patient to take own pulse /validate performance until accurate, Instruct on home exercise, Other additional plan/int - 30-day Reassessments 30 day Reassessments:: Progressing - Physical Activity Home Exercise Physical Activity - Home Exercise: Safe Exercise, Warm-up, Self-monitoring, Cool-Down, Home Exercise > 30 min Daily, Sitting Time <3 hours/daily - Outcomes & Goals Outcomes/Goals: Demonstrates correct Warm-up/exercise Cool-Down (S3) if = 2.5 METs, Verbalizes symptoms of exercise intolerance by Session 3 (S3), Demonstrate safe equipment use (S3) & follows exercise prescrition (6), Other: See below - Intervention & Plan Plan/Intervention: Instruct warm-up & cool-down if exercising at > 2 METs, Instruct on symptoms of exercise intolerance & actions to take, Instruct & monitor on saf, Assess intial functional capacity & safety risk, Other See below - 30-day Reassessments 30 day Reassessments:: Progressing Nutrition - Initial Assessment Nutrition - 30-Day Assessment - Program Goals Nutrition Program Goals: LDL <100 optimal. 100 - 129 Near optimal. 130 - 159 Borderline High. 160 - 189 High. Total Cholesterol <200 desirable. 200 - 239 Borderline High. >/= 240 High. HDL < 40 Low >/=60 High. Triglycerides <150 desirable. <199 optimal. VlDL 5 - 40. HgbA1C <7%. BMI <25 Patient has diagnosis of Hyperlipidemia (ICD E78)?: Yes - Visit Date of Assessment:: 05/21/21 - Cholesterol/Lipids Determine presence & major risk factors that modify LDL goal: Hypertension or hypertensive medication, Low HDL cholesterol <40 mg/dL*, Family history of premature CHD in Male < 55 years: female <65 yearsFa, Age men > 45 years; women >/= 55 years Outcomes/Goals: Pt IDs own risk factors & lifestyle modifications by Session 10, Verbalizes symptoms of angina & response by session 3., Pt independently manages, Other Additional Outcomes/Goals: Intervention/Plan: Advocate for lipid panel cholesterol medication if applicable, Instruct on personal lipid levels & lipid goals/NCEP guidelines, Instruct on cholesterol, Other additional plan/int 30-day Reassessments:: Progressing - Diabetes (Other Core Measures) Diabetes Type: Not Applicable - Weight Mgt (Other Care) Weight:: 75.75 kg Outcomes/Goals: Pt sets, maintains & shows weight loss goal & trend during rehab, Other additional outcomes/goals Intervention/Plan: Instruct on ideal BMI & set weight loss goal w/patient, Assist pt to ID & incorporate diet changes for weight loss by S9, Refer to Structured Weight Loss program as appropriate, Encourage goal of using 250- 300dcal per session for weight loss, Other additional plan/interventions 30 day Reassessments:: Progressing - Healthy Eating Habits Will attend diet classes:: Yes Outcomes/Goals:: Consume diet rich in vegs,fruits,whole grain/high fiber,fish,lean meat, Limit sat/trans fats,cholesterol & added salts & sugars, Other additional outcome/goals: Intervention/Plan:: Assess current eating habits, Other Additional plan/interventions 30-day Reassessments:: Progressing - Education Gave educational materials for:: Signs & symptoms of hypoglycemia, Signs & symptoms of hyperglycemia, Relate diabetes to coronary artery disease, Healthy eating Nutrition - 60-Day Assessment Nutrition - 90-Day Assessment Nutrition - Final Assessment Medical - Initial Assessment Medical- 30-Day Assessment - Visit Date of Eval: 05/21/21 Session #:: 10 - Medication Compliance Preventative Medication(s):: Aspirin, Clopidogrel/P2Y12 inhibit, Statin/lipid, Beta skylar H/O mental health issues: depression, anxiety, or addiction?: No Doesn?t believe in the benefits of treatment?: No Believes medications are unnecessary or harmful?: No Has a concern about medication side effects?: No Expresses concern over the cost of medications?: No Outcomes/Goals: Verbalizes medications,desired effect & common side effects @ DC, Pt self-reports following medication regimen, Keeps card in wallet w/medications listed by DC, Other additional outcome/goals: Interventions/plans: Instruct on medication effects & side effects, Review medication list w/patient every two weeks, Instruct importance of taking meds as ordered & assist problem solving, Other additional 30-day Reassessments:: Progressing - Tobacco Use Tobacco Use: Non-smoker Do you use smokeless tobacco?: No - Hypertension Hypertension Diagnosis:: Hypertension ICD-10 I10 Resting Blood Pressure:: 150/48 [place] [employer] Hypertension Guidelines: [place] [employer] Hypertension Guidelines. Normal BP Less than 120/80. Elevated BP 120/80. Hypertension Stage 1: BP 130-139/80-89. Hypertesnion Stage 2: BP 140 or higher/90 or higher. Hypertension Crisis: BP higher than 180/120 Peak Exercise Blood Pressure:: 168/64 Outcomes/Goals: Able to verbalize/achieve optimal blood pressure <130/80, Incorporates diet changes & exercise for blood pressure control by DC, Other additional outcomes/goals Interventions/plan: Instruct on optimal blood pressure, hypertension & medications, Instruct on effects of sodium, alcohol, stress, exercise &hypertension, Other additional plan/interventions 30 day Reassessments:: Progressing - Tobacco Cessation Referral Smoking Cessation Referral:: No Individual Education/Counseling:: No Education Schedule Given:: Yes Medical- 60-Day Assessment Medical- 90-Day Assessment Medical - Final Assessment Psychosocial - Initial Assess Psychosocial - 30-Day Assess - VIsit Date of Eval: 05/21/21 Session #:: 10 History of previous Mental disease:: No - Outcomes/Goals: See list Psychosocial Outcomes/Goals:: ID's personal stressors & 2 strategies to manage stress by discharge, Other Additional outcome/goals: - Intervention/Plan: See List Interventions/Plan:: Assess stressors,coping strategies & signs of derpression on admission, Instruct/assist pt to develop coping & personal stress Mgt strategies, Refer to Behavioral Health if appropriate, Refer to Physician if appropriate, Instruct patient to recognize signs & symptoms of depression, Instruct patient to recog, Other additional plan/intervention - 30-day Reassessments: 30 day Reassessments:: Progressing Psychosocial - 60-Day Assess Psychosocial - 90-Day Assess Psychosocial - Final Assessmen Patient Health Questionnaire 30-Day Re-eval Assessment 1. Little interest or pleasure in doing things: Not at all 2. Feeling down, depressed, or hopeless: Not at all 3. Trouble falling or staying asleep, or sleeping too much: Nearly every day 4. Feeling tired or having little energy: Nearly every day 5. Poor appetite or overeating: Not at all 6. Feeling bad about yourself -- or that you are a failure or have let yourself or your family down: Not at all 7. Trouble concentrating on things, such as reading the newspaper or watching television: Not at all 8. Moving or speaking so slowly that other people could have noticed. Or the opposite - being so fidgety or restless that you have been moving around a lot more than usual: Not at all 9. Thoughts that you would be better off , or of hurting yourself in some way: Not at all How difficult have these problems made it for you to do your work, take care of things at home, or get along with other people?: Not difficult at all Total Score: 6 Self-Efficacy 30-Day Re-eval Assessment We would like to know how confident you are in doing certain activities. Please select your confidence level for:: Select your confidence level for the following using the scale 1-10 where 1 is not at all confident and 10 is totally confident. Your score is the average of all 6 responses. Fatigue: How confident are you that you can keep the fatigue caused by your disease from interfering with the things you want to do? Select Number: 8 Physical Discomfort or Pain: How confident are you that you can keep the physical discomfort or pain of your disease from interfering with the things you want to do? Select Number: 8 Emotional Distress: How confident are you that you can keep the emotional distress caused by your disease from interfering with the things you want to do? Select Number: 9 Other Symptoms or Health Problems: How confident are you that you can keep other symptoms or health problems from interfering with the things you want to do? Select Number: 8 Different Tasks and Activities: How confident are you that you can do the different tasks and activities needed to manage your health condition so as to r educe your need to see a doctor? Select Number: 6 Medication: How confident are you that you can do things other than just taking medication to reduce how much your illness affects your everyday life? Select Number: 8 Total Score:: 7 Nutrition Survey
[2021-05-21 10:05] VITALS: BP 150/48; BP 168/64
== END 2021-06-15 23:59 ==
LOC: CR 13:00
PROVIDERS: PCP Family Medicine; Visit Provider Internal Medicine Cardiovascular Disease
DX: I25.10 Atherosclerotic heart disease of native coronary artery without angina pectoris (principal); Z95.5 Presence of coronary angioplasty implant and graft
CPT/HCPCS: 93798

== ENCOUNTER 2021-06-19 08:36 | Emergency (ER) | payer MEDICARE, OTHER, SELFPAY ==
[2021-06-19 08:36] VITALS: BP 180/63; PULSE 68; RESP 18; TEMP 36.6; O2SAT 92; BMI 31.4
[2021-06-19 08:52] VITALS: O2SAT 95
[2021-06-19 08:53] VITALS: BP 180/63; PULSE 68; RESP 18; TEMP 36.6; O2SAT 92
--- NOTE | 2021-06-19 09:22 | EKG12_ITS ---
Test Reason : SOB Blood Pressure : / mmHG Vent. Rate : 063 BPM Atrial Rate : 063 BPM P-R Int : 132 ms QRS Dur : 082 ms QT Int : 406 ms P-R-T Axes : 063 019 046 degrees QTc Int : 415 ms Normal sinus rhythm Nonspecific ST abnormality Abnormal ECG Confirmed by LOE WYNN, PORTIA ([id number]), story editor SUMI PEREZ ([id number]) on 06/21/2021 11:04:20 AM Referred By: AMINA Confirmed By:PORTIA BAILEY MD
--- NOTE | 2021-06-19 09:23 | EDS_ITS ---
HPI History of Present Illness Chief Complaint: Cough Informant: patient Onset/Context/Timing Onset: Yesterday Context: gradual Timing: Intermittent Quality: Positive for Orthopnea Current Severity: Gone (While sitting) Maximum Severity: Mild Worsened by: Lying flat Relieved by: - (Sitting up) Associated Symptoms cough Chest Pain: Positive for None Narrative Narrative: Patient developed cold symptoms yesterday she took her temperature this morning several times and it was 101.7 each time, including right before she came although her temperature is not reading a fever here. Short of breath only when she lies back in her recliner. She is been very weak and tired for months, she states she was on oxygen but was weaned off of it, was diagnosed by CT with mediastinal lymphadenopathy but she states that the specialists she has seen do not know why or what kind of lung problems she has. She has been vaccinated against Covid but she did not get the booster according to her doctor's advice. She lost taste and smell several months ago but tested negative for Covid 3 times or so, she has normal sense of taste now. She has not tested herself for Covid for this illness yet. She denies any known sick contacts. Her who lives with her is not ill currently. [facility] Medical History Acute febrile illness Anemia Angina pectoris Anginal equivalent Aortic insufficiency Atherosclerotic heart disease of [place] coronary artery without angina pectoris BiPAP (biphasic positive airway pressure) dependence CAD (coronary artery disease) Cardiology follow-up encounter Carotid artery disease Chest pain Chronic cough Chronic hypoxemic respiratory failure Elevated troponin Essential hypertension Hemolytic anemia High cholesterol History of echocardiogram History of stress test Hyperlipidemia Hypertension Hypothyroidism Loss of appetite Mediastinal lymphadenopathy Non-smoker Non-ST elevation (NSTEMI) myocardial infarction Nonrheumatic aortic (valve) insufficiency Nonrheumatic aortic (valve) stenosis Nonrheumatic mitral (valve) insufficiency On home oxygen therapy ABDIAS (obstructive sleep apnea) Shortness of breath on exertion Thyroid disease Valvular heart disease Wears dentures Wears glasses Home Medications ascorbic acid (vitamin C) 500 mg PO DAILY 01/16/18 [History Last Taken 02/21/21] folic acid 0.4 mg PO DAILY@0800 01/16/18 [History Last Taken 02/21/21] coenzyme Q10 100 mg PO DAILY 03/09/18 [History Last Taken 02/21/21] omega-3 fatty acids-fish oil 1 cap PO DAILY 11/12/18 [History Last Taken 02/21/21] levothyroxine 100 mcg PO DAILY 04/18/20 [History Last Taken 02/21/21] atorvastatin 40 mg tablet 40 mg PO DAILY #90 tab 07/24/20 [Rx Last Taken 02/20/21] isosorbide mononitrate 30 mg tablet,extended release 24 hr 30 mg PO BID #180 tab 01/15/21 [Rx Last Taken 02/21/21] multivitamin 1 tab PO DAILY 02/22/21 [History Last Taken 02/21/21] aspirin 81 mg PO DAILY@0800 #0 tab 02/27/21 [Rx Last Taken 02/21/21] ferrous sulfate 325 mg PO DAILY #60 tab 02/27/21 [Rx Last Taken Unknown] pantoprazole [Protonix] 40 mg PO DAILY #30 tab 02/27/21 [Rx Last Taken Unknown] nitroglycerin 0.4 mg sublingual tablet 0.4 mg SUBLINGUAL Q5-15M PRN 10 Days #25 tab 03/01/21 [Rx Last Taken Unknown] clopidogrel 75 mg tablet 75 mg PO DAILY #90 tab 04/20/21 [Rx Last Taken Unknown] losartan 50 mg tablet 50 mg PO BID #180 tab 05/03/21 [Rx Last Taken Unknown] furosemide 40 mg tablet 40 mg PO DAILY #90 tab 05/16/21 [Rx Last Taken Unknown] calcium citrate 200 mg (950 mg) tablet See Rx Instructions .ROUTE .COMPLEX 05/30/21 [History Last Taken Unknown] cholecalciferol (vitamin D3) 25 mcg (1,000 unit) tablet 25 mcg PO DAILY 05/30/21 [History Last Taken Unknown] magnesium 250 mg tablet 250 mg PO DAILY 05/30/21 [History Last Taken Unknown] prednisone 20 mg tablet 9 mg PO BREAKFAST tab 05/30/21 [History Last Taken Unknown] vitamin E (dl, acetate) 180 mg (400 unit) capsule 180 mg PO DAILY 05/30/21 [History Last Taken Unknown] metoprolol succinate 100 mg tablet,extended release 24 hr 100 mg PO BID #90 tab 06/07/21 [Rx Last Taken Unknown] Allergy/AdvReac Type Severity Reaction Status Date / Time Iodinated Contrast Media Allergy Intermediate Rash Verified 06/19/21 08:36 [Iodinated Contrast- Oral and IV Dye] ramipril [From Altace] AdvReac Severe cough Verified 06/19/21 08:36 ticagrelor [From Brilinta] AdvReac Dyspnea Verified 06/19/21 08:36 Family History Mother , Age 63 Myocardial infarction Father , Age 28 Colon cancer Other Heart disease Surgical History History of axillary surgery History of cardiac catheterization History of cholecystectomy History of percutaneous transluminal coronary angioplasty (04/16/19) Hx of colonoscopy Presence of stent in coronary artery (04/09/21) Social History Smoking Status: Never smoker second hand exposure: No alcohol intake: never substance use type: does not use caffeine: Yes Type: coffee Number of servings: 1 what type of physical activity do you participate in: none frequency: does not exercise ROS ROS ED Constitutional Constitutional ED: Reports chills, fatigue, fever(s), headache(s) and malaise; Denies body ache(s) Eyes Eyes: Denies change in vision or diplopia ENT ENT ED: Reports as per HPI, nasal congestion and sore throat; Denies loss taste/smell or rhinorrhea Cardiovascular Cardiovascular: Reports edema and orthopnea; Denies chest pain or palpitations Respiratory/Chest Respiratory/Chest: Reports as per HPI, cough, dyspnea and orthopnea Gastrointestinal Gastrointestinal: Reports diarrhea; Denies abdominal pain, nausea or vomiting Genitourinary Genitourinary ED: Denies dysuria or hematuria Musculoskeletal Musculoskeletal: Denies back pain or neck pain Integumentary Denies abscess or rash Neurologic Neurologic: Reports headache(s); Denies paresthesias or weakness Psychiatric Psychiatric: Denies anxiety or suicidal thoughts EXAM Physical Exam Const Vital Signs: 06/19/21 08:36 06/19/21 08:53 06/19/21 09:47 Temperature 97.8 F 97.8 F 99.4 F H Temperature Source Temporal Temporal Temporal Pulse Rate 68 68 64 Respiratory Rate 18 18 21 H Respiratory Effort Normal Non-Labored Respiratory Depth Normal Respiratory Pattern Normal Blood Pressure 180/63 H 180/63 H 172/66 H Blood Pressure Mean 102 102 101 Pulse Ox 92 92 94 Oxygen Delivery Method Room Air Room Air Room Air Positive well nourished and well developed Constitutional Narrative: Well-appearing, no distress General Appearance ED: well developed and NAD HEENT Reports moist mucous membranes normocephalic and atraumatic Eyes PERRL and EOMs intact bilaterally Neck full ROM and supple Resp normal respiratory effort and clear to auscultation bilaterally Cardio regular rate and regular rhythm Cardio Narrative: 2/6 systolic murmur Rate: Negative for tachycardic GI non-tender and non-distended Auscultation: normoactive bowel sounds Palpation: soft Back/Spine no CVA tenderness General Back: other FROM Extremity normal to inspection and no calf tenderness General Extremety ED: Yes edema; Negative for pulses abnormal or tenderness General Extremity: edema bilateral lower extremity Details: mild; Negative for pulses abnormal Neuro oriented x3, CN's II-XII intact bilaterally and no sensory deficits noted Sensorium / Orientation: awake and alert Motor Exam: strength 5/5 throughout Skin no rashes or lesions noted and no wounds MDM MDM MDM Narrative Medical decision making narrative: Testing positive for Covid here. May be mild CHF superimposed on an infiltrate, BNP also elevated, her leukocytosis is probably related to her chronic prednisone intake. She is not hypoxic and does not require admission for other reason. We will increase her diuretic for several days, refer her for monoclonal antibody infusion therapy, and discussed reasons to return. In her last echocardiogram, she did have grade 1 diastolic dysfunction and normal systolic function, she has multiple leaky valves, if this continues she may need to have a repeat echo but I do not think she needs an emergent one right now. Lab Data Attestation: I reviewed the patient's lab results. Labs: Laboratory Results - last 24 hr 06/19/21 06/19/21 06/19/21 09:39 09:39 09:39 WBC 11.8 H RBC 3.86 L Hgb 12.1 Hct 37.4 MCV 96.9 MCH 31.3 MCHC 32.4 RDW Std Deviation 52.7 H RDW Coeff of Martha 14.8 H Plt Count 241 MPV 9.8 Immature Gran % (Auto) 0.900 Neut % (Auto) 74.4 H Lymph % (Auto) 12.1 L [place] % (Auto) 9.2 Eos % (Auto) 2.9 Baso % (Auto) 0.5 Absolute Neuts (auto) 8.8 H Absolute Lymphs (auto) 1.42 Nucleated RBC % 0 Sodium 140 Potassium 3.6 Chloride 99 Carbon Dioxide 32.0 Anion Gap 9 BUN 19 H Creatinine 1.18 H Estim Creat Clear Calc 28.57 Est GFR (MDRD) Af Amer 56 L Est GFR (MDRD) Non-Af 46 L BUN/Creatinine Ratio 16.1 Glucose 105 Lactic Acid Calcium 9.5 Troponin I High Sens 23 B-Natriuretic Peptide 646.9 H 06/19/21 09:39 WBC RBC Hgb Hct MCV MCH MCHC RDW Std Deviation RDW Coeff of Martha Plt Count MPV Immature Gran % (Auto) Neut % (Auto) Lymph % (Auto) [place] % (Auto) Eos % (Auto) Baso % (Auto) Absolute Neuts (auto) Absolute Lymphs (auto) Nucleated RBC % Sodium Potassium Chloride Carbon Dioxide Anion Gap BUN Creatinine Estim Creat Clear Calc Est GFR (MDRD) Af Amer Est GFR (MDRD) Non-Af BUN/Creatinine Ratio Glucose Lactic Acid 2.0 Calcium Troponin I High Sens B-Natriuretic Peptide Radiography Diagnostic Testing: Clinical Impression(s) from Imaging Studies Chest X-Ray 06/19/21 09:55 IMPRESSION: Pulmonary infiltrate in the left lower lobe with a small left pleural effusion. Increased markings at the right lung base. Mild degree of CHF. Electronically Signed: Cristiano Stout MD at 10:21 EST , Service support , EKG Initial EKG: Attestation: I personally reviewed and interpreted this EKG as follows: Interpretation: Sinus Rhythm and No Acute Injury Pattern Comments: normal ekg w/ artifact Discharge Plan Triage Chief Complaint: Cough ED Provider: Miguel Mcelroy Dx/Rx/DC Orders Clinical Impression: COVID-19, CHF exacerbation Instructions: Coronavirus Disease 2019 (COVID-19): Caring for Yourself or Others, Heart Failure Dc Prescriptions: No Action vitamin E (dl, acetate) 180 mg (400 unit) capsule 180 mg PO DAILY RF: 0 cholecalciferol (vitamin D3) 25 mcg (1,000 unit) tablet 25 mcg PO DAILY RF: 0 magnesium 250 mg tablet 250 mg PO DAILY RF: 0 prednisone 20 mg tablet 9 mg PO BREAKFAST RF: 0 clopidogrel 75 mg tablet 75 mg PO DAILY Qty: 90 RF: 3 folic acid 0.4 MG tablet 0.4 mg PO DAILY@0800 RF: 0 ascorbic acid (vitamin C) 500 MG capsule 500 mg PO DAILY RF: 0 coenzyme Q10 100 MG capsule 100 mg PO DAILY RF: 0 omega-3 fatty acids-fish oil 1 EACH capsule 1 cap PO DAILY RF: 0 calcium citrate 200 mg (950 mg) tablet See Rx Instructions .ROUTE .COMPLEX RF: 0 levothyroxine 100 MCG tablet 100 mcg PO DAILY RF: 0 multivitamin Tablet 1 tab PO DAILY RF: 0 ferrous sulfate 325 mg (65 mg iron) tablet 325 mg PO DAILY Qty: 60 RF: 0 aspirin 81 MG tablet 81 mg PO DAILY@0800 Qty: 0 RF: 0 pantoprazole [Protonix] 40 mg tablet,delayed release (DR/EC) 40 mg PO DAILY Qty: 30 RF: 0 atorvastatin 40 mg tablet 40 mg PO DAILY Qty: 90 RF: 3 isosorbide mononitrate 30 mg tablet extended release 24 hr 30 mg PO BID Qty: 180 RF: 3 nitroglycerin 0.4 mg tablet, sublingual 0.4 mg SUBLINGUAL Q5-15M PRN (Reason: chest pain) 10 Days Qty: 25 RF: 3 losartan 50 mg tablet 50 mg PO BID Qty: 180 RF: 3 furosemide 40 mg tablet 40 mg PO DAILY Qty: 90 RF: 3 metoprolol succinate 100 mg tablet extended release 24 hr 100 mg PO BID Qty: 90 RF: 4 Primary Care Provider: Boyd Casiano Referrals: Boyd Casiano MD [Primary Care Provider] - (next week) Activity Restrictions/Additional Instructions: For the next 3 days, take an additional dose of Lasix in the early or mid afternoon. Try to get a home portable pulse oximeter and closely watch your oxygen levels periodically. If you stay below 90% for more than a minute or so, and/or you are feeling like your breathing is getting worse, return to the emergency department for further evaluation. You are a candidate for monoclonal antibody infusion therapy, see the attached instructions for more information. They will call you concerning when they want you to come to the clinic to get the infusion which is a one-time dose to help protect you from getting more ill and becoming hospitalized with life- threatening illness due to Covid given your risk for worsening. Disposition Disposition: Home, Self Care
[2021-06-19 09:47] VITALS: BP 172/66; PULSE 64; RESP 21; TEMP 37.4; O2SAT 94
[2021-06-19] MEDS: Acetaminophen 500 MG Tablet 1000 MG PO (09:48)
[2021-06-19 09:49] LABS: Absolute Lymphocyte Count 1.42 X10^3/uL (0.83-4.51); Absolute Neutrophil Count 8.8 X10^3/uL (2.0-7.7); Basophil# 0.06 X10^3/uL; Basophil% 0.5 % (0-1); Eosinophil# 0.34 X10^3/uL; Eosinophils% 2.9 % (0-5); Hematocrit 37.4 % (37-47); Hemoglobin 12.1 g/dL (12.0-15.0); Lymphocyte # 1.42 X10^3/ul (0.83-4.51); Lymphocyte % 12.1 % (19-41); Mean Corp Hgb Conc 32.4 g/dL (32-36); Mean Corpuscular Hgb 31.3 pg (27.0-32.0); Mean Corpuscular Volume 96.9 fL (81-99); Mean Platelet Vol. 9.8 fl (6.2-12.0); Monocyte# 1.08 X10^3/uL; Monocyte% 9.2 % (0-10); NRBC Flagged by Analyzer 0 % (0-5); Neutrophil # 8.76 X10^3/uL (2.7-7.7); Neutrophil % 74.4 % (47-70); Platelet Count 241 K/mm3 (150-450); RBC Distribution Width CV 14.8 % (11.6-14.6); RBC Distribution Width SD 52.7 fl (35.1-43.9); Red Blood Count 3.86 M/mm3 (4.2-5.4); White Blood Count 11.8 K/mm3 (4.4-11.0)
--- NOTE | 2021-06-19 09:55 | RAD_ITS ---
STUDY: X-RAY CHEST REASON FOR EXAM: Female, 85 years old. Cough sob fever TECHNIQUE: Single AP portable view of the chest. COMPARISON: Comparison is made with prior study dated 04/06/2021. FINDINGS: EKG electrodes are seen. Pulmonary infiltration is seen in the left lower lobe with blunting of the left costophrenic angle. Mild increased markings at the right lung base. This is superimposed on a mild degree of vascular congestion. There is mild cardiac enlargement. Normal mediastinum and to. Normal visualized pulmonary arteries. There is atherosclerotic calcification of the aortic arch with tortuosity. There are diffuse degenerative changes of the visualized thoracic spine. Normal visualized ribs, clavicles, and shoulders. There is no demonstrated abnormality of the visualized soft tissue structures of the upper abdomen. RAD/Chest 1 View (Portable) IMPRESSION: Pulmonary infiltrate in the left lower lobe with a small left pleural effusion. Increased markings at the right lung base. Mild degree of CHF. Electronically Signed: Cristiano Stout MD at 10:21 EST , Service support ,
[2021-06-19 10:06] LABS: Anion Gap 9 (5-15); BUN 19 mg/dL (7-18); BUN/Creat Ratio 16.1 RATIO (10-20); Calcium,Total 9.5 mg/dL (8.5-10.1); Chloride 99 mmol/L (98-107); Creatinine, Serum 1.18 mg/dL (0.55-1.02); EST Glomerular Filtration Rate 46 mL/min (>60); Est Glom Filt Rate - Afr Amer 56 mL/min (>60); Estimated Creatinine Clearance 28.57 ml/min; Glucose 105 mg/dL (74-106); Potassium 3.6 mmol/L (3.5-5.1); Sodium Level 140 mmol/L (136-145); Troponin-I HS 23 pg/mL (3.0-54.0)
[2021-06-19 10:13] LABS: BNP,B-Type NATRIURETIC PEPTIDE 646.9 pg/mL (0-100)
[2021-06-19 12:22] VITALS: BP 134/62; PULSE 70; RESP 16; O2SAT 96
[2021-06-19 13:43] LABS: Reflex Lactate? Y
== END 2021-06-19 12:23 | disposition home or self-care (01) ==
PROVIDERS: Emergency Provider Emergency Medicine; PCP Family Medicine; Visit Provider Emergency Medicine
DX: U07.1 COVID-19 (principal); I50.9 Heart failure, unspecified; E78.00 Pure hypercholesterolemia, unspecified; I25.10 Atherosclerotic heart disease of native coronary artery without angina pectoris; Z79.82 Long term (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 aspirin; Z79.899 Other long term (current) drug therapy
CPT/HCPCS: 71045; 80048; 83605; 83880; 84484; 85025; 87040; 87426; 87804; 93005; 99285; J7050

== ENCOUNTER 2021-06-25 17:23 | Outpatient (CLI) | payer MEDICARE, OTHER, SELFPAY ==
[2021-06-20 13:17] VITALS: BMI 31.9
[2021-06-25 17:50] VITALS: BP 178/55; PULSE 53; RESP 16; TEMP 36.8; O2SAT 96; BMI 31.4
[2021-06-25] MEDS: 0.9% Saline Lock 10 ML Syringe IV (17:59)
[2021-06-25 18:54] VITALS: BP 169/50; PULSE 51; RESP 18; TEMP 36.9; O2SAT 97
[2021-06-25 20:22] VITALS: BP 140/102; PULSE 86; RESP 16; TEMP 36.6; O2SAT 100
== END 2021-06-25 23:59 | disposition home or self-care (01) ==
LOC: MS3OUT 17:23 → MS3 17:24
PROVIDERS: PCP Family Medicine; Referring Provider Nurse Practitioner Adult Health; Visit Provider Nurse Practitioner Adult Health
DX: Z23 Encounter for immunization (principal); U07.1 COVID-19
CPT/HCPCS: J7050; M0243; A4216; Q0244

== ENCOUNTER 2021-06-26 03:44 | Inpatient (IN) | payer MEDICARE, OTHER, SELFPAY ==
[2021-06-20 13:17] VITALS: BMI 31.9
[2021-06-26] VITALS (20 sets, daily range): BP systolic 117–160; BP diastolic 41–92; PULSE 51–80; RESP 18–32; TEMP 36.3–39.5; O2SAT 89–100; BMI 30.4
--- NOTE | 2021-06-26 04:06 | CT_ITS ---
STUDY: CTA CHEST REASON FOR EXAM: Female, 85 years old. covid 19 pulmonary embolism RADIATION DOSAGE (If Supplied By Facility): CTDIvol = ( 11.80 ) mGy, DLP = ( 401.36 ) mGycm TECHNIQUE: The examination was performed with the intravenous administration of IV 100mL Isovue-370. Post-processing of the angiographic images was performed, with multiplanar reformation and 3D reconstruction. Individualized dose optimization techniques were used for this CT. COMPARISON: CT chest from 11/30/2020 FINDINGS: Normal enhancement of the main pulmonary artery and right and left pulmonary arteries. Normal enhancement of the bilateral peripheral pulmonary arteries. There is no demonstrated pulmonary embolism. Normal thoracic aorta and visualized great vessels. There is no demonstrated aortic dissection. There are calcifications of the coronary arteries. There are mitral annulus calcifications. There is mild cardiac enlargement. There is enlarged mediastinal and hilar lymph nodes likely reactive. Normal visualized trachea and bronchi. The lungs demonstrate patchy groundglass bilateral opacities. There is a small left pleural and trace right pleural effusion. Normal chest wall structures. There are degenerative changes of thoracic spine. Normal visualized upper abdomen. CT/CTA Chest W/WO Contrast IMPRESSION: No demonstrated pulmonary embolism or arterial dissection. Diffuse scattered pulmonary airspace opacities concerning for underlying infectious inflammatory process. Small left and trace right pleural effusions. Electronically Signed: Rob Pizano MD at 6:15 EST Tel , Service support ,
--- NOTE | 2021-06-26 04:19 | EX.ED.DYSGE1 ---
HPI History of Present Illness Chief Complaint: Shortness of Breath Informant: patient, spouse/S.O. and EMS Narrative Narrative: 85-year-old female history of CHF, CAD, and interstitial lung disease presenting to the emergency department with COVID-19. Patient originally got sick on 18 June making her about day 8. She got monoclonal antibody infusion last evening. During the night the patient stated that she was feeling very cold and shaky so her called the ambulance. She has worn oxygen at the home does not exactly sure why but does not typically wear it because her oxygen levels have been reportedly in the high to mid 90s. Patient has not taken anything for fever. She was COVID vaccinated. notes that she seems a bit more confused than normal. [facility] Medical History Acute febrile illness Anemia Angina pectoris Anginal equivalent Aortic insufficiency Atherosclerotic heart disease of [place] coronary artery without angina pectoris BiPAP (biphasic positive airway pressure) dependence CAD (coronary artery disease) Cardiology follow-up encounter Carotid artery disease Chest pain Chronic cough Chronic hypoxemic respiratory failure Elevated troponin Essential hypertension Hemolytic anemia High cholesterol History of echocardiogram History of stress test Hyperlipidemia Hypertension Hypothyroidism Loss of appetite Mediastinal lymphadenopathy Non-smoker Non-ST elevation (NSTEMI) myocardial infarction Nonrheumatic aortic (valve) insufficiency Nonrheumatic aortic (valve) stenosis Nonrheumatic mitral (valve) insufficiency On home oxygen therapy ABDIAS (obstructive sleep apnea) Shortness of breath on exertion Thyroid disease Valvular heart disease Wears dentures Wears glasses Home Medications ascorbic acid (vitamin C) 500 mg PO DAILY 01/16/18 [History Last Taken 02/21/21] folic acid 0.4 mg PO DAILY@0800 01/16/18 [History Last Taken 02/21/21] coenzyme Q10 100 mg PO DAILY 03/09/18 [History Last Taken 02/21/21] omega-3 fatty acids-fish oil 1 cap PO DAILY 11/12/18 [History Last Taken 02/21/21] levothyroxine 100 mcg PO DAILY 04/18/20 [History Last Taken 02/21/21] atorvastatin 40 mg tablet 40 mg PO DAILY #90 tab 07/24/20 [Rx Last Taken 02/20/21] isosorbide mononitrate 30 mg tablet,extended release 24 hr 30 mg PO BID #180 tab 01/15/21 [Rx Last Taken 02/21/21] multivitamin 1 tab PO DAILY 02/22/21 [History Last Taken 02/21/21] aspirin 81 mg PO DAILY@0800 #0 tab 02/27/21 [Rx Last Taken 02/21/21] ferrous sulfate 325 mg PO DAILY #60 tab 02/27/21 [Rx Last Taken Unknown] pantoprazole [Protonix] 40 mg PO DAILY #30 tab 02/27/21 [Rx Last Taken Unknown] nitroglycerin 0.4 mg sublingual tablet 0.4 mg SUBLINGUAL Q5-15M PRN 10 Days #25 tab 03/01/21 [Rx Last Taken Unknown] clopidogrel 75 mg tablet 75 mg PO DAILY #90 tab 04/20/21 [Rx Last Taken Unknown] losartan 50 mg tablet 50 mg PO BID #180 tab 05/03/21 [Rx Last Taken Unknown] furosemide 40 mg tablet 40 mg PO DAILY #90 tab 05/16/21 [Rx Last Taken Unknown] calcium citrate 200 mg (950 mg) tablet See Rx Instructions .ROUTE .COMPLEX 05/30/21 [History Last Taken Unknown] cholecalciferol (vitamin D3) 25 mcg (1,000 unit) tablet 25 mcg PO DAILY 05/30/21 [History Last Taken Unknown] magnesium 250 mg tablet 250 mg PO DAILY 05/30/21 [History Last Taken Unknown] prednisone 20 mg tablet 9 mg PO BREAKFAST tab 05/30/21 [History Last Taken Unknown] vitamin E (dl, acetate) 180 mg (400 unit) capsule 180 mg PO DAILY 05/30/21 [History Last Taken Unknown] metoprolol succinate 100 mg tablet,extended release 24 hr 100 mg PO BID #90 tab 06/07/21 [Rx Last Taken Unknown] Allergy/AdvReac Type Severity Reaction Status Date / Time Iodinated Contrast Media Allergy Intermediate Rash Verified 06/25/21 12:51 [Iodinated Contrast- Oral and IV Dye] ramipril [From Altace] AdvReac Severe cough Verified 06/25/21 12:51 ticagrelor [From Brilinta] AdvReac Dyspnea Verified 06/25/21 12:51 Family History Mother , Age 63 Myocardial infarction Father , Age 28 Colon cancer Other Heart disease Surgical History History of axillary surgery History of cardiac catheterization History of cholecystectomy History of percutaneous transluminal coronary angioplasty (04/16/19) Hx of colonoscopy Presence of stent in coronary artery (04/09/21) Social History Smoking Status: Never smoker second hand exposure: No alcohol intake: never substance use type: does not use caffeine: Yes Type: coffee Number of servings: 1 what type of physical activity do you participate in: none frequency: does not exercise ROS ROS ED Constitutional Constitutional ED: Reports chills and fever(s); Denies weight loss Eyes Eyes: Denies change in vision or diplopia ENT ENT ED: Reports rhinorrhea; Denies ear pain or sore throat Cardiovascular Cardiovascular: Denies chest pain, orthopnea, palpitations or racing heartbeat Respiratory/Chest Respiratory/Chest: Reports cough, dyspnea and dyspnea on exertion; Denies orthopnea Gastrointestinal Gastrointestinal: Reports nausea; Denies abdominal pain, diarrhea or vomiting Genitourinary Genitourinary ED: Denies dysuria, hematuria or urinary frequency Musculoskeletal Musculoskeletal: Reports myalgias; Denies arthralgias Integumentary Denies abscess or rash Neurologic Neurologic: Denies headache(s) or weakness Psychiatric Psychiatric: Denies anxiety, depression, suicidal ideation or suicidal thoughts Endocrine Endocrinology: Denies polydipsia, polyphagia or polyuria Allergic/Immunologic Allergic/Immunologic ED: Denies mouth swelling, tongue swelling or urticaria EXAM Physical Exam Const Vital Signs: 06/26/21 03:46 06/26/21 03:48 06/26/21 04:23 Temperature 101.5 F H 103.1 F H 103.1 F H Temperature Source Temporal Oral Oral Pulse Rate 76 80 80 Respiratory Rate 32 H 28 H 28 H Respiratory Effort Respiratory Pattern Blood Pressure 135/92 H 135/92 H Blood Pressure Mean 106 106 Pulse Ox 89 90 93 Oxygen Delivery Method Nasal Cannula Nasal Cannula Nasal Cannula Oxygen Flow Rate (L/min) 4 5 6 06/26/21 04:24 06/26/21 05:19 06/26/21 05:20 Temperature 103.1 F H Temperature Source Oral Pulse Rate 68 68 Respiratory Rate 20 H 20 H Respiratory Effort Short of Breath Labored Respiratory Pattern Tachypnea Blood Pressure 117/58 L 117/58 L Blood Pressure Mean 77 77 Pulse Ox 98 98 Oxygen Delivery Method Nasal Cannula Nasal Cannula Oxygen Flow Rate (L/min) 7 7 06/26/21 05:59 06/26/21 06:00 Temperature 100.3 F H 100.3 F H Temperature Source Oral Oral Pulse Rate 70 70 Respiratory Rate 24 H 24 H Respiratory Effort Respiratory Pattern Blood Pressure 121/41 H 121/41 H Blood Pressure Mean 67 67 Pulse Ox 95 95 Oxygen Delivery Method Nasal Cannula Nasal Cannula Oxygen Flow Rate (L/min) 4 4 Positive well nourished, well developed and obese General Appearance ED: well developed Nutritional Appearance: obese HEENT Reports normocephalic, head/scalp atraumatic, TM's clear and moist mucous membranes Negative for trauma Tympanic Membrane ED: Yes TM's clear Eyes PERRL and EOMs intact bilaterally Neck no lymphadenopathy, supple and no JVD Resp clear to auscultation bilaterally Resp Narrative: Patient is tachypneic Cardio regular rate, regular rhythm and no murmurs GI normal to inspection, nondistended, normoactive bowel sounds and non-tender Palpation: soft Back/Spine no CVA tenderness and normal ROM Extremity normal to inspection General Extremety ED: Negative for edema General Extremity: Negative for edema Neuro CN's II-XII intact bilaterally Sensorium / Orientation: alert and orientation impaired Motor Exam: strength 5/5 throughout Psych mental status grossly normal Mood & Affect: Negative for depressed or tearful Skin no rashes or lesions noted and no wounds MDM MDM MDM Narrative Medical decision making narrative: White count slightly elevated 11.5. D-dimer 2.4 with fibrinogen of 576. D-dimer slightly elevated at 2.2. I think this is most likely due to hypoxemia rather than a shock state however. Creatinine 1.23 with a BUN of 27. CRP at 30 troponin high-sensitivity is at 22. Beta natruretic peptide at 556. Patient's noted a allergy to IV contrast. She states that she does not know what happens when she takes it and does not recall that it is an allergy. Regardless she received Solu-Medrol and Benadryl. She was taken for CTA. This demonstrated no pulmonary embolism does show changes consistent with COVID-19 infection. Patient currently on 5 L nasal cannula. She has a mild encephalopathy. Fever is better. Patient will be discussed with hospitalist regarding admission Lab Data Attestation: I reviewed the patient's lab results. Labs: Laboratory Results - last 24 hr 06/26/21 06/26/21 06/26/21 04:10 04:10 04:10 WBC 11.5 H RBC 4.10 L Hgb 12.6 Hct 39.1 MCV 95.4 MCH 30.7 MCHC 32.2 RDW Std Deviation 52.0 H RDW Coeff of Martha 14.8 H Plt Count 278 MPV 10.0 Immature Gran % (Auto) 1.200 H Neut % (Auto) 83.5 H Lymph % (Auto) 11.7 L [place] % (Auto) 1.7 Eos % (Auto) 1.6 Baso % (Auto) 0.3 Absolute Neuts (auto) 9.6 H Absolute Lymphs (auto) 1.34 Nucleated RBC % 0 Fibrinogen 576 H D-Dimer Quant (PE/DVT) 2.48 H* Sodium 139 Potassium 4.2 Chloride 98 Carbon Dioxide 30.0 Anion Gap 11 BUN 27 H Creatinine 1.23 H Estim Creat Clear Calc 29.93 Est GFR (MDRD) Af Amer 54 L Est GFR (MDRD) Non-Af 44 L BUN/Creatinine Ratio 22.0 H Glucose 119 H Lactic Acid Calcium 8.8 Total Bilirubin 0.70 AST 23 ALT 26 Alkaline Phosphatase 64 Total Creatine Kinase 46 Troponin I High Sens 22 C-React Prot Ext Range 30.30 H B-Natriuretic Peptide Total Protein 7.9 Albumin 3.3 Globulin 4.6 H Albumin/Globulin Ratio 0.7 L 06/26/21 06/26/21 04:10 04:19 WBC RBC Hgb Hct MCV MCH MCHC RDW Std Deviation RDW Coeff of Martha Plt Count MPV Immature Gran % (Auto) Neut % (Auto) Lymph % (Auto) [place] % (Auto) Eos % (Auto) Baso % (Auto) Absolute Neuts (auto) Absolute Lymphs (auto) Nucleated RBC % Fibrinogen D-Dimer Quant (PE/DVT) Sodium Potassium Chloride Carbon Dioxide Anion Gap BUN Creatinine Estim Creat Clear Calc Est GFR (MDRD) Af Amer Est GFR (MDRD) Non-Af BUN/Creatinine Ratio Glucose Lactic Acid 2.2 H* Calcium Total Bilirubin AST ALT Alkaline Phosphatase Total Creatine Kinase Troponin I High Sens C-React Prot Ext Range B-Natriuretic Peptide 556.2 H Total Protein Albumin Globulin Albumin/Globulin Ratio Radiography Diagnostic Testing: Clinical Impression(s) from Imaging Studies Chest CTA 06/26/21 04:06 IMPRESSION: No demonstrated pulmonary embolism or arterial dissection. Diffuse scattered pulmonary airspace opacities concerning for underlying infectious inflammatory process. Small left and trace right pleural effusions. Electronically Signed: Rob Pizano MD at 6:15 EST Tel , Service support , EKG Initial EKG: Attestation: I personally reviewed and interpreted this EKG as follows: Comments: Normal sinus rhythm with a ventricular rate of 60 bpm. Discharge Plan Dx/Rx/DC Orders Clinical Impression: COVID-19, Acute hypoxemic respiratory failure due to COVID-19, Acute encephalopathy Disposition Disposition: [facility]
[2021-06-26 04:25] LABS: Absolute Lymphocyte Count 1.34 X10^3/uL (0.83-4.51); Absolute Neutrophil Count 9.6 X10^3/uL (2.0-7.7); Basophil# 0.03 X10^3/uL; Basophil% 0.3 % (0-1); Eosinophil# 0.18 X10^3/uL; Eosinophils% 1.6 % (0-5); Hematocrit 39.1 % (37-47); Hemoglobin 12.6 g/dL (12.0-15.0); Lymphocyte # 1.34 X10^3/ul (0.83-4.51); Lymphocyte % 11.7 % (19-41); Mean Corp Hgb Conc 32.2 g/dL (32-36); Mean Corpuscular Hgb 30.7 pg (27.0-32.0); Mean Corpuscular Volume 95.4 fL (81-99); Monocyte# 0.19 X10^3/uL; Monocyte% 1.7 % (0-10); NRBC Flagged by Analyzer 0 % (0-5); Neutrophil # 9.62 X10^3/uL (2.7-7.7); Neutrophil % 83.5 % (47-70); Platelet Count 278 K/mm3 (150-450); RBC Distribution Width CV 14.8 % (11.6-14.6); White Blood Count 11.5 K/mm3 (4.4-11.0)
[2021-06-26] MEDS: MethylPREDNISolone 125 MG/2 ML Vial 60 MG IV (04:41)
[2021-06-26] MEDS: Acetaminophen 500 MG Tablet 1000 MG PO (04:41)
[2021-06-26] MEDS: DiphenhydrAMINE 50 MG/ML Syringe 25 MG IV (04:41)
[2021-06-26 04:42] LABS: Fibrinogen 576 mg/dl (203-444)
[2021-06-26 04:43] LABS: BNP,B-Type NATRIURETIC PEPTIDE 556.2 pg/mL (0-100)
[2021-06-26 04:47] LABS: ALB/GLOB Ratio 0.7 RATIO (0.9-2.4); AST(SGOT) 23 U/L (15-37); Alanine Aminotransfer ALT/SGPT 26 U/L (13-56); Albumin, Serum 3.3 g/dL (3.2-5.0); Alkaline Phosphatase 64 U/L (45-117); Anion Gap 11 (5-15); BUN 27 mg/dL (7-18); CPK Total, Creatine Kinase 46 U/L (26-192); Calcium,Total 8.8 mg/dL (8.5-10.1); Chloride 98 mmol/L (98-107); Creatinine, Serum 1.23 mg/dL (0.55-1.02); EST Glomerular Filtration Rate 44 mL/min (>60); Est Glom Filt Rate - Afr Amer 54 mL/min (>60); Estimated Creatinine Clearance 29.93 ml/min; Globulin 4.6 g/dL (2.2-4.2); Glucose 119 mg/dL (74-106); Potassium 4.2 mmol/L (3.5-5.1); Protein, Total 7.9 g/dL (6.4-8.2); Sodium Level 139 mmol/L (136-145); Troponin-I HS 22 pg/mL (3.0-54.0)
[2021-06-26 04:56] LABS: Lactic Acid 2.2 mmol/L (0.4-1.9)
[2021-06-26 04:57] LABS: D-Dimer Quantitative (DVT/PE) 2.48 FEU/ug/m (0.27-0.49)
--- NOTE | 2021-06-26 06:40 | EKG12_ITS ---
Test Reason : Blood Pressure : / mmHG Vent. Rate : 060 BPM Atrial Rate : 060 BPM P-R Int : 142 ms QRS Dur : 080 ms QT Int : 442 ms P-R-T Axes : 070 051 044 degrees QTc Int : 442 ms Normal sinus rhythm with sinus arrhythmia Consider voltage criteria for LVH Abnormal ECG Confirmed by LEO WYNN, PORTIA ([id number]), business editor JANETT MURPHY ([id number]) on 06/28/2021 7:33:42 AM Referred By: YANETH Confirmed By:PORTIA BAILEY MD
--- NOTE | 2021-06-26 06:40 | NURSING ---
DR ANDREWS WOLFE
[2021-06-26] MEDS: dexAMETHasone 4 MG Tablet 6 MG PO (07:06)
--- NOTE | 2021-06-26 07:13 | HP.PCM.HOS_ITS ---
HPI - General General Date of Admission: 06/26/21 HPI Narrative PRECIOUS LEIGH, is a 85 F with an extensive PMH as outlined who presents via the ED with a complaint of weakness and shortness of breath. She also had a temperature of up to 101.7F. She received the monoclonal antibodies on the day she was admitted. SHe had associated lethargy and cough which was nonproductive. She has been feeling very weak and tired for several months, and says she was diagnosed with mediastinal lymphadenopathy of unclear etiology per CT, and is following up with pulmonology. She has been vaccinated, but hasn't received the booster as she has been unwell of late with problems like anemia and so her doctor had recommended that she should not get the booster as of now. She denied any chest pain, palpitations, dizziness, nausea vomiting or diarrhea. Review of systems otherwise negative. Vitals were BP of 121/41, IN of 70, RR of 24 and temp of 100.3, and 4L of oxygen. CBC showed wbc of 11.5, hb of 12.6, platelets of 278; D dimer was elevated at 2.48. BMP was significant for Cr of 1.23 and lactic acid of 2.2. CTA showed no PE but showed diffuse scattered pulmonary airspace opacities concerning for underlying infectious inflammatory process, and small left and trace right pleural effusions. COVID test was positive. She is being admitted to be managed for acute hypoxic respiratory chris lure due to covid 19 pneumonia. COUNT INCLUDES [facility] Medical History Acute febrile illness Anemia Angina pectoris Anginal equivalent Aortic insufficiency Atherosclerotic heart disease of [place] coronary artery without angina pectoris BiPAP (biphasic positive airway pressure) dependence CAD (coronary artery disease) Cardiology follow-up encounter Carotid artery disease Chest pain Chronic cough Chronic hypoxemic respiratory failure Elevated troponin Essential hypertension Hemolytic anemia High cholesterol History of echocardiogram History of stress test Hyperlipidemia Hypertension Hypothyroidism Loss of appetite Mediastinal lymphadenopathy Non-smoker Non-ST elevation (NSTEMI) myocardial infarction Nonrheumatic aortic (valve) insufficiency Nonrheumatic aortic (valve) stenosis Nonrheumatic mitral (valve) insufficiency On home oxygen therapy ABDIAS (obstructive sleep apnea) Shortness of breath on exertion Thyroid disease Valvular heart disease Wears dentures Wears glasses Home Medications ascorbic acid (vitamin C) 500 mg PO DAILY 01/16/18 [History Last Taken 06/25/21 08:00] folic acid 0.4 mg PO DAILY@0800 01/16/18 [History Last Taken 02/21/21] coenzyme Q10 100 mg PO DAILY 03/09/18 [History Last Taken 02/21/21] omega-3 fatty acids-fish oil 1 cap PO DAILY 11/12/18 [History Last Taken 02/21/21] levothyroxine 100 mcg PO DAILY 04/18/20 [History Last Taken 02/21/21] atorvastatin 40 mg tablet 40 mg PO DAILY #90 tab 07/24/20 [Rx Last Taken 2 22:00] isosorbide mononitrate 30 mg tablet,extended release 24 hr 30 mg PO BID #180 tab 01/15/21 [Rx Last Taken 02/21/21] multivitamin 1 tab PO DAILY 02/22/21 [History Last Taken 02/21/21] aspirin 81 mg PO DAILY@0800 #0 tab 02/27/21 [Rx Last Taken 06/25/21 08:00] ferrous sulfate 325 mg PO DAILY #60 tab 02/27/21 [Rx Last Taken Unknown] pantoprazole [Protonix] 40 mg PO DAILY #30 tab 02/27/21 [Rx Last Taken Unknown] nitroglycerin 0.4 mg sublingual tablet 0.4 mg SUBLINGUAL Q5-15M PRN 10 Days #25 tab 03/01/21 [Rx Last Taken Unknown] clopidogrel 75 mg tablet 75 mg PO DAILY #90 tab 04/20/21 [Rx Last Taken Unknown] losartan 50 mg tablet 50 mg PO BID #180 tab 05/03/21 [Rx Last Taken Unknown] furosemide 40 mg tablet 40 mg PO DAILY #90 tab 05/16/21 [Rx Last Taken Unknown] calcium citrate 200 mg (950 mg) tablet See Rx Instructions .ROUTE .COMPLEX 05/30/21 [History Last Taken 06/25/21 17:00] cholecalciferol (vitamin D3) 25 mcg (1,000 unit) tablet 25 mcg PO DAILY 05/30/21 [History Last Taken 06/25/21 12:00] magnesium 250 mg tablet 250 mg PO DAILY 05/30/21 [History Last Taken Unknown] prednisone 20 mg tablet 9 mg PO BREAKFAST tab 05/30/21 [History Last Taken Unknown] vitamin E (dl, acetate) 180 mg (400 unit) capsule 180 mg PO DAILY 05/30/21 [History Last Taken Unknown] metoprolol succinate 100 mg tablet,extended release 24 hr 100 mg PO BID #90 tab 06/07/21 [Rx Last Taken Unknown] Allergy/AdvReac Type Severity Reaction Status Date / Time Iodinated Contrast Media Allergy Intermediate Rash Verified 06/25/21 12:51 [Iodinated Contrast- Oral and IV Dye] ramipril [From Altace] AdvReac Severe cough Verified 06/25/21 12:51 ticagrelor [From Brilinta] AdvReac Dyspnea Verified 06/25/21 12:51 Family History Mother , Age 63 Myocardial infarction Father , Age 28 Colon cancer Other Heart disease Surgical History History of axillary surgery History of cardiac catheterization History of cholecystectomy History of percutaneous transluminal coronary angioplasty (04/16/19) Hx of colonoscopy Presence of stent in coronary artery (04/09/21) Social History Smoking Status: Never smoker second hand exposure: No alcohol intake: never substance use type: does not use caffeine: Yes Type: coffee Number of servings: 1 what type of physical activity do you participate in: none frequency: does not exercise ROS Constitutional Constitutional: Reports chills, fatigue, fever(s), malaise and weakness; Denies anorexia Eyes Eyes: Denies change in vision ENT HEENT: Denies dysphagia, headache(s), nasal congestion or nasal discharge Cardiovascular Cardiovascular: Denies chest pain, dyspnea on exertion, lightheadedness, orthopnea, rapid heart rate or syncope Respiratory/Chest Respiratory/Chest: Reports cough, dyspnea, shortness of breath at rest and shortness of breath with exertion; Denies hemoptysis or productive cough Gastrointestinal Gastrointestinal: Denies abdominal pain, constipation, diarrhea, loose stools, nausea or vomiting Genitourinary Genitourinary: Denies burning urination, dysuria, urinary frequency or urinary hesitancy Musculoskeletal Musculoskeletal: Denies arthralgias, back pain or joint swelling Neurologic Neurologic: Denies confusion Psychiatric Psychiatric: Denies anxiety or depression Endocrine Endocrinology: Denies change in body appearance Hematologic/Lymphatic Hematologic/Lymphatic: Denies anemia Vital Signs Vital Signs Vital Signs: 06/26/21 03:46 06/26/21 03:48 06/26/21 04:23 Temperature 101.5 F H 103.1 F H 103.1 F H Temperature Source Temporal Oral Oral Pulse Rate 76 80 80 Respiratory Rate 32 H 28 H 28 H Respiratory Effort Respiratory Pattern Blood Pressure 135/92 H 135/92 H Blood Pressure Mean 106 106 Pulse Ox 89 90 93 Oxygen Delivery Method Nasal Cannula Nasal Cannula Nasal Cannula Oxygen Flow Rate (L/min) 4 5 6 06/26/21 04:24 06/26/21 05:19 06/26/21 05:20 Temperature 103.1 F H Temperature Source Oral Pulse Rate 68 68 Respiratory Rate 20 H 20 H Respiratory Effort Short of Breath Labored Respiratory Pattern Tachypnea Blood Pressure 117/58 L 117/58 L Blood Pressure Mean 77 77 Pulse Ox 98 98 Oxygen Delivery Method Nasal Cannula Nasal Cannula Oxygen Flow Rate (L/min) 7 7 06/26/21 05:59 06/26/21 06:00 Temperature 100.3 F H 100.3 F H Temperature Source Oral Oral Pulse Rate 70 70 Respiratory Rate 24 H 24 H Respiratory Effort Respiratory Pattern Blood Pressure 121/41 H 121/41 H Blood Pressure Mean 67 67 Pulse Ox 95 95 Oxygen Delivery Method Nasal Cannula Nasal Cannula Oxygen Flow Rate (L/min) 4 4 Weight Weight: 177 lb 4.026 oz Body Mass Index (BMI) 30.4 Physical Exam Const alert, oriented x3 and no apparent distress General Appearance: cooperative HEENT normocephalic, head/scalp atraumatic, hearing grossly normal bilaterally and moist oral mucous membranes Eyes PERRL, EOMs intact bilaterally and conjunctivae normal Neck no lymphadenopathy and supple Resp no retractions and no use of accessory muscles Resp Narrative: diminished breath sounds bibasally, no wheezes or crackles. On 2L of oxygen by nasal canula Cardio regular rate, regular rhythm, S1 normal heart sound, S2 normal heart sound and no murmurs GI normal to inspection, nondistended, normoactive bowel sounds, soft to palpation, non-tender and non-distended Extremity normal to inspection, full ROM and no clubbing, cyanosis or edema Peripheral Pulses: Yes pulses 2+ throughout Skin no rashes or lesions noted Neuro oriented x3, CN's II-XII intact bilaterally and moves all extremities Sensorium / Orientation: awake and alert Psych affect normal Results Lab / Micro Data Result Diagrams: 06/26/21 04:10 06/26/21 04:10 Labs: Laboratory Results - last 24 hr 06/26/21 04:10: WBC 11.5 H, RBC 4.10 L, Hgb 12.6, Hct 39.1, MCV 95.4, MCH 30.7, MCHC 32.2, RDW Std Deviation 52.0 H, RDW Coeff of Martha 14.8 H, Plt Count 278, MPV 10.0, Immature Gran % (Auto) 1.200 H, Neut % (Auto) 83.5 H, Lymph % (Auto) 11.7 L, Loving % (Auto) 1.7, Eos % (Auto) 1.6, Baso % (Auto) 0.3, Absolute Neuts (auto) 9.6 H, Absolute Lymphs (auto) 1.34, Nucleated RBC % 0 06/26/21 04:10: Fibrinogen 576 H, D-Dimer Quant (PE/DVT) 2.48 H* 06/26/21 04:10: Sodium 139, Potassium 4.2, Chloride 98, Carbon Dioxide 30.0, Anion Gap 11, BUN 27 H, Creatinine 1.23 H, Estim Creat Clear Calc 29.93, Est GFR (MDRD) Af Amer 54 L, Est GFR (MDRD) Non-Af 44 L, BUN/Creatinine Ratio 22.0 H, Glucose 119 H, Calcium 8.8, Total Bilirubin 0.70, AST 23, ALT 26, Alkaline Phosphatase 64, Total Creatine Kinase 46, Troponin I High Sens 22, C-React Prot Ext Range 30.30 H, Total Protein 7.9, Albumin 3.3, Globulin 4.6 H, Albumin/Globulin Ratio 0.7 L 06/26/21 04:10: B-Natriuretic Peptide 556.2 H 06/26/21 04:19: Lactic Acid 2.2 H* Radiology Impression Chest CTA 06/26/21 04:06 IMPRESSION: No demonstrated pulmonary embolism or arterial dissection. Diffuse scattered pulmonary airspace opacities concerning for underlying infectious inflammatory process. Small left and trace right pleural effusions. Electronically Signed: Rob Pizano MD at 6:15 EST Tel , Service support , Assessment & Plan Assessment/Plan (1) COVID-19: (2) Acute hypoxemic respiratory failure due to COVID-19: PLAN: #Acute hypoxic respiratory failure due to COVID 19 pneumonia * Admit to [facility] * start Remdesivir and Decadron. Titrate oxygen to maintain saturation above 90%. * Breathing treatments with bronchodilators. * Diurese as needed to maintain euvolemic status. Monitor intake and output. Guaifenesin for cough. * #Bacteremia: * Preliminary blood cultures coming back positive for gram-negative rods in 1 out of 2 samples. * Start on IV Zosyn empirically as patient was also febrile. Await speciation. * #CAD: On Imdur as well as aspirin and Plavix, high intensity statin and metoprolol\ #Elevated D-dimer: * D-dimer is 2.[address] of the chest was negative for PE. * Likely due to COVID. * Will monitor. * #Mediastinal lymphadenopathy: * Etiology is unclear. * She does have a history of interstitial lung disease. * To follow-up with pulmonology on outpatient basis. #Hypothyroidism: On Synthroid #History of interstitial lung disease: We will hold off on prednisone for now as she is on Decadron. *Hypertension: On losartan and metoprolol DVT prophylaxis: Lovenox 30mg bid CODE STATUS: Full code * Patient counseled about CODE STATUS including differences between full code, DNR CCA and DNR CCA. Patient elects to be full code. * Total [id number] time 17 minutes. Charges/Coding Visit Charges Inpatient E&M: 08617 Init Hosp L3 Procedures Hospitalists Procedures: 99901 Advncd Care Plan 30 Min
--- NOTE | 2021-06-26 07:24 | NURSING ---
MED SURG KORAM COVID 19
[2021-06-26 08:26] LABS: Reflex Lactate? Y
[2021-06-26 10:57] LABS: LDH 297 U/L (84-246)
[2021-06-26 11:28] LABS: Fibrinogen 612 mg/dl (203-444)
[2021-06-26 11:48] LABS: Lactic Acid 3.2 mmol/L (0.4-1.9)
[2021-06-26] MEDS: 0.9% Normal Saline 1,000 ML 100 ML IV (12:26)
[2021-06-26] MEDS: Piperacil/Tazobactam 3.375 GM Q8 PREMIX IV (16:44)
[2021-06-26] MEDS: Enoxaparin 30 MG/0.3 ML Syringe SC (20:52)
[2021-06-26] MEDS: Losartan Potassium 50 MG Tablet PO (20:52)
[2021-06-27] VITALS (14 sets, daily range): BP systolic 133–161; BP diastolic 58–76; PULSE 49–75; RESP 18; TEMP 36.2–36.7; O2SAT 94–99
--- NOTE | 2021-06-27 00:52 | PCS.PANDOC ---
PANDEMIC DOCUMENTATION INITIATED: Date: 06/27/20 Time: 0000
[2021-06-27 06:26] LABS: Absolute Lymphocyte Count 0.92 X10^3/uL (0.83-4.51); Absolute Neutrophil Count 13.1 X10^3/uL (2.0-7.7); Basophil# 0.01 X10^3/uL; Basophil% 0.1 % (0-1); Hematocrit 30.6 % (37-47); Hemoglobin 10.1 g/dL (12.0-15.0); Lymphocyte # 0.92 X10^3/ul (0.83-4.51); Lymphocyte % 6.2 % (19-41); Mean Corpuscular Hgb 30.8 pg (27.0-32.0); Mean Corpuscular Volume 93.3 fL (81-99); Mean Platelet Vol. 10.1 fl (6.2-12.0); Monocyte# 0.65 X10^3/uL; Monocyte% 4.4 % (0-10); NRBC Flagged by Analyzer 0 % (0-5); Neutrophil # 13.05 X10^3/uL (2.7-7.7); Neutrophil % 87.9 % (47-70); Platelet Count 205 K/mm3 (150-450); RBC Distribution Width CV 14.5 % (11.6-14.6); RBC Distribution Width SD 49.5 fl (35.1-43.9); Red Blood Count 3.28 M/mm3 (4.2-5.4); White Blood Count 14.8 K/mm3 (4.4-11.0)
[2021-06-27] MEDS: Piperacil/Tazobactam 3.375 GM Q8 PREMIX IV ×3 (06:38→22:00)
[2021-06-27 06:53] LABS: ALB/GLOB Ratio 0.7 RATIO (0.9-2.4); AST(SGOT) 21 U/L (15-37); Alanine Aminotransfer ALT/SGPT 20 U/L (13-56); Albumin, Serum 2.5 g/dL (3.2-5.0); Alkaline Phosphatase 46 U/L (45-117); Anion Gap 8 (5-15); BUN 29 mg/dL (7-18); BUN/Creat Ratio 27.9 RATIO (10-20); Calcium,Total 8.2 mg/dL (8.5-10.1); Chloride 104 mmol/L (98-107); Creatinine, Serum 1.04 mg/dL (0.55-1.02); EST Glomerular Filtration Rate 54 mL/min (>60); Est Glom Filt Rate - Afr Amer 65 mL/min (>60); Estimated Creatinine Clearance 35.39 ml/min; Globulin 3.8 g/dL (2.2-4.2); Glucose 134 mg/dL (74-106); Potassium 4.1 mmol/L (3.5-5.1); Protein, Total 6.3 g/dL (6.4-8.2); Sodium Level 140 mmol/L (136-145)
--- NOTE | 2021-06-27 11:00 | CASEMGMT ---
BOSTON HODGE Assessment: Face to Face with pt for initial transition planning/care coordination assessment. BOSTON HODGE introduced self and role at [facility], pt voices understanding and consents to assessment. Pt is A/O x4 and answers all questions appropriately at this time. Pt sitting up in chair on RA, just finished with therapy. Care providers, pharmacy, and demographics verified/updated. Admitting Dx: acute hypoxic resp failure d/t COVID PCP: Matthew Casiano Specialists: Cassy, cardio; Prah, heme; Pt sees a physician at the vasculitis center at [facility]. Preferred Pharmacy: [facility] Insurance: MCR, [employer] Prescription Benefit: yes LW/HPOA: Pt has a LW/DPOA and she is aware it is not on file at [facility]. She states her DPOA is her dtr, Li Harper. LNOK: Kedar Powell, ; Li Harper, dtr Living Arrangements: Pt lives with and son (in basement) in a single story house with 1 step to enter. Pt reports she is I in ADL's and denies concerns at home. Transportation: Pt drives self and denies concerns with transportation. DME/HHC/SNF: Pt denies having any DME in the home, previous HHC or SNF stays. Pt states no concerns with going home at time of dc. She denies need for HHC. Pt states no further concerns/needs. CM to follow. Advised pt to ask CM if any further question/concerns/needs arise, voices understanding. Pt first test positive for COVID at [facility]. Pt and son have not been tested. Pt states her and her have been quarantining from their son as he works. She can quarantine from her by using separate bedrooms but not bathrooms. Pt has family who can provide groceries and supplies while in quarantine. Provided pt with a local in network list of DME companies should pt be dc'd on O2, pt has had [employer] in the past. Pt states it was returned in April 2021. Pt Goal: home Plan:home
[2021-06-27] MEDS: Enoxaparin 30 MG/0.3 ML Syringe SC ×2 (11:03→21:59)
[2021-06-27] MEDS: dexAMETHasone 4 MG Tablet 6 MG PO (11:04)
[2021-06-27] MEDS: Losartan Potassium 50 MG Tablet PO ×2 (11:04→21:59)
[2021-06-27] MEDS: Cholecalciferol (VIT D3) 25 MCG TABLET (1,000 UNITS) PO (11:05)
[2021-06-27] MEDS: Ferrous Sulfate 325 MG Tablet PO (11:05)
[2021-06-27] MEDS: Pantoprazole Sodium 40 MG Tablet PO (11:05)
[2021-06-27] MEDS: Folic Acid 1 MG Tablet 0.5 MG PO (11:05)
[2021-06-27] MEDS: Omega-3 Acid Ethyl Esters 1 GM Capsule PO (11:05)
[2021-06-27] MEDS: Aspirin E.C. 81 MG Tablet PO (11:05)
[2021-06-27] MEDS: Atorvastatin Calcium 40 MG Tablet PO (11:06)
[2021-06-27] MEDS: Magnesium Chloride 64 MG Delay Rel.Tablet 128 MG PO (11:06)
[2021-06-27] MEDS: Multivitamins,Therapeutic Tablet 1 TABLET PO (11:07)
[2021-06-27] MEDS: Clopidogrel Bisulfate 75 MG Tablet PO (11:07)
[2021-06-27] MEDS: Levothyroxine 100 MCG Tablet PO (11:07)
[2021-06-27] MEDS: Metoprolol(XL)Succ 100 MG Tablet PO (11:08)
[2021-06-27] MEDS: Ascorbic Acid 500 MG Tablet PO (11:08)
--- NOTE | 2021-06-27 11:20 | PN.HOSP_ITS ---
Subjective Subjective Patient seen and examined. She had no complaints this morning and felt better. She denied any lightheadedness, dizziness, nausea, vomiting, or any urinary symptoms. She also denied any shortness of breath. Review of systems is otherwise negative. Blood cultures are positive for gram negative rods. Objective Data Objective Data Vital Signs: Vital Signs Temp Pulse Resp BP Pulse Ox 97.2 F L 55 L 18 148/72 H 96 06/27/21 03:05 06/27/21 03:05 06/27/21 03:05 06/27/21 03:05 06/27/21 09:20 Oxygen Flow Rate (L/min) 2 Oxygen Delivery Method Nasal Cannula Weight: 175 lb 4.28 oz Body Mass Index (BMI) 30.0 Intake & Output: Intake and Output for Last 24 Hours 06/25/21 06/26/21 06/27/21 23:59 23:59 23:59 Intake Total 1999 / 2050 Output Total 300 / 300 Balance 1999 1750 / 1750 Lab / Micro Data Result Diagrams: 06/27/21 05:45 06/27/21 05:45 Labs: Laboratory Results - last 24 hr 06/26/21 11:00: PT 13.0, INR 1.0, Fibrinogen 612 H 06/26/21 11:08: Lactic Acid 3.2 H* 06/27/21 05:45: WBC 14.8 H, RBC 3.28 L, Hgb 10.1 L, Hct 30.6 L, MCV 93.3, MCH 30.8, MCHC 33.0, RDW Std Deviation 49.5 H, RDW Coeff of Martha 14.5, Plt Count 205, MPV 10.1, Immature Gran % (Auto) 1.400 H, Neut % (Auto) 87.9 H, Lymph % (Auto) 6.2 L, [place] % (Auto) 4.4, Eos % (Auto) 0.0, Baso % (Auto) 0.1, Absolute Neuts (auto) 13.1 H, Absolute Lymphs (auto) 0.92, Nucleated RBC % 0 06/27/21 05:45: Sodium 140, Potassium 4.1, Chloride 104, Carbon Dioxide 28.0, Anion Gap 8, BUN 29 H, Creatinine 1.04 H, Estim Creat Clear Calc 35.39, Est GFR (MDRD) Af Amer 65, Est GFR (MDRD) Non-Af 54 L, BUN/Creatinine Ratio 27.9 H, Glucose 134 H, Calcium 8.2 L, Total Bilirubin 0.40, AST 21, ALT 20, Alkaline Phosphatase 46, Total Protein 6.3 L, Albumin 2.5 L, Globulin 3.8, Albumin/Globulin Ratio 0.7 L Micro: Microbiology 06/26/21 04:19 Blood Culture (Wb) - Right Hand Blood Culture - Preliminary GNR lactose aids social worker 06/27/21 03:15 Urine, Random Legionella Antigen - Final 06/27/21 03:15 Urine, Random Streptococcus pneumoniae Antigen (M - Final 06/26/21 04:10 Blood Culture (Wb) - Anticubital Right Blood Culture - Preliminary Physical Exam Const alert, oriented x3 and no apparent distress General Appearance: cooperative Exam Limitations: no limitations HEENT normocephalic, head/scalp atraumatic, hearing grossly normal bilaterally and moist oral mucous membranes Head and Scalp: normocephalic Eyes PERRL, EOMs intact bilaterally and conjunctivae normal Neck no lymphadenopathy and supple Resp Resp Narrative: diminished breath sounds bibasally, no wheezes or crackles. On 2L of oxygen by nasal canula Cardio regular rate, regular rhythm, S1 normal heart sound, S2 normal heart sound and no murmurs GI normal to inspection, nondistended, normoactive bowel sounds, soft to palpation, non-tender and non-distended Extremity normal to inspection, full ROM and no clubbing, cyanosis or edema Skin no rashes or lesions noted Neuro oriented x3, CN's II-XII intact bilaterally and moves all extremities Sensorium / Orientation: awake and alert Psych affect normal Assessment & Plan Assessment/Plan (1) COVID-19: (2) Acute hypoxemic respiratory failure due to COVID-19: PLAN: #Acute hypoxic respiratory failure due to COVID 19 pneumonia * on remdesivir and decadron. * Titrate oxygen to maintain saturation above 90%. * Breathing treatments with bronchodilators. * Diurese as needed to maintain euvolemic status. Monitor intake and output. Guaifenesin for cough. * #Bacteremia: * Preliminary blood cultures coming back positive for gram-negative rods in 2 ou t of 2 samples. * n IV Zosyn empirically as patient was also febrile. Await speciation. * ID consulted. Await rec's * repeat blood cultures * #CAD: On Imdur as well as aspirin and Plavix, high intensity statin and metoprolol #Elevated D-dimer: * D-dimer is 2.[address] of the chest was negative for PE. * Likely due to COVID. * Will monitor. * #Mediastinal lymphadenopathy: * Etiology is unclear. * She does have a history of interstitial lung disease. * To follow-up with pulmonology on outpatient basis. #Hypothyroidism: On Synthroid #History of interstitial lung disease: hold off on prednisone for now as she is on Decadron. *Hypertension: On losartan and metoprolol DVT prophylaxis: Lovenox 30mg bid CODE STATUS: Full code * Charges/Coding Visit Charges Inpatient E&M: 28249 Subs Hosp L2
[2021-06-27 11:35] LABS: Bedside Glucose 269 mg/dL (70-110)
--- NOTE | 2021-06-27 13:59 | CON.PCM.ID_ITS ---
Assessment & Plan Assessment/Plan (1) COVID-19: PLAN: Sx started 06/18. Received monoclonal Ab. Overdue for booster. I solate until 07/08. On zosyn for sepsis due to GNR bacteremia, suspect pneumonia as source. on dex, remdesivir. Will follow, thank you (2) Acute hypoxemic respiratory failure due to COVID-19: HPI Consult Data Date of Consult: 06/27/21 HPI Narrative HPI Narrative: PRECIOUS LEIGH, is a 85 F who presented 06/26 with fever, not feeling well, cough, dyspnea, headache. Thinks she had covid in the fall with loss of taste/smell. Has had two doses of covid vaccine, overdue for booster. Sx started 06/18, worsened past few days, got monoclonal Abs, now admitted on zosyn, dex, remdesivir. Feeling better. No n/v/d, no abd pain, no dysuria, no sputum. Full ROS performed and neg except as noted above. [facility] Medical History Acute febrile illness Anemia Angina pectoris Anginal equivalent Aortic insufficiency Atherosclerotic heart disease of [place] coronary artery without angina pectoris BiPAP (biphasic positive airway pressure) dependence CAD (coronary artery disease) Cardiology follow-up encounter Carotid artery disease Chest pain Chronic cough Chronic hypoxemic respiratory failure Elevated troponin Essential hypertension Hemolytic anemia High cholesterol History of echocardiogram History of stress test Hyperlipidemia Hypertension Hypothyroidism Loss of appetite Mediastinal lymphadenopathy Non-smoker Non-ST elevation (NSTEMI) myocardial infarction Nonrheumatic aortic (valve) insufficiency Nonrheumatic aortic (valve) stenosis Nonrheumatic mitral (valve) insufficiency On home oxygen therapy ABDIAS (obstructive sleep apnea) Shortness of breath on exertion Thyroid disease Valvular heart disease Wears dentures Wears glasses Home Medications ascorbic acid (vitamin C) 500 mg PO DAILY 01/16/18 [History Last Taken 06/25/21 08:00] folic acid 0.4 mg PO DAILY@0800 01/16/18 [History Last Taken 06/25/21 08:00] coenzyme Q10 100 mg PO DAILY 03/09/18 [History Last Taken 06/18/21 08:00] omega-3 fatty acids-fish oil 1 cap PO DAILY 11/12/18 [History Last Taken 02/21/21] levothyroxine 100 mcg PO DAILY 04/18/20 [History Last Taken 06/25/21 06:00] atorvastatin 40 mg tablet 40 mg PO DAILY #90 tab 07/24/20 [Rx Last Taken 06/25/21 22:00] multivitamin 1 tab PO DAILY 02/22/21 [History Last Taken 02/21/21] aspirin 81 mg PO DAILY@0800 #0 tab 02/27/21 [Rx Last Taken 06/25/21 08:00] nitroglycerin 0.4 mg sublingual tablet 0.4 mg SUBLINGUAL Q5-15M PRN 10 Days #25 tab 03/01/21 [Rx Last Taken Unknown] calcium citrate 200 mg (950 mg) tablet See Rx Instructions .ROUTE .COMPLEX 05/30/21 [History Last Taken 06/25/21 17:00] cholecalciferol (vitamin D3) 25 mcg (1,000 unit) tablet 25 mcg PO DAILY 05/30/21 [History Last Taken 06/25/21 12:00] magnesium 250 mg tablet 250 mg PO DAILY 05/30/21 [History Last Taken Unknown] prednisone 20 mg tablet 9 mg PO BREAKFAST tab 05/30/21 [History Last Taken Unknown] vitamin E (dl, acetate) 180 mg (400 unit) capsule 180 mg PO DAILY 05/30/21 [History Last Taken 06/25/21 08:00] clopidogrel 75 mg PO DAILY 06/26/21 [History Last Taken 06/25/21 22:00] ferrous sulfate 325 mg PO DAILY 06/26/21 [History Last Taken 06/25/21 08:00] furosemide 40 mg PO DAILY 06/26/21 [History Last Taken 06/25/21 08:00] isosorbide mononitrate 30 mg PO BID 06/26/21 [History Last Taken 06/25/21 08:00] losartan 50 mg PO BID 06/26/21 [History Last Taken 06/25/21 10:00] metoprolol succinate 100 mg PO BID 06/26/21 [History Last Taken Unknown] pantoprazole [Protonix] 40 mg PO DAILY 06/26/21 [History Last Taken Unknown] Allergy/AdvReac Type Severity Reaction Status Date / Time Iodinated Contrast Media Allergy Intermediate Rash Verified 06/25/21 12:51 [Iodinated Contrast- Oral and IV Dye] ramipril [From Altace] AdvReac Severe cough Verified 06/25/21 12:51 ticagrelor [From Brilinta] AdvReac Dyspnea Verified 06/25/21 12:51 Family History Mother , Age 63 Myocardial infarction Father , Age 28 Colon cancer Other Heart disease Surgical History History of axillary surgery History of cardiac catheterization History of cholecystectomy History of percutaneous transluminal coronary angioplasty (04/16/19) Hx of colonoscopy Presence of stent in coronary artery (04/09/21) Social History Smoking Status: Never smoker second hand exposure: No alcohol intake: never substance use type: does not use caffeine: Yes Type: coffee Number of servings: 1 what type of physical activity do you participate in: none frequency: does not exercise Physical Exam Const alert and oriented x3 General Appearance: cooperative Exam Limitations: no limitations HEENT normocephalic and head/scalp atraumatic Eyes PERRL and EOMs intact bilaterally Neck supple and No nodes Resp clear to auscultation bilaterally Resp Narrative: RLE rhonchi Cardio regular rate and regular rhythm GI normal to inspection, nondistended, normoactive bowel sounds Extremity no clubbing, cyanosis or edema Skin no rashes or lesions noted Neuro CN's II-XII intact bilaterally Lab / Micro Data Result Diagrams: 06/27/21 05:45 06/27/21 05:45 Labs: Laboratory Results - last 24 hr 06/27/21 05:45: WBC 14.8 H, RBC 3.28 L, Hgb 10.1 L, Hct 30.6 L, MCV 93.3, MCH 3 0.8, MCHC 33.0, RDW Std Deviation 49.5 H, RDW Coeff of Martha 14.5, Plt Count 205, MPV 10.1, Immature Gran % (Auto) 1.400 H, Neut % (Auto) 87.9 H, Lymph % (Auto) 6.2 L, [place] % (Auto) 4.4, Eos % (Auto) 0.0, Baso % (Auto) 0.1, Absolute Neuts (auto) 13.1 H, Absolute Lymphs (auto) 0.92, Nucleated RBC % 0 06/27/21 05:45: Sodium 140, Potassium 4.1, Chloride 104, Carbon Dioxide 28.0, Anion Gap 8, BUN 29 H, Creatinine 1.04 H, Estim Creat Clear Calc 35.39, Est GFR (MDRD) Af Amer 65, Est GFR (MDRD) Non-Af 54 L, BUN/Creatinine Ratio 27.9 H, Glucose 134 H, Calcium 8.2 L, Total Bilirubin 0.40, AST 21, ALT 20, Alkaline Phosphatase 46, Total Protein 6.3 L, Albumin 2.5 L, Globulin 3.8, Albumin/Globulin Ratio 0.7 L 06/27/21 11:20: POC Glucose 269 H Micro: Microbiology 06/26/21 04:19 Blood Culture (Wb) - Right Hand Blood Culture - Preliminary 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
--- NOTE | 2021-06-27 14:47 | NURSING ---
mary dial notified of need for CCMS-cup placed in room
--- NOTE | 2021-06-27 14:47 | NURSING ---
pt notified to make staff aware next void for CCMS collection
[2021-06-27 15:40] LABS: Bacteria 0 SEEN /hpf (None Seen); Mucous, Urine 0 SEEN /hpf (<or=2+); Red Blood Cells-Urine 0 SEEN /hpf (0-5)
[2021-06-27 15:43] LABS: Color, Urine Yellow (Yellow); Glucose, Dipstick 100 mg/dl (Normal); Ketone-Dipstick Negative (Negative); Leukocyte Esterase-Dipstick 25 /ul (Negative); Nitrite-Dipstick Negative (Negative); Occult Blood-Urine 10 /ul (Negative); Protein-Dipstick 100 mg/dl (Negative); Specific Gravity, Urine 1.015 (1.002-1.030); Urine Bilirubin Dipstick Negative (Negative); Urine Clarity Clear (Clear); Urine Urobilinogen Normal (Normal)
[2021-06-27 15:55] LABS: Squamous Epithelial Cells - UA 0-5 SEEN /hpf (5-10); White Blood Cells 0-5 SEEN /hpf (0-5)
[2021-06-27 16:50] LABS: Bedside Glucose 271 mg/dL (70-110)
[2021-06-28] VITALS (12 sets, daily range): BP systolic 158–187; BP diastolic 56–87; PULSE 47–62; RESP 16–22; TEMP 36.2–36.6; O2SAT 90–96
[2021-06-28] MEDS: hydrALAZINE 20 MG/ML Vial 10 MG IV (03:22)
[2021-06-28] MEDS: Isosorbide Mononitrate 30 MG Tablet PO ×2 (03:22→10:50)
[2021-06-28] MEDS: Piperacil/Tazobactam 3.375 GM Q8 PREMIX IV (05:29)
[2021-06-28 06:29] LABS: Absolute Lymphocyte Count 1.32 X10^3/uL (0.83-4.51); Absolute Neutrophil Count 13.2 X10^3/uL (2.0-7.7); Basophil# 0.03 X10^3/uL; Basophil% 0.2 % (0-1); Hematocrit 32.1 % (37-47); Hemoglobin 10.8 g/dL (12.0-15.0); Lymphocyte # 1.32 X10^3/ul (0.83-4.51); Lymphocyte % 8.5 % (19-41); Mean Corp Hgb Conc 33.6 g/dL (32-36); Mean Corpuscular Hgb 30.6 pg (27.0-32.0); Mean Corpuscular Volume 90.9 fL (81-99); Mean Platelet Vol. 10.2 fl (6.2-12.0); Monocyte# 0.66 X10^3/uL; Monocyte% 4.3 % (0-10); NRBC Flagged by Analyzer 0 % (0-5); Neutrophil # 13.18 X10^3/uL (2.7-7.7); Neutrophil % 84.9 % (47-70); Platelet Count 255 K/mm3 (150-450); RBC Distribution Width CV 14.5 % (11.6-14.6); Red Blood Count 3.53 M/mm3 (4.2-5.4); White Blood Count 15.5 K/mm3 (4.4-11.0)
[2021-06-28 07:01] LABS: Anion Gap 7 (5-15); BUN 30 mg/dL (7-18); BUN/Creat Ratio 29.1 RATIO (10-20); Calcium,Total 8.7 mg/dL (8.5-10.1); Chloride 106 mmol/L (98-107); Creatinine, Serum 1.03 mg/dL (0.55-1.02); EST Glomerular Filtration Rate 54 mL/min (>60); Est Glom Filt Rate - Afr Amer 66 mL/min (>60); Estimated Creatinine Clearance 35.74 ml/min; Glucose 148 mg/dL (74-106); Potassium 3.9 mmol/L (3.5-5.1); Sodium Level 141 mmol/L (136-145)
--- NOTE | 2021-06-28 10:10 | PCM.PN.ID ---
Physical Exam Narrative Feeling better, walking with PT. No fever. Const alert and no apparent distress General Appearance: cooperative Resp clear to auscultation bilaterally Cardio regular rate and regular rhythm GI normal to inspection, nondistended, normoactive bowel sounds Skin no rashes or lesions noted ID ID: Route of nutrition/ use of supplements: [] Nutritional Intake: [] IV Site: [] [place] Catheter: [] Assessment & Plan Assessment/Plan (1) COVID-19: PLAN: Sx started 06/18. Received monoclonal Ab. Overdue for booster, plan on receiving in 3 months. Isolate until 07/08. On zosyn for sepsis due to klebs bacteremia, suspect pneumonia as source. on dex, remdesivir. Now on RA. Will narrow zosyn to ceftriaxone. Ok for home with 5 more days po augmentin 875mg bid. Will follow (2) Acute hypoxemic respiratory failure due to COVID-19:
[2021-06-28] MEDS: dexAMETHasone 4 MG Tablet 6 MG PO (10:48)
[2021-06-28] MEDS: Losartan Potassium 50 MG Tablet PO (10:48)
[2021-06-28] MEDS: Folic Acid 1 MG Tablet 0.5 MG PO (10:49)
[2021-06-28] MEDS: Ferrous Sulfate 325 MG Tablet PO (10:49)
[2021-06-28] MEDS: Aspirin E.C. 81 MG Tablet PO (10:49)
[2021-06-28] MEDS: Omega-3 Acid Ethyl Esters 1 GM Capsule PO (10:50)
[2021-06-28] MEDS: Clopidogrel Bisulfate 75 MG Tablet PO (10:50)
[2021-06-28] MEDS: Atorvastatin Calcium 40 MG Tablet PO (10:50)
[2021-06-28] MEDS: Furosemide 40 MG Tablet PO (10:50)
[2021-06-28] MEDS: Pantoprazole Sodium 40 MG Tablet PO (10:50)
[2021-06-28] MEDS: Levothyroxine 100 MCG Tablet PO (10:51)
[2021-06-28] MEDS: Metoprolol(XL)Succ 100 MG Tablet PO (10:51)
[2021-06-28] MEDS: Cholecalciferol (VIT D3) 25 MCG TABLET (1,000 UNITS) PO (10:55)
[2021-06-28] MEDS: Ascorbic Acid 500 MG Tablet PO (10:55)
[2021-06-28] MEDS: Magnesium Chloride 64 MG Delay Rel.Tablet 128 MG PO (10:56)
[2021-06-28] MEDS: Enoxaparin 30 MG/0.3 ML Syringe SC (10:56)
[2021-06-28] MEDS: Multivitamins,Therapeutic Tablet 1 TABLET PO (10:56)
--- NOTE | 2021-06-28 15:23 | NURSING ---
Assisted patient into the bathroom. patient ambulated well with minimal assistance. pt denies further needs at this time. pulse ox remains 95% on RA.
--- NOTE | 2021-06-28 15:33 | DS.PCM_ITS ---
Providers Date of Admission: 06/26/21 Primary Care Physician: Dr. Boyd Casiano MD Consultations 06/27/21 11:38 Consult: Infectious Disease Routine Consulting Provider: Jerome Mahajan Reason for Consult: gram neg bacteremia, covid EMERGENT Consult: No MD Notified: Yes Date Notified: 06/27/21 Time Notified: 11:40 Method of Notification: Answering Service Method of Consult:: In-Person Reason For Visit: ACUTE HYPOXIC RESP FAILURE DUE TO COVID Diagnosis Discharge Diagnosis (1) COVID-19: Status: Acute Code(s): U07.1 - COVID-19 (2) Acute hypoxemic respiratory failure due to COVID-19: Status: Acute Code(s): U07.1 - COVID-19; J96.01 - Acute respiratory failure with hypoxia Medications at Discharge Home Medications ascorbic acid (vitamin C) 500 mg PO DAILY 01/16/18 folic acid 0.4 mg PO DAILY@0800 01/16/18 coenzyme Q10 100 mg PO DAILY 03/09/18 omega-3 fatty acids-fish oil 1 cap PO DAILY 11/12/18 levothyroxine 100 mcg PO DAILY 04/18/20 atorvastatin 40 mg tablet 40 mg PO DAILY #90 tab 07/24/20 multivitamin 1 tab PO DAILY 02/22/21 aspirin 81 mg PO DAILY@0800 #0 tab 02/27/21 nitroglycerin 0.4 mg sublingual tablet 0.4 mg SUBLINGUAL Q5-15M PRN 10 Days #25 tab 03/01/21 calcium citrate 200 mg (950 mg) tablet See Rx Instructions .ROUTE .COMPLEX 05/30/21 cholecalciferol (vitamin D3) 25 mcg (1,000 unit) tablet 25 mcg PO DAILY 05/30/21 magnesium 250 mg tablet 250 mg PO DAILY 05/30/21 prednisone 20 mg tablet 9 mg PO BREAKFAST tab 05/30/21 vitamin E (dl, acetate) 180 mg (400 unit) capsule 180 mg PO DAILY 05/30/21 clopidogrel 75 mg PO DAILY 06/26/21 ferrous sulfate 325 mg PO DAILY 06/26/21 furosemide 40 mg PO DAILY 06/26/21 isosorbide mononitrate 30 mg PO BID 06/26/21 losartan 50 mg PO BID 06/26/21 pantoprazole [Protonix] 40 mg PO DAILY 06/26/21 amoxicillin-pot clavulanate 1 tab PO BID #10 tab 06/28/21 dexamethasone 6 mg PO DAILY #8 tab 06/28/21 metoprolol succinate 50 mg PO BID 06/28/21 Hospital Course Operations None Procedures None Summary of Care Provided Minutes Spent on Discharge: 45 Hospital Course: PRECIOUS LEIGH, is a 85 F with an extensive PMH as outlined who presents via the ED with a complaint of weakness and shortness of breath. She also had a temperature of up to 101.7F. She received the monoclonal antibodies on the day she was admitted. SHe had associated lethargy and cough which was nonproductive. She has been feeling very weak and tired for several mo nths, and says she was diagnosed with mediastinal lymphadenopathy of unclear etiology per CT, and is following up with pulmonology. She has been vaccinated, but hasn't received the booster as she has been unwell of late with problems like anemia and so her doctor had recommended that she should not get the booster as of now. She denied any chest pain, palpitations, dizziness, nausea vomiting or diarrhea. Review of systems otherwise negative. Vitals were BP of 121/41, WI of 70, RR of 24 and temp of 100.3, and 4L of oxygen. CBC showed wbc of 11.5, hb of 12.6, platelets of 278; D dimer was elevated at 2.48. BMP was significant for Cr of 1.23 and lactic acid of 2.2. CTA showed no PE but showed diffuse scattered pulmonary airspace opacities concerning for underlying infectious inflammatory process, and small left and trace right pleural effusions. COVID test was positive. She was admitted to be managed for acute hypoxic respiratory failure due to covid 19 pneumonia. She was started on remdesivir and Decadron. Patient's shortness of breath gradually improved and she was weaned off of oxygen. Blood cultures came back positive for Klebsiella pneumonia. Infectious disease was consulted and patient was started on IV Zosyn. Based on speciation, antibiotics were narrowed down to IV ceftriaxone. Patient felt much better. Repeat blood cultures were pending at time of discharge. She remained stable and was discharged home on a 5-day course of PO augmentin. Patient seen and examined prior to discharge. She had no complaints and felt well. She was on room air. Review of systems otherwise negative. Labs and vitals reviewed. Home meds reviewed and reconciled. Physical Exam Const alert, oriented x3 and no apparent distress General Appearance: cooperative and comfortable Orientation / Consciousness: awake Exam Limitations: no limitations HEENT normocephalic, head/scalp atraumatic, hearing grossly normal bilaterally and moist oral mucous membranes Eyes PERRL, EOMs intact bilaterally and conjunctivae normal Neck no lymphadenopathy and supple Resp normal respiratory effort, no retractions and no use of accessory muscles Resp Narrative: on room air. Cardio regular rate, regular rhythm, S1 normal heart sound, S2 normal heart sound and no murmurs GI normal to inspection, nondistended, normoactive bowel sounds, soft to palpation, non-tender and non-distended Extremity normal to inspection, full ROM and no clubbing, cyanosis or edema Skin no rashes or lesions noted Neuro oriented x3, CN's II-XII intact bilaterally and moves all extremities Sensorium / Orientation: awake and alert Psych affect normal Weight / BMI Weight Weight: 175 lb 4.28 oz Body Mass Index (BMI) 30.0 ABG / Lab / Microbiology Data Result Diagrams: 06/28/21 06:05 06/28/21 06:05 Laboratory: Laboratory Results - last 24 hr 06/27/21 15:15: Urine Color Yellow, Urine Clarity Clear, Urine pH 6.0, Ur Specific [place] 1.015, Urine Protein 100 H, Urine Glucose (UA) 100 H, Urine Ketones Negative, Urine Occult Blood 10 H, Urine Nitrite Negative, Urine Bilirubin Negative, Urine Urobilinogen Normal, Ur Leukocyte Esterase 25 H, Urine RBC 0 SEEN, Urine WBC 0-5 SEEN, Ur Squamous Epith Cells 0-5 SEEN, Urine Bacteria 0 SEEN, Urine Mucus 0 SEEN 06/27/21 16:46: POC Glucose 271 H 06/28/21 06:05: WBC 15.5 H, RBC 3.53 L, Hgb 10.8 L, Hct 32.1 L, MCV 90.9, MCH 30.6, MCHC 33.6, RDW Std Deviation 48.0 H, RDW Coeff of [place] 14.5, Plt Count 255, MPV 10.2, Immature Gran % (Auto) 2.100 H, Neut % (Auto) 84.9 H, Lymph % (Auto) 8.5 L, [place] % (Auto) 4.3, Eos % (Auto) 0.0, Baso % (Auto) 0.2, Absolute Neuts (auto) 13.2 H, Absolute Lymphs (auto) 1.32, Nucleated RBC % 0 06/28/21 06:05: Sodium 141, Potassium 3.9, Chloride 106, Carbon Dioxide 28.0, Anion Gap 7, BUN 30 H, Creatinine 1.03 H, Estim Creat Clear Calc 35.74, Est GFR (MDRD) Af Amer 66, Est GFR (MDRD) Non-Af 54 L, BUN/Creatinine Ratio 29.1 H, Glucose 148 H, Calcium 8.7 Microbiology: Microbiology 06/26/21 04:10 Blood Culture (Wb) - Anticubital Right Blood Culture - Final Gram negative lelo 06/26/21 04:19 Blood Culture (Wb) - Right Hand Blood Culture - Preliminary Klebsiella pneumoniae sp pneum 06/27/21 03:15 Urine, Random Legionella Antigen - Final 06/27/21 03:15 Urine, Random Streptococcus pneumoniae Antigen (M - Final D/C Instructions Discharge Diet: Low fat / Low cholesterol Discharge Activity: Return to Normal Activity Weight Bearing Status: Weight bearing as tolerated Call your doctor if you observe: Fever of 101 or Higher, Shortness of breath, Swelling in the ankles and Increased palpitations (irregular heartbeat) Meaningful Use Info Meaningful Use Diagnoses (Choose all that apply): None applicable Discharge Plan Admission Admit Date/Time: 06/26/21 07:23 Primary Reason for Your Visit: acute hypoxic respiratory failure due to covid, bacteremia Attending Provider: Ora Murphy Primary Care Provider: Boyd Casiano Consulting Providers: Jerome Mahajan Discharge Orders/Prescriptions Prescriptions: New amoxicillin-pot clavulanate 875-125 mg tablet 1 tab PO BID Qty: 10 RF: 0 dexamethasone 6 mg tablet 6 mg PO DAILY Qty: 8 RF: 0 Continued vitamin E (dl, acetate) 180 mg (400 unit) capsule 180 mg PO DAILY RF: 0 cholecalciferol (vitamin D3) 25 mcg (1,000 unit) tablet 25 mcg PO DAILY RF: 0 magnesium 250 mg tablet 250 mg PO DAILY RF: 0 prednisone 20 mg tablet 9 mg PO BREAKFAST RF: 0 folic acid 0.4 MG tablet 0.4 mg PO DAILY@0800 RF: 0 ascorbic acid (vitamin C) 500 MG capsule 500 mg PO DAILY RF: 0 coenzyme Q10 100 MG capsule 100 mg PO DAILY RF: 0 omega-3 fatty acids-fish oil 1 EACH capsule 1 cap PO DAILY RF: 0 calcium citrate 200 mg (950 mg) tablet See Rx Instructions .ROUTE .COMPLEX RF: 0 levothyroxine 100 MCG tablet 100 mcg PO DAILY RF: 0 multivitamin Tablet 1 tab PO DAILY RF: 0 aspirin 81 MG tablet 81 mg PO DAILY@0800 Qty: 0 RF: 0 clopidogrel 75 mg tablet 75 mg PO DAILY RF: 0 ferrous sulfate 325 mg (65 mg iron) tablet 325 mg PO DAILY RF: 0 furosemide 40 mg tablet 40 mg PO DAILY RF: 0 isosorbide mononitrate 30 mg tablet extended release 24 hr 30 mg PO BID RF: 0 losartan 50 mg tablet 50 mg PO BID RF: 0 pantoprazole [Protonix] 40 mg tablet,delayed release (DR/EC) 40 mg PO DAILY RF: 0 metoprolol succinate 50 mg tablet extended release 24 hr 50 mg PO BID RF: 0 atorvastatin 40 mg tablet 40 mg PO DAILY Qty: 90 RF: 3 nitroglycerin 0.4 mg tablet, sublingual 0.4 mg SUBLINGUAL Q5-15M PRN (Reason: chest pain) 10 Days Qty: 25 RF: 3 Referrals / Follow Up: Boyd Casiano MD [Primary Care Provider] - Within 2 Weeks Disposition Disposition (needs filled in before D/C Order can be placed): Home, Self Care Charges/Coding Visit Charges Inpatient E&M: 75356 Disch Hosp
== END 2021-06-28 17:30 | disposition home or self-care (01) | DRG 177 ==
LOC: ED 04:22 → MS3 08:21
PROVIDERS: Internal Medicine Infectious Disease; Admitting Provider Student in an Organized Health Care Education/Training Program; Emergency Provider Emergency Medicine; PCP Family Medicine; Visit Provider Student in an Organized Health Care Education/Training Program
DX: U07.1 COVID-19 (principal); J96.01 Acute respiratory failure with hypoxia; J12.82 Pneumonia due to coronavirus disease 2019; R78.81 Bacteremia; I50.9 Heart failure, unspecified; I11.0 Hypertensive heart disease with heart failure; I25.10 Atherosclerotic heart disease of native coronary artery without angina pectoris; E78.00 Pure hypercholesterolemia, unspecified; E07.9 Disorder of thyroid, unspecified; E78.5 Hyperlipidemia, unspecified; D64.9 Anemia, unspecified; E03.9 Hypothyroidism, unspecified; Z79.02 Long term (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 antithrombotics/antiplatelets; R59.0 Localized enlarged lymph nodes; Z79.82 Long term (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 aspirin
CPT/HCPCS: 36415; 71275; 80048; 80053; 81001; 82550; 82962; 83605; 83615; 83880; 84484; 85025; 85379; 85384; 85610; 86140; 87040; 87077; 87186; 87449; 93005; 94762; 97110; 97116; 97161; 97166; 97530; 97535; 99251; 99285; J7030; J7050; M0243; Q9967; A4216; G0463; J0248; J0696; Q0244

== ENCOUNTER 2021-07-03 13:03 | Outpatient (CLI) | payer MEDICARE, OTHER, SELFPAY ==
[2021-06-20 13:17] VITALS: BMI 31.9
== END 2021-07-03 23:59 | disposition short-term general hospital (02) ==
LOC: LABSPEC 13:05
PROVIDERS: PCP Family Medicine; Referring Provider Physician Assistant Surgical; Visit Provider Physician Assistant Surgical
DX: U07.1 COVID-19 (principal)
CPT/HCPCS: 87635; U0003; U0005

== ENCOUNTER 2021-07-10 13:35 | Outpatient (CLI) | payer MEDICARE, OTHER, SELFPAY ==
[2021-06-20 13:17] VITALS: BMI 31.9
== END 2021-07-10 23:59 | disposition short-term general hospital (02) ==
LOC: LABSPEC 13:36
PROVIDERS: PCP Family Medicine; Visit Provider Physician Assistant Surgical
DX: Z11.52 Encounter for screening for COVID-19 (principal)
CPT/HCPCS: 87635; U0003; U0005

== ENCOUNTER 2021-07-16 13:00 | Outpatient (RCR) | payer MEDICARE, OTHER, SELFPAY ==
[2021-06-16 00:34] VITALS: BP 150/48; BP 168/64
--- NOTE | 2021-06-20 13:08 | CR.ITP_ITS ---
Diagnosis Exercise - 60-day Assessment - Visit Date of Eval: 06/20/21 Session #:: 18 Comments:: 06/20/2021 patient notified CR services she had tested positive for COVID-19 in the emergency room. She will be quarantined from CR for 14 days. - Physician Prescribed Exercise Modalities: NuStep, SciFit Frequency: 3x/week for 12 weeks [36 sessions] Intensity: 60-80% of age predicted maximum heart rate reserve Current METSs:: 4.0 Target Heart Rate:: 89-114 Current RPE:: 12-13 Maximum Excercise HR:: 85 Resting Blood Pressure: 140/48 Maximum Exercise Blood Pressure: 150/50 EKG Type: NSR to sinus tach with PACs, rare burst of PAT noted. Current Physical Activity or Exercising minutes: 42:36 - Outcomes & Goals Goals:: Verbalizes understanding of THR, RPE & goal METS by session 6, Documents in home exercise log/reports 30 min aerobic 5 day/wk by DC, Demonstrates accurate pulse taking by DC - Intervention & Plan Exercise Program Goals: Instruct on personal THR & RPE, Instruct on MET level & personal MET goal, Show patient to take own pulse /validate performance until accurate, Instruct on home exercise - 30-day Reassessments 30 day Reassessments:: Progressing - Physical Activity Home Exercise Physical Activity - Home Exercise: Safe Exercise, Warm-up, Self-monitoring, Cool-Down, Home Exercise > 30 min Daily, Sitting Time <3 hours/daily - Outcomes & Goals Outcomes/Goals: Demonstrates correct Warm-up/exercise Cool-Down (S3) if = 2.5 METs, Verbalizes symptoms of exercise intolerance by Session 3 (S3), Demonstrate safe equipment use (S3) & follows exercise prescrition (6) - Intervention & Plan Plan/Intervention: Instruct warm-up & cool-down if exercising at > 2 METs, Instruct on symptoms of exercise intolerance & actions to take, Instruct & monitor on saf, Assess intial functional capacity & safety risk - 30-day Reassessments 30 day Reassessments:: Progressing Nutrition - Initial Assessment Nutrition - 30-Day Assessment Nutrition - 60-Day Assessment - Program Goals Nutrition Program Goals: LDL <100 optimal. 100 - 129 Near optimal. 130 - 159 Borderline High. 160 - 189 High. Total Cholesterol <200 desirable. 200 - 239 Borderline High. >/= 240 High. HDL < 40 Low >/=60 High. Triglycerides <150 desirable. <199 optimal. VlDL 5 - 40. HgbA1C <7%. BMI <25 Patient has diagnosis of Hyperlipidemia (ICD E78)?: Yes - Visit Date of Assessment:: 06/20/21 Session #:: 18 - Cholesterol/Lipids Triglycerides (mg/dL): 211 Total Cholesterol (mg/dL): 90 LDL Cholesterol (mg/dL): 19 HDL Cholesterol (mg/dL): 29 Determine presence & major risk factors that modify LDL goal: Hypertension or hypertensive medication, Family history of premature CHD in Male < 55 years: female <65 yearsFa, Age men > 45 years; women >/= 55 years Outcomes/Goals: Pt IDs own risk factors & lifestyle modifications by Session 10, Verbalizes symptoms of angina & response by session 3., Pt independently manages Intervention/Plan: Instruct on personal lipid levels & lipid goals/NCEP guidelines, Instruct on cholesterol Referral to dietitian:: No 30-day Reassessments:: Progressing - Diabetes (Other Core Measures) Diabetes Type: Diagnosis Type II ICD-10 E11 Fasting blood glucose:: 152 Hgb A1C (4.2 -6.3): 5.8 Insulin dependent injection/pump?: Yes Non-Insulin Dependent?: Yes Do you monitor your blood sugar at home?: Yes Referral to Diabetic Clinic:: Yes Outcomes/Goals:: Able to state symptoms of, Able to state, Able to state Intervention/Plan:: Instruct on, Instruct on 30-day Reassessments:: Met - Weight Mgt (Other Care) Not Applicable: No Height: 5 ft 1 in Weight:: 169 lb - up from 165.5 BMI: 31.9 Diagnosis Overweight/Obesity BMI> 30% ICD-10 E66: Yes Diagnosis High BMI/Morbid Obesity BMI> 35% ICD-10 Z68: No Outcomes/Goals: Pt sets, maintains & shows weight loss goal & trend during rehab Intervention/Plan: Instruct on ideal BMI & set weight loss goal w/patient, Assist pt to ID & incorporate diet changes for weight loss by S9, Encourage goal of using 250-300dcal per session for weight loss 30 day Reassessments:: Progressing - Healthy Eating Habits Will attend diet classes:: Yes Outcomes/Goals:: Consume diet rich in vegs,fruits,whole grain/high fiber,fish,lean meat, Limit sat/trans fats,cholesterol & added salts & sugars Intervention/Plan:: Assess current eating habits 30-day Reassessments:: Progressing - Education Gave educational materials for:: Healthy eating Nutrition - 90-Day Assessment Nutrition - Final Assessment Medical - Initial Assessment Medical- 30-Day Assessment Medical- 60-Day Assessment - Visit Date of Eval: 06/20/21 Session #:: 18 - Medication Compliance Preventative Medication(s):: Aspirin, Clopidogrel/P2Y12 inhibit, Statin/lipid, Beta skylar H/O mental health issues: depression, anxiety, or addiction?: No Doesn?t believe in the benefits of treatment?: No Believes medications are unnecessary or harmful?: No Has a concern about medication side effects?: No Expresses concern over the cost of medications?: No Outcomes/Goals: Verbalizes medications,desired effect & common side effects @ DC, Pt self-reports following medication regimen, Keeps card in wallet w/medications listed by DC Interventions/plans: Instruct on medication effects & side effects, Review medication list w/patient every two weeks, Instruct importance of taking meds as ordered & assist problem solving 30-day Reassessments:: Met - Tobacco Use Tobacco Use: Non-smoker - Hypertension Hypertension Diagnosis:: Hypertension ICD-10 I10 Resting Blood Pressure:: 150/48 [place] [employer] Hypertension Guidelines: [place] [employer] Hypertension Guidelines. Normal BP Less than 120/80. Elevated BP 120/80. Hypertension Stage 1: BP 130-139/80-89. Hypertesnion Stage 2: BP 140 or higher/90 or higher. Hypertension Crisis: BP higher than 180/120 Peak Exercise Blood Pressure:: 160/50 Outcomes/Goals: Able to verbalize/achieve optimal blood pressure <130/80, Incorporates diet changes & exercise for blood pressure control by DC Interventions/plan: Instruct on optimal blood pressure, hypertension & medications, Instruct on effects of sodium, alcohol, stress, exercise &hypertension 30 day Reassessments:: Progressing - Tobacco Cessation Referral Smoking Cessation Referral:: No Individual Education/Counseling:: No Education Schedule Given:: Yes Medical- 90-Day Assessment Medical - Final Assessment Psychosocial - Initial Assess Psychosocial - 30-Day Assess Psychosocial - 60-Day Assess - VIsit Date of Eval: 06/20/21 Session #:: 18 Not Applicable: Yes History of previous Mental disease:: No - Psychosocial Test Tool Used:: PHQ-9 Questionnaire phq-9 Severity: Severity. 1-4 Minimal Depression. 5-9 Mild Depression. 10-14 Moderate Depression. 15-19 Moderately Sever Depression. 20-27 Severe Depression. Rule: - Referral to Behavioral Health PS - Interventions: Yes Attend Stress Management Classes, No Referral to Behavioral Health if PHQ-9 score >9:, No Referral to [facility], No Referral to Physician if PHQ-9 if score is 5-9: - Outcomes/Goals: See list Psychosocial Outcomes/Goals:: ID's personal stressors & 2 strategies to manage stress by discharge - Intervention/Plan: See List Interventions/Plan:: Assess stressors,coping strategies & signs of derpression on admission, Instruct/assist pt to develop coping & personal stress Mgt strategies, Instruct patient to recognize signs & symptoms of depression, Instruct patient to recog - 30-day Reassessments: 30 day Reassessments:: Met Psychosocial - 90-Day Assess Psychosocial - Final Assessmen Patient Health Questionnaire 60-Day Re-eval Assessment 1. Little interest or pleasure in doing things: Not at all 2. Feeling down, depressed, or hopeless: Not at all 3. Trouble falling or staying asleep, or sleeping too much: Nearly every day 4. Feeling tired or having little energy: Nearly every day 5. Poor appetite or overeating: Not at all 6. Feeling bad about yourself -- or that you are a failure or have let yourself or your family down: Not at all 7. Trouble concentrating on things, such as reading the newspaper or watching television: Not at all 8. Moving or speaking so slowly that other people could have noticed. Or the opposite - being so fidgety or restless that you have been moving around a lot more than usual: Not at all 9. Thoughts that you would be better off , or of hurting yourself in some way: Not at all How difficult have these problems made it for you to do your work, take care of things at home, or get along with other people?: Not difficult at all Total Score: 6 Self-Efficacy 60-Day Re-eval Assessment We would like to know how confident you are in doing certain activities. Please select your confidence level for:: Select your confidence level for the following using the scale 1-10 where 1 is not at all confident and 10 is totally confident. Your score is the average of all 6 responses. Fatigue: How confident are you that you can keep the fatigue caused by your dise ase from interfering with the things you want to do? Select Number: 8 Physical Discomfort or Pain: How confident are you that you can keep the physica l discomfort or pain of your disease from interfering with the things you want to do? Select Number: 8 Emotional Distress: How confident are you that you can keep the emotional distress caused by your disease from interfering with the things you want to do? Select Number: 9 Other Symptoms or Health Problems: How confident are you that you can keep other symptoms or health problems from interfering with the things you want to do? Select Number: 8 Different Tasks and Activities: How confident are you that you can do the different tasks and activities needed to manage your health condition so as to reduce your need to see a doctor? Select Number: 6 Medication: How confident are you that you can do things other than just taking medication to reduce how much your illness affects your everyday life? Select Number: 8 Total Score:: 7 Nutrition Survey
[2021-06-20 13:17] VITALS: BP 140/48; BP 150/48; BP 160/50; BMI 31.9
== END 2021-07-16 23:59 ==
LOC: CR 13:00
PROVIDERS: PCP Family Medicine; Referring Provider Internal Medicine Cardiovascular Disease; Visit Provider Internal Medicine Cardiovascular Disease
DX: I25.10 Atherosclerotic heart disease of native coronary artery without angina pectoris (principal); Z98.61 Coronary angioplasty status; Z95.5 Presence of coronary angioplasty implant and graft
CPT/HCPCS: 93798

== ENCOUNTER → 2021-07-16 | Outpatient (CLI) | payer MEDICARE, OTHER, SELFPAY ==
[2021-06-20 13:17] VITALS: BMI 31.9
[2021-07-16 08:22] LABS: Absolute Lymphocyte Count 2.56 X10^3/uL (0.83-4.51); Absolute Neutrophil Count 7.1 X10^3/uL (2.0-7.7); Basophil# 0.05 X10^3/uL; Basophil% 0.5 % (0-1); Eosinophil# 0.27 X10^3/uL; Eosinophils% 2.5 % (0-5); Hematocrit 36.9 % (37-47); Hemoglobin 11.6 g/dL (12.0-15.0); Lymphocyte # 2.56 X10^3/ul (0.83-4.51); Lymphocyte % 23.5 % (19-41); Mean Corp Hgb Conc 31.4 g/dL (32-36); Mean Corpuscular Hgb 30.9 pg (27.0-32.0); Mean Corpuscular Volume 98.1 fL (81-99); Mean Platelet Vol. 10.1 fl (6.2-12.0); Monocyte# 0.74 X10^3/uL; Monocyte% 6.8 % (0-10); NRBC Flagged by Analyzer 0 % (0-5); Neutrophil # 7.14 X10^3/uL (2.7-7.7); Neutrophil % 65.3 % (47-70); Platelet Count 189 K/mm3 (150-450); RBC Distribution Width CV 15.9 % (11.6-14.6); RBC Distribution Width SD 56.8 fl (35.1-43.9); RET-HE 36.4 pg (30-35); Red Blood Count 3.76 M/mm3 (4.2-5.4); Reticulocyte Count 3.09 % (0.5-1.5); White Blood Count 10.9 K/mm3 (4.4-11.0)
[2021-07-16 08:57] LABS: ALB/GLOB Ratio 0.9 RATIO (0.9-2.4); AST(SGOT) 18 U/L (15-37); Alanine Aminotransfer ALT/SGPT 29 U/L (13-56); Albumin, Serum 3.2 g/dL (3.2-5.0); Alkaline Phosphatase 51 U/L (45-117); Anion Gap 6 (5-15); BUN 20 mg/dL (7-18); Calcium,Total 8.5 mg/dL (8.5-10.1); Chloride 102 mmol/L (98-107); Creatinine, Serum 1.05 mg/dL (0.55-1.02); EST Glomerular Filtration Rate 53 mL/min (>60); Est Glom Filt Rate - Afr Amer 64 mL/min (>60); Globulin 3.7 g/dL (2.2-4.2); Glucose 92 mg/dL (74-106); LDH 280 U/L (84-246); Potassium 3.7 mmol/L (3.5-5.1); Protein, Total 6.9 g/dL (6.4-8.2); Sodium Level 140 mmol/L (136-145)
[2021-07-17 09:15] LABS: Haptoglobin 184 mg/dL (41-333)
== END | disposition home or self-care (01) ==
LOC: LAB 07:04
PROVIDERS: PCP Family Medicine; Referring Provider Internal Medicine Medical Oncology; Visit Provider Internal Medicine Medical Oncology
DX: E78.5 Hyperlipidemia, unspecified (principal); D59.10 Autoimmune hemolytic anemia, unspecified
CPT/HCPCS: 36415; 80053; 83010; 83615; 85025; 85045

== ENCOUNTER 2021-08-13 13:00 | Outpatient (RCR) | payer MEDICARE, OTHER, SELFPAY ==
[2021-06-20 13:17] VITALS: BMI 31.9
[2021-07-17 00:40] VITALS: BP 140/48; BP 150/48; BP 160/50
--- NOTE | 2021-07-19 10:35 | CR.ITP_ITS ---
Diagnosis Exercise - 90-day Assessment - Visit Date of Haris: 07/19/21 Session #:: 24 Comments:: Pt is back in rehab after recovering from COVID-19. - Physician Prescribed Exercise Modalities: Airdyne Frequency: 3x/week for 12 weeks [36 sessions] Intensity: 60-80% of age predicted maximum heart rate reserve Current METSs:: 4 Target Heart Rate:: 89-114 Current RPE:: 13 Maximum Excercise HR:: 85 Resting Blood Pressure: 160/50 Maximum Exercise Blood Pressure: 154/50 EKG Type: NSR with PAC's, bursts of PAT. Slight ST depression. - Outcomes & Goals Goals:: Verbalizes understanding of THR, RPE & goal METS by session 6, Documents in home exercise log/reports 30 min aerobic 5 day/wk by DC, Demonstrates accurate pulse taking by DC, Other additional outcome/goals: see below - Intervention & Plan Exercise Program Goals: Instruct on personal THR & RPE, Instruct on MET level & personal MET goal, Show patient to take own pulse /validate performance until accurate, Instruct on home exercise, Other additional plan/int - 30-day Reassessments 30 day Reassessments:: Progressing - Physical Activity Home Exercise Physical Activity - Home Exercise: Safe Exercise, Warm-up, Self-monitoring, Cool-Down, Home Exercise > 30 min Daily, Sitting Time <3 hours/daily - Outcomes & Goals Outcomes/Goals: Demonstrates correct Warm-up/exercise Cool-Down (S3) if = 2.5 METs, Verbalizes symptoms of exercise intolerance by Session 3 (S3), Demonstrate safe equipment use (S3) & follows exercise prescrition (6), Other: See below - Intervention & Plan Plan/Intervention: Instruct warm-up & cool-down if exercising at > 2 METs, Instruct on symptoms of exercise intolerance & actions to take, Instruct & monitor on saf, Assess intial functional capacity & safety risk, Other See below - 30-day Reassessments 30 day Reassessments:: Progressing Nutrition - Initial Assessment Nutrition - 30-Day Assessment Nutrition - 60-Day Assessment Nutrition - 90-Day Assessment - Program Goals Nutrition Program Goals: LDL <100 optimal. 100 - 129 Near optimal. 130 - 159 Borderline High. 160 - 189 High. Total Cholesterol <200 desirable. 200 - 239 Borderline High. >/= 240 High. HDL < 40 Low >/=60 High. Triglycerides <150 desirable. <199 optimal. VlDL 5 - 40. HgbA1C <7%. BMI <25 Patient has diagnosis of Hyperlipidemia (ICD E78)?: Yes - Visit Date of Assessment:: 07/19/21 Session #:: 24 - Cholesterol/Lipids Determine presence & major risk factors that modify LDL goal: Hypertension or hypertensive medication, Low HDL cholesterol <40 mg/dL*, Family history of premature CHD in Male < 55 years: female <65 yearsFa, Age men > 45 years; women >/= 55 years Intervention/Plan: Advocate for lipid panel cholesterol medication if applicable, Instruct on personal lipid levels & lipid goals/NCEP guidelines, Instruct on cholesterol, Other additional plan/int Referral to dietitian:: No 30-day Reassessments:: Progressing - Diabetes (Other Core Measures) Diabetes Type: Diagnosis Type II ICD-10 E11 Insulin dependent injection/pump?: Yes Non-Insulin Dependent?: Yes Do you monitor your blood sugar at home?: Yes Referral to Diabetic Clinic:: Yes Outcomes/Goals:: Able to state symptoms of, Able to state, Able to state, Other additional Intervention/Plan:: Instruct on, Refer to, Instruct on, Other 30-day Reassessments:: Progressing - Weight Mgt (Other Care) Height: 5 ft 1 in Weight:: 77.791 kg BMI: 32.3 Diagnosis Overweight/Obesity BMI> 30% ICD-10 E66: No Diagnosis High BMI/Morbid Obesity BMI> 35% ICD-10 Z68: No Outcomes/Goals: Pt sets, maintains & shows weight loss goal & trend during rehab, Other additional outcomes/goals Intervention/Plan: Instruct on ideal BMI & set weight loss goal w/patient, Assist pt to ID & incorporate diet changes for weight loss by S9, Refer to Structured Weight Loss program as appropriate, Encourage goal of using 250- 300dcal per session for weight loss, Other additional plan/interventions 30 day Reassessments:: Progressing - Healthy Eating Habits Will attend diet classes:: Yes Outcomes/Goals:: Consume diet rich in vegs,fruits,whole grain/high fibe r,fish,lean meat, Limit sat/trans fats,cholesterol & added salts & sugars, Other additional outcome/goals: Intervention/Plan:: Assess current eating habits, Other Additional p chadd/interventions 30-day Reassessments:: Progressing - Education Gave educational materials for:: Signs & symptoms of hypoglycemia, Signs & symptoms of hyperglycemia, Relate diabetes to coronary artery disease, Healthy eating Nutrition - Final Assessment Medical - Initial Assessment Medical- 30-Day Assessment Medical- 60-Day Assessment Medical- 90-Day Assessment - Visit Date of Eval: 07/19/21 Session #:: 24 - Medication Compliance Preventative Medication(s):: Aspirin, Clopidogrel/P2Y12 inhibit, Statin/lipid, Beta skylar H/O mental health issues: depression, anxiety, or addiction?: No Doesn?t believe in the benefits of treatment?: No Believes medications are unnecessary or harmful?: No Has a concern about medication side effects?: No Expresses concern over the cost of medications?: No Outcomes/Goals: Verbalizes medications,desired effect & common side effects @ DC, Pt self-reports following medication regimen, Keeps card in wallet w/m edications listed by DC, Other additional outcome/goals: Interventions/plans: Instruct on medication effects & side effects, Review medication list w/patient every two weeks, Instruct importance of taking meds as ordered & assist problem solving, Other additional 30-day Reassessments:: Progressing - Tobacco Use Tobacco Use: Non-smoker - Hypertension Hypertension Diagnosis:: Hypertension ICD-10 I10 Resting Blood Pressure:: 160/50 [place] [employer] Hypertension Guidelines: [place] [employer] Hypertension Guidelines. Normal BP Less than 120/80. Elevated BP 120/80. Hypertension Stage 1: BP 130-139/80-89. Hypertesnion Stage 2: BP 140 or higher/90 or higher. Hypertension Crisis: BP higher than 180/120 Peak Exercise Blood Pressure:: 160/50 Outcomes/Goals: Able to verbalize/achieve optimal blood pressure <130/80, Incorporates diet changes & exercise for blood pressure control by DC, Other additional outcomes/goals Interventions/plan: Instruct on optimal blood pressure, hypertension & medications, Instruct on effects of sodium, alcohol, stress, exercise &hypertension, Other additional plan/interventions 30 day Reassessments:: Progressing - Tobacco Cessation Referral Smoking Cessation Referral:: No Individual Education/Counseling:: No Education Schedule Given:: Yes Medical - Final Assessment Psychosocial - Initial Assess Psychosocial - 30-Day Assess Psychosocial - 60-Day Assess Psychosocial - 90-Day Assess - VIsit Date of Eval: 07/19/21 History of previous Mental disease:: No - Intervention/Plan: See List Interventions/Plan:: Assess stressors,coping strategies & signs of derpression on admission, Instruct/assist pt to develop coping & personal stress Mgt strategies, Refer to Behavioral Health if appropriate, Refer to Physician if appropriate, Instruct patient to recognize signs & symptoms of depression, Instruct patient to recog, Other additional plan/intervention - 30-day Reassessments: 30 day Reassessments:: Progressing Psychosocial - Final Assessmen Patient Health Questionnaire 90-Day Re-eval Assessment 1. Little interest or pleasure in doing things: Not at all 2. Feeling down, depressed, or hopeless: Not at all 3. Trouble falling or staying asleep, or sleeping too much: Nearly every day 4. Feeling tired or having little energy: Nearly every day 5. Poor appetite or overeating: Not at all 6. Feeling bad about yourself -- or that you are a failure or have let yourself or your family down: Not at all 7. Trouble concentrating on things, such as reading the newspaper or watching television: Not at all 8. Moving or speaking so slowly that other people could have noticed. Or the opposite - being so fidgety or restless that you have been moving around a lot more than usual: Not at all 9. Thoughts that you would be better off , or of hurting yourself in some way: Not at all How difficult have these problems made it for you to do your work, take care of things at home, or get along with other people?: Not difficult at all Total Score: 6 Self-Efficacy 90-Day Re-eval Assessment We would like to know how confident you are in doing certain activities. Please select your confidence level for:: Select your confidence level for the following using the scale 1-10 where 1 is not at all confident and 10 is totally confident. Your score is the average of all 6 responses. Fatigue: How confident are you that you can keep the fatigue caused by your disease from interfering with the things you want to do? Select Number: 8 Physical Discomfort or Pain: How confident are you that you can keep the physical discomfort or pain of your disease from interfering with the things you want to do? Select Number: 8 Emotional Distress: How confident are you that you can keep the emotional distress caused by your disease from interfering with the things you want to do? Select Number: 9 Other Symptoms or Health Problems: How confident are you that you can keep other symptoms or health problems from interfering with the things you want to do? Select Number: 8 Different Tasks and Activities: How confident are you that you can do the different tasks and activities needed to manage your health condition so as to reduce your need to see a doctor? Select Number: 6 Medication: How confident are you that you can do things other than just taking medication to reduce how much your illness affects your everyday life? Select Number: 8 Total Score:: 7 Nutrition Survey
[2021-07-19 10:46] VITALS: BP 160/50; BMI 32.3
== END 2021-08-13 23:59 ==
LOC: CR 13:00
PROVIDERS: PCP Family Medicine; Referring Provider Internal Medicine Cardiovascular Disease; Visit Provider Internal Medicine Cardiovascular Disease
DX: I25.10 Atherosclerotic heart disease of native coronary artery without angina pectoris (principal); Z98.61 Coronary angioplasty status; Z95.5 Presence of coronary angioplasty implant and graft
CPT/HCPCS: 93798

== ENCOUNTER 2021-08-23 07:33 | Outpatient (CLI) | payer MEDICARE, OTHER, SELFPAY ==
[2021-07-19 10:46] VITALS: BMI 32.3
[2021-08-23 08:48] LABS: AST(SGOT) 18 U/L (15-37); Alanine Aminotransfer ALT/SGPT 29 U/L (13-56); Albumin, Serum 3.4 g/dL (3.2-5.0); Alkaline Phosphatase 45 U/L (45-117); Cholesterol 153 mg/dL (200); Globulin 3.6 g/dL (2.2-4.2); High Density Lipoprotein 47 mg/dL; Triglycerides 294 mg/dL; Very Low Density Lipoprotein 59 mg/dL (5-40)
== END 2021-08-23 23:59 | disposition home or self-care (01) ==
PROVIDERS: PCP Family Medicine; Referring Provider Nurse Practitioner Gerontology; Visit Provider Nurse Practitioner Gerontology
DX: E78.5 Hyperlipidemia, unspecified (principal); I25.10 Atherosclerotic heart disease of native coronary artery without angina pectoris
CPT/HCPCS: 36415; 80061; 80076

== ENCOUNTER 2021-08-29 15:45 | Outpatient (RCR) | payer MEDICARE, OTHER, SELFPAY ==
[2021-07-19 10:46] VITALS: BMI 32.3
[2021-08-14 00:33] VITALS: BP 160/50
== END 2021-09-13 23:59 | disposition home or self-care (01) ==
LOC: CR 15:45
PROVIDERS: PCP Family Medicine; Referring Provider Internal Medicine Cardiovascular Disease; Visit Provider Internal Medicine Cardiovascular Disease
DX: I25.10 Atherosclerotic heart disease of native coronary artery without angina pectoris (principal); Z95.5 Presence of coronary angioplasty implant and graft
CPT/HCPCS: 93798

== ENCOUNTER → 2021-12-06 | Outpatient (CLI) | payer MEDICARE, OTHER, SELFPAY ==
[2021-07-19 10:46] VITALS: BMI 32.3
[2021-12-06 15:45] LABS: T4 Free Direct 1.06 ng/dL (0.76-1.46); Thyroid Stim Hormone (TSH) 1.23 uIU/mL (0.358-3.74)
== END | disposition home or self-care (01) ==
LOC: LAB 13:28
PROVIDERS: PCP Family Medicine; Referring Provider Family Medicine; Visit Provider Family Medicine
DX: E03.9 Hypothyroidism, unspecified (principal)
CPT/HCPCS: 36415; 84439; 84443

== ENCOUNTER → 2022-03-01 | Outpatient (CLI) | payer MEDICARE, OTHER, SELFPAY ==
[2021-07-19 10:46] VITALS: BMI 32.3
[2022-03-01 11:04] LABS: AST(SGOT) 19 U/L (15-37); Alanine Aminotransfer ALT/SGPT 30 U/L (13-56); Albumin, Serum 3.7 g/dL (3.2-5.0); Alkaline Phosphatase 57 U/L (45-117); Bilirubin, Direct 0.19 mg/dL (0.00-0.30); Cholesterol 103 mg/dL (200); Globulin 3.8 g/dL (2.2-4.2); High Density Lipoprotein 36 mg/dL; Protein, Total 7.5 g/dL (6.4-8.2); Triglycerides 192 mg/dL; Very Low Density Lipoprotein 38 mg/dL (5-40)
== END | disposition home or self-care (01) ==
LOC: LAB 08:41
PROVIDERS: PCP Family Medicine; Referring Provider Nurse Practitioner Gerontology; Visit Provider Nurse Practitioner Gerontology
DX: E78.5 Hyperlipidemia, unspecified (principal)
CPT/HCPCS: 36415; 80061; 80076

== ENCOUNTER → 2022-06-06 | Outpatient (CLI) | payer MEDICARE, OTHER, SELFPAY ==
[2021-07-19 10:46] VITALS: BMI 32.3
== END | disposition home or self-care (01) ==
LOC: BFHLAB 13:27 → LABSPEC 13:30
PROVIDERS: PCP Family Medicine; Visit Provider Family Medicine
DX: R30.0 Dysuria (principal)
CPT/HCPCS: 87077; 87086; 87088; 87186

== ENCOUNTER → 2022-07-04 | Outpatient (CLI) | payer MEDICARE, OTHER, SELFPAY ==
[2021-07-19 10:46] VITALS: BMI 32.3
--- NOTE | 2022-07-04 13:26 | ECHOD_ITS ---
Reason For Study: MURMUR Procedure This was a 2D Doppler, Color Flow transthoracic echocardiogram. The exam was of adequate technical quality. Exam performed in department. Left Ventricle Normal LV size. Moderate concentric left ventricular hypertrophy. Left ventricular systolic function is normal. The estimated ejection fraction is 70 %. Stage 2 diastolic dysfunction. No regional wall motion abnormalities noted. Right Ventricle Normal RV size. Normal systolic function. Atria The left atrium is mildly enlarged. Normal right atrium. No doppler evidence for ASD. Mitral Valve There is moderate mitral annular calcification. Extension of the mitral annular calcification onto the base of the posterior mitral valve leaflet. Mitral valve doming/Hockey Sticking. Mild diffuse mitral valve thickening. Mild focal mitral valve calcification of the anterior leaflet. Mild mitral valve stenosis. Moderate (2+) mitral valve insufficiency. Tricuspid Valve Normal tricuspid valve. Mild tricuspid valve insufficiency. Right ventricular systolic pressure estimated to be 50 mmHg. Aortic Valve Trisinus/trileaflet aortic valve. Mild diffuse aortic valve thickening. Moderate focal aortic valve calcification. Mild to moderate aortic stenosis. Mild (1+) aortic valve insufficiency. Pulmonic Valve The pulmonic valve is not well visualized. Great Vessels Normal sized aortic root. Pericardium/Pleural No pericardial effusion. MMode/2D Measurements & Calculations LVIDd: 4.6 cm IVSd: 1.6 cm LVOT diam: 2.0 cm LVIDs: 2.2 cm LVPWd: 1.7 cm LVOT area: 3.0 cm2 RVDd: 3.3 cm FS: 51.6 % Ao root diam: 2.5 cm LAV(MOD-sp4): 72.3 ml LVAd ap4: 24.6 cm2 LVLd ap4: 7.6 cm EDV(MOD-sp4): 66.3 ml EDV(sp4-el): 67.4 ml LVAs ap4: 11.6 cm2 LVLs ap4: 5.9 cm ESV(MOD-sp4): 19.7 ml ESV(sp4-el): 19.2 ml EF(MOD-sp4): 70.3 % EF(sp4-el): 71.5 % SV(MOD-sp4): 46.6 ml SV(sp4-el): 48.2 ml LA A4 area: 23.7 cm2 LA dimension(2D): 4.2 cm RA A4 area: 19.2 cm2 Time Measurements MV dec time: 0.16 sec Doppler Measurements & Calculations MV E max phuc: 138.8 cm/sec Lat Peak E' Phuc: 7.2 cm/sec Med Peak E' Phuc: 4.7 cm/sec MV A max phuc: 93.6 cm/sec E/E' lat: 19.4 E/E' med: 29.8 MV E/A: 1.5 MV V2 max: 151.0 cm/sec Ao V2 max: 297.6 cm/sec MV max P.1 mmHg MV dec slope: 885.8 cm/sec2 Ao max P.4 mmHg MV V2 mean: 89.8 cm/sec Ao V2 mean: 226.5 cm/sec MV mean P.5 mmHg Ao mean P.3 mmHg MV V2 VTI: 56.2 cm Ao V2 VTI: 77.9 cm AV (velocity ratio): 0.46 MVA(VTI): 1.9 cm2 SHELTON(I,D): 1.4 cm2 SHELTON(V,D): 1.4 cm2 AI max phuc: 443.7 cm/sec LV V1 max: 133.6 cm/sec MR max phuc: 688.8 cm/sec AI max P.8 mmHg LV V1 max P.1 mmHg MR max P.8 mmHg LV V1 mean P.1 mmHg MR mean phuc: 483.1 cm/sec AI dec slope: 364.5 cm/sec2 LV V1 mean: 95.6 cm/sec MR mean P.3 mmHg AI P1/2t: 356.5 msec LV V1 VTI: 35.7 cm MR VTI: 239.0 cm SV(LVOT): 107.9 ml PA V2 max: 138.2 cm/sec TR max phuc: 342.8 cm/sec PA V2 mean: 98.7 cm/sec TR max P.0 mmHg ECHO/Echo Complete Interpretation Summary Left ventricular systolic function is normal. The estimated ejection fraction is 70 %. Moderate concentric left ventricular hypertrophy. The left atrium is mildly enlarged. There is moderate mitral annular calcification. Extension of the mitral annular calcification onto the base of the posterior mi tral valve leaflet. Mitral valve doming/Hockey Sticking Mild diffuse mitral valve thickening. Mild focal mitral valve calcification of the anterior leaflet. Mild mitral valve stenosis. Moderate (2+) mitral valve insufficiency. Mild tricuspid valve insufficiency. Mild to moderate aortic stenosis. Mild (1+) aortic valve insufficiency. Right ventricular systolic pressure estimated to be 50 mmHg. Stage 2 diastolic dysfunction. Ordering Physician: Luis Alberto Madera Referring Physician: Luis Alberto Madera Performed By: Lynn Valles RCS
== END | disposition home or self-care (01) ==
LOC: CVS 13:25
PROVIDERS: PCP Family Medicine; Referring Provider Internal Medicine Cardiovascular Disease; Visit Provider Internal Medicine Cardiovascular Disease
DX: R01.1 Cardiac murmur, unspecified (principal); I25.10 Atherosclerotic heart disease of native coronary artery without angina pectoris; I10 Essential (primary) hypertension; I34.0 Nonrheumatic mitral (valve) insufficiency; I35.0 Nonrheumatic aortic (valve) stenosis; E78.5 Hyperlipidemia, unspecified; Z95.5 Presence of coronary angioplasty implant and graft
CPT/HCPCS: 93306

== ENCOUNTER 2022-07-29 07:11 | Emergency (ER) | payer MEDICARE, OTHER, SELFPAY ==
[2021-07-19 10:46] VITALS: BMI 32.3
[2022-07-29 07:14] VITALS: BP 154/93; PULSE 60; RESP 17; TEMP 36.3; O2SAT 97; BMI 30.7
--- NOTE | 2022-07-29 07:44 | EX.ED.VIS.UR ---
HPI HPI - URI History of Present Illness Chief Complaint: Cough Informant: patient Onset/Context/Timing Onset: Weeks (1) Context: Gradual Onset Timing: Intermittent Quality: cough w/ occ yellow nonbloody sputum Current Severity: Moderate Maximum Severity: Severe Worsened by: - (lying down, overnight) Relieved by: - (nothing but hasn't tried any treatments) Associated Symptoms Associated Symptoms: Positive for Productive Cough; Negative for Nasal Congestion, Headache, Nausea, Vomiting, Shortness of Breath, Chest Pain or Hemoptysis Narrative Narrative: Patient states she was diagnosed with sarcoidosis, she has been on steroids for almost a year and was just tapered off of them taking the final 1 about 4 days ago. She has chronic mild dyspnea with exertion and states that is no worse lately. She has had a new cough for about a week, occasional yellow nonbloody sputum. She presents early this morning because overnight, with lying down she was coughing more and not necessarily bringing up more, but did not sleep all night due to coughing. She denies any other new symptom such as fevers or chills, GI symptoms, headache, myalgias. No known exposures to anyone sick that she knows of. No travel out of the area recently. She is vaccinated against COVID in the past, and not influenza this year. ROS ROS ED Constitutional Constitutional ED: Denies chills or fever(s) Eyes Eyes: Denies change in vision or diplopia ENT ENT ED: Denies rhinorrhea or sore throat Cardiovascular Cardiovascular: Reports other Details: Chronic mild bilateral ankle swelling no worse than usual right now ; Denies chest pain, orthopnea or palpitations Respiratory/Chest Respiratory/Chest: Reports cough, dyspnea on exertion and sputum; Denies dyspnea or orthopnea Gastrointestinal Gastrointestinal: Denies abdominal pain, diarrhea, nausea or vomiting Genitourinary Genitourinary ED: Denies dysuria or hematuria Musculoskeletal Musculoskeletal: Denies back pain or neck pain Integumentary Denies abscess or rash Neurologic Neurologic: Denies headache(s), paresthesias or weakness Psychiatric Psychiatric: Denies anxiety or suicidal thoughts [facility] Medical History Acute febrile illness Anemia Angina pectoris Anginal equivalent Aortic insufficiency Atherosclerotic heart disease of [place] coronary artery without angina pectoris BiPAP (biphasic positive airway pressure) dependence CAD (coronary artery disease) Cardiology follow-up encounter Carotid artery disease Chest pain Chronic cough Chronic hypoxemic respiratory failure COVID-19 Elevated troponin Essential hypertension Hemolytic anemia High cholesterol History of echocardiogram History of stress test Hyperlipidemia Hypertension Hypothyroidism Loss of appetite Mediastinal lymphadenopathy Non-smoker Non-ST elevation (NSTEMI) myocardial infarction Nonrheumatic aortic (valve) insufficiency Nonrheumatic aortic (valve) stenosis Nonrheumatic mitral (valve) insufficiency On home oxygen therapy ABDIAS (obstructive sleep apnea) Shortness of breath on exertion Thyroid disease Valvular heart disease Wears dentures Wears glasses Home Medications omega-3 fatty acids-fish oil 340 mg-1,000 mg capsule 1 cap PO DAILY SUPPLEMENT 11/12/18 [History Last Taken 02/21/21] levothyroxine 100 mcg tablet 100 mcg PO DAILY thyroid 04/18/20 [History Last Taken 06/25/21 06:00] multivitamin 1 tab PO DAILY vitamin 02/22/21 [History Last Taken 02/21/21] aspirin 81 mg tablet,delayed release 81 mg PO DAILY@0800 [facility] #0 tabs 02/27/21 [Rx Last Taken 06/25/21 08:00] nitroglycerin 0.4 mg sublingual tablet 0.4 mg sublingual Q5-15M PRN chest pain 10 days #25 tabs 03/01/21 [Rx Last Taken Unknown] calcium citrate 200 mg (950 mg) tablet See Rx Instructions .Route .COMPLEX SUPPLEMENT 05/30/21 [History Last Taken 06/25/21 17:00] magnesium 250 mg tablet 250 mg PO DAILY Check with primary doctor 05/30/21 [History Last Taken Unknown] vitamin E (dl, acetate) 180 mg (400 unit) capsule 180 mg PO DAILY Check with primary doctor 05/30/21 [History Last Taken 06/25/21 08:00] atorvastatin 40 mg tablet 40 mg PO DAILY cholesterol #90 tabs 08/03/21 [Rx Last Taken Unknown] ascorbic acid (vitamin C) 500 mg capsule 500 mg PO BID supplement 08/29/21 [History Last Taken Unknown] coenzyme Q10 100 mg capsule 200 mg PO DAILY coenzyme 08/29/21 [History Last Taken Unknown] folic acid 1 mg tablet 1 mg PO DAILY 08/29/21 [History Last Taken Unknown] methotrexate sodium 2.5 mg tablet 15 mg PO QWEEK 08/29/21 [History Last Taken Unknown] isosorbide mononitrate 30 mg tablet,extended release 24 hr 30 mg PO BID Check with primary doctor #180 tabs 01/28/22 [Rx Last Taken Unknown] clopidogrel 75 mg tablet See Rx Instructions .Route .COMPLEX #90 TABLETS 05/07/22 [Rx Last Taken Unknown] furosemide 40 mg tablet See Rx Instructions .Route .COMPLEX #90 TABLETS 05/07/22 [Rx Last Taken Unknown] cholecalciferol (vitamin D3) 25 mcg (1,000 unit) tablet 50 mcg PO DAILY Check with primary doctor 06/27/22 [History Last Taken Unknown] prednisone 2.5 mg tablet 2.5 mg PO DAILY 06/27/22 [History Last Taken Unknown] amlodipine 10 mg tablet 10 mg PO DAILY #90 tabs 07/08/22 [Rx Last Taken Unknown] metoprolol succinate 100 mg tablet,extended release 24 hr 100 mg PO BID #180 tabs 07/09/22 [Rx Last Taken Unknown] losartan 50 mg tablet 50 mg PO BID Check with primary doctor #180 tabs 07/16/22 [Rx Last Taken Unknown] albuterol sulfate 90 mcg/actuation aerosol inhaler (Ventolin HFA) 1 - 2 puff inhalation Q4H PRN PRN Wheezing ##1 07/29/22 [Rx Last Taken Unknown] Allergy/AdvReac Type Severity Reaction Status Date / Time Iodinated Contrast Media Allergy Intermediate Rash Verified 07/29/22 07:12 [Iodinated Contrast- Oral and IV Dye] ramipril [From Altace] AdvReac Severe cough Verified 07/29/22 07:12 ticagrelor [From Brilinta] AdvReac Dyspnea Verified 07/29/22 07:12 Family History Mother , Age 63 Myocardial infarction Father , Age 28 Colon cancer Other Heart disease Surgical History History of axillary surgery History of cardiac catheterization History of cholecystectomy History of percutaneous transluminal coronary angioplasty (04/16/19) Hx of colonoscopy Presence of stent in coronary artery (04/09/21) Social History Smoking Status: Never smoker second hand exposure: No alcohol intake: never substance use type: does not use caffeine: Yes Type: coffee Number of servings: 1 what type of physical activity do you participate in: none frequency: does not exercise EXAM Physical Exam Const Vital Signs: 07/29/22 07:14 Temperature 97.4 F L Temperature Source Temporal Pulse Rate 60 Respiratory Rate 17 Blood Pressure 154/93 H Blood Pressure Mean 113 Pulse Ox 97 Oxygen Delivery Method Room Air Positive well nourished, well developed and obese General Appearance ED: well developed and NAD Nutritional Appearance: obese HEENT Reports moist mucous membranes normocephalic and atraumatic Eyes PERRL and EOMs intact bilaterally Neck full ROM, supple, no meningeal signs and no JVD Resp normal respiratory effort and clear to auscultation bilaterally Effort and Inspection: able to speak in complete sentences Cardio regular rate and regular rhythm Cardio Narrative: Harsh crescendo-decrescendo 3/6 systolic murmur LLSB GI non-tender and non-distended Auscultation: normoactive bowel sounds Palpation: soft Back/Spine no CVA tenderness General Back: other FROM Extremity normal to inspection General Extremety ED: Yes edema; Negative for pulses abnormal or tenderness General Extremity: edema bilateral lower extremity Details: mild; Negative for pulses abnormal Neuro oriented x3, CN's II-XII intact bilaterally and no sensory deficits noted Sensorium / Orientation: awake and alert Motor Exam: strength 5/5 throughout Psych mental status grossly normal Skin no rashes or lesions noted and no wounds MDM MDM MDM Narrative Medical decision making narrative: COVID and flu testing is negative, although possibly could be false negative since she has been symptomatic for a week. It would not change the treatment of the course at this time, however. Chest x-ray 2 views of my interpretation negative for any acute, chronic changes appear similar to her prior chest x-ray. Radiology is in agreement with all of this, calling it scarring. During my evaluation, she did not cough once. I do not think she needs a breathing treatment right now, therefore. I will prescribe her an albuterol inhaler and recommend she follow-up, she and her state that basically they were afraid of her having pneumonia, and although her lungs are clear and her pulse ox is normal, she does have chronic dyspnea with exertion and she states that she was diagnosed with sarcoidosis although its not in her medical history in the EMR, hence obtaining a chest x-ray which I thought was not unreasonable. She is reassured at this time and advised to follow-up. Radiography Diagnostic Testing: Clinical Impression(s) from Imaging Studies Chest X-Ray 07/29/22 07:50 IMPRESSION: Hyperinflation. Mild degree of increased interstitial markings at the lung bases suggestive of scarring. Electronically Signed: Cristiano Stout MD at 8:21 EST , Discharge Plan Triage Chief Complaint: Cough ED Provider: Miguel Mcelroy Dx/Rx/DC Orders Clinical Impression: Upper respiratory tract infection Instructions: ED URI, Viral, No Abx (Adult) Prescriptions: New albuterol sulfate [Ventolin HFA] 90 mcg/actuation HFA aerosol inhaler 1 - 2 puff inhalation Q4H PRN PRN (Reason: Wheezing) Qty: 1 0RF No Action vitamin E (dl, acetate) 180 mg (400 unit) capsule 180 mg PO DAILY magnesium 250 mg tablet 250 mg PO DAILY cholecalciferol (vitamin D3) 25 mcg (1,000 unit) tablet 50 mcg PO DAILY methotrexate sodium 2.5 mg tablet 15 mg PO QWEEK Label Comments: take 6 tablets by mouth every week folic acid 1 mg tablet 1 mg PO DAILY Label Comments: take 1 tablet by mouth once daily prednisone 2.5 mg tablet 2.5 mg PO DAILY ascorbic acid (vitamin C) 500 mg capsule 500 mg PO BID coenzyme Q10 100 mg capsule 200 mg PO DAILY omega-3 fatty acids-fish oil 1 EACH capsule 1 cap PO DAILY calcium citrate 200 mg (950 mg) tablet See Rx Instructions .ROUTE .COMPLEX Rx Instructions: 400mg at noon and 200mg at dinner levothyroxine 100 MCG tablet 100 mcg PO DAILY multivitamin Tablet 1 tab PO DAILY aspirin 81 MG tablet 81 mg PO DAILY@0800 Qty: 0 0RF nitroglycerin 0.4 mg tablet, sublingual 0.4 mg SUBLINGUAL Q5-15M PRN (Reason: chest pain) 10 Days Qty: 25 3RF atorvastatin 40 mg tablet 40 mg PO DAILY Qty: 90 3RF isosorbide mononitrate 30 mg tablet extended release 24 hr 30 mg PO BID Qty: 180 3RF furosemide 40 mg tablet See Rx Instructions .ROUTE .COMPLEX Qty: 90 3RF Dose Instruction: take 1 tablet by mouth once daily Rx Instructions: take 1 tablet by mouth once daily clopidogrel 75 mg tablet See Rx Instructions .ROUTE .COMPLEX Qty: 90 3RF Dose Instruction: take 1 tablet by mouth once daily Rx Instructions: take 1 tablet by mouth once daily amlodipine 10 mg tablet 10 mg PO DAILY Qty: 90 3RF metoprolol succinate 100 mg tablet extended release 24 hr 100 mg PO BID Qty: 180 3RF losartan 50 mg tablet 50 mg PO BID Qty: 180 3RF Rx Instructions: Hold for SBP less than 130 mmHg Primary Care Provider: Care Physician,No Primary Referrals: Doctor,Your [Non-Staff] - 1 Week if not improving Disposition Disposition: Home, Self Care
--- NOTE | 2022-07-29 07:50 | RAD_ITS ---
STUDY: X-RAY CHEST REASON FOR EXAM: Female, 86 years old. 2 week history of cough, sarcoidosis TECHNIQUE: PA and lateral views of the chest. COMPARISON: Comparison is made with prior study dated 06/19/2021. FINDINGS: Hyperinflation. Mild increased interstitial markings at the lung bases. No focal infiltrate is seen. There is no demonstrated pleural abnormality. There is evidence of coronary artery stenting. Normal mediastinum and to. Normal visualized pulmonary arteries. There is atherosclerotic calcification of the aortic arch with tortuosity. There is demineralization of the osseous structures. Normal visualized ribs, clavicles, and shoulders. There is no demonstrated abnormality of the visualized soft tissue structures of the upper abdomen. RAD/Chest PA and Lateral IMPRESSION: Hyperinflation. Mild degree of increased interstitial markings at the lung bases suggestive of scarring. Electronically Signed: Cristiano Stout MD at 8:21 EST ,
== END 2022-07-29 09:29 | disposition home or self-care (01) ==
PROVIDERS: Emergency Provider Emergency Medicine; Visit Provider Emergency Medicine
DX: J06.9 Acute upper respiratory infection, unspecified (principal); I25.10 Atherosclerotic heart disease of native coronary artery without angina pectoris; I25.2 Old myocardial infarction; G47.33 Obstructive sleep apnea (adult) (pediatric); E66.9 Obesity, unspecified; Z86.16 Personal history of COVID-19; Z95.5 Presence of coronary angioplasty implant and graft
CPT/HCPCS: 71046; 87428; 99282

== ENCOUNTER → 2022-10-11 | Outpatient (CLI) | payer MEDICARE, OTHER, SELFPAY ==
[2021-07-19 10:46] VITALS: BMI 32.3
[2022-10-11 10:55] LABS: Bacteria 0 SEEN /hpf (None Seen); Mucous, Urine 0 SEEN /hpf (<or=2+); Red Blood Cells-Urine 0 SEEN /hpf (0-5); Squamous Epithelial Cells - UA 0 SEEN /hpf (5-10); White Blood Cells 0 SEEN /hpf (0-5)
[2022-10-11 12:18] LABS: Absolute Lymphocyte Count 1.17 X10^3/uL (0.83-4.51); Absolute Neutrophil Count 5.5 X10^3/uL (2.0-7.7); Basophil# 0.08 X10^3/uL; Eosinophils% 6.2 % (0-5); Hematocrit 36.1 % (37-47); Hemoglobin 11.8 g/dL (12.0-15.0); Lymphocyte # 1.17 X10^3/ul (0.83-4.51); Lymphocyte % 14.4 % (19-41); Mean Corp Hgb Conc 32.7 g/dL (32-36); Mean Corpuscular Hgb 31.3 pg (27.0-32.0); Mean Corpuscular Volume 95.8 fL (81-99); Mean Platelet Vol. 10.2 fl (6.2-12.0); Monocyte# 0.85 X10^3/uL; Monocyte% 10.5 % (0-10); NRBC Flagged by Analyzer 0 % (0-5); Neutrophil # 5.48 X10^3/uL (2.7-7.7); Neutrophil % 67.3 % (47-70); Platelet Count 256 K/mm3 (150-450); RBC Distribution Width CV 15.9 % (11.6-14.6); RBC Distribution Width SD 54.7 fl (35.1-43.9); Red Blood Count 3.77 M/mm3 (4.2-5.4); White Blood Count 8.1 K/mm3 (4.4-11.0)
[2022-10-11 12:51] LABS: Vitamin D,25 Hydroxy 77.8 ng/mL
[2022-10-11 13:07] LABS: AST(SGOT) 26 U/L (15-37); Alanine Aminotransfer ALT/SGPT 29 U/L (13-56); Albumin, Serum 3.9 g/dL (3.2-5.0); Alkaline Phosphatase 73 U/L (45-117); Anion Gap 4 (5-15); BUN 22 mg/dL (7-18); Calcium,Total 9.7 mg/dL (8.5-10.1); Chloride 105 mmol/L (98-107); Cholesterol 96 mg/dL (200); Creatinine, Serum 0.96 mg/dL (0.55-1.02); EST Glomerular Filtration Rate 59 mL/min (>60); Est Glom Filt Rate - Afr Amer 71 mL/min (>60); Globulin 3.8 g/dL (2.2-4.2); Glucose 105 mg/dL (74-106); High Density Lipoprotein 31 mg/dL; Magnesium 2.2 mg/dL (1.6-2.6); Potassium 4.5 mmol/L (3.5-5.1); Protein, Total 7.7 g/dL (6.4-8.2); Sodium Level 137 mmol/L (136-145); Thyroid Stim Hormone (TSH) 0.49 uIU/mL (0.358-3.74); Triglycerides 203 mg/dL; Very Low Density Lipoprotein 41 mg/dL (5-40)
[2022-10-11 14:01] LABS: Erythrocyte Sedimentation Rate 34 mm/hr (0-30)
[2022-10-11 15:53] LABS: Color, Urine Yellow (Yellow); Glucose, Dipstick Normal (Normal); Ketone-Dipstick Negative (Negative); Leukocyte Esterase-Dipstick Negative /ul (Negative); Nitrite-Dipstick Negative (Negative); Occult Blood-Urine Negative /ul (Negative); Protein-Dipstick 100 mg/dl (Negative); Specific Gravity, Urine 1.015 (1.002-1.030); Urine Bilirubin Dipstick Negative (Negative); Urine Clarity Clear (Clear); Urine Urobilinogen Normal (Normal); Urine pH 6.5 (5.0 - 8.0)
== END | disposition home or self-care (01) ==
LOC: MFPLAB 10:47
PROVIDERS: PCP Family Medicine; Visit Provider Family Medicine
DX: E03.9 Hypothyroidism, unspecified (principal); E55.9 Vitamin D deficiency, unspecified; E78.5 Hyperlipidemia, unspecified
CPT/HCPCS: 36415; 80053; 80061; 81001; 82306; 83735; 84439; 84443; 85025; 85652

== ENCOUNTER → 2022-10-22 | Outpatient (CLI) | payer MEDICARE, OTHER, SELFPAY ==
[2021-07-19 10:46] VITALS: BMI 32.3
--- NOTE | 2022-10-22 11:51 | RAD_ITS ---
STUDY: X-RAY CHEST REASON FOR EXAM: Female, 86 years old. Fever and cough TECHNIQUE: PA and lateral views of the chest. COMPARISON: 07/29/2022 FINDINGS: Lungs are hyperexpanded with chronic interstitial changes, no superimposed acute pulmonary process. There is no demonstrated pleural abnormality. Normal size heart. Normal mediastinum and to. Normal visualized pulmonary arteries. There is atherosclerotic calcification of the aortic arch with tortuosity. There are diffuse degenerative changes of the visualized thoracic spine. There is degenerative osteoarthritis of the bilateral shoulders. There is no demonstrated abnormality of the visualized soft tissue structures of the upper abdomen. RAD/Chest PA and Lateral IMPRESSION: Hyperexpanded lungs with chronic interstitial changes, no superimposed acute pulmonary process Electronically Signed: Jimi Kelly MD at 11:03 EDT ,
== END | disposition home or self-care (01) ==
LOC: MTRAD 11:50
PROVIDERS: PCP Family Medicine; Referring Provider Family Medicine; Visit Provider Family Medicine
DX: R05.9 Cough, unspecified (principal)
CPT/HCPCS: 71046

== ENCOUNTER → 2022-11-21 | Outpatient (CLI) | payer MEDICARE, OTHER, SELFPAY ==
[2021-07-19 10:46] VITALS: BMI 32.3
[2022-11-21 15:49] LABS: Hemoglobin A1c 5.8 % (3.8-5.6)
[2022-11-21 16:00] LABS: AST(SGOT) 16 U/L (15-37); Alanine Aminotransfer ALT/SGPT 23 U/L (13-56); Albumin, Serum 3.9 g/dL (3.2-5.0); Alkaline Phosphatase 68 U/L (45-117); Anion Gap 8 (5-15); BUN 23 mg/dL (7-18); BUN/Creat Ratio 20.9 RATIO (10-20); Calcium,Total 9.9 mg/dL (8.5-10.1); Chloride 103 mmol/L (98-107); EST Glomerular Filtration Rate 50 mL/min (>60); Est Glom Filt Rate - Afr Amer 61 mL/min (>60); Globulin 3.9 g/dL (2.2-4.2); Glucose 96 mg/dL (74-106); Potassium 3.9 mmol/L (3.5-5.1); Protein, Total 7.8 g/dL (6.4-8.2); Sodium Level 138 mmol/L (136-145)
== END | disposition home or self-care (01) ==
LOC: MFPLAB 11:56
PROVIDERS: PCP Family Medicine; Referring Provider Family Medicine; Visit Provider Family Medicine
DX: R94.4 Abnormal results of kidney function studies (principal); R73.02 Impaired glucose tolerance (oral)
CPT/HCPCS: 36415; 80053; 83036

== ENCOUNTER → 2023-03-25 | Outpatient (CLI) | payer MEDICARE, OTHER, SELFPAY ==
[2021-07-19 10:46] VITALS: BMI 32.3
[2023-03-25 12:27] LABS: Mucous, Urine 0 SEEN /hpf (<or=2+); Red Blood Cells-Urine 0 SEEN /hpf (0-5); Squamous Epithelial Cells - UA 0 SEEN /hpf (5-10)
[2023-03-25 15:34] LABS: Absolute Lymphocyte Count 1.31 X10^3/uL (0.83-4.51); Absolute Neutrophil Count 5.5 X10^3/uL (2.0-7.7); Basophil# 0.06 X10^3/uL; Basophil% 0.8 % (0-1); Eosinophil# 0.31 X10^3/uL; Eosinophils% 3.9 % (0-5); Hematocrit 34.6 % (37-47); Hemoglobin 10.9 g/dL (12.0-15.0); Lymphocyte # 1.31 X10^3/ul (0.83-4.51); Lymphocyte % 16.7 % (19-41); Mean Corp Hgb Conc 31.5 g/dL (32-36); Mean Corpuscular Hgb 30.4 pg (27.0-32.0); Mean Corpuscular Volume 96.6 fL (81-99); Mean Platelet Vol. 10.3 fl (6.2-12.0); Monocyte# 0.64 X10^3/uL; Monocyte% 8.2 % (0-10); NRBC Flagged by Analyzer 0 % (0-5); Platelet Count 250 K/mm3 (150-450); RBC Distribution Width CV 16.2 % (11.6-14.6); RBC Distribution Width SD 57.1 fl (35.1-43.9); Red Blood Count 3.58 M/mm3 (4.2-5.4); White Blood Count 7.9 K/mm3 (4.4-11.0)
[2023-03-25 15:38] LABS: Color, Urine Yellow (Yellow); Glucose, Dipstick Normal (Normal); Ketone-Dipstick Negative (Negative); Leukocyte Esterase-Dipstick 25 /ul (Negative); Nitrite-Dipstick Positive (Negative); Occult Blood-Urine Negative /ul (Negative); Protein-Dipstick 100 mg/dl (Negative); Specific Gravity, Urine 1.015 (1.002-1.030); Urine Bilirubin Dipstick Negative (Negative); Urine Clarity Sl. Cloudy (Clear); Urine Urobilinogen Normal (Normal)
[2023-03-25 16:09] LABS: Bacteria 4+ /hpf (None Seen); Hemoglobin A1c 5.5 % (3.8-5.6); Protein, Urine (Random) 65.8 mg/dL (<11.9); Protein:Creat Ratio 770 mg/g CRE (0-200); Vitamin D,25 Hydroxy 54.5 ng/mL; White Blood Cells 0-5 SEEN /hpf (0-5)
[2023-03-25 16:29] LABS: AST(SGOT) 20 U/L (15-37); Alanine Aminotransfer ALT/SGPT 26 U/L (13-56); Albumin, Serum 3.7 g/dL (3.2-5.0); Alkaline Phosphatase 66 U/L (45-117); Anion Gap 5 (5-15); BUN 25 mg/dL (7-18); Calcium,Total 9.3 mg/dL (8.5-10.1); Chloride 107 mmol/L (98-107); Cholesterol 84 mg/dL (200); Creatinine, Serum 1.04 mg/dL (0.55-1.02); EST Glomerular Filtration Rate 54 mL/min (>60); Est Glom Filt Rate - Afr Amer 65 mL/min (>60); Globulin 3.8 g/dL (2.2-4.2); Glucose 132 mg/dL (74-106); High Density Lipoprotein 34 mg/dL; Protein, Total 7.5 g/dL (6.4-8.2); Sodium Level 141 mmol/L (136-145); T4 Free Direct 1.29 ng/dL (0.76-1.46); Thyroid Stim Hormone (TSH) 0.51 uIU/mL (0.358-3.74); Triglycerides 150 mg/dL; Very Low Density Lipoprotein 30 mg/dL (5-40)
[2023-03-26 08:19] LABS: PTHIN 26.2 pg/mL (18.4-80.1)
== END | disposition home or self-care (01) ==
LOC: MFPLAB 12:21
PROVIDERS: PCP Family Medicine; Visit Provider Family Medicine
DX: E03.9 Hypothyroidism, unspecified (principal); N18.30 Chronic kidney disease, stage 3 unspecified; E55.9 Vitamin D deficiency, unspecified; E78.5 Hyperlipidemia, unspecified; R73.02 Impaired glucose tolerance (oral)
CPT/HCPCS: 36415; 80053; 80061; 81001; 82306; 82570; 83036; 83970; 84100; 84156; 84439; 84443; 85025

== ENCOUNTER 2023-06-15 04:22 | Emergency (ER) | payer MEDICARE, OTHER, SELFPAY ==
[2021-07-19 10:46] VITALS: BMI 32.3
[2023-06-15 04:24] VITALS: BP 160/55; PULSE 66; RESP 20; TEMP 37.2; O2SAT 94; BMI 28.0
--- NOTE | 2023-06-15 04:36 | EX.ED.DYSGE1 ---
HPI History of Present Illness Chief Complaint: General Illness [facility] Medical History (Updated 06/15/23 @ 07:[address] Fredi Whitten, DO) Acute febrile illness Anemia Angina pectoris Anginal equivalent Aortic insufficiency Atherosclerotic heart disease of [place] coronary artery without angina pectoris BiPAP (biphasic positive airway pressure) dependence CAD (coronary artery disease) Cardiology follow-up encounter Carotid artery disease Chest pain Chronic cough Chronic hypoxemic respiratory failure COVID-19 Elevated troponin Essential hypertension Hemolytic anemia High cholesterol History of echocardiogram History of stress test Hyperlipidemia Hypertension Hypothyroidism Loss of appetite Mediastinal lymphadenopathy Non-smoker Non-ST elevation (NSTEMI) myocardial infarction Nonrheumatic aortic (valve) insufficiency Nonrheumatic aortic (valve) stenosis Nonrheumatic mitral (valve) insufficiency On home oxygen therapy ABDIAS (obstructive sleep apnea) Sarcoidosis Shortness of breath on exertion Thyroid disease Valvular heart disease Wears dentures Wears glasses Home Medications omega-3 fatty acids-fish oil 340 mg-1,000 mg capsule 1 cap PO DAILY SUPPLEMENT 11/12/18 [History Last Taken 02/21/21] levothyroxine 100 mcg tablet 100 mcg PO DAILY thyroid 04/18/20 [History Last Taken 06/25/21 06:00] multivitamin 1 tab PO DAILY vitamin 02/22/21 [History Last Taken 02/21/21] aspirin 81 mg tablet,delayed release 81 mg PO DAILY@0800 [facility] #0 tabs 02/27/21 [Rx Last Taken 06/25/21 08:00] nitroglycerin 0.4 mg sublingual tablet 0.4 mg sublingual Q5-15M PRN chest pain 10 days #25 tabs 03/01/21 [Rx Last Taken Unknown] magnesium 250 mg tablet 250 mg PO DAILY Check with primary doctor 05/30/21 [History Last Taken Unknown] vitamin E (dl, acetate) 180 mg (400 unit) capsule 180 mg PO DAILY Check with primary doctor 05/30/21 [History Last Taken 06/25/21 08:00] ascorbic acid (vitamin C) 500 mg capsule 500 mg PO BID supplement 08/29/21 [History Last Taken Unknown] coenzyme Q10 100 mg capsule 200 mg PO DAILY coenzyme 08/29/21 [History Last Taken Unknown] folic acid 1 mg tablet 1 mg PO DAILY 08/29/21 [History Last Taken Unknown] methotrexate sodium 2.5 mg tablet 15 mg PO QWEEK 08/29/21 [History Last Taken Unknown] amlodipine 10 mg tablet 10 mg PO DAILY #90 tabs 07/08/22 [Rx Last Taken Unknown] metoprolol succinate 100 mg tablet,extended release 24 hr 100 mg PO BID #180 tabs 07/09/22 [Rx Last Taken Unknown] losartan 50 mg tablet 50 mg PO BID Check with primary doctor #180 tabs 07/16/22 [Rx Last Taken Unknown] furosemide 40 mg tablet See Rx Instructions .Route .COMPLEX PRN swelling 12/30/22 [History Last Taken Unknown] isosorbide mononitrate 30 mg tablet,extended release 24 hr 30 mg PO BID Check with primary doctor #180 tabs 01/28/23 [Rx Last Taken Unknown] atorvastatin 40 mg tablet 80 mg (2 x 40 mg) PO DAILY cholesterol #90 tabs 04/04/23 [Rx Last Taken Unknown] clopidogrel 75 mg tablet See Rx Instructions .Route .COMPLEX #90 TABLETS 05/12/23 [Rx Last Taken Unknown] amoxicillin 875 mg-potassium clavulanate 125 mg tablet 1 tab PO BID #14 tabs 06/15/23 [Rx Last Taken Unknown] Allergy/AdvReac Type Severity Reaction Status Date / Time Iodinated Contrast Media Allergy Intermediate Rash Verified 06/15/23 05:37 [Iodinated Contrast- Oral and IV Dye] ramipril [From Altace] AdvReac Severe cough Verified 06/15/23 05:37 ticagrelor [From Brilinta] AdvReac Dyspnea Verified 06/15/23 05:37 Family History Mother , Age 63 Myocardial infarction Father , Age 28 Colon cancer Other Heart disease Surgical History History of axillary surgery History of cardiac catheterization History of cholecystectomy History of percutaneous transluminal coronary angioplasty (04/16/19) Hx of colonoscopy Presence of stent in coronary artery (04/09/21) Social History Smoking Status: Never smoker second hand exposure: No alcohol intake: never substance use type: does not use caffeine: Yes Type: coffee Number of servings: 1 what type of physical activity do you participate in: none frequency: does not exercise EXAM Physical Exam Const Vital Signs: 06/15/23 04:24 06/15/23 04:29 06/15/23 05:41 Temperature 99.0 F Temperature Source Oral Pulse Rate 66 Respiratory Rate 20 H Respiratory Effort Normal Non-Labored Blood Pressure 160/55 H Blood Pressure Mean 90 Pulse Ox 94 92 Oxygen Delivery Method Room Air Room Air 06/15/23 07:20 Temperature Temperature Source Pulse Rate Respiratory Rate Respiratory Effort Blood Pressure 164/54 H Blood Pressure Mean 90 Pulse Ox Oxygen Delivery Method [facility] Narrative Medical decision making narrative: HISTORY OF PRESENT ILLNESS: 87-year-old female presents with generalized weakness. Notes associated cough. States she has some chest congestion. Denies sick contacts. Denies chest pain denies shortness of breath. Denies fevers but does note being chilled. REVIEW OF SYSTEMS: Pertinent positives: Generalized weakness, cough Pertinent negatives: Chest pain, syncope, shortness of breath PHYSICAL EXAM: Nursing triage notes reviewed, Vital signs reviewed Constitutional: please see mdm HENT: MMM Eyes: Pupils equal round and reactive to light, Extraocular muscles intact, bilateral conjunctival injection, some conjunctival discharge noted Neck: No stridor, no JVD, full neck ROM Lungs: Clear to auscultation, No wheezing or rales. No increased work of breathing, no conversational dyspnea, no accessory muscle use, no nasal flaring. No respiratory distress noted Heart: Regular rate and rhythm, No murmurs, No rubs and No gallops, 2+ distal pulses (radial, femoral, posterior tibial) in all extremities Abdomen: Soft, there is no tenderness, rigidity, rebound or guarding, no obvious peritoneal signs, no palpable pulsatile abdominal masses, no auscultated abdominal bruit : No CVAT Extremities: No edema Neuro: No focal neurological deficits, cranial nerves II through XII intact, 5/5 strength in all extremities. Intact sensation to light touch in all extremities, 2+ reflexes bilateral patella tendons. Normal gait. No ataxia. Skin: No rash or lesions noted MEDICAL DECISION MAKING: Chief Complaint: Weakness, cough External records reviewed: No recent ED visits Factors affecting care: Aortic valve stenosis, hyperlipidemia, hypertension, CAD MDM Narrative: Patient was initially hemodynamically stable, afebrile, nontoxic-appearing. No increased work of breathing. I considered the following differential diagnosis: COVID, flu, RSV, pneumonia ALL IMAGES (IF OBTAINED) HAVE BEEN PERSONALLY REVIEWED AND INTERPRETED BY MYSELF. EKG with normal sinus rhythm, normal axis, normal's, no STEMI I have personally reviewed the patient's chest x-ray. Chest x-ray is shows evidence of right lower lobe infiltrate radiologist agrees my interpretation CBC with leukocytosis, mild anemia, no thrombocytopenia BMP without evidence of significant electrolyte abnormalities, no anion gap, no acute kidney injury. High-sensitivity troponin is negative, no evidence of myocardial ischemia The synthesis of the patient's history, physical exam, labs images suggest community-acquired pneumonia. Will give Augmentin here and for home-going. Patient ambulated here without significant hypoxia. He is appropriate for discharge home. Strict return precautions were discussed. The patient and/or family, caregivers express understanding. The patient and/or family, caregivers agrees with the plan. Shared decision making: I will have a discussion with the patient and or visitors regarding risk/benefits of further testing or admission. They will be made aware of of the risk/benefits inherent in this decision they will be given the opportunity to voice understanding. Total critical care time today provided was at least 0 minutes. This excludes separately billable procedures. Critical care time (if documented) is secondary to the patient having high probability of clinically significant/life threatening deterioration in the patient's condition which required my urgent intervention. Impression: 1. Community acquired 2. Leukocytosis 3. Anemia Dispo: discharge Lab Data Attestation: I reviewed the patient's lab results. Labs: Laboratory Results - last 24 hr 06/15/23 05:35 WBC 17.1 H RBC 3.92 L Hgb 11.7 L Hct 36.4 L MCV 92.9 MCH 29.8 MCHC 32.1 RDW Std Deviation 58.7 H RDW Coeff of Martha 17.5 H Plt Count 257 MPV 9.8 Immature Gran % (Auto) 0.600 Neut % (Auto) 81.9 H Lymph % (Auto) 7.6 L Posey % (Auto) 8.9 Eos % (Auto) 0.7 Baso % (Auto) 0.3 Absolute Neuts (auto) 14.0 H Absolute Lymphs (auto) 1.30 Nucleated RBC % 0 Differential Comment SCANNED Diff Path Review May foll Sodium 137 Potassium 3.8 Chloride 103 Carbon Dioxide 28.0 Anion Gap 6 BUN 21 H Creatinine 1.01 Estim Creat Clear Calc 32.21 Est GFR (MDRD) Af Amer 67 Est GFR (MDRD) Non-Af 55 L BUN/Creatinine Ratio 20.8 H Glucose 125 H Calcium 8.6 Troponin I High Sens 37 Radiography Chest X-Ray - ED: Read by ED Physician Diagnostic Testing: Clinical Impression(s) from Imaging Studies Chest X-Ray 06/15/23 04:55 IMPRESSION: Patchy airspace opacity in the right lower lobe which is likely infectious in etiology. Electronically Signed: Ashwin Almaraz MD at 6:30 EST , Discharge Plan Triage Chief Complaint: General Illness ED Provider: Fredi Whitten Dx/Rx/DC Orders Clinical Impression: Leukocytosis, Community acquired bacterial pneumonia Instructions: Treating Pneumonia Prescriptions: New amoxicillin-pot clavulanate 875-125 mg tablet 1 tab PO BID Qty: 14 0RF No Action vitamin E (dl, acetate) 180 mg (400 unit) capsule 180 mg PO DAILY magnesium 250 mg tablet 250 mg PO DAILY methotrexate sodium 2.5 mg tablet 15 mg PO QWEEK Patient Comments: take 6 tablets by mouth every week folic acid 1 mg tablet 1 mg PO DAILY Patient Comments: take 1 tablet by mouth once daily furosemide 40 mg tablet See Rx Instructions .ROUTE .COMPLEX PRN (Reason: swelling) Dose Instruction: take 1 tablet by mouth once daily Rx Instructions: take 1 tablet by mouth once daily PRN; ascorbic acid (vitamin C) 500 mg capsule 500 mg PO BID coenzyme Q10 100 mg capsule 200 mg PO DAILY omega-3 fatty acids-fish oil 1 EACH capsule 1 cap PO DAILY levothyroxine 100 MCG tablet 100 mcg PO DAILY multivitamin Tablet 1 tab PO DAILY aspirin 81 MG tablet 81 mg PO DAILY@0800 Qty: 0 0RF nitroglycerin 0.4 mg tablet, sublingual 0.4 mg SUBLINGUAL Q5-15M PRN (Reason: chest pain) 10 Days Qty: 25 3RF amlodipine 10 mg tablet 10 mg PO DAILY Qty: 90 3RF metoprolol succinate 100 mg tablet extended release 24 hr 100 mg PO BID Qty: 180 3RF losartan 50 mg tablet 50 mg PO BID Qty: 180 3RF Rx Instructions: Hold for SBP less than 130 mmHg isosorbide mononitrate 30 mg tablet extended release 24 hr 30 mg PO BID Qty: 180 3RF atorvastatin 40 mg tablet 80 mg PO DAILY Qty: 90 3RF clopidogrel 75 mg tablet See Rx Instructions .ROUTE .COMPLEX Qty: 90 3RF Dose Instruction: take 1 tablet by mouth once daily Rx Instructions: take 1 tablet by mouth once daily Primary Care Provider: Bryant Baron Referrals: Bryant Baron MD [Primary Care Provider] - Activity Restrictions/Additional Instructions: Thank you for trusting us with your care today! Please take Tylenol (2 pills, 650 mg), ibuprofen (2 pills, 400 mg) every 6 hours as needed for pain and fever control. Please take antibiotics as prescribed. Please return to the emergency department if your symptoms change or worsen. Specifically develop worsening shortness of breath. Please follow with your primary care physician for further outpatient evaluation and management. Disposition Disposition: Home, Self Care
--- NOTE | 2023-06-15 04:55 | RAD_ITS ---
STUDY: X-RAY CHEST REASON FOR EXAM: Female, 87 years old. Cough TECHNIQUE: Frontal view of the chest COMPARISON: 10/22/2022 FINDINGS: There is patchy airspace opacity in the right lower lobe. The lungs are otherwise clear. There are no pleural effusions. There is no pneumothorax. The heart is stable in size. The visualized osseous structures are within normal limits. RAD/Chest 1 View (Portable) IMPRESSION: Patchy airspace opacity in the right lower lobe which is likely infectious in etiology. Electronically Signed: Ashwin Almaraz MD at 6:30 EST ,
--- OUTSIDE RECORDS SUMMARY | 2023-06-15 05:25 | XMS RPT_ITS | CCD ---
Author Name Unknown Address [address] [place] [address] Organization [facility] Care Team Providers Care Director Of Reservations Name Role Phone DeFinis, Harumi Y Unavailable Unavailable DeFinis, Harumi Y Unavailable Unavailable DeFinis, Harumi Y Unavailable Unavailable Nellie RN, Joi Sheikh Unavailable Nellie RN, Joi Sheikh Unavailable [phone] Nellie RN, Joi Sheikh Unavailable [phone] Unavailable Primary Care Provider Unavailabl e Unavailable Primary Care Provider Unavailabl e Unavailable Primary Care Provider Unavailabl e Nathaniel WYNN, Vera Fonseca Unavailable VERA ARMSTRONG Referring Unavailable LESSA SANFORD JONATHON, ANDREI Referring Unava ilable FAITH FORTE, ARACELI Referring Unavailab le FAITH FORTE, ARACELI Referring Unavailab le YOUNGYVETTE Attending Unavailable YVETTE ENCARNACION Referring Unavailable MAO-PALSHOOK, MARLO Referring Unavai lable MAO-PALSHOOK, MARLO Referring Unavai lable MAO-PALSHOOK, MARLO Referring Unavai lable KOPRIVANCHARLIE ABREU Attending Unavailable FAITH FORTE, ARACELI Referring Unavailab le LESSA SANFORD JONATHON, ANDREI Referring Unava ilable LESSA SANFORD JONATHON, ANDREI Referring Unava ilable LESSA SANFORD JONATHON, ANDREI Attending Unava ilable LESSA SANFORD JONATHON, ANDREI Referring Unava ilable LESSA SANFORD JONATHON, ANDREI Referring Unava ilable FAITH FORTE, ARACELI Referring Unavailab le DUNG LENTZ Referring Unavailable FAITH FORTEARACELI Attending Unavailab le FAITH FORTE, ARACELI Referring Unavailab le MAO-PALSHOOK, MARLO Referring Unavai lable MAO-PALSHOOK, MARLO Referring Unavai lable FAITH FORTE, ARACELI Referring Unavailab le MAO-PALSHOOK, MARLO Referring Unavai liz ARMSTRONG, VERA Referring Unavailable Rhoda KEATING Attending Unavailable MAO-JENNIFERHOOK, MARLO Referring Unavai lable FAITH FORTE, ARACELI Referring Unavailab le MAO-PALSHOOK, MARLO Referring Unavai lable MAO-PALSHOOK, MARLO Referring Unavai lable MAO-PALSHOOK, MARLO Referring Unavai lable FAITH STEFANIEE, ARACELI Attending Unavailab rosalio ARMSTRONG, VERA Referring Unavailable NATHANIEL, VERA Attending Unavailable Allergies Allergy Classification Reported Allergen(s) Allergy Type Date of Onset Reaction(s) Facility (6 sources) Contrast media drug allergy 11-15-2010 Rash [facility] Work Phone: (6 sources) ramipril drug allergy 07-10-2015 coughing [facility] Work Phone: (20 sources) Iodine; Translations: [IODINE] Drug Allergy 03-12-2005 [facility] Work Phone: (20 sources) Ramipril; Translations: [RAMIPRIL] Drug Allergy 03-12-2005 Cough [facility] Work Phone: (20 sources) traMADol; Translations: [TRAMADOL] Drug Allergy 01-02-2015 Other: See Comments [facility] Work Phone: (18 sources) Ticagrelor; Translations: [TICAGRELOR] Drug Allergy 04-20-2021 Shortness of Breath [facility] (18 sources) Iodinated Contrast Media; Translations: [IODINATED CONTRAST MEDIA] Drug Allergy 03-08-2019 Rash [facility] Medications Current Medications Medication Drug Class(es) Dates Sig (Normalized) Sig (Original) atorvastatin 80 mg oral tablet (20 sources) HMG-CoA Reductase Inhibitor Start: 03-27-2023 End: 03-26-2024 take 1 tablet by mouth once daily at bedtime atorvastatin (LIPITOR) 80 mg tablet Take 1 tablet by mouth daily at bedtime. 90 tablet 3 03/27/2023 03/26/2024 Active Completed/Discontinued Medications Medication Drug Class(es) Dates Sig (Normalized) Sig (Original) amLODIPine 10 mg oral tablet (17 sources) Dihydropyridine Calcium Channel Tg Start: 07-08-2022 take 1 tablet by mouth once daily amLODIPine (NORVASC) 10 mg tablet Take 10 mg by mouth once daily. 0 07/08/2022 Active Problems Active Problems Problem Classification Problem Date Documented Date Episodic/Chronic Congestive heart failure; nonhypertensive (6 sources) Acute on chronic diastolic heart failure; Translations: [Acute on chronic diastolic (congestive) heart failure] Onset: 03-27-2023 03-27-2023 Chronic Coronary atherosclerosis and other heart disease (20 sources) Atherosclerotic heart disease of [place] coronary artery without angina pectoris; Translations: [Coronary atherosclerosis] Onset: 03-13-2005 02-01-2016 Chronic Coronary atherosclerosis and other heart disease (8 sources) Coronary angioplasty status; Translations: [Stented coronary artery] Onset: 11-15-2010 11-15-2010 Episodic Disorders of lipid metabolism (20 sources) Hyperlipidemia; Translations: [Mixed hyperlipidemia] Onset: 11-15-2010 11-15-2010 Chronic Diverticulosis and diverticulitis (20 sources) Diverticulosis of colon; Translations: [Diverticulosis of large intestine without perforation or abscess without bleeding] 03-12-2005 Chronic Essential hypertension (20 sources) Hypertensive disorder; Translations: [Essential hypertension] Onset: 11-15-2010 11-15-2010 Chronic Heart valve disorders (20 sources) Mitral valve stenosis; Translations: [Non-rheumatic mitral valve stenosis] Onset: 08-31-2012 09-15-2013 Chronic Heart valve disorders (2 sources) Heart murmur; Translations: [Cardiac murmur, unspecified] Onset: 03-25-2023 03-03-2023 Episodic Hemorrhoids (20 sources) Hemorrhoids; Translations: [Unspecified hemorrhoids] 03-12-2005 Episodic Immunity disorders (20 sources) Sarcoidosis; Translations: [Sarcoidosis, unspecified] Onset: 08-12-2022 Chronic Nutritional deficiencies (20 sources) Malnutrition (calorie); Translations: [Moderate protein-calorie malnutrition] Onset: 04-08-2021 04-08-2021 Chronic Other aftercare (5 sources) Patient encounter status; Translations: [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] Onset: 03-27-2023 03-27-2023 Episodic Other aftercare (1 source) Surgical follow-up; Translations: [Encounter for surgical aftercare following surgery on the circulatory system] 04-07-2023 Episodic Other aftercare (1 source) Long-term current use of systemic steroid; Translations: [terminal clerk (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 systemic steroids] 08-12-2022 Episodic Other aftercare (1 source) [facility] (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 insulin; Translations: [Encounter for long-term (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 insulin (HCC)] Onset: 03-27-2023 Episodic Other circulatory disease (7 sources) Disorder of carotid artery; Translations: [Disorder of arteries and arterioles, unspecified] Onset: 07-10-2015 07-10-2015 Chronic Other circulatory disease (1 source) Disorder of arteries and arterioles, unspecified; Translations: [Bilateral carotid artery disease, unspecified type (HCC)] Onset: 03-27-2023 Chronic Other connective tissue disease (1 source) Paraparesis; Translations: [Other symptoms and signs involving the musculoskeletal system] Episodic Other lower respiratory disease (11 sources) Dyspnea; Translations: [Shortness of breath] Onset: 11-15-2010 11-15-2010 Episodic Other lower respiratory disease (1 source) Hypoxia; Translations: [Hypoxemia] Episodic Other lower respiratory disease (4 sources) Multiple nodules of lung; Translations: [Other nonspecific abnormal finding of lung field] Episodic Other lower respiratory disease (2 sources) Multilobar lung infiltrate; Translations: [Other nonspecific abnormal finding of lung field] Episodic Other lower respiratory disease (3 sources) Nodule of lung; Translations: [Solitary pulmonary nodule] 03-03-2023 Episodic Other lower respiratory disease (2 sources) Shortness of breath; Translations: [Shortness of breath] Onset: 01-14-2023 Episodic Other lower respiratory disease (1 source) Dyspnea, unspecified; Translations: [Dyspnea, unspecified type] Onset: 05-19-2023 Episodic Other lower respiratory disease (1 source) Solitary pulmonary nodule; Translations: [Lung nodule] Onset: 03-25-2023 Episodic Other nutritional; endocrine; and metabolic disorders (6 sources) Body mass index (BMI) 30.0-30.9, adult; Translations: [Body mass index (BMI) 30.0-30.9, adult] Onset: 03-17-2013 03-17-2013 Chronic Other nutritional; endocrine; and metabolic disorders (20 sources) Obesity; Translations: [Obesity, unspecified] 03-12-2005 Chronic Respiratory failure; insufficiency; arrest (adult) (6 sources) Chronic hypoxemic respiratory failure; Translations: [Chronic respiratory failure with hypoxia] Onset: 03-27-2023 03-27-2023 Chronic Thyroid disorders (20 sources) Iatrogenic hypothyroidism; Translations: [Hypothyroidism] Onset: 11-15-2010 11-15-2010 Chronic Unclassified (2 sources) Long-term drug therapy; Translations: [Other usp (current) drug therapy] Onset: 11-15-2010 11-15-2010 Past or Other Problems Problem Classification Problem Date Documented Date Episodic/Chronic Cardiac dysrhythmias (20 sources) Palpitations; Translations: [Palpitations] Onset: 11-15-2010 11-15-2010 Episodic Diabetes mellitus without complication (20 sources) Impaired fasting glycemia; Translations: [Impaired fasting glucose] Onset: 03-26-2006 03-26-2006 Episodic Esophageal disorders (20 sources) Esophagitis; Translations: [Esophagitis, unspecified] Onset: 12-03-2005 12-03-2005 Episodic Fever of unknown origin (20 sources) Fever; Translations: [Fever, unspecified] Onset: 03-14-2009 03-14-2009 Episodic Genitourinary symptoms and ill-defined conditions (2 sources) Dysuria; Translations: [Dysuria] Onset: 11-12-2022 Episodic Nonspecific chest pain (20 sources) Chest pain; Translations: [Chest pain, unspecified] Onset: 04-07-2021 04-07-2021 Episodic Other aftercare (5 sources) 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; Translations: [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] Onset: 11-15-2010 11-15-2010 Episodic Other aftercare (1 source) M[facility] (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 systemic steroids; Translations: [terminal clerk current use of systemic steroids] Onset: 08-12-2022 Episodic Other connective tissue disease (1 source) Other symptoms and signs involving the musculoskeletal system; Translations: [Bilateral leg weakness] Onset: 11-12-2022 Episodic Other lower respiratory disease (2 sources) Other nonspecific abnormal finding of lung field; Translations: [Lung nodules] Onset: 11-15-2022 Episodic Other nutritional; endocrine; and metabolic disorders (12 sources) Body mass index (BMI) 29.0-29.9, adult; Translations: [Body mass index (BMI) 29.0-29.9, adult] Onset: 03-17-2013 11-25-2016 Episodic Residual codes; unclassified (6 sources) FH: Hypertension; Translations: [Family history of ischemic heart disease and other diseases of the circulatory system] 12-12-2014 Episodic Spondylosis; intervertebral disc disorders; other back problems (20 sources) Lumbago with sciatica; Translations: [Lumbago with sciatica, left side] Onset: 05-21-2016 05-21-2016 Episodic Results Test Name Value Interpretation Reference Range Facil ity Vital Signs Date Time Vital Sign Value Performing Clinician Facility 03-27-2023 13:35-0400 Diastolic blood pressure 52 mm[Hg] Vera Armstrong MD Work Phone: [facility] 03-27-2023 13:35-0400 Systolic blood pressure 157 mm[Hg] Vera Armstrong MD Work Phone: [facility] 03-27-2023 13:29-0400 Body height 154.9 cm Vera Armstrong MD Work Phone: [facility] 03-27-2023 13:29-0400 Body weight 69.4 kg Vera Armstrong MD Work Phone: [facility] 03-27-2023 13:29-0400 Heart rate 51 /min Vera Armstrong MD Work Phone: [facility] 03-27-2023 13:29-0400 SaO2% (BldA) [Mass fraction] 96 % Vera Armstrong MD Work Phone: [facility] 01-15-2023 11:07-0400 Diastolic blood pressure 65 mm[Hg] Andrei Leslie MD Work Phone: [facility] 01-15-2023 11:07-0400 Systolic blood pressure 147 mm[Hg] Andrei Leslie MD Work Phone: [facility] 01-15-2023 11:04-0400 Body weight 69.4 kg Andrei Leslie MD Work Phone: [facility] 01-15-2023 11:04-0400 Heart rate 50 /min Andrei Leslie MD Work Phone: [facility] 01-15-2023 11:04-0400 SaO2% (BldA) [Mass fraction] 98 % Andrei Leslie MD Work Phone: [facility] 01-14-2023 11:57-0400 Body height 158.1 cm Pulm Wstr Work Phone: [facility] 01-14-2023 11:57-0400 Body weight 68.95 kg Pulm Wstr Work Phone: [facility] 11-12-2022 12:18-0400 Body temperature 97.39 [degF] Araceli Hernandez MD Work Phone: [facility] 11-12-2022 12:18-0400 Body weight 70.94 kg Araceli Hernandez MD Work Phone: [facility] 11-12-2022 12:18-0400 Diastolic blood pressure 56 mm[Hg] Araceli Hernandez MD Work Phone: [facility] 11-12-2022 12:18-0400 Heart rate 54 /min Araceli Hernandez MD Work Phone: [facility] 11-12-2022 12:18-0400 Systolic blood pressure 139 mm[Hg] Araceli Hernandez MD Work Phone: [facility] 09-10-2021 11:35-0400 Body height 157.5 cm Araceli Hernandez MD Work Phone: [facility] 09-10-2021 11:35-0400 Body temperature 97.9 [degF] Araceli Hernandez MD Work Phone: [facility] 09-10-2021 11:35-0400 Body weight 79.83 kg Araceli Hernandez MD Work Phone: [facility] 09-10-2021 11:35-0400 Diastolic blood pressure 48 mm[Hg] Araceli Hernandez MD Work Phone: [facility] 09-10-2021 11:35-0400 Heart rate 56 /min Araceli Hernandez MD Work Phone: [facility] 09-10-2021 11:35-0400 Systolic blood pressure 141 mm[Hg] Araceli Hernandez MD Work Phone: [facility] 12-30-2016 10:23-0400 BP Diastolic 62 mm[Hg] Harumi DeFinis [facility] Work Phone: 12-30-2016 10:23-0400 BP Systolic 168 mm[Hg] Harumi DeFinis [facility] Work Phone: 12-30-2016 10:23-0400 Pulse (Heart Rate) 60 /min Harumi DeFinis [facility] Work Phone: 12-30-2016 10:23-0400 Respiratory Rate 16 /min Harumi DeFinis [facility] Work Phone: 11-25-2016 14:00-0400 BMI (Body Mass Index) 29.62 kg/m2 [facility] Work Phone: 11-25-2016 14:00-0400 BP Diastolic 70 mm[Hg] Joi Ballard RN [facility] Work Phone: 11-25-2016 14:00-0400 BP Systolic 160 mm[Hg] Joi Ballard RN [facility] Work Phone: 11-25-2016 14:00-0400 Height 162.56 cm [facility] Work Phone: 11-25-2016 14:00-0400 Pulse (Heart Rate) 68 /min [facility] Work Phone: 11-25-2016 14:00-0400 Respiratory Rate 16 /min [facility] Work Phone: 11-25-2016 14:00-0400 Weight 78.29 kg Joi Ballard RN [facility] Work Phone: 02-05-2016 10:57-0400 Heart rate 52 /min Joi Ballard RN [facility] Work Phone: 02-05-2016 10:47-0400 BMI (Body Mass Index) 29.04 kg/m2 [facility] Work Phone: 02-05-2016 10:47-0400 BP Diastolic 58 mm[Hg] Joi Ballard RN [facility] Work Phone: 02-05-2016 10:47-0400 BP Systolic 160 mm[Hg] Joi Ballard RN [facility] Work Phone: 02-05-2016 10:47-0400 BSA (Body Surface Area) 1.82 m2 Joi Ballard RN [facility] Work Phone: 02-05-2016 10:47-0400 Pulse (Heart Rate) 52 /min [facility] Work Phone: 02-05-2016 10:47-0400 Respiratory Rate 18 /min [facility] Work Phone: 02-05-2016 10:47-0400 Weight 76.75 kg [facility] Work Phone: 03-17-2013 13:33-0400 Height 162.56 cm Joi Ballard RN [facility] Work Phone: 09-02-2011 13:54-0400 Heart rate 419 ms Joi Ballard RN [facility] Work Phone: Encounters Encounter Date Encounter Type Care Provider Facility Start: 06-13-2023 [facility] Facility:[facility] Start: 06-13-2023 End: 06-13-2023 ambulatory MARLO MAO-ABUNDIO Facility:[facility] Start: 06-10-2023 End: 06-10-2023 ambulatory VERA NATHANIEL Facility:[facility] Start: 06-10-2023 End: 06-10-2023 ambulatory YVETTE ENCARNACION Facility:[facility] Start: 06-06-2023 End: 06-06-2023 ambulatory MARLO MAOJENNIFERINGRID Facility:[facility] Start: 06-06-2023 End: 06-07-2023 ambulatory MARLO CAVANAUGH-ABUNDIO Facility:[facility] Start: 06-06-2023 End: 06-06-2023 ambulatory VERA ARMSTRONG Facility:[facility] Start: 05-21-2023 Telephone encounter Syed De La Rosa MD Work Phone: Cardiology Procedures Date Procedure Procedure Detail Performing Clinician Start: 02-26-2023 Ct thorax w/o contra st material Andrei Leslie MD Work Phone: Start: 01-14-2023 Spmtry w/vc expirato ry bryn w/wo mxml vol vntj Andrei Leslie MD Work Phone: Start: 11-15-2022 Ct thorax w/o contra st material Araceli Hernandez MD Work Phone: Start: 08-12-2022 Dxa bone density ian dy 1/> sites axial skel Araceli Hernandez MD Work Phone: Start: 09-10-2021 Urnls dip stick/tabl et rgnt auto w/o microscopy Araceli Hernandez MD Work Phone: Start: 11-25-2016 End: 11-25-2016 Follow Up Appt 6 months Luis Alberto Madera MD Start: 11-25-2016 End: 12-30-2016 Follow Up BP Check Luis Alberto Madera MD Start: 11-25-2016 End: 11-25-2016 MMM Luis Alberto Madera MD Start: 02-05-2016 End: 02-05-2016 Dietary management education, guidance, and counseling Joi Ballard RN Start: 02-05-2016 End: 02-05-2016 Electrocardiogram, complete Joi Rich PA-C Work Phone: Start: 02-05-2016 End: 02-05-2016 Follow Up Appt 6 months Joi ramos PA-C Work Phone: Start: 02-05-2016 End: 02-05-2016 Nuclear stress test -exercise Joi Rivera PA-C Work Phone: Start: 02-05-2016 End: 02-05-2016 PFM Joi Rivera PA-C Work Phone: Start: 07-10-2015 End: 07-10-2015 Follow Up Appt 6 months Luis Alberto Madera MD Start: 07-10-2015 End: 07-10-2015 MMM Luis Alberto Madera MD Start: 12-12-2014 End: 12-13-2014 Documentation of current medications Joi Rivera PA-C Work Phone: Start: 11-11-2014 End: 12-02-2014 48 hour holter monitor Luis Alberto Madera MD Start: 11-11-2014 End: 12-02-2014 [facility] Luis Alberto Madera MD Start: 11-11-2014 End: 12-02-2014 Follow Up Appt 1 month Luis Alberto Madera MD Start: 11-11-2014 End: 11-11-2014 Follow Up Appt Other Luis Alberto Madera MD Start: 11-11-2014 End: 12-02-2014 MMM Luis Alberto Madera MD Start: 09-13-2014 End: 01-31-2016 *Hepatic Function Panel Joi ramos PA-C Work Phone: Start: 09-13-2014 End: 01-31-2016 Lipid panel [AGGREGATE] Joi ramos PA-C Work Phone: Start: 03-14-2014 End: 03-14-2014 Electrocardiogram, complete Joi Rich PA-C Work Phone: Start: 03-14-2014 End: 03-14-2014 Follow Up Appt 6 months Joi ramos PA-C Work Phone: Start: 03-14-2014 End: 03-14-2014 PFM Joi Rivera PA-C Work Phone: Start: 02-14-2014 End: 03-07-2014 *Hepatic Function Panel Luis Alberto Madera MD Start: 02-14-2014 End: 03-04-2014 Lipid panel [AGGREGATE] Luis Alberto Madera MD Start: 09-14-2013 End: 03-04-2014 *Hepatic Function Panel Luis Alberto Madera MD Start: 09-14-2013 End: 03-04-2014 Lipid panel [AGGREGATE] Luis Alberto Madera MD Start: 09-09-2013 End: 03-08-2014 Echocardiography Luis Alberto Madera MD Start: 09-09-2013 End: 09-09-2013 Follow Up Appt 6 months Luis Alberto Madera MD Start: 09-09-2013 End: 09-09-2013 MMM Luis Alberto Madera MD Start: 03-17-2013 End: 03-04-2014 *Hepatic Function Panel Luis Alberto Madera MD Start: 03-17-2013 End: 03-17-2013 Follow Up Appt 6 months Luis Alberto Madera MD Start: 03-17-2013 End: 03-04-2014 Lipid panel [AGGREGATE] Luis Alberto Madera MD Start: 03-17-2013 End: 03-17-2013 PFM Luis Alberto Madera MD Start: 03-10-2013 End: 03-15-2013 *Hepatic Function Panel Yasmnai Villegas MD Start: 03-10-2013 End: 03-16-2013 Lipid panel [AGGREGATE] Yasmani Villegas MD Start: 09-09-2012 End: 03-16-2013 *Hepatic Function Panel Yasmani Villegas MD Start: 09-09-2012 End: 03-16-2013 Lipid panel [AGGREGATE] Yasmani Villegas MD Start: 08-31-2012 End: 03-08-2014 Echocardiography Yasmani Villegas MD Start: 08-31-2012 End: 08-31-2012 Follow Up Appt 6 months Yasmani Villegas MD Start: 03-09-2012 End: 03-09-2012 Follow Up Appt 6 months Yasmani Villegas MD Start: 02-19-2012 End: 03-03-2012 *Hepatic Function Panel Yasmani Villegas MD Start: 02-19-2012 End: 03-03-2012 Lipid panel [AGGREGATE] Yasmani Villegsa MD Start: 09-02-2011 End: 09-02-2011 Follow Up Appt 6 months Yasmani Villegas MD Plan of Treatment Date Care Activity Detail Author Start: 05-19-2026 Diabetes Screening Diabetes Screening [facility] Start: 03-25-2026 Diabetes Screening Diabetes Screening [facility] Start: 12-31-2025 DIABETES SCREEN DIABETES SCREEN [facility] Start: 12-31-2025 Diabetes Screening Diabetes Screening [facility] Start: 11-12-2025 DIABETES SCREEN DIABETES SCREEN [facility] Start: 10-11-2025 DIABETES SCREEN DIABETES SCREEN [facility] Start: 07-23-2025 DIABETES SCREEN DIABETES SCREEN [facility] Start: 03-25-2025 DIABETES SCREEN DIABETES SCREEN [facility] Start: 02-22-2025 DIABETES SCREEN DIABETES SCREEN [facility] Start: 11-30-2024 DIABETES SCREEN DIABETES SCREEN [facility] Start: 11-05-2024 DIABETES SCREEN DIABETES SCREEN [facility] Start: 10-04-2024 DIABETES SCREEN DIABETES SCREEN [facility] Start: 08-30-2024 DIABETES SCREEN DIABETES SCREEN [facility] Start: 05-19-2024 Hepatitis B surface antibody level LDL Cholesterol [facility] Start: 04-07-2023 End: 07-07-2023 CBC W Auto Differential panel - Blood CBC + DIFF Lab Routine Aortic valve disorder Expected: 04/07/2023, Expires: 07/07/2023 [facility] Work Phone: Immunizations Immunization Date Immunization Notes Care Provider [facility] 04-29-2022 influenza (aIIV4) vaccine, age 65+ yr, quadrivalent, PF (FLUAD QUAD) Araceli Hernandez MD Work Phone: [facility] 04-29-2022 influenza virus vacc ine, unspecified formulation Andrei Leslie MD Work Phone: [facility] 04-24-2020 influenza, injectabl e, quadrivalent, contains preservative Araceli Hernandez MD Work Phone: [facility] 04-10-2020 influenza, injectabl e, quadrivalent, contains preservative Araceli Hernandez MD Work Phone: [facility] 04-10-2020 influenza, seasonal, injectable Araceli Hernandez MD Work Phone: [facility] 04-10-2020 influenza, seasonal, injectable, preservative free Araceli Hernandez MD Work Phone: [facility] 04-19-2019 influenza, seasonal, injectable Araceli Hernandez MD Work Phone: [facility] 04-19-2019 Seasonal trivalent influenza vaccine, adjuvanted, preservative free Araceli Hernandez MD Work Phone: [facility] 04-16-2019 influenza, seasonal, injectable Araceli Hernandez MD Work Phone: [facility] 04-16-2019 influenza, seasonal, injectable, preservative free Araceli Hernandez MD Work Phone: [facility] 04-16-2018 influenza, high dose seasonal, preservative-free Araceli Hernandez MD Work Phone: [facility] Work Phone: 04-16-2018 influenza, injectabl e, quadrivalent, preservative free Araceli Hernandez MD Work Phone: [facility] 04-15-2018 influenza, seasonal, injectable Araceli Hernandez MD Work Phone: [facility] 04-15-2018 influenza, seasonal, injectable, preservative free Araceli Hernandez MD Work Phone: [facility] 04-01-2017 influenza, injectabl e, quadrivalent, preservative free Araceli Hernandez MD Work Phone: [facility] 04-01-2017 influenza, seasonal, injectable Araceli Hernandez MD Work Phone: [facility] Work Phone: 04-23-2016 influenza, high dose seasonal, preservative-free Araceli Hernandez MD Work Phone: [facility] Work Phone: 04-11-2015 influenza, high dose seasonal, preservative-free Araceli Hernandez MD Work Phone: [facility] 02-06-2015 pneumococcal conjuga te vaccine, 13 valent Araceli Hernandez MD Work Phone: [facility] 04-25-2014 influenza, seasonal, injectable Araceli Hernandez MD Work Phone: [facility] 04-16-2013 influenza virus vacc ine, unspecified formulation Araceli Hernandez MD Work Phone: [facility] Work Phone: 04-16-2012 influenza virus vacc ine, unspecified formulation Araceli Hernandez MD Work Phone: [facility] Work Phone: 03-30-2009 influenza virus vacc ine, unspecified formulation Araceli Hernandez MD Work Phone: [facility] Work Phone: 09-10-2004 diphtheria and tetan us toxoids, adsorbed for pediatric use Araceli Hernandez MD Work Phone: [facility] [facility] Work Phone: 03-30-2004 pneumococcal polysaccharide vaccine, 23 valent Araceli Hernandez MD Work Phone: [facility] Work Phone: Payers Date Payer Category Payer Medicare [id number] 2016 Private Health Insurance [employer] MEDICARE SUPPLEMENT [id number] 2016-Present [phone] [address] [place] [address] Indemnity [id number] 2016 Private Health Insurance [employer] C [place] MEDICARE SUPPLEMENT [id number] 2016-Present [phone] [address] [place] [address] Indemnity [id number] 2002 Medicare MEDICARE MEDICAR E A AND B [id number] 2002-Present [phone] [address] [address] [place] [address] Medicare [id number] 2002 Medicare MEDICARE MEDICAR E A AND B [id number] 2002-Present [phone] [place] [address] Medicare [id number] 2002 Medicare [id number] Social History Date Type Detail Facility Start: 03-01-2021 End: 07-23-2022 Tobacco smoking status NHIS Never smoked tobacco [facility] Start: 09-10-2021 End: 01-15-2023 Alcohol intake Current non-drinker of alcohol (finding) [facility] Start: 1935 Sex Assigned At Female C [facility] Start: 08-31-2021 End: 09-10-2021 Exposure to SARS-CoV-2 (event) Not sure [facility] Start: 03-01-2021 End: 07-23-2022 Tobacco use and exposure Smokeless tobacco non-user [facility] Start: 11-12-2022 End: 01-09-2023 History of Social function [facility] Start: 11-12-2022 End: 01-09-2023 Social connection and isolation panel [facility] Do you belong to any clubs or organizations such as synagogue groups, unions, fraternal or athletic groups, or school groups? No [facility] Are you now , , , , never or living with a partner? [facility] How often to you hav e a drink containing alcohol? Never [facility] How many standard dr inks containing alcohol do you have on a typical day? Patient does not drink [facility] Do you feel stress - tense, restless, nervous, or anxious, or unable to sleep at night because your mind is troubled all the time - these days [OSQ] Not at all [facility] (I/We) worried wheth er (my/our) food would run out before (I/we) got money to buy more. Never true [facility] Start: 03-26-2021 Gender identity Identifies as female gender (finding) [facility] Start: 07-24-2021 Sexual orientation Heterosexual (fin hitesh) [facility] Start: 03-27-2023 Alcohol intake Ex-drinker (finding) [facility] Clinical Notes 04-08-2021 to 06-13-2023 Telephone Encounter - Karlo Hernandez - 05/21/2023 9:48 AM Marlo Mueller APRN.CNP - 04/07/2023 4:14 PM Vera Toussaint MD - 03/27/2023 12:30 PM EDTPatient Instructions Note Date & Type Note Facility 06-13-2023 Note HNO ID: [id number] Author: Zohra Vital RT(R) Service: Radiology Author Type: Technologist Type: Progress Notes Filed: 06/13/2023 2:10 PM Note Text: Radiology Service Progress Note PATIENT NAME: Precious Jean DATE OF SERVICE: June 13, 2023 TIME: 2:07 PM PATIENT IDENTITY VERIFICATION COMPLETED USING TWO (2) IDENTIFIERS: Name and Date of confirmed by patient verbally and Name and Date of confirmed by identification band. FALL SCREENING: Has the patient had 2 falls in the last year or 1 fall with injury or currently using an Ambulatory Assistive Device (Walker, Cane, Wheelchair, Crutches, etc.)? No PATIENT GENDER DATA: Female. status: : No status: NO. PATIENT RELEVANT IMPLANT DATA REVIEWED: Yes RADIOLOGY DEPARTMENT: CT; Exam(s) Completed: Cardiac PERIPHERAL IV DATA: Site assessment: Clean,Dry and Intact, Site disposition Discontinued SIGNED BY: RT Nathan(R) June 13, 2023 2:07 PM [facility] 06-13-2023 Note HNO ID: [id number] Author: Tran Rodriguez RN Service: Radiology Author Type: Registered Nurse Type: Progress Notes Filed: 06/13/2023 1:55 PM Note Text: Radiology Service Progress Note DATE OF SERVICE: June 13, 2023 TIME: 1:40 PM PATIENT WEIGHT: 148LBS PATIENT IDENTITY VERIFICATION COMPLETED USING TWO (2) STANDARD IDENTIFIERS: Name and Date of confirmed by patient verbally and Name and Date of confirmed by identification band. FALL SCREENING: Has the patient had 2 falls in the last year or 1 fall with injury or currently using an Ambulatory Assistive Device (Walker, Cane, Wheelchair, Crutches, etc.)? No PATIENT GENDER DATA: Female. status: : No status: NO. ALLERGIES: Reviewed and unchanged CONTRAST ALLERGY: Yes STANDARD PREMEDICATION: Prednisone 50mg Dose 1 taken at 2100, Dose 2 at 0700, and Dose 3 at 1145 Benad[address] Contreras no need for extra doses of prednisone or Benadryl. EXAM: CT -CONTRAST INDUCED NEPHROPATHY RISK FACTORS: Patient age > 60 years CREATININE: Creatinine Date Value Ref Range Status 06/06/2023 0.87 0.58 - 0.96 mg/dL Final 05/19/2023 0.97 (H) 0.58 - 0.96 mg/dL Final 03/25/2023 1.02 (H) 0.58 - 0.96 mg/dL Final Estimated Glomerular Filtration Rate Date Value Ref Range Status 06/06/2023 65 >=60 mL/min/1.73m? Final Comment: Estimated Glomerular Filtration Rate (eGFR) is calculated using the 2020 CKD-EPI creatinine equation. This equation utilizes serum creatinine, sex, and age as parameters. The creatinine assay has traceable calibration to isotope dilution-mass spectrometry. Refer to KDIGO guidelines for clinical interpretation. In patients with unstable renal function, e.g. those with acute kidney injury, the eGFR may not accurately reflect actual GFR. eGFR- Date Value Ref Range Status 07/26/2021 >60 Final P.O.C.T. RESULTS: N/A June 13, 2023 TREATMENT: No Hydration needed. IV SITE: Ambulatory: A peripheral IV was started in the Right antecubital site with a Angio cath: 20 gauge. and A Saline lock was inserted per protocol. PLaced in [facility] IV SITE APPEARANCE: Clean,Dry and Intact SIGNATURE: Tran Rodriguez RN PATIENT NAME: Precious Jean DATE: June 13, 2023 TIME: 1:40 PM [facility] 06-13-2023 Note HNO ID: [id number] Author: Kareen Falcon APRN.PULMONOLOGIST Service: ? Author Type: Nurse Practitioner Type: Progress Notes Filed: 06/13/2023 12:05 PM Note Text: [facility] [place] [facility] Department of Cardiovascular Medicine SECTION OF INTERVENTIONAL CARDIOLOGY OUTPATIENT VISIT DATE June 13, 2023 OUTPATIENT VISIT TYPE ESTABLISHED FOLLOW UP Primary Care Physician: None on file Chief Complaint: Patient is here today for cardiac evaluation follow up. History of Present Illness: Precious Jean is a 87 year old female who presents for follow up visit today to discuss the evaluation process for aortic valve disease and treatment options which include TAVR. Precious Jean was last seen by Dr. Keating and will see Dr. Maxwell this afternoon. Precious Jean is from [place] where she lives with her . She reports shortness of breath on exertion, fatigue, and ankle swelling. States that a flight of stairs will make her exhibit symptoms. She is independent in her ADLs, but has to take things slow. She is not driving Denies chest pain, orthopnea, PND, palpitations, lightheadedness, syncope, claudication, cough, and wheezing CARDIOVASCULAR MEDICINE TESTING: Echocardiogram 03/25/2023: The left ventricle is mildly dilated. There is mild concentric left ventricular hypertrophy. Left ventricular systolic function is normal. EF = 63 ? 5% (2D biplane) Indeterminate left ventricular diastolic dysfunction due to >2+ MR and >2+ AI. The right ventricle is normal in size. Right ventricular systolic function is normal. MITRAL VALVE There is moderate mitral annular calcification observed posterior. There is mild (1+ - 2+) mitral valve regurgitation. Regurgitant orifice area (PISA) is 0.17 cm?. The pressure half time is 41 msec. The peak mitral E/A ratio is 1.96. The average mitral E/e' ratio is 24.8. The mitral flow deceleration time is 141 msec. TRICUSPID VALVE The tricuspid valve leaflets are structurally normal. There is mild (1+ - 2+) tricuspid valve regurgitation. AORTIC VALVE There is moderately severe aortic valve stenosis. There is moderate (2+) aortic valve regurgitation. Tricuspid aortic valve. There is moderate thickening. There is severe calcification. The peak gradient is 68 mmHg (peak velocity = 411.7 cm/s). The mean gradient is 37 mmHg. The LVOT mean velocity is 82.6 cm/s. The LVOT diameter is 1.9 cm. The aortic VTI is 113.1 cm. The mean velocity in the aortic valve is 288.5 cm/s. The dimensionless valve index is 0.29. AV area is 0.82 cm? (0.47 cm?/m?) by continuity, VTI. The LVOT stroke volume index is 54 ml/m?. Cardiac Catheterization 06/10/2023: Coronary Anatomy: Right Dominant Injection Site(s): Coronary Artery LMT: _ The LMT has mild luminal irregularities. Additional Comment: The LMT is a normal caliber vessel with mild luminal disease giving off the LAD and LCx. LAD: _ The LAD has mild diffuse disease. Additional Comment: The LAD is a normal caliber vessel with mild luminal diseaes proximally. The LAD gives off multiple diagonal branches and septal perforates as it wraps around the cardiac apex. LCX: _ The Circumflex has mild diffuse disease. Additional Comment: The LCx is a normal caliber vessel giving off multiple obtuse mariginal branches.There is severe diffuse disease noted in OM1. There is a 50% lesion on take off of the OM2. There is a patent stent in the proximal LCx. RAMUS: _ The Ramus is Absent. RCA: _ The RCA has severe diffuse disease. Additional Comment: The RCA is a dominant normal caliber vessel with moderate proximal disease just after take off of the first branch. There is severe diffuse ISR of the stent placed in the mid RCA. There remains competitive flow to the distal RCA by collateral from the left coronary system. + + IMPRESSION/PLAN + + Impression: - Right coronary dominance - Known INTERNAL MEDICINE DOCTOR of the mid RCA due to ISR with distal vessel filling via L-R collaterals. - Grossly unchanged coronary angiogram from prior cath in 2020 following PCI of proximal LCx. Recommended Treatment: Valve repair / replacement. Plan: - Continued work-up for TAVR candidacy. -Continue ongoing medical therapy Carotid Ultrasound 06/06/2023: RIGHT SIDE Common carotid artery: Plaque visualized without evidence of hemodynamically significant stenosis. Internal carotid artery: 20-39% stenosis. Vertebral artery: Patent and antegrade flow noted. LEFT SIDE Common carotid artery: Plaque visualized without evidence of hemodynamically significant stenosis. Internal carotid artery: 40-59% stenosis. Lesion at origin : 1.42 cm. Findings may be underestimated due to calcified shadowing plaque at origin . Vertebral artery: Patent and antegrade flow noted. Hemoglobin (g/dL) Date Value 06/06/2023 12. (more content not included)... [facility] 06-13-2023 Note HNO ID: [id number] Author: Araceli Evans RT(Mario) Service: ? Author Type: Technologist Type: Progress Notes Filed: 06/13/2023 10:03 AM Note Text: RADIOLOGY SERVICE PROGRESS NOTE SERVICE DATE: 06/13/2023 SERVICE TIME: 10:03 AM PATIENT IDENTITY VERIFICATION COMPLETED USING TWO (2) STANDARD IDENTIFIERS: Name and Date of confirmed by patient verbally and Name and Date of confirmed by identification band FALL SCREENING: Has the patient had 2 falls in the last year or 1 fall with injury or currently using an Ambulatory Assistive Device (Walker, Cane, Wheelchair, Crutches, etc.)? Yes, Patient High Risk for Falls What interventions were put in place to prevent falls during this visit? Yellow Falls Risk Wristband Applied PATIENT GENDER DATA: .female : No ALLERGIES: Reviewed and unchanged MEDICATIONS REVIEWED: Yes PATIENT RELEVANT IMPLANT DATA REVIEWED: Not Applicable CREATININE: Creatinine Date Value Ref Range Status 06/06/2023 0.87 0.58 - 0.96 mg/dL Final 05/19/2023 0.97 (H) 0.58 - 0.96 mg/dL Final 03/25/2023 1.02 (H) 0.58 - 0.96 mg/dL Final Estimated Glomerular Filtration Rate Date Value Ref Range Status 06/06/2023 65 >=60 mL/min/1.73m? Final Comment: Estimated Glomerular Filtration Rate (eGFR) is calculated using the 2020 CKD-EPI creatinine equation. This equation utilizes serum creatinine, sex, and age as parameters. The creatinine assay has traceable calibration to isotope dilution-mass spectrometry. Refer to KDIGO guidelines for clinical interpretation. In patients with unstable renal function, e.g. those with acute kidney injury, the eGFR may not accurately reflect actual GFR. eGFR- Date Value Ref Range Status 07/26/2021 >60 Final P.O.C.T. RESULTS: N/A June 13, [address] PERFORMED: No IV SITE: Ambulatory: A peripheral IV was started in the Right antecubital site with a Angio cath: 20 gauge. POST EXAM PIV STATUS: Left in for next appointment PROCEDURE TYPE: NM INJECT: NM CARDIAC AMYLOID SPECT/CT. 22.2 mCi Tc99m Pyrophosphate. No other medications given.. ADMINISTRATION TIME: 0940 PATIENT DISCHARGED TO: Ambulatory patient, left NM department area. A Diagnostic radioactive procedure has taken place, with no further precautions necessary other than routine body substance precautions. More information regarding radiation safety can be found using this link: [email or web address] SIGNATURE: RT Elisabeth(R) PATIENT NAME: Precious Jean DATE: June 13, 2023 TIME: 10:03 AM PAGER/CONTACT #: [facility] 06-06-2023 Note HNO ID: [id number] Author: Tran Rodriguez RN Service: Radiology Author Type: Registered Nurse Type: Progress Notes Filed: 06/06/2023 11:14 AM Note Text: RADIOLOGY SERVICE PROGRESS NOTE DATE OF SERVICE: June 06, 2023 TIME OF SERVICE: 1110 EVENT: EXAM/PROCEDURE NOT COMPLETED - Pt has an allergy to iodine and did not take premedications. Dr. Fragoso notified and scan cancelled for today. Written and verbal instructions given to pt and family member about 13 hour prep for future scans, both pt and family member verbalized understanding. Pt sent to next appointment. ADDITIONAL EVENT DETAILS: N/A SIGNATURE: Tran Rodriguez RN PATIENT NAME: Precious Jean DATE: June 06, 2023 TIME: 11:11 AM PAGER/CONTACT #: [facility] 06-06-2023 Note HNO ID: [id number] Author: Korin Nowak Service: ? Author Type: ? Type: Progress Notes Filed: 06/06/2023 11:59 AM Note Text: Summary: [facility] Research DOCUMENTATION OF DISCUSSION Study TItle: Risk Assessment of Stroke Using Non-Invasive Ultrasonic Backscatter from Carotid Plaque (RUNUP) IRB#: [id number] PI: Phil Vidal, PhD Phone#: [phone] COORDINATOR/Research Nurse/Raw Sampler: Jonathan Jacinto, PhD or Anitra Valera or Pager: [phone] Subject will NOT be enrolled in the RUNUP study at this time. A copy of the informed consent document was provided to the subject for review. Reason: MISSED SUBJECT The Pre-Enrollment checklist has been created for this patient. Inclusion and Exclusion Criteria for CEA Group: Inclusion Criteria A patient is eligible for the study if all of the following criteria are met: - Age greater than or equal to 40years - 40% or greater carotid stenosis as determined by duplex ultrasound - Evidence of carotid plaque Exclusion Criteria and Contraindications A patient is not eligible for the study if any one of the following is present: - Prior surgery or intervention involving the carotid artery (including CEA and JUDD) - Non-atherosclerotic vascular disease (e.g. fibromuscular dysplasia or systemic vasculitis) - Unable to provide informed consent - Unable to understand Finnish language. Korin Nowak [facility] 06-06-2023 Note HNO ID: [id number] Author: Rosette Kerns RT(R) Service: Radiology Author Type: Technologist Type: Progress Notes Filed: 06/06/2023 9:01 AM Note Text: Radiology Service Progress Note PATIENT NAME: Precious Jean DATE OF SERVICE: June 06, 2023 TIME: 9:00 AM PATIENT IDENTITY VERIFICATION COMPLETED USING TWO (2) IDENTIFIERS: Name and Date of confirmed by patient verbally. FALL SCREENING: Has the patient had 2 falls in the last year or 1 fall with injury or currently using an Ambulatory Assistive Device (Walker, Cane, Wheelchair, Crutches, etc.)? No PATIENT GENDER DATA: Female. status: : No status: NO. PATIENT RELEVANT IMPLANT DATA REVIEWED: Not Applicable RADIOLOGY DEPARTMENT: General X-ray: Exam(s) Completed: Chest X-Ray PERIPHERAL IV DATA: Not applicable SIGNED BY: Rosette Kerns, RT(R) June 06, 2023 9:00 AM [facility] 06-06-2023 Note HNO ID: [id number] Author: Rhoda Keating MD Service: ? Author Type: Physician Type: Progress Notes Filed: 06/06/2023 8:55 AM Note Text: [facility] [place] [facility] Department of Cardiovascular Medicine SECTION OF INTERVENTIONAL CARDIOLOGY OUTPATIENT VISIT DATE June 04, 2023 OUTPATIENT VISIT TYPE NEW PRIMARY CARE PHYSICIAN: To use this Smartlink, specify the provider ID whose address you want to display, e.g., .PROVADDR[1 (where 1 is the provider ID). REFERRING PHYSICIAN: Vera Armstrong [address] [facility] [address] CHIEF COMPLAINT: No chief complaint on file. HISTORY OF PRESENT ILLNESS: Ms. Jean is an 87-year-old female who was referred by Dr. Velasquez ([facility]) for consultation re evaluation and treatment of aortic stenosis possibly with TAVR. She she was aware of an murmur for many decades. She was known to have aortic stenosis and followed regularly. She has multiple medical problems which she attributes her mild shortness of breath with exertion. At repeat questioning she stated that she has no new symptoms such as worsening shortness of breath, PND chest pain syncope or presyncope. Her vision is deteriorating due to cataracts and she needs bronchoscopy. These procedures were held up because of her aortic stenosis. Past medical history is significant for hypertension, hyperlipidemia, carotid artery disease, Coronary artery disease s/p PCI/LEANDER to LAD (2003), PCI/LEANDER to mid RCA (11/2017), PCI/LEANDER to mid LCx (02/2018), PCI/LEANDER to mid RCA (07/2018), PTCA to mid RCA (04/2019), PCI/LEANDER to mid RCA (05/2019) and shockwave lithotripsy and IVUS guided PCI with LEANDER to LCx (04/09/2021) - Patient admits to 9 stents told but this is what was found per her records, artery disease, obstructive sleep apnea, sarcoidosis, hemolytic anemia. On 03/25/2023 showed EF 63%, AVG 68/37 mmHg, SHELTON 0.82 cm2 (0.47 cm2/m2), DVI 0.29, SVI 36 ml/m2, MAC and 1-2+ MR, 1-2+ TR, ERVSP 54 mmHg. NURSING INTAKE: HISTORY Precious Jean is an 87 year old female ([place]) with pmhx of: Aortic valve stenosis with regurgitation Coronary artery disease s/p PCI/LEANDER to LAD (2003), PCI/LEANDER to mid RCA (11/2017), PCI/LEANDER to mid LCx (02/2018), PCI/LEANDER to mid RCA (07/2018), PTCA to mid RCA (04/2019), PCI/LEANDER to mid RCA (05/2019) and shockwave lithotripsy and IVUS guided PCI with LEANDER to LCx (04/09/2021) - Patient admits to 9 stents told but this is what was found per her records Hypertension Hyperlipidemia Obstructive sleep apnea (on BiPAP) Carotid artery disease Hypothyroidism Vasculitis Mediastinal lymphadenopathy Pulmonary sarcoidosis Known lung nodules - follows with Dr. Leslie, working on getting a bronchoscopy to r/o malignancy Hemolytic anemia Mrs. Jean states that she follows with a cardiology group in [facility]. She states that she needs to have a diagnostic bronchoscopy. Dr. Andrei Leslie has requested cardiac clearance due to aortic valve disease and Plavix therapy. It appears that she was reviewed by MANUEL Garcia from the [place] [facility] on 03/11/2023, with cardiac clearance and Plavix instructions written in a letter but for some reason she was still sent here to [facility] for cardiac clearance. When I asked Mrs. Jean about her aortic valve stenosis and regurgitation she states she was not aware of this but she states that she did know she had a heart murmur and that her [place] doctors know she has a heart murmur. She presents today with complaints of shortness of breath upon exertion, and bilateral lower extremity edema intermittently. She takes lasix PRN and responds well. Risk factors for coronary artery disease hyperlipidemia, hypertension, family history of CAD She denies chest pain, orthopnea, PND, palpitations, lightheadedness, syncope, claudication, cough, and wheezing. Diet / Nutrition: regular Weight: stable Exercise: none Records review Echo 03/25/2023: - Exam indication: Initial evaluation valvular heart disease - The left ventricle is mildly dilated. There is mild concentric left ventricular hypertrophy. Left ventricular systolic function is normal. EF = 63 ? 5% (2D biplane) Indeterminate left ventricular diastolic dysfunction due to >2+ MR and >2+ AI. - The right ventricle is normal in size. Right ventricular systolic function is normal. - The left atrial cavity is severely dilated. - The right atrial cavity is mildly dilated. - Tricuspid aortic valve. There is moderate (2+) aortic valve regurgitation. There is moderately severe aortic valve stenosis. AV area is 0.82 cm? (0.47 cm?/m?) by continuity, VTI. The peak gradient is 68 mmHg, the mean gradient is 37 mmHg and the dimensionless valve index is 0.29. - Estimated right ventricular systolic pressure is 54 mmHg consistent with moderate pulmonary hypertension. Estimated rig (more content not included)... [facility] 05-21-2023 Miscellaneous Notes Pt's daughter called asking if pt could have a dental clearance without xrays if the dentist don't see any abscess or infection. Daughter states that pt will not get xrays due to the radiation being too close to her thyroid. Office informed daughter the dental clearance is for the dentist to determine if pt's dental health is acceptable for the procedure. documented in this encounter [facility] 04-07-2023 Note HNO ID: [id number] Author: Marlo Lainez APRN.JANE Service: ? Author Type: Nurse Practitioner Type: Progress Notes Filed: 04/07/2023 4:45 PM Note Text: TAVR STRUCTURAL REVIEW FORM Orders placed by; Dr. Armstrong Records received: 03/27/2023 Records Reviewed: 04/07/2023 Appt request sent: 04/07/2023 Records in [facility] have been reviewed. Severe . Request has been sent to the department operations manager who will arrange an appointment schedule. Please note it can take up to 4 weeks for scheduling to take place. Once completed, a TAVR packet and schedule will be mailed to patient's home address. PLEASE NOTE: Appointment schedule being sent to the patient will be for CONSULTATION AND TESTING. All studies will be reviewed by the multidisciplinary valve team members and the TAVR procedure will be schedule at a later date. Scheduling Notes: HISTORY Precious Jean is an 87 year old female ([place]) with pmhx of: Aortic valve stenosis with regurgitation Coronary artery disease s/p PCI/LEANDER to LAD (2003), PCI/LEANDER to mid RCA (11/2017), PCI/LEANDER to mid LCx (02/2018), PCI/LEANDER to mid RCA (07/2018), PTCA to mid RCA (04/2019), PCI/LEANDER to mid RCA (05/2019) and shockwave lithotripsy and IVUS guided PCI with LEANDER to LCx (04/09/2021) - Patient admits to 9 stents told but this is what was found per her records Hypertension Hyperlipidemia Obstructive sleep apnea (on BiPAP) Carotid artery disease Hypothyroidism Vasculitis Mediastinal lymphadenopathy Pulmonary sarcoidosis Known lung nodules - follows with Dr. Leslie, working on getting a bronchoscopy to r/o malignancy Hemolytic anemia Records review Echo 03/25/2023: - Exam indication: Initial evaluation valvular heart disease - The left ventricle is mildly dilated. There is mild concentric left ventricular hypertrophy. Left ventricular systolic function is normal. EF = 63 ? 5% (2D biplane) Indeterminate left ventricular diastolic dysfunction due to >2+ MR and >2+ AI. - The right ventricle is normal in size. Right ventricular systolic function is normal. - The left atrial cavity is severely dilated. - The right atrial cavity is mildly dilated. - Tricuspid aortic valve. There is moderate (2+) aortic valve regurgitation. There is moderately severe aortic valve stenosis. AV area is 0.82 cm? (0.47 cm?/m?) by continuity, VTI. The peak gradient is 68 mmHg, the mean gradient is 37 mmHg and the dimensionless valve index is 0.29. - Estimated right ventricular systolic pressure is 54 mmHg consistent with moderate pulmonary hypertension. Estimated right atrial pressure is 3 mmHg (although IVC not seen). - The patient has not had a prior CC echocardiographic exam for comparison. CT W/O IV CON: Enlargement of peripheral opacity RIGHT upper lobe. Differential considerations remain inflammatory etiology (particularly granulomatous disease, including sarcoidosis) and neoplasm. An adjacent small nodule is slightly smaller. Decrease in basilar airspace disease. Stable findings as described in results. 04/09/2021: Cardiac Cath: Coronary Anatomy: Right Dominant Injection Site(s): Coronary Artery: LMT: _ The LMT is normal. LAD: _ The proximal LAD is narrowed 20 % - ISR. _ The mid LAD is narrowed 20 % - ISR. LCX: _ The 1st obtuse marginal circumflex - severe diffuse disease and small vessel. _ The proximal circumflex is narrowed 70 % - severe diffuse disease and the stenotic segment was heavily calcified. _ The 2nd obtuse marginal circumflex - Large sized vessel, no significant disease. calcified at the ostium. Additional Comment: the proximal LCx coronary artery showed evidence for possible ruptured plaque and was considered the culprit for unstable angina presentation. RAMUS: _ Ramus Status: Not Applicable. RCA: _ The proximal RCA is narrowed 50 % - moderate diffuse disease. _ The mid RCA is narrowed 70 % - ISR and severe diffuse ISR. Additional Comment: There is competitive flow in the distal vessel. The distal vessel is supplied by good collaterals from the left coronary circulation. 04/09/2023 Cardiac Intervention: Procedure Summary: Successful IVUS guided PCI of the 70% proximal LCx stenosis after shockwave lithotripsy with a 3.0x16mm Synergy LEANDRE, post dilated to 4.0mm Proximally, with latter-day of blood flow, no residual stenosis GFR: 54 Contrast Allergy: yes, A prescription has been sent to your pharmacy for Prednisone 50 mg and Benadryl 50 mg due to your allergy to contrast dye. Please take the Prednisone 50 mg at 13 hours, 7 hours, and 1 hour before your procedure and Benadryl 50 mg 1 hour before you procedure. Anticoagulation plan no Is patient taking GLP-1 agonist? No DX: aortic valve disorder Referring physician: Dr. Armstrong DAY ONE: Dr. Lemus/ Dr. Radford/ Dr. Meyer/Dr. De La Rosa The following testing on same day as appointment with physician: EKG/CXR/Labs (CMP; CBC (more content not included)... [facility] 04-07-2023 History of Presen t illness Narrative TAVR STRUCTURAL REVIEW FORM Orders placed by; Dr. Armstrong Records received: 03/27/2023 Records Reviewed: 04/07/2023 Appt request sent: 04/07/2023 Records in [facility] have been reviewed. Severe . Request has been sent to the department operations manager who will arrange an appointment schedule. Please note it can take up to 4 weeks for [address] to take place. Once completed, a TAVR packet and schedule will be mailed to patient's home address. PLEASE NOTE: Appointment schedule being sent to the patient will be for CONSULTATION AND TESTING. All studies will be reviewed by the multidisciplinary valve team members and the TAVR procedure will be schedule at a later date. Scheduling Notes: HISTORY Precious Jean is an 87 year old female ([place]) with pmhx of: Aortic valve stenosis with regurgitation Coronary artery disease s/p PCI/LEANDER to LAD (2003), PCI/LEANDER to mid RCA (11/2017), PCI/LEANDER to mid LCx (02/2018), PCI/LEANDER to mid RCA (07/2018), PTCA to mid RCA (04/2019), PCI/LEANDER to mid RCA (05/2019) and shockwave lithotripsy and IVUS guided PCI with LEANDER to LCx (04/09/2021) - Patient admits to 9 stents told but this is what was found per her records Hypertension Hyperlipidemia Obstructive sleep apnea (on BiPAP) Carotid artery disease Hypothyroidism Vasculitis Mediastinal lymphadenopathy Pulmonary sarcoidosis Known lung nodules - follows with Dr. Leslie, working on getting a bronchoscopy to r/o malignancy Hemolytic anemia Records review Echo 03/25/2023: - Exam indication: Initial evaluation valvular heart disease - The left ventricle is mildly dilated. There is mild concentric left ventricular hypertrophy. Left ventricular systolic function is normal. EF = 63 5% (2D biplane) Indeterminate left ventricular diastolic dysfunction due to >2+ MR and >2+ AI. - The right ventricle is normal in size. Right ventricular systolic function is normal. - The left atrial cavity is severely dilated. - The right atrial cavity is mildly dilated. - Tricuspid aortic valve. There is moderate (2+) aortic valve regurgitation. There is moderately severe aortic valve stenosis. AV area is 0.82 cm (0.47 cm /m ) by continuity, VTI. The peak gradient is 68 mmHg, the mean gradient is 37 mmHg and the dimensionless valve index is 0.29. - Estimated right ventricular systolic pressure is 54 mmHg consistent with moderate pulmonary hypertension. Estimated right atrial pressure is 3 mmHg (although IVC not seen). - The patient has not had a prior CC echocardiographic exam for comparison. CT W/O IV CON: Enlargement of peripheral opacity RIGHT upper lobe. Differential considerations remain inflammatory etiology (particularly granulomatous disease, including sarcoidosis) and neoplasm. An adjacent small nodule is slightly smaller. Decrease in basilar airspace disease. Stable findings as described in results. 04/09/2021: Cardiac Cath: Coronary Anatomy: Right Dominant Injection Site(s): Coronary Artery: LMT: _ The LMT is normal. LAD: _ The proximal LAD is narrowed 20 % - ISR. _ The mid LAD is narrowed 20 % - ISR. LCX: _ The 1st obtuse marginal circumflex - severe diffuse disease and small vessel. _ The proximal circumflex is narrowed 70 % - severe diffuse disease and the stenotic segment was heavily calcified. _ The 2nd obtuse marginal circumflex - Large sized vessel, no significant disease. calcified at the ostium. Additional Comment: the proximal LCx coronary artery showed evidence for possible ruptured plaque and was considered the culprit for unstable angina presentation. RAMUS: _ Ramus Status: Not Applicable. RCA: _ The proximal RCA is narrowed 50 % - moderate diffuse disease. _ The mid RCA is narrowed 70 % - ISR and severe diffuse ISR. Additional Comment: There is competitive flow in the distal vessel. The distal vessel is supplied by good collaterals from the left coronary circulation. 04/09/2023 Cardiac Intervention: Procedure Summary: Successful IVUS guided PCI of the 70% proximal LCx stenosis after shockwave lithotripsy with a 3.0x16mm Synergy LEANDER, post dilated to 4.0mm Proximally, with latter-day of blood flow, no residual stenosis GFR: 54 Contrast Allergy: yes, A prescription has been sent to your pharmacy for Prednisone 50 mg and Benadryl 50 mg due to your allergy to contrast dye. Please take the Prednisone 50 mg at 13 hours, 7 hours, and 1 hour before your procedure and Benadryl 50 mg 1 hour before you procedure. Anticoagulation plan no Is patient taking GLP-1 agonist? No DX: aortic valve disorder Referring physician: Dr. Armstrong DAY ONE: Dr. Lemus/ Dr. Radford/ Dr. Meyer/Dr. De La Rosa The following testing on same day as appointment with physician: EKG/CXR/Labs (CMP; CBC with diff, PT/INR, Pro-BNP, High Sensitivity Troponin, Lipoprotein(a)-LPA) CTA aorta Carotid Ultrasound DAY TWO: Left Heart catheterization: any diagnostic physician. IF CREAT is 2.0 or greater, then it should be by an Cardiac Nurse ONLY (Dr. Ellis, Dr. Meyer, Dr. De La Rosa, Dr. Radford, Dr. Lemus, Dr. Nguyen, Dr. Lockett, Dr. Mera, Dr. Booker, Dr. Brower and Dr. Encarnacion) DAY THREE: Nuclear Medicine- Amyloid SPECT Structural Valve Clinic appointment Patient is also to be seen by Dr. Beltre/Dr. Juárez/Dr. Mohan/Dr. Rodriguez/Dr. Bryant Vazquez/ Dr. Avila/ Joanne/Dr. Boykin/ Dr. Saldivar /Dr. Maxwell -Left message for the patient to call the office back- wanted to let her know that I sent her prednisone and benadryl to her local pharmacy and wanted to instruct her how to take it. Marlo Lainez APRN.JANE documented in this encounter [facility] 03-27-2023 Note HNO ID: [id number] Author: Vera Armstrong MD Service: ? Author Type: Physician Type: Progress Notes Filed: 03/27/2023 9:59 PM Note Text: [facility] Department of Cardiovascular Medicine SECTION OF CARDIOVASCULAR IMAGING OUTPATIENT VISIT DATE March 27, 2023 OUTPATIENT VISIT TYPE CONSULTATION REFERRING PHYSICIAN Andrei Sanford - Pulmonary Physician CHIEF COMPLAINT: Patient presents with: Valvular Heart Disease Pre-Op Exam HISTORY OF PRESENT ILLNESS: Cardiac consultation at the request of Dr Sanford. A copy of this consultation note will be provided to the requesting physician by way of shared Medical record or letter to requesting physician via [place] mail. Ms. Jean is a 87 year old female who is seen today for pre-operative cardiac clearance for bronchoscopy procedure for lung nodules (known pulmonary sarcoidosis, assess for this versus malignancy) and valvular heart disease, along with history of NSTEMI/multivessel coronary heart disease s/p multiple stents ~9 between [id number], hypertension, dyslipidemia, carotid disease, vasculitis,O SA, hypothyroidism, GERD, and diverticulosis. She was actually cleared by OSH cardiology few months ago based on OSH echo beginning of the year reporting mild-moderate , moderate MR, mild AR, TR and MS and moderate pulmonary hypertension. Her baseline is that she may get breathless after about 2 flights of stairs or few hundred yards of walking, and sometimes ankle swelling and usually takes furosemide 40mg daily, not particularly getting worse over the last year. Denies chest pain since the last PCI procedure, orthopnea/PND, palpitations, dizziness and syncope. NURSING INTAKE: Mrs. Jean is a 87 year old female from [place], [place], presenting today for cardiac clearance prior to diagnostic bronchoscopy with Dr. Andrei Leslie. He is requesting cardiac clearance due to aortic valve disease and Plavix therapy. Significant past medical history includes: - Aortic valve stenosis with regurgitation - Coronary artery disease s/p PCI/LEANDER to LAD (2003), PCI/LEANDER to mid RCA (11/2017), PCI/LEANDER to mid LCx (02/2018), PCI/LEANDER to mid RCA (07/2018), PTCA to mid RCA (04/2019), PCI/LEANDER to mid RCA (05/2019) and shockwave lithotripsy and IVUS guided PCI with LEANDER to LCx (04/09/2021) - Patient admits to 9 stents told but this is what was found per her records - Hypertension - Hyperlipidemia - Obstructive sleep apnea (on BiPAP) - Carotid artery disease - Hypothyroidism - Vasculitis - Mediastinal lymphadenopathy - Pulmonary sarcoidosis - Hemolytic anemia Family history significant for: Mother- Fatal heart attack at age 63, hypertension Half-sister- Hypertension Son- Hypertension Mrs. Jean states that she follows with a cardiology group in [place] [facility]. She states that she needs to have a diagnostic bronchoscopy. Dr. Andrei Leslie has requested cardiac clearance due to aortic valve disease and Plavix therapy. It appears that she was reviewed by MANUEL Garcia from the [facility] on 03/11/2023, with cardiac clearance and Plavix instructions written in a letter but for some reason she was still sent here to [facility] for cardiac clearance. When I asked Mrs. Jean about her aortic valve stenosis and regurgitation she states she was not aware of this but she states that she did know she had a heart murmur and that her [place] doctors know she has a heart murmur. She presents today with complaints of shortness of breath upon exertion, and bilateral lower extremity edema. She denies chest pain, lightheadedness, dizziness, near syncope or syncope. Mrs. Jean is retired. She does not follow a specific diet. She does not currently exercise. 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 Obesity, unspecified Obstructive sleep apnea BiPAP Other and unspecified syphilis Vasculitis (HCC) PAST SURGICAL HISTORY Procedure Laterality Date ANGIOPLASTY PCI 2003 PCI/LEANDER to LAD ANGIOPLASTY PCI 11/2017 PCI/LEANDER to mid RCA ANGIOPLASTY PCI 02/2018 PCI/LEANDER to mid LCx ANGIOPLASTY PCI 07/2018 PCI/LEANDER to mid RCA ANGIOPLASTY PCI 04/2019 PTCA to mid RCA ANGIOPLASTY PCI 05/2019 PCI/LEANDER to mid RCA ANGIOPLASTY PCI 04/09/2021 shockwave lithotripsy and IVUS guided PCI with LEANDER to LCx BIOPSY BREAST OPEN INCISIONAL Bx of breast, incisional COLONOSCOPY FLX DX W/COLLJ SPEC WHEN PFRMD 10/10/2004 Colonoscopy COLONOSCOPY FLX DX W/COLLJ SPEC WHEN PFRMD 10/30/2009 (more content not included)... [facility] 03-27-2023 History of Presen t illness Narrative Images from the original note were not included. [facility] Department of Cardiovascular Medicine SECTION OF CARDIOVASCULAR IMAGING OUTPATIENT VISIT DATE March 27, 2023 OUTPATIENT VISIT TYPE CONSULTATION REFERRING PHYSICIAN Andrei Sanford - Pulmonary Physician CHIEF COMPLAINT: Patient presents with: Valvular Heart Disease Pre-Op Exam HISTORY OF PRESENT ILLNESS: Cardiac consultation at the request of Dr Sanford. A copy of this consultation note will be provided to the requesting physician by way of shared Medical record or letter to requesting physician via [place] mail. Ms. Jean is a 87 year old female who is seen today for pre-operative cardiac clearance for bronchoscopy procedure for lung nodules (known pulmonary sarcoidosis, assess for this versus malignancy) and valvular heart disease, along with history of NSTEMI/multivessel coronary heart disease s/p multiple stents ~9 between [id number], hypertension, dyslipidemia, carotid disease, vasculitis,O SA, hypothyroidism, GERD, and diverticulosis. She was actually cleared by OSH cardiology few months ago based on OSH echo beginning of the year reporting mild-moderate , moderate MR, mild AR, TR and MS and moderate pulmonary hypertension. Her baseline is that she may get breathless after about 2 flights of stairs or few hundred yards of walking, and sometimes ankle swelling and usually takes furosemide 40mg daily, not particularly getting worse over the last year. Denies chest pain since the last PCI procedure, orthopnea/PND, palpitations, dizziness and syncope. NURSING INTAKE: Mrs. Jean is a 87 year old female from [place], [place], presenting today for cardiac clearance prior to diagnostic bronchoscopy with Dr. Andrei Leslie. He is requesting cardiac clearance due to aortic valve disease and Plavix therapy. Significant past medical history includes: - Aortic valve stenosis with regurgitation - Coronary artery disease s/p PCI/LEANDER to LAD (2003), PCI/LEANDER to mid RCA (11/2017), PCI/LEANDER to mid LCx (02/2018), PCI/LEANDER to mid RCA (07/2018), PTCA to mid RCA (04/2019), PCI/LEANDER to mid RCA (05/2019) and shockwave lithotripsy and IVUS guided PCI with LEANDER to LCx (04/09/2021) - Patient admits to 9 stents told but this is what was found per her records - Hypertension - Hyperlipidemia - Obstructive sleep apnea (on BiPAP) - Carotid artery disease - Hypothyroidism - Vasculitis - Mediastinal lymphadenopathy - Pulmonary sarcoidosis - Hemolytic anemia Family history significant for: Mother- Fatal heart attack at age 63, hypertension Half-sister- Hypertension Son- Hypertension Mrs. Jean states that she follows with a cardiology group in [place] [facility]. She states that she needs to have a diagnostic bronchoscopy. Dr. Andrei Leslie has requested cardiac clearance due to aortic valve disease and Plavix therapy. It appears that she was reviewed by MANUEL Garcia from the [place] [facility] on 03/11/2023, with cardiac clearance and Plavix instructions written in a letter but for some reason she was still sent here to [facility] for cardiac clearance. When I asked Mrs. Jean about her aortic valve stenosis and regurgitation she states she was not aware of this but she states that she did know she had a heart murmur and that her [place] doctors know she has a heart murmur. She presents today with complaints of shortness of breath upon exertion, and bilateral lower extremity edema. She denies chest pain, lightheadedness, dizziness, near syncope or syncope. Mrs. Jean is retired. She does not follow a specific diet. She does not currently exercise. 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 Obesity, unspecified Obstructive sleep apnea BiPAP Other and unspecified syphilis Vasculitis (HCC) PAST SURGICAL HISTORY Procedure Laterality Date ANGIOPLASTY PCI 2003 PCI/LEANDER to LAD ANGIOPLASTY PCI 11/2017 PCI/LEANDER to mid RCA ANGIOPLASTY PCI 02/2018 PCI/LEANDER to mid LCx ANGIOPLASTY PCI 07/2018 PCI/LEANDER to mid RCA ANGIOPLASTY PCI 04/2019 PTCA to mid RCA ANGIOPLASTY PCI 05/2019 PCI/LEANDER to mid RCA ANGIOPLASTY PCI 04/09/2021 shockwave lithotripsy and IVUS guided PCI with LEANDER to LCx BIOPSY BREAST OPEN INCISIONAL Bx of breast, incisional COLONOSCOPY FLX DX W/COLLJ SPEC WHEN PFRMD 10/10/2004 Colonoscopy COLONOSCOPY FLX DX W/COLLJ SPEC WHEN PFRMD 10/30/2009 Colonoscopy COLONOSCOPY FLX DX W/COLLJ SPEC WHEN PFRMD 08/24/2014 EGD TRANSORAL BIOPSY SINGLE/MULTIPLE 12/03/2005 EGD TRANSORAL BIOPSY SINGLE/MULTIPLE 08/24/2014 PAST SURGICAL HISTORY OF Right Axillary surgery, lymph node removal REMOVAL GALLBLADDER SOCIAL HISTORY Social History Tobacco Use Smoking status: Never Smokeless tobacco: Never Substance Use Topics Alcohol use: Not Currently Drug use: Never FAMILY HISTORY Problem Relation Age of Onset Hypertension Mother Heart Attack Mother 63 Fatal Colon Cancer Father other (alzheimer dementia [Other]) Maternal Grandfather Cancer Paternal Grandmother stomach cancer Hypertension Son No Known Problems Son Kidney Disease Son s/p transplant x2 Hypertension Half-sister No Known Problems Daughter ALLERGIES: ALLERGIES Allergen Reactions Iodinated Contrast * Rash Altace [Ramipril] Cough Iodine Ticagrelor Shortness of Breath Tramadol Other: See Comments Weakness, sedation, tremors MEDICATIONS: amLODIPine (NORVASC) 10 mg tablet Take 10 mg by mouth once daily. ascorbic acid, vitamin C, (VITAMIN C) 500 mg tablet Take 500 mg by mouth once daily. aspirin, enteric coated (ASPIRIN, ENTERIC COATED) 81 mg EC tablet Take 81 mg by mouth once daily. atorvastatin (LIPITOR) 40 mg tablet Take 40 mg by mouth daily at bedtime. calcium (elemental) ORAL Tab Take 200 mg by mouth. Each tablet contains 500 mg elemental calcium equivalent to 1250 mg calcium carbonate Takes 400 mg (200 mg x 2 tabs) at noon AND 200 mg (200 mg x 1 tab) during dinner cholecalciferol (VITAMIN D3) 1,000 unit tab tablet Take by mouth. clopidogrel (PLAVIX) 75 mg tablet Take 1 tablet by mouth once daily. coenzyme Q10 (COENZYME Q-10) 100 mg cap capsule Take one(1) tablet daily. fluticasone propionate (FLOVENT DISKUS) 250 mcg/actuation inhaler Inhale 1 Puff as instructed twice daily. folic acid 1 mg tablet Take 1 tablet by mouth once daily. furosemide (LASIX) 40 mg tablet Take 40 mg by mouth once daily. isosorbide mononitrate ER (IMDUR) 30 mg 24 hr tablet Take 30 mg by mouth twice daily. levothyroxine (SYNTHROID) 100 mcg tablet Take 100 mcg by mouth daily before breakfast. losartan (COZAAR) 50 mg tablet Take 50 mg by mouth twice daily. Magnesium 250 mg tab Take by mouth. methotrexate 2.5 mg tablet Take 6 tablets by mouth one time a week. metoprolol succinate ER (TOPROL XL) 100 mg Take 1 tablet by mouth every 12 hours. Jackackssghrh-Zfgtcdqq-Bvenya (MULTIVITAMIN 50 PLUS) tab Take 1 tablet by mouth once daily. pgznr-2z-yja-epa-fish oil-D3 360 mg-1,200 mg -1,000 unit cap Take 1 capsule by mouth once daily. Vitamin E, dl, acetate, (VITAMIN E) 400 unit capsule Take by mouth. REVIEW OF SYSTEMS: Positive in BOLD GENERAL: Weight loss or gain, Fever or Chills, Weakness and Sleep difficulties. HEENT: Headache, Glasses/Contacts, Eye pain, Impaired Vision, Trouble/Decreased Hearing, Ringing in Ears, Nosebleeds, Dental Problems, Bleeding Gums, Dentures NECK: Swelling, Pain, Stiffness RESPIRATORY: Cough, Blood in Sputum, Shortness of breath, Wheezing, Asthma, Sleep Apnea SKIN: Rashes, Itching GASTROINTESTINAL: Trouble swallowing, Heartburn, Change in bowel habits, Blood in stool, Dark black stools MUSCULOSKELETAL: Muscle or joint pain, Stiffness , Joint swelling NEUROLOGIC/PSYCHIATRIC: Weakness, Paralysis, Numbness, Tingling, Tremor, Nervousness, Anxiety, Depressed mood, Memory loss HEMATOLOGICAL/LYMPHATIC: Easy bruising , Easy bleeding ENDOCRINE: Heat or cold intolerance, Excessive sweating, Frequent urination, Frequent thirst PHYSICAL EXAMINATION: BP 157/52 (BP Site: Left Arm, BP Position: Sitting, BP Cuff Size: Regular Adult) Pulse (!) 51 Ht 154.9 cm (5' 1 ) Wt 69.4 kg (153 lb) SpO2 96% BMI 28.91 kg/m General: Well appearing, in no acute distress. Skin: No clubbing, no cyanosis. Neck: No jugular venous distention, no carotid bruits, carotids have a normal upstroke Lungs: Clear to auscultation bilaterally, no wheezing or rhonchi. Heart: Regular rhythm, PMI not displaced, S1 ejection systolic murmur to both carotids S2 ear;y diastolic murmur, no S3, no S4, no heaves, no rub. Extremities: No peripheral edema . Grade 2/4 distal pulses bilaterally. Neuro: Oriented to person, place and time, alert, cooperative, gait coordinated. CARDIOVASCULAR MEDICINE TESTING: OSH echo 06/2022 Laboratory test 03/25/2023: Hb 11.3, Cr 1.02/eGFR 54 ECG 03/27/2023: sinus bradycardia 51bpm, Last ECHO Result Conclusion ECHO Collected: 03/25/2023 1:01 PM (Final result) Impression: CONCLUSIONS: - Exam indication: Initial evaluation valvular heart disease - The left ventricle is mildly dilated. There is mild concentric left ventricular hypertrophy. Left ventricular systolic function is normal. EF = 63 5% (2D biplane) Indeterminate left ventricular diastolic dysfunction due to >2+ MR and >2+ AI. - The right ventricle is normal in size. Right ventricular systolic function is normal. - The left atrial cavity is severely dilated. - The right atrial cavity is mildly dilated. - Tricuspid aortic valve. There is moderate (2+) aortic valve regurgitation. There is moderately severe aortic valve stenosis. AV area is 0.82 cm (0.47 cm /m ) by continuity, VTI. The peak gradient is 68 mmHg, the mean gradient is 37 mmHg and the dimensionless valve index is 0.29. - Estimated right ventricular systolic pressure is 54 mmHg consistent with moderate pulmonary hypertension. Estimated right atrial pressure is 3 mmHg (although IVC not seen). - The patient has not had a prior CC echocardiographic exam for comparison. * * * Final * * * I have personally reviewed the Electrocardiogram, Laboratory Testing, and Echocardiogram. IMPRESSION: Ms. Jean is a 87 year old female here for pre-operative cardiac clearance for bronchoscopy procedure for lung nodules (known pulmonary sarcoidosis, assess for this versus malignancy) and valvular heart disease (mainly aortic stenosis), along with history of NSTEMI/multivessel coronary heart disease s/p multiple stents ~9 between [id number], hypertension, dyslipidemia, carotid disease, vasculitis, ABDIAS, hypothyroidism, GERD, and diverticulosis. Symptoms zamora she has at least NYHA class II dyspnea, no chest pain. Echo this week unfortunately showed severe aortic stenosis, with moderate aortic regurgitation, mild mitral and tricuspid regurgitation. She warrants aortic valve procedure for her severe aortic stenosis with symptoms, and TAVR preferred over aortic valve surgery given her age and co-morbidities so I will refer her to the TAVR team today for managing this. They will need to do CTA to evaluate valve sizing and vascular access, possibly repeat cath and other tests. She is not cleared for any general anesthesia procedure including bronchoscopy until this is fixed and I will inform Dr Sanford of this. Given her extensive heart artery disease and elevated blood pressure, I think it reasonable to continue DAPT, will increase her atorvastatin to 80mg daily for cholesterol and increase losartan to 100mg daily for blood pressure, stop calcium supplements which can accelerate aortic stenosis/heart artery disease, along with lifestyle measures below. PLAN AND RECOMMENDATIONS: Refer to structural heart team for evaluation towards TAVR procedure. Will need CTA, and consider repeat cath, PFTs and other tests. Aortic valve intervention is necessary before cardiac clearance for general anesthesia procedure like bronchoscopy is granted. Increase atorvastatin to 80mg daily and losartan to 100mg daily. Blood pressure target <140/90 mmHg. Stop calcium supplements (continue vitamins). Lifestyle measures include avoid strenuous activities though stay active and healthy diet. Let me know if worsening cardiac symptoms (breathlessness, chest pain, dizziness/faints) that may warrant earlier review and intervention. I personally interviewed, confirmed and edited the above information as obtained by others. CONTACT INFORMATION: Serafin Yun MD, FRACP, FACC, FESC, FASE Staff Director Adult, Section of Cardiovascular Imaging, Department of Cardiovascular Medicine, Heart, Vascular and Thoracic [place], [facility] Warehouse Receiving Supervisorcredit control clerk, [facility], [facility] Desk [facility], [address] [place] [address] Appointments: [phone], Office phone: [phone], Office fax: [phone] documented in this encounter [facility] 03-06-2023 Note HNO ID: [id number] Author: Dung Lentz MD Service: ? Author Type: Physician Type: Progress Notes Filed: 03/06/2023 3:26 PM Note Text: Dear Dr. Andrei Leslie, Thank you for this interesting e-consult. Noted peripheral lung nodule with possible mediastinal adenopathy. Will peripheral guided bronchoscopy with EBUS mediastinal staging. We will await cardiac clearance prior to scheduling. I have submitted this note to our bronchoscopy scheduling team. Feel free to review it if you feel it is necessary. Thank you again. Dung De Santiago MD 03/06/2023 9:42 AM TO BRONCHOSCOPY TEAM: Bronchoscopy Request: Need Clearance Please schedule patient for the following: Outpatient Visit: Pre-op HANDP with LARISA: In-Person only, In-Person only Bronchoscopy Procedures: Staging EBUS Navigation Bronchoscopy (Illumisite) Robotic Bronchoscopy Auris (JORJE/SS/MM/FA) Robotic Bronchoscopy ION (TG/CG/LL/AM/MA/SL/SS/JORJE/SG/BB/F A) Timing: Next available Time Allotment/Tier: If Robot AND Staging EBUS, TIER 3: 3 HOUR; Otherwise (Illumisite + Staging EBUS), TIER 2: 2 HOUR Physician Performing Bronchoscopy: If ION Robot, TG, FA, JORJE, SS, CG, MA, SG, SL, or LL; If Robot ([place]), MM, FA, JORJE, SS, CG, SL or LL; Otherwise, Bronch A, B or C Anesthesia Type: General Special Requests: None Needs Labs: Yes, CBC and BMP Needs EKG: No Needs CT prior: Yes EMN Bronchoscopy Protocol Chest CT Does the pt need cardiac clearance? Yes-ordered by Dr. Sanford Is he/she on anticoagulants/anti-plt therapy? Yes Plavix or medications alike see cardiac clearance above Nursing Considerations: (ie: care home, TB, respiratory isolation, etc.) none Diagnosis/Reason for Bronchoscopy: Lung nodule(s)/Mass, needs staging and diagnosis Referred by: Andrei Leslie Reviewed by: Dung Lentz MD ADDENDUM: CBC with diff: WBC 6.74 12/31/2022 RBC 3.47 12/31/2022 Hemoglobin 10.8 12/31/2022 Hematocrit 31.7 12/31/2022 MCV 91.4 12/31/2022 MCH 31.1 12/31/2022 MCHC 34.1 12/31/2022 RDW-CV 16.1 12/31/2022 Platelet Count 222 12/31/2022 MPV 10.1 12/31/2022 Neut% 62.2 12/31/2022 Lymph% 20.5 12/31/2022 [place]% 7.6 12/31/2022 Eosin% 1.0 07/26/2021 Baso% 1.2 12/31/2022 Abs Neut (ANC) 4.20 12/31/2022 Abs [place] 0.51 12/31/2022 Abs Eosin 0.55 12/31/2022 Abs Baso 0.08 12/31/2022 Potassium Date Value Ref Range Status 12/31/2022 4.1 3.7 - 5.1 mmol/L Final 11/12/2022 4.2 3.7 - 5.1 mmol/L Final 10/11/2022 4.0 3.7 - 5.1 mmol/L Final Sodium Date Value Ref Range Status 12/31/2022 141 136 - 144 mmol/L Final 11/12/2022 139 136 - 144 mmol/L Final 10/11/2022 139 136 - 144 mmol/L Final BUN Date Value Ref Range Status 12/31/2022 17 7 - 21 mg/dL Final Creatinine Date Value Ref Range Status 12/31/2022 0.96 0.58 - 0.96 mg/dL Final 11/12/2022 0.96 0.58 - 0.96 mg/dL Final 10/11/2022 1.00 (H) 0.58 - 0.96 mg/dL Final 07/23/2022 1.00 (H) 0.58 - 0.96 mg/dL Final [facility] 03-06-2023 History of Presen t illness Narrative Dear Dr. Andrei Leslie, Thank you for this interesting e-consult. Noted peripheral lung nodule with possible mediastinal adenopathy. Will peripheral guided bronchoscopy with EBUS mediastinal staging. We will await cardiac clearance prior to scheduling. I have submitted this note to our bronchoscopy scheduling team. Feel free to review it if you feel it is necessary. Thank you again. Dung De Santiago MD 03/06/2023 9:42 AM TO BRONCHOSCOPY TEAM: Bronchoscopy Request: Need Clearance Please schedule patient for the following: Outpatient Visit: Pre-op H&P with LARISA: In-Person only, In-Person only Bronchoscopy Procedures: Staging EBUS Navigation Bronchoscopy (Illumisite) Robotic Bronchoscopy Auris (JORJE/SS/MM/FA) Robotic Bronchoscopy ION (TG/CG/LL/AM/MA/SL/SS/JORJE/SG/BB/F A) Timing: Next available Time Allotment/Tier: If Robot & Staging EBUS, TIER 3: 3 HOUR; Otherwise (Illumisite + Staging EBUS), TIER 2: 2 HOUR Physician Performing Bronchoscopy: If ION Robot, TG, FA, JORJE, SS, CG, MA, SG, SL, or LL; If Robot ([place]), MM, FA, JORJE, SS, CG, SL or LL; Otherwise, Bronch A, B or C Anesthesia Type: General Special Requests: None Needs Labs: Yes, CBC and BMP Needs EKG: No Needs CT prior: Yes EMN Bronchoscopy Protocol Chest CT Does the pt need cardiac clearance? Yes-ordered by Dr. Sanford Is he/she on anticoagulants/anti-plt therapy? Yes Plavix or medications alike see cardiac clearance above Nursing Considerations: (ie: care home, TB, respiratory isolation, etc.) none Diagnosis/Reason for Bronchoscopy: Lung nodule(s)/Mass, needs staging and diagnosis Referred by: Andrei Leslie Reviewed by: Dung Lentz MD ADDENDUM: CBC with diff: WBC 6.74 12/31/2022 RBC 3.47 12/31/2022 Hemoglobin 10.8 12/31/2022 Hematocrit 31.7 12/31/2022 MCV 91.4 12/31/2022 MCH 31.1 12/31/2022 MCHC 34.1 12/31/2022 RDW-CV 16.1 12/31/2022 Platelet Count 222 12/31/2022 MPV 10.1 12/31/2022 Neut% 62.2 12/31/2022 Lymph% 20.5 12/31/2022 [place]% 7.6 12/31/2022 Eosin% 1.0 07/26/2021 Baso% 1.2 12/31/2022 Abs Neut (ANC) 4.20 12/31/2022 Abs [place] 0.51 12/31/2022 Abs Eosin 0.55 12/31/2022 Abs Baso 0.08 12/31/2022 Potassium Date Value Ref Range Status 12/31/2022 4.1 3.7 - 5.1 mmol/L Final 11/12/2022 4.2 3.7 - 5.1 mmol/L Final 10/11/2022 4.0 3.7 - 5.1 mmol/L Final Sodium Date Value Ref Range Status 12/31/2022 141 136 - 144 mmol/L Final 11/12/2022 139 136 - 144 mmol/L Final 10/11/2022 139 136 - 144 mmol/L Final BUN Date Value Ref Range Status 12/31/2022 17 7 - 21 mg/dL Final Creatinine Date Value Ref Range Status 12/31/2022 0.96 0.58 - 0.96 mg/dL Final 11/12/2022 0.96 0.58 - 0.96 mg/dL Final 10/11/2022 1.00 (H) 0.58 - 0.96 mg/dL Final 07/23/2022 1.00 (H) 0.58 - 0.96 mg/dL Final documented in this encounter [facility] 03-03-2023 Miscellaneous Notes Called Mrs. Jean to discuss growing RUL lung nodule. Needs a diagnostic bronchoscopy. Also needs cardiology clearance due to AR and Plavix. Tried to reach [facility] at [phone], provider Joi Rivera, per patient request, but unable to do so. Will enter new cardiology request for clearance. Andrei Leslie MD March 03, 2023 3:29 PM documented in this encounter [facility] 02-26-2023 Note HNO ID: [id number] Author: Rosette Bradford RT(R) Service: ? Author Type: Strategic Client Executive Type: Progress Notes Filed: 02/26/2023 3:54 PM Note Text: Radiology Service Progress Note PATIENT NAME: Precious Jean DATE OF SERVICE: February 26, 2023 TIME: 3:54 PM PATIENT IDENTITY VERIFICATION COMPLETED USING TWO (2) IDENTIFIERS: Name and Date of confirmed by patient verbally. FALL SCREENING: Has the patient had 2 falls in the last year or 1 fall with injury or currently using an Ambulatory Assistive Device (Walker, Cane, Wheelchair, Crutches, etc.)? No PATIENT GENDER DATA: Female. status: : No status: NO. PATIENT RELEVANT IMPLANT DATA REVIEWED: Yes RADIOLOGY DEPARTMENT: CT; Exam(s) Completed: Chest PERIPHERAL IV DATA: Not applicable SIGNED BY: RT Franko(R) February 26, 2023 3:54 PM [facility] 02-26-2023 History of Presen t illness Narrative Radiology Service Progress Note PATIENT NAME: Precious Jean DATE OF SERVICE: February 26, 2023 TIME: 3:54 PM PATIENT IDENTITY VERIFICATION COMPLETED USING TWO (2) IDENTIFIERS: Name and Date of confirmed by patient verbally. FALL SCREENING: Has the patient had 2 falls in the last year or 1 fall with injury or currently using an Ambulatory Assistive Device (Walker, Cane, Wheelchair, Crutches, etc.)? No PATIENT GENDER DATA: Female. status: : No status: NO. PATIENT RELEVANT IMPLANT DATA REVIEWED: Yes RADIOLOGY DEPARTMENT: CT; Exam(s) Completed: Chest PERIPHERAL IV DATA: Not applicable SIGNED BY: RT Franko(Mario) February 26, 2023 3:54 PM documented in this encounter [facility] 01-15-2023 Note HNO ID: [id number] Author: Andrei Desai MD Service: ? Author Type: Physician Type: Progress Notes Filed: 01/15/2023 11:40 AM Note Text: Respiratory [place] Precious Jean is a 87 year old female here for evaluation by the [facility] Sarcoidosis Team. Consultation requested by Dr. Araceli Hernandez and my final recommendations will be communicated back to the requesting physician by way of shared Medical record or letter via US mail. HISTORY OF PRESENT ILLNESS: This is a 87 year old year-old female coming to our Sarcoidosis Center with the following history of present illness: followed by Dr. Ortiz Hernandez for presumptive sarcoidosis. Last seen on 10/2022 when she was having more respiratory symptoms, more cough. Off prednisone since Jul 2022. Mild SOB on exertion. She was doing well on methotrexate at that time. Able to taper off prednisone on that. Her main goal today is to get rid of her cough. Productive some times. Clear phlegm. Mainly at night. It started a month or so. No sinus symptoms. No URI symptoms initially. No GERD symptoms. Skin bumps on arms and legs, with some itching. No eye redness, floatters, blurry vision. No palpitations, syncope, lightheadedness. Has 9 stents. Sarcoidosis History: Date of symptom onset: 08/2020 Date of diagnosis: 02/2021 How was the diagnosis confirmed?:Clinical What organs are affected (in your opinion)?: Lungs, Skin Interval development of possible Sarcoidosis manifestations (related to previously uninvolved organs): Other: cough Immediate relative with sarcoidosis: None Pulmonary hypertension: No suspicion Sarcoidosis Therapies: Past medications: Methotrexate , Prednisone Current medications: Methotrexate Treatment-defining organ: Lungs Is the patient being treated with oxygen therapy?: No MRC Dyspnea Scale: 1. Not troubled by breathlessness except on strenuous exercise PAST MEDICAL HISTORY Diagnosis Date Coronary atherosclerosis of unspecified type of vessel, [place] or graft 03/13/2005 Dr. Madera Diverticulosis of colon (without mention of hemorrhage) Diverticulosis Esophagitis, unspecified Impaired fasting glucose 03/26/2006 Obesity, unspecified Other and unspecified hyperlipidemia Other and unspecified syphilis Snoring Unspecified essential hypertension Unspecified hypothyroidism PAST SURGICAL HISTORY Procedure Laterality Date BIOPSY BREAST OPEN INCISIONAL Bx of breast, incisional COLONOSCOPY FLX DX W/COLLJ SPEC WHEN PFRMD 10/10/2004 Colonoscopy COLONOSCOPY FLX DX W/COLLJ SPEC WHEN PFRMD 10/30/2009 Colonoscopy COLONOSCOPY FLX DX W/COLLJ SPEC WHEN PFRMD 08-24-14 EGD TRANSORAL BIOPSY SINGLE/MULTIPLE 12/03/05 EGD TRANSORAL BIOPSY SINGLE/MULTIPLE 08-24-14 HEART SURGERY HX 2004 cardiac stent placement x 3 LAPAROSCOPY SURG CHOLECYSTECTOMY 2005 Cholecystectomy, lap SOCIAL HISTORY Social History Tobacco Use Smoking status: Never Smokeless tobacco: Never Alcohol Use: No Drug Use: Not on file FAMILY HISTORY Problem Relation Age of Onset Colon Cancer Father Hypertension Mother Heart Mother mi at age 63 Hypertension Sister Cancer Paternal Grandmother stomach cancer Hypertension Son other (alzheimer dementia [Other]) Maternal Grandfather ALLERGIES Allergen Reactions Iodinated Contrast * Rash Altace [Ramipril] Cough Iodine Ticagrelor Shortness of Breath Tramadol Other: See Comments Weakness, sedation, tremors CURRENT MEDICATIONS: folic acid 1 mg tablet Take 1 tablet by mouth once daily. methotrexate 2.5 mg tablet Take 6 tablets by mouth one time a week. amLODIPine (NORVASC) 10 mg tablet Take 10 mg by mouth once daily. predniSONE (DELTASONE) 1 mg tablet Take 2 tablets by mouth once daily. (Patient taking differently: Take 1 mg by mouth once daily.) ZINC ORAL Take by mouth. furosemide (LASIX) 40 mg tablet Take 40 mg by mouth once daily. pantoprazole DR (PROTONIX) 40 mg tablet Take 40 mg by mouth once daily. cholecalciferol (VITAMIN D3) 1,000 unit tab tablet Take by mouth. Vitamin E, dl, acetate, (VITAMIN E) 400 unit capsule Take by mouth. Magnesium 250 mg tab Take by mouth. predniSONE (DELTASONE) 1 mg tablet Take 4 tablets by mouth once daily. Patient taking w/ 5mg tablet for a total of 9 daily. clopidogrel (PLAVIX) 75 mg tablet Take 1 tablet by mouth once daily. aspirin, enteric coated (ASPIRIN, ENTERIC COATED) 81 mg EC tablet Take 81 mg by mouth once daily. atorvastatin (LIPITOR) 40 mg tablet Take 40 mg by mouth daily at bedtime. levothyroxine (SYNTHROID) 100 mcg tablet Take 100 mcg by mouth daily before breakfast. losartan (COZAAR) 50 mg tablet Take 50 mg by mouth twice daily. metoprolol succinate ER (TOPROL XL) 50 mg 24 hr tablet Take 100 mg by mouth twice daily. Hold if HR < 60 bpm ferrous sulfate 325 mg (65 mg iron) tablet Take 325 mg by mouth once daily. ascorbic acid, vitamin C, (VITAMIN C) 500 mg tablet Take (more content not included)... [facility] 01-15-2023 Instructions Andrei Desai MD - 01/15/2023 11:32 AM EDT - start Flovent as prescribed - CT chest in February at [place] - Return to see me in about 3 months documented in this encounter [facility] 01-15-2023 History of Presen t illness Narrative Images from the original note were not included. Respiratory [place] Precious Jean is a 87 year old female here for evaluation by the [facility] Sarcoidosis Team. Consultation requested by Dr. Araceli Hernandez and my final recommendations will be communicated back to the requesting physician by way of shared Medical record or letter via US mail. HISTORY OF PRESENT ILLNESS: This is a 87 year old year-old female coming to our Sarcoidosis Center with the following history of present illness: followed by Dr. Ortiz Hernandez for presumptive sarcoidosis. Last seen on 10/2022 when she was having more respiratory symptoms, more cough. Off prednisone since Jul 2022. Mild SOB on exertion. She was doing well on methotrexate at that time. Able to taper off prednisone on that. Her main goal today is to get rid of her cough. Productive some times. Clear phlegm. Mainly at night. It started a month or so. No sinus symptoms. No URI symptoms initially. No GERD symptoms. Skin bumps on arms and legs, with some itching. No eye redness, floatters, blurry vision. No palpitations, syncope, lightheadedness. Has 9 stents. Sarcoidosis History: Date of symptom onset: 08/2020 Date of diagnosis: 02/2021 How was the diagnosis confirmed?:Clinical What organs are affected (in your opinion)?: Lungs, Skin Interval development of possible Sarcoidosis manifestations (related to previously uninvolved organs): Other: cough Immediate relative with sarcoidosis: None Pulmonary hypertension: No suspicion Sarcoidosis Therapies: Past medications: Methotrexate , Prednisone Current medications: Methotrexate Treatment-defining organ: Lungs Is the patient being treated with oxygen therapy?: No MRC Dyspnea Scale: 1. Not troubled by breathlessness except on strenuous exercise PAST MEDICAL HISTORY Diagnosis Date Coronary atherosclerosis of unspecified type of vessel, [place] or graft 03/13/2005 Dr. Madera Diverticulosis of colon (without mention of hemorrhage) Diverticulosis Esophagitis, unspecified Impaired fasting glucose 03/26/2006 Obesity, unspecified Other and unspecified hyperlipidemia Other and unspecified syphilis Snoring Unspecified essential hypertension Unspecified hypothyroidism PAST SURGICAL HISTORY Procedure Laterality Date BIOPSY BREAST OPEN INCISIONAL Bx of breast, incisional COLONOSCOPY FLX DX W/COLLJ SPEC WHEN PFRMD 10/10/2004 Colonoscopy COLONOSCOPY FLX DX W/COLLJ SPEC WHEN PFRMD 10/30/2009 Colonoscopy COLONOSCOPY FLX DX W/COLLJ SPEC WHEN PFRMD 08-24-14 EGD TRANSORAL BIOPSY SINGLE/MULTIPLE 12/03/05 EGD TRANSORAL BIOPSY SINGLE/MULTIPLE 08-24-14 HEART SURGERY HX 2004 cardiac stent placement x 3 LAPAROSCOPY SURG CHOLECYSTECTOMY 2005 Cholecystectomy, lap SOCIAL HISTORY Social History Tobacco Use Smoking status: Never Smokeless tobacco: Never Alcohol Use: No Drug Use: Not on file FAMILY HISTORY Problem Relation Age of Onset Colon Cancer Father Hypertension Mother Heart Mother mi at age 63 Hypertension Sister Cancer Paternal Grandmother stomach cancer Hypertension Son other (alzheimer dementia [Other]) Maternal Grandfather ALLERGIES Allergen Reactions Iodinated Contrast * Rash Altace [Ramipril] Cough Iodine Ticagrelor Shortness of Breath Tramadol Other: See Comments Weakness, sedation, tremors CURRENT MEDICATIONS: folic acid 1 mg tablet Take 1 tablet by mouth once daily. methotrexate 2.5 mg tablet Take 6 tablets by mouth one time a week. amLODIPine (NORVASC) 10 mg tablet Take 10 mg by mouth once daily. predniSONE (DELTASONE) 1 mg tablet Take 2 tablets by mouth once daily. (Patient taking differently: Take 1 mg by mouth once daily.) ZINC ORAL Take by mouth. furosemide (LASIX) 40 mg tablet Take 40 mg by mouth once daily. pantoprazole DR (PROTONIX) 40 mg tablet Take 40 mg by mouth once daily. cholecalciferol (VITAMIN D3) 1,000 unit tab tablet Take by mouth. Vitamin E, dl, acetate, (VITAMIN E) 400 unit capsule Take by mouth. Magnesium 250 mg tab Take by mouth. predniSONE (DELTASONE) 1 mg tablet Take 4 tablets by mouth once daily. Patient taking w/ 5mg tablet for a total of 9 daily. clopidogrel (PLAVIX) 75 mg tablet Take 1 tablet by mouth once daily. aspirin, enteric coated (ASPIRIN, ENTERIC COATED) 81 mg EC tablet Take 81 mg by mouth once daily. atorvastatin (LIPITOR) 40 mg tablet Take 40 mg by mouth daily at bedtime. levothyroxine (SYNTHROID) 100 mcg tablet Take 100 mcg by mouth daily before breakfast. losartan (COZAAR) 50 mg tablet Take 50 mg by mouth twice daily. metoprolol succinate ER (TOPROL XL) 50 mg 24 hr tablet Take 100 mg by mouth twice daily. Hold if HR < 60 bpm ferrous sulfate 325 mg (65 mg iron) tablet Take 325 mg by mouth once daily. ascorbic acid, vitamin C, (VITAMIN C) 500 mg tablet Take 500 mg by mouth once daily. Ogzxbxfxtfdmb-Cwargppf-Dzxmay (MULTIVITAMIN 50 PLUS) tab Take 1 tablet by mouth once daily. isosorbide mononitrate ER (IMDUR) 30 mg 24 hr tablet Take 30 mg by mouth twice daily. hgbxw-6e-hvv-epa-fish oil-D3 360 mg-1,200 mg -1,000 unit cap Take 1 capsule by mouth once daily. coenzyme Q10 (COENZYME Q-10) 100 mg cap capsule Take one(1) tablet daily. calcium (elemental) ORAL Tab Take 200 mg by mouth. Each tablet contains 500 mg elemental calcium equivalent to 1250 mg calcium carbonate Takes 400 mg (200 mg x 2 tabs) at noon AND 200 mg (200 mg x 1 tab) during dinner FOLIC ACID 400 MCG ORAL TAB Take 0.4 mg by mouth once daily. PHYSICAL EXAM: BP 147/65 Pulse 50 Wt 153 lb (69.4kg) SpO2 98% General appearance: Well appearing, alert, in no acute distress, well-hydrated, well nourished. Skin: Skin color, texture, turgor normal, no suspicious rashes or lesions Head: Normocephalic, no masses, lesions, tenderness or abnormalities Eyes: No jaundice, no redness. Oropharynx: Lips, mucosa, and tongue normal, teeth and gums normal, oropharynx normal Neck: No adenopathy, no tenderness Lungs: Lungs clear to auscultation. No wheezing, rhonchi, rales Heart: RRR without murmur, gallop, or rubs. No ectopy Abdomen: Abdomen soft, non-tender. Extremities: No deformities, edema, skin discoloration, clubbing or cyanosis. Musculoskeletal: No joint swelling, deformity, or tenderness Neuro: Gait normal, grossly non-focal. Data Reviewed (in addition to that noted in HPI, and Past histories above): Labs reviewed with Hb 10.8 PFT with normal jennyfer, moderately reduced DLCO CT chest from 03/2020 independently reviewed by me, bilateral nodules and GGO, nonspecific, and mediastinal adenopathy CT chest from 11/2022 independently reviewed by me, two new nodules in RUL (10 mm and 6 mm), but otherwise stable, with resolution of bilateral GGO seen on CT from 07/2021 ASSESSMENT Patient Active Problems That Need Monitoring: Diagnosis Sarcoidosis Priority: A Overview Note: Presumptive sarcoidosis. Doing well on methotrexate. Lung and skin involvement. Assessment & Plan Note: - start Flovent as prescribed to treat chronic cough - CT chest in February at [place] to follow up new RUL nodules - OK to use OTC steroid cream for skin bumps and itching - Return to see me in about 3 months Andrei Leslie, MD January 15, 2023 11:40 AM documented in this encounter [facility] 01-14-2023 Note HNO ID: [id number] Author: Marlo Larson RPFT Service: ? Author Type: Respiratory Therapist Type: Progress Notes Filed: 01/14/2023 12:00 PM Note Text: PULM FUNCTION SMARTBLOCK: Provider: Andrei Desai MD Assisting Tech: Petjojo, Marlo, RPFT Spirometry: 1 DLCO: 1 [facility] 01-14-2023 History of Presen t illness Narrative PULM FUNCTION SMARTBLOCK: Provider: Andrei Desai MD Assisting Tech: Petush, Marlo, RPFT Spirometry: 1 DLCO: 1 documented in this encounter [facility] 11-29-2022 Miscellaneous Notes phone call to patient plan discussed with patient - consult hide dyer The following approved medication requests have been transmitted electronically. Requested Prescriptions Signed Prescriptions Disp Refills folic acid 1 mg tablet 90 tablet 1 Sig: Take 1 tablet by mouth once daily. Authorizing Provider: ARACELI GONSALVES MD documented in this encounter [facility] 11-15-2022 Note HNO ID: [id number] Author: RT Anna(R) Service: ? Author Type: Strategic Client Executive Type: Progress Notes Filed: 11/15/2022 1:53 PM Note Text: Radiology Service Progress Note PATIENT NAME: Precious Jean DATE OF SERVICE: November 15, 2022 TIME: 1:53 PM PATIENT IDENTITY VERIFICATION COMPLETED USING TWO (2) IDENTIFIERS: Name and Date of confirmed by patient verbally. FALL SCREENING: Has the patient had 2 falls in the last year or 1 fall with injury or currently using an Ambulatory Assistive Device (Walker, Cane, Wheelchair, Crutches, etc.)? No PATIENT GENDER DATA: Female. status: : No status: NO. PATIENT RELEVANT IMPLANT DATA REVIEWED: Yes RADIOLOGY DEPARTMENT: CT; Exam(s) Completed: Chest PERIPHERAL IV DATA: Not applicable SIGNED BY: RT Franko(R) November 15, 2022 1:53 PM [facility] 11-15-2022 History of Presen t illness Narrative Radiology Service Progress Note PATIENT NAME: Precious Jean DATE OF SERVICE: November 15, 2022 TIME: 1:53 PM PATIENT IDENTITY VERIFICATION COMPLETED USING TWO (2) IDENTIFIERS: Name and Date of confirmed by patient verbally. FALL SCREENING: Has the patient had 2 falls in the last year or 1 fall with injury or currently using an Ambulatory Assistive Device (Walker, Cane, Wheelchair, Crutches, etc.)? No PATIENT GENDER DATA: Female. status: : No status: NO. PATIENT RELEVANT IMPLANT DATA REVIEWED: Yes RADIOLOGY DEPARTMENT: CT; Exam(s) Completed: Chest PERIPHERAL IV DATA: Not applicable SIGNED BY: RT Franko(R) November 15, 2022 1:53 PM documented in this encounter [facility] 11-12-2022 Note HNO ID: [id number] Author: Araceli Hernandez MD Service: ? Author Type: Physician Type: Progress Notes Filed: 12/01/2022 5:10 PM Note Text: Precious Jean is a 87 year old female here for follow-up of sarcoidosis Evaluation Date: 11/12/2022 Last Visit in Rheumatology: 07/23/2022 (with Araceli Hernandez) ACTIVE PROBLEM LIST Malnutrition of Moderate Degree (Hcc) - 04/08/2021 Chest Pain - 04/07/2021 Left-Sided Low Back Pain With Left-Sided Sciatica - 05/21/2016 Palpitations - 02/06/2011 Comment: [facility] Dr Villegas Coronary Artery Disease - 02/04/2011 Hypercholesterolemia - 02/04/2011 Fever - 03/14/2009 Impaired Fasting Glucose - 03/26/2006 Esophagitis, Unspecified - 12/03/2005 Coronary Atherosclerosis of Unspecified Type of Vessel, [place] Or Graft - 03/13/2005 Unspecified Hemorrhoids Without Mention of Complication Comment: Hemorrhoids Diverticulosis of Colon (Without Mention of Hemorrhage) Comment: Diverticulosis Mixed Hyperlipidemia Obesity, Unspecified Hypothyroidism Essential Hypertension INTERVAL HX: At today's visit Precious Jean states that she has been having increased respiratory symptoms, mainly a daily cough She had an episode of severe coughing with phlegm and went to the ER - thought to have a viral illness - this happened about 3 weeks ago and lasted for about a week. Since then has lost her appetite and feels weak. Off prednisone since early Jul 2022 Mild SOB with exertion Review of Systems CONSTITUTION: Negative for: Fever and Recent weight change HEENT: Negative for: Nosebleeds, Mouth sores, Trouble swallowing and Dry mouth RESPIRATORY: Positive for: Cough Negative for: Shortness of breath, Pain with breathing and Coughing up blood GASTROINTESTINAL: Negative for: Melena, Diarrhea, Heartburn and Abdominal pain MUSCULOSKELETAL: Positive for: Arthralgias, Myalgias, Muscle weakness and Morning Joint Stiffness Negative for: Joint swelling NEUROLOGICAL: Negative for: Headaches, Numbness and Memory loss SKIN: Negative for: Rash, Skin changes, Hair loss and Nail changes EYES: Positive for: Eye dryness Negative for: Eye pain, Eye redness and visual disturbance CARDIOVASCULAR: Negative for: Chest pain and Leg swelling GENITOURINARY: Positive for: Dysuria Negative for: Hematuria HEMATOLOGIC/LYMPHATIC: Negative for: Swollen glands REVIEW OF FAMILY AND/OR SOCIAL HISTORY: The family and/or social were reviewed at todays visit and no changes were noted. Date of last DEXA: 08/12/2022 ([facility]) Current Outpatient Medications Medication Sig methotrexate 2.5 mg tablet Take 6 tablets by mouth one time a week. amLODIPine (NORVASC) 10 mg tablet Take 10 mg by mouth once daily. folic acid 1 mg tablet Take 1 tablet by mouth once daily. furosemide (LASIX) 40 mg tablet Take 40 mg by mouth once daily. cholecalciferol (VITAMIN D3) 1,000 unit tab tablet Take by mouth. Vitamin E, dl, acetate, (VITAMIN E) 400 unit capsule Take by mouth. Magnesium 250 mg tab Take by mouth. clopidogrel (PLAVIX) 75 mg tablet Take 1 tablet by mouth once daily. aspirin, enteric coated (ASPIRIN, ENTERIC COATED) 81 mg EC tablet Take 81 mg by mouth once daily. atorvastatin (LIPITOR) 40 mg tablet Take 40 mg by mouth daily at bedtime. levothyroxine (SYNTHROID) 100 mcg tablet Take 100 mcg by mouth daily before breakfast. losartan (COZAAR) 50 mg tablet Take 50 mg by mouth twice daily. metoprolol succinate ER (TOPROL XL) 50 mg 24 hr tablet Take 100 mg by mouth twice daily. Hold if HR < 60 bpm ascorbic acid, vitamin C, (VITAMIN C) 500 mg tablet Take 500 mg by mouth once daily. Gpptdwjsrqgui-Xjvzpwfd-Vyhhiu (MULTIVITAMIN 50 PLUS) tab Take 1 tablet by mouth once daily. isosorbide mononitrate ER (IMDUR) 30 mg 24 hr tablet Take 30 mg by mouth twice daily. nwlwl-5a-bjx-epa-fish oil-D3 360 mg-1,200 mg -1,000 unit cap Take 1 capsule by mouth once daily. coenzyme Q10 (COENZYME Q-10) 100 mg cap capsule Take one(1) tablet daily. calcium (elemental) ORAL Tab Take 200 mg by mouth. Each tablet contains 500 mg elemental calcium equivalent to 1250 mg calcium carbonate Takes 400 mg (200 mg x 2 tabs) at noon AND 200 mg (200 mg x 1 tab) during dinner predniSONE (DELTASONE) 1 mg tablet Take 2 tablets by mouth once daily. (Patient taking differently: Take 1 mg by mouth once daily.) ZINC ORAL Take by mouth. pantoprazole DR (PROTONIX) 40 mg tablet Take 40 mg by mouth once daily. predniSONE (DELTASONE) 1 mg tablet Take 4 tablets by mouth once daily. Patient taking w/ 5mg tablet for a total of 9 daily. ferrous sulfate 325 mg (65 mg iron) tablet Take 325 mg by mouth once daily. FOLIC ACID 400 MCG ORAL TAB Take 0.4 mg by mouth once daily. No current facility-administered medications for this visit. PHYSICAL EXAMINATION Blood pressure 139/56, pulse (!) 54, temperature 36.3 ?C (97.4 ?F), temperature source Temporal, weight 70.9 kg (156 lb 6.4 oz). (more content not included)... [facility] 11-12-2022 History of Presen t illness Narrative Precious Jean is a 87 year old female here for follow-up of sarcoidosis Evaluation Date: 11/12/2022 Last Visit in Rheumatology: 07/23/2022 (with Araceli Hernandez) ACTIVE PROBLEM LIST Malnutrition of Moderate Degree (Hcc) - 04/08/2021 Chest Pain - 04/07/2021 Left-Sided Low Back Pain With Left-Sided Sciatica - 05/21/2016 Palpitations - 02/06/2011 Comment: [facility] Dr Villegas Coronary Artery Disease - 02/04/2011 Hypercholesterolemia - 02/04/2011 Fever - 03/14/2009 Impaired Fasting Glucose - 03/26/2006 Esophagitis, Unspecified - 12/03/2005 Coronary Atherosclerosis of Unspecified Type of Vessel, [place] Graft - 03/13/2005 Unspecified Hemorrhoids Without Mention of Complication Comment: Hemorrhoids Diverticulosis of Colon (Without Mention of Hemorrhage) Comment: Diverticulosis Mixed Hyperlipidemia Obesity, Unspecified Hypothyroidism Essential Hypertension INTERVAL HX: At today's visit Precious Jean states that she has been having increased respiratory symptoms, mainly a daily cough She had an episode of severe coughing with phlegm and went to the ER - thought to have a viral illness - this happened about 3 weeks ago and lasted for about a week. Since then has lost her appetite and feels weak. Off prednisone since early Jul 2022 Mild SOB with exertion Review of Systems CONSTITUTION: Negative for: Fever and Recent weight change HEENT: Negative for: Nosebleeds, Mouth sores, Trouble swallowing and Dry mouth RESPIRATORY: Positive for: Cough Negative for: Shortness of breath, Pain with breathing and Coughing up blood GASTROINTESTINAL: Negative for: Melena, Diarrhea, Heartburn and Abdominal pain MUSCULOSKELETAL: Positive for: Arthralgias, Myalgias, Muscle weakness and Morning Joint Stiffness Negative for: Joint swelling NEUROLOGICAL: Negative for: Headaches, Numbness and Memory loss SKIN: Negative for: Rash, Skin changes, Hair loss and Nail changes EYES: Positive for: Eye dryness Negative for: Eye pain, Eye redness and visual disturbance CARDIOVASCULAR: Negative for: Chest pain and Leg swelling GENITOURINARY: Positive for: Dysuria Negative for: Hematuria HEMATOLOGIC/LYMPHATIC: Negative for: Swollen glands REVIEW OF FAMILY AND/OR SOCIAL HISTORY: The family and/or social were reviewed at todays visit and no changes were noted. Date of last DEXA: 08/12/2022 ([facility]) Current Outpatient Medications Medication Sig methotrexate 2.5 mg tablet Take 6 tablets by mouth one time a week. amLODIPine (NORVASC) 10 mg tablet Take 10 mg by mouth once daily. folic acid 1 mg tablet Take 1 tablet by mouth once daily. furosemide (LASIX) 40 mg tablet Take 40 mg by mouth once daily. cholecalciferol (VITAMIN D3) 1,000 unit tab tablet Take by mouth. Vitamin E, dl, acetate, (VITAMIN E) 400 unit capsule Take by mouth. Magnesium 250 mg tab Take by mouth. clopidogrel (PLAVIX) 75 mg tablet Take 1 tablet by mouth once daily. aspirin, enteric coated (ASPIRIN, ENTERIC COATED) 81 mg EC tablet Take 81 mg by mouth once daily. atorvastatin (LIPITOR) 40 mg tablet Take 40 mg by mouth daily at bedtime. levothyroxine (SYNTHROID) 100 mcg tablet Take 100 mcg by mouth daily before breakfast. losartan (COZAAR) 50 mg tablet Take 50 mg by mouth twice daily. metoprolol succinate ER (TOPROL XL) 50 mg 24 hr tablet Take 100 mg by mouth twice daily. Hold if HR < 60 bpm ascorbic acid, vitamin C, (VITAMIN C) 500 mg tablet Take 500 mg by mouth once daily. Bhaphmbbyribz-Pprlcobd-Jukics (MULTIVITAMIN 50 PLUS) tab Take 1 tablet by mouth once daily. isosorbide mononitrate ER (IMDUR) 30 mg 24 hr tablet Take 30 mg by mouth twice daily. ewrwj-5s-bdh-epa-fish oil-D3 360 mg-1,200 mg -1,000 unit cap Take 1 capsule by mouth once daily. coenzyme Q10 (COENZYME Q-10) 100 mg cap capsule Take one(1) tablet daily. calcium (elemental) ORAL Tab Take 200 mg by mouth. Each tablet contains 500 mg elemental calcium equivalent to 1250 mg calcium carbonate Takes 400 mg (200 mg x 2 tabs) at noon AND 200 mg (200 mg x 1 tab) during dinner predniSONE (DELTASONE) 1 mg tablet Take 2 tablets by mouth once daily. (Patient taking differently: Take 1 mg by mouth once daily.) ZINC ORAL Take by mouth. pantoprazole DR (PROTONIX) 40 mg tablet Take 40 mg by mouth once daily. predniSONE (DELTASONE) 1 mg tablet Take 4 tablets by mouth once daily. Patient taking w/ 5mg tablet for a total of 9 daily. ferrous sulfate 325 mg (65 mg iron) tablet Take 325 mg by mouth once daily. FOLIC ACID 400 MCG ORAL TAB Take 0.4 mg by mouth once daily. No current facility-administered medications for this visit. PHYSICAL EXAMINATION Blood pressure 139/56, pulse (!) 54, temperature 36.3 C (97.4 F), temperature source Temporal, weight 70.9 kg (156 lb 6.4 oz). GENERAL APPEARANCE: well SKIN: normal without rashes or lesions EYES: conjunctiva clear, PERRL, EOM normal EARS: External ears normal, TM's normal NOSE/SINUSES: normal OROPHARYNX: no oral lesions present, no oral ulcers. LUNGS: clear HEART: RRR, no gallops, rubs or murmurs MUSCULOSKELETAL: no joint tenderness or swelling NEURO: motor 5/5 Lab results: WBC Date Value Ref Range Status 10/11/2022 7.85 3.70 - 11.00 k/uL Final Hemoglobin Date Value Ref Range Status 10/11/2022 11.3 (L) 11.5 - 15.5 g/dL Final Hematocrit Date Value Ref Range Status 10/11/2022 34.0 (L) 36.0 - 46.0 % Final Platelet Count Date Value Ref Range Status 10/11/2022 245 150 - 400 k/uL Final Abs Lymph Date Value Ref Range Status 10/11/2022 1.24 1.00 - 4.00 k/uL Final Creatinine Date Value Ref Range Status 10/11/2022 1.00 (H) 0.58 - 0.96 mg/dL Final Glucose Date Value Ref Range Status 10/11/2022 114 (H) 74 - 99 mg/dL Final Comment: The [place] [employer] (ADA) provides guidance for cutoff values for fasting glucose and random glucose. The ADA defines fasting as no caloric intake for at least 8 hours. Fasting plasma glucose results between 100 to 125 mg/dL indicate increased risk for diabetes (prediabetes). Fasting plasma glucose results greater than or equal to 126 mg/dL meet the criteria for diagnosis of diabetes. In the absence of unequivocal hyperglycemia, results should be confirmed by repeat testing. In a patient with classic symptoms of hyperglycemia or hyperglycemic crisis, random plasma glucose results greater than or equal to 200 mg/dL meet the criteria for diagnosis of diabetes. Reference: Standards of Medical Care in Diabetes 2016, [place] [employer]. Diabetes Care. 2016.39(Suppl 1). AST Date Value Ref Range Status 10/11/2022 18 13 - 35 U/L Final ALT Date Value Ref Range Status 10/11/2022 14 7 - 38 U/L Final Sed Rate, [place] Date Value Ref Range Status 10/11/2022 40 (H) 0 - 20 mm/hr Final CRP Date Value Ref Range Status 03/13/2021 <0.3 <0.9 mg/dL Final Alkaline Phosphatase Date Value Ref Range Status 10/11/2022 72 34 - 123 U/L Final Urine: Specific [place], Ur Date Value Ref Range Status 03/25/2022 1.009 1.005 - 1.030 Final Glucose, Urine Date Value Ref Range Status 03/25/2022 Negative Negative Final Bilirubin, Urine Date Value Ref Range Status 03/25/2022 Negative Negative Final Ketones, Urine Date Value Ref Range Status 03/25/2022 Negative Negative Final Hemoglobin/Blood,Ur Date Value Ref Range Status 03/25/2022 Negative Negative Final Protein, Urine Date Value Ref Range Status 03/25/2022 1+ (A) Negative Final Urobilinogen, Urine Date Value Ref Range Status 09/01/2015 0.2 Normal (<1.1) EU Final WBC, Urine Date Value Ref Range Status 07/18/2021 0-5 0 - 5 /HPF Final ASSESSMENT: D86.9 Sarcoidosis (primary encounter diagnosis) Comment: Patient had been doing very well on Methotrexate. She had been dependent on high doses of prednisone to maintain a normal O2 sat but on MTX was able to taper the prednisone dose to zero. She has recurrent but mild symptoms at this time Assessment and plan were discussed with the patient. PLAN: Continue current medications. Orders: Chest CT Consults: possibly pulmonary Monitoring: Continue monthly labs Patient instructed to notify provider of any changes in medical condition. Follow-up: following results fo CT I spent a total of 40 minutes on the date of the service which included preparing to see the patient, [id number] patient care, completing clinical documentation, obtaining and/or reviewing separately obtained history, performing a medically appropriate examination, counseling and educating the patient/family/caregiver, ordering medications, tests, or procedures, and independently interpreting results (not separately reported). Araceli Nixon MD, MPH Addendum - patient called: - Plan: consult pulmonary for evaluation and treatment of sarcoidosis Chest CT shows new nodules - possible relapse or worsening of sarcoidosis CT on 11/15/2022: IMPRESSION: Multiple bilateral lung nodules (several along the pleural margins) are noted. A dominant 10 mm subpleural nodule and an adjacent 6 mm intraparenchymal nodule in the right upper lobe (both associated with mild perilesional groundglass), are new in comparison to the most recent prior scan dated 08/12/2022, and of indeterminate etiology. These could be infectious/inflammatory (such as related to sarcoidosis) although neoplastic etiology cannot be excluded. Suggest short-term follow-up with repeat CT in 3 months. -Most additional smaller nodules as described are unchanged from the recent prior CT, although a few nodules are new or larger compared to a remote scan from 03/28/2021. Given history of sarcoidosis, these nodules are presumably granulomas. Suggest attention on follow-up. Multifocal peripheral and peribronchial groundglass opacities in both lungs are overall improved compared to an earlier scan from 07/24/2021, although not substantially changed compared to the most recent prior scan dated 08/12/2022. 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 A component of superimposed interstitial pulmonary edema cannot be excluded. There is mild air trapping in the bilateral lung bases. Stable mild lower right paratracheal and suspected bilateral hilar lymphadenopathy, presumably secondary to history of sarcoidosis. Suggest attention on follow-up. Stable dilated main pulmonary artery suggestive of pulmonary hypertension. CAD status post PCI with multivessel coronary calcifications and multiple coronary artery stents. Moderate biatrial enlargement with coarse mitral annular calcifications again noted. documented in this encounter [facility] 10-24-2022 Miscellaneous Notes Left message for patient. Will respond to MC message. Leonora Birch RN documented in this encounter [facility] 10-11-2022 Miscellaneous Notes The following approved medication requests have been transmitted electronically. Requested Prescriptions Signed Prescriptions Disp Refills methotrexate 2.5 mg tablet 72 tablet 1 Sig: Take 6 tablets by mouth one time a week. Araceli Hernandez MD documented in this encounter [facility] 08-12-2022 Note HNO ID: [id number] Author: RT Cristian(R) Service: ? Author Type: Technologist Type: Progress Notes Filed: 08/12/2022 11:27 AM Note Text: Radiology Service Progress Note PATIENT NAME: Precious Jean DATE OF SERVICE: August 12, 2022 TIME: 11:15 AM PATIENT IDENTITY VERIFICATION COMPLETED USING TWO (2) IDENTIFIERS: Name and Date of confirmed by patient verbally. FALL SCREENING: Has the patient had 2 falls in the last year or 1 fall with injury or currently using an Ambulatory Assistive Device (Walker, Cane, Wheelchair, Crutches, etc.)? No PATIENT GENDER DATA: Female. status: : No status: NO. PATIENT RELEVANT IMPLANT DATA REVIEWED: Not Applicable RADIOLOGY DEPARTMENT: Bone Density PERIPHERAL IV DATA: Not applicable SIGNED BY: RT Cristian(R) August 12, 2022 11:15 AM [facility] 08-12-2022 Note HNO ID: [id number] Author: RT Anna(R) Service: ? Author Type: Strategic Client Executive Type: Progress Notes Filed: 08/12/2022 1:35 PM Note Text: Radiology Service Progress Note PATIENT NAME: Precious Jean DATE OF SERVICE: August 12, 2022 TIME: 1:34 PM PATIENT IDENTITY VERIFICATION COMPLETED USING TWO (2) IDENTIFIERS: Name and Date of confirmed by patient verbally. FALL SCREENING: Has the patient had 2 falls in the last year or 1 fall with injury or currently using an Ambulatory Assistive Device (Walker, Cane, Wheelchair, Crutches, etc.)? No PATIENT GENDER DATA: Female. status: : No status: NO. PATIENT RELEVANT IMPLANT DATA REVIEWED: Yes RADIOLOGY DEPARTMENT: CT; Exam(s) Completed: Chest PERIPHERAL IV DATA: Not applicable SIGNED BY: RT Franko(R) August 12, 2022 1:34 PM [facility] 08-12-2022 History of Presen t illness Narrative Radiology Service Progress Note PATIENT NAME: Precious Jean DATE OF SERVICE: August 12, 2022 TIME: 11:15 AM PATIENT IDENTITY VERIFICATION COMPLETED USING TWO (2) IDENTIFIERS: Name and Date of confirmed by patient verbally. FALL SCREENING: Has the patient had 2 falls in the last year or 1 fall with injury or currently using an Ambulatory Assistive Device (Walker, Cane, Wheelchair, Crutches, etc.)? No PATIENT GENDER DATA: Female. status: : No status: NO. PATIENT RELEVANT IMPLANT DATA REVIEWED: Not Applicable RADIOLOGY DEPARTMENT: Bone Density PERIPHERAL IV DATA: Not applicable SIGNED BY: RT Cristian(R) August 12, 2022 11:15 AM documented in this encounter [facility] 07-23-2022 Note HNO ID: [id number] Author: Araceli Hernandez MD Service: ? Author Type: Physician Type: Progress Notes Filed: 08/11/2022 11:45 PM Note Text: Precious Jean is a 86 year old female here for follow-up of Sarcoidosis (primary encounter diagnosis). Evaluation Date: 07/23/2022 Last Visit in Rheumatology: 09/10/2021 (with Araceli Hernandez) ACTIVE PROBLEM LIST Malnutrition of Moderate Degree (Hcc) - 04/08/2021 Chest Pain - 04/07/2021 Left-Sided Low Back Pain With Left-Sided Sciatica - 05/21/2016 Palpitations - 02/06/2011 Comment: [facility] Dr Villegas Coronary Artery Disease - 02/04/2011 Hypercholesterolemia - 02/04/2011 Fever - 03/14/2009 Impaired Fasting Glucose - 03/26/2006 Esophagitis, Unspecified - 12/03/2005 Coronary Atherosclerosis of Unspecified Type of Vessel, [place] Graft - 03/13/2005 Unspecified Hemorrhoids Without Mention of Complication Comment: Hemorrhoids Diverticulosis of Colon (Without Mention of Hemorrhage) Comment: Diverticulosis Mixed Hyperlipidemia Obesity, Unspecified Hypothyroidism Essential Hypertension INTERVAL HX: At today's visit Precious Jean states that she has been felling weakness in the upper legs in the last 3-4 weeks. It is difficult to stand from sitting position and getting in and out of the car Has been on pred 9 mg/day since 06/24/2022 She had covid in 2021 and lost her appetite - long recovery Review of Systems CONSTITUTION: HEENT: Negative for: Nosebleeds, Mouth sores and Trouble swallowing RESPIRATORY: Negative for: Cough, Shortness of breath and Pain with breathing GASTROINTESTINAL: Negative for: Melena, Diarrhea, Heartburn and Abdominal pain MUSCULOSKELETAL: Positive for: Arthralgias, Myalgias, Muscle weakness and Morning Joint Stiffness Negative for: Joint swelling NEUROLOGICAL: Negative for: Headaches, Numbness and Memory loss SKIN: Negative for: Rash, Skin changes, Hair loss and Nail changes EYES: Positive for: Eye dryness Negative for: Eye pain, Eye redness and visual disturbance CARDIOVASCULAR: Negative for: Chest pain and Leg swelling GENITOURINARY: Negative for: Dysuria and Hematuria HEMATOLOGIC/LYMPHATIC: Negative for: Swollen glands REVIEW OF FAMILY AND/OR SOCIAL HISTORY: The family and/or social were reviewed at todays visit and no changes were noted. Date of last DEXA: 04/27/2008 Current Outpatient Medications Medication Sig amLODIPine (NORVASC) 10 mg tablet Take 10 mg by mouth once daily. folic acid 1 mg tablet Take 1 tablet by mouth once daily. methotrexate 2.5 mg tablet Take 6 tablets by mouth one time a week. predniSONE (DELTASONE) 1 mg tablet Take 2 tablets by mouth once daily. (Patient taking differently: Take 1 mg by mouth once daily.) furosemide (LASIX) 40 mg tablet Take 40 mg by mouth once daily. cholecalciferol (VITAMIN D3) 1,000 unit tab tablet Take by mouth. Vitamin E, dl, acetate, (VITAMIN E) 400 unit capsule Take by mouth. Magnesium 250 mg tab Take by mouth. aspirin, enteric coated (ASPIRIN, ENTERIC COATED) 81 mg EC tablet Take 81 mg by mouth once daily. atorvastatin (LIPITOR) 40 mg tablet Take 40 mg by mouth daily at bedtime. levothyroxine (SYNTHROID) 100 mcg tablet Take 100 mcg by mouth daily before breakfast. losartan (COZAAR) 50 mg tablet Take 50 mg by mouth twice daily. metoprolol succinate ER (TOPROL XL) 50 mg 24 hr tablet Take 100 mg by mouth twice daily. Hold if HR < 60 bpm ascorbic acid, vitamin C, (VITAMIN C) 500 mg tablet Take 500 mg by mouth once daily. Cfaqkggkmajbb-Kmbxgmyx-Eokljm (MULTIVITAMIN 50 PLUS) tab Take 1 tablet by mouth once daily. isosorbide mononitrate ER (IMDUR) 30 mg 24 hr tablet Take 30 mg by mouth twice daily. fulpl-8j-kxe-epa-fish oil-D3 360 mg-1,200 mg -1,000 unit cap Take 1 capsule by mouth once daily. coenzyme Q10 (COENZYME Q-10) 100 mg cap capsule Take one(1) tablet daily. calcium (elemental) ORAL Tab Take 200 mg by mouth. Each tablet contains 500 mg elemental calcium equivalent to 1250 mg calcium carbonate Takes 400 mg (200 mg x 2 tabs) at noon AND 200 mg (200 mg x 1 tab) during dinner predniSONE (DELTASONE) 1 mg tablet Take 4 tablets by mouth once daily. predniSONE (DELTASONE) 5 mg tablet Take 1 tablet by mouth once daily. predniSONE (DELTASONE) 2.5 mg tablet Take 3 tablets by mouth once daily. predniSONE (DELTASONE) 2.5 mg tablet Take 3 tablets by mouth once daily. ZINC ORAL Take by mouth. predniSONE (DELTASONE) 10 mg tablet Take 2 tablets by mouth once daily. (Patient not taking: Reported on 09/10/2021 ) pantoprazole DR (PROTONIX) 40 mg tablet Take 40 mg by mouth once daily. predniSONE (DELTASONE) 1 mg tablet Take 4 tablets by mouth once daily. Patient taking w/ 5mg tablet for a total of 9 daily. clopidogrel (PLAVIX) 75 mg tablet Take 1 tablet by mouth once daily. predniSONE (DELTASONE) 50 mg Take 50 mg by mouth once daily. [facility] ([facility] (more content not included)... [facility] 07-01-2022 Miscellaneous Notes Phone call to patient. Appointment scheduled on 07/23. Leonora Birch RN documented in this encounter [facility] 06-02-2022 Miscellaneous Notes The following approved medication requests have been transmitted electronically. Requested Prescriptions Signed Prescriptions Disp Refills folic acid 1 mg tablet 90 tablet 1 Sig: Take 1 tablet by mouth once daily. Authorizing Provider: ARACELI GONSALVES MD Patient is electronically requesting refill: Requested Prescriptions Pending Prescriptions Disp Refills folic acid 1 mg tablet 90 tablet 1 Sig: Take 1 tablet by mouth once daily. Please review and approve Kenia Brice documented in this encounter [facility] 04-26-2022 Miscellaneous Notes The following approved medication requests have been transmitted electronically. Requested Prescriptions Signed Prescriptions Disp Refills methotrexate 2.5 mg tablet 72 tablet 1 Sig: Take 6 tablets by mouth one time a week. Authorizing Provider: ARACELI GONSALVES MD Patient is electronically requesting refill: Requested Prescriptions Pending Prescriptions Disp Refills methotrexate 2.5 mg tablet 72 tablet 1 Sig: Take 6 tablets by mouth one time a week. Please review and approve Kenia Diaz Sec documented in this encounter [facility] 03-23-2022 Miscellaneous Notes The following approved medication requests have been transmitted electronically. Requested Prescriptions Signed Prescriptions Disp Refills predniSONE (DELTASONE) 1 mg tablet 120 tablet 3 Sig: Take 4 tablets by mouth once daily. Araceli Hernandez MD documented in this encounter [facility] 2021 Miscellaneous Notes The following approved medication requests have been transmitted electronically. Signed Prescriptions Disp Refills methotrexate 2.5 mg tablet 72 tablet 1 Sig: Take 6 tablets by mouth one time a week. JULIA: No Authorizing Provider: ARACELI GONSALVES MD Patient is electronically requesting refill: Pending Prescriptions Disp Refills METHOTREXATE SODIUM 2.5 MG TABLET 72 tablet 1 Sig: Take 6 tablets by mouth one time a week. JULIA: No Please review and approve Kenia Brice documented in this encounter [facility] 10-01-2021 Miscellaneous Notes The following approved medication requests have been transmitted electronically. Signed Prescriptions Disp Refills folic acid 1 mg tablet 30 tablet 1 Sig: Take 1 tablet by mouth once daily. JULIA: No Authorizing Provider: ARACELI GONSALVES predniSONE (DELTASONE) 2.5 mg tablet 90 tablet 1 Sig: Take 3 tablets by mouth once daily. JULIA: No Authorizing Provider: ARACELI GONSALVES MD Patient is electronically requesting refill: Pending Prescriptions Disp Refills FOLIC ACID 1 MG TABLET 30 tablet 1 Sig: Take 1 tablet by mouth once daily. JUILA: No PREDNISONE 2.5 MG TABLET 90 tablet 1 Sig: Take 3 tablets by mouth once daily. JULIA: No Please review and approve Kenia Brice documented in this encounter [facility] 10-01-2021 Miscellaneous Notes refill sent under separate encounter documented in this encounter [facility] 09-11-2021 History of Presen t illness Narrative Precious Jean is a 85 year old female here for follow-up of probable Sarcoidosis. Evaluation Date: 09/11/2021 Last Visit in Rheumatology: 09/10/2021 (with Araceli Hernandez) ACTIVE PROBLEM LIST Malnutrition of Moderate Degree (Hcc) - 04/08/2021 Chest Pain - 04/07/2021 Left-Sided Low Back Pain With Left-Sided Sciatica - 05/21/2016 Palpitations - 02/06/2011 Comment: [facility] Dr Villegas Coronary Artery Disease - 02/04/2011 Hypercholesterolemia - 02/04/2011 Fever - 03/14/2009 Impaired Fasting Glucose - 03/26/2006 Esophagitis, Unspecified - 12/03/2005 Coronary Atherosclerosis of Unspecified Type of Vessel, [place] Or Graft - 03/13/2005 Unspecified Hemorrhoids Without Mention of Complication Comment: Hemorrhoids Diverticulosis of Colon (Without Mention of Hemorrhage) Comment: Diverticulosis Mixed Hyperlipidemia Obesity, Unspecified Hypothyroidism Essential Hypertension INTERVAL HX: - At today's visit Precious Jean states she continues to experience severe fatigue (not changed for the past months). In occasions, it is hard for her to stand/seat from chairs without support. Feels her thighs are weak, but improved as compared to when she was taking higher doses of prednisone. - On the other hand, she has been OFF Oxygen since April 2021 and her O2 levels at home daily are all above 93% despite having mild shortness of breath with exertion. - Currently taking MTX 15mg weekly + 1mg of folic acid daily which she is tolerating well. - Down to 15mg of Prednisone daily for the past week - Did not undergo bronchoscopy as she was not cleared by Cardiology to hold Plavix then. SMALL/MEDIUM VESSEL VASCULITIS ROS: GENERAL: fatigue FEVER: none WEIGHT CHANGE: none ENT: negative for, sinus tenderness, nasal crusting, epistaxis, bloody nasal drainage, ear pain, decreased hearing, sore throat, difficulty swallowing, mouth lesions, voice changes, loud noisy breathing or stridor EYES: negative for , pain, redness, visual blurring, transient visual loss, diplopia RESPIRATORY: shortness of breath CARDIOVASCULAR: negative for, chest pain, palpitations, extremity claudication, digital ischemia, Raynaud's GASTROINTESTINAL: negative for, abdominal pain, nausea, BRBPR, black stools, change in bowel habit, vomiting, diarrhea URINARY: negative for, dysuria, hematuria, frequency, incontinence MUSCULOSKELETAL: negative for, joint pain, joint swelling, back pain, myalgias, proximal myalgias NEUROLOGIC: negative for, numbness, weakness, paresthesias, dizziness SKIN: negative for, rash Current Outpatient Medications Medication Sig ZINC ORAL Take by mouth. methotrexate 2.5 mg tablet Take 6 tablets by mouth one time a week. folic acid 1 mg tablet Take 1 tablet by mouth once daily. furosemide (LASIX) 40 mg tablet Take 40 mg by mouth once daily. cholecalciferol (VITAMIN D3) 1,000 unit tab tablet Take by mouth. Vitamin E, dl, acetate, (VITAMIN E) 400 unit capsule Take by mouth. Magnesium 250 mg tab Take by mouth. predniSONE (DELTASONE) 1 mg tablet Take 4 tablets by mouth once daily. Patient taking w/ 5mg tablet for a total of 9 daily. clopidogrel (PLAVIX) 75 mg tablet Take 1 tablet by mouth once daily. aspirin, enteric coated (ASPIRIN, ENTERIC COATED) 81 mg EC tablet Take 81 mg by mouth once daily. atorvastatin (LIPITOR) 40 mg tablet Take 40 mg by mouth daily at bedtime. levothyroxine (SYNTHROID) 100 mcg tablet Take 100 mcg by mouth daily before breakfast. losartan (COZAAR) 50 mg tablet Take 50 mg by mouth twice daily. metoprolol succinate ER (TOPROL XL) 50 mg 24 hr tablet Take 50 mg by mouth twice daily. Hold if HR < 60 bpm ferrous sulfate 325 mg (65 mg iron) tablet Take 325 mg by mouth once daily. ascorbic acid, vitamin C, (VITAMIN C) 500 mg tablet Take 500 mg by mouth once daily. Yhcjtletiuhiw-Elvkxmuz-Cdbrqv (MULTIVITAMIN 50 PLUS) tab Take 1 tablet by mouth once daily. isosorbide mononitrate ER (IMDUR) 30 mg 24 hr tablet Take 30 mg by mouth twice daily. htamt-8m-zys-epa-fish oil-D3 360 mg-1,200 mg -1,000 unit cap Take 1 capsule by mouth once daily. Coenzyme Q10 (CO Q-10) 100 mg ORAL Cap Take one(1) tablet daily. calcium (elemental) ORAL Tab Take 200 mg by mouth. Each tablet contains 500 mg elemental calcium equivalent to 1250 mg calcium carbonate Takes 400 mg (200 mg x 2 tabs) at noon AND 200 mg (200 mg x 1 tab) during dinner predniSONE (DELTASONE) 10 mg tablet Take 2 tablets by mouth once daily. (Patient not taking: Reported on 09/10/2021 ) pantoprazole DR (PROTONIX) 40 mg tablet Take 40 mg by mouth once daily. predniSONE (DELTASONE) 2.5 mg tablet Take 1 tablet by mouth once daily. (Patient not taking: Reported on 09/10/2021 ) predniSONE (DELTASONE) 5 mg tablet Take 2 tablets by mouth once daily. (Patient not taking: Reported on 09/10/2021 ) predniSONE (DELTASONE) 50 mg Take 50 mg by mouth once daily. Being followed [facility] (Patient not taking: Reported on 09/10/2021 ) FOLIC ACID 400 MCG ORAL TAB Take 0.4 mg by mouth once daily. No current facility-administered medications for this visit. PHYSICAL EXAMINATION Blood pressure (!) 141/48, pulse (!) 56, temperature 36.6 C (97.9 F), temperature source Temporal, height 157.5 cm (5' 2 ), weight 79.8 kg (176 lb). GENERAL APPEARANCE: well SKIN: normal without rashes or lesions EYES: conjunctiva clear, PERRL, EOM normal EARS: External ears normal, TM's normal NOSE/SINUSES: normal OROPHARYNX: no oral lesions present, no oral ulcers. LUNGS: clear HEART: RRR, no gallops, rubs or murmurs ABDOMEN: soft, non-tender, normal BS, no organomegaly or masses MUSCULOSKELETAL: no joint tenderness or swelling NEURO: normal Lab results: WBC Date Value Ref Range Status 08/30/2021 10.73 3.70 - 11.00 k/uL Final Hemoglobin Date Value Ref Range Status 08/30/2021 11.5 11.5 - 15.5 g/dL Final Hematocrit Date Value Ref Range Status 08/30/2021 34.6 (L) 36.0 - 46.0 % Final Platelet Count Date Value Ref Range Status 08/30/2021 240 150 - 400 k/uL Final Abs Lymph (Normal + Reactive) Date Value Ref Range Status 08/30/2021 0.75 (L) 1.00 - 4.00 k/uL Final Creatinine Date Value Ref Range Status 08/30/2021 1.11 (H) 0.58 - 0.96 mg/dL Final Glucose Date Value Ref Range Status 08/30/2021 275 (H) 74 - 99 mg/dL Final Comment: The [place] [employer] (ADA) provides guidance for cutoff values for fasting glucose and random glucose. The ADA defines fasting as no caloric intake for at least 8 hours. Fasting plasma glucose results between 100 to 125 mg/dL indicate increased risk for diabetes (prediabetes). Fasting plasma glucose results greater than or equal to 126 mg/dL meet the criteria for diagnosis of diabetes. In the absence of unequivocal hyperglycemia, results should be confirmed by repeat testing. In a patient with classic symptoms of hyperglycemia or hyperglycemic crisis, random plasma glucose results greater than or equal to 200 mg/dL meet the criteria for diagnosis of diabetes. Reference: Standards of Medical Care in Diabetes 2016, [place] [employer]. Diabetes Care. 2016.39(Suppl 1). AST Date Value Ref Range Status 08/30/2021 18 13 - 35 U/L Final ALT Date Value Ref Range Status 08/30/2021 21 7 - 38 U/L Final Sed Rate, [place] Date Value Ref Range Status 08/30/2021 17 0 - 20 mm/hr Final CRP Date Value Ref Range Status 03/13/2021 <0.3 <0.9 mg/dL Final Alkaline Phosphatase Date Value Ref Range Status 08/30/2021 44 34 - 123 U/L Final Urine: Specific [place], Ur Date Value Ref Range Status 08/30/2021 1.016 1.005 - 1.030 Final Glucose, Urine Date Value Ref Range Status 08/30/2021 Negative Negative Final Bilirubin, Urine Date Value Ref Range Status 08/30/2021 Negative Negative Final Ketones, Urine Date Value Ref Range Status 08/30/2021 Negative Negative Final Hemoglobin/Blood,Ur Date Value Ref Range Status 08/30/2021 Negative Negative Final Protein, Urine Date Value Ref Range Status 08/30/2021 2+ (A) Negative Final Urobilinogen, Urine Date Value Ref Range Status 09/01/2015 0.2 Normal (<1.1) EU Final WBC, Urine Date Value Ref Range Status 07/18/2021 0-5 0 - 5 /HPF Final ASSESSMENT: 1. Sarcoidosis (probable diagnosis, no histology) - At today's visit the patient's disease appears to be significantly improved - based on symptoms and O2 requirement. - She has been doing well from a respiratory standpoint since April 2021 > OFF Oxygen at home and sating above 93% which is reassuring. - Currently MTX 15mg weekly + 1mg of folic acid + Prednisone 15mg daily for the past week which she is tolerating well - Available laboratories were reviewed with the patient. PLAN: 1. Decrease prednisone to 12.5mg daily X 7 days> 10mg daily X 7 days> 7.5mg daily X 7 days. Once you get to this point, patient to communicate with Dr. Ortiz Hernandez for next steps. 2. Continue methotrexate 15mg weekly + 1mg folic acid daily. Orders: Labs Consults: none Monitoring: Continue monthly labs Patient instructed to notify provider of any changes in medical condition. Follow-up: Per Dr. Ortiz Hernandez. I spent a total of 30 minutes on the date of the service which included preparing to see the patient, [id number] patient care, completing clinical documentation, obtaining and/or reviewing separately obtained history, performing a medically appropriate examination, counseling and educating the patient/family/caregiver and ordering medications, tests, or procedures. Katie Mena MD Rheumatology Fellow RHEUMATOLOGY STAFF: I have reviewed the history and physical examination obtained and documented by the fellow and I personally participated in the cheng components. I have discussed the case and management of the patient's care with the fellow . [place] note was revised, edited and confirmed. Assessment and plan discussed with patient If symptoms recur after prednisone taper we will proceed with bronchoscopy as she will have been on plavix for > 6 months and the medication could be put on hold at that time I spent a total of 40 minutes on the date of the service which included preparing to see the patient, [id number] patient care, completing clinical documentation, obtaining and/or reviewing separately obtained history, performing a medically appropriate examination, counseling and educating the patient/family/caregiver and ordering medications, tests, or procedures. Araceli Nixon MD, MPH Authenticated by responsible provider. documented in this encounter [facility] 09-10-2021 Instructions Katie Mena MD - 09/10/2021 12:24 PM EDT It was a pleasure seeing you in [facility]'s rheumatology office today. Please let us know if shortness of breath or Oxygen level get worse. MEDICATIONS: - Please go down to Prednisone 12.5mg daily for 1 week - Followed by 10mg daily for another week. - Followed by 7.5mg daily for another week. Once you get to this point you stay in this until we communicate LABS: Please stop by the laboratory to get blood drawn on the first floor if we discussed obtaining blood work. FOLLOW UP: To make an appointment yourself or to schedule any of the appointments that we may have discussed during your visit, please call [phone] (central scheduling). Call [phone] to speak with the rheumatology front services agent. I will contact you by phone or by letter if there are results/recommendations still pending. Kaite Mena MD Fellow, Rheumatologic [place] [facility] Appointment: [phone] Address: [address] [place] [address] / [place] [address] documented in this encounter [facility] 04-10-2021 Note HNO ID: [id number] Author: Olvin Rand DO Service: Hospital Medicine Author Type: Physician Type: Progress Notes Filed: 04/10/2021 12:46 PM Note Text: Documentation Query Based on your medical judgment of the clinical indicators outlined below, please clarify the condition: (Please type X next to your response and sign) Dr Rand, Clinical Indicators per RD note 04/08 Recommended Malnutrition Diagnosis: Moderate Protein-Calorie Malnutrition In the context of: Chronic Illness or Injury Based on: Insufficient Energy Intake;Muscle Loss;Unintentional Weight Loss Problem: Suboptimal protein/energy intake Related to: Inability to consume sufficient nutrients As evidenced by: Depletion of fat/muscle stores;Weight loss;Patient/family self-report;Anorexia Body mass index is 29.08 kg/m?.Overweight Weight change percentage over time: patient reports 16 pound weight loss in 2 months representing 9.4% change; clinically significant Treatment Continue current diet Supplements: Ensure Enlive (BID) Please clarify the Patients Nutritional Status Such As: X Moderate Protein Calorie Malnutrition Unknown Clinically Unable to Determine Other, please specify In responding to this request, please exercise your independent professional judgment. Thank you! Korin Mcgregor Clin Doc Spec [phone] [facility] 04-10-2021 Note HNO ID: [id number] Author: Sarah Schmid APRN.JANE Service: Cardiovascular Disease Author Type: Nurse Practitioner Type: Progress Notes Filed: 04/10/2021 12:22 PM Note Text: PROGRESS NOTE CARDIOLOGY SERVICE SERVICE DATE: 04/10/2021 SERVICE TIME: 12:12 PM Subjective INTERIM HISTORY: Mrs Jean is an 85-year-old female with a past medical history significant for coronary artery disease multiple previous PCI's usual cardiac care [facility] Dr. [place], hypertension, anemia, hyperlipidemia. She developed exertional chest discomfort and was seen in the emergency room. She received sublingual nitrate with improvement in her complaints she was diagnosed with unstable angina with plan for left heart catheterization. She underwent left heart catheterization 04/09/2021 after being seen in consultation by cardiology. High-sensitivity troponin 81, 87. Cardiac cath identified stenosis of the circumflex and subsequent drug-eluting stent to the circumflex artery. She was initially loaded with Brilinta however patient had had intolerance in the past with shortness of breath there she was transitioned and reloaded to Plavix therapy last evening. She is seen sitting up at the bedside she denies any complaints of chest pain, palpitations tach palpitations syncope no near syncope. She has no orthopnea PND or lower extremity edema. Right radial cath site has ecchymosis no hematoma no bruit no discomfort no motor or sensory deficit. CARDIAC STATUS: Telemetry-sinus bradycardia heart rate 50 to 60 bpm No chest pain No shortness of breath No dizziness or lightheadedness No palpitations No orthopnea No lower extremity edema Objective PHYSICAL EXAM: Body mass index is 29.08 kg/m?. O2 Therapy: Nasal Cannula No data recorded Patient Vitals for the past 24 hrs: BP Temp Temp src Pulse Resp SpO2 Weight 04/10/21 1116 (!) 135/45 36.7 ?C (98.1 ?F) Oral 65 18 97 % ? 04/10/21 0854 ? ? ? 70 ? ? ? 04/10/21 0723 167/67 36.6 ?C (97.9 ?F) Oral 68 18 100 % ? 04/10/21 0342 158/58 36.3 ?C (97.3 ?F) Oral (!) 57 18 98 % 69.8 kg (153 lb 14.1 oz) 04/09/21 2313 (!) 133/43 36.8 ?C (98.2 ?F) Oral 63 18 98 % ? 04/09/21 2212 136/52 36.8 ?C (98.2 ?F) Oral 61 18 96 % ? 04/09/21 1700 138/52 ? ? 72 18 98 % ? 04/09/21 1600 143/50 ? ? 76 18 98 % ? 04/09/21 1500 169/55 ? ? 65 18 97 % ? 04/09/21 1455 147/53 ? ? 73 18 99 % ? 04/09/21 1425 149/52 ? ? 63 18 98 % ? 04/09/21 1355 151/54 ? ? 83 18 94 % ? 04/09/21 1340 155/54 ? ? 68 18 98 % ? 04/09/21 1325 156/54 ? ? (!) 56 18 97 % ? 04/09/21 1310 151/55 ? ? 65 18 97 % ? Pleasant, comfortable, not in acute distress. Awake, alert, oriented times 3. Moves all extremities. SKIN: No rash or lumps. HEENT: Normocephalic, face symmetrical. LUNGS: Clear to auscultation bilaterally. CARDIAC: RRR S1 S2 ABDOMEN: Soft, nontender, bowel sounds present. EXTREMITIES: No edema. Rt radial cath site with good 2+ Radial pulse, +ecchymosis no hematoma or bruit PULSES: Peripheral pulses present. MEDICATIONS: Current Facility-Administered Medications Medication Dose Route Frequency - atorvastatin 40 mg tab(s) (LIPITOR) 40 mg ORAL AT BEDTIME - levothyroxine 100 mcg tab(s) (SYNTHROID) 100 mcg ORAL DAILY (6 AM) - losartan 50 mg tab(s) (COZAAR) 50 mg ORAL BID - melatonin 1 mg tab(s) 1 mg ORAL DAILY (8 PM) - polyethylene glycol 3350 17 g packet (MIRALAX, GLYCOLAX) 17 g ORAL DAILY - metoprolol succinate ER 50 mg tab(s) (TOPROL XL) 50 mg ORAL DAILY - predniSONE 50 mg tab(s) (DELTASONE) 50 mg ORAL DAILY - isosorbide mononitrate ER 30 mg tab(s) (IMDUR) 30 mg ORAL BID 9a/4p - aspirin 81 mg chewable tab(s) 81 mg ORAL DAILY - NaCl 0.9% iv flush bag 20 mL INTRAVENOUS PRN - hydrALAZINE 10 mg injection (APRESOLINE) 10 mg INTRAVENOUS q 6 H PRN - nitroglycerin sublingual 0.4 mg tab(s) (NITROQUICK) 0.4 mg SUBLINGUAL q 5 MIN PRN - atropine 0.4 mg injection 0.4 mg INTRAVENOUS PRN(NO DISPENSE) - sodium chloride 0.9 % (flush) 3-5 mL (BD POSIFLUSH) 3-5 mL INTRAVENOUS q 12 H - sodium chloride 0.9 % (flush) 2-10 mL (BD POSIFLUSH) 2-10 mL INTRAVENOUS q 12 H - clopidogrel 75 mg tab(s) (PLAVIX) 75 mg ORAL DAILY DATA: Diagnostic tests reviewed for today's visit: Most recent labs and imaging results. Past 72 Hour Labs: Recent Labs 04/09/21 0253 WBC 11.26* RBC 2.93* HB 9.7* HCT 30.1* MCV 102.7* MCH 33.1 MCHC 32.2 RDWCV 15.8* PLT 215 MPV 9.6 GLUC 119* BUN 26* CREAT 1.14* NA 135* K 4.5 CHLOR 96* CO2 31* TPROT 5.6* ALB 3.5* CA 8.8 ALKPHOS 39 TBILI 0.3 AST 12* ALT 14 MG 1.8 Last Lab Drawn: TSH 1.210 07/02/2017 Triglyceride 201 07/02/2017 HDL Cholesterol 38 07/02/2017 LDL Chol, [place] 61 07/02/2017 Cholesterol, Total 139 07/02/2017 Assessment/Plan Active Problems: 1. Unstable angina-status post cardiac catheterization and PTCA drug-eluting stent to 70% proximal circumflex with evidence of poss (more content not included)... [facility] 04-09-2021 Note HNO ID: [id number] Author: Olvin Rand DO Service: Hospital Medicine Author Type: Physician Type: Progress Notes Filed: 04/09/2021 5:05 PM Note Text: DEPARTMENT OF HOSPITAL MEDICINE PROGRESS NOTE Hospital Medicine/Primary Attending: Olvin Rand DO NIGHT AND WEEKEND COVERAGE: After 7pm please page [phone] CHIEF COMPLAINT: No complaints SUBJECTIVE: Pt seen and examined. She feels well today. Awaiting [facility]. She denies palpitations, nausea, vomiting, fever, chills, dysuria, hematuria, headache, weakness. OBJECTIVE: PHYSICAL EXAM: BP 169/55 Pulse 65 Temp (Src) 97.9 (Oral) Resp 18 Ht 5' 1 (1.55m) Wt 156 lb 1.4 oz (70.8kg) SpO2 97% BMI 29.51 kg/(m2). O2 Therapy: Nasal Cannula, Liters: 1 General - AANDOx3, NAD, Calm CV - RRR S1 S2, No M/R/G RESP - CTA B/L No wheezes, ronchi, rales ABD - soft, NT, ND +BS EXT - no gross joint deformity, no clubbing, cyanosis, edema NEURO - CN II-XII grossly intact, no focal deficits MEDICATIONS: Current Facility-Administered Medications Medication Dose Route Frequency - atorvastatin 40 mg tab(s) (LIPITOR) 40 mg ORAL AT BEDTIME - levothyroxine 100 mcg tab(s) (SYNTHROID) 100 mcg ORAL DAILY (6 AM) - losartan 50 mg tab(s) (COZAAR) 50 mg ORAL BID - melatonin 1 mg tab(s) 1 mg ORAL DAILY (8 PM) - polyethylene glycol 3350 17 g packet (MIRALAX, GLYCOLAX) 17 g ORAL DAILY - metoprolol succinate ER 50 mg tab(s) (TOPROL XL) 50 mg ORAL DAILY - predniSONE 50 mg tab(s) (DELTASONE) 50 mg ORAL DAILY - isosorbide mononitrate ER 30 mg tab(s) (IMDUR) 30 mg ORAL BID /p - aspirin 81 mg chewable tab(s) 81 mg ORAL DAILY - NaCl 0.9% iv flush bag 20 mL INTRAVENOUS PRN - hydrALAZINE 10 mg injection (APRESOLINE) 10 mg INTRAVENOUS q 6 H PRN - nitroglycerin sublingual 0.4 mg tab(s) (NITROQUICK) 0.4 mg SUBLINGUAL q 5 MIN PRN - atropine 0.4 mg injection 0.4 mg INTRAVENOUS PRN(NO DISPENSE) - sodium chloride 0.9 % (flush) 3-5 mL (BD POSIFLUSH) 3-5 mL INTRAVENOUS q 12 H - sodium chloride 0.9 % (flush) 2-10 mL (BD POSIFLUSH) 2-10 mL INTRAVENOUS q 12 H - clopidogrel 600 mg tab(s) (PLAVIX) 600 mg ORAL ONCE - [START ON 04/10/2021] clopidogrel 75 mg tab(s) (PLAVIX) 75 mg ORAL DAILY DATA: Diagnostic tests reviewed for today's visit: CBC: Recent Labs 04/09/21252 WBC 11.26* RBC 2.93* HB 9.7* HCT 30.1* PLT 215 MCV 102.7* MCH 33.1 MPV 9.6 Coags: No results for input(s): PT, INR, APTT in the last 24 hours. BMP: Recent Labs 04/09/21252 NA 135* K 4.5 CHLOR 96* CO2 31* BUN 26* CREAT 1.14* GLUC 119* CMP: Recent Labs 04/09/21252 NA 135* K 4.5 CHLOR 96* CO2 31* BUN 26* CREAT 1.14* GLUC 119* TPROT 5.6* CA 8.8 MG 1.8 TBILI 0.3 ALKPHOS 39 ALT 14 AST 12* ANION 8* Cardiac Enzymes: No results for input(s): CK, MB, CKMB, TROPT in the last 24 hours. Liver Function, Amylase, Lipase: Recent Labs 04/09/21252 TPROT 5.6* ALB 3.5* ALT 14 AST 12* ALKPHOS 39 TBILI 0.3 MG/PHOS: Recent Labs 04/09/21252 MG 1.8 Renal Panel: Recent Labs 04/09/21252 CREAT 1.14* BUN 26* GLUC 119* CA 8.8 CHLOR 96* K 4.5 CO2 31* NA 135* Heme: No results for input(s): RETICP, ABSRETIC, LD, ERI, FE, TIBC, TRANSFERSAT in the last 24 hours. No results found for: UALBCR Estimated Creatinine Clearance: 33.6 mL/min (A) (based on SCr of 1.14 mg/dL (H)). Assessment/Plan Chest pain History of CAD Presents with 1 day of unstable angina left side pressure radiation down the arm at rest, relieved with nitro Reports 8 stents in the past and being told by her cytogenetic technician that further intervention would require CABG Currently chest pain-free -Telemetry -Cardiology consulted -Continue heparin drip -Plan for [facility] 04/09 ? Hypertension Home medications losartan, metoprolol -Continue, adjust as needed ? Chronic respiratory failure On 2 L nasal cannula at home She reports that she follows with a hide dyer and is on chronic prednisone She is currently on 50 mg of prednisone daily as part of a taper -Continue supplemental oxygen, wean as able -Continue prednisone 50mg Abnormal UA Reports polyuria UA concerning for infection with leukoesterase, nitrates, WBC, bacteria -Urine culture negative -Discontinue Rocephin ? Medication and Non-Pharmacologic VTE Prophylaxis/Anticoagulants Anticoagulant AND Antiplatelet Medications (From admission, onward) Start Dose Route Frequency Last Action Ordered Stop 04/10/21 0900 clopidogrel 75 mg tab(s) (PLAVIX) 75 mg ORAL DAILY Ordered 04/09/21 1549 -- 04/09/21 2100 clopidogrel 600 mg tab(s) (PLAVIX) 600 mg ORAL ONCE Ordered 04/09/21 1549 04/10/21 0859 04/07/21 1300 aspirin 81 mg chewable tab(s) 81 mg ORAL DAILY Given, 04/09 0927 04/07/21 1241 -- Lines, Drains, and Airways Line Peripheral 04/08/21 0315 Assessment Short Left Forearm 20 Gauge 1 day Patient does not currently have any lines, drains o (more content not included)... [facility] 04-08-2021 Note HNO ID: [id number] Author: Olvin Rand DO Service: Hospital Medicine Author Type: Physician Type: Progress Notes Filed: 04/08/2021 1:33 PM Note Text: DEPARTMENT OF HOSPITAL MEDICINE PROGRESS NOTE Hospital Medicine/Primary Attending: Olvin Rand DO NIGHT AND WEEKEND COVERAGE: After 7pm please page [phone] CHIEF COMPLAINT: No complaints SUBJECTIVE: Pt seen and examined. She feels well today. She does report some increased frequency in urination. She denies chest pain. Plan for [facility] 04/09. She denies palpitations, nausea, vomiting, fever, chills, dysuria, hematuria, headache, weakness. OBJECTIVE: PHYSICAL EXAM: BP 170/56 Pulse 59 Temp (Src) 99.1 (Oral) Resp 18 Ht 5' 1 (1.55m) Wt 153 lb 14.1 oz (69.8kg) SpO2 96% BMI 29.09 kg/(m2). O2 Therapy: Room Air, Liters: 1 General - AANDOx3, NAD, Calm CV - RRR S1 S2, No M/R/G RESP - CTA B/L No wheezes, ronchi, rales ABD - soft, NT, ND +BS EXT - no gross joint deformity, no clubbing, cyanosis, edema NEURO - CN II-XII grossly intact, no focal deficits MEDICATIONS: Current Facility-Administered Medications Medication Dose Route Frequency - atorvastatin 40 mg tab(s) (LIPITOR) 40 mg ORAL AT BEDTIME - levothyroxine 100 mcg tab(s) (SYNTHROID) 100 mcg ORAL DAILY (6 AM) - losartan 50 mg tab(s) (COZAAR) 50 mg ORAL BID - melatonin 1 mg tab(s) 1 mg ORAL DAILY (8 PM) - polyethylene glycol 3350 17 g packet (MIRALAX, GLYCOLAX) 17 g ORAL DAILY - metoprolol succinate ER 50 mg tab(s) (TOPROL XL) 50 mg ORAL DAILY - predniSONE 50 mg tab(s) (DELTASONE) 50 mg ORAL DAILY - isosorbide mononitrate ER 30 mg tab(s) (IMDUR) 30 mg ORAL BID 9a/4p - aspirin 81 mg chewable tab(s) 81 mg ORAL DAILY - enoxaparin 70 mg injection (LOVENOX) 1 mg/kg/dose SUBCUTANEOUS q 12 HR - cefTRIAXone iv piggyback 2 g in dextrose (iso-osmotic) 50 mL (ROCEPHIN) 2 g INTRAVENOUS q 24 H - NaCl 0.9% iv flush bag 20 mL INTRAVENOUS PRN - [START ON 04/09/2021] diphenhydrAMINE 25 mg (BENADRYL) 25 mg ORAL ONCE DATA: Diagnostic tests reviewed for today's visit: CBC: Recent Labs 04/08/21 0424 WBC 13.16* RBC 3.04* HB 10.0* HCT 30.6* PLT 214 MCV 100.7* MCH 32.9 MPV 9.2 Coags: No results for input(s): PT, INR, APTT in the last 24 hours. BMP: Recent Labs 04/08/21 0424 NA 136 K 4.8 CHLOR 99 CO2 32* BUN 23* CREAT 0.85 GLUC 108* CMP: Recent Labs 04/08/21 0424 NA 136 K 4.8 CHLOR 99 CO2 32* BUN 23* CREAT 0.85 GLUC 108* TPROT 5.6* CA 8.8 MG 1.9 TBILI 0.6 ALKPHOS 47 ALT 15 AST 15 ANION 5* Cardiac Enzymes: No results for input(s): CK, MB, CKMB, TROPT in the last 24 hours. Liver Function, Amylase, Lipase: Recent Labs 04/08/21423 TPROT 5.6* ALB 3.5* ALT 15 AST 15 ALKPHOS 47 TBILI 0.6 MG/PHOS: Recent Labs 04/08/21 0424 MG 1.9 Renal Panel: Recent Labs 04/08/21 0424 CREAT 0.85 BUN 23* GLUC 108* CA 8.8 CHLOR 99 K 4.8 CO2 32* NA 136 Heme: No results for input(s): RETICP, ABSRETIC, LD, ERI, FE, TIBC, TRANSFERSAT in the last 24 hours. No results found for: UALBCR Estimated Creatinine Clearance: 44.8 mL/min (based on SCr of 0.85 mg/dL). Assessment/Plan Chest pain History of CAD Presents with 1 day of unstable angina left side pressure radiation down the arm at rest, relieved with nitro Reports 8 stents in the past and being told by her cytogenetic technician that further intervention would require CABG Currently chest pain-free -Telemetry -Cardiology consulted -Continue heparin drip -Plan for [facility] 04/09 ? Hypertension Home medications losartan, metoprolol -Continue, adjust as needed ? Chronic respiratory failure On 2 L nasal cannula at home She reports that she follows with a hide dyer and is on chronic prednisone She is currently on 50 mg of prednisone daily as part of a taper -Continue supplemental oxygen, wean as able -Continue prednisone 50mg UTI Reports polyuria UA concerning for infection with leukoesterase, nitrates, WBC, bacteria -Urine culture -Rocephilynne ? Medication and Non-Pharmacologic VTE Prophylaxis/Anticoagulants Anticoagulant AND Antiplatelet Medications (From admission, onward) Start Dose Route Frequency Last Action Ordered Stop 04/07/21 1300 aspirin 81 mg chewable tab(s) 81 mg ORAL DAILY Given, 04/08 0923 04/07/21 1241 -- 04/07/21 1300 enoxaparin 70 mg injection (LOVENOX) (enoxaparin injection (LOVENOX)) 1 mg/kg/dose SUBCUTANEOUS EVERY 12 HOURS Given, 04/07 2347 04/07/21 1244 04/09/21 0059 Lines, Drains, and Airways Line Peripheral 04/08/21 0315 Assessment Short Left Forearm 20 Gauge <1 day Patient does not currently have any lines, drains or airways. VTE Prophylaxis: Patient is already anti-coagulated. Disposition: Home with [facility] Functional Status Prior to Admit: Medical Necessity for Continued Hospitalization [facility] Plan of care discussed with: Provider, RN, Patient SIGNATURE: Olvin Rand DO (more content not included)... [facility] Diagnosis Sarcoidosis- Primary Bilateral leg weakness Other musculoskeletal symptoms referable to limbs Dysuria Lung nodules Other nonspecific abnormal finding of lung field Multilobar lung infiltrate [facility] Diagnosis SOB (shortness of breath) Shortness of breath [facility] Diagnosis SOB (shortness of breath) Shortness of breath [facility] Diagnosis Lung nodules- Primary Other nonspecific abnormal finding of lung field Sarcoidosis [facility] Diagnosis Lung nodule- Primary Solitary pulmonary nodule Cardiac murmur, unspecified [facility] Diagnosis Lung nodule- Primary Solitary pulmonary nodule Pre-op testing Preoperative examination, unspecified [facility] Diagnosis Lung nodule- Primary Solitary pulmonary nodule [facility] Diagnosis Nonrheumatic aortic valve stenosis- Primary Aortic valve disorders Nonrheumatic aortic valve insufficiency Aortic valve disorders Dyspnea, unspecified type Coronary artery disease involving [place] coronary artery of [place] heart, unspecified whether angina present Stented coronary artery Postsurgical percutaneous transluminal coronary angioplasty status Sarcoidosis Primary hypertension Unspecified essential hypertension Dyslipidemia Other and unspecified hyperlipidemia Bilateral carotid artery disease, unspecified type (HCC) Acquired hypothyroidism Unspecified hypothyroidism Malnutrition of moderate degree (HCC) Malnutrition of moderate degree Acute on chronic diastolic congestive heart failure (HCC) Acute on chronic diastolic heart failure Chronic respiratory failure with hypoxia (HCC) Chronic respiratory failure Encounter for long-term (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 insulin (HCC) Encounter for long-term (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 insulin [facility] Diagnosis Nonrheumatic aortic valve stenosis- Primary Aortic valve disorders Aortic valve disorder Aortic valve disorders Encounter for surgical aftercare following surgery on the circulatory system Shortness of breath [facility] 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 Encounter for long-term (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 steroids [facility] Diagnosis Sarcoidosis Lung nodules Other nonspecific abnormal finding of lung field Multilobar lung infiltrate [facility] Diagnosis Lung nodules Other nonspecific abnormal finding of lung field documented in this encounter [facility] for referral (narrative)* Outpatient Procedure (Routine) - Pending Review Specialty Diagnoses / Procedures Referred By Roger marr Referred To Contact [facility] [place] Diagnoses Lung nodule Procedures ECG COMPLETE ECG ROUTINE ECG W/LEAST 12 LDS W/I&R Andrei Desai MD [address] [place], [place] [id number] [place] [address] Referral ID Status Reason Start Date Expiration Date Visits Requested Visits Authorized [id number] Pending Review Auto-Generat ed Referral 03/03/2023 03/02/2024 1 1 * Outpatient Procedure (Routine) - Pending Review Specialty Diagnoses / Procedures Referred By Roger marr Referred To Contact [facility] [place] Diagnoses Lung nodule Cardiac murmur, unspecified Procedures ECHO ECHO TTHRC R-T 2D W/WOM-MODE COMPL SPEC&COLR D Andrei Desai MD [address] [place], [place] [id number] [facility] [place] [address] [place] [address] Referral ID Status Reason Start Date Expiration Date Visits Requested Visits Authorized [id number] Pending Review Auto-Generat ed Referral 03/03/2023 03/02/2024 1 1 * Consult, Test, Treat (Routine) - Authorized Specialty Diagnoses / Procedures Referred By Contac t Referred To Contact Cardiology Diagnoses Lung nodule Procedures CONSULT TO CARDIOLOGY OFFICE/OUTPATIENT [facility] 60-74 MINUTES Andrei Desai MD [address] [place] [address] Referral ID Status Reason Start Date Expiration Date Visits Requested Visits Authorized [id number] Authorized PCP Requested Referral 03/03/2023 03/02/2024 1 1 [facility] for referral (narrative)* Outpatient Procedure (Routine) - Authorized Specialty Diagnoses / Procedures Referred By Contac t Referred To Contact [facility] [place] Diagnoses Lung nodule Procedures ECG COMPLETE ECG ROUTINE ECG W/LEAST 12 LDS W/I&R Vera Armstrong MD [id number] [place] [address] Referral ID Status Reason Start Date Expiration Date Visits Requested Visits Authorized [id number] Authorized Auto-Generat ed Referral 03/10/2023 03/09/2024 1 1 [facility] for referral (narrative)* Outpatient Procedure (Routine) - Pending Review Specialty Diagnoses / Procedures Referred By Contac t Referred To Contact [facility] [place] Diagnoses Aortic valve disorder Procedures ECG COMPLETE ECG ROUTINE ECG W/LEAST 12 LDS W/I&R Marlo Lainez, JEANETTE.PULMONOLOGIST [address] [place] [address] [facility] [address] [place] [address] Referral ID Status Reason Start Date Expiration Date Visits Requested Visits Authorized [id number] Pending Review Auto-Generat ed Referral 3 04/06/2024 1 1 * Outpatient Procedure (Routine) - Pending Review Specialty Diagnoses / Procedures Referred By Roger marr Referred To Contact [facility] [place] Diagnoses Nonrheumatic aortic valve stenosis Encounter for surgical aftercare following surgery on the circulatory system Procedures US CAROTID ARTERIES EDU VAS LAB DUPLEX SCAN EXTRACRANIAL ART COMPL BI STUDY Marlo Lainez APRN.CNP [address] [place] [address] [id number] [place] [address] Referral ID Status Reason Start Date Expiration Date Visits Requested Visits Authorized [id number] Pending Review Auto-Generat ed Referral 3 04/06/2024 1 1 * Diagnostic Procedure Only (Routine) - Pending Review Specialty Diagnoses / Procedures Referred By Roger marr Referred To Contact [facility] Diagnoses Nonrheumatic aortic valve stenosis Procedures NM SPECT/CT CARDIAC AMYLOID RP LOCLZJ DONNIE SPECT W/CT 1 AREA 1 DAY IMAGING Marlo Lainez APRN.PULMONOLOGIST [address] [place] [address] [facility] [address] [place] [address] Referral ID Status Reason Start Date Expiration Date Visits Requested Visits Authorized [id number] Pending Review Auto-Generat ed Referral 3 05/06/2024 1 1 * MRI/CT (Routine) - Pending Review Specialty Diagnoses / Procedures Referred By Roger marr Referred To Contact CT IMAGING Diagnoses Nonrheumatic aortic valve stenosis Procedures CTA CHEST/ABD/PEL (GATED) W IVCON CT ANGIOGRAPHY CHEST W/CONTRAST/NONCONTRAST CT ANGIO ABD&PLVIS CNTRST MTRL W/WO CNTRST Marlo Owens APRN.CNP [address] [place] [address] [address] [facility] [address] [address] Referral ID Status Reason Start Date Expiration Date Visits Requested Visits Authorized [id number] Pending Review Auto-Generat ed Referral 3 05/06/2024 1 1 [facility] Summary Purpose Family History No Family History Records FoundNo Family History Records Found Advance Directives No Advanced Directives Records FoundDocuments on File Type Date 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 Advance Directive(s) 04/09/2021 12:07 PM Latest Code Status on File Code Status Date Activated Date Inactivated Comments Full Code 04/07/2021 8:21 AM 04/10/2021 4:42 PM Full Code Order Discussed With: Patient Latest Code Status on File Code Status Date Activated Date Inactivated Comments Full Code 04/07/2021 8:21 AM 04/10/2021 4:42 PM Latest Code Status on File Code Status Date Activated Date Inactivated Comments Full Code 04/07/2021 8:21 AM 04/10/2021 4:42 PM Question Answer Comments Full Code Order Discussed With: Patient Latest Code Status on File Code Status Date Activated Date Inactivated Comments Full Code 04/07/2021 8:21 AM 04/10/2021 4:42 PM Question Answer Comments Full Code Order Discussed With: Patient Latest Code Status on File Code Status Date Activated Date Inactivated Comments Full Code 04/07/2021 8:21 AM 04/10/2021 4:42 PM Question Answer Comments Full Code Order Discussed With: Patient Latest Code Status on File Code Status Date Activated Date Inactivated Comments Full Code 04/07/2021 8:21 AM 04/10/2021 4:42 PM Question Answer Comments Full Code Order Discussed With: Patient Reason for Referral Specialty Diagnoses / Procedures Referred By Contac t Referred To Contact CT IMAGING Diagnoses Sarcoidosis Lung nodules Multilobar lung infiltrate Procedures CT CHEST WO IVCON DIAGNOSTIC COMPUTED TOMOGRAPHY THORAX W/O CNTRST Araceli Gonsalves MD [id number] Imaging Referral ID Status Reason Start Date Expiration Date V isits Requested Visits Authorized [id number] Closed Auto-Generate d Referral 11/12/2022 12/12/2023 1 1 Specialty Diagnoses / Procedures Referred By Contac t Referred To Contact CT IMAGING Diagnoses Lung nodules Procedures CT CHEST WO IVCON DIAGNOSTIC COMPUTED TOMOGRAPHY THORAX W/O Andrei Coombs MD [address] [place], [place] [phone] Ct Imaging Referral ID Status Reason Start Date Expiration Date Visits Requested Visits Authorized [id number] Authorized Auto-Generat ed Referral 02/26/2023 02/14/2024 1 1 Specialty Diagnoses / Procedures Referred By Contac t Referred To Contact CT IMAGING Diagnoses Lung nodule Pre-op testing Procedures CT CHEST WO IVCON DIAGNOSTIC COMPUTED TOMOGRAPHY THORAX W/O CNTRST Dung Lentz MD [phone] [facility] [place] [address] Referral ID Status Reason Start Date Expiration Date Visits Requested Visits Authorized [id number] Pending Review Auto-Generat ed Referral 03/06/2023 04/04/2024 1 1 Specialty Diagnoses / Procedures Referred By Contac t Referred To Contact CT IMAGING Diagnoses Sarcoidosis Lung nodules Multilobar lung infiltrate Procedures CT CHEST WO IVCON DIAGNOSTIC COMPUTED TOMOGRAPHY THORAX W/O KRISTINAT Araceli Gonsalves MD [phone] [facility] [place] [address] Specialty Diagnoses / Procedures Referred By Contac t Referred To Contact CT IMAGING Diagnoses Lung nodules Procedures CT CHEST WO IVCON DIAGNOSTIC COMPUTED TOMOGRAPHY THORAX W/O Andrei Coombs MD [address] [place], [place] [phone] [place] [address] Referral ID Status Reason Start Date Expiration Date V isits Requested Visits Authorized [id number] Closed Auto-Generate d Referral 02/26/2023 02/14/2024 1 1 Additional Source Comments INFORMATION SOURCE (unrecogn ized section and content) DATE CREATED AUTHOR AUTHOR'S ORGANIMELDA ATION 06/14/2023 [facility] Source Comments (unrecognize d section and content) In the event this informatio n is protected by the Federal Confidentiality of Alcohol and Drug Abuse Patient Records regulations: The Federal rules restrict any use of the information to criminally investigate or prosecute any alcohol or drug abuse patient.[facility] the event this information is protected by the Federal Confidentiality of Alcohol and Drug Abuse Patient Records regulations: The Federal rules restrict any use of the information to criminally investigate or prosecute any alcohol or drug abuse patient.[facility] the event this information is protected by the Federal Confidentiality of Alcohol and Drug Abuse Patient Records regulations: The Federal rules restrict any use of the information to criminally investigate or prosecute any alcohol or drug abuse patient.[facility] the event this information is protected by the Federal Confidentiality of Alcohol and Drug Abuse Patient Records regulations: The Federal rules restrict any use of the information to criminally investigate or prosecute any alcohol or drug abuse patient.[facility] the event this information is protected by the Federal Confidentiality of Alcohol and Drug Abuse Patient Records regulations: The Federal rules restrict any use of the information to criminally investigate or prosecute any alcohol or drug abuse patient.[facility] the event this information is protected by the Federal Confidentiality of Alcohol and Drug Abuse Patient Records regulations: The Federal rules restrict any use of the information to criminally investigate or prosecute any alcohol or drug abuse patient.[facility] the event this information is protected by the Federal Confidentiality of Alcohol and Drug Abuse Patient Records regulations: The Federal rules restrict any use of the information to criminally investigate or prosecute any alcohol or drug abuse patient.[facility] the event this information is protected by the Federal Confidentiality of Alcohol and Drug Abuse Patient Records regulations: The Federal rules restrict any use of the information to criminally investigate or prosecute any alcohol or drug abuse patient.[facility] the event this information is protected by the Federal Confidentiality of Alcohol and Drug Abuse Patient Records regulations: The Federal rules restrict any use of the information to criminally investigate or prosecute any alcohol or drug abuse patient.[facility] the event this information is protected by the Federal Confidentiality of Alcohol and Drug Abuse Patient Records regulations: The Federal rules restrict any use of the information to criminally investigate or prosecute any alcohol or drug abuse patient.[facility] the event this information is protected by the Federal Confidentiality of Alcohol and Drug Abuse Patient Records regulations: The Federal rules restrict any use of the information to criminally investigate or prosecute any alcohol or drug abuse patient.[facility] the event this information is protected by the Federal Confidentiality of Alcohol and Drug Abuse Patient Records regulations: The Federal rules restrict any use of the information to criminally investigate or prosecute any alcohol or drug abuse patient.[facility] the event this information is protected by the Federal Confidentiality of Alcohol and Drug Abuse Patient Records regulations: The Federal rules restrict any use of the information to criminally investigate or prosecute any alcohol or drug abuse patient.[facility] the event this information is protected by the Federal Confidentiality of Alcohol and Drug Abuse Patient Records regulations: The Federal rules restrict any use of the information to criminally investigate or prosecute any alcohol or drug abuse patient.[facility] the event this information is protected by the Federal Confidentiality of Alcohol and Drug Abuse Patient Records regulations: The Federal rules restrict any use of the information to criminally investigate or prosecute any alcohol or drug abuse patient.[facility] the event this information is protected by the Federal Confidentiality of Alcohol and Drug Abuse Patient Records regulations: The Federal rules restrict any use of the information to criminally investigate or prosecute any alcohol or drug abuse patient.[facility] the event this information is protected by the Federal Confidentiality of Alcohol and Drug Abuse Patient Records regulations: The Federal rules restrict any use of the information to criminally investigate or prosecute any alcohol or drug abuse patient.[facility] the event this information is protected by the Federal Confidentiality of Alcohol and Drug Abuse Patient Records regulations: The Federal rules restrict any use of the information to criminally investigate or prosecute any alcohol or drug abuse patient.[facility] the event this information is protected by the Federal Confidentiality of Alcohol and Drug Abuse Patient Records regulations: The Federal rules restrict any use of the information to criminally investigate or prosecute any alcohol or drug abuse patient.[facility] the event this information is protected by the Federal Confidentiality of Alcohol and Drug Abuse Patient Records regulations: The Federal rules restrict any use of the information to criminally investigate or prosecute any alcohol or drug abuse patient.[facility] the event this information is protected by the Federal Confidentiality of Alcohol and Drug Abuse Patient Records regulations: The Federal rules restrict any use of the information to criminally investigate or prosecute any alcohol or drug abuse patient.[facility] the event this information is protected by the Federal Confidentiality of Alcohol and Drug Abuse Patient Records regulations: The Federal rules restrict any use of the information to criminally investigate or prosecute any alcohol or drug abuse patient.[facility] the event this information is protected by the Federal Confidentiality of Alcohol and Drug Abuse Patient Records regulations: The Federal rules restrict any use of the information to criminally investigate or prosecute any alcohol or drug abuse patient.[facility] the event this information is protected by the Federal Confidentiality of Alcohol and Drug Abuse Patient Records regulations: The Federal rules restrict any use of the information to criminally investigate or prosecute any alcohol or drug abuse patient.[facility] event this information is protected by the Federal Confidentiality of Alcohol and Drug Abuse Patient Records regulations: The Federal rules restrict any use of the information to criminally investigate or prosecute any alcohol or drug abuse patient.[facility] the event this information is protected by the Federal Confidentiality of Alcohol and Drug Abuse Patient Records regulations: The Federal rules restrict any use of the information to criminally investigate or prosecute any alcohol or drug abuse patient.[facility] the event this information is protected by the Federal Confidentiality of Alcohol and Drug Abuse Patient Records regulations: The Federal rules restrict any use of the information to criminally investigate or prosecute any alcohol or drug abuse patient.[facility] the event this information is protected by the Federal Confidentiality of Alcohol and Drug Abuse Patient Records regulations: The Federal rules restrict any use of the information to criminally investigate or prosecute any alcohol or drug abuse patient.[facility] the event this information is protected by the Federal Confidentiality of Alcohol and Drug Abuse Patient Records regulations: The Federal rules restrict any use of the information to criminally investigate or prosecute any alcohol or drug abuse patient.[facility] the event this information is protected by the Federal Confidentiality of Alcohol and Drug Abuse Patient Records regulations: The Federal rules restrict any use of the information to criminally investigate or prosecute any alcohol or drug abuse patient.[facility] the event this information is protected by the Federal Confidentiality of Alcohol and Drug Abuse Patient Records regulations: The Federal rules restrict any use of the information to criminally investigate or prosecute any alcohol or drug abuse patient.[facility] Reason for Visit (unrecogniz ed section and content) Reason Onset Date Comments Refill Request 11/05/2021 Reason Onset Date Comments Refill Request 04/25/2022 Reason Onset Date Comments Refill Request 05/30/2022 Reason Onset Date Comments Patient Update 07/01/2022 Reason Comments Patient Update Reason Comments Spirometry Specialty Diagnoses / Procedures Referred By Contac t Referred To Contact [facility] [place] Diagnoses SOB (shortness of breath) Procedures SPIROMETRY BASELINE ONLY SPMTRY W/VC EXPIRATORY BRYN W/WO MXML VOL VNTJ Andrei Desai MD [address] [place], [place] [id number] Respiratory [place] [id number] Referral ID Status Reason Start Date Expiration Date V isits Requested Visits Authorized [id number] Closed Auto-Generate d Referral 11/26/2022 12/26/2023 1 1 Specialty Diagnoses / Procedures Referred By Contac t Referred To [facility] [place] Diagnoses SOB (shortness of breath) Procedures LUNG DIFFUSION CAPACITY (DLCO) DIFFUSING CAPACITY Andrei Desai MD [address] [place] [id number] Respiratory [place] [id number] Referral ID Status Reason Start Date Expiration Date V isits Requested Visits Authorized [id number] Closed Auto-Generate d Referral 11/26/2022 12/26/2023 1 1 Reason Comments Sarcoidosis Reason Onset Date Comments Bronchoscopy Scheduling- NEED Clearance 03/06/20 Initial Bronch Request Reason Comments Valvular Heart Disease Pre-Op Exam Reason Comments Radiology CT Specialty Diagnoses / Procedures Referred By Contac t Referred To Contact CT IMAGING Diagnoses Sarcoidosis Lung nodules Multilobar lung infiltrate Procedures CT CHEST WO IVCON DIAGNOSTIC COMPUTED TOMOGRAPHY THORAX W/O CNTRST Araceli Gonsalves MD [address] [place] [address] Ct Imaging [id number] Referral ID Status Reason Start Date Expiration Date V isits Requested Visits Authorized [id number] Closed Auto-Generate d Referral 11/12/2022 12/12/2023 1 1 Specialty Diagnoses / Procedures Referred By Contac t Referred To Contact CT IMAGING Diagnoses Lung nodules Procedures CT CHEST WO IVCON DIAGNOSTIC COMPUTED TOMOGRAPHY THORAX W/O CNTRST Andrei Desai MD [address] [place] [address] Ct Imaging [place] [address] Referral ID Status Reason Start Date Expiration Date V isits Requested Visits Authorized [id number] Closed Auto-Generate d Referral 02/26/2023 02/14/2024 1 1 Reason Comments Patient Question Care Teams (unrecognized sec tion and content) Director Of Reservations Relationship Specialty Start Date End Date Vera Armstrong MD [address] [place] [address] Primary Staff Physician Cardiology 03/27/23 Director Of Reservations Relationship Specialty [place] [address] [place] [address] Primary Staff Physician Cardiology 03/27/23 Director Of Reservations Relationship Specialty Start Date End Date Vera Armstrong MD [address] [place] [phone] Primary Staff Physician Cardiology 03/27/23 FOR RECORDS PERTAINING TO PATIENTS WHO ARE OR HAVE BEEN ENROLLED IN A CHEMICAL DEPENDENCY/SUBSTANCEABUSE PROGRAM, SOME INFORMATION MAY BE OMITTED. This clinical summary was aggregated from multiple sources. Caution should be exercised in using it in the provision of clinical care. This summary normalizes information from multiple sources, and as a consequence, information in this document may materially change the coding, format and clinical context of patient data. In addition, data may be omitted in some cases. CLINICAL DECISIONS SHOULD BE BASED ON THE PRIMARY CLINICAL RECORDS. [facility] [employer] [facility]. provides no warranty or guarantee of the accuracy or completeness of information in this document.
[2023-06-15 05:41] VITALS: O2SAT 92
[2023-06-15 05:48] LABS: Basophil# 0.05 X10^3/uL; Basophil% 0.3 % (0-1); Eosinophil# 0.12 X10^3/uL; Eosinophils% 0.7 % (0-5); Hematocrit 36.4 % (37-47); Hemoglobin 11.7 g/dL (12.0-15.0); Lymphocyte % 7.6 % (19-41); Mean Corp Hgb Conc 32.1 g/dL (32-36); Mean Corpuscular Hgb 29.8 pg (27.0-32.0); Mean Corpuscular Volume 92.9 fL (81-99); Mean Platelet Vol. 9.8 fl (6.2-12.0); Monocyte# 1.52 X10^3/uL; Monocyte% 8.9 % (0-10); NRBC Flagged by Analyzer 0 % (0-5); Neutrophil # 13.95 X10^3/uL (2.7-7.7); Neutrophil % 81.9 % (47-70); POSITIVE DIFFERENTIAL YES; Platelet Count 257 K/mm3 (150-450); RBC Distribution Width CV 17.5 % (11.6-14.6); RBC Distribution Width SD 58.7 fl (35.1-43.9); Red Blood Count 3.92 M/mm3 (4.2-5.4); White Blood Count 17.1 K/mm3 (4.4-11.0)
[2023-06-15 05:51] LABS: Differential Indicated SCAN CRITERIA MET
[2023-06-15 06:12] LABS: Anion Gap 6 (5-15); BUN 21 mg/dL (7-18); BUN/Creat Ratio 20.8 RATIO (10-20); Calcium,Total 8.6 mg/dL (8.5-10.1); Chloride 103 mmol/L (98-107); Creatinine, Serum 1.01 mg/dL (0.55-1.02); EST Glomerular Filtration Rate 55 mL/min (>60); Est Glom Filt Rate - Afr Amer 67 mL/min (>60); Estimated Creatinine Clearance 32.21 ml/min; Glucose 125 mg/dL (74-106); Potassium 3.8 mmol/L (3.5-5.1); Sodium Level 137 mmol/L (136-145); Troponin-I HS 37 pg/mL (3.0-54.0)
[2023-06-15 06:45] LABS: Differential Comment SCANNED
[2023-06-15 06:53] VITALS: O2SAT 96
[2023-06-15] MEDS: Amox/Clavulanate 875 MG Tablet PO (07:19)
[2023-06-15 07:20] VITALS: BP 164/54
[2023-06-18 10:20] LABS: Pathologist Review Reviewed
== END 2023-06-15 07:34 | disposition home or self-care (01) ==
PROVIDERS: Emergency Provider Emergency Medicine; PCP Family Medicine; Visit Provider Emergency Medicine
DX: J18.9 Pneumonia, unspecified organism (principal); D72.829 Elevated white blood cell count, unspecified; E78.00 Pure hypercholesterolemia, unspecified; D64.9 Anemia, unspecified; I25.10 Atherosclerotic heart disease of native coronary artery without angina pectoris; I10 Essential (primary) hypertension; I25.2 Old myocardial infarction; G47.33 Obstructive sleep apnea (adult) (pediatric); E03.9 Hypothyroidism, unspecified; Z79.82 Long term (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 aspirin; Z79.899 Other long term (current) drug therapy; Z86.16 Personal history of COVID-19; Z99.81 Dependence on supplemental oxygen; Z95.5 Presence of coronary angioplasty implant and graft
CPT/HCPCS: 71045; 80048; 84484; 85025; 87631; 93005; 99284; A4216

== ENCOUNTER → 2023-07-29 | Outpatient (CLI) | payer MEDICARE, OTHER, SELFPAY ==
[2021-07-19 10:46] VITALS: BMI 32.3
[2023-07-29 10:29] LABS: Bacteria 0 SEEN /hpf (None Seen); Mucous, Urine 0 SEEN /hpf (<or=2+); Red Blood Cells-Urine 0 SEEN /hpf (0-5); Squamous Epithelial Cells - UA 0 SEEN /hpf (5-10)
[2023-07-29 12:24] LABS: Color, Urine Yellow (Yellow); Glucose, Dipstick Normal (Normal); Ketone-Dipstick Negative (Negative); Leukocyte Esterase-Dipstick 100 /ul (Negative); Nitrite-Dipstick Negative (Negative); Occult Blood-Urine Negative /ul (Negative); Protein-Dipstick 30 mg/dl (Negative); Urine Bilirubin Dipstick Negative (Negative); Urine Clarity Clear (Clear); Urine Urobilinogen Normal (Normal)
[2023-07-29 12:36] LABS: Vitamin D,25 Hydroxy 44.2 ng/mL
[2023-07-29 12:37] LABS: PTHIN 31.9 pg/mL (18.4-80.1)
[2023-07-29 12:40] LABS: Absolute Lymphocyte Count 1.09 X10^3/uL (0.83-4.51); Absolute Neutrophil Count 5.1 X10^3/uL (2.0-7.7); Basophil# 0.05 X10^3/uL; Basophil% 0.7 % (0-1); Eosinophils% 2.9 % (0-5); Hematocrit 34.4 % (37-47); Hemoglobin 11.1 g/dL (12.0-15.0); Lymphocyte # 1.09 X10^3/ul (0.83-4.51); Lymphocyte % 15.9 % (19-41); Mean Corp Hgb Conc 32.3 g/dL (32-36); Mean Corpuscular Hgb 30.6 pg (27.0-32.0); Mean Corpuscular Volume 94.8 fL (81-99); Mean Platelet Vol. 10.3 fl (6.2-12.0); Monocyte# 0.44 X10^3/uL; Monocyte% 6.4 % (0-10); NRBC Flagged by Analyzer 0 % (0-5); Neutrophil # 5.05 X10^3/uL (2.7-7.7); Neutrophil % 73.8 % (47-70); Platelet Count 208 K/mm3 (150-450); RBC Distribution Width CV 16.9 % (11.6-14.6); RBC Distribution Width SD 58.2 fl (35.1-43.9); Red Blood Count 3.63 M/mm3 (4.2-5.4); White Blood Count 6.9 K/mm3 (4.4-11.0)
[2023-07-29 12:42] LABS: Protein, Urine (Random) 32.7 mg/dL (<11.9); Protein:Creat Ratio 911 mg/g CRE (0-200)
[2023-07-29 12:52] LABS: White Blood Cells 0-5 SEEN /hpf (0-5)
[2023-07-29 12:55] LABS: AST(SGOT) 32 U/L (15-37); Alanine Aminotransfer ALT/SGPT 37 U/L (13-56); Albumin, Serum 3.5 g/dL (3.2-5.0); Alkaline Phosphatase 68 U/L (45-117); Anion Gap 8 (5-15); BUN 17 mg/dL (7-18); BUN/Creat Ratio 20.3 RATIO (10-20); Chloride 106 mmol/L (98-107); Cholesterol 93 mg/dL (200); Creatinine, Serum 0.84 mg/dL (0.55-1.02); EST Glomerular Filtration Rate 69 mL/min (>60); Est Glom Filt Rate - Afr Amer 83 mL/min (>60); Globulin 3.5 g/dL (2.2-4.2); Glucose 110 mg/dL (74-106); High Density Lipoprotein 38 mg/dL; Magnesium 1.9 mg/dL (1.6-2.6); Phosphorus 2.8 mg/dL (2.5-4.9); Potassium 3.9 mmol/L (3.5-5.1); Sodium Level 142 mmol/L (136-145); T4 Free Direct 1.29 ng/dL (0.76-1.46); Triglycerides 115 mg/dL; Very Low Density Lipoprotein 23 mg/dL (5-40)
[2023-07-29 13:49] LABS: Hemoglobin A1c 5.9 % (3.8-5.6)
[2023-07-30 16:09] LABS: Vitamin B12 477 pg/mL (211-911)
[2023-07-30 16:29] LABS: Ferritin 165 ng/mL (8-252); Iron 64 ug/dL (50-170); Iron Binding Capacity,Total 259 ug/dL (250-450); PERCENT IRON SATURATION 24.7 % (15.0-55.0)
== END | disposition home or self-care (01) ==
LOC: MFPLAB 10:25
PROVIDERS: PCP Family Medicine; Visit Provider Family Medicine
DX: D64.9 Anemia, unspecified (principal); N18.30 Chronic kidney disease, stage 3 unspecified; E55.9 Vitamin D deficiency, unspecified; E03.9 Hypothyroidism, unspecified; R73.02 Impaired glucose tolerance (oral)
CPT/HCPCS: 36415; 80053; 80061; 81001; 82306; 82570; 82607; 82728; 83036; 83540; 83550; 83735; 83970; 84100; 84156; 84439; 84443; 85025

== ENCOUNTER → 2023-08-19 | Outpatient (CLI) | payer MEDICARE, OTHER, SELFPAY ==
[2021-07-19 10:46] VITALS: BMI 32.3
--- NOTE | 2023-08-19 08:58 | PCM.CR.HP2 ---
CR - History & Physical General Arrival date:: 08/19/23 Arrival time:: 08:58 Date of Referral:: 07/21/23 Date of CR Evaluation:: 08/19/23 Referring Physician: Dr. Rolanda Radford Primary Diagnosis: S/P TAVR History of Present Cardiac Event Onset Date Heart valve replacement or repair:: Yes (onset 07/08/23) Medications Ambulatory Orders Medication Instructions Recorded omega-3 fatty acids-fish oil 340 1 cap PO DAILY SUPPLEMENT 11/12/18 mg-1,000 mg capsule levothyroxine 100 mcg tablet 100 mcg PO DAILY thyroid 04/18/20 multivitamin 1 tab PO DAILY vitamin 02/22/21 aspirin 81 mg tablet,delayed 81 mg PO DAILY@0800 [facility] 02/27/21 release #0 tabs nitroglycerin 0.4 mg sublingual 0.4 mg sublingual Q5-15M PRN chest 03/01/21 tablet pain 10 days #25 tabs magnesium 250 mg tablet 250 mg PO DAILY Check with primary 05/30/21 doctor vitamin E (dl, acetate) 180 mg 180 mg PO DAILY Check with primary 05/30/21 (400 unit) capsule doctor ascorbic acid (vitamin C) 500 mg 500 mg PO BID supplement 08/29/21 capsule coenzyme Q10 100 mg capsule 200 mg PO DAILY coenzyme 08/29/21 folic acid 1 mg tablet 1 mg PO DAILY 08/29/21 methotrexate sodium 2.5 mg tablet 15 mg PO QWEEK 08/29/21 furosemide 40 mg tablet See Rx Instructions .Route 12/30/22 .COMPLEX PRN swelling isosorbide mononitrate 30 mg 30 mg PO BID Check with primary 01/28/23 tablet,extended release 24 hr doctor #180 tabs atorvastatin 40 mg tablet 80 mg (2 x 40 mg) PO DAILY 04/04/23 cholesterol #90 tabs clopidogrel 75 mg tablet See Rx Instructions .Route 05/12/23 .COMPLEX #90 TABLETS amoxicillin 875 mg-potassium 1 tab PO BID #14 tabs 06/15/23 clavulanate 125 mg tablet metoprolol succinate 100 mg 100 mg PO BID #180 tabs 07/14/23 tablet,extended release 24 hr amlodipine 10 mg tablet 10 mg PO DAILY #90 tabs 07/21/23 losartan 50 mg tablet 50 mg PO BID Check with primary 07/29/23 doctor #180 tabs Allergies Allergies Iodinated Contrast Media [Iodinated Contrast- Oral and IV Dye] Allergy (Intermediate, Verified 06/15/23 05:37) Rash ramipril [From Altace] Adverse Reaction (Severe, Verified 06/15/23 05:37) cough ticagrelor [From Brilinta] Adverse Reaction (Verified 06/15/23 05:37) Dyspnea Sleep Disorder Evaluation Hx of Sleep Apnea: Yes Do you snore loudly (louder than talking or can be heard through closed doors)?: No Do you often feel tired/ fatigued/ sleepy during daytime?: No Has anyone observed you stop breathing during sleep?: No History of Hypertension (for STOP score): Yes STOP Results: Negative Advanced Directives Advanced Directives Power of Machine Plaster Mixer: Yes Living Will: Yes Advance Directives Information Provided: Yes Advance Directives on File: No DNR Order?:: No Past Medical History Covid-19 Screening Physicial Symptoms Other Clinical Concerns Exposure Risk Pertinent Comorbidities 65 years or older:: Yes Has a serious heart condition:: Yes Past Medical Illness Past Medical History (Updated 06/23/23 @ 00:01 by Background Daemon) Acute febrile illness R50.9 Anemia D64.9 Angina pectoris I20.9 Anginal equivalent I20.8 Aortic insufficiency I35.1 Atherosclerotic heart disease of [place] coronary artery without angina pectoris I25.10 Previous LEANDER to proximal to mid LAD 3.0 X 32 mm Taxus 02/23/[address] Daquan Meyer, [facility];LEANDER to mid RCA 2.5 X 24 mm Synergy 01/19/[address] Patel,[facility]; PTCA/LEANDER of the mid LCX 03/10/[address] [facility]; Successful PTCA/LEANDER mid RCA with a 2.0 x 12balloon, followed by a 2.0 x 10 Angiosculpt, followed by a 2.5 x 16 Promus Synergy, post dilated with a 2.5 x 8 NC Balloon; 85%-->0%, no dissection 07/22/2018; PTCA/LEANDER to mid RCA instent restenosis 11/13/18; PTCA/NO stent to mid RCA 04/16/19; Successful PTCA/LEANDER mid RCA with a 2.0 x 10 Angiosculpt, followed with a 2.5 x 14 Resolute LEANDER, post dilated with a 2.5 x 12 NC balloon; 85%-->0%, no dissection 05/28/2019. BiPAP (biphasic positive airway pressure) dependence Z99.89 noncompliant for last 2-3 months d/t chronic cough and sob CAD (coronary artery disease) I25.10 Cardiology follow-up encounter Z09 [facility] 08/17/2020 Carotid artery disease I77.9 Chest pain R07.9 Chronic cough R05 for 2-3 months Chronic hypoxemic respiratory failure J96.11 COVID-19 U07.1 Elevated troponin R77.8 Essential hypertension I10 Hemolytic anemia D58.9 High cholesterol E78.00 on med History of echocardiogram Z92.89 2018 History of stress test Z92.89 2019 Hyperlipidemia E78.5 Hypertension I10 Hypothyroidism E03.9 Loss of appetite R63.0 for last 2=3 months/lost 19 lbs Mediastinal lymphadenopathy R59.0 Non-smoker Z78.9 Non-ST elevation (NSTEMI) myocardial infarction I21.4 Nonrheumatic aortic (valve) insufficiency I35.1 Nonrheumatic aortic (valve) stenosis I35.0 Nonrheumatic mitral (valve) insufficiency I34.0 On home oxygen therapy Z99.81 6l cont for 1 month ABDIAS (obstructive sleep apnea) G47.33 Initial AHI 35.5 Sarcoidosis D86.9 Shortness of breath on exertion R06.02 Thyroid disease E07.9 on med Valvular heart disease I38 Wears dentures Z97.2 Wears glasses Z97.3 reading and for driving Past Surgical History Past Surgical History History of axillary surgery Z98.890 removed 1 lymph node from right axilla History of cardiac catheterization Z98.890 2019 History of cholecystectomy Z90.49 History of percutaneous transluminal coronary angioplasty (04/16/19) Z98.61 PTCA/NO stent to mid RCA 04/16/19 Hx of colonoscopy Z98.890 multiple times Presence of stent in coronary artery (04/09/21) Z95.5 Successful IVUS guided PCI/LEANDER of the proximal LCX 04/09/21; Previous LEANDER to proximal to mid LAD 3.0 X 32 mm Taxus 02/23/[address] Daquan Meyer, [facility];LEANDER to mid RCA 2.5 X 24 mm Synergy [facility]; PTCA/LEANDER of the mid LCX 03/10/[address] [facility]; Successful PTCA/LEANDER mid RCA with a 2.0 x 12balloon, followed by a 2.0 x 10 Angiosculpt, followed by a 2.5 x 16 Promus Synergy, post dilated with a 2.5 x 8 NC Balloon; 85%-->0%, no dissection 07/22/2018; PTCA/LEANDER to mid RCA instent restenosis 11/13/18; PTCA/NO stent to mid RCA 04/16/19; PCI/LEANDER to RCA 05/28/1903/[id number] ultrasound-guided PCI of the 70% proximal LCx stenosis after shockwave lithotripsy with a 3.0 x 16 mm Synergy drug-eluting stent. Surgical History: angioplasty, cholecystectomy and - (Cardiac stents in 2003, one stent in January 2018, one stent in March 2018, one stent in July 2018) Family History Summary Family History Mother , Age 63 Myocardial infarction Father , Age 28 Colon cancer Other Heart disease Social History Smoking History Smoking Status: Never smoker Occupation Occupation (List type of work in comments):: Retired Hobbies, Recreation, Social Activities Hobbies: None Social Environment Status Marital Status: Current Living Arrangements Living Environment:: Spouse Children How many children do you have?: 4 Do any of your children live nearby?: Yes Safety Do you feel safe in your surroundings?: Yes Assistance Do you need any assistance at home?: no Review of Systems Review of Systems Hints Review of Present Symptoms: Reports Fatigue and Sleep - Normal; Denies Shortness of Breath at Rest, Shortness of Breath with Exertion, PVD, Operative Discomfort, Angina, Wound Healing, Dizziness/Lightheadedness, Heart Arrhythmia/Irregularities, Appetite - Normal, Appetite - Special Diet or Sexual Changes Pain Is Patient Pain Free?: Yes Risk Factor Assessment Chief Complaint Chief Complaint: S/P TAVR Vital Signs Pulse Ox: 95 Pulse Pulse Rate: 64 Hypertension Blood Pressure Sitting - Left Arm: 124/44 Obesity Height: 5 ft 2 in Weight:: 147 lb Weight in Pounds: 147.0 lbs Body Mass Index (BMI): 26.9 Physical Inactivity Physical Inactivity: Reg Exercise 30 min/day (walking, housework) Risk Stratification Risk Guidelines: Lowest Risk: Risk Factor for Smoking, Moderate Risk: Risk Factor for Diabetes, Risk Factor for Obesity, Risk Factor for Sedentary Lifestyle and Risk Factor for Depression and Highest Risk: Risk Factor for Dyslipidemia and Risk Factor for Hypertension For Smoking Smoking Risk Guidelines For Dyslipidemia Dyslipidemia Risk Guidelines For Diabetes Mellitus Diabetes Risk Guidelines For Obesity/Overweight Obesity/Overweight Risk Guidelines For Hypertension Hypertension Risk Guidelines For Sedentary Lifestyle Sedentary Lifestyle Risk Guidelines For Depression Depression Risk Guidelines Family History Family History Mother Myocardial infarction Father Colon cancer Other Heart disease Motivation Motivation to Participate On a scale of 1 to 10, how prepared are you to commit to attending program?: 5 What do you see as barriers to successfully being able to complete the program?: none What do you see as the benefits of succesfully completing the program? In other words, what do you hope to get out of participating in the program?: more energy Are there issues you are dealing with that will interfere with completing the program?: no Do you have a spouse or signficant other, family or friends who will help support you to complete the program?: yes
--- NOTE | 2023-08-19 09:06 | PCM.CR.ITP ---
Diagnosis General Information Admitting Diagnosis: S/P TAVR Personal Learning Style:: Audio/Visual Stage of change r/t lifestyle modifications:: Contemplation Gave educational material for:: Treating Heart Disease, How The Heart Works, What it means to have Heart Disease, How Coronary Artery Disease is Diagnosed, Heart Procedures, What Heart Medications Do, Risk Factors & Modifications, Living an Active Life, Nutrition, Emotions & Heart Disease, Stress Management & Relaxation and Sleep Disorders & Heart Disease Education/Goals Cardiac Rehabilitation Goals Personal Goals: Initial Assessment: Improve management of stress and emotions, Improve muscle strength and endurance, Improve diet and eating habits (eat healthier) and Control risk factors (learn risk factor modification) Scale for measuring improvement of personal goals Diagnosis & Disease Process Outcomes/Goals: Pt IDs own risk factors & lifestyle modifications by Session 10, Verbalizes symptoms of angina & response by session 3., Pt independently manages and Other Additional Outcomes/Goals: Plan/Interventions: Assist Pt to ID & engage in lifestyle modification to reduce CVD risk, Instruct on individual risk factors, Review symptoms of angina & emergency actions, Review secondary diagnosis & identify educational needs. and Other see comment 30 day Reassessments:: Not Met 30 day Reassessments:: Not Met 30 day Reassessments:: Not Met 30 day Reassessments:: Not Met Final Reassessments:: Not Met Safety Referral to Physical Therapy: No Referral to [facility] Case Management: No Fall Risk Assessed:: Yes Assistive Devices:: None Exercise - Initial Assessment Visit Date of Eval: 08/19/23 (initial eval ) Mets: Pre-: >3 METS for 30 minutes by discharge, >5 METS for 30 minutes by discharge, >7 METS for 30 minutes by discharge and Unable to meet goal due to: (see comment below) Physician Prescribed Exercise Modalities: Treadmill, Rower, Airdyne, NuStep, SciFit and Lateral It Network Administrator Frequency: 2x/week for 18 weeks [36 sessions] and 3x/week for 12 weeks [36 sessions] Intensity: 60-80% of age predicted maximum heart rate reserve Duration: 30 - 45 minutes Current METSs:: 3 Target Heart Rate:: 81-95 Resting Blood Pressure: 124/44 EKG Type: SR BBB Outcomes & Goals Goals:: Verbalizes understanding of THR, RPE & goal METS by session 6, Documents in home exercise log/reports 30 min aerobic 5 day/wk by DC, Demonstrates accurate pulse taking by DC and Other additional outcome/goals: see below Intervention & Plan Exercise Program Goals: Instruct on personal THR & RPE, Instruct on MET level & personal MET goal, Show patient to take own pulse /validate performance until accurate, Instruct on home exercise and Other additional plan/int Physical Activity Home Exercise Physical Activity - Home Exercise: Safe Exercise, Warm-up, Self-monitoring, Cool-Down, Home Exercise > 30 min Daily and Sitting Time <3 hours/daily Outcomes & Goals Outcomes/Goals: Demonstrates correct Warm-up/exercise Cool-Down (S3) if = 2.5 METs, Verbalizes symptoms of exercise intolerance by Session 3 (S3), Demonstrate safe equipment use (S3) & follows exercise prescrition (6) and Other: See below Intervention & Plan Plan/Intervention: Instruct warm-up & cool-down if exercising at > 2 METs, Instruct on symptoms of exercise intolerance & actions to take, Instruct & monitor on saf, Assess intial functional capacity & safety risk and Other See below Nutrition - Initial Assessment Program Goals Nutrition Program Goals Patient has diagnosis of Hyperlipidemia (ICD E78)?: Yes Visit Date of Eval: 08/19/23 (initial eval ) Cholesterol/Lipids (Other Core Measures) Determine presence & major risk factors that modify LDL goal: Hypertension or hypertensive medication, Low HDL cholesterol <40 mg/dL*, Family history of premature CHD in Male < 55 years: female <65 yearsFa and Age men > 45 years; women >/= 55 years Outcomes/Goals: Pt IDs own risk factors & lifestyle modifications by Session 10, Verbalizes symptoms of angina & response by session 3., Pt independently manages and Other Additional Outcomes/Goals: Intervention/Plan: Advocate for lipid panel cholesterol medication if applicable, Instruct on personal lipid levels & lipid goals/NCEP guidelines, Instruct on cholesterol and Other additional plan/int Referral to dietitian:: No Diabetes (Other Core Measures) Diabetes Type: Not Applicable Weight Mgt (Other Care) Height: 5 ft 2 in Weight:: 147 lb BMI: 26.9 Diagnosis Overweight/Obesity BMI> 30% ICD-10 E66: No Diagnosis High BMI/Morbid Obesity BMI> 35% ICD-10 Z68: No Outcomes/Goals: Pt sets, maintains & shows weight loss goal & trend during rehab and Other additional outcomes/goals Intervention/Plan: Instruct on ideal BMI & set weight loss goal w/patient, Assist pt to ID & incorporate diet changes for weight loss by S9, Refer to Structured Weight Loss program as appropriate, Encourage goal of using 250-300dcal per session for weight loss and Other additional plan/interventions Healthy Eating Habits Will attend diet classes:: Yes Outcomes/Goals:: Consume diet rich in vegs,fruits,whole grain/high fiber,fish,lean meat, Limit sat/trans fats,cholesterol & added salts & sugars and Other additional outcome/goals: Intervention/Plan:: Assess current eating habits and Other Additional plan/interventions Education Gave educational materials for:: Signs & symptoms of hypoglycemia, Signs & symptoms of hyperglycemia, Relate diabetes to coronary artery disease and Healthy eating Core - Initial Assessment Visit Date of Eval: 08/19/23 (initial eval ) Medication Compliance Preventative Medication(s):: Aspirin, Clopidogrel/P2Y12 inhibit, Statin/lipid, Beta skylar and ARB (Angiotensi Rcap) H/O mental health issues: depression, anxiety, or addiction?: No Doesn?t believe in the benefits of treatment?: No Believes medications are unnecessary or harmful?: No Has a concern about medication side effects?: No Expresses concern over the cost of medications?: No Outcomes/Goals: Verbalizes medications,desired effect & common side effects @ DC, Pt self-reports following medication regimen, Keeps card in wallet w/medications listed by DC and Other additional outcome/goals: Interventions/plans: Instruct on medication effects & side effects, Review medication list w/patient every two weeks, Instruct importance of taking meds as ordered & assist problem solving and Other additional Tobacco Use Tobacco Use: Non-smoker Hypertension Hypertension Diagnosis:: Hypertension ICD-10 I10 [employer] Hypertension Guidelines Outcomes/Goals: Able to verbalize/achieve optimal blood pressure <130/80, Incorporates diet changes & exercise for blood pressure control by DC and Other additional outcomes/goals Interventions/plan: Instruct on optimal blood pressure, hypertension & medications, Instruct on effects of sodium, alcohol, stress, exercise &hypertension and Other additional plan/interventions Tobacco Cessation Referral Individual Education/Counseling:: No Education Schedule Given:: Yes Psychosocial - Initial Assess VIsit Date of Eval: 08/19/23 (initial eval ) History of previous Mental disease:: No Target Goals Target Goals Outcomes/Goals: See list Psychosocial Outcomes/Goals:: ID's personal stressors & 2 strategies to manage stress by discharge and Other Additional outcome/goals: Intervention/Plan: See List Interventions/Plan:: Assess stressors,coping strategies & signs of derpression on admission, Instruct/assist pt to develop coping & personal stress Mgt strategies, Refer to Behavioral Health if appropriate, Refer to Physician if appropriate, Instruct patient to recognize signs & symptoms of depression, Instruct patient to recog and Other additional plan/intervention Patient Health Questionnaire PHQ-9 Screening Initial Assessment: 1. Little interest or pleasure in doing things: More than half the days 2. Feeling down, depressed, or hopeless: Several days 3. Trouble falling or staying asleep, or sleeping too much: Several days 4. Feeling tired or having little energy: Nearly every day 5. Poor appetite or overeating: Nearly every day 6. Feeling bad about yourself -- or that you are a failure or have let yourself or your family down: Not at all 7. Trouble concentrating on things, such as reading the newspaper or watching television: Not at all 8. Moving or speaking so slowly that other people could have noticed. Or the opposite - being so fidgety or restless that you have been moving around a lot more than usual: Not at all 9. Thoughts that you would be better off , or of hurting yourself in some way: Not at all How difficult have these problems made it for you to do your work, take care of things at home, or get along with other people?: Not difficult at all Total Score: 10 SARAH-Q SV Test Statements CAD is a disease of the arteries in the heart: False Examples of risk factors for heart disease: True Angina is chest pain or discomfort: True The benefits of resistance training include: True Eating more meat and dairy products: True Anti-platelet medications such as aspirin are important: I Don't Know The only effective way to manage stress: False An exercise warm-up slowly increases heart rate: True Prepared, processed foods usually have high sodium: True Depression is common after a heart attack: I Don't Know The statin medications lower cholesterol: True To control blood pressure, lower the amount of sodium: True If someone gets chest discomfort during walking: False Transfats are partially hydrogenated vegetable oils: True Sleep apnea that is not treated increases the risk: I Don't Know To control cholesterol, one should become a vegetarian: False Someone knows if he/she is exercising at the right level: True Diabetes cannot be prevented with exercise & health eating: False Stress is a large risk for heart attack: True A diet that can help lower blood pressure is rich in: True Total Score Total Correct Responses: 16 Self-Efficacy 6-Item Scale Initial Assessment: We would like to know how confident you are in doing certain activities. Please select your confidence level for: Fatigue Select Number: 6 Physical Discomfort or Pain Select Number: 8 Emotional Distress Select Number: 7 Other Symptoms or Health Problems Select Number: 7 Different Tasks and Activities Select Number: 6 Medication Select Number: 6 Total Score:: 6 Nutrition Survey Nutrition Survey Instructions Scoring Instructions Nutrition Survey Initial: Have you lost >10 lbs over the past 2 months without trying?: Yes Are you following a special diet at home for diabetes, low fat, or low salt?: Yes Are you interested in meeting with a dietitian for help understanding your diet?: No Do you eat less than 3 meals a day?: No Do you eat fatty meats (cadet, sausage, ribs, etc), fried foods, desserts, large amounts of salad dressings, margarine, butter, or cheese most days?: No Do you have food allergies? [Enter types in comment field]: No Do you eat in restaurants more than 3 times a week?: No Do you season food with salt, seasoning salt, or garlic salt?: Yes Do you used canned, boxed, frozen meals, or soups, seasoning packets?: No Total Score:: 3 Exercise - Final/Discharge Physician Prescribed Exercise Modalities: Treadmill, Rower, Airdyne, NuStep, SciFit and Lateral It Network Administrator Frequency: 2x/week for 18 weeks [36 sessions] and 3x/week for 12 weeks [36 sessions] Intensity: 60-80% of age predicted maximum heart rate reserve Current METSs:: 3 Target Heart Rate:: 81-95 Nutrition - 30-Day Assessment Weight Mgt (Other Care) Height: 5 ft 2 in Weight:: 147 lb BMI: 26.9 Nutrition - 60-Day Assessment Weight Mgt (Other Care) Height: 5 ft 2 in Weight:: 147 lb BMI: 26.9 Psychosocial - 30-Day Assess Target Goals Target Goals Psychosocial - 60-Day Assess Target Goals Target Goals Psychosocial - 90-Day Assess Target Goals Target Goals Psychosocial - Final Assessmen Target Goals Target Goals Nutrition - 90-Day Assessment Weight Mgt (Other Care) Height: 5 ft 2 in Weight:: 147 lb BMI: 26.9 Nutrition - Final Assessment Program Goals Patient has diagnosis of Hyperlipidemia (ICD E78)?: Yes Weight Mgt (Other Care) Height: 5 ft 2 in Weight:: 147 lb BMI: 26.9
[2023-08-19 09:24] VITALS: PULSE 64; O2SAT 95
[2023-08-19 09:26] VITALS: BP 124/44
[2023-08-19 09:51] VITALS: BP 124/44; BMI 26.9
[2023-08-19 09:56] VITALS: BMI 26.9
== END | disposition home or self-care (01) ==
PROVIDERS: PCP Nurse Practitioner Family
DX: Z95.2 Presence of prosthetic heart valve (principal)

== ENCOUNTER → 2023-09-02 | Outpatient (CLI) | payer MEDICARE, OTHER, SELFPAY ==
[2023-08-19 09:51] VITALS: BMI 26.9
[2023-09-02 12:26] LABS: T4 Free Direct 1.23 ng/dL (0.76-1.46); Thyroid Stim Hormone (TSH) 0.23 uIU/mL (0.358-3.74)
== END | disposition home or self-care (01) ==
PROVIDERS: PCP Nurse Practitioner Family; Referring Provider Nurse Practitioner Family; Visit Provider Nurse Practitioner Family
DX: E03.9 Hypothyroidism, unspecified (principal)
CPT/HCPCS: 36415; 84439; 84443

== ENCOUNTER 2023-09-12 13:00 | Outpatient (RCR) | payer MEDICARE, OTHER, SELFPAY ==
[2023-08-19 09:51] VITALS: BMI 26.9
== END 2023-09-14 23:59 ==
LOC: CR 13:00
PROVIDERS: PCP Nurse Practitioner Family
DX: Z95.2 Presence of prosthetic heart valve (principal)
CPT/HCPCS: 93798

== ENCOUNTER 2023-10-13 13:00 | Outpatient (RCR) | payer MEDICARE, OTHER, SELFPAY ==
[2023-08-19 09:51] VITALS: BMI 26.9
--- NOTE | 2023-09-19 10:11 | PCM.CR.ITP ---
Exercise - Initial Assessment Visit Session #:: 11 Nutrition - Initial Assessment Weight Mgt (Other Care) Height: 5 ft 2 in Weight:: 148 lb BMI: 27.1 Psychosocial - Initial Assess Target Goals Target Goals Patient Health Questionnaire PHQ-9 Screening 30-Day Re-eval Assessment: 1. Little interest or pleasure in doing things: More than half the days 2. Feeling down, depressed, or hopeless: Several days 3. Trouble falling or staying asleep, or sleeping too much: Several days 4. Feeling tired or having little energy: Nearly every day 5. Poor appetite or overeating: Nearly every day 6. Feeling bad about yourself -- or that you are a failure or have let yourself or your family down: Not at all 7. Trouble concentrating on things, such as reading the newspaper or watching television: Not at all 8. Moving or speaking so slowly that other people could have noticed. Or the opposite - being so fidgety or restless that you have been moving around a lot more than usual: Not at all 9. Thoughts that you would be better off , or of hurting yourself in some way: Not at all How difficult have these problems made it for you to do your work, take care of things at home, or get along with other people?: Not difficult at all Total Score: 10 Self-Efficacy 6-Item Scale 30-Day Re-eval Assessment: We would like to know how confident you are in doing certain activities. Please select your confidence level for: Fatigue Select Number: 6 Physical Discomfort or Pain Select Number: 8 Emotional Distress Select Number: 7 Other Symptoms or Health Problems Select Number: 7 Different Tasks and Activities Select Number: 6 Medication Select Number: 6 Total Score:: 6 Nutrition Survey Nutrition Survey Instructions Scoring Instructions Exercise - 30-day Assessment Visit Date of Eval: 09/19/23 Session #:: 11 Physician Prescribed Exercise Modalities: Treadmill, SciFit and Lateral [place] Frequency: 3x/week for 12 weeks [36 sessions] Intensity: 60-80% of age predicted maximum heart rate reserve Duration: 30 - 45 minutes Current METSs:: 3 Target Heart Rate:: 81-95 Current RPE:: 11-12 Maximum Excercise HR:: 87 Resting Blood Pressure: 128/44 Maximum Exercise Blood Pressure: 158/68 EKG Type: SB to NSRwith occas pac and pvc Outcomes & Goals Goals:: Verbalizes understanding of THR, RPE & goal METS by session 6, Documents in home exercise log/reports 30 min aerobic 5 day/wk by DC, Demonstrates accurate pulse taking by DC and Other additional outcome/goals: see below Intervention & Plan Exercise Program Goals: Instruct on personal THR & RPE, Instruct on MET level & personal MET goal, Show patient to take own pulse /validate performance until accurate, Instruct on home exercise and Other additional plan/int 30-day Reassessments 30 day Reassessments:: Progressing Reassessment Notes & Comments:: RPE explained Physical Activity Home Exercise Physical Activity - Home Exercise: Safe Exercise, Warm-up, Self-monitoring, Cool-Down, Home Exercise > 30 min Daily and Sitting Time <3 hours/daily Outcomes & Goals Outcomes/Goals: Demonstrates correct Warm-up/exercise Cool-Down (S3) if = 2.5 METs, Verbalizes symptoms of exercise intolerance by Session 3 (S3), Demonstrate safe equipment use (S3) & follows exercise prescrition (6) and Other: See below Intervention & Plan Plan/Intervention: Instruct warm-up & cool-down if exercising at > 2 METs, Instruct on symptoms of exercise intolerance & actions to take, Instruct & monitor on saf, Assess intial functional capacity & safety risk and Other See below 30-day Reassessments 30 day Reassessments:: Progressing Reassessment Notes & Comments:: warm up encouraged Nutrition - 30-Day Assessment Program Goals Nutrition Program Goals Patient has diagnosis of Hyperlipidemia (ICD E78)?: Yes Visit Date of Eval: 09/19/23 Session #:: 11 Cholesterol/Lipids (Other Core Measures) Determine presence & major risk factors that modify LDL goal: Hypertension or hypertensive medication, Low HDL cholesterol <40 mg/dL*, Family history of premature CHD in Male < 55 years: female <65 yearsFa and Age men > 45 years; women >/= 55 years Outcomes/Goals: Pt IDs own risk factors & lifestyle modifications by Session 10, Verbalizes symptoms of angina & response by session 3., Pt independently manages and Other Additional Outcomes/Goals: Intervention/Plan: Advocate for lipid panel cholesterol medication if applicable, Instruct on personal lipid levels & lipid goals/NCEP guidelines, Instruct on cholesterol and Other additional plan/int 30-day Reassessments:: Progressing Reassessment Notes & Comments:: pt to attend nutrition class Diabetes (Other Core Measures) Diabetes Type: Not Applicable Weight Mgt (Other Care) Height: 5 ft 2 in Weight:: 148 lb BMI: 27.1 Diagnosis Overweight/Obesity BMI> 30% ICD-10 E66: No Diagnosis High BMI/Morbid Obesity BMI> 35% ICD-10 Z68: No Outcomes/Goals: Pt sets, maintains & shows weight loss goal & trend during rehab and Other additional outcomes/goals Intervention/Plan: Instruct on ideal BMI & set weight loss goal w/patient, Assist pt to ID & incorporate diet changes for weight loss by S9, Refer to Structured Weight Loss program as appropriate, Encourage goal of using 250-300dcal per session for weight loss and Other additional plan/interventions 30 day Reassessments:: Progressing Reassessment Notes & Comments:: pt to attend nutrition class Healthy Eating Habits Will attend diet classes:: Yes Outcomes/Goals:: Consume diet rich in vegs,fruits,whole grain/high fiber,fish,lean meat, Limit sat/trans fats,cholesterol & added salts & sugars and Other additional outcome/goals: Intervention/Plan:: Assess current eating habits and Other Additional plan/interventions 30-day Reassessments:: Progressing Reassessment Notes & Comments:: pt to attend nutrition class Education Gave educational materials for:: Signs & symptoms of hypoglycemia, Signs & symptoms of hyperglycemia, Relate diabetes to coronary artery disease and Healthy eating Nutrition - 60-Day Assessment Weight Mgt (Other Care) Height: 5 ft 2 in Weight:: 148 lb BMI: 27.1 Core - 30-Day Assessment Visit Date of Eval: 09/19/23 Session #:: 11 Medication Compliance Preventative Medication(s):: Aspirin, Clopidogrel/P2Y12 inhibit, Statin/lipid, Beta skylar and ARB (Angiotensi Rcap) H/O mental health issues: depression, anxiety, or addiction?: No Doesn?t believe in the benefits of treatment?: No Believes medications are unnecessary or harmful?: No Has a concern about medication side effects?: No Expresses concern over the cost of medications?: No Outcomes/Goals: Verbalizes medications,desired effect & common side effects @ DC, Pt self-reports following medication regimen, Keeps card in wallet w/medications listed by DC and Other additional outcome/goals: Interventions/plans: Instruct on medication effects & side effects, Review medication list w/patient every two weeks, Instruct importance of taking meds as ordered & assist problem solving and Other additional 30-day Reassessments:: Met Tobacco Use Tobacco Use: Non-smoker Hypertension Hypertension Diagnosis:: Hypertension ICD-10 I10 Resting Blood Pressure:: 128/44 [place] [employer] Hypertension Guidelines Peak Exercise Blood Pressure:: 158/68 Outcomes/Goals: Able to verbalize/achieve optimal blood pressure <130/80, Incorporates diet changes & exercise for blood pressure control by DC and Other additional outcomes/goals Interventions/plan: Instruct on optimal blood pressure, hypertension & medications, Instruct on effects of sodium, alcohol, stress, exercise &hypertension and Other additional plan/interventions 30 day Reassessments:: Met Tobacco Cessation Referral Smoking Cessation Referral:: No Individual Education/Counseling:: No Education Schedule Given:: Yes Psychosocial - 30-Day Assess VIsit Date of Eval: 09/19/23 Session #:: 11 History of previous Mental disease:: No Target Goals Target Goals Outcomes/Goals: See list Psychosocial Outcomes/Goals:: ID's personal stressors & 2 strategies to manage stress by discharge and Other Additional outcome/goals: Intervention/Plan: See List Interventions/Plan:: Assess stressors,coping strategies & signs of derpression on admission, Instruct/assist pt to develop coping & personal stress Mgt strategies, Refer to Behavioral Health if appropriate, Refer to Physician if appropriate, Instruct patient to recognize signs & symptoms of depression, Instruct patient to recog and Other additional plan/intervention 30-day Reassessments: 30 day Reassessments:: Met Psychosocial - 60-Day Assess Target Goals Target Goals Outcomes/Goals: See list Psychosocial Outcomes/Goals:: ID's personal stressors & 2 strategies to manage stress by discharge and Other Additional outcome/goals: Psychosocial - 90-Day Assess Target Goals Target Goals Psychosocial - Final Assessmen Target Goals Target Goals Nutrition - 90-Day Assessment Weight Mgt (Other Care) Height: 5 ft 2 in Weight:: 148 lb BMI: 27.1 Nutrition - Final Assessment Weight Mgt (Other Care) Height: 5 ft 2 in Weight:: 148 lb BMI: 27.1
[2023-09-19 10:19] VITALS: BP 128/44; BMI 27.1
== END 2023-10-14 23:59 ==
LOC: CR 13:00
PROVIDERS: PCP Nurse Practitioner Family
DX: Z95.2 Presence of prosthetic heart valve (principal)
CPT/HCPCS: 93798

== ENCOUNTER → 2023-10-27 | Outpatient (CLI) | payer MEDICARE, OTHER, SELFPAY ==
[2023-09-19 10:19] VITALS: BMI 27.1
== END | disposition home or self-care (01) ==
LOC: PSN 11:24
PROVIDERS: PCP Nurse Practitioner Family; Referring Provider Physician Assistant Medical; Visit Provider Physician Assistant Medical
DX: R00.0 Tachycardia, unspecified (principal); R06.02 Shortness of breath
CPT/HCPCS: 93225; 93226

== ENCOUNTER 2023-11-14 13:00 | Outpatient (RCR) | payer MEDICARE, OTHER, SELFPAY ==
[2023-09-19 10:19] VITALS: BMI 27.1
[2023-10-15 00:42] VITALS: BP 128/44
== END 2023-11-14 23:59 ==
LOC: CR 13:00
PROVIDERS: PCP Nurse Practitioner Family
DX: Z95.2 Presence of prosthetic heart valve (principal)
CPT/HCPCS: 93798

== ENCOUNTER 2023-12-01 14:00 | Outpatient (RCR) | payer MEDICARE, OTHER, SELFPAY ==
[2023-09-19 10:19] VITALS: BMI 27.1
[2023-11-15 01:02] VITALS: BP 128/44
--- NOTE | 2023-11-17 10:35 | CR.ITP_ITS ---
Exercise - Initial Assessment Physician Prescribed Exercise Modalities: SciFit Stepper and SciFit Lateral [place] Nutrition - Initial Assessment Weight Mgt (Other Care) Height: 5 ft 2 in Weight:: 143 lb BMI: 26.2 Psychosocial - Initial Assess Target Goals Target Goals Patient Health Questionnaire PHQ-9 Screening 90-Day Re-eval Assessment: 1. Little interest or pleasure in doing things: More than half the days 2. Feeling down, depressed, or hopeless: Several days 3. Trouble falling or staying asleep, or sleeping too much: Several days 4. Feeling tired or having little energy: Nearly every day 5. Poor appetite or overeating: Nearly every day 6. Feeling bad about yourself -- or that you are a failure or have let yourself or your family down: Not at all 7. Trouble concentrating on things, such as reading the newspaper or watching television: Not at all 8. Moving or speaking so slowly that other people could have noticed. Or the opposite - being so fidgety or restless that you have been moving around a lot more than usual: Not at all 9. Thoughts that you would be better off , or of hurting yourself in some way: Not at all How difficult have these problems made it for you to do your work, take care of things at home, or get along with other people?: Not difficult at all Total Score: 10 Self-Efficacy 6-Item Scale 90-Day Re-eval Assessment: We would like to know how confident you are in doing certain activities. Please select your confidence level for: Fatigue Select Number: 6 Physical Discomfort or Pain Select Number: 8 Emotional Distress Select Number: 7 Other Symptoms or Health Problems Select Number: 7 Different Tasks and Activities Select Number: 6 Medication Select Number: 6 Total Score:: 6 Nutrition Survey Nutrition Survey Instructions Scoring Instructions Exercise - 30-day Assessment Physician Prescribed Exercise Modalities: SciFit Stepper and SciFit Lateral [place] Exercise - 60-day Assessment Physician Prescribed Exercise Modalities: SciFit Stepper and SciFit Lateral [place] Exercise - 90-day Assessment Visit Date of Eval: 11/17/23 Session #:: 30 Physician Prescribed Exercise Modalities: SciFit Stepper and SciFit Lateral Rehab Director Occupational Therapist Frequency: 3x/week for 12 weeks [36 sessions] Intensity: 60-80% of age predicted maximum heart rate reserve Duration: 30 - 45 minutes Current METSs:: 3.6 Target Heart Rate:: 81-95 Current RPE:: 11-12 Maximum Excercise HR:: 100 Resting Blood Pressure: 140/60 Maximum Exercise Blood Pressure: 140/60 EKG Type: SB to NSR with occa pac/pjc, occ pvc noted Outcomes & Goals Goals:: Verbalizes understanding of THR, RPE & goal METS by session 6, Documents in home exercise log/reports 30 min aerobic 5 day/wk by DC, Demonstrates accurate pulse taking by DC and Other additional outcome/goals: see below Intervention & Plan Exercise Program Goals: Instruct on personal THR & RPE, Instruct on MET level & personal MET goal, Show patient to take own pulse /validate performance until accurate, Instruct on home exercise and Other additional plan/int 30-day Reassessments 30 day Reassessments:: Met Physical Activity Home Exercise Physical Activity - Home Exercise: Safe Exercise, Warm-up, Self-monitoring, Cool-Down, Home Exercise > 30 min Daily and Sitting Time <3 hours/daily Outcomes & Goals Outcomes/Goals: Demonstrates correct Warm-up/exercise Cool-Down (S3) if = 2.5 METs, Verbalizes symptoms of exercise intolerance by Session 3 (S3), Demonstrate safe equipment use (S3) & follows exercise prescrition (6) and Other: See below Intervention & Plan Plan/Intervention: Instruct warm-up & cool-down if exercising at > 2 METs, Instruct on symptoms of exercise intolerance & actions to take, Instruct & monitor on saf, Assess intial functional capacity & safety risk and Other See below 30-day Reassessments 30 day Reassessments:: Met Exercise - Final/Discharge Physician Prescribed Exercise Modalities: SciFit Stepper and SciFit Lateral [place] Nutrition - 30-Day Assessment Weight Mgt (Other Care) Height: 5 ft 2 in Weight:: 143 lb BMI: 26.2 Nutrition - 60-Day Assessment Weight Mgt (Other Care) Height: 5 ft 2 in Weight:: 143 lb BMI: 26.2 Core - 90 Day Assessment Medication Compliance Preventative Medication(s):: Aspirin, Clopidogrel/P2Y12 inhibit, Statin/lipid, Beta skylar and ARB (Angiotensi Rcap) H/O mental health issues: depression, anxiety, or addiction?: No Doesn?t believe in the benefits of treatment?: No Believes medications are unnecessary or harmful?: No Has a concern about medication side effects?: No Expresses concern over the cost of medications?: No Outcomes/Goals: Verbalizes medications,desired effect & common side effects @ DC, Pt self-reports following medication regimen, Keeps card in wallet w/medications listed by DC and Other additional outcome/goals: Interventions/plans: Instruct on medication effects & side effects, Review medication list w/patient every two weeks, Instruct importance of taking meds as ordered & assist problem solving and Other additional 30-day Reassessments:: Met Tobacco Use Tobacco Use: Non-smoker Hypertension Hypertension Diagnosis:: Hypertension ICD-10 I10 Resting Blood Pressure:: 140/60 [place] [employer] Hypertension Guidelines Peak Exercise Blood Pressure:: 140/60 Outcomes/Goals: Able to verbalize/achieve optimal blood pressure <130/80, Incorporates diet changes & exercise for blood pressure control by DC and Other additional outcomes/goals Interventions/plan: Instruct on optimal blood pressure, hypertension & medications, Instruct on effects of sodium, alcohol, stress, exercise &hypertension and Other additional plan/interventions 30 day Reassessments:: Met Tobacco Cessation Referral Smoking Cessation Referral:: No Individual Education/Counseling:: No Education Schedule Given:: Yes Psychosocial - 30-Day Assess Target Goals Target Goals Psychosocial - 60-Day Assess Target Goals Target Goals Psychosocial - 90-Day Assess VIsit Date of Eval: 11/17/23 Session #:: 30 History of previous Mental disease:: No Target Goals Target Goals Outcomes/Goals: See list Psychosocial Outcomes/Goals:: ID's personal stressors & 2 strategies to manage stress by discharge and Other Additional outcome/goals: 30-day Reassessments: 30 day Reassessments:: Met Psychosocial - Final Assessmen Target Goals Target Goals Nutrition - 90-Day Assessment Program Goals Nutrition Program Goals Patient has diagnosis of Hyperlipidemia (ICD E78)?: Yes Visit Date of Eval: 11/17/23 Session #:: 30 Cholesterol/Lipids (Other Core Measures) Determine presence & major risk factors that modify LDL goal: Hypertension or hypertensive medication, Low HDL cholesterol <40 mg/dL*, Family history of premature CHD in Male < 55 years: female <65 yearsFa and Age men > 45 years; women >/= 55 years Outcomes/Goals: Pt IDs own risk factors & lifestyle modifications by Session 10, Verbalizes symptoms of angina & response by session 3., Pt independently manages and Other Additional Outcomes/Goals: Intervention/Plan: Advocate for lipid panel cholesterol medication if applicable, Instruct on personal lipid levels & lipid goals/NCEP guidelines, Instruct on cholesterol and Other additional plan/int 30-day Reassessments:: Met Diabetes (Other Core Measures) Diabetes Type: Not Applicable Weight Mgt (Other Care) Height: 5 ft 2 in Weight:: 143 lb BMI: 26.2 Diagnosis Overweight/Obesity BMI> 30% ICD-10 E66: No Diagnosis High BMI/Morbid Obesity BMI> 35% ICD-10 Z68: No Outcomes/Goals: Pt sets, maintains & shows weight loss goal & trend during rehab and Other additional outcomes/goals Intervention/Plan: Instruct on ideal BMI & set weight loss goal w/patient, Assist pt to ID & incorporate diet changes for weight loss by S9, Refer to S tructured Weight Loss program as appropriate, Encourage goal of using 250- 300dcal per session for weight loss and Other additional plan/interventions 30 day Reassessments:: Met Healthy Eating Habits Will attend diet classes:: Yes Outcomes/Goals:: Consume diet rich in vegs,fruits,whole grain/high fiber, fish,lean meat, Limit sat/trans fats,cholesterol & added salts & sugars and Other additional outcome/goals: Intervention/Plan:: Assess current eating habits and Other Additional plan/interventions 30-day Reassessments:: Not Met Education Gave educational materials for:: Signs & symptoms of hypoglycemia, Signs & symptoms of hyperglycemia, Relate diabetes to coronary artery disease and Healthy eating Nutrition - Final Assessment Weight Mgt (Other Care) Height: 5 ft 2 in Weight:: 143 lb BMI: 26.2
[2023-11-17 10:39] VITALS: BP 140/60
[2023-11-17 10:44] VITALS: BP 140/60; BMI 26.2
== END 2023-12-14 23:59 ==
LOC: CR 14:00
PROVIDERS: PCP Nurse Practitioner Family
DX: Z95.2 Presence of prosthetic heart valve (principal)
CPT/HCPCS: 93798

== ENCOUNTER → 2024-04-30 | Outpatient (CLI) | payer MEDICARE, OTHER, SELFPAY ==
[2023-11-17 10:44] VITALS: BMI 26.2
[2024-04-30 17:52] LABS: T4 Free Direct 1.08 ng/dL (0.76-1.46); Thyroid Stim Hormone (TSH) 0.447 uIU/mL (0.358-3.740)
== END | disposition home or self-care (01) ==
LOC: BFHLAB 14:17
PROVIDERS: PCP Nurse Practitioner Family; Referring Provider Nurse Practitioner Family; Visit Provider Nurse Practitioner Family
DX: E03.9 Hypothyroidism, unspecified (principal)
CPT/HCPCS: 36415; 84439; 84443

== ENCOUNTER → 2024-08-13 | Outpatient (CLI) | payer MEDICARE, OTHER, SELFPAY ==
[2023-11-17 10:44] VITALS: BMI 26.2
--- NOTE | 2024-08-13 13:40 | ECHOD_ITS ---
Reason For Study Reason For Study: tavr Procedure This was a 2D Doppler, Color Flow transthoracic echocardiogram. Exam performed in department. Left Ventricle Normal LV size. The estimated ejection fraction is 70 %. Unable to assess diastolic dysfunction. No regional wall motion abnormalities noted. Right Ventricle Normal RV size. Normal systolic function. Atria The left atrium is mildly enlarged. Normal right atrium. No doppler evidence for ASD. Mitral Valve There is severe mitral annular calcification. There is no mitral valve stenosis. Mild (1+) mitral valve insufficiency. Tricuspid Valve There is no tricuspid stenosis. Mild tricuspid valve insufficiency. Pulmonary artery systolic pressure is 45 mmHg. Aortic Valve There is no aortic stenosis. No aortic valve insufficiency. Stable appearing bioprosthetic aortic valve apparatus. Pulmonic Valve There is no pulmonic valvular stenosis. No pulmonic valve insufficiency. Great Vessels Normal sized aortic root. Pericardium/Pleural No pericardial effusion. MMode/2D Measurements & Calculations LVIDd: 4.5 cm IVSd: 1.4 cm LVOT diam: 1.5 cm LVIDs: 3.0 cm LVPWd: 1.1 cm LVOT area: 1.7 cm2 RVDd: 2.9 cm FS: 33.3 % Ao root diam: 2.8 cm LAV(MOD-sp4): 64.3 ml LVAd ap4: 23.6 cm2 LVLd ap4: 7.1 cm EDV(MOD-sp4): 64.5 ml EDV(sp4-el): 66.4 ml LVAs ap4: 10.8 cm2 LVLs ap4: 5.6 cm ESV(MOD-sp4): 19.3 ml ESV(sp4-el): 17.7 ml EF(MOD-sp4): 70.1 % EF(sp4-el): 73.3 % SV(MOD-sp4): 45.2 ml SV(sp4-el): 48.7 ml LA A4 area: 21.5 cm2 SI(MOD-sp4): 27.2 ml/m2 LA dimension(2D): 4.3 cm RA A4 area: 14.0 cm2 Time Measurements MV dec time: 0.29 sec Doppler Measurements & Calculations MV E max phuc: 122.3 cm/sec Lat Peak E' Phuc: 8.9 cm/sec Med Peak E' Phuc: 4.5 cm/sec MV A max phuc: 108.4 cm/sec E/E' lat: 13.7 E/E' med: 27.1 MV E/A: 1.1 MV V2 max: 155.7 cm/sec Ao V2 max: 204.8 cm/sec MV max P.7 mmHg MV dec slope: 428.3 cm/sec2 Ao max P.8 mmHg MV V2 mean: 82.5 cm/sec Ao V2 mean: 146.6 cm/sec MV mean P.3 mmHg Ao mean P.6 mmHg MV V2 VTI: 53.2 cm Ao V2 VTI: 48.8 cm AV (velocity ratio): 0.91 MVA(VTI): 1.5 cm2 SHELTON(I,D): 1.6 cm2 SHELTON(V,D): 1.5 cm2 LV V1 max: 175.9 cm/sec SV(LVOT): 77.5 ml LV V1 max P.4 mmHg LV V1 mean P.8 mmHg LV V1 mean: 133.6 cm/sec LV V1 VTI: 44.4 cm ECHO/Echo Complete Interpretation Summary The estimated ejection fraction is 70 %. The left atrium is mildly enlarged. Mild (1+) mitral valve insufficiency. Ordering Physician: Nomi Almaraz Referring Physician: Nomi Almaraz Performed By: Lynn Valles RCS
== END | disposition home or self-care (01) ==
LOC: CVS 13:39
PROVIDERS: PCP Nurse Practitioner Family; Referring Provider Internal Medicine Cardiovascular Disease; Visit Provider Internal Medicine Cardiovascular Disease
DX: I35.0 Nonrheumatic aortic (valve) stenosis (principal)
CPT/HCPCS: 93306

== ENCOUNTER 2024-08-27 22:02 | Emergency (ER) | payer MEDICARE, OTHER, SELFPAY ==
[2023-11-17 10:44] VITALS: BMI 26.2
[2024-08-27 22:03] VITALS: BP 174/69; PULSE 80; RESP 16; TEMP 37.6; O2SAT 94; BMI 28.7
--- NOTE | 2024-08-27 22:27 | EKG12_ITS ---
Test Reason : DYSRHYTHMIA Blood Pressure : */* mmHG Vent. Rate : 79 BPM Atrial Rate : 288 BPM P-R Int : * ms QRS Dur : 82 ms QT Int : 370 ms P-R-T Axes : 42 2 45 degrees QTcB Int : 424 ms Normal sinus rhythm Confirmed by FREDDIE WYNN, DAMIR ([id number]), editor trade journal SUMI PEREZ ([id number]) on 08/30/2024 11:03:57 AM Referred By: Confirmed By: DAMIR FRAZIER MD
[2024-08-27] MEDS: Aspirin 81 MG TAB.CHEW 324 MG PO (22:36)
[2024-08-27 22:39] LABS: Absolute Neutrophil Count 8.2 X10^3/uL (2.0-7.7); Basophil# 0.06 X10^3/uL; Basophil% 0.5 % (0-1); Eosinophils% 14.3 % (0-5); Hematocrit 36.7 % (37-47); Hemoglobin 12.6 g/dL (12.0-15.0); Lymphocyte % 8.8 % (19-41); Mean Corp Hgb Conc 34.3 g/dL (32-36); Mean Corpuscular Hgb 31.1 pg (27.0-32.0); Mean Corpuscular Volume 90.6 fL (81-99); Mean Platelet Vol. 9.8 fl (6.2-12.0); Monocyte# 1.33 X10^3/uL; Monocyte% 10.6 % (0-10); NRBC Flagged by Analyzer 0 % (0-5); Neutrophil # 8.21 X10^3/uL (2.7-7.7); Neutrophil % 65.3 % (47-70); Platelet Count 205 K/mm3 (150-450); RBC Distribution Width CV 14.4 % (11.6-14.6); RBC Distribution Width SD 47.8 fl (35.1-43.9); Red Blood Count 4.05 M/mm3 (4.2-5.4); White Blood Count 12.6 K/mm3 (4.4-11.0)
--- NOTE | 2024-08-27 22:40 | ED.VIS.CHEST ---
HPI History of Present Illness Chief Complaint: Chest Pain Detail of Chief Complaint: Left-sided chest pressure Onset/Context/Timing Onset: Hours Activity at onset: sudden, onset and rest Timing: Intermittent and Lasts (1 to 1.5 hours) Quality: Positive for Pressure Location: Left Chest Current Severity: Gone Maximum Severity: Moderate Worsened By: Nothing Relieved By: Nothing Associated Symptoms: Negative for Nausea, Vomiting, Diaphoresis, Dyspnea (Patient reports she has had dyspnea for several months.), Cough, Fever, Lightheadedness, Acid Reflux or Palpitations Narrative Narrative: Patient is an 88-year-old woman. She has known coronary disease with placement of 9 stents and aortic valve replacement. She has history of edema that is chronic as well as hyperlipidemia, essential hypertension, obstructive sleep apnea, and multiple valvular disease with insufficiency of the mitral, aortic. She does have history of autoimmune disorder. Patient states she was sitting when she developed chest pressure left side of her chest at 8 PM. There is no associated symptoms. There is no radiation. She denies orthopnea or PND. She endorses chronic swelling of her legs. Prior Similar Symptoms: Yes and With Prior Angina Recent Illness/Hospitalization: No CVD Risk Factors: Positive for Hypertension and Hypercholesterolemia; Negative for Diabetes or Family History 1' </=55 PE Risk Factors: Negative for Recent Travel/Surgery, Recent Immobilization, Prior DVT or PE, Cancer or OCP + Smoking + >/=35 TAD Risk Factors: Positive for Hypertension; Negative for Marfan's Syndrome or Family History [facility] Medical History Sarcoidosis COVID-19 Hemolytic anemia Anemia Non-ST elevation (NSTEMI) myocardial infarction Elevated troponin Hypertension Wears glasses Wears dentures Thyroid disease High cholesterol Non-smoker BiPAP (biphasic positive airway pressure) dependence On home oxygen therapy Shortness of breath on exertion Loss of appetite Chronic cough History of echocardiogram History of stress test Cardiology follow-up encounter Chronic hypoxemic respiratory failure Mediastinal lymphadenopathy Acute febrile illness Essential hypertension Angina pectoris Chest pain ABDIAS (obstructive sleep apnea) Anginal equivalent Nonrheumatic mitral (valve) insufficiency Nonrheumatic aortic (valve) insufficiency Nonrheumatic aortic (valve) stenosis Carotid artery disease Atherosclerotic heart disease of [place] coronary artery without angina pectoris CAD (coronary artery disease) Valvular heart disease Hypothyroidism Aortic insufficiency Hyperlipidemia Home Medications ?Medication ?Instructions ?Recorded ?Last Taken ?Type levothyroxine 100 mcg tablet 100 mcg PO DAILY thyroid 04/18/20 06/25/21 06:00 History multivitamin 1 tab PO DAILY vitamin 02/22/21 02/21/21 History aspirin 81 mg tablet,delayed 81 mg PO DAILY@0800 [facility] 02/27/21 06/25/21 08:00 Rx release #0 tabs nitroglycerin 0.4 mg sublingual 0.4 mg sublingual Q5-15M PRN chest 03/01/21 Unknown Rx tablet pain 10 days #25 tabs magnesium 250 mg tablet 250 mg PO DAILY Check with primary 05/30/21 Unknown History doctor vitamin E (dl, acetate) 180 mg 180 mg PO DAILY Check with primary 05/30/21 06/25/21 08:00 History (400 unit) capsule doctor ascorbic acid (vitamin C) 500 mg 500 mg PO BID supplement 08/29/21 Unknown History capsule coenzyme Q10 100 mg capsule 200 mg PO DAILY coenzyme 08/29/21 Unknown History furosemide 40 mg tablet See Rx Instructions .Route 12/30/22 Unknown History .COMPLEX PRN swelling metoprolol succinate 25 mg 25 mg PO BID #180 tabs 11/07/23 Unknown Rx tablet,extended release 24 hr losartan 50 mg tablet 50 mg PO QDAY Check with primary 01/12/24 Unknown History doctor atorvastatin 40 mg tablet 40 mg PO DAILY #90 tabs 01/28/24 Unknown Rx isosorbide mononitrate 30 mg 30 mg PO BID #180 tabs 01/28/24 Unknown Rx tablet,extended release 24 hr folic acid 400 mcg tablet 0.4 mg PO QDAY 05/12/24 Unknown History selenium 200 mcg capsule 200 mcg PO QDAY 05/12/24 Unknown History clopidogrel 75 mg tablet See Rx Instructions .Route 05/17/24 Unknown Rx .COMPLEX #90 TABLETS amlodipine 10 mg tablet 10 mg PO DAILY #90 tabs 07/19/24 Unknown Rx Allergy/AdvReac Type Severity Reaction Status Date / Time Iodinated Contrast Media Allergy Intermediate Rash Verified 08/27/24 22:03 (Iodinated Contrast- Oral and IV Dye) ramipril (From Altace) AdvReac Severe cough Verified 08/27/24 22:03 ticagrelor (From Brilinta) AdvReac Dyspnea Verified 08/27/24 22:03 Family History Mother , Age 63 Myocardial infarction Father , Age 28 Colon cancer Other Heart disease Surgical History H/O cataract removal with insertion of prosthetic lens S/P TAVR (transcatheter aortic valve replacement) Hx of colonoscopy History of cardiac catheterization History of axillary surgery History of percutaneous transluminal coronary angioplasty (04/16/19) Presence of stent in coronary artery (04/09/21) History of cholecystectomy Social History Smoking Status: Never smoker second hand exposure: No alcohol intake: never substance use type: does not use caffeine: Yes Type: coffee Number of servings: 1 what type of physical activity do you participate in: none frequency: does not exercise ROS ROS ED Constitutional Constitutional ED: Denies chills, fever(s), subjective or sweats Eyes Eyes: Reports none ENT ENT ED: Denies rhinorrhea or sore throat Cardiovascular Cardiovascular: Reports as per HPI; Denies orthopnea or paroxysmal nocturnal dyspnea Respiratory/Chest Respiratory/Chest: Reports dyspnea and dyspnea on exertion; Denies cough, orthopnea or paroxysmal nocturnal dyspnea Gastrointestinal Gastrointestinal: Reports other Details: There is no history of hiatal hernia, GERD or peptic ulcer disease. ; Denies abdominal pain, melena, nausea or vomiting Genitourinary Genitourinary ED: Denies dysuria, hematuria or urinary frequency Musculoskeletal Musculoskeletal: Denies arthralgias or myalgias Integumentary Denies rash Neurologic Neurologic: Denies headache(s), paresthesias or weakness Hematologic/Lymphatic Hematologic/Lymphatic: Denies easy bleeding or easy bruising EXAM Physical Exam Const Vital Signs: 08/27/24 22:03 08/27/24 22:27 08/27/24 22:56 Temperature 99.6 F H Temperature Source Oral Pulse Rate 80 70 Respiratory Rate 16 16 Respiratory Effort Blood Pressure 174/69 H Blood Pressure Mean 104 Pulse Ox 94 Oxygen Delivery Method Room Air Room Air 08/27/24 23:00 08/27/24 23:15 08/27/24 23:30 Temperature Temperature Source Pulse Rate 69 67 63 Respiratory Rate 19 H 19 H 18 Respiratory Effort Blood Pressure 152/62 H 136/59 H 135/56 H Blood Pressure Mean 87 79 78 Pulse Ox Oxygen Delivery Method 08/27/24 23:43 08/27/24 23:45 08/28/24 00:00 Temperature Temperature Source Pulse Rate 68 67 Respiratory Rate 21 H 14 Respiratory Effort Normal Non-Labored Blood Pressure 145/56 H 94/82 H Blood Pressure Mean 80 88 Pulse Ox Oxygen Delivery Method 08/28/24 00:15 08/28/24 00:30 08/28/24 00:30 Temperature Temperature Source Pulse Rate 63 62 62 Respiratory Rate 13 19 H 19 H Respiratory Effort Blood Pressure 121/59 H 131/59 H 131/59 H Blood Pressure Mean 78 79 79 Pulse Ox Oxygen Delivery Method 08/28/24 03:00 Temperature Temperature Source Pulse Rate 59 L Respiratory Rate 15 Respiratory Effort Blood Pressure 146/57 H Blood Pressure Mean 86 Pulse Ox Oxygen Delivery Method Positive well nourished and well developed General Appearance ED: well developed and NAD; Negative for pallor HEENT Reports moist mucous membranes normocephalic and atraumatic Eyes PERRL and EOMs intact bilaterally General Eye ED: Negative for pale conjunctiva or scleral icterus Neck no lymphadenopathy, supple and no JVD Resp normal respiratory effort and clear to auscultation bilaterally Cardio regular rate, regular rhythm, S1 normal heart sound, S2 normal heart sound and no murmurs GI normal to inspection, nondistended, normoactive bowel sounds, soft to palpation, non-tender, non-distended and no masses; Negative for hepatosplenomegaly Back/Spine no CVA tenderness Extremity normal to inspection General Extremety ED: Negative for edema or pulses abnormal General Extremity: Negative for edema or pulses abnormal Neuro oriented x3 and CN's II-XII intact bilaterally Sensorium / Orientation: awake and alert Motor Exam: strength 5/5 throughout Psych mental status grossly normal Mood & Affect: Negative for depressed or anxious Skin no rashes or lesions noted General Skin Exam: Negative for jaundice or pallor MDM MDM MDM Narrative Medical decision making narrative: Need to evaluate for cardiac versus noncardiac etiology. Cardiac etiology would be acute ischemia, ST elevation WA, non-ST elevation [place], angina. Not on would be pulmonary or GI in etiology. To evaluate patient's chest discomfort EKG was obtained as well as chest x-ray, appropriate blood work including serial troponin levels especially in light of the fact that she has 9 stents. Lab Data Attestation: I reviewed the patient's lab results. Lab results narrative: White count is elevated 12.6. There is evidence of eosinophilia. This may be due to her autoimmune disorder. H&H is unremarkable. First troponin is slightly elevated at 19. Glucose is elevated 144 with a normal CO2 no anion gap. Estimated GFR is 55, which is patient's baseline. BUN and creatinine are normal at 19 and 1.0. Second troponin is 16 with a delta of -3 and third troponin is 15 with a delta of -1. In my opinion this does not represent cardiac chest pain and should be discharged to home. Labs: Laboratory Results - last 24 hr 08/27/24 08/28/24 08/28/24 22:30 00:29 01:39 WBC 12.6 H RBC 4.05 L Hgb 12.6 Hct 36.7 L MCV 90.6 MCH 31.1 MCHC 34.3 RDW Std Deviation 47.8 H RDW Coeff of Martha 14.4 Plt Count 205 MPV 9.8 Immature Gran % (Auto) 0.500 Neut % (Auto) 65.3 Lymph % (Auto) 8.8 L [place] % (Auto) 10.6 H Eos % (Auto) 14.3 H Baso % (Auto) 0.5 Absolute Neuts (auto) 8.2 H Absolute Lymphs (auto) 1.10 Nucleated RBC % 0 Sodium 135 Potassium 4.2 Chloride 98 Carbon Dioxide 21.0 Anion Gap 15 BUN 19 Creatinine 1.00 Estim Creat Clear Calc 37.32 L Est GFR (MDRD) Non-Af 55 L BUN/Creatinine Ratio 18.8 Glucose 144 H Calcium 9.5 Troponin T High Sens 19 H Troponin T Hi Sens 2 Hr Cancelled 16 H Troponin T Hi Sens 4Hr 08/28/24 02:54 WBC RBC Hgb Hct MCV MCH MCHC RDW Std Deviation RDW Coeff of Martha Plt Count MPV Immature Gran % (Auto) Neut % (Auto) Lymph % (Auto) [place] % (Auto) Eos % (Auto) Baso % (Auto) Absolute Neuts (auto) Absolute Lymphs (auto) Nucleated RBC % Sodium Potassium Chloride Carbon Dioxide Anion Gap BUN Creatinine Estim Creat Clear Calc Est GFR (MDRD) Non-Af BUN/Creatinine Ratio Glucose Calcium Troponin T High Sens Troponin T Hi Sens 2 Hr Troponin T Hi Sens 4Hr 15 H Radiography Chest X-Ray - ED: 2 View and Read by ED Physician (Independently interpreted by me at 2310. There is chronic changes noted and comparison films used May 2023 and October 2022. Cardiac silhouette size normal. Lung parenchyma shows chronic changes. She has degenerative changes of the dorsal spine. No evidence of pneumothorax, hemothorax, infiltr) Diagnostic Testing: Clinical Impression(s) from Imaging Studies Chest X-Ray 08/27/24 22:42 IMPRESSION: NO ACUTE FINDINGS. Reading Location: [facility] EKG Initial EKG: Attestation: I personally reviewed and interpreted this EKG as follows: Interpretation: Sinus Rhythm (Rate is 79. Patient is normal sinus rhythm not a flutter as read by computer. VA interval is normal. QRS duration 82 ms. QT duration 170 ms. Stuart is normal.) Treatment and Re-Evaluation :: Patient and were informed that her cardiac markers do not indicate that the chest pain was due to a heart attack or compromise of blood flow to her heart. Therefore will discharge to home. Discharge Plan Triage Chief Complaint: Chest Pain ED Provider: Jose Carrera Dx/Rx/DC Orders Clinical Impression: Chest pressure, Carotid artery disease, ABDIAS (obstructive sleep apnea), Essential hypertension, Hyperlipidemia, Hypothyroidism, S/P TAVR (transcatheter aortic valve replacement), History of coronary artery disease Instructions: ED Chest Pain, Noncardiac, ED Chest Pain, Uncertain Cause Prescriptions: No Action vitamin E (dl, acetate) 180 mg (400 unit) capsule 180 mg PO DAILY magnesium 250 mg tablet 250 mg PO DAILY furosemide 40 mg tablet See Rx Instructions .ROUTE .COMPLEX PRN (Reason: swelling) Dose Instruction: take 1 tablet by mouth once daily Rx Instructions: take 1 tablet by mouth once daily PRN; losartan 50 mg tablet 50 mg PO QDAY Rx Instructions: Hold for SBP less than 130 mmHg folic acid 400 mcg tablet 0.4 mg PO QDAY selenium 200 mcg capsule 200 mcg PO QDAY ascorbic acid (vitamin C) 500 mg capsule 500 mg PO BID coenzyme Q10 100 mg capsule 200 mg PO DAILY levothyroxine 100 MCG tablet 100 mcg PO DAILY multivitamin Tablet 1 tab PO DAILY aspirin 81 MG tablet 81 mg PO DAILY@0800 Qty: 0 0RF nitroglycerin 0.4 mg tablet, sublingual 0.4 mg SUBLINGUAL Q5-15M PRN (Reason: chest pain) 10 Days Qty: 25 3RF metoprolol succinate 25 mg tablet extended release 24 hr 25 mg PO BID Qty: 180 3RF atorvastatin 40 mg tablet 40 mg PO DAILY Qty: 90 3RF isosorbide mononitrate 30 mg tablet extended release 24 hr 30 mg PO BID Qty: 180 3RF clopidogrel 75 mg tablet See Rx Instructions .ROUTE .COMPLEX Qty: 90 3RF Dose Instruction: take 1 tablet by mouth once daily Rx Instructions: take 1 tablet by mouth once daily amlodipine 10 mg tablet 10 mg PO DAILY Qty: 90 3RF Primary Care Provider: Alicia Mata Referrals: Alicia Mata, [employer] [Primary Care Provider] - 3-5 Days Print Language: [place] Disposition Disposition: Home, Self Care
--- NOTE | 2024-08-27 22:42 | RAD_ITS ---
PROCEDURE: CHEST PA AND LATERAL 08/27/2024 REASON FOR EXAM: CHEST PAIN TECHNIQUE: Frontal and lateral views of the chest. COMPARISON: 06/15/2023 FINDINGS: Suspect transcatheter aortic valve replacement. The heart size is normal. The mediastinal contour is unremarkable. The lungs are clear. The bones are unremarkable. RAD/Chest PA and Lateral IMPRESSION: NO ACUTE FINDINGS. Reading Location: [id number]
[2024-08-27 22:56] VITALS: PULSE 70; RESP 16
[2024-08-27 23:00] VITALS: BP 152/62; PULSE 69; RESP 19
[2024-08-27 23:07] LABS: Anion Gap 15 (5-15); BUN 19 mg/dL (4-19); BUN/Creat Ratio 18.8 RATIO (10-20); Calcium,Total 9.5 mg/dL (7.6-11.0); Chloride 98 mmol/L (98-108); EST Glomerular Filtration Rate 55 (>60); Estimated Creatinine Clearance 37.32 ml/min (50-250); Glucose 144 mg/dL (70-99); Potassium 4.2 mmol/L (3.3-5.1); Sodium Level 135 mmol/L (133-145); Troponin T High Sensitivity 19 ng/L (<=14)
[2024-08-27 23:15] VITALS: BP 136/59; PULSE 67; RESP 19
[2024-08-27 23:30] VITALS: BP 135/56; PULSE 63; RESP 18
[2024-08-27 23:45] VITALS: BP 145/56; PULSE 68; RESP 21
[2024-08-28] VITALS: BP 94/82; PULSE 67; RESP 14
[2024-08-28 00:15] VITALS: BP 121/59; PULSE 63; RESP 13
[2024-08-28 00:30] VITALS: BP 131/59; PULSE 62; RESP 19
[2024-08-28 02:30] LABS: Troponin T High Sens 2 HR 16 ng/L (<=14)
[2024-08-28 03:00] VITALS: BP 146/57; PULSE 59; RESP 15
[2024-08-28 03:23] LABS: Troponin T High Sens 4 HR 15 ng/L (<=14)
[2024-08-28 04:00] VITALS: BP 157/59; PULSE 68; RESP 14
[2024-08-28 04:08] VITALS: BP 157/59; PULSE 68; RESP 14; TEMP 36.6; O2SAT 93
== END 2024-08-28 04:10 | disposition home or self-care (01) ==
PROVIDERS: Emergency Provider Emergency Medicine; PCP Nurse Practitioner Family; Visit Provider Emergency Medicine
DX: R07.89 Other chest pain (principal); I10 Essential (primary) hypertension; D86.9 Sarcoidosis, unspecified; M79.89 Other specified soft tissue disorders; I34.0 Nonrheumatic mitral (valve) insufficiency; I35.2 Nonrheumatic aortic (valve) stenosis with insufficiency; I25.2 Old myocardial infarction; E03.9 Hypothyroidism, unspecified; E78.00 Pure hypercholesterolemia, unspecified; I25.10 Atherosclerotic heart disease of native coronary artery without angina pectoris; G47.33 Obstructive sleep apnea (adult) (pediatric); Z95.5 Presence of coronary angioplasty implant and graft; Z95.2 Presence of prosthetic heart valve; Z90.49 Acquired absence of other specified parts of digestive tract; Z79.02 Long term (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 antithrombotics/antiplatelets; Z79.82 Long term (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 aspirin; Z79.899 Other long term (current) drug therapy; Z79.890 Hormone replacement therapy
CPT/HCPCS: 71046; 80048; 84484; 85025; 93005; 99283; A4216

== ENCOUNTER → 2024-08-31 | Outpatient (CLI) | payer MEDICARE, OTHER, SELFPAY ==
[2023-11-17 10:44] VITALS: BMI 26.2
[2024-08-31 15:00] LABS: Absolute Lymphocyte Count 1.04 X10^3/uL (0.83-4.51); Basophil# 0.06 X10^3/uL; Basophil% 0.5 % (0-1); Eosinophil# 1.16 X10^3/uL; Eosinophils% 9.9 % (0-5); Hematocrit 36.1 % (37-47); Hemoglobin 12.1 g/dL (12.0-15.0); Lymphocyte # 1.04 X10^3/ul (0.83-4.51); Lymphocyte % 8.8 % (19-41); Mean Corp Hgb Conc 33.5 g/dL (32-36); Mean Corpuscular Hgb 30.3 pg (27.0-32.0); Mean Corpuscular Volume 90.5 fL (81-99); Mean Platelet Vol. 10.5 fl (6.2-12.0); Monocyte# 1.43 X10^3/uL; Monocyte% 12.1 % (0-10); NRBC Flagged by Analyzer 0 % (0-5); Neutrophil # 8.01 X10^3/uL (2.7-7.7); Neutrophil % 68.1 % (47-70); Platelet Count 237 K/mm3 (150-450); RBC Distribution Width CV 14.4 % (11.6-14.6); RBC Distribution Width SD 48.1 fl (35.1-43.9); Red Blood Count 3.99 M/mm3 (4.2-5.4); White Blood Count 11.8 K/mm3 (4.4-11.0)
[2024-08-31 15:41] LABS: ALB/GLOB Ratio 0.9 RATIO (0.9-2.4); AST(SGOT) 33 U/L (<=31); Alanine Aminotransfer ALT/SGPT 22 U/L (<=34); Albumin, Serum 3.7 g/dL (3.4-4.8); Alkaline Phosphatase 62 U/L (35-104); Anion Gap 11 (5-15); BUN 23 mg/dL (4-19); BUN/Creat Ratio 18.1 RATIO (10-20); Calcium,Total 9.2 mg/dL (7.6-11.0); Carbon Dioxide 23.9 mmol/L (21.0-32.0); Chloride 96 mmol/L (98-108); Creatinine, Serum 1.28 mg/dL (0.70-1.20); EST Glomerular Filtration Rate 41 (>60); Globulin 4.2 g/dL (2.2-4.2); Glucose 129 mg/dL (70-99); Potassium 4.1 mmol/L (3.3-5.1); Protein, Total 7.9 g/dL (5.9-8.4); Sodium Level 131 mmol/L (133-145); Total Bilirubin 0.86 mg/dL (0.00-1.30)
== END | disposition home or self-care (01) ==
LOC: BFHLAB 13:28
PROVIDERS: PCP Nurse Practitioner Family; Visit Provider Nurse Practitioner Family
DX: I10 Essential (primary) hypertension (principal); E03.9 Hypothyroidism, unspecified
CPT/HCPCS: 36415; 80053; 84439; 84443; 85025

== ENCOUNTER 2024-09-06 13:31 | Inpatient (IN) | payer MEDICARE, OTHER, SELFPAY ==
[2023-11-17 10:44] VITALS: BMI 26.2
[2024-09-06] VITALS (16 sets, daily range): BP systolic 112–164; BP diastolic 41–92; PULSE 45–102; RESP 12–40; TEMP 36.8–37.6; O2SAT 79–98; BMI 27.6
--- NOTE | 2024-09-06 14:09 | EKG12_ITS ---
Test Reason : CP Blood Pressure : */* mmHG Vent. Rate : 90 BPM Atrial Rate : 90 BPM P-R Int : 132 ms QRS Dur : 84 ms QT Int : 362 ms P-R-T Axes : * 31 86 degrees QTcB Int : 442 ms Sinus rhythm with frequent Premature ventricular complexes in a pattern of bigeminy Otherwise normal ECG Confirmed by IVA WYNN, DANA ([id number]), legal editor JANETT MURPHY ([id number]) on 09/08/2024 8:15:34 AM Referred By: Jose Carrera Confirmed By: DANA ENRIQUE MD
--- NOTE | 2024-09-06 14:12 | EX.ED.DYSGE1 ---
HPI History of Present Illness Chief Complaint: Shortness of Breath Detail of Chief Complaint: Shortness of breath Informant: patient, spouse/S.O. and family Onset/Context/Timing Onset: - (From day after visit for chest pain August 27 to several days prior to this visit. Depend) Context: Sudden Onset Timing: Continuous Quality: Dyspnea, thirsty, chills per Location: Respiratory Current Severity: Moderate Maximum Severity: Severe Worsened by: Activity Relieved by: Nothing Associated Symptoms Associated Symptoms: Shaking chills and subjective fever Narrative Narrative: Patient is an 88-year-old woman she has multiple medical problems which include coronary disease with placement of 6 stents, status post TAVR procedure, autoimmune hemolytic anemia, hyperlipidemia, essential hypertension, P?ANCA titer positive, obstructive sleep apnea and multiple nonrheumatic valvular heart disease. She did have aortic valve replacement. Per it was a bovine valve. Patient has not been feeling well for the past several days. She had poor p.o. intake especially solids. She denies headache, rhinorrhea, congestion postnasal drainage. Denies sore throat. She denies neck pain. She does have a cough. Family thought it was productive; the patient states it is not productive. She denies nausea or vomiting. 110 member thought she had diarrhea. Patient stated no. She denies urologic symptoms. Prior similar symptoms: No Recent Illness/Hospitalization: [facility] Medical History Sarcoidosis COVID-19 Hemolytic anemia Anemia Non-ST elevation (NSTEMI) myocardial infarction Elevated troponin Hypertension Wears glasses Wears dentures Thyroid disease High cholesterol Non-smoker BiPAP (biphasic positive airway pressure) dependence On home oxygen therapy Shortness of breath on exertion Loss of appetite Chronic cough History of echocardiogram History of stress test Cardiology follow-up encounter Chronic hypoxemic respiratory failure Mediastinal lymphadenopathy Acute febrile illness Essential hypertension Angina pectoris Chest pain ABDIAS (obstructive sleep apnea) Anginal equivalent Nonrheumatic mitral (valve) insufficiency Nonrheumatic aortic (valve) insufficiency Nonrheumatic aortic (valve) stenosis Carotid artery disease Atherosclerotic heart disease of [place] coronary artery without angina pectoris CAD (coronary artery disease) Valvular heart disease Hypothyroidism Aortic insufficiency Hyperlipidemia Home Medications ?Medication ?Instructions ?Recorded ?Last Taken ?Type multivitamin 1 tab PO DAILY vitamin 02/22/21 09/06/24 History aspirin 81 mg tablet,delayed 81 mg PO DAILY@0800 [facility] 02/27/21 09/06/24 Rx release #0 tabs nitroglycerin 0.4 mg sublingual 0.4 mg sublingual Q5-15M PRN chest 03/01/21 Unknown Rx tablet pain 10 days #25 tabs magnesium 250 mg tablet 250 mg PO DAILY Check with primary 05/30/21 09/06/24 History doctor vitamin E (dl, acetate) 180 mg 180 mg PO DAILY Check with primary 05/30/21 09/06/24 History (400 unit) capsule doctor ascorbic acid (vitamin C) 500 mg 1,000 mg PO BID supplement 08/29/21 09/06/24 History capsule coenzyme Q10 100 mg capsule 200 mg PO DAILY coenzyme 08/29/21 09/06/24 History furosemide 40 mg tablet See Rx Instructions .Route 12/30/22 Unknown History .COMPLEX PRN swelling metoprolol succinate 25 mg 25 mg PO BID #180 tabs 11/07/23 09/06/24 Rx tablet,extended release 24 hr losartan 50 mg tablet 50 mg PO DAILY Check with primary 01/12/24 09/06/24 History doctor atorvastatin 40 mg tablet 40 mg PO DAILY #90 tabs 01/28/24 09/05/24 Rx isosorbide mononitrate 30 mg 30 mg PO BID #180 tabs 01/28/24 09/06/24 Rx tablet,extended release 24 hr folic acid 400 mcg tablet 0.4 mg PO QDAY 05/12/24 09/06/24 History selenium 200 mcg capsule 200 mcg PO QDAY 05/12/24 09/06/24 History clopidogrel 75 mg tablet See Rx Instructions .Route 05/17/24 09/06/24 Rx .COMPLEX #90 TABLETS amlodipine 10 mg tablet 10 mg PO DAILY 09/06/24 09/06/24 History levothyroxine 88 mcg tablet 88 mcg PO DAILY 09/06/24 09/06/24 History Allergy/AdvReac Type Severity Reaction Status Date / Time Iodinated Contrast Media Allergy Intermediate Rash Verified 09/06/24 13:45 (Iodinated Contrast- Oral and IV Dye) ramipril (From Altace) AdvReac Severe cough Verified 09/06/24 13:45 ticagrelor (From Brilinta) AdvReac Dyspnea Verified 09/06/24 13:45 Family History Mother , Age 63 Myocardial infarction Father , Age 28 Colon cancer Other Heart disease Surgical History H/O cataract removal with insertion of prosthetic lens S/P TAVR (transcatheter aortic valve replacement) Hx of colonoscopy History of cardiac catheterization History of axillary surgery History of percutaneous transluminal coronary angioplasty (04/16/19) Presence of stent in coronary artery (04/09/21) History of cholecystectomy Social History Smoking Status: Never smoker second hand exposure: No alcohol intake: never substance use type: does not use caffeine: Yes Type: coffee Number of servings: 1 what type of physical activity do you participate in: none frequency: does not exercise EXAM Physical Exam Const Vital Signs: 09/06/24 13:33 09/06/24 13:45 09/06/24 13:48 Temperature 99.1 F Temperature Source Oral Pulse Rate 45 L 45 L Respiratory Rate 21 H 24 H Respiratory Effort Normal Short of Breath Respiratory Depth Normal Respiratory Pattern Tachypnea Blood Pressure 136/46 H 147/41 H Blood Pressure Mean 76 76 Pulse Ox 79 91 Oxygen Delivery Method Room Air Nasal Cannula Nasal Cannula Oxygen Flow Rate (L/min) 4 4 09/06/24 14:22 09/06/24 14:22 09/06/24 15:00 Temperature Temperature Source Pulse Rate 87 Respiratory Rate 23 H Respiratory Effort Respiratory Depth Respiratory Pattern Blood Pressure 126/46 H Blood Pressure Mean 72 Pulse Ox 92 92 93 Oxygen Delivery Method Venturi Mask Venturi Mask Nasal Cannula Oxygen Flow Rate (L/min) 12 10 09/06/24 15:44 09/06/24 16:00 09/06/24 17:00 Temperature 99.1 F 99.7 F H Temperature Source Oral Oral Pulse Rate 88 90 92 Respiratory Rate 23 H 22 H 22 H Respiratory Effort Respiratory Depth Respiratory Pattern Blood Pressure 134/92 H 129/71 H 132/79 H Blood Pressure Mean 106 90 96 Pulse Ox 94 94 92 Oxygen Delivery Method High Flow High Flow High Flow Oxygen Flow Rate (L/min) 10 10 10 09/06/24 17:00 09/06/24 18:00 Temperature 99.7 F H Temperature Source Pulse Rate 90 88 Respiratory Rate 26 H 25 H Respiratory Effort Respiratory Depth Respiratory Pattern Blood Pressure 132/79 H 112/52 L Blood Pressure Mean 96 72 Pulse Ox 92 94 Oxygen Delivery Method Oxygen Flow Rate (L/min) Positive well nourished and well developed Constitutional Narrative: Patient appears ill. She is not awake nor she alert. General Appearance ED: well developed, cyanotic and pallor; Negative for diaphoretic or NAD HEENT Reports dry mucous membranes Negative for tenderness Mouth ED: Yes dry mucous membranes Mouth: dry mucous membranes Eyes PERRL General Eye ED: Negative for pale conjunctiva or scleral icterus Neck no lymphadenopathy, supple and no JVD Chest Wall inspection of chest normal and palpation of chest normal Resp No normal respiratory effort and No clear to auscultation bilaterally Resp Narrative: The rales lower quarter on the left with egophony increased vocal fremitus. There is expiratory wheezing noted on the right posteriorly with some scattered rales. There is no egophony or increased vocal fremitus. Cardio regular rhythm, S1 normal heart sound, S2 normal heart sound and no murmurs Rate: other Other Details: Patient is in bigeminy and reason pulse is only 45. GI normal to inspection, nondistended, normoactive bowel sounds, non-tender, non-distended and no masses; Negative for hepatosplenomegaly Back/Spine no CVA tenderness Extremity normal to inspection Extremity Narrative: Extremities look pale. There is no clubbing but there is peripheral cyanosis. General Extremety ED: Yes edema; Negative for tenderness General Extremity: edema Neuro CN's II-XII intact bilaterally and no sensory deficits noted Neuro Narrative: Not oriented to time. This is a change from the 14th. Sensorium / Orientation: Negative for alert Motor Exam: strength 5/5 throughout Psych mental status grossly normal Skin no wounds and skin turgor normal Skin Narrative: Capillary fill is slightly delayed at 2 to 3 seconds. General Skin Exam: pallor; Negative for elasticity normal Sepsis Attestation Sepsis Alert: Yes Sepsis Attestation: Agree w/Sepsis Date exam was performed: 09/06/24 Time exam was performed: 14:13 Possible Source of Sepsis: Pulmonary Sepsis Organ Dysfunction Criteria Present: PaO2/FiO2 ratio < 300 and New/Unexplained change in mental status Fluid Resuscitation Fluid resuscitation indicated?: Yes Amount of fluid ordered: 2,000 MDM MDM MDM Narrative Medical decision making narrative: Patient with respiratory failure. With altered mental status need to determine if this is due to metabolic infectious causes. Need to rule out hypercapnia, electrolyte abnormality, infectious. Presumption is patient has pneumonia based on physical exam and the fact that she is hypoxic with a productive/nonproductive cough. Sepsis order set was initiated. She was treated with Rocephin and azithromycin. Patient is presently on 50% Venturi mask. She was saturating only 85% on 5 L. ABG was ordered to assess acid-base status as well as CO2. History & Record Review Additional record(s) reviewed:: Prior ED visit (Patient was seen on the for left-sided chest pain and ruled out for cardiac etiology. Because of her left-sided chest pain at the time of that visit was unknown.) and Prior labs Lab Data Attestation: I reviewed the patient's lab results. Lab results narrative: White count is 20.3 thousand. There is a shift. Comprehensive metabolic panel was elevated BUN and creatinine are 51 and 1.26. PT is slightly elevated 16.9. BUN to creatinine ratio is 40:1. Glucose is 162. Transaminases are elevated. Labs: Laboratory Results - last 24 hr 09/06/24 09/06/24 09/06/24 13:51 14:20 15:37 WBC 20.3 H RBC 3.96 L Hgb 12.0 Hct 35.1 L MCV 88.6 MCH 30.3 MCHC 34.2 RDW Std Deviation 49.2 H RDW Coeff of Martha 15.0 H Plt Count 428 MPV 10.2 Immature Gran % (Auto) 2.200 H Neut % (Auto) 77.1 H Lymph % (Auto) 4.8 L Braxton % (Auto) 5.3 Eos % (Auto) 10.3 H Baso % (Auto) 0.3 Absolute Neuts (auto) 15.6 H Absolute Lymphs (auto) 0.97 Nucleated RBC % 0.1 Differential Comment Not Reportable PT 16.9 H INR 1.3 APTT 28.6 Sodium 134 Potassium 4.4 Chloride 97 L Carbon Dioxide 21.8 Anion Gap 15 BUN 51 H Creatinine 1.26 H Estim Creat Clear Calc 29.09 L Est GFR (MDRD) Non-Af 42 L BUN/Creatinine Ratio 40.2 H Glucose 162 H Lactic Acid 2.3 H* Calcium 8.8 Total Bilirubin 1.00 AST 202 H ALT 157 H Alkaline Phosphatase 105 H Total Protein 7.0 Albumin 2.9 L Globulin 4.1 Albumin/Globulin Ratio 0.7 L Urine Color Yellow Urine Clarity Sl. Cloudy Urine pH 5.0 Ur Specific Palm 1.015 Urine Protein 30 H Urine Glucose (UA) Normal Urine Ketones Negative Urine Occult Blood 10 H Urine Nitrite Negative Urine Bilirubin Negative Urine Urobilinogen Normal Ur Leukocyte Esterase 500 H Urine RBC 0-5 SEEN Urine WBC 10-25 SEEN Ur Squamous Epith Cells 0 SEEN Urine Bacteria 3+ Hyaline Casts 0-5 SEEN Urine Mucus 0 SEEN ABG Data Attestation: I personally reviewed and interpreted this ABG as follows: Interpretation: Blood gas reveals alkalosis. Bicarb is 21.7, CO2 23, base excess -2. Saturation of 89% which correlates with pulse ox and pCO2 was 28.0. pO2 is 50. This is on 50% Venturi mask. She is now on high flow oxygen. ABG results: ABG 09/06/24 14:24 Specimen Type ART Sample Site L Radial pH 7.50 H Bicarbonate Actual 21.7 L Total CO2 23 Base Excess -2 O2 Saturation 89 L O2 % 50.0 ABG pCO2 28.0 L ABG pO2 50 L Jonah Test Positive O2 Delivery Device Venti Mask Vent Mode Not entered Radiography Chest X-Ray - ED: 2 View and Read by ED Physician (Bilateral lower. Cardiac silhouette is obscured. There is no) Diagnostic Testing: Clinical Impression(s) from Imaging Studies Chest X-Ray 09/06/24 15:00 IMPRESSION: Cardiomegaly with pulmonary congestion and edema. Superimposed pneumonia cannot be excluded. Reading Location: [facility] EKG Initial EKG: Attestation: I personally reviewed and interpreted this EKG as follows: Interpretation: Sinus Rhythm (Rate is 90. There is bigeminy. OR interval is 132 ms. History is 84 ms. QT duration. 62 ms. Lohn is normal.) Management Discussion w/another healthcare provider: Hospitalist (Dr. Sun Keller was paged for admission for bilateral pneumonia, sepsis, respiratory failure, encephalopathy) Treatment and Re-Evaluation :: Initial bolus was ordered. Additional bolus was ordered because patient is dehydrated with acute prerenal azotemia with a BUN to creatinine ratio 40:1. Procedures Other Procedures Procedure(s): Placement of indwelling [place]. Nurse was unable to. Due to anatomy this was facilitated by using a speculum to open the introitus region. The urethra was visualized. Pickens was placed without difficulty. There was dark clear yellow urine that drained. Will send for appropriate studies. Critical Care Time Critical Care Time: Yes Critical care time (excluding procedures): 30-74 minutes (36), Including time spent: (History, physical, documentation, discussion with and daughter, independent interpretation of laboratory results, initiation of therapy for sepsis due to community-acquired pneumonia), Discussing w/Patient &/or Family/Biological Chemist ( question why she has pneumonia now if the chest x-ray did not show pneumonia on her prior visit. He was informed that most likely since she just became ill that she just developed pneumonia or she may have had pneumonia that was not detectable by x-ray and sometimes it is not apparent for 5), Discussing w/Consultants (Hospitalist was contacted for admission) and Arranging Admission or Transfer (Facility admission to the ICU) Discharge Plan Dx/Rx/DC Orders Clinical Impression: Bilateral pneumonia, Acute hypoxic respiratory failure, Acute encephalopathy, Acute prerenal azotemia, Elevated serum creatinine, Acidosis, lactic, Sepsis, Ventricular bigeminy Disposition Disposition: Acute Care Hospital [facility] Discharge Date/Time: 09/06/24 18:56
[2024-09-06 14:20] LABS: Absolute Lymphocyte Count 0.97 X10^3/uL (0.83-4.51); Absolute Neutrophil Count 15.6 X10^3/uL (2.0-7.7); Basophil# 0.07 X10^3/uL; Basophil% 0.3 % (0-1); Eosinophil# 2.08 X10^3/uL; Eosinophils% 10.3 % (0-5); Hematocrit 35.1 % (37-47); Lymphocyte # 0.97 X10^3/ul (0.83-4.51); Lymphocyte % 4.8 % (19-41); Mean Corp Hgb Conc 34.2 g/dL (32-36); Mean Corpuscular Hgb 30.3 pg (27.0-32.0); Mean Corpuscular Volume 88.6 fL (81-99); Mean Platelet Vol. 10.2 fl (6.2-12.0); Monocyte# 1.08 X10^3/uL; Monocyte% 5.3 % (0-10); NRBC Flagged by Analyzer 0.1 % (0-5); Neutrophil # 15.62 X10^3/uL (2.7-7.7); Neutrophil % 77.1 % (47-70); POSITIVE DIFFERENTIAL YES; Platelet Count 428 K/mm3 (150-450); RBC Distribution Width SD 49.2 fl (35.1-43.9); Red Blood Count 3.96 M/mm3 (4.2-5.4); White Blood Count 20.3 K/mm3 (4.4-11.0)
[2024-09-06 14:26] LABS: Differential Indicated SCAN CRITERIA MET
[2024-09-06 14:28] LABS: Allen Test Positive; Base Excess -2 mmol/L (-2 to +2); Bicarbonate 21.7 mmol/L (22-26); Blood Gas Specimen Type ART; Mode Not entered; O2 Delivery Device Venti Mask; PO2 50 mmHG (75-100); SITE L Radial; SO2 89 % (95-99); Total Carbon Dioxide 23 mmol/L
[2024-09-06 14:55] LABS: International Normalized Ratio 1.3; Prothrombin Time (Protime)PT. 16.9 SECONDS (11.7-14.9)
[2024-09-06 14:56] LABS: Partial Thromboplast Time 28.6 Seconds (24.1-36.2)
--- NOTE | 2024-09-06 15:00 | RAD_ITS ---
EXAM: XR Chest, 1 View CLINICAL INDICATION: RESPIRATORY FAILURE, RALES LEFT LOWER LOBE WITH EG TECHNIQUE: Frontal view of the chest. COMPARISON: No relevant prior studies available. FINDINGS: LUNGS AND PLEURAL SPACES: See below. HEART: Cardiomegaly with pulmonary congestion and edema. Superimposed pneumonia cannot be excluded. MEDIASTINUM: Unremarkable. Normal mediastinal contour. BONES/JOINTS: Unremarkable. No acute fracture. RAD/Chest 1 View (Portable) IMPRESSION: Cardiomegaly with pulmonary congestion and edema. Superimposed pneumonia cannot be excluded. Reading [facility]
[2024-09-06 15:26] LABS: ALB/GLOB Ratio 0.7 RATIO (0.9-2.4); AST(SGOT) 202 U/L (<=31); Alanine Aminotransfer ALT/SGPT 157 U/L (<=34); Albumin, Serum 2.9 g/dL (3.4-4.8); Alkaline Phosphatase 105 U/L (35-104); Anion Gap 15 (5-15); BUN 51 mg/dL (4-19); BUN/Creat Ratio 40.2 RATIO (10-20); Calcium,Total 8.8 mg/dL (7.6-11.0); Carbon Dioxide 21.8 mmol/L (21.0-32.0); Chloride 97 mmol/L (98-108); Creatinine, Serum 1.26 mg/dL (0.70-1.20); EST Glomerular Filtration Rate 42 (>60); Estimated Creatinine Clearance 29.09 ml/min (50-250); Globulin 4.1 g/dL (2.2-4.2); Glucose 162 mg/dL (70-99); Potassium 4.4 mmol/L (3.3-5.1); Sodium Level 134 mmol/L (133-145)
[2024-09-06 15:34] LABS: Lactic Acid 2.3 mmol/L (0.0-2.0)
[2024-09-06] MEDS: 0.9% Normal Saline (500mL Bag) 500 ML 999 ML IV (15:35)
[2024-09-06] MEDS: Ceftriaxone 2 GM in 0.9% Normal Saline (50mL MB+) 50 ML IV (15:39)
[2024-09-06 15:41] LABS: Mucous, Urine 0 SEEN /hpf (<or=2+); Squamous Epithelial Cells - UA 0 SEEN /hpf (5-10)
[2024-09-06 15:49] LABS: Color, Urine Yellow (Yellow); Glucose, Dipstick Normal (Normal); Ketone-Dipstick Negative (Negative); Leukocyte Esterase-Dipstick 500 /ul (Negative); Nitrite-Dipstick Negative (Negative); Occult Blood-Urine 10 /ul (Negative); Protein-Dipstick 30 mg/dl (Negative); Specific Gravity, Urine 1.015 (1.002-1.030); Urine Bilirubin Dipstick Negative (Negative); Urine Clarity Sl. Cloudy (Clear); Urine Urobilinogen Normal (Normal)
[2024-09-06 16:11] LABS: Hyaline Cast 0-5 SEEN /lpf (0-5); White Blood Cells 10-25 SEEN /hpf (0-5)
[2024-09-06 16:12] LABS: Bacteria 3+ /hpf (None Seen); Red Blood Cells-Urine 0-5 SEEN /hpf (0-5)
[2024-09-06] MEDS: Azithromycin 500 MG in 0.9% Normal Saline (250mL Bag) 250 ML 255 MG IV (16:17)
[2024-09-06] MEDS: 0.9% Normal Saline (1000mL) 1,000 ML 1000 ML IV ×2 (16:18→18:15)
--- NOTE | 2024-09-06 18:29 | HP.PCM.HOS_ITS ---
HPI - General General Date of Admission: 09/06/24 Date of Service: 09/06/24 Chief Complaint: Weak, cold, short of breath HPI Narrative PRECIOUS LEIGH, is a 88-year-old female history of coronary artery disease with previous placement of 6 stents, status post TAVR, autoimmune hemolytic anemia, ABDIAS, hypertension, hypothyroidism who presented to [facility] ED 09/06/2024 due to feeling unwell for several days, poor p.o. intake especially food, does have cough with some chills, additionally reported shortness of breath. Patient was found to be 79% on room air in the ED and was placed on nasal cannula and was only saturating 95%, she was then placed on Venturi mask. Patient initial temp 99.1 with heart rate of 45, blood pressure 136/46 and respiratory rate of 21. ABG demonstrated pH of 7.5 with bicarb of 21 and an O2 saturation of 89% on 50% Ventimask, with blood cell count of 20.3, lactic 2.3, and chest x-ray concerning for bilateral pneumonia. Patient given antibiotics and sepsis fluids and hospitalist contacted for admission. Patient evaluated at bedside with family members present, patient has had poor p.o. intake for a little over a week and has been feeling very cold and weak, today she developed shortness of breath and has been coughing though it is minimally productive. Feeling unwell and achy overall [facility] Medical History Sarcoidosis COVID-19 Hemolytic anemia Anemia Non-ST elevation (NSTEMI) myocardial infarction Elevated troponin Hypertension Wears glasses Wears dentures Thyroid disease High cholesterol Non-smoker BiPAP (biphasic positive airway pressure) dependence On home oxygen therapy Shortness of breath on exertion Loss of appetite Chronic cough History of echocardiogram History of stress test Cardiology follow-up encounter Chronic hypoxemic respiratory failure Mediastinal lymphadenopathy Acute febrile illness Essential hypertension Angina pectoris Chest pain ABDIAS (obstructive sleep apnea) Anginal equivalent Nonrheumatic mitral (valve) insufficiency Nonrheumatic aortic (valve) insufficiency Nonrheumatic aortic (valve) stenosis Carotid artery disease Atherosclerotic heart disease of [place] coronary artery without angina pectoris CAD (coronary artery disease) Valvular heart disease Hypothyroidism Aortic insufficiency Hyperlipidemia Home Medications ?Medication ?Instructions ?Recorded ?Last Taken ?Type multivitamin 1 tab PO DAILY vitamin 02/2209/06/24 History aspirin 81 mg tablet,delayed 81 mg PO DAILY@0800 [facility] 02/27/21 09/06/24 Rx release #0 tabs nitroglycerin 0.4 mg sublingual 0.4 mg sublingual Q5-1 5M PRN chest 03/01/21 Unknown Rx tablet pain 10 days #25 tabs magnesium 250 mg tablet 250 mg PO DAILY Check with p rimary 05/30/21 09/06/24 History doctor vitamin E (dl, acetate) 180 mg 180 mg PO DAILY Check w ith primary 05/30/21 09/06/24 History (400 unit) capsule doctor ascorbic acid (vitamin C) 500 mg 1,000 mg PO BID suppl ement 08/29/21 09/06/24 History capsule coenzyme Q10 100 mg capsule 200 mg PO DAILY coenzyme 0 08/29/21 09/06/24 History furosemide 40 mg tablet See Rx Instructions .Route 0 12/30/22 Unknown History .COMPLEX PRN swelling metoprolol succinate 25 mg 25 mg PO BID #180 tabs 10/1509/06/24 Rx tablet,extended release 24 hr losartan 50 mg tablet 50 mg PO DAILY Check with pr imary 01/12/24 09/06/24 History doctor atorvastatin 40 mg tablet 40 mg PO DAILY #90 tabs 01/1409/05/24 Rx isosorbide mononitrate 30 mg 30 mg PO BID #180 tabs 09/06/24 Rx tablet,extended release 24 hr folic acid 400 mcg tablet 0.4 mg PO QDAY 05/12/2408/15 History selenium 200 mcg capsule 200 mcg PO QDAY 05/12/24 History clopidogrel 75 mg tablet See Rx Instructions .Route 1 07/18/23 09/06/24 Rx .COMPLEX #90 TABLETS amlodipine 10 mg tablet 10 mg PO DAILY 09/06/2408/15 History levothyroxine 88 mcg tablet 88 mcg PO DAILY 09/06/24 0 09/06/24 History Allergy/AdvReac Type Severity Reaction Status Date / Time Iodinated Contrast Media Allergy Intermediate Rash Verified 09/06/24 13:45 (Iodinated Contrast- Oral and IV Dye) ramipril (From Altace) AdvReac Severe cough Verified 09/06/24 13:45 ticagrelor (From Brilinta) AdvReac Dyspnea Verified 09/06/24 13:45 Family History Mother , Age 63 Myocardial infarction Father , Age 28 Colon cancer Other Heart disease Surgical History H/O cataract removal with insertion of prosthetic lens S/P TAVR (transcatheter aortic valve replacement) Hx of colonoscopy History of cardiac catheterization History of axillary surgery History of percutaneous transluminal coronary angioplasty (04/16/19) Presence of stent in coronary artery (04/09/21) History of cholecystectomy Social History Smoking Status: Never smoker second hand exposure: No alcohol intake: never substance use type: does not use caffeine: Yes Type: coffee Number of servings: 1 what type of physical activity do you participate in: none frequency: does not exercise ROS ROS Narrative General: has been feeling very cold but has not measured a temperature HENT: Denies headache EYES: Denies changes in vision Resp: Minimally productive cough, increased shortness of breath Cardiac: Denies chest pain GI: Denies abdominal pain, denies changes in bowel, very poor p.o. intake : Some decreased urination Extremity: Denies swelling MSK: Generally weak Neuro: Denies any numbness/tingling Heme: Denies any bleeding or bruising Skin: Denies rashes Psychiatric: Feels generally unwell Vital Signs Vital Signs Vital Signs: 09/06/24 13:33 09/06/24 13:45 09/06/24 13:48 Temperature 99.1 F Temperature Source Oral Pulse Rate 45 L 45 L Respiratory Rate 21 H 24 H Respiratory Effort Normal Short of Breath Respiratory Depth Normal Respiratory Pattern Tachypnea Blood Pressure 136/46 H 147/41 H Blood Pressure Mean 76 76 Pulse Ox 79 91 Oxygen Delivery Method Room Air Nasal Cannula Nasal Cannula Oxygen Flow Rate (L/min) 4 4 09/06/24 14:22 09/06/24 14:22 09/06/24 15:00 Temperature Temperature Source Pulse Rate 87 Respiratory Rate 23 H Respiratory Effort Respiratory Depth Respiratory Pattern Blood Pressure 126/46 H Blood Pressure Mean 72 Pulse Ox 92 92 93 Oxygen Delivery Method Venturi Mask Venturi Mask Nasal Cannula Oxygen Flow Rate (L/min) 12 10 09/06/24 15:44 09/06/24 16:00 09/06/24 17:00 Temperature 99.1 F 99.7 F H Temperature Source Oral Oral Pulse Rate 88 90 92 Respiratory Rate 23 H 22 H 22 H Respiratory Effort Respiratory Depth Respiratory Pattern Blood Pressure 134/92 H 129/71 H 132/79 H Blood Pressure Mean 106 90 96 Pulse Ox 94 94 92 Oxygen Delivery Method High Flow High Flow High Flow Oxygen Flow Rate (L/min) 10 10 10 09/06/24 17:00 09/06/24 18:00 Temperature 99.7 F H Temperature Source Pulse Rate 90 88 Respiratory Rate 26 H 25 H Respiratory Effort Respiratory Depth Respiratory Pattern Blood Pressure 132/79 H 112/52 L Blood Pressure Mean 96 72 Pulse Ox 92 94 Oxygen Delivery Method Oxygen Flow Rate (L/min) Weight Weight: 68.6 kg Body Mass Index (BMI) 27.6 Physical Exam Narrative General: Alert, overall answering questions appropriately though family there for supplemental history HEENT: Atraumatic, normocephalic, does have dry oral mucosa Eyes: Anicteric, normal conjunctiva, extraocular movements grossly intact Neck: Supple Respiratory: Crackles and coarse at the bases, increased respiratory effort Cardiovascular: Regular rate GI: Soft, nontender, nondistended Extremities: No edema Musculoskeletal: Moving all extremities Neuro: No overt focal neurological deficits Skin: No rashes appreciated Psych: Cooperative Results Lab / Micro Data 09/06/24 13:51 09/06/24 13:51 Labs: Laboratory Results - last 24 hr 09/06/24 13:51: WBC 20.3 H, RBC 3.96 L, Hgb 12.0, Hct 35.1 L, MCV 88.6, MCH 30.3, MCHC 34.2, RDW Std Deviation 49.2 H, RDW Coeff of Martha 15.0 H, Plt Count 428, MPV 10.2, Immature Gran % (Auto) 2.200 H, Neut % (Auto) 77.1 H, Lymph % (Auto) 4.8 L, [place] % (Auto) 5.3, Eos % (Auto) 10.3 H, Baso % (Auto) 0.3, A bsolute Neuts (auto) 15.6 H, Absolute Lymphs (auto) 0.97, Nucleated RBC % 0.1, Differential Comment Not Reportable, PT 16.9 H, INR 1.3, APTT 28.6, Sodium 134, Potassium 4.4, Chloride 97 L, Carbon Dioxide 21.8, Anion Gap 15, BUN 51 H, C reatinine 1.26 H, Estim Creat Clear Calc 29.09 L, Est GFR (MDRD) Non-Af 42 L, B UN/Creatinine Ratio 40.2 H, Glucose 162 H, Calcium 8.8, Total Bilirubin 1.00, A ST 202 H, ALT 157 H, Alkaline Phosphatase 105 H, Total Protein 7.0, Albumin 2.9 L, Globulin 4.1, Albumin/Globulin Ratio 0.7 L 09/06/24 14:20: Lactic Acid 2.3 H* 09/06/24 15:37: Urine Color Yellow, Urine Clarity Sl. Cloudy, Urine pH 5.0, Ur Specific [place] 1.015, Urine Protein 30 H, Urine Glucose (UA) Normal, Urine Ketones Negative, Urine Occult Blood 10 H, Urine Nitrite Negative, Urine Bilirubin Negative, Urine Urobilinogen Normal, Ur Leukocyte Esterase 500 H, Urine RBC 0-5 SEEN, Urine WBC 10-25 SEEN, Ur Squamous Epith Cells 0 SEEN, Urine Bacteria 3+, Hyaline Casts 0-5 SEEN, Urine Mucus 0 SEEN Micro: Microbiology 09/06/24 14:33 Mucosa - Nose SARS-CoV-2, Influenza & RSV (PCR) - Final ABG Data ABG results: ABG 09/06/24 14:24 Specimen Type ART Sample Site L Radial pH 7.50 H Bicarbonate Actual 21.7 L Total CO2 23 Base Excess -2 O2 Saturation 89 L O2 % 50.0 ABG pCO2 28.0 L ABG pO2 50 L Jonah Test Positive O2 Delivery Device Venti Mask Vent Mode Not entered Imaging Radiology Impression Chest X-Ray 09/06/24 15:00 IMPRESSION: Cardiomegaly with pulmonary congestion and edema. Superimposed pneumonia cannot be excluded. Reading Location: REPLACED BY [facility] Assessment & Plan Assessment/Plan (1) Pneumonia: PLAN: Plan # Sepsis suspect secondary to pneumonia -Patient with new hypoxia with O2 sat of only 89% on ABG on Venturi mask at 50% -Patient additionally with metabolic encephalopathy, mental status seems to be improving by the time of my exam -Additionally respiratory rate in the 20s and white blood cell count 20.3, lactic 2.3 -Patient given IV fluids -Chest x-ray concerning for bilateral pneumonia however UA also concern for possible UTI -Diaz cultures -DuoNebs and as needed albuterol -Sputum culture, COVID and respiratory panels ordered -Urine antigens -Mucinex, I/S -Rocephin and azithromycin #acute hypoxic respiratory failure -Suspect secondary to pneumonia and sepsis, treatment as above # Elevated liver function tests -AST, ALT, alk phos elevated from a week ago, may be due to underlying infection/sepsis -Hold any hepatotoxic agents and repeat in a.m. # CKD stage III b -Appears to be at baseline -Avoid nephrotoxic agents -Daily BMPs # History of coronary artery disease/history of TAVR -With previous history of stenting x 6 -Continue aspirin and Plavix -Decreasing beta-skylar due to bradycardia -Continue statin, if LFTs uptrend may need to hold statin #Hypothyroidism -Continue Synthroid #Hypertension -Continuing Imdur, decreasing metoprolol due to heart rate of 45 on arrival, will hold amlodipine and losartan at this time but can add back as blood pressure tolerates #DVT ppx: Lovenox subcu Emmy Keller MD Charges/Coding Visit Charges Inpatient E&M: 10190 Init Hosp L2
--- NOTE | 2024-09-06 18:46 | ED.RN ---
Report called to Francois RN in ICU
[2024-09-06] MEDS: 0.9% Normal Saline (1000mL) 1,000 ML 100 ML IV (20:19)
[2024-09-06] MEDS: Metoprolol(XL)Succ 25 MG Tablet 12.5 MG PO (21:03)
[2024-09-06] MEDS: Albuterol 2.5 MG/3 ML VIAL.NEB. INHALATION (23:40)
[2024-09-07] VITALS (25 sets, daily range): BP systolic 113–165; BP diastolic 44–64; PULSE 48–115; RESP 12–40; TEMP 36.6–37.2; O2SAT 90–548; BMI 28.1
[2024-09-07 00:10] LABS: Allen Test Positive; Base Excess -6 mmol/L (-2 to +2); Bicarbonate 18.9 mmol/L (22-26); Blood Gas Specimen Type ART; Mode Not entered; O2 Delivery Device BiPAP; PEEP 10; PIP 16; PO2 64 mmHG (75-100); RR 12; SITE L Radial; SO2 93 % (95-99); Total Carbon Dioxide 20 mmol/L; pCO2 30.8 mmHg (35-45)
[2024-09-07 03:11] LABS: Allen Test Positive; Base Excess -2 mmol/L (-2 to +2); Bicarbonate 21.6 mmol/L (22-26); Blood Gas Specimen Type ART; Mode Not entered; O2 Delivery Device BiPAP; PEEP 10; PIP 16; PO2 71 mmHG (75-100); RR 15; SITE L Radial; SO2 95 % (95-99); Total Carbon Dioxide 23 mmol/L; pCO2 29.8 mmHg (35-45); pH 7.47 (7.35-7.45)
[2024-09-07 04:38] LABS: Absolute Lymphocyte Count 0.67 X10^3/uL (0.83-4.51); Absolute Neutrophil Count 17.6 X10^3/uL (2.0-7.7); Basophil% 0.5 % (0-1); Eosinophil# 0.79 X10^3/uL; Eosinophils% 3.9 % (0-5); Hematocrit 30.9 % (37-47); Hemoglobin 10.5 g/dL (12.0-15.0); Lymphocyte # 0.67 X10^3/ul (0.83-4.51); Lymphocyte % 3.3 % (19-41); Mean Corpuscular Hgb 30.2 pg (27.0-32.0); Mean Corpuscular Volume 88.8 fL (81-99); Monocyte# 0.78 X10^3/uL; Monocyte% 3.8 % (0-10); NRBC Flagged by Analyzer 0.3 % (0-5); Neutrophil # 17.55 X10^3/uL (2.7-7.7); Neutrophil % 86.3 % (47-70); Platelet Count 370 K/mm3 (150-450); RBC Distribution Width CV 15.1 % (11.6-14.6); RBC Distribution Width SD 48.6 fl (35.1-43.9); Red Blood Count 3.48 M/mm3 (4.2-5.4); White Blood Count 20.3 K/mm3 (4.4-11.0)
[2024-09-07] MEDS: Enoxaparin 30 MG/0.3 ML Syringe SC (05:17)
[2024-09-07] MEDS: Levothyroxine 88 MCG Tablet PO (05:18)
[2024-09-07 05:19] LABS: ALB/GLOB Ratio 0.5 RATIO (0.9-2.4); AST(SGOT) 127 U/L (<=31); Alanine Aminotransfer ALT/SGPT 119 U/L (<=34); Albumin, Serum 2.2 g/dL (3.4-4.8); Alkaline Phosphatase 93 U/L (35-104); Anion Gap 12 (5-15); BUN 34 mg/dL (4-19); BUN/Creat Ratio 34.9 RATIO (10-20); Calcium,Total 8.1 mg/dL (7.6-11.0); Carbon Dioxide 19.2 mmol/L (21.0-32.0); Chloride 106 mmol/L (98-108); Creatinine, Serum 0.97 mg/dL (0.70-1.20); EST Glomerular Filtration Rate 57 (>60); Estimated Creatinine Clearance 38.13 ml/min (50-250); Globulin 4.5 g/dL (2.2-4.2); Glucose 172 mg/dL (70-99); Potassium 4.5 mmol/L (3.3-5.1); Protein, Total 6.8 g/dL (5.9-8.4); Sodium Level 137 mmol/L (133-145); Total Bilirubin 0.71 mg/dL (0.00-1.30)
[2024-09-07] MEDS: Ipratropium/Albuterol Sulfate 3 ML AMPUL.NEB INHALATION ×3 (07:09→18:55)
[2024-09-07] MEDS: Metoprolol(XL)Succ 25 MG Tablet 12.5 MG PO ×2 (07:47→21:48)
[2024-09-07] MEDS: Atorvastatin Calcium 40 MG Tablet PO (07:47)
[2024-09-07] MEDS: Magnesium Chloride 64 MG Delay Rel.Tablet 128 MG PO (07:47)
[2024-09-07] MEDS: Aspirin 81 MG TAB.CHEW PO (07:47)
[2024-09-07] MEDS: guaiFENesin 1,200 MG Tablet 1200 MG PO ×2 (07:48→21:48)
--- NOTE | 2024-09-07 08:55 | PN.HOSP_ITS ---
Subjective Subjective Doing well, no issues. Says that she is breathing a little bit better and nursing was able to wean her down to 8 L nasal cannula Objective Data Objective Data Vital Signs: Vital Signs Temp Pulse Resp BP Pulse Ox O2 Del Method O2 Flow Rate 98.3 F 90 22 H 124/55 H 548 Nasal Cannula 8 09/07/24 08:00 09/07/24 08:00 09/07/24 08:00 09/07/24 08:00 09/07/24 08:00 09/07/24 08:29 09/07/24 08:29 FiO2 50 09/07/24 02:55 Oxygen Flow Rate (L/min) 8 Oxygen Delivery Method Nasal Cannula Weight: 154 lb 1.65 oz Body Mass Index (BMI) 28.1 Intake & Output: Intake and Output for Last 24 Hours 09/06/24 09/07/24 09/08/24 03:59 03:59 03:59 Intake Total 2805 / 2805 923.33 / 923.33 Output Total 550 / 550 300 / 300 Balance 2255 / 2255 623.33 / 623.33 Lab / Micro Data 09/07/24 04:32 09/07/24 04:32 Labs: Laboratory Results - last 24 hr 09/06/24 13:51: WBC 20.3 H, RBC 3.96 L, Hgb 12.0, Hct 35.1 L, MCV 88.6, MCH 30.3, MCHC 34.2, RDW Std Deviation 49.2 H, RDW Coeff of Martha 15.0 H, Plt Count 428, MPV 10.2, Immature Gran % (Auto) 2.200 H, Neut % (Auto) 77.1 H, Lymph % (Auto) 4.8 L, [place] % (Auto) 5.3, Eos % (Auto) 10.3 H, Baso % (Auto) 0.3, A bsolute Neuts (auto) 15.6 H, Absolute Lymphs (auto) 0.97, Nucleated RBC % 0.1, Differential Comment Not Reportable, PT 16.9 H, INR 1.3, APTT 28.6, Sodium 134, Potassium 4.4, Chloride 97 L, Carbon Dioxide 21.8, Anion Gap 15, BUN 51 H, C reatinine 1.26 H, Estim Creat Clear Calc 29.09 L, Est GFR (MDRD) Non-Af 42 L, B UN/Creatinine Ratio 40.2 H, Glucose 162 H, Calcium 8.8, Total Bilirubin 1.00, A ST 202 H, ALT 157 H, Alkaline Phosphatase 105 H, Total Protein 7.0, Albumin 2.9 L, Globulin 4.1, Albumin/Globulin Ratio 0.7 L 09/06/24 14:20: Lactic Acid 2.3 H* 09/06/24 15:37: Urine Color Yellow, Urine Clarity Sl. Cloudy, Urine pH 5.0, Ur Specific [place] 1.015, Urine Protein 30 H, Urine Glucose (UA) Normal, Urine Ketones Negative, Urine Occult Blood 10 H, Urine Nitrite Negative, Urine Bilirubin Negative, Urine Urobilinogen Normal, Ur Leukocyte Esterase 500 H, Urine RBC 0-5 SEEN, Urine WBC 10-25 SEEN, Ur Squamous Epith Cells 0 SEEN, Urine Bacteria 3+, Hyaline Casts 0-5 SEEN, Urine Mucus 0 SEEN 09/07/24 04:32: WBC 20.3 H, RBC 3.48 L, Hgb 10.5 L, Hct 30.9 L, MCV 88.8, MCH 30.2, MCHC 34.0, RDW Std Deviation 48.6 H, RDW Coeff of Martha 15.1 H, Plt Count 370, MPV 10.0, Immature Gran % (Auto) 2.200 H, Neut % (Auto) 86.3 H, Lymph % (Auto) 3.3 L, [place] % (Auto) 3.8, Eos % (Auto) 3.9, Baso % (Auto) 0.5, Absolute Neuts (auto) 17.6 H, Absolute Lymphs (auto) 0.67 L, Nucleated RBC % 0.3, Sodium 137, Potassium 4.5, Chloride 106, Carbon Dioxide 19.2 L, Anion Gap 12, BUN 34 H, Creatinine 0.97, Estim Creat Clear Calc 38.13 L, Est GFR (MDRD) Non-Af 57 L, B UN/Creatinine Ratio 34.9 H, Glucose 172 H, Calcium 8.1, Total Bilirubin 0.71, A ST 127 H, ALT 119 H, Alkaline Phosphatase 93, Total Protein 6.8, Albumin 2.2 L, Globulin 4.5 H, Albumin/Globulin Ratio 0.5 L Micro: Microbiology 09/06/24 23:50 Mucosa - Nasopharyngeal Respiratory Panel (PCR) - Final 09/06/24 20:40 Urine Catheter - [place] Streptococcus pneumoniae Antigen (M - Final 09/06/24 20:40 Urine Catheter - [place] Legionella Antigen - Final 09/06/24 14:33 Mucosa - Nose SARS-CoV-2, Influenza & RSV (PCR) - Final ABG Data ABG results: ABG 09/06/24 09/07/24 09/07/24 14:24 00:07 03:07 Specimen Type ART ART ART Sample Site L Radial L Radial L Radial pH 7.50 H 7.40 7.47 H Bicarbonate Actual 21.7 L 18.9 L 21.6 L Total CO2 23 20 23 Base Excess -2 -6 L -2 O2 Saturation 89 L 93 L 95 O2 % 50.0 70.0 50.0 ABG pCO2 28.0 L 30.8 L 29.8 L ABG pO2 50 L 64 L 71 L Jonah Test Positive Positive Positive Respiration Rate 12 15 O2 Delivery Device Venti Mask BiPAP BiPAP Vent Mode Not entered Not entered Not entered POC PEEP 10 10 Peak Inspir Pressure 16 16 Radiography Diagnostic Testing: Radiology Impression Chest X-Ray 09/06/24 15:00 IMPRESSION: Cardiomegaly with pulmonary congestion and edema. Superimposed pneumonia cannot be excluded. Reading Location: PENDING SALE TO [facility] Physical Exam Narrative General: Alert, Oriented x3, Cooperative, No apparent distress HEENT: Atraumatic, PERRLA, EOMI, Normocephalic Oral: Moist Mucosa Neck: Supple, No JVD Lungs: Diminished, Normal air movement, scattered rhonchi, No wheeze, No rales Cardiovascular: Regular rate, Regular Rhythm, Normal S1, Normal S2, No murmurs Abdomen: Soft, Non Tender, Non-Distended, No Hepato-splenomegaly Extremities: No edema, Capillary Refill Less than 3 Seconds Skin: No rashes, No breakdown Musculoskeletal: No Tenderness to Palpation of Joints or Extremities Neurological: No focal neurological deficits, Motor Exam 5/5 strength throughout, Sensory exam intact to light touch and pain Psych/Mental Status: Normal Affect, Appropriate Assessment & Plan Assessment/Plan (1) Pneumonia: PLAN: Plan 1. Sepsis with acute hypoxic respiratory failure secondary to community- acquired pneumonia ? Wean oxygen as able ? Continue with Rocephin and azithromycin ? Unlikely to have CHF given an echo at the end of July with an EF of 70% therefore with gentle IV fluids ? Cultures are pending, respiratory panel and Legionella and strep antigens are negative. COVID panel was also negative ? Respiratory status is improving though she is still requiring higher levels of oxygen 2. Essential HTN/HLD/CAD status post stenting/history of TAVR ? Continue with her home blood pressure medications ? Her metoprolol dosing has been lowered because of bradycardia on admission ? Will monitor and make adjustments as necessary ? Continue with aspirin and Plavix 3. Hypothyroidism ? Stable ? Continue with Synthroid DVT: Lovenox Charges/Coding Visit Charges Inpatient E&M: 77138 Subs Hosp L2
[2024-09-07] MEDS: Azithromycin 500 MG in 0.9% Normal Saline (250mL Bag) 250 ML 255 MG IV (09:13)
[2024-09-07] MEDS: Clopidogrel Bisulfate 75 MG Tablet PO (09:13)
--- NOTE | 2024-09-07 09:35 | CASEMGMT ---
BOSTON HODGE Assessment Face to Face with patient for initial transition planning/care coordination assessment. BOSTON HODGE introduced self and role at [facility], pt voices understanding. Pt is A&Ox4 and is resting comfortably in the chair and is calm. Care providers, pharmacy, and demographics verified. Admitting dx: Sepsis, PNA LACE Strata: 3 PCP: Alicia Mata Specialists: Rufina ([facility]) Preferred Pharmacy: [facility] Insurance: MCR A/B, [employer] Prescription Benefit: Yes LNOK: Kedar (H), Li Harper (Ronen) Living Arrangements: Pt lives with her in a single story home with a basement with a FFSU and 1 step to enter ADLs/IADLs: Pt states that she is independent Transportation: Pt states that she does not drive but that her drives her. Denies concerns DME: Pt reports that she uses a cane at times but also has access to a FWW and W/C. Pt is currently requiring additional oxygen and may qualify for home oxygen use. A verbal list of local in-network DME companies were provided to the pt at this time. Pt prefers [facility] HHC/SNF: Denies history or needs. Pt states that she has been to [facility] in the past for OP PT but denies the current need. Pt?s goal: Home Plan: Home with pt , follow for oxygen needs. Pt denies the need for HHC or OP Tx at this time and states that she feels safe returning home with her at the time of DC. However, PT is ordered and pending. 6-Click score is 18. Pt denies further questions or concerns at this time. CM to follow. Mary Gibbs RN, CM
[2024-09-07] MEDS: Ceftriaxone 2 GM in 0.9% Normal Saline (50mL MB+) 50 ML IV (10:26)
--- NOTE | 2024-09-07 14:31 | CHAPLAIN ---
Type of Pastoral Visit _x__ Initial Visit ___ Follow-up Visit ___ On-call Visit ___ General Patient Visit ___ Spiritual Assessment ___ Family Conference ___ Bereavement ___ Rapid Response ___ Code Blue ___ Other (describe below) Pastoral Care Referral From _x__ Patient ___ Family ___ Nurse ___ Physician ___ Dairy Feed Mixing Operator ___ Level Designer ___ Other (describe below) Sacrament/Intervention _x__ Active listening ___ Anointing ___ Scientologist ___ Bereavement ___ Communion ___ Addie exploration ___ ___ Life review _x__ Prayer ___ Reconciliation ___ Sacrament of Sick _x__ Supportive presence ___ Wedding ___ Other (describe below) Pastoral Comments patient reports on her condition and getting older now; pt has family support but told them to go home so she could rest; pt welcomes presence and prayers for support
[2024-09-07] MEDS: Albuterol 2.5 MG/3 ML VIAL.NEB. INHALATION (16:55)
--- NOTE | 2024-09-07 20:11 | CPS ---
pt placed on airvo for sats in the 80's- pt did not tolerate bipap -very comfortable on airvo-nurse aware
[2024-09-08] VITALS (22 sets, daily range): BP systolic 141–170; BP diastolic 56–76; PULSE 83–115; RESP 12–30; TEMP 36.6–39.3; O2SAT 90–98; BMI 28.3
--- NOTE | 2024-09-08 00:30 | CPS ---
changed to 45l and 60% nurse aware
[2024-09-08] MEDS: Acetaminophen 325 MG Tablet 650 MG PO ×2 (01:18→21:42)
[2024-09-08] MEDS: Ipratropium/Albuterol Sulfate 3 ML AMPUL.NEB INHALATION ×3 (01:20→19:52)
[2024-09-08] MEDS: Enoxaparin 40 MG/0.4 ML Syringe SC (07:02)
[2024-09-08 07:07] LABS: Base Excess -1 mmol/L (-2 to +2); Bicarbonate 23.1 mmol/L (22-26); Blood Gas Specimen Type ART; Comment 16 10; Mode Not entered; PO2 72 mmHG (75-100); SITE R Brach; SO2 95 % (95-99); Total Carbon Dioxide 24 mmol/L; pCO2 34.8 mmHg (35-45); pH 7.43 (7.35-7.45)
[2024-09-08 07:11] LABS: Absolute Lymphocyte Count 1.13 X10^3/uL (0.83-4.51); Absolute Neutrophil Count 18.8 X10^3/uL (2.0-7.7); Basophil# 0.08 X10^3/uL; Basophil% 0.3 % (0-1); Eosinophil# 1.72 X10^3/uL; Eosinophils% 7.4 % (0-5); Hematocrit 29.7 % (37-47); Hemoglobin 10.1 g/dL (12.0-15.0); Lymphocyte # 1.13 X10^3/ul (0.83-4.51); Lymphocyte % 4.9 % (19-41); Mean Corpuscular Hgb 30.5 pg (27.0-32.0); Mean Corpuscular Volume 89.7 fL (81-99); Mean Platelet Vol. 10.2 fl (6.2-12.0); Monocyte# 0.66 X10^3/uL; Monocyte% 2.9 % (0-10); NRBC Flagged by Analyzer 0.1 % (0-5); Neutrophil # 18.79 X10^3/uL (2.7-7.7); Neutrophil % 81.4 % (47-70); Platelet Count 332 K/mm3 (150-450); RBC Distribution Width CV 15.7 % (11.6-14.6); RBC Distribution Width SD 51.6 fl (35.1-43.9); Red Blood Count 3.31 M/mm3 (4.2-5.4); White Blood Count 23.1 K/mm3 (4.4-11.0)
[2024-09-08 07:15] LABS: O2 Delivery Device Bi Pap
[2024-09-08 07:39] LABS: Anion Gap 10 (5-15); BUN 25 mg/dL (4-19); BUN/Creat Ratio 30.5 RATIO (10-20); Calcium,Total 8.3 mg/dL (7.6-11.0); Carbon Dioxide 20.3 mmol/L (21.0-32.0); Chloride 107 mmol/L (98-108); Creatinine, Serum 0.83 mg/dL (0.70-1.20); EST Glomerular Filtration Rate 68 (>60); Estimated Creatinine Clearance 44.69 ml/min (50-250); Glucose 161 mg/dL (70-99); Potassium 4.1 mmol/L (3.3-5.1); Sodium Level 137 mmol/L (133-145)
[2024-09-08] MEDS: Clopidogrel Bisulfate 75 MG Tablet PO (09:14)
[2024-09-08] MEDS: Metoprolol(XL)Succ 25 MG Tablet 12.5 MG PO ×2 (09:14→21:26)
[2024-09-08] MEDS: Atorvastatin Calcium 40 MG Tablet PO (09:14)
[2024-09-08] MEDS: Aspirin 81 MG TAB.CHEW PO (09:14)
[2024-09-08] MEDS: Magnesium Chloride 64 MG Delay Rel.Tablet 128 MG PO (09:14)
[2024-09-08] MEDS: guaiFENesin 1,200 MG Tablet 1200 MG PO ×2 (09:14→21:25)
[2024-09-08] MEDS: Azithromycin 500 MG in 0.9% Normal Saline (250mL Bag) 250 ML 255 MG IV (10:11)
[2024-09-08] MEDS: 0.9% Saline Lock 10 ML Syringe IV ×2 (10:17→13:39)
[2024-09-08 10:47] LABS: Pro- Brain NATRIURETIC PEPTIDE 4387 pg/mL (<=1800)
[2024-09-08 11:19] LABS: Procalcitonin 0.41 ng/mL (<=0.10)
[2024-09-08] MEDS: Ceftriaxone 2 GM in 0.9% Normal Saline (50mL MB+) 50 ML IV (11:29)
--- NOTE | 2024-09-08 13:02 | EX.PCM.CONCC ---
Assessment & Plan Assessment/Plan (1) Pneumonia: PLAN: Plan RECOMMENDATIONS: 1. Continue supplemental oxygen to maintain saturations at or above 90%. 2. Agree with attempts at diuresis as tolerated by hemodynamics and renal function. 3. Continue empiric antimicrobials. 4. If further decompensation occurs, recommend broadening antimicrobials and adding corticosteroids. 5. PAP therapy with naps and nightly. IMPRESSIONS: 1. Acute hypoxemic respiratory failure Clinical concern for underlying heart failure with preserved ejection fraction versus pneumonia. The patient appears to have worsened clinically over the last 24 hours after receiving volume resuscitation. Her BNP is elevated. Therefore, I agree with attempted volume optimization with IV Lasix, as tolerated by hemodynamics and renal function. In the interim, it is reasonable to continue empiric coverage for community-acquired pneumonia. If the patient were to decompensate clinically, I would recommend that we broaden her antimicrobials and initiate corticosteroids, given her remote history of sarcoidosis. 2. History of coronary artery disease status post PCI/valvular heart disease status post TAVR/sarcoidosis/hypothyroidism Complicates care, management, recovery and prognosis. Continue home medications as indicated. This note was generated with OLX dictation software. It may contain incorrect words, spelling, and punctuation that were not noted in checking the note before signing. HPI Consult Data Date of Consult: 09/08/24 HPI Narrative Reason for Consultation: Acute hypoxemic respiratory failure HPI Narrative: The patient is an 88-year-old female, with a history as outlined below, who presented to the emergency department via EMS on September 06 with generalized weakness and shortness of breath. The patient has a known history of coronary artery disease status post PCI along with valvular heart disease status post TAVR, autoimmune hemolytic anemia, hypothyroidism and history of sarcoidosis. The patient reported that she is a non-smoker, and at her baseline, is not on supplemental oxygen. She does report a minimally productive cough. The patient was previously under the care of a rehab specialist at [facility] on account of her history of sarcoidosis. Approximately 2 to 3 years ago, she was being maintained on methotrexate, but the medication was ultimately discontinued after her disease was felt to be in remission. On presentation to the emergency department, the patient was documented to have a low-grade fever and was tachypneic. She was also noted to be hypoxemic, requiring supplemental oxygen to maintain appropriate saturations. Initial laboratory evaluation was notable for a white blood cell count of 20,000. Arterial blood gas was notable for a pH of 7.5 with a pCO2 of 28 and pO2 of 50. Chemistry profile was notable for a creatinine of 1.26 with a lactate of 2.3. Urine analysis was positive for leukocyte esterase and 3+ urine bacteria. COVID, influenza and RSV PCR's were negative. Chest imaging demonstrated findings concerning for cardiomegaly and pulmonary edema. The patient was initially medically managed with supplemental IV fluids and empiric antimicrobials. Over the course of the last 24 hours, the patient's oxygen requirement has increased. Repeat chest imaging is currently pending. Her BNP is significantly elevated. Therefore, diuretics were initiated today. REPLACED BY [facility] Medical History Sarcoidosis COVID-19 Hemolytic anemia Anemia Non-ST elevation (NSTEMI) myocardial infarction Elevated troponin Hypertension Wears glasses Wears dentures Thyroid disease High cholesterol Non-smoker BiPAP (biphasic positive airway pressure) dependence On home oxygen therapy Shortness of breath on exertion Loss of appetite Chronic cough History of echocardiogram History of stress test Cardiology follow-up encounter Chronic hypoxemic respiratory failure Mediastinal lymphadenopathy Acute febrile illness Essential hypertension Angina pectoris Chest pain ABDIAS (obstructive sleep apnea) Anginal equivalent Nonrheumatic mitral (valve) insufficiency Nonrheumatic aortic (valve) insufficiency Nonrheumatic aortic (valve) stenosis Carotid artery disease Atherosclerotic heart disease of [place] coronary artery without angina pectoris CAD (coronary artery disease) Valvular heart disease Hypothyroidism Aortic insufficiency Hyperlipidemia Home Medications ?Medication ?Instructions ?Recorded ?Last Taken ?Type multivitamin 1 tab PO DAILY vitamin 02/22/21 09/06/24 History aspirin 81 mg tablet,delayed 81 mg PO DAILY@0800 [facility] [place] 02/27/21 09/06/24 Rx release #0 tabs nitroglycerin 0.4 mg sublingual 0.4 mg sublingual Q5-15M PRN chest 03/01/21 Unknown Rx tablet pain 10 days #25 tabs magnesium 250 mg tablet 250 mg PO DAILY Check with primary 05/30/21 09/06/24 History doctor vitamin E (dl, acetate) 180 mg 180 mg PO DAILY Check with primary 05/30/21 09/06/24 History (400 unit) capsule doctor ascorbic acid (vitamin C) 500 mg 1,000 mg PO BID supplement 08/29/21 09/06/24 History capsule coenzyme Q10 100 mg capsule 200 mg PO DAILY coenzyme 08/29/21 09/06/24 History furosemide 40 mg tablet See Rx Instructions .Route 12/30/22 Unknown History .COMPLEX PRN swelling metoprolol succinate 25 mg 25 mg PO BID #180 tabs 11/07/23 09/06/24 Rx tablet,extended release 24 hr losartan 50 mg tablet 50 mg PO DAILY Check with primary 01/12/24 09/06/24 History doctor atorvastatin 40 mg tablet 40 mg PO DAILY #90 tabs 01/28/24 09/05/24 Rx isosorbide mononitrate 30 mg 30 mg PO BID #180 tabs 01/28/24 09/06/24 Rx tablet,extended release 24 hr folic acid 400 mcg tablet 0.4 mg PO QDAY 05/12/24 09/06/24 History selenium 200 mcg capsule 200 mcg PO QDAY 05/12/24 09/06/24 History clopidogrel 75 mg tablet See Rx Instructions .Route 05/17/24 09/06/24 Rx .COMPLEX #90 TABLETS amlodipine 10 mg tablet 10 mg PO DAILY 09/06/24 09/06/24 History levothyroxine 88 mcg tablet 88 mcg PO DAILY 09/06/24 09/06/24 History Allergy/AdvReac Type Severity Reaction Status Date / Time Iodinated Contrast Media Allergy Intermediate Rash Verified 09/06/24 13:45 (Iodinated Contrast- Oral and IV Dye) ramipril (From Altace) AdvReac Severe cough Verified 09/06/24 13:45 ticagrelor (From Brilinta) AdvReac Dyspnea Verified 09/06/24 13:45 Family History Mother , Age 63 Myocardial infarction Father , Age 28 Colon cancer Other Heart disease Surgical History H/O cataract removal with insertion of prosthetic lens S/P TAVR (transcatheter aortic valve replacement) Hx of colonoscopy History of cardiac catheterization History of axillary surgery History of percutaneous transluminal coronary angioplasty (04/16/19) Presence of stent in coronary artery (04/09/21) History of cholecystectomy Social History Smoking Status: Never smoker second hand exposure: No alcohol intake: never substance use type: does not use caffeine: Yes Type: coffee Number of servings: 1 what type of physical activity do you participate in: none frequency: does not exercise ROS ROS Narrative 10 systems were reviewed with pertinent positives as noted in the HPI above. Physical Exam Const alert and no apparent distress Constitutional Narrative: Sitting in bedside recliner with heated high flow cannula in place. General Appearance: cooperative HEENT normocephalic and head/scalp atraumatic Eyes EOMs intact bilaterally, conjunctivae normal and no scleral icterus Neck supple General: trachea midline Chest inspection of chest normal Resp Effort and Inspection: able to speak in complete sentences and tachypneic Auscultation: wheezes and diminished lung sounds Cardio regular rate and regular rhythm Heart Sounds: murmur GI normal to inspection, nondistended, normoactive bowel sounds Extremity no clubbing, cyanosis or edema Skin no rashes or lesions noted Neuro CN's II-XII intact bilaterally, moves all extremities and no focal motor deficits Psych cooperative and affect normal Lab / Micro Data 09/08/24 06:29 09/08/24 06:29 Labs: Laboratory Results - last 24 hr 09/08/24 06:29: WBC 23.1 H, RBC 3.31 L, Hgb 10.1 L, Hct 29.7 L, MCV 89.7, MCH 30.5, MCHC 34.0, RDW Std Deviation 51.6 H, RDW Coeff of Martha 15.7 H, Plt Count 332, MPV 10.2, Immature Gran % (Auto) 3.100 H, Neut % (Auto) 81.4 H, Lymph % (Auto) 4.9 L, [place] % (Auto) 2.9, Eos % (Auto) 7.4 H, Baso % (Auto) 0.3, Absolute Neuts (auto) 18.8 H, Absolute Lymphs (auto) 1.13, Nucleated RBC % 0.1, Sodium 137, Potassium 4.1, Chloride 107, Carbon Dioxide 20.3 L, Anion Gap 10, BUN 25 H, Creatinine 0.83, Estim Creat Clear Calc 44.69 L, Est GFR (MDRD) Non-Af 68, BUN/Creatinine Ratio 30.5 H, Glucose 161 H, Calcium 8.3, NT pro BNP II 4387 H, Procalcitonin 0.41 H Micro: Microbiology 09/06/24 15:37 Urine Catheter - [place] Urine Culture - Final Klebsiella pneumoniae sp pneum ABG Data ABG results: ABG 09/08/24 07:04 Specimen Type ART Sample Site R Brach pH 7.43 Bicarbonate Actual 23.1 Total CO2 24 Base Excess -1 O2 Saturation 95 O2 % 60.0 ABG pCO2 34.8 L ABG pO2 72 L O2 Delivery Device Bi Pap Vent Mode Not entered Clinical Comments 16 10 Charges/Coding Visit Charges Inpatient E&M: 16574 Init Hosp L3
--- NOTE | 2024-09-08 13:18 | PN.HOSP_ITS ---
Subjective Subjective Increased oxygen requirements overnight was placed on BiPAP. BMP this morning was elevated so she was given a dose of Lasix Objective Data Objective Data Vital Signs: Vital Signs Temp Pulse Resp BP Pulse Ox O2 Del Method O2 Flow Rate 98 F 96 23 H 141/76 H 93 Bi-pap 40 09/08/24 05:30 09/08/24 09:14 09/08/24 09:10 09/08/24 05:30 09/08/24 09:10 09/08/24 05:30 09/07/24 20:36 FiO2 78 09/08/24 09:10 Oxygen Flow Rate (L/min) 40 Oxygen Delivery Method Bi-pap Weight: 154 lb 15.759 oz Body Mass Index (BMI) 28.3 Intake & Output: Intake and Output for Last 24 Hours 09/07/24 09/08/24 09/09/24 03:59 03:59 03:59 Intake Total 2805 / 2805 1228.33 / 1228.33 255 / 255 Output Total 550 / 550 1375 / 1375 200 / 200 Balance 2255 / 2255 -146.67 / -146.67 55 / 55 Lab / Micro Data 09/08/24 06:29 09/08/24 06:29 Labs: Laboratory Results - last 24 hr 09/08/24 06:29: WBC 23.1 H, RBC 3.31 L, Hgb 10.1 L, Hct 29.7 L, MCV 89.7, MCH 30.5, MCHC 34.0, RDW Std Deviation 51.6 H, RDW Coeff of [place] 15.7 H, Plt Count 332, MPV 10.2, Immature Gran % (Auto) 3.100 H, Neut % (Auto) 81.4 H, Lymph % (Auto) 4.9 L, [place] % (Auto) 2.9, Eos % (Auto) 7.4 H, Baso % (Auto) 0.3, Absolute Neuts (auto) 18.8 H, Absolute Lymphs (auto) 1.13, Nucleated RBC % 0.1, Sodium 137, Potassium 4.1, Chloride 107, Carbon Dioxide 20.3 L, Anion Gap 10, BUN 25 H, Creatinine 0.83, Estim Creat Clear Calc 44.69 L, Est GFR (MDRD) Non-Af 68, B UN/Creatinine Ratio 30.5 H, Glucose 161 H, Calcium 8.3, NT pro BNP II 4387 H, P rocalcitonin 0.41 H Micro: Microbiology 09/06/24 15:37 Urine Catheter - [place] Urine Culture - Final Klebsiella pneumoniae sp pneum 09/06/24 23:50 Mucosa - Nasopharyngeal Respiratory Panel (PCR) - Final 09/06/24 20:40 Urine Catheter - [place] Streptococcus pneumoniae Antigen (M - Final 09/06/24 20:40 Urine Catheter - [place] Legionella Antigen - Final 09/06/24 14:33 Mucosa - Nose SARS-CoV-2, Influenza & RSV (PCR) - Final ABG Data ABG results: ABG 09/08/24 07:04 Specimen Type ART Sample Site R Brach pH 7.43 Bicarbonate Actual 23.1 Total CO2 24 Base Excess -1 O2 Saturation 95 O2 % 60.0 ABG pCO2 34.8 L ABG pO2 72 L O2 Delivery Device Bi Pap Vent Mode Not entered Clinical Comments 16 10 Physical Exam Narrative General: Alert, Oriented x3, Cooperative, No apparent distress HEENT: Atraumatic, PERRLA, EOMI, Normocephalic Oral: Moist Mucosa Neck: Supple, No JVD Lungs: Diminished, Normal air movement, scattered rhonchi, No wheeze, No rales Cardiovascular: Regular rate, Regular Rhythm, Normal S1, Normal S2, No murmurs Abdomen: Soft, Non Tender, Non-Distended, No Hepato-splenomegaly Extremities: No edema, Capillary Refill Less than 3 Seconds Skin: No rashes, No breakdown Musculoskeletal: No Tenderness to Palpation of Joints or Extremities Neurological: No focal neurological deficits, Motor Exam 5/5 strength throughout, Sensory exam intact to light touch and pain Psych/Mental Status: Flat, unhappy to be on BiPAP Assessment & Plan Assessment/Plan (1) Pneumonia: PLAN: Plan 1. Sepsis with acute hypoxic respiratory failure secondary to community- acquired pneumonia ? Wean oxygen as able ? Continue with Rocephin and azithromycin ? Symptomatically she is behaving like fluid overload despite having an unremarkable echo a month ago, we will trial her on Lasix ? Cultures are pending, respiratory panel and Legionella and strep antigens are negative. COVID panel was also negative ? Pulmonology states that she has a history of sarcoidosis in the past, so the Lasix does not work may need steroids and broaden the antibiotics 2. Essential HTN/HLD/CAD status post stenting/history of TAVR ? Continue with her home blood pressure medications ? Her metoprolol dosing has been lowered because of bradycardia on admission ? Will monitor and make adjustments as necessary ? Continue with aspirin and Plavix 3. Hypothyroidism ? Stable ? Continue with Synthroid DVT: Lovenox Charges/Coding Visit Charges Inpatient E&M: 70478 Subs Hosp L2
[2024-09-08] MEDS: Furosemide 40 MG/4 ML Vial IV ×2 (13:38→18:09)
--- NOTE | 2024-09-08 13:50 | RAD_ITS ---
PROCEDURE: CHEST 1 VIEW (PORTABLE) 09/08/2024 REASON FOR EXAM: RESPIRATORY FAILURE TECHNIQUE: Frontal view of the chest. COMPARISON: Chest x-ray of 09/06/2024. RAD/Chest 1 View (Portable) IMPRESSION: Extensive bilateral airspace disease is again seen, with noticeable Interval Wo rsening since the prior study of 09/06/2024. Questionable small left pleural effusion. No pneumothorax is noted. The cardiomediastinal silhouette is probably unchanged. Aortic stent unchanged in position. No acute osseous process is noted. Reading Location: [id number]
[2024-09-09] VITALS (19 sets, daily range): BP systolic 109–146; BP diastolic 49–88; PULSE 71–96; RESP 14–26; TEMP 36.4–37.6; O2SAT 92–96; BMI 27.5
[2024-09-09] MEDS: Ipratropium/Albuterol Sulfate 3 ML AMPUL.NEB INHALATION ×3 (01:09→19:26)
[2024-09-09] MEDS: Acetaminophen 325 MG Tablet 650 MG PO (03:51)
[2024-09-09] MEDS: Levothyroxine 88 MCG Tablet PO (05:08)
[2024-09-09] MEDS: Enoxaparin 40 MG/0.4 ML Syringe SC (05:08)
[2024-09-09 06:10] LABS: Absolute Lymphocyte Count 1.21 X10^3/uL (0.83-4.51); Absolute Neutrophil Count 19.2 X10^3/uL (2.0-7.7); Basophil# 0.06 X10^3/uL; Basophil% 0.3 % (0-1); Eosinophil# 2.39 X10^3/uL; Hematocrit 31.8 % (37-47); Hemoglobin 10.6 g/dL (12.0-15.0); Lymphocyte # 1.21 X10^3/ul (0.83-4.51); Lymphocyte % 5.1 % (19-41); Mean Corp Hgb Conc 33.3 g/dL (32-36); Mean Corpuscular Hgb 29.6 pg (27.0-32.0); Mean Corpuscular Volume 88.8 fL (81-99); Mean Platelet Vol. 10.4 fl (6.2-12.0); Monocyte# 0.45 X10^3/uL; Monocyte% 1.9 % (0-10); NRBC Flagged by Analyzer 0 % (0-5); Neutrophil # 19.22 X10^3/uL (2.7-7.7); Neutrophil % 80.3 % (47-70); POSITIVE DIFFERENTIAL YES; POSITIVE MORPHOLOGY YES; Platelet Count 351 K/mm3 (150-450); RBC Distribution Width CV 15.6 % (11.6-14.6); RBC Distribution Width SD 50.8 fl (35.1-43.9); Red Blood Count 3.58 M/mm3 (4.2-5.4); White Blood Count 23.9 K/mm3 (4.4-11.0)
[2024-09-09 06:13] LABS: Differential Indicated SCAN CRITERIA MET
[2024-09-09 06:37] LABS: Anion Gap 11 (5-15); BUN 25 mg/dL (4-19); BUN/Creat Ratio 26.6 RATIO (10-20); Calcium,Total 8.4 mg/dL (7.6-11.0); Carbon Dioxide 23.8 mmol/L (21.0-32.0); Chloride 103 mmol/L (98-108); Creatinine, Serum 0.93 mg/dL (0.70-1.20); EST Glomerular Filtration Rate 60 (>60); Estimated Creatinine Clearance 39.31 ml/min (50-250); Glucose 139 mg/dL (70-99); Potassium 3.7 mmol/L (3.3-5.1); Sodium Level 138 mmol/L (133-145)
[2024-09-09] MEDS: Vancomycin HCl 1,750 MG in 0.9% Normal Saline (500mL Bag) 500 ML 250 MG IV (07:00)
[2024-09-09] MEDS: Methylprednisolone Sod Succ 40 MG/ML VIAL IV ×3 (07:16→17:46)
[2024-09-09 09:19] LABS: Platelet Estimate 320 (ADEQ)
[2024-09-09] MEDS: Piperacil/Tazobactam 3.375 GM in 0.9% Normal Saline (50mL MB+) 50 ML IV ×3 (09:24→22:29)
[2024-09-09] MEDS: Clopidogrel Bisulfate 75 MG Tablet PO (10:00)
[2024-09-09] MEDS: Atorvastatin Calcium 40 MG Tablet PO (10:00)
[2024-09-09] MEDS: Magnesium Chloride 64 MG Delay Rel.Tablet 128 MG PO (10:00)
[2024-09-09] MEDS: Metoprolol(XL)Succ 25 MG Tablet 12.5 MG PO ×2 (10:01→22:28)
[2024-09-09] MEDS: Aspirin 81 MG TAB.CHEW PO (10:01)
[2024-09-09] MEDS: guaiFENesin 1,200 MG Tablet 1200 MG PO ×2 (10:01→22:28)
[2024-09-09] MEDS: Furosemide 40 MG/4 ML Vial IV (10:03)
[2024-09-09] MEDS: 0.9% Saline Lock 10 ML Syringe IV ×4 (10:04→22:29)
--- NOTE | 2024-09-09 10:04 | PCM.PN.INT ---
Assessment & Plan Assessment/Plan (1) Pneumonia: PLAN: Plan RECOMMENDATIONS: 1. Continue supplemental oxygen to maintain saturations at or above 90%. 2. Broaden antimicrobials as ordered. 3. Start scheduled IV corticosteroids as ordered. 4. Continue attempts at volume optimization with IV diuretics, as tolerated by hemodynamics and renal function. 5. PAP therapy with naps and nightly. IMPRESSIONS: 1. Acute hypoxemic respiratory failure Clinical concern for underlying heart failure with preserved ejection fraction versus pneumonia. She does have a remote history of sarcoidosis, which was apparently in remission for the last several years. The patient's respiratory status still remains quite tenuous, nevertheless. Accordingly, I have elected to broaden her antimicrobials this morning and place her empirically on corticosteroids. I agree with continuing attempts at volume optimization with IV diuretic therapy, as tolerated by hemodynamics and renal function. 2. History of coronary artery disease status post PCI/valvular heart disease status post TAVR/sarcoidosis/hypothyroidism Complicates care, management, recovery and prognosis. Continue home medications as indicated. This note was generated with [employer] dictation software. It may contain incorrect words, spelling, and punctuation that were not noted in checking the note before signing. Subjective Subjective The patient was seen and examined at the bedside this morning. Events from the last 24 hours have been reviewed. The patient did spike a fever overnight to 102.7 ?F. She has remained otherwise hemodynamically stable. Nevertheless, the patient remains on heated high flow oxygen with a flow rate of 55 L/min and FiO2 of 83%. She did receive 2 doses of IV Lasix yesterday. Given her tenuous respiratory status, I did elect to broaden her antimicrobials this morning and have added corticosteroids. White blood cell count remains elevated at 24,000. Creatinine is within normal limits. Objective Data Objective Data The patient's most recent lab work, culture data and imaging studies have all been personally reviewed. COVID, influenza and RSV PCR's were negative. Vital Signs: Vital Signs Temp Pulse Resp BP Pulse Ox O2 Del Method O2 Flow Rate 98.0 F 89 22 H 128/61 H 93 Airvo 55 09/09/24 09:54 09/09/24 09:54 09/09/24 09:54 09/09/24 09:54 09/09/24 09:54 09/09/24 09:54 09/09/24 09:54 FiO2 83 09/09/24 09:54 Oxygen Flow Rate (L/min) 55 Oxygen Delivery Method Airvo Weight: 150 lb 5.684 oz Body Mass Index (BMI) 27.5 Intake & Output: Intake and Output for Last 24 Hours 09/07/24 09/08/24 09/09/24 23:59 23:59 23:59 Intake Total 1228.33 / 1228.33 305 / 805 1275 / 1275 Output Total 1625 / 1625 1650 / 3250 1999 Balance -396.67 / -396.67 -1345 / -2445 -725 / -725 Lab / Micro Data Attestation: I reviewed the patient's lab results. 09/09/24 05:13 09/09/24 05:13 Labs: Laboratory Results - last 24 hr 09/08/24 06:29: NT pro BNP II 4387 H, Procalcitonin 0.41 H 09/09/24 05:13: WBC 23.9 H, RBC 3.58 L, Hgb 10.6 L, Hct 31.8 L, MCV 88.8, MCH 29.6, MCHC 33.3, RDW Std Deviation 50.8 H, RDW Coeff of Martha 15.6 H, Plt Count 351, MPV 10.4, Immature Gran % (Auto) 2.400 H, Neut % (Auto) 80.3 H, Lymph % (Auto) 5.1 L, [place] % (Auto) 1.9, Eos % (Auto) 10.0 H, Baso % (Auto) 0.3, Absolute Neuts (auto) 19.2 H, Absolute Lymphs (auto) 1.21, Nucleated RBC % 0, Platelet Estimate 320, Sodium 138, Potassium 3.7, Chloride 103, Carbon Dioxide 23.8, Anion Gap 11, BUN 25 H, Creatinine 0.93, Estim Creat Clear Calc 39.31 L, Est GFR (MDRD) Non-Af 60, BUN/Creatinine Ratio 26.6 H, Glucose 139 H, Calcium 8.4 Micro: Microbiology 09/06/24 14:25 Blood Culture (Wb) - Anticubital Left Blood Culture - Preliminary No growth in 48 hours. 09/06/24 14:20 Blood Culture (Wb) - Anticubital Right Blood Culture - Preliminary No growth in 48 hours. 09/06/24 15:37 Urine Catheter - [place] Urine Culture - Final Klebsiella pneumoniae sp pneum 09/06/24 23:50 Mucosa - Nasopharyngeal Respiratory Panel (PCR) - Final 09/06/24 20:40 Urine Catheter - [place] Streptococcus pneumoniae Antigen (M - Final 09/06/24 20:40 Urine Catheter - [place] Legionella Antigen - Final 09/06/24 14:33 Mucosa - Nose SARS-CoV-2, Influenza & RSV (PCR) - Final Radiography Diagnostic Testing: Radiology Impression Chest X-Ray 09/08/24 13:50 IMPRESSION: Extensive bilateral airspace disease is again seen, with noticeable Interval Worsening since the prior study of 09/06/2024. Questionable small left pleural effusion. No pneumothorax is noted. The cardiomediastinal silhouette is probably unchanged. Aortic stent unchanged in position. No acute osseous process is noted. Reading Location: [address] Physical Exam Const alert and no apparent distress Constitutional Narrative: Sitting in bedside recliner with heated high flow cannula in place. General Appearance: cooperative HEENT normocephalic and head/scalp atraumatic Eyes EOMs intact bilaterally, conjunctivae normal and no scleral icterus Neck supple General: trachea midline Chest inspection of chest normal Resp Resp Narrative: Crackles, predominantly throughout left hemithorax Effort and Inspection: able to speak in complete sentences Auscultation: diminished lung sounds Cardio regular rate and regular rhythm Heart Sounds: murmur GI normal to inspection, nondistended, normoactive bowel sounds Extremity no clubbing, cyanosis or edema Skin no rashes or lesions noted Neuro CN's II-XII intact bilaterally, moves all extremities and no focal motor deficits Psych cooperative and affect normal Charges/Coding Visit Charges Inpatient E&M: 71845 Subs Hosp L3
--- NOTE | 2024-09-09 10:40 | PCM.RX.CS ---
Consult Antibiotic Management Pharmacy has been consulted to manage selected antibiotic: Vancomycin Type of Intervention Type of Consult: New start Suspected Infection Suspected Infection: Sepsis and Pneumonia Prior Doses of Antibiotics Prior Doses of Antibiotics Received/Current Regimen: LOADING DOSE 1750 MG ONCE Labs Labs: Sodium 138 mmol/L (133-145) 09/09/24 05:13 Potassium 3.7 mmol/L (3.3-5.1) 09/09/24 05:13 Chloride 103 mmol/L (98-108) 09/09/24 05:13 Carbon Dioxide 23.8 mmol/L (21.0-32.0) 09/09/24 05:13 Anion Gap 11 (5-15) 09/09/24 05:13 BUN 25 mg/dL (4-19) H 09/09/24 05:13 Creatinine 0.93 mg/dL (0.70-1.20) 09/09/24 05:13 Est GFR (MDRD) Non-Af 60 (>60) 09/09/24 05:13 BUN/Creatinine Ratio 26.6 RATIO (10-20) H 09/09/24 05:13 Glucose 139 mg/dL (70-99) H 09/09/24 05:13 Microbiology Microbiology: Microbiology 09/06/24 14:25 Blood Culture (Wb) - Anticubital Left Blood Culture - Preliminary No growth in 48 hours. 09/06/24 14:20 Blood Culture (Wb) - Anticubital Right Blood Culture - Preliminary No growth in 48 hours. 09/06/24 15:37 Urine Catheter - [place] Urine Culture - Final Klebsiella pneumoniae sp pneum 09/06/24 23:50 Mucosa - Nasopharyngeal Respiratory Panel (PCR) - Final 09/06/24 20:40 Urine Catheter - [place] Streptococcus pneumoniae Antigen (M - Final 09/06/24 20:40 Urine Catheter - [place] Legionella Antigen - Final 09/06/24 14:33 Mucosa - Nose SARS-CoV-2, Influenza & RSV (PCR) - Final Dosing Weight Weight used for dosin.2 kg Estimated Creatinine Clearance Estimated Creatinine Clearance: 39.31 Goal Trough Goal Trough: 15-20 mcg/mL Pharmacy Plan for Drug Dosing Pharmacy Plan for Drug Dosing: Pharmacy Service will continue to monitor and adjust dosing as required. NEW START IV VANCOMYCIN Consulting Physician: Ketosonparag Indication: Sepsis/ Secondary to CAP Goal Trough: 15-20 SrCr: 0.93 CrCl:39.31 Comments: Vancomycin Dose: 500MG Q12H Pending Level: 09/10/20241829 Follow-Up Labs Follow-Up Labs: Trough: Vancomycin (09/10/20241829)
--- NOTE | 2024-09-09 11:54 | PCM.PN.HOSP ---
Subjective Subjective Feels better, breathing a little bit better on Airvo Objective Data Objective Data Vital Signs: Vital Signs Temp Pulse Resp BP Pulse Ox O2 Del Method O2 Flow Rate 98.0 F 89 22 H 128/61 H 93 Airvo 55 09/09/24 09:54 09/09/24 10:01 09/09/24 09:54 09/09/24 09:54 09/09/24 10:24 09/09/24 09:54 09/09/24 10:24 FiO2 83 09/09/24 09:54 Oxygen Flow Rate (L/min) 55 Oxygen Delivery Method Airvo Weight: 150 lb 5.684 oz Body Mass Index (BMI) 27.5 Intake & Output: Intake and Output for Last 24 Hours 09/08/24 09/09/24 09/10/24 03:59 03:59 03:59 Intake Total 1228.33 / 1228.33 805 / 805 775 / 775 Output Total 1375 / 1375 2950 / 2950 400 / 400 Balance -146.67 / -146.67 -2145 / -2145 375 / 375 Lab / Micro Data 09/09/24 05:13 09/09/24 05:13 Labs: Laboratory Results - last 24 hr 09/09/24 05:13: WBC 23.9 H, RBC 3.58 L, Hgb 10.6 L, Hct 31.8 L, MCV 88.8, MCH 29.6, MCHC 33.3, RDW Std Deviation 50.8 H, RDW Coeff of Martha 15.6 H, Plt Count 351, MPV 10.4, Immature Gran % (Auto) 2.400 H, Neut % (Auto) 80.3 H, Lymph % (Auto) 5.1 L, [place] % (Auto) 1.9, Eos % (Auto) 10.0 H, Baso % (Auto) 0.3, Absolute Neuts (auto) 19.2 H, Absolute Lymphs (auto) 1.21, Nucleated RBC % 0, Platelet Estimate 320, Sodium 138, Potassium 3.7, Chloride 103, Carbon Dioxide 23.8, Anion Gap 11, BUN 25 H, Creatinine 0.93, Estim Creat Clear Calc 39.31 L, Est GFR (MDRD) Non-Af 60, BUN/Creatinine Ratio 26.6 H, Glucose 139 H, Calcium 8.4 Micro: Microbiology 03/24/25 14:25 Blood Culture (Wb) - Anticubital Left Blood Culture - Preliminary No growth in 48 hours. 09/06/24 14:20 Blood Culture (Wb) - Anticubital Right Blood Culture - Preliminary No growth in 48 hours. 09/06/24 15:37 Urine Catheter - [place] Urine Culture - Final Klebsiella pneumoniae sp pneum 09/06/24 23:50 Mucosa - Nasopharyngeal Respiratory Panel (PCR) - Final 09/06/24 20:40 Urine Catheter - [place] Streptococcus pneumoniae Antigen (M - Final 09/06/24 20:40 Urine Catheter - [place] Legionella Antigen - Final 09/06/24 14:33 Mucosa - Nose SARS-CoV-2, Influenza & RSV (PCR) - Final Radiography Diagnostic Testing: Radiology Impression Chest X-Ray 09/08/24 13:50 IMPRESSION: Extensive bilateral airspace disease is again seen, with noticeable Interval Worsening since the prior study of 09/06/2024. Questionable small left pleural effusion. No pneumothorax is noted. The cardiomediastinal silhouette is probably unchanged. Aortic stent unchanged in position. No acute osseous process is noted. Reading Location: [address] Physical Exam Narrative General: Alert, Oriented x3, Cooperative, No apparent distress HEENT: Atraumatic, PERRLA, EOMI, Normocephalic Oral: Moist Mucosa Neck: Supple, No JVD Lungs: Diminished, Normal air movement, scattered rhonchi, No wheeze, No rales Cardiovascular: Regular rate, Regular Rhythm, Normal S1, Normal S2, No murmurs Abdomen: Soft, Non Tender, Non-Distended, No Hepato-splenomegaly Extremities: No edema, Capillary Refill Less than 3 Seconds Skin: No rashes, No breakdown Musculoskeletal: No Tenderness to Palpation of Joints or Extremities Neurological: No focal neurological deficits, Motor Exam 5/5 strength throughout, Sensory exam intact to light touch and pain Psych/Mental Status: Flat Assessment & Plan Assessment/Plan (1) Pneumonia: PLAN: Plan 1. Sepsis with acute hypoxic respiratory failure secondary to community-acquired pneumonia ? Wean oxygen as able ? Which CT scan and MRI of his brain slight increase in her white count antibiotics were broadened to Vanco and Zosyn ? Symptomatically she is behaving like fluid overload despite having an unremarkable echo a month ago, we will trial her on intermittent Lasix ? Cultures are pending, respiratory panel and Legionella and strep antigens are negative. COVID panel was also negative ? Pulmonology states that she has a history of sarcoidosis in the past, she was started on steroids this morning 2. Essential HTN/HLD/CAD status post stenting/history of TAVR ? Continue with her home blood pressure medications ? Her metoprolol dosing has been lowered because of bradycardia on admission ? Will monitor and make adjustments as necessary ? Continue with aspirin and Plavix 3. Hypothyroidism ? Stable ? Continue with Synthroid DVT: Lovenox Charges/Coding Visit Charges Inpatient E&M: 56397 Subs Hosp L2
[2024-09-09] MEDS: 0.9% Normal Saline (100mL Bag) 100 ML 15 ML IV (13:07)
[2024-09-09] MEDS: Vancomycin IV 500 MG/100 ML BAG 100 MG IV (18:54)
[2024-09-10] VITALS (16 sets, daily range): BP systolic 136–151; BP diastolic 50–59; PULSE 68–95; RESP 14–22; TEMP 36.3–36.6; O2SAT 92–98; BMI 28.1
[2024-09-10] MEDS: Methylprednisolone Sod Succ 40 MG/ML VIAL IV ×4 (01:01→18:05)
[2024-09-10] MEDS: 0.9% Saline Lock 10 ML Syringe IV ×4 (01:01→18:05)
[2024-09-10] MEDS: Vancomycin IV 500 MG/100 ML BAG 100 MG IV (06:13)
[2024-09-10] MEDS: Enoxaparin 40 MG/0.4 ML Syringe SC (06:13)
[2024-09-10] MEDS: Levothyroxine 88 MCG Tablet PO (06:13)
[2024-09-10] MEDS: Ipratropium/Albuterol Sulfate 3 ML AMPUL.NEB INHALATION ×3 (07:15→19:19)
[2024-09-10] MEDS: Piperacil/Tazobactam 3.375 GM in 0.9% Normal Saline (50mL MB+) 50 ML IV ×3 (07:17→20:41)
[2024-09-10 08:10] LABS: Absolute Lymphocyte Count 1.62 X10^3/uL (0.83-4.51); Absolute Neutrophil Count 22.4 X10^3/uL (2.0-7.7); Basophil# 0.06 X10^3/uL; Basophil% 0.2 % (0-1); Eosinophil# 0.02 X10^3/uL; Eosinophils% 0.1 % (0-5); Hematocrit 30.8 % (37-47); Hemoglobin 10.4 g/dL (12.0-15.0); Lymphocyte # 1.62 X10^3/ul (0.83-4.51); Lymphocyte % 6.4 % (19-41); Mean Corp Hgb Conc 33.8 g/dL (32-36); Mean Corpuscular Volume 88.8 fL (81-99); Mean Platelet Vol. 10.7 fl (6.2-12.0); Monocyte# 0.52 X10^3/uL; Monocyte% 2.1 % (0-10); NRBC Flagged by Analyzer 0 % (0-5); Neutrophil # 22.36 X10^3/uL (2.7-7.7); Neutrophil % 88.4 % (47-70); POSITIVE DIFFERENTIAL YES; Platelet Count 330 K/mm3 (150-450); RBC Distribution Width CV 15.6 % (11.6-14.6); RBC Distribution Width SD 50.4 fl (35.1-43.9); Red Blood Count 3.47 M/mm3 (4.2-5.4); White Blood Count 25.3 K/mm3 (4.4-11.0)
[2024-09-10] MEDS: Aspirin 81 MG TAB.CHEW PO (08:14)
[2024-09-10] MEDS: Atorvastatin Calcium 40 MG Tablet PO (08:14)
[2024-09-10] MEDS: guaiFENesin 1,200 MG Tablet 1200 MG PO ×2 (08:15→20:37)
[2024-09-10] MEDS: Metoprolol(XL)Succ 25 MG Tablet 12.5 MG PO ×2 (08:15→20:37)
[2024-09-10] MEDS: Magnesium Chloride 64 MG Delay Rel.Tablet 128 MG PO (08:16)
[2024-09-10] MEDS: Clopidogrel Bisulfate 75 MG Tablet PO (08:16)
[2024-09-10 08:20] LABS: Differential Indicated SCAN CRITERIA MET
--- NOTE | 2024-09-10 10:25 | PCM.PN.INT ---
Assessment & Plan Assessment/Plan (1) Pneumonia: PLAN: Plan RECOMMENDATIONS: 1. Continue supplemental oxygen to maintain saturations at or above 90%. 2. Continue broad-spectrum antimicrobials to complete at least 7 days of therapy. 3. Continue scheduled IV corticosteroids as ordered. 4. Continue intermittent use of diuretics to maintain euvolemic state. 5. PAP therapy with naps and nightly. IMPRESSIONS: 1. Acute hypoxemic respiratory failure Clinical concern for underlying heart failure with preserved ejection fraction versus pneumonia. She does have a remote history of sarcoidosis, which was apparently in remission for the last several years. The patient's respiratory status still remains quite tenuous, nevertheless. Accordingly, she will be continued on broad-spectrum antimicrobials along with IV corticosteroids. I would recommend the ongoing utilization of diuretics to maintain euvolemic state. Encourage incentive spirometer use and mobilize patient as tolerated. 2. History of coronary artery disease status post PCI/valvular heart disease status post TAVR/sarcoidosis/hypothyroidism Complicates care, management, recovery and prognosis. Continue home medications as indicated. This note was generated with [employer] dictation software. It may contain incorrect words, spelling, and punctuation that were not noted in checking the note before signing. Subjective Subjective The patient was seen and examined at the bedside this morning. Events from the last 24 hours have been reviewed. The patient is currently afebrile, hemodynamically stable and maintaining appropriate oxygen saturations on heated high flow with an FiO2 requirement of 55%. White blood cell count is elevated at 25,000. Hemoglobin and platelet count are stable. The patient feels otherwise unchanged. Objective Data Objective Data The patient's most recent lab work, culture data and imaging studies have all been personally reviewed. COVID, influenza and RSV PCR's were negative. Vital Signs: Vital Signs Temp Pulse Resp BP Pulse Ox O2 Del Method O2 Flow Rate 97.3 F L 71 18 136/57 H 96 Airvo 55 09/10/24 08:11 09/10/24 08:15 09/10/24 08:11 09/10/24 08:11 09/10/24 08:11 09/10/24 08:11 09/10/24 08:11 FiO2 60 09/10/24 08:11 Oxygen Flow Rate (L/min) 55 Oxygen Delivery Method Airvo Weight: 153 lb 14.122 oz Body Mass Index (BMI) 28.1 Intake & Output: Intake and Output for Last 24 Hours 09/08/24 09/09/24 09/10/24 23:59 23:59 23:59 Intake Total 305 / 805 2469.75 / 2469.75 150 / 150 Output Total 1650 / 3250 2775 / 2775 500 / 500 Balance -1345 / -2445 -305.25 / -305.25 -350 / -350 Lab / Micro Data Attestation: I reviewed the patient's lab results. 09/10/24 07:30 09/09/24 05:13 Labs: Laboratory Results - last 24 hr 09/10/24 07:30: WBC 25.3 H, RBC 3.47 L, Hgb 10.4 L, Hct 30.8 L, MCV 88.8, MCH 30.0, MCHC 33.8, RDW Std Deviation 50.4 H, RDW Coeff of Martha 15.6 H, Plt Count 330, MPV 10.7, Immature Gran % (Auto) 2.800 H, Neut % (Auto) 88.4 H, Lymph % (Auto) 6.4 L, [place] % (Auto) 2.1, Eos % (Auto) 0.1, Baso % (Auto) 0.2, Absolute Neuts (auto) 22.4 H, Absolute Lymphs (auto) 1.62, Nucleated RBC % 0 Micro: Microbiology 09/06/24 14:25 Blood Culture (Wb) - Anticubital Left Blood Culture - Preliminary No growth in 48 hours. 09/06/24 14:20 Blood Culture (Wb) - Anticubital Right Blood Culture - Preliminary No growth in 48 hours. 09/06/24 15:37 Urine Catheter - [place] Urine Culture - Final Klebsiella pneumoniae sp pneum 09/06/24 23:50 Mucosa - Nasopharyngeal Respiratory Panel (PCR) - Final 09/06/24 20:40 Urine Catheter - [place] Streptococcus pneumoniae Antigen (M - Final 09/06/24 20:40 Urine Catheter - [place] Legionella Antigen - Final 09/06/24 14:33 Mucosa - Nose SARS-CoV-2, Influenza & RSV (PCR) - Final Radiography Diagnostic Testing: Radiology Impression Chest X-Ray 09/08/24 13:50 IMPRESSION: Extensive bilateral airspace disease is again seen, with noticeable Interval Worsening since the prior study of 09/06/2024. Questionable small left pleural effusion. No pneumothorax is noted. The cardiomediastinal silhouette is probably unchanged. Aortic stent unchanged in position. No acute osseous process is noted. Reading Location: [address] Physical Exam Const alert, oriented x3 and no apparent distress Constitutional Narrative: Sitting upright in bed. General Appearance: cooperative HEENT normocephalic, head/scalp atraumatic and moist oral mucous membranes Eyes EOMs intact bilaterally, conjunctivae normal and no scleral icterus Neck supple General: trachea midline Chest inspection of chest normal Resp no use of accessory muscles Effort and Inspection: able to speak in complete sentences Auscultation: rales and diminished lung sounds Cardio regular rate and regular rhythm Heart Sounds: murmur GI normal to inspection, nondistended, normoactive bowel sounds Extremity no clubbing, cyanosis or edema Skin no rashes or lesions noted Neuro CN's II-XII intact bilaterally, moves all extremities and no focal motor deficits Psych cooperative and affect normal Charges/Coding Visit Charges Inpatient E&M: 01173 Subs Hosp L2
[2024-09-10 10:48] LABS: Anion Gap 13 (5-15); BUN 35 mg/dL (4-19); Calcium,Total 8.6 mg/dL (7.6-11.0); Carbon Dioxide 22.2 mmol/L (21.0-32.0); Chloride 101 mmol/L (98-108); Creatinine, Serum 0.91 mg/dL (0.70-1.20); EST Glomerular Filtration Rate 62 (>60); Estimated Creatinine Clearance 40.62 ml/min (50-250); Glucose 301 mg/dL (70-99); Potassium 3.8 mmol/L (3.3-5.1); Sodium Level 136 mmol/L (133-145)
--- NOTE | 2024-09-10 10:58 | PCM.PN.HOSP ---
Subjective Subjective Improvement in her oxygen requirements overnight. White count still went up slightly but now she is on steroids Objective Data Objective Data Vital Signs: Vital Signs Temp Pulse Resp BP Pulse Ox O2 Del Method O2 Flow Rate 97.3 F L 71 18 136/57 H 96 Airvo 55 09/10/24 08:11 09/10/24 08:15 09/10/24 08:11 09/10/24 08:11 09/10/24 08:11 09/10/24 08:11 09/10/24 08:11 FiO2 60 09/10/24 08:11 Oxygen Flow Rate (L/min) 55 Oxygen Delivery Method Airvo Weight: 153 lb 14.122 oz Body Mass Index (BMI) 28.1 Intake & Output: Intake and Output for Last 24 Hours 09/09/24 09/10/24 09/11/24 03:59 03:59 03:59 Intake Total 805 / 805 2019.75 / 2019.75 100 / 100 Output Total 2950 / 2950 1175 / 1175 500 / 500 Balance -2145 / -2145 844.75 / 844.75 -400 / -400 Lab / Micro Data 09/10/24 07:30 09/10/24 07:30 Labs: Laboratory Results - last 24 hr 09/10/24 07:30: WBC 25.3 H, RBC 3.47 L, Hgb 10.4 L, Hct 30.8 L, MCV 88.8, MCH 30.0, MCHC 33.8, RDW Std Deviation 50.4 H, RDW Coeff of Martha 15.6 H, Plt Count 330, MPV 10.7, Immature Gran % (Auto) 2.800 H, Neut % (Auto) 88.4 H, Lymph % (Auto) 6.4 L, [place] % (Auto) 2.1, Eos % (Auto) 0.1, Baso % (Auto) 0.2, Absolute Neuts (auto) 22.4 H, Absolute Lymphs (auto) 1.62, Nucleated RBC % 0, Sodium 136, Potassium 3.8, Chloride 101, Carbon Dioxide 22.2, Anion Gap 13, BUN 35 H, Creatinine 0.91, Estim Creat Clear Calc 40.62 L, Est GFR (MDRD) Non-Af 62, BUN/Creatinine Ratio 39.0 H, Glucose 301 H, Calcium 8.6 Micro: Microbiology 09/06/24 14:25 Blood Culture (Wb) - Anticubital Left Blood Culture - Preliminary No growth in 48 hours. 09/06/24 14:20 Blood Culture (Wb) - Anticubital Right Blood Culture - Preliminary No growth in 48 hours. 09/06/24 15:37 Urine Catheter - [place] Urine Culture - Final Klebsiella pneumoniae sp pneum 09/06/24 23:50 Mucosa - Nasopharyngeal Respiratory Panel (PCR) - Final 09/06/24 20:40 Urine Catheter - [place] Streptococcus pneumoniae Antigen (M - Final 09/06/24 20:40 Urine Catheter - [place] Legionella Antigen - Final 09/06/24 14:33 Mucosa - Nose SARS-CoV-2, Influenza & RSV (PCR) - Final Physical Exam Narrative General: Alert, Oriented x3, Cooperative, No apparent distress HEENT: Atraumatic, PERRLA, EOMI, Normocephalic Oral: Moist Mucosa Neck: Supple, No JVD Lungs: Diminished, Normal air movement, scattered rhonchi, No wheeze, No rales Cardiovascular: Regular rate, Regular Rhythm, Normal S1, Normal S2, No murmurs Abdomen: Soft, Non Tender, Non-Distended, No Hepato-splenomegaly Extremities: No edema, Capillary Refill Less than 3 Seconds Skin: No rashes, No breakdown Musculoskeletal: No Tenderness to Palpation of Joints or Extremities Neurological: No focal neurological deficits, Motor Exam 5/5 strength throughout, Sensory exam intact to light touch and pain Psych/Mental Status: Flat Assessment & Plan Assessment/Plan (1) Pneumonia: PLAN: Plan 1. Sepsis with acute hypoxic respiratory failure secondary to community-acquired pneumonia/Klebsiella UTI ? Wean oxygen as able ?Continue with Vanco and Zosyn ?If significant respiratory improvement with Lasix, will hold off further diuresis ? Cultures are pending, respiratory panel and Legionella and strep antigens are negative. COVID panel was also negative ? Pulmonology states that she has a history of sarcoidosis in the past, continue with steroids 2. Essential HTN/HLD/CAD status post stenting/history of TAVR ? Continue with her home blood pressure medications ? Her metoprolol dosing has been lowered because of bradycardia on admission ? Will monitor and make adjustments as necessary ? Continue with aspirin and Plavix 3. Hypothyroidism ? Stable ? Continue with Synthroid DVT: Lovenox Charges/Coding Visit Charges Inpatient E&M: 05660 Subs Hosp L2
[2024-09-10 13:41] LABS: Polychromasia 1+
[2024-09-10 20:33] LABS: Vancomycin, Trough Level 12.6 ug/mL (5.0-15.0)
--- NOTE | 2024-09-10 20:43 | PCM.RX.CS ---
Consult Antibiotic Management Pharmacy has been consulted to manage selected antibiotic: Vancomycin Type of Intervention Type of Consult: Follow-up Suspected Infection Suspected Infection: Sepsis and Pneumonia Prior Doses of Antibiotics Prior Doses of Antibiotics Received/Current Regimen: Vancomycin 500 mg Q12H last dose given 09/10 @ 0613 Labs Labs: Sodium 136 mmol/L (133-145) 09/10/24 07:30 Potassium 3.8 mmol/L (3.3-5.1) 09/10/24 07:30 Chloride 101 mmol/L (98-108) 09/10/24 07:30 Carbon Dioxide 22.2 mmol/L (21.0-32.0) 09/10/24 07:30 Anion Gap 13 (5-15) 09/10/24 07:30 BUN 35 mg/dL (4-19) H 09/10/24 07:30 Creatinine 0.91 mg/dL (0.70-1.20) 09/10/24 07:30 Est GFR (MDRD) Non-Af 62 (>60) 09/10/24 07:30 BUN/Creatinine Ratio 39.0 RATIO (10-20) H 09/10/24 07:30 Glucose 301 mg/dL (70-99) H 09/10/24 07:30 Vancomycin Trough 12.6 ug/mL (5.0-15.0) 09/10/24 19:06 Microbiology Microbiology: Microbiology 09/06/24 14:25 Blood Culture (Wb) - Anticubital Left Blood Culture - Preliminary No growth in 48 hours. 09/06/24 14:20 Blood Culture (Wb) - Anticubital Right Blood Culture - Preliminary No growth in 48 hours. 09/06/24 15:37 Urine Catheter - [place] Urine Culture - Final Klebsiella pneumoniae sp pneum 09/06/24 23:50 Mucosa - Nasopharyngeal Respiratory Panel (PCR) - Final 09/06/24 20:40 Urine Catheter - [place] Streptococcus pneumoniae Antigen (M - Final 09/06/24 20:40 Urine Catheter - [place] Legionella Antigen - Final 09/06/24 14:33 Mucosa - Nose SARS-CoV-2, Influenza & RSV (PCR) - Final Dosing Weight Weight used for dosin kg Estimated Creatinine Clearance Estimated Creatinine Clearance: ~ 41 Goal Trough Goal Trough: 15-20 mcg/mL Pharmacy Plan for Drug Dosing Pharmacy Plan for Drug Dosing: Vancomycin trough = 12.6, increase to 1250 mg Q24H Pharmacy Service will continue to monitor and adjust dosing as required. Follow-Up Labs Follow-Up Labs: Trough: Vancomycin Date/Time Labs Ordered Labs to be done on [date and time ordered]: 09/12/24 @ 2030
[2024-09-10] MEDS: Vancomycin HCl 1,250 MG in 0.9% Normal Saline (250mL Bag) 250 ML 167 MG IV (21:39)
--- NOTE | 2024-09-10 23:19 | CPS ---
decreased fio2 to 55%
[2024-09-11] VITALS (14 sets, daily range): BP systolic 135–155; BP diastolic 52–63; PULSE 61–76; RESP 17–24; TEMP 36.4–36.7; O2SAT 90–98; BMI 29.2
[2024-09-11] MEDS: Methylprednisolone Sod Succ 40 MG/ML VIAL IV ×5 (00:13→23:57)
[2024-09-11] MEDS: 0.9% Saline Lock 10 ML Syringe IV ×2 (00:16→19:55)
--- NOTE | 2024-09-11 01:47 | CPS ---
decreased fio2 to 45%- nurse aware
[2024-09-11] MEDS: Piperacil/Tazobactam 3.375 GM in 0.9% Normal Saline (50mL MB+) 50 ML IV ×3 (05:15→22:18)
[2024-09-11] MEDS: Levothyroxine 88 MCG Tablet PO (05:15)
[2024-09-11] MEDS: Enoxaparin 40 MG/0.4 ML Syringe SC (05:15)
[2024-09-11 05:28] LABS: Absolute Lymphocyte Count 1.69 X10^3/uL (0.83-4.51); Absolute Neutrophil Count 20.2 X10^3/uL (2.0-7.7); Basophil# 0.07 X10^3/uL; Basophil% 0.3 % (0-1); Hematocrit 29.3 % (37-47); Hemoglobin 9.9 g/dL (12.0-15.0); Lymphocyte # 1.69 X10^3/ul (0.83-4.51); Lymphocyte % 7.3 % (19-41); Mean Corp Hgb Conc 33.8 g/dL (32-36); Mean Corpuscular Volume 88.8 fL (81-99); Mean Platelet Vol. 10.5 fl (6.2-12.0); Monocyte# 0.49 X10^3/uL; Monocyte% 2.1 % (0-10); NRBC Flagged by Analyzer 0 % (0-5); Neutrophil % 86.8 % (47-70); POSITIVE DIFFERENTIAL YES; POSITIVE MORPHOLOGY YES; Platelet Count 369 K/mm3 (150-450); RBC Distribution Width CV 15.5 % (11.6-14.6); RBC Distribution Width SD 50.3 fl (35.1-43.9); White Blood Count 23.3 K/mm3 (4.4-11.0)
[2024-09-11 05:34] LABS: Differential Indicated SCAN CRITERIA MET
[2024-09-11 05:59] LABS: Anion Gap 11 (5-15); BUN 35 mg/dL (4-19); BUN/Creat Ratio 40.3 RATIO (10-20); Calcium,Total 8.7 mg/dL (7.6-11.0); Carbon Dioxide 23.2 mmol/L (21.0-32.0); Chloride 103 mmol/L (98-108); Creatinine, Serum 0.86 mg/dL (0.70-1.20); EST Glomerular Filtration Rate 65 (>60); Estimated Creatinine Clearance 42.98 ml/min (50-250); Glucose 269 mg/dL (70-99); Sodium Level 137 mmol/L (133-145)
[2024-09-11] MEDS: Ipratropium/Albuterol Sulfate 3 ML AMPUL.NEB INHALATION ×3 (07:32→19:14)
--- NOTE | 2024-09-11 09:21 | PN.HOSP_ITS ---
Subjective Subjective Feels little bit better, making some improvements in her Airvo. White count improving Objective Data Objective Data Vital Signs: Vital Signs Temp Pulse Resp BP Pulse Ox O2 Del Method O2 Flow Rate 97.7 F L 69 20 H 144/56 H 91 Airvo 45 09/11/24 02:00 09/11/24 07:35 09/11/24 07:35 09/11/24 02:00 09/11/24 07:35 09/11/24 07:35 09/11/24 07:35 FiO2 50 09/11/24 07:35 Oxygen Flow Rate (L/min) 45 Oxygen Delivery Method Airvo Weight: 159 lb 9.835 oz Body Mass Index (BMI) 29.2 Intake & Output: Intake and Output for Last 24 Hours 09/10/24 09/11/24 09/12/24 03:59 03:59 03:59 Intake Total 2018.75 / 2018.75 1365 / 1365 50 / 50 Output Total 1175 / 1175 1300 / 1300 300 / 300 Balance 844.75 / 844.75 65 / 65 -250 / -250 Lab / Micro Data 09/11/24 04:37 09/11/24 04:37 Labs: Laboratory Results - last 24 hr 09/10/24 07:30: Polychromasia 1+, Sodium 136, Potassium 3.8, Chloride 101, Carbon Dioxide 22.2, Anion Gap 13, BUN 35 H, Creatinine 0.91, Estim Creat Clear Calc 40.62 L, Est GFR (MDRD) Non-Af 62, BUN/Creatinine Ratio 39.0 H, Glucose 301 H, Calcium 8.6 09/10/24 19:06: Vancomycin Trough 12.6 09/11/24 04:37: WBC 23.3 H, RBC 3.30 L, Hgb 9.9 L, Hct 29.3 L, MCV 88.8, MCH 30.0, MCHC 33.8, RDW Std Deviation 50.3 H, RDW Coeff of Martha 15.5 H, Plt Count 369, MPV 10.5, Immature Gran % (Auto) 3.500 H, Neut % (Auto) 86.8 H, Lymph % (Auto) 7.3 L, [place] % (Auto) 2.1, Eos % (Auto) 0.0, Baso % (Auto) 0.3, Absolute Neuts (auto) 20.2 H, Absolute Lymphs (auto) 1.69, Nucleated RBC % 0, Sodium 137, Potassium 4.0, Chloride 103, Carbon Dioxide 23.2, Anion Gap 11, BUN 35 H, Creatinine 0.86, Estim Creat Clear Calc 42.98 L, Est GFR (MDRD) Non-Af 65, B UN/Creatinine Ratio 40.3 H, Glucose 269 H, Calcium 8.7 Micro: Microbiology 09/06/24 14:25 Blood Culture (Wb) - Anticubital Left Blood Culture - Preliminary No growth in 48 hours. 09/06/24 14:20 Blood Culture (Wb) - Anticubital Right Blood Culture - Preliminary No growth in 48 hours. 09/06/24 15:37 Urine Catheter - [place] Urine Culture - Final Klebsiella pneumoniae sp pneum 09/06/24 23:50 Mucosa - Nasopharyngeal Respiratory Panel (PCR) - Final 09/06/24 20:40 Urine Catheter - [place] Streptococcus pneumoniae Antigen (M - Final 09/06/24 20:40 Urine Catheter - [place] Legionella Antigen - Final 09/06/24 14:33 Mucosa - Nose SARS-CoV-2, Influenza & RSV (PCR) - Final Physical Exam Narrative General: Alert, Oriented x3, Cooperative, No apparent distress HEENT: Atraumatic, PERRLA, EOMI, Normocephalic Oral: Moist Mucosa Neck: Supple, No JVD Lungs: Diminished, Normal air movement, scattered rhonchi, No wheeze, No rales Cardiovascular: Regular rate, Regular Rhythm, Normal S1, Normal S2, No murmurs Abdomen: Soft, Non Tender, Non-Distended, No Hepato-splenomegaly Extremities: No edema, Capillary Refill Less than 3 Seconds Skin: No rashes, No breakdown Musculoskeletal: No Tenderness to Palpation of Joints or Extremities Neurological: No focal neurological deficits, Motor Exam 5/5 strength throughout, Sensory exam intact to light touch and pain Psych/Mental Status: Normal affect Assessment & Plan Assessment/Plan (1) Pneumonia: PLAN: Plan 1. Sepsis with acute hypoxic respiratory failure secondary to community- acquired pneumonia/Klebsiella UTI ? Wean oxygen as able ?Continue with Vanco and Zosyn ? Continue with steroids and breathing treatment, will hold off any further Lasix at this time ?Urine culture with Klebsiella, respiratory panel and Legionella and strep antigens are negative. COVID panel was also negative ? Pulmonology states that she has a history of sarcoidosis in the past, continue with steroids 2. Essential HTN/HLD/CAD status post stenting/history of TAVR ? Continue with her home blood pressure medications ? Her metoprolol dosing has been lowered because of bradycardia on admission ? Will monitor and make adjustments as necessary ? Continue with aspirin and Plavix 3. Hypothyroidism ? Stable ? Continue with Synthroid DVT: Lovenox Charges/Coding Visit Charges Inpatient E&M: 12561 Subs Hosp L2
[2024-09-11] MEDS: Aspirin 81 MG TAB.CHEW PO (09:41)
[2024-09-11] MEDS: Metoprolol(XL)Succ 25 MG Tablet 12.5 MG PO ×2 (09:41→19:54)
[2024-09-11] MEDS: Atorvastatin Calcium 40 MG Tablet PO (09:42)
[2024-09-11] MEDS: Clopidogrel Bisulfate 75 MG Tablet PO (09:42)
[2024-09-11] MEDS: Magnesium Chloride 64 MG Delay Rel.Tablet 128 MG PO (09:42)
[2024-09-11] MEDS: guaiFENesin 1,200 MG Tablet 1200 MG PO ×2 (09:42→19:54)
--- NOTE | 2024-09-11 10:48 | PN.CC_ITS ---
Objective Data Objective Data Vital Signs: Vital Signs Last response 3 Temperature 36.6 C 09/11/24 08:00 Temperature Source Oral 09/11/24 08:00 Pulse Rate 73 09/11/24 10:30 Pulse Strength Normal (2+) 09/11/24 10:00 Respiratory Rate 22 H 09/11/24 10:30 Respiratory Effort Non-Labored 09/11/24 09:40 Respiratory Depth Normal 09/10/24 22:00 Respiratory Pattern Normal 09/11/24 10:30 Blood Pressure 152/60 H 09/11/24 08:00 Blood Pressure Mean 90 09/11/24 08:00 Blood Pressure Source Monitor 09/11/24 08:00 Blood Pressure Position Semi-Fowlers 09/11/24 08:00 Blood Pressure Location Right Arm 09/11/24 08:00 Pulse Ox 92 09/11/24 10:30 Oxygen Delivery Method Airvo 09/11/24 10:30 Oxygen Flow Rate (L/min) 45 09/11/24 10:30 Fraction of Inspired Oxygen (FIO2) 60 09/11/24 10:30 I&O: I&O Last 24 Hours 3 09/10/24 09/10/24 09/11/24 11:59 23:59 11:59 Intake Total 200 / 1365 765 / 1365 550 / 550 Output Total 500 / 1300 1100 / 1100 Balance -300 / 65 765 / 65 -550 / -550 I&O: Total Stay 3 09/06/24 13:31 thru 09/11/24 09:15 Intake Total 8323.08 Output Total 7650 Balance 673.08 Current Meds Ordered / Administered: Current meds ordered / Administered 3 Generic Name Dose Route Start Last Admin Trade Name Freq PRN Reason Stop Dose Admin Acetaminophen 650 mg 09/06/24 19:26 09/09/24 03:51 Acetaminophen 325 Mg Tablet PO 650 mg Q6H PRN PRN Administration Pain 1-10 Or Fever >100.7 Albuterol Sulfate 2.5 mg 09/06/24 19:26 09/07/24 16:55 Albuterol 2.5 Mg/3 Ml Vial.Neb. INHALATION 2.5 mg Q2H PRN PRN Administration SOB &/OR WHEEZING Albuterol/Ipratropium 3 ml 09/06/24 19:26 09/11/24 07:32 Ipratropium/Albuterol Sulfate 3 Ml Ampul.Neb INHALATION 3 ml Q6H.RT LUDIN Administration Aspirin 81 mg 09/07/24 08:00 09/11/24 09:42 Aspirin 81 Mg Tab.Chew PO 81 mg DAILY@0800 LUDIN Administration Atorvastatin Calcium 40 mg 09/07/24 10:00 09/11/24 09:42 Atorvastatin Calcium 40 Mg Tablet PO 40 mg DAILY LUDIN Administration Clopidogrel Bisulfate 75 mg 09/07/24 10:00 09/11/24 09:42 Clopidogrel Bisulfate 75 Mg Tablet PO 75 mg DAILY LUDIN Administration Enoxaparin Sodium 40 mg 09/08/24 06:00 09/11/24 05:15 Enoxaparin 40 Mg/0.4 Ml Syringe SC 40 mg DAILY@0600 LUDIN Administration Guaifenesin 1,200 mg 09/06/24 22:00 09/11/24 09:42 Guaifenesin 1,200 Mg Tablet PO 1,200 mg BID LUDIN Administration Piperacillin Sod/Tazobactam 50 mls @ 12.5 mls/hr 09/09/24 06:00 09/11/24 09:15 Sod 3.375 gm/ Sodium Chloride IV Infused Q8 LUDIN Infusion Vancomycin IV-PHARMACY TO DOSE 500 mls @ 250 mls/hr 09/09/24 05:47 1 each/ Sodium Chloride IV X1 PRN Rx to Dose Protocol Sodium Chloride 100 mls @ 15 mls/hr 09/09/24 09:27 09/10/24 11:40 IV Infused .Q6H40M PRN Infusion Saline Flush Sodium Chloride 100 mls @ 15 mls/hr 09/09/24 09:27 IV .Q6H40M PRN Additional IVPB Infusion Vancomycin HCl 1,250 mg/ 275 mls @ 167 mls/hr 09/10/24 21:00 09/10/24 23:34 Sodium Chloride IV Infused Q24H LUDIN Infusion Levothyroxine Sodium 88 mcg 09/07/24 06:00 09/11/24 05:15 Levothyroxine 88 Mcg Tablet PO 88 mcg DAILY@0600 LUDIN Administration Magnesium Chloride 128 mg 09/07/24 10:00 09/11/24 09:42 Magnesium Chloride 64 Mg Delay Rel.Tablet PO 128 mg DAILY LUDIN Administration Melatonin 3 mg 09/06/24 19:26 Melatonin 3 Mg Tablet PO QHS PRN PRN INSOMNIA Methylprednisolone Sodium Succinate 40 mg 09/09/24 06:00 09/11/24 05:15 Methylprednisolone Sod Succ 40 Mg/Ml Vial IV 40 mg Q6 LUDIN Administration Metoprolol Succinate 12.5 mg 09/06/24 22:00 09/11/24 09:41 Metoprolol(Xl)Succ 25 Mg Tablet PO 12.5 mg BID LUDIN Administration Protocol Ondansetron HCl 4 mg 09/06/24 19:26 Ondansetron 4 Mg/2 Ml Vial IV Q8H PRN PRN NAUSEA/VOMITING Senna/Docusate Sodium 2 tablet 09/06/24 19:26 Senna/Docusate Sodium 1 Tablet PO BID PRN PRN Constipation Sodium Chloride 10 - 40 ml 09/06/24 19:45 09/11/24 00:16 0.9% Saline Lock 10 Ml Syringe IV 10 ml UD PRN Administration SALINE FLUSH Vancomycin Protocol 1 lab 09/12/24 18:30 Vancomycin Trough/Random Due [facility] 09/12/24 22:30 DAILY [facility] Lab / Micro Data Attestation: I reviewed the patient's lab results. 09/11/24 04:37 09/11/24 04:37 Labs: Laboratory Results - last 24 hr 09/10/24 07:30: Polychromasia 1+, Sodium 136, Potassium 3.8, Chloride 101, Carbon Dioxide 22.2, Anion Gap 13, BUN 35 H, Creatinine 0.91, Estim Creat Clear Calc 40.62 L, Est GFR (MDRD) Non-Af 62, BUN/Creatinine Ratio 39.0 H, Glucose 301 H, Calcium 8.6 09/10/24 19:06: Vancomycin Trough 12.6 09/11/24 04:37: WBC 23.3 H, RBC 3.30 L, Hgb 9.9 L, Hct 29.3 L, MCV 88.8, MCH 30.0, MCHC 33.8, RDW Std Deviation 50.3 H, RDW Coeff of Martha 15.5 H, Plt Count 369, MPV 10.5, Immature Gran % (Auto) 3.500 H, Neut % (Auto) 86.8 H, Lymph % (Auto) 7.3 L, [place] % (Auto) 2.1, Eos % (Auto) 0.0, Baso % (Auto) 0.3, Absolute Neuts (auto) 20.2 H, Absolute Lymphs (auto) 1.69, Nucleated RBC % 0, Sodium 137, Potassium 4.0, Chloride 103, Carbon Dioxide 23.2, Anion Gap 11, BUN 35 H, Creatinine 0.86, Estim Creat Clear Calc 42.98 L, Est GFR (MDRD) Non-Af 65, B UN/Creatinine Ratio 40.3 H, Glucose 269 H, Calcium 8.7 Assessment and Plan . Assessment and plan: IMPRESSIONS: 1. Acute hypoxemic respiratory failure; multifactorial with bilateral L>R infiltrates, possible HFpEF, past sarcoidosis 2. Histories of coronary artery disease status post PCI/valvular heart disease status post TAVR/sarcoidosis/hypothyroidism Complicates care, management, recovery and prognosis. Continue home medications as indicated. RECOMMENDATIONS: 1. Continue supplemental oxygen to maintain saturations at or above 90%. 2. Continue broad-spectrum antimicrobials to complete at least 7 days of therapy. 3. Continue scheduled IV corticosteroids as ordered. 4. Continue intermittent use of diuretics to maintain euvolemic state. 5. PAP therapy with naps and nightly. 6. Will recheck CXR in AM Critical Care Time: 50 minutes The entirety of this encounter was done via Telemedicine Physical Exam Const alert and oriented x3 General Appearance: cooperative and ill appearing HEENT General Ear: hearing grossly impaired Eyes PERRL Neck no JVD Resp Effort and Inspection: uses accessory muscles Auscultation: rales Subjective Subjective Chart reviewed, she states she is about the same, remains on high-flow O2 with marginal O2 saturations. 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
[2024-09-11] MEDS: Vancomycin HCl 1,250 MG in 0.9% Normal Saline (250mL Bag) 250 ML 167 MG IV (19:52)
--- NOTE | 2024-09-11 21:37 | CPS ---
PATIENT REFUSED PAP THERAPY FOR THE NIGHT, CURRENTLY ON AIRVO 45L AND 40% SPO2 94%
[2024-09-12] VITALS (13 sets, daily range): BP systolic 160–167; BP diastolic 62–66; PULSE 67–74; RESP 17–20; TEMP 36.6–37.1; O2SAT 90–99; BMI 28.8
[2024-09-12] MEDS: Methylprednisolone Sod Succ 40 MG/ML VIAL IV ×2 (05:30→12:29)
[2024-09-12] MEDS: Levothyroxine 88 MCG Tablet PO (05:30)
[2024-09-12] MEDS: Piperacil/Tazobactam 3.375 GM in 0.9% Normal Saline (50mL MB+) 50 ML IV ×3 (05:30→23:08)
[2024-09-12] MEDS: Enoxaparin 40 MG/0.4 ML Syringe SC (05:30)
--- NOTE | 2024-09-12 06:00 | RAD_ITS ---
PROCEDURE: CHEST 1 VIEW (PORTABLE) 09/12/2024 REASON FOR EXAM: 88-year-old female, FOLLOW UP RESPIRATORY FAILURE TECHNIQUE: Frontal view of the chest. COMPARISON: Chest radiograph 08/19/2024. FINDINGS: Hardware: Prior TAVR. Heart: Calcific plaque of the thoracic aorta. Lungs: Slight interval improvement in the extensive bilateral airspace opacities, greater in the lower lung zones. Probable trace left pleural effusion. No pneumothorax. Bones: Degenerative changes are identified within the thoracic spine. RAD/Chest 1 View (Portable) IMPRESSION: Slight interval improvement in the extensive bilateral airspace opacities. Pro bable trace left pleural effusion. Reading Location: [id number]
[2024-09-12 07:11] LABS: Absolute Lymphocyte Count 1.57 X10^3/uL (0.83-4.51); Absolute Neutrophil Count 14.4 X10^3/uL (2.0-7.7); Basophil# 0.03 X10^3/uL; Basophil% 0.2 % (0-1); Hematocrit 29.9 % (37-47); Lymphocyte # 1.57 X10^3/ul (0.83-4.51); Lymphocyte % 9.1 % (19-41); Mean Corp Hgb Conc 33.4 g/dL (32-36); Mean Corpuscular Hgb 30.4 pg (27.0-32.0); Mean Corpuscular Volume 90.9 fL (81-99); Mean Platelet Vol. 10.6 fl (6.2-12.0); Monocyte# 0.53 X10^3/uL; Monocyte% 3.1 % (0-10); NRBC Flagged by Analyzer 0 % (0-5); Neutrophil # 14.39 X10^3/uL (2.7-7.7); Neutrophil % 83.3 % (47-70); POSITIVE MORPHOLOGY YES; Platelet Count 353 K/mm3 (150-450); RBC Distribution Width CV 15.5 % (11.6-14.6); RBC Distribution Width SD 51.4 fl (35.1-43.9); Red Blood Count 3.29 M/mm3 (4.2-5.4); White Blood Count 17.3 K/mm3 (4.4-11.0)
[2024-09-12 07:14] LABS: Differential Indicated SCAN CRITERIA MET
[2024-09-12] MEDS: Ipratropium/Albuterol Sulfate 3 ML AMPUL.NEB INHALATION ×4 (07:51→19:08)
[2024-09-12 08:05] LABS: Anion Gap 10 (5-15); BUN 32 mg/dL (4-19); BUN/Creat Ratio 39.9 RATIO (10-20); Calcium,Total 8.5 mg/dL (7.6-11.0); Carbon Dioxide 22.3 mmol/L (21.0-32.0); Chloride 103 mmol/L (98-108); Creatinine, Serum 0.81 mg/dL (0.70-1.20); EST Glomerular Filtration Rate 70 (>60); Glucose 306 mg/dL (70-99); Potassium 4.5 mmol/L (3.3-5.1); Sodium Level 135 mmol/L (133-145)
[2024-09-12] MEDS: Aspirin 81 MG TAB.CHEW PO (09:31)
[2024-09-12] MEDS: Magnesium Chloride 64 MG Delay Rel.Tablet 128 MG PO (09:31)
[2024-09-12] MEDS: Atorvastatin Calcium 40 MG Tablet PO (09:31)
[2024-09-12] MEDS: Clopidogrel Bisulfate 75 MG Tablet PO (09:32)
[2024-09-12] MEDS: guaiFENesin 1,200 MG Tablet 1200 MG PO ×2 (09:32→21:34)
[2024-09-12] MEDS: Metoprolol(XL)Succ 25 MG Tablet 12.5 MG PO ×2 (09:32→21:33)
[2024-09-12] MEDS: 0.9% Saline Lock 10 ML Syringe IV (12:30)
--- NOTE | 2024-09-12 12:44 | PCM.PN.HOSP ---
Subjective Subjective Seems to be improving from a respiratory standpoint, while she is still on Airvo FiO2 is decreasing with Objective Data Objective Data Vital Signs: Vital Signs Temp Pulse Resp BP Pulse Ox O2 Del Method O2 Flow Rate 97.9 F 74 19 H 160/64 H 92 Airvo 45 09/12/24 09:26 09/12/24 09:32 09/12/24 09:26 09/12/24 09:32 09/12/24 09:26 09/12/24 09:38 09/12/24 07:51 FiO2 40 09/12/24 07:51 Oxygen Flow Rate (L/min) 45 Oxygen Delivery Method Airvo Weight: 157 lb 13.616 oz Body Mass Index (BMI) 28.8 Intake & Output: Intake and Output for Last 24 Hours 09/11/24 09/12/24 09/13/24 03:59 03:59 03:59 Intake Total 1365 / 1365 798.75 / 798.75 50 / 50 Output Total 1300 / 1300 400 / 400 Balance 65 / 65 398.75 / 398.75 50 / 50 Lab / Micro Data 09/12/24 04:34 09/12/24 04:34 Labs: Laboratory Results - last 24 hr 09/12/24 04:34: WBC 17.3 H, RBC 3.29 L, Hgb 10.0 L, Hct 29.9 L, MCV 90.9, MCH 30.4, MCHC 33.4, RDW Std Deviation 51.4 H, RDW Coeff of Martha 15.5 H, Plt Count 353, MPV 10.6, Immature Gran % (Auto) 4.300 H, Neut % (Auto) 83.3 H, Lymph % (Auto) 9.1 L, [place] % (Auto) 3.1, Eos % (Auto) 0.0, Baso % (Auto) 0.2, Absolute Neuts (auto) 14.4 H, Absolute Lymphs (auto) 1.57, Nucleated RBC % 0, Sodium 135, Potassium 4.5, Chloride 103, Carbon Dioxide 22.3, Anion Gap 10, BUN 32 H, Creatinine 0.81, Estim Creat Clear Calc 46.20 L, Est GFR (MDRD) Non-Af 70, BUN/Creatinine Ratio 39.9 H, Glucose 306 H, Calcium 8.5 Micro: Microbiology 09/06/24 14:25 Blood Culture (Wb) - Anticubital Left Blood Culture - Final No growth in 5 days. 09/06/24 14:20 Blood Culture (Wb) - Anticubital Right Blood Culture - Final No growth in 5 days. 09/06/24 15:37 Urine Catheter - [place] Urine Culture - Final Klebsiella pneumoniae sp pneum 09/06/24 23:50 Mucosa - Nasopharyngeal Respiratory Panel (PCR) - Final 09/06/24 20:40 Urine Catheter - [place] Streptococcus pneumoniae Antigen (M - Final 09/06/24 20:40 Urine Catheter - [place] Legionella Antigen - Final 09/06/24 14:33 Mucosa - Nose SARS-CoV-2, Influenza & RSV (PCR) - Final Radiography Diagnostic Testing: Radiology Impression Chest X-Ray 09/12/24 06:00 IMPRESSION: Slight interval improvement in the extensive bilateral airspace opacities. Probable trace left pleural effusion. Reading Location: [facility] Physical Exam Narrative General: Alert, Oriented x3, Cooperative, No apparent distress HEENT: Atraumatic, PERRLA, EOMI, Normocephalic Oral: Moist Mucosa Neck: Supple, No JVD Lungs: Diminished, Normal air movement, scattered rhonchi, No wheeze, No rales Cardiovascular: Regular rate, Regular Rhythm, Normal S1, Normal S2, No murmurs Abdomen: Soft, Non Tender, Non-Distended, No Hepato-splenomegaly Extremities: No edema, Capillary Refill Less than 3 Seconds Skin: No rashes, No breakdown Musculoskeletal: No Tenderness to Palpation of Joints or Extremities Neurological: No focal neurological deficits, Motor Exam 5/5 strength throughout, Sensory exam intact to light touch and pain Psych/Mental Status: Normal affect Assessment & Plan Assessment/Plan (1) Pneumonia: PLAN: Plan 1. Sepsis with acute hypoxic respiratory failure secondary to community-acquired pneumonia/Klebsiella UTI ? Wean oxygen as able ?Continue with Vanco and Zosyn ? Continue with steroids and breathing treatment, will transition to PO prednisone ?Urine culture with Klebsiella, respiratory panel and Legionella and strep antigens are negative. COVID panel was also negative ? Pulmonology states that she has a history of sarcoidosis in the past, continue with steroids 2. Essential HTN/HLD/CAD status post stenting/history of TAVR ? Continue with her home blood pressure medications ? Her metoprolol dosing has been lowered because of bradycardia on admission ? Will monitor and make adjustments as necessary ? Continue with aspirin and Plavix 3. Hypothyroidism ? Stable ? Continue with Synthroid DVT: Lovenox Charges/Coding Visit Charges Inpatient E&M: 11129 Subs Hosp L2
[2024-09-12 20:45] LABS: Vancomycin, Trough Level 13.6 ug/mL (5.0-15.0)
--- NOTE | 2024-09-12 20:55 | PCM.RX.CS ---
Consult Antibiotic Management Pharmacy has been consulted to manage selected antibiotic: Vancomycin Type of Intervention Type of Consult: Follow-up Suspected Infection Suspected Infection: Sepsis and Pneumonia Labs Labs: Sodium 135 mmol/L (133-145) 09/12/24 04:34 Potassium 4.5 mmol/L (3.3-5.1) 09/12/24 04:34 Chloride 103 mmol/L (98-108) 09/12/24 04:34 Carbon Dioxide 22.3 mmol/L (21.0-32.0) 09/12/24 04:34 Anion Gap 10 (5-15) 09/12/24 04:34 BUN 32 mg/dL (4-19) H 09/12/24 04:34 Creatinine 0.81 mg/dL (0.70-1.20) 09/12/24 04:34 Est GFR (MDRD) Non-Af 70 (>60) 09/12/24 04:34 BUN/Creatinine Ratio 39.9 RATIO (10-20) H 09/12/24 04:34 Glucose 306 mg/dL (70-99) H 09/12/24 04:34 Vancomycin Trough 13.6 ug/mL (5.0-15.0) 09/12/24 19:48 Microbiology Microbiology: Microbiology 09/06/24 14:25 Blood Culture (Wb) - Anticubital Left Blood Culture - Final No growth in 5 days. 09/06/24 14:20 Blood Culture (Wb) - Anticubital Right Blood Culture - Final No growth in 5 days. 09/06/24 15:37 Urine Catheter - [place] Urine Culture - Final Klebsiella pneumoniae sp pneum 09/06/24 23:50 Mucosa - Nasopharyngeal Respiratory Panel (PCR) - Final 09/06/24 20:40 Urine Catheter - [place] Streptococcus pneumoniae Antigen (M - Final 09/06/24 20:40 Urine Catheter - [place] Legionella Antigen - Final 09/06/24 14:33 Mucosa - Nose SARS-CoV-2, Influenza & RSV (PCR) - Final Estimated Creatinine Clearance Estimated Creatinine Clearance: 46.2 Goal Trough Goal Trough: 15-20 mcg/mL Pharmacy Plan for Drug Dosing Pharmacy Plan for Drug Dosing: VANCOMYCIN LEVEL RECEIVED Current Vancomycin Dose: 1250mg Q24H Number of Doses Received: 1250mg x2 since last adjustment Vancomycin Level: 13.6 Hours Since Last Dose: 24 Renal Function: sCr 0.81 Renal Function Trend: stable Lab/Micro: pending Vancomycin Plan/Comments: Increase Vancomycin dosing regimen to 1500mg Q24H Pending Level: Vancomycin trough @ 20:30 09/14/24 Pharmacy Service will continue to monitor and adjust dosing as required. Follow-Up Labs Follow-Up Labs: Trough: Vancomycin (09/14/24 @ 20:30)
[2024-09-12] MEDS: Vancomycin HCl 1,500 MG in 0.9% Normal Saline (500mL Bag) 500 ML 250 MG IV (21:22)
[2024-09-13] VITALS (25 sets, daily range): BP systolic 140–175; BP diastolic 55–72; PULSE 64–91; RESP 15–33; TEMP 36.4–36.9; O2SAT 72–98
[2024-09-13] MEDS: Ipratropium/Albuterol Sulfate 3 ML AMPUL.NEB INHALATION ×4 (01:41→19:54)
[2024-09-13] MEDS: Piperacil/Tazobactam 3.375 GM in 0.9% Normal Saline (50mL MB+) 50 ML IV ×3 (05:17→22:53)
[2024-09-13] MEDS: Enoxaparin 40 MG/0.4 ML Syringe SC (05:18)
[2024-09-13] MEDS: Levothyroxine 88 MCG Tablet PO (05:18)
[2024-09-13 06:57] LABS: Absolute Lymphocyte Count 3.28 X10^3/uL (0.83-4.51); Absolute Neutrophil Count 14.2 X10^3/uL (2.0-7.7); Basophil# 0.06 X10^3/uL; Basophil% 0.3 % (0-1); Eosinophil# 0.23 X10^3/uL; Eosinophils% 1.2 % (0-5); Hematocrit 31.2 % (37-47); Hemoglobin 10.4 g/dL (12.0-15.0); Lymphocyte # 3.28 X10^3/ul (0.83-4.51); Lymphocyte % 16.9 % (19-41); Mean Corp Hgb Conc 33.3 g/dL (32-36); Mean Corpuscular Volume 89.9 fL (81-99); Mean Platelet Vol. 10.2 fl (6.2-12.0); Monocyte# 0.76 X10^3/uL; Monocyte% 3.9 % (0-10); NRBC Flagged by Analyzer 0.4 % (0-5); Neutrophil # 14.19 X10^3/uL (2.7-7.7); Neutrophil % 73.1 % (47-70); POSITIVE MORPHOLOGY YES; Platelet Count 325 K/mm3 (150-450); RBC Distribution Width CV 15.3 % (11.6-14.6); RBC Distribution Width SD 49.8 fl (35.1-43.9); Red Blood Count 3.47 M/mm3 (4.2-5.4); White Blood Count 19.4 K/mm3 (4.4-11.0)
[2024-09-13 07:04] LABS: Differential Indicated SCAN CRITERIA MET
[2024-09-13 07:43] LABS: Anion Gap 10 (5-15); BUN 26 mg/dL (4-19); BUN/Creat Ratio 35.4 RATIO (10-20); Calcium,Total 8.5 mg/dL (7.6-11.0); Carbon Dioxide 24.1 mmol/L (21.0-32.0); Chloride 103 mmol/L (98-108); Creatinine, Serum 0.72 mg/dL (0.70-1.20); EST Glomerular Filtration Rate 81 (>60); Estimated Creatinine Clearance 46.78 ml/min (50-250); Glucose 167 mg/dL (70-99); Potassium 4.2 mmol/L (3.3-5.1); Sodium Level 137 mmol/L (133-145)
[2024-09-13 08:21] LABS: Atypical Lymphocyte 1+ %
--- NOTE | 2024-09-13 09:50 | PCM.PN.INT ---
Assessment & Plan Assessment/Plan (1) Pneumonia: PLAN: Plan RECOMMENDATIONS: 1. Continue supplemental oxygen to maintain saturations at or above 90%. 2. Continue broad-spectrum antimicrobials to complete at least 7 days of therapy. 3. Continue scheduled corticosteroids. 4. Continue intermittent use of diuretics to maintain euvolemic state. 5. PAP therapy with naps and nightly. 6. Obtain CTA chest. IMPRESSIONS: 1. Acute hypoxemic respiratory failure Clinical concern for underlying heart failure with preserved ejection fraction versus pneumonia. She does have a remote history of sarcoidosis, which was apparently in remission for the last several years. The patient's respiratory status still remains quite tenuous, nevertheless. Accordingly, she will be continued on broad-spectrum antimicrobials along with corticosteroids. I would recommend the ongoing utilization of diuretics to maintain euvolemic state. Encourage incentive spirometer use and mobilize patient as tolerated. Lastly, will obtain CTA chest to rule out PE. 2. History of coronary artery disease status post PCI/valvular heart disease status post TAVR/sarcoidosis/hypothyroidism Complicates care, management, recovery and prognosis. Continue home medications as indicated. This note was generated with [employer] dictation software. It may contain incorrect words, spelling, and punctuation that were not noted in checking the note before signing. Subjective Subjective The patient was seen and examined at the bedside this morning. Events from the last 24 hours have been reviewed. The patient is currently afebrile, hemodynamically stable and maintaining appropriate oxygen saturations on BiPAP. The patient was previously on 6 L/min, but apparently desaturated and became more short of breath when using the bedside commode. She is currently documented to be overall net +1.9 L for the hospitalization. She remains on broad-spectrum antimicrobials and steroids. White blood cell count is elevated at 19,000. Chemistry profile was within normal limits. Objective Data Objective Data The patient's most recent lab work, culture data and imaging studies have all been personally reviewed. COVID, influenza and RSV PCR's were negative. Vital Signs: Vital Signs Temp Pulse Resp BP Pulse Ox O2 Del Method O2 Flow Rate 98 F 91 33 H 162/55 H 95 Bi-pap 15 09/13/24 03:16 09/13/24 08:05 09/13/24 08:05 09/13/24 03:16 09/13/24 08:20 09/13/24 08:20 09/13/24 08:15 FiO2 80 09/13/24 08:20 Oxygen Flow Rate (L/min) 15 Oxygen Delivery Method Bi-pap Weight: 157 lb 13.616 oz Body Mass Index (BMI) 28.8 Intake & Output: Intake and Output for Last 24 Hours 09/11/24 09/12/24 09/13/24 23:59 23:59 23:59 Intake Total 1215 / 1215 1583.75 / 1583.75 350 / 350 Output Total 1200 / 1200 400 / 400 800 / 800 Balance 1183.75 / 1183.75 -450 / -450 Lab / Micro Data Attestation: I reviewed the patient's lab results. 09/13/24 06:03 09/13/24 06:03 Labs: Laboratory Results - last 24 hr 09/12/24 19:48: Vancomycin Trough 13.6 09/13/24 06:03: WBC 19.4 H, RBC 3.47 L, Hgb 10.4 L, Hct 31.2 L, MCV 89.9, MCH 30.0, MCHC 33.3, RDW Std Deviation 49.8 H, RDW Coeff of Martha 15.3 H, Plt Count 325, MPV 10.2, Immature Gran % (Auto) 4.600 H, Neut % (Auto) 73.1 H, Lymph % (Auto) 16.9 L, [place] % (Auto) 3.9, Eos % (Auto) 1.2, Baso % (Auto) 0.3, Absolute Neuts (auto) 14.2 H, Absolute Lymphs (auto) 3.28, Nucleated RBC % 0.4, Atypical Lymphocytes 1+, Sodium 137, Potassium 4.2, Chloride 103, Carbon Dioxide 24.1, Anion Gap 10, BUN 26 H, Creatinine 0.72, Estim Creat Clear Calc 46.78 L, Est GFR (MDRD) Non-Af 81, BUN/Creatinine Ratio 35.4 H, Glucose 167 H, Calcium 8.5 Micro: Microbiology 09/06/24 14:25 Blood Culture (Wb) - Anticubital Left Blood Culture - Final No growth in 5 days. 09/06/24 14:20 Blood Culture (Wb) - Anticubital Right Blood Culture - Final No growth in 5 days. 09/06/24 15:37 Urine Catheter - [place] Urine Culture - Final Klebsiella pneumoniae sp pneum 09/06/24 23:50 Mucosa - Nasopharyngeal Respiratory Panel (PCR) - Final 09/06/24 20:40 Urine Catheter - [place] Streptococcus pneumoniae Antigen (M - Final 09/06/24 20:40 Urine Catheter - [place] Legionella Antigen - Final 09/06/24 14:33 Mucosa - Nose SARS-CoV-2, Influenza & RSV (PCR) - Final Radiography Diagnostic Testing: Radiology Impression Chest X-Ray 09/08/24 13:50 IMPRESSION: Extensive bilateral airspace disease is again seen, with noticeable Interval Worsening since the prior study of 09/06/2024. Questionable small left pleural effusion. No pneumothorax is noted. The cardiomediastinal silhouette is probably unchanged. Aortic stent unchanged in position. No acute osseous process is noted. Reading Location: [address] Physical Exam Const alert and oriented x3 Constitutional Narrative: Sitting upright in bed with BiPAP in place. General Appearance: cooperative HEENT normocephalic, head/scalp atraumatic and moist oral mucous membranes Eyes EOMs intact bilaterally, conjunctivae normal and no scleral icterus Neck supple General: trachea midline Chest inspection of chest normal Resp no use of accessory muscles Effort and Inspection: able to speak in complete sentences and tachypneic Auscultation: diminished lung sounds Cardio regular rate and regular rhythm Heart Sounds: murmur GI normal to inspection, nondistended, normoactive bowel sounds Extremity no clubbing, cyanosis or edema Skin no rashes or lesions noted Neuro CN's II-XII intact bilaterally, moves all extremities and no focal motor deficits Psych Mood & Affect: anxious Charges/Coding Visit Charges Inpatient E&M: 74032 Subs Hosp L3
--- NOTE | 2024-09-13 09:54 | CT_ITS ---
PROCEDURE: CTA CHEST W/WO CONTRAST 09/13/2024 REASON FOR EXAM: HYPOXEMIA TECHNIQUE: CTA axial imaging of the chest with intravenous contrast. Coronal and Sagittal reconstruction series were provided. 3D, 3D post processing, 3D reconstructions, Maximum intensity projection (MIPs) Volume rendering and Shaded surface rendering was provided. One or more dose reduction techniques were used (e.g., Automated exposure control, adjustment of the mA and/or kV according to patient size, use of iterative reconstruction technique). CONTRAST: Isovue 370 VOLUME: 92mL RADIATION DOSE SUMMARY: CTDlvol: 7.5 mGy DLP: 267.63 mGycm COMPARISON: Comparison is also made with prior CT scan of the chest dated June 26, 2023. Comparison is made with prior chest radiographs done earlier in the same day. FINDINGS: Hardware: EKG electrodes are seen. Lymph nodes: Small benign-appearing mediastinal and right axillary lymph nodes. Heart: Coronary artery calcification. Prior aortic valve replacement. Thoracic Aorta: No thoracic aortic aneurysm or dissection. Atherosclerotic plaque formation. Pulmonary Vessels: No evidence of acute pulmonary emboli through the major subsegmental branches. Most Proximal Level of Embolus (if embolus present): Lungs and Airways: Diffuse bilateral airspace disease superimposed on chronic interstitial fibrosis with bronchiectasis. Radiographic follow-up recommended. Pleura: Tiny left pleural effusion. Upper Abdomen: Status post cholecystectomy. Bones: Bone windows are unremarkable. CT/CTA Chest W/WO Contrast IMPRESSION: Diffuse bilateral airspace disease involving both lungs upper and lower lobes s uperimposed on chronic scarring and bronchiectasis. Radiographic follow-up recommended. No evidence of pulmonary embolism. Reading Location: [place] [id number]
--- NOTE | 2024-09-13 10:45 | PCM.PN.HOSP ---
Reason for Visit Reason for Visit: Diagnoses Pneumonia, unspecified organism (09/06/24) Subjective Subjective Patient is an 88-year-old lady who was admitted with progressive shortness of breath and assessment of sepsis, acute hypoxic respiratory failure secondary to community-acquired pneumonia made admitted to monitored bed with treatment of underlying condition. Patient was also found to have acute cystitis on admission Objective Data Objective Data Vital Signs: Vital Signs Temp Pulse Resp BP Pulse Ox O2 Del Method O2 Flow Rate 98 F 91 33 H 162/55 H 95 Bi-pap 15 09/13/24 03:16 09/13/24 08:05 09/13/24 08:05 09/13/24 03:16 09/13/24 08:20 09/13/24 08:20 09/13/24 08:15 FiO2 80 09/13/24 08:20 Oxygen Flow Rate (L/min) 15 Oxygen Delivery Method Bi-pap Weight: 71.6 kg Body Mass Index (BMI) 28.8 Intake & Output: Intake and Output for Last 24 Hours 09/11/24 09/12/24 09/13/24 23:59 23:59 23:59 Intake Total 1215 / 1215 1583.75 / 1583.75 400 / 400 Output Total 1200 / 1200 400 / 400 800 / 800 Balance 1183.75 / 1183.75 -400 / -400 Lab / Micro Data 09/13/24 06:03 09/13/24 06:03 Labs: Laboratory Results - last 24 hr 09/12/24 19:48: Vancomycin Trough 13.6 09/13/24 06:03: WBC 19.4 H, RBC 3.47 L, Hgb 10.4 L, Hct 31.2 L, MCV 89.9, MCH 30.0, MCHC 33.3, RDW Std Deviation 49.8 H, RDW Coeff of Martha 15.3 H, Plt Count 325, MPV 10.2, Immature Gran % (Auto) 4.600 H, Neut % (Auto) 73.1 H, Lymph % (Auto) 16.9 L, [place] % (Auto) 3.9, Eos % (Auto) 1.2, Baso % (Auto) 0.3, Absolute Neuts (auto) 14.2 H, Absolute Lymphs (auto) 3.28, Nucleated RBC % 0.4, Atypical Lymphocytes 1+, Sodium 137, Potassium 4.2, Chloride 103, Carbon Dioxide 24.1, Anion Gap 10, BUN 26 H, Creatinine 0.72, Estim Creat Clear Calc 46.78 L, Est GFR (MDRD) Non-Af 81, BUN/Creatinine Ratio 35.4 H, Glucose 167 H, Calcium 8.5 Micro: Microbiology 09/06/24 14:25 Blood Culture (Wb) - Anticubital Left Blood Culture - Final No growth in 5 days. 09/06/24 14:20 Blood Culture (Wb) - Anticubital Right Blood Culture - Final No growth in 5 days. 09/06/24 15:37 Urine Catheter - [place] Urine Culture - Final Klebsiella pneumoniae sp pneum 09/06/24 23:50 Mucosa - Nasopharyngeal Respiratory Panel (PCR) - Final 09/06/24 20:40 Urine Catheter - [place] Streptococcus pneumoniae Antigen (M - Final 09/06/24 20:40 Urine Catheter - [place] Legionella Antigen - Final 09/06/24 14:33 Mucosa - Nose SARS-CoV-2, Influenza & RSV (PCR) - Final Physical Exam Narrative GENERAL: cooperative HEENT: Atraumatic; normocephalic, coating on her tongue consistent with oral thrush EYES; Anicteric, Normal Conjunctiva NECK; supple, normal thyroid, RESPIRATORY: Diminished to auscultation CARDIOVASCULAR: Regular S1 S2, GI: soft, normoactive bowel sounds, : No Renal angle tenderness; EXTREMITIES: No edema, no clubbing, MUSCULOSKELETAL: no muscle wasting NEURO: Awake; no lateralizing signs. SKIN: No Rash PSYCH; Flat affect Assessment & Plan Assessment/Plan (1) Pneumonia: PLAN: Plan Patient is an 88-year-old lady who was admitted with progressive shortness of breath and assessment of sepsis, acute hypoxic respiratory failure secondary to community-acquired pneumonia made admitted to monitored bed with treatment of underlying condition. Patient was also found to have acute cystitis on admission 1. Sepsis ? Due to combination of community-acquired pneumonia as well as acute cystitis admitted to a monitored bed treatment initiated per protocol 2. Acute hypoxic respiratory failure ? Secondary to community-acquired pneumonia as well as acute on chronic congestive heart failure with preserved ejection fraction. Patient has been managed on noninvasive ventilation Airvo. Consult placed to pulmonary medicine notes and recommendations reviewed. 3. Pneumonia - Suspected to be secondary to gram-positive and gram-negative organism, Blood and sputum cultures sent. Patient placed broad-spectrum antibiotic therapy with Zosyn as well as vancomycin also placed on oxygen via Airvo titrated to keep Pulse Ox greater than 90 4. Acute cystitis ? Urine cultures came back positive for Klebsiella patient has been managed appropriately 5. Acute on chronic congestive heart failure with preserved ejection fraction ? 2D echo obtained on 08/13/2024 demonstrated EF of 70%. Patient has been managed with strict input and output, daily weight, low-sodium diet, fluid restriction as well as diuretic therapy with furosemide. 6. Coronary artery disease ? With history of multiple stenting, patient remains on guideline directed medical therapy 7. Hypothyroidism ? Patient is on levothyroxine home dose continued 8. Hypertension ? Blood pressure controlled, home medications continued with dose adjustment as needed 9. 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 ? Resolved 12. Anemia ? Secondary to chronic disorder monitoring H&H and transfuse if patient becomes symptomatic or hemoglobin falls below 7 13. Oral candidiasis ? Patient started on nystatin swish and swallow 14. DVT prophylaxis ? On enoxaparin Time spent in the patient's overall evaluation,decision-making process, review of diagnostic data, adjustment of management, discussion with other providers, nursing nursing and ancillary staff involved in patient's care documentation, 52 Minutes Charges/Coding Visit Charges Inpatient E&M: 32603 [facility] L3
[2024-09-13] MEDS: Magnesium Chloride 64 MG Delay Rel.Tablet 128 MG PO (10:49)
[2024-09-13] MEDS: Metoprolol(XL)Succ 25 MG Tablet 12.5 MG PO ×2 (10:49→21:59)
[2024-09-13] MEDS: Aspirin 81 MG TAB.CHEW PO (10:49)
[2024-09-13] MEDS: Atorvastatin Calcium 40 MG Tablet PO (10:50)
[2024-09-13] MEDS: Clopidogrel Bisulfate 75 MG Tablet PO (10:51)
[2024-09-13] MEDS: Furosemide 40 MG/4 ML Vial IV ×2 (10:51→18:17)
[2024-09-13] MEDS: 0.9% Saline Lock 10 ML Syringe IV ×2 (10:51→18:18)
[2024-09-13] MEDS: guaiFENesin 1,200 MG Tablet 1200 MG PO ×2 (10:51→21:59)
[2024-09-13] MEDS: predniSONE 20 MG Tablet 40 MG PO (10:53)
[2024-09-13] MEDS: DiphenhydrAMINE 25 MG Capsule PO (10:53)
[2024-09-13] MEDS: Famotidine 20 MG Tablet 40 MG PO (10:53)
[2024-09-13] MEDS: Isosorbide Mononitrate 30 MG Tablet PO ×2 (13:09→21:59)
[2024-09-13] MEDS: Losartan Potassium 50 MG Tablet PO (13:10)
[2024-09-13] MEDS: amLODIPine 10 MG Tablet PO (13:10)
[2024-09-13] MEDS: NYSTATIN 500,000 UNIT/5 ML UDC 500000 UNIT PO ×3 (14:22→22:00)
[2024-09-13] MEDS: Vancomycin HCl 1,500 MG in 0.9% Normal Saline (500mL Bag) 500 ML 250 MG IV (20:01)
[2024-09-14] VITALS (22 sets, daily range): BP systolic 147–159; BP diastolic 54–75; PULSE 68–86; RESP 18–20; TEMP 36.4–36.6; O2SAT 81–98; BMI 28.5
[2024-09-14] MEDS: Levothyroxine 88 MCG Tablet PO (05:49)
[2024-09-14] MEDS: Enoxaparin 40 MG/0.4 ML Syringe SC (05:50)
[2024-09-14] MEDS: Piperacil/Tazobactam 3.375 GM in 0.9% Normal Saline (50mL MB+) 50 ML IV ×3 (05:50→22:26)
[2024-09-14 06:20] LABS: Absolute Lymphocyte Count 2.51 X10^3/uL (0.83-4.51); Basophil# 0.08 X10^3/uL; Basophil% 0.4 % (0-1); Eosinophil# 0.19 X10^3/uL; Eosinophils% 1.1 % (0-5); Hematocrit 31.8 % (37-47); Hemoglobin 10.7 g/dL (12.0-15.0); Lymphocyte # 2.51 X10^3/ul (0.83-4.51); Mean Corp Hgb Conc 33.6 g/dL (32-36); Mean Corpuscular Hgb 30.3 pg (27.0-32.0); Mean Corpuscular Volume 90.1 fL (81-99); Mean Platelet Vol. 10.6 fl (6.2-12.0); Monocyte# 0.52 X10^3/uL; Monocyte% 2.9 % (0-10); NRBC Flagged by Analyzer 0.3 % (0-5); Platelet Count 295 K/mm3 (150-450); RBC Distribution Width CV 15.6 % (11.6-14.6); RBC Distribution Width SD 50.2 fl (35.1-43.9); Red Blood Count 3.53 M/mm3 (4.2-5.4); White Blood Count 17.9 K/mm3 (4.4-11.0)
[2024-09-14 06:41] LABS: Anion Gap 12 (5-15); BUN 37 mg/dL (4-19); BUN/Creat Ratio 35.5 RATIO (10-20); Calcium,Total 8.5 mg/dL (7.6-11.0); Carbon Dioxide 26.9 mmol/L (21.0-32.0); Chloride 98 mmol/L (98-108); Creatinine, Serum 1.03 mg/dL (0.70-1.20); EST Glomerular Filtration Rate 53 (>60); Estimated Creatinine Clearance 36.11 ml/min (50-250); Glucose 213 mg/dL (70-99); Magnesium 2.2 mg/dL (1.5-2.2); Phosphorus 3.8 mg/dL (2.7-4.5); Potassium 4.4 mmol/L (3.3-5.1); Sodium Level 137 mmol/L (133-145)
[2024-09-14] MEDS: Ipratropium/Albuterol Sulfate 3 ML AMPUL.NEB INHALATION ×3 (07:19→19:55)
--- NOTE | 2024-09-14 08:02 | PN.HOSP_ITS ---
Reason for Visit Reason for Visit: Diagnoses Pneumonia, unspecified organism (09/06/24) Subjective Subjective Patient has been weaned down to high flow oxygen currently on 5 L flow per minute and saturating 96% Objective Data Objective Data Vital Signs: Vital Signs Temp Pulse Resp BP Pulse Ox O2 Del Method O2 Flow Rate 97.9 F 68 18 159/75 H 96 High Flow 5 09/14/24 03:30 09/14/24 03:30 09/14/24 03:30 09/14/24 03:30 09/14/24 03:35 09/14/24 03:35 09/14/24 03:35 FiO2 61 09/13/24 10:44 Oxygen Flow Rate (L/min) 5 Oxygen Delivery Method High Flow Weight: 70.7 kg Body Mass Index (BMI) 28.5 Intake & Output: Intake and Output for Last 24 Hours 09/12/24 09/13/24 09/14/24 23:59 23:59 23:59 Intake Total 1583.75 / 1583.75 1680 / 1680 110 / 110 Output Total 400 / 400 3050 / 3050 Balance 1183.75 / 1183.75 -1370 / -1370 110 / 110 Lab / Micro Data 09/14/24 05:39 09/14/24 05:39 Labs: Laboratory Results - last 24 hr 09/13/24 06:03: Atypical Lymphocytes 1+ 09/14/24 05:39: WBC 17.9 H, RBC 3.53 L, Hgb 10.7 L, Hct 31.8 L, MCV 90.1, MCH 30.3, MCHC 33.6, RDW Std Deviation 50.2 H, RDW Coeff of Martha 15.6 H, Plt Count 295, MPV 10.6, Immature Gran % (Auto) 3.600 H, Neut % (Auto) 78.0 H, Lymph % (Auto) 14.0 L, [place] % (Auto) 2.9, Eos % (Auto) 1.1, Baso % (Auto) 0.4, Absolute Neuts (auto) 14.0 H, Absolute Lymphs (auto) 2.51, Nucleated RBC % 0.3, Sodium 137, Potassium 4.4, Chloride 98, Carbon Dioxide 26.9, Anion Gap 12, BUN 37 H, Creatinine 1.03, Estim Creat Clear Calc 36.11 L, Est GFR (MDRD) Non-Af 53 L, B UN/Creatinine Ratio 35.5 H, Glucose 213 H, Calcium 8.5, Phosphorus 3.8, Magnesium 2.2 Micro: Microbiology 09/06/24 14:25 Blood Culture (Wb) - Anticubital Left Blood Culture - Final No growth in 5 days. 09/06/24 14:20 Blood Culture (Wb) - Anticubital Right Blood Culture - Final No growth in 5 days. 09/06/24 15:37 Urine Catheter - [place] Urine Culture - Final Klebsiella pneumoniae sp pneum 09/06/24 23:50 Mucosa - Nasopharyngeal Respiratory Panel (PCR) - Final 09/06/24 20:40 Urine Catheter - [place] Streptococcus pneumoniae Antigen (M - Final 09/06/24 20:40 Urine Catheter - [place] Legionella Antigen - Final 09/06/24 14:33 Mucosa - Nose SARS-CoV-2, Influenza & RSV (PCR) - Final Radiography Diagnostic Testing: Radiology Impression Chest CTA 09/13/24 09:54 IMPRESSION: Diffuse bilateral airspace disease involving both lungs upper and lower lobes superimposed on chronic scarring and bronchiectasis. Radiographic follow-up recommended. No evidence of pulmonary embolism. Reading Location: [place] [address] Physical Exam Narrative GENERAL: cooperative HEENT: Atraumatic; normocephalic, coating on her tongue consistent with oral thrush EYES; Anicteric, Normal Conjunctiva NECK; supple, normal thyroid, RESPIRATORY: Diminished to auscultation CARDIOVASCULAR: Regular S1 S2, GI: soft, normoactive bowel sounds, : No Renal angle tenderness; EXTREMITIES: No edema, no clubbing, MUSCULOSKELETAL: no muscle wasting NEURO: Awake; no lateralizing signs. SKIN: No Rash PSYCH; Flat affect Assessment & Plan Assessment/Plan (1) Pneumonia: PLAN: Plan Patient is an 88-year-old lady who was admitted with progressive shortness of breath and assessment of sepsis, acute hypoxic respiratory failure secondary to community-acquired pneumonia made admitted to monitored bed with treatment of underlying condition. Patient was also found to have acute cystitis on admission 1. Sepsis ? Due to combination of community-acquired pneumonia as well as acute cystitis admitted to a monitored bed treatment initiated per protocol ? 09/14/2024; patient WBC count still remains elevated 2. Acute hypoxic respiratory failure ? Secondary to community-acquired pneumonia as well as acute on chronic congestive heart failure with preserved ejection fraction. Patient has been managed on noninvasive ventilation Airvo. Consult placed to pulmonary medicine notes and recommendations reviewed. 09/14/2024; CTA obtained the day prior did show Diffuse bilateral airspace disease involving both lungs upper and lower lobes superimposed on chronic scarring and bronchiectasis. No evidence of pulmonary embolism.. Patient has currently been weaned down to high flow oxygen and is currently on 5 L flow per minute 3. Pneumonia - Suspected to be secondary to gram-positive and gram-negative organism, Blood and sputum cultures sent. Patient placed broad-spectrum antibiotic therapy with Zosyn as well as vancomycin also placed on oxygen via Airvo titrated to keep Pulse Ox greater than 90 4. Acute cystitis ? Urine cultures came back positive for Klebsiella patient has been managed appropriately 5. Acute on chronic congestive heart failure with preserved ejection fraction ? 2D echo obtained on 08/13/2024 demonstrated EF of 70%. Patient has been managed with strict input and output, daily weight, low-sodium diet, fluid restriction as well as diuretic therapy with furosemide. 6. Coronary artery disease ? With history of multiple stenting, patient remains on guideline directed medical therapy 7. Hypothyroidism ? Patient is on levothyroxine home dose continued 8. Hypertension ? Blood pressure controlled, home medications continued with dose adjustment as needed 9. 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 ? Resolved 12. Anemia ? Secondary to chronic disorder monitoring H&H and transfuse if patient becomes symptomatic or hemoglobin falls below 7 13. Oral candidiasis ? Patient started on nystatin swish and swallow 14. DVT prophylaxis ? On enoxaparin Time spent in the patient's overall evaluation,decision-making process, review of diagnostic data, adjustment of management, discussion with other providers, nursing nursing and ancillary staff involved in patient's care documentation, 50 Minutes Charges/Coding Visit Charges Inpatient E&M: 44009 [facility]osp L3
--- NOTE | 2024-09-14 10:08 | PN.CC_ITS ---
Assessment & Plan Assessment/Plan (1) Pneumonia: PLAN: Plan RECOMMENDATIONS: 1. Continue supplemental oxygen to maintain saturations at or above 90%. 2. Continue broad-spectrum antimicrobials to complete at least 7 days of therapy. 3. Continue scheduled corticosteroids. 4. Continue intermittent use of diuretics to maintain euvolemic state. 5. PAP therapy with naps and nightly. IMPRESSIONS: 1. Acute hypoxemic respiratory failure Clinical concern for underlying heart failure with preserved ejection fraction versus pneumonia. She does have a remote history of sarcoidosis, which was apparently in remission for the last several years. The patient's respiratory status still remains quite tenuous, nevertheless. Accordingly, she will be continued on broad-spectrum antimicrobials along with corticosteroids. I would recommend the ongoing utilization of diuretics to maintain euvolemic state. Encourage incentive spirometer use and mobilize patient as tolerated. 2. History of coronary artery disease status post PCI/valvular heart disease status post TAVR/sarcoidosis/hypothyroidism Complicates care, management, recovery and prognosis. Continue home medications as indicated. This note was generated with [employer] dictation software. It may contain incorrect words, spelling, and punctuation that were not noted in checking the note before signing. Subjective Subjective The patient was seen and examined at the bedside this morning. Events from the last 24 hours have been reviewed. The patient is currently afebrile, hemodynamically stable and maintaining appropriate oxygen saturations on 5 L/min via nasal cannula. The patient is currently documented to be overall net +1 L for the hospitalization. White blood cell count is stable at 18,000. Creatinine is within normal limits. Objective Data Objective Data The patient's most recent lab work, culture data and imaging studies have all been personally reviewed. COVID, influenza and RSV PCR's were negative. Vital Signs: Vital Signs Temp Pulse Resp BP Pulse Ox O2 Del Method O2 Flow Rate 97.5 F L 74 20 H 152/59 H 88 High Flow 5 09/14/24 08:32 09/14/24 08:32 09/14/24 08:32 09/14/24 08:32 09/14/24 09:07 09/14/24 09:07 09/14/24 09:07 FiO2 61 09/13/24 10:44 Oxygen Flow Rate (L/min) 5 Oxygen Delivery Method High Flow Weight: 155 lb 13.869 oz Body Mass Index (BMI) 28.5 Intake & Output: Intake and Output for Last 24 Hours 09/12/24 09/13/24 09/14/24 23:59 23:59 23:59 Intake Total 1583.75 / 1583.75 1680 / 1680 110 / 110 Output Total 400 / 400 3050 / 3050 Balance 1183.75 / 1183.75 -1370 / -1370 110 / 110 Lab / Micro Data Attestation: I reviewed the patient's lab results. 09/14/24 05:39 09/14/24 05:39 Labs: Laboratory Results - last 24 hr 09/14/24 05:39: WBC 17.9 H, RBC 3.53 L, Hgb 10.7 L, Hct 31.8 L, MCV 90.1, MCH 30.3, MCHC 33.6, RDW Std Deviation 50.2 H, RDW Coeff of Martha 15.6 H, Plt Count 295, MPV 10.6, Immature Gran % (Auto) 3.600 H, Neut % (Auto) 78.0 H, Lymph % (Auto) 14.0 L, [place] % (Auto) 2.9, Eos % (Auto) 1.1, Baso % (Auto) 0.4, Absolute Neuts (auto) 14.0 H, Absolute Lymphs (auto) 2.51, Nucleated RBC % 0.3, Sodium 137, Potassium 4.4, Chloride 98, Carbon Dioxide 26.9, Anion Gap 12, BUN 37 H, Creatinine 1.03, Estim Creat Clear Calc 36.11 L, Est GFR (MDRD) Non-Af 53 L, B UN/Creatinine Ratio 35.5 H, Glucose 213 H, Calcium 8.5, Phosphorus 3.8, Magnesium 2.2 Micro: Microbiology 09/06/24 14:25 Blood Culture (Wb) - Anticubital Left Blood Culture - Final No growth in 5 days. 09/06/24 14:20 Blood Culture (Wb) - Anticubital Right Blood Culture - Final No growth in 5 days. 09/06/24 15:37 Urine Catheter - [place] Urine Culture - Final Klebsiella pneumoniae sp pneum 09/06/24 23:50 Mucosa - Nasopharyngeal Respiratory Panel (PCR) - Final 09/06/24 20:40 Urine Catheter - [place] Streptococcus pneumoniae Antigen (M - Final 09/06/24 20:40 Urine Catheter - [place] Legionella Antigen - Final 09/06/24 14:33 Mucosa - Nose SARS-CoV-2, Influenza & RSV (PCR) - Final Radiography Diagnostic Testing: Radiology Impression Chest CTA 09/13/24 09:54 IMPRESSION: Diffuse bilateral airspace disease involving both lungs upper and lower lobes superimposed on chronic scarring and bronchiectasis. Radiographic follow-up recommended. No evidence of pulmonary embolism. Reading Location: [facility] Physical Exam Const alert, oriented x3 and no apparent distress Constitutional Narrative: Sitting in bedside recliner. General Appearance: cooperative HEENT normocephalic, head/scalp atraumatic and moist oral mucous membranes Eyes EOMs intact bilaterally, conjunctivae normal and no scleral icterus Neck supple General: trachea midline Chest inspection of chest normal Resp no use of accessory muscles Effort and Inspection: able to speak in complete sentences Auscultation: rales and diminished lung sounds Cardio regular rate and regular rhythm Heart Sounds: murmur GI normal to inspection, nondistended, normoactive bowel sounds Extremity no clubbing, cyanosis or edema Skin no rashes or lesions noted Neuro CN's II-XII intact bilaterally, moves all extremities and no focal motor deficits Psych Mood & Affect: flat affect Charges/Coding Visit Charges Inpatient E&M: 34826 [facility] Hosp L2
[2024-09-14] MEDS: Aspirin 81 MG TAB.CHEW PO (11:06)
[2024-09-14] MEDS: predniSONE 20 MG Tablet 40 MG PO (11:06)
[2024-09-14] MEDS: Losartan Potassium 50 MG Tablet PO (11:07)
[2024-09-14] MEDS: Magnesium Chloride 64 MG Delay Rel.Tablet 128 MG PO (11:08)
[2024-09-14] MEDS: Atorvastatin Calcium 40 MG Tablet PO (11:08)
[2024-09-14] MEDS: Isosorbide Mononitrate 30 MG Tablet PO ×2 (11:08→22:24)
[2024-09-14] MEDS: NYSTATIN 500,000 UNIT/5 ML UDC 500000 UNIT PO ×4 (11:09→22:23)
[2024-09-14] MEDS: guaiFENesin 1,200 MG Tablet 1200 MG PO ×2 (11:09→22:24)
[2024-09-14] MEDS: amLODIPine 10 MG Tablet PO (11:09)
[2024-09-14] MEDS: Clopidogrel Bisulfate 75 MG Tablet PO (11:10)
[2024-09-14] MEDS: Metoprolol(XL)Succ 25 MG Tablet 12.5 MG PO ×2 (11:10→22:23)
--- NOTE | 2024-09-14 11:31 | CASEMGMT ---
SW was informed that patient is interested in going somewhere for short term rehab. Patient is not medically ready yet. However, SW met with patient and her . Introduced self and role at [facility]. Patient confirmed she is interested in rehab. SW provided patient with a list of [facility] facility providers including quality and resource use data and consistent with patient?s preferred geographic region, medical needs, and insurance network were provided from the [employer]. SW explained that she and her will need to review the list and roxanna their top 3-4 preferences. SW will then take care of contacting the facilities to see if they are able to accept patient. SW explained Medicare coverage for SNF. SW to continue to follow. Tracy [employer] ???
[2024-09-14 22:07] LABS: Vancomycin, Trough Level 14.1 ug/mL (5.0-15.0)
--- NOTE | 2024-09-14 22:15 | PCM.RX.CS ---
Consult Antibiotic Management Pharmacy has been consulted to manage selected antibiotic: Vancomycin Type of Intervention Type of Consult: Follow-up Suspected Infection Suspected Infection: Sepsis Labs Labs: Sodium 137 mmol/L (133-145) 09/14/24 05:39 Potassium 4.4 mmol/L (3.3-5.1) 09/14/24 05:39 Chloride 98 mmol/L (98-108) 09/14/24 05:39 Carbon Dioxide 26.9 mmol/L (21.0-32.0) 09/14/24 05:39 Anion Gap 12 (5-15) 09/14/24 05:39 BUN 37 mg/dL (4-19) H 09/14/24 05:39 Creatinine 1.03 mg/dL (0.70-1.20) 09/14/24 05:39 Est GFR (MDRD) Non-Af 53 (>60) L 09/14/24 05:39 BUN/Creatinine Ratio 35.5 RATIO (10-20) H 09/14/24 05:39 Glucose 213 mg/dL (70-99) H 09/14/24 05:39 Vancomycin Trough 14.1 ug/mL (5.0-15.0) 09/14/24 20:20 Microbiology Microbiology: Microbiology 09/06/24 14:25 Blood Culture (Wb) - Anticubital Left Blood Culture - Final No growth in 5 days. 09/06/24 14:20 Blood Culture (Wb) - Anticubital Right Blood Culture - Final No growth in 5 days. 09/06/24 15:37 Urine Catheter - [place] Urine Culture - Final Klebsiella pneumoniae sp pneum 09/06/24 23:50 Mucosa - Nasopharyngeal Respiratory Panel (PCR) - Final 09/06/24 20:40 Urine Catheter - [place] Streptococcus pneumoniae Antigen (M - Final 09/06/24 20:40 Urine Catheter - [place] Legionella Antigen - Final 09/06/24 14:33 Mucosa - Nose SARS-CoV-2, Influenza & RSV (PCR) - Final Estimated Creatinine Clearance Estimated Creatinine Clearance: 36.1 Goal Trough Goal Trough: 15-20 mcg/mL Pharmacy Plan for Drug Dosing Pharmacy Plan for Drug Dosing: VANCOMYCIN LEVEL RECEIVED Current Vancomycin Dose: 1500mg Q24H Number of Doses Received: 1500mg x2 since adjustment Vancomycin Level: 14.1 Hours Since Last Dose: 24.25 Renal Function: sCr 1.03 Renal Function Trend: sCr elevated today compared to admission Lab/Micro: pending Vancomycin Plan/Comments: Continue Vancomycin 1500mg Q24H with dose this evening. Closely monitor renal function changes. Pending Level: Vancomycin trough @ 22:00 09/16/24 Pharmacy Service will continue to monitor and adjust dosing as required. Follow-Up Labs Follow-Up Labs: Trough: Vancomycin (09/16/24 @ 22:00)
[2024-09-14] MEDS: Vancomycin HCl 1,500 MG in 0.9% Normal Saline (500mL Bag) 500 ML 250 MG IV (22:51)
[2024-09-15] VITALS (21 sets, daily range): BP systolic 135–160; BP diastolic 47–71; PULSE 66–97; RESP 12–28; TEMP 36.4–36.7; O2SAT 82–98; BMI 28.5
[2024-09-15] MEDS: Levothyroxine 88 MCG Tablet PO (04:22)
[2024-09-15] MEDS: Enoxaparin 40 MG/0.4 ML Syringe SC (04:23)
[2024-09-15] MEDS: Piperacil/Tazobactam 3.375 GM in 0.9% Normal Saline (50mL MB+) 50 ML IV ×3 (05:33→21:45)
[2024-09-15 06:20] LABS: Absolute Lymphocyte Count 1.74 X10^3/uL (0.83-4.51); Absolute Neutrophil Count 13.2 X10^3/uL (2.0-7.7); Basophil# 0.03 X10^3/uL; Basophil% 0.2 % (0-1); Eosinophil# 0.07 X10^3/uL; Eosinophils% 0.4 % (0-5); Hematocrit 29.4 % (37-47); Lymphocyte # 1.74 X10^3/ul (0.83-4.51); Lymphocyte % 10.9 % (19-41); Mean Corpuscular Hgb 30.8 pg (27.0-32.0); Mean Corpuscular Volume 90.5 fL (81-99); Mean Platelet Vol. 10.6 fl (6.2-12.0); Monocyte# 0.42 X10^3/uL; Monocyte% 2.6 % (0-10); NRBC Flagged by Analyzer 0 % (0-5); Neutrophil # 13.16 X10^3/uL (2.7-7.7); Neutrophil % 82.7 % (47-70); Platelet Count 287 K/mm3 (150-450); RBC Distribution Width CV 15.1 % (11.6-14.6); RBC Distribution Width SD 48.8 fl (35.1-43.9); Red Blood Count 3.25 M/mm3 (4.2-5.4); White Blood Count 15.9 K/mm3 (4.4-11.0)
[2024-09-15 06:46] LABS: Anion Gap 8 (5-15); BUN 32 mg/dL (4-19); BUN/Creat Ratio 39.9 RATIO (10-20); Calcium,Total 8.3 mg/dL (7.6-11.0); Carbon Dioxide 26.5 mmol/L (21.0-32.0); Chloride 102 mmol/L (98-108); Creatinine, Serum 0.81 mg/dL (0.70-1.20); EST Glomerular Filtration Rate 71 (>60); Estimated Creatinine Clearance 45.95 ml/min (50-250); Glucose 209 mg/dL (70-99); Potassium 4.5 mmol/L (3.3-5.1); Sodium Level 136 mmol/L (133-145)
[2024-09-15] MEDS: Ipratropium/Albuterol Sulfate 3 ML AMPUL.NEB INHALATION ×3 (07:04→19:24)
--- NOTE | 2024-09-15 09:04 | PCM.PN.INT ---
Assessment & Plan Assessment/Plan (1) Pneumonia: PLAN: Plan RECOMMENDATIONS: 1. Continue supplemental oxygen to maintain saturations at or above 90%. 2. Continue broad-spectrum antimicrobials to complete at least 7 days of therapy. 3. Continue scheduled corticosteroids. 4. Continue intermittent use of diuretics to maintain euvolemic state. Will redose today. 5. PAP therapy with naps and nightly. IMPRESSIONS: 1. Acute hypoxemic respiratory failure Multifactorial in etiology with heart failure with preserved ejection fraction and multifocal pneumonia contributing. She does have a remote history of sarcoidosis, which was apparently in remission for the last several years. The patient's respiratory status still remains quite tenuous, nevertheless, particularly with exertion. CTA chest ruled out pulmonary embolism, but did confirm extensive bilateral infiltrates. The patient will be continued on broad-spectrum antimicrobials to complete a minimum of 7 days of therapy, along with IV corticosteroids. In addition, we will plan to continue intermittent use of diuretics to maintain euvolemic state. Encourage incentive spirometer use and mobilize patient as tolerated. 2. History of coronary artery disease status post PCI/valvular heart disease status post TAVR/sarcoidosis/hypothyroidism Complicates care, management, recovery and prognosis. Continue home medications as indicated. This note was generated with [employer] dictation software. It may contain incorrect words, spelling, and punctuation that were not noted in checking the note before signing. Subjective Subjective The patient was seen and examined at the bedside this morning. Events from the last 24 hours have been reviewed. The patient is currently afebrile, hemodynamically stable and maintaining appropriate oxygen saturations on 5 L/min via nasal cannula. The patient is currently documented to be overall net +1.6 L for the hospitalization. White blood cell count is elevated at 16,000. Creatinine is within normal limits. The patient continues to gradually desaturate with physical exertion, particularly when working with physical therapy. Objective Data Objective Data The patient's most recent lab work, culture data and imaging studies have all been personally reviewed. COVID, influenza and RSV PCR's were negative. Vital Signs: Vital Signs Temp Pulse Resp BP Pulse Ox O2 Del Method O2 Flow Rate 97.5 F L 68 20 H 160/70 H 94 Nasal Cannula 5 09/15/24 04:26 09/15/24 07:06 09/15/24 07:06 09/15/24 04:26 09/15/24 07:06 09/15/24 07:06 09/15/24 07:06 FiO2 61 09/13/24 10:44 Oxygen Flow Rate (L/min) 5 Oxygen Delivery Method Nasal Cannula Weight: 156 lb 1.396 oz Body Mass Index (BMI) 28.5 Intake & Output: Intake and Output for Last 24 Hours 09/13/24 09/14/24 09/15/24 23:59 23:59 23:59 Intake Total 1680 / 1680 1034.58 / 1034.58 575.42 / 575.42 Output Total 3050 / 3050 650 / 650 400 / 400 Balance -1370 / -1370 384.58 / 384.58 175.42 / 175.42 Lab / Micro Data Attestation: I reviewed the patient's lab results. 09/15/24 05:48 09/15/24 05:48 Labs: Laboratory Results - last 24 hr 09/14/24 20:20: Vancomycin Trough 14.1 09/15/24 05:48: WBC 15.9 H, RBC 3.25 L, Hgb 10.0 L, Hct 29.4 L, MCV 90.5, MCH 30.8, MCHC 34.0, RDW Std Deviation 48.8 H, RDW Coeff of Martha 15.1 H, Plt Count 287, MPV 10.6, Immature Gran % (Auto) 3.200 H, Neut % (Auto) 82.7 H, Lymph % (Auto) 10.9 L, [place] % (Auto) 2.6, Eos % (Auto) 0.4, Baso % (Auto) 0.2, Absolute Neuts (auto) 13.2 H, Absolute Lymphs (auto) 1.74, Nucleated RBC % 0, Sodium 136, Potassium 4.5, Chloride 102, Carbon Dioxide 26.5, Anion Gap 8, BUN 32 H, Creatinine 0.81, Estim Creat Clear Calc 45.95 L, Est GFR (MDRD) Non-Af 71, BUN/Creatinine Ratio 39.9 H, Glucose 209 H, Calcium 8.3 Micro: Microbiology 09/06/24 14:25 Blood Culture (Wb) - Anticubital Left Blood Culture - Final No growth in 5 days. 09/06/24 14:20 Blood Culture (Wb) - Anticubital Right Blood Culture - Final No growth in 5 days. 09/06/24 15:37 Urine Catheter - [place] Urine Culture - Final Klebsiella pneumoniae sp pneum 09/06/24 23:50 Mucosa - Nasopharyngeal Respiratory Panel (PCR) - Final 09/06/24 20:40 Urine Catheter - [place] Streptococcus pneumoniae Antigen (M - Final 09/06/24 20:40 Urine Catheter - [place] Legionella Antigen - Final 09/06/24 14:33 Mucosa - Nose SARS-CoV-2, Influenza & RSV (PCR) - Final Radiography Diagnostic Testing: Radiology Impression Chest CTA 09/13/24 09:54 IMPRESSION: Diffuse bilateral airspace disease involving both lungs upper and lower lobes superimposed on chronic scarring and bronchiectasis. Radiographic follow-up recommended. No evidence of pulmonary embolism. Reading Location: [place] [id number] Physical Exam Const alert, oriented x3 and no apparent distress Constitutional Narrative: Sitting in bedside recliner. General Appearance: cooperative HEENT normocephalic, head/scalp atraumatic and moist oral mucous membranes Eyes EOMs intact bilaterally, conjunctivae normal and no scleral icterus Neck supple General: trachea midline Chest inspection of chest normal Resp no use of accessory muscles Effort and Inspection: able to speak in complete sentences Auscultation: rales and diminished lung sounds Cardio regular rate and regular rhythm Heart Sounds: murmur GI normal to inspection, nondistended, normoactive bowel sounds Extremity no clubbing, cyanosis or edema Skin no rashes or lesions noted Neuro CN's II-XII intact bilaterally, moves all extremities and no focal motor deficits Psych Mood & Affect: flat affect Charges/Coding Visit Charges Inpatient E&M: 44194 Subs Hosp L2
--- NOTE | 2024-09-15 10:18 | PN.HOSP_ITS ---
Reason for Visit Reason for Visit: Diagnoses Pneumonia, unspecified organism (09/06/24) Subjective Subjective Patient seen oxygen requirement down to 2 L flow per minute patient however remains significantly weak. Did discuss with patient and her about possibility of being discharged to senior living facility Objective Data Objective Data Vital Signs: Vital Signs Temp Pulse Resp BP Pulse Ox O2 Del Method O2 Flow Rate 97.9 F 69 17 146/47 H 92 Nasal Cannula 2 09/15/24 09:35 09/15/24 09:35 09/15/24 09:35 09/15/24 09:35 09/15/24 09:35 09/15/24 09:36 09/15/24 09:36 FiO2 61 09/13/24 10:44 Oxygen Flow Rate (L/min) 2 Oxygen Delivery Method Nasal Cannula Weight: 70.8 kg Body Mass Index (BMI) 28.5 Intake & Output: Intake and Output for Last 24 Hours 09/13/24 09/14/24 09/15/24 23:59 23:59 23:59 Intake Total 1680 / 1680 1034.58 / 1034.58 575.42 / 575.42 Output Total 3050 / 3050 650 / 650 400 / 400 Balance -1370 / -1370 384.58 / 384.58 175.42 / 175.42 Lab / Micro Data 09/15/24 05:48 09/15/24 05:48 Labs: Laboratory Results - last 24 hr 09/14/24 20:20: Vancomycin Trough 14.1 09/15/24 05:48: WBC 15.9 H, RBC 3.25 L, Hgb 10.0 L, Hct 29.4 L, MCV 90.5, MCH 30.8, MCHC 34.0, RDW Std Deviation 48.8 H, RDW Coeff of [place] 15.1 H, Plt Count 287, MPV 10.6, Immature Gran % (Auto) 3.200 H, Neut % (Auto) 82.7 H, Lymph % (Auto) 10.9 L, [place] % (Auto) 2.6, Eos % (Auto) 0.4, Baso % (Auto) 0.2, Absolute Neuts (auto) 13.2 H, Absolute Lymphs (auto) 1.74, Nucleated RBC % 0, Sodium 136, Potassium 4.5, Chloride 102, Carbon Dioxide 26.5, Anion Gap 8, BUN 32 H, Creatinine 0.81, Estim Creat Clear Calc 45.95 L, Est GFR (MDRD) Non-Af 71, B UN/Creatinine Ratio 39.9 H, Glucose 209 H, Calcium 8.3 Micro: Microbiology 09/06/24 14:25 Blood Culture (Wb) - Anticubital Left Blood Culture - Final No growth in 5 days. 09/06/24 14:20 Blood Culture (Wb) - Anticubital Right Blood Culture - Final No growth in 5 days. 09/06/24 15:37 Urine Catheter - [place] Urine Culture - Final Klebsiella pneumoniae sp pneum 09/06/24 23:50 Mucosa - Nasopharyngeal Respiratory Panel (PCR) - Final 09/06/24 20:40 Urine Catheter - [place] Streptococcus pneumoniae Antigen (M - Final 09/06/24 20:40 Urine Catheter - [place] Legionella Antigen - Final 09/06/24 14:33 Mucosa - Nose SARS-CoV-2, Influenza & RSV (PCR) - Final Physical Exam Narrative GENERAL: cooperative HEENT: Atraumatic; normocephalic, EYES; Anicteric, Normal Conjunctiva NECK; supple, normal thyroid, RESPIRATORY: Diminished to auscultation CARDIOVASCULAR: Regular S1 S2, GI: soft, normoactive bowel sounds, : No Renal angle tenderness; EXTREMITIES: No edema, no clubbing, MUSCULOSKELETAL: no muscle wasting NEURO: Awake; no lateralizing signs. SKIN: No Rash PSYCH; Flat affect Assessment & Plan Assessment/Plan (1) Pneumonia: PLAN: Plan Patient is an 88-year-old lady who was admitted with progressive shortness of breath and assessment of sepsis, acute hypoxic respiratory failure secondary to community-acquired pneumonia made admitted to monitored bed with treatment of underlying condition. Patient was also found to have acute cystitis on admission 1. Sepsis ? Due to combination of community-acquired pneumonia as well as acute cystitis admitted to a monitored bed treatment initiated per protocol ? 09/14/2024; patient WBC count still remains elevated -09/15/2024; WBC count down to 15.9 2. Acute hypoxic respiratory failure ? Secondary to community-acquired pneumonia as well as acute on chronic congestive heart failure with preserved ejection fraction. Patient has been managed on noninvasive ventilation Airvo. Consult placed to pulmonary medicine notes and recommendations reviewed. 09/14/2024; CTA obtained the day prior did show Diffuse bilateral airspace disease involving both lungs upper and lower lobes superimposed on chronic scarring and bronchiectasis. No evidence of pulmonary embolism.. Patient has currently been weaned down to high flow oxygen and is currently on 5 L flow per minute ? 09/15/2024; oxygen requirement down to 2 L flow per minute 3. Pneumonia - Suspected to be secondary to gram-positive and gram-negative organism, Blood and sputum cultures sent. Patient placed broad-spectrum antibiotic therapy with Zosyn as well as vancomycin also placed on oxygen via Airvo titrated to keep Pulse Ox greater than 90 4. Acute cystitis ? Urine cultures came back positive for Klebsiella patient has been managed appropriately 5. Acute on chronic congestive heart failure with preserved ejection fraction ? 2D echo obtained on 08/13/2024 demonstrated EF of 70%. Patient has been managed with strict input and output, daily weight, low-sodium diet, fluid restriction as well as diuretic therapy with furosemide. 6. Coronary artery disease ? With history of multiple stenting, patient remains on guideline directed medical therapy 7. Hypothyroidism ? Patient is on levothyroxine home dose continued 8. Hypertension ? Blood pressure controlled, home medications continued with dose adjustment as needed 9. 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 ? Resolved 12. Anemia ? Secondary to chronic disorder monitoring H&H and transfuse if patient becomes symptomatic or hemoglobin falls below 7 13. Oral candidiasis ? Patient started on nystatin swish and swallow 14. DVT prophylaxis ? On enoxaparin 15. Physical deconditioning ? Requested for PT OT eval and geriatric social work professor to assist with discharge planning Time spent in the patient's overall evaluation,decision-making process, review of diagnostic data, adjustment of management, discussion with other providers, nursing nursing and ancillary staff involved in patient's care documentation,38 Minutes Charges/Coding Visit Charges Inpatient E&M: 90447 Subs Hosp L2
--- NOTE | 2024-09-15 10:30 | CASEMGMT ---
Discharge Planning A list of?SNF providers including quality and resource use data and consistent with the patient's preferred geographic region, medical needs, and insurance network was created and emailed to pts daughter (Li) in [employer] Guide.? Pts first choice is TCU. Asked pt and her family to have 1 or 2 backups chosen. SW updated. Julia Richard, Discharge Planning Asst.
[2024-09-15] MEDS: Magnesium Chloride 64 MG Delay Rel.Tablet 128 MG PO (10:46)
[2024-09-15] MEDS: Losartan Potassium 50 MG Tablet PO (10:46)
[2024-09-15] MEDS: Isosorbide Mononitrate 30 MG Tablet PO ×2 (10:46→21:43)
[2024-09-15] MEDS: Aspirin 81 MG TAB.CHEW PO (10:46)
[2024-09-15] MEDS: Atorvastatin Calcium 40 MG Tablet PO (10:47)
[2024-09-15] MEDS: Clopidogrel Bisulfate 75 MG Tablet PO (10:47)
[2024-09-15] MEDS: Metoprolol(XL)Succ 25 MG Tablet 12.5 MG PO ×2 (10:47→21:44)
[2024-09-15] MEDS: NYSTATIN 500,000 UNIT/5 ML UDC 500000 UNIT PO ×4 (10:47→21:44)
[2024-09-15] MEDS: guaiFENesin 1,200 MG Tablet 1200 MG PO ×2 (10:47→21:43)
[2024-09-15] MEDS: amLODIPine 10 MG Tablet PO (10:47)
[2024-09-15] MEDS: Furosemide 40 MG/4 ML Vial IV (10:54)
--- NOTE | 2024-09-15 11:35 | CASEMGMT ---
Social Work SW spoke with Karma in TCU. TCU can accommodate up to 8L of oxygen. At this time pt requiring 15L O2 for recovery after working with therapy. SONIDO will send a referral to TCU when pt is medically ready. Physician notified. ADELAIDA Do
[2024-09-15] MEDS: Albuterol 2.5 MG/3 ML VIAL.NEB. INHALATION (12:03)
--- NOTE | 2024-09-15 13:03 | NURSING ---
Physical therapy got patient out of bed and up to chair, notified RN that her O2 had dropped to 84% and they bumped her oxygen to 15L. O2 came up to 94% in chair, RN was able to wean pt down to 8L. student support counselor and REBRANDER got patient out of chair to bedside commode and her O2 dropped again to 82%, RN bumped pt back up to 15L and O2 stayed around 86%. RN called respiratory about a PRN breathing treatment and switching her to airvo. Respiratory put patient on airvo 55%, 50L. O2 increased to 97%.
[2024-09-15] MEDS: Methylprednisolone Sod Succ 40 MG/ML VIAL IV ×2 (13:53→18:31)
[2024-09-15] MEDS: 0.9% Saline Lock 10 ML Syringe IV (21:46)
[2024-09-15] MEDS: Vancomycin HCl 1,500 MG in 0.9% Normal Saline (500mL Bag) 500 ML 250 MG IV (23:02)
[2024-09-16] VITALS (16 sets, daily range): BP systolic 145–154; BP diastolic 56–63; PULSE 56–90; RESP 15–22; TEMP 36.4–36.5; O2SAT 93–98; BMI 27.1
[2024-09-16] MEDS: Ipratropium/Albuterol Sulfate 3 ML AMPUL.NEB INHALATION ×4 (01:22→20:25)
[2024-09-16] MEDS: Methylprednisolone Sod Succ 40 MG/ML VIAL IV ×4 (01:54→18:34)
[2024-09-16] MEDS: 0.9% Saline Lock 10 ML Syringe IV ×3 (01:54→08:35)
[2024-09-16] MEDS: Enoxaparin 40 MG/0.4 ML Syringe SC (05:21)
[2024-09-16] MEDS: Piperacil/Tazobactam 3.375 GM in 0.9% Normal Saline (50mL MB+) 50 ML IV ×3 (05:21→22:00)
[2024-09-16] MEDS: Levothyroxine 88 MCG Tablet PO (05:21)
[2024-09-16 05:55] LABS: Absolute Lymphocyte Count 0.86 X10^3/uL (0.83-4.51); Basophil# 0.02 X10^3/uL; Basophil% 0.1 % (0-1); Hematocrit 31.7 % (37-47); Hemoglobin 10.4 g/dL (12.0-15.0); Lymphocyte # 0.86 X10^3/ul (0.83-4.51); Mean Corp Hgb Conc 32.8 g/dL (32-36); Mean Corpuscular Hgb 29.9 pg (27.0-32.0); Mean Corpuscular Volume 91.1 fL (81-99); Mean Platelet Vol. 10.6 fl (6.2-12.0); Monocyte# 0.16 X10^3/uL; Monocyte% 1.1 % (0-10); NRBC Flagged by Analyzer 0 % (0-5); Neutrophil # 13.04 X10^3/uL (2.7-7.7); Neutrophil % 90.5 % (47-70); Platelet Count 300 K/mm3 (150-450); RBC Distribution Width CV 15.5 % (11.6-14.6); Red Blood Count 3.48 M/mm3 (4.2-5.4); White Blood Count 14.4 K/mm3 (4.4-11.0)
[2024-09-16 06:41] LABS: Anion Gap 10 (5-15); BUN 35 mg/dL (4-19); BUN/Creat Ratio 38.4 RATIO (10-20); Calcium,Total 8.3 mg/dL (7.6-11.0); Carbon Dioxide 25.5 mmol/L (21.0-32.0); Chloride 101 mmol/L (98-108); Creatinine, Serum 0.91 mg/dL (0.70-1.20); EST Glomerular Filtration Rate 61 (>60); Estimated Creatinine Clearance 39.95 ml/min (50-250); Glucose 215 mg/dL (70-99); Potassium 4.9 mmol/L (3.3-5.1); Sodium Level 137 mmol/L (133-145)
[2024-09-16] MEDS: Furosemide 40 MG/4 ML Vial IV (08:35)
[2024-09-16] MEDS: Aspirin 81 MG TAB.CHEW PO (08:36)
--- NOTE | 2024-09-16 09:44 | PN.CC_ITS ---
Assessment & Plan Assessment/Plan (1) Pneumonia: PLAN: Plan RECOMMENDATIONS: 1. Continue supplemental oxygen to maintain saturations at or above 90%. 2. Continue broad-spectrum antimicrobials to complete at least 7 days of therapy. 3. Continue scheduled corticosteroids. 4. Continue intermittent use of diuretics to maintain euvolemic state. IV Lasix again ordered this morning. 5. PAP therapy with naps and nightly. IMPRESSIONS: 1. Acute hypoxemic respiratory failure Multifactorial in etiology with heart failure with preserved ejection fraction and multifocal pneumonia contributing. She does have a remote history of sarcoidosis, which was apparently in remission for the last several years. The patient's respiratory status still remains quite tenuous, nevertheless, particularly with exertion. CTA chest ruled out pulmonary embolism, but did confirm extensive bilateral infiltrates. The patient will be continued on broad-spectrum antimicrobials to complete a minimum of 7 days of therapy, along with IV corticosteroids. In addition, we will plan to continue intermittent use of diuretics to maintain euvolemic state. Encourage incentive spirometer use and mobilize patient as tolerated. 2. History of coronary artery disease status post PCI/valvular heart disease status post TAVR/sarcoidosis/hypothyroidism Complicates care, management, recovery and prognosis. Continue home medications as indicated. This note was generated with [employer] dictation software. It may contain incorrect words, spelling, and punctuation that were not noted in checking the note before signing. Subjective Subjective The patient was seen and examined at the bedside this morning. Events from the last 24 hours have been reviewed. The patient is currently afebrile, hemodynamically stable and maintaining appropriate oxygen saturations on 4 L/min via nasal cannula. The patient reported that she feels about the same from a respiratory perspective. She has not yet worked with physical therapy this morning. White blood cell count was noted to be 14,000. Creatinine is within normal limits. The patient is currently documented to be overall net +1.2 L for the hospitalization. Objective Data Objective Data The patient's most recent lab work, culture data and imaging studies have all been personally reviewed. COVID, influenza and RSV PCR's were negative. Vital Signs: Vital Signs Temp Pulse Resp BP Pulse Ox O2 Del Method O2 Flow Rate 97.7 F L 67 18 152/61 H 93 High Flow 4 09/16/24 04:12 09/16/24 07:55 09/16/24 07:55 09/16/24 04:12 09/16/24 07:55 09/16/24 07:19 09/16/24 07:19 FiO2 30 09/16/24 07:55 Oxygen Flow Rate (L/min) 4 Oxygen Delivery Method High Flow Weight: 148 lb 9.465 oz Body Mass Index (BMI) 27.1 Intake & Output: Intake and Output for Last 24 Hours 09/14/24 09/15/24 09/16/24 23:59 23:59 23:59 Intake Total 1034.58 / 1034.58 915.42 / 915.42 630 / 630 Output Total 650 / 650 1300 / 1300 400 / 400 Balance 384.58 / 384.58 -384.58 / -384.58 230 / 230 Lab / Micro Data Attestation: I reviewed the patient's lab results. 09/16/24 05:00 09/16/24 05:00 Labs: Laboratory Results - last 24 hr 09/16/24 05:00: WBC 14.4 H, RBC 3.48 L, Hgb 10.4 L, Hct 31.7 L, MCV 91.1, MCH 29.9, MCHC 32.8, RDW Std Deviation 50.0 H, RDW Coeff of Martha 15.5 H, Plt Count 300, MPV 10.6, Immature Gran % (Auto) 2.300 H, Neut % (Auto) 90.5 H, Lymph % (Auto) 6.0 L, [place] % (Auto) 1.1, Eos % (Auto) 0.0, Baso % (Auto) 0.1, Absolute Neuts (auto) 13.0 H, Absolute Lymphs (auto) 0.86, Nucleated RBC % 0, Sodium 137, Potassium 4.9, Chloride 101, Carbon Dioxide 25.5, Anion Gap 10, BUN 35 H, Creatinine 0.91, Estim Creat Clear Calc 39.95 L, Est GFR (MDRD) Non-Af 61, B UN/Creatinine Ratio 38.4 H, Glucose 215 H, Calcium 8.3 Micro: Microbiology 09/06/24 14:25 Blood Culture (Wb) - Anticubital Left Blood Culture - Final No growth in 5 days. 09/06/24 14:20 Blood Culture (Wb) - Anticubital Right Blood Culture - Final No growth in 5 days. 09/06/24 15:37 Urine Catheter - [place] Urine Culture - Final Klebsiella pneumoniae sp pneum 09/06/24 23:50 Mucosa - Nasopharyngeal Respiratory Panel (PCR) - Final 09/06/24 20:40 Urine Catheter - [place] Streptococcus pneumoniae Antigen (M - Final 09/06/24 20:40 Urine Catheter - [place] Legionella Antigen - Final 09/06/24 14:33 Mucosa - Nose SARS-CoV-2, Influenza & RSV (PCR) - Final Radiography Diagnostic Testing: Radiology Impression Chest CTA 09/13/24 09:54 IMPRESSION: Diffuse bilateral airspace disease involving both lungs upper and lower lobes superimposed on chronic scarring and bronchiectasis. Radiographic follow-up recommended. No evidence of pulmonary embolism. Reading Location: [facility] Physical Exam Const alert, oriented x3 and no apparent distress Constitutional Narrative: Sitting upright in bed, eating breakfast. General Appearance: cooperative HEENT normocephalic, head/scalp atraumatic and moist oral mucous membranes Eyes EOMs intact bilaterally, conjunctivae normal and no scleral icterus Neck supple General: trachea midline Chest inspection of chest normal Resp no use of accessory muscles Effort and Inspection: able to speak in complete sentences Auscultation: rales and diminished lung sounds Cardio regular rate and regular rhythm Heart Sounds: murmur GI normal to inspection, nondistended, normoactive bowel sounds Extremity no clubbing, cyanosis or edema Skin no rashes or lesions noted Neuro CN's II-XII intact bilaterally, moves all extremities and no focal motor deficits Psych Mood & Affect: flat affect Charges/Coding Visit Charges Inpatient E&M: 23041 Subs Hosp L2
[2024-09-16] MEDS: Atorvastatin Calcium 40 MG Tablet PO (09:50)
[2024-09-16] MEDS: Magnesium Chloride 64 MG Delay Rel.Tablet 128 MG PO (09:50)
[2024-09-16] MEDS: amLODIPine 10 MG Tablet PO (09:50)
[2024-09-16] MEDS: guaiFENesin 1,200 MG Tablet 1200 MG PO ×2 (09:50→22:02)
[2024-09-16] MEDS: Clopidogrel Bisulfate 75 MG Tablet PO (09:50)
[2024-09-16] MEDS: Isosorbide Mononitrate 30 MG Tablet PO ×2 (09:50→22:02)
[2024-09-16] MEDS: NYSTATIN 500,000 UNIT/5 ML UDC 500000 UNIT PO ×4 (09:50→22:02)
[2024-09-16] MEDS: Losartan Potassium 50 MG Tablet PO (09:50)
[2024-09-16] MEDS: Metoprolol(XL)Succ 25 MG Tablet 12.5 MG PO ×2 (09:51→22:00)
--- NOTE | 2024-09-16 15:22 | CASEMGMT ---
Social Work SW met with pt and pt's dgt to discuss discharge plan. Pt's dgt states she has spoke with pt's and are agreeable to SNF at discharge. Preferences are 1. TCU 2. [facility] 3. [facility]. SW also spoke with pt and dgt regarding possible option of LTACH. SW explained difference between SNF and LTACH. A list of LTACH providers including quality and resource use data and consistent with the patient?s preferred geographic region, medical needs, and insurance network were provided from the [employer] Guide. Pt's dgt is concerned about LTACH as they are too far away for pt's to drive to. Pt is not ready for dc at this time. RNCM updated to conversation. SW/RNCM will continue to follow for dc planning. ADELAIDA Do
--- NOTE | 2024-09-16 23:08 | PCM.RX.CS ---
Consult Antibiotic Management Pharmacy has been consulted to manage selected antibiotic: Vancomycin Type of Intervention Type of Consult: Follow-up Labs Labs: Sodium 137 mmol/L (133-145) 09/16/24 05:00 Potassium 4.9 mmol/L (3.3-5.1) 09/16/24 05:00 Chloride 101 mmol/L (98-108) 09/16/24 05:00 Carbon Dioxide 25.5 mmol/L (21.0-32.0) 09/16/24 05:00 Anion Gap 10 (5-15) 09/16/24 05:00 BUN 35 mg/dL (4-19) H 09/16/24 05:00 Creatinine 0.91 mg/dL (0.70-1.20) 09/16/24 05:00 Est GFR (MDRD) Non-Af 61 (>60) 09/16/24 05:00 BUN/Creatinine Ratio 38.4 RATIO (10-20) H 09/16/24 05:00 Glucose 215 mg/dL (70-99) H 09/16/24 05:00 Vancomycin Trough 19.0 ug/mL (5.0-15.0) H 09/16/24 22:21 Microbiology Microbiology: Microbiology 09/06/24 14:25 Blood Culture (Wb) - Anticubital Left Blood Culture - Final No growth in 5 days. 09/06/24 14:20 Blood Culture (Wb) - Anticubital Right Blood Culture - Final No growth in 5 days. 09/06/24 15:37 Urine Catheter - [place] Urine Culture - Final Klebsiella pneumoniae sp pneum 09/06/24 23:50 Mucosa - Nasopharyngeal Respiratory Panel (PCR) - Final 09/06/24 20:40 Urine Catheter - [place] Streptococcus pneumoniae Antigen (M - Final 09/06/24 20:40 Urine Catheter - [place] Legionella Antigen - Final 09/06/24 14:33 Mucosa - Nose SARS-CoV-2, Influenza & RSV (PCR) - Final Goal Trough Goal Trough: 15-20 mcg/mL Pharmacy Plan for Drug Dosing Pharmacy Plan for Drug Dosing: Pharmacy Service will continue to monitor and adjust dosing as required. TROUGH 19.0 @ 23.5 HOURS. CONTINUE CURRENT DOSE AND FOLLOW UP TROUGH IN 2 DAYS Follow-Up Labs Follow-Up Labs: Trough: Vancomycin Date/Time Labs Ordered Labs to be done on [date and time ordered]: 09/18 @ 2200
[2024-09-17] VITALS (14 sets, daily range): BP systolic 138–144; BP diastolic 47–72; PULSE 56–73; RESP 16–22; TEMP 36.7–36.9; O2SAT 85–97; BMI 26.6
[2024-09-17] MEDS: Vancomycin HCl 1,500 MG in 0.9% Normal Saline (500mL Bag) 500 ML 250 MG IV ×2 (00:04→22:20)
[2024-09-17] MEDS: Vancomycin Trough/Random Due 1 LAB MC (00:04)
[2024-09-17] MEDS: Methylprednisolone Sod Succ 40 MG/ML VIAL IV ×5 (00:07→23:57)
[2024-09-17] MEDS: 0.9% Saline Lock 10 ML Syringe IV ×5 (00:07→23:57)
[2024-09-17] MEDS: Enoxaparin 40 MG/0.4 ML Syringe SC (05:15)
[2024-09-17] MEDS: Levothyroxine 88 MCG Tablet PO (05:15)
[2024-09-17] MEDS: Piperacil/Tazobactam 3.375 GM in 0.9% Normal Saline (50mL MB+) 50 ML IV ×3 (05:17→21:06)
[2024-09-17 05:58] LABS: Absolute Lymphocyte Count 0.85 X10^3/uL (0.83-4.51); Absolute Neutrophil Count 13.6 X10^3/uL (2.0-7.7); Basophil# 0.01 X10^3/uL; Basophil% 0.1 % (0-1); Hemoglobin 10.1 g/dL (12.0-15.0); Lymphocyte # 0.85 X10^3/ul (0.83-4.51); Lymphocyte % 5.6 % (19-41); Mean Corp Hgb Conc 32.6 g/dL (32-36); Mean Corpuscular Hgb 29.5 pg (27.0-32.0); Mean Corpuscular Volume 90.6 fL (81-99); Mean Platelet Vol. 10.5 fl (6.2-12.0); Monocyte# 0.38 X10^3/uL; Monocyte% 2.5 % (0-10); NRBC Flagged by Analyzer 0 % (0-5); Neutrophil # 13.57 X10^3/uL (2.7-7.7); Neutrophil % 89.7 % (47-70); Platelet Count 313 K/mm3 (150-450); RBC Distribution Width CV 15.6 % (11.6-14.6); RBC Distribution Width SD 49.9 fl (35.1-43.9); Red Blood Count 3.42 M/mm3 (4.2-5.4); White Blood Count 15.1 K/mm3 (4.4-11.0)
[2024-09-17 06:43] LABS: Anion Gap 10 (5-15); BUN 45 mg/dL (4-19); BUN/Creat Ratio 47.1 RATIO (10-20); Calcium,Total 8.2 mg/dL (7.6-11.0); Carbon Dioxide 23.8 mmol/L (21.0-32.0); Chloride 102 mmol/L (98-108); Creatinine, Serum 0.95 mg/dL (0.70-1.20); EST Glomerular Filtration Rate 59 (>60); Estimated Creatinine Clearance 37.94 ml/min (50-250); Glucose 287 mg/dL (70-99); Potassium 4.5 mmol/L (3.3-5.1); Sodium Level 136 mmol/L (133-145)
[2024-09-17] MEDS: Ipratropium/Albuterol Sulfate 3 ML AMPUL.NEB INHALATION ×2 (07:08→12:31)
[2024-09-17] MEDS: Aspirin 81 MG TAB.CHEW PO (09:04)
[2024-09-17] MEDS: Losartan Potassium 50 MG Tablet PO (09:04)
[2024-09-17] MEDS: Magnesium Chloride 64 MG Delay Rel.Tablet 128 MG PO (09:04)
[2024-09-17] MEDS: Isosorbide Mononitrate 30 MG Tablet PO ×2 (09:05→21:05)
[2024-09-17] MEDS: NYSTATIN 500,000 UNIT/5 ML UDC 500000 UNIT PO ×4 (09:05→21:05)
[2024-09-17] MEDS: Metoprolol(XL)Succ 25 MG Tablet 12.5 MG PO ×2 (09:05→21:06)
[2024-09-17] MEDS: Clopidogrel Bisulfate 75 MG Tablet PO (09:05)
[2024-09-17] MEDS: guaiFENesin 1,200 MG Tablet 1200 MG PO ×2 (09:05→21:05)
[2024-09-17] MEDS: Furosemide 40 MG/4 ML Vial IV ×2 (09:06→17:06)
[2024-09-17] MEDS: amLODIPine 10 MG Tablet PO (09:06)
[2024-09-17] MEDS: Atorvastatin Calcium 40 MG Tablet PO (09:06)
--- NOTE | 2024-09-17 09:22 | PCM.PN.HOSP ---
Reason for Visit Reason for Visit: Diagnoses Pneumonia, unspecified organism (09/06/24) Subjective Subjective Patient seen hypoxia and leukocytosis persist. Objective Data Objective Data Vital Signs: Vital Signs Temp Pulse Resp BP Pulse Ox O2 Del Method O2 Flow Rate 98.0 F 73 16 144/59 H 97 High Flow 5 09/17/24 07:50 09/17/24 09:05 09/17/24 07:50 09/17/24 09:05 09/17/24 07:50 09/17/24 08:11 09/17/24 08:11 FiO2 30 09/16/24 07:55 Oxygen Flow Rate (L/min) 5 Oxygen Delivery Method High Flow Weight: 66.2 kg Body Mass Index (BMI) 26.6 Intake & Output: Intake and Output for Last 24 Hours 09/15/24 09/16/24 09/17/24 23:59 23:59 23:59 Intake Total 915.42 / 915.42 680 / 680 580 / 580 Output Total 1300 / 1300 1000 / 1000 Balance -384.58 / -384.58 -320 / -320 580 / 580 Lab / Micro Data 09/17/24 05:14 09/17/24 05:14 Labs: Laboratory Results - last 24 hr 09/16/24 22:21: Vancomycin Trough 19.0 H 09/17/24 05:14: WBC 15.1 H, RBC 3.42 L, Hgb 10.1 L, Hct 31.0 L, MCV 90.6, MCH 29.5, MCHC 32.6, RDW Std Deviation 49.9 H, RDW Coeff of Martha 15.6 H, Plt Count 313, MPV 10.5, Immature Gran % (Auto) 2.100 H, Neut % (Auto) 89.7 H, Lymph % (Auto) 5.6 L, [place] % (Auto) 2.5, Eos % (Auto) 0.0, Baso % (Auto) 0.1, Absolute Neuts (auto) 13.6 H, Absolute Lymphs (auto) 0.85, Nucleated RBC % 0, Sodium 136, Potassium 4.5, Chloride 102, Carbon Dioxide 23.8, Anion Gap 10, BUN 45 H, Creatinine 0.95, Estim Creat Clear Calc 37.94 L, Est GFR (MDRD) Non-Af 59 L, BUN/Creatinine Ratio 47.1 H, Glucose 287 H, Calcium 8.2 Micro: Microbiology 09/06/24 14:25 Blood Culture (Wb) - Anticubital Left Blood Culture - Final No growth in 5 days. 09/06/24 14:20 Blood Culture (Wb) - Anticubital Right Blood Culture - Final No growth in 5 days. 09/06/24 15:37 Urine Catheter - [place] Urine Culture - Final Klebsiella pneumoniae sp pneum 09/06/24 23:50 Mucosa - Nasopharyngeal Respiratory Panel (PCR) - Final 09/06/24 20:40 Urine Catheter - [place] Streptococcus pneumoniae Antigen (M - Final 09/06/24 20:40 Urine Catheter - [place] Legionella Antigen - Final 09/06/24 14:33 Mucosa - Nose SARS-CoV-2, Influenza & RSV (PCR) - Final Physical Exam Narrative GENERAL: cooperative HEENT: Atraumatic; normocephalic, EYES; Anicteric, Normal Conjunctiva NECK; supple, normal thyroid, RESPIRATORY: Diminished to auscultation CARDIOVASCULAR: Regular S1 S2, GI: soft, normoactive bowel sounds, : No Renal angle tenderness; EXTREMITIES: No edema, no clubbing, MUSCULOSKELETAL: no muscle wasting NEURO: Awake; no lateralizing signs. SKIN: No Rash PSYCH; Flat affect Assessment & Plan Assessment/Plan (1) Pneumonia: PLAN: Plan Patient is an 88-year-old lady who was admitted with progressive shortness of breath and assessment of sepsis, acute hypoxic respiratory failure secondary to community-acquired pneumonia made admitted to monitored bed with treatment of underlying condition. Patient was also found to have acute cystitis on admission 1. Sepsis ? Due to combination of community-acquired pneumonia as well as acute cystitis admitted to a monitored bed treatment initiated per protocol ? 09/14/2024; patient WBC count still remains elevated -09/15/2024; WBC count down to 15.9 ? 09/17/2024; patient leukocytosis persist remains on broad-spectrum antibiotic to 2. Acute hypoxic respiratory failure ? Secondary to community-acquired pneumonia as well as acute on chronic congestive heart failure with preserved ejection fraction. Patient has been managed on noninvasive ventilation Airvo. Consult placed to pulmonary medicine notes and recommendations reviewed. 09/14/2024; CTA obtained the day prior did show Diffuse bilateral airspace disease involving both lungs upper and lower lobes superimposed on chronic scarring and bronchiectasis. No evidence of pulmonary embolism.. Patient has currently been weaned down to high flow oxygen and is currently on 5 L flow per minute ? 09/15/2024; oxygen requirement down to 2 L flow per minute ? 09/17/2024; patient still remains hypoxic did place an order for home oxygen assessment to aid in making decision regarding disposition 3. Pneumonia - Suspected to be secondary to gram-positive and gram-negative organism, Blood and sputum cultures sent. Patient placed broad-spectrum antibiotic therapy with Zosyn as well as vancomycin also placed on oxygen via Airvo titrated to keep Pulse Ox greater than 90 4. Acute cystitis ? Urine cultures came back positive for Klebsiella patient has been managed appropriately 5. Acute on chronic congestive heart failure with preserved ejection fraction ? 2D echo obtained on 08/13/2024 demonstrated EF of 70%. Patient has been managed with strict input and output, daily weight, low-sodium diet, fluid restriction as well as diuretic therapy with furosemide. 6. Coronary artery disease ? With history of multiple stenting, patient remains on guideline directed medical therapy 7. Hypothyroidism ? Patient is on levothyroxine home dose continued 8. Hypertension ? Blood pressure controlled, home medications continued with dose adjustment as needed 9. 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 ? Resolved 12. Anemia ? Secondary to chronic disorder monitoring H&H and transfuse if patient becomes symptomatic or hemoglobin falls below 7 13. Oral candidiasis ? Patient started on nystatin swish and swallow 14. DVT prophylaxis ? On enoxaparin 15. Physical deconditioning ? Requested for PT OT eval and licensed master social worker to assist with discharge planning Time spent in the patient's overall evaluation,decision-making process, review of diagnostic data, adjustment of management, discussion with other providers, nursing nursing and ancillary staff involved in patient's care documentation,38 Minutes Charges/Coding Visit Charges Inpatient E&M: 11446 Subs Hosp L2
--- NOTE | 2024-09-17 09:38 | PCM.PN.INT ---
Assessment & Plan Assessment/Plan (1) Pneumonia: PLAN: Plan RECOMMENDATIONS: 1. Continue supplemental oxygen to maintain saturations at or above 90%. 2. Continue broad-spectrum antimicrobials to complete at least 7 days of therapy. 3. Continue scheduled corticosteroids. 4. Continue intermittent use of diuretics to maintain euvolemic state. 5. PAP therapy with naps and nightly. IMPRESSIONS: 1. Acute hypoxemic respiratory failure Multifactorial in etiology with heart failure with preserved ejection fraction and multifocal pneumonia contributing. She does have a remote history of sarcoidosis, which was apparently in remission for the last several years. The patient's respiratory status still remains quite tenuous, nevertheless, particularly with exertion. CTA chest ruled out pulmonary embolism, but did confirm extensive bilateral infiltrates. The patient will be continued on broad-spectrum antimicrobials to complete a minimum of 7 days of therapy, along with IV corticosteroids. In addition, we will plan to continue intermittent use of diuretics to maintain euvolemic state. Encourage incentive spirometer use and mobilize patient as tolerated. 2. History of coronary artery disease status post PCI/valvular heart disease status post TAVR/sarcoidosis/hypothyroidism Complicates care, management, recovery and prognosis. Continue home medications as indicated. This note was generated with [employer] dictation software. It may contain incorrect words, spelling, and punctuation that were not noted in checking the note before signing. Subjective Subjective The patient was seen and examined at the bedside this morning. Events from the last 24 hours have been reviewed. The patient is currently afebrile, hemodynamically stable and maintaining appropriate oxygen saturations on 2 L/min via nasal cannula. The patient is documented to be overall net +1.3 L for the hospitalization. She continues to tolerate attempts at diuresis. White blood cell count remains stable at 15,000 with a hemoglobin of 10 g/dL. Creatinine is within normal limits. Objective Data Objective Data The patient's most recent lab work, culture data and imaging studies have all been personally reviewed. COVID, influenza and RSV PCR's were negative. Vital Signs: Vital Signs Temp Pulse Resp BP Pulse Ox O2 Del Method O2 Flow Rate 98.0 F 73 16 144/59 H 97 High Flow 5 09/17/24 07:50 09/17/24 09:05 09/17/24 07:50 09/17/24 09:05 09/17/24 07:50 09/17/24 08:11 09/17/24 08:11 FiO2 30 09/16/24 07:55 Oxygen Flow Rate (L/min) 5 Oxygen Delivery Method High Flow Weight: 145 lb 15.136 oz Body Mass Index (BMI) 26.6 Intake & Output: Intake and Output for Last 24 Hours 09/15/24 09/16/24 09/17/24 23:59 23:59 23:59 Intake Total 915.42 / 915.42 680 / 680 580 / 580 Output Total 1300 / 1300 1000 / 1000 Balance -384.58 / -384.58 -320 / -320 580 / 580 Lab / Micro Data Attestation: I reviewed the patient's lab results. 09/17/24 05:14 09/17/24 05:14 Labs: Laboratory Results - last 24 hr 09/16/24 22:21: Vancomycin Trough 19.0 H 09/17/24 05:14: WBC 15.1 H, RBC 3.42 L, Hgb 10.1 L, Hct 31.0 L, MCV 90.6, MCH 29.5, MCHC 32.6, RDW Std Deviation 49.9 H, RDW Coeff of Martha 15.6 H, Plt Count 313, MPV 10.5, Immature Gran % (Auto) 2.100 H, Neut % (Auto) 89.7 H, Lymph % (Auto) 5.6 L, [place] % (Auto) 2.5, Eos % (Auto) 0.0, Baso % (Auto) 0.1, Absolute Neuts (auto) 13.6 H, Absolute Lymphs (auto) 0.85, Nucleated RBC % 0, Sodium 136, Potassium 4.5, Chloride 102, Carbon Dioxide 23.8, Anion Gap 10, BUN 45 H, Creatinine 0.95, Estim Creat Clear Calc 37.94 L, Est GFR (MDRD) Non-Af 59 L, BUN/Creatinine Ratio 47.1 H, Glucose 287 H, Calcium 8.2 Micro: Microbiology 09/06/24 14:25 Blood Culture (Wb) - Anticubital Left Blood Culture - Final No growth in 5 days. 09/06/24 14:20 Blood Culture (Wb) - Anticubital Right Blood Culture - Final No growth in 5 days. 09/06/24 15:37 Urine Catheter - [place] Urine Culture - Final Klebsiella pneumoniae sp pneum 09/06/24 23:50 Mucosa - Nasopharyngeal Respiratory Panel (PCR) - Final 09/06/24 20:40 Urine Catheter - [place] Streptococcus pneumoniae Antigen (M - Final 09/06/24 20:40 Urine Catheter - [place] Legionella Antigen - Final 09/06/24 14:33 Mucosa - Nose SARS-CoV-2, Influenza & RSV (PCR) - Final Radiography Diagnostic Testing: Radiology Impression Chest CTA 09/13/24 09:54 IMPRESSION: Diffuse bilateral airspace disease involving both lungs upper and lower lobes superimposed on chronic scarring and bronchiectasis. Radiographic follow-up recommended. No evidence of pulmonary embolism. Reading Location: [facility] Physical Exam Const alert, oriented x3 and no apparent distress Constitutional Narrative: Sitting upright in bed. General Appearance: cooperative HEENT normocephalic, head/scalp atraumatic and moist oral mucous membranes Eyes EOMs intact bilaterally, conjunctivae normal and no scleral icterus Neck supple General: trachea midline Chest inspection of chest normal Resp normal respiratory effort and no use of accessory muscles Effort and Inspection: able to speak in complete sentences Auscultation: diminished lung sounds; Negative for rales, rhonchi or wheezes Cardio regular rate and regular rhythm Heart Sounds: murmur GI normal to inspection, nondistended, normoactive bowel sounds Extremity no clubbing, cyanosis or edema Skin no rashes or lesions noted Neuro CN's II-XII intact bilaterally, moves all extremities and no focal motor deficits Psych Mood & Affect: flat affect Charges/Coding Visit Charges Inpatient E&M: 06549 Subs Hosp L2
--- NOTE | 2024-09-17 09:57 | NURSING ---
Pt with therapy, pt started out on 2L oxygen stating 95% pt then moved to the edge of the bed dropped to 92% on the 2L. Pt then stood and pivoted to the chair with therapy once sitting in the chair patients oxygen levels dropped to 85% oxygen increased to 5L and pt was slow to recover oxygen levels but did get up to 95%. Therapy then walked pt to the end of bed and sat patient on bedside commode. pt was 95% with respers in the mid 20's when she sat down on bedside commode. this Nurse in room. pt slowly destated to 85% oxygen remained at 5L pt instructed to take deep breaths and patient slowly recovered back up to 92% on the 5L. Pt then placed in chair by therapy and once stats were stable decreased oxygen back down to 2L. pt resting comfortably. Pt states that she feels week and tired but not as short of breath as she has been.
--- NOTE | 2024-09-17 11:59 | CASEMGMT ---
SW made a referral to [facility] in [facility]. Await response. Tracy Sifuentes EXERCISE EQUIPMENT SPECIALIST REYES
[2024-09-18] VITALS (15 sets, daily range): BP systolic 148–160; BP diastolic 49–62; PULSE 55–71; RESP 16–18; TEMP 36.4–36.8; O2SAT 86–98; BMI 26.2
[2024-09-18] MEDS: Piperacil/Tazobactam 3.375 GM in 0.9% Normal Saline (50mL MB+) 50 ML IV ×3 (05:30→21:27)
[2024-09-18] MEDS: Levothyroxine 88 MCG Tablet PO (05:30)
[2024-09-18] MEDS: Enoxaparin 40 MG/0.4 ML Syringe SC (05:31)
[2024-09-18] MEDS: 0.9% Saline Lock 10 ML Syringe IV ×2 (05:31→21:29)
[2024-09-18] MEDS: Methylprednisolone Sod Succ 40 MG/ML VIAL IV ×3 (05:31→21:27)
[2024-09-18 06:57] LABS: Mean Corpuscular Volume 90.7 fL (81-99); NRBC Flagged by Analyzer 0 % (0-5)
[2024-09-18 07:07] LABS: Anion Gap 10 (5-15); BUN 47 mg/dL (4-19); BUN/Creat Ratio 44.5 RATIO (10-20); Calcium,Total 8.3 mg/dL (7.6-11.0); Carbon Dioxide 25.7 mmol/L (21.0-32.0); Chloride 102 mmol/L (98-108); Creatinine, Serum 1.06 mg/dL (0.70-1.20); EST Glomerular Filtration Rate 51 (>60); Estimated Creatinine Clearance 33.72 ml/min (50-250); Glucose 252 mg/dL (70-99); Potassium 4.4 mmol/L (3.3-5.1); Sodium Level 138 mmol/L (133-145)
[2024-09-18 07:16] LABS: Differential Indicated SCAN CRITERIA MET
--- NOTE | 2024-09-18 07:53 | PCM.PN.HOSP ---
Reason for Visit Reason for Visit: Diagnoses Pneumonia, unspecified organism (09/06/24) Subjective Subjective Patient seen remains on supplemental oxygen has a significantly flat affect. Objective Data Objective Data Vital Signs: Vital Signs Temp Pulse Resp BP Pulse Ox O2 Del Method O2 Flow Rate 98.2 F 63 16 159/58 H 94 High Flow 2 09/18/24 03:27 09/18/24 03:27 09/18/24 03:27 09/18/24 03:27 09/18/24 03:27 09/18/24 03:45 09/18/24 03:45 FiO2 30 09/16/24 07:55 Oxygen Flow Rate (L/min) 2 Oxygen Delivery Method High Flow Weight: 65 kg Body Mass Index (BMI) 26.2 Intake & Output: Intake and Output for Last 24 Hours 09/16/24 09/17/24 09/18/24 23:59 23:59 23:59 Intake Total 680 / 680 1640 / 1640 580 / 580 Output Total 1000 / 1000 550 / 550 Balance -320 / -320 1090 / 1090 580 / 580 Lab / Micro Data 09/18/24 05:15 09/18/24 05:15 Labs: Laboratory Results - last 24 hr 09/18/24 05:15: WBC 5.0, RBC 6.80 H, Hgb 20.8 H*, Hct 61.7 H, MCV 90.7, MCH 30.6, MCHC 33.7, RDW Std Deviation 51.1 H, RDW Coeff of Martha 17.5 H, Plt Count 93 L, MPV 10.2, Immature Gran % (Auto) 1.000 H, Neut % (Auto) 88.8 H, Lymph % (Auto) 7.0 L, [place] % (Auto) 2.8, Eos % (Auto) 0.0, Baso % (Auto) 0.4, Absolute Neuts (auto) 4.4, Absolute Lymphs (auto) 0.35 L, Nucleated RBC % 0, Sodium 138, Potassium 4.4, Chloride 102, Carbon Dioxide 25.7, Anion Gap 10, BUN 47 H, Creatinine 1.06, Estim Creat Clear Calc 33.72 L, Est GFR (MDRD) Non-Af 51 L, BUN/Creatinine Ratio 44.5 H, Glucose 252 H, Calcium 8.3 Micro: Microbiology 09/06/24 14:25 Blood Culture (Wb) - Anticubital Left Blood Culture - Final No growth in 5 days. 09/06/24 14:20 Blood Culture (Wb) - Anticubital Right Blood Culture - Final No growth in 5 days. 09/06/24 15:37 Urine Catheter - [place] Urine Culture - Final Klebsiella pneumoniae sp pneum 09/06/24 23:50 Mucosa - Nasopharyngeal Respiratory Panel (PCR) - Final 09/06/24 20:40 Urine Catheter - [place] Streptococcus pneumoniae Antigen (M - Final 09/06/24 20:40 Urine Catheter - [place] Legionella Antigen - Final 09/06/24 14:33 Mucosa - Nose SARS-CoV-2, Influenza & RSV (PCR) - Final Physical Exam Narrative GENERAL: cooperative HEENT: Atraumatic; normocephalic, EYES; Anicteric, Normal Conjunctiva NECK; supple, normal thyroid, RESPIRATORY: Diminished to auscultation CARDIOVASCULAR: Regular S1 S2, GI: soft, normoactive bowel sounds, : No Renal angle tenderness; EXTREMITIES: No edema, no clubbing, MUSCULOSKELETAL: no muscle wasting NEURO: Awake; no lateralizing signs. SKIN: No Rash PSYCH; Flat affect Assessment & Plan Assessment/Plan (1) Pneumonia: PLAN: Plan Patient is an 88-year-old lady who was admitted with progressive shortness of breath and assessment of sepsis, acute hypoxic respiratory failure secondary to community-acquired pneumonia made admitted to monitored bed with treatment of underlying condition. Patient was also found to have acute cystitis on admission 1. Sepsis ? Due to combination of community-acquired pneumonia as well as acute cystitis admitted to a monitored bed treatment initiated per protocol ? 09/14/2024; patient WBC count still remains elevated -09/15/2024; WBC count down to 15.9 ? 09/17/2024; patient leukocytosis persist remains on broad-spectrum antibiotic ? 09/18/2024; patient WBC count trending down. 2. Acute hypoxic respiratory failure ? Secondary to community-acquired pneumonia as well as acute on chronic congestive heart failure with preserved ejection fraction. Patient has been managed on noninvasive ventilation Airvo. Consult placed to pulmonary medicine notes and recommendations reviewed. 09/14/2024; CTA obtained the day prior did show Diffuse bilateral airspace disease involving both lungs upper and lower lobes superimposed on chronic scarring and bronchiectasis. No evidence of pulmonary embolism.. Patient has currently been weaned down to high flow oxygen and is currently on 5 L flow per minute ? 09/15/2024; oxygen requirement down to 2 L flow per minute ? 09/17/2024; patient still remains hypoxic did place an order for home oxygen assessment to aid in making decision regarding disposition ? 09/18/2024; patient currently down to 2 L and saturating 98% she however desaturates easily with minimal activity 3. Pneumonia - Suspected to be secondary to gram-positive and gram-negative organism, Blood and sputum cultures sent. Patient placed broad-spectrum antibiotic therapy with Zosyn as well as vancomycin also placed on oxygen via Airvo titrated to keep Pulse Ox greater than 90 4. Acute cystitis ? Urine cultures came back positive for Klebsiella patient has been managed appropriately 5. Acute on chronic congestive heart failure with preserved ejection fraction ? 2D echo obtained on 08/13/2024 demonstrated EF of 70%. Patient has been managed with strict input and output, daily weight, low-sodium diet, fluid restriction as well as diuretic therapy with furosemide. 6. Coronary artery disease ? With history of multiple stenting, patient remains on guideline directed medical therapy 7. Hypothyroidism ? Patient is on levothyroxine home dose continued 8. Hypertension ? Blood pressure controlled, home medications continued with dose adjustment as needed 9. 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 ? Resolved 12. Anemia ? Secondary to chronic disorder monitoring H&H and transfuse if patient becomes symptomatic or hemoglobin falls below 7 13. Oral candidiasis ? Patient started on nystatin swish and swallow 14. DVT prophylaxis ? On enoxaparin 15. Physical deconditioning ? Requested for PT OT eval and social work therapist to assist with discharge planning Time spent in the patient's overall evaluation,decision-making process, review of diagnostic data, adjustment of management, discussion with other providers, nursing nursing and ancillary staff involved in patient's care documentation, 36 Minutes Charges/Coding Visit Charges Inpatient E&M: 42256 Subs Hosp L2
[2024-09-18 09:02] LABS: Hemoglobin 10.2 g/dL (12.0-15.0); White Blood Count 11.9 K/mm3 (4.4-11.0)
[2024-09-18 09:03] LABS: Hematocrit 30.2 % (37-47); Mean Corp Hgb Conc 33.8 g/dL (32-36); Mean Corpuscular Hgb 30.9 pg (27.0-32.0)
[2024-09-18 09:04] LABS: Mean Platelet Vol. 10.7 fl (6.2-12.0); POSITIVE COUNT NO; POSITIVE DIFFERENTIAL NO; Platelet Count 337 K/mm3 (150-450); RBC Distribution Width CV 15.7 % (11.6-14.6); RBC Distribution Width SD 51.2 fl (35.1-43.9)
[2024-09-18 09:05] LABS: Basophil% 0.1 % (0-1); Monocyte% 3.3 % (0-10); Neutrophil % 88.7 % (47-70)
[2024-09-18 09:06] LABS: Neutrophil # 10.54 X10^3/uL (2.7-7.7)
[2024-09-18 09:07] LABS: Absolute Neutrophil Count 10.5 X10^3/uL (2.0-7.7); Lymphocyte # 0.78 X10^3/ul (0.83-4.51)
[2024-09-18 09:08] LABS: Absolute Lymphocyte Count 0.78 X10^3/uL (0.83-4.51); Basophil# 0.01 X10^3/uL; Monocyte# 0.39 X10^3/uL
--- NOTE | 2024-09-18 09:38 | PN.CC_ITS ---
Objective Data Objective Data Vital Signs: Vital Signs Last response 3 Temperature 36.8 C 09/18/24 03:27 Temperature Source Oral 09/18/24 03:27 Pulse Rate 63 09/18/24 03:27 Pulse Strength Normal (2+) 09/17/24 08:11 Respiratory Rate 16 09/18/24 03:27 Respiratory Effort Normal 09/18/24 03:45 Respiratory Depth Normal 09/18/24 03:45 Respiratory Pattern Normal 09/18/24 03:45 Blood Pressure 159/58 H 09/18/24 03:27 Blood Pressure Mean 91 09/18/24 03:27 Blood Pressure Source Monitor 09/18/24 03:27 Blood Pressure Position Semi-Fowlers 09/18/24 03:27 Blood Pressure Location Right Arm 09/18/24 03:27 Pulse Ox 96 09/18/24 07:05 Oxygen Delivery Method Nasal Cannula 09/18/24 07:05 Oxygen Flow Rate (L/min) 2 09/18/24 07:05 Fraction of Inspired Oxygen (FIO2) 30 09/16/24 07:55 I&O: I&O Last 24 Hours 3 09/17/24 09/17/24 09/18/24 11:59 23:59 11:59 Intake Total 630 / 1640 1010 / 1640 580 / 580 Output Total 550 / 550 Balance 630 / 1090 460 / 1090 580 / 580 I&O: Total Stay 3 09/06/24 13:31 thru 09/18/24 05:40 Intake Total 10340.83 Output Total 25732 Balance 2401.83 Current Meds Ordered / Administered: Current meds ordered / Administered 3 Generic Name Dose Route Start Last Admin Trade Name Jordanq PRN Reason Stop Dose Admin Acetaminophen 650 mg 09/06/24 19:26 09/09/24 03:51 Acetaminophen 325 Mg Tablet PO 650 mg Q6H PRN PRN Administration Pain 1-10 Or Fever >100.7 Albuterol Sulfate 2.5 mg 09/06/24 19:26 09/15/24 12:03 Albuterol 2.5 Mg/3 Ml Vial.Neb. INHALATION 2.5 mg Q2H PRN PRN Administration SOB &/OR WHEEZING Albuterol/Ipratropium 3 ml 09/17/24 23:15 Ipratropium/Albuterol Sulfate 3 Ml Ampul.Neb INHALATION Q6HWA.RT LUDIN Amlodipine Besylate 10 mg 09/13/24 11:30 09/17/24 09:06 Amlodipine 10 Mg Tablet PO 10 mg DAILY LUDIN Administration Protocol Aspirin 81 mg 09/07/24 08:00 09/17/24 09:04 Aspirin 81 Mg Tab.Chew PO 81 mg DAILY@0800 LUDIN Administration Atorvastatin Calcium 40 mg 09/07/24 10:00 09/17/24 09:06 Atorvastatin Calcium 40 Mg Tablet PO 40 mg DAILY LUDIN Administration Clopidogrel Bisulfate 75 mg 09/07/24 10:00 09/17/24 09:05 Clopidogrel Bisulfate 75 Mg Tablet PO 75 mg DAILY LUDIN Administration Enoxaparin Sodium 40 mg 09/08/24 06:00 09/18/24 05:31 Enoxaparin 40 Mg/0.4 Ml Syringe SC 40 mg DAILY@0600 LUDIN Administration Guaifenesin 1,200 mg 09/06/24 22:00 09/17/24 21:05 Guaifenesin 1,200 Mg Tablet PO 1,200 mg BID LUDIN Administration Piperacillin Sod/Tazobactam 50 mls @ 12.5 mls/hr 09/09/24 06:00 09/18/24 05:30 Sod 3.375 gm/ Sodium Chloride IV 12.5 mls/hr Q8 LUDIN Administration Vancomycin IV-PHARMACY TO DOSE 500 mls @ 250 mls/hr 09/09/24 05:47 1 each/ Sodium Chloride IV X1 PRN Rx to Dose Protocol Sodium Chloride 100 mls @ 15 mls/hr 09/09/24 09:27 09/10/24 11:40 IV Infused .Q6H40M PRN Infusion Saline Flush Sodium Chloride 100 mls @ 15 mls/hr 09/09/24 09:27 IV .Q6H40M PRN Additional IVPB Infusion Vancomycin HCl 1,500 mg/ 530 mls @ 250 mls/hr 09/14/24 22:30 09/18/24 03:26 Sodium Chloride IV Infused Q24H LUDIN Infusion Isosorbide Mononitrate 30 mg 09/13/24 11:30 09/17/24 21:05 Isosorbide Mononitrate 30 Mg Tablet PO 30 mg BID LUDIN Administration Protocol Levothyroxine Sodium 88 mcg 09/07/24 06:00 09/18/24 05:30 Levothyroxine 88 Mcg Tablet PO 88 mcg DAILY@0600 LUDIN Administration Losartan Potassium 50 mg 09/13/24 11:30 09/17/24 09:04 Losartan Potassium 50 Mg Tablet PO 50 mg DAILY LUDIN Administration Protocol Magnesium Chloride 128 mg 09/07/24 10:00 09/17/24 09:04 Magnesium Chloride 64 Mg Delay Rel.Tablet PO 128 mg DAILY LUDIN Administration Melatonin 3 mg 09/06/24 19:26 Melatonin 3 Mg Tablet PO QHS PRN PRN INSOMNIA Methylprednisolone Sodium Succinate 40 mg 09/15/24 12:00 09/18/24 05:31 Methylprednisolone Sod Succ 40 Mg/Ml Vial IV 40 mg Q6 LUDIN Administration Metoprolol Succinate 12.5 mg 09/06/24 22:00 09/17/24 21:06 Metoprolol(Xl)Succ 25 Mg Tablet PO 12.5 mg BID LUDIN Administration Protocol Nitroglycerin 0.4 mg 09/13/24 11:23 Nitroglycerin (Inpatient Use) 0.4 Mg Tab.Subl SL Q5M PRN chest pain Nystatin 500,000 unit 09/13/24 14:00 09/17/24 21:05 Nystatin 500,000 Unit/5 Ml Udc PO 500,000 unit 4X/DAY LUDIN Administration Ondansetron HCl 4 mg 09/06/24 19:26 Ondansetron 4 Mg/2 Ml Vial IV Q8H PRN PRN NAUSEA/VOMITING Senna/Docusate Sodium 2 tablet 09/06/24 19:26 Senna/Docusate Sodium 1 Tablet PO BID PRN PRN Constipation Sodium Chloride 10 - 40 ml 09/06/24 19:45 09/18/24 05:31 0.9% Saline Lock 10 Ml Syringe IV 10 ml UD PRN Administration SALINE FLUSH Vancomycin Protocol 1 lab 09/18/24 21:00 Vancomycin Trough/Random Due [facility] 09/18/24 23:00 [facility] Lab / Micro Data 09/18/24 05:15 09/18/24 05:15 Labs: Laboratory Results - last 24 hr 09/18/24 05:15: WBC 11.9 H, RBC 3.30 L, Hgb 10.2 L, Hct 30.2 L, MCV 90.7, MCH 30.9, MCHC 33.8, RDW Std Deviation 51.2 H, RDW Coeff of Martha 15.7 H, Plt Count 337, MPV 10.7, Immature Gran % (Auto) 1.300 H, Neut % (Auto) 88.7 H, Lymph % (Auto) 7.0 L, [place] % (Auto) 3.3, Eos % (Auto) 0.0, Baso % (Auto) 0.1, Absolute Neuts (auto) 10.5 H, Absolute Lymphs (auto) 0.78 L, Nucleated RBC % 0, Sodium 138, Potassium 4.4, Chloride 102, Carbon Dioxide 25.7, Anion Gap 10, BUN 47 H, Creatinine 1.06, Estim Creat Clear Calc 33.72 L, Est GFR (MDRD) Non-Af 51 L, B UN/Creatinine Ratio 44.5 H, Glucose 252 H, Calcium 8.3 Assessment and Plan . Assessment and plan: Subjective: No acute events o/n. Pt feels breathing gradually improving. Still dyspneic on exertion but able to ambulate a bit better Physical Exam: Gen - NAD, well-developed HEENT - MMM. Sclera anicteric Resp - +crackles. Breathing nonlabored CV - RRR. No m/g/r Abd - Soft, NT, ND Ext - No c/c. Trace edema Skin - No rashes? Neuro - Grossly nonfocal. Alert and oriented I have reviewed the pertinent vital sign, laboratory, and imaging data. IMPRESSIONS: 1. Acute hypoxemic respiratory failure Multifactorial in etiology with heart failure with preserved ejection fraction and multifocal pneumonia contributing. She does have a remote history of sarcoidosis, which was apparently in remission for the last several years. She remains dyspneic with exertion but slowly improving. CTA chest ruled out pulmonary embolism, but did confirm extensive bilateral infiltrates. The patient will be continued on broad-spectrum antimicrobials to complete a minimum of 7 days of therapy, along with IV corticosteroids. In addition, we will plan to continue intermittent use of diuretics to maintain euvolemic state. Encourage incentive spirometer use and mobilize patient as tolerated. 2. History of coronary artery disease status post PCI/valvular heart disease status post TAVR/sarcoidosis/hypothyroidism Complicates care, management, recovery and prognosis. Continue home medications as indicated. RECOMMENDATIONS: 1. Continue supplemental oxygen to maintain saturations at or above 90%. Down to 2L NC. CXR improving 2. Continue broad-spectrum antimicrobials vanc/zosyn to complete at least 7 days of therapy. Check MRSA nares. f/u final Cx data 3. Continue scheduled corticosteroids, will start tapering down. 4. Continue intermittent use of diuretics to maintain euvolemic state. Monitor renal function, UOP 5. PAP therapy with naps and nightly. 6. Cont flutter valve, mucinex to aid with sputum clearance We will monitor peripherally over the weekend given clinical improvement. Please call us if any questions or if clinical worsening The entirety of this encounter was done via Telemedicine
[2024-09-18] MEDS: Metoprolol(XL)Succ 25 MG Tablet 12.5 MG PO ×2 (10:02→21:27)
[2024-09-18] MEDS: Magnesium Chloride 64 MG Delay Rel.Tablet 128 MG PO (10:03)
[2024-09-18] MEDS: amLODIPine 10 MG Tablet PO (10:03)
[2024-09-18] MEDS: Losartan Potassium 50 MG Tablet PO (10:03)
[2024-09-18] MEDS: Atorvastatin Calcium 40 MG Tablet PO (10:03)
[2024-09-18] MEDS: Clopidogrel Bisulfate 75 MG Tablet PO (10:03)
[2024-09-18] MEDS: Isosorbide Mononitrate 30 MG Tablet PO ×2 (10:03→21:27)
[2024-09-18] MEDS: guaiFENesin 1,200 MG Tablet 1200 MG PO ×2 (10:03→21:26)
[2024-09-18] MEDS: Aspirin 81 MG TAB.CHEW PO (10:03)
[2024-09-18] MEDS: NYSTATIN 500,000 UNIT/5 ML UDC 500000 UNIT PO ×4 (10:04→21:26)
--- NOTE | 2024-09-18 11:05 | RAD_ITS ---
PROCEDURE: CHEST 1 VIEW (PORTABLE) 09/18/2024 REASON FOR EXAM: RESP FAILURE, pneumonia TECHNIQUE: Frontal view of the chest. COMPARISON: Chest radiograph 09/12/2024 FINDINGS: Hardware: Heart: None Lungs: Hazy right lower lobe airspace disease persists patchy ground-glass pneumonia in the left lower lobe still is present. The right and left upper lobe infiltrates that were present the prior exam has resolved. Bones: Unremarkable Other: RAD/Chest 1 View (Portable) IMPRESSION: Resolving pneumonia. Persistent airspace disease in the right and left lower l obes Reading [facility]
[2024-09-18] MEDS: Ipratropium/Albuterol Sulfate 3 ML AMPUL.NEB INHALATION ×2 (13:37→19:03)
[2024-09-18] MEDS: Vancomycin Trough/Random Due 1 LAB MC (22:15)
[2024-09-19] VITALS (13 sets, daily range): BP systolic 148–166; BP diastolic 51–56; PULSE 60–80; RESP 16–22; TEMP 36.5–36.9; O2SAT 82–98; BMI 26.9
[2024-09-19] MEDS: Vancomycin HCl 1,250 MG in 0.9% Normal Saline (250mL Bag) 250 ML 167 MG IV (00:24)
[2024-09-19] MEDS: 0.9% Saline Lock 10 ML Syringe IV ×3 (00:24→21:10)
--- NOTE | 2024-09-19 01:57 | PCM.RX.CS ---
Consult Antibiotic Management Pharmacy has been consulted to manage selected antibiotic: Vancomycin Type of Intervention Type of Consult: Follow-up Labs Labs: Sodium 138 mmol/L (133-145) 09/18/24 05:15 Potassium 4.4 mmol/L (3.3-5.1) 09/18/24 05:15 Chloride 102 mmol/L (98-108) 09/18/24 05:15 Carbon Dioxide 25.7 mmol/L (21.0-32.0) 09/18/24 05:15 Anion Gap 10 (5-15) 09/18/24 05:15 BUN 47 mg/dL (4-19) H 09/18/24 05:15 Creatinine 1.06 mg/dL (0.70-1.20) 09/18/24 05:15 Est GFR (MDRD) Non-Af 51 (>60) L 09/18/24 05:15 BUN/Creatinine Ratio 44.5 RATIO (10-20) H 09/18/24 05:15 Glucose 252 mg/dL (70-99) H 09/18/24 05:15 Vancomycin Trough 21.0 ug/mL (5.0-15.0) H 09/18/24 21:40 Microbiology Microbiology: Microbiology 09/18/24 11:45 Nasal Secretion MRSA (PCR) - Final 09/06/24 14:25 Blood Culture (Wb) - Anticubital Left Blood Culture - Final No growth in 5 days. 09/06/24 14:20 Blood Culture (Wb) - Anticubital Right Blood Culture - Final No growth in 5 days. 09/06/24 15:37 Urine Catheter - [place] Urine Culture - Final Klebsiella pneumoniae sp pneum 09/06/24 23:50 Mucosa - Nasopharyngeal Respiratory Panel (PCR) - Final 09/06/24 20:40 Urine Catheter - [place] Streptococcus pneumoniae Antigen (M - Final 09/06/24 20:40 Urine Catheter - [place] Legionella Antigen - Final 09/06/24 14:33 Mucosa - Nose SARS-CoV-2, Influenza & RSV (PCR) - Final Goal Trough Goal Trough: 15-20 mcg/mL Pharmacy Plan for Drug Dosing Pharmacy Plan for Drug Dosing: Pharmacy Service will continue to monitor and adjust dosing as required. TROUGH 21.0 @ 11.5 HOURS. DECREASE TO 1250MG Q24H AND DRAW TROUGH PRIOR TO 3RD DOSE Follow-Up Labs Follow-Up Labs: Trough: Vancomycin Date/Time Labs Ordered Labs to be done on [date and time ordered]: 09/21 @ 0033
[2024-09-19] MEDS: Piperacil/Tazobactam 3.375 GM in 0.9% Normal Saline (50mL MB+) 50 ML IV ×3 (05:09→21:09)
[2024-09-19] MEDS: Levothyroxine 88 MCG Tablet PO (05:09)
[2024-09-19] MEDS: Methylprednisolone Sod Succ 40 MG/ML VIAL IV ×3 (05:10→21:09)
[2024-09-19] MEDS: Enoxaparin 40 MG/0.4 ML Syringe SC (05:10)
[2024-09-19] MEDS: 0.9% Normal Saline (100mL Bag) 100 ML 15 ML IV (05:22)
[2024-09-19 05:38] LABS: Procalcitonin 0.05 ng/mL (<=0.10)
[2024-09-19] MEDS: Ipratropium/Albuterol Sulfate 3 ML AMPUL.NEB INHALATION ×3 (07:12→19:26)
[2024-09-19] MEDS: NYSTATIN 500,000 UNIT/5 ML UDC 500000 UNIT PO ×4 (08:48→21:09)
[2024-09-19] MEDS: guaiFENesin 1,200 MG Tablet 1200 MG PO ×2 (08:52→21:09)
[2024-09-19] MEDS: Atorvastatin Calcium 40 MG Tablet PO (08:52)
[2024-09-19] MEDS: Isosorbide Mononitrate 30 MG Tablet PO ×2 (08:52→21:09)
[2024-09-19] MEDS: amLODIPine 10 MG Tablet PO (08:53)
[2024-09-19] MEDS: Metoprolol(XL)Succ 25 MG Tablet 12.5 MG PO ×2 (08:53→21:09)
[2024-09-19] MEDS: Losartan Potassium 50 MG Tablet PO (08:53)
[2024-09-19] MEDS: Clopidogrel Bisulfate 75 MG Tablet PO (08:53)
[2024-09-19] MEDS: Magnesium Chloride 64 MG Delay Rel.Tablet 128 MG PO (08:53)
[2024-09-19] MEDS: Aspirin 81 MG TAB.CHEW PO (08:53)
--- NOTE | 2024-09-19 09:05 | PCM.PN.HOSP ---
Reason for Visit Reason for Visit: Diagnoses Pneumonia, unspecified organism (09/06/24) Subjective Subjective Patient oxygen saturation continue to deteriorate. Apparently did drop to 82% when placed on room air Objective Data Objective Data Vital Signs: Vital Signs Temp Pulse Resp BP Pulse Ox O2 Del Method O2 Flow Rate 98.0 F 67 18 166/51 H 82 Room Air 2 09/19/24 08:20 09/19/24 08:53 09/19/24 08:20 09/19/24 08:53 09/19/24 08:25 09/19/24 08:25 09/19/24 08:20 FiO2 30 09/16/24 07:55 Oxygen Flow Rate (L/min) 2 Oxygen Delivery Method Room Air Weight: 66.9 kg Body Mass Index (BMI) 26.9 Intake & Output: Intake and Output for Last 24 Hours 09/17/24 09/18/24 09/19/24 23:59 23:59 23:59 Intake Total 1640 / 1640 1030 / 1030 575.25 / 575.25 Output Total 550 / 550 Balance 1090 / 1090 1030 / 1030 575.25 / 575.25 Lab / Micro Data 09/18/24 05:15 09/18/24 05:15 Labs: Laboratory Results - last 24 hr 09/18/24 05:15: WBC 11.9 H, RBC 3.30 L, Hgb 10.2 L, Hct 30.2 L, MCH 30.9, MCHC 33.8, RDW Std Deviation 51.2 H, RDW Coeff of Martha 15.7 H, Plt Count 337, MPV 10.7, Immature Gran % (Auto) 1.300 H, Neut % (Auto) 88.7 H, [place] % (Auto) 3.3, Baso % (Auto) 0.1, Absolute Neuts (auto) 10.5 H, Absolute Lymphs (auto) 0.78 L 09/18/24 21:40: Vancomycin Trough 21.0 H 09/19/24 03:20: Procalcitonin 0.05 Micro: Microbiology 09/18/24 11:45 Nasal Secretion MRSA (PCR) - Final 09/06/24 14:25 Blood Culture (Wb) - Anticubital Left Blood Culture - Final No growth in 5 days. 09/06/24 14:20 Blood Culture (Wb) - Anticubital Right Blood Culture - Final No growth in 5 days. 09/06/24 15:37 Urine Catheter - [place] Urine Culture - Final Klebsiella pneumoniae sp pneum 09/06/24 23:50 Mucosa - Nasopharyngeal Respiratory Panel (PCR) - Final 09/06/24 20:40 Urine Catheter - [place] Streptococcus pneumoniae Antigen (M - Final 09/06/24 20:40 Urine Catheter - [place] Legionella Antigen - Final 09/06/24 14:33 Mucosa - Nose SARS-CoV-2, Influenza & RSV (PCR) - Final Radiography Diagnostic Testing: Radiology Impression Chest X-Ray 09/18/24 11:05 IMPRESSION: Resolving pneumonia. Persistent airspace disease in the right and left lower lobes Reading Location: [facility] Physical Exam Narrative GENERAL: cooperative HEENT: Atraumatic; normocephalic, EYES; Anicteric, Normal Conjunctiva NECK; supple, normal thyroid, RESPIRATORY: Diminished to auscultation CARDIOVASCULAR: Regular S1 S2, GI: soft, normoactive bowel sounds, : No Renal angle tenderness; EXTREMITIES: No edema, no clubbing, MUSCULOSKELETAL: no muscle wasting NEURO: Awake; no lateralizing signs. SKIN: No Rash PSYCH; Flat affect Assessment & Plan Assessment/Plan (1) Pneumonia: PLAN: Plan Patient is an 88-year-old lady who was admitted with progressive shortness of breath and assessment of sepsis, acute hypoxic respiratory failure secondary to community-acquired pneumonia made admitted to monitored bed with treatment of underlying condition. Patient was also found to have acute cystitis on admission 1. Sepsis ? Due to combination of community-acquired pneumonia as well as acute cystitis admitted to a monitored bed treatment initiated per protocol ? 09/14/2024; patient WBC count still remains elevated -09/15/2024; WBC count down to 15.9 ? 09/17/2024; patient leukocytosis persist remains on broad-spectrum antibiotic ? 09/18/2024; patient WBC count trending down. 2. Acute hypoxic respiratory failure ? Secondary to community-acquired pneumonia as well as acute on chronic congestive heart failure with preserved ejection fraction. Patient has been managed on noninvasive ventilation Airvo. Consult placed to pulmonary medicine notes and recommendations reviewed. 09/14/2024; CTA obtained the day prior did show Diffuse bilateral airspace disease involving both lungs upper and lower lobes superimposed on chronic scarring and bronchiectasis. No evidence of pulmonary embolism.. Patient has currently been weaned down to high flow oxygen and is currently on 5 L flow per minute ? 09/15/2024; oxygen requirement down to 2 L flow per minute ? 09/17/2024; patient still remains hypoxic did place an order for home oxygen assessment to aid in making decision regarding disposition ? 09/18/2024; patient currently down to 2 L and saturating 98% she however desaturates easily with minimal activity ?09/19/2024; patient oxygen saturation levels continue to fluctuate. 3. Pneumonia - Suspected to be secondary to gram-positive and gram-negative organism, Blood and sputum cultures sent. Patient placed broad-spectrum antibiotic therapy with Zosyn as well as vancomycin also placed on oxygen via Airvo titrated to keep Pulse Ox greater than 90 4. Acute cystitis ? Urine cultures came back positive for Klebsiella patient has been managed appropriately 5. Acute on chronic congestive heart failure with preserved ejection fraction ? 2D echo obtained on 08/13/2024 demonstrated EF of 70%. Patient has been managed with strict input and output, daily weight, low-sodium diet, fluid restriction as well as diuretic therapy with furosemide. 6. Coronary artery disease ? With history of multiple stenting, patient remains on guideline directed medical therapy 7. Hypothyroidism ? Patient is on levothyroxine home dose continued 8. Hypertension ? Blood pressure controlled, home medications continued with dose adjustment as needed 9. 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 ? Resolved 12. Anemia ? Secondary to chronic disorder monitoring H&H and transfuse if patient becomes symptomatic or hemoglobin falls below 7 13. Oral candidiasis ? Patient started on nystatin swish and swallow 14. DVT prophylaxis ? On enoxaparin 15. Physical deconditioning ? Requested for PT OT eval and child protective services social worker to assist with discharge planning ?09/19/2024; plan is for patient to be discharged to the transitional care unit pending stabilization of her oxygen requirement Time spent in the patient's overall evaluation,decision-making process, review of diagnostic data, adjustment of management, discussion with other providers, nursing nursing and ancillary staff involved in patient's care documentation, 36 Minutes Charges/Coding Visit Charges Inpatient E&M: 40651 Subs Hosp L2
[2024-09-20] MEDS: Vancomycin HCl 1,250 MG in 0.9% Normal Saline (250mL Bag) 250 ML 167 MG IV (01:28)
[2024-09-20] MEDS: 0.9% Saline Lock 10 ML Syringe IV ×2 (01:29→05:15)
[2024-09-20 03:05] VITALS: BP 154/68; PULSE 59; RESP 18; TEMP 36.6; O2SAT 100
[2024-09-20 03:14] VITALS: BMI 27.2
[2024-09-20] MEDS: Piperacil/Tazobactam 3.375 GM in 0.9% Normal Saline (50mL MB+) 50 ML IV (05:14)
[2024-09-20] MEDS: Enoxaparin 40 MG/0.4 ML Syringe SC (05:14)
[2024-09-20] MEDS: Methylprednisolone Sod Succ 40 MG/ML VIAL IV (05:15)
[2024-09-20] MEDS: Levothyroxine 88 MCG Tablet PO (05:15)
[2024-09-20 06:41] LABS: Absolute Lymphocyte Count 1.28 X10^3/uL (0.83-4.51); Absolute Neutrophil Count 10.6 X10^3/uL (2.0-7.7); Basophil# 0.04 X10^3/uL; Basophil% 0.3 % (0-1); Hematocrit 32.9 % (37-47); Hemoglobin 10.8 g/dL (12.0-15.0); Lymphocyte # 1.28 X10^3/ul (0.83-4.51); Mean Corp Hgb Conc 32.8 g/dL (32-36); Mean Corpuscular Hgb 30.3 pg (27.0-32.0); Mean Corpuscular Volume 92.4 fL (81-99); Mean Platelet Vol. 10.5 fl (6.2-12.0); Monocyte# 0.54 X10^3/uL; Monocyte% 4.2 % (0-10); NRBC Flagged by Analyzer 0 % (0-5); Neutrophil # 10.58 X10^3/uL (2.7-7.7); Neutrophil % 82.9 % (47-70); Platelet Count 319 K/mm3 (150-450); RBC Distribution Width CV 15.6 % (11.6-14.6); RBC Distribution Width SD 52.1 fl (35.1-43.9); Red Blood Count 3.56 M/mm3 (4.2-5.4); White Blood Count 12.8 K/mm3 (4.4-11.0)
[2024-09-20 06:58] LABS: Anion Gap 9 (5-15); BUN 28 mg/dL (4-19); BUN/Creat Ratio 39.9 RATIO (10-20); Calcium,Total 8.3 mg/dL (7.6-11.0); Carbon Dioxide 23.3 mmol/L (21.0-32.0); Chloride 106 mmol/L (98-108); Creatinine, Serum 0.71 mg/dL (0.70-1.20); EST Glomerular Filtration Rate 83 (>60); Estimated Creatinine Clearance 45.47 ml/min (50-250); Glucose 205 mg/dL (70-99); Magnesium 2.3 mg/dL (1.5-2.2); Phosphorus 2.3 mg/dL (2.7-4.5); Potassium 4.7 mmol/L (3.3-5.1); Sodium Level 138 mmol/L (133-145)
[2024-09-20 07:11] VITALS: PULSE 74; RESP 16; O2SAT 96
[2024-09-20] MEDS: Ipratropium/Albuterol Sulfate 3 ML AMPUL.NEB INHALATION (07:11)
--- NOTE | 2024-09-20 09:31 | PN.HOSP_ITS ---
Reason for Visit Reason for Visit: Diagnoses Pneumonia, unspecified organism (09/06/24) Subjective Subjective Feels well. No new issues. Objective Data Objective Data Vital Signs: Vital Signs Temp Pulse Resp BP Pulse Ox O2 Del Method O2 Flow Rate 36.6 C 59 L 18 154/68 H 100 Nasal Cannula 2 09/20/24 03:05 09/20/24 03:05 09/20/24 03:05 09/20/24 03:05 09/20/24 03:05 09/20/24 07:50 09/20/24 07:50 FiO2 30 09/16/24 07:55 Oxygen Flow Rate (L/min) 2 Oxygen Delivery Method Nasal Cannula Weight: 67.5 kg Body Mass Index (BMI) 27.2 Intake & Output: Intake and Output for Last 24 Hours 09/18/24 09/19/24 09/20/24 23:59 23:59 23:59 Intake Total 1030 / 1030 675.25 / 795.25 735 / 735 Balance 1030 / 1030 675.25 / 795.25 735 / 735 Lab / Micro Data 09/20/24 05:31 09/20/24 05:31 Labs: Laboratory Results - last 24 hr 09/20/24 05:31: WBC 12.8 H, RBC 3.56 L, Hgb 10.8 L, Hct 32.9 L, MCV 92.4, MCH 30.3, MCHC 32.8, RDW Std Deviation 52.1 H, RDW Coeff of Martha 15.6 H, Plt Count 319, MPV 10.5, Immature Gran % (Auto) 2.600 H, Neut % (Auto) 82.9 H, Lymph % (Auto) 10.0 L, [place] % (Auto) 4.2, Eos % (Auto) 0.0, Baso % (Auto) 0.3, Absolute Neuts (auto) 10.6 H, Absolute Lymphs (auto) 1.28, Nucleated RBC % 0, Sodium 138, Potassium 4.7, Chloride 106, Carbon Dioxide 23.3, Anion Gap 9, BUN 28 H, Creatinine 0.71, Estim Creat Clear Calc 45.47 L, Est GFR (MDRD) Non-Af 83, B UN/Creatinine Ratio 39.9 H, Glucose 205 H, Calcium 8.3, Phosphorus 2.3 L, M agnesium 2.3 H Micro: Microbiology 09/18/24 11:45 Nasal Secretion MRSA (PCR) - Final 09/06/24 14:25 Blood Culture (Wb) - Anticubital Left Blood Culture - Final No growth in 5 days. 09/06/24 14:20 Blood Culture (Wb) - Anticubital Right Blood Culture - Final No growth in 5 days. 09/06/24 15:37 Urine Catheter - [place] Urine Culture - Final Klebsiella pneumoniae sp pneum 09/06/24 23:50 Mucosa - Nasopharyngeal Respiratory Panel (PCR) - Final 09/06/24 20:40 Urine Catheter - [place] Streptococcus pneumoniae Antigen (M - Final 09/06/24 20:40 Urine Catheter - [place] Legionella Antigen - Final 09/06/24 14:33 Mucosa - Nose SARS-CoV-2, Influenza & RSV (PCR) - Final Physical Exam Const alert and no apparent distress HEENT head/scalp atraumatic and moist oral mucous membranes Resp normal respiratory effort, no retractions, no use of accessory muscles and clear to auscultation bilaterally Cardio regular rate, regular rhythm, S1 normal heart sound and S2 normal heart sound GI normal to inspection, nondistended, normoactive bowel sounds, soft to palpation, non-tender and non-distended Extremity normal to inspection and full ROM Neuro Sensorium / Orientation: awake and alert Assessment & Plan Assessment/Plan (1) Sepsis: PLAN: POA. subsequently resolved. Please refer to admission notes for SIRS/qSOFA criteria. resolved 2/2 pneumonia (2) Acute hypoxic respiratory failure: PLAN: improving 2/2 extensive pneumonia. continue to wean oxygen as tolerated. (3) Pneumonia: PLAN: suspected gram negative extensive bilateral infiltrate. completed 10-days of pip/tazo and vancomycin PLAN: Plan HTN: amlodipine CAD: stable. continue DAPT, atorvastatin hypothyroidism: levothyroxine VTE prophylaxis: LMWH. Dispo: to SNF.
--- NOTE | 2024-09-20 09:41 | CASEMGMT ---
[facility] can take patient. SONIDO met with patient and her daughter Li. Introduced self and role at [facility]. SW explained that [facility] can take patient if she is still interested. They asked about home health and SONIDO explained what insurance covers for home health and homebound status. They would like to see how patient does with therapy today and talk with patient's . SW will check back. Tracy Sifuentes GARDE MANGER REYES
--- NOTE | 2024-09-20 09:50 | PN.CC_ITS ---
Assessment & Plan Assessment/Plan (1) Pneumonia: PLAN: Plan RECOMMENDATIONS: 1. Continue supplemental oxygen to maintain saturations at or above 90%. 2. Antibiotics can be discontinued, as the patient has completed a treatment course. 3. Transition from IV steroids to prednisone 40 mg daily for 5 additional days. 4. Continue intermittent use of diuretics to maintain euvolemic state. 5. PAP therapy with naps and nightly. 6. Disposition planning is underway. 7. Will sign off at this time. Please call if I can be of any additional assistance. IMPRESSIONS: 1. Acute hypoxemic respiratory failure Multifactorial in etiology with heart failure with preserved ejection fraction and multifocal pneumonia contributing. She does have a remote history of sarcoidosis, which was apparently in remission for the last several years. Ultimately, the patient's respiratory status has improved with the use of antimicrobials, corticosteroids and Lasix. CTA chest ruled out pulmonary embolism, but did confirm extensive bilateral infiltrates. The patient has completed a treatment course of antimicrobials. Therefore, antibiotics have been discontinued. Given her clinical improvement, the patient will be transition from IV corticosteroids to prednisone 40 mg daily to complete 5 additional days of therapy. Recommend continuing intermittent use of diuretics to maintain euvolemic state. Encourage incentive spirometer use and mobilize patient as tolerated. 2. History of coronary artery disease status post PCI/valvular heart disease status post TAVR/sarcoidosis/hypothyroidism Complicates care, management, recovery and prognosis. Continue home medications as indicated. This note was generated with [employer] dictation software. It may contain incorrect words, spelling, and punctuation that were not noted in checking the note before signing. Subjective Subjective The patient was seen and examined at the bedside this morning. Events from the last 24 hours have been reviewed. The patient is currently afebrile, hemodynamically stable and maintaining appropriate oxygen saturations on 2 L/min via nasal cannula. The patient feels relatively well this morning and has no specific complaints. She is documented to be overall net +4.2 L for the hospitalization. White blood cell count is stable at 12,000 with a hemoglobin of 10.8 g/dL. Creatinine is within normal limits. Objective Data Objective Data The patient's most recent lab work, culture data and imaging studies have all been personally reviewed. COVID, influenza and RSV PCR's were negative. Vital Signs: Vital Signs Temp Pulse Resp BP Pulse Ox O2 Del Method O2 Flow Rate 97.8 F 59 L 18 154/68 H 100 Nasal Cannula 2 09/20/24 03:05 09/20/24 03:05 09/20/24 03:05 09/20/24 03:05 09/20/24 03:05 09/20/24 07:50 09/20/24 07:50 FiO2 30 09/16/24 07:55 Oxygen Flow Rate (L/min) 2 Oxygen Delivery Method Nasal Cannula Weight: 148 lb 12.992 oz Body Mass Index (BMI) 27.2 Intake & Output: Intake and Output for Last 24 Hours 09/18/24 09/19/24 09/20/24 23:59 23:59 23:59 Intake Total 1030 / 1030 675.25 / 795.25 735 / 735 Balance 1030 / 1030 675.25 / 795.25 735 / 735 Lab / Micro Data Attestation: I reviewed the patient's lab results. 09/20/24 05:31 09/20/24 05:31 Labs: Laboratory Results - last 24 hr 09/20/24 05:31: WBC 12.8 H, RBC 3.56 L, Hgb 10.8 L, Hct 32.9 L, MCV 92.4, MCH 30.3, MCHC 32.8, RDW Std Deviation 52.1 H, RDW Coeff of Martha 15.6 H, Plt Count 319, MPV 10.5, Immature Gran % (Auto) 2.600 H, Neut % (Auto) 82.9 H, Lymph % (Auto) 10.0 L, [place] % (Auto) 4.2, Eos % (Auto) 0.0, Baso % (Auto) 0.3, Absolute Neuts (auto) 10.6 H, Absolute Lymphs (auto) 1.28, Nucleated RBC % 0, Sodium 138, Potassium 4.7, Chloride 106, Carbon Dioxide 23.3, Anion Gap 9, BUN 28 H, Creatinine 0.71, Estim Creat Clear Calc 45.47 L, Est GFR (MDRD) Non-Af 83, B UN/Creatinine Ratio 39.9 H, Glucose 205 H, Calcium 8.3, Phosphorus 2.3 L, M agnesium 2.3 H Micro: Microbiology 09/18/24 11:45 Nasal Secretion MRSA (PCR) - Final 09/06/24 14:25 Blood Culture (Wb) - Anticubital Left Blood Culture - Final No growth in 5 days. 09/06/24 14:20 Blood Culture (Wb) - Anticubital Right Blood Culture - Final No growth in 5 days. 09/06/24 15:37 Urine Catheter - [place] Urine Culture - Final Klebsiella pneumoniae sp pneum 09/06/24 23:50 Mucosa - Nasopharyngeal Respiratory Panel (PCR) - Final 09/06/24 20:40 Urine Catheter - [place] Streptococcus pneumoniae Antigen (M - Final 09/06/24 20:40 Urine Catheter - [place] Legionella Antigen - Final 09/06/24 14:33 Mucosa - Nose SARS-CoV-2, Influenza & RSV (PCR) - Final Radiography Diagnostic Testing: Radiology Impression Chest CTA 09/13/24 09:54 IMPRESSION: Diffuse bilateral airspace disease involving both lungs upper and lower lobes superimposed on chronic scarring and bronchiectasis. Radiographic follow-up recommended. No evidence of pulmonary embolism. Reading Location: [place] [id number] Physical Exam Const alert, oriented x3 and no apparent distress Constitutional Narrative: Sitting in bedside recliner. General Appearance: cooperative HEENT normocephalic, head/scalp atraumatic and moist oral mucous membranes Eyes EOMs intact bilaterally, conjunctivae normal and no scleral icterus Neck supple General: trachea midline Chest inspection of chest normal Resp normal respiratory effort and no use of accessory muscles Effort and Inspection: able to speak in complete sentences Auscultation: diminished lung sounds; Negative for rales, rhonchi or wheezes Cardio regular rate and regular rhythm Heart Sounds: murmur GI normal to inspection, nondistended, normoactive bowel sounds Extremity no clubbing, cyanosis or edema Skin no rashes or lesions noted Neuro CN's II-XII intact bilaterally, moves all extremities and no focal motor deficits Psych cooperative and affect normal Charges/Coding Visit Charges Inpatient E&M: 96217 Subs Hosp L2
[2024-09-20 10:05] VITALS: BP 152/53; PULSE 68; RESP 16; TEMP 36.6; O2SAT 98
[2024-09-20] MEDS: Aspirin 81 MG TAB.CHEW PO (10:08)
[2024-09-20] MEDS: Atorvastatin Calcium 40 MG Tablet PO (10:09)
[2024-09-20] MEDS: Losartan Potassium 50 MG Tablet PO (10:09)
[2024-09-20] MEDS: Isosorbide Mononitrate 30 MG Tablet PO (10:09)
[2024-09-20] MEDS: Magnesium Chloride 64 MG Delay Rel.Tablet 128 MG PO (10:09)
[2024-09-20 10:10] VITALS: BP 152/53; PULSE 68
[2024-09-20] MEDS: amLODIPine 10 MG Tablet PO (10:10)
[2024-09-20] MEDS: Clopidogrel Bisulfate 75 MG Tablet PO (10:10)
[2024-09-20] MEDS: NYSTATIN 500,000 UNIT/5 ML UDC 500000 UNIT PO ×2 (10:10→14:38)
[2024-09-20] MEDS: Metoprolol(XL)Succ 25 MG Tablet 12.5 MG PO (10:10)
[2024-09-20] MEDS: guaiFENesin 1,200 MG Tablet 1200 MG PO (10:10)
--- NOTE | 2024-09-20 14:35 | PCM.TXEXTCAR ---
Diet Diet Order/Speech Therapy: 09/06/24 19:27 Diet: Cardiac - Heart Healthy Food consistency:: Regular Liquid Consistency:: Regular/Thin Dietary Modifications:: Consistent Carbohydrate Type of Dietary Supplement:: Glucerna Shake Diet Comments: 120mL chocolate glucerna shake w/ lunch and dinner Routine Orders/Code Status Code Status: Full Code DC O2, CPAP, BIPAP needs Home O2 Discharge instructions: No Therapies Weight Bearing: Full weight bearing Physical Therapy: Eval and Treat Occupational Therapy: Eval and Treat Problem/Diagnosis (1) Sepsis: Status: Acute Code(s): A41.9 - Sepsis, unspecified organism Plan: POA. subsequently resolved. Please refer to admission notes for SIRS/qSOFA criteria. resolved 2/2 pneumonia (2) Acute hypoxic respiratory failure: Status: Acute Code(s): J96.01 - Acute respiratory failure with hypoxia Plan: improving 2/2 extensive pneumonia. continue to wean oxygen as tolerated. (3) Pneumonia: Status: Acute Code(s): J18.9 - Pneumonia, unspecified organism Plan: suspected gram negative extensive bilateral infiltrate. completed 10-days of pip/tazo and vancomycin Plan HTN: amlodipine CAD: stable. continue DAPT, atorvastatin hypothyroidism: levothyroxine VTE prophylaxis: LMWH. Dispo: to SNF. Allergies/Procedures Done in Hospital Allergies Iodinated Contrast Media (Iodinated Contrast- Oral and IV Dye) Allergy (Intermediate, Verified 09/06/24 13:45) Rash ramipril (From Altace) Adverse Reaction (Severe, Verified 09/06/24 13:45) cough ticagrelor (From Brilinta) Adverse Reaction (Verified 09/06/24 13:45) Dyspnea Procedures: None Type of Care/Length of Stay Estimated LOS: Convalescent Care Less Than 30 days Type of Care Needed: Skilled Rehab Potential: Good Prognosis: Good Additional Orders/Day of Discharge Day of Discharge: 09/20/24 Dietary and Speech Recommendations Dietitian Recommendations/Changes: Continue cardiac; consistent carbohydrate diet due to high blood sugar levels. Continue 120ml glucerna shake BID with lunch and dinner. Will monitor weight trends. Discharge Plan Admission Admit Date/Time: 09/06/24 18:29 Primary Reason for Your Visit: Pneumonia Attending Provider: Arcadio Dillard Primary Care Provider: Alicia Mata Consulting Providers: Emmy Keller; Ritchie Verduzco; Aime Flores Discharge Orders/Prescriptions Prescriptions: New acetaminophen 325 mg Tablet 650 mg PO Q6H PRN PRN (Reason: Pain 1-10 Or Fever >100.7) Qty: 0 0RF prednisone 20 mg Tablet 40 mg PO BREAKFAST Qty: 10 0RF enoxaparin 40 mg/0.4 mL Syringe 40 mg subcut DAILY@0600 Qty: 0 0RF Continued vitamin E (dl, acetate) 180 mg (400 unit) capsule 180 mg PO DAILY magnesium 250 mg tablet 250 mg PO DAILY furosemide 40 mg tablet See Rx Instructions .ROUTE .COMPLEX PRN (Reason: swelling) Dose Instruction: take 1 tablet by mouth once daily Rx Instructions: take 1 tablet by mouth once daily PRN; losartan 50 mg tablet 50 mg PO DAILY folic acid 400 mcg tablet 0.4 mg PO QDAY selenium 200 mcg capsule 200 mcg PO QDAY ascorbic acid (vitamin C) 500 mg capsule 1,000 mg PO BID coenzyme Q10 100 mg capsule 200 mg PO DAILY multivitamin Tablet 1 tab PO DAILY aspirin 81 MG tablet 81 mg PO DAILY@0800 Qty: 0 0RF levothyroxine 88 mcg tablet 88 mcg PO DAILY amlodipine 10 mg tablet 10 mg PO DAILY Rx Instructions: pt states pcp told her to take bid nitroglycerin 0.4 mg tablet, sublingual 0.4 mg SUBLINGUAL Q5-15M PRN (Reason: chest pain) 10 Days Qty: 25 3RF metoprolol succinate 25 mg tablet extended release 24 hr 25 mg PO BID Qty: 180 3RF atorvastatin 40 mg tablet 40 mg PO DAILY Qty: 90 3RF isosorbide mononitrate 30 mg tablet extended release 24 hr 30 mg PO BID Qty: 180 3RF clopidogrel 75 mg tablet See Rx Instructions .ROUTE .COMPLEX Qty: 90 3RF Dose Instruction: take 1 tablet by mouth once daily Rx Instructions: take 1 tablet by mouth once daily Referrals / Follow Up: Alicia Mata NP-C [Primary Care Provider] - Within 2 Weeks Disposition Disposition (needs filled in before D/C Order can be placed): [facility]
[2024-09-20 14:40] VITALS: BP 142/59; PULSE 72; RESP 16; TEMP 36.6; O2SAT 93
--- NOTE | 2024-09-20 14:41 | PCM.DC.SUM ---
Providers Date of Admission: 09/06/24 Primary Care Physician: JOSE Inman Consultations 09/08/24 05:55 Consult: Print Line Inspector / Pulmonary Medicine Routine Consulting Provider: Intensivists/Pulmonary Med Reason for Consult: hx sarcoidosis, pneumonia, hypoxia EMERGENT Consult: No MD Notified: Yes Date Notified: 09/08/24 Time Notified: 06:25 Method of Notification: Text Reason For Visit: SEPSIS, PNA Diagnosis Discharge Diagnosis (1) Sepsis: Status: Acute Code(s): A41.9 - Sepsis, unspecified organism Plan: POA. subsequently resolved. Please refer to admission notes for SIRS/qSOFA criteria. resolved 2/2 pneumonia (2) Acute hypoxic respiratory failure: Status: Acute Code(s): J96.01 - Acute respiratory failure with hypoxia Plan: improving 2/2 extensive pneumonia. continue to wean oxygen as tolerated. (3) Pneumonia: Status: Acute Code(s): J18.9 - Pneumonia, unspecified organism Plan: suspected gram negative extensive bilateral infiltrate. completed 10-days of pip/tazo and vancomycin Plan HTN: amlodipine CAD: stable. continue DAPT, atorvastatin hypothyroidism: levothyroxine VTE prophylaxis: LMWH. Dispo: to SNF. Medications at Discharge Home Medications multivitamin 1 tab PO DAILY vitamin 02/22/21 aspirin 81 mg tablet,delayed release 81 mg PO DAILY@0800 [facility] [employer] #0 tabs 02/27/21 nitroglycerin 0.4 mg sublingual tablet 0.4 mg sublingual Q5-15M PRN chest pain 10 days #25 tabs 03/01/21 magnesium 250 mg tablet 250 mg PO DAILY Check with primary doctor 05/30/21 vitamin E (dl, acetate) 180 mg (400 unit) capsule 180 mg PO DAILY Check with primary doctor 05/30/21 ascorbic acid (vitamin C) 500 mg capsule 1,000 mg PO BID supplement 08/29/21 coenzyme Q10 100 mg capsule 200 mg PO DAILY coenzyme 08/29/21 furosemide 40 mg tablet See Rx Instructions .Route .COMPLEX PRN swelling 12/30/22 metoprolol succinate 25 mg tablet,extended release 24 hr 25 mg PO BID #180 tabs 11/07/23 losartan 50 mg tablet 50 mg PO DAILY Check with primary doctor 01/12/24 atorvastatin 40 mg tablet 40 mg PO DAILY #90 tabs 08/14/24 isosorbide mononitrate 30 mg tablet,extended release 24 hr 30 mg PO BID #180 tabs 01/28/24 folic acid 400 mcg tablet 0.4 mg PO QDAY 05/12/24 selenium 200 mcg capsule 200 mcg PO QDAY 05/12/24 clopidogrel 75 mg tablet See Rx Instructions .Route .COMPLEX #90 TABLETS 05/17/24 amlodipine 10 mg tablet 10 mg PO DAILY 09/06/24 levothyroxine 88 mcg tablet 88 mcg PO DAILY 09/06/24 acetaminophen 325 mg tablet 650 mg (2 x 325 mg) PO Q6H PRN PRN Pain 1-10 Or Fever >100.7 #0 tabs 09/20/24 enoxaparin 40 mg/0.4 mL subcutaneous syringe 40 mg (0.4 mL) subcut DAILY@0600 #0 mL 09/20/24 prednisone 20 mg tablet 40 mg (2 x 20 mg) PO BREAKFAST #10 tabs 09/20/24 Hospital Course Operations None Procedures None Weight / BMI Weight Weight: 67.5 kg Body Mass Index (BMI) 27.2 ABG / Lab / Microbiology Data 09/20/24 05:31 09/20/24 05:31 Laboratory: Laboratory Results - last 24 hr 09/20/24 05:31: WBC 12.8 H, RBC 3.56 L, Hgb 10.8 L, Hct 32.9 L, MCV 92.4, MCH 30.3, MCHC 32.8, RDW Std Deviation 52.1 H, RDW Coeff of Martha 15.6 H, Plt Count 319, MPV 10.5, Immature Gran % (Auto) 2.600 H, Neut % (Auto) 82.9 H, Lymph % (Auto) 10.0 L, Green % (Auto) 4.2, Eos % (Auto) 0.0, Baso % (Auto) 0.3, Absolute Neuts (auto) 10.6 H, Absolute Lymphs (auto) 1.28, Nucleated RBC % 0, Sodium 138, Potassium 4.7, Chloride 106, Carbon Dioxide 23.3, Anion Gap 9, BUN 28 H, Creatinine 0.71, Estim Creat Clear Calc 45.47 L, Est GFR (MDRD) Non-Af 83, BUN/Creatinine Ratio 39.9 H, Glucose 205 H, Calcium 8.3, Phosphorus 2.3 L, Magnesium 2.3 H Microbiology: Microbiology 09/18/24 11:45 Nasal Secretion MRSA (PCR) - Final 09/06/24 14:25 Blood Culture (Wb) - Anticubital Left Blood Culture - Final No growth in 5 days. 09/06/24 14:20 Blood Culture (Wb) - Anticubital Right Blood Culture - Final No growth in 5 days. 09/06/24 15:37 Urine Catheter - [place] Urine Culture - Final Klebsiella pneumoniae sp pneum 09/06/24 23:50 Mucosa - Nasopharyngeal Respiratory Panel (PCR) - Final 09/06/24 20:40 Urine Catheter - [place] Streptococcus pneumoniae Antigen (M - Final 09/06/24 20:40 Urine Catheter - [place] Legionella Antigen - Final 09/06/24 14:33 Mucosa - Nose SARS-CoV-2, Influenza & RSV (PCR) - Final D/C Instructions Discharge Diet: No restrictions DC O2, CPAP, BIPAP Needs Home O2 Discharge instructions: No Meaningful Use Info Meaningful Use Meaningful Use Diagnoses (Choose all that apply): None applicable Ischemic Stroke Statin Dosing Therapy Reference: STATIN DOSE THERAPY REFERENCE: * Patients > 75 years receive moderate or high dose statin therapy. * Patients 75 years or YOUNGER should receive HIGH intensity statin dose unless contraindicated. You will be required to document reason for non-treatment if statin daily dose does not meet guidelines. HIGH DOSE STATIN THERAPY DAILY Atorvastatin > than or = to 40 mg Rosuvastatin > than or = to 20 mg Amlodipine + Atorvastatin > than or = to 2.5/40 mg Ezetimibe + Simvastatin 10/80 mg Simvastatin 80mg Discharge Plan Admission Admit Date/Time: 09/06/24 18:29 Primary Reason for Your Visit: Pneumonia Attending Provider: Arcadio Dillard Primary Care Provider: Alicia Mata Consulting Providers: Emmy Keller; Ritchie Verduzco; Aime Flores Discharge Orders/Prescriptions Prescriptions: New acetaminophen 325 mg Tablet 650 mg PO Q6H PRN PRN (Reason: Pain 1-10 Or Fever >100.7) Qty: 0 0RF prednisone 20 mg Tablet 40 mg PO BREAKFAST Qty: 10 0RF enoxaparin 40 mg/0.4 mL Syringe 40 mg subcut DAILY@0600 Qty: 0 0RF Continued vitamin E (dl, acetate) 180 mg (400 unit) capsule 180 mg PO DAILY magnesium 250 mg tablet 250 mg PO DAILY furosemide 40 mg tablet See Rx Instructions .ROUTE .COMPLEX PRN (Reason: swelling) Dose Instruction: take 1 tablet by mouth once daily Rx Instructions: take 1 tablet by mouth once daily PRN; losartan 50 mg tablet 50 mg PO DAILY folic acid 400 mcg tablet 0.4 mg PO QDAY selenium 200 mcg capsule 200 mcg PO QDAY ascorbic acid (vitamin C) 500 mg capsule 1,000 mg PO BID coenzyme Q10 100 mg capsule 200 mg PO DAILY multivitamin Tablet 1 tab PO DAILY aspirin 81 MG tablet 81 mg PO DAILY@0800 Qty: 0 0RF levothyroxine 88 mcg tablet 88 mcg PO DAILY amlodipine 10 mg tablet 10 mg PO DAILY Rx Instructions: pt states pcp told her to take bid nitroglycerin 0.4 mg tablet, sublingual 0.4 mg SUBLINGUAL Q5-15M PRN (Reason: chest pain) 10 Days Qty: 25 3RF metoprolol succinate 25 mg tablet extended release 24 hr 25 mg PO BID Qty: 180 3RF atorvastatin 40 mg tablet 40 mg PO DAILY Qty: 90 3RF isosorbide mononitrate 30 mg tablet extended release 24 hr 30 mg PO BID Qty: 180 3RF clopidogrel 75 mg tablet See Rx Instructions .ROUTE .COMPLEX Qty: 90 3RF Dose Instruction: take 1 tablet by mouth once daily Rx Instructions: take 1 tablet by mouth once daily Referrals / Follow Up: Alicia Mata NP-C [Primary Care Provider] - Within 2 Weeks Disposition Disposition (needs filled in before D/C Order can be placed): Longterm Facility Charges/Coding Visit Charges Inpatient E&M: 29239 Disch Hosp
--- NOTE | 2024-09-20 14:45 | PHA.DC_ITS ---
Pharmacy IN Med Reconciliation Pharmacy Service has performed discharge medication reconciliation for this patient. The patient's discharge medication list was reviewed for discrepancies and discrepancies were resolved. Medications at Discharge Home Medications multivitamin 1 tab PO DAILY vitamin 02/22/21 aspirin 81 mg tablet,delayed release 81 mg PO DAILY@0800 [facility] #0 tabs 02/27/21 nitroglycerin 0.4 mg sublingual tablet 0.4 mg sublingual Q5-15M PRN chest pain 10 days #25 tabs 03/01/21 magnesium 250 mg tablet 250 mg PO DAILY Check with primary doctor 05/30/21 vitamin E (dl, acetate) 180 mg (400 unit) capsule 180 mg PO DAILY Check with primary doctor 05/30/21 ascorbic acid (vitamin C) 500 mg capsule 1,000 mg PO BID supplement 08/29/21 coenzyme Q10 100 mg capsule 200 mg PO DAILY coenzyme 08/29/21 furosemide 40 mg tablet See Rx Instructions .Route .COMPLEX PRN swelling 0 12/30/22 metoprolol succinate 25 mg tablet,extended release 24 hr 25 mg PO BID #180 tabs 11/07/23 losartan 50 mg tablet 50 mg PO DAILY Check with primary doctor 01/12/24 atorvastatin 40 mg tablet 40 mg PO DAILY #90 tabs 01/28/24 isosorbide mononitrate 30 mg tablet,extended release 24 hr 30 mg PO BID #180 tabs 01/28/24 folic acid 400 mcg tablet 0.4 mg PO QDAY 05/12/24 selenium 200 mcg capsule 200 mcg PO QDAY 05/12/24 clopidogrel 75 mg tablet See Rx Instructions .Route .COMPLEX #90 TABLETS 05/17/24 amlodipine 10 mg tablet 10 mg PO DAILY 09/06/24 levothyroxine 88 mcg tablet 88 mcg PO DAILY 09/06/24 acetaminophen 325 mg tablet 650 mg (2 x 325 mg) PO Q6H PRN PRN Pain 1-10 Or Fever >100.7 #0 tabs 09/20/24 enoxaparin 40 mg/0.4 mL subcutaneous syringe 40 mg (0.4 mL) subcut DAILY@0600 #0 mL 09/20/24 prednisone 20 mg tablet 40 mg (2 x 20 mg) PO BREAKFAST #10 tabs 09/20/24
--- NOTE | 2024-09-20 14:53 | CASEMGMT ---
Therapy said it would be beneficial if patient went to TCU. SW met with patient and she confirmed she wants to go to TCU. SW notified physician. Plan: d/c to [facility] TCU under skilled level of care. Tracy CHAMBERS
--- NOTE | 2024-09-20 15:17 | NURSING ---
report called to donavan in TCU
== END 2024-09-20 16:12 | disposition skilled nursing facility (03) | DRG 871 ==
LOC: ED 15:44 → ICU 09-07 07:13 → PCU 09-07 16:20
PROVIDERS: Family Medicine; Internal Medicine; Internal Medicine Critical Care Medicine; Internal Medicine Pulmonary Disease; Admitting Provider Internal Medicine; Emergency Provider Emergency Medicine; PCP Nurse Practitioner Family; Referring Provider Emergency Medicine
DX: A41.9 Sepsis, unspecified organism (principal); J18.9 Pneumonia, unspecified organism; J96.01 Acute respiratory failure with hypoxia; I50.33 Acute on chronic diastolic (congestive) heart failure; G93.41 Metabolic encephalopathy; I13.0 Hypertensive heart and chronic kidney disease with heart failure and stage 1 through stage 4 chronic kidney disease, or unspecified chronic kidney disease; B37.0 Candidal stomatitis; N39.0 Urinary tract infection, site not specified; N18.32 Chronic kidney disease, stage 3b; E03.9 Hypothyroidism, unspecified; Z95.3 Presence of xenogenic heart valve; I25.10 Atherosclerotic heart disease of native coronary artery without angina pectoris; G47.33 Obstructive sleep apnea (adult) (pediatric); E78.00 Pure hypercholesterolemia, unspecified; Z95.5 Presence of coronary angioplasty implant and graft; Z79.890 Hormone replacement therapy; Z86.16 Personal history of COVID-19; Z79.02 Long term (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 antithrombotics/antiplatelets; Z79.82 Long term (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 aspirin; Z82.49 Family history of ischemic heart disease and other diseases of the circulatory system; Z11.52 Encounter for screening for COVID-19; B96.1 Klebsiella pneumoniae [K. pneumoniae] as the cause of diseases classified elsewhere; R01.1 Cardiac murmur, unspecified; Z91.041 Radiographic dye allergy status
CPT/HCPCS: 36415; 36600; 51702; 71045; 71275; 80048; 80053; 80202; 81001; 82803; 83605; 83735; 83880; 84100; 84145; 85025; 85610; 85730; 87040; 87077; 87086; 87088; 87186; 87449; 87631; 87633; 87641; 93005; 94002; 94003; 94640; 94660; 94762; 97110; 97116; 97162; 97166; 97530; 97535; 97803; 99285; Q9967; A4216; J0696; J1940

== ENCOUNTER 2024-09-20 16:14 | Inpatient (IN) | payer MEDICARE, OTHER, SELFPAY ==
[2023-11-17 10:44] VITALS: BMI 26.2
[2024-09-20 16:16] VITALS: BP 154/58; PULSE 70; RESP 16; TEMP 36.6; O2SAT 93
[2024-09-20 16:31] VITALS: BMI 26.4
[2024-09-20 17:29] VITALS: O2SAT 92
--- NOTE | 2024-09-20 19:16 | HP.PCM_ITS ---
HPI - General General Date of Admission: 09/20/24 Date of Service: 09/20/24 Chief Complaint: Here for rehabilitation. HPI Narrative PRECIOUS LEIGH, is a 88 Female who presents with followin09/06/2024 [facility] ED shortness of breath. Chills, fever, decreased oral intake, productive cough for several days. Urinalysis consistent with urinary tract infection. Sepsis, acute respiratory failure with hypoxia, pneumonia, acute kidney injury, urinary tract infection. 09/06/2024 Admit [facility]. Rocephin IV, Zithromax IV for bilateral pneumonia/urinary tract infection. 09/07/2024 Breathing better, oxygen weaned to 8 liters per nasal cannula. covid negative, respiratory panel negative, urine strep negative, urine legionella negative. Metoprolol lowered 2/ bradycardia. 09/08/2024 BiPAP, Lasix given for elevated BNP. Rocephin, Zithromax for bilateral pneumonia. 09/09/2024 Feeling better, breathing better on AirVO. Vancomycin, Zosyn, steroids for bilateral pneumonia, sarcoidosis. 08/21/2024 Oxygen requirements improved. Continue Vancomycin, Zosyn, Hold Lasix for bilateral pneumonia. 09/11/2024 Feeling better, improved on AirVO, WBC improved. Urine culture growing Klebsiella. Continue Vancomycin, Zosyn. 09/12/2024 Improving, AirVO FiO2 decreasing. Change Solu-medrol IV to prednisone PO. 09/13/2024 AirVO. Vancomycin, Zosyn for bilateral pneumonia. Vancomycin, Zosyn for Klebsiella UTI. 09/14/2024 High flow oxygen 5 liters. WBC elevated. CTA chest showed bilateral airspace disease, chronic scarring. Bronchiectasis. Vancomycin, Zosyn for bilateral pneumonia, UTI. 09/15/2024 Oxygen 2 liters per NC, weak, consider discharge to SNF. WBC 15.9. Vancomycin, Zosyn for pneumonia, UTI. 09/17/2024 Hypoxia persists, order home oxygen. Vancomycin, Zosyn for pneumonia, UTI. 09/18/2024 Oxygen, Flat affect. WBC trending down, oxygen 2 liters per NC. 09/19/2024 Pulsox 82% on room air. Oxygen needs fluctuate. 09/20/2024 Feels well, wean oxygen as tolerated. Completed 10 days of Vancomycin, Zosyn. 09/20/2024 Admit to TCU with debility, here for rehabilitation, strengthening, prior to discharge home with . Room air. [facility] Medical History (Updated 09/20/24 @ 19:[address] Gt Calvo MD) Sarcoidosis COVID-19 Hemolytic anemia Anemia Non-ST elevation (NSTEMI) myocardial infarction Elevated troponin Hypertension Wears glasses Wears dentures Thyroid disease High cholesterol Non-smoker BiPAP (biphasic positive airway pressure) dependence On home oxygen therapy Shortness of breath on exertion Loss of appetite Chronic cough History of echocardiogram History of stress test Cardiology follow-up encounter Chronic hypoxemic respiratory failure Mediastinal lymphadenopathy Acute febrile illness Essential hypertension Angina pectoris Chest pain ABDIAS (obstructive sleep apnea) Anginal equivalent Nonrheumatic mitral (valve) insufficiency Nonrheumatic aortic (valve) insufficiency Nonrheumatic aortic (valve) stenosis Carotid artery disease Atherosclerotic heart disease of [place] coronary artery without angina pectoris CAD (coronary artery disease) Valvular heart disease Hypothyroidism Aortic insufficiency Hyperlipidemia Home Medications ?Medication ?Instructions ?Recorded ?Last Taken ?Type multivitamin 1 tab PO DAILY vitamin 02/2209/06/24 History aspirin 81 mg tablet,delayed 81 mg PO DAILY@0800 [facility] 02/27/21 09/20/24 Rx release #0 tabs nitroglycerin 0.4 mg sublingual 0.4 mg sublingual Q5-1 5M PRN chest 03/01/21 Unknown Rx tablet pain 10 days #25 tabs magnesium 250 mg tablet 250 mg PO DAILY Check with p rimary 05/30/21 09/20/24 History doctor vitamin E (dl, acetate) 180 mg 180 mg PO DAILY Check w ith primary 05/30/21 09/06/24 History (400 unit) capsule doctor ascorbic acid (vitamin C) 500 mg 1,000 mg PO BID suppl ement 08/29/21 09/06/24 History capsule coenzyme Q10 100 mg capsule 200 mg PO DAILY coenzyme 0 08/29/21 09/06/24 History furosemide 40 mg tablet 40 mg PO DAILY PRN swelling 12/30/22 Unknown History metoprolol succinate 25 mg 25 mg PO BID BP #180 tabs 0 11/07/23 09/20/24 Rx tablet,extended release 24 hr losartan 50 mg tablet 50 mg PO DAILY Check with pr imary 01/12/24 09/20/24 History doctor atorvastatin 40 mg tablet 40 mg PO DAILY Cholestrol #9 0 tabs 01/28/24 09/20/24 Rx isosorbide mononitrate 30 mg 30 mg PO BID CAD #180 tab s 01/28/24 09/20/24 Rx tablet,extended release 24 hr folic acid 400 mcg tablet 0.4 mg PO QDAY supplement 09/06/24 History selenium 200 mcg capsule 200 mcg PO QDAY Supplement 1 07/12/23 09/06/24 History amlodipine 10 mg tablet 10 mg PO DAILY BP 09/06/24 0 09/20/24 History levothyroxine 88 mcg tablet 88 mcg PO DAILY Thyroid 09/20/24 History acetaminophen 325 mg tablet 650 mg (2 x 325 mg) PO Q6H PRN PRN 09/20/24 Unknown Rx Pain 1-10 Or Fever >100.7 #0 tabs clopidogrel 75 mg tablet 75 mg PO DAILY supplement 09/20/24 History enoxaparin 40 mg/0.4 mL 40 mg (0.4 mL) subcut DAILY@ 0600 09/20/24 09/20/24 Rx subcutaneous syringe Blood thinner #0 mL prednisone 20 mg tablet 40 mg (2 x 20 mg) PO BREAKFA ST 09/20/24 Unknown Rx Steroid #10 tabs Allergy/AdvReac Type Severity Reaction Status Date / Time Iodinated Contrast Media Allergy Intermediate Rash Verified 09/06/24 13:45 (Iodinated Contrast- Oral and IV Dye) ramipril (From Altace) AdvReac Severe cough Verified 09/06/24 13:45 ticagrelor (From Brilinta) AdvReac Dyspnea Verified 09/06/24 13:45 Family History Mother , Age 63 Myocardial infarction Father , Age 28 Colon cancer Other Heart disease Surgical History H/O cataract removal with insertion of prosthetic lens S/P TAVR (transcatheter aortic valve replacement) Hx of colonoscopy History of cardiac catheterization History of axillary surgery History of percutaneous transluminal coronary angioplasty (04/16/19) Presence of stent in coronary artery (04/09/21) History of cholecystectomy Social History (Updated 09/20/24 @ 19:[address] Gt Calvo MD) household members: spouse Smoking Status: Never smoker second hand exposure: No alcohol intake: never substance use type: does not use caffeine: Yes Type: coffee Number of servings: 1 what type of physical activity do you participate in: none frequency: does not exercise ROS Constitutional Constitutional: Denies chills, fever(s) or weight gain ENT HEENT: Denies headache(s), nasal congestion or nasal discharge Cardiovascular Cardiovascular: Denies chest pain or palpitations Respiratory/Chest Respiratory/Chest: Denies cough, excessive phlegm production or shortness of breath with exertion Gastrointestinal Gastrointestinal: Denies abdominal pain, nausea or vomiting Genitourinary Genitourinary: Denies dysuria Musculoskeletal Musculoskeletal: Denies joint pain or joint swelling Integumentary Integumentary: Denies rash or wounds Neurologic Neurologic: Denies focal weakness, numbness or tingling Psychiatric Psychiatric: Denies anxiety, auditory hallucinations, depression, homicidal ideation or suicidal ideation Vital Signs Vital Signs Vital Signs: 09/20/24 16:16 09/20/24 16:36 09/20/24 17:29 Temperature 97.9 F Temperature Source Temporal Pulse Rate 70 Pulse Rhythm Regular Pulse Strength Normal (2+) Normal (2+) Respiratory Rate 16 Respiratory Effort Normal Non-Labored Respiratory Depth Normal Respiratory Pattern Normal Blood Pressure 154/58 H Blood Pressure Mean 90 Blood Pressure Source Monitor Blood Pressure Position Sitting Blood Pressure Location Right Arm Pulse Ox 93 92 Oxygen Delivery Method Room Air Room Air Weight Weight: 65.402 kg Body Mass Index (BMI) 26.4 Physical Exam Const alert General Appearance: cooperative HEENT normocephalic Eyes PERRL and EOMs intact bilaterally Neck supple, no JVD and no carotid bruits Resp normal respiratory effort, normal air movement and clear to auscultation bilaterally Cardio regular rate and regular rhythm GI normal to inspection, nondistended, normoactive bowel sounds, non-tender and non-distended Extremity normal capillary refill General Extremity: Negative for edema Skin no rashes or lesions noted General Skin Exam: no breakdown Psych affect normal Appearance: appropriate Assessment & Plan Assessment/Plan (1) Debility: (2) Sepsis: (3) Acute hypoxic respiratory failure: (4) Bilateral pneumonia: (5) UTI due to Klebsiella species: (6) CAD (coronary artery disease): QUALIFIERS: Associated angina: angina presence unspecified Coronary Disease-Associated Artery/Lesion type: unspecified vessel or lesion type [place] vs. transplanted heart: unspecified whether [place] or transplanted heart Qualified Code(s): I25.10 - Atherosclerotic heart disease of [place] coronary artery without angina pectoris (7) AIHA (autoimmune hemolytic anemia): (8) Essential (primary) hypertension: (9) Hyperlipidemia: QUALIFIERS: Hyperlipidemia type: unspecified Qualified Code(s): E78.5 - Hyperlipidemia, unspecified (10) Sarcoidosis: (11) ABDIAS (obstructive sleep apnea): (12) Hypomagnesemia: (13) Hypothyroidism: QUALIFIERS: Hypothyroidism type: unspecified Qualified Code(s): E03.9 - Hypothyroidism, unspecified PLAN: Plan 88 year old female with below past medical history hospitalized for sepsis, acute respiratory failure with hypoxia 2/2 bilateral pneumonia, complicated by Klebsiella urinary tract infection, admitted to TCU with debility, here for rehabilitation, strengthening, prior to discharge home with . * Debility - PT/OT. * Pain - Tylenol 1000mg q6 prn pain (1-10). * Bowel - senna/colace 1 tablet bid, Magnesium citrate 300mL daily prn. * Adult immunization - Administer pneumonia vaccine, covid vaccine, flu vaccine as appropriate. * DVT prophylaxis - Lovenox 40mg sc daily. * Hypertension - Metoprolol succinate 25mg bid, Losartan 50mg daily, Amlodipine 10mg daily. * Vitamin C deficiency - Vitamin C 1000mg bid. * Coronary artery disease - Metoprolol succinate 25mg bid, Losartan 50mg daily, Isosorbide [place] 30mg bid, Plavix 75mg daily, Aspirin 81mg daily, NTG 0.4mg sl q5m prn. * Hyperlipidemia - Atorvastatin 40mg qhs. * Folate deficiency - Folic acid 0.5mg daily. * Edema - Furosemide 40mg daily prn. * Hypothyroidism - Levothyroxine 88mcg daily. * Hypomagnesemia - Magnesium chloride 128mg daily. * Nutrition - MVI 1 tablet daily. * Sarcoidosis - Prednisone 40mg taper. * Fatty liver - Vitamin E 400IU daily.
[2024-09-20 21:04] VITALS: BP 160/64; PULSE 69; RESP 16; TEMP 36.6; O2SAT 93
[2024-09-20] MEDS: Ascorbic Acid 500 MG Tablet 1000 MG PO (21:07)
[2024-09-20 21:08] VITALS: BP 160/64; PULSE 69
[2024-09-20] MEDS: Metoprolol(XL)Succ 25 MG Tablet PO (21:08)
[2024-09-20] MEDS: Isosorbide Mononitrate 30 MG Tablet PO (21:16)
[2024-09-21] VITALS (10 sets, daily range): BP systolic 138–157; BP diastolic 55–63; PULSE 59–69; RESP 16–18; TEMP 36.4–36.9; O2SAT 92–95; BMI 26.5
[2024-09-21] MEDS: Enoxaparin 40 MG/0.4 ML Syringe SC (05:50)
[2024-09-21] MEDS: Levothyroxine 88 MCG Tablet PO (05:50)
--- NOTE | 2024-09-21 07:58 | PHA.CONS_ITS ---
Documented by User: Brody Baldwin 09/21/24 08:20 TCU RX Drug Regimen Review Subjective/Objective Subjective/Objective Subjective: TCU admission note. 88 year old female with below past medical history hospitalized for sepsis, acute respiratory failure with hypoxia 2/2 bilateral pneumonia, complicated by Klebsiella urinary tract infection, admitted to TCU with debility, here for rehabilitation, strengthening, prior to discharge home with . Objective: Allergies Iodinated Contrast Media (Iodinated Contrast- Oral and IV Dye) Allergy (Intermediate, Verified 09/06/24 13:45) Rash ramipril (From Altace) Adverse Reaction (Severe, Verified 09/06/24 13:45) cough ticagrelor (From Brilinta) Adverse Reaction (Verified 09/06/24 13:45) Dyspnea Current Medications Generic Name Dose Route Start Last Admin Trade Name Freq PRN Reason Stop Dose Admin Acetaminophen 1,000 mg 09/20/24 19:37 Acetaminophen 500 Mg Tablet PO Q6H PRN PRN Pain Score 1-10 Amlodipine Besylate 10 mg 09/21/24 10:00 Amlodipine 10 Mg Tablet PO DAILY [facility] Protocol Ascorbic Acid 1,000 mg 09/20/24 22:00 09/20/24 21:07 Ascorbic Acid 500 Mg Tablet PO 1,000 mg BID LUDIN Administration Aspirin 81 mg 09/21/24 08:00 Aspirin 81 Mg Tab.Chew PO BREAKFAST [facility] Atorvastatin Calcium 40 mg 09/21/24 10:00 Atorvastatin Calcium 40 Mg Tablet PO DAILY [facility] Clopidogrel Bisulfate 75 mg 09/21/24 10:00 Clopidogrel Bisulfate 75 Mg Tablet PO DAILY [facility] Enoxaparin Sodium 40 mg 09/21/24 06:00 09/21/24 05:50 Enoxaparin 40 Mg/0.4 Ml Syringe SC 40 mg DAILY@0600 [facility] Administration Folic Acid 0.5 mg 09/21/24 08:00 Folic Acid 1 Mg Tablet PO BREAKFAST LUDIN Furosemide 40 mg 09/20/24 16:38 Furosemide 40 Mg Tablet PO DAILY PRN PRN swelling Protocol Isosorbide Mononitrate 30 mg 09/20/24 22:00 09/20/24 21:16 Isosorbide Mononitrate 30 Mg Tablet PO 30 mg BID LUDIN Administration Protocol Levothyroxine Sodium 88 mcg 09/21/24 06:00 09/21/24 05:50 Levothyroxine 88 Mcg Tablet PO 88 mcg DAILY@0600 LUDIN Administration Losartan Potassium 50 mg 09/21/24 10:00 Losartan Potassium 50 Mg Tablet PO DAILY [facility] Protocol Magnesium Chloride 128 mg 09/21/24 10:00 Magnesium Chloride 64 Mg Delay Rel.Tablet PO DAILY LUDIN Magnesium Citrate 300 ml 09/20/24 19:36 Magnesium Citrate 300 Ml PO DAILY PRN Constipation Metoprolol Succinate 25 mg 09/20/24 22:00 09/20/24 21:08 Metoprolol(Xl)Succ 25 Mg Tablet PO 25 mg BID [facility] Administration Protocol Multivitamins 1 tablet 09/21/24 12:00 Multivitamins,Therapeutic Tablet PO LUNCH [facility] Nitroglycerin 0.4 mg 09/20/24 16:38 Nitroglycerin (Inpatient Use) 0.4 Mg Tab.Subl SL Q5M PRN chest pain Prednisone 40 mg 09/21/24 08:00 Prednisone 20 Mg Tablet PO 09/30/24 08:01 BREAKFAST [facility] Senna/Docusate Sodium 1 tablet 09/20/24 22:00 09/20/24 21:08 Senna/Docusate Sodium 1 Tablet PO Not Given BID [facility] Sodium Chloride 10 - 40 ml 09/20/24 16:26 0.9% Saline Lock 10 Ml Syringe IV UD PRN SALINE FLUSH Tuberculin PPD 0.1 ml 09/21/24 10:00 Tuberculin,Purif.Prot.Deriv. 50 Tu/Ml Vial ID 09/21/24 10:01 X1 ONE Tuberculin PPD 0.1 ml 09/28/24 10:00 Tuberculin,Purif.Prot.Deriv. 50 Tu/Ml Vial ID 09/28/24 10:01 X1 ONE Vitamin E 400 units 09/21/24 08:00 Vitamin E 400 Units Capsule PO BREAKFAST [facility] Problem List Hypomagnesemia (Acute) Sarcoidosis (Acute) Essential (primary) hypertension (Acute) UTI due to Klebsiella species (Acute) Debility (Acute) Sepsis (Acute) Acute hypoxic respiratory failure (Acute) Bilateral pneumonia (Acute) AIHA (autoimmune hemolytic anemia) (Chronic) Hyperlipidemia (Acute) CAD (coronary artery disease) (Acute) ABDIAS (obstructive sleep apnea) (Chronic) Hypothyroidism (Chronic) Vital Signs Temp Pulse Resp BP Pulse Ox O2 Del Method 97.6 F L 59 L 16 157/63 H 93 Room Air 09/21/24 07:36 09/21/24 07:36 09/21/24 07:36 09/21/24 07:36 09/21/24 07:36 09/21/24 07:36 Oxygen Delivery Method Room Air Weight: 65.402 kg Body Mass Index (BMI) 26.4 Assessment/Plan: 1. Pain: acetaminophen 1000 mg PO Q6H PRN pain (1-10). The patient has not required any PRN doses of acetaminophen so far this admission. Please continue to monitor pain levels, PRN medication usage, and LFTs (AST/ALT = 127/119 U/L on 09/07/24). 2. Bowel: senna/docusate 1 tablet PO BID, magnesium citrate 300 mL PO daily PRN constipation. The patient has not required any PRN doses of magnesium citrate so far this admission and the patient's last bowel movement was 09/21/24. Please continue to monitor for PRN medication usage, bowel movements, constipation and diarrhea. 3. DVT prophylaxis: enoxaparin 40 mg SC daily. Please continue to monitor for s/s of a DVT such as pain/swelling/erythema in an extremity, renal function (serum creatinine = 0.71 mg/dL with creatinine clearance ~ 45 mL/min on 09/20/24), hemoglobin levels (Hgb = 10.8 g/dL) platelet counts (Plt = 319 K/mm3 on 09/20/24), and for s/s of bleeding. 4. Hypertension/CAD: aspirin 81 mg PO daily, amlodipine 10 mg PO daily, nitroglycerin 0.4 mg PO Q5M PRN chest pain, clopidogrel 75 mg PO daily, isosorbide mononitrate 30 mg PO BID, losartan 50 mg PO daily, metoprolol succinate 25 mg PO BID. The patient has not required any PRN nitroglycerin usage so far this admission. Please continue to monitor blood pressures (recent range = 142-166/51-68 mmHg), heart rates (recent range = 59-74 BPM), for GI distress with aspirin administration, platelet counts (Plt = 319 K/mm3 on 09/20/24), for s/s of bleeding/excessive bruising, for lower extremity swelling, for chest pain, for PRN medication usage, renal function (serum creatinine = 0.71 mg/dL with creatinine clearance ~ 45 mL/min on 09/20/24), potassium levels (K = 4.7 mmol/L on 09/20/24), sodium levels (Na = 138 mmol/L on 09/20/24), and for fatigue. The patient's blood pressures have been elevated over the past several days, please consider increasing the patient's losartan to 100 mg PO daily to help control blood pressures. 5. Hyperlipidemia: atorvastatin 40 mg PO QHS. Please continue to monitor lipid levels (cholesterol = 93 mg/dL with LDL = 32 mg/dL on 07/29/23), LFTs (AST/ALT = 127/119 U/L on 09/07/24), and for myalgias. 6. Edema: furosemide 40 mg PO daily PRN swelling. The patient has not required any PRN doses of furosemide so far this admission. Please continue to monitor for swelling, for PRN medication usage, renal function (serum creatinine = 0.71 mg/dL with creatinine clearance ~ 45 mL/min on 09/20/24), potassium levels (K = 4.7 mmol/L on 09/20/24), sodium levels (Na = 138 mmol/L on 09/20/24), and calcium levels (Ca = 8.3 mg/dL on 09/20/24). 7. Hypothyroidism: levothyroxine 88 mcg PO daily. Please continue to monitor thyroid hormone levels (TSH = 1 uIU/mL with T4 = 1.50 ng/dL on 08/31/24), as well as for s/s of hypo/hyperthyroidism. 8. Sarcoidosis: prednisone taper through 09/30. Please continue to monitor for inflammation, blood pressures (recent range = 142-166/51-68 mmHg), blood glucose levels (BG = 205 mg/dL on 09/20/24), for GI distress, and for difficulty sleeping. While on prednisone it appears the patient's blood glucose levels have been elevated. Please consider checking an additional blood glucose level sometime a fter 09/30 to ensure that the patient's blood glucose levels return to normal after stopping prednisone. 9. Hypomagnesemia: magnesium chloride 128 mg PO daily. Please continue to monitor magnesium levels (Mg = 2.3 mg/dL on 09/20/24), and for s/s of hypomagnesemia. 10. Vitamin C deficiency: ascorbic acid 1000 mg PO BID. Please continue to monitor for s/s of vitamin C deficiency. 11. Folate deficiency: folic acid 0.5 mg PO daily with breakfast. Please continue to monitor folate levels (folate = 75 ng/mL on 01/12/24), and for s/s of folate deficiency. 12. Fatty liver: vitamin E 400 IU daily. Please continue to monitor fatty liver. 13. Nutrition: multivitamin 1 tablet PO daily with lunch. Please continue to monitor overall nutritional status. Assessment/Plan for indications treated with psychotropic medications: NA Medical chart and medication regimen reviewed. The following medication irregularities or issues were identified: 1. Hypertension/CAD: aspirin 81 mg PO daily, amlodipine 10 mg PO daily, nitroglycerin 0.4 mg PO Q5M PRN chest pain, clopidogrel 75 mg PO daily, isosorbide mononitrate 30 mg PO BID, losartan 50 mg PO daily, metoprolol succinate 25 mg PO BID. The patient's blood pressures have been elevated over the past several days, please consider increasing the patient's losartan to 100 mg PO daily to help control blood pressures. 2. Sarcoidosis: prednisone taper through 09/30. While on prednisone it appears the patient's blood glucose levels have been elevated. Please consider checking an additional blood glucose level sometime after 09/30 to ensure that the patient's blood glucose levels return to normal after stopping prednisone. Date Date of Note: 09/21/24 Documented by User: Dr. Gt Calvo MD 09/21/24 08:28 TCU RX Drug Regimen Review Provider Comments Provider responsibility Provider Comments to Recommendations by Pharmacy Agree
[2024-09-21] MEDS: Vitamin E 400 UNITS Capsule PO (09:17)
[2024-09-21] MEDS: Aspirin 81 MG TAB.CHEW PO (09:17)
[2024-09-21] MEDS: predniSONE 20 MG Tablet 40 MG PO (09:17)
[2024-09-21] MEDS: Metoprolol(XL)Succ 25 MG Tablet PO ×2 (09:17→19:57)
[2024-09-21] MEDS: Ascorbic Acid 500 MG Tablet 1000 MG PO ×2 (09:17→19:56)
[2024-09-21] MEDS: Magnesium Chloride 64 MG Delay Rel.Tablet 128 MG PO (09:18)
[2024-09-21] MEDS: Isosorbide Mononitrate 30 MG Tablet PO ×2 (09:19→19:57)
[2024-09-21] MEDS: Folic Acid 1 MG Tablet 0.5 MG PO (09:19)
[2024-09-21] MEDS: amLODIPine 10 MG Tablet PO (09:19)
[2024-09-21] MEDS: Clopidogrel Bisulfate 75 MG Tablet PO (09:19)
[2024-09-21] MEDS: Atorvastatin Calcium 40 MG Tablet PO (09:21)
[2024-09-21 09:49] LABS: Absolute Lymphocyte Count 2.53 X10^3/uL (0.83-4.51); Absolute Neutrophil Count 7.8 X10^3/uL (2.0-7.7); Basophil# 0.04 X10^3/uL; Basophil% 0.3 % (0-1); Eosinophil# 0.26 X10^3/uL; Eosinophils% 2.3 % (0-5); Hematocrit 33.2 % (37-47); Hemoglobin 10.8 g/dL (12.0-15.0); Lymphocyte # 2.53 X10^3/ul (0.83-4.51); Lymphocyte % 21.9 % (19-41); Mean Corp Hgb Conc 32.5 g/dL (32-36); Mean Corpuscular Hgb 30.1 pg (27.0-32.0); Mean Corpuscular Volume 92.5 fL (81-99); Mean Platelet Vol. 10.2 fl (6.2-12.0); Monocyte# 0.63 X10^3/uL; Monocyte% 5.5 % (0-10); NRBC Flagged by Analyzer 0.2 % (0-5); Neutrophil # 7.77 X10^3/uL (2.7-7.7); Neutrophil % 67.3 % (47-70); Platelet Count 293 K/mm3 (150-450); RBC Distribution Width SD 53.3 fl (35.1-43.9); Red Blood Count 3.59 M/mm3 (4.2-5.4); White Blood Count 11.5 K/mm3 (4.4-11.0)
--- NOTE | 2024-09-21 11:35 | CASEMGMT ---
Social Work SW met with patient to complete initial assessment. Introduced self and role. present and pt permitted to remain. Verified contacts. Patient confirmed code status as full code. SW requested provide copies of advance directives to place on file. Educated to Medicare benefit and copay coverage. Pt's goal is to return home with at [facility]. See assessment for details. SW will continue to follow for DC planning assistance. Jahaira Pina MSW COUNCILOR
[2024-09-21] MEDS: Multivitamins,Therapeutic Tablet 1 TABLET PO (11:42)
[2024-09-21] MEDS: Tuberculin,Purif.prot.deriv. 50 TU/ML Vial 0.1 ML ID (11:42)
[2024-09-21] MEDS: Losartan Potassium 100 MG Tablet PO (11:42)
[2024-09-21 11:44] LABS: Anion Gap 12 (5-15); BUN 23 mg/dL (4-19); BUN/Creat Ratio 34.1 RATIO (10-20); Calcium,Total 8.1 mg/dL (7.6-11.0); Carbon Dioxide 22.6 mmol/L (21.0-32.0); Chloride 103 mmol/L (98-108); Creatinine, Serum 0.68 mg/dL (0.70-1.20); EST Glomerular Filtration Rate 85 (>60); Glucose 174 mg/dL (70-99); Potassium 4.2 mmol/L (3.3-5.1); Sodium Level 137 mmol/L (133-145)
[2024-09-21 12:09] LABS: Bedside Glucose 153 mg/dL (74-106)
--- NOTE | 2024-09-21 15:40 | CHAPLAIN ---
Type of Pastoral Visit _x__ Initial Visit ___ Follow-up Visit ___ On-call Visit ___ General Patient Visit ___ Spiritual Assessment ___ Family Conference ___ Bereavement ___ Rapid Response ___ Code Blue ___ Other (describe below) Pastoral Care Referral From _x__ Patient ___ Family ___ Nurse ___ Physician ___ Payroll Accountant ___ Showroom Salesperson ___ Other (describe below) Sacrament/Intervention _x__ Active listening ___ Anointing ___ Samaritan ___ Bereavement ___ Communion ___ Addie exploration ___ _x__ Life review _x__ Prayer ___ Reconciliation ___ Sacrament of Sick ___ Supportive presence ___ Wedding ___ Other (describe below) Pastoral Comments patient was seen by this hand assembler a couple of weeks ago in the ICU; pt is 'moving closer to going home' per her comments; pt admits to being weak still; pt speaks of her great and large family that is supportive; pt welcomes a prayer for her care today
[2024-09-21 16:55] LABS: Bedside Glucose 281 mg/dL (74-106)
[2024-09-21] MEDS: Senna/Docusate Sodium 1 Tablet PO (19:57)
[2024-09-21 21:28] LABS: Bedside Glucose 254 mg/dL (74-106)
[2024-09-22] VITALS (8 sets, daily range): BP systolic 139–141; BP diastolic 57–60; PULSE 61–66; RESP 16; TEMP 36.6; O2SAT 91–98
[2024-09-22] MEDS: Enoxaparin 40 MG/0.4 ML Syringe SC (05:29)
[2024-09-22] MEDS: Levothyroxine 88 MCG Tablet PO (05:29)
[2024-09-22 06:31] LABS: Bedside Glucose 130 mg/dL (74-106)
[2024-09-22] MEDS: Metoprolol(XL)Succ 25 MG Tablet PO ×2 (08:40→22:14)
[2024-09-22] MEDS: Aspirin 81 MG TAB.CHEW PO (08:40)
[2024-09-22] MEDS: Folic Acid 1 MG Tablet 0.5 MG PO (08:40)
[2024-09-22] MEDS: Magnesium Chloride 64 MG Delay Rel.Tablet 128 MG PO (08:40)
[2024-09-22] MEDS: Isosorbide Mononitrate 30 MG Tablet PO ×2 (08:41→22:13)
[2024-09-22] MEDS: Atorvastatin Calcium 40 MG Tablet PO (08:41)
[2024-09-22] MEDS: Ascorbic Acid 500 MG Tablet 1000 MG PO ×2 (08:41→22:14)
[2024-09-22] MEDS: amLODIPine 10 MG Tablet PO (08:41)
[2024-09-22] MEDS: Senna/Docusate Sodium 1 Tablet PO ×2 (08:42→22:14)
[2024-09-22] MEDS: Vitamin E 400 UNITS Capsule PO (08:42)
[2024-09-22] MEDS: Losartan Potassium 100 MG Tablet PO (08:42)
[2024-09-22] MEDS: Clopidogrel Bisulfate 75 MG Tablet PO (08:42)
[2024-09-22] MEDS: predniSONE 20 MG Tablet 40 MG PO (08:42)
[2024-09-22 11:39] LABS: Bedside Glucose 194 mg/dL (74-106)
[2024-09-22] MEDS: Multivitamins,Therapeutic Tablet 1 TABLET PO (12:21)
[2024-09-22 16:50] LABS: Bedside Glucose 306 mg/dL (74-106)
[2024-09-23] VITALS (7 sets, daily range): BP systolic 139–157; BP diastolic 57–66; PULSE 60–70; RESP 17–18; TEMP 36.3; O2SAT 87–96
[2024-09-23] MEDS: Enoxaparin 40 MG/0.4 ML Syringe SC (05:41)
[2024-09-23] MEDS: Levothyroxine 88 MCG Tablet PO (05:41)
[2024-09-23 06:12] LABS: Bedside Glucose 101 mg/dL (74-106)
[2024-09-23] MEDS: Losartan Potassium 100 MG Tablet PO (07:57)
[2024-09-23] MEDS: amLODIPine 10 MG Tablet PO (07:57)
[2024-09-23] MEDS: Clopidogrel Bisulfate 75 MG Tablet PO (07:57)
[2024-09-23] MEDS: Magnesium Chloride 64 MG Delay Rel.Tablet 128 MG PO (07:57)
[2024-09-23] MEDS: Folic Acid 1 MG Tablet 0.5 MG PO (07:57)
[2024-09-23] MEDS: predniSONE 20 MG Tablet 40 MG PO (07:57)
[2024-09-23] MEDS: Atorvastatin Calcium 40 MG Tablet PO (07:57)
[2024-09-23] MEDS: Aspirin 81 MG TAB.CHEW PO (07:57)
[2024-09-23] MEDS: Isosorbide Mononitrate 30 MG Tablet PO ×2 (07:57→20:15)
[2024-09-23] MEDS: Ascorbic Acid 500 MG Tablet 1000 MG PO ×2 (07:58→20:16)
[2024-09-23] MEDS: Senna/Docusate Sodium 1 Tablet PO ×2 (07:58→20:16)
[2024-09-23] MEDS: Metoprolol(XL)Succ 25 MG Tablet PO ×2 (07:58→20:15)
[2024-09-23] MEDS: Vitamin E 400 UNITS Capsule PO (07:58)
[2024-09-23] MEDS: 0.9% Saline Lock 10 ML Syringe IV ×2 (08:04→20:17)
[2024-09-23 11:23] LABS: Bedside Glucose 197 mg/dL (74-106)
[2024-09-23] MEDS: Multivitamins,Therapeutic Tablet 1 TABLET PO (11:40)
--- NOTE | 2024-09-23 11:43 | NURSING ---
Addendum entered by Petra Trejo 09/23/24 16:07: 1300 oxygen reapplied 2 liters, pt sat 88% on room air at rest, pt SOB per [employer]EDY CONSULTANT. Original Note: pt here asking about oxygen, why she is still wearing it. Explanation given that pt O2 dropped during therapy session this AM. sat 95% on 1 liter. asked for it to be removed while sitting in recliner chair, removed at this time will monitor oxygen level on room air. pt agreeable. call light in reach. instructed to call if she felt SOB. pt verbalized understanding.
--- NOTE | 2024-09-23 12:39 | NURSING ---
Excavation Laborer Note; Activity Asset: Jeremías Lemus is independent in her choice of daily activities. Her family will bring in items she may need or want. She will watch tv, read and used to play cards a lot w/her and friends. She welcomes visits from staff or government operations consultant when available. staff will encourage social activities, remind her of group and respect her right to say no.
[2024-09-23 16:58] LABS: Bedside Glucose 253 mg/dL (74-106)
[2024-09-24] MEDS: Levothyroxine 88 MCG Tablet PO (05:56)
[2024-09-24] MEDS: Enoxaparin 40 MG/0.4 ML Syringe SC (05:56)
[2024-09-24 06:00] VITALS: O2SAT 94
[2024-09-24 06:20] LABS: Bedside Glucose 101 mg/dL (74-106)
[2024-09-24 07:58] VITALS: BP 141/56; PULSE 58; RESP 18; TEMP 36.5; O2SAT 96
[2024-09-24 08:02] VITALS: PULSE 58
[2024-09-24] MEDS: Clopidogrel Bisulfate 75 MG Tablet PO (08:02)
[2024-09-24] MEDS: Aspirin 81 MG TAB.CHEW PO (08:02)
[2024-09-24] MEDS: Metoprolol(XL)Succ 25 MG Tablet PO ×2 (08:02→21:39)
[2024-09-24] MEDS: Isosorbide Mononitrate 30 MG Tablet PO ×2 (08:03→21:39)
[2024-09-24] MEDS: predniSONE 20 MG Tablet 40 MG PO (08:03)
[2024-09-24] MEDS: Losartan Potassium 100 MG Tablet PO (08:03)
[2024-09-24] MEDS: Senna/Docusate Sodium 1 Tablet PO ×2 (08:03→21:39)
[2024-09-24] MEDS: Ascorbic Acid 500 MG Tablet 1000 MG PO ×2 (08:03→21:39)
[2024-09-24] MEDS: amLODIPine 10 MG Tablet PO (08:03)
[2024-09-24] MEDS: Vitamin E 400 UNITS Capsule PO (08:03)
[2024-09-24] MEDS: Folic Acid 1 MG Tablet 0.5 MG PO (08:04)
[2024-09-24] MEDS: Atorvastatin Calcium 40 MG Tablet PO (08:04)
[2024-09-24] MEDS: Magnesium Chloride 64 MG Delay Rel.Tablet 128 MG PO (08:04)
--- NOTE | 2024-09-24 08:06 | NURSING ---
Had patient demonstrate use of incentive spirometer, encouraged pt to use every hr to assist with lung health. pt verbalized understanding. pt on 1.5 liters oxygen at rest sat 96%
[2024-09-24 11:31] LABS: Bedside Glucose 202 mg/dL (74-106)
[2024-09-24] MEDS: Multivitamins,Therapeutic Tablet 1 TABLET PO (11:37)
[2024-09-24] MEDS: 0.9% Saline Lock 10 ML Syringe IV (11:40)
--- NOTE | 2024-09-24 13:36 | CASEMGMT ---
Social Work SW completed BIMS () and PHQ-2 () for MDS assessment. Jahaira Pina CREATIVE CONSULTANT INVESTIGATION LIEUTENANT
[2024-09-24 13:40] VITALS: O2SAT 96
[2024-09-24 16:49] LABS: Bedside Glucose 300 mg/dL (74-106)
[2024-09-24 21:35] VITALS: BP 145/64; PULSE 66; O2SAT 97
[2024-09-24 21:39] VITALS: BP 145/64; PULSE 66
[2024-09-24] MEDS: MELATONIN 3 MG TABLET PO (21:39)
[2024-09-25] MEDS: Levothyroxine 88 MCG Tablet PO (06:10)
[2024-09-25] MEDS: Enoxaparin 40 MG/0.4 ML Syringe SC (06:10)
[2024-09-25 07:20] VITALS: O2SAT 96
[2024-09-25 08:59] VITALS: BP 134/51; PULSE 57; RESP 16; TEMP 35.6; O2SAT 95
[2024-09-25] MEDS: Folic Acid 1 MG Tablet 0.5 MG PO (09:02)
[2024-09-25] MEDS: Aspirin 81 MG TAB.CHEW PO (09:02)
[2024-09-25] MEDS: predniSONE 20 MG Tablet 40 MG PO (09:02)
[2024-09-25] MEDS: Losartan Potassium 100 MG Tablet PO (09:03)
[2024-09-25] MEDS: Magnesium Chloride 64 MG Delay Rel.Tablet 128 MG PO (09:03)
[2024-09-25] MEDS: Vitamin E 400 UNITS Capsule PO (09:03)
[2024-09-25] MEDS: Atorvastatin Calcium 40 MG Tablet PO (09:03)
[2024-09-25] MEDS: Isosorbide Mononitrate 30 MG Tablet PO ×2 (09:03→20:45)
[2024-09-25 09:04] VITALS: PULSE 57
[2024-09-25] MEDS: Metoprolol(XL)Succ 25 MG Tablet PO ×2 (09:04→20:44)
[2024-09-25] MEDS: amLODIPine 10 MG Tablet PO (09:04)
[2024-09-25] MEDS: Senna/Docusate Sodium 1 Tablet PO ×2 (09:04→20:45)
[2024-09-25] MEDS: Clopidogrel Bisulfate 75 MG Tablet PO (09:04)
[2024-09-25] MEDS: Ascorbic Acid 500 MG Tablet 1000 MG PO ×2 (09:05→20:46)
[2024-09-25 11:36] LABS: Bedside Glucose 166 mg/dL (74-106)
[2024-09-25] MEDS: Multivitamins,Therapeutic Tablet 1 TABLET PO (12:11)
[2024-09-25 16:52] LABS: Bedside Glucose 210 mg/dL (74-106)
[2024-09-25 20:42] VITALS: BP 131/53; PULSE 62; O2SAT 96
[2024-09-25 20:44] VITALS: BP 131/53; PULSE 62
[2024-09-25] MEDS: MELATONIN 3 MG TABLET PO (20:45)
[2024-09-25] MEDS: 0.9% Saline Lock 10 ML Syringe IV (20:48)
[2024-09-26] MEDS: Enoxaparin 40 MG/0.4 ML Syringe SC (05:32)
[2024-09-26] MEDS: Levothyroxine 88 MCG Tablet PO (05:32)
[2024-09-26 06:32] LABS: Bedside Glucose 100 mg/dL (74-106)
[2024-09-26] MEDS: predniSONE 20 MG Tablet 40 MG PO (09:10)
[2024-09-26] MEDS: Folic Acid 1 MG Tablet 0.5 MG PO (09:10)
[2024-09-26] MEDS: Isosorbide Mononitrate 30 MG Tablet PO ×2 (09:11→19:55)
[2024-09-26] MEDS: Losartan Potassium 100 MG Tablet PO (09:11)
[2024-09-26] MEDS: Atorvastatin Calcium 40 MG Tablet PO (09:11)
[2024-09-26] MEDS: Magnesium Chloride 64 MG Delay Rel.Tablet 128 MG PO (09:11)
[2024-09-26] MEDS: Vitamin E 400 UNITS Capsule PO (09:11)
[2024-09-26] MEDS: Aspirin 81 MG TAB.CHEW PO (09:11)
[2024-09-26] MEDS: Clopidogrel Bisulfate 75 MG Tablet PO (09:12)
[2024-09-26] MEDS: Senna/Docusate Sodium 1 Tablet PO ×2 (09:12→19:54)
[2024-09-26] MEDS: amLODIPine 10 MG Tablet PO (09:12)
[2024-09-26 09:13] VITALS: BP 147/53; PULSE 64
[2024-09-26] MEDS: Metoprolol(XL)Succ 25 MG Tablet PO ×2 (09:13→19:55)
[2024-09-26] MEDS: Ascorbic Acid 500 MG Tablet 1000 MG PO ×2 (09:13→19:56)
[2024-09-26 11:50] LABS: Bedside Glucose 162 mg/dL (74-106)
[2024-09-26] MEDS: 0.9% Saline Lock 10 ML Syringe IV ×2 (13:10→20:09)
[2024-09-26] MEDS: Multivitamins,Therapeutic Tablet 1 TABLET PO (13:10)
[2024-09-26 14:11] VITALS: PULSE 61; RESP 18; TEMP 36.6; O2SAT 94
[2024-09-26 16:57] LABS: Bedside Glucose 303 mg/dL (74-106)
[2024-09-26 19:52] VITALS: BP 133/57; PULSE 61; O2SAT 94
[2024-09-26 19:55] VITALS: BP 133/57; PULSE 61
[2024-09-26] MEDS: MELATONIN 3 MG TABLET PO (19:55)
[2024-09-26] MEDS: Menthol/Lanolin/Calamine/Znox 113 GM Tube 1 APPLIC TOPICAL (20:01)
[2024-09-27] VITALS (8 sets, daily range): BP systolic 127–164; BP diastolic 58–75; PULSE 56–70; RESP 18–20; TEMP 36.6–36.8; O2SAT 93–96
[2024-09-27] MEDS: Enoxaparin 40 MG/0.4 ML Syringe SC (05:48)
[2024-09-27] MEDS: Levothyroxine 88 MCG Tablet PO (05:48)
[2024-09-27 06:15] LABS: Bedside Glucose 117 mg/dL (74-106)
[2024-09-27] MEDS: Aspirin 81 MG TAB.CHEW PO (07:53)
[2024-09-27] MEDS: predniSONE 20 MG Tablet 40 MG PO (07:53)
[2024-09-27] MEDS: Folic Acid 1 MG Tablet 0.5 MG PO (07:53)
[2024-09-27] MEDS: Magnesium Chloride 64 MG Delay Rel.Tablet 128 MG PO (07:54)
[2024-09-27] MEDS: Atorvastatin Calcium 40 MG Tablet PO (07:54)
[2024-09-27] MEDS: Vitamin E 400 UNITS Capsule PO (07:54)
[2024-09-27] MEDS: Losartan Potassium 100 MG Tablet PO (07:54)
[2024-09-27] MEDS: Isosorbide Mononitrate 30 MG Tablet PO ×2 (07:54→20:30)
[2024-09-27] MEDS: Clopidogrel Bisulfate 75 MG Tablet PO (07:55)
[2024-09-27] MEDS: amLODIPine 10 MG Tablet PO (07:55)
[2024-09-27] MEDS: Metoprolol(XL)Succ 25 MG Tablet PO ×2 (07:55→20:28)
[2024-09-27] MEDS: Senna/Docusate Sodium 1 Tablet PO ×2 (07:55→20:29)
[2024-09-27] MEDS: Ascorbic Acid 500 MG Tablet 1000 MG PO ×2 (07:56→20:30)
[2024-09-27] MEDS: Menthol/Lanolin/Calamine/Znox 113 GM Tube 1 APPLIC TOPICAL ×2 (08:02→20:33)
--- NOTE | 2024-09-27 08:35 | NURSING ---
Audio Director Note; MDS for 09/27/2024 Complete
[2024-09-27 11:34] LABS: Bedside Glucose 195 mg/dL (74-106)
[2024-09-27] MEDS: Multivitamins,Therapeutic Tablet 1 TABLET PO (12:46)
[2024-09-27] MEDS: 0.9% Saline Lock 10 ML Syringe IV (12:46)
[2024-09-27 16:48] LABS: Bedside Glucose 248 mg/dL (74-106)
[2024-09-27] MEDS: MELATONIN 3 MG TABLET PO (20:30)
[2024-09-28] MEDS: Enoxaparin 40 MG/0.4 ML Syringe SC (05:21)
[2024-09-28] MEDS: Levothyroxine 88 MCG Tablet PO (05:21)
[2024-09-28 05:58] LABS: Absolute Lymphocyte Count 2.49 X10^3/uL (0.83-4.51); Absolute Neutrophil Count 10.2 X10^3/uL (2.0-7.7); Basophil# 0.05 X10^3/uL; Basophil% 0.3 % (0-1); Eosinophils% 0.7 % (0-5); Hematocrit 32.6 % (37-47); Hemoglobin 10.7 g/dL (12.0-15.0); Lymphocyte # 2.49 X10^3/ul (0.83-4.51); Lymphocyte % 17.3 % (19-41); Mean Corp Hgb Conc 32.8 g/dL (32-36); Mean Corpuscular Hgb 30.3 pg (27.0-32.0); Mean Corpuscular Volume 92.4 fL (81-99); Mean Platelet Vol. 10.3 fl (6.2-12.0); Monocyte# 1.03 X10^3/uL; Monocyte% 7.2 % (0-10); NRBC Flagged by Analyzer 0.1 % (0-5); Neutrophil # 10.21 X10^3/uL (2.7-7.7); Neutrophil % 71.2 % (47-70); Platelet Count 196 K/mm3 (150-450); RBC Distribution Width CV 17.8 % (11.6-14.6); RBC Distribution Width SD 59.8 fl (35.1-43.9); Red Blood Count 3.53 M/mm3 (4.2-5.4); White Blood Count 14.4 K/mm3 (4.4-11.0)
[2024-09-28 06:32] LABS: Anion Gap 10 (5-15); BUN 23 mg/dL (4-19); BUN/Creat Ratio 34.6 RATIO (10-20); Calcium,Total 8.5 mg/dL (7.6-11.0); Chloride 106 mmol/L (98-108); Creatinine, Serum 0.67 mg/dL (0.70-1.20); EST Glomerular Filtration Rate 85 (>60); Estimated Creatinine Clearance 44.82 ml/min (50-250); Glucose 90 mg/dL (70-99); Potassium 4.5 mmol/L (3.3-5.1); Sodium Level 140 mmol/L (133-145)
[2024-09-28 06:34] LABS: Bedside Glucose 91 mg/dL (74-106)
[2024-09-28] MEDS: Aspirin 81 MG TAB.CHEW PO (09:38)
[2024-09-28] MEDS: Folic Acid 1 MG Tablet 0.5 MG PO (09:39)
[2024-09-28] MEDS: Vitamin E 400 UNITS Capsule PO (09:39)
[2024-09-28] MEDS: predniSONE 20 MG Tablet 40 MG PO (09:39)
[2024-09-28] MEDS: Isosorbide Mononitrate 30 MG Tablet PO ×2 (09:40→20:28)
[2024-09-28] MEDS: Losartan Potassium 100 MG Tablet PO (09:40)
[2024-09-28] MEDS: Menthol/Lanolin/Calamine/Znox 113 GM Tube 1 APPLIC TOPICAL ×2 (09:40→20:29)
[2024-09-28 09:41] VITALS: PULSE 63
[2024-09-28] MEDS: Senna/Docusate Sodium 1 Tablet PO ×2 (09:41→20:29)
[2024-09-28] MEDS: Magnesium Chloride 64 MG Delay Rel.Tablet 128 MG PO (09:41)
[2024-09-28] MEDS: Clopidogrel Bisulfate 75 MG Tablet PO (09:41)
[2024-09-28] MEDS: Metoprolol(XL)Succ 25 MG Tablet PO ×2 (09:41→20:29)
[2024-09-28] MEDS: amLODIPine 10 MG Tablet PO (09:41)
[2024-09-28] MEDS: Atorvastatin Calcium 40 MG Tablet PO (09:41)
[2024-09-28] MEDS: Ascorbic Acid 500 MG Tablet 1000 MG PO ×2 (09:42→20:29)
[2024-09-28] MEDS: Tuberculin,Purif.prot.deriv. 50 TU/ML Vial 0.1 ML ID (09:47)
[2024-09-28 10:40] VITALS: BMI 26.2
[2024-09-28 11:26] LABS: Bedside Glucose 122 mg/dL (74-106)
[2024-09-28] MEDS: Multivitamins,Therapeutic Tablet 1 TABLET PO (11:56)
--- NOTE | 2024-09-28 13:05 | NURSING ---
Offered covid vaccine, VIS provided. Resident declines.
[2024-09-28 13:17] VITALS: BP 143/52; PULSE 63; RESP 18; TEMP 36.9; O2SAT 96
[2024-09-28 14:36] VITALS: O2SAT 94
[2024-09-28 16:40] LABS: Bedside Glucose 327 mg/dL (74-106)
[2024-09-28 20:29] VITALS: BP 146/58; PULSE 67
[2024-09-28] MEDS: MELATONIN 3 MG TABLET PO (20:29)
[2024-09-28] MEDS: 0.9% Saline Lock 10 ML Syringe IV (20:30)
[2024-09-28 20:36] VITALS: BP 146/58; PULSE 67
[2024-09-29] MEDS: Levothyroxine 88 MCG Tablet PO (05:23)
[2024-09-29] MEDS: Enoxaparin 40 MG/0.4 ML Syringe SC (05:23)
[2024-09-29 06:19] LABS: Bedside Glucose 101 mg/dL (74-106)
[2024-09-29 08:24] VITALS: BP 136/50; PULSE 66; RESP 18; TEMP 36.6; O2SAT 96
[2024-09-29] MEDS: Folic Acid 1 MG Tablet 0.5 MG PO (08:28)
[2024-09-29] MEDS: Aspirin 81 MG TAB.CHEW PO (08:28)
[2024-09-29] MEDS: Clopidogrel Bisulfate 75 MG Tablet PO (08:29)
[2024-09-29] MEDS: Vitamin E 400 UNITS Capsule PO (08:29)
[2024-09-29] MEDS: predniSONE 20 MG Tablet 40 MG PO (08:29)
[2024-09-29] MEDS: Atorvastatin Calcium 40 MG Tablet PO (08:29)
[2024-09-29] MEDS: amLODIPine 10 MG Tablet PO (08:29)
[2024-09-29] MEDS: Ascorbic Acid 500 MG Tablet 1000 MG PO ×2 (08:29→21:30)
[2024-09-29] MEDS: Magnesium Chloride 64 MG Delay Rel.Tablet 128 MG PO (08:29)
[2024-09-29 08:30] VITALS: PULSE 66
[2024-09-29] MEDS: Menthol/Lanolin/Calamine/Znox 113 GM Tube 1 APPLIC TOPICAL (08:30)
[2024-09-29] MEDS: Metoprolol(XL)Succ 25 MG Tablet PO ×2 (08:30→21:31)
[2024-09-29] MEDS: Senna/Docusate Sodium 1 Tablet PO ×2 (08:30→21:30)
[2024-09-29] MEDS: Isosorbide Mononitrate 30 MG Tablet PO ×2 (08:30→21:30)
[2024-09-29] MEDS: Losartan Potassium 100 MG Tablet PO (08:30)
--- NOTE | 2024-09-29 10:02 | CASEMGMT ---
Social Work IDT met with patient and for care plan meeting. Discussed patient's progress in PT/OT/SN. Educated to Medicare benefit. Provided pt/family with written communication of insurance process and copay coverage during stay. Pt is weaning off O2, currently using it with exertion and at night. The goal is to no longer have O2 for home. can assist with pt's needs at DC. SW will continue to follow for ongoing DC planning. Jahaira Pina CARDING DOUBLER TRUCK SAFETY INSPECTOR
--- NOTE | 2024-09-29 11:08 | NURSING ---
Pt resting in recliner this morning with 2L 02. Weaned to RA, 02 96%, no dyspnea.
[2024-09-29 11:43] LABS: Bedside Glucose 151 mg/dL (74-106)
[2024-09-29] MEDS: Multivitamins,Therapeutic Tablet 1 TABLET PO (12:00)
[2024-09-29 17:23] LABS: Bedside Glucose 212 mg/dL (74-106)
[2024-09-29 21:30] VITALS: BP 148/57; PULSE 61; RESP 17; TEMP 36.4; O2SAT 93
[2024-09-29 21:31] VITALS: BP 148/57; PULSE 61
[2024-09-29] MEDS: MELATONIN 3 MG TABLET PO (21:31)
[2024-09-30] MEDS: Enoxaparin 40 MG/0.4 ML Syringe SC (06:10)
[2024-09-30] MEDS: Levothyroxine 88 MCG Tablet PO (06:10)
[2024-09-30 06:13] LABS: Bedside Glucose 90 mg/dL (74-106)
[2024-09-30 09:11] VITALS: BP 132/51; PULSE 64; RESP 17; TEMP 36.6; O2SAT 96
[2024-09-30] MEDS: Aspirin 81 MG TAB.CHEW PO (09:15)
[2024-09-30] MEDS: Folic Acid 1 MG Tablet 0.5 MG PO (09:15)
[2024-09-30] MEDS: Vitamin E 400 UNITS Capsule PO (09:16)
[2024-09-30] MEDS: predniSONE 20 MG Tablet 40 MG PO (09:16)
[2024-09-30] MEDS: Menthol/Lanolin/Calamine/Znox 113 GM Tube 1 APPLIC TOPICAL ×2 (09:16→20:54)
[2024-09-30] MEDS: Isosorbide Mononitrate 30 MG Tablet PO ×2 (09:17→20:50)
[2024-09-30] MEDS: Magnesium Chloride 64 MG Delay Rel.Tablet 128 MG PO (09:17)
[2024-09-30] MEDS: Losartan Potassium 100 MG Tablet PO (09:17)
[2024-09-30] MEDS: Clopidogrel Bisulfate 75 MG Tablet PO (09:17)
[2024-09-30] MEDS: amLODIPine 10 MG Tablet PO (09:17)
[2024-09-30] MEDS: Atorvastatin Calcium 40 MG Tablet PO (09:17)
[2024-09-30 09:18] VITALS: PULSE 64
[2024-09-30] MEDS: Senna/Docusate Sodium 1 Tablet PO ×2 (09:18→20:50)
[2024-09-30] MEDS: Metoprolol(XL)Succ 25 MG Tablet PO ×2 (09:18→20:50)
[2024-09-30] MEDS: Ascorbic Acid 500 MG Tablet 1000 MG PO ×2 (09:18→20:50)
[2024-09-30 11:37] LABS: Bedside Glucose 171 mg/dL (74-106)
[2024-09-30] MEDS: Multivitamins,Therapeutic Tablet 1 TABLET PO (11:57)
[2024-09-30 20:50] VITALS: BP 157/61; PULSE 70
[2024-09-30] MEDS: MELATONIN 3 MG TABLET PO (20:51)
[2024-10-01] MEDS: Enoxaparin 40 MG/0.4 ML Syringe SC (05:58)
[2024-10-01] MEDS: Levothyroxine 88 MCG Tablet PO (05:58)
[2024-10-01 10:37] VITALS: BP 139/56; PULSE 67; RESP 18; TEMP 36.8; O2SAT 94
[2024-10-01] MEDS: Vitamin E 400 UNITS Capsule PO (10:41)
[2024-10-01] MEDS: Aspirin 81 MG TAB.CHEW PO (10:41)
[2024-10-01] MEDS: Folic Acid 1 MG Tablet 0.5 MG PO (10:41)
[2024-10-01] MEDS: Clopidogrel Bisulfate 75 MG Tablet PO (10:42)
[2024-10-01] MEDS: Isosorbide Mononitrate 30 MG Tablet PO ×2 (10:42→21:01)
[2024-10-01] MEDS: Atorvastatin Calcium 40 MG Tablet PO (10:42)
[2024-10-01] MEDS: Magnesium Chloride 64 MG Delay Rel.Tablet 128 MG PO (10:42)
[2024-10-01] MEDS: Losartan Potassium 100 MG Tablet PO (10:42)
[2024-10-01] MEDS: amLODIPine 10 MG Tablet PO (10:42)
[2024-10-01] MEDS: Menthol/Lanolin/Calamine/Znox 113 GM Tube 1 APPLIC TOPICAL ×2 (10:42→21:01)
[2024-10-01] MEDS: Senna/Docusate Sodium 1 Tablet PO ×2 (10:42→21:01)
[2024-10-01] MEDS: Multivitamins,Therapeutic Tablet 1 TABLET PO (10:43)
[2024-10-01] MEDS: Ascorbic Acid 500 MG Tablet 1000 MG PO ×2 (10:43→21:00)
[2024-10-01 10:44] VITALS: PULSE 67
[2024-10-01] MEDS: Metoprolol(XL)Succ 50 MG Tablet PO ×2 (10:44→21:03)
[2024-10-01 21:00] VITALS: RESP 18
[2024-10-01] MEDS: MELATONIN 3 MG TABLET PO (21:00)
[2024-10-01 21:03] VITALS: BP 141/60; PULSE 63
[2024-10-02 04:18] VITALS: PULSE 60; RESP 16; O2SAT 93
[2024-10-02] MEDS: Enoxaparin 40 MG/0.4 ML Syringe SC (05:52)
[2024-10-02] MEDS: Levothyroxine 88 MCG Tablet PO (05:52)
[2024-10-02] MEDS: Aspirin 81 MG TAB.CHEW PO (08:00)
[2024-10-02] MEDS: Folic Acid 1 MG Tablet 0.5 MG PO (08:01)
[2024-10-02] MEDS: Vitamin E 400 UNITS Capsule PO (08:01)
[2024-10-02] MEDS: Menthol/Lanolin/Calamine/Znox 113 GM Tube 1 APPLIC TOPICAL ×2 (08:02→22:33)
[2024-10-02] MEDS: Losartan Potassium 100 MG Tablet PO (08:03)
[2024-10-02] MEDS: Isosorbide Mononitrate 30 MG Tablet PO ×2 (08:04→22:34)
[2024-10-02] MEDS: Magnesium Chloride 64 MG Delay Rel.Tablet 128 MG PO (08:05)
[2024-10-02] MEDS: Atorvastatin Calcium 40 MG Tablet PO (08:05)
[2024-10-02] MEDS: Clopidogrel Bisulfate 75 MG Tablet PO (08:06)
[2024-10-02] MEDS: amLODIPine 10 MG Tablet PO (08:06)
[2024-10-02 08:07] VITALS: BP 150/61; PULSE 62
[2024-10-02] MEDS: Metoprolol(XL)Succ 50 MG Tablet PO ×2 (08:07→22:36)
[2024-10-02] MEDS: Senna/Docusate Sodium 1 Tablet PO ×2 (08:07→22:36)
[2024-10-02] MEDS: Ascorbic Acid 500 MG Tablet 1000 MG PO ×2 (08:08→22:35)
[2024-10-02] MEDS: Multivitamins,Therapeutic Tablet 1 TABLET PO (08:08)
[2024-10-02 10:00] VITALS: BP 150/61; PULSE 62; RESP 16; TEMP 36.7; O2SAT 92
[2024-10-02 15:53] VITALS: O2SAT 90
[2024-10-02 22:00] VITALS: O2SAT 95
[2024-10-02 22:36] VITALS: BP 138/59; PULSE 64
[2024-10-02] MEDS: MELATONIN 3 MG TABLET PO (22:36)
[2024-10-03] MEDS: Levothyroxine 88 MCG Tablet PO (06:05)
[2024-10-03] MEDS: Enoxaparin 40 MG/0.4 ML Syringe SC (06:06)
[2024-10-03 09:44] VITALS: BP 115/49; PULSE 68; RESP 18; TEMP 36.7; O2SAT 93
[2024-10-03] MEDS: Folic Acid 1 MG Tablet 0.5 MG PO (09:49)
[2024-10-03] MEDS: Aspirin 81 MG TAB.CHEW PO (09:49)
[2024-10-03] MEDS: Vitamin E 400 UNITS Capsule PO (09:50)
[2024-10-03] MEDS: Menthol/Lanolin/Calamine/Znox 113 GM Tube 1 APPLIC TOPICAL ×2 (09:50→21:20)
[2024-10-03] MEDS: Losartan Potassium 100 MG Tablet PO (09:50)
[2024-10-03] MEDS: Isosorbide Mononitrate 30 MG Tablet PO ×2 (09:50→21:19)
[2024-10-03 09:51] VITALS: PULSE 68
[2024-10-03] MEDS: Metoprolol(XL)Succ 50 MG Tablet PO ×2 (09:51→21:19)
[2024-10-03] MEDS: Senna/Docusate Sodium 1 Tablet PO (09:51)
[2024-10-03] MEDS: Clopidogrel Bisulfate 75 MG Tablet PO (09:51)
[2024-10-03] MEDS: Atorvastatin Calcium 40 MG Tablet PO (09:51)
[2024-10-03] MEDS: Magnesium Chloride 64 MG Delay Rel.Tablet 128 MG PO (09:51)
[2024-10-03] MEDS: amLODIPine 10 MG Tablet PO (09:51)
[2024-10-03] MEDS: Ascorbic Acid 500 MG Tablet 1000 MG PO ×2 (09:51→21:30)
[2024-10-03] MEDS: Multivitamins,Therapeutic Tablet 1 TABLET PO (09:52)
[2024-10-03 21:00] VITALS: BP 133/55; PULSE 68; RESP 18; TEMP 36.8; O2SAT 92
[2024-10-03 21:19] VITALS: PULSE 68
[2024-10-03] MEDS: MELATONIN 3 MG TABLET PO (21:19)
[2024-10-04] MEDS: Enoxaparin 40 MG/0.4 ML Syringe SC (05:17)
[2024-10-04] MEDS: Levothyroxine 88 MCG Tablet PO (05:18)
[2024-10-04 09:14] VITALS: BP 114/48; PULSE 90; RESP 17; TEMP 36.8
[2024-10-04] MEDS: Aspirin 81 MG TAB.CHEW PO (09:21)
[2024-10-04] MEDS: Folic Acid 1 MG Tablet 0.5 MG PO (09:21)
[2024-10-04] MEDS: Vitamin E 400 UNITS Capsule PO (09:22)
[2024-10-04] MEDS: Menthol/Lanolin/Calamine/Znox 113 GM Tube 1 APPLIC TOPICAL ×2 (09:22→21:23)
[2024-10-04] MEDS: Atorvastatin Calcium 40 MG Tablet PO (09:22)
[2024-10-04] MEDS: Losartan Potassium 100 MG Tablet PO (09:22)
[2024-10-04] MEDS: Isosorbide Mononitrate 30 MG Tablet PO ×2 (09:22→21:25)
[2024-10-04] MEDS: Clopidogrel Bisulfate 75 MG Tablet PO (09:23)
[2024-10-04] MEDS: amLODIPine 10 MG Tablet PO (09:23)
[2024-10-04] MEDS: Magnesium Chloride 64 MG Delay Rel.Tablet 128 MG PO (09:23)
[2024-10-04] MEDS: Multivitamins,Therapeutic Tablet 1 TABLET PO (09:24)
[2024-10-04] MEDS: Ascorbic Acid 500 MG Tablet 1000 MG PO ×2 (09:24→21:25)
[2024-10-04 09:28] VITALS: PULSE 90
[2024-10-04] MEDS: Metoprolol(XL)Succ 50 MG Tablet PO ×2 (09:28→21:24)
[2024-10-04 21:24] VITALS: BP 124/50; PULSE 64
[2024-10-04] MEDS: Senna/Docusate Sodium 1 Tablet PO (21:24)
[2024-10-04] MEDS: MELATONIN 3 MG TABLET PO (21:24)
[2024-10-05 05:51] LABS: Absolute Lymphocyte Count 1.45 X10^3/uL (0.83-4.51); Absolute Neutrophil Count 6.2 X10^3/uL (2.0-7.7); Basophil# 0.05 X10^3/uL; Basophil% 0.5 % (0-1); Eosinophil# 0.45 X10^3/uL; Eosinophils% 4.9 % (0-5); Hematocrit 30.8 % (37-47); Hemoglobin 10.1 g/dL (12.0-15.0); Lymphocyte # 1.45 X10^3/ul (0.83-4.51); Lymphocyte % 15.8 % (19-41); Mean Corp Hgb Conc 32.8 g/dL (32-36); Mean Corpuscular Hgb 30.6 pg (27.0-32.0); Mean Corpuscular Volume 93.3 fL (81-99); Mean Platelet Vol. 10.9 fl (6.2-12.0); Monocyte# 0.82 X10^3/uL; Monocyte% 8.9 % (0-10); NRBC Flagged by Analyzer 0 % (0-5); Neutrophil # 6.23 X10^3/uL (2.7-7.7); Neutrophil % 67.7 % (47-70); Platelet Count 124 K/mm3 (150-450); RBC Distribution Width CV 18.7 % (11.6-14.6); RBC Distribution Width SD 63.6 fl (35.1-43.9); White Blood Count 9.2 K/mm3 (4.4-11.0)
[2024-10-05] MEDS: Levothyroxine 88 MCG Tablet PO (05:58)
[2024-10-05] MEDS: Enoxaparin 40 MG/0.4 ML Syringe SC (05:59)
[2024-10-05 06:24] LABS: Anion Gap 10 (5-15); BUN 17 mg/dL (4-19); BUN/Creat Ratio 19.4 RATIO (10-20); Calcium,Total 8.6 mg/dL (7.6-11.0); Chloride 103 mmol/L (98-108); Creatinine, Serum 0.89 mg/dL (0.70-1.20); EST Glomerular Filtration Rate 63 (>60); Estimated Creatinine Clearance 40.03 ml/min (50-250); Glucose 116 mg/dL (70-99); Potassium 4.3 mmol/L (3.3-5.1); Sodium Level 137 mmol/L (133-145)
[2024-10-05] MEDS: Folic Acid 1 MG Tablet 0.5 MG PO (08:18)
[2024-10-05] MEDS: Losartan Potassium 100 MG Tablet PO (08:18)
[2024-10-05] MEDS: Vitamin E 400 UNITS Capsule PO (08:18)
[2024-10-05] MEDS: Aspirin 81 MG TAB.CHEW PO (08:18)
[2024-10-05] MEDS: amLODIPine 10 MG Tablet PO (08:19)
[2024-10-05] MEDS: Atorvastatin Calcium 40 MG Tablet PO (08:19)
[2024-10-05] MEDS: Magnesium Chloride 64 MG Delay Rel.Tablet 128 MG PO (08:19)
[2024-10-05] MEDS: Isosorbide Mononitrate 30 MG Tablet PO ×2 (08:19→21:49)
[2024-10-05] MEDS: Clopidogrel Bisulfate 75 MG Tablet PO (08:20)
[2024-10-05] MEDS: Senna/Docusate Sodium 1 Tablet PO ×2 (08:20→21:49)
[2024-10-05] MEDS: Ascorbic Acid 500 MG Tablet 1000 MG PO ×2 (08:20→21:49)
[2024-10-05 08:23] VITALS: BP 129/48; PULSE 63
[2024-10-05] MEDS: Metoprolol(XL)Succ 50 MG Tablet PO ×2 (08:23→21:49)
[2024-10-05] MEDS: Menthol/Lanolin/Calamine/Znox 113 GM Tube 1 APPLIC TOPICAL ×2 (08:32→21:48)
[2024-10-05 09:54] VITALS: BMI 26.6
[2024-10-05] MEDS: Multivitamins,Therapeutic Tablet 1 TABLET PO (12:08)
[2024-10-05 13:21] VITALS: O2SAT 93
[2024-10-05 16:00] VITALS: BP 116/55; PULSE 66; RESP 19; TEMP 36.4; O2SAT 90
[2024-10-05 21:49] VITALS: BP 124/53; PULSE 61
[2024-10-05] MEDS: MELATONIN 3 MG TABLET PO (21:49)
[2024-10-05 22:15] VITALS: PULSE 64; O2SAT 93
[2024-10-06 04:00] VITALS: PULSE 64; RESP 16; O2SAT 90
[2024-10-06] MEDS: Enoxaparin 40 MG/0.4 ML Syringe SC (05:41)
[2024-10-06] MEDS: Levothyroxine 88 MCG Tablet PO (05:41)
[2024-10-06] MEDS: Vitamin E 400 UNITS Capsule PO (07:48)
[2024-10-06] MEDS: Losartan Potassium 100 MG Tablet PO (07:48)
[2024-10-06] MEDS: Aspirin 81 MG TAB.CHEW PO (07:48)
[2024-10-06] MEDS: Folic Acid 1 MG Tablet 0.5 MG PO (07:48)
[2024-10-06] MEDS: Isosorbide Mononitrate 30 MG Tablet PO ×2 (07:48→22:45)
[2024-10-06] MEDS: Clopidogrel Bisulfate 75 MG Tablet PO (07:49)
[2024-10-06] MEDS: amLODIPine 10 MG Tablet PO (07:49)
[2024-10-06] MEDS: Atorvastatin Calcium 40 MG Tablet PO (07:49)
[2024-10-06] MEDS: Senna/Docusate Sodium 1 Tablet PO ×2 (07:49→22:45)
[2024-10-06] MEDS: Magnesium Chloride 64 MG Delay Rel.Tablet 128 MG PO (07:49)
[2024-10-06] MEDS: Ascorbic Acid 500 MG Tablet 1000 MG PO ×2 (07:50→22:45)
[2024-10-06 07:51] VITALS: BP 124/54; PULSE 61
[2024-10-06] MEDS: Metoprolol(XL)Succ 50 MG Tablet PO ×2 (07:51→22:45)
[2024-10-06] MEDS: Menthol/Lanolin/Calamine/Znox 113 GM Tube 1 APPLIC TOPICAL ×2 (07:58→22:45)
--- NOTE | 2024-10-06 09:26 | NURSING ---
Overnight trending 02 shows no desaturation events.
[2024-10-06 10:00] VITALS: BP 124/54; PULSE 68; RESP 18; TEMP 36.8; O2SAT 93
[2024-10-06 10:38] VITALS: O2SAT 97
--- NOTE | 2024-10-06 11:29 | CASEMGMT ---
Addendum entered by Jahaira Pina 10/08/24 10:41: SW followed up with pt and present in room. Inquired about skilled HHC agency. /[facility] SONIDO phoned referral to [facility] for PT/OT/SN Sent testing and script to [facility] for O2 with exertion. Original Note: Social Work Pt requesting to DC. Progressing well in therapy. IDT agreeable to set DC. Pt agreed to DC 10/10, but requested to call . SW agreed. Therapy recommending HHC. Pt agreed and had not used an agency prior. SW provided list of skilled HHC agencies within geographical area, INN with insurance, that include quality and resource data via [employer] guide. Pt to review with and notify this worker of selection. SW educated HHC agency will contact pt for SOC date date, but typically 2-3 days after DC, pending PCP signing orders. Pt is using O2 with exertion, which is new. SW to coordinate through [facility]. No other DME needs noted. to transport. - SW phoned to update on above. agreeable. SW answered questions. can transport. - SW sent referral to [employer] via [employer]. Testing will be completed 10/08. Plan: DC home with 10/10, HHC PT/OT/SN, O2 Jahaira Pina HOSPICE HOME CARE COORDINATOR SERVICE CENTER COORDINATOR
[2024-10-06] MEDS: Multivitamins,Therapeutic Tablet 1 TABLET PO (12:16)
--- NOTE | 2024-10-06 18:48 | DS.PCM_ITS ---
Providers Date of Admission: 09/20/24 Primary Care Physician: JOSE Inman Reason For Visit: SEPSIS & PNA Diagnosis Discharge Diagnosis (1) Debility: Status: Acute Code(s): R53.81 - Other malaise (2) Sepsis: Status: Resolved Code(s): A41.9 - Sepsis, unspecified organism (3) Acute hypoxic respiratory failure: Status: Resolved Code(s): J96.01 - Acute respiratory failure with hypoxia (4) Bilateral pneumonia: Status: Resolved Code(s): J18.9 - Pneumonia, unspecified organism (5) UTI due to Klebsiella species: Status: Acute Code(s): N39.0 - Urinary tract infection, site not specified; B96.89 - Other specified bacterial agents as the cause of diseases classified elsewhere (6) CAD (coronary artery disease): Status: Acute Code(s): I25.10 - Atherosclerotic heart disease of [place] coronary artery without angina pectoris Qualifiers: Coronary Disease-Associated Artery/Lesion type: unspecified vessel or lesion type [place] vs. transplanted heart: unspecified whether [place] or transplanted heart Associated angina: angina presence unspecified Qualified Code(s): I25.10 - Atherosclerotic heart disease of [place] coronary artery without angina pectoris (7) AIHA (autoimmune hemolytic anemia): Status: Chronic Code(s): D59.10 - Autoimmune hemolytic anemia, unspecified (8) Essential (primary) hypertension: Status: Acute Code(s): I10 - Essential (primary) hypertension (9) Hyperlipidemia: Status: Acute Code(s): E78.5 - Hyperlipidemia, unspecified Qualifiers: Hyperlipidemia type: unspecified Qualified Code(s): E78.5 - Hyperlipidemia, unspecified (10) Sarcoidosis: Status: Acute Code(s): D86.9 - Sarcoidosis, unspecified (11) ABDIAS (obstructive sleep apnea): Status: Chronic Code(s): G47.33 - Obstructive sleep apnea (adult) (pediatric) (12) Hypomagnesemia: Status: Acute Code(s): E83.42 - Hypomagnesemia (13) Hypothyroidism: Status: Chronic Code(s): E03.9 - Hypothyroidism, unspecified Qualifiers: Hypothyroidism type: unspecified Qualified Code(s): E03.9 - Hypothyroidism, unspecified Plan 88 year old female with below past medical history hospitalized for sepsis, acute respiratory failure with hypoxia 2/2 bilateral pneumonia, complicated by Klebsiella urinary tract infection, admitted to TCU with debility, here for rehabilitation, strengthening, prior to discharge home with . * Debility - PT/OT. * Pain - Tylenol 1000mg q6 prn pain (1-10). * Bowel - senna/colace 1 tablet bid, Magnesium citrate 300mL daily prn. * Adult immunization - Administer pneumonia vaccine, covid vaccine, flu vaccine as appropriate. * DVT prophylaxis - Lovenox 40mg sc daily. * Hypertension - Metoprolol succinate 25mg bid, Losartan 50mg daily, Amlodipine 10mg daily. * Vitamin C deficiency - Vitamin C 1000mg bid. * Coronary artery disease - Metoprolol succinate 25mg bid, Losartan 50mg daily, Isosorbide [place] 30mg bid, Plavix 75mg daily, Aspirin 81mg daily, NTG 0.4mg sl q5m prn. * Hyperlipidemia - Atorvastatin 40mg qhs. * Folate deficiency - Folic acid 0.5mg daily. * Edema - Furosemide 40mg daily prn. * Hypothyroidism - Levothyroxine 88mcg daily. * Hypomagnesemia - Magnesium chloride 128mg daily. * Nutrition - MVI 1 tablet daily. * Sarcoidosis - Prednisone 40mg taper. * Fatty liver - Vitamin E 400IU daily. Medications at Discharge Home Medications multivitamin 1 tab PO DAILY vitamin 02/22/21 aspirin 81 mg tablet,delayed release 81 mg PO DAILY@0800 HEART [employer] #0 tabs 02/27/21 nitroglycerin 0.4 mg sublingual tablet 0.4 mg sublingual Q5-15M PRN chest pain 10 days #25 tabs 03/01/21 magnesium 250 mg tablet 250 mg PO DAILY Check with primary doctor 05/30/21 vitamin E (dl, acetate) 180 mg (400 unit) capsule 180 mg PO DAILY Check with primary doctor 05/30/21 ascorbic acid (vitamin C) 500 mg capsule 1,000 mg PO BID supplement 08/29/21 coenzyme Q10 100 mg capsule 200 mg PO DAILY coenzyme 08/29/21 furosemide 40 mg tablet 40 mg PO DAILY PRN swelling 12/30/22 losartan 50 mg tablet 50 mg PO DAILY Check with primary doctor 01/12/24 atorvastatin 40 mg tablet 40 mg PO DAILY Cholestrol #90 tabs 01/28/24 isosorbide mononitrate 30 mg tablet,extended release 24 hr 30 mg PO BID CAD #180 tabs 01/28/24 folic acid 400 mcg tablet 0.4 mg PO QDAY supplement 05/12/24 selenium 200 mcg capsule 200 mcg PO QDAY Supplement 05/12/24 amlodipine 10 mg tablet 10 mg PO DAILY BP 09/06/24 levothyroxine 88 mcg tablet 88 mcg PO DAILY Thyroid 09/06/24 clopidogrel 75 mg tablet 75 mg PO DAILY supplement 09/20/24 metoprolol succinate 50 mg tablet,extended release 24 hr 50 mg PO BID 30 days #60 tabs 10/06/24 Hospital Course Operations None Procedures None Summary of Care Provided Minutes Spent on Discharge: 35 Hospital Course: 88 year old female with below past medical history hospitalized for sepsis, acute respiratory failure with hypoxia 2/2 bilateral pneumonia, complicated by Klebsiella urinary tract infection, admitted to TCU with debility, here for rehabilitation, strengthening, prior to discharge home with . Discharge home with 10/10/2024, [facility] PT/OT/SN, O2. Oxygen: Patient requires 2LPM of oxygen via nasal cannula d/t chronic respiratory failure with hypoxia, bilateral pneumonia; requires a concentrator and portable O2 tanks to allow patient to be mobile in the home and the community; O2 will improve the patient's condition in the home setting. Physical Exam Const alert General Appearance: cooperative HEENT normocephalic Eyes PERRL and EOMs intact bilaterally Neck supple, no JVD and no carotid bruits Resp normal respiratory effort, normal air movement and clear to auscultation bilaterally Cardio regular rate and regular rhythm GI normal to inspection, nondistended, normoactive bowel sounds, non-tender and non-distended Extremity normal capillary refill General Extremity: Negative for edema Skin no rashes or lesions noted General Skin Exam: no breakdown Psych affect normal Appearance: appropriate Weight / BMI Weight Weight: 66.134 kg Body Mass Index (BMI) 26.6 ABG / Lab / Microbiology Data 10/05/24 05:06 10/05/24 05:06 D/C Instructions Discharge Diet: No restrictions Discharge Activity: Return to Normal Activity, May Shower and Use Walker Weight Bearing Status: Weight bearing as tolerated Call your doctor if you observe: Fever of 101 or Higher, Inability to urinate, Inability to have a bowel movement, Shortness of breath, Dizziness, Fainting spells, Swelling in the ankles, Chest pain and Uncontrolled pain DC O2, CPAP, BIPAP Needs Home O2 Discharge instructions: Yes Type of respiratory needs?: Oxygen Oxygen frequency: Continuous Continuous oxygen liters per minute: 2 DC home with Oxygen: Yes Home O2 MD Review: I have reviewed the oxygen testing, and the patient qualifies for home oxygen equipment and portability. The patient is mobile in the home and the community. Additional Instructions: Discharge home with 10/10/2024, [facility] PT/OT/SN, O2. Oxygen: Patient requires 2LPM of oxygen via nasal cannula d/t chronic respiratory failure with hypoxia, bilateral pneumonia; requires a concentrator and portable O2 tanks to allow patient to be mobile in the home and the community; O2 will improve the patient's condition in the home setting. Meaningful Use Info Meaningful Use Meaningful Use Diagnoses (Choose all that apply): None applicable Ischemic Stroke Statin Dosing Therapy Reference: STATIN DOSE THERAPY REFERENCE: * Patients > 75 years receive moderate or high dose statin therapy. * Patients 75 years or YOUNGER should receive HIGH intensity statin dose unless contraindicated. You will be required to document reason for non-treatment if statin daily dose does not meet guidelines. HIGH DOSE STATIN THERAPY DAILY Atorvastatin > than or = to 40 mg Rosuvastatin > than or = to 20 mg Amlodipine + Atorvastatin > than or = to 2.5/40 mg Ezetimibe + Simvastatin 10/80 mg Simvastatin 80mg Discharge Plan Admission Admit Date/Time: 09/20/24 16:14 Primary Reason for Your Visit: Debility. Attending Provider: Gt Calvo Chi Primary Care Provider: Alicia Mata Instructions Additional Instructions / Restrictions: Discharge home with 10/10/2024, [facility] PT/OT/SN, O2. Oxygen: Patient requires 2LPM of oxygen via nasal cannula d/t chronic respiratory failure with hypoxia, bilateral pneumonia; requires a concentrator and portable O2 tanks to allow patient to be mobile in the home and the community; O2 will improve the patient's condition in the home setting. Discharge Orders/Prescriptions Prescriptions: New metoprolol succinate 50 mg Tablet Extended Release 24 Hr 50 mg PO BID 30 Days Qty: 60 0RF Continued vitamin E (dl, acetate) 180 mg (400 unit) capsule 180 mg PO DAILY magnesium 250 mg tablet 250 mg PO DAILY furosemide 40 mg tablet 40 mg PO DAILY PRN (Reason: swelling) Dose Instruction: take 1 tablet by mouth once daily Rx Instructions: take 1 tablet by mouth once daily PRN losartan 50 mg tablet 50 mg PO DAILY folic acid 400 mcg tablet 0.4 mg PO QDAY selenium 200 mcg capsule 200 mcg PO QDAY ascorbic acid (vitamin C) 500 mg capsule 1,000 mg PO BID coenzyme Q10 100 mg capsule 200 mg PO DAILY multivitamin Tablet 1 tab PO DAILY aspirin 81 MG tablet 81 mg PO DAILY@0800 Qty: 0 0RF clopidogrel 75 mg tablet 75 mg PO DAILY Rx Instructions: take 1 tablet by mouth once daily levothyroxine 88 mcg tablet 88 mcg PO DAILY amlodipine 10 mg tablet 10 mg PO DAILY Rx Instructions: pt states pcp told her to take bid nitroglycerin 0.4 mg tablet, sublingual 0.4 mg SUBLINGUAL Q5-15M PRN (Reason: chest pain) 10 Days Qty: 25 3RF atorvastatin 40 mg tablet 40 mg PO DAILY Qty: 90 3RF isosorbide mononitrate 30 mg tablet extended release 24 hr 30 mg PO BID Qty: 180 3RF Discontinued acetaminophen 325 mg Tablet 650 mg PO Q6H PRN PRN (Reason: Pain 1-10 Or Fever >100.7) Qty: 0 0RF prednisone 20 mg Tablet 40 mg PO BREAKFAST Qty: 10 0RF enoxaparin 40 mg/0.4 mL Syringe 40 mg subcut DAILY@0600 Qty: 0 0RF metoprolol succinate 25 mg tablet extended release 24 hr 25 mg PO BID Qty: 180 3RF Referrals / Follow Up: Alicia Mata NP-C [Primary Care Provider] - Disposition Disposition (needs filled in before D/C Order can be placed): Home Health Service
[2024-10-06 22:45] VITALS: BP 121/54; PULSE 62
[2024-10-06] MEDS: MELATONIN 3 MG TABLET PO (22:45)
[2024-10-07] MEDS: Enoxaparin 40 MG/0.4 ML Syringe SC (05:30)
[2024-10-07] MEDS: Levothyroxine 88 MCG Tablet PO (05:31)
[2024-10-07 07:57] VITALS: BP 129/54; PULSE 61; RESP 17; TEMP 36.4; O2SAT 90
[2024-10-07] MEDS: Folic Acid 1 MG Tablet 0.5 MG PO (07:59)
[2024-10-07] MEDS: Aspirin 81 MG TAB.CHEW PO (07:59)
[2024-10-07] MEDS: Atorvastatin Calcium 40 MG Tablet PO (08:00)
[2024-10-07] MEDS: Losartan Potassium 100 MG Tablet PO (08:00)
[2024-10-07] MEDS: Vitamin E 400 UNITS Capsule PO (08:00)
[2024-10-07] MEDS: Menthol/Lanolin/Calamine/Znox 113 GM Tube 1 APPLIC TOPICAL ×2 (08:00→20:24)
[2024-10-07] MEDS: Isosorbide Mononitrate 30 MG Tablet PO ×2 (08:00→20:29)
[2024-10-07 08:01] VITALS: PULSE 61
[2024-10-07] MEDS: amLODIPine 10 MG Tablet PO (08:01)
[2024-10-07] MEDS: Magnesium Chloride 64 MG Delay Rel.Tablet 128 MG PO (08:01)
[2024-10-07] MEDS: Senna/Docusate Sodium 1 Tablet PO ×2 (08:01→20:23)
[2024-10-07] MEDS: Metoprolol(XL)Succ 50 MG Tablet PO ×2 (08:01→20:28)
[2024-10-07] MEDS: Clopidogrel Bisulfate 75 MG Tablet PO (08:01)
[2024-10-07] MEDS: Ascorbic Acid 500 MG Tablet 1000 MG PO ×2 (08:04→20:22)
--- NOTE | 2024-10-07 11:12 | CASEMGMT ---
Social Work SW completed BIMS () and PHQ-2 () for MDS assessment. Jahaira Pina LIGHT TECHNICIAN DENTAL INTERN
[2024-10-07] MEDS: Multivitamins,Therapeutic Tablet 1 TABLET PO (12:25)
[2024-10-07] MEDS: MELATONIN 3 MG TABLET PO (20:24)
[2024-10-07 20:28] VITALS: BP 130/57; PULSE 67
[2024-10-07 20:33] VITALS: PULSE 67; RESP 16; O2SAT 92
[2024-10-08] VITALS (10 sets, daily range): BP systolic 109–125; BP diastolic 48–59; PULSE 57–68; RESP 16–18; TEMP 36.7; O2SAT 86–95
[2024-10-08] MEDS: Levothyroxine 88 MCG Tablet PO (05:03)
[2024-10-08] MEDS: Enoxaparin 40 MG/0.4 ML Syringe SC (05:03)
[2024-10-08] MEDS: Aspirin 81 MG TAB.CHEW PO (07:39)
[2024-10-08] MEDS: Folic Acid 1 MG Tablet 0.5 MG PO (07:39)
[2024-10-08] MEDS: Magnesium Chloride 64 MG Delay Rel.Tablet 128 MG PO (07:40)
[2024-10-08] MEDS: Isosorbide Mononitrate 30 MG Tablet PO ×2 (07:40→20:08)
[2024-10-08] MEDS: Losartan Potassium 100 MG Tablet PO (07:40)
[2024-10-08] MEDS: Vitamin E 400 UNITS Capsule PO (07:40)
[2024-10-08] MEDS: Atorvastatin Calcium 40 MG Tablet PO (07:40)
[2024-10-08] MEDS: Clopidogrel Bisulfate 75 MG Tablet PO (07:41)
[2024-10-08] MEDS: Metoprolol(XL)Succ 50 MG Tablet PO ×2 (07:41→20:09)
[2024-10-08] MEDS: amLODIPine 10 MG Tablet PO (07:41)
[2024-10-08] MEDS: Senna/Docusate Sodium 1 Tablet PO ×2 (07:41→20:09)
[2024-10-08] MEDS: Ascorbic Acid 500 MG Tablet 1000 MG PO ×2 (07:42→20:09)
[2024-10-08] MEDS: Menthol/Lanolin/Calamine/Znox 113 GM Tube 1 APPLIC TOPICAL ×2 (07:49→20:11)
--- NOTE | 2024-10-08 09:48 | MDS.RN ---
Pain assessment for MDS complete.
[2024-10-08] MEDS: Multivitamins,Therapeutic Tablet 1 TABLET PO (13:25)
--- NOTE | 2024-10-08 16:24 | NURSING ---
concerned about patient's BP meds being adjusted while in hospital and wants Dr. Almaraz made aware with cardiology. Dr. Almaraz office contacted about changes and they are okay with current med changes. Patient made aware and she states she will make aware.
[2024-10-08] MEDS: MELATONIN 3 MG TABLET PO (20:09)
[2024-10-09] MEDS: Levothyroxine 88 MCG Tablet PO (05:02)
[2024-10-09] MEDS: Enoxaparin 40 MG/0.4 ML Syringe SC (05:02)
[2024-10-09] MEDS: Folic Acid 1 MG Tablet 0.5 MG PO (07:33)
[2024-10-09] MEDS: Aspirin 81 MG TAB.CHEW PO (07:33)
[2024-10-09] MEDS: Vitamin E 400 UNITS Capsule PO (07:34)
[2024-10-09] MEDS: Losartan Potassium 100 MG Tablet PO (07:34)
[2024-10-09] MEDS: Isosorbide Mononitrate 30 MG Tablet PO ×2 (07:35→20:53)
[2024-10-09] MEDS: Atorvastatin Calcium 40 MG Tablet PO (07:36)
[2024-10-09] MEDS: Clopidogrel Bisulfate 75 MG Tablet PO (07:37)
[2024-10-09] MEDS: amLODIPine 10 MG Tablet PO (07:37)
[2024-10-09] MEDS: Magnesium Chloride 64 MG Delay Rel.Tablet 128 MG PO (07:37)
[2024-10-09 07:38] VITALS: BP 122/53; PULSE 58
[2024-10-09] MEDS: Metoprolol(XL)Succ 50 MG Tablet PO ×2 (07:38→20:53)
[2024-10-09] MEDS: Ascorbic Acid 500 MG Tablet 1000 MG PO ×2 (07:38→20:53)
[2024-10-09] MEDS: Menthol/Lanolin/Calamine/Znox 113 GM Tube 1 APPLIC TOPICAL ×2 (07:44→20:51)
[2024-10-09 10:00] VITALS: BP 122/53; PULSE 58; RESP 18; TEMP 36.9; O2SAT 94
[2024-10-09] MEDS: Multivitamins,Therapeutic Tablet 1 TABLET PO (12:20)
[2024-10-09 20:53] VITALS: BP 129/62; PULSE 65
[2024-10-09] MEDS: MELATONIN 3 MG TABLET PO (20:53)
[2024-10-10] MEDS: Levothyroxine 88 MCG Tablet PO (05:22)
[2024-10-10] MEDS: Enoxaparin 40 MG/0.4 ML Syringe SC (05:22)
[2024-10-10 05:29] VITALS: PULSE 64; RESP 18; O2SAT 98
--- NOTE | 2024-10-10 07:22 | NURSING ---
patient c/o dysuria reports hx of frequent UTI's, requesting urinalysis prior to discharge this date, Dr. Calvo notified of patient request via secure backline text, new order received for UA C&S
[2024-10-10 08:35] VITALS: BP 123/49; PULSE 62; RESP 17; TEMP 36.9; O2SAT 93
[2024-10-10] MEDS: Aspirin 81 MG TAB.CHEW PO (08:38)
[2024-10-10] MEDS: Folic Acid 1 MG Tablet 0.5 MG PO (08:38)
[2024-10-10] MEDS: Losartan Potassium 100 MG Tablet PO (08:39)
[2024-10-10] MEDS: Menthol/Lanolin/Calamine/Znox 113 GM Tube 1 APPLIC TOPICAL (08:39)
[2024-10-10] MEDS: Vitamin E 400 UNITS Capsule PO (08:39)
[2024-10-10 08:40] VITALS: PULSE 62
[2024-10-10] MEDS: Isosorbide Mononitrate 30 MG Tablet PO (08:40)
[2024-10-10] MEDS: Metoprolol(XL)Succ 50 MG Tablet PO (08:40)
[2024-10-10] MEDS: Magnesium Chloride 64 MG Delay Rel.Tablet 128 MG PO (08:40)
[2024-10-10] MEDS: Clopidogrel Bisulfate 75 MG Tablet PO (08:40)
[2024-10-10] MEDS: Atorvastatin Calcium 40 MG Tablet PO (08:40)
[2024-10-10] MEDS: amLODIPine 10 MG Tablet PO (08:40)
[2024-10-10] MEDS: Ascorbic Acid 500 MG Tablet 1000 MG PO (08:41)
[2024-10-10] MEDS: Ciprofloxacin 250 MG Tablet PO (09:08)
[2024-10-10 13:03] LABS: Mucous, Urine 0 SEEN /hpf (<or=2+); Red Blood Cells-Urine 0 SEEN /hpf (0-5); Squamous Epithelial Cells - UA 0 SEEN /hpf (5-10)
[2024-10-10 13:33] LABS: Color, Urine Yellow (Yellow); Glucose, Dipstick Normal (Normal); Ketone-Dipstick Negative (Negative); Leukocyte Esterase-Dipstick 500 /ul (Negative); Nitrite-Dipstick Positive (Negative); Occult Blood-Urine 10 /ul (Negative); Protein-Dipstick 30 mg/dl (Negative); Urine Bilirubin Dipstick Negative (Negative); Urine Clarity Sl. Cloudy (Clear); Urine Urobilinogen Normal (Normal)
[2024-10-10 13:41] LABS: White Blood Cells 50-100 SEEN /hpf (0-5)
[2024-10-10 13:42] LABS: Bacteria 3+ /hpf (None Seen)
== END 2024-10-10 10:20 | disposition home health service (06) | DRG 193 ==
PROVIDERS: Admitting Provider Family Medicine Geriatric Medicine; PCP Nurse Practitioner Family; Referring Provider Family Medicine Geriatric Medicine; Visit Provider Family Medicine Geriatric Medicine
DX: J18.9 Pneumonia, unspecified organism (principal); J96.21 Acute and chronic respiratory failure with hypoxia; D59.10 Autoimmune hemolytic anemia, unspecified; N39.0 Urinary tract infection, site not specified; B96.1 Klebsiella pneumoniae [K. pneumoniae] as the cause of diseases classified elsewhere; Z99.81 Dependence on supplemental oxygen; I10 Essential (primary) hypertension; E03.9 Hypothyroidism, unspecified; K76.0 Fatty (change of) liver, not elsewhere classified; Z95.2 Presence of prosthetic heart valve; G47.33 Obstructive sleep apnea (adult) (pediatric); E53.8 Deficiency of other specified B group vitamins; E83.42 Hypomagnesemia; I25.10 Atherosclerotic heart disease of native coronary artery without angina pectoris; D86.9 Sarcoidosis, unspecified; E78.00 Pure hypercholesterolemia, unspecified; Z79.82 Long term (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 aspirin; Z79.890 Hormone replacement therapy; Z79.02 Long term (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 antithrombotics/antiplatelets; Z95.5 Presence of coronary angioplasty implant and graft; G47.00 Insomnia, unspecified; Z79.899 Other long term (current) drug therapy
CPT/HCPCS: 36415; 80048; 81001; 82962; 85025; 87077; 87086; 87088; 94667; 94668; 94762; 97110; 97116; 97162; 97166; 97530; 97535; A4216

== ENCOUNTER → 2025-01-07 | Outpatient (CLI) | payer MEDICARE, OTHER, SELFPAY ==
[2023-11-17 10:44] VITALS: BMI 26.2
== END | disposition home or self-care (01) ==
LOC: LABSPEC 16:01
PROVIDERS: PCP Nurse Practitioner Family; Visit Provider Nurse Practitioner Family
DX: N39.0 Urinary tract infection, site not specified (principal)
CPT/HCPCS: 87077; 87086; 87088; 87186

== ENCOUNTER → 2025-01-18 | Outpatient (CLI) | payer MEDICARE, OTHER, SELFPAY ==
[2023-11-17 10:44] VITALS: BMI 26.2
[2025-01-18 11:45] LABS: AST(SGOT) 25 U/L (<=31); Alanine Aminotransfer ALT/SGPT 23 U/L (<=34); Albumin, Serum 4.2 g/dL (3.4-4.8); Alkaline Phosphatase 75 U/L (35-104); Bilirubin, Direct 0.16 mg/dL (0.00-0.30); Cholesterol 128 mg/dL (<=200); Globulin 3.5 g/dL (2.2-4.2); Low Density Lipoprotein Calc. 49 mg/dL; Triglycerides 217 mg/dL; Very Low Density Lipoprotein 43 mg/dL (5-40); cholesterol:hdl ratio screen 3.62
== END | disposition home or self-care (01) ==
LOC: LAB 07:38
PROVIDERS: PCP Nurse Practitioner Family; Referring Provider Nurse Practitioner Gerontology; Visit Provider Nurse Practitioner Gerontology
DX: I25.10 Atherosclerotic heart disease of native coronary artery without angina pectoris (principal)
CPT/HCPCS: 36415; 80061; 80076

== ENCOUNTER 2025-04-14 12:29 | Observation (INO) | payer MEDICARE, OTHER, SELFPAY ==
[2023-11-17 10:44] VITALS: BMI 26.2
[2025-04-14] VITALS (22 sets, daily range): BP systolic 134–178; BP diastolic 54–99; PULSE 55–125; RESP 10–20; TEMP 36.6–37; O2SAT 94–100; BMI 29.7; BMI 28.0
--- NOTE | 2025-04-14 13:07 | ED.RN ---
This nurse went to start patient's IV in triage. Patient stated that the left side of her face was feeling numb. Both sides of her face assessed and patient states that the left side felt different than the right side. Dr. Barnes notified of this change. Per Dr. Barnes, this nurse is to observe patient and watch for any further change.
[2025-04-14 13:29] LABS: Hematocrit 37.8 % (37-47); Hemoglobin 12.7 g/dL (12.0-15.0); Immature Granulocytes Count 0.040 X10^3/uL (0.0-0.0); Mean Corp Hgb Conc 33.6 g/dL (32-36); Mean Corpuscular Volume 91.7 fL (81-99); Mean Platelet Vol. 9.9 fl (6.2-12.0); NRBC Flagged by Analyzer 0 % (0-5); Platelet Count 218 K/mm3 (150-450); RBC Distribution Width CV 14.3 % (11.6-14.6); RBC Distribution Width SD 48.4 fl (35.1-43.9); Red Blood Count 4.12 M/mm3 (4.2-5.4); White Blood Count 8.6 K/mm3 (4.4-11.0)
--- NOTE | 2025-04-14 13:29 | EKG12_ITS ---
Test Reason : Blood Pressure : */* mmHG Vent. Rate : 59 BPM Atrial Rate : 59 BPM P-R Int : 170 ms QRS Dur : 88 ms QT Int : 438 ms P-R-T Axes : 61 -25 36 degrees QTcB Int : 433 ms Sinus bradycardia Otherwise normal ECG Confirmed by IVA WYNN, DANA ([id number]), market editor SUMI PEREZ ([id number]) on 04/16/2025 7:58:52 AM Referred By: CLOVIS Confirmed By: DANA ENRIQUE MD
--- NOTE | 2025-04-14 13:29 | RAD_ITS ---
PROCEDURE: CHEST PA AND LATERAL 04/14/2025 REASON FOR EXAM: CHEST PAIN TECHNIQUE: Procedure Code: RADCXR Modality: DX Procedure: CHEST PA AND LATERAL COMPARISON: September 18, 2024 FINDINGS: Hardware: EKG leads are present. Aortic valve replacement. Heart: Mildly enlarged. TAVR. Mediastinum: There are atherosclerotic calcifications of the thoracic aorta. Lungs: There is improved aeration of the lungs. Small amount of airspace disease or organizing pneumonia is seen at the left lung base. Bones: Degenerative changes are identified within the thoracic spine. RAD/Chest PA and Lateral IMPRESSION: Improved aeration of the lungs except for the left lung base. Pneumonia not ex cluded. Reading Location: [id number]
[2025-04-14] MEDS: 0.9% Normal Saline (1000mL) 1,000 ML 999 ML IV (13:45)
[2025-04-14 13:52] LABS: Anion Gap 11 (5-15); BUN 18 mg/dL (4-19); BUN/Creat Ratio 19.7 RATIO (10-20); Calcium,Total 10.1 mg/dL (7.6-11.0); Carbon Dioxide 29.9 mmol/L (21.0-32.0); Chloride 99 mmol/L (98-108); Estimated Creatinine Clearance 40.48 ml/min (50-250); Glucose 126 mg/dL (70-99); Potassium 4.2 mmol/L (3.3-5.1)
[2025-04-14 14:16] LABS: Prothrombin Time (Protime)PT. 14.1 SECONDS (11.7-14.9)
[2025-04-14 14:17] LABS: Partial Thromboplast Time 25.0 Seconds (24.1-36.2)
[2025-04-14 14:30] LABS: Pro- Brain NATRIURETIC PEPTIDE 254 pg/mL (<=1800); Troponin T High Sensitivity 14 ng/L (<=14)
--- NOTE | 2025-04-14 15:10 | EX.ED.DYSGE1 ---
HPI History of Present Illness Chief Complaint: Dizziness Narrative Narrative: Patient is a 89-year-old female with past medical history of CAD status post 19 stents, anemia, hypertension, hypothyroidism, hypercholesteremia, ABDIAS, carotid artery disease, hypothyroidism who presents to the emergency department with a chief complaint of chest discomfort as well as lightheadedness. Patient states that she woke up at 6:00 and in triage noted states that she was dizzy after clarification with her she was not dizzy she was lightheaded. States that she had a dull ache in her left shoulder and she states that they were on their way to town anyhow therefore with her symptoms they stopped here for her to be evaluated. She states that the ache has been constant and states that she has not had a stress test recently. Patient denies any travel history denies history of blood clots. [facility] Medical History CAD (coronary artery disease) Over 65 years old Sarcoidosis COVID-19 Hemolytic anemia Anemia Non-ST elevation (NSTEMI) myocardial infarction Elevated troponin Hypertension Wears glasses Wears dentures Thyroid disease High cholesterol Non-smoker BiPAP (biphasic positive airway pressure) dependence On home oxygen therapy Shortness of breath on exertion Loss of appetite Chronic cough History of echocardiogram History of stress test Cardiology follow-up encounter Chronic hypoxemic respiratory failure Mediastinal lymphadenopathy Acute febrile illness Essential hypertension Angina pectoris Chest pain ABDIAS (obstructive sleep apnea) Anginal equivalent Nonrheumatic mitral (valve) insufficiency Nonrheumatic aortic (valve) insufficiency Nonrheumatic aortic (valve) stenosis Carotid artery disease Atherosclerotic heart disease of [place] coronary artery without angina pectoris CAD (coronary artery disease) Valvular heart disease Hypothyroidism Aortic insufficiency Hyperlipidemia Home Medications ?Medication ?Instructions ?Recorded ?Last Taken ?Type multivitamin 1 tab PO DAILY vitamin 02/22/21 09/06/24 History aspirin 81 mg tablet,delayed 81 mg PO DAILY@0800 HEART [facility] 02/27/21 09/20/24 Rx release #0 tabs nitroglycerin 0.4 mg sublingual 0.4 mg sublingual Q5-15M PRN chest 03/01/21 Unknown Rx tablet pain 10 days #25 tabs magnesium 250 mg tablet 250 mg PO DAILY Check with primary 05/30/21 09/20/24 History doctor vitamin E (dl, acetate) 180 mg 180 mg PO DAILY Check with primary 05/30/21 09/06/24 History (400 unit) capsule doctor ascorbic acid (vitamin C) 500 mg 1,000 mg PO BID supplement 08/29/21 09/06/24 History capsule coenzyme Q10 100 mg capsule 200 mg PO DAILY coenzyme 08/29/21 09/06/24 History furosemide 40 mg tablet 40 mg PO DAILY PRN swelling 12/30/22 Unknown History folic acid 400 mcg tablet 0.4 mg PO QDAY supplement 05/12/24 09/06/24 History selenium 200 mcg capsule 200 mcg PO QDAY Supplement 05/12/24 09/06/24 History amlodipine 10 mg tablet 10 mg PO DAILY BP 09/06/24 09/20/24 History levothyroxine 88 mcg tablet 88 mcg PO DAILY Thyroid 09/06/24 09/20/24 History clopidogrel 75 mg tablet 75 mg PO DAILY supplement 09/20/24 09/20/24 History metoprolol succinate 50 mg 50 mg PO BID #180 tabs 01/17/25 Unknown Rx tablet,extended release 24 hr losartan 50 mg tablet 50 mg PO DAILY #90 tabs 02/25/25 Unknown Rx isosorbide mononitrate 30 mg 30 mg PO BID CAD #180 tabs 03/08/25 Unknown Rx tablet,extended release 24 hr atorvastatin 40 mg tablet 40 mg PO DAILY Cholestrol #90 tabs 03/14/25 Unknown Rx Allergy/AdvReac Type Severity Reaction Status Date / Time Iodinated Contrast Media Allergy Intermediate Rash Verified 04/14/25 12:34 (Iodinated Contrast- Oral and IV Dye) ramipril (From Altace) AdvReac Severe cough Verified 04/14/25 12:34 ticagrelor (From Brilinta) AdvReac Dyspnea Verified 04/14/25 12:34 Family History Mother , Age 63 Myocardial infarction Father , Age 28 Colon cancer Other Heart disease Surgical History H/O cataract removal with insertion of prosthetic lens S/P TAVR (transcatheter aortic valve replacement) Hx of colonoscopy History of cardiac catheterization History of axillary surgery History of percutaneous transluminal coronary angioplasty (04/16/19) Presence of stent in coronary artery (04/09/21) History of cholecystectomy Social History household members: spouse Smoking Status: Never smoker second hand exposure: No alcohol intake: never substance use type: does not use caffeine: Yes Type: coffee Number of servings: 1 what type of physical activity do you participate in: none frequency: does not exercise ROS ROS ED ROS Narrative Constitutional: Denies any fevers, chills, headaches Eyes: Denies double vision Cardiovascular: Complains of chest discomfort radiating to her left shoulder as noted above denies palpitations Respiratory: Denies coughing wheezing shortness of breath Abdomen: Denies abdominal pain : Denies urinary symptoms Neurological: Denies any numbness, weeks, tingling Musculoskeletal: Denies back pain Skin: Denies any rashes or lesions EXAM Physical Exam Narrative Exam Narrative: General: Patient was lying in bed rest comfortably did not appear to be in acute distress Head: Atraumatic, normocephalic Eyes: PERRL bilaterally, EOMI bilaterally, no conjunctival injection noted Neck: Soft, supple, trachea midline Cardiovascular: Regular rate and rhythm Respiratory: Clear to auscultation bilaterally Abdomen: No tenderness to palpation Extremities: +4/5 strength noted in the bilateral lower extremities radial pulses +2/4 in the bilateral extremities Neurological: Patient follow commands and that she was at [facility] the year is 2024 NIH of 0 GCS 15 Skin: Warm, dry, intact no rashes or lesions noted Const Vital Signs: 04/14/25 12:29 04/14/25 13:39 04/14/25 13:39 Temperature 98 F Temperature Source Oral Pulse Rate 125 H 61 Respiratory Rate 20 H 13 Respiratory Effort Respiratory Depth Respiratory Pattern Blood Pressure 171/59 H 178/57 H Blood Pressure Mean 96 97 Pulse Ox 99 100 Oxygen Delivery Method Nasal Cannula Nasal Cannula Nasal Cannula Oxygen Flow Rate (L/min) 2 2 04/14/25 13:46 04/14/25 14:14 04/14/25 14:15 Temperature Temperature Source Pulse Rate 59 L 61 Respiratory Rate 14 14 Respiratory Effort Normal Non-Labored Respiratory Depth Normal Respiratory Pattern Normal Blood Pressure 154/58 H Blood Pressure Mean 90 Pulse Ox 100 100 Oxygen Delivery Method Nasal Cannula Nasal Cannula Oxygen Flow Rate (L/min) 2 2 04/14/25 14:30 04/14/25 14:42 04/14/25 14:48 Temperature Temperature Source Pulse Rate 63 Respiratory Rate 18 Respiratory Effort Respiratory Depth Respiratory Pattern Blood Pressure Blood Pressure Mean Pulse Ox 100 96 96 Oxygen Delivery Method Nasal Cannula Oxygen Flow Rate (L/min) 2 04/14/25 14:49 04/14/25 15:00 04/14/25 15:15 Temperature Temperature Source Pulse Rate 67 62 59 L Respiratory Rate 10 L 11 L Respiratory Effort Respiratory Depth Respiratory Pattern Blood Pressure 166/57 H 156/63 H 157/62 H Blood Pressure Mean 89 91 90 Pulse Ox 97 96 94 Oxygen Delivery Method Nasal Cannula Nasal Cannula Oxygen Flow Rate (L/min) 2 2 04/14/25 15:24 Temperature 98.6 F Temperature Source Pulse Rate 80 Respiratory Rate 14 Respiratory Effort Respiratory Depth Respiratory Pattern Blood Pressure 157/62 H Blood Pressure Mean 93 Pulse Ox 100 Oxygen Delivery Method Oxygen Flow Rate (L/min) MDM MDM MDM Narrative Medical decision making narrative: Patient is a 89-year-old female who presents to the emergency department the chief complaint of chest discomfort and lightheadedness. On the differential diagnosis includes but not limited to ACS, pneumonia, pneumothorax, electrolyte abnormality. Once workup is obtained and reviewed she will be reevaluated. Patient's CBC showed no evidence leukocytosis white blood count normal 8.6, hemoglobin 12.7, platelet count was noted be 218. Patient's INR normal 1.1, PT of 14.1. Patient sodium is 140, potassium normal 4.2, creatinine was 0.92. Patient's troponin was noted be 14 delta pending. Patient's chest x-ray reviewed by myself and by radiology which showed improved aeration of the lungs pneumonia is not excluded because there is haziness of the left lung base she does not have any respiratory symptoms therefore I have low suspicion for this. Patient's EKG reviewed which showed sinus bradycardia with rate of 59 bpm TN interval 170. Given the patient's significant cardiac history do believe she will warrant admission for stress testing will discuss case with hospitalist. Discussed case with hospitalist Dr. Ray who accept the patient for admission. Patient was notified is agreeable to plan as well as significant other bedside all question concerns answered. Lab Data Labs: Laboratory Results - last 24 hr 04/14/25 04/14/25 13:15 13:36 WBC 8.6 RBC 4.12 L Hgb 12.7 Hct 37.8 MCV 91.7 MCH 30.8 MCHC 33.6 RDW Std Deviation 48.4 H RDW Coeff of Martha 14.3 Plt Count 218 MPV 9.9 Immature Gran % (Auto) 0.500 Neut % (Auto) 73.8 H Lymph % (Auto) 14.3 L [place] % (Auto) 8.4 Eos % (Auto) 2.2 Baso % (Auto) 0.8 Absolute Neuts (auto) 6.3 Absolute Lymphs (auto) 1.22 Nucleated RBC % 0 PT 14.1 INR 1.1 APTT 25.0 Sodium 140 Potassium 4.2 Chloride 99 Carbon Dioxide 29.9 Anion Gap 11 BUN 18 Creatinine 0.92 Estim Creat Clear Calc 40.48 L Est GFR (MDRD) Non-Af 61 BUN/Creatinine Ratio 19.7 Glucose 126 H Calcium 10.1 Troponin T High Sens 14 D NT pro BNP II 254 Radiography Diagnostic Testing: Clinical Impression(s) from Imaging Studies Chest X-Ray 04/14/25 13:29 IMPRESSION: Improved aeration of the lungs except for the left lung base. Pneumonia not excluded. Reading Location: [id number] Discharge Plan Dx/Rx/DC Orders Clinical Impression: CAD (coronary artery disease), Presence of stent in coronary artery, ABDIAS (obstructive sleep apnea), Essential hypertension, Chest pain Disposition Disposition: Acute Care Hospital [facility]
--- NOTE | 2025-04-14 15:47 | HP.PCM.HOS_ITS ---
HPI - General General Date of Admission: 04/14/25 Date of Service: 04/14/25 Chief Complaint: Dizziness/lightheadedness and chest discomfort HPI Narrative PRECIOUS LEIGH, is a 89 F who presented to [facility] ED on 04/14/2025 with dizziness/lightheadedness and chest discomfort. Medical history significant for CAD with extensive history of multiple stenting procedures between 2003 and 2020, s/p TAVR in 2023, chronic respiratory failure on 2 L nasal cannula, hypertension and hyperlipidemia. She follows with cardiology here, last office visit in January. She presented from home today with lightheadedness/dizziness and chest discomfort. Notes that she had lightheadedness shortly after waking up this morning. She had mild chest discomfort along with this radiating down to her left arm. She currently denies either of the symptoms at rest. In the ED she was hypertensive to the 150s to 160s systolic, was otherwise in normal sinus rhythm and stable on 2 L nasal cannula at rest. EKG showed normal sinus rhythm with no ischemic changes. Troponins negative x 2. BNP normal. Chest x-ray unremarkable. However, given her history as above, hospitalist was contacted for admission. I saw the patient at bedside in the ED. Patient was sitting back comfortably in bed, conversing normally, in no acute distress. Denied any lightheadedness or chest pain currently. Denied any other acute concerns at this time. Will be admitted for further management. [facility] Medical History CAD (coronary artery disease) Over 65 years old Sarcoidosis COVID-19 Hemolytic anemia Anemia Non-ST elevation (NSTEMI) myocardial infarction Elevated troponin Hypertension Wears glasses Wears dentures Thyroid disease High cholesterol Non-smoker BiPAP (biphasic positive airway pressure) dependence On home oxygen therapy Shortness of breath on exertion Loss of appetite Chronic cough History of echocardiogram History of stress test Cardiology follow-up encounter Chronic hypoxemic respiratory failure Mediastinal lymphadenopathy Acute febrile illness Essential hypertension Angina pectoris Chest pain ABDIAS (obstructive sleep apnea) Anginal equivalent Nonrheumatic mitral (valve) insufficiency Nonrheumatic aortic (valve) insufficiency Nonrheumatic aortic (valve) stenosis Carotid artery disease Atherosclerotic heart disease of [place] coronary artery without angina pectoris CAD (coronary artery disease) Valvular heart disease Hypothyroidism Aortic insufficiency Hyperlipidemia Home Medications ?Medication ?Instructions ?Recorded ?Last Taken ?Type multivitamin 1 tab PO DAILY vitamin 02/2204/14/25 History aspirin 81 mg tablet,delayed 81 mg PO DAILY@0800 [facility] 02/27/21 04/14/25 Rx release #0 tabs nitroglycerin 0.4 mg sublingual 0.4 mg sublingual Q5-1 5M PRN chest 03/01/21 Unknown Rx tablet pain 10 days #25 tabs magnesium 250 mg tablet 250 mg PO DAILY Check with p rimary 05/30/21 04/13/25 History doctor vitamin E (dl, acetate) 180 mg 180 mg PO DAILY Check w ith primary 05/30/21 04/13/25 History (400 unit) capsule doctor ascorbic acid (vitamin C) 500 mg 1,000 mg PO BID suppl ement 08/29/21 04/13/25 History capsule coenzyme Q10 100 mg capsule 100 mg PO DAILY supplement 08/29/21 04/14/25 History furosemide 40 mg tablet 40 mg PO DAILY PRN swelling 12/30/22 Unknown History folic acid 400 mcg tablet 0.4 mg PO QDAY supplement 04/14/25 History selenium 200 mcg capsule 200 mcg PO QDAY Supplement 1 07/12/23 04/13/25 History amlodipine 10 mg tablet 10 mg PO DAILY BP 09/06/24 1 History levothyroxine 88 mcg tablet 88 mcg PO DAILY Thyroid 04/14/25 History clopidogrel 75 mg tablet 75 mg PO DAILY heart 5 04/14/25 History metoprolol succinate 50 mg 50 mg PO BID #180 tabs 10/0804/14/25 Rx tablet,extended release 24 hr losartan 50 mg tablet 50 mg PO DAILY #90 tabs 02/1404/14/25 Rx isosorbide mononitrate 30 mg 30 mg PO BID CAD #180 tab s 03/08/25 04/14/25 Rx tablet,extended release 24 hr atorvastatin 40 mg tablet 40 mg PO DAILY Cholestrol #9 0 tabs 03/14/25 04/13/25 Rx Allergy/AdvReac Type Severity Reaction Status Date / Time Iodinated Contrast Media Allergy Intermediate Rash Verified 04/14/25 12:34 (Iodinated Contrast- Oral and IV Dye) ramipril (From Altace) AdvReac Severe cough Verified 04/14/25 12:34 ticagrelor (From Brilinta) AdvReac Dyspnea Verified 04/14/25 12:34 Family History Mother , Age 63 Myocardial infarction Father , Age 28 Colon cancer Other Heart disease Surgical History H/O cataract removal with insertion of prosthetic lens S/P TAVR (transcatheter aortic valve replacement) Hx of colonoscopy History of cardiac catheterization History of axillary surgery History of percutaneous transluminal coronary angioplasty (04/16/19) Presence of stent in coronary artery (04/09/21) History of cholecystectomy Social History (Updated 04/14/25 @ 18:12 by Pavithra Cherry) household members: spouse Smoking Status: Never smoker second hand exposure: No alcohol intake: never substance use type: does not use caffeine: Yes Type: coffee Number of servings: 1 what type of physical activity do you participate in: none frequency: does not exercise ROS Constitutional Constitutional: Denies chills, fatigue, fever(s) or weakness Eyes Eyes: Denies change in vision Cardiovascular Cardiovascular: Denies chest pain, dyspnea on exertion, edema, lightheadedness, orthopnea or palpitations Respiratory/Chest Respiratory/Chest: Denies cough, productive cough, shortness of breath at rest or wheezing Gastrointestinal Gastrointestinal: Denies abdominal pain, constipation, diarrhea, nausea or vomiting Genitourinary Genitourinary: Denies dysuria Musculoskeletal Musculoskeletal: Denies arthralgias or myalgias Neurologic Neurologic: Denies dizziness, focal weakness, headache(s), numbness or tingling Vital Signs Vital Signs Vital Signs: 04/14/25 12:29 04/14/25 13:39 04/14/25 13:39 Temperature 98 F Temperature Source Oral Pulse Rate 125 H 61 Respiratory Rate 20 H 13 Respiratory Effort Respiratory Depth Respiratory Pattern Blood Pressure 171/59 H 178/57 H Blood Pressure Mean 96 97 Pulse Ox 99 100 Oxygen Delivery Method Nasal Cannula Nasal Cannula Nasal Cannula Oxygen Flow Rate (L/min) 2 2 04/14/25 13:46 04/14/25 14:14 04/14/25 14:15 Temperature Temperature Source Pulse Rate 59 L 61 Respiratory Rate 14 14 Respiratory Effort Normal Non-Labored Respiratory Depth Normal Respiratory Pattern Normal Blood Pressure 154/58 H Blood Pressure Mean 90 Pulse Ox 100 100 Oxygen Delivery Method Nasal Cannula Nasal Cannula Oxygen Flow Rate (L/min) 2 2 04/14/25 14:30 04/14/25 14:42 04/14/25 14:48 Temperature Temperature Source Pulse Rate 63 Respiratory Rate 18 Respiratory Effort Respiratory Depth Respiratory Pattern Blood Pressure Blood Pressure Mean Pulse Ox 100 96 96 Oxygen Delivery Method Nasal Cannula Oxygen Flow Rate (L/min) 2 04/14/25 14:49 04/14/25 15:00 04/14/25 15:15 Temperature Temperature Source Pulse Rate 67 62 59 L Respiratory Rate 10 L 11 L Respiratory Effort Respiratory Depth Respiratory Pattern Blood Pressure 166/57 H 156/63 H 157/62 H Blood Pressure Mean 89 91 90 Pulse Ox 97 96 94 Oxygen Delivery Method Nasal Cannula Nasal Cannula Oxygen Flow Rate (L/min) 2 2 04/14/25 15:24 Temperature 98.6 F Temperature Source Pulse Rate 80 Respiratory Rate 14 Respiratory Effort Respiratory Depth Respiratory Pattern Blood Pressure 157/62 H Blood Pressure Mean 93 Pulse Ox 100 Oxygen Delivery Method Oxygen Flow Rate (L/min) Weight Weight: 73.663 kg Body Mass Index (BMI) 29.7 Physical Exam Const alert, oriented x3, no apparent distress and average body habitus Constitutional Narrative: Elderly female, mildly fatigued appearing, otherwise sitting back comfortably in bed, conversing normally, in no acute distress. General Appearance: cooperative and comfortable HEENT normocephalic, head/scalp atraumatic, hearing grossly normal bilaterally, nasal mucous membranes and turbinates normal and moist oral mucous membranes Eyes PERRL, EOMs intact bilaterally and conjunctivae normal Neck full ROM Chest inspection of chest normal Resp normal respiratory effort, normal air movement, no use of accessory muscles and clear to auscultation bilaterally Cardio regular rate, regular rhythm, no murmurs and peripheral pulses 2+ throughout GI normal to inspection, nondistended, normoactive bowel sounds, soft to palpation, non-tender and non-distended Back/Spine normal ROM Extremity normal to inspection, full ROM and no pedal edema Skin no rashes or lesions noted Psych mental status grossly normal Results Lab / Micro Data 04/14/25 13:15 04/14/25 13:15 Labs: Laboratory Results - last 24 hr 04/14/25 13:15: WBC 8.6, RBC 4.12 L, Hgb 12.7, Hct 37.8, MCV 91.7, MCH 30.8, MCHC 33.6, RDW Std Deviation 48.4 H, RDW Coeff of Martha 14.3, Plt Count 218, MPV 9.9, Immature Gran % (Auto) 0.500, Neut % (Auto) 73.8 H, Lymph % (Auto) 14.3 L, [place] % (Auto) 8.4, Eos % (Auto) 2.2, Baso % (Auto) 0.8, Absolute Neuts (auto) 6.3, Absolute Lymphs (auto) 1.22, Nucleated RBC % 0, Sodium 140, Potassium 4.2, Chloride 99, Carbon Dioxide 29.9, Anion Gap 11, BUN 18, Creatinine 0.92, Estim Creat Clear Calc 40.48 L, Est GFR (MDRD) Non-Af 61, BUN/Creatinine Ratio 19.7, G lucose 126 H, Calcium 10.1, Troponin T High Sens 14 D, NT pro BNP II 254 04/14/25 13:36: PT 14.1, INR 1.1, APTT 25.0 Imaging Radiology Impression Chest X-Ray 04/14/25 13:29 IMPRESSION: Improved aeration of the lungs except for the left lung base. Pneumonia not excluded. Reading Location: [id number] Assessment & Plan Assessment/Plan (1) Chest pain: PLAN: Plan Patient is an 89-year-old female who presented [facility] ED on 04/14/2025 with chest discomfort and lightheadedness. 1. Chest discomfort with lightheadedness ? Admit under observation status to PCU. Significant cardiac history as below. Presented with lightheadedness with chest discomfort reportedly radiating to the left arm; had pain in the past like this with coronary ischemia. EKG with normal sinus rhythm, no ST changes. Troponins negative x 3. Chest x-ray unremarkable. Last echo in July showed EF 70%, mild enlarged LA, mild pulmonary hypertension, no other concerning findings. Will order nuclear stress test for tomorrow morning for further evaluation. If negative, patient should be fine for discharge home tomorrow. 2. History of CAD with extensive stenting, history of aortic stenosis s/p TAVR, hypertension, hyperlipidemia ? Follows with cardiology, last office visit in January. Hypertensive to the 150s to 160s systolic in the ED. Will hold home Toprol for stress test tomorrow. Otherwise okay to continue home aspirin, statin, Plavix, amlodipine, nitrate and losartan. 3. Hypothyroidism ? TSH ordered. Continue home Synthroid. 4. Chronic hypoxic respiratory failure ? Stable on home 2 L nasal cannula at rest on admit. Chest x-ray with no concerning findings noted. DVT prophylaxis: Lovenox CODE STATUS: Full code, verified Expected disposition: Home, 1 to 2 days Total clinical time spent by myself addressing the patient's medical issues, reviewing all the data, and collaborating with patient's care team: 63 minutes. Charges/Coding Visit Charges Inpatient E&M: 46436 Init Hosp L2
[2025-04-14 16:08] LABS: Troponin T High Sens 2 HR 13 ng/L (<=14)
[2025-04-14 18:19] LABS: Troponin T High Sens 4 HR 14 ng/L (<=14)
--- NOTE | 2025-04-14 18:26 | EKG12_ITS ---
Test Reason : CP ADMISISON Blood Pressure : */* mmHG Vent. Rate : 60 BPM Atrial Rate : 60 BPM P-R Int : 174 ms QRS Dur : 82 ms QT Int : 436 ms P-R-T Axes : 78 -17 18 degrees QTcB Int : 436 ms Normal sinus rhythm Normal ECG When compared with ECG of 14-Apr-2025 14:05, MANUAL COMPARISON REQUIRED DATA IS UNCONFIRMED Confirmed by IVA WYNN, DANA ([id number]), assignment editor SUMI PEREZ ([id number]) on 04/16/2025 8:05:06 AM Referred By: Confirmed By: DANA ENRIQUE MD
[2025-04-14] MEDS: 0.9% Saline Lock 10 ML Syringe IV (22:39)
[2025-04-15 04:30] VITALS: BP 137/61; PULSE 66; RESP 16; TEMP 36.6; O2SAT 99
[2025-04-15 05:07] LABS: Hematocrit 32.3 % (37-47); Hemoglobin 11.0 g/dL (12.0-15.0); Mean Corp Hgb Conc 34.1 g/dL (32-36); Mean Corpuscular Volume 90.7 fL (81-99); Mean Platelet Vol. 10.1 fl (6.2-12.0); Platelet Count 207 K/mm3 (150-450); RBC Distribution Width CV 14.2 % (11.6-14.6); RBC Distribution Width SD 47.9 fl (35.1-43.9); Red Blood Count 3.56 M/mm3 (4.2-5.4); White Blood Count 6.9 K/mm3 (4.4-11.0)
--- NOTE | 2025-04-15 05:55 | EKG12_ITS ---
Test Reason : STRESS TEST Blood Pressure : */* mmHG Vent. Rate : 60 BPM Atrial Rate : 60 BPM P-R Int : 184 ms QRS Dur : 90 ms QT Int : 432 ms P-R-T Axes : 61 0 29 degrees QTcB Int : 432 ms Normal sinus rhythm with sinus arrhythmia Nonspecific ST abnormality Abnormal ECG Confirmed by DANA ENRIQUE MD [id number]), non linear editor SUMI PEREZ ([id number]) on 04/16/2025 8:04:59 AM Referred By: SERENA Confirmed By: DANA ENRIQUE MD
[2025-04-15 06:23] LABS: Anion Gap 11 (5-15); BUN 14 mg/dL (4-19); BUN/Creat Ratio 16.1 RATIO (10-20); Calcium,Total 9.1 mg/dL (7.6-11.0); Carbon Dioxide 25.0 mmol/L (21.0-32.0); Chloride 103 mmol/L (98-108); Estimated Creatinine Clearance 44.34 ml/min (50-250); Glucose 105 mg/dL (70-99); Potassium 4.1 mmol/L (3.3-5.1)
[2025-04-15] MEDS: Aspirin E.C. 81 MG Tablet PO (06:24)
[2025-04-15] MEDS: 0.9% Saline Lock 10 ML Syringe IV (06:28)
[2025-04-15 12:03] VITALS: BP 148/59; PULSE 62; RESP 14; TEMP 36.6; O2SAT 99
--- NOTE | 2025-04-15 13:25 | STRESSREP ---
Stress Test Report Pharmacologic myocardial perfusion stress test. 89-year-old lady with a history of chest pain. Resting EKG demonstrates normal sinus rhythm with a rate of 65 bpm. Resting blood pressure is 158/70 mmHg. 0.4 mg of regadenoson was infused per usual protocol followed by rapid intravenous saline flush injection. Continuous EKG monitoring was performed. The maximum heart rate was 80 bpm which was 60% of max impacted heart rate the maximum workload was 1 metabolic equivalent. At rest there were no ST or T wave changes noted to suggest ischemia and at peak infusion nonspecific ST changes were noted which did not meet the criteria for ischemia. No clinical angina is noted. The final blood pressure was 146/74 mmHg. Myocardial perfusion protocol. 11.8 mCi of technetium 99m sestamibi was injected at rest. 0.4 mg of regadenoson was infused per usual protocol. At peak infusion 33 mCi of technetium 99m sestamibi was injected stress images were obtained stress and rest images were reconstructed and compared in the short axis vertical long and horizontal long axis. Gated images were also obtained. Perfusion SPECT analysis: Review of the stress images demonstrate normal uptake of tracer noted in all areas of the myocardium. The resting images similar demonstrated normal uptake of tracer noted in all areas of the myocardium. No areas of reversibility are noted to suggest ischemia and no previous infarct is noted. Gated SPECT analysis: The gated ejection fraction is 82%. Conclusion: Normal pharmacologic myocardial perfusion stress test. Preserved ejection fraction.
[2025-04-15] MEDS: FLU VACCINE HIGH DOSE 25-26(65YR UP) 180 MCG/0.5 ML SYRINGE IM (13:56)
--- NOTE | 2025-04-15 13:57 | PCM.DC ---
Discharge Instructions DC O2, CPAP, BIPAP needs Home O2 Discharge instructions: No Dressing / Incision Discharge Activity: Return to Normal Activity Dressing / Incision Call your doctor if you observe: Fever of 101 or Higher, Shortness of breath, Dizziness, Fainting spells, Swelling in the ankles, Chest pain and Increased palpitations (irregular heartbeat) Follow Up Care Test Results: Test results from this visit will be discussed in further detail at your follow-up appointment, if applicable. Discharge Plan Admission Admit Date/Time: 04/14/25 15:49 Attending Provider: Ritchie Verduzco Primary Care Provider: Alicia Mata Consulting Providers: Koffi Ray Instructions Additional Instructions / Restrictions: Follow-up with your previous histological illustrator for managing your oxygen Discharge Orders/Prescriptions Prescriptions: Continued vitamin E (dl, acetate) 180 mg (400 unit) capsule 180 mg PO DAILY magnesium 250 mg tablet 250 mg PO DAILY furosemide 40 mg tablet 40 mg PO DAILY PRN (Reason: swelling) Dose Instruction: take 1 tablet by mouth once daily Rx Instructions: take 1 tablet by mouth once daily PRN folic acid 400 mcg tablet 0.4 mg PO QDAY selenium 200 mcg capsule 200 mcg PO QDAY metoprolol succinate 50 mg tablet extended release 24 hr 50 mg PO BID Qty: 180 3RF ascorbic acid (vitamin C) 500 mg capsule 1,000 mg PO BID coenzyme Q10 100 mg capsule 100 mg PO DAILY multivitamin Tablet 1 tab PO DAILY aspirin 81 MG tablet 81 mg PO DAILY@0800 Qty: 0 0RF clopidogrel 75 mg tablet 75 mg PO DAILY Rx Instructions: take 1 tablet by mouth once daily levothyroxine 88 mcg tablet 88 mcg PO DAILY amlodipine 10 mg tablet 10 mg PO DAILY Rx Instructions: pt states pcp told her to take bid nitroglycerin 0.4 mg tablet, sublingual 0.4 mg SUBLINGUAL Q5-15M PRN (Reason: chest pain) 10 Days Qty: 25 3RF losartan 50 mg tablet 50 mg PO DAILY Qty: 90 3RF isosorbide mononitrate 30 mg tablet extended release 24 hr 30 mg PO BID Qty: 180 3RF atorvastatin 40 mg tablet 40 mg PO DAILY Qty: 90 3RF Referrals / Follow Up: Alicia Mata, THERMIT WELDING MACHINE OPERATOR-C [Primary Care Provider, Family Practice] Disposition Disposition (needs filled in before D/C Order can be placed): Home, Self Care
--- NOTE | 2025-04-15 14:45 | DS.PCM_ITS ---
Providers Date of Admission: 04/14/25 Primary Care Physician: ARSALAN InmanC Reason For Visit: CHEST PAIN Diagnosis Discharge Diagnosis (1) Chest pain: Status: Acute Code(s): R07.9 - Chest pain, unspecified Medications at Discharge Home Medications multivitamin 1 tab PO DAILY vitamin 02/22/21 aspirin 81 mg tablet,delayed release 81 mg PO DAILY@0800 [facility] #0 tabs 02/27/21 nitroglycerin 0.4 mg sublingual tablet 0.4 mg sublingual Q5-15M PRN chest pain 10 days #25 tabs 03/01/21 magnesium 250 mg tablet 250 mg PO DAILY supplement 05/30/21 vitamin E (dl, acetate) 180 mg (400 unit) capsule 180 mg PO DAILY vitamin 05/30/21 ascorbic acid (vitamin C) 500 mg capsule 1,000 mg PO BID supplement 08/29/21 coenzyme Q10 100 mg capsule 100 mg PO DAILY supplement 08/29/21 furosemide 40 mg tablet 40 mg PO DAILY PRN swelling 12/30/22 folic acid 400 mcg tablet 0.4 mg PO QDAY supplement 05/12/24 selenium 200 mcg capsule 200 mcg PO QDAY Supplement 05/12/24 amlodipine 10 mg tablet 10 mg PO DAILY BP 09/06/24 levothyroxine 88 mcg tablet 88 mcg PO DAILY Thyroid 09/06/24 clopidogrel 75 mg tablet 75 mg PO DAILY heart 09/20/24 metoprolol succinate 50 mg tablet,extended release 24 hr 50 mg PO BID blood pressure #180 tabs 01/17/25 losartan 50 mg tablet 50 mg PO DAILY blood pressure #90 tabs 02/25/25 isosorbide mononitrate 30 mg tablet,extended release 24 hr 30 mg PO BID CAD #180 tabs 03/08/25 atorvastatin 40 mg tablet 40 mg PO DAILY Cholestrol #90 tabs 03/14/25 Hospital Course Operations None Procedures Stress test Summary of Care Provided Minutes Spent on Discharge: 31 Hospital Course: Per HPI: PRECIOUS LEIGH, is a 89 F who presented to [facility] ED on 04/14/2025 with dizziness/lightheadedness and chest discomfort. Medical history significant for CAD with extensive history of multiple stenting procedures between 2003 and 2020, s/p TAVR in 2023, chronic respiratory failure on 2 L nasal cannula, hypertension and hyperlipidemia. She follows with cardiology here, last office visit in January. She presented from home today with lightheadedness/dizziness and chest discomfort. Notes that she had lightheadedness shortly after waking up this morning. She had mild chest discomfort along with this radiating down to her left arm. She currently denies either of the symptoms at rest. In the ED she was hypertensive to the 150s to 160s systolic, was otherwise in normal sinus rhythm and stable on 2 L nasal cannula at rest. EKG showed normal sinus rhythm with no ischemic changes. Troponins negative x 2. BNP normal. Chest x-ray unremarkable. However, given her history as above, hospitalist was contacted for admission. I saw the patient at bedside in the ED. Patient was sitting back comfortably in bed, conversing normally, in no acute distress. Denied any lightheadedness or chest pain currently. Denied any other acute concerns at this time. Will be admitted for further management. Hospital Course: 1. Chest pain rule out/history of CAD status post stent/aortic stenosis status post TAVR/essential HTN/HLD?89-year-old female presented to the hospital with chest discomfort and lightheadedness that started on the day of admission. She has an extensive previous cardiac history so stress test was ordered which was nonischemic. Her troponins remained normal and her EKG was also nonischemic. On the day of discharge her chest pain had resolved and I discussed with her the possibility for going home and she and her expressed understanding of the risks and benefits of going home and would like to go today. She is on chronic oxygen after having pneumonia over the summer and so I recommend she follow-up with her previous general foundry worker who is seeing her for sarcoidosis. She can resume her home cardiac medications on discharge. 2. Hypothyroidism is a chronic medical condition which complicates her care. Her home medications were continued where appropriate Physical Exam Narrative General: Alert, Oriented x3, Cooperative, No apparent distress HEENT: Atraumatic, PERRLA, EOMI, Normocephalic Oral: Moist Mucosa Neck: Supple, No JVD Lungs: Diminished, Normal air movement, No rhonchi, No wheeze, No rales Cardiovascular: Regular rate, Regular Rhythm, Normal S1, Normal S2, No murmurs Abdomen: Soft, Non Tender, Non-Distended, No Hepato-splenomegaly Extremities: No edema, Capillary Refill Less than 3 Seconds Skin: No rashes, No breakdown Musculoskeletal: No Tenderness to Palpation of Joints or Extremities Neurological: No focal neurological deficits, moves all extremities just Psych/Mental Status: Normal Affect, Appropriate Weight / BMI Weight Weight: 158 lb 11.725 oz Body Mass Index (BMI) 28.0 ABG / Lab / Microbiology Data 04/15/25 04:39 04/15/25 04:39 Laboratory: Laboratory Results - last 24 hr 04/14/25 15:15: Troponin T Hi Sens 2 Hr 13 04/14/25 17:17: Troponin T Hi Sens 4Hr 14, TSH 0.402 04/15/25 04:39: WBC 6.9, RBC 3.56 L, Hgb 11.0 L, Hct 32.3 L, MCV 90.7, MCH 30.9, MCHC 34.1, RDW Std Deviation 47.9 H, RDW Coeff of Martha 14.2, Plt Count 207, MPV 10.1, Sodium 139, Potassium 4.1, Chloride 103, Carbon Dioxide 25.0, Anion Gap 11, BUN 14, Creatinine 0.85, Estim Creat Clear Calc 44.34 L, Est GFR (MDRD) Non- Af 67, BUN/Creatinine Ratio 16.1, Glucose 105 H, Calcium 9.1 D/C Instructions Call your doctor if you observe: Fever of 101 or Higher, Shortness of breath, Dizziness, Fainting spells, Swelling in the ankles, Chest pain and Increased palpitations (irregular heartbeat) DC O2, CPAP, BIPAP Needs Home O2 Discharge instructions: No Meaningful Use Info Meaningful Use Meaningful Use Diagnoses (Choose all that apply): None applicable Discharge Plan Admission Admit Date/Time: 04/14/25 15:49 Attending Provider: Ritchie Verduzco Primary Care Provider: Alicia Mata Consulting Providers: Koffi Ray Instructions Additional Instructions / Restrictions: Follow-up with your previous general foundry worker for managing your oxygen Discharge Orders/Prescriptions Prescriptions: Continued vitamin E (dl, acetate) 180 mg (400 unit) capsule 180 mg PO DAILY magnesium 250 mg tablet 250 mg PO DAILY furosemide 40 mg tablet 40 mg PO DAILY PRN (Reason: swelling) Dose Instruction: take 1 tablet by mouth once daily Rx Instructions: take 1 tablet by mouth once daily PRN folic acid 400 mcg tablet 0.4 mg PO QDAY selenium 200 mcg capsule 200 mcg PO QDAY metoprolol succinate 50 mg tablet extended release 24 hr 50 mg PO BID Qty: 180 3RF ascorbic acid (vitamin C) 500 mg capsule 1,000 mg PO BID coenzyme Q10 100 mg capsule 100 mg PO DAILY multivitamin Tablet 1 tab PO DAILY aspirin 81 MG tablet 81 mg PO DAILY@0800 Qty: 0 0RF clopidogrel 75 mg tablet 75 mg PO DAILY Rx Instructions: take 1 tablet by mouth once daily levothyroxine 88 mcg tablet 88 mcg PO DAILY amlodipine 10 mg tablet 10 mg PO DAILY Rx Instructions: pt states pcp told her to take bid nitroglycerin 0.4 mg tablet, sublingual 0.4 mg SUBLINGUAL Q5-15M PRN (Reason: chest pain) 10 Days Qty: 25 3RF losartan 50 mg tablet 50 mg PO DAILY Qty: 90 3RF isosorbide mononitrate 30 mg tablet extended release 24 hr 30 mg PO BID Qty: 180 3RF atorvastatin 40 mg tablet 40 mg PO DAILY Qty: 90 3RF Referrals / Follow Up: Alicia Mata, ECONOMICS PROFESSOR-C [Primary Care Provider, Family Practice] Disposition Disposition (needs filled in before D/C Order can be placed): Home, Self Care Charges/Coding Visit Charges Inpatient E&M: 18422 Disch Hosp >30min
== END 2025-04-15 14:50 | disposition home or self-care (01) ==
LOC: ED 15:53 → PCU 17:04
PROVIDERS: Admitting Provider Hospitalist; Emergency Provider Emergency Medicine; PCP Nurse Practitioner Family; Visit Provider Family Medicine
DX: R07.89 Other chest pain (principal); J96.11 Chronic respiratory failure with hypoxia; R42 Dizziness and giddiness; D86.0 Sarcoidosis of lung; I10 Essential (primary) hypertension; I25.2 Old myocardial infarction; I34.1 Nonrheumatic mitral (valve) prolapse; I35.1 Nonrheumatic aortic (valve) insufficiency; I35.0 Nonrheumatic aortic (valve) stenosis; I25.10 Atherosclerotic heart disease of native coronary artery without angina pectoris; E03.9 Hypothyroidism, unspecified; D64.9 Anemia, unspecified; E78.00 Pure hypercholesterolemia, unspecified; G47.33 Obstructive sleep apnea (adult) (pediatric); Z95.5 Presence of coronary angioplasty implant and graft; Z95.2 Presence of prosthetic heart valve; Z79.82 Long term (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 aspirin; Z79.890 Hormone replacement therapy; Z79.02 Long term (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 antithrombotics/antiplatelets; Z79.899 Other long term (current) drug therapy; Z90.49 Acquired absence of other specified parts of digestive tract; Z99.81 Dependence on supplemental oxygen
CPT/HCPCS: 36415; 71046; 78452; 80048; 83880; 84443; 84484; 85025; 85027; 85610; 85730; 93005; 93017; 96360; 99221; 99285; A9500; A4216; G0378; J2785